=== PATIENT | female | born 1955 | race Hispanic/Latino ===

== ENCOUNTER 2017-10-07 17:26 | Emergency (ER) | payer BC ==
[2017-10-07 17:49] VITALS: BMI 22.4
[2017-10-07 17:52] VITALS: TEMP 98.2; O2SAT 97
--- NOTE | 2017-10-07 18:29 | ED PDOC ---
Arrival/HPI <Frank Tristan - Last Filed: 10/07/17 18:29> - General Historian: Patient, Spouse - History of Present Illness Time/Duration: Prior to Arrival, 1-3 hours Symptom Onset: Sudden Symptom Course: Unchanged <Aiden Mercer - Last Filed: 10/08/17 07:19> - General Chief Complaint: Trauma Time Seen by Provider: 10/07/17 17:30 - History of Present Illness Narrative History of Present Illness (Text): 10/07/17 19:22 62F presents to [facility] ED after mechanical fall x 2 secondary to ETOH intoxication. First fall she lost front tooth, completely avulsed. Second fall Hit head. Denies loss of consciousness, or incontinence. Full ROM of neck, no midline tenderness. Able to converse in full sentences. Denies taking blood thinners, or medication that increases bleeding. PMD: Dr. Mae (Aiden Mercer) Past Medical History - Infectious Disease Hx of Infectious Diseases: None - Tetanus Immunization Tetanus Immunization: Unknown - Reproductive Menopause: Yes - Past Medical History Past Medical History: No Previous - Cardiac Hx Cardiac Disorders: No - Pulmonary Hx Respiratory Disorders: No - Neurological Hx Neurological Disorder: Yes - HEENT Hx HEENT Disorder: No - Renal Hx Renal Disorder: No - Endocrine/Metabolic Hx Endocrine Disorders: No - Hematological/Oncological Hx Blood Transfusions: Yes - Integumentary Hx Dermatological Disorder: No - Musculoskeletal/Rheumatological Hx Musculoskeletal Disorders: Yes Hx Arthritis: Yes Hx Back Pain: Yes (Upper back pain) Hx Degenerative Joint Disease: Yes Hx Falls: Yes Hx Fractures: Yes (10/27 Tibial Plateu Fracture 10/29 Fractured right hip, hip replacement.) Hx Gout: No Hx Herniated Disk: Yes (T7-8 right paracentral disc protrusion, c5-6 disk bulge) Hx Osteoarthritis: Yes Hx Osteomyelitis: No Hx Osteoporosis: Yes Hx Rhabdomyolysis: No Hx Spinal Stenosis: Yes Hx Unsteady Gait: No Other/Comment: 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 - Genitourinary/Gynecological Hx Genitourinary Disorders: No - Psychiatric Hx Psychophysiologic Disorder: No Hx Substance Use: No - Surgical History Hx Amputation: No Hx Appendectomy: No Hx Cholecystectomy: No Hx Gastric Bypass Surgery: No Hx Hysterectomy: No Hx Joint Replacement: No Hx Kidney Transplant: No Hx Liver Transplant: No Hx Mastectomy: No Hx Musculoskeletal Surgery: No Hx Open Heart Surgery: No Hx Orthopedic Surgery: No Hx Splenectomy: No Hx Valve Replacement: No - Anesthesia Hx Anesthesia Reactions: No Hx Malignant Hyperthermia: No - Suicidal Assessment Feels Threatened In Home Enviroment: No <Frank Tristan Floyd - Last Filed: 10/07/17 18:29> - Provider Review Nursing Documentation Reviewed: Yes - Travel History Have you recently traveled outside [place] w/in the past 3 mons?: No - Past History Past History: Non-Contributing <Aiden Mercer - Last Filed: 10/08/17 07:19> Family/Social History Smoking Status: Light Smoker < 10 Cigarettes Daily Hx Alcohol Use: Yes Amount per day: 10 Hx Substance Use: No Hx Substance Use Treatment: No <Frank Tristan - Last Filed: 10/07/17 18:29> - Physician Review Nursing Documentation Reviewed: Yes Family/Social History: Other (non-contributory) <Aiden Mercer - Last Filed: 10/08/17 07:19> Allergies/Home Meds <Frank Tristan Floyd - Last Filed: 10/07/17 18:29> <Aiden Mercer - Last Filed: 10/08/17 07:19> Allergies/Adverse Reactions: Allergies Penicillins Allergy (Verified 10/07/17 17:33) RASH Review of Systems - Physician Review All systems were reviewed & negative as marked: Yes - Review of Systems Constitutional: absent: Fatigue, Weight Change, Fevers, Night Sweats Eyes: absent: Vision Changes, Photophobia ENT: absent: Hearing Changes, Tinnitus, TMJ Pain, Sore Throat, Rhinorrhea Respiratory: absent: SOB, Cough Cardiovascular: absent: Chest Pain, Palpitations Gastrointestinal: absent: Abdominal Pain, Stool Changes, Constipation Genitourinary Female: absent: Dysuria, Frequency Musculoskeletal: absent: Arthralgias, Back Pain Skin: absent: Rash, Pruritis Neurological: absent: Headache, Dizziness, Focal Weakness, Speech Changes Endocrine: absent: Diaphoresis <Aiden Mercer - Last Filed: 10/08/17 07:19> Physical Exam Vital Signs Reviewed: Yes Temperature: Afebrile Blood Pressure: Normal Pulse: Regular Respiratory Rate: Normal Appearance: Positive for: Well-Appearing, Non-Toxic, Comfortable Pain Distress: None Mental Status: Positive for: Alert and Oriented X 3 - Systems Exam Head: Present: Laceration (x2 over left palpebral fissure) Pupils: Present: PERRL Extroacular Muscles: Present: EOMI Mouth: Present: Moist Mucous Membranes, Other (Missing 2 teeth). No: Drooling, Trismus, Normal Teeth Respiratory/Chest: Present: Clear to Auscultation, Good Air Exchange. No: Respiratory Distress, Accessory Muscle Use Cardiovascular: Present: Regular Rate and Rhythm, Normal S1, S2. No: Murmurs, Tachycardic, Bradycardic Abdomen: No: Tenderness, Distention, Peritoneal Signs Back: Present: Normal Inspection. No: CVA Tenderness, Midline Tenderness, Paraspinal Tenderness Upper Extremity: Present: Normal Inspection, NORMAL PULSES, Neurovascularly Intact. No: Cyanosis, Edema Lower Extremity: Present: Normal Inspection, Edema, Normal ROM, Neurovascularly Intact. No: CALF TENDERNESS, Mica's Sign Neurological: Present: GCS=15, Speech Normal Skin: Present: Warm, Laceration (over left palpebral fissure). No: Rashes Psychiatric: Present: Alert, Oriented x 3 <Aiden Mercer - Last Filed: 10/08/17 07:19> Vital Signs Temp Pulse Resp BP Pulse Ox 10/07/17 21:30 69 18 132/70 97 10/07/17 17:50 98.2 F 72 22 128/74 97 Medical Decision Making <Frank Tristan - Last Filed: 10/07/17 18:29> <Aiden Mercer - Last Filed: 10/08/17 07:19> ED Course and Treatment: Seen and examined with resident. 62 y/o F p/w mechanical falls after alcohol use. On exam, laceration over L eyebrow. (Frank Tristan) CT scan of head and Maxillofacial to rule out fx Suture laceration x2 w/ 6-0 prolene w/ simple interruped and 1 vertical mattress Reval, reassess, and dispo Patient and case was discussed in detail, and was signed out to the night EM Physician (Aiden Mercer) - RAD Interpretation Radiology Orders: 10/07/17 18:23 HEAD W/O CONTRAST [CT] Stat MAXILLOFACIAL W/O CONTRAST [CT] Stat - Medication Orders Current Medication Orders: Discontinued Medications Clindamycin HCl (Cleocin) 150 mg PO STAT STA PRN Reason: Protocol Stop: 10/07/17 20:56 Last Admin: 10/07/17 21:20 Dose: 150 mg Disposition/Present on Arrival - Present on Arrival History of DVT/PE: No History of Uncontrolled Diabetes: No Urinary Catheter: No History of Decub. Ulcer: No History Surgical Site Infection Following: None <Frank Tristan - Last Filed: 10/07/17 18:29> - Present on Arrival Any Indicators Present on Arrival: No - Disposition Have Diagnosis and Disposition been Completed?: Yes Disposition Time: 19:00 <Aiden Mercer - Last Filed: 10/08/17 07:19> - Disposition Diagnosis: Facial laceration, Maxillary sinus fracture Disposition: HOME/ ROUTINE Condition: GOOD Discharge Instructions (ExitCare): Laceration Repair With Stitches (DC), Skull and Facial Fractures (DC) Additional Instructions: Take meds as prescribed/follow up with the ear/nose/throat doctor this week/ Sutures to be removed in 5-7 days by your doctor/follow up with your dentist this week as well Prescriptions: Clindamycin [Clindamycin HCl] 150 mg PO QID #28 cap Referrals: Usha Scott, [Primary Care Provider] - Follow up with primary Forms: [employer] (Tuvaluan)
--- NOTE | 2017-10-07 19:34 | PCM.PROC ---
Procedures Attestation:: I certify that I have explained the specified Operation(s) or Procedure(s), risks, benefits and reasonable alternatives to the Patient and/or other person responsible. The opportunity was given to ask questions and all questions answered - Laceration lidocaine 1% simple, single layer linear wound explored left face 6-0 local infiltration simple, interrupted Site: face Side (if applicable): left Size (cm): 5 Description: linear, clean Depth: simple, single layer Anesthesia used: lidocaine 1% Anesthesia technique: local infiltration Amount (mLs): 5 Pre-repair: wound explored, irrigated extensively, deep structures intact Skin layer closed with: other (Prolene) Size: 6-0 Number of sutures: 6 Technique: simple, interrupted (5 simple interruped, 1 vertical mattress)
--- NOTE | 2017-10-07 19:51 | ED PDOC ---
Physical Exam Vital Signs Reviewed: Yes Vital Signs Temp Pulse Resp BP Pulse Ox 10/07/17 17:50 98.2 F 72 22 128/74 97 Temperature: Afebrile Blood Pressure: Normal Pulse: Regular Respiratory Rate: Normal Appearance: Positive for: Well-Appearing, Non-Toxic, Comfortable Pain Distress: None Mental Status: Positive for: Alert and Oriented X 3 Medical Decision Making ED Course and Treatment: 10/07/17 19:48 Patient endorsed to me by Dr. Tristan and resident at 19:00, pending CT head and maxillofacial. Patient presented with trauma to face/head result of a mechanical fall. Patient sustained a laceration which was repaired earlier by resident. Patient admits to drinking alcohol today. She is accompanied by her in the emergency room. On evaluation, patient is alert and oriented. Plan is to discharge home following results of CT which were previously ordered and pending. 10/07/17 21:00 CT Head shows: Brain: Unremarkable. No hemorrhage. No significant white matter disease. No edema. Ventricles: Unremarkable. No ventriculomegaly. Bones/joints: Unremarkable. No acute fracture. Soft tissues: Unremarkable. Sinuses: Unremarkable as visualized. No acute sinusitis. Mastoid air cells: Unremarkable as visualized. No mastoid effusion. Other findings: No acute findings. IMPRESSION: No acute findings. CT Maxillofacial shows: Bones/joints: There is a fracture involving the lateral wall of the left maxillary sinus with slight opacification Soft tissues: Unremarkable. Orbits: Coronal images are not available to evaluate the inferior wall of the orbit. Sinuses: No air-fluid levels. IMPRESSION: There is a fracture involving the lateral wall of the left maxillary sinus with slight opacification. No definite evidence of left inferior orbital wall fracture. On re-evaluation, patient feels better and is in no acute distress. Pt awake, alert, and oriented x3. I have discussed the results and plan with the patient and , who are aware and express understanding. Patient in agreement with plan to be discharged home. Patient is stable for discharge. Patient was instructed to follow up with physician or return if symptoms worsen or new concerning symptoms arise. - RAD Interpretation Radiology Orders: 10/07/17 18:23 HEAD W/O CONTRAST [CT] Stat MAXILLOFACIAL W/O CONTRAST [CT] Stat - Medication Orders Current Medication Orders: Clindamycin HCl (Cleocin) 150 mg PO STAT STA PRN Reason: Protocol Stop: 10/07/17 20:56 Disposition/Present on Arrival - Present on Arrival Any Indicators Present on Arrival: No History of DVT/PE: No History of Uncontrolled Diabetes: No Urinary Catheter: No History of Decub. Ulcer: No History Surgical Site Infection Following: None - Disposition Have Diagnosis and Disposition been Completed?: Yes Diagnosis: Facial laceration, Maxillary sinus fracture Disposition: HOME/ ROUTINE Disposition Time: 20:58 Patient Plan: Discharge Condition: GOOD Discharge Instructions (ExitCare): Laceration Repair With Stitches (DC), Skull and Facial Fractures (DC) Additional Instructions: Take meds as prescribed/follow up with the ear/nose/throat doctor this week/ Sutures to be removed in 5-7 days by your doctor/follow up with your dentist this week as well Prescriptions: Clindamycin [Clindamycin HCl] 150 mg PO QID #28 cap Referrals: LoopItmelvin Scott, [Non-Staff] - Follow up with primary Forms: [employer] (Djiboutian)
[2017-10-07 23:35] VITALS: BP 132/70; PULSE 69; RESP 18
--- NOTE | 2017-10-08 09:13 | CT ---
PROCEDURE: CT HEAD WITHOUT CONTRAST. HISTORY: fall COMPARISON: CT 08/11/2013 TECHNIQUE: Axial computed tomography images were obtained through the head/brain without intravenous contrast. Radiation dose: Total exam DLP = 882 mGy-cm. This CT exam was performed using one or more of the following dose reduction techniques: Automated exposure control, adjustment of the mA and/or kV according to patient size, and/or use of iterative reconstruction technique. FINDINGS: HEMORRHAGE: No intracranial hemorrhage. BRAIN: No mass effect or edema. No atrophy or chronic microvascular ischemic changes. VENTRICLES: Unremarkable. No hydrocephalus. CALVARIUM: Unremarkable. PARANASAL SINUSES: Unremarkable as visualized. No significant inflammatory changes. MASTOID AIR CELLS: Unremarkable as visualized. No inflammatory changes. OTHER FINDINGS: None. IMPRESSION: Normal CT of the Head.
--- NOTE | 2017-10-08 09:16 | CT ---
PROCEDURE: CT MAXILLOFACIAL BONES WITHOUT CONTRAST HISTORY: fall COMPARISON: None TECHNIQUE: Contiguous axial CT images of the maxillofacial bones were obtained. Coronal and sagittal reformats were generated. Radiation dose: Total exam DLP = 778 mGy-cm. This CT exam was performed using one or more of the following dose reduction techniques: Automated exposure control, adjustment of the mA and/or kV according to patient size, and/or use of iterative reconstruction technique. FINDINGS: NASAL BONES: Unremarkable. ORBITS: Unremarkable. PARANASAL SINUSES/ MASTOIDS: Clear. MAXILLA: There is a minimally displaced fracture of the lateral wall of the left maxillary sinus MANDIBLE/ TEMPOROMANDIBULAR JOINTS: Unremarkable. SKULL BASE: Unremarkable. TEMPORAL BONES: Middle ears and mastoid grossly unremarkable. OTHER FINDINGS: The report concurs with the preliminary [facility] report IMPRESSION: Minimally displaced fracture of the lateral wall of the left maxillary sinus
== END 2017-10-07 21:30 | disposition home or self-care (01) ==
LOC: ED 17:26
DX: S01.81XA Laceration without foreign body of other part of head, initial encounter (principal); S02.40DA Maxillary fracture, left side, initial encounter for closed fracture; W19.XXXA Unspecified fall, initial encounter; F17.210 Nicotine dependence, cigarettes, uncomplicated

== ENCOUNTER 2017-10-14 10:21 | Emergency (ER) | payer BC, MEDICARE ==
[2017-10-14 10:21] VITALS: BMI 25.2
[2017-10-14 10:35] VITALS: PULSE 78; RESP 18; TEMP 98.3
--- NOTE | 2017-10-14 11:11 | ED PDOC ---
Arrival/HPI - General Chief Complaint: Suture/Staple Removal Time Seen by Provider: 10/14/17 10:30 Historian: Patient - History of Present Illness Narrative History of Present Illness (Text): 10/14/17 11:08 62yr old female presents today for suture removal from left eyebrow. pt states 7 days ago she tripped and fell injuring the left eye brow. pt states she had sutures placed. pt denies headaches, dizziness, weakness. no cp or sob. denies fever/chills. no other complaints. Past Medical History - Provider Review Nursing Documentation Reviewed: Yes - Travel History Have you recently traveled outside [place] w/in the past 3 mons?: No - Past History Past History: Non-Contributing - Infectious Disease Hx of Infectious Diseases: None - Tetanus Immunization Tetanus Immunization: Unknown - Reproductive Menopause: Yes - Past Medical History Past Medical History: No Previous - Cardiac Hx Cardiac Disorders: No - Pulmonary Hx Respiratory Disorders: No - Neurological Hx Neurological Disorder: Yes - HEENT Hx HEENT Disorder: No - Renal Hx Renal Disorder: No - Endocrine/Metabolic Hx Endocrine Disorders: No - Hematological/Oncological Hx Blood Transfusions: Yes - Integumentary Hx Dermatological Disorder: No - Musculoskeletal/Rheumatological Hx Musculoskeletal Disorders: Yes Hx Arthritis: Yes Hx Back Pain: Yes (Upper back pain) Hx Degenerative Joint Disease: Yes Hx Falls: Yes Hx Fractures: Yes (10/27 Tibial Plateu Fracture 10/29 Fractured right hip, hip replacement.) Hx Gout: No Hx Herniated Disk: Yes (T7-8 right paracentral disc protrusion, c5-6 disk bulge) Hx Osteoarthritis: Yes Hx Osteomyelitis: No Hx Osteoporosis: Yes Hx Rhabdomyolysis: No Hx Spinal Stenosis: Yes Hx Unsteady Gait: No Other/Comment: 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 - Genitourinary/Gynecological Hx Genitourinary Disorders: No - Psychiatric Hx Psychophysiologic Disorder: No Hx Substance Use: No - Surgical History Hx Amputation: No Hx Appendectomy: No Hx Cholecystectomy: No Hx Gastric Bypass Surgery: No Hx Hysterectomy: No Hx Joint Replacement: No Hx Kidney Transplant: No Hx Liver Transplant: No Hx Mastectomy: No Hx Musculoskeletal Surgery: No Hx Open Heart Surgery: No Hx Orthopedic Surgery: No Hx Splenectomy: No Hx Valve Replacement: No - Anesthesia Hx Anesthesia Reactions: No Hx Malignant Hyperthermia: No - Suicidal Assessment Feels Threatened In Home Enviroment: No Family/Social History - Physician Review Nursing Documentation Reviewed: Yes Family/Social History: Unknown Family HX Smoking Status: Light Smoker < 10 Cigarettes Daily Hx Alcohol Use: Yes Amount per day: 10 Hx Substance Use: No Hx Substance Use Treatment: No Allergies/Home Meds Allergies/Adverse Reactions: Allergies Penicillins Allergy (Verified 10/14/17 10:35) RASH Review of Systems - Review of Systems Constitutional: absent: Fatigue, Fevers Eyes: absent: Vision Changes Respiratory: absent: SOB, Cough Cardiovascular: absent: Chest Pain Gastrointestinal: absent: Abdominal Pain, Nausea, Vomiting Skin: Laceration Neurological: absent: Headache, Dizziness Physical Exam Vital Signs Reviewed: Yes Vital Signs Temp Pulse Resp BP Pulse Ox 10/14/17 10:30 98.3 F 78 18 133/79 96 Temperature: Afebrile Blood Pressure: Normal Pulse: Regular Respiratory Rate: Normal Appearance: Positive for: Well-Appearing, Non-Toxic, Comfortable Pain Distress: None Mental Status: Positive for: Alert and Oriented X 3 - Systems Exam Head: Present: Ecchymosis, Laceration (healing laceration over left eyebrow with [address] ). No: Swelling Extroacular Muscles: Present: EOMI Mouth: Present: Moist Mucous Membranes Respiratory/Chest: Present: Clear to Auscultation Cardiovascular: Present: Regular Rate and Rhythm Neurological: Present: GCS=15, Speech Normal Skin: Present: Warm, Dry Psychiatric: Present: Alert, Oriented x 3 Medical Decision Making ED Course and Treatment: 10/14/17 11:10 Patient is nontoxic well-appearing in no distress. Vital signs are stable. suture removal: 6 sutures removed Wound healing well without signs of infection I advised the patient to keep the wound clean and dry apply bacitracin twice daily and return if symptoms worsen persist or if new symptoms develop pt was advised to f/u with the plastic surgeon within the next 2 days. Patient verbalizes understanding of discharge instructions and need for immediate followup. all aspects of this case were discussed the attending of record. Impression: Wound check, suture removal Keep the wound clean and dry Follow up with the plastic surgeon within the next 2 days. Follow up with primary care physician within the next 2 days Return immediately if symptoms worsen persist or if new symptoms develop Disposition/Present on Arrival - Present on Arrival Any Indicators Present on Arrival: No History of DVT/PE: No History of Uncontrolled Diabetes: No Urinary Catheter: No History of Decub. Ulcer: No History Surgical Site Infection Following: None - Disposition Have Diagnosis and Disposition been Completed?: Yes Diagnosis: Visit for suture removal Disposition: HOME/ ROUTINE Disposition Time: 11:25 Patient Plan: Discharge Condition: GOOD Discharge Instructions (ExitCare): Stitches Removal Additional Instructions: keep the wound clean and dry Follow up with the plastic surgeon within the next 2 days. Follow up with primary care physician within the next 2 days Return immediately if symptoms worsen persist or if new symptoms develop Referrals: Zane Bass MD [Primary Care Provider] - Follow up with primary Randy Herron MD [Staff Provider] - Follow up with primary Forms: [employer] (Portuguese)
[2017-10-14 11:33] VITALS: BP 132/78; O2SAT 98
== END 2017-10-14 11:34 | disposition home or self-care (01) ==
LOC: ED 10:21
DX: Z48.02 Encounter for removal of sutures (principal)

== ENCOUNTER 2018-03-21 13:55 | Inpatient (IN) | payer BC, MEDICARE ==
--- NOTE | 2018-03-21 14:04 | ED PDOC ---
Arrival/HPI - General Chief Complaint: Weakness/Neurological Deficit Time Seen by Provider: 03/21/18 13:56 Historian: EMS EM Caveat: Acuity of Condition - Critical Care Critical Care Minutes: 60 minutes Critical Care Time: Unstable - History of Present Illness Narrative History of Present Illness (Text): 03/21/18 13:55 A 62 y/o F w/ h/o alcohol cirrhosis , esophageal varices, spinal stenosis, arthritis, degenerative joint disease, and osteoporosis, is brought in by EMS to the emergency department for altered mental status. Patient was at home when her described her as suddenly becoming unresponsive with complete body convulsions that lasted for approximately 1 minute. Afterwards, patient remained unresponsive to verbal and tactile stimuli with a prolonged post-ictal period. Per EMS, the call was received at 13:10 at the time ti. EMS arrived at patient's home at 13:15 and got patient at 13:35. Patient arrives in the ER at approximately 13:54, and immediately code stroke is called. A more complete HPI is unable to be obtained due to the patient's clinical condition PMD: Dr. Bass Time/Duration: 1/2 hour Symptom Onset: Sudden Symptom Course: Worsening Quality: Unable to Describe Context: Home Past Medical History - Provider Review Nursing Documentation Reviewed: Yes - Travel History Have you recently traveled outside [place] w/in the past 3 mons?: No - Past History Past History: Non-Contributing - Infectious Disease Hx of Infectious Diseases: None - Tetanus Immunization Tetanus Immunization: Unknown - Reproductive Menopause: Yes - Past Medical History Past Medical History: No Previous - Cardiac Hx Cardiac Disorders: No - Pulmonary Hx Respiratory Disorders: No - Neurological Hx Neurological Disorder: Yes - HEENT Hx HEENT Disorder: No - Renal Hx Renal Disorder: No - Endocrine/Metabolic Hx Endocrine Disorders: No - Hematological/Oncological Hx Blood Transfusions: Yes - Integumentary Hx Dermatological Disorder: No - Musculoskeletal/Rheumatological Hx Musculoskeletal Disorders: Yes Hx Arthritis: Yes Hx Back Pain: Yes (Upper back pain) Hx Degenerative Joint Disease: Yes Hx Falls: Yes Hx Fractures: Yes (10/27 Tibial Plateu Fracture 10/29 Fractured right hip, hip replacement.) Hx Gout: No Hx Herniated Disk: Yes (T7-8 right paracentral disc protrusion, c5-6 disk bulge) Hx Osteoarthritis: Yes Hx Osteomyelitis: No Hx Osteoporosis: Yes Hx Rhabdomyolysis: No Hx Spinal Stenosis: Yes Hx Unsteady Gait: No Other/Comment: 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 - Genitourinary/Gynecological Hx Genitourinary Disorders: No - Psychiatric Hx Psychophysiologic Disorder: No Hx Substance Use: No - Surgical History Hx Amputation: No Hx Appendectomy: No Hx Cholecystectomy: No Hx Gastric Bypass Surgery: No Hx Hysterectomy: No Hx Joint Replacement: No Hx Kidney Transplant: No Hx Liver Transplant: No Hx Mastectomy: No Hx Musculoskeletal Surgery: No Hx Open Heart Surgery: No Hx Orthopedic Surgery: No Hx Splenectomy: No Hx Valve Replacement: No - Anesthesia Hx Anesthesia Reactions: No Hx Malignant Hyperthermia: No - Suicidal Assessment Feels Threatened In Home Enviroment: No Family/Social History - Physician Review Nursing Documentation Reviewed: Yes Family/Social History: No Known Family HX Smoking Status: Light Smoker < 10 Cigarettes Daily Hx Alcohol Use: Yes Amount per day: 10 Hx Substance Use: No Hx Substance Use Treatment: No Allergies/Home Meds Allergies/Adverse Reactions: Allergies Penicillins Allergy (Verified 03/21/18 13:59) RASH Home Medications: Home Meds Medication Instructions Recorded Confirmed Omeprazole [Omeprazole] 40 mg PO DAILY 03/21/18 03/21/18 Review of Systems - Review of Systems Systems not reviewed;Unavailable: Altered Mental Status (unresponsive verbally due to possible stroke or seizure) Physical Exam - Physical Exam Physical Exam Limitations: Altered Mental Status (patient is verbally unresponsive at this time upon arrival to ER at 13:54) Vital Signs Reviewed: Yes Vital Signs Temp Pulse Resp BP Pulse Ox 03/21/18 14:30 110 H 19 115/77 100 03/21/18 14:22 112 H 19 141/76 100 03/21/18 14:15 101 H 22 169/96 H 100 03/21/18 13:56 96.0 F L 95 H 22 182/95 H 100 Blood Pressure: Hypertensive Respiratory Rate: Normal Appearance: Positive for: Other (unresponsive) Mental Status: Positive for: other (unresponsive to verbal and tactile stimuli) Finger Stick Blood Glucose: 123 - Systems Exam Pupils: Present: Sluggish, Other (3mm b/l) Respiratory/Chest: Present: Clear to Auscultation, Good Air Exchange. No: Respiratory Distress Cardiovascular: Present: Regular Rate and Rhythm, Normal S1, S2 Abdomen: Present: Normal Bowel Sounds. No: Tenderness, Distention Lower Extremity: Present: Normal Inspection. No: Edema Neurological: Present: Other (Aphasic. Rhythmic beating of the eyes b/l. Minimally responsive to noxious stimuli, no response to verbal stimuli. Moves lower extremities spontaneously) Medical Decision Making ED Course and Treatment: 03/21/18 13:59 Impression: 62 year old female with possible stroke. Differential Diagnosis included but are not limited to: CVA vs. Seizure Plan: --Labs -- EKG --Head CT --Keppra --ABG -- CXR -- Labs -- Ativan --Versed drip -- IV Fluids -- Reassess and disposition Progress Notes: 03/21/18 13:54 Code stroke called at this time upon immediate arrival to the ER. 03/21/18 14:[address] Case discussed with Dr. Nicholas, who believes it is not a stroke but rather a seizure. Requests to be updated about patient. 03/21/18 14:10 Patient arrives immediately back to the ER after CT Head, which reveals hemorrhagic posterior bleed, no midline shift upon interpretation. Awaiting full report. 03/21/18 14:15 Blood pressure is currently 182/95 here in the ER. Cardene drip will be ordered in order to maintain SBP below 140. PROCEDURE: INTUBATION Performed by the emergency provider Time: 14:19 Consent: Discussion of the risks, benefits, and alternatives to the procedure, along with informed consent was precluded by the urgency of the procedure and the patient condition. Timeout: A timeout to verify the correct patient, procedure, and site was performed. Indication: Airway Protection Pre-oxygenation: [id number] Medications: Etomidate & Rocuronium See MAR for details. ETT Size: 7.5 Confirmation: Cords directly visualized as tube passed, good bilateral breath sounds, positive CO2 detector color change, tube fogging, adequate chest rise, improving pulse oximetry reading, improved skin color, and absence of gastric sounds,. ETT Secured: The cuff was inflated and the tube was secured appropriately at a distance of 22 cm at the lip. Post-Procedure: There were no immediate complications. CXR Confirmation: Yes 03/21/2018 14:[address] FINDINGS: BRAIN: Hemorrhage is noted within the medial left occipital lobe measuring approximately 2.8 x 2.8 cm (series 4, image 33) with associated edema/necrosis. This finding exerts mass effect on the atrium of the ventricles anterior laterally. No additional hemorrhage evident. VENTRICLES: No hydrocephalus. CALVARIUM: Unremarkable. PARANASAL SINUSES: Unremarkable as visualized. No significant inflammatory changes. MASTOID AIR CELLS: Unremarkable as visualized. No inflammatory changes. OTHER FINDINGS: None. IMPRESSION: Hemorrhage is noted within the medial left occipital lobe measuring approximately 2.8 x 2.8 cm with associated edema/necrosis. This finding exerts mass effect on the atrium of the ventricles anterior laterally. Location of this hemorrhage is atypical for hypertensive hemorrhage. Considerations include atypical hypertensive hemorrhage, underlying vascular lesion, hemorrhagic tumor is considered less likely. Dictator: Roopa Carreon MD 03/21/18 14:25 Blood pressure now 141/76. Will hold off on Cardene drip for now. 03/21/18 14:[address] Nicholas(neurology), who requests to order MRI w/ and w/ out contrast. He believes bleed may have been caused by mass in the brain, given the vasogenic edema and swelling. He requests patient to receive Keppra 1.5 g given now, 500 q 12hrs. Neurosurgery and ICU have been paged. 03/21/18 14:30 Urinalysis ordered. 03/21/18 14:30 Patient placed under ventilator by respiratory therapist. 03/21/18 14:[address] Samantha Byers(ICU attending) who will come to see patient at bedside. 03/21/18 14:39 Case discussed with neurosurgeon, who states he has no acute surgical interventions available at this time. States to keep patients head elevated 30 degrees. Agrees with critical care management for the patient here in the emergency department at this time. 03/21/18 14:45 Donahue catheter insertion ordered. 03/21/18 14:59 Dr. Samantha Byers, ICU attending, arrives to evaluate patient at bedside. 03/21/18 15:07 Chest X-ray IMPRESSION: The endotracheal tube terminates approximately 3.7 cm above the zahra. Chronic interstitial markings. Patchy left lower lobe atelectasis/infiltrate. Biapical pleural thickening. Dictator: Roopa Carreon MD 03/21/18 15:13 Discussed plan of treatment of patient with Dr. Samantha Byers while here in the ER , and he agrees to accept patient for ICU admission. 03/21/18 15:17 ABG reviewed. Requested respiratory therapist to bring it down to 50% O2 level. 03/21/18 15:[address] Bass(PCP). 03/21/18 16:[address] Bass who accepts patient under his service. Dr. Nicholas at the bedside requesting Versed drip to be titrated to 5mg/hr. - Lab Interpretations Lab Results: 03/21/18 13:55 03/21/18 13:55 Lab Results 03/21/18 14:53: pCO2 35, pO2 497.0 H, HCO3 22.7, ABG pH 7.42, ABG Total CO2 23.8 , ABG O2 Saturation 100.4 H, ABG O2 Content 17.6, ABG Base Excess -1.3, ABG Hemoglobin 11.9, ABG Carboxyhemoglobin 2.2 H, POC ABG HHb (Measured) -0.4 L, ABG Methemoglobin 0.9, ABG O2 Capacity 17.5, Hgb O2 Saturation 97.2, FiO2 100.0 03/21/18 14:30: Urine Color Yellow, Urine Appearance Clear, Urine pH 6.0, Ur Specific [place] 1.025, Urine Protein 100 H, Urine Glucose (UA) Negative, Urine Ketones Negative, Urine Blood Negative, Urine Nitrate Negative, Urine Bilirubin Negative, Urine Urobilinogen 1.0 H, Ur Leukocyte Esterase Negative, Urine RBC 0 - 2, Urine WBC 1 - 3, Ur Epithelial Cells 4 - 5, Amorphous Sediment Few, Urine Bacteria Many, Hyaline Casts 0 - 2, Fine Granular Casts 0 - 2, Urine Other Uyeast 03/21/18 13:55: Blood Type O POSITIVE, Antibody Screen Negative, BBK History Checked Patient has bt 03/21/18 13:55: Sodium 142, Potassium 4.2, Chloride 107, Carbon Dioxide 22, Anion Gap 16, BUN 5 L, Creatinine 0.5 L, Est GFR ( Amer) > 60, Est GFR ( Non-Af Amer) > 60, Random Glucose 153 H, Calcium 8.6, Total Bilirubin 3.4 H, AST 92 H, ALT 32, Alkaline Phosphatase 205 H, Troponin I < 0.01, Total Protein 8.7 H, Albumin 3.7, Globulin 5.0, Albumin/Globulin Ratio 0.7 L, Triglycerides 100, Cholesterol 175, LDL Cholesterol Direct 78, HDL Cholesterol 55 03/21/18 13:55: PT 16.4 H, INR 1.43, APTT 37.5 H 03/21/18 13:55: WBC 6.7 D, RBC 4.10, Hgb 13.1, Hct 38.9, MCV 94.9, MCH 32.0, MCHC 33.7, RDW 16.0 H, Plt Count 75 L, MPV 10.4, Gran % 65.3, Lymph % (Auto) 22.3, [place] % (Auto) 9.5 H, Eos % (Auto) 2.3, Baso % (Auto) 0.6, Gran # 4.35, Lymph # (Auto) 1.5, [place] # (Auto) 0.6, Eos # (Auto) 0.2, Baso # (Auto) 0.04 I have reviewed the lab results: Yes - RAD Interpretation Radiology Orders: 03/21/18 13:59 CTA HEAD/NECK CODE STROKE [CT] Stat HEAD W/O (CODE STROKE) [CT] Stat CHEST PORTABLE [RAD] Stat - Medication Orders Current Medication Orders: Sodium Chloride (Sodium Chloride 0.9%) 1,000 mls @ 100 mls/hr IV .Q10H STEVEN Last Admin: 03/21/18 14:29 Dose: 100 mls/hr eMAR Start Stop Document 03/21/18 14:29 SRE (Rec: 03/21/18 14:29 SRE [id number]) Intravenous Solution Start Date 03/21/18 Start Time 14:29 Midazolam 100 mg/100ml in NS (Midazolam 100 Mg/100ml In Ns) 100 mg in 100 mls @ 1 mls/hr IV .Q24H PRN; Protocol; 1 MG/HR PRN Reason: Seizure activity Levetiracetam 500 mg/ Sodium (Chloride) 105 mls @ 460 mls/hr IV Q12 STEVEN Discontinued Medications Levetiracetam 1,500 mg/ Sodium (Chloride) 115 mls @ 460 mls/hr IV ONCE ONE Stop: 03/21/18 14:41 Last Admin: 03/21/18 15:18 Dose: 460 mls/hr eMAR Start Stop Document 03/21/18 15:18 SRE (Rec: 03/21/18 15:18 SRE [id number]) Intravenous Solution Start Date 03/21/18 Start Time 15:00 End Date 03/21/18 End time 16:00 Total Infusion Time 60 Dexamethasone 10 mg/ Sodium (Chloride) 52.5 mls @ 150 mls/hr IV ONCE ONE Stop: 03/21/18 14:50 Last Admin: 03/21/18 15:02 Dose: 150 mls/hr eMAR Start Stop Document 03/21/18 15:02 SRE (Rec: 03/21/18 15:03 SRE [id number]) Intravenous Solution Start Date 03/21/18 Start Time 15:00 End Date 03/21/18 End time 15:30 Total Infusion Time 30 Lorazepam (Ativan) 2 mg IVP ONCE ONE PRN Reason: Protocol Stop: 03/21/18 14:06 Last Admin: 03/21/18 14:32 Dose: Lorazepam (Ativan) 2 mg IVP ONCE ONE PRN Reason: Protocol Stop: 03/21/18 15:38 rTPA Inclusion/Exclusion - Refusal of Treatment Patient Refused Treatment: No - Inclusion Criteria for Altepase Patient is 18 years or Older: Yes The Clinical Diagnosis of Ischemic Stroke That is Causing a Potentially Disabling Neurological Deficit: No Time of Onset is Well Established to be Less Than 270 Minute Before Treatment Would Begin: Yes Risk/Benefit Discussed With Patient/Family Member Present: Yes - Exclusion Criteria for Altepase Uncontrolled Hypertension at Time of Treatment (Systolic BP above 185 or Diastolic BP above 110 mmHg): Yes Active Internal Bleeding: Yes Known Bleeding Diathesis Including but Not Limited to: Platelets Below 100,000/ mm,PTT Above 40 sec After Heparin Use, Current Use of Oral Anitcoagulant With INR Greater Than 1.7 or PT Greater Than 15 secs: No Evidence of an Intracranial Hemorrhage: Yes Evidence of Major Acute Infarct With Signs Greater Than 1/3 MCA Territory: No Suspicion of Subarachnoid Hemorrhage on Pretreatment Evaluation Even if CT Head Negative For Hemorrhage: No - Warning to TPA With Conditions Following Conditions Weighed Against Anticipated Benefit: Yes Condition: Seizure at Onset of Stroke NIHSS Stroke Scale 3 - Date/Time Evaluation Performed Date Performed: 03/21/18 Time Performed: 13:45 When Was NIHSS Performed: Code Stroke - How Severe is the Stroke Level of Consciousness: 3=Unresponsive LOC to Questions: 2=Neither correct LOC to commands: 2=Neither correct Best Gaze: 0=Normal Visual: 0=No visual loss Facial: 0=Normal Motor Arm - Left: 4=No movement Motor Arm - Right: 4=No movement Motor Leg - Left: 4=No movement Motor Leg - Right: 4=No movement Limb Ataxia: 0=Absent Sensory: 0=Normal Best Language: 2=Severe aphasia Dysarthia: 2=Severe, near unintelligible or worse Extinction & Inattention (Neglect): 2=Profound neglect(does not recognize own hand or orients to one side) Score: 29 Severity Of Stroke: 21-42 = Severe Stroke - Scribe Statement The provider has reviewed the documentation as recorded by the Luis Alberto Russell Provider Scribe Attestation: All medical record entries made by the [place] were at my direction and personally dictated by me. I have reviewed the chart and agree that the record accurately reflects my personal performance of the history, physical exam, medical decision making, and the department course for this patient. I have also personally directed, reviewed, and agree with the discharge instructions and disposition. Disposition/Present on Arrival - Present on Arrival Any Indicators Present on Arrival: No History of DVT/PE: No History of Uncontrolled Diabetes: No Urinary Catheter: No History of Decub. Ulcer: No History Surgical Site Infection Following: None - Disposition Have Diagnosis and Disposition been Completed?: Yes Diagnosis: Intracranial hemorrhage, Seizure Disposition: HOSPITALIZED Disposition Time: 15:15 Patient Plan: ICU Condition: SERIOUS Forms: [employer] (Ukrainian)
[2018-03-21 14:06] LABS: BASO # 0.04 K/mm3 (0.0-2.0); BASO % 0.6 % (0.0-3.0); EOS # 0.2 (0.0-0.7); EOS % 2.3 % (1.5-5.0); GRAN # 4.35 (1.4-6.5); GRAN % 65.3 % (50.0-68.0); HEMOGLOBIN 13.1 g/dL (12.0-16.0); LYMPH # 1.5 (1.2-3.4); LYMPH % 22.3 % (22.0-35.0); MEAN CELL VOLUME 94.9 fl (80.0-105.0); MEAN CORPUSCULAR HGB CONC 33.7 g/dl (31.0-37.0); MEAN PLATELET VOLUME 10.4 fl (7.0-11.0); MONO # 0.6 (0.1-0.6); MONO % 9.5 % (1.0-6.0); RBC 4.1 10^6/uL (3.5-6.1); WHITE BLOOD COUNT 6.7 10^3/ul (4.5-11.0)
[2018-03-21 14:15] LABS: INR 1.43; PARTIAL THROMBOPLASTIN TIME 37.5 Seconds (25.1-36.5); PROTHROMBIN TIME 16.4 SECONDS (9.4-12.5)
[2018-03-21] MEDS ORDERED: Etomidate 20 mg/10ml Inj IV ONE (14:15)
[2018-03-21] MEDS ORDERED: Rocuronium 10 mg/ml (5 ml) ONE (14:16)
[2018-03-21 14:17] LABS: ALB/GLOB RATIO 0.7 (1.1-1.8); ALBUMIN 3.7 g/dL (3.0-4.8); ALT/SGPT 32 U/L (7-56); AST/SGOT 92 U/L (14-36); BLOOD UREA NITROGEN 5 mg/dL (7-21); CALCIUM 8.6 mg/dL (8.4-10.5); GFR NON-AFRICAN AMERICAN > 60; HDL CHOLESTEROL 55 mg/dL (29-60)
--- NOTE | 2018-03-21 14:25 | CT ---
Date of service: 03/21/2018 PROCEDURE: CT HEAD WITHOUT CONTRAST. HISTORY: Code Stroke COMPARISON: Noncontrast head CT performed 10/07/17 TECHNIQUE: Axial computed tomography images were obtained through the head/brain without intravenous contrast. Radiation dose: Total exam DLP = 786.95 mGy-cm. This CT exam was performed using one or more of the following dose reduction techniques: Automated exposure control, adjustment of the mA and/or kV according to patient size, and/or use of iterative reconstruction technique. FINDINGS: BRAIN: Hemorrhage is noted within the medial left occipital lobe measuring approximately 2.8 x 2.8 cm (series 4, image 33) with associated edema/necrosis. This finding exerts mass effect on the atrium of the ventricles anterior laterally. No additional hemorrhage evident. VENTRICLES: No hydrocephalus. CALVARIUM: Unremarkable. PARANASAL SINUSES: Unremarkable as visualized. No significant inflammatory changes. MASTOID AIR CELLS: Unremarkable as visualized. No inflammatory changes. OTHER FINDINGS: None. IMPRESSION: Hemorrhage is noted within the medial left occipital lobe measuring approximately 2.8 x 2.8 cm with associated edema/necrosis. This finding exerts mass effect on the atrium of the ventricles anterior laterally. Location of this hemorrhage is atypical for hypertensive hemorrhage. Considerations include atypical hypertensive hemorrhage, underlying vascular lesion, hemorrhagic tumor is considered less likely. Case discussed with Arley Omalley on 03/21/18 at 2:21 p.m.
[2018-03-21 14:27] LABS: LDL CHOLESTEROL 78 mg/dL (0-129)
[2018-03-21] MEDS ORDERED: levETIRAcetam 1,500 MG in Sodium Chloride 0.9% 100 ML IV ONE (14:27)
[2018-03-21] MEDS ORDERED: Dexamethasone 10 MG in Sodium Chloride 0.9% 50 ML IV ONE (14:29)
[2018-03-21] MEDS: Sodium Chloride 0.9% 1,000 ML IV SCH (14:29)
[2018-03-21 14:30] LABS: TROPONIN I < 0.01 ng/mL
[2018-03-21 14:53] LABS: URINE BILIRUBIN NEGATIVE (NEGATIVE); URINE BLOOD NEGATIVE (NEGATIVE); URINE GLUCOSE (UA) NEGATIVE (NEGATIVE); URINE LEUKOCYTE ESTERASE NEGATIVE Leu/uL (NEGATIVE); URINE PROTEIN 100 mg/dL (<30 mg/dL)
[2018-03-21 14:56] LABS: URINE APPEARANCE CLEAR (CLEAR); URINE COLOR YELLOW (YELLOW)
[2018-03-21 15:08] LABS: ARTERIAL BLOOD GAS HCO3 22.7 mmol/L (21-28); ARTERIAL BLOOD GAS HEMOGLOBIN 11.9 g/dL (11.7-17.4); ARTERIAL BLOOD GAS O2 CAPACITY 17.5 mL/dl (16-24); ARTERIAL BLOOD GAS O2 CONTENT 17.6 ML/dl (15-23); ARTERIAL BLOOD GAS O2 SAT 100.4 % (95-98); ARTERIAL BLOOD GAS PCO2 35 mm/Hg (35-45); ARTERIAL BLOOD GAS PH 7.42 (7.35-7.45); ARTERIAL BLOOD GAS TCO2 23.8 mmol.L (22-28)
--- NOTE | 2018-03-21 15:08 | RAD ---
HISTORY: Code Stroke COMPARISON: Chest x-ray performed 07/14/15 TECHNIQUE: Chest, one view. FINDINGS: The endotracheal tube terminates approximately 3.7 cm above the zahra. LUNGS: Chronic interstitial markings. Patchy medial left lower lobe atelectasis/ infiltrate. Biapical pleural thickening. Please note that chest x-ray has limited sensitivity for the detection of pulmonary masses. PLEURA: No significant pleural effusion identified. No definite pneumothorax . CARDIOVASCULAR: Borderline cardiomegaly. OSSEOUS STRUCTURES: Degenerative changes. Osseous demineralization. VISUALIZED UPPER ABDOMEN: Unremarkable. OTHER FINDINGS: None. IMPRESSION: The endotracheal tube terminates approximately 3.7 cm above the zahra. Chronic interstitial markings. Patchy medial left lower lobe atelectasis/ infiltrate. Biapical pleural thickening.
[2018-03-21 15:22] LABS: URINE AMORPHOUS SEDIMENT FEW; URINE BACTERIA MANY (NEG); URINE FINE GRANULAR CAST 0 - 2 /hpf (0-2); URINE HYALINE CAST 0 - 2 /hpf; URINE RBC 0 - 2 /hpf (0-2)
--- NOTE | 2018-03-21 15:23 | CP.PCM.CON ---
<PamelaLucero - Last Filed: 03/21/18 16:32> History of Present Illness - History of Present Illness History of Present Illness: Lucero Santiago, PGY2, ICU Consult Note for Dr Samantha Byers: CC: seizure, unresponsive 62 year old female, with PMH EtOH abuse, Cirrhosis, esophageal varices ( requiring banding in 2015), thrombocytopenia, spinal stenosis, arthritis, degenerative joint disease, brought in by EMS, for unresponsiveness s/p seizure. Patient currently intubated, unresponsive. Most HPI obtained from prior records, at bedside, ED staff. As per , patient was in her usual state of health until 1:10 PM this afternoon, where she started shaking for 1 min, then became unresponsive. Patient had no fevers, nausea, vomiting, bowel incontinence, headache, cp, abdominal pain, urinary symptoms prior to the episode. No recent travel or sick contacts. As per , patient has not had a seizure episode before. Patient quit alcohol 3-4 months ago. Denies falls/ hitting head. In ED, patient was afebrile, hypertensive. CT head showed left occipital lobe hemorrhage, 2.8x2.8 cm. Given Decadron 10 mg, Keppra loading dose 1.5 gm, and ativan 2 mg. Neurology and Neurosurgery on board. No acute surgical intervention. Patient noted to have continued twitching, started on Versed drip. ROS limited as patient is intubated/AMS. PMH: EtOH abuse, Cirrhosis, esophageal varices (requiring banding in 2015), thrombocytopenia, spinal stenosis, arthritis, degenerative joint disease PSH: prior hip/orthopedic surgery All: PCN FHx unable to obtain SHx prior etoh abuse, quit 2-3 months ago. Currently smokes 2-3 cigg/day for many years. No recreational drug use. Lives with . Independent with ADLs. Review of Systems - Review of Systems Systems not reviewed;Unavailable: Altered Mental Status, Intubated Past Patient History - Infectious Disease Hx of Infectious Diseases: None - Tetanus Immunizations Tetanus Immunization: Unknown - Past Social History Smoking Status: Light Smoker < 10 Cigarettes Daily - CARDIAC Hx Cardiac Disorders: No - PULMONARY Hx Respiratory Disorders: No - NEUROLOGICAL Hx Neurological Disorder: Yes - HEENT Hx HEENT Problems: No - RENAL Hx Chronic Kidney Disease: No - ENDOCRINE/METABOLIC Hx Endocrine Disorders: No - HEMATOLOGICAL/ONCOLOGICAL Hx Blood Transfusions: Yes - INTEGUMENTARY Hx Dermatological Problems: No - MUSCULOSKELETAL/RHEUMATOLOGICAL Hx Musculoskeletal Disorders: Yes Hx Arthritis: Yes Hx Back Pain: Yes (Upper back pain) Hx Degenerative Joint Disease: Yes Hx Falls: Yes Hx Fractures: Yes (10/27 Tibial Plateu Fracture 10/29 Fractured right hip, hip replacement.) Hx Gout: No Hx Herniated Disk: Yes (T7-8 right paracentral disc protrusion, c5-6 disk bulge) Hx Osteoarthritis: Yes Hx Osteomyelitis: No Hx Osteoporosis: Yes Hx Rhabdomyolysis: No Hx Spinal Stenosis: Yes Hx Unsteady Gait: No Other/Comment: 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 - GENITOURINARY/GYNECOLOGICAL Hx Genitourinary Disorders: No - PSYCHIATRIC Hx Psychophysiologic Disorder: No Hx Substance Use: No - SURGICAL HISTORY Hx Amputation: No Hx Appendectomy: No Hx Cholecystectomy: No Hx Gastric Bypass Surgery: No Hx Hysterectomy: No Hx Joint Replacement: No Hx Kidney Transplant: No Hx Liver Transplant: No Hx Mastectomy: No Hx Musculoskeletal Surgery: No Hx Open Heart Surgery: No Hx Orthopedic Surgery: No Hx Splenectomy: No Hx Valve Replacement: No - ANESTHESIA Hx Anesthesia Reactions: No Hx Malignant Hyperthermia: No Meds Allergies/Adverse Reactions: Allergies Allergy/AdvReac Type Severity Reaction Status Date / Time Penicillins Allergy RASH Verified 03/21/18 13:59 - Medications Medications: Current Medications Sodium Chloride (Sodium Chloride 0.9%) 1,000 mls @ 100 mls/hr IV .Q10H [facility] Last Admin: 03/21/18 14:29 Dose: 100 mls/hr Midazolam 100 mg/100ml in NS (Midazolam 100 Mg/100ml In Ns) 100 mg in 100 mls @ 1 mls/hr IV .Q24H PRN; Protocol; 1 MG/HR PRN Reason: Seizure activity Physical Exam - Constitutional Appears: Toxic, Older Than Stated Age Additional comments: + b/l hands, leg twitching noted - Head Exam Head Exam: NORMOCEPHALIC - Eye Exam Additional comments: sluggish pupil reaction b/l - ENT Exam ENT Exam: Mucous Membranes Moist - Neck Exam Additional comments: intubated, difficult to assess - Respiratory Exam Respiratory Exam: Clear to Auscultation Bilateral. absent: Rhonchi, Wheezes Additional comments: intubated on PRVC - Cardiovascular Exam Cardiovascular Exam: RRR, +S1, +S2. absent: Systolic Murmur - GI/Abdominal Exam GI & Abdominal Exam: Normal Bowel Sounds, Soft. absent: Distended, Firm, Guarding, Organomegaly, Rebound, Rigid - Extremities Exam Extremities exam: Positive for: normal inspection. Negative for: calf tenderness, pedal edema - Back Exam Back exam: NORMAL INSPECTION - Neurological Exam Neurological exam: Altered - Skin Skin Exam: Dry, Normal Color, Warm Results - Vital Signs Recent Vital Signs: Last Vital Signs Temp 96.0 F L 03/21/18 13:56 Pulse 110 H 03/21/18 14:30 Resp 19 03/21/18 14:30 BP 115/77 03/21/18 14:30 Pulse Ox 100 03/21/18 14:30 - Labs Result Diagrams: 03/21/18 13:55 03/21/18 13:55 Labs: Laboratory Results - last 24 hr 03/21/18 03/21/18 03/21/18 13:55 13:55 13:55 WBC 6.7 D RBC 4.10 Hgb 13.1 Hct 38.9 MCV 94.9 MCH 32.0 MCHC 33.7 RDW 16.0 H Plt Count 75 L MPV 10.4 Gran % 65.3 Lymph % (Auto) 22.3 Dare % (Auto) 9.5 H Eos % (Auto) 2.3 Baso % (Auto) 0.6 Gran # 4.35 Lymph # (Auto) 1.5 Dare # (Auto) 0.6 Eos # (Auto) 0.2 Baso # (Auto) 0.04 PT 16.4 H INR 1.43 APTT 37.5 H pCO2 pO2 HCO3 ABG pH ABG Total CO2 ABG O2 Saturation ABG O2 Content ABG Base Excess ABG Hemoglobin ABG Carboxyhemoglobin POC ABG HHb (Measured) ABG Methemoglobin ABG O2 Capacity Hgb O2 Saturation FiO2 Sodium 142 Potassium 4.2 Chloride 107 Carbon Dioxide 22 Anion Gap 16 BUN 5 L Creatinine 0.5 L Est GFR ( Amer) > 60 Est GFR (Non-Af Amer) > 60 Random Glucose 153 H Calcium 8.6 Total Bilirubin 3.4 H AST 92 H ALT 32 Alkaline Phosphatase 205 H Troponin I < 0.01 Total Protein 8.7 H Albumin 3.7 Globulin 5.0 Albumin/Globulin Ratio 0.7 L Triglycerides 100 Cholesterol 175 LDL Cholesterol Direct 78 HDL Cholesterol 55 Urine Color Urine Appearance Urine pH Ur Specific [place] Urine Protein Urine Glucose (UA) Urine Ketones Urine Blood Urine Nitrate Urine Bilirubin Urine Urobilinogen Ur Leukocyte Esterase Urine RBC Urine WBC Ur Epithelial Cells Amorphous Sediment Urine Bacteria Hyaline Casts Fine Granular Casts Urine Other Blood Type Antibody Screen BBK History Checked 03/21/18 03/21/18 03/21/18 13:55 14:30 14:53 WBC RBC Hgb Hct MCV MCH MCHC RDW Plt Count MPV Gran % Lymph % (Auto) Dare % (Auto) Eos % (Auto) Baso % (Auto) Gran # Lymph # (Auto) Dare # (Auto) Eos # (Auto) Baso # (Auto) PT INR APTT pCO2 35 pO2 497.0 H HCO3 22.7 ABG pH 7.42 ABG Total CO2 23.8 ABG O2 Saturation 100.4 H ABG O2 Content 17.6 ABG Base Excess -1.3 ABG Hemoglobin 11.9 ABG Carboxyhemoglobin 2.2 H POC ABG HHb (Measured) -0.4 L ABG Methemoglobin 0.9 ABG O2 Capacity 17.5 Hgb O2 Saturation 97.2 FiO2 100.0 Sodium Potassium Chloride Carbon Dioxide Anion Gap BUN Creatinine Est GFR ( Amer) Est GFR (Non-Af Amer) Random Glucose Calcium Total Bilirubin AST ALT Alkaline Phosphatase Troponin I Total Protein Albumin Globulin Albumin/Globulin Ratio Triglycerides Cholesterol LDL Cholesterol Direct HDL Cholesterol Urine Color Yellow Urine Appearance Clear Urine pH 6.0 Ur Specific [place] 1.025 Urine Protein 100 H Urine Glucose (UA) Negative Urine Ketones Negative Urine Blood Negative Urine Nitrate Negative Urine Bilirubin Negative Urine Urobilinogen 1.0 H Ur Leukocyte Esterase Negative Urine RBC 0 - 2 Urine WBC 1 - 3 Ur Epithelial Cells 4 - 5 Amorphous Sediment Few Urine Bacteria Many Hyaline Casts 0 - 2 Fine Granular Casts 0 - 2 Urine Other Uyeast Blood Type O POSITIVE Antibody Screen Negative BBK History Checked Patient has bt Assessment & Plan - Assessment and Plan (Free Text) Assessment: 62 year old female with PMH cirrhosis, esophageal varices requiring banding, spinal stenosis, arthritis, alcohol abuse, presents to [facility] unresponsive after a seizure at home, requiring intubation in ED, given 1.5 g loading dose of Keppra and started on Versed drip: Neuro : Unresponsive, + twitching body movements noted. Started on Versed drip at 1 mg/ hr. Loading dose Keppra give in ED, started on keppra 500 mg IV BID as per Neuro dr Nicholas. - Seizure precautions, neuro checks. - CT head showed hemorrhage within the medial left occipital lobe measuring approximately 2.8 x 2.8 cm with associated edema/necrosis. This finding exerts mass effect on the atrium of the ventricles anterior laterally. Location of this hemorrhage is atypical for hypertensive hemorrhage. Considerations include atypical hypertensive hemorrhage, underlying vascular lesion, hemorrhagic tumor is considered less likely. - will keep BP goals: SBP 120-140/80-90. Consider cardene drip if needed. - Neurosurgery on board. No acute surgical intervention. Keep HOB>30 degrees. CV: Hypertensive initially in ED. Now BP 115/77. Keep BP goal 120-140/80-90. Hemodynamically stable. Cont to monitor. Pulm: intubated on PRVC mode. Maintain O2 sat>92-94% Continue with HOB elevation> 35 degrees, aspiration precautions. Continue with protected lung ventilation strategies with TV of 6 ml/kg of IBW, plateau pressure less than 35, head of bed elevation above 35 degrees, pulm toileting GI: NPO. Continue with Protonix. Renal : BUN/Cr 16/0.5. Replace lytes, maintain euvolemia. Continue to monitor. ID: Afebrile, no leukocytosis. - sent for blood culture, urine culture, procal, UA - CXR Chronic interstitial markings. Patchy left lower lobe atelectasis/ infiltrate. Biapical pleural thickening. - monitor Endo: Maintain euglycemia. Heme: Hgb stable. Platelets 75. Patient has a history of thrombocytopenia. Giving 2 units of platelets now. Maintain platelets>100,000. Cont to monitor. DVT ppx - SCDs in setting of brain hemorrhage GI ppx - Protonix Case seen and discussed with Dr Samantha Byers. Fiorella Santiago, PGY2 <Samantha Byers - Last Filed: 03/21/18 17:13> Meds - Medications Medications: Current Medications Sodium Chloride (Sodium Chloride 0.9%) 1,000 mls @ 100 mls/hr IV .Q10H [facility]EVEN Last Admin: 03/21/18 14:29 Dose: 100 mls/hr Midazolam 100 mg/100ml in NS (Midazolam 100 Mg/100ml In Ns) 100 mg in 100 mls @ 1 mls/hr IV .Q24H PRN; Protocol; 1 MG/HR PRN Reason: Seizure activity Last Admin: 03/21/18 16:00 Dose: 1 mg/hr, 1 mls/hr Levetiracetam 500 mg/ Sodium (Chloride) 105 mls @ 460 mls/hr IV Q12 [facility]EVEN Pantoprazole Sodium (Protonix Inj) 40 mg IVP DAILY STEVEN Results - Vital Signs Recent Vital Signs: Last Vital Signs Temp 97.4 F L 03/21/18 16:26 Pulse 72 03/21/18 16:26 Resp 20 03/21/18 16:26 BP 118/72 03/21/18 16:26 Pulse Ox 100 03/21/18 16:26 - Labs Result Diagrams: 03/21/18 13:55 03/21/18 13:55 Addendum Addendum: 03/21/18 17:12 ICU Attending Addendum: Patient seen and examined. Case reviewed on round with housestaff. Agree with resident note above with the following additions/exceptions: 62F with EtOH abuse, cirrhosis, esophageal varices (s/p banding 2014), thrombocytopenia admitted with seziures, intracranial hemorrhage now intubated. Her was with her around 1pm and said she began turning her ipad around repetitively. He kept asking her what was wrong with her ipad but she did not respond. She then shrieked and then began to shake for about a minute followed by unresponsiveness. She did not grab her head or localize to any area. She did not fall, no head trauma. EMD called, in the ED code stroke called as CT head showed left occipital lobe hemorrhage, 2.8x2.8 cm. Etiology unclear. Is not consistent with hypertensive stroke. No history of trauma. Possible underlying mass/met? May still be drinking and how having etoh w/d seizure For now will cont to provide supportive care HOB > 30 degrees Keep BP 140-120 systolic Avoid hypertension Neuro checks q hour On my exam, she was twitching and possible seizing, status? Will use versed drip, Ativan prn and load with keppra while awaiting Neuro consult Repeat CT head in 12 hours without contrast MRI/MRA in 24 hours likely EEG If still appears to be seizing, will need to upgrade antieplieptics (phenobarb) Keep intubated, on low VT ventilation ABG shows super-oxygenation, titrate down Transfuse plat with goal > 100 for ICH PPI for gi ppx and hx of esoph varicies Rest of care as noted above. Samantha Byers MD [employer] Critical care time : 40 mins
[2018-03-21] MEDS: Midazolam 100 mg/100ml in NS 100 MG/100 ML SOL IV PRN (16:00)
--- NOTE | 2018-03-21 16:28 | CP.PCM.CON ---
History of Present Illness - History of Present Illness History of Present Illness: Neurology Consultation Note: Mrs. Collado is a 62-year-old woman with no significant past medical history, who was at home with her , using her iPad, when she started to behave in a strange manner. She was noted to be spinning her iPad around and when she was asked if there was anything wrong, she did not respond. She suddenly fell to the ground, screamed loudly, and began convulsing for about 2-3 minutes. Her lips were pale. Then she stopped convulsing and was unconscious and non- responsive. EMS was called and noted that the patient's eyes were "rolled back ". She was still twitching slightly. She was brought to the ED. I was called and recommended 2-4 mg of Ativan IV and STAT CT scan of the head. The CT head showed a moderate sided left occipital lobe infarct with significant edema surrounding it and a necrotic appearing center. There was not much midline shift and no evidence of impending herniation or hydrocephalus. Neurosurgery was consulted and recommended against any surgical intervention. The patient was loaded with Keppra 1500 mg IV once and started on a Versed drip after requiring intubation for airway protection. When I saw her, she was sedated and had slight eye-lid twitching. Her was at bedside and provided the history. Review of Systems - Review of Systems Systems not reviewed;Unavailable: Intubated All systems: reviewed and no additional remarkable complaints except Past Patient History - Infectious Disease Hx of Infectious Diseases: None - Tetanus Immunizations Tetanus Immunization: Unknown - Past Social History Smoking Status: Light Smoker < 10 Cigarettes Daily - CARDIAC Hx Cardiac Disorders: No - PULMONARY Hx Respiratory Disorders: No - NEUROLOGICAL Hx Neurological Disorder: Yes - HEENT Hx HEENT Problems: No - RENAL Hx Chronic Kidney Disease: No - ENDOCRINE/METABOLIC Hx Endocrine Disorders: No - HEMATOLOGICAL/ONCOLOGICAL Hx Blood Transfusions: Yes - INTEGUMENTARY Hx Dermatological Problems: No - MUSCULOSKELETAL/RHEUMATOLOGICAL Hx Musculoskeletal Disorders: Yes Hx Arthritis: Yes Hx Back Pain: Yes (Upper back pain) Hx Degenerative Joint Disease: Yes Hx Falls: Yes Hx Fractures: Yes (10/27 Tibial Plateu Fracture 10/29 Fractured right hip, hip replacement.) Hx Gout: No Hx Herniated Disk: Yes (T7-8 right paracentral disc protrusion, c5-6 disk bulge) Hx Osteoarthritis: Yes Hx Osteomyelitis: No Hx Osteoporosis: Yes Hx Rhabdomyolysis: No Hx Spinal Stenosis: Yes Hx Unsteady Gait: No Other/Comment: 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 - GENITOURINARY/GYNECOLOGICAL Hx Genitourinary Disorders: No - PSYCHIATRIC Hx Psychophysiologic Disorder: No Hx Substance Use: No - SURGICAL HISTORY Hx Amputation: No Hx Appendectomy: No Hx Cholecystectomy: No Hx Gastric Bypass Surgery: No Hx Hysterectomy: No Hx Joint Replacement: No Hx Kidney Transplant: No Hx Liver Transplant: No Hx Mastectomy: No Hx Musculoskeletal Surgery: No Hx Open Heart Surgery: No Hx Orthopedic Surgery: No Hx Splenectomy: No Hx Valve Replacement: No - ANESTHESIA Hx Anesthesia Reactions: No Hx Malignant Hyperthermia: No Meds Allergies/Adverse Reactions: Allergies Allergy/AdvReac Type Severity Reaction Status Date / Time Penicillins Allergy RASH Verified 03/21/18 13:59 - Medications Medications: Current Medications Sodium Chloride (Sodium Chloride 0.9%) 1,000 mls @ 100 mls/hr IV .Q10H [facility] Last Admin: 03/21/18 14:29 Dose: 100 mls/hr Midazolam 100 mg/100ml in NS (Midazolam 100 Mg/100ml In Ns) 100 mg in 100 mls @ 1 mls/hr IV .Q24H PRN; Protocol; 1 MG/HR PRN Reason: Seizure activity Levetiracetam 500 mg/ Sodium (Chloride) 105 mls @ 460 mls/hr IV Q12 [facility] Physical Exam - Neurological Exam Additional comments: Intubated, sedated, pupils are reactive, corneals are positive, breathing over the ventilator. Brainstem function is intact. Does not withdraw to pain. Results - Vital Signs Recent Vital Signs: Last Vital Signs Temp 96 F L 03/21/18 16:00 Pulse 79 03/21/18 16:00 Resp 20 03/21/18 16:00 BP 126/27 L 03/21/18 16:00 Pulse Ox 100 03/21/18 16:00 - Labs Result Diagrams: 03/21/18 13:55 03/21/18 13:55 Assessment & Plan - Assessment and Plan (Free Text) Assessment: The patient is a 62-year-old woman who was in status epilepticus after left occipital lobe intracerebral hemorrhage. Plan: Admit to ICU and obtain repeat non-contrast CT head in 6 hours, and if stable, repeat scan in 24 hours. Continue Keppra 500 mg Q12. Control BP to maintain normo-tension (start Cardene ). Versed at 5 mg/hr to suppress seizure activity. She will need an EEG and an MRI of the brain with and without contrast for further evaluation of a possible underlying seizure focus and possible mass, respectively.
[2018-03-21 18:10] VITALS: BMI 23.7
[2018-03-21] MEDS ORDERED: Pneumococcal 23-Valent Vaccine IM ONE (18:10)
[2018-03-21 19:24] LABS: BARBITURATES, UR NEGATIVE (NEGATIVE); BENZODIAZEPINES, UR NEGATIVE (NEGATIVE); OPIATES, UR NEGATIVE (NEGATIVE); PHENCYCLIDINE, UR NEGATIVE (NEGATIVE)
[2018-03-21] MEDS ORDERED: levETIRAcetam 500 MG in Sodium Chloride 0.9% 100 ML IV SCH (22:00)
[2018-03-22] MEDS: Sodium Chloride 0.9% 1,000 ML IV SCH ×3 (01:00→23:15)
--- NOTE | 2018-03-22 05:09 | CARD ---
APPROVED REPORT Date of service: 03/21/2018 EKG Measurement Heart [id number] <Conclusion> Normal sinus rhythm Moderate voltage criteria for LVH, may be normal variant Nonspecific ST abnormality Prolonged QT Abnormal ECG
[2018-03-22 05:56] LABS: GRAN # 4.12 (1.4-6.5); GRAN % 89.7 % (50.0-68.0); HEMOGLOBIN 11.2 g/dL (12.0-16.0); LYMPH # 0.3 (1.2-3.4); LYMPH % 6.8 % (22.0-35.0); MEAN CELL VOLUME 91.8 fl (80.0-105.0); MEAN CORPUSCULAR HEMOGLOBIN 31.7 pg (25.0-35.0); MEAN CORPUSCULAR HGB CONC 34.6 g/dl (31.0-37.0); MEAN PLATELET VOLUME 10.1 fl (7.0-11.0); MONO # 0.2 (0.1-0.6); MONO % 3.5 % (1.0-6.0); RBC 3.53 10^6/uL (3.5-6.1); RED CELL DISTRIBUTION WIDTH 15.9 % (11.5-14.5); WHITE BLOOD COUNT 4.6 10^3/ul (4.5-11.0)
[2018-03-22 05:59] LABS: PLATELET COUNT 46 10^3/uL (120.0-450.0)
[2018-03-22 06:17] LABS: ARTERIAL BLOOD GAS HCO3 20.4 mmol/L (21-28); ARTERIAL BLOOD GAS HEMOGLOBIN 10.4 g/dL (11.7-17.4); ARTERIAL BLOOD GAS O2 CAPACITY 14.5 mL/dl (16-24); ARTERIAL BLOOD GAS O2 CONTENT 14.5 ML/dl (15-23); ARTERIAL BLOOD GAS O2 SAT 99.9 % (95-98); ARTERIAL BLOOD GAS PCO2 25 mm/Hg (35-45); ARTERIAL BLOOD GAS PH 7.52 (7.35-7.45); ARTERIAL BLOOD GAS TCO2 21.2 mmol.L (22-28)
[2018-03-22 06:45] LABS: ALB/GLOB RATIO 0.7 (1.1-1.8); ALBUMIN 3.1 g/dL (3.0-4.8); ALT/SGPT 37 U/L (7-56); AST/SGOT 75 U/L (14-36); BLOOD UREA NITROGEN 9 mg/dL (7-21); CALCIUM 8.6 mg/dL (8.4-10.5); GFR NON-AFRICAN AMERICAN > 60
[2018-03-22 08:29] LABS: PLATELET COUNT MANUAL 48 K/mm3 (120-450)
[2018-03-22] MEDS: levETIRAcetam 500mg IVPB 500 MG/100 ML BAG IVPB SCH ×2 (09:19→22:03)
--- NOTE | 2018-03-22 09:46 | CP.CCUPN ---
<Porter Allred - Last Filed: 03/22/18 14:52> CCU Subjective - Physician Review Subjective (Free Text): Porter Allred DO PGY1 - Internal Medicine [employer] - ICU PROGRESS NOTE Patient was seen and examined at bedside in ICU this AM. No overnight events reported; No seizure like activity obserced. Currently intubated and sedated. 03/22/18 14:48 Critical Care Time Spent (in minutes): 60 CCU Objective - Vital Signs / Intake & Output Vital Signs (Last 4 hours): Vital Signs Temp Pulse Resp BP Pulse Ox 03/22/18 08:40 64 100 03/22/18 08:30 65 156/78 H 100 03/22/18 08:20 73 100 03/22/18 08:15 57 L 126/63 100 03/22/18 08:10 58 L 100 03/22/18 08:00 59 L 127/70 100 03/22/18 07:50 61 100 03/22/18 07:45 63 154/78 H 100 03/22/18 07:40 65 100 03/22/18 07:30 63 140/74 100 03/22/18 07:20 62 100 03/22/18 07:15 64 139/70 100 03/22/18 07:10 64 100 03/22/18 07:00 66 146/75 100 03/22/18 06:50 65 100 03/22/18 06:45 67 147/79 100 03/22/18 06:40 75 100 03/22/18 06:30 63 140/70 100 03/22/18 06:20 63 100 03/22/18 06:15 62 132/73 100 03/22/18 06:11 64 20 100 03/22/18 06:10 64 100 03/22/18 06:07 98.1 F 03/22/18 06:03 64 03/22/18 06:00 98.1 F 63 132/69 100 03/22/18 05:50 63 100 03/22/18 05:45 66 132/68 100 Intake and Output (Last 8hrs): Intake & Output 03/21/18 03/22/18 03/22/18 22:59 06:59 14:59 Intake Total 424 1396 Output Total 210 1100 Balance 214 296 Weight 147 lb Intake: IV 222 1200 Right Hand 212 1200 Oral 0 Blood Product 202 196 Apheresis Plts Acda Lr 202 1st Con Unit [id number] Apheresis Plts Acda Lr 0 196 2nd Con Unit [id number] Output: Urine 210 1100 Urethral (Donahue) 210 1100 Other: Voiding Method Indwelling Catheter # Bowel Movements 0 0 - Physical Exam Physical Exam Limitations: Positive for: Other (Sedated) Head: Positive for: Atraumatic, Normocephalic Pupils: Positive for: PERRL, Sluggish, Other Mouth: Positive for: Other (Some oropharyngeal trauma and bleeding 2/2 intubation; ET tube in place ) Respiratory/Chest: Positive for: Clear to Auscultation, Good Air Exchange. Negative for: Respiratory Distress Cardiovascular: Positive for: Regular Rate and Rhythm, Normal S1, S2 Abdomen: Positive for: Normal Bowel Sounds. Negative for: Tenderness, Distention Lower Extremity: Positive for: Normal Inspection. Negative for: Edema Neurological: Positive for: Other - Medications Active Medications: Active Medications Generic Name Dose Route Start Last Admin Trade Name Freq PRN Reason Stop Dose Admin Sodium Chloride 1,000 mls @ 100 mls/hr 03/21/18 14:00 03/22/18 01:00 Sodium Chloride 0.9% IV 100 mls/hr .Q10H STEVEN Administration Midazolam 100 mg/100ml in NS 100 mg in 100 mls @ 1 mls/hr 03/21/18 15:20 08/07 20:00 Midazolam 100 Mg/100ml In Ns IV 2 mg/hr .Q24H PRN 2 mls/hr Seizure activity Titration Protocol 1 MG/HR Levetiracetam 500 mg in 100 mls @ 460 mls/hr 03/22/18 10:00 03/22/18 09:19 Keppra 500mg Ivpb IVPB 460 mls/hr Q12 STEVEN Administration Pantoprazole Sodium 40 mg 03/21/18 16:30 03/22/18 09:19 Protonix Inj IVP 40 mg DAILY STEVEN Administration - Patient Studies Lab Studies: Lab Studies 03/22/18 03/22/18 03/22/18 Range/Units 07:33 06:00 05:15 WBC (4.5-11.0) 10^3/ul RBC (3.5-6.1) 10^6/uL Hgb (12.0-16.0) g/dL Hct (36.0-48.0) % MCV (80.0-105.0) fl MCH (25.0-35.0) pg MCHC (31.0-37.0) g/dl RDW (11.5-14.5) % Plt Count (120.0-450.0) 10^3/uL Manual Plt Count (120-450) K/mm3 MPV (7.0-11.0) fl Gran % (50.0-68.0) % Lymph % (Auto) (22.0-35.0) % [place] % (Auto) (1.0-6.0) % Eos % (Auto) (1.5-5.0) % Baso % (Auto) (0.0-3.0) % Gran # (1.4-6.5) Lymph # (Auto) (1.2-3.4) [place] # (Auto) (0.1-0.6) Eos # (Auto) (0.0-0.7) Baso # (Auto) (0.0-2.0) K/mm3 pCO2 25 L (35-45) mm/Hg pO2 159.0 H (80-100) mm/Hg HCO3 20.4 L (21-28) mmol/L ABG pH 7.52 H (7.35-7.45) ABG Total CO2 21.2 L (22-28) mmol.L ABG O2 Saturation 99.9 H (95-98) % ABG O2 Content 14.5 L (15-23) ML/dl ABG Base Excess -1.4 (-2.0-3.0) mmol/L ABG Hemoglobin 10.4 L (11.7-17.4) g/dL ABG Carboxyhemoglobin 1.5 (0.5-1.5) % POC ABG HHb (Measured) 0.1 (0-5) % ABG Methemoglobin 1.4 (0.0-3.0) % ABG O2 Capacity 14.5 L (16-24) mL/dl Hgb O2 Saturation 97.1 (95.0-98.0) % FiO2 50.0 % Sodium 145 (132-148) mmol/L Potassium 3.3 L (3.6-5.0) mmol/L Chloride 113 H (98-107) mmol/L Carbon Dioxide 21 (21-33) mmol/L Anion Gap 14 (10-20) BUN 9 (7-21) mg/dL Creatinine 0.5 L (0.7-1.2) mg/dl Est GFR ( Amer) > 60 Est GFR (Non-Af Amer) > 60 POC Glucose (mg/dL) 130 H (65-110) mg/dL Random Glucose 133 H (70-110) mg/dL Calcium 8.6 (8.4-10.5) mg/dL Phosphorus 2.6 (2.5-4.5) mg/dL Magnesium 1.8 (1.7-2.2) mg/dL Total Bilirubin 3.7 H (0.2-1.3) mg/dL AST 75 H (14-36) U/L ALT 37 (7-56) U/L Alkaline Phosphatase 141 H D (38-126) U/L Total Protein 7.4 (5.8-8.3) g/dL Albumin 3.1 (3.0-4.8) g/dL Globulin 4.3 gm/dL Albumin/Globulin Ratio 0.7 L (1.1-1.8) Procalcitonin (0.19-0.49) NG/ML Urine Opiates Screen (NEGATIVE) Urine Methadone Screen (NEGATIVE) Ur Barbiturates Screen (NEGATIVE) Ur Phencyclidine Scrn (NEGATIVE) Ur Amphetamines Screen (NEGATIVE) U Benzodiazepines Scrn (NEGATIVE) U Oth Cocaine Metabols (NEGATIVE) U Cannabinoids Screen (NEGATIVE) Alcohol, Quantitative (0-10) mg/dL 03/22/18 03/21/18 03/21/18 Range/Units 05:15 21:40 18:57 WBC 4.6 D (4.5-11.0) 10^3/ul RBC 3.53 (3.5-6.1) 10^6/uL Hgb 11.2 L (12.0-16.0) g/dL Hct 32.4 L (36.0-48.0) % MCV 91.8 D (80.0-105.0) fl MCH 31.7 (25.0-35.0) pg MCHC 34.6 (31.0-37.0) g/dl RDW 15.9 H (11.5-14.5) % Plt Count 46 L* (120.0-450.0) 10^3/uL Manual Plt Count 48 L* (120-450) K/mm3 MPV 10.1 (7.0-11.0) fl Gran % 89.7 H (50.0-68.0) % Lymph % (Auto) 6.8 L (22.0-35.0) % [place] % (Auto) 3.5 (1.0-6.0) % Eos % (Auto) 0.0 L (1.5-5.0) % Baso % (Auto) 0.0 (0.0-3.0) % Gran # 4.12 (1.4-6.5) Lymph # (Auto) 0.3 L (1.2-3.4) [place] # (Auto) 0.2 (0.1-0.6) Eos # (Auto) 0.0 (0.0-0.7) Baso # (Auto) 0.00 (0.0-2.0) K/mm3 pCO2 (35-45) mm/Hg pO2 (80-100) mm/Hg HCO3 (21-28) mmol/L ABG pH (7.35-7.45) ABG Total CO2 (22-28) mmol.L ABG O2 Saturation (95-98) % ABG O2 Content (15-23) ML/dl ABG Base Excess (-2.0-3.0) mmol/L ABG Hemoglobin (11.7-17.4) g/dL ABG Carboxyhemoglobin (0.5-1.5) % POC ABG HHb (Measured) (0-5) % ABG Methemoglobin (0.0-3.0) % ABG O2 Capacity (16-24) mL/dl Hgb O2 Saturation (95.0-98.0) % FiO2 % Sodium (132-148) mmol/L Potassium (3.6-5.0) mmol/L Chloride (98-107) mmol/L Carbon Dioxide (21-33) mmol/L Anion Gap (10-20) BUN (7-21) mg/dL Creatinine (0.7-1.2) mg/dl Est GFR ( Amer) Est GFR (Non-Af Amer) POC Glucose (mg/dL) 151 H 126 H (65-110) mg/dL Random Glucose (70-110) mg/dL Calcium (8.4-10.5) mg/dL Phosphorus (2.5-4.5) mg/dL Magnesium (1.7-2.2) mg/dL Total Bilirubin (0.2-1.3) mg/dL AST (14-36) U/L ALT (7-56) U/L Alkaline Phosphatase (38-126) U/L Total Protein (5.8-8.3) g/dL Albumin (3.0-4.8) g/dL Globulin gm/dL Albumin/Globulin Ratio (1.1-1.8) Procalcitonin (0.19-0.49) NG/ML Urine Opiates Screen (NEGATIVE) Urine Methadone Screen (NEGATIVE) Ur Barbiturates Screen (NEGATIVE) Ur Phencyclidine Scrn (NEGATIVE) Ur Amphetamines Screen (NEGATIVE) U Benzodiazepines Scrn (NEGATIVE) U Oth Cocaine Metabols (NEGATIVE) U Cannabinoids Screen (NEGATIVE) Alcohol, Quantitative (0-10) mg/dL 03/21/18 03/21/18 03/21/18 Range/Units 18:30 18:30 17:00 WBC (4.5-11.0) 10^3/ul RBC (3.5-6.1) 10^6/uL Hgb (12.0-16.0) g/dL Hct (36.0-48.0) % MCV (80.0-105.0) fl MCH (25.0-35.0) pg MCHC (31.0-37.0) g/dl RDW (11.5-14.5) % Plt Count (120.0-450.0) 10^3/uL Manual Plt Count (120-450) K/mm3 MPV (7.0-11.0) fl Gran % (50.0-68.0) % Lymph % (Auto) (22.0-35.0) % [place] % (Auto) (1.0-6.0) % Eos % (Auto) (1.5-5.0) % Baso % (Auto) (0.0-3.0) % Gran # (1.4-6.5) Lymph # (Auto) (1.2-3.4) [place] # (Auto) (0.1-0.6) Eos # (Auto) (0.0-0.7) Baso # (Auto) (0.0-2.0) K/mm3 pCO2 (35-45) mm/Hg pO2 (80-100) mm/Hg HCO3 (21-28) mmol/L ABG pH (7.35-7.45) ABG Total CO2 (22-28) mmol.L ABG O2 Saturation (95-98) % ABG O2 Content (15-23) ML/dl ABG Base Excess (-2.0-3.0) mmol/L ABG Hemoglobin (11.7-17.4) g/dL ABG Carboxyhemoglobin (0.5-1.5) % POC ABG HHb (Measured) (0-5) % ABG Methemoglobin (0.0-3.0) % ABG O2 Capacity (16-24) mL/dl Hgb O2 Saturation (95.0-98.0) % FiO2 % Sodium (132-148) mmol/L Potassium (3.6-5.0) mmol/L Chloride (98-107) mmol/L Carbon Dioxide (21-33) mmol/L Anion Gap (10-20) BUN (7-21) mg/dL Creatinine (0.7-1.2) mg/dl Est GFR ( Amer) Est GFR (Non-Af Amer) POC Glucose (mg/dL) (65-110) mg/dL Random Glucose (70-110) mg/dL Calcium (8.4-10.5) mg/dL Phosphorus (2.5-4.5) mg/dL Magnesium (1.7-2.2) mg/dL Total Bilirubin (0.2-1.3) mg/dL AST (14-36) U/L ALT (7-56) U/L Alkaline Phosphatase (38-126) U/L Total Protein (5.8-8.3) g/dL Albumin (3.0-4.8) g/dL Globulin gm/dL Albumin/Globulin Ratio (1.1-1.8) Procalcitonin 0.13 L (0.19-0.49) NG/ML Urine Opiates Screen Negative (NEGATIVE) Urine Methadone Screen Negative (NEGATIVE) Ur Barbiturates Screen Negative (NEGATIVE) Ur Phencyclidine Scrn Negative (NEGATIVE) Ur Amphetamines Screen Negative (NEGATIVE) U Benzodiazepines Scrn Negative (NEGATIVE) U Oth Cocaine Metabols Negative (NEGATIVE) U Cannabinoids Screen Negative (NEGATIVE) Alcohol, Quantitative < 10 (0-10) mg/dL Laboratory Results - last 24 hr 03/21/18 03/21/18 03/21/18 17:00 18:30 18:30 WBC RBC Hgb Hct MCV MCH MCHC RDW Plt Count Manual Plt Count MPV Gran % Lymph % (Auto) [place] % (Auto) Eos % (Auto) Baso % (Auto) Gran # Lymph # (Auto) [place] # (Auto) Eos # (Auto) Baso # (Auto) pCO2 pO2 HCO3 ABG pH ABG Total CO2 ABG O2 Saturation ABG O2 Content ABG Base Excess ABG Hemoglobin ABG Carboxyhemoglobin POC ABG HHb (Measured) ABG Methemoglobin ABG O2 Capacity Hgb O2 Saturation FiO2 Sodium Potassium Chloride Carbon Dioxide Anion Gap BUN Creatinine Est GFR ( Amer) Est GFR (Non-Af Amer) POC Glucose (mg/dL) Random Glucose Calcium Phosphorus Magnesium Total Bilirubin AST ALT Alkaline Phosphatase Total Protein Albumin Globulin Albumin/Globulin Ratio Procalcitonin 0.13 L Urine Opiates Screen Negative Urine Methadone Screen Negative Ur Barbiturates Screen Negative Ur Phencyclidine Scrn Negative Ur Amphetamines Screen Negative U Benzodiazepines Scrn Negative U Oth Cocaine Metabols Negative U Cannabinoids Screen Negative Alcohol, Quantitative < 10 03/21/18 03/21/18 03/22/18 18:57 21:40 05:15 WBC 4.6 D RBC 3.53 Hgb 11.2 L Hct 32.4 L MCV 91.8 D MCH 31.7 MCHC 34.6 RDW 15.9 H Plt Count 46 L* Manual Plt Count 48 L* MPV 10.1 Gran % 89.7 H Lymph % (Auto) 6.8 L [place] % (Auto) 3.5 Eos % (Auto) 0.0 L Baso % (Auto) 0.0 Gran # 4.12 Lymph # (Auto) 0.3 L [place] # (Auto) 0.2 Eos # (Auto) 0.0 Baso # (Auto) 0.00 pCO2 pO2 HCO3 ABG pH ABG Total CO2 ABG O2 Saturation ABG O2 Content ABG Base Excess ABG Hemoglobin ABG Carboxyhemoglobin POC ABG HHb (Measured) ABG Methemoglobin ABG O2 Capacity Hgb O2 Saturation FiO2 Sodium Potassium Chloride Carbon Dioxide Anion Gap BUN Creatinine Est GFR ( Amer) Est GFR (Non-Af Amer) POC Glucose (mg/dL) 126 H 151 H Random Glucose Calcium Phosphorus Magnesium Total Bilirubin AST ALT Alkaline Phosphatase Total Protein Albumin Globulin Albumin/Globulin Ratio Procalcitonin Urine Opiates Screen Urine Methadone Screen Ur Barbiturates Screen Ur Phencyclidine Scrn Ur Amphetamines Screen U Benzodiazepines Scrn U Oth Cocaine Metabols U Cannabinoids Screen Alcohol, Quantitative 03/22/18 03/22/18 03/22/18 05:15 06:00 07:33 WBC RBC Hgb Hct MCV MCH MCHC RDW Plt Count Manual Plt Count MPV Gran % Lymph % (Auto) [place] % (Auto) Eos % (Auto) Baso % (Auto) Gran # Lymph # (Auto) [place] # (Auto) Eos # (Auto) Baso # (Auto) pCO2 25 L pO2 159.0 H HCO3 20.4 L ABG pH 7.52 H ABG Total CO2 21.2 L ABG O2 Saturation 99.9 H ABG O2 Content 14.5 L ABG Base Excess -1.4 ABG Hemoglobin 10.4 L ABG Carboxyhemoglobin 1.5 POC ABG HHb (Measured) 0.1 ABG Methemoglobin 1.4 ABG O2 Capacity 14.5 L Hgb O2 Saturation 97.1 FiO2 50.0 Sodium 145 Potassium 3.3 L Chloride 113 H Carbon Dioxide 21 Anion Gap 14 BUN 9 Creatinine 0.5 L Est GFR ( Amer) > 60 Est GFR (Non-Af Amer) > 60 POC Glucose (mg/dL) 130 H Random Glucose 133 H Calcium 8.6 Phosphorus 2.6 Magnesium 1.8 Total Bilirubin 3.7 H AST 75 H ALT 37 Alkaline Phosphatase 141 H D Total Protein 7.4 Albumin 3.1 Globulin 4.3 Albumin/Globulin Ratio 0.7 L Procalcitonin Urine Opiates Screen Urine Methadone Screen Ur Barbiturates Screen Ur Phencyclidine Scrn Ur Amphetamines Screen U Benzodiazepines Scrn U Oth Cocaine Metabols U Cannabinoids Screen Alcohol, Quantitative Fingerstick Blood Sugar Results: 130 Review of Systems - Review of Systems Systems not reviewed;Unavailable: Other (Sedated) Assessment/Plan - Assessment and Plan (Free Text) Assessment: 62 year old female with PMH cirrhosis, esophageal varices requiring banding, spinal stenosis, arthritis, alcohol abuse, presents to [facility] [place] unresponsive after a seizure at home, requiring intubation in ED. Found to have 2x2 CM hemorrhagic stroke which has progressed to 5x5 this AM. Currently intubated and sedated on propofol drip. Neuro : - Unresponsive, + twitching body movements noted on admission. - Prolactin on admiss - C/w keppra 500 BID - C/w Midazolam 1mg/hr - Started Propofol Drip - 250ml Hypertonic Saline 3% Bolus; Followed by Hypertonic Saline 3% @ 30cc/hr - Seizure precautions, neuro checks. - CT head showed hemorrhage within the medial left occipital lobe measuring approximately 2.8 x 2.8 cm with associated edema/necrosis. This finding exerts mass effect on the atrium of the ventricles anterior laterally. Location of this hemorrhage is atypical for hypertensive hemorrhage. Considerations include atypical hypertensive hemorrhage, underlying vascular lesion, hemorrhagic tumor is considered less likely. - 03/22 CT Head showed increasling left occipital lobe hemorrhage 5.3x3.3cm from 2.2x2.2cm. Intraventricular extension of hemorrhage involving left lateral and 3rd ventricles. Increasing dilatation of the left lateral ventricle. - Will keep BP goals: SBP 120-140/80-90. Consider cardene drip if needed. - Neurosurgery on board. No acute surgical intervention. Keep HOB>30 degrees. - Neurology Following - Discussed w/ neurosurgery use of acute steroid therapy in setting of ICH; There is no need for acute steroid therapy at this time. CV: - Keep BP goal 120-140/80-90. - Hemodynamically stable. - Cont to monitor. Pulm: - Intubated on PRVC mode. - Maintain O2 sat>92-94% - Continue with HOB elevation> 35 degrees, aspiration precautions. - Continue with protected lung ventilation strategies with TV of 6 ml/kg of IBW , plateau pressure less than 35, head of bed elevation above 35 degrees, pulm toileting GI: - NPO. Continue with Protonix. Renal : - BUN/Cr 09/0.5 - Replace lytes, maintain euvolemia. - Continue to monitor. ID: Afebrile, no leukocytosis. - sent for blood culture, urine culture, procal, UA - Procal 0.13 low - CXR Chronic interstitial markings. Patchy left lower lobe atelectasis/ infiltrate. Biapical pleural thickening. - Monitor for s/s infection - Endo: Maintain euglycemia. Heme: - Patient historically has had thrombocytopenia - PLT today is 48 from 75 day prior - Post 2U platelet transfusion yesterday - Platelet goal set for >100,000 in setting of ICH/ Hemorrhagic stroke - Will admin 4U platelet and 2U FFP today - Hematology consulted for thrombocytopenia - Hb dropped from 13 to 11 - Haptoglobin, LDH, and Direct Bili ordered DVT ppx - SCDs in setting of brain hemorrhage GI ppx - Protonix Patient was seen, examined, and case was discussed w/ attending physician Dr. Samantha Allred DO - PGY 1 Internal Medicine [employer] - Pager [phone] - Date & Time Date: 03/22/18 Time: 15:24 <Samantha Byers - Last Filed: 03/22/18 19:23> CCU Subjective - Physician Review Critical Care Time Spent (in minutes): 0 CCU Objective - Vital Signs / Intake & Output Vital Signs (Last 4 hours): Vital Signs Pulse BP Pulse Ox 03/22/18 18:43 148/75 03/22/18 18:42 76 100 03/22/18 18:40 75 100 03/22/18 18:38 75 145/77 100 03/22/18 18:36 75 148/85 100 03/22/18 18:34 76 147/80 100 03/22/18 18:32 75 154/81 H 100 03/22/18 18:30 75 150/80 100 03/22/18 18:28 76 147/74 100 03/22/18 18:26 77 152/80 H 100 03/22/18 18:24 75 153/84 H 100 03/22/18 18:22 77 152/77 H 100 03/22/18 18:20 77 149/77 100 03/22/18 18:18 76 152/79 H 100 03/22/18 18:16 73 145/79 100 03/22/18 18:14 72 150/84 100 03/22/18 18:12 72 149/79 100 03/22/18 18:10 70 155/83 H 100 03/22/18 18:08 71 155/83 H 100 03/22/18 18:06 71 155/84 H 100 03/22/18 18:04 71 154/85 H 100 03/22/18 18:02 72 152/79 H 100 03/22/18 18:00 72 157/82 H 100 03/22/18 17:58 70 160/81 H 100 03/22/18 17:56 71 157/88 H 99 03/22/18 17:54 77 149/78 100 03/22/18 17:52 74 03/22/18 16:50 68 134/75 100 03/22/18 16:45 68 133/75 100 03/22/18 16:40 68 100 03/22/18 16:30 70 137/73 100 03/22/18 16:20 68 100 03/22/18 16:15 68 134/77 100 03/22/18 16:10 68 100 03/22/18 16:00 70 135/76 100 03/22/18 15:50 71 100 03/22/18 15:45 70 141/77 03/22/18 15:42 72 145/78 100 03/22/18 15:40 72 100 03/22/18 15:30 71 144/81 100 03/22/18 15:25 70 147/77 100 Intake and Output (Last 8hrs): Intake & Output 03/22/18 03/22/18 03/22/18 06:59 14:59 22:59 Intake Total 1396 22 700 Output Total 1100 525 Balance 296 22 175 Intake: IV 1200 22 700 Right Antecubital 200 Right Hand 1200 500 Oral 0 Blood Product 196 Apheresis Plts Acda Lr 196 2nd Con Unit [id number] Output: Urine 1100 525 Urethral ([place]ahue) 1100 525 Other: # Bowel Movements 0 0 - Medications Active Medications: Active Medications Generic Name Dose Route Start Last Admin Trade Name Freq PRN Reason Stop Dose Admin Sodium Chloride 1,000 mls @ 100 mls/hr 03/21/18 14:00 03/22/18 01:00 Sodium Chloride 0.9% IV 100 mls/hr .Q10H STEVEN Administration Midazolam 100 mg/100ml in NS 100 mg in 100 mls @ 1 mls/hr 03/21/18 15:20 09/07 07:30 Midazolam 100 Mg/100ml In Ns IV 4 mg/hr .Q24H PRN 4 mls/hr Seizure activity Titration Protocol 1 MG/HR Levetiracetam 500 mg in 100 mls @ 460 mls/hr 03/22/18 10:00 03/22/18 09:19 Keppra 500mg Ivpb IVPB 460 mls/hr Q12 STEVEN Administration Propofol 1,000 mg in 100 mls @ 2 mls/hr 03/22/18 14:35 03/22/18 13:56 Diprivan IV 5 mcg/kg/min .Q24H PRN 2 mls/hr TITRATE PER MD ORDER Administration Protocol 5 MCG/KG/MIN Sodium Chloride 500 mls @ 30 mls/hr 03/22/18 15:00 03/22/18 19:14 Hypertonic Saline 3% IV 30 mls/hr .[id number] STEVEN Administration Pantoprazole Sodium 40 mg 03/21/18 16:30 03/22/18 09:19 Protonix Inj IVP 40 mg DAILY STEVEN Administration - Patient Studies Lab Studies: Microbiology Studies 03/21/18 18:30 Blood Culture - Preliminary Blood-Venous NO GROWTH AFTER 24 HOURS 03/21/18 18:00 Blood Culture - Preliminary Blood-Venous NO GROWTH AFTER 24 HOURS Lab Studies 03/22/18 03/22/18 03/22/18 Range/Units 15:54 11:02 07:33 WBC (4.5-11.0) 10^3/ul RBC (3.5-6.1) 10^6/uL Hgb (12.0-16.0) g/dL Hct (36.0-48.0) % MCV (80.0-105.0) fl MCH (25.0-35.0) pg MCHC (31.0-37.0) g/dl RDW (11.5-14.5) % Plt Count (120.0-450.0) 10^3/uL Manual Plt Count (120-450) K/mm3 MPV (7.0-11.0) fl Gran % (50.0-68.0) % Lymph % (Auto) (22.0-35.0) % [place] % (Auto) (1.0-6.0) % Eos % (Auto) (1.5-5.0) % Baso % (Auto) (0.0-3.0) % Gran # (1.4-6.5) Lymph # (Auto) (1.2-3.4) [place] # (Auto) (0.1-0.6) Eos # (Auto) (0.0-0.7) Baso # (Auto) (0.0-2.0) K/mm3 Haptoglobin (30.0-200.0) mg/dL pCO2 (35-45) mm/Hg pO2 (80-100) mm/Hg HCO3 (21-28) mmol/L ABG pH (7.35-7.45) ABG Total CO2 (22-28) mmol.L ABG O2 Saturation (95-98) % ABG O2 Content (15-23) ML/dl ABG Base Excess (-2.0-3.0) mmol/L ABG Hemoglobin (11.7-17.4) g/dL ABG Carboxyhemoglobin (0.5-1.5) % POC ABG HHb (Measured) (0-5) % ABG Methemoglobin (0.0-3.0) % ABG O2 Capacity (16-24) mL/dl Hgb O2 Saturation (95.0-98.0) % FiO2 % Sodium (132-148) mmol/L Potassium (3.6-5.0) mmol/L Chloride (98-107) mmol/L Carbon Dioxide (21-33) mmol/L Anion Gap (10-20) BUN (7-21) mg/dL Creatinine (0.7-1.2) mg/dl Est GFR ( Amer) Est GFR (Non-Af Amer) POC Glucose (mg/dL) 126 H 122 H 130 H (65-110) mg/dL Random Glucose (70-110) mg/dL Calcium (8.4-10.5) mg/dL Phosphorus (2.5-4.5) mg/dL Magnesium (1.7-2.2) mg/dL Total Bilirubin (0.2-1.3) mg/dL Direct Bilirubin (0.0-0.4) mg/dL AST (14-36) U/L ALT (7-56) U/L Alkaline Phosphatase (38-126) U/L Lactate Dehydrogenase (333-699) U/L Total Protein (5.8-8.3) g/dL Albumin (3.0-4.8) g/dL Globulin gm/dL Albumin/Globulin Ratio (1.1-1.8) Procalcitonin (0.19-0.49) NG/ML Prolactin (3.0-18.9) ng/mL Urine Opiates Screen (NEGATIVE) Ur Barbiturates Screen (NEGATIVE) Ur Phencyclidine Scrn (NEGATIVE) Ur Amphetamines Screen (NEGATIVE) U Benzodiazepines Scrn (NEGATIVE) U Oth Cocaine Metabols (NEGATIVE) U Cannabinoids Screen (NEGATIVE) 03/22/18 03/22/18 03/22/18 Range/Units 06:00 06:00 06:00 WBC (4.5-11.0) 10^3/ul RBC (3.5-6.1) 10^6/uL Hgb (12.0-16.0) g/dL Hct (36.0-48.0) % MCV (80.0-105.0) fl MCH (25.0-35.0) pg MCHC (31.0-37.0) g/dl RDW (11.5-14.5) % Plt Count (120.0-450.0) 10^3/uL Manual Plt Count (120-450) K/mm3 MPV (7.0-11.0) fl Gran % (50.0-68.0) % Lymph % (Auto) (22.0-35.0) % [place] % (Auto) (1.0-6.0) % Eos % (Auto) (1.5-5.0) % Baso % (Auto) (0.0-3.0) % Gran # (1.4-6.5) Lymph # (Auto) (1.2-3.4) [place] # (Auto) (0.1-0.6) Eos # (Auto) (0.0-0.7) Baso # (Auto) (0.0-2.0) K/mm3 Haptoglobin < 20.0 L (30.0-200.0) mg/dL pCO2 25 L (35-45) mm/Hg pO2 159.0 H (80-100) mm/Hg HCO3 20.4 L (21-28) mmol/L ABG pH 7.52 H (7.35-7.45) ABG Total CO2 21.2 L (22-28) mmol.L ABG O2 Saturation 99.9 H (95-98) % ABG O2 Content 14.5 L (15-23) ML/dl ABG Base Excess -1.4 (-2.0-3.0) mmol/L ABG Hemoglobin 10.4 L (11.7-17.4) g/dL ABG Carboxyhemoglobin 1.5 (0.5-1.5) % POC ABG HHb (Measured) 0.1 (0-5) % ABG Methemoglobin 1.4 (0.0-3.0) % ABG O2 Capacity 14.5 L (16-24) mL/dl Hgb O2 Saturation 97.1 (95.0-98.0) % FiO2 50.0 % Sodium (132-148) mmol/L Potassium (3.6-5.0) mmol/L Chloride (98-107) mmol/L Carbon Dioxide (21-33) mmol/L Anion Gap (10-20) BUN (7-21) mg/dL Creatinine (0.7-1.2) mg/dl Est GFR ( Amer) Est GFR (Non-Af Amer) POC Glucose (mg/dL) (65-110) mg/dL Random Glucose (70-110) mg/dL Calcium (8.4-10.5) mg/dL Phosphorus (2.5-4.5) mg/dL Magnesium (1.7-2.2) mg/dL Total Bilirubin (0.2-1.3) mg/dL Direct Bilirubin 1.4 H (0.0-0.4) mg/dL AST (14-36) U/L ALT (7-56) U/L Alkaline Phosphatase (38-126) U/L Lactate Dehydrogenase 617 (333-699) U/L Total Protein (5.8-8.3) g/dL Albumin (3.0-4.8) g/dL Globulin gm/dL Albumin/Globulin Ratio (1.1-1.8) Procalcitonin (0.19-0.49) NG/ML Prolactin (3.0-18.9) ng/mL Urine Opiates Screen (NEGATIVE) Ur Barbiturates Screen (NEGATIVE) Ur Phencyclidine Scrn (NEGATIVE) Ur Amphetamines Screen (NEGATIVE) U Benzodiazepines Scrn (NEGATIVE) U Oth Cocaine Metabols (NEGATIVE) U Cannabinoids Screen (NEGATIVE) 03/22/18 03/22/18 03/21/18 Range/Units 05:15 05:15 21:40 WBC 4.6 D (4.5-11.0) 10^3/ul RBC 3.53 (3.5-6.1) 10^6/uL Hgb 11.2 L (12.0-16.0) g/dL Hct 32.4 L (36.0-48.0) % MCV 91.8 D (80.0-105.0) fl MCH 31.7 (25.0-35.0) pg MCHC 34.6 (31.0-37.0) g/dl RDW 15.9 H (11.5-14.5) % Plt Count 46 L* (120.0-450.0) 10^3/uL Manual Plt Count 48 L* (120-450) K/mm3 MPV 10.1 (7.0-11.0) fl Gran % 89.7 H (50.0-68.0) % Lymph % (Auto) 6.8 L (22.0-35.0) % [place] % (Auto) 3.5 (1.0-6.0) % Eos % (Auto) 0.0 L (1.5-5.0) % Baso % (Auto) 0.0 (0.0-3.0) % Gran # 4.12 (1.4-6.5) Lymph # (Auto) 0.3 L (1.2-3.4) [place] # (Auto) 0.2 (0.1-0.6) Eos # (Auto) 0.0 (0.0-0.7) Baso # (Auto) 0.00 (0.0-2.0) K/mm3 Haptoglobin (30.0-200.0) mg/dL pCO2 (35-45) mm/Hg pO2 (80-100) mm/Hg HCO3 (21-28) mmol/L ABG pH (7.35-7.45) ABG Total CO2 (22-28) mmol.L ABG O2 Saturation (95-98) % ABG O2 Content (15-23) ML/dl ABG Base Excess (-2.0-3.0) mmol/L ABG Hemoglobin (11.7-17.4) g/dL ABG Carboxyhemoglobin (0.5-1.5) % POC ABG HHb (Measured) (0-5) % ABG Methemoglobin (0.0-3.0) % ABG O2 Capacity (16-24) mL/dl Hgb O2 Saturation (95.0-98.0) % FiO2 % Sodium 145 (132-148) mmol/L Potassium 3.3 L (3.6-5.0) mmol/L Chloride 113 H (98-107) mmol/L Carbon Dioxide 21 (21-33) mmol/L Anion Gap 14 (10-20) BUN 9 (7-21) mg/dL Creatinine 0.5 L (0.7-1.2) mg/dl Est GFR ( Amer) > 60 Est GFR (Non-Af Amer) > 60 POC Glucose (mg/dL) 151 H (65-110) mg/dL Random Glucose 133 H (70-110) mg/dL Calcium 8.6 (8.4-10.5) mg/dL Phosphorus 2.6 (2.5-4.5) mg/dL Magnesium 1.8 (1.7-2.2) mg/dL Total Bilirubin 3.7 H (0.2-1.3) mg/dL Direct Bilirubin (0.0-0.4) mg/dL AST 75 H (14-36) U/L ALT 37 (7-56) U/L Alkaline Phosphatase 141 H D (38-126) U/L Lactate Dehydrogenase (333-699) U/L Total Protein 7.4 (5.8-8.3) g/dL Albumin 3.1 (3.0-4.8) g/dL Globulin 4.3 gm/dL Albumin/Globulin Ratio 0.7 L (1.1-1.8) Procalcitonin (0.19-0.49) NG/ML Prolactin (3.0-18.9) ng/mL Urine Opiates Screen (NEGATIVE) Ur Barbiturates Screen (NEGATIVE) Ur Phencyclidine Scrn (NEGATIVE) Ur Amphetamines Screen (NEGATIVE) U Benzodiazepines Scrn (NEGATIVE) U Oth Cocaine Metabols (NEGATIVE) U Cannabinoids Screen (NEGATIVE) 03/21/18 03/21/18 03/21/18 Range/Units 18:30 18:30 17:00 WBC (4.5-11.0) 10^3/ul RBC (3.5-6.1) 10^6/uL Hgb (12.0-16.0) g/dL Hct (36.0-48.0) % MCV (80.0-105.0) fl MCH (25.0-35.0) pg MCHC (31.0-37.0) g/dl RDW (11.5-14.5) % Plt Count (120.0-450.0) 10^3/uL Manual Plt Count (120-450) K/mm3 MPV (7.0-11.0) fl Gran % (50.0-68.0) % Lymph % (Auto) (22.0-35.0) % [place] % (Auto) (1.0-6.0) % Eos % (Auto) (1.5-5.0) % Baso % (Auto) (0.0-3.0) % Gran # (1.4-6.5) Lymph # (Auto) (1.2-3.4) [place] # (Auto) (0.1-0.6) Eos # (Auto) (0.0-0.7) Baso # (Auto) (0.0-2.0) K/mm3 Haptoglobin (30.0-200.0) mg/dL pCO2 (35-45) mm/Hg pO2 (80-100) mm/Hg HCO3 (21-28) mmol/L ABG pH (7.35-7.45) ABG Total CO2 (22-28) mmol.L ABG O2 Saturation (95-98) % ABG O2 Content (15-23) ML/dl ABG Base Excess (-2.0-3.0) mmol/L ABG Hemoglobin (11.7-17.4) g/dL ABG Carboxyhemoglobin (0.5-1.5) % POC ABG HHb (Measured) (0-5) % ABG Methemoglobin (0.0-3.0) % ABG O2 Capacity (16-24) mL/dl Hgb O2 Saturation (95.0-98.0) % FiO2 % Sodium (132-148) mmol/L Potassium (3.6-5.0) mmol/L Chloride (98-107) mmol/L Carbon Dioxide (21-33) mmol/L Anion Gap (10-20) BUN (7-21) mg/dL Creatinine (0.7-1.2) mg/dl Est GFR ( Amer) Est GFR (Non-Af Amer) POC Glucose (mg/dL) (65-110) mg/dL Random Glucose (70-110) mg/dL Calcium (8.4-10.5) mg/dL Phosphorus (2.5-4.5) mg/dL Magnesium (1.7-2.2) mg/dL Total Bilirubin (0.2-1.3) mg/dL Direct Bilirubin (0.0-0.4) mg/dL AST (14-36) U/L ALT (7-56) U/L Alkaline Phosphatase (38-126) U/L Lactate Dehydrogenase (333-699) U/L Total Protein (5.8-8.3) g/dL Albumin (3.0-4.8) g/dL Globulin gm/dL Albumin/Globulin Ratio (1.1-1.8) Procalcitonin 0.13 L (0.19-0.49) NG/ML Prolactin 41.6 H (3.0-18.9) ng/mL Urine Opiates Screen Negative (NEGATIVE) Ur Barbiturates Screen Negative (NEGATIVE) Ur Phencyclidine Scrn Negative (NEGATIVE) Ur Amphetamines Screen Negative (NEGATIVE) U Benzodiazepines Scrn Negative (NEGATIVE) U Oth Cocaine Metabols Negative (NEGATIVE) U Cannabinoids Screen Negative (NEGATIVE) Laboratory Results - last 24 hr 03/21/18 03/21/18 03/21/18 17:00 18:30 18:30 WBC RBC Hgb Hct MCV MCH MCHC RDW Plt Count Manual Plt Count MPV Gran % Lymph % (Auto) [place] % (Auto) Eos % (Auto) Baso % (Auto) Gran # Lymph # (Auto) [place] # (Auto) Eos # (Auto) Baso # (Auto) Haptoglobin pCO2 pO2 HCO3 ABG pH ABG Total CO2 ABG O2 Saturation ABG O2 Content ABG Base Excess ABG Hemoglobin ABG Carboxyhemoglobin POC ABG HHb (Measured) ABG Methemoglobin ABG O2 Capacity Hgb O2 Saturation FiO2 Sodium Potassium Chloride Carbon Dioxide Anion Gap BUN Creatinine Est GFR ( Amer) Est GFR (Non-Af Amer) POC Glucose (mg/dL) Random Glucose Calcium Phosphorus Magnesium Total Bilirubin Direct Bilirubin AST ALT Alkaline Phosphatase Lactate Dehydrogenase Total Protein Albumin Globulin Albumin/Globulin Ratio Procalcitonin 0.13 L Prolactin 41.6 H Urine Opiates Screen Negative Ur Barbiturates Screen Negative Ur Phencyclidine Scrn Negative Ur Amphetamines Screen Negative U Benzodiazepines Scrn Negative U Oth Cocaine Metabols Negative U Cannabinoids Screen Negative 03/21/18 03/22/18 03/22/18 21:40 05:15 05:15 WBC 4.6 D RBC 3.53 Hgb 11.2 L Hct 32.4 L MCV 91.8 D MCH 31.7 MCHC 34.6 RDW 15.9 H Plt Count 46 L* Manual Plt Count 48 L* MPV 10.1 Gran % 89.7 H Lymph % (Auto) 6.8 L [place] % (Auto) 3.5 Eos % (Auto) 0.0 L Baso % (Auto) 0.0 Gran # 4.12 Lymph # (Auto) 0.3 L [place] # (Auto) 0.2 Eos # (Auto) 0.0 Baso # (Auto) 0.00 Haptoglobin pCO2 pO2 HCO3 ABG pH ABG Total CO2 ABG O2 Saturation ABG O2 Content ABG Base Excess ABG Hemoglobin ABG Carboxyhemoglobin POC ABG HHb (Measured) ABG Methemoglobin ABG O2 Capacity Hgb O2 Saturation FiO2 Sodium 145 Potassium 3.3 L Chloride 113 H Carbon Dioxide 21 Anion Gap 14 BUN 9 Creatinine 0.5 L Est GFR ( Amer) > 60 Est GFR (Non-Af Amer) > 60 POC Glucose (mg/dL) 151 H Random Glucose 133 H Calcium 8.6 Phosphorus 2.6 Magnesium 1.8 Total Bilirubin 3.7 H Direct Bilirubin AST 75 H ALT 37 Alkaline Phosphatase 141 H D Lactate Dehydrogenase Total Protein 7.4 Albumin 3.1 Globulin 4.3 Albumin/Globulin Ratio 0.7 L Procalcitonin Prolactin Urine Opiates Screen Ur Barbiturates Screen Ur Phencyclidine Scrn Ur Amphetamines Screen U Benzodiazepines Scrn U Oth Cocaine Metabols U Cannabinoids Screen 03/22/18 03/22/18 03/22/18 06:00 06:00 06:00 WBC RBC Hgb Hct MCV MCH MCHC RDW Plt Count Manual Plt Count MPV Gran % Lymph % (Auto) [place] % (Auto) Eos % (Auto) Baso % (Auto) Gran # Lymph # (Auto) [place] # (Auto) Eos # (Auto) Baso # (Auto) Haptoglobin < 20.0 L pCO2 25 L pO2 159.0 H HCO3 20.4 L ABG pH 7.52 H ABG Total CO2 21.2 L ABG O2 Saturation 99.9 H ABG O2 Content 14.5 L ABG Base Excess -1.4 ABG Hemoglobin 10.4 L ABG Carboxyhemoglobin 1.5 POC ABG HHb (Measured) 0.1 ABG Methemoglobin 1.4 ABG O2 Capacity 14.5 L Hgb O2 Saturation 97.1 FiO2 50.0 Sodium Potassium Chloride Carbon Dioxide Anion Gap BUN Creatinine Est GFR ( Amer) Est GFR (Non-Af Amer) POC Glucose (mg/dL) Random Glucose Calcium Phosphorus Magnesium Total Bilirubin Direct Bilirubin 1.4 H AST ALT Alkaline Phosphatase Lactate Dehydrogenase 617 Total Protein Albumin Globulin Albumin/Globulin Ratio Procalcitonin Prolactin Urine Opiates Screen Ur Barbiturates Screen Ur Phencyclidine Scrn Ur Amphetamines Screen U Benzodiazepines Scrn U Oth Cocaine Metabols U Cannabinoids Screen 03/22/18 03/22/18 03/22/18 07:33 11:02 15:54 WBC RBC Hgb Hct MCV MCH MCHC RDW Plt Count Manual Plt Count MPV Gran % Lymph % (Auto) [place] % (Auto) Eos % (Auto) Baso % (Auto) Gran # Lymph # (Auto) [place] # (Auto) Eos # (Auto) Baso # (Auto) Haptoglobin pCO2 pO2 HCO3 ABG pH ABG Total CO2 ABG O2 Saturation ABG O2 Content ABG Base Excess ABG Hemoglobin ABG Carboxyhemoglobin POC ABG HHb (Measured) ABG Methemoglobin ABG O2 Capacity Hgb O2 Saturation FiO2 Sodium Potassium Chloride Carbon Dioxide Anion Gap BUN Creatinine Est GFR ( Amer) Est GFR (Non-Af Amer) POC Glucose (mg/dL) 130 H 122 H 126 H Random Glucose Calcium Phosphorus Magnesium Total Bilirubin Direct Bilirubin AST ALT Alkaline Phosphatase Lactate Dehydrogenase Total Protein Albumin Globulin Albumin/Globulin Ratio Procalcitonin Prolactin Urine Opiates Screen Ur Barbiturates Screen Ur Phencyclidine Scrn Ur Amphetamines Screen U Benzodiazepines Scrn U Oth Cocaine Metabols U Cannabinoids Screen Addendum Addendum: 03/22/18 19:23 ICU Attending Addendum: Patient seen and examined. Case reviewed on round with housestaff. Agree with resident note above with the following additions/exceptions: 62F with EtOH abuse, cirrhosis, esophageal varices (s/p banding 2014), thrombocytopenia admitted with seizures, intracranial hemorrhage now intubated. CT head showed left occipital lobe hemorrhage, 2.8x2.[address] shows increase in L occip hemorrhage Her plat dropped despite transfusion Etiology unclear. Is not consistent with hypertensive stroke. No history of trauma. Possible underlying mass/met? May still be drinking and how having etoh w/d seizure For now will cont to provide supportive care HOB > 30 degrees Keep BP 140-120 systolic Avoid hypertension - added propfol as BP rising Will use versed drip, Ativan prn and cont with keppra Neuro checks q hour MRI/MRA eventually EEG Keep intubated, on low VT ventilation Transfuse another 4 units plat with goal > 100 for ICH If play < 100 - TRANSFUSE more plat 2 units FFP for elevated INR I considered steroids however no evidence of mass, shift or increase intracranial pressure. D/w Neurosurg who advised no benefit at this time for steroids As per my discussion with Dr. Patterson, he requested hypertonic saline which will be ordered, monitor BMP, avoid acute rise in Na+ >8meq over 12 hours. sodium goal 145-[address] TLC Pepcid instead of PPI for gi ppx and hx of esoph varicies Rest of care as noted above. Samantha Byers MD [facility] time : 40 mins
[2018-03-22 12:18] LABS: BILIRUBIN,DIRECT 1.4 mg/dL (0.0-0.4)
--- NOTE | 2018-03-22 12:31 | RAD ---
HISTORY: intubated COMPARISON: Chest x-ray performed 03/21/18 TECHNIQUE: Chest, one view. FINDINGS: Distal tip of the endotracheal tube terminates approximately 2.1 cm above the zahra. LUNGS: Moderate interstitial prominence may reflect infection or edema.Mild left lower lobe atelectasis/ infiltrate. Biapical pleural thickening. PLEURA: No significant pleural effusion identified. No definite pneumothorax . CARDIOVASCULAR: Cardiomegaly. OSSEOUS STRUCTURES: Degenerative changes. VISUALIZED UPPER ABDOMEN: Unremarkable. OTHER FINDINGS: None. IMPRESSION: Endotracheal tube terminates approximately 2.1 cm above the zahra. Moderate interstitial prominence may reflect infection or edema. Mild left lower lobe atelectasis/ infiltrate. Biapical pleural thickening.
--- NOTE | 2018-03-22 12:55 | CT ---
Date of service: 03/22/[address] Indication: Hemorrhagic stroke, re- expanding bleed? Comparison: Noncontrast head CT performed 03/21/18 Findings: Extensive streak artifact obscures evaluation of the skullbase. Within the left occipital parietal lobe there is increasing region of hemorrhage measuring approximately 5.3 x 3.3 cm, previously approximately 2.2 x 2.2 cm. Interval development of intraventricular extension of hemorrhage involving the lateral and 3rd ventricles. Increasing dilatation of the left lateral ventricle suggests a degree of CSF flow obstruction. Spleen and left occipital parietal low-attenuation consistent with edema/infarction. Mastoid air cells appear clear. Sinuses appear unremarkable. No acute osseus abnormality is detected. Interval intubation. Impression: Increasing left occipital lobe hemorrhage. Intraventricular extension of hemorrhage involving the left lateral and 3rd ventricles. The associated low-attenuation consistent with edema and/or infarction. Increasing dilatation of the left lateral ventricle. Preliminary impression was provided by virtual radiologic.
[2018-03-22] MEDS: Propofol 10 mg/ml 1,000 MG/100 ML VIAL IV PRN ×2 (13:56→21:48)
[2018-03-22] MEDS ORDERED: Sodium Chloride 3% 250 ML IV SCH (15:00)
--- NOTE | 2018-03-22 16:36 | CP.PCM.PN ---
Subjective - Date & Time of Evaluation Date of Evaluation: 03/22/18 Time of Evaluation: 16:33 - Subjective Subjective: Mrs. Collado was seen and examined today in the ICU. She is sedated on propofol and midazolam, but responds to painful stimulus and moves all extremities. Brainstem function is intact. Pupils are reactive. CT scan of the head appears to be worse with edema, increased size of bleed and intraventricular extension. There is concern that there may be an underlying mass. More history was obtained and is consistent with advanced liver disease due to chronic alcoholism. Objective - Vital Signs/Intake and Output Vital Signs (last 24 hours): Temp Pulse Resp BP Pulse Ox 98.1 F 70 20 135/76 100 03/22/18 06:07 03/22/18 16:00 03/22/18 06:11 03/22/18 16:00 03/22/18 16:00 Intake and Output: 03/22/18 03/22/18 06:59 18:59 Intake Total 1820 Output Total 1310 Balance 510 - Medications Medications: Current Medications Sodium Chloride (Sodium Chloride 0.9%) 1,000 mls @ 100 mls/hr IV .Q10H [facility] Last Admin: 03/22/18 01:00 Dose: 100 mls/hr Midazolam 100 mg/100ml in NS (Midazolam 100 Mg/100ml In Ns) 100 mg in 100 mls @ 1 mls/hr IV .Q24H PRN; Protocol; 1 MG/HR PRN Reason: Seizure activity Last Titration: 03/21/18 20:00 Dose: 2 mg/hr, 2 mls/hr Levetiracetam (Keppra 500mg Ivpb) 500 mg in 100 mls @ 460 mls/hr IVPB Q12 [facility] Last Admin: 03/22/18 09:19 Dose: 460 mls/hr Propofol (Diprivan) 1,000 mg in 100 mls @ 2 mls/hr IV .Q24H PRN; Protocol; 5 MCG/KG/MIN PRN Reason: TITRATE PER MD ORDER Last Admin: 03/22/18 13:56 Dose: 5 mcg/kg/min, 2 mls/hr Sodium Chloride (Hypertonic Saline 3%) 500 mls @ 30 mls/hr IV .[id number] [facility] Pantoprazole Sodium (Protonix Inj) 40 mg IVP DAILY [facility] Last Admin: 03/22/18 09:19 Dose: 40 mg Sodium Chloride (Hypertonic Saline 3%) 50 ml IV ONCE ONE Stop: 03/22/18 16:31 - Labs Labs: 03/22/18 05:15 03/22/18 05:15 PT 16.4 SECONDS (9.4-12.5) H 03/21/18 13:55 INR 1.43 03/21/18 13:55 APTT 37.5 Seconds (25.1-36.5) H 03/21/18 13:55 - Neurological Exam Additional comments: Intubated, sedated, pupils reactive, positive corneals and breathing over the ventilator. Assessment and Plan (1) Intracranial hemorrhage Assessment & Plan: There is extension of ICH with more edema and some herniation. Will start 3% hypertonic saline and continue strict BP control to maintain SBP 110-140 mm Hg. Keep head of bed elevated. Treat with coagulopathy per hematology and primary team. Continue propofol and midazolam. Will obtain EEG when possible. Status: Acute
--- NOTE | 2018-03-22 16:46 | US ---
HISTORY: Eelvated Alk Phos/Tbili COMPARISON: None. TECHNIQUE: Sonographic evaluation of the abdomen. FINDINGS: Examination limited due to patient condition. LIVER: Nodular hepatic contour. Measures 17.4 cm in sagittal dimension. Echogenic liver may be seen in setting of hepatic parenchymal disease or fatty infiltration. No focal hepatic mass identified. The main portal vein appears patent with normal directional flow. No intrahepatic bile duct dilatation. Small perihepatic ascites. GALLBLADDER: Unremarkable. No gallstones. No gallbladder wall thickening. Negative sonographic Burns's sign as assessed by the post form remover. COMMON BILE DUCT: Measures 5 mm. PANCREAS: Not well visualized. RIGHT KIDNEY: Measures 11.3 x 5.1 x 5.2 cm. No obstructing calculus or hydronephrosis identified. LEFT KIDNEY: Measures 10.9 x 5.2 x 5.2 cm. No obstructing calculus or hydronephrosis identified. SPLEEN: Measures approximately 14.7 cm. AORTA: Limited views appear unremarkable. IVC: Limited views appear unremarkable. OTHER FINDINGS: None. IMPRESSION: Limited study due to patient condition. Hepatomegaly. Splenomegaly. Echogenic liver may be seen in setting of hepatic parenchymal disease or fatty infiltration. Nodular hepatic contour. Correlate clinically for cirrhosis. Small ascites.
[2018-03-22] MEDS: Sodium Chloride 3% 500 ML IV SCH (19:14)
[2018-03-22 20:47] LABS: BLOOD UREA NITROGEN 10 mg/dL (7-21); CALCIUM 8.5 mg/dL (8.4-10.5); GFR NON-AFRICAN AMERICAN > 60
[2018-03-22 21:37] LABS: HEMOGLOBIN 9.5 g/dL (12.0-16.0); MEAN CORPUSCULAR HEMOGLOBIN 31.6 pg (25.0-35.0); MEAN CORPUSCULAR HGB CONC 34.3 g/dl (31.0-37.0); MEAN PLATELET VOLUME 9.3 fl (7.0-11.0); RBC 3.01 10^6/uL (3.5-6.1); RED CELL DISTRIBUTION WIDTH 16.4 % (11.5-14.5); WHITE BLOOD COUNT 9.4 10^3/ul (4.5-11.0)
[2018-03-22] MEDS: Midazolam 100 mg/100ml in NS 100 MG/100 ML SOL IV PRN (22:34)
[2018-03-23 02:26] LABS: BLOOD UREA NITROGEN 10 mg/dL (7-21); CALCIUM 8.7 mg/dL (8.4-10.5); GFR NON-AFRICAN AMERICAN > 60
[2018-03-23] MEDS: Sodium Chloride 3% 500 ML IV SCH ×2 (03:43→11:26)
[2018-03-23 06:32] LABS: GRAN # 6.78 (1.4-6.5); GRAN % 86.1 % (50.0-68.0); HEMOGLOBIN 9.9 g/dL (12.0-16.0); LYMPH # 0.5 (1.2-3.4); LYMPH % 6.1 % (22.0-35.0); MEAN CELL VOLUME 93.5 fl (80.0-105.0); MEAN CORPUSCULAR HEMOGLOBIN 31.9 pg (25.0-35.0); MEAN CORPUSCULAR HGB CONC 34.1 g/dl (31.0-37.0); MEAN PLATELET VOLUME 9.7 fl (7.0-11.0); MONO # 0.6 (0.1-0.6); MONO % 7.8 % (1.0-6.0); RBC 3.1 10^6/uL (3.5-6.1); RED CELL DISTRIBUTION WIDTH 16.8 % (11.5-14.5); WHITE BLOOD COUNT 7.9 10^3/ul (4.5-11.0)
[2018-03-23 06:43] LABS: INR 1.55; PARTIAL THROMBOPLASTIN TIME 30.4 Seconds (25.1-36.5)
[2018-03-23] MEDS: Propofol 10 mg/ml 1,000 MG/100 ML VIAL IV PRN ×3 (07:12→17:17)
[2018-03-23 07:38] LABS: BILIRUBIN,DIRECT 1.3 mg/dL (0.0-0.4)
[2018-03-23] MEDS: Sodium Chloride 0.9% 1,000 ML IV SCH (07:59)
--- NOTE | 2018-03-23 08:27 | CP.CCUPN ---
<Mary Mena - Last Filed: 03/23/18 15:47> CCU Subjective - Physician Review Subjective (Free Text): ICU Progress note for Dr. Zeeshan Mena, PGY 1 Patient seen and examined at bedside this Am. No acute events overnight per nursing. Patient is tolerating ventilation well, BP has been well controlled overnight. Assessment limited d/t intubation and sedation. No seizure activity observed overnight. 03/23/18 08:25 CCU Objective - Vital Signs / Intake & Output Vital Signs (Last 4 hours): Vital Signs Pulse BP Pulse Ox 03/23/18 06:00 71 03/23/18 05:20 70 100 03/23/18 05:10 69 100 03/23/18 05:00 71 136/76 100 03/23/18 04:50 70 100 03/23/18 04:40 69 100 03/23/18 04:30 69 100 Intake and Output (Last 8hrs): Intake & Output 03/22/18 03/23/18 03/23/18 22:59 06:59 14:59 Intake Total 848 1255 100 Output Total 525 1250 Balance 323 5 100 Weight 138 lb 12.8 oz Intake: IV 848 740 100 Left Forearm 120 Left Hand 100 Right Antecubital 200 Right Hand 500 60 Right Internal Jugular 460 Oral 0 Blood Product 515 Output: Urine 525 1250 Urethral (Donahue) 525 1250 Other: # Bowel Movements 0 0 - Physical Exam Head: Positive for: Atraumatic, Normocephalic Pupils: Positive for: PERRL, Sluggish, Other Mouth: Positive for: Other (Some oropharyngeal trauma and bleeding 2/2 intubation; ET tube in place ) Respiratory/Chest: Positive for: Clear to Auscultation, Good Air Exchange. Negative for: Respiratory Distress Cardiovascular: Positive for: Regular Rate and Rhythm, Normal S1, S2 Abdomen: Positive for: Normal Bowel Sounds. Negative for: Tenderness, Distention, Guarding Upper Extremity: Positive for: Normal Inspection, NORMAL PULSES. Negative for: Edema Lower Extremity: Positive for: Normal Inspection, NORMAL PULSES. Negative for: Edema Neurological: Positive for: Other (intubated and sedated, no twitching noted) Skin: Positive for: Warm, Dry, Normal Color - Medications Active Medications: Active Medications Generic Name Dose Route Start Last Admin Trade Name Freq PRN Reason Stop Dose Admin Famotidine 20 mg 03/23/18 10:00 Pepcid IVP DAILY STEVEN Sodium Chloride 1,000 mls @ 100 mls/hr 03/21/18 14:00 03/23/18 07:59 Sodium Chloride 0.9% IV Not Given .Q10H STEVEN Midazolam 100 mg/100ml in NS 100 mg in 100 mls @ 1 mls/hr 03/21/18 15:20 09/07 22:34 Midazolam 100 Mg/100ml In Ns IV 5 mg/hr .Q24H PRN 5 mls/hr Seizure activity Administration Protocol 1 MG/HR Levetiracetam 500 mg in 100 mls @ 460 mls/hr 03/22/18 10:00 03/22/18 22:03 Keppra 500mg Ivpb IVPB 460 mls/hr Q12 STEVEN Administration Propofol 1,000 mg in 100 mls @ 2 mls/hr 03/22/18 14:35 03/23/18 07:12 Diprivan IV 25 mcg/kg/min .Q24H PRN 10.002 mls/hr TITRATE PER MD ORDER Administration Protocol 5 MCG/KG/MIN Sodium Chloride 500 mls @ 30 mls/hr 03/22/18 15:00 03/23/18 03:43 Hypertonic Saline 3% IV 30 mls/hr .[id number] STEVEN Administration - Patient Studies Lab Studies: Microbiology Studies 03/21/18 18:30 Blood Culture - Preliminary Blood-Venous NO GROWTH AFTER 24 HOURS 03/21/18 18:00 Blood Culture - Preliminary Blood-Venous NO GROWTH AFTER 24 HOURS Lab Studies 03/23/18 03/23/18 03/23/18 Range/Units 06:00 06:00 06:00 WBC (4.5-11.0) 10^3/ul RBC (3.5-6.1) 10^6/uL Hgb (12.0-16.0) g/dL Hct (36.0-48.0) % MCV (80.0-105.0) fl MCH (25.0-35.0) pg MCHC (31.0-37.0) g/dl RDW (11.5-14.5) % Plt Count (120.0-450.0) 10^3/uL Manual Plt Count (120-450) K/mm3 MPV (7.0-11.0) fl Gran % (50.0-68.0) % Lymph % (Auto) (22.0-35.0) % Heard % (Auto) (1.0-6.0) % Eos % (Auto) (1.5-5.0) % Baso % (Auto) (0.0-3.0) % Gran # (1.4-6.5) Lymph # (Auto) (1.2-3.4) Heard # (Auto) (0.1-0.6) Eos # (Auto) (0.0-0.7) Baso # (Auto) (0.0-2.0) K/mm3 Haptoglobin (30.0-200.0) mg/dL PT 18.0 H (9.4-12.5) SECONDS INR 1.55 APTT 30.4 (25.1-36.5) Seconds Sodium (132-148) mmol/L Potassium (3.6-5.0) mmol/L Chloride (98-107) mmol/L Carbon Dioxide (21-33) mmol/L Anion Gap (10-20) BUN (7-21) mg/dL Creatinine (0.7-1.2) mg/dl Est GFR ( Amer) Est GFR (Non-Af Amer) POC Glucose (mg/dL) (65-110) mg/dL Random Glucose (70-110) mg/dL Serum Osmolality (272-300) mosm/kg Calcium (8.4-10.5) mg/dL Phosphorus 2.5 (2.5-4.5) mg/dL Magnesium 1.9 (1.7-2.2) mg/dL Direct Bilirubin 1.3 H (0.0-0.4) mg/dL Lactate Dehydrogenase (333-699) U/L TSH 3rd Generation 0.48 (0.46-4.68) mIU/mL Prolactin (3.0-18.9) ng/mL Mycoplasma pneumon IgM (NEGATIVE) WB Flow Cytometry 03/23/18 03/23/18 03/23/18 Range/Units 06:00 06:00 02:04 WBC 7.9 (4.5-11.0) 10^3/ul RBC 3.10 L (3.5-6.1) 10^6/uL Hgb 9.9 L (12.0-16.0) g/dL Hct 29.0 L (36.0-48.0) % MCV 93.5 (80.0-105.0) fl MCH 31.9 (25.0-35.0) pg MCHC 34.1 (31.0-37.0) g/dl RDW 16.8 H (11.5-14.5) % Plt Count 78 L (120.0-450.0) 10^3/uL Manual Plt Count (120-450) K/mm3 MPV 9.7 (7.0-11.0) fl Gran % 86.1 H (50.0-68.0) % Lymph % (Auto) 6.1 L (22.0-35.0) % Heard % (Auto) 7.8 H (1.0-6.0) % Eos % (Auto) 0.0 L (1.5-5.0) % Baso % (Auto) 0.0 (0.0-3.0) % Gran # 6.78 H (1.4-6.5) Lymph # (Auto) 0.5 L (1.2-3.4) Heard # (Auto) 0.6 (0.1-0.6) Eos # (Auto) 0.0 (0.0-0.7) Baso # (Auto) 0.00 (0.0-2.0) K/mm3 Haptoglobin (30.0-200.0) mg/dL PT (9.4-12.5) SECONDS INR APTT (25.1-36.5) Seconds Sodium 151 H (132-148) mmol/L Potassium 3.3 L (3.6-5.0) mmol/L Chloride 119 H (98-107) mmol/L Carbon Dioxide 22 (21-33) mmol/L Anion Gap 13 (10-20) BUN 10 (7-21) mg/dL Creatinine 0.4 L (0.7-1.2) mg/dl Est GFR ( Amer) > 60 Est GFR (Non-Af Amer) > 60 POC Glucose (mg/dL) (65-110) mg/dL Random Glucose 103 (70-110) mg/dL Serum Osmolality (272-300) mosm/kg Calcium 8.7 (8.4-10.5) mg/dL Phosphorus (2.5-4.5) mg/dL Magnesium (1.7-2.2) mg/dL Direct Bilirubin (0.0-0.4) mg/dL Lactate Dehydrogenase (333-699) U/L TSH 3rd Generation (0.46-4.68) mIU/mL Prolactin (3.0-18.9) ng/mL Mycoplasma pneumon IgM (NEGATIVE) WB Flow Cytometry Cancelled 03/22/18 03/22/18 03/22/18 Range/Units 22:23 21:28 21:28 WBC 9.4 D (4.5-11.0) 10^3/ul RBC 3.01 L (3.5-6.1) 10^6/uL Hgb 9.5 L (12.0-16.0) g/dL Hct 27.7 L (36.0-48.0) % MCV 92.0 (80.0-105.0) fl MCH 31.6 (25.0-35.0) pg MCHC 34.3 (31.0-37.0) g/dl RDW 16.4 H (11.5-14.5) % Plt Count 78 L (120.0-450.0) 10^3/uL Manual Plt Count (120-450) K/mm3 MPV 9.3 (7.0-11.0) fl Gran % (50.0-68.0) % Lymph % (Auto) (22.0-35.0) % Heard % (Auto) (1.0-6.0) % Eos % (Auto) (1.5-5.0) % Baso % (Auto) (0.0-3.0) % Gran # (1.4-6.5) Lymph # (Auto) (1.2-3.4) Heard # (Auto) (0.1-0.6) Eos # (Auto) (0.0-0.7) Baso # (Auto) (0.0-2.0) K/mm3 Haptoglobin (30.0-200.0) mg/dL PT (9.4-12.5) SECONDS INR APTT (25.1-36.5) Seconds Sodium (132-148) mmol/L Potassium (3.6-5.0) mmol/L Chloride (98-107) mmol/L Carbon Dioxide (21-33) mmol/L Anion Gap (10-20) BUN (7-21) mg/dL Creatinine (0.7-1.2) mg/dl Est GFR ( Amer) Est GFR (Non-Af Amer) POC Glucose (mg/dL) 95 (65-110) mg/dL Random Glucose (70-110) mg/dL Serum Osmolality 302 H (272-300) mosm/kg Calcium (8.4-10.5) mg/dL Phosphorus (2.5-4.5) mg/dL Magnesium (1.7-2.2) mg/dL Direct Bilirubin (0.0-0.4) mg/dL Lactate Dehydrogenase (333-699) U/L TSH 3rd Generation (0.46-4.68) mIU/mL Prolactin (3.0-18.9) ng/mL Mycoplasma pneumon IgM (NEGATIVE) WB Flow Cytometry 03/22/18 03/22/18 03/22/18 Range/Units 20:35 15:54 11:02 WBC (4.5-11.0) 10^3/ul RBC (3.5-6.1) 10^6/uL Hgb (12.0-16.0) g/dL Hct (36.0-48.0) % MCV (80.0-105.0) fl MCH (25.0-35.0) pg MCHC (31.0-37.0) g/dl RDW (11.5-14.5) % Plt Count (120.0-450.0) 10^3/uL Manual Plt Count (120-450) K/mm3 MPV (7.0-11.0) fl Gran % (50.0-68.0) % Lymph % (Auto) (22.0-35.0) % Heard % (Auto) (1.0-6.0) % Eos % (Auto) (1.5-5.0) % Baso % (Auto) (0.0-3.0) % Gran # (1.4-6.5) Lymph # (Auto) (1.2-3.4) Heard # (Auto) (0.1-0.6) Eos # (Auto) (0.0-0.7) Baso # (Auto) (0.0-2.0) K/mm3 Haptoglobin (30.0-200.0) mg/dL PT (9.4-12.5) SECONDS INR APTT (25.1-36.5) Seconds Sodium 150 H (132-148) mmol/L Potassium 3.6 (3.6-5.0) mmol/L Chloride 117 H (98-107) mmol/L Carbon Dioxide 23 (21-33) mmol/L Anion Gap 13 (10-20) BUN 10 (7-21) mg/dL Creatinine 0.5 L (0.7-1.2) mg/dl Est GFR ( Amer) > 60 Est GFR (Non-Af Amer) > 60 POC Glucose (mg/dL) 126 H 122 H (65-110) mg/dL Random Glucose 107 (70-110) mg/dL Serum Osmolality (272-300) mosm/kg Calcium 8.5 (8.4-10.5) mg/dL Phosphorus (2.5-4.5) mg/dL Magnesium (1.7-2.2) mg/dL Direct Bilirubin (0.0-0.4) mg/dL Lactate Dehydrogenase (333-699) U/L TSH 3rd Generation (0.46-4.68) mIU/mL Prolactin (3.0-18.9) ng/mL Mycoplasma pneumon IgM (NEGATIVE) WB Flow Cytometry 03/22/18 03/22/18 03/22/18 Range/Units 06:00 06:00 05:15 WBC (4.5-11.0) 10^3/ul RBC (3.5-6.1) 10^6/uL Hgb (12.0-16.0) g/dL Hct (36.0-48.0) % MCV (80.0-105.0) fl MCH (25.0-35.0) pg MCHC (31.0-37.0) g/dl RDW (11.5-14.5) % Plt Count (120.0-450.0) 10^3/uL Manual Plt Count 48 L* (120-450) K/mm3 MPV (7.0-11.0) fl Gran % (50.0-68.0) % Lymph % (Auto) (22.0-35.0) % Heard % (Auto) (1.0-6.0) % Eos % (Auto) (1.5-5.0) % Baso % (Auto) (0.0-3.0) % Gran # (1.4-6.5) Lymph # (Auto) (1.2-3.4) Heard # (Auto) (0.1-0.6) Eos # (Auto) (0.0-0.7) Baso # (Auto) (0.0-2.0) K/mm3 Haptoglobin < 20.0 L (30.0-200.0) mg/dL PT (9.4-12.5) SECONDS INR APTT (25.1-36.5) Seconds Sodium (132-148) mmol/L Potassium (3.6-5.0) mmol/L Chloride (98-107) mmol/L Carbon Dioxide (21-33) mmol/L Anion Gap (10-20) BUN (7-21) mg/dL Creatinine (0.7-1.2) mg/dl Est GFR ( Amer) Est GFR (Non-Af Amer) POC Glucose (mg/dL) (65-110) mg/dL Random Glucose (70-110) mg/dL Serum Osmolality (272-300) mosm/kg Calcium (8.4-10.5) mg/dL Phosphorus (2.5-4.5) mg/dL Magnesium (1.7-2.2) mg/dL Direct Bilirubin 1.4 H (0.0-0.4) mg/dL Lactate Dehydrogenase 617 (333-699) U/L TSH 3rd Generation (0.46-4.68) mIU/mL Prolactin (3.0-18.9) ng/mL Mycoplasma pneumon IgM (NEGATIVE) WB Flow Cytometry 03/21/18 03/21/18 Range/Units 18:30 18:30 WBC (4.5-11.0) 10^3/ul RBC (3.5-6.1) 10^6/uL Hgb (12.0-16.0) g/dL Hct (36.0-48.0) % MCV (80.0-105.0) fl MCH (25.0-35.0) pg MCHC (31.0-37.0) g/dl RDW (11.5-14.5) % Plt Count (120.0-450.0) 10^3/uL Manual Plt Count (120-450) K/mm3 MPV (7.0-11.0) fl Gran % (50.0-68.0) % Lymph % (Auto) (22.0-35.0) % Heard % (Auto) (1.0-6.0) % Eos % (Auto) (1.5-5.0) % Baso % (Auto) (0.0-3.0) % Gran # (1.4-6.5) Lymph # (Auto) (1.2-3.4) Heard # (Auto) (0.1-0.6) Eos # (Auto) (0.0-0.7) Baso # (Auto) (0.0-2.0) K/mm3 Haptoglobin (30.0-200.0) mg/dL PT (9.4-12.5) SECONDS INR APTT (25.1-36.5) Seconds Sodium (132-148) mmol/L Potassium (3.6-5.0) mmol/L Chloride (98-107) mmol/L Carbon Dioxide (21-33) mmol/L Anion Gap (10-20) BUN (7-21) mg/dL Creatinine (0.7-1.2) mg/dl Est GFR ( Amer) Est GFR (Non-Af Amer) POC Glucose (mg/dL) (65-110) mg/dL Random Glucose (70-110) mg/dL Serum Osmolality (272-300) mosm/kg Calcium (8.4-10.5) mg/dL Phosphorus (2.5-4.5) mg/dL Magnesium (1.7-2.2) mg/dL Direct Bilirubin (0.0-0.4) mg/dL Lactate Dehydrogenase (333-699) U/L TSH 3rd Generation (0.46-4.68) mIU/mL Prolactin 41.6 H (3.0-18.9) ng/mL Mycoplasma pneumon IgM Negative (NEGATIVE) WB Flow Cytometry Laboratory Results - last 24 hr 03/21/18 03/21/18 03/22/18 18:30 18:30 05:15 WBC RBC Hgb Hct MCV MCH MCHC RDW Plt Count Manual Plt Count 48 L* MPV Gran % Lymph % (Auto) Heard % (Auto) Eos % (Auto) Baso % (Auto) Gran # Lymph # (Auto) Heard # (Auto) Eos # (Auto) Baso # (Auto) Haptoglobin PT INR APTT Sodium Potassium Chloride Carbon Dioxide Anion Gap BUN Creatinine Est GFR ( Amer) Est GFR (Non-Af Amer) POC Glucose (mg/dL) Random Glucose Serum Osmolality Calcium Phosphorus Magnesium Direct Bilirubin Lactate Dehydrogenase TSH 3rd Generation Prolactin 41.6 H Mycoplasma pneumon IgM Negative WB Flow Cytometry 03/22/18 03/22/18 03/22/18 06:00 06:00 11:02 WBC RBC Hgb Hct MCV MCH MCHC RDW Plt Count Manual Plt Count MPV Gran % Lymph % (Auto) Heard % (Auto) Eos % (Auto) Baso % (Auto) Gran # Lymph # (Auto) Heard # (Auto) Eos # (Auto) Baso # (Auto) Haptoglobin < 20.0 L PT INR APTT Sodium Potassium Chloride Carbon Dioxide Anion Gap BUN Creatinine Est GFR ( Amer) Est GFR (Non-Af Amer) POC Glucose (mg/dL) 122 H Random Glucose Serum Osmolality Calcium Phosphorus Magnesium Direct Bilirubin 1.4 H Lactate Dehydrogenase 617 TSH 3rd Generation Prolactin Mycoplasma pneumon IgM WB Flow Cytometry 03/22/18 03/22/18 03/22/18 15:54 20:35 21:28 WBC 9.4 D RBC 3.01 L Hgb 9.5 L Hct 27.7 L MCV 92.0 MCH 31.6 MCHC 34.3 RDW 16.4 H Plt Count 78 L Manual Plt Count MPV 9.3 Gran % Lymph % (Auto) Heard % (Auto) Eos % (Auto) Baso % (Auto) Gran # Lymph # (Auto) Heard # (Auto) Eos # (Auto) Baso # (Auto) Haptoglobin PT INR APTT Sodium 150 H Potassium 3.6 Chloride 117 H Carbon Dioxide 23 Anion Gap 13 BUN 10 Creatinine 0.5 L Est GFR ( Amer) > 60 Est GFR (Non-Af Amer) > 60 POC Glucose (mg/dL) 126 H Random Glucose 107 Serum Osmolality Calcium 8.5 Phosphorus Magnesium Direct Bilirubin Lactate Dehydrogenase TSH 3rd Generation Prolactin Mycoplasma pneumon IgM WB Flow Cytometry 03/22/18 03/22/18 03/23/18 21:28 22:23 02:04 WBC RBC Hgb Hct MCV MCH MCHC RDW Plt Count Manual Plt Count MPV Gran % Lymph % (Auto) Heard % (Auto) Eos % (Auto) Baso % (Auto) Gran # Lymph # (Auto) Heard # (Auto) Eos # (Auto) Baso # (Auto) Haptoglobin PT INR APTT Sodium 151 H Potassium 3.3 L Chloride 119 H Carbon Dioxide 22 Anion Gap 13 BUN 10 Creatinine 0.4 L Est GFR ( Amer) > 60 Est GFR (Non-Af Amer) > 60 POC Glucose (mg/dL) 95 Random Glucose 103 Serum Osmolality 302 H Calcium 8.7 Phosphorus Magnesium Direct Bilirubin Lactate Dehydrogenase TSH 3rd Generation Prolactin Mycoplasma pneumon IgM WB Flow Cytometry 03/23/18 03/23/18 03/23/18 06:00 06:00 06:00 WBC 7.9 RBC 3.10 L Hgb 9.9 L Hct 29.0 L MCV 93.5 MCH 31.9 MCHC 34.1 RDW 16.8 H Plt Count 78 L Manual Plt Count MPV 9.7 Gran % 86.1 H Lymph % (Auto) 6.1 L Heard % (Auto) 7.8 H Eos % (Auto) 0.0 L Baso % (Auto) 0.0 Gran # 6.78 H Lymph # (Auto) 0.5 L Heard # (Auto) 0.6 Eos # (Auto) 0.0 Baso # (Auto) 0.00 Haptoglobin PT 18.0 H INR 1.55 APTT 30.4 Sodium Potassium Chloride Carbon Dioxide Anion Gap BUN Creatinine Est GFR ( Amer) Est GFR (Non-Af Amer) POC Glucose (mg/dL) Random Glucose Serum Osmolality Calcium Phosphorus Magnesium Direct Bilirubin Lactate Dehydrogenase TSH 3rd Generation Prolactin Mycoplasma pneumon IgM WB Flow Cytometry Cancelled 03/23/18 03/23/18 06:00 06:00 WBC RBC Hgb Hct MCV MCH MCHC RDW Plt Count Manual Plt Count MPV Gran % Lymph % (Auto) Heard % (Auto) Eos % (Auto) Baso % (Auto) Gran # Lymph # (Auto) Heard # (Auto) Eos # (Auto) Baso # (Auto) Haptoglobin PT INR APTT Sodium Potassium Chloride Carbon Dioxide Anion Gap BUN Creatinine Est GFR ( Amer) Est GFR (Non-Af Amer) POC Glucose (mg/dL) Random Glucose Serum Osmolality Calcium Phosphorus 2.5 Magnesium 1.9 Direct Bilirubin 1.3 H Lactate Dehydrogenase TSH 3rd Generation 0.48 Prolactin Mycoplasma pneumon IgM WB Flow Cytometry Fingerstick Blood Sugar Results: 95 Review of Systems - Review of Systems All systems: reviewed and no additional remarkable complaints except Review of Systems: as per HPI Critical Care Progress Note - Ventilator Checklist Head of Bed 30 Degrees: Yes PUD Prophalyxis: Yes DVT Prophylaxis: Yes - Vent Settings MODE:: PRVC TIDAL VOLUME:: 400 RESP RATE:: 20 FIO2:: 50 PEEP:: 5 - Extremities/Vascular Does the Patient have a Central Venous Catheter?: Yes Insertion Site: Internal Jugular Vein Does the Patient need a Central Venous Catheter?: Yes (need for PRBC/PLT) Does the Patient have a Donahue Catheter?: Yes Does the Patient need a Donahue Catheter?: Yes (unable to ambulate d/t intubation/ sedation) Catheter Insertion Criteria: Need for accurate measurement of output in critically ill patient - Prophylaxis GI Prophylaxis GI: Pepsid - Prophylaxis DVT Prophylaxis DVT: SCDs Assessment/Plan - Assessment and Plan (Free Text) Assessment: 62 year old female with PMH cirrhosis, esophageal varices requiring banding, spinal stenosis, arthritis, alcohol abuse, [place] [facility] [place], requiring intubation in ED. Found to have 2x2 CM hemorrhagic stroke which has progressed to 5x5 9/ AM. Currently intubated and sedated on propofol drip. Plan: Neuro : - Unresponsive, + twitching body movements noted on admission no longer present - C/w keppra 500 BID - wean Midazolam today - Started Propofol Drip - c/w Hypertonic Saline 3% @ 30cc/hr; monitor Na (<155) and Serum Osm (<325) - Seizure precautions, neuro checks. - CT head showed hemorrhage within the medial left occipital lobe measuring approximately 2.8 x 2.8 cm with associated edema/necrosis. This finding exerts mass effect on the atrium of the ventricles anterior laterally. Location of this hemorrhage is atypical for hypertensive hemorrhage. Considerations include atypical hypertensive hemorrhage, underlying vascular lesion, hemorrhagic tumor is considered less likely. - 03/22 CT Head showed increasing left occipital lobe hemorrhage 5.3x3.3cm from 2.2x2.2cm. Intraventricular extension of hemorrhage involving left lateral and 3rd ventricles. Increasing dilatation of the left lateral ventricle. - Will keep BP goals: SBP 120-140/80-90. Consider cardene drip if needed. - Neurosurgery on board. No acute surgical intervention. Keep HOB>30 degrees. - Neurology Following - Discussed w/ neurosurgery use of acute steroid therapy in setting of ICH; There is no need for acute steroid therapy at this time. CV: - Keep BP goal 120-140/80-90. - Hemodynamically stable. - Continue to monitor. Pulm: - Intubated on PRVC mode. - Maintain O2 sat>92-94% - Continue with HOB elevation> 35 degrees, aspiration precautions. - Continue with protected lung ventilation strategies with TV of 6 ml/kg of IBW , plateau pressure less than 35, head of bed elevation above 35 degrees, pulm toileting - Decrease respiratory rate to 16 and FiO2 to 40 GI: - NPO. Continue with Protonix. Renal : - BUN/Cr 12/0.4 - UOP appropriate - Replace lytes, maintain euvolemia. - Continue to monitor. ID: [id number], no leukocytosis. - sent for blood culture, urine culture, procal, UA - Procal 0.13 low - CXR Chronic interstitial markings. Patchy left lower lobe atelectasis/ infiltrate. Biapical pleural thickening. - Monitor for s/s infection - normal WBC 7.9, patient has been afebrile Endo: Maintain euglycemia. Heme: - Patient historically has had thrombocytopenia - PLT today is 78 from 48 day prior - Post 2U platelet transfusion 03/21, 4 U platelets and 2 FFP 03/22 (INR 1.55 03/23) - Platelet goal set for >100,000 in setting of ICH/ Hemorrhagic stroke - Hematology consulted for thrombocytopenia - Hb dropped from 11 on 03/22 in AM to 9.9 this AM - haptoglobin <20, Direct bili 1.3, total bili 2.8 - transfuse 2 u Platelets today DVT ppx - SCDs in setting of brain hemorrhage GI ppx - Protonix - Date & Time Date: 03/23/18 <Samantha Byers - Last Filed: 03/23/18 16:45> CCU Objective - Vital Signs / Intake & Output Vital Signs (Last 4 hours): Vital Signs Temp Pulse Resp BP 03/23/18 14:00 75 09/03/18 13:12 75 03/23/18 13:10 75 03/23/18 12:48 97.5 F L 76 18 126/69 Intake and Output (Last 8hrs): Intake & Output 03/23/18 03/23/18 03/23/18 06:59 14:59 22:59 Intake Total 1255 759.5 Output Total 1250 Balance 5 759.5 Weight 138 lb 12.8 oz Intake: IV 740 266.5 Left Forearm 120 Left Hand 100 Right Hand 60 Right Internal Jugular 460 Oral 0 Blood Product 515 393 Apheresis Plts Acda Lr 199 2nd Con Unit [id number] Apheresis Plts Acda Lr 194 3rd Con Unit [id number] Other 100 Apheresis Plts Acda Lr 50 2nd Con Unit [id number] Apheresis Plts Acda Lr 50 3rd Con Unit [id number] Output: Urine 1250 Urethral (Donahue) 1250 Other: # Bowel Movements 0 - Medications Active Medications: Active Medications Generic Name Dose Route Start Last Admin Trade Name Freq PRN Reason Stop Dose Admin Famotidine 20 mg 03/23/18 10:00 03/23/18 09:40 Pepcid IVP 20 mg DAILY STEVEN Administration Sodium Chloride 1,000 mls @ 100 mls/hr 03/21/18 14:00 03/23/18 07:59 Sodium Chloride 0.9% IV Not Given .Q10H STEVEN Midazolam 100 mg/100ml in NS 100 mg in 100 mls @ 1 mls/hr 03/21/18 15:20 10/05 11:57 Midazolam 100 Mg/100ml In Ns IV 4 mg/hr .Q24H PRN 4 mls/hr Seizure activity Titration Protocol 1 MG/HR Levetiracetam 500 mg in 100 mls @ 460 mls/hr 03/22/18 10:00 03/23/18 11:24 Keppra 500mg Ivpb IVPB 460 mls/hr Q12 STEVEN Administration Propofol 1,000 mg in 100 mls @ 2 mls/hr 03/22/18 14:35 03/23/18 08:00 Diprivan IV 25 mcg/kg/min .Q24H PRN 10.002 mls/hr TITRATE PER MD ORDER Administration Protocol 5 MCG/KG/MIN Sodium Chloride 500 mls @ 30 mls/hr 03/23/18 09:54 03/23/18 11:26 Hypertonic Saline 3% IV 30 mls/hr .[id number] STEVEN Administration - Patient Studies Lab Studies: Microbiology Studies 03/21/18 18:15 MRSA Culture (Admit) - Final Nose MRSA NOT DETECTED 03/21/18 18:30 Blood Culture - Preliminary Blood-Venous NO GROWTH AFTER 24 HOURS 03/21/18 18:00 Blood Culture - Preliminary Blood-Venous NO GROWTH AFTER 24 HOURS Lab Studies 03/23/18 03/23/18 03/23/18 Range/Units 13:00 11:31 09:00 WBC (4.5-11.0) 10^3/ul RBC (3.5-6.1) 10^6/uL Hgb (12.0-16.0) g/dL Hct (36.0-48.0) % MCV (80.0-105.0) fl MCH (25.0-35.0) pg MCHC (31.0-37.0) g/dl RDW (11.5-14.5) % Plt Count (120.0-450.0) 10^3/uL MPV (7.0-11.0) fl Gran % (50.0-68.0) % Lymph % (Auto) (22.0-35.0) % Heard % (Auto) (1.0-6.0) % Eos % (Auto) (1.5-5.0) % Baso % (Auto) (0.0-3.0) % Gran # (1.4-6.5) Lymph # (Auto) (1.2-3.4) Heard # (Auto) (0.1-0.6) Eos # (Auto) (0.0-0.7) Baso # (Auto) (0.0-2.0) K/mm3 PT (9.4-12.5) SECONDS INR APTT (25.1-36.5) Seconds pCO2 30 L (35-45) mm/Hg pO2 86.0 (80-100) mm/Hg HCO3 20.9 L (21-28) mmol/L ABG pH 7.45 (7.35-7.45) ABG Total CO2 21.8 L (22-28) mmol.L ABG O2 Saturation 99.0 H (95-98) % ABG O2 Content 13.4 L (15-23) ML/dl ABG Base Excess -2.4 L (-2.0-3.0) mmol/L ABG Hemoglobin 9.8 L (11.7-17.4) g/dL ABG Carboxyhemoglobin 1.8 H (0.5-1.5) % POC ABG HHb (Measured) 1.0 (0-5) % ABG Methemoglobin 0.5 (0.0-3.0) % ABG O2 Capacity 13.5 L (16-24) mL/dl Hgb O2 Saturation 96.6 (95.0-98.0) % FiO2 40.0 % Sodium (132-148) mmol/L Potassium (3.6-5.0) mmol/L Chloride (98-107) mmol/L Carbon Dioxide (21-33) mmol/L Anion Gap (10-20) BUN (7-21) mg/dL Creatinine (0.7-1.2) mg/dl Est GFR ( Amer) Est GFR (Non-Af Amer) POC Glucose (mg/dL) 87 (65-110) mg/dL Random Glucose (70-110) mg/dL Serum Osmolality 305 H (272-300) mosm/kg Calcium (8.4-10.5) mg/dL Phosphorus (2.5-4.5) mg/dL Magnesium (1.7-2.2) mg/dL Total Bilirubin (0.2-1.3) mg/dL Direct Bilirubin (0.0-0.4) mg/dL AST (14-36) U/L ALT (7-56) U/L Alkaline Phosphatase (38-126) U/L Total Protein (5.8-8.3) g/dL Albumin (3.0-4.8) g/dL Globulin gm/dL Albumin/Globulin Ratio (1.1-1.8) Vitamin B12 (239-931) pg/mL Folate ng/mL TSH 3rd Generation (0.46-4.68) mIU/mL Hepatitis A IgM Ab (NEGATIVE) Hep Bs Antigen (NEGATIVE) Hep B Core IgM Ab (NEGATIVE) Hepatitis C Antibody (NEGATIVE) HIV-1 Ab Rapid Screen (NON REAC) Mycoplasma pneumon IgM (NEGATIVE) WB Flow Cytometry 03/23/18 03/23/18 03/23/18 Range/Units 08:20 08:15 08:11 WBC (4.5-11.0) 10^3/ul RBC (3.5-6.1) 10^6/uL Hgb (12.0-16.0) g/dL Hct (36.0-48.0) % MCV (80.0-105.0) fl MCH (25.0-35.0) pg MCHC (31.0-37.0) g/dl RDW (11.5-14.5) % Plt Count (120.0-450.0) 10^3/uL MPV (7.0-11.0) fl Gran % (50.0-68.0) % Lymph % (Auto) (22.0-35.0) % Heard % (Auto) (1.0-6.0) % Eos % (Auto) (1.5-5.0) % Baso % (Auto) (0.0-3.0) % Gran # (1.4-6.5) Lymph # (Auto) (1.2-3.4) Heard # (Auto) (0.1-0.6) Eos # (Auto) (0.0-0.7) Baso # (Auto) (0.0-2.0) K/mm3 PT (9.4-12.5) SECONDS INR APTT (25.1-36.5) Seconds pCO2 26 L (35-45) mm/Hg pO2 135.0 H (80-100) mm/Hg HCO3 20.3 L (21-28) mmol/L ABG pH 7.50 H (7.35-7.45) ABG Total CO2 21.1 L (22-28) mmol.L ABG O2 Saturation 99.9 H (95-98) % ABG O2 Content 14.0 L (15-23) ML/dl ABG Base Excess -2.0 (-2.0-3.0) mmol/L ABG Hemoglobin 10.0 L (11.7-17.4) g/dL ABG Carboxyhemoglobin 1.3 (0.5-1.5) % POC ABG HHb (Measured) 0.1 (0-5) % ABG Methemoglobin 0.9 (0.0-3.0) % ABG O2 Capacity 14.0 L (16-24) mL/dl Hgb O2 Saturation 97.6 (95.0-98.0) % FiO2 50.0 % Sodium 149 H (132-148) mmol/L Potassium 3.3 L (3.6-5.0) mmol/L Chloride 119 H (98-107) mmol/L Carbon Dioxide 22 (21-33) mmol/L Anion Gap 12 (10-20) BUN 12 (7-21) mg/dL Creatinine 0.4 L (0.7-1.2) mg/dl Est GFR ( Amer) > 60 Est GFR (Non-Af Amer) > 60 POC Glucose (mg/dL) 103 (65-110) mg/dL Random Glucose 96 (70-110) mg/dL Serum Osmolality (272-300) mosm/kg Calcium 8.6 (8.4-10.5) mg/dL Phosphorus (2.5-4.5) mg/dL Magnesium (1.7-2.2) mg/dL Total Bilirubin 2.8 H (0.2-1.3) mg/dL Direct Bilirubin (0.0-0.4) mg/dL AST 60 H (14-36) U/L ALT 35 (7-56) U/L Alkaline Phosphatase 111 (38-126) U/L Total Protein 7.1 (5.8-8.3) g/dL Albumin 3.1 (3.0-4.8) g/dL Globulin 4.0 gm/dL Albumin/Globulin Ratio 0.8 L (1.1-1.8) Vitamin B12 (239-931) pg/mL Folate ng/mL TSH 3rd Generation (0.46-4.68) mIU/mL Hepatitis A IgM Ab (NEGATIVE) Hep Bs Antigen (NEGATIVE) Hep B Core IgM Ab (NEGATIVE) Hepatitis C Antibody (NEGATIVE) HIV-1 Ab Rapid Screen (NON REAC) Mycoplasma pneumon IgM (NEGATIVE) WB Flow Cytometry 03/23/18 03/23/18 03/23/18 Range/Units 06:10 06:00 06:00 WBC (4.5-11.0) 10^3/ul RBC (3.5-6.1) 10^6/uL Hgb (12.0-16.0) g/dL Hct (36.0-48.0) % MCV (80.0-105.0) fl MCH (25.0-35.0) pg MCHC (31.0-37.0) g/dl RDW (11.5-14.5) % Plt Count (120.0-450.0) 10^3/uL MPV (7.0-11.0) fl Gran % (50.0-68.0) % Lymph % (Auto) (22.0-35.0) % Heard % (Auto) (1.0-6.0) % Eos % (Auto) (1.5-5.0) % Baso % (Auto) (0.0-3.0) % Gran # (1.4-6.5) Lymph # (Auto) (1.2-3.4) Heard # (Auto) (0.1-0.6) Eos # (Auto) (0.0-0.7) Baso # (Auto) (0.0-2.0) K/mm3 PT (9.4-12.5) SECONDS INR APTT (25.1-36.5) Seconds pCO2 (35-45) mm/Hg pO2 (80-100) mm/Hg HCO3 (21-28) mmol/L ABG pH (7.35-7.45) ABG Total CO2 (22-28) mmol.L ABG O2 Saturation (95-98) % ABG O2 Content (15-23) ML/dl ABG Base Excess (-2.0-3.0) mmol/L ABG Hemoglobin (11.7-17.4) g/dL ABG Carboxyhemoglobin (0.5-1.5) % POC ABG HHb (Measured) (0-5) % ABG Methemoglobin (0.0-3.0) % ABG O2 Capacity (16-24) mL/dl Hgb O2 Saturation (95.0-98.0) % FiO2 % Sodium (132-148) mmol/L Potassium (3.6-5.0) mmol/L Chloride (98-107) mmol/L Carbon Dioxide (21-33) mmol/L Anion Gap (10-20) BUN (7-21) mg/dL Creatinine (0.7-1.2) mg/dl Est GFR ( Amer) Est GFR (Non-Af Amer) POC Glucose (mg/dL) (65-110) mg/dL Random Glucose (70-110) mg/dL Serum Osmolality (272-300) mosm/kg Calcium (8.4-10.5) mg/dL Phosphorus (2.5-4.5) mg/dL Magnesium (1.7-2.2) mg/dL Total Bilirubin (0.2-1.3) mg/dL Direct Bilirubin (0.0-0.4) mg/dL AST (14-36) U/L ALT (7-56) U/L Alkaline Phosphatase (38-126) U/L Total Protein (5.8-8.3) g/dL Albumin (3.0-4.8) g/dL Globulin gm/dL Albumin/Globulin Ratio (1.1-1.8) Vitamin B12 (239-931) pg/mL Folate ng/mL TSH 3rd Generation 0.48 (0.46-4.68) mIU/mL Hepatitis A IgM Ab Negative (NEGATIVE) Hep Bs Antigen Negative (NEGATIVE) Hep B Core IgM Ab Negative (NEGATIVE) Hepatitis C Antibody Negative (NEGATIVE) HIV-1 Ab Rapid Screen Non reactive (NON REAC) Mycoplasma pneumon IgM (NEGATIVE) WB Flow Cytometry 03/23/18 03/23/18 03/23/18 Range/Units 06:00 06:00 06:00 WBC 7.9 (4.5-11.0) 10^3/ul RBC 3.10 L (3.5-6.1) 10^6/uL Hgb 9.9 L (12.0-16.0) g/dL Hct 29.0 L (36.0-48.0) % MCV 93.5 (80.0-105.0) fl MCH 31.9 (25.0-35.0) pg MCHC 34.1 (31.0-37.0) g/dl RDW 16.8 H (11.5-14.5) % Plt Count 78 L (120.0-450.0) 10^3/uL MPV 9.7 (7.0-11.0) fl Gran % 86.1 H (50.0-68.0) % Lymph % (Auto) 6.1 L (22.0-35.0) % Heard % (Auto) 7.8 H (1.0-6.0) % Eos % (Auto) 0.0 L (1.5-5.0) % Baso % (Auto) 0.0 (0.0-3.0) % Gran # 6.78 H (1.4-6.5) Lymph # (Auto) 0.5 L (1.2-3.4) Heard # (Auto) 0.6 (0.1-0.6) Eos # (Auto) 0.0 (0.0-0.7) Baso # (Auto) 0.00 (0.0-2.0) K/mm3 PT 18.0 H (9.4-12.5) SECONDS INR 1.55 APTT 30.4 (25.1-36.5) Seconds pCO2 (35-45) mm/Hg pO2 (80-100) mm/Hg HCO3 (21-28) mmol/L ABG pH (7.35-7.45) ABG Total CO2 (22-28) mmol.L ABG O2 Saturation (95-98) % ABG O2 Content (15-23) ML/dl ABG Base Excess (-2.0-3.0) mmol/L ABG Hemoglobin (11.7-17.4) g/dL ABG Carboxyhemoglobin (0.5-1.5) % POC ABG HHb (Measured) (0-5) % ABG Methemoglobin (0.0-3.0) % ABG O2 Capacity (16-24) mL/dl Hgb O2 Saturation (95.0-98.0) % FiO2 % Sodium (132-148) mmol/L Potassium (3.6-5.0) mmol/L Chloride (98-107) mmol/L Carbon Dioxide (21-33) mmol/L Anion Gap (10-20) BUN (7-21) mg/dL Creatinine (0.7-1.2) mg/dl Est GFR ( Amer) Est GFR (Non-Af Amer) POC Glucose (mg/dL) (65-110) mg/dL Random Glucose (70-110) mg/dL Serum Osmolality (272-300) mosm/kg Calcium (8.4-10.5) mg/dL Phosphorus 2.5 (2.5-4.5) mg/dL Magnesium 1.9 (1.7-2.2) mg/dL Total Bilirubin (0.2-1.3) mg/dL Direct Bilirubin 1.3 H (0.0-0.4) mg/dL AST (14-36) U/L ALT (7-56) U/L Alkaline Phosphatase (38-126) U/L Total Protein (5.8-8.3) g/dL Albumin (3.0-4.8) g/dL Globulin gm/dL Albumin/Globulin Ratio (1.1-1.8) Vitamin B12 911 (239-931) pg/mL Folate 7.9 ng/mL TSH 3rd Generation (0.46-4.68) mIU/mL Hepatitis A IgM Ab (NEGATIVE) Hep Bs Antigen (NEGATIVE) Hep B Core IgM Ab (NEGATIVE) Hepatitis C Antibody (NEGATIVE) HIV-1 Ab Rapid Screen (NON REAC) Mycoplasma pneumon IgM (NEGATIVE) WB Flow Cytometry 03/23/18 03/23/18 03/22/18 Range/Units 06:00 02:04 22:23 WBC (4.5-11.0) 10^3/ul RBC (3.5-6.1) 10^6/uL Hgb (12.0-16.0) g/dL Hct (36.0-48.0) % MCV (80.0-105.0) fl MCH (25.0-35.0) pg MCHC (31.0-37.0) g/dl RDW (11.5-14.5) % Plt Count (120.0-450.0) 10^3/uL MPV (7.0-11.0) fl Gran % (50.0-68.0) % Lymph % (Auto) (22.0-35.0) % Heard % (Auto) (1.0-6.0) % Eos % (Auto) (1.5-5.0) % Baso % (Auto) (0.0-3.0) % Gran # (1.4-6.5) Lymph # (Auto) (1.2-3.4) Heard # (Auto) (0.1-0.6) Eos # (Auto) (0.0-0.7) Baso # (Auto) (0.0-2.0) K/mm3 PT (9.4-12.5) SECONDS INR APTT (25.1-36.5) Seconds pCO2 (35-45) mm/Hg pO2 (80-100) mm/Hg HCO3 (21-28) mmol/L ABG pH (7.35-7.45) ABG Total CO2 (22-28) mmol.L ABG O2 Saturation (95-98) % ABG O2 Content (15-23) ML/dl ABG Base Excess (-2.0-3.0) mmol/L ABG Hemoglobin (11.7-17.4) g/dL ABG Carboxyhemoglobin (0.5-1.5) % POC ABG HHb (Measured) (0-5) % ABG Methemoglobin (0.0-3.0) % ABG O2 Capacity (16-24) mL/dl Hgb O2 Saturation (95.0-98.0) % FiO2 % Sodium 151 H (132-148) mmol/L Potassium 3.3 L (3.6-5.0) mmol/L Chloride 119 H (98-107) mmol/L Carbon Dioxide 22 (21-33) mmol/L Anion Gap 13 (10-20) BUN 10 (7-21) mg/dL Creatinine 0.4 L (0.7-1.2) mg/dl Est GFR ( Amer) > 60 Est GFR (Non-Af Amer) > 60 POC Glucose (mg/dL) 95 (65-110) mg/dL Random Glucose 103 (70-110) mg/dL Serum Osmolality (272-300) mosm/kg Calcium 8.7 (8.4-10.5) mg/dL Phosphorus (2.5-4.5) mg/dL Magnesium (1.7-2.2) mg/dL Total Bilirubin (0.2-1.3) mg/dL Direct Bilirubin (0.0-0.4) mg/dL AST (14-36) U/L ALT (7-56) U/L Alkaline Phosphatase (38-126) U/L Total Protein (5.8-8.3) g/dL Albumin (3.0-4.8) g/dL Globulin gm/dL Albumin/Globulin Ratio (1.1-1.8) Vitamin B12 (239-931) pg/mL Folate ng/mL TSH 3rd Generation (0.46-4.68) mIU/mL Hepatitis A IgM Ab (NEGATIVE) Hep Bs Antigen (NEGATIVE) Hep B Core IgM Ab (NEGATIVE) Hepatitis C Antibody (NEGATIVE) HIV-1 Ab Rapid Screen (NON REAC) Mycoplasma pneumon IgM (NEGATIVE) WB Flow Cytometry Cancelled 03/22/18 03/22/18 03/22/18 Range/Units 21:28 21:28 20:35 WBC 9.4 D (4.5-11.0) 10^3/ul RBC 3.01 L (3.5-6.1) 10^6/uL Hgb 9.5 L (12.0-16.0) g/dL Hct 27.7 L (36.0-48.0) % MCV 92.0 (80.0-105.0) fl MCH 31.6 (25.0-35.0) pg MCHC 34.3 (31.0-37.0) g/dl RDW 16.4 H (11.5-14.5) % Plt Count 78 L (120.0-450.0) 10^3/uL MPV 9.3 (7.0-11.0) fl Gran % (50.0-68.0) % Lymph % (Auto) (22.0-35.0) % Heard % (Auto) (1.0-6.0) % Eos % (Auto) (1.5-5.0) % Baso % (Auto) (0.0-3.0) % Gran # (1.4-6.5) Lymph # (Auto) (1.2-3.4) Heard # (Auto) (0.1-0.6) Eos # (Auto) (0.0-0.7) Baso # (Auto) (0.0-2.0) K/mm3 PT (9.4-12.5) SECONDS INR APTT (25.1-36.5) Seconds pCO2 (35-45) mm/Hg pO2 (80-100) mm/Hg HCO3 (21-28) mmol/L ABG pH (7.35-7.45) ABG Total CO2 (22-28) mmol.L ABG O2 Saturation (95-98) % ABG O2 Content (15-23) ML/dl ABG Base Excess (-2.0-3.0) mmol/L ABG Hemoglobin (11.7-17.4) g/dL ABG Carboxyhemoglobin (0.5-1.5) % POC ABG HHb (Measured) (0-5) % ABG Methemoglobin (0.0-3.0) % ABG O2 Capacity (16-24) mL/dl Hgb O2 Saturation (95.0-98.0) % FiO2 % Sodium 150 H (132-148) mmol/L Potassium 3.6 (3.6-5.0) mmol/L Chloride 117 H (98-107) mmol/L Carbon Dioxide 23 (21-33) mmol/L Anion Gap 13 (10-20) BUN 10 (7-21) mg/dL Creatinine 0.5 L (0.7-1.2) mg/dl Est GFR ( Amer) > 60 Est GFR (Non-Af Amer) > 60 POC Glucose (mg/dL) (65-110) mg/dL Random Glucose 107 (70-110) mg/dL Serum Osmolality 302 H (272-300) mosm/kg Calcium 8.5 (8.4-10.5) mg/dL Phosphorus (2.5-4.5) mg/dL Magnesium (1.7-2.2) mg/dL Total Bilirubin (0.2-1.3) mg/dL Direct Bilirubin (0.0-0.4) mg/dL AST (14-36) U/L ALT (7-56) U/L Alkaline Phosphatase (38-126) U/L Total Protein (5.8-8.3) g/dL Albumin (3.0-4.8) g/dL Globulin gm/dL Albumin/Globulin Ratio (1.1-1.8) Vitamin B12 (239-931) pg/mL Folate ng/mL TSH 3rd Generation (0.46-4.68) mIU/mL Hepatitis A IgM Ab (NEGATIVE) Hep Bs Antigen (NEGATIVE) Hep B Core IgM Ab (NEGATIVE) Hepatitis C Antibody (NEGATIVE) HIV-1 Ab Rapid Screen (NON REAC) Mycoplasma pneumon IgM (NEGATIVE) WB Flow Cytometry 03/22/18 03/21/18 Range/Units 15:54 18:30 WBC (4.5-11.0) 10^3/ul RBC (3.5-6.1) 10^6/uL Hgb (12.0-16.0) g/dL Hct (36.0-48.0) % MCV (80.0-105.0) fl MCH (25.0-35.0) pg MCHC (31.0-37.0) g/dl RDW (11.5-14.5) % Plt Count (120.0-450.0) 10^3/uL MPV (7.0-11.0) fl Gran % (50.0-68.0) % Lymph % (Auto) (22.0-35.0) % Heard % (Auto) (1.0-6.0) % Eos % (Auto) (1.5-5.0) % Baso % (Auto) (0.0-3.0) % Gran # (1.4-6.5) Lymph # (Auto) (1.2-3.4) Heard # (Auto) (0.1-0.6) Eos # (Auto) (0.0-0.7) Baso # (Auto) (0.0-2.0) K/mm3 PT (9.4-12.5) SECONDS INR APTT (25.1-36.5) Seconds pCO2 (35-45) mm/Hg pO2 (80-100) mm/Hg HCO3 (21-28) mmol/L ABG pH (7.35-7.45) ABG Total CO2 (22-28) mmol.L ABG O2 Saturation (95-98) % ABG O2 Content (15-23) ML/dl ABG Base Excess (-2.0-3.0) mmol/L ABG Hemoglobin (11.7-17.4) g/dL ABG Carboxyhemoglobin (0.5-1.5) % POC ABG HHb (Measured) (0-5) % ABG Methemoglobin (0.0-3.0) % ABG O2 Capacity (16-24) mL/dl Hgb O2 Saturation (95.0-98.0) % FiO2 % Sodium (132-148) mmol/L Potassium (3.6-5.0) mmol/L Chloride (98-107) mmol/L Carbon Dioxide (21-33) mmol/L Anion Gap (10-20) BUN (7-21) mg/dL Creatinine (0.7-1.2) mg/dl Est GFR ( Amer) Est GFR (Non-Af Amer) POC Glucose (mg/dL) 126 H (65-110) mg/dL Random Glucose (70-110) mg/dL Serum Osmolality (272-300) mosm/kg Calcium (8.4-10.5) mg/dL Phosphorus (2.5-4.5) mg/dL Magnesium (1.7-2.2) mg/dL Total Bilirubin (0.2-1.3) mg/dL Direct Bilirubin (0.0-0.4) mg/dL AST (14-36) U/L ALT (7-56) U/L Alkaline Phosphatase (38-126) U/L Total Protein (5.8-8.3) g/dL Albumin (3.0-4.8) g/dL Globulin gm/dL Albumin/Globulin Ratio (1.1-1.8) Vitamin B12 (239-931) pg/mL Folate ng/mL TSH 3rd Generation (0.46-4.68) mIU/mL Hepatitis A IgM Ab (NEGATIVE) Hep Bs Antigen (NEGATIVE) Hep B Core IgM Ab (NEGATIVE) Hepatitis C Antibody (NEGATIVE) HIV-1 Ab Rapid Screen (NON REAC) Mycoplasma pneumon IgM Negative (NEGATIVE) WB Flow Cytometry Laboratory Results - last 24 hr 03/21/18 03/22/18 03/22/18 18:30 15:54 20:35 WBC RBC Hgb Hct MCV MCH MCHC RDW Plt Count MPV Gran % Lymph % (Auto) Heard % (Auto) Eos % (Auto) Baso % (Auto) Gran # Lymph # (Auto) Heard # (Auto) Eos # (Auto) Baso # (Auto) PT INR APTT pCO2 pO2 HCO3 ABG pH ABG Total CO2 ABG O2 Saturation ABG O2 Content ABG Base Excess ABG Hemoglobin ABG Carboxyhemoglobin POC ABG HHb (Measured) ABG Methemoglobin ABG O2 Capacity Hgb O2 Saturation FiO2 Sodium 150 H Potassium 3.6 Chloride 117 H Carbon Dioxide 23 Anion Gap 13 BUN 10 Creatinine 0.5 L Est GFR ( Amer) > 60 Est GFR (Non-Af Amer) > 60 POC Glucose (mg/dL) 126 H Random Glucose 107 Serum Osmolality Calcium 8.5 Phosphorus Magnesium Total Bilirubin Direct Bilirubin AST ALT Alkaline Phosphatase Total Protein Albumin Globulin Albumin/Globulin Ratio Vitamin B12 Folate TSH 3rd Generation Hepatitis A IgM Ab Hep Bs Antigen Hep B Core IgM Ab Hepatitis C Antibody HIV-1 Ab Rapid Screen Mycoplasma pneumon IgM Negative WB Flow Cytometry 03/22/18 03/22/18 03/22/18 21:28 21:28 22:23 WBC 9.4 D RBC 3.01 L Hgb 9.5 L Hct 27.7 L MCV 92.0 MCH 31.6 MCHC 34.3 RDW 16.4 H Plt Count 78 L MPV 9.3 Gran % Lymph % (Auto) Heard % (Auto) Eos % (Auto) Baso % (Auto) Gran # Lymph # (Auto) Heard # (Auto) Eos # (Auto) Baso # (Auto) PT INR APTT pCO2 pO2 HCO3 ABG pH ABG Total CO2 ABG O2 Saturation ABG O2 Content ABG Base Excess ABG Hemoglobin ABG Carboxyhemoglobin POC ABG HHb (Measured) ABG Methemoglobin ABG O2 Capacity Hgb O2 Saturation FiO2 Sodium Potassium Chloride Carbon Dioxide Anion Gap BUN Creatinine Est GFR ( Amer) Est GFR (Non-Af Amer) POC Glucose (mg/dL) 95 Random Glucose Serum Osmolality 302 H Calcium Phosphorus Magnesium Total Bilirubin Direct Bilirubin AST ALT Alkaline Phosphatase Total Protein Albumin Globulin Albumin/Globulin Ratio Vitamin B[address] [facility] 3rd Generation Hepatitis A IgM Ab Hep Bs Antigen Hep B Core IgM Ab Hepatitis C Antibody HIV-1 Ab Rapid Screen Mycoplasma pneumon IgM WB Flow Cytometry 03/23/18 03/23/18 03/23/18 02:04 06:00 06:00 WBC 7.9 RBC 3.10 L Hgb 9.9 L Hct 29.0 L MCV 93.5 MCH 31.9 MCHC 34.1 RDW 16.8 H Plt Count 78 L MPV 9.7 Gran % 86.1 H Lymph % (Auto) 6.1 L Heard % (Auto) 7.8 H Eos % (Auto) 0.0 L Baso % (Auto) 0.0 Gran # 6.78 H Lymph # (Auto) 0.5 L Heard # (Auto) 0.6 Eos # (Auto) 0.0 Baso # (Auto) 0.00 PT INR APTT pCO2 pO2 HCO3 ABG pH ABG Total CO2 ABG O2 Saturation ABG O2 Content ABG Base Excess ABG Hemoglobin ABG Carboxyhemoglobin POC ABG HHb (Measured) ABG Methemoglobin ABG O2 Capacity Hgb O2 Saturation FiO2 Sodium 151 H Potassium 3.3 L Chloride 119 H Carbon Dioxide 22 Anion Gap 13 BUN 10 Creatinine 0.4 L Est GFR ( Amer) > 60 Est GFR (Non-Af Amer) > 60 POC Glucose (mg/dL) Random Glucose 103 Serum Osmolality Calcium 8.7 Phosphorus Magnesium Total Bilirubin Direct Bilirubin AST ALT Alkaline Phosphatase Total Protein Albumin Globulin Albumin/Globulin Ratio Vitamin B12 Folate TSH 3rd Generation Hepatitis A IgM Ab Hep Bs Antigen Hep B Core IgM Ab Hepatitis C Antibody HIV-1 Ab Rapid Screen Mycoplasma pneumon IgM WB Flow Cytometry Cancelled 03/23/18 03/23/18 03/23/18 06:00 06:00 06:00 WBC RBC Hgb Hct MCV MCH MCHC RDW Plt Count MPV Gran % Lymph % (Auto) Heard % (Auto) Eos % (Auto) Baso % (Auto) Gran # Lymph # (Auto) Heard # (Auto) Eos # (Auto) Baso # (Auto) PT 18.0 H INR 1.55 APTT 30.4 pCO2 pO2 HCO3 ABG pH ABG Total CO2 ABG O2 Saturation ABG O2 Content ABG Base Excess ABG Hemoglobin ABG Carboxyhemoglobin POC ABG HHb (Measured) ABG Methemoglobin ABG O2 Capacity Hgb O2 Saturation FiO2 Sodium Potassium Chloride Carbon Dioxide Anion Gap BUN Creatinine Est GFR ( Amer) Est GFR (Non-Af Amer) POC Glucose (mg/dL) Random Glucose Serum Osmolality Calcium Phosphorus 2.5 Magnesium 1.9 Total Bilirubin Direct Bilirubin 1.3 H AST ALT Alkaline Phosphatase Total Protein Albumin Globulin Albumin/Globulin Ratio Vitamin B12 911 Folate 7.9 TSH 3rd Generation Hepatitis A IgM Ab Hep Bs Antigen Hep B Core IgM Ab Hepatitis C Antibody HIV-1 Ab Rapid Screen Non reactive Mycoplasma pneumon IgM WB Flow Cytometry 03/23/18 03/23/18 03/23/18 06:00 06:10 08:11 WBC RBC Hgb Hct MCV MCH MCHC RDW Plt Count MPV Gran % Lymph % (Auto) Heard % (Auto) Eos % (Auto) Baso % (Auto) Gran # Lymph # (Auto) Heard # (Auto) Eos # (Auto) Baso # (Auto) PT INR APTT pCO2 pO2 HCO3 ABG pH ABG Total CO2 ABG O2 Saturation ABG O2 Content ABG Base Excess ABG Hemoglobin ABG Carboxyhemoglobin POC ABG HHb (Measured) ABG Methemoglobin ABG O2 Capacity Hgb O2 Saturation FiO2 Sodium Potassium Chloride Carbon Dioxide Anion Gap BUN Creatinine Est GFR ( Amer) Est GFR (Non-Af Amer) POC Glucose (mg/dL) 103 Random Glucose Serum Osmolality Calcium Phosphorus Magnesium Total Bilirubin Direct Bilirubin AST ALT Alkaline Phosphatase Total Protein Albumin Globulin Albumin/Globulin Ratio Vitamin B12 Folate TSH 3rd Generation 0.48 Hepatitis A IgM Ab Negative Hep Bs Antigen Negative Hep B Core IgM Ab Negative Hepatitis C Antibody Negative HIV-1 Ab Rapid Screen Mycoplasma pneumon IgM WB Flow Cytometry 03/23/18 03/23/18 03/23/18 08:15 08:20 09:00 WBC RBC Hgb Hct MCV MCH MCHC RDW Plt Count MPV Gran % Lymph % (Auto) Heard % (Auto) Eos % (Auto) Baso % (Auto) Gran # Lymph # (Auto) Heard # (Auto) Eos # (Auto) Baso # (Auto) PT INR APTT pCO2 26 L pO2 135.0 H HCO3 20.3 L ABG pH 7.50 H ABG Total CO2 21.1 L ABG O2 Saturation 99.9 H ABG O2 Content 14.0 L ABG Base Excess -2.0 ABG Hemoglobin 10.0 L ABG Carboxyhemoglobin 1.3 POC ABG HHb (Measured) 0.1 ABG Methemoglobin 0.9 ABG O2 Capacity 14.0 L Hgb O2 Saturation 97.6 FiO2 50.0 Sodium 149 H Potassium 3.3 L Chloride 119 H Carbon Dioxide 22 Anion Gap 12 BUN 12 Creatinine 0.4 L Est GFR ( Amer) > 60 Est GFR (Non-Af Amer) > 60 POC Glucose (mg/dL) Random Glucose 96 Serum Osmolality 305 H Calcium 8.6 Phosphorus Magnesium Total Bilirubin 2.8 H Direct Bilirubin AST 60 H ALT 35 Alkaline Phosphatase 111 Total Protein 7.1 Albumin 3.1 Globulin 4.0 Albumin/Globulin Ratio 0.8 L Vitamin B12 Folate TSH 3rd Generation Hepatitis A IgM Ab Hep Bs Antigen Hep B Core IgM Ab Hepatitis C Antibody HIV-1 Ab Rapid Screen Mycoplasma pneumon IgM WB Flow Cytometry 03/23/18 03/23/18 11:31 13:00 WBC RBC Hgb Hct MCV MCH MCHC RDW Plt Count MPV Gran % Lymph % (Auto) Heard % (Auto) Eos % (Auto) Baso % (Auto) Gran # Lymph # (Auto) Heard # (Auto) Eos # (Auto) Baso # (Auto) PT INR APTT pCO2 30 L pO2 86.0 HCO3 20.9 L ABG pH 7.45 ABG Total CO2 21.8 L ABG O2 Saturation 99.0 H ABG O2 Content 13.4 L ABG Base Excess -2.4 L ABG Hemoglobin 9.8 L ABG Carboxyhemoglobin 1.8 H POC ABG HHb (Measured) 1.0 ABG Methemoglobin 0.5 ABG O2 Capacity 13.5 L Hgb O2 Saturation 96.6 FiO2 40.0 Sodium Potassium Chloride Carbon Dioxide Anion Gap BUN Creatinine Est GFR ( Amer) Est GFR (Non-Af Amer) POC Glucose (mg/dL) 87 Random Glucose Serum Osmolality Calcium Phosphorus Magnesium Total Bilirubin Direct Bilirubin AST ALT Alkaline Phosphatase Total Protein Albumin Globulin Albumin/Globulin Ratio Vitamin B12 Folate TSH 3rd Generation Hepatitis A IgM Ab Hep Bs Antigen Hep B Core IgM Ab Hepatitis C Antibody HIV-1 Ab Rapid Screen Mycoplasma pneumon IgM WB Flow Cytometry Addendum Addendum: 03/23/18 16:42 ICU Attending Addendum: Patient seen and examined. Case reviewed on round with housestaff. Agree with resident note above with the following additions/exceptions: 62F with EtOH abuse, cirrhosis, esophageal varices (s/p banding 2014), thrombocytopenia admitted with seizures, intracranial hemorrhage now intubated. CT head showed left occipital lobe hemorrhage, 2.8x2.[address] shows increase in L occip hemorrhage Her plat hve been dropping as well Etiology unclear. Is not consistent with hypertensive stroke. No history of trauma. Possible underlying mass/met? May still be drinking and how having etoh w/d seizure For now will cont to provide supportive care HOB > 30 degrees Keep BP 140-120 systolic Avoid hypertension - added propfol as BP rising Will use versed drip, Ativan prn and cont with keppra Neuro checks q 4 hours Repeat CTA today to r/o AVM MRI/MRA eventually Keep intubated, on low VT ventilation Plat improved with transfusion transfuse another 2 units today with goal > 100 for ICH If play < 100 - TRANSFUSE more plat f/u INR today, give FFP if INR elevated I considered steroids however no evidence of mass, shift or increase intracranial pressure. D/w Neurosurg who advised no benefit at this time for steroids On 3%NS, BMP q 4 hours sodium goal 145-150 serum osm goal < 320 Pepcid instead of PPI for gi ppx and hx of esoph varicies Rest of care as noted above. Samantha Byers MD [facility] Critical care time : 30 mins
[2018-03-23] MEDS ORDERED: Sodium Chloride 3% 500 ML IV SCH ×2 (08:32→08:56)
[2018-03-23 08:34] LABS: ARTERIAL BLOOD GAS HCO3 20.3 mmol/L (21-28); ARTERIAL BLOOD GAS O2 SAT 99.9 % (95-98); ARTERIAL BLOOD GAS PCO2 26 mm/Hg (35-45); ARTERIAL BLOOD GAS TCO2 21.1 mmol.L (22-28)
[2018-03-23 08:38] LABS: ALB/GLOB RATIO 0.8 (1.1-1.8); ALBUMIN 3.1 g/dL (3.0-4.8); ALT/SGPT 35 U/L (7-56); AST/SGOT 60 U/L (14-36); BLOOD UREA NITROGEN 12 mg/dL (7-21); CALCIUM 8.6 mg/dL (8.4-10.5); GFR NON-AFRICAN AMERICAN > 60
[2018-03-23] MEDS ORDERED: Iohexol 350 MG/100 ML VIAL ONE (09:13)
[2018-03-23] MEDS: levETIRAcetam 500mg IVPB 500 MG/100 ML BAG IVPB SCH ×2 (11:24→21:59)
[2018-03-23 11:29] LABS: HEPATITIS B SURFACE AG Negative (NEGATIVE)
[2018-03-23 11:35] LABS: HEPATITIS A IGM NEGATIVE (NEGATIVE); HEPATITIS B CORE AB NEGATIVE (NEGATIVE)
[2018-03-23 11:47] LABS: HEPATITIS C ANTIBODY NEGATIVE (NEGATIVE)
--- NOTE | 2018-03-23 11:56 | CT ---
Date of service: 03/23/2018 PROCEDURE: CT Angiography of the neck and head with contrast HISTORY: code stroke COMPARISON: Comparison is made to the previous CT of the head without contrast dated 03/22/[address] head study dated 03/21/2018 TECHNIQUE: Contiguous axial images of the neck were obtained from the level of the skull-base to the superior mediastinum in the arteriographic phase of enhancement. Coronal and sagittal reformats or also generated. IV contrast dose: 100 mL Omnipaque 350 Radiation Dose - DLP: 1251.74 mGy-cm This CT exam was performed using one or more of the following dose reduction techniques: Automated exposure control, adjustment of the mA and/or kV according to patient size, and/or use of iterative reconstruction technique. FINDINGS: RIGHT CAROTID ARTERIES: Common Carotid Artery: Normal. Carotid Bifurcation: No significant stenosis Internal Carotid Artery:No significant stenosis noted. External Carotid Artery (proximal branches): Normal. LEFT CAROTID ARTERIES: Common Carotid Artery: Normal. Carotid Bifurcation: No significant stenosis noted. Internal Carotid Artery:No significant stenosis noted. External Carotid Artery (proximal branches): Normal. VERTEBRAL ARTERIES: Right Vertebral Artery: The right vertebral artery is smaller than the left. Left Vertebral Artery: The left vertebral artery is dominantOther Findings CTA of the head: INTERNAL CEREBRAL ARTERIES: Unremarkable. The skull base, petrous, cavernous and supraclinoid segments are bilaterally widely patent. ANTERIOR CEREBRAL ARTERIES: Unremarkable. A1 and A2 segments are widely patent. Smaller distal branches unremarkable, as visualized. MIDDLE CEREBRAL ARTERIES: Unremarkable. M1 and M2 segments are widely patent. Perisylvian branches grossly symmetric. POSTERIOR CIRCULATION: Basilar Artery: Unremarkable. Distal Vertebral Arteries: Unremarkable. Posterior Cerebral Arteries: Unremarkable. Posterior Inferior Cerebellar Arteries: Unremarkable. ANEURYSM/ VASCULAR MALFORMATIONS: There are prominent vessels noted at the left occipital lobe around the parenchymal hemorrhage without definite CTA evidence of AVM or other vascular anomaly. Left occipital and intraventricular hemorrhage are again noted. IMPRESSION: Slightly prominent vessels in the left occipital lobe around the left occipital parenchymal hemorrhage without definite CTA evidence of AVM or other vascular anomaly. No evidence of aneurysm. No evidence of major vascular occlusion or critical stenosis.
[2018-03-23 12:04] LABS: FOLATE 7.9 ng/mL
--- NOTE | 2018-03-23 12:15 | RAD ---
Date of service: 03/23/2018 HISTORY: intubated COMPARISON: Comparison is made with 03/22/2018 FINDINGS: LUNGS: No significant interval change in the lungs noted since the previous exam. [id number] pulmonary vascular congestion is again noted. The ET tube is seen at appropriate position. PLEURA: Left pleural effusion is again noted. CARDIOVASCULAR: The cardiac silhouette is normal in size. OSSEOUS STRUCTURES: No significant abnormalities. VISUALIZED UPPER ABDOMEN: Normal. OTHER FINDINGS: Right jugular central line is seen in place. IMPRESSION: Overall no significant interval change since the previous study. Appropriate position of the support devices.
--- NOTE | 2018-03-23 12:37 | RAD ---
Date of service: 03/22/2018 HISTORY: Central line insertion COMPARISON: Comparison is made with 03/22/2018 FINDINGS: LUNGS: Interval improvement in the lungs since the previous exam. Small reticular opacities are noted more prominent at the mid left lung. The ET tube is seen at appropriate position. PLEURA: Blunting of the both costophrenic angle is again noted. CARDIOVASCULAR: The heart is normal in size. OSSEOUS STRUCTURES: No significant abnormalities. VISUALIZED UPPER ABDOMEN: Normal. OTHER FINDINGS: Right jugular central line is seen in place. IMPRESSION: Interval mild improvement in the lungs since the previous exam. Interval insertion of right jugular central line since the previous exam without evidence of pneumothorax.
--- NOTE | 2018-03-23 12:38 | CP.PCM.CON ---
<Mauramaria luisaraySushantMohamud - Last Filed: 03/23/18 12:35> History of Present Illness - History of Present Illness History of Present Illness: GI Fellow [email or web address], consult note. Denisha Collado is 62F with hx of decompensated etoh cirrhosis s/p variceal bands presenting with seizure, AMS requiring intubation. She was found to have ICH with possible herniation on brain scan. She is currently on propofol, midazolam. We were consulted for cirrhosis history. No reports of GI bleeding at this time. PMHx - see above. Unclear if she followed up with GI. PSHx - EGD with banding 2014. FMHx - unknown SocHx - EtOH use. + smoker. Unable to complete 12pt ROS due to intuabtion, AMS. Past Patient History - Infectious Disease Hx of Infectious Diseases: None - Tetanus Immunizations Tetanus Immunization: Unknown - Past Social History Smoking Status: Light Smoker < 10 Cigarettes Daily - CARDIAC Hx Cardiac Disorders: No - PULMONARY Hx Respiratory Disorders: No - NEUROLOGICAL Other/Comment: Spinal Stenosis , T7-8 Paracentral disc Protusion , C5-6 Disc Bulge , C3 Arthropy on right side - HEENT Hx HEENT Problems: No - RENAL Hx Chronic Kidney Disease: No - ENDOCRINE/METABOLIC Hx Endocrine Disorders: No - HEMATOLOGICAL/ONCOLOGICAL Hx Blood Transfusions: Yes - INTEGUMENTARY Hx Dermatological Problems: No - MUSCULOSKELETAL/RHEUMATOLOGICAL Hx Arthritis: Yes Hx Degenerative Joint Disease: Yes Hx Fractures: Yes (Tibial Plateu and Right Hip) Hx Osteoarthritis: Yes Hx Osteoporosis: Yes Hx Spinal Stenosis: Yes Other/Comment: Tibial plateu and Right Hip Fracture - GASTROINTESTINAL Other/Comment: Alcohol Cirrhosis , Esophageal Varices , Peptic Ulcer , Erosive esophagitis - GENITOURINARY/GYNECOLOGICAL Hx Genitourinary Disorders: No - PSYCHIATRIC Hx Substance Use: No - SURGICAL HISTORY Hx Musculoskeletal Surgery: Yes (Right Hip Replacement) - ANESTHESIA Hx Anesthesia Reactions: No Hx Malignant Hyperthermia: No Meds Allergies/Adverse Reactions: Allergies Allergy/AdvReac Type Severity Reaction Status Date / Time Penicillins Allergy RASH Verified 03/21/18 13:59 - Medications Medications: Current Medications Famotidine (Pepcid) 20 mg IVP DAILY [facility] Last Admin: 03/23/18 09:40 Dose: 20 mg Sodium Chloride (Sodium Chloride 0.9%) 1,000 mls @ 100 mls/hr IV .Q10H [facility] Last Admin: 03/23/18 07:59 Dose: Not Given Midazolam 100 mg/100ml in NS (Midazolam 100 Mg/100ml In Ns) 100 mg in 100 mls @ 1 mls/hr IV .Q24H PRN; Protocol; 1 MG/HR PRN Reason: Seizure activity Last Titration: 03/23/18 11:57 Dose: 4 mg/hr, 4 mls/hr Levetiracetam (Keppra 500mg Ivpb) 500 mg in 100 mls @ 460 mls/hr IVPB Q12 [facility] Last Admin: 03/23/18 11:24 Dose: 460 mls/hr Propofol (Diprivan) 1,000 mg in 100 mls @ 2 mls/hr IV .Q24H PRN; Protocol; 5 MCG/KG/MIN PRN Reason: TITRATE PER MD ORDER Last Admin: 03/23/18 08:00 Dose: 25 mcg/kg/min, 10.002 mls/hr Sodium Chloride (Hypertonic Saline 3%) 500 mls @ 30 mls/hr IV .[id number] [facility] Last Admin: 03/23/18 11:26 Dose: 30 mls/hr Physical Exam - Constitutional Appears: Chronically Ill - Head Exam Head Exam: NORMAL INSPECTION - Eye Exam Additional comments: Poor corneal reflex. + Dolls eyes. - ENT Exam ENT Exam: Mucous Membranes Moist - Respiratory Exam Additional comments: Intubated. - Cardiovascular Exam Cardiovascular Exam: REGULAR RHYTHM - GI/Abdominal Exam GI & Abdominal Exam: Normal Bowel Sounds, Soft. absent: Distended, Tenderness - Extremities Exam Extremities exam: Positive for: normal inspection - Neurological Exam Neurological exam: Altered - Skin Skin Exam: Dry Additional comments: Dusky Results - Vital Signs Recent Vital Signs: Last Vital Signs Temp 97.9 F 03/23/18 12:02 Pulse 86 03/23/18 12:02 Resp 23 03/23/18 12:02 BP 137/67 03/23/18 12:02 Pulse Ox 100 03/23/18 05:20 - Labs Result Diagrams: 03/23/18 06:00 03/23/18 08:15 Labs: Laboratory Results - last 24 hr 03/21/18 03/22/18 03/22/18 18:30 06:00 15:54 WBC RBC Hgb Hct MCV MCH MCHC RDW Plt Count MPV Gran % Lymph % (Auto) [place] % (Auto) Eos % (Auto) Baso % (Auto) Gran # Lymph # (Auto) [place] # (Auto) Eos # (Auto) Baso # (Auto) Haptoglobin < 20.0 L PT INR APTT pCO2 pO2 HCO3 ABG pH ABG Total CO2 ABG O2 Saturation ABG O2 Content ABG Base Excess ABG Hemoglobin ABG Carboxyhemoglobin POC ABG HHb (Measured) ABG Methemoglobin ABG O2 Capacity Hgb O2 Saturation FiO2 Sodium Potassium Chloride Carbon Dioxide Anion Gap BUN Creatinine Est GFR ( Amer) Est GFR (Non-Af Amer) POC Glucose (mg/dL) 126 H Random Glucose Serum Osmolality Calcium Phosphorus Magnesium Total Bilirubin Direct Bilirubin AST ALT Alkaline Phosphatase Total Protein Albumin Globulin Albumin/Globulin Ratio Vitamin B12 Folate TSH 3rd Generation Hepatitis A IgM Ab Hep Bs Antigen Hep B Core IgM Ab Hepatitis C Antibody HIV-1 Ab Rapid Screen Mycoplasma pneumon IgM Negative WB Flow Cytometry 03/22/18 03/22/18 03/22/18 20:35 21:28 21:28 WBC 9.4 D RBC 3.01 L Hgb 9.5 L Hct 27.7 L MCV 92.0 MCH 31.6 MCHC 34.3 RDW 16.4 H Plt Count 78 L MPV 9.3 Gran % Lymph % (Auto) [place] % (Auto) Eos % (Auto) Baso % (Auto) Gran # Lymph # (Auto) [place] # (Auto) Eos # (Auto) Baso # (Auto) Haptoglobin PT INR APTT pCO2 pO2 HCO3 ABG pH ABG Total CO2 ABG O2 Saturation ABG O2 Content ABG Base Excess ABG Hemoglobin ABG Carboxyhemoglobin POC ABG HHb (Measured) ABG Methemoglobin ABG O2 Capacity Hgb O2 Saturation FiO2 Sodium 150 H Potassium 3.6 Chloride 117 H Carbon Dioxide 23 Anion Gap 13 BUN 10 Creatinine 0.5 L Est GFR ( Amer) > 60 Est GFR (Non-Af Amer) > 60 POC Glucose (mg/dL) Random Glucose 107 Serum Osmolality 302 H Calcium 8.5 Phosphorus Magnesium Total Bilirubin Direct Bilirubin AST ALT Alkaline Phosphatase Total Protein Albumin Globulin Albumin/Globulin Ratio Vitamin B12 Folate TSH 3rd Generation Hepatitis A IgM Ab Hep Bs Antigen Hep B Core IgM Ab Hepatitis C Antibody HIV-1 Ab Rapid Screen Mycoplasma pneumon IgM WB Flow Cytometry 03/22/18 03/23/18 03/23/18 22:23 02:04 06:00 WBC RBC Hgb Hct MCV MCH MCHC RDW Plt Count MPV Gran % Lymph % (Auto) [place] % (Auto) Eos % (Auto) Baso % (Auto) Gran # Lymph # (Auto) [place] # (Auto) Eos # (Auto) Baso # (Auto) Haptoglobin PT INR APTT pCO2 pO2 HCO3 ABG pH ABG Total CO2 ABG O2 Saturation ABG O2 Content ABG Base Excess ABG Hemoglobin ABG Carboxyhemoglobin POC ABG HHb (Measured) ABG Methemoglobin ABG O2 Capacity Hgb O2 Saturation FiO2 Sodium 151 H Potassium 3.3 L Chloride 119 H Carbon Dioxide 22 Anion Gap 13 BUN 10 Creatinine 0.4 L Est GFR ( Amer) > 60 Est GFR (Non-Af Amer) > 60 POC Glucose (mg/dL) 95 Random Glucose 103 Serum Osmolality Calcium 8.7 Phosphorus Magnesium Total Bilirubin Direct Bilirubin AST ALT Alkaline Phosphatase Total Protein Albumin Globulin Albumin/Globulin Ratio Vitamin B12 Folate TSH 3rd Generation Hepatitis A IgM Ab Hep Bs Antigen Hep B Core IgM Ab Hepatitis C Antibody HIV-1 Ab Rapid Screen Mycoplasma pneumon IgM WB Flow Cytometry Cancelled 03/23/18 03/23/18 03/23/18 06:00 06:00 06:00 WBC 7.9 RBC 3.10 L Hgb 9.9 L Hct 29.0 L MCV 93.5 MCH 31.9 MCHC 34.1 RDW 16.8 H Plt Count 78 L MPV 9.7 Gran % 86.1 H Lymph % (Auto) 6.1 L [place] % (Auto) 7.8 H Eos % (Auto) 0.0 L Baso % (Auto) 0.0 Gran # 6.78 H Lymph # (Auto) 0.5 L [place] # (Auto) 0.6 Eos # (Auto) 0.0 Baso # (Auto) 0.00 Haptoglobin PT 18.0 H INR 1.55 APTT 30.4 pCO2 pO2 HCO3 ABG pH ABG Total CO2 ABG O2 Saturation ABG O2 Content ABG Base Excess ABG Hemoglobin ABG Carboxyhemoglobin POC ABG HHb (Measured) ABG Methemoglobin ABG O2 Capacity Hgb O2 Saturation FiO2 Sodium Potassium Chloride Carbon Dioxide Anion Gap BUN Creatinine Est GFR ( Amer) Est GFR (Non-Af Amer) POC Glucose (mg/dL) Random Glucose Serum Osmolality Calcium Phosphorus 2.5 Magnesium 1.9 Total Bilirubin Direct Bilirubin 1.3 H AST ALT Alkaline Phosphatase Total Protein Albumin Globulin Albumin/Globulin Ratio Vitamin B12 911 Folate 7.9 TSH 3rd Generation Hepatitis A IgM Ab Hep Bs Antigen Hep B Core IgM Ab Hepatitis C Antibody HIV-1 Ab Rapid Screen Mycoplasma pneumon IgM WB Flow Cytometry 03/23/18 03/23/18 03/23/18 06:00 06:00 06:10 WBC RBC Hgb Hct MCV MCH MCHC RDW Plt Count MPV Gran % Lymph % (Auto) [place] % (Auto) Eos % (Auto) Baso % (Auto) Gran # Lymph # (Auto) [place] # (Auto) Eos # (Auto) Baso # (Auto) Haptoglobin PT INR APTT pCO2 pO2 HCO3 ABG pH ABG Total CO2 ABG O2 Saturation ABG O2 Content ABG Base Excess ABG Hemoglobin ABG Carboxyhemoglobin POC ABG HHb (Measured) ABG Methemoglobin ABG O2 Capacity Hgb O2 Saturation FiO2 Sodium Potassium Chloride Carbon Dioxide Anion Gap BUN Creatinine Est GFR ( Amer) Est GFR (Non-Af Amer) POC Glucose (mg/dL) Random Glucose Serum Osmolality Calcium Phosphorus Magnesium Total Bilirubin Direct Bilirubin AST ALT Alkaline Phosphatase Total Protein Albumin Globulin Albumin/Globulin Ratio Vitamin B12 Folate TSH 3rd Generation 0.48 Hepatitis A IgM Ab Negative Hep Bs Antigen Negative Hep B Core IgM Ab Negative Hepatitis C Antibody Negative HIV-1 Ab Rapid Screen Non reactive Mycoplasma pneumon IgM WB Flow Cytometry 03/23/18 03/23/18 03/23/18 08:11 08:15 08:20 WBC RBC Hgb Hct MCV MCH MCHC RDW Plt Count MPV Gran % Lymph % (Auto) [place] % (Auto) Eos % (Auto) Baso % (Auto) Gran # Lymph # (Auto) [place] # (Auto) Eos # (Auto) Baso # (Auto) Haptoglobin PT INR APTT pCO2 26 L pO2 135.0 H HCO3 20.3 L ABG pH 7.50 H ABG Total CO2 21.1 L ABG O2 Saturation 99.9 H ABG O2 Content 14.0 L ABG Base Excess -2.0 ABG Hemoglobin 10.0 L ABG Carboxyhemoglobin 1.3 POC ABG HHb (Measured) 0.1 ABG Methemoglobin 0.9 ABG O2 Capacity 14.0 L Hgb O2 Saturation 97.6 FiO2 50.0 Sodium 149 H Potassium 3.3 L Chloride 119 H Carbon Dioxide 22 Anion Gap 12 BUN 12 Creatinine 0.4 L Est GFR ( Amer) > 60 Est GFR (Non-Af Amer) > 60 POC Glucose (mg/dL) 103 Random Glucose 96 Serum Osmolality Calcium 8.6 Phosphorus Magnesium Total Bilirubin 2.8 H Direct Bilirubin AST 60 H ALT 35 Alkaline Phosphatase 111 Total Protein 7.1 Albumin 3.1 Globulin 4.0 Albumin/Globulin Ratio 0.8 L Vitamin B12 Folate TSH 3rd Generation Hepatitis A IgM Ab Hep Bs Antigen Hep B Core IgM Ab Hepatitis C Antibody HIV-1 Ab Rapid Screen Mycoplasma pneumon IgM WB Flow Cytometry 03/23/18 09:00 WBC RBC Hgb Hct MCV MCH MCHC RDW Plt Count MPV Gran % Lymph % (Auto) [place] % (Auto) Eos % (Auto) Baso % (Auto) Gran # Lymph # (Auto) [place] # (Auto) Eos # (Auto) Baso # (Auto) Haptoglobin PT INR APTT pCO2 pO2 HCO3 ABG pH ABG Total CO2 ABG O2 Saturation ABG O2 Content ABG Base Excess ABG Hemoglobin ABG Carboxyhemoglobin POC ABG HHb (Measured) ABG Methemoglobin ABG O2 Capacity Hgb O2 Saturation FiO2 Sodium Potassium Chloride Carbon Dioxide Anion Gap BUN Creatinine Est GFR ( Amer) Est GFR (Non-Af Amer) POC Glucose (mg/dL) Random Glucose Serum Osmolality 305 H Calcium Phosphorus Magnesium Total Bilirubin Direct Bilirubin AST ALT Alkaline Phosphatase Total Protein Albumin Globulin Albumin/Globulin Ratio Vitamin B12 Folate TSH 3rd Generation Hepatitis A IgM Ab Hep Bs Antigen Hep B Core IgM Ab Hepatitis C Antibody HIV-1 Ab Rapid Screen Mycoplasma pneumon IgM WB Flow Cytometry Assessment & Plan - Assessment and Plan (Free Text) Assessment: 62F with hx variceal bands presenting with AMS, seizures and found to have ICH and some herniation, now intubated. 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 #E. Varices s/p bands 2014 #Colonic AVMs #Pancytopenia #Seizure disorder #ICH PLAN: -Replace PLT per ICU -Check Ammonia levels -Avoid NG tube for now, risk of variceal bleed. Consider dobhoff tomorrow. -If BP can tolerate, recommend carvedilol for varices when able to take PO. -PPI IV daily. -Monitor LFTs, but appear stable for now. - Date & Time Date: 03/23/18 Time: 12:40 <Jean-Claude eVrnon V - Last Filed: 03/24/18 23:57> Meds - Medications Medications: Current Medications Famotidine (Pepcid) 20 mg IVP DAILY [facility] Last Admin: 03/24/18 10:19 Dose: 20 mg Levetiracetam (Keppra 500mg Ivpb) 500 mg in 100 mls @ 460 mls/hr IVPB Q12 [facility] Last Admin: 03/24/18 21:43 Dose: 460 mls/hr Nicardipine HCl (Cardene Iv Premix) 20 mg in 200 mls @ 50 mls/hr IV .Q4H PRN; Protocol; 5 MG/HR PRN Reason: TITRATE PER MD ORDER Last Admin: 03/24/18 15:58 Dose: 1 mg/hr, 10 mls/hr Dextrose/Sodium Chloride (Dextrose 5%/0.9% Ns 1000 Ml) 1,000 mls @ 100 mls/hr IV .Q10H [facility] Last Admin: 03/24/18 15:31 Dose: 100 mls/hr Insulin Human Regular (Humulin R Low) 0 units SC Q6H [facility] PRN Reason: Protocol Last Admin: 03/24/18 22:20 Dose: Not Given Vitamin A (Vitamin A & D Oint Ud Foilpak) 1 ea TOP Q12 PRN PRN Reason: apply to dry lips Last Admin: 03/24/18 10:19 Dose: 1 ea Results - Vital Signs Recent Vital Signs: Last Vital Signs Temp 99.0 F 03/24/18 10:41 Pulse 80 03/24/18 21:33 Resp 22 03/24/18 21:33 BP 120/59 L 03/24/18 21:30 Pulse Ox 96 03/24/18 21:33 - Labs Result Diagrams: 03/24/18 17:59 03/24/18 19:53 Labs: Laboratory Results - last 24 hr 03/24/18 03/24/18 03/24/18 05:00 05:00 05:00 WBC 9.4 D RBC 3.16 L Hgb 10.1 L Hct 29.9 L MCV 94.6 MCH 32.0 MCHC 33.8 RDW 17.2 H Plt Count 102 L Manual Plt Count 124 MPV 9.3 Gran % 83.5 H Lymph % (Auto) 4.5 L [place] % (Auto) 11.6 H Eos % (Auto) 0.3 L Baso % (Auto) 0.1 Gran # 7.86 H Lymph # (Auto) 0.4 L [place] # (Auto) 1.1 H Eos # (Auto) 0.0 Baso # (Auto) 0.01 Neutrophils % (Manual) 88 H Band Neutrophils % 2 Lymphocytes % (Manual) 8 L Monocytes % (Manual) 2 Platelet Evaluation Low PT INR APTT pCO2 pO2 HCO3 ABG pH ABG Total CO2 ABG O2 Saturation ABG O2 Content ABG Base Excess ABG Hemoglobin ABG Carboxyhemoglobin POC ABG HHb (Measured) ABG Methemoglobin ABG O2 Capacity Hgb O2 Saturation FiO2 Sodium 151 H Potassium 3.4 L Chloride 119 H Carbon Dioxide 22 Anion Gap 14 BUN 11 Creatinine 0.5 L Est GFR ( Amer) > 60 Est GFR (Non-Af Amer) > 60 POC Glucose (mg/dL) Random Glucose 94 Serum Osmolality Calcium 9.0 Phosphorus 2.5 Magnesium 1.8 Total Bilirubin 3.8 H AST 63 H ALT 32 Alkaline Phosphatase 122 Total Protein 7.5 Albumin 3.5 Globulin 4.0 Albumin/Globulin Ratio 0.9 L 03/24/18 03/24/18 03/24/18 05:00 05:00 06:00 WBC RBC Hgb Hct MCV MCH MCHC RDW Plt Count Manual Plt Count MPV Gran % Lymph % (Auto) [place] % (Auto) Eos % (Auto) Baso % (Auto) Gran # Lymph # (Auto) [place] # (Auto) Eos # (Auto) Baso # (Auto) Neutrophils % (Manual) Band Neutrophils % Lymphocytes % (Manual) Monocytes % (Manual) Platelet Evaluation PT 17.6 H INR 1.52 APTT 30.9 pCO2 27 L pO2 64.0 L HCO3 21.5 ABG pH 7.51 H ABG Total CO2 22.3 ABG O2 Saturation 95.3 ABG O2 Content 17.5 ABG Base Excess -0.3 ABG Hemoglobin 13.4 ABG Carboxyhemoglobin 1.8 H POC ABG HHb (Measured) 4.6 ABG Methemoglobin 0.8 ABG O2 Capacity 18.4 Hgb O2 Saturation 92.7 L FiO2 40.0 Sodium Potassium Chloride Carbon Dioxide Anion Gap BUN Creatinine Est GFR ( Amer) Est GFR (Non-Af Amer) POC Glucose (mg/dL) Random Glucose Serum Osmolality 309 H Calcium Phosphorus Magnesium Total Bilirubin AST ALT Alkaline Phosphatase Total Protein Albumin Globulin Albumin/Globulin Ratio 03/24/18 03/24/18 03/24/18 07:43 11:19 11:20 WBC RBC Hgb Hct MCV MCH MCHC RDW Plt Count Manual Plt Count MPV Gran % Lymph % (Auto) [place] % (Auto) Eos % (Auto) Baso % (Auto) Gran # Lymph # (Auto) [place] # (Auto) Eos # (Auto) Baso # (Auto) Neutrophils % (Manual) Band Neutrophils % Lymphocytes % (Manual) Monocytes % (Manual) Platelet Evaluation PT INR APTT pCO2 24 L pO2 55.0 L HCO3 19.2 L ABG pH 7.51 H ABG Total CO2 19.9 L ABG O2 Saturation 93.3 L ABG O2 Content 13.4 L ABG Base Excess -2.6 L ABG Hemoglobin 10.6 L ABG Carboxyhemoglobin 2.3 H POC ABG HHb (Measured) 6.5 H ABG Methemoglobin 1.1 ABG O2 Capacity 14.4 L Hgb O2 Saturation 90.0 L FiO2 40.0 Sodium Potassium Chloride Carbon Dioxide Anion Gap BUN Creatinine Est GFR ( Amer) Est GFR (Non-Af Amer) POC Glucose (mg/dL) 82 104 Random Glucose Serum Osmolality Calcium Phosphorus Magnesium Total Bilirubin AST ALT Alkaline Phosphatase Total Protein Albumin Globulin Albumin/Globulin Ratio 03/24/18 03/24/18 03/24/18 11:45 11:45 17:46 WBC RBC Hgb Hct MCV MCH MCHC RDW Plt Count Manual Plt Count MPV Gran % Lymph % (Auto) [place] % (Auto) Eos % (Auto) Baso % (Auto) Gran # Lymph # (Auto) [place] # (Auto) Eos # (Auto) Baso # (Auto) Neutrophils % (Manual) Band Neutrophils % Lymphocytes % (Manual) Monocytes % (Manual) Platelet Evaluation PT INR APTT pCO2 pO2 HCO3 ABG pH ABG Total CO2 ABG O2 Saturation ABG O2 Content ABG Base Excess ABG Hemoglobin ABG Carboxyhemoglobin POC ABG HHb (Measured) ABG Methemoglobin ABG O2 Capacity Hgb O2 Saturation FiO2 Sodium 150 H Potassium 3.2 L Chloride 119 H Carbon Dioxide 21 Anion Gap 13 BUN 11 Creatinine 0.5 L Est GFR ( Amer) > 60 Est GFR (Non-Af Amer) > 60 POC Glucose (mg/dL) 129 H Random Glucose 107 Serum Osmolality 301 H Calcium 8.8 Phosphorus Magnesium Total Bilirubin AST ALT Alkaline Phosphatase Total Protein Albumin Globulin Albumin/Globulin Ratio 03/24/18 03/24/18 03/24/18 17:59 19:53 19:53 WBC 11.9 H D RBC 3.37 L Hgb 10.6 L Hct 31.6 L MCV 93.8 MCH 31.5 MCHC 33.5 RDW 17.1 H Plt Count 103 L Manual Plt Count MPV 9.3 Gran % Lymph % (Auto) [place] % (Auto) Eos % (Auto) Baso % (Auto) Gran # Lymph # (Auto) [place] # (Auto) Eos # (Auto) Baso # (Auto) Neutrophils % (Manual) Band Neutrophils % Lymphocytes % (Manual) Monocytes % (Manual) Platelet Evaluation PT INR APTT pCO2 pO2 HCO3 ABG pH ABG Total CO2 ABG O2 Saturation ABG O2 Content ABG Base Excess ABG Hemoglobin ABG Carboxyhemoglobin POC ABG HHb (Measured) ABG Methemoglobin ABG O2 Capacity Hgb O2 Saturation FiO2 Sodium 147 Potassium 3.2 L Chloride 118 H Carbon Dioxide 22 Anion Gap 10 BUN 12 Creatinine 0.5 L Est GFR ( Amer) > 60 Est GFR (Non-Af Amer) > 60 POC Glucose (mg/dL) Random Glucose 130 H Serum Osmolality 304 H Calcium 8.8 Phosphorus Magnesium Total Bilirubin AST ALT Alkaline Phosphatase Total Protein Albumin Globulin Albumin/Globulin Ratio Attending/Attestation - Attestation I have personally seen and examined this patient.: Yes I have fully participated in the care of the patient.: Yes I have reviewed all pertinent clinical information: Yes Notes (Text): This is a delayed addendum to GI consult report dictated by the GI Fellow.The patient was seen and examined earlier. Medical records, lab studies, imagings were reviewed. Last 24 hours events reviewed. Agreed with the above treatment plan as outlined in GI Fellow 's notes with the addition of the following Cirrhosis of the liver Status post CVA Thrombocytopenia status post platelet transfusn On vent We will check ammonia level Consider Dobbhoff tube feeding 03/24/18 23:56
[2018-03-23 13:07] LABS: ARTERIAL BLOOD GAS HCO3 20.9 mmol/L (21-28); ARTERIAL BLOOD GAS HEMOGLOBIN 9.8 g/dL (11.7-17.4); ARTERIAL BLOOD GAS O2 CAPACITY 13.5 mL/dl (16-24); ARTERIAL BLOOD GAS O2 CONTENT 13.4 ML/dl (15-23); ARTERIAL BLOOD GAS PCO2 30 mm/Hg (35-45); ARTERIAL BLOOD GAS PH 7.45 (7.35-7.45); ARTERIAL BLOOD GAS TCO2 21.8 mmol.L (22-28)
[2018-03-23 16:49] LABS: BLOOD UREA NITROGEN 12 mg/dL (7-21); CALCIUM 8.8 mg/dL (8.4-10.5); GFR NON-AFRICAN AMERICAN > 60
--- NOTE | 2018-03-23 20:08 | CP.PCM.CON ---
History of Present Illness - History of Present Illness History of Present Illness: Patient being seen for Dr. Decker/Lashell: 62 year old female, with PMH EtOH abuse, Cirrhosis, esophageal varices ( requiring banding in 2015), thrombocytopenia, spinal stenosis, arthritis, degenerative joint disease, brought in by EMS, for unresponsiveness s/p seizure ; found to have intracranial hemorrhage; nephrology being consulted for electrolyte abnormalities; History taken from patient records as she remains intubated/sedated; Patient was at home when her described her as suddenly becoming unresponsive with complete body convulsions that lasted for approximately 1 minute; In ED, head CT was done that showed left occipital lobe hemorrhage (2.8x2.8cm) with associated edema/necrosis; patient was given loading dose keppra, decadron and placed on versed drip for persistent seizure type activity; Repeat head CT yesterday showed worsening edema, increased size of bleed and intraventricular extension; patient was subsequently started on hypertonic saline, initially given bolus of 1L followed by 30 cc/hr which she remains on currently; patient also transfused platelets and FFP for thrombocytopenia and coagulopathy respectively; Review of Systems - Review of Systems Systems not reviewed;Unavailable: Intubated Past Patient History - Infectious Disease Hx of Infectious Diseases: None - Tetanus Immunizations Tetanus Immunization: Unknown - Past Medical History & Family History Pertinent Family History: unknown - Past Social History Smoking Status: Light Smoker < 10 Cigarettes Daily - CARDIAC Hx Cardiac Disorders: No - PULMONARY Hx Respiratory Disorders: No - NEUROLOGICAL Other/Comment: Spinal Stenosis , T7-8 Paracentral disc Protusion , C5-6 Disc Bulge , C3 Arthropy on right side - HEENT Hx HEENT Problems: No - RENAL Hx Chronic Kidney Disease: No - ENDOCRINE/METABOLIC Hx Endocrine Disorders: No - HEMATOLOGICAL/ONCOLOGICAL Hx Blood Transfusions: Yes - INTEGUMENTARY Hx Dermatological Problems: No - MUSCULOSKELETAL/RHEUMATOLOGICAL Hx Arthritis: Yes Hx Degenerative Joint Disease: Yes Hx Fractures: Yes (Tibial Plateu and Right Hip) Hx Osteoarthritis: Yes Hx Osteoporosis: Yes Hx Spinal Stenosis: Yes Other/Comment: Tibial plateu and Right Hip Fracture - GASTROINTESTINAL Other/Comment: Alcohol Cirrhosis , Esophageal Varices , Peptic Ulcer , Erosive esophagitis - GENITOURINARY/GYNECOLOGICAL Hx Genitourinary Disorders: No - PSYCHIATRIC Hx Substance Use: No - SURGICAL HISTORY Hx Musculoskeletal Surgery: Yes (Right Hip Replacement) - ANESTHESIA Hx Anesthesia Reactions: No Hx Malignant Hyperthermia: No Meds Allergies/Adverse Reactions: Allergies Allergy/AdvReac Type Severity Reaction Status Date / Time Penicillins Allergy RASH Verified 03/21/18 13:59 - Medications Medications: Current Medications Famotidine (Pepcid) 20 mg IVP DAILY [facility] Last Admin: 03/23/18 09:40 Dose: 20 mg Sodium Chloride (Sodium Chloride 0.9%) 1,000 mls @ 100 mls/hr IV .Q10H [facility] Last Admin: 03/23/18 07:59 Dose: Not Given Midazolam 100 mg/100ml in NS (Midazolam 100 Mg/100ml In Ns) 100 mg in 100 mls @ 1 mls/hr IV .Q24H PRN; Protocol; 1 MG/HR PRN Reason: Seizure activity Last Titration: 03/23/18 16:30 Dose: 2 mg/hr, 2 mls/hr Levetiracetam (Keppra 500mg Ivpb) 500 mg in 100 mls @ 460 mls/hr IVPB Q12 [facility] Last Admin: 03/23/18 11:24 Dose: 460 mls/hr Propofol (Diprivan) 1,000 mg in 100 mls @ 2 mls/hr IV .Q24H PRN; Protocol; 5 MCG/KG/MIN PRN Reason: TITRATE PER MD ORDER Last Admin: 03/23/18 17:17 Dose: 25 mcg/kg/min, 10.002 mls/hr Sodium Chloride (Hypertonic Saline 3%) 500 mls @ 30 mls/hr IV .[id number] [facility] Last Admin: 03/23/18 11:26 Dose: 30 mls/hr Vitamin A (Vitamin A & D Oint Ud Foilpak) 1 ea TOP Q12 PRN PRN Reason: apply to dry lips Physical Exam - Constitutional Appears: No Acute Distress - Eye Exam Eye Exam: Normal appearance. absent: Scleral icterus - ENT Exam ENT Exam: Mucous Membranes Moist - Respiratory Exam Respiratory Exam: Clear to Auscultation Bilateral. absent: Respiratory Distress - Cardiovascular Exam Cardiovascular Exam: RRR, +S1, +S2 - GI/Abdominal Exam GI & Abdominal Exam: Soft. absent: Distended - Exam Exam: absent: Bladder Distension Additional comments: beck in place - Extremities Exam Additional comments: no leg edema; - Neurological Exam Additional comments: sedated; not responsive to tactile stimuli - Skin Skin Exam: Normal Color, Warm Results - Vital Signs Recent Vital Signs: Last Vital Signs Temp 97.5 F L 03/23/18 12:48 Pulse 118 H 03/23/18 16:20 Resp 18 03/23/18 12:48 BP 126/69 03/23/18 12:48 Pulse Ox 100 03/23/18 05:20 - Labs Result Diagrams: 03/23/18 20:09 03/23/18 20:09 Labs: Laboratory Results - last 24 hr 03/21/18 03/22/18 03/22/18 18:30 20:35 21:28 WBC 9.4 D RBC 3.01 L Hgb 9.5 L Hct 27.7 L MCV 92.0 MCH 31.6 MCHC 34.3 RDW 16.4 H Plt Count 78 L MPV 9.3 Gran % Lymph % (Auto) [place] % (Auto) Eos % (Auto) Baso % (Auto) Gran # Lymph # (Auto) [place] # (Auto) Eos # (Auto) Baso # (Auto) PT INR APTT pCO2 pO2 HCO3 ABG pH ABG Total CO2 ABG O2 Saturation ABG O2 Content ABG Base Excess ABG Hemoglobin ABG Carboxyhemoglobin POC ABG HHb (Measured) ABG Methemoglobin ABG O2 Capacity Hgb O2 Saturation FiO2 Sodium 150 H Potassium 3.6 Chloride 117 H Carbon Dioxide 23 Anion Gap 13 BUN 10 Creatinine 0.5 L Est GFR ( Amer) > 60 Est GFR (Non-Af Amer) > 60 POC Glucose (mg/dL) Random Glucose 107 Serum Osmolality Calcium 8.5 Phosphorus Magnesium Total Bilirubin Direct Bilirubin AST ALT Alkaline Phosphatase Ammonia Total Protein Albumin Globulin Albumin/Globulin Ratio Vitamin B12 Folate TSH 3rd Generation Hepatitis A IgM Ab Hep Bs Antigen Hep B Core IgM Ab Hepatitis C Antibody HIV-1 Ab Rapid Screen Mycoplasma pneumon IgM Negative WB Flow Cytometry 03/22/18 03/22/18 03/23/18 21:28 22:23 02:04 WBC RBC Hgb Hct MCV MCH MCHC RDW Plt Count MPV Gran % Lymph % (Auto) [place] % (Auto) Eos % (Auto) Baso % (Auto) Gran # Lymph # (Auto) [place] # (Auto) Eos # (Auto) Baso # (Auto) PT INR APTT pCO2 pO2 HCO3 ABG pH ABG Total CO2 ABG O2 Saturation ABG O2 Content ABG Base Excess ABG Hemoglobin ABG Carboxyhemoglobin POC ABG HHb (Measured) ABG Methemoglobin ABG O2 Capacity Hgb O2 Saturation FiO2 Sodium 151 H Potassium 3.3 L Chloride 119 H Carbon Dioxide 22 Anion Gap 13 BUN 10 Creatinine 0.4 L Est GFR ( Amer) > 60 Est GFR (Non-Af Amer) > 60 POC Glucose (mg/dL) 95 Random Glucose 103 Serum Osmolality 302 H Calcium 8.7 Phosphorus Magnesium Total Bilirubin Direct Bilirubin AST ALT Alkaline Phosphatase Ammonia Total Protein Albumin Globulin Albumin/Globulin Ratio Vitamin B12 Folate TSH 3rd Generation Hepatitis A IgM Ab Hep Bs Antigen Hep B Core IgM Ab Hepatitis C Antibody HIV-1 Ab Rapid Screen Mycoplasma pneumon IgM WB Flow Cytometry 03/23/18 03/23/18 03/23/18 06:00 06:00 06:00 WBC 7.9 RBC 3.10 L Hgb 9.9 L Hct 29.0 L MCV 93.5 MCH 31.9 MCHC 34.1 RDW 16.8 H Plt Count 78 L MPV 9.7 Gran % 86.1 H Lymph % (Auto) 6.1 L [place] % (Auto) 7.8 H Eos % (Auto) 0.0 L Baso % (Auto) 0.0 Gran # 6.78 H Lymph # (Auto) 0.5 L [place] # (Auto) 0.6 Eos # (Auto) 0.0 Baso # (Auto) 0.00 PT 18.0 H INR 1.55 APTT 30.4 pCO2 pO2 HCO3 ABG pH ABG Total CO2 ABG O2 Saturation ABG O2 Content ABG Base Excess ABG Hemoglobin ABG Carboxyhemoglobin POC ABG HHb (Measured) ABG Methemoglobin ABG O2 Capacity Hgb O2 Saturation FiO2 Sodium Potassium Chloride Carbon Dioxide Anion Gap BUN Creatinine Est GFR ( Amer) Est GFR (Non-Af Amer) POC Glucose (mg/dL) Random Glucose Serum Osmolality Calcium Phosphorus Magnesium Total Bilirubin Direct Bilirubin AST ALT Alkaline Phosphatase Ammonia Total Protein Albumin Globulin Albumin/Globulin Ratio Vitamin B12 Folate TSH 3rd Generation Hepatitis A IgM Ab Hep Bs Antigen Hep B Core IgM Ab Hepatitis C Antibody HIV-1 Ab Rapid Screen Mycoplasma pneumon IgM WB Flow Cytometry Cancelled 03/23/18 03/23/18 03/23/18 06:00 06:00 06:00 WBC RBC Hgb Hct MCV MCH MCHC RDW Plt Count MPV Gran % Lymph % (Auto) [place] % (Auto) Eos % (Auto) Baso % (Auto) Gran # Lymph # (Auto) [place] # (Auto) Eos # (Auto) Baso # (Auto) PT INR APTT pCO2 pO2 HCO3 ABG pH ABG Total CO2 ABG O2 Saturation ABG O2 Content ABG Base Excess ABG Hemoglobin ABG Carboxyhemoglobin POC ABG HHb (Measured) ABG Methemoglobin ABG O2 Capacity Hgb O2 Saturation FiO2 Sodium Potassium Chloride Carbon Dioxide Anion Gap BUN Creatinine Est GFR ( Amer) Est GFR (Non-Af Amer) POC Glucose (mg/dL) Random Glucose Serum Osmolality Calcium Phosphorus 2.5 Magnesium 1.9 Total Bilirubin Direct Bilirubin 1.3 H AST ALT Alkaline Phosphatase Ammonia Total Protein Albumin Globulin Albumin/Globulin Ratio Vitamin B12 911 Folate 7.9 TSH 3rd Generation 0.48 Hepatitis A IgM Ab Hep Bs Antigen Hep B Core IgM Ab Hepatitis C Antibody HIV-1 Ab Rapid Screen Non reactive Mycoplasma pneumon IgM WB Flow Cytometry 03/23/18 03/23/18 03/23/18 06:10 08:11 08:15 WBC RBC Hgb Hct MCV MCH MCHC RDW Plt Count MPV Gran % Lymph % (Auto) [place] % (Auto) Eos % (Auto) Baso % (Auto) Gran # Lymph # (Auto) [place] # (Auto) Eos # (Auto) Baso # (Auto) PT INR APTT pCO2 pO2 HCO3 ABG pH ABG Total CO2 ABG O2 Saturation ABG O2 Content ABG Base Excess ABG Hemoglobin ABG Carboxyhemoglobin POC ABG HHb (Measured) ABG Methemoglobin ABG O2 Capacity Hgb O2 Saturation FiO2 Sodium 149 H Potassium 3.3 L Chloride 119 H Carbon Dioxide 22 Anion Gap 12 BUN 12 Creatinine 0.4 L Est GFR ( Amer) > 60 Est GFR (Non-Af Amer) > 60 POC Glucose (mg/dL) 103 Random Glucose 96 Serum Osmolality Calcium 8.6 Phosphorus Magnesium Total Bilirubin 2.8 H Direct Bilirubin AST 60 H ALT 35 Alkaline Phosphatase 111 Ammonia Total Protein 7.1 Albumin 3.1 Globulin 4.0 Albumin/Globulin Ratio 0.8 L Vitamin B12 Folate TSH 3rd Generation Hepatitis A IgM Ab Negative Hep Bs Antigen Negative Hep B Core IgM Ab Negative Hepatitis C Antibody Negative HIV-1 Ab Rapid Screen Mycoplasma pneumon IgM WB Flow Cytometry 09/10/0503/23/18 03/23/18 08:20 09:00 11:31 WBC RBC Hgb Hct MCV MCH MCHC RDW Plt Count MPV Gran % Lymph % (Auto) [place] % (Auto) Eos % (Auto) Baso % (Auto) Gran # Lymph # (Auto) [place] # (Auto) Eos # (Auto) Baso # (Auto) PT INR APTT pCO2 26 L pO2 135.0 H HCO3 20.3 L ABG pH 7.50 H ABG Total CO2 21.1 L ABG O2 Saturation 99.9 H ABG O2 Content 14.0 L ABG Base Excess -2.0 ABG Hemoglobin 10.0 L ABG Carboxyhemoglobin 1.3 POC ABG HHb (Measured) 0.1 ABG Methemoglobin 0.9 ABG O2 Capacity 14.0 L Hgb O2 Saturation 97.6 FiO2 50.0 Sodium Potassium Chloride Carbon Dioxide Anion Gap BUN Creatinine Est GFR ( Amer) Est GFR (Non-Af Amer) POC Glucose (mg/dL) 87 Random Glucose Serum Osmolality 305 H Calcium Phosphorus Magnesium Total Bilirubin Direct Bilirubin AST ALT Alkaline Phosphatase Ammonia Total Protein Albumin Globulin Albumin/Globulin Ratio Vitamin B12 Folate TSH 3rd Generation Hepatitis A IgM Ab Hep Bs Antigen Hep B Core IgM Ab Hepatitis C Antibody HIV-1 Ab Rapid Screen Mycoplasma pneumon IgM WB Flow Cytometry 03/23/18 03/23/18 03/23/18 13:00 16:00 16:29 WBC RBC Hgb Hct MCV MCH MCHC RDW Plt Count MPV Gran % Lymph % (Auto) [place] % (Auto) Eos % (Auto) Baso % (Auto) Gran # Lymph # (Auto) [place] # (Auto) Eos # (Auto) Baso # (Auto) PT INR APTT pCO2 30 L pO2 86.0 HCO3 20.9 L ABG pH 7.45 ABG Total CO2 21.8 L ABG O2 Saturation 99.0 H ABG O2 Content 13.4 L ABG Base Excess -2.4 L ABG Hemoglobin 9.8 L ABG Carboxyhemoglobin 1.8 H POC ABG HHb (Measured) 1.0 ABG Methemoglobin 0.5 ABG O2 Capacity 13.5 L Hgb O2 Saturation 96.6 FiO2 40.0 Sodium 151 H Potassium 3.4 L Chloride 121 H Carbon Dioxide 21 Anion Gap 13 BUN 12 Creatinine 0.5 L Est GFR ( Amer) > 60 Est GFR (Non-Af Amer) > 60 POC Glucose (mg/dL) Random Glucose 89 Serum Osmolality 307 H Calcium 8.8 Phosphorus Magnesium Total Bilirubin Direct Bilirubin AST ALT Alkaline Phosphatase Ammonia Total Protein Albumin Globulin Albumin/Globulin Ratio Vitamin B12 Folate TSH 3rd Generation Hepatitis A IgM Ab Hep Bs Antigen Hep B Core IgM Ab Hepatitis C Antibody HIV-1 Ab Rapid Screen Mycoplasma pneumon IgM WB Flow Cytometry 03/23/18 03/23/18 16:29 16:31 WBC RBC Hgb Hct MCV MCH MCHC RDW Plt Count MPV Gran % Lymph % (Auto) [place] % (Auto) Eos % (Auto) Baso % (Auto) Gran # Lymph # (Auto) [place] # (Auto) Eos # (Auto) Baso # (Auto) PT INR APTT pCO2 pO2 HCO3 ABG pH ABG Total CO2 ABG O2 Saturation ABG O2 Content ABG Base Excess ABG Hemoglobin ABG Carboxyhemoglobin POC ABG HHb (Measured) ABG Methemoglobin ABG O2 Capacity Hgb O2 Saturation FiO2 Sodium Potassium Chloride Carbon Dioxide Anion Gap BUN Creatinine Est GFR ( Amer) Est GFR (Non-Af Amer) POC Glucose (mg/dL) 92 Random Glucose Serum Osmolality Calcium Phosphorus Magnesium Total Bilirubin Direct Bilirubin AST ALT Alkaline Phosphatase Ammonia 45 H Total Protein Albumin Globulin Albumin/Globulin Ratio Vitamin B12 Folate TSH 3rd Generation Hepatitis A IgM Ab Hep Bs Antigen Hep B Core IgM Ab Hepatitis C Antibody HIV-1 Ab Rapid Screen Mycoplasma pneumon IgM WB Flow Cytometry - Imaging and Cardiology Chest x-ray Status: Image reviewed by me Additional comment: lungs clear Assessment & Plan (1) Electrolyte imbalance Assessment and Plan: Iatrogenically induced hypernatremia with hypertonic saline given to achieve serum hyperosmolality in order to decrease cerebral edema; with ensuing hypokalemia likely due to renal wasting from osmotic diuresis as well as solute drag from cells induced by hyperosmolar state; mild non-anion gap metabolic acidosis due to saline administration; -continue to replenish serum potassium aggressively (can expect ongoing K losses with hypertonic saline still running); -if metabolic acidosis worsens significantly, can give PO sodium bicarb via NG tube (not needed currently); -continue hypertonic saline per neurology recs; Status: Acute (2) Hypernatremia Status: Acute (3) Hypokalemia Status: Acute (4) Intracranial hemorrhage Status: Acute
[2018-03-23 20:12] LABS: BASO # 0.01 K/mm3 (0.0-2.0); BASO % 0.1 % (0.0-3.0); EOS % 0.3 % (1.5-5.0); GRAN # 5.93 (1.4-6.5); GRAN % 81.5 % (50.0-68.0); HEMOGLOBIN 9.9 g/dL (12.0-16.0); LYMPH # 0.6 (1.2-3.4); LYMPH % 7.8 % (22.0-35.0); MEAN CELL VOLUME 94.6 fl (80.0-105.0); MEAN CORPUSCULAR HEMOGLOBIN 31.5 pg (25.0-35.0); MEAN CORPUSCULAR HGB CONC 33.3 g/dl (31.0-37.0); MONO # 0.8 (0.1-0.6); MONO % 10.3 % (1.0-6.0); RBC 3.14 10^6/uL (3.5-6.1); RED CELL DISTRIBUTION WIDTH 17.3 % (11.5-14.5); WHITE BLOOD COUNT 7.3 10^3/ul (4.5-11.0)
[2018-03-23 20:21] LABS: INR 1.43; PARTIAL THROMBOPLASTIN TIME 28.9 Seconds (25.1-36.5); PROTHROMBIN TIME 16.4 SECONDS (9.4-12.5)
[2018-03-23 20:23] LABS: BLOOD UREA NITROGEN 12 mg/dL (7-21); GFR NON-AFRICAN AMERICAN > 60
[2018-03-24] MEDS: Midazolam 100 mg/100ml in NS 100 MG/100 ML SOL IV PRN (02:17)
[2018-03-24] MEDS: Propofol 10 mg/ml 1,000 MG/100 ML VIAL IV PRN ×2 (02:19→11:28)
[2018-03-24] MEDS: Sodium Chloride 3% 500 ML IV SCH (02:20)
--- NOTE | 2018-03-24 02:54 | PN ---
Copied To: Edward Patterson MD Attending MD: Edward Patterson MD DATE: 03/23/2018 This is [facility]' hospital visit in Intensive Care Unit. For Dr. Medellin. SUBJECTIVE: The patient is a 62-year-old female, seen lying, comatose, intubated in the Intensive Care Unit, known to have had seizure episode at home with testing resulting in a cerebral bleed, left occipital intracerebral hemorrhage. She then developed respiratory failure, was intubated and is now sedated with minimal response to verbal stimuli. She had significant thrombocytopenia, which has modestly improved after transfusion of platelets, which we will continue to do to maintain her platelet count greater than 100,000 as possible. Also 3% saline was begun for her neurologic compromise as per Dr. Nicholas, Neurology, with resultant elevation of sodium and chloride, for which Renal consult will be requested. Her total bilirubin has modestly improved from 3.7 to 2.8 with her platelet count today of 78,000. OBJECTIVE: PHYSICAL EXAMINATION: VITAL SIGNS: Stable. HEENT: The patient is unresponsive to verbal stimuli and is intubated. NECK: No nodes. HEART: Regular rate. Occasional ectopic beats. LUNGS: Clear. ABDOMEN: Soft. EXTREMITIES: No edema. SKIN: Warm and dry. NEUROLOGIC: Comatose, not arousable to verbal stimuli. LABORATORY DATA: The patient's labs were done. White blood cell count of 7.9, hemoglobin 9.9, hematocrit 29, platelet count of 78,000 up from 46,000, with a 48,000 manual count yesterday. Her sodium is 149, chloride is 119 with a potassium of 3.3, T-bili of 2.8, INR of 1.55, the patient being HIV negative as per lab results. ASSESSMENT: Left occipital lobe intracerebral hemorrhage with worsening as per second CAT scan; history of cirrhosis; EtOH abuse; gastrointestinal bleed; esophageal varices; fractured maxilla; seizure disorder; status post bleed; respiratory failure, intubation. PLAN: Plan for this patient after conversation with Dr. Medellin is to continue present medical regimen. Also, after conversation with Dr. Byers, senior backup administrator, we will continue aggressive care with steroids not given at this time as per Neurosurgery, and Dr. Nicholas of Neurology, with Renal consult for hypernatremia. We will monitor her labs with platelets to be given as indicated, and also fresh frozen plasma as indicated. The prognosis for this patient is guarded. This is a complex patient with a comprehensive medically necessary and appropriate visit carried out in excess of 40 minutes with discussion held with senior backup administrator, Dr. Byers, nursing staff, and Dr. Nicholas of Neurology. Edward Patterson MD
[2018-03-24 06:03] LABS: BASO # 0.01 K/mm3 (0.0-2.0); BASO % 0.1 % (0.0-3.0); EOS % 0.3 % (1.5-5.0); GRAN # 7.86 (1.4-6.5); GRAN % 83.5 % (50.0-68.0); HEMOGLOBIN 10.1 g/dL (12.0-16.0); LYMPH # 0.4 (1.2-3.4); LYMPH % 4.5 % (22.0-35.0); MEAN CELL VOLUME 94.6 fl (80.0-105.0); MEAN CORPUSCULAR HGB CONC 33.8 g/dl (31.0-37.0); MEAN PLATELET VOLUME 9.3 fl (7.0-11.0); MONO # 1.1 (0.1-0.6); MONO % 11.6 % (1.0-6.0); PLATELET COUNT 102 10^3/uL (120.0-450.0); RBC 3.16 10^6/uL (3.5-6.1); RED CELL DISTRIBUTION WIDTH 17.2 % (11.5-14.5); WHITE BLOOD COUNT 9.4 10^3/ul (4.5-11.0)
[2018-03-24 06:19] LABS: ALB/GLOB RATIO 0.9 (1.1-1.8); ALBUMIN 3.5 g/dL (3.0-4.8); ALT/SGPT 32 U/L (7-56); AST/SGOT 63 U/L (14-36); BLOOD UREA NITROGEN 11 mg/dL (7-21); GFR NON-AFRICAN AMERICAN > 60
[2018-03-24 06:28] LABS: ARTERIAL BLOOD GAS HCO3 21.5 mmol/L (21-28); ARTERIAL BLOOD GAS HEMOGLOBIN 13.4 g/dL (11.7-17.4); ARTERIAL BLOOD GAS O2 CAPACITY 18.4 mL/dl (16-24); ARTERIAL BLOOD GAS O2 CONTENT 17.5 ML/dl (15-23); ARTERIAL BLOOD GAS O2 SAT 95.3 % (95-98); ARTERIAL BLOOD GAS PCO2 27 mm/Hg (35-45); ARTERIAL BLOOD GAS PH 7.51 (7.35-7.45); ARTERIAL BLOOD GAS TCO2 22.3 mmol.L (22-28)
[2018-03-24 06:49] LABS: INR 1.52; PARTIAL THROMBOPLASTIN TIME 30.9 Seconds (25.1-36.5); PROTHROMBIN TIME 17.6 SECONDS (9.4-12.5)
--- NOTE | 2018-03-24 07:57 | CP.CCUPN ---
<Mary Mena - Last Filed: 03/24/18 11:42> CCU Subjective - Physician Review Subjective (Free Text): ICU Progress note for Dr. Luz Elena Mena, PGY 1 Patient seen and examined at bedside this Am. Patient is tolerating ventilation well, blood pressure was mildly elevated overnight, hydralazine given this morning for better control. Cardene drip started. Assessment limited d/t intubation and sedation. No seizure activity observed overnight. 03/24/18 07:54 03/24/18 08:44 CCU Objective - Vital Signs / Intake & Output Vital Signs (Last 4 hours): Vital Signs Temp Pulse Resp BP Pulse Ox 03/24/18 06:00 80 03/24/18 05:32 99.9 F H 80 21 163/90 H 03/24/18 04:30 99.5 F 80 24 159/78 H 03/24/18 04:00 99.9 F H 82 24 158/79 H 96 Intake and Output (Last 8hrs): Intake & Output 03/23/18 03/24/18 03/24/18 22:59 06:59 14:59 Intake Total 1762 1427 Output Total 1100 975 Balance 662 452 Weight 142 lb 3 oz Intake: IV 735 824 3% hypertonic 360 360 Propofol 120 120 Versed 46 24 potassium 100 200 Blood Product 1027 603 Apheresis Plts Acda Lr 301 2nd Con Unit [id number] Output: Urine 1100 975 Urethral ([place]) 1100 975 Stool 0 Emesis 0 - Physical Exam Head: Positive for: Atraumatic, Normocephalic Pupils: Positive for: PERRL, Sluggish Respiratory/Chest: Positive for: Clear to Auscultation, Good Air Exchange. Negative for: Respiratory Distress Cardiovascular: Positive for: Regular Rate and Rhythm, Normal S1, S2 Abdomen: Positive for: Normal Bowel Sounds. Negative for: Tenderness, Distention, Guarding Upper Extremity: Positive for: Normal Inspection, NORMAL PULSES. Negative for: Edema Lower Extremity: Positive for: Normal Inspection, NORMAL PULSES. Negative for: Edema Neurological: Positive for: Other (intubated and sedated, no twitching noted) Skin: Positive for: Warm, Dry, Normal Color - Medications Active Medications: Active Medications Generic Name Dose Route Start Last Admin Trade Name Freq PRN Reason Stop Dose Admin Famotidine 20 mg 03/23/18 10:00 03/23/18 09:40 Pepcid IVP 20 mg DAILY STEVEN Administration Hydralazine HCl 10 mg 03/24/18 07:03 Apresoline IVP ONCE PRN Systolic Blood Pressure Midazolam 100 mg/100ml in NS 100 mg in 100 mls @ 1 mls/hr 03/21/18 15:20 11/05 02:17 Midazolam 100 Mg/100ml In Ns IV 2 mg/hr .Q24H PRN 2 mls/hr Seizure activity Administration Protocol 1 MG/HR Levetiracetam 500 mg in 100 mls @ 460 mls/hr 03/22/18 10:00 03/23/18 21:59 Keppra 500mg Ivpb IVPB 460 mls/hr Q12 STEVEN Administration Propofol 1,000 mg in 100 mls @ 2 mls/hr 03/22/18 14:35 03/24/18 02:19 Diprivan IV 25 mcg/kg/min .Q24H PRN 10.002 mls/hr TITRATE PER MD ORDER Administration Protocol 5 MCG/KG/MIN Sodium Chloride 500 mls @ 30 mls/hr 03/23/18 09:54 03/24/18 02:20 Hypertonic Saline 3% IV 30 mls/hr .[id number] STEVEN Administration Potassium Chloride 20 meq in 100 mls @ 50 mls/hr 03/24/18 06:40 03/24/18 06: 53 Potassium Chloride 20 Meq/100 Ml IVPB 03/24/18 08:39 50 mls/hr ONCE ONE Administration Vitamin A 1 ea 03/23/18 17:50 Vitamin A & D Oint Ud Foilpak TOP Q12 PRN apply to dry lips - Patient Studies Lab Studies: Microbiology Studies 03/21/18 18:30 Blood Culture - Preliminary Blood-Venous NO GROWTH AFTER 48 HOURS 03/21/18 18:00 Blood Culture - Preliminary Blood-Venous NO GROWTH AFTER 48 HOURS 03/21/18 18:20 Urine Culture - Final Urine No Growth (<1,000 CFU/ML) 03/21/18 18:15 MRSA Culture (Admit) - Final Nose MRSA NOT DETECTED Lab Studies 03/24/18 03/24/18 03/24/18 Range/Units 05:00 05:00 05:00 WBC 9.4 D (4.5-11.0) 10^3/ul RBC 3.16 L (3.5-6.1) 10^6/uL Hgb 10.1 L (12.0-16.0) g/dL Hct 29.9 L (36.0-48.0) % MCV 94.6 (80.0-105.0) fl MCH 32.0 (25.0-35.0) pg MCHC 33.8 (31.0-37.0) g/dl RDW 17.2 H (11.5-14.5) % Plt Count 102 L (120.0-450.0) 10^3/uL MPV 9.3 (7.0-11.0) fl Gran % 83.5 H (50.0-68.0) % Lymph % (Auto) 4.5 L (22.0-35.0) % [place] % (Auto) 11.6 H (1.0-6.0) % Eos % (Auto) 0.3 L (1.5-5.0) % Baso % (Auto) 0.1 (0.0-3.0) % Gran # 7.86 H (1.4-6.5) Lymph # (Auto) 0.4 L (1.2-3.4) [place] # (Auto) 1.1 H (0.1-0.6) Eos # (Auto) 0.0 (0.0-0.7) Baso # (Auto) 0.01 (0.0-2.0) K/mm3 PT 17.6 H (9.4-12.5) SECONDS INR 1.52 APTT 30.9 (25.1-36.5) Seconds pCO2 (35-45) mm/Hg pO2 (80-100) mm/Hg HCO3 (21-28) mmol/L ABG pH (7.35-7.45) ABG Total CO2 (22-28) mmol.L ABG O2 Saturation (95-98) % ABG O2 Content (15-23) ML/dl ABG Base Excess (-2.0-3.0) mmol/L ABG Hemoglobin (11.7-17.4) g/dL ABG Carboxyhemoglobin (0.5-1.5) % POC ABG HHb (Measured) (0-5) % ABG Methemoglobin (0.0-3.0) % ABG O2 Capacity (16-24) mL/dl Hgb O2 Saturation (95.0-98.0) % FiO2 % Sodium 151 H (132-148) mmol/L Potassium 3.4 L (3.6-5.0) mmol/L Chloride 119 H (98-107) mmol/L Carbon Dioxide 22 (21-33) mmol/L Anion Gap 14 (10-20) BUN 11 (7-21) mg/dL Creatinine 0.5 L (0.7-1.2) mg/dl Est GFR ( Amer) > 60 Est GFR (Non-Af Amer) > 60 POC Glucose (mg/dL) (65-110) mg/dL Random Glucose 94 (70-110) mg/dL Serum Osmolality (272-300) mosm/kg Calcium 9.0 (8.4-10.5) mg/dL Phosphorus 2.5 (2.5-4.5) mg/dL Magnesium 1.8 (1.7-2.2) mg/dL Total Bilirubin 3.8 H (0.2-1.3) mg/dL AST 63 H (14-36) U/L ALT 32 (7-56) U/L Alkaline Phosphatase 122 (38-126) U/L Ammonia (9-33) umol/L Total Protein 7.5 (5.8-8.3) g/dL Albumin 3.5 (3.0-4.8) g/dL Globulin 4.0 gm/dL Albumin/Globulin Ratio 0.9 L (1.1-1.8) Vitamin B12 (239-931) pg/mL Folate ng/mL TSH 3rd Generation (0.46-4.68) mIU/mL Hepatitis A IgM Ab (NEGATIVE) Hep Bs Antigen (NEGATIVE) Hep B Core IgM Ab (NEGATIVE) Hepatitis C Antibody (NEGATIVE) HIV-1 Ab Rapid Screen (NON REAC) 03/23/18 03/23/18 03/23/18 Range/Units 21:49 20:09 20:09 WBC (4.5-11.0) 10^3/ul RBC (3.5-6.1) 10^6/uL Hgb (12.0-16.0) g/dL Hct (36.0-48.0) % MCV (80.0-105.0) fl MCH (25.0-35.0) pg MCHC (31.0-37.0) g/dl RDW (11.5-14.5) % Plt Count (120.0-450.0) 10^3/uL MPV (7.0-11.0) fl Gran % (50.0-68.0) % Lymph % (Auto) (22.0-35.0) % [place] % (Auto) (1.0-6.0) % Eos % (Auto) (1.5-5.0) % Baso % (Auto) (0.0-3.0) % Gran # (1.4-6.5) Lymph # (Auto) (1.2-3.4) [place] # (Auto) (0.1-0.6) Eos # (Auto) (0.0-0.7) Baso # (Auto) (0.0-2.0) K/mm3 PT (9.4-12.5) SECONDS INR APTT (25.1-36.5) Seconds pCO2 (35-45) mm/Hg pO2 (80-100) mm/Hg HCO3 (21-28) mmol/L ABG pH (7.35-7.45) ABG Total CO2 (22-28) mmol.L ABG O2 Saturation (95-98) % ABG O2 Content (15-23) ML/dl ABG Base Excess (-2.0-3.0) mmol/L ABG Hemoglobin (11.7-17.4) g/dL ABG Carboxyhemoglobin (0.5-1.5) % POC ABG HHb (Measured) (0-5) % ABG Methemoglobin (0.0-3.0) % ABG O2 Capacity (16-24) mL/dl Hgb O2 Saturation (95.0-98.0) % FiO2 % Sodium 150 H (132-148) mmol/L Potassium 3.2 L (3.6-5.0) mmol/L Chloride 120 H (98-107) mmol/L Carbon Dioxide 23 (21-33) mmol/L Anion Gap 12 (10-20) BUN 12 (7-21) mg/dL Creatinine 0.5 L (0.7-1.2) mg/dl Est GFR ( Amer) > 60 Est GFR (Non-Af Amer) > 60 POC Glucose (mg/dL) 85 (65-110) mg/dL Random Glucose 88 (70-110) mg/dL Serum Osmolality 305 H (272-300) mosm/kg Calcium 9.0 (8.4-10.5) mg/dL Phosphorus (2.5-4.5) mg/dL Magnesium (1.7-2.2) mg/dL Total Bilirubin (0.2-1.3) mg/dL AST (14-36) U/L ALT (7-56) U/L Alkaline Phosphatase (38-126) U/L Ammonia (9-33) umol/L Total Protein (5.8-8.3) g/dL Albumin (3.0-4.8) g/dL Globulin gm/dL Albumin/Globulin Ratio (1.1-1.8) Vitamin B12 (239-931) pg/mL Folate ng/mL TSH 3rd Generation (0.46-4.68) mIU/mL Hepatitis A IgM Ab (NEGATIVE) Hep Bs Antigen (NEGATIVE) Hep B Core IgM Ab (NEGATIVE) Hepatitis C Antibody (NEGATIVE) HIV-1 Ab Rapid Screen (NON REAC) 03/23/18 03/23/18 03/23/18 Range/Units 20:09 20:09 20:09 WBC 7.3 (4.5-11.0) 10^3/ul RBC 3.14 L (3.5-6.1) 10^6/uL Hgb 9.9 L (12.0-16.0) g/dL Hct 29.7 L (36.0-48.0) % MCV 94.6 (80.0-105.0) fl MCH 31.5 (25.0-35.0) pg MCHC 33.3 (31.0-37.0) g/dl RDW 17.3 H (11.5-14.5) % Plt Count 85 L (120.0-450.0) 10^3/uL MPV 9.0 (7.0-11.0) fl Gran % 81.5 H (50.0-68.0) % Lymph % (Auto) 7.8 L (22.0-35.0) % [place] % (Auto) 10.3 H (1.0-6.0) % Eos % (Auto) 0.3 L (1.5-5.0) % Baso % (Auto) 0.1 (0.0-3.0) % Gran # 5.93 (1.4-6.5) Lymph # (Auto) 0.6 L (1.2-3.4) [place] # (Auto) 0.8 H (0.1-0.6) Eos # (Auto) 0.0 (0.0-0.7) Baso # (Auto) 0.01 (0.0-2.0) K/mm3 PT 16.4 H (9.4-12.5) SECONDS INR 1.43 APTT 28.9 (25.1-36.5) Seconds pCO2 (35-45) mm/Hg pO2 (80-100) mm/Hg HCO3 (21-28) mmol/L ABG pH (7.35-7.45) ABG Total CO2 (22-28) mmol.L ABG O2 Saturation (95-98) % ABG O2 Content (15-23) ML/dl ABG Base Excess (-2.0-3.0) mmol/L ABG Hemoglobin (11.7-17.4) g/dL ABG Carboxyhemoglobin (0.5-1.5) % POC ABG HHb (Measured) (0-5) % ABG Methemoglobin (0.0-3.0) % ABG O2 Capacity (16-24) mL/dl Hgb O2 Saturation (95.0-98.0) % FiO2 % Sodium (132-148) mmol/L Potassium (3.6-5.0) mmol/L Chloride (98-107) mmol/L Carbon Dioxide (21-33) mmol/L Anion Gap (10-20) BUN (7-21) mg/dL Creatinine (0.7-1.2) mg/dl Est GFR ( Amer) Est GFR (Non-Af Amer) POC Glucose (mg/dL) (65-110) mg/dL Random Glucose (70-110) mg/dL Serum Osmolality (272-300) mosm/kg Calcium (8.4-10.5) mg/dL Phosphorus (2.5-4.5) mg/dL Magnesium (1.7-2.2) mg/dL Total Bilirubin (0.2-1.3) mg/dL AST (14-36) U/L ALT (7-56) U/L Alkaline Phosphatase (38-126) U/L Ammonia 39 H (9-33) umol/L Total Protein (5.8-8.3) g/dL Albumin (3.0-4.8) g/dL Globulin gm/dL Albumin/Globulin Ratio (1.1-1.8) Vitamin B12 (239-931) pg/mL Folate ng/mL TSH 3rd Generation (0.46-4.68) mIU/mL Hepatitis A IgM Ab (NEGATIVE) Hep Bs Antigen (NEGATIVE) Hep B Core IgM Ab (NEGATIVE) Hepatitis C Antibody (NEGATIVE) HIV-1 Ab Rapid Screen (NON REAC) 03/23/18 03/23/18 03/23/18 Range/Units 16:31 16:29 16:29 WBC (4.5-11.0) 10^3/ul RBC (3.5-6.1) 10^6/uL Hgb (12.0-16.0) g/dL Hct (36.0-48.0) % MCV (80.0-105.0) fl MCH (25.0-35.0) pg MCHC (31.0-37.0) g/dl RDW (11.5-14.5) % Plt Count (120.0-450.0) 10^3/uL MPV (7.0-11.0) fl Gran % (50.0-68.0) % Lymph % (Auto) (22.0-35.0) % [place] % (Auto) (1.0-6.0) % Eos % (Auto) (1.5-5.0) % Baso % (Auto) (0.0-3.0) % Gran # (1.4-6.5) Lymph # (Auto) (1.2-3.4) [place] # (Auto) (0.1-0.6) Eos # (Auto) (0.0-0.7) Baso # (Auto) (0.0-2.0) K/mm3 PT (9.4-12.5) SECONDS INR APTT (25.1-36.5) Seconds pCO2 (35-45) mm/Hg pO2 (80-100) mm/Hg HCO3 (21-28) mmol/L ABG pH (7.35-7.45) ABG Total CO2 (22-28) mmol.L ABG O2 Saturation (95-98) % ABG O2 Content (15-23) ML/dl ABG Base Excess (-2.0-3.0) mmol/L ABG Hemoglobin (11.7-17.4) g/dL ABG Carboxyhemoglobin (0.5-1.5) % POC ABG HHb (Measured) (0-5) % ABG Methemoglobin (0.0-3.0) % ABG O2 Capacity (16-24) mL/dl Hgb O2 Saturation (95.0-98.0) % FiO2 % Sodium (132-148) mmol/L Potassium (3.6-5.0) mmol/L Chloride (98-107) mmol/L Carbon Dioxide (21-33) mmol/L Anion Gap (10-20) BUN (7-21) mg/dL Creatinine (0.7-1.2) mg/dl Est GFR ( Amer) Est GFR (Non-Af Amer) POC Glucose (mg/dL) 92 (65-110) mg/dL Random Glucose (70-110) mg/dL Serum Osmolality 307 H (272-300) mosm/kg Calcium (8.4-10.5) mg/dL Phosphorus (2.5-4.5) mg/dL Magnesium (1.7-2.2) mg/dL Total Bilirubin (0.2-1.3) mg/dL AST (14-36) U/L ALT (7-56) U/L Alkaline Phosphatase (38-126) U/L Ammonia 45 H (9-33) umol/L Total Protein (5.8-8.3) g/dL Albumin (3.0-4.8) g/dL Globulin gm/dL Albumin/Globulin Ratio (1.1-1.8) Vitamin B12 (239-931) pg/mL Folate ng/mL TSH 3rd Generation (0.46-4.68) mIU/mL Hepatitis A IgM Ab (NEGATIVE) Hep Bs Antigen (NEGATIVE) Hep B Core IgM Ab (NEGATIVE) Hepatitis C Antibody (NEGATIVE) HIV-1 Ab Rapid Screen (NON REAC) 03/23/18 03/23/18 03/23/18 Range/Units 16:00 13:00 11:31 WBC (4.5-11.0) 10^3/ul RBC (3.5-6.1) 10^6/uL Hgb (12.0-16.0) g/dL Hct (36.0-48.0) % MCV (80.0-105.0) fl MCH (25.0-35.0) pg MCHC (31.0-37.0) g/dl RDW (11.5-14.5) % Plt Count (120.0-450.0) 10^3/uL MPV (7.0-11.0) fl Gran % (50.0-68.0) % Lymph % (Auto) (22.0-35.0) % [place] % (Auto) (1.0-6.0) % Eos % (Auto) (1.5-5.0) % Baso % (Auto) (0.0-3.0) % Gran # (1.4-6.5) Lymph # (Auto) (1.2-3.4) [place] # (Auto) (0.1-0.6) Eos # (Auto) (0.0-0.7) Baso # (Auto) (0.0-2.0) K/mm3 PT (9.4-12.5) SECONDS INR APTT (25.1-36.5) Seconds pCO2 30 L (35-45) mm/Hg pO2 86.0 (80-100) mm/Hg HCO3 20.9 L (21-28) mmol/L ABG pH 7.45 (7.35-7.45) ABG Total CO2 21.8 L (22-28) mmol.L ABG O2 Saturation 99.0 H (95-98) % ABG O2 Content 13.4 L (15-23) ML/dl ABG Base Excess -2.4 L (-2.0-3.0) mmol/L ABG Hemoglobin 9.8 L (11.7-17.4) g/dL ABG Carboxyhemoglobin 1.8 H (0.5-1.5) % POC ABG HHb (Measured) 1.0 (0-5) % ABG Methemoglobin 0.5 (0.0-3.0) % ABG O2 Capacity 13.5 L (16-24) mL/dl Hgb O2 Saturation 96.6 (95.0-98.0) % FiO2 40.0 % Sodium 151 H (132-148) mmol/L Potassium 3.4 L (3.6-5.0) mmol/L Chloride 121 H (98-107) mmol/L Carbon Dioxide 21 (21-33) mmol/L Anion Gap 13 (10-20) BUN 12 (7-21) mg/dL Creatinine 0.5 L (0.7-1.2) mg/dl Est GFR ( Amer) > 60 Est GFR (Non-Af Amer) > 60 POC Glucose (mg/dL) 87 (65-110) mg/dL Random Glucose 89 (70-110) mg/dL Serum Osmolality (272-300) mosm/kg Calcium 8.8 (8.4-10.5) mg/dL Phosphorus (2.5-4.5) mg/dL Magnesium (1.7-2.2) mg/dL Total Bilirubin (0.2-1.3) mg/dL AST (14-36) U/L ALT (7-56) U/L Alkaline Phosphatase (38-126) U/L Ammonia (9-33) umol/L Total Protein (5.8-8.3) g/dL Albumin (3.0-4.8) g/dL Globulin gm/dL Albumin/Globulin Ratio (1.1-1.8) Vitamin B12 (239-931) pg/mL Folate ng/mL TSH 3rd Generation (0.46-4.68) mIU/mL Hepatitis A IgM Ab (NEGATIVE) Hep Bs Antigen (NEGATIVE) Hep B Core IgM Ab (NEGATIVE) Hepatitis C Antibody (NEGATIVE) HIV-1 Ab Rapid Screen (NON REAC) 03/23/18 03/23/18 03/23/18 Range/Units 09:00 08:20 08:15 WBC (4.5-11.0) 10^3/ul RBC (3.5-6.1) 10^6/uL Hgb (12.0-16.0) g/dL Hct (36.0-48.0) % MCV (80.0-105.0) fl MCH (25.0-35.0) pg MCHC (31.0-37.0) g/dl RDW (11.5-14.5) % Plt Count (120.0-450.0) 10^3/uL MPV (7.0-11.0) fl Gran % (50.0-68.0) % Lymph % (Auto) (22.0-35.0) % [place] % (Auto) (1.0-6.0) % Eos % (Auto) (1.5-5.0) % Baso % (Auto) (0.0-3.0) % Gran # (1.4-6.5) Lymph # (Auto) (1.2-3.4) [place] # (Auto) (0.1-0.6) Eos # (Auto) (0.0-0.7) Baso # (Auto) (0.0-2.0) K/mm3 PT (9.4-12.5) SECONDS INR APTT (25.1-36.5) Seconds pCO2 26 L (35-45) mm/Hg pO2 135.0 H (80-100) mm/Hg HCO3 20.3 L (21-28) mmol/L ABG pH 7.50 H (7.35-7.45) ABG Total CO2 21.1 L (22-28) mmol.L ABG O2 Saturation 99.9 H (95-98) % ABG O2 Content 14.0 L (15-23) ML/dl ABG Base Excess -2.0 (-2.0-3.0) mmol/L ABG Hemoglobin 10.0 L (11.7-17.4) g/dL ABG Carboxyhemoglobin 1.3 (0.5-1.5) % POC ABG HHb (Measured) 0.1 (0-5) % ABG Methemoglobin 0.9 (0.0-3.0) % ABG O2 Capacity 14.0 L (16-24) mL/dl Hgb O2 Saturation 97.6 (95.0-98.0) % FiO2 50.0 % Sodium 149 H (132-148) mmol/L Potassium 3.3 L (3.6-5.0) mmol/L Chloride 119 H (98-107) mmol/L Carbon Dioxide 22 (21-33) mmol/L Anion Gap 12 (10-20) BUN 12 (7-21) mg/dL Creatinine 0.4 L (0.7-1.2) mg/dl Est GFR ( Amer) > 60 Est GFR (Non-Af Amer) > 60 POC Glucose (mg/dL) (65-110) mg/dL Random Glucose 96 (70-110) mg/dL Serum Osmolality 305 H (272-300) mosm/kg Calcium 8.6 (8.4-10.5) mg/dL Phosphorus (2.5-4.5) mg/dL Magnesium (1.7-2.2) mg/dL Total Bilirubin 2.8 H (0.2-1.3) mg/dL AST 60 H (14-36) U/L ALT 35 (7-56) U/L Alkaline Phosphatase 111 (38-126) U/L Ammonia (9-33) umol/L Total Protein 7.1 (5.8-8.3) g/dL Albumin 3.1 (3.0-4.8) g/dL Globulin 4.0 gm/dL Albumin/Globulin Ratio 0.8 L (1.1-1.8) Vitamin B12 (239-931) pg/mL Folate ng/mL TSH 3rd Generation (0.46-4.68) mIU/mL Hepatitis A IgM Ab (NEGATIVE) Hep Bs Antigen (NEGATIVE) Hep B Core IgM Ab (NEGATIVE) Hepatitis C Antibody (NEGATIVE) HIV-1 Ab Rapid Screen (NON REAC) 03/23/18 03/23/18 03/23/18 Range/Units 08:11 06:10 06:00 WBC (4.5-11.0) 10^3/ul RBC (3.5-6.1) 10^6/uL Hgb (12.0-16.0) g/dL Hct (36.0-48.0) % MCV (80.0-105.0) fl MCH (25.0-35.0) pg MCHC (31.0-37.0) g/dl RDW (11.5-14.5) % Plt Count (120.0-450.0) 10^3/uL MPV (7.0-11.0) fl Gran % (50.0-68.0) % Lymph % (Auto) (22.0-35.0) % [place] % (Auto) (1.0-6.0) % Eos % (Auto) (1.5-5.0) % Baso % (Auto) (0.0-3.0) % Gran # (1.4-6.5) Lymph # (Auto) (1.2-3.4) [place] # (Auto) (0.1-0.6) Eos # (Auto) (0.0-0.7) Baso # (Auto) (0.0-2.0) K/mm3 PT (9.4-12.5) SECONDS INR APTT (25.1-36.5) Seconds pCO2 (35-45) mm/Hg pO2 (80-100) mm/Hg HCO3 (21-28) mmol/L ABG pH (7.35-7.45) ABG Total CO2 (22-28) mmol.L ABG O2 Saturation (95-98) % ABG O2 Content (15-23) ML/dl ABG Base Excess (-2.0-3.0) mmol/L ABG Hemoglobin (11.7-17.4) g/dL ABG Carboxyhemoglobin (0.5-1.5) % POC ABG HHb (Measured) (0-5) % ABG Methemoglobin (0.0-3.0) % ABG O2 Capacity (16-24) mL/dl Hgb O2 Saturation (95.0-98.0) % FiO2 % Sodium (132-148) mmol/L Potassium (3.6-5.0) mmol/L Chloride (98-107) mmol/L Carbon Dioxide (21-33) mmol/L Anion Gap (10-20) BUN (7-21) mg/dL Creatinine (0.7-1.2) mg/dl Est GFR ( Amer) Est GFR (Non-Af Amer) POC Glucose (mg/dL) 103 (65-110) mg/dL Random Glucose (70-110) mg/dL Serum Osmolality (272-300) mosm/kg Calcium (8.4-10.5) mg/dL Phosphorus (2.5-4.5) mg/dL Magnesium (1.7-2.2) mg/dL Total Bilirubin (0.2-1.3) mg/dL AST (14-36) U/L ALT (7-56) U/L Alkaline Phosphatase (38-126) U/L Ammonia (9-33) umol/L Total Protein (5.8-8.3) g/dL Albumin (3.0-4.8) g/dL Globulin gm/dL Albumin/Globulin Ratio (1.1-1.8) Vitamin B12 (239-931) pg/mL Folate ng/mL TSH 3rd Generation 0.48 (0.46-4.68) mIU/mL Hepatitis A IgM Ab Negative (NEGATIVE) Hep Bs Antigen Negative (NEGATIVE) Hep B Core IgM Ab Negative (NEGATIVE) Hepatitis C Antibody Negative (NEGATIVE) HIV-1 Ab Rapid Screen (NON REAC) 03/23/18 03/23/18 Range/Units 06:00 06:00 WBC (4.5-11.0) 10^3/ul RBC (3.5-6.1) 10^6/uL Hgb (12.0-16.0) g/dL Hct (36.0-48.0) % MCV (80.0-105.0) fl MCH (25.0-35.0) pg MCHC (31.0-37.0) g/dl RDW (11.5-14.5) % Plt Count (120.0-450.0) 10^3/uL MPV (7.0-11.0) fl Gran % (50.0-68.0) % Lymph % (Auto) (22.0-35.0) % [place] % (Auto) (1.0-6.0) % Eos % (Auto) (1.5-5.0) % Baso % (Auto) (0.0-3.0) % Gran # (1.4-6.5) Lymph # (Auto) (1.2-3.4) Pitt # (Auto) (0.1-0.6) Eos # (Auto) (0.0-0.7) Baso # (Auto) (0.0-2.0) K/mm3 PT (9.4-12.5) SECONDS INR APTT (25.1-36.5) Seconds pCO2 (35-45) mm/Hg pO2 (80-100) mm/Hg HCO3 (21-28) mmol/L ABG pH (7.35-7.45) ABG Total CO2 (22-28) mmol.L ABG O2 Saturation (95-98) % ABG O2 Content (15-23) ML/dl ABG Base Excess (-2.0-3.0) mmol/L ABG Hemoglobin (11.7-17.4) g/dL ABG Carboxyhemoglobin (0.5-1.5) % POC ABG HHb (Measured) (0-5) % ABG Methemoglobin (0.0-3.0) % ABG O2 Capacity (16-24) mL/dl Hgb O2 Saturation (95.0-98.0) % FiO2 % Sodium (132-148) mmol/L Potassium (3.6-5.0) mmol/L Chloride (98-107) mmol/L Carbon Dioxide (21-33) mmol/L Anion Gap (10-20) BUN (7-21) mg/dL Creatinine (0.7-1.2) mg/dl Est GFR ( Amer) Est GFR (Non-Af Amer) POC Glucose (mg/dL) (65-110) mg/dL Random Glucose (70-110) mg/dL Serum Osmolality (272-300) mosm/kg Calcium (8.4-10.5) mg/dL Phosphorus (2.5-4.5) mg/dL Magnesium (1.7-2.2) mg/dL Total Bilirubin (0.2-1.3) mg/dL AST (14-36) U/L ALT (7-56) U/L Alkaline Phosphatase (38-126) U/L Ammonia (9-33) umol/L Total Protein (5.8-8.3) g/dL Albumin (3.0-4.8) g/dL Globulin gm/dL Albumin/Globulin Ratio (1.1-1.8) Vitamin B12 911 (239-931) pg/mL Folate 7.9 ng/mL TSH 3rd Generation (0.46-4.68) mIU/mL Hepatitis A IgM Ab (NEGATIVE) Hep Bs Antigen (NEGATIVE) Hep B Core IgM Ab (NEGATIVE) Hepatitis C Antibody (NEGATIVE) HIV-1 Ab Rapid Screen Non reactive (NON REAC) Laboratory Results - last 24 hr 03/23/18 03/23/18 03/23/18 06:00 06:00 06:00 WBC RBC Hgb Hct MCV MCH MCHC RDW Plt Count MPV Gran % Lymph % (Auto) Pitt % (Auto) Eos % (Auto) Baso % (Auto) Gran # Lymph # (Auto) Pitt # (Auto) Eos # (Auto) Baso # (Auto) PT INR APTT pCO2 pO2 HCO3 ABG pH ABG Total CO2 ABG O2 Saturation ABG O2 Content ABG Base Excess ABG Hemoglobin ABG Carboxyhemoglobin POC ABG HHb (Measured) ABG Methemoglobin ABG O2 Capacity Hgb O2 Saturation FiO2 Sodium Potassium Chloride Carbon Dioxide Anion Gap BUN Creatinine Est GFR ( Amer) Est GFR (Non-Af Amer) POC Glucose (mg/dL) Random Glucose Serum Osmolality Calcium Phosphorus Magnesium Total Bilirubin AST ALT Alkaline Phosphatase Ammonia Total Protein Albumin Globulin Albumin/Globulin Ratio Vitamin B12 911 Folate 7.9 TSH 3rd Generation 0.48 Hepatitis A IgM Ab Hep Bs Antigen Hep B Core IgM Ab Hepatitis C Antibody HIV-1 Ab Rapid Screen Non reactive 03/23/18 03/23/18 03/23/18 06:10 08:11 08:15 WBC RBC Hgb Hct MCV MCH MCHC RDW Plt Count MPV Gran % Lymph % (Auto) [place] % (Auto) Eos % (Auto) Baso % (Auto) Gran # Lymph # (Auto) [place] # (Auto) Eos # (Auto) Baso # (Auto) PT INR APTT pCO2 pO2 HCO3 ABG pH ABG Total CO2 ABG O2 Saturation ABG O2 Content ABG Base Excess ABG Hemoglobin ABG Carboxyhemoglobin POC ABG HHb (Measured) ABG Methemoglobin ABG O2 Capacity Hgb O2 Saturation FiO2 Sodium 149 H Potassium 3.3 L Chloride 119 H Carbon Dioxide 22 Anion Gap 12 BUN 12 Creatinine 0.4 L Est GFR ( Amer) > 60 Est GFR (Non-Af Amer) > 60 POC Glucose (mg/dL) 103 Random Glucose 96 Serum Osmolality Calcium 8.6 Phosphorus Magnesium Total Bilirubin 2.8 H AST 60 H ALT 35 Alkaline Phosphatase 111 Ammonia Total Protein 7.1 Albumin 3.1 Globulin 4.0 Albumin/Globulin Ratio 0.8 L Vitamin B12 Folate TSH 3rd Generation Hepatitis A IgM Ab Negative Hep Bs Antigen Negative Hep B Core IgM Ab Negative Hepatitis C Antibody Negative HIV-1 Ab Rapid Screen 03/23/18 03/23/18 03/23/18 08:20 09:00 11:31 WBC RBC Hgb Hct MCV MCH MCHC RDW Plt Count MPV Gran % Lymph % (Auto) [place] % (Auto) Eos % (Auto) Baso % (Auto) Gran # Lymph # (Auto) [place] # (Auto) Eos # (Auto) Baso # (Auto) PT INR APTT pCO2 26 L pO2 135.0 H HCO3 20.3 L ABG pH 7.50 H ABG Total CO2 21.1 L ABG O2 Saturation 99.9 H ABG O2 Content 14.0 L ABG Base Excess -2.0 ABG Hemoglobin 10.0 L ABG Carboxyhemoglobin 1.3 POC ABG HHb (Measured) 0.1 ABG Methemoglobin 0.9 ABG O2 Capacity 14.0 L Hgb O2 Saturation 97.6 FiO2 50.0 Sodium Potassium Chloride Carbon Dioxide Anion Gap BUN Creatinine Est GFR ( Amer) Est GFR (Non-Af Amer) POC Glucose (mg/dL) 87 Random Glucose Serum Osmolality 305 H Calcium Phosphorus Magnesium Total Bilirubin AST ALT Alkaline Phosphatase Ammonia Total Protein Albumin Globulin Albumin/Globulin Ratio Vitamin B12 Folate TSH 3rd Generation Hepatitis A IgM Ab Hep Bs Antigen Hep B Core IgM Ab Hepatitis C Antibody HIV-1 Ab Rapid Screen 03/23/18 03/23/18 03/23/18 13:00 16:00 16:29 WBC RBC Hgb Hct MCV MCH MCHC RDW Plt Count MPV Gran % Lymph % (Auto) [place] % (Auto) Eos % (Auto) Baso % (Auto) Gran # Lymph # (Auto) [place] # (Auto) Eos # (Auto) Baso # (Auto) PT INR APTT pCO2 30 L pO2 86.0 HCO3 20.9 L ABG pH 7.45 ABG Total CO2 21.8 L ABG O2 Saturation 99.0 H ABG O2 Content 13.4 L ABG Base Excess -2.4 L ABG Hemoglobin 9.8 L ABG Carboxyhemoglobin 1.8 H POC ABG HHb (Measured) 1.0 ABG Methemoglobin 0.5 ABG O2 Capacity 13.5 L Hgb O2 Saturation 96.6 FiO2 40.0 Sodium 151 H Potassium 3.4 L Chloride 121 H Carbon Dioxide 21 Anion Gap 13 BUN 12 Creatinine 0.5 L Est GFR ( Amer) > 60 Est GFR (Non-Af Amer) > 60 POC Glucose (mg/dL) Random Glucose 89 Serum Osmolality 307 H Calcium 8.8 Phosphorus Magnesium Total Bilirubin AST ALT Alkaline Phosphatase Ammonia Total Protein Albumin Globulin Albumin/Globulin Ratio Vitamin B12 Folate TSH 3rd Generation Hepatitis A IgM Ab Hep Bs Antigen Hep B Core IgM Ab Hepatitis C Antibody HIV-1 Ab Rapid Screen 03/23/18 03/23/18 03/23/18 16:29 16:31 20:09 WBC RBC Hgb Hct MCV MCH MCHC RDW Plt Count MPV Gran % Lymph % (Auto) [place] % (Auto) Eos % (Auto) Baso % (Auto) Gran # Lymph # (Auto) [place] # (Auto) Eos # (Auto) Baso # (Auto) PT 16.4 H INR 1.43 APTT 28.9 pCO2 pO2 HCO3 ABG pH ABG Total CO2 ABG O2 Saturation ABG O2 Content ABG Base Excess ABG Hemoglobin ABG Carboxyhemoglobin POC ABG HHb (Measured) ABG Methemoglobin ABG O2 Capacity Hgb O2 Saturation FiO2 Sodium Potassium Chloride Carbon Dioxide Anion Gap BUN Creatinine Est GFR ( Amer) Est GFR (Non-Af Amer) POC Glucose (mg/dL) 92 Random Glucose Serum Osmolality Calcium Phosphorus Magnesium Total Bilirubin AST ALT Alkaline Phosphatase Ammonia 45 H Total Protein Albumin Globulin Albumin/Globulin Ratio Vitamin B12 Folate TSH 3rd Generation Hepatitis A IgM Ab Hep Bs Antigen Hep B Core IgM Ab Hepatitis C Antibody HIV-1 Ab Rapid Screen 03/23/18 03/23/18 03/23/18 20:09 20:09 20:09 WBC 7.3 RBC 3.14 L Hgb 9.9 L Hct 29.7 L MCV 94.6 MCH 31.5 MCHC 33.3 RDW 17.3 H Plt Count 85 L MPV 9.0 Gran % 81.5 H Lymph % (Auto) 7.8 L [place] % (Auto) 10.3 H Eos % (Auto) 0.3 L Baso % (Auto) 0.1 Gran # 5.93 Lymph # (Auto) 0.6 L [place] # (Auto) 0.8 H Eos # (Auto) 0.0 Baso # (Auto) 0.01 PT INR APTT pCO2 pO2 HCO3 ABG pH ABG Total CO2 ABG O2 Saturation ABG O2 Content ABG Base Excess ABG Hemoglobin ABG Carboxyhemoglobin POC ABG HHb (Measured) ABG Methemoglobin ABG O2 Capacity Hgb O2 Saturation FiO2 Sodium 150 H Potassium 3.2 L Chloride 120 H Carbon Dioxide 23 Anion Gap 12 BUN 12 Creatinine 0.5 L Est GFR ( Amer) > 60 Est GFR (Non-Af Amer) > 60 POC Glucose (mg/dL) Random Glucose 88 Serum Osmolality Calcium 9.0 Phosphorus Magnesium Total Bilirubin AST ALT Alkaline Phosphatase Ammonia 39 H Total Protein Albumin Globulin Albumin/Globulin Ratio Vitamin B12 Folate TSH 3rd Generation Hepatitis A IgM Ab Hep Bs Antigen Hep B Core IgM Ab Hepatitis C Antibody HIV-1 Ab Rapid Screen 03/23/18 03/23/18 03/24/18 20:09 21:49 05:00 WBC 9.4 D RBC 3.16 L Hgb 10.1 L Hct 29.9 L MCV 94.6 MCH 32.0 MCHC 33.8 RDW 17.2 H Plt Count 102 L MPV 9.3 Gran % 83.5 H Lymph % (Auto) 4.5 L Pitt % (Auto) 11.6 H Eos % (Auto) 0.3 L Baso % (Auto) 0.1 Gran # 7.86 H Lymph # (Auto) 0.4 L Pitt # (Auto) 1.1 H Eos # (Auto) 0.0 Baso # (Auto) 0.01 PT INR APTT pCO2 pO2 HCO3 ABG pH ABG Total CO2 ABG O2 Saturation ABG O2 Content ABG Base Excess ABG Hemoglobin ABG Carboxyhemoglobin POC ABG HHb (Measured) ABG Methemoglobin ABG O2 Capacity Hgb O2 Saturation FiO2 Sodium Potassium Chloride Carbon Dioxide Anion Gap BUN Creatinine Est GFR ( Amer) Est GFR (Non-Af Amer) POC Glucose (mg/dL) 85 Random Glucose Serum Osmolality 305 H Calcium Phosphorus Magnesium Total Bilirubin AST ALT Alkaline Phosphatase Ammonia Total Protein Albumin Globulin Albumin/Globulin Ratio Vitamin B12 Folate TSH 3rd Generation Hepatitis A IgM Ab Hep Bs Antigen Hep B Core IgM Ab Hepatitis C Antibody HIV-1 Ab Rapid Screen 03/24/18 03/24/18 05:00 05:00 WBC RBC Hgb Hct MCV MCH MCHC RDW Plt Count MPV Gran % Lymph % (Auto) Pitt % (Auto) Eos % (Auto) Baso % (Auto) Gran # Lymph # (Auto) Pitt # (Auto) Eos # (Auto) Baso # (Auto) PT 17.6 H INR 1.52 APTT 30.9 pCO2 pO2 HCO3 ABG pH ABG Total CO2 ABG O2 Saturation ABG O2 Content ABG Base Excess ABG Hemoglobin ABG Carboxyhemoglobin POC ABG HHb (Measured) ABG Methemoglobin ABG O2 Capacity Hgb O2 Saturation FiO2 Sodium 151 H Potassium 3.4 L Chloride 119 H Carbon Dioxide 22 Anion Gap 14 BUN 11 Creatinine 0.5 L Est GFR ( Amer) > 60 Est GFR (Non-Af Amer) > 60 POC Glucose (mg/dL) Random Glucose 94 Serum Osmolality Calcium 9.0 Phosphorus 2.5 Magnesium 1.8 Total Bilirubin 3.8 H AST 63 H ALT 32 Alkaline Phosphatase 122 Ammonia Total Protein 7.5 Albumin 3.5 Globulin 4.0 Albumin/Globulin Ratio 0.9 L Vitamin B12 Folate TSH 3rd Generation Hepatitis A IgM Ab Hep Bs Antigen Hep B Core IgM Ab Hepatitis C Antibody HIV-1 Ab Rapid Screen Fingerstick Blood Sugar Results: 85 Review of Systems - Review of Systems Systems not reviewed;Unavailable: Intubated Critical Care Progress Note - Ventilator Checklist Head of Bed 30 Degrees: Yes PUD Prophalyxis: Yes DVT Prophylaxis: Yes - Vent Settings MODE:: PRVC TIDAL VOLUME:: 400 RESP RATE:: 16 FIO2:: 40 PEEP:: 5 - Extremities/Vascular Does the Patient have a Central Venous Catheter?: Yes Insertion Site: Internal Jugular Vein Does the Patient need a Central Venous Catheter?: Yes (need for blood products) Does the Patient have a Donahue Catheter?: Yes Does the Patient need a Donahue Catheter?: Yes (intubated) Catheter Insertion Criteria: Need for accurate measurement of output in critically ill patient - Prophylaxis GI Prophylaxis GI: Pepsid - Prophylaxis DVT Prophylaxis DVT: SCDs Assessment/Plan - Assessment and Plan (Free Text) Assessment: 62 year old female with PMH cirrhosis, esophageal varices s/p banding 2014, spinal stenosis, arthritis, alcohol abuse, [place] [facility] [place], requiring intubation in ED. Found to have 2x2 CM L occipital hemorrhagic stroke which has progressed to 5x5 9/2 AM. Currently intubated and sedated on propofol drip and Midazolam, requiring Cardene drip for BP control Plan: Neuro : -Continuous EEG monitoring - Will keep BP goals: SBP 120-140/80-90. - Unresponsive, + twitching body movements noted on admission no longer present - C/w keppra 500 BID - continue to wean Midazolam today - C/w Propofol Drip - c/w Hypertonic Saline 3% @ 30cc/hr; monitor Na (<155) and Serum Osm (<325); BMP q8hrs - Neurosurgery on board. No acute surgical intervention. Keep HOB>30 degrees. - Neurology Following - Discussed w/ neurosurgery use of acute steroid therapy in setting of ICH; no need for acute steroid therapy at this time. - Seizure precautions, neuro checks. - 03/21 CT head showed hemorrhage within the medial left occipital lobe measuring approximately 2.8 x 2.8 cm with associated edema/necrosis. This finding exerts mass effect on the atrium of the ventricles anterior laterally. Location of this hemorrhage is atypical for hypertensive hemorrhage. Considerations include atypical hypertensive hemorrhage, underlying vascular lesion, hemorrhagic tumor is considered less likely. - 03/22 CT Head showed increasing left occipital lobe hemorrhage 5.3x3.3cm from 2.2x2.2cm. Intraventricular extension of hemorrhage involving left lateral and 3rd ventricles. Increasing dilatation of the left lateral ventricle. - 03/23 CTA no AVM, no aneurysm, no stenosis or blockage, hemorrhage stable in size - 03/24 CT head no change, stable hemorrhage CV: - Keep BP goal 120-140/80-90. - Begin Cardene drip 20 mg in 200 mL at 5mg/hr. - Continue to monitor. Pulm: - Intubated on Pressure Support/ CPAP - Maintain O2 sat>92-94% - Continue with HOB elevation> 35 degrees, aspiration precautions. - Continue with protected lung ventilation strategies with TV of 6 ml/kg of IBW , plateau pressure less than 35, head of bed elevation above 35 degrees, pulm toileting - ABG 7.51/ CO2 27/ )2 64/ HCO3 27.5 - change settings back to PRVC RR 16 TV 400 PEEP 5 O2 40% GI: - NPO. Continue with Protonix. - consider beginning OG tube feeds tomorrow, will discuss with GI/nutrition Renal : - BUN/Cr 11/0.5 - UOP appropriate - Replace lytes, maintain euvolemia. - Continue to monitor. ID: Afebrile, no leukocytosis. - all cultures negative to date - CXR Chronic interstitial markings; Patchy left lower lobe atelectasis/ infiltrate; biapical pleural thickening; right lung opacity improved on CXR 03/24 - Monitor for s/s infection - normal WBC 9.4, patient has been afebrile, Tmax 99.9 Endo: Maintain euglycemia. Heme: - Patient historically has had thrombocytopenia - PLT today is 102 from 78 day prior - Post 2U platelet transfusion 03/21, 4 U platelets and 2 FFP 03/22 (INR 1.55 03/23). 2 u Platelets, 2FFP on 03/23 - Platelet goal set for >100,000 in setting of ICH/ Hemorrhagic stroke - Hematology consulted for thrombocytopenia - Hgb improved to 10.1 from 9.9 on 03/23 - Total bili 3.8 from 2.8 on 03/23 DVT ppx - SCDs in setting of brain hemorrhage GI ppx - Protonix - Date & Time Date: 03/24/18 <Champ [place]una - Last Filed: 03/24/18 17:02> CCU Objective - Vital Signs / Intake & Output Vital Signs (Last 4 hours): Vital Signs Pulse 03/24/18 14:00 83 Intake and Output (Last 8hrs): Intake & Output 03/24/18 03/24/18 03/24/18 06:59 14:59 22:59 Intake Total 1427 242.5 125 Output Total 975 200 Balance 452 42.5 125 Weight 142 lb 3 oz Intake: IV 824 242.5 125 3% hypertonic 360 90 Propofol 120 30 Versed 24 6 potassium 200 0 Oral 0 Blood Product 603 Apheresis Plts Acda Lr 301 2nd Con Unit [id number] Output: Urine 975 200 Urethral (Donahue) 975 200 Stool 0 Emesis 0 - Medications Active Medications: Active Medications Generic Name Dose Route Start Last Admin Trade Name Freq PRN Reason Stop Dose Admin Famotidine 20 mg 03/23/18 10:00 03/24/18 10:19 Pepcid IVP 20 mg DAILY STEVEN Administration Levetiracetam 500 mg in 100 mls @ 460 mls/hr 03/22/18 10:00 03/24/18 10:19 Keppra 500mg Ivpb IVPB 460 mls/hr Q12 STEVEN Administration Nicardipine HCl 20 mg in 200 mls @ 50 mls/hr 03/24/18 07:57 03/24/18 15:58 Cardene Iv Premix IV 1 mg/hr .Q4H PRN 10 mls/hr TITRATE PER MD ORDER Administration Protocol 5 MG/HR Potassium Chloride 20 meq in 100 mls @ 50 mls/hr 03/24/18 14:00 03/24/18 15: 11 Potassium Chloride 20 Meq/100 Ml IVPB 03/24/18 17:59 50 mls/hr Q2H STEVEN Administration Dextrose/Sodium Chloride 1,000 mls @ 100 mls/hr 03/24/18 15:30 03/24/18 15:31 Dextrose 5%/0.9% Ns 1000 Ml IV 100 mls/hr .Q10H STEVEN Administration Insulin Human Regular 0 units 03/24/18 14:00 03/24/18 15:30 Humulin R Low SC Not Given Q6H STEVEN Protocol Vitamin A 1 ea 03/23/18 17:50 03/24/18 10:19 Vitamin A & D Oint Ud Foilpak TOP 1 ea Q12 PRN Administration apply to dry lips - Patient Studies Lab Studies: Microbiology Studies 03/21/18 18:30 Blood Culture - Preliminary Blood-Venous NO GROWTH AFTER 48 HOURS 03/21/18 18:00 Blood Culture - Preliminary Blood-Venous NO GROWTH AFTER 48 HOURS 03/21/18 18:20 Urine Culture - Final Urine No Growth (<1,000 CFU/ML) 03/21/18 18:15 MRSA Culture (Admit) - Final Nose MRSA NOT DETECTED Lab Studies 03/24/18 03/24/18 03/24/18 Range/Units 11:45 11:45 11:20 WBC (4.5-11.0) 10^3/ul RBC (3.5-6.1) 10^6/uL Hgb (12.0-16.0) g/dL Hct (36.0-48.0) % MCV (80.0-105.0) fl MCH (25.0-35.0) pg MCHC (31.0-37.0) g/dl RDW (11.5-14.5) % Plt Count (120.0-450.0) 10^3/uL Manual Plt Count (120-450) K/mm3 MPV (7.0-11.0) fl Gran % (50.0-68.0) % Lymph % (Auto) (22.0-35.0) % Pitt % (Auto) (1.0-6.0) % Eos % (Auto) (1.5-5.0) % Baso % (Auto) (0.0-3.0) % Gran # (1.4-6.5) Lymph # (Auto) (1.2-3.4) Pitt # (Auto) (0.1-0.6) Eos # (Auto) (0.0-0.7) Baso # (Auto) (0.0-2.0) K/mm3 Neutrophils % (Manual) (50.0-70.0) % Band Neutrophils % (0-2) % Lymphocytes % (Manual) (22.0-35.0) % Monocytes % (Manual) (1.0-6.0) % Platelet Evaluation (NORMAL) PT (9.4-12.5) SECONDS INR APTT (25.1-36.5) Seconds pCO2 24 L (35-45) mm/Hg pO2 55.0 L (80-100) mm/Hg HCO3 19.2 L (21-28) mmol/L ABG pH 7.51 H (7.35-7.45) ABG Total CO2 19.9 L (22-28) mmol.L ABG O2 Saturation 93.3 L (95-98) % ABG O2 Content 13.4 L (15-23) ML/dl ABG Base Excess -2.6 L (-2.0-3.0) mmol/L ABG Hemoglobin 10.6 L (11.7-17.4) g/dL ABG Carboxyhemoglobin 2.3 H (0.5-1.5) % POC ABG HHb (Measured) 6.5 H (0-5) % ABG Methemoglobin 1.1 (0.0-3.0) % ABG O2 Capacity 14.4 L (16-24) mL/dl Hgb O2 Saturation 90.0 L (95.0-98.0) % FiO2 40.0 % Sodium 150 H (132-148) mmol/L Potassium 3.2 L (3.6-5.0) mmol/L Chloride 119 H (98-107) mmol/L Carbon Dioxide 21 (21-33) mmol/L Anion Gap 13 (10-20) BUN 11 (7-21) mg/dL Creatinine 0.5 L (0.7-1.2) mg/dl Est GFR ( Amer) > 60 Est GFR (Non-Af Amer) > 60 POC Glucose (mg/dL) (65-110) mg/dL Random Glucose 107 (70-110) mg/dL Serum Osmolality 301 H (272-300) mosm/kg Calcium 8.8 (8.4-10.5) mg/dL Phosphorus (2.5-4.5) mg/dL Magnesium (1.7-2.2) mg/dL Total Bilirubin (0.2-1.3) mg/dL AST (14-36) U/L ALT (7-56) U/L Alkaline Phosphatase (38-126) U/L Ammonia (9-33) umol/L Total Protein (5.8-8.3) g/dL Albumin (3.0-4.8) g/dL Globulin gm/dL Albumin/Globulin Ratio (1.1-1.8) 03/24/18 03/24/18 03/24/18 Range/Units 11:19 07:43 06:00 WBC (4.5-11.0) 10^3/ul RBC (3.5-6.1) 10^6/uL Hgb (12.0-16.0) g/dL Hct (36.0-48.0) % MCV (80.0-105.0) fl MCH (25.0-35.0) pg MCHC (31.0-37.0) g/dl RDW (11.5-14.5) % Plt Count (120.0-450.0) 10^3/uL Manual Plt Count (120-450) K/mm3 MPV (7.0-11.0) fl Gran % (50.0-68.0) % Lymph % (Auto) (22.0-35.0) % Pitt % (Auto) (1.0-6.0) % Eos % (Auto) (1.5-5.0) % Baso % (Auto) (0.0-3.0) % Gran # (1.4-6.5) Lymph # (Auto) (1.2-3.4) Pitt # (Auto) (0.1-0.6) Eos # (Auto) (0.0-0.7) Baso # (Auto) (0.0-2.0) K/mm3 Neutrophils % (Manual) (50.0-70.0) % Band Neutrophils % (0-2) % Lymphocytes % (Manual) (22.0-35.0) % Monocytes % (Manual) (1.0-6.0) % Platelet Evaluation (NORMAL) PT (9.4-12.5) SECONDS INR APTT (25.1-36.5) Seconds pCO2 27 L (35-45) mm/Hg pO2 64.0 L (80-100) mm/Hg HCO3 21.5 (21-28) mmol/L ABG pH 7.51 H (7.35-7.45) ABG Total CO2 22.3 (22-28) mmol.L ABG O2 Saturation 95.3 (95-98) % ABG O2 Content 17.5 (15-23) ML/dl ABG Base Excess -0.3 (-2.0-3.0) mmol/L ABG Hemoglobin 13.4 (11.7-17.4) g/dL ABG Carboxyhemoglobin 1.8 H (0.5-1.5) % POC ABG HHb (Measured) 4.6 (0-5) % ABG Methemoglobin 0.8 (0.0-3.0) % ABG O2 Capacity 18.4 (16-24) mL/dl Hgb O2 Saturation 92.7 L (95.0-98.0) % FiO2 40.0 % Sodium (132-148) mmol/L Potassium (3.6-5.0) mmol/L Chloride (98-107) mmol/L Carbon Dioxide (21-33) mmol/L Anion Gap (10-20) BUN (7-21) mg/dL Creatinine (0.7-1.2) mg/dl Est GFR ( Amer) Est GFR (Non-Af Amer) POC Glucose (mg/dL) 104 82 (65-110) mg/dL Random Glucose (70-110) mg/dL Serum Osmolality (272-300) mosm/kg Calcium (8.4-10.5) mg/dL Phosphorus (2.5-4.5) mg/dL Magnesium (1.7-2.2) mg/dL Total Bilirubin (0.2-1.3) mg/dL AST (14-36) U/L ALT (7-56) U/L Alkaline Phosphatase (38-126) U/L Ammonia (9-33) umol/L Total Protein (5.8-8.3) g/dL Albumin (3.0-4.8) g/dL Globulin gm/dL Albumin/Globulin Ratio (1.1-1.8) 03/24/18 03/24/18 03/24/18 Range/Units 05:00 05:00 05:00 WBC (4.5-11.0) 10^3/ul RBC (3.5-6.1) 10^6/uL Hgb (12.0-16.0) g/dL Hct (36.0-48.0) % MCV (80.0-105.0) fl MCH (25.0-35.0) pg MCHC (31.0-37.0) g/dl RDW (11.5-14.5) % Plt Count (120.0-450.0) 10^3/uL Manual Plt Count 124 (120-450) K/mm3 MPV (7.0-11.0) fl Gran % (50.0-68.0) % Lymph % (Auto) (22.0-35.0) % Pitt % (Auto) (1.0-6.0) % Eos % (Auto) (1.5-5.0) % Baso % (Auto) (0.0-3.0) % Gran # (1.4-6.5) Lymph # (Auto) (1.2-3.4) Pitt # (Auto) (0.1-0.6) Eos # (Auto) (0.0-0.7) Baso # (Auto) (0.0-2.0) K/mm3 Neutrophils % (Manual) (50.0-70.0) % Band Neutrophils % (0-2) % Lymphocytes % (Manual) (22.0-35.0) % Monocytes % (Manual) (1.0-6.0) % Platelet Evaluation (NORMAL) PT 17.6 H (9.4-12.5) SECONDS INR 1.52 APTT 30.9 (25.1-36.5) Seconds pCO2 (35-45) mm/Hg pO2 (80-100) mm/Hg HCO3 (21-28) mmol/L ABG pH (7.35-7.45) ABG Total CO2 (22-28) mmol.L ABG O2 Saturation (95-98) % ABG O2 Content (15-23) ML/dl ABG Base Excess (-2.0-3.0) mmol/L ABG Hemoglobin (11.7-17.4) g/dL ABG Carboxyhemoglobin (0.5-1.5) % POC ABG HHb (Measured) (0-5) % ABG Methemoglobin (0.0-3.0) % ABG O2 Capacity (16-24) mL/dl Hgb O2 Saturation (95.0-98.0) % FiO2 % Sodium (132-148) mmol/L Potassium (3.6-5.0) mmol/L Chloride (98-107) mmol/L Carbon Dioxide (21-33) mmol/L Anion Gap (10-20) BUN (7-21) mg/dL Creatinine (0.7-1.2) mg/dl Est GFR ( Amer) Est GFR (Non-Af Amer) POC Glucose (mg/dL) (65-110) mg/dL Random Glucose (70-110) mg/dL Serum Osmolality 309 H (272-300) mosm/kg Calcium (8.4-10.5) mg/dL Phosphorus (2.5-4.5) mg/dL Magnesium (1.7-2.2) mg/dL Total Bilirubin (0.2-1.3) mg/dL AST (14-36) U/L ALT (7-56) U/L Alkaline Phosphatase (38-126) U/L Ammonia (9-33) umol/L Total Protein (5.8-8.3) g/dL Albumin (3.0-4.8) g/dL Globulin gm/dL Albumin/Globulin Ratio (1.1-1.8) 03/24/18 03/24/18 03/23/18 Range/Units 05:00 05:00 21:49 WBC 9.4 D (4.5-11.0) 10^3/ul RBC 3.16 L (3.5-6.1) 10^6/uL Hgb 10.1 L (12.0-16.0) g/dL Hct 29.9 L (36.0-48.0) % MCV 94.6 (80.0-105.0) fl MCH 32.0 (25.0-35.0) pg MCHC 33.8 (31.0-37.0) g/dl RDW 17.2 H (11.5-14.5) % Plt Count 102 L (120.0-450.0) 10^3/uL Manual Plt Count (120-450) K/mm3 MPV 9.3 (7.0-11.0) fl Gran % 83.5 H (50.0-68.0) % Lymph % (Auto) 4.5 L (22.0-35.0) % Pitt % (Auto) 11.6 H (1.0-6.0) % Eos % (Auto) 0.3 L (1.5-5.0) % Baso % (Auto) 0.1 (0.0-3.0) % Gran # 7.86 H (1.4-6.5) Lymph # (Auto) 0.4 L (1.2-3.4) Pitt # (Auto) 1.1 H (0.1-0.6) Eos # (Auto) 0.0 (0.0-0.7) Baso # (Auto) 0.01 (0.0-2.0) K/mm3 Neutrophils % (Manual) 88 H (50.0-70.0) % Band Neutrophils % 2 (0-2) % Lymphocytes % (Manual) 8 L (22.0-35.0) % Monocytes % (Manual) 2 (1.0-6.0) % Platelet Evaluation Low (NORMAL) PT (9.4-12.5) SECONDS INR APTT (25.1-36.5) Seconds pCO2 (35-45) mm/Hg pO2 (80-100) mm/Hg HCO3 (21-28) mmol/L ABG pH (7.35-7.45) ABG Total CO2 (22-28) mmol.L ABG O2 Saturation (95-98) % ABG O2 Content (15-23) ML/dl ABG Base Excess (-2.0-3.0) mmol/L ABG Hemoglobin (11.7-17.4) g/dL ABG Carboxyhemoglobin (0.5-1.5) % POC ABG HHb (Measured) (0-5) % ABG Methemoglobin (0.0-3.0) % ABG O2 Capacity (16-24) mL/dl Hgb O2 Saturation (95.0-98.0) % FiO2 % Sodium 151 H (132-148) mmol/L Potassium 3.4 L (3.6-5.0) mmol/L Chloride 119 H (98-107) mmol/L Carbon Dioxide 22 (21-33) mmol/L Anion Gap 14 (10-20) BUN 11 (7-21) mg/dL Creatinine 0.5 L (0.7-1.2) mg/dl Est GFR ( Amer) > 60 Est GFR (Non-Af Amer) > 60 POC Glucose (mg/dL) 85 (65-110) mg/dL Random Glucose 94 (70-110) mg/dL Serum Osmolality (272-300) mosm/kg Calcium 9.0 (8.4-10.5) mg/dL Phosphorus 2.5 (2.5-4.5) mg/dL Magnesium 1.8 (1.7-2.2) mg/dL Total Bilirubin 3.8 H (0.2-1.3) mg/dL AST 63 H (14-36) U/L ALT 32 (7-56) U/L Alkaline Phosphatase 122 (38-126) U/L Ammonia (9-33) umol/L Total Protein 7.5 (5.8-8.3) g/dL Albumin 3.5 (3.0-4.8) g/dL Globulin 4.0 gm/dL Albumin/Globulin Ratio 0.9 L (1.1-1.8) 03/23/18 03/23/18 03/23/18 Range/Units 20:09 20:09 20:09 WBC 7.3 (4.5-11.0) 10^3/ul RBC 3.14 L (3.5-6.1) 10^6/uL Hgb 9.9 L (12.0-16.0) g/dL Hct 29.7 L (36.0-48.0) % MCV 94.6 (80.0-105.0) fl MCH 31.5 (25.0-35.0) pg MCHC 33.3 (31.0-37.0) g/dl RDW 17.3 H (11.5-14.5) % Plt Count 85 L (120.0-450.0) 10^3/uL Manual Plt Count (120-450) K/mm3 MPV 9.0 (7.0-11.0) fl Gran % 81.5 H (50.0-68.0) % Lymph % (Auto) 7.8 L (22.0-35.0) % Pitt % (Auto) 10.3 H (1.0-6.0) % Eos % (Auto) 0.3 L (1.5-5.0) % Baso % (Auto) 0.1 (0.0-3.0) % Gran # 5.93 (1.4-6.5) Lymph # (Auto) 0.6 L (1.2-3.4) Pitt # (Auto) 0.8 H (0.1-0.6) Eos # (Auto) 0.0 (0.0-0.7) Baso # (Auto) 0.01 (0.0-2.0) K/mm3 Neutrophils % (Manual) (50.0-70.0) % Band Neutrophils % (0-2) % Lymphocytes % (Manual) (22.0-35.0) % Monocytes % (Manual) (1.0-6.0) % Platelet Evaluation (NORMAL) PT (9.4-12.5) SECONDS INR APTT (25.1-36.5) Seconds pCO2 (35-45) mm/Hg pO2 (80-100) mm/Hg HCO3 (21-28) mmol/L ABG pH (7.35-7.45) ABG Total CO2 (22-28) mmol.L ABG O2 Saturation (95-98) % ABG O2 Content (15-23) ML/dl ABG Base Excess (-2.0-3.0) mmol/L ABG Hemoglobin (11.7-17.4) g/dL ABG Carboxyhemoglobin (0.5-1.5) % POC ABG HHb (Measured) (0-5) % ABG Methemoglobin (0.0-3.0) % ABG O2 Capacity (16-24) mL/dl Hgb O2 Saturation (95.0-98.0) % FiO2 % Sodium 150 H (132-148) mmol/L Potassium 3.2 L (3.6-5.0) mmol/L Chloride 120 H (98-107) mmol/L Carbon Dioxide 23 (21-33) mmol/L Anion Gap 12 (10-20) BUN 12 (7-21) mg/dL Creatinine 0.5 L (0.7-1.2) mg/dl Est GFR ( Amer) > 60 Est GFR (Non-Af Amer) > 60 POC Glucose (mg/dL) (65-110) mg/dL Random Glucose 88 (70-110) mg/dL Serum Osmolality 305 H (272-300) mosm/kg Calcium 9.0 (8.4-10.5) mg/dL Phosphorus (2.5-4.5) mg/dL Magnesium (1.7-2.2) mg/dL Total Bilirubin (0.2-1.3) mg/dL AST (14-36) U/L ALT (7-56) U/L Alkaline Phosphatase (38-126) U/L Ammonia (9-33) umol/L Total Protein (5.8-8.3) g/dL Albumin (3.0-4.8) g/dL Globulin gm/dL Albumin/Globulin Ratio (1.1-1.8) 03/23/18 03/23/18 03/23/18 Range/Units 20:09 20:09 16:31 WBC (4.5-11.0) 10^3/ul RBC (3.5-6.1) 10^6/uL Hgb (12.0-16.0) g/dL Hct (36.0-48.0) % MCV (80.0-105.0) fl MCH (25.0-35.0) pg MCHC (31.0-37.0) g/dl RDW (11.5-14.5) % Plt Count (120.0-450.0) 10^3/uL Manual Plt Count (120-450) K/mm3 MPV (7.0-11.0) fl Gran % (50.0-68.0) % Lymph % (Auto) (22.0-35.0) % Pitt % (Auto) (1.0-6.0) % Eos % (Auto) (1.5-5.0) % Baso % (Auto) (0.0-3.0) % Gran # (1.4-6.5) Lymph # (Auto) (1.2-3.4) Pitt # (Auto) (0.1-0.6) Eos # (Auto) (0.0-0.7) Baso # (Auto) (0.0-2.0) K/mm3 Neutrophils % (Manual) (50.0-70.0) % Band Neutrophils % (0-2) % Lymphocytes % (Manual) (22.0-35.0) % Monocytes % (Manual) (1.0-6.0) % Platelet Evaluation (NORMAL) PT 16.4 H (9.4-12.5) SECONDS INR 1.43 APTT 28.9 (25.1-36.5) Seconds pCO2 (35-45) mm/Hg pO2 (80-100) mm/Hg HCO3 (21-28) mmol/L ABG pH (7.35-7.45) ABG Total CO2 (22-28) mmol.L ABG O2 Saturation (95-98) % ABG O2 Content (15-23) ML/dl ABG Base Excess (-2.0-3.0) mmol/L ABG Hemoglobin (11.7-17.4) g/dL ABG Carboxyhemoglobin (0.5-1.5) % POC ABG HHb (Measured) (0-5) % ABG Methemoglobin (0.0-3.0) % ABG O2 Capacity (16-24) mL/dl Hgb O2 Saturation (95.0-98.0) % FiO2 % Sodium (132-148) mmol/L Potassium (3.6-5.0) mmol/L Chloride (98-107) mmol/L Carbon Dioxide (21-33) mmol/L Anion Gap (10-20) BUN (7-21) mg/dL Creatinine (0.7-1.2) mg/dl Est GFR ( Amer) Est GFR (Non-Af Amer) POC Glucose (mg/dL) 92 (65-110) mg/dL Random Glucose (70-110) mg/dL Serum Osmolality (272-300) mosm/kg Calcium (8.4-10.5) mg/dL Phosphorus (2.5-4.5) mg/dL Magnesium (1.7-2.2) mg/dL Total Bilirubin (0.2-1.3) mg/dL AST (14-36) U/L ALT (7-56) U/L Alkaline Phosphatase (38-126) U/L Ammonia 39 H (9-33) umol/L Total Protein (5.8-8.3) g/dL Albumin (3.0-4.8) g/dL Globulin gm/dL Albumin/Globulin Ratio (1.1-1.8) 03/23/18 Range/Units 16:29 WBC (4.5-11.0) 10^3/ul RBC (3.5-6.1) 10^6/uL Hgb (12.0-16.0) g/dL Hct (36.0-48.0) % MCV (80.0-105.0) fl MCH (25.0-35.0) pg MCHC (31.0-37.0) g/dl RDW (11.5-14.5) % Plt Count (120.0-450.0) 10^3/uL Manual Plt Count (120-450) K/mm3 MPV (7.0-11.0) fl Gran % (50.0-68.0) % Lymph % (Auto) (22.0-35.0) % Pitt % (Auto) (1.0-6.0) % Eos % (Auto) (1.5-5.0) % Baso % (Auto) (0.0-3.0) % Gran # (1.4-6.5) Lymph # (Auto) (1.2-3.4) Pitt # (Auto) (0.1-0.6) Eos # (Auto) (0.0-0.7) Baso # (Auto) (0.0-2.0) K/mm3 Neutrophils % (Manual) (50.0-70.0) % Band Neutrophils % (0-2) % Lymphocytes % (Manual) (22.0-35.0) % Monocytes % (Manual) (1.0-6.0) % Platelet Evaluation (NORMAL) PT (9.4-12.5) SECONDS INR APTT (25.1-36.5) Seconds pCO2 (35-45) mm/Hg pO2 (80-100) mm/Hg HCO3 (21-28) mmol/L ABG pH (7.35-7.45) ABG Total CO2 (22-28) mmol.L ABG O2 Saturation (95-98) % ABG O2 Content (15-23) ML/dl ABG Base Excess (-2.0-3.0) mmol/L ABG Hemoglobin (11.7-17.4) g/dL ABG Carboxyhemoglobin (0.5-1.5) % POC ABG HHb (Measured) (0-5) % ABG Methemoglobin (0.0-3.0) % ABG O2 Capacity (16-24) mL/dl Hgb O2 Saturation (95.0-98.0) % FiO2 % Sodium (132-148) mmol/L Potassium (3.6-5.0) mmol/L Chloride (98-107) mmol/L Carbon Dioxide (21-33) mmol/L Anion Gap (10-20) BUN (7-21) mg/dL Creatinine (0.7-1.2) mg/dl Est GFR ( Amer) Est GFR (Non-Af Amer) POC Glucose (mg/dL) (65-110) mg/dL Random Glucose (70-110) mg/dL Serum Osmolality 307 H (272-300) mosm/kg Calcium (8.4-10.5) mg/dL Phosphorus (2.5-4.5) mg/dL Magnesium (1.7-2.2) mg/dL Total Bilirubin (0.2-1.3) mg/dL AST (14-36) U/L ALT (7-56) U/L Alkaline Phosphatase (38-126) U/L Ammonia (9-33) umol/L Total Protein (5.8-8.3) g/dL Albumin (3.0-4.8) g/dL Globulin gm/dL Albumin/Globulin Ratio (1.1-1.8) Laboratory Results - last 24 hr 03/23/18 03/23/18 03/23/18 16:29 16:31 20:09 WBC RBC Hgb Hct MCV MCH MCHC RDW Plt Count Manual Plt Count MPV Gran % Lymph % (Auto) Pitt % (Auto) Eos % (Auto) Baso % (Auto) Gran # Lymph # (Auto) Pitt # (Auto) Eos # (Auto) Baso # (Auto) Neutrophils % (Manual) Band Neutrophils % Lymphocytes % (Manual) Monocytes % (Manual) Platelet Evaluation PT 16.4 H INR 1.43 APTT 28.9 pCO2 pO2 HCO3 ABG pH ABG Total CO2 ABG O2 Saturation ABG O2 Content ABG Base Excess ABG Hemoglobin ABG Carboxyhemoglobin POC ABG HHb (Measured) ABG Methemoglobin ABG O2 Capacity Hgb O2 Saturation FiO2 Sodium Potassium Chloride Carbon Dioxide Anion Gap BUN Creatinine Est GFR ( Amer) Est GFR (Non-Af Amer) POC Glucose (mg/dL) 92 Random Glucose Serum Osmolality 307 H Calcium Phosphorus Magnesium Total Bilirubin AST ALT Alkaline Phosphatase Ammonia Total Protein Albumin Globulin Albumin/Globulin Ratio 03/23/18 03/23/18 03/23/18 20:09 20:09 20:09 WBC 7.3 RBC 3.14 L Hgb 9.9 L Hct 29.7 L MCV 94.6 MCH 31.5 MCHC 33.3 RDW 17.3 H Plt Count 85 L Manual Plt Count MPV 9.0 Gran % 81.5 H Lymph % (Auto) 7.8 L Pitt % (Auto) 10.3 H Eos % (Auto) 0.3 L Baso % (Auto) 0.1 Gran # 5.93 Lymph # (Auto) 0.6 L Pitt # (Auto) 0.8 H Eos # (Auto) 0.0 Baso # (Auto) 0.01 Neutrophils % (Manual) Band Neutrophils % Lymphocytes % (Manual) Monocytes % (Manual) Platelet Evaluation PT INR APTT pCO2 pO2 HCO3 ABG pH ABG Total CO2 ABG O2 Saturation ABG O2 Content ABG Base Excess ABG Hemoglobin ABG Carboxyhemoglobin POC ABG HHb (Measured) ABG Methemoglobin ABG O2 Capacity Hgb O2 Saturation FiO2 Sodium 150 H Potassium 3.2 L Chloride 120 H Carbon Dioxide 23 Anion Gap 12 BUN 12 Creatinine 0.5 L Est GFR ( Amer) > 60 Est GFR (Non-Af Amer) > 60 POC Glucose (mg/dL) Random Glucose 88 Serum Osmolality Calcium 9.0 Phosphorus Magnesium Total Bilirubin AST ALT Alkaline Phosphatase Ammonia 39 H Total Protein Albumin Globulin Albumin/Globulin Ratio 03/23/18 03/23/18 03/24/18 20:09 21:49 05:00 WBC 9.4 D RBC 3.16 L Hgb 10.1 L Hct 29.9 L MCV 94.6 MCH 32.0 MCHC 33.8 RDW 17.2 H Plt Count 102 L Manual Plt Count MPV 9.3 Gran % 83.5 H Lymph % (Auto) 4.5 L Pitt % (Auto) 11.6 H Eos % (Auto) 0.3 L Baso % (Auto) 0.1 Gran # 7.86 H Lymph # (Auto) 0.4 L Pitt # (Auto) 1.1 H Eos # (Auto) 0.0 Baso # (Auto) 0.01 Neutrophils % (Manual) 88 H Band Neutrophils % 2 Lymphocytes % (Manual) 8 L Monocytes % (Manual) 2 Platelet Evaluation Low PT INR APTT pCO2 pO2 HCO3 ABG pH ABG Total CO2 ABG O2 Saturation ABG O2 Content ABG Base Excess ABG Hemoglobin ABG Carboxyhemoglobin POC ABG HHb (Measured) ABG Methemoglobin ABG O2 Capacity Hgb O2 Saturation FiO2 Sodium Potassium Chloride Carbon Dioxide Anion Gap BUN Creatinine Est GFR ( Amer) Est GFR (Non-Af Amer) POC Glucose (mg/dL) 85 Random Glucose Serum Osmolality 305 H Calcium Phosphorus Magnesium Total Bilirubin AST ALT Alkaline Phosphatase Ammonia Total Protein Albumin Globulin Albumin/Globulin Ratio 03/24/18 03/24/18 03/24/18 05:00 05:00 05:00 WBC RBC Hgb Hct MCV MCH MCHC RDW Plt Count Manual Plt Count 124 MPV Gran % Lymph % (Auto) Pitt % (Auto) Eos % (Auto) Baso % (Auto) Gran # Lymph # (Auto) Pitt # (Auto) Eos # (Auto) Baso # (Auto) Neutrophils % (Manual) Band Neutrophils % Lymphocytes % (Manual) Monocytes % (Manual) Platelet Evaluation PT 17.6 H INR 1.52 APTT 30.9 pCO2 pO2 HCO3 ABG pH ABG Total CO2 ABG O2 Saturation ABG O2 Content ABG Base Excess ABG Hemoglobin ABG Carboxyhemoglobin POC ABG HHb (Measured) ABG Methemoglobin ABG O2 Capacity Hgb O2 Saturation FiO2 Sodium 151 H Potassium 3.4 L Chloride 119 H Carbon Dioxide 22 Anion Gap 14 BUN 11 Creatinine 0.5 L Est GFR ( Amer) > 60 Est GFR (Non-Af Amer) > 60 POC Glucose (mg/dL) Random Glucose 94 Serum Osmolality Calcium 9.0 Phosphorus 2.5 Magnesium 1.8 Total Bilirubin 3.8 H AST 63 H ALT 32 Alkaline Phosphatase 122 Ammonia Total Protein 7.5 Albumin 3.5 Globulin 4.0 Albumin/Globulin Ratio 0.9 L 03/24/18 03/24/18 03/24/18 05:00 06:00 07:43 WBC RBC Hgb Hct MCV MCH MCHC RDW Plt Count Manual Plt Count MPV Gran % Lymph % (Auto) Pitt % (Auto) Eos % (Auto) Baso % (Auto) Gran # Lymph # (Auto) Pitt # (Auto) Eos # (Auto) Baso # (Auto) Neutrophils % (Manual) Band Neutrophils % Lymphocytes % (Manual) Monocytes % (Manual) Platelet Evaluation PT INR APTT pCO2 27 L pO2 64.0 L HCO3 21.5 ABG pH 7.51 H ABG Total CO2 22.3 ABG O2 Saturation 95.3 ABG O2 Content 17.5 ABG Base Excess -0.3 ABG Hemoglobin 13.4 ABG Carboxyhemoglobin 1.8 H POC ABG HHb (Measured) 4.6 ABG Methemoglobin 0.8 ABG O2 Capacity 18.4 Hgb O2 Saturation 92.7 L FiO2 40.0 Sodium Potassium Chloride Carbon Dioxide Anion Gap BUN Creatinine Est GFR ( Amer) Est GFR (Non-Af Amer) POC Glucose (mg/dL) 82 Random Glucose Serum Osmolality 309 H Calcium Phosphorus Magnesium Total Bilirubin AST ALT Alkaline Phosphatase Ammonia Total Protein Albumin Globulin Albumin/Globulin Ratio 03/24/18 03/24/18 03/24/18 11:19 11:20 11:45 WBC RBC Hgb Hct MCV MCH MCHC RDW Plt Count Manual Plt Count MPV Gran % Lymph % (Auto) Pitt % (Auto) Eos % (Auto) Baso % (Auto) Gran # Lymph # (Auto) Pitt # (Auto) Eos # (Auto) Baso # (Auto) Neutrophils % (Manual) Band Neutrophils % Lymphocytes % (Manual) Monocytes % (Manual) Platelet Evaluation PT INR APTT pCO2 24 L pO2 55.0 L HCO3 19.2 L ABG pH 7.51 H ABG Total CO2 19.9 L ABG O2 Saturation 93.3 L ABG O2 Content 13.4 L ABG Base Excess -2.6 L ABG Hemoglobin 10.6 L ABG Carboxyhemoglobin 2.3 H POC ABG HHb (Measured) 6.5 H ABG Methemoglobin 1.1 ABG O2 Capacity 14.4 L Hgb O2 Saturation 90.0 L FiO2 40.0 Sodium 150 H Potassium 3.2 L Chloride 119 H Carbon Dioxide 21 Anion Gap 13 BUN 11 Creatinine 0.5 L Est GFR ( Amer) > 60 Est GFR (Non-Af Amer) > 60 POC Glucose (mg/dL) 104 Random Glucose 107 Serum Osmolality Calcium 8.8 Phosphorus Magnesium Total Bilirubin AST ALT Alkaline Phosphatase Ammonia Total Protein Albumin Globulin Albumin/Globulin Ratio 03/24/18 11:45 WBC RBC Hgb Hct MCV MCH MCHC RDW Plt Count Manual Plt Count MPV Gran % Lymph % (Auto) Pitt % (Auto) Eos % (Auto) Baso % (Auto) Gran # Lymph # (Auto) Pitt # (Auto) Eos # (Auto) Baso # (Auto) Neutrophils % (Manual) Band Neutrophils % Lymphocytes % (Manual) Monocytes % (Manual) Platelet Evaluation PT INR APTT pCO2 pO2 HCO3 ABG pH ABG Total CO2 ABG O2 Saturation ABG O2 Content ABG Base Excess ABG Hemoglobin ABG Carboxyhemoglobin POC ABG HHb (Measured) ABG Methemoglobin ABG O2 Capacity Hgb O2 Saturation FiO2 Sodium Potassium Chloride Carbon Dioxide Anion Gap BUN Creatinine Est GFR ( Amer) Est GFR (Non-Af Amer) POC Glucose (mg/dL) Random Glucose Serum Osmolality 301 H Calcium Phosphorus Magnesium Total Bilirubin AST ALT Alkaline Phosphatase Ammonia Total Protein Albumin Globulin Albumin/Globulin Ratio EKG/Cardiology Studies: Cardiology / EKG Studies 03/24/18 13:15 EKG [ELECTROCARDIOGRAM] Routine Comment: Reason For Exam: SEIZURES Attending/Attestation - Attestation I have personally seen and examined this patient.: Yes I have fully participated in the care of the patient.: Yes I have reviewed all pertinent clinical information: Yes Notes (Text): 03/24/18 17:[address] Laguna note
--- NOTE | 2018-03-24 08:08 | CP.PCM.PN ---
<Mohamud Freeman - Last Filed: 03/24/18 17:03> Subjective - Date & Time of Evaluation Date of Evaluation: 03/24/18 Time of Evaluation: 07:59 - Subjective Subjective: GI Fellow PGY4 Patient is intubated. No acute events overnight. No signs of bleeding. Unable to complete ROS due to AMS. Objective - Vital Signs/Intake and Output Vital Signs (last 24 hours): Temp Pulse Resp BP Pulse Ox 99.9 F H 80 21 163/90 H 96 03/24/18 05:32 03/24/18 06:00 03/24/18 05:32 03/24/18 05:32 03/24/18 04:00 Intake and Output: 03/24/18 03/24/18 06:59 18:59 Intake Total 1427 Output Total 975 Balance 452 - Medications Medications: Current Medications Famotidine (Pepcid) 20 mg IVP DAILY [facility] Last Admin: 03/23/18 09:40 Dose: 20 mg Hydralazine HCl (Apresoline) 10 mg IVP ONCE PRN PRN Reason: Systolic Blood Pressure Midazolam 100 mg/100ml in NS (Midazolam 100 Mg/100ml In Ns) 100 mg in 100 mls @ 1 mls/hr IV .Q24H PRN; Protocol; 1 MG/HR PRN Reason: Seizure activity Last Admin: 03/24/18 02:17 Dose: 2 mg/hr, 2 mls/hr Levetiracetam (Keppra 500mg Ivpb) 500 mg in 100 mls @ 460 mls/hr IVPB Q12 [facility] Last Admin: 03/23/18 21:59 Dose: 460 mls/hr Propofol (Diprivan) 1,000 mg in 100 mls @ 2 mls/hr IV .Q24H PRN; Protocol; 5 MCG/KG/MIN PRN Reason: TITRATE PER MD ORDER Last Admin: 03/24/18 02:19 Dose: 25 mcg/kg/min, 10.002 mls/hr Sodium Chloride (Hypertonic Saline 3%) 500 mls @ 30 mls/hr IV .[id number] [facility] Last Admin: 03/24/18 02:20 Dose: 30 mls/hr Potassium Chloride (Potassium Chloride 20 Meq/100 Ml) 20 meq in 100 mls @ 50 mls/hr IVPB ONCE ONE Stop: 03/24/18 08:39 Last Admin: 03/24/18 06:53 Dose: 50 mls/hr Nicardipine HCl (Cardene Iv Premix) 20 mg in 200 mls @ 50 mls/hr IV .Q4H PRN; Protocol; 5 MG/HR PRN Reason: TITRATE PER MD ORDER Vitamin A (Vitamin A & D Oint Ud Foilpak) 1 ea TOP Q12 PRN PRN Reason: apply to dry lips - Labs Labs: 03/24/18 05:00 03/24/18 05:00 PT 17.6 SECONDS (9.4-12.5) H 03/24/18 05:00 INR 1.52 03/24/18 05:00 APTT 30.9 Seconds (25.1-36.5) 03/24/18 05:00 - Constitutional Appears: Chronically Ill - Eye Exam Eye Exam: PERRL Additional comments: Corneal reflex intact. - ENT Exam ENT Exam: Mucous Membranes Moist - Respiratory Exam Additional comments: Intubated - Cardiovascular Exam Cardiovascular Exam: REGULAR RHYTHM - GI/Abdominal Exam GI & Abdominal Exam: Soft, Normal Bowel Sounds - Extremities Exam Extremities Exam: Normal Inspection - Neurological Exam Neurological Exam: Altered - Psychiatric Exam Psychiatric exam: Flat Affect - Skin Skin Exam: Dry, Normal Color Assessment and Plan - Assessment and Plan (Free Text) Assessment: 62F with hx variceal bands presenting with AMS, seizures and found to have ICH and some herniation, now intubated. 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 #E. Varices s/p bands 2014 #Colonic AVMs #Pancytopenia #Seizure disorder #Acute ICH PLAN: -Replace PLT per ICU -Recommend dobhoff placed. Due to thrombocytopenia and hx of varices, family needs to informed prior to placement. -Ammonia 39. Recommend lactulose if Dobhoff tube placed. -If BP can tolerate, recommend carvedilol for varices when able to take PO. -PPI IV daily. -Monitor LFTs, but appears stable for now. -Depending on recovery and family wishes, she may need PEG placement. <Saulo,Kovil V - Last Filed: 03/24/18 23:55> Objective - Vital Signs/Intake and Output Vital Signs (last 24 hours): Temp Pulse Resp BP Pulse Ox 99.0 F 80 22 120/59 L 96 03/24/18 10:41 03/24/18 21:33 03/24/18 21:33 03/24/18 21:30 03/24/18 21:33 Intake and Output: 03/24/18 03/25/18 18:59 06:59 Intake Total 1661.5 Output Total 1800 Balance -138.5 - Medications Medications: Current Medications Famotidine (Pepcid) 20 mg IVP DAILY [facility] Last Admin: 03/24/18 10:19 Dose: 20 mg Levetiracetam (Keppra 500mg Ivpb) 500 mg in 100 mls @ 460 mls/hr IVPB Q12 [facility] Last Admin: 03/24/18 21:43 Dose: 460 mls/hr Nicardipine HCl (Cardene Iv Premix) 20 mg in 200 mls @ 50 mls/hr IV .Q4H PRN; Protocol; 5 MG/HR PRN Reason: TITRATE PER MD ORDER Last Admin: 03/24/18 15:58 Dose: 1 mg/hr, 10 mls/hr Dextrose/Sodium Chloride (Dextrose 5%/0.9% Ns 1000 Ml) 1,000 mls @ 100 mls/hr IV .Q10H [facility] Last Admin: 03/24/18 15:31 Dose: 100 mls/hr Insulin Human Regular (Humulin R Low) 0 units SC Q6H [facility] PRN Reason: Protocol Last Admin: 03/24/18 22:20 Dose: Not Given Vitamin A (Vitamin A & D Oint Ud Foilpak) 1 ea TOP Q12 PRN PRN Reason: apply to dry lips Last Admin: 03/24/18 10:19 Dose: 1 ea - Labs Labs: 03/24/18 17:59 03/24/18 19:53 PT 17.6 SECONDS (9.4-12.5) H 03/24/18 05:00 INR 1.52 03/24/18 05:00 APTT 30.9 Seconds (25.1-36.5) 03/24/18 05:00 Attending/Attestation - Attestation I have personally seen and examined this patient.: Yes I have fully participated in the care of the patient.: Yes I have reviewed all pertinent clinical information, including history, physical exam and plan: Yes Notes (Text): This is an addendum to GI progress report dictated by the GI Fellow.The patient was seen and examined earlier. Medical records, lab studies, imagings were reviewed. Last 24 hours events reviewed. Agreed with the above treatment plan as outlined in GI Fellow 's notes with the addition of the following patient remains intubated Patient has OGT Can start feeding status post CVA Mildly elevated ammonia level, cirrhosis history of portal hypertens status post variceal banding in the past, thrombocytopenia, status post platelet transfusion Discussed with the ICU resident 03/24/18 23:53
--- NOTE | 2018-03-24 08:14 | CON ---
Copied To: Edward Patterson MD Attending MD: Edward Patterson MD DATE: 03/22/2018 HOSPITAL VISIT AND INTENSIVE CARE UNIT CONSULT This is [facility] Consult on ICU. For Dr. Medellin CHIEF COMPLAINT: Cerebral bleed and thrombocytopenia. HISTORY OF PRESENT ILLNESS: The patient is a 62-year-old female seen lying, sedated, unresponsive in the Intensive Care Unit intubated with her at the bedside with a history of having had a seizure type tonic-clonic episode last night after feeling strange while using her iPad. With this she fell to the ground, scream loudly and was convulsing then became unconscious and unresponsive with her eyes having rolled back. With this, the patient was then treated in the emergency room with a CAT scan of the head being done showing hemorrhage in the medial left occipital lobe measuring 2.8 x 2.8 cm associated edema necrosis ____ mass affect on the atrium of the ventricles anterolaterally occasional; however, it is a typical hypertensive hemorrhage consideration for a typical hypertensive hemorrhage underlying vascular lesion hemorrhage, tumor was considered less likely. With this, the patient is now known to have significant thrombocytopenia with 2 bags of single-donor freeze platelets having been transfused with the platelets now being monitored with additional platelets in fresh frozen plasma to be administered. The patient had a Neurosurgery Consult which the initial reports shows that there was recommendation against any surgical intervention. She was loaded with Keppra as per Dr. Nicholas, Neurology who saw the patient yesterday with the patient initially given IV steroids one dose, which had since been not renewed with 3% saline instead now to be given after conversation with Dr. Nicholas and Dynam[employer] Repaire[employer] Dr. Byers. The patient does have history of esophageal varices for which she had significant GI bleed with a hemoglobin of 5.5 in 07/2013 also with cirrhotic changes to her liver with prophylaxis with Protonix being given for gastrointestinal system. The patient does have a significant history of alcohol abuse, having had a fall in 09/2017 with a fracture of her left maxilla. The results also having a front tooth being knocked out at that time with problem continued alcohol abuse issues as per history. The is at the bedside with other history ____from the computer records and from nursing and from Dr. Bass her primary doctor. ALLERGIES: TO PENICILLIN. MEDICATIONS: Her present medications include Ativan, Keppra, IV fluids, propofol, Protonix, and midazolam. She also now be getting 3% hypertonic saline. PAST MEDICAL HISTORY: The past medical history for this patient that is as above listed including cirrhosis of the liver, esophageal varices with banding in 07/2013 for hemoglobin of 5.[address] Everett, severe thrombocytopenia, spinal stenosis, DJD, hip surgery, fractured maxilla with front tooth enucleation in 09/2017 status post fall, osteoporosis, iron deficiency anemia. FAMILY HISTORY AND SOCIAL HISTORY: The patient reportedly quit alcohol use approximately 2-3 months ago, smokes half a pack of cigarettes a day for many years. Lives with her , unemployed. REVIEW OF SYSTEMS: The 12-point review of systems is compromised as the patient is now intubated, but otherwise negative except for above items listed in the history of present illness. OBJECTIVE PHYSICAL EXAMINATION: VITAL SIGNS: Temperature is 98.1, pulse 70, respirations on vent, blood pressure 160/84, pulse oxygen saturation is 100% on a FiO2 of 50%. HEENT: The patient is unresponsive to verbal Edward Patterson MD
--- NOTE | 2018-03-24 08:14 | CON ---
Copied To: Andrés Holman MD Attending MD: Andrés Holman MD DATE: 03/22/2018 HISTORY OF PRESENT ILLNESS: This is a rather medically compromised 62-year-old lady with a known alcoholic history who presented with a significant change in mental status, was brought to the [facility] ER, found having a left parietal occipital intracranial hemorrhage. I reviewed the CAT scan immediately after it was done while the patient was in the ER, was relatively moderate but unusual bleed emanating either from or around the left occipital horn. There was no shift. There was only minimal mass effect. The patient was admitted to the ICU. Of note is the patient presented with severe thrombocytopenia as well as coagulopathy. Today, she was noted to have an increase in the size of her bleed. She is intubated and sedated in the ICU. PAST MEDICAL HISTORY: Reviewed in the EMR, most salient as above. PHYSICAL EXAMINATION: The patient does open her eyes to voice. She does track properly. She is moving all four extremities spontaneously. She does not follow commands. She withdraws appropriately to noxious bilaterally. DIAGNOSTIC DATA: The new CT does show a moderate-sized hemorrhage occupying the medial left parietal-occipital region. There still is no midline shift. There is moderate mass effect. DATA: Today's platelet count is 45,000. Her INR is 1.4. IMPRESSION AND PLAN: At this point in time, she is certainly admitted in as a normal patient without adequate surgical extirpation; particularly in her with this degree of thrombocytopenia and coagulopathy, there is nothing to offer her surgically. I would certainly advise as he is attempting to correct her thrombocytopenia, which may not possible as well as the coagulopathy has discussions with the intensive care staff. She is said to receive more platelet transfusion as well as FFP. I would advocate probably obtaining a new CT in the morning, but once again I stress that, there is obviously nothing to offer surgically with continued thrombocytopenia and coagulopathy in any case. Andrés Holman MD
[2018-03-24] MEDS: Nicardipine 20 MG/200 ML 20 MG/200 ML BAG IV PRN ×2 (08:19→15:58)
--- NOTE | 2018-03-24 08:30 | HP ---
Copied To: Zane Bass MD Attending MD: Zane Bass MD ADMITTING HISTORY AND PHYSICAL HISTORY OF PRESENT ILLNESS: The patient is a 62-year-old female, who was admitted to the Intensive Care Unit with an intracerebral bleed. She is known to have a past medical history positive for gastritis, esophageal varices, alcoholic cirrhosis of the liver, thrombocytopenia. She has a history of EtOH abuse in the past. However, has been clean for the past several years. She is also status post hip and knee surgery. According to the patient's , she was sitting in the living room at home. She started rotating her iPad and not responding to him when he asked what was wrong, if there was anything broken about her iPad. She removed the protective cover from iPad, still continued to rotate it and then screamed with pain and started to seize. So the squad was called. She was brought to the emergency room. Diagnosis of intracranial bleed was made and the patient was admitted to the Intensive Care Unit. PAST MEDICAL HISTORY: She has a past medical history as mentioned above. REVIEW OF SYSTEMS: Otherwise unremarkable. PHYSICAL EXAMINATION: GENERAL: When seen in the ICU, the patient is intubated. She is sedated. HEENT: Her pupils are equal bilaterally. LUNGS: Clear anteriorly. HEART: Regular. ABDOMEN: Soft and nontender. EXTREMITIES: Free of cyanosis, clubbing or edema. NEUROLOGICAL: The patient is sedated. LABORATORY DATA: CAT scan of the head shows a hemorrhage within the medial left occipital lobe measuring approximately 2.8 x 2.8 cm with associated edema. There is some bleeding into the ventricle noted. It is seated in the report that the hemorrhages atypical for hypertensive hemorrhage. Hemorrhagic tumor is less likely. Her white blood cell count is 6.2, hemoglobin and hematocrit are 11.2 and 32.4, platelet count is depressed at 46. Sodium is 142, potassium of 4.2, blood urea nitrogen is 5, creatinine 0.5. Glucose is 153. Her blood pressure is 156/78, heart rate is 65. IMPRESSION: The case was discussed with the neurosurgeon, Dr. Holman. Dr. Medellin is asked to consult concerning the thrombocytopenia. The patient will be transfused platelets. She will also receive fresh frozen plasma because of elevated PT/INR of 1.4. We will continue to follow the patient closely. The case was discussed with the patient's . He is informed of her grave situation. Zane Bass MD PANCHO
[2018-03-24 08:42] LABS: BAND 2 % (0-2); LYMPHOCYTE 8 % (22.0-35.0); MONOCYTE 2 % (1.0-6.0); NEUTROPHIL 88 % (50.0-70.0); PLATELET ESTIMATE LOW (NORMAL)
--- NOTE | 2018-03-24 08:46 | PN ---
Copied To: Champ Laguna MD Attending MD: Champ Laguna MD DATE: 03/24/2018 SUBJECTIVE: The patient is seen and examined at bedside. She is on pressure support 15/5/40%. On that setting, her rapid shallow breathing index is 55. She is pulling more than 400 mL of tidal volume and her respiratory rate 23. She appears to be comfortable. PHYSICAL EXAMINATION: VITAL SIGNS: Heart rate 81, oxygen saturation 95%, respiratory rate 23-26, end-tidal CO2 on the monitor 24, temperature 99.3, blood pressure 170/87. The patient is on propofol 25 mcg/kg per minute and Versed 2 mg per hour. EEG is pending to start tapering it down and assess mental status, provided, there is no seizure activity. The patient is on 3% sodium chloride. ENT: Head and neck atraumatic. LUNGS: Clear to auscultation bilaterally. HEART: Regular rate and rhythm. S1 and S2 normal. ABDOMEN: Soft, nontender and nondistended. MUSCULOSKELETAL: Trace bilateral pedal and ankle edema. NEUROLOGIC: The patient is sedated. No spontaneous movement observed. Both pupils are constricted, the right about 1 mm, not responsive to light and the left one about 2 mm, also not responding to light. SKIN: Moist. PSYCHIATRIC: The patient is sedated. LABORATORY DATA: Sodium 151, potassium 3.4 (supplemented), chloride 119, carbon dioxide 22, BUN 11, creatinine 0.5, glucose 94, AST 63, ALT 32, total bilirubin 3.8 up from 2.8, albumin 3.5. INR 1.52. PT is 17.6. PTT is 30.9. Hepatitis profile is negative. ABG for today is pending. MEDICATIONS: Pepcid 20 mg daily, Keppra 500 mg IV every 12, Cardene drip, potassium supplementation, propofol, 3% sodium chloride, 30 mL/hour Versed drip, vitamin A and D. ASSESSMENT AND PLAN: This is a 62-year-old lady who presented with expanding intracranial hematoma in the medial occipital lobe with subsequent seizures and altered mental status. The patient was intubated for airway protection. We are controlling her blood pressure with a goal 110-140 (more than 48 hours after presentation). EEG will be done today. If no seizure activity identified, sedative drips will be weaned off with subsequent reevaluation of mental status. Neurosurgery was contacted in the very beginning of hospital course, we will request followup as 03/22 CAT scan showed some progression of the bleeding. I agree with 3% sodium chloride maintaining sodium between 150 and 160. I agree with Keppra on top of sedative drips at the present time. We will maintain pH between 7.35 and 7.45 avoiding under and over ventilation. We will maintain strict euvolemia, euglycemia, normothermia and oxygen saturation more than 90%. Head of bed elevated more than 35 degrees. Oral hygiene. Protective lung ventilation strategy. Avoiding PEEP higher then 15 cmH20. Mechanical deep venous thrombosis prophylaxis. GI prophylaxis. Addendum: Patient's ph 7.51 on PST 02/12. Unfortunately further decrease PS leads to almost immediate increase in RR. As I would avoid increase in sedation to assess her mental status-->discussed with Dr. Nicholas (neuro)-->will tolerate ph 7.51 at present time. EEG-no seizures-->will stop BZD/BZRA and cont EEG/ neuro follow up. CTH stable bleed-no progression. Neuro and neurosurgery follow up appreciated. ccm time 40 min Champ Laguna MD MTDPankaj
--- NOTE | 2018-03-24 09:17 | CP.PCM.PN ---
Subjective - Date & Time of Evaluation Date of Evaluation: 03/24/18 Time of Evaluation: 09:13 - Subjective Subjective: Heme/Onc Progress Note for Dr. Medellin -- Nate Russo DO PGY2 Patient seen and examined at bedside. Patient is currently intubated and sedated s/p status epilepticus 2/2 left occipital lobe hemorrhage. Cardene gtt restarted due to elevated BP. ROS unobtainable due to patient's current mental status. Objective - Vital Signs/Intake and Output Vital Signs (last 24 hours): Temp Pulse Resp BP Pulse Ox 99.9 F H 80 21 170/81 H 96 03/24/18 05:32 03/24/18 08:20 03/24/18 05:32 03/24/18 08:20 03/24/18 04:00 Intake and Output: 03/24/18 03/24/18 06:59 18:59 Intake Total 1427 Output Total 975 Balance 452 - Medications Medications: Current Medications Famotidine (Pepcid) 20 mg IVP DAILY [facility] Last Admin: 03/23/18 09:40 Dose: 20 mg Midazolam 100 mg/100ml in NS (Midazolam 100 Mg/100ml In Ns) 100 mg in 100 mls @ 1 mls/hr IV .Q24H PRN; Protocol; 1 MG/HR PRN Reason: Seizure activity Last Admin: 03/24/18 02:17 Dose: 2 mg/hr, 2 mls/hr Levetiracetam (Keppra 500mg Ivpb) 500 mg in 100 mls @ 460 mls/hr IVPB Q12 [facility] Last Admin: 03/23/18 21:59 Dose: 460 mls/hr Propofol (Diprivan) 1,000 mg in 100 mls @ 2 mls/hr IV .Q24H PRN; Protocol; 5 MCG/KG/MIN PRN Reason: TITRATE PER MD ORDER Last Admin: 03/24/18 02:19 Dose: 25 mcg/kg/min, 10.002 mls/hr Sodium Chloride (Hypertonic Saline 3%) 500 mls @ 30 mls/hr IV .[id number] [facility] Last Admin: 03/24/18 02:20 Dose: 30 mls/hr Nicardipine HCl (Cardene Iv Premix) 20 mg in 200 mls @ 50 mls/hr IV .Q4H PRN; Protocol; 5 MG/HR PRN Reason: TITRATE PER MD ORDER Last Admin: 03/24/18 08:19 Dose: 5 mg/hr, 50 mls/hr Vitamin A (Vitamin A & D Oint Ud Foilpak) 1 ea TOP Q12 PRN PRN Reason: apply to dry lips - Labs Labs: 03/24/18 05:00 03/24/18 05:00 PT 17.6 SECONDS (9.4-12.5) H 03/24/18 05:00 INR 1.52 03/24/18 05:00 APTT 30.9 Seconds (25.1-36.5) 03/24/18 05:00 - Constitutional Appears: Other (intubated) - Head Exam Head Exam: NORMAL INSPECTION - Eye Exam Eye Exam: Normal appearance Pupil Exam: NORMAL ACCOMODATION - ENT Exam ENT Exam: Mucous Membranes Moist Additional comments: ET tube in place - Neck Exam Neck Exam: Normal Inspection - Respiratory Exam Respiratory Exam: Clear to Ausculation Bilateral (mechanical breath sounds). absent: Rales, Rhonchi, Wheezes - Cardiovascular Exam Cardiovascular Exam: RRR, +S1, +S2. absent: Gallop, Rubs, Murmur - GI/Abdominal Exam GI & Abdominal Exam: Soft. absent: Distended, Guarding, Tenderness, Rebound - Extremities Exam Extremities Exam: Normal Inspection - Neurological Exam Neurological Exam: absent: Alert, Awake, Oriented x3 Additional comments: intubated - Skin Skin Exam: Dry, Intact, Normal Color, Warm Assessment and Plan - Assessment and Plan (Free Text) Assessment: 62 yo F with PMH of EtOH abuse, Cirrhosis, esophageal varices, thrombocytopenia , spinal stenosis, arthritis, and degenerative joint disease admitted to ICU for status epilepticus 2/ 2.8x2.8cm left occipital lobe hemorrage found on CT with subsequent expansion on follow up CT (5.3x3.3cm). Repeat CT ordered for today. Heme/onc consulted due to thrombocytopenia, which appears to be chronic on review of previous hospital visits. Plan: - Maintain platelets > 100,000 in setting of ICH - Transfused 9 units of platelets and 4 FFP overall - Manual platelet count today 124 - F/u anti-platelet antibodies, BECKY, flow cytometry - Further management per Neuro, ICU, and primary Case discussed with attending. Nate Russo DO PGY2
--- NOTE | 2018-03-24 09:35 | CP.PCM.PN ---
Subjective - Date & Time of Evaluation Date of Evaluation: 03/24/18 Time of Evaluation: 10:45 - Subjective Subjective: PGY-1 Jaimie Butler D.O. Neurology progress note for Dr. Nicholas's service: Patient is seen and examined this morning. No family is at bedside. No seizure activity reported. Patient is currently intubated and sedated with propofol and Versed. She does not respond to sternal rub or painful stimuli. Pupils are reactive. Unable to obtain ROS due to sedation. Patient is re-examined in the afternoon. She is currently being monitor with continuous video-monitored EEG. No seizure activity is observed. There is overall slowing of brain waves (L>R). Objective - Vital Signs/Intake and Output Vital Signs (last 24 hours): Temp Pulse Resp BP Pulse Ox 99.9 F H 80 21 170/81 H 96 03/24/18 05:32 03/24/18 08:20 03/24/18 05:32 03/24/18 08:20 03/24/18 04:00 Intake and Output: 03/24/18 03/24/18 06:59 18:59 Intake Total 1427 Output Total 975 Balance 452 - Medications Medications: Current Medications Famotidine (Pepcid) 20 mg IVP DAILY [facility] Last Admin: 03/23/18 09:40 Dose: 20 mg Midazolam 100 mg/100ml in NS (Midazolam 100 Mg/100ml In Ns) 100 mg in 100 mls @ 1 mls/hr IV .Q24H PRN; Protocol; 1 MG/HR PRN Reason: Seizure activity Last Admin: 03/24/18 02:17 Dose: 2 mg/hr, 2 mls/hr Levetiracetam (Keppra 500mg Ivpb) 500 mg in 100 mls @ 460 mls/hr IVPB Q12 [facility] Last Admin: 03/23/18 21:59 Dose: 460 mls/hr Propofol (Diprivan) 1,000 mg in 100 mls @ 2 mls/hr IV .Q24H PRN; Protocol; 5 MCG/KG/MIN PRN Reason: TITRATE PER MD ORDER Last Admin: 03/24/18 02:19 Dose: 25 mcg/kg/min, 10.002 mls/hr Sodium Chloride (Hypertonic Saline 3%) 500 mls @ 30 mls/hr IV .[id number] COUNT INCLUDES [facility] Last Admin: 03/24/18 02:20 Dose: 30 mls/hr Nicardipine HCl (Cardene Iv Premix) 20 mg in 200 mls @ 50 mls/hr IV .Q4H PRN; Protocol; 5 MG/HR PRN Reason: TITRATE PER MD ORDER Last Admin: 03/24/18 08:19 Dose: 5 mg/hr, 50 mls/hr Vitamin A (Vitamin A & D Oint Ud Foilpak) 1 ea TOP Q12 PRN PRN Reason: apply to dry lips - Labs Labs: 03/24/18 05:00 03/24/18 05:00 PT 17.6 SECONDS (9.4-12.5) H 03/24/18 05:00 INR 1.52 03/24/18 05:00 APTT 30.9 Seconds (25.1-36.5) 03/24/18 05:00 - Constitutional Appears: No Acute Distress - Head Exam Head Exam: ATRAUMATIC, NORMAL INSPECTION, NORMOCEPHALIC - Eye Exam Eye Exam: PERRL - ENT Exam ENT Exam: Mucous Membranes Moist - Neck Exam Additional comments: endotracheal tube and OG in place - Respiratory Exam Additional comments: on vent - Cardiovascular Exam Cardiovascular Exam: REGULAR RHYTHM, +S1, +S2 - GI/Abdominal Exam GI & Abdominal Exam: Soft - Rectal Exam Rectal Exam: Deferred - Extremities Exam Extremities Exam: Normal Capillary Refill, Normal Inspection. absent: Pedal Edema - Neurological Exam Additional comments: sedated - Skin Skin Exam: Dry, Normal Color, Warm Assessment and Plan - Assessment and Plan (Free Text) Assessment: Patient is a 62 yo female with a history of alcohol abuse who presented after witnessed seizure activity at home. CT head revealed acute L occipital hemorrhage, and repeat CT shows an increase in size with increased edema and herniation. Patient is currently intubated, sedated, and being managed in the ICU. No intervention by neurosurgery indicated at this time. Size of hemorrhage currently appears stable. Patient was given Keppra load of 1500 mg and is now receiving 500 mg BID. She is being monitored by continuous video EEG. Will attempt to wean off sedation and continue to monitor. Plan: Seizure, new onset- 2/2 intracranial hemorrhage with possible underlying mass +/ - low platelets +/- alcohol withdrawal - CT head on admission 9/1: Hemorrhage is noted within the medial left occipital lobe measuring approximately 2.8 x 2.8 cm with associated edema/necrosis. This finding exerts mass effect on the atrium of the ventricles anterior laterally. Location of this hemorrhage is atypical for hypertensive hemorrhage. Considerations include atypical hypertensive hemorrhage, underlying vascular lesion, hemorrhagic tumor is considered less likely. - Repeat CT head 03/22: Within the left occipital parietal lobe there is increasing region of hemorrhage measuring approximately 5.3 x 3.3 cm, previously approximately 2.2 x 2.2 cm. Interval development of intraventricular extension of hemorrhage involving the lateral and 3rd ventricles. Increasing dilatation of the left lateral ventricle suggests a degree of CSF flow obstruction. Spleen and left occipital parietal low-attenuation consistent with edema/infarction. - Repeat CT 03/24: Stable appearance of left parietal hemorrhage. - CTA head and neck: Slightly prominent vessels in the left occipital lobe around the left occipital parenchymal hemorrhage without definite CTA evidence of AVM or other vascular anomaly. No evidence of aneurysm. No evidence of major vascular occlusion or critical stenosis. - F/u MRI brain - Continuous EEG: overall slowing (L>R), no epileptiform waves seen - Seizure precautions - Maintain SBP 110s-140s- currently on Cardene drip - HOB elevated >30 degrees - Discontinue 3% saline - Keppra 500 mg IV BID - Attempt to wean off sedation and monitor for seizure activity - Neurosurgery consulted (Dr. Post)- no intervention at this time, no role for steroids Alcohol use disorder- h/o esophageal varices with banding, current liver pathology, potentially hemorrhage is 2/2 brain mets - Management per primary team and GI - BAL <10 - Transaminitis improving (AST 63, ALT 32) - Abd u/s: Hepatomegaly. Splenomegaly. Echogenic liver may be seen in setting of hepatic parenchymal disease or fatty infiltration. Nodular hepatic contour. Correlate clinically for cirrhosis. Small ascites. - Hepatitis panel negative - B12, folate wnl - Elevated ammonia (39) Thrombocytopenia, chronic (as low as 38 in 06/2015)- s/p 10 units platelets, 2 units FFP (46->102) - Management as per primary team and hem/onc- rec maintain >100 Case discussed with attending, Dr. Nicholas.
--- NOTE | 2018-03-24 09:56 | PN ---
Copied To: Zane Bass MD Attending MD: Zane Bass MD DATE: 03/23/2018 SUBJECTIVE: The patient is a 62-year-old female who suffered an intracranial bleed while at home. She is known to have a history of gastritis, esophageal varices, cirrhosis of the liver, thrombocytopenia and history of EtOH abuse, but has been dry for the past several years. She is also status post hip and knee replacement. She is intubated in the Intensive Care Unit. She is sedated. She was found to have O+ type blood. Today, she has received 6 units of platelets and her platelet count came up from 46 up to 78 this morning. She received 2 units of fresh frozen plasma, however, PT/INR actually moved from 1.4-1.55. Blood cultures have been negative x2. Her blood pressure is 141/79, heart rate is 73. White blood cell count is 7.9, hemoglobin and hematocrit is 9.9 and 29, platelet count is 78. Sodium is 149, potassium 3.3, blood urea nitrogen is 12, creatinine 0.4. We are continuing to follow the patient closely. A repeat CAT scan is scheduled, especially, in that her cerebral bleed was measuring 2.5 x 2.5 cm on admission and actually had increased in size yesterday to approximately 5-6 cm in diameter. Zane Bass MD
[2018-03-24] MEDS: Vitamins A & D Oint UD Foilpak TOP PRN (10:19)
[2018-03-24] MEDS: levETIRAcetam 500mg IVPB 500 MG/100 ML BAG IVPB SCH ×2 (10:19→21:43)
--- NOTE | 2018-03-24 11:29 | CT ---
Date of service: 03/24/2018 PROCEDURE: CT HEAD WITHOUT CONTRAST. HISTORY: ICH COMPARISON: 03/23/2018 TECHNIQUE: Axial computed tomography images were obtained through the head/brain without intravenous contrast. Radiation dose: Total exam DLP = 777 mGy-cm. This CT exam was performed using one or more of the following dose reduction techniques: Automated exposure control, adjustment of the mA and/or kV according to patient size, and/or use of iterative reconstruction technique. FINDINGS: HEMORRHAGE: There is no significant change in the appearance of the left parietal hemorrhage. This measures 49 mm anterior to posterior by 24 mm height by 29 mm wide. There is a moderate amount of surrounding edema. BRAIN: As above VENTRICLES: There is a small amount of blood in the occipital horns. This is unchanged. CALVARIUM: Unremarkable. PARANASAL SINUSES: Unremarkable as visualized. No significant inflammatory changes. MASTOID AIR CELLS: Unremarkable as visualized. No inflammatory changes. OTHER FINDINGS: None. IMPRESSION: Stable appearance of left parietal hemorrhage.
[2018-03-24 11:35] LABS: ARTERIAL BLOOD GAS HCO3 19.2 mmol/L (21-28); ARTERIAL BLOOD GAS HEMOGLOBIN 10.6 g/dL (11.7-17.4); ARTERIAL BLOOD GAS O2 CAPACITY 14.4 mL/dl (16-24); ARTERIAL BLOOD GAS O2 CONTENT 13.4 ML/dl (15-23); ARTERIAL BLOOD GAS O2 SAT 93.3 % (95-98); ARTERIAL BLOOD GAS PCO2 24 mm/Hg (35-45); ARTERIAL BLOOD GAS PH 7.51 (7.35-7.45); ARTERIAL BLOOD GAS TCO2 19.9 mmol.L (22-28)
--- NOTE | 2018-03-24 11:55 | CP.PCM.PN ---
Subjective - Date & Time of Evaluation Date of Evaluation: 03/24/18 Time of Evaluation: 11:55 - Subjective Subjective: stable appearance of ICH no surgical indication at this time Objective - Vital Signs/Intake and Output Vital Signs (last 24 hours): Temp Pulse Resp BP Pulse Ox 99.0 F 83 21 124/61 93 L 03/24/18 10:41 03/24/18 10:30 03/24/18 05:32 03/24/18 10:30 03/24/18 10:30 Intake and Output: 03/24/18 03/24/18 06:59 18:59 Intake Total 1427 226 Output Total 975 200 Balance 452 26 - Medications Medications: Current Medications Famotidine (Pepcid) 20 mg IVP DAILY [facility] Last Admin: 03/24/18 10:19 Dose: 20 mg Midazolam 100 mg/100ml in NS (Midazolam 100 Mg/100ml In Ns) 100 mg in 100 mls @ 1 mls/hr IV .Q24H PRN; Protocol; 1 MG/HR PRN Reason: Seizure activity Last Admin: 03/24/18 02:17 Dose: 2 mg/hr, 2 mls/hr Levetiracetam (Keppra 500mg Ivpb) 500 mg in 100 mls @ 460 mls/hr IVPB Q12 [facility] Last Admin: 03/24/18 10:19 Dose: 460 mls/hr Propofol (Diprivan) 1,000 mg in 100 mls @ 2 mls/hr IV .Q24H PRN; Protocol; 5 MCG/KG/MIN PRN Reason: TITRATE PER MD ORDER Last Admin: 03/24/18 11:28 Dose: 25 mcg/kg/min, 10.002 mls/hr Sodium Chloride (Hypertonic Saline 3%) 500 mls @ 30 mls/hr IV .[id number] [facility] Last Admin: 03/24/18 02:20 Dose: 30 mls/hr Nicardipine HCl (Cardene Iv Premix) 20 mg in 200 mls @ 50 mls/hr IV .Q4H PRN; Protocol; 5 MG/HR PRN Reason: TITRATE PER MD ORDER Last Admin: 03/24/18 08:19 Dose: 5 mg/hr, 50 mls/hr Vitamin A (Vitamin A & D Oint Ud Foilpak) 1 ea TOP Q12 PRN PRN Reason: apply to dry lips Last Admin: 03/24/18 10:19 Dose: 1 ea - Labs Labs: 03/24/18 05:00 03/24/18 05:00 PT 17.6 SECONDS (9.4-12.5) H 03/24/18 05:00 INR 1.52 03/24/18 05:00 APTT 30.9 Seconds (25.1-36.5) 03/24/18 05:00
[2018-03-24 11:59] LABS: BLOOD UREA NITROGEN 11 mg/dL (7-21); CALCIUM 8.8 mg/dL (8.4-10.5); GFR NON-AFRICAN AMERICAN > 60
--- NOTE | 2018-03-24 13:25 | RAD ---
Date of service: 03/23/2018 HISTORY: OG tube placement COMPARISON: 03/23/2018 at 8:33 a.m. FINDINGS: LUNGS: No infiltrate. PLEURA: Small to moderate right pleural effusion. No left pleural effusion. No pneumothorax. CARDIOVASCULAR: Normal heart size. Orogastric tube extends to left mid abdomen. ET tube and right triple lumen central venous catheter are unchanged. OSSEOUS STRUCTURES: No significant abnormalities. VISUALIZED UPPER ABDOMEN: Normal. OTHER FINDINGS: None. IMPRESSION: Orogastric tube extends to the left mid abdomen. Small to moderate right pleural effusion. No infiltrate.
--- NOTE | 2018-03-24 13:26 | RAD ---
Date of service: 03/24/2018 HISTORY: intubated COMPARISON: 03/23/2018 at 5:05 p.m. FINDINGS: LUNGS: Ill-defined opacity mid and lower hemithorax bilaterally. This may reflect layering dependent pleural fluid or dilip infiltrate. Followup advised. PLEURA: Small bilateral pleural effusion. CARDIOVASCULAR: Normal heart size. ET tube, orogastric tube and triple-lumen central venous catheter are all unchanged. OSSEOUS STRUCTURES: No significant abnormalities. VISUALIZED UPPER ABDOMEN: Normal. OTHER FINDINGS: None. IMPRESSION: Small bilateral pleural effusion. Opacity mid and lower lung bilaterally possibly infiltrate versus layering pleural effusion.
[2018-03-24] MEDS ORDERED: Dextrose 5%/0.45% NS 1,000 ML IV SCH (14:00)
[2018-03-24] MEDS: Insulin Reg-LOW-Coverage SC SCH ×2 (15:30→22:20)
[2018-03-24] MEDS: Dextrose 5%/0.9% NS 1,000 ML IV SCH (15:31)
--- NOTE | 2018-03-24 15:34 | PN ---
Copied To: Omega Decker MD Attending MD: Omega Decker MD DATE: 03/24/2018 SUBJECTIVE: The patient is currently seen in CCU bed 3. She remains intubated on a Cardene drip. She is off hypertonic saline. She is status post an acute left parietal bleed. MEDICATIONS: Medication list reviewed. The patient is currently on a Cardene drip titrated to systolic blood pressure 120-140, IV fluids have been discontinued, sliding scale insulin, Keppra, Pepcid, potassium chloride replacement therapy and vitamin A and D foil pack p.r.n. OBJECTIVE: INTAKE/OUTPUT: Intake is 3953, output is 2075. She is ahead 1878 mL of fluid. VITAL SIGNS: Blood pressure is currently 124/61. Earlier this morning, she was at 170/81, hence Cardene drip was started. Pulse is 83, respiratory rate is 21 with a temperature of 99. HEENT: The patient's eyes are closed. The patient is intubated. NECK: No neck vein distention. CHEST: Clear to auscultation and percussion. No rales, rhonchi or wheezing. CARDIOVASCULAR: Shows a regular rate and rhythm without audible murmurs, rubs or gallops. ABDOMEN: Soft. Bowel sounds are normal. No rebound, guarding or masses. EXTREMITIES: Show no lower extremity cyanosis, clubbing or edema. NEURO: Difficult to assess. GENITOURINARY: The patient has an indwelling Donahue catheter. LABORATORY DATA AND IMAGING: Repeat head CT scan done today shows a stable left parenchymal bleed measuring 49 mm x 24 mm x 29 mm. This appears to be stable and unchanged. She has peripheral surrounding edema. Abdominal ultrasound done 48 hours ago showed hepatomegaly, splenomegaly, echogenic liver consistent with fatty infiltration and/or cirrhosis. Small amount of ascites. Chest x-ray done earlier today showed small bilateral pleural effusions. CBC: White blood cell count 9.4, hemoglobin 10.1. Platelet count is 102,000. Coags: PT of 17.6 with an INR of 1.52 with a PTT of 30.9. Blood gas today showed a pH of 7.51, a pO2 of 55 with a pCO2 of 24. Chemistries: Sodium is 150. The patient recently was on hypertonic saline for neurosurgical purposes. Potassium level was 3.2, supplemented with two K riders. BUN and creatinine remain normal at 11 and 0.5. Glucose is 107. Calcium level is 8.8. Serum osmolality is 301 down from 309. Bilirubin is mildly elevated at 3.8. Calcium and phosphorus levels are normal. Ammonia level was mildly elevated yesterday at 39. Liver enzymes show mild elevation of her AST and again elevated bilirubin. Albumin level is 3.5. Urines from admission were unremarkable. Toxicology screen was negative. Serologies: Hepatitis B, HIV and mycoplasma were negative. Blood bank: The patient is status post 4 units of fresh frozen plasma, 5 units of leukocyte reduced pheresis platelets and 4 units of irradiated leukocytes reduced platelets for a total of 9 units of platelets. Microbiology: Blood cultures are negative at 48 hours. Urine cultures are negative. ASSESSMENT: 1. Acute intracerebral bleed with seizures. The patient remains on Keppra. She is on a video EEG. She had been on hypertonic saline. She has been on a ventilator. She is in a medically-induced coma. The patient had been evaluated by Neurosurgery and no neurosurgical procedures are planned at this point in time. 2. History of alcoholic liver disease, cirrhosis, varices. Positive splenomegaly. According to chart, the patient has not been drinking in recent times. 3. History of anemia with thrombocytopenia. Platelet count has been supplemented in light of her bleed with 9 units of platelets. Her hemoglobin remained stable in the 10-11 range. 4. Hypernatremia. This is in part secondary to a receiving hypertonic saline to decrease cerebral edema by increasing her serum osmolality. 5. Mild hypokalemia. This is being supplemented. Magnesium levels are normal. Perhaps secondary to diuresis from increased sodium administration with hypertonic saline and a kaliuresis. PLAN: 1. Close followup in the ICU/CCU. The patient is being monitored closely by Neurosurgery. 2. In light of her transient elevations of blood pressure, agree with the use of IV Cardene to keep systolics in the 120-140 range. 3. Supplement potassium aggressively. Monitor electrolytes and renal parameters on a daily basis. 4. Continue to monitor imaging studies to make certain that she is not expanding the size of her intracerebral bleed. 5. Over time attempt to withdraw sedation. 6. Continue to monitor the patient closely for seizure activity. 7. The patient is essentially stable from a renal standpoint. We will continue to monitor electrolytes with you on a close basis. We will assist in blood pressure control given the gravity of the situation. 8. Greater than 35 minutes spent in the care of this patient. Discussed with utilization specialist, discussed with CCU staff. Omega Decker MD
[2018-03-24 18:08] LABS: HEMOGLOBIN 10.6 g/dL (12.0-16.0); MEAN CELL VOLUME 93.8 fl (80.0-105.0); MEAN CORPUSCULAR HEMOGLOBIN 31.5 pg (25.0-35.0); MEAN CORPUSCULAR HGB CONC 33.5 g/dl (31.0-37.0); MEAN PLATELET VOLUME 9.3 fl (7.0-11.0); RBC 3.37 10^6/uL (3.5-6.1); RED CELL DISTRIBUTION WIDTH 17.1 % (11.5-14.5); WHITE BLOOD COUNT 11.9 10^3/ul (4.5-11.0)
[2018-03-24 20:21] LABS: BLOOD UREA NITROGEN 12 mg/dL (7-21); CALCIUM 8.8 mg/dL (8.4-10.5); GFR NON-AFRICAN AMERICAN > 60
--- NOTE | 2018-03-24 21:28 | CARD ---
APPROVED REPORT Date of service: 03/24/2018 EKG Measurement Heart [id number] <Conclusion> Sinus rhythm with premature atrial complexes Moderate voltage criteria for LVH, may be normal variant Prolonged QT Abnormal ECG
[2018-03-25] MEDS: Dextrose 5%/0.9% NS 1,000 ML IV SCH ×2 (02:16→14:33)
[2018-03-25] MEDS: Insulin Reg-LOW-Coverage SC SCH ×4 (02:30→20:30)
[2018-03-25 05:41] LABS: ARTERIAL BLOOD GAS HCO3 20.3 mmol/L (21-28); ARTERIAL BLOOD GAS HEMOGLOBIN 10.9 g/dL (11.7-17.4); ARTERIAL BLOOD GAS O2 CONTENT 14.1 ML/dl (15-23); ARTERIAL BLOOD GAS O2 SAT 94.3 % (95-98); ARTERIAL BLOOD GAS PCO2 26 mm/Hg (35-45); ARTERIAL BLOOD GAS TCO2 21.1 mmol.L (22-28)
[2018-03-25 06:19] LABS: BASO # 0.02 K/mm3 (0.0-2.0); BASO % 0.2 % (0.0-3.0); EOS # 0.1 (0.0-0.7); EOS % 0.7 % (1.5-5.0); GRAN # 9.9 (1.4-6.5); GRAN % 81.8 % (50.0-68.0); HEMOGLOBIN 11.5 g/dL (12.0-16.0); LYMPH # 0.8 (1.2-3.4); LYMPH % 6.9 % (22.0-35.0); MEAN CELL VOLUME 93.4 fl (80.0-105.0); MEAN CORPUSCULAR HEMOGLOBIN 31.9 pg (25.0-35.0); MEAN CORPUSCULAR HGB CONC 34.1 g/dl (31.0-37.0); MONO # 1.3 (0.1-0.6); MONO % 10.4 % (1.0-6.0); RBC 3.61 10^6/uL (3.5-6.1); RED CELL DISTRIBUTION WIDTH 16.9 % (11.5-14.5); WHITE BLOOD COUNT 12.1 10^3/ul (4.5-11.0)
[2018-03-25 06:20] LABS: INR 1.74; PARTIAL THROMBOPLASTIN TIME 31.5 Seconds (25.1-36.5); PROTHROMBIN TIME 20.2 SECONDS (9.4-12.5)
[2018-03-25 06:45] LABS: ALB/GLOB RATIO 0.8 (1.1-1.8); ALBUMIN 3.2 g/dL (3.0-4.8); ALT/SGPT 31 U/L (7-56); AST/SGOT 48 U/L (14-36); BLOOD UREA NITROGEN 10 mg/dL (7-21); CALCIUM 8.5 mg/dL (8.4-10.5); GFR NON-AFRICAN AMERICAN > 60
--- NOTE | 2018-03-25 07:53 | PN ---
Copied To: Abilio Bass MD Attending MD: Abilio Bass MD DATE: 03/24/2018 SUBJECTIVE: The patient was seen this Friday at [facility] in Intensive Care CCU, bed 3. Notes from admission, lab results and Radiology reports have been reviewed. The patient was admitted three days ago with intracerebral bleeding, seen by Neurology and Neurosurgery. She now is in Intensive Care Unit, intubated, sedated with feeding tube in place. With sedation, the patient is barely responsive to light touch or verbal stimuli. PLAN: We will follow the lead of neurosurgical and Neurology opinion as well as serial CT scan. The Corn Lab Technician's notes appreciated as well. Abilio Bass MD
--- NOTE | 2018-03-25 08:00 | CP.PCM.PN ---
Subjective - Date & Time of Evaluation Date of Evaluation: 03/25/18 Time of Evaluation: 09:00 - Subjective Subjective: PGY-1 Jaimie Butler D.O. Neurology progress note for Dr. Stearns's service: Patient is seen and examined this morning. No seizure activity reported. Patient has been off sedation since yesterday, but she is still with eyes closed and unresponsive. She does respond to sternal rub and painful stimuli with opening eyes and facial grimace. She is able to squeeze her hand on command. She has poor gag reflex. She has continuous video-EEG in place. She is intubated and has NGT in place. ROS unobtainable due to patient unresponsive. Objective - Vital Signs/Intake and Output Vital Signs (last 24 hours): Temp Pulse Resp BP Pulse Ox 98.8 F 85 30 H 122/60 93 L 03/25/18 00:00 03/25/18 05:30 03/25/18 00:43 03/25/18 05:30 03/25/18 05:30 - Medications Medications: Current Medications Famotidine (Pepcid) 20 mg IVP DAILY [facility] Last Admin: 03/24/18 10:19 Dose: 20 mg Levetiracetam (Keppra 500mg Ivpb) 500 mg in 100 mls @ 460 mls/hr IVPB Q12 STEVEN Last Admin: 03/24/18 21:43 Dose: 460 mls/hr Nicardipine HCl (Cardene Iv Premix) 20 mg in 200 mls @ 50 mls/hr IV .Q4H PRN; Protocol; 5 MG/HR PRN Reason: TITRATE PER MD ORDER Last Admin: 03/24/18 15:58 Dose: 1 mg/hr, 10 mls/hr Dextrose/Sodium Chloride (Dextrose 5%/0.9% Ns 1000 Ml) 1,000 mls @ 100 mls/hr IV .Q10H STEVEN Last Admin: 03/25/18 02:16 Dose: 100 mls/hr Insulin Human Regular (Humulin R Low) 0 units SC Q6H STEVEN PRN Reason: Protocol Last Admin: 03/25/18 02:30 Dose: Not Given Vitamin A (Vitamin A & D Oint Ud Foilpak) 1 ea TOP Q12 PRN PRN Reason: apply to dry lips Last Admin: 03/24/18 10:19 Dose: 1 ea - Labs Labs: 03/25/18 05:40 03/25/18 05:40 PT 20.2 SECONDS (9.4-12.5) H 03/25/18 05:40 INR 1.74 03/25/18 05:40 APTT 31.5 Seconds (25.1-36.5) 03/25/18 05:40 - Constitutional Appears: No Acute Distress - Head Exam Additional comments: EEG cap in place - Eye Exam Eye Exam: PERRL - ENT Exam ENT Exam: Mucous Membranes Moist Additional comments: endotracheal tube and NGT in place - Neck Exam Neck Exam: Normal Inspection - Respiratory Exam Additional comments: on ventilator - Cardiovascular Exam Cardiovascular Exam: REGULAR RHYTHM - GI/Abdominal Exam GI & Abdominal Exam: Soft - Rectal Exam Rectal Exam: Deferred - Neurological Exam Additional comments: responsive to painful stimuli Doll's eyes poor gag reflex corneal reflex intact PERRL squeezes hand on command - Skin Skin Exam: Dry, Intact, Normal Color, Warm Assessment and Plan - Assessment and Plan (Free Text) Assessment: Patient is a 62 yo female with a history of alcohol abuse who presented after witnessed seizure activity at home. CT head revealed acute L occipital hemorrhage with initial increase in size and edema and herniation. Subsequent CT shows stable size. Will obtain MRI. Patient is currently intubated and being managed in the ICU. No intervention by neurosurgery indicated at this time. She is being monitored by continuous video EEG. She is now off sedation and beginning to respond. No clinical seizure activity observed. Keppra dose increased today. Consider mass underlying hemorrhage- potentially mets (melanoma , breast, thyroid). No discrete liver mass visualized on u/s. No AVM/venous anomaly seen on CTA. Plan: Seizure, new onset- 2/2 intracranial L occipital hemorrhage with possible underlying mass +/- low platelets +/- alcohol withdrawal - CT head on admission 03/21: Hemorrhage is noted within the medial left occipital lobe measuring approximately 2.8 x 2.8 cm with associated edema/necrosis. This finding exerts mass effect on the atrium of the ventricles anterior laterally. Location of this hemorrhage is atypical for hypertensive hemorrhage. Considerations include atypical hypertensive hemorrhage, underlying vascular lesion, hemorrhagic tumor is considered less likely. - Repeat CT head 03/22: Within the left occipital parietal lobe there is increasing region of hemorrhage measuring approximately 5.3 x 3.3 cm, previously approximately 2.2 x 2.2 cm. Interval development of intraventricular extension of hemorrhage involving the lateral and 3rd ventricles. Increasing dilatation of the left lateral ventricle suggests a degree of CSF flow obstruction. Spleen and left occipital parietal low-attenuation consistent with edema/infarction. - Repeat CT 03/24: Stable appearance of left parietal hemorrhage. - CTA head and neck: Slightly prominent vessels in the left occipital lobe around the left occipital parenchymal hemorrhage without definite CTA evidence of AVM or other vascular anomaly. No evidence of aneurysm. No evidence of major vascular occlusion or critical stenosis. - F/u MRI brain 03/26 - Continuous EEG: Occasional bi-frontal sharps with triphaisc Morphology, Left Hemispheric slowing -->consistent with metabolic encephalopathy - Continue for a total of 48 hours - Seizure precautions - Maintain SBP 110s-140s- Cardene drip discontinued due to hypo-normotensive - HOB elevated >30 degrees - Increase Keppra to 750 mg IV BID - Continue to monitor off sedation - Neurosurgery consulted (Dr. Post)- no intervention at this time, no role for steroids Alcohol use disorder- h/o esophageal varices with banding, current liver pathology - Management per primary team and GI - Abd u/s: Hepatomegaly. Splenomegaly. Echogenic liver may be seen in setting of hepatic parenchymal disease or fatty infiltration. Nodular hepatic contour. Correlate clinically for cirrhosis. Small ascites. - BAL <10 - Transaminitis - Hepatitis panel negative - B12, folate wnl - Elevated ammonia (39)- currently on lactulose 20 mg PO BID - Recheck in AM - Coreg 3.125 mg PO BID SIRS - Management as per primary team and ID - CXR 03/25: Persistent small right pleural effusion. No definite left pleural effusion. No definite infiltrate. - HIV negative - Currently on aztreonam and vancomycin Thrombocytopenia, chronic (as low as 38 in 06/2015)- s/p 9 units platelets, 4 units FFP - Management as per primary team and hem/onc- rec maintain >100 - BECKY negative Case discussed with attending, Dr. Stearns.
[2018-03-25] MEDS: Vancomycin 1gm in NS 250ml 1 GM/250 ML BAG IVPB SCH ×2 (08:59→21:00)
[2018-03-25] MEDS: levETIRAcetam 500mg IVPB 500 MG/100 ML BAG IVPB SCH (09:03)
[2018-03-25] MEDS ORDERED: Magnesium Sulfate 1 gm in D5W 1 GM/100 ML BAG IVPB ONE (09:18)
--- NOTE | 2018-03-25 09:20 | CP.CCUPN ---
<Mary Mena - Last Filed: 03/25/18 17:21> CCU Subjective - Physician Review Subjective (Free Text): ICU Progress note for Dr. Luz Elena Mena, PGY 1 Patient seen and examined at bedside this Am. No acute events overnight per nursing. Assessment limited d/t intubation and mental status. Patient is beginning to open her eyes and move limbs but is not yet following commands. No seizure activity observed overnight. 03/25/18 09:19 03/25/18 11:55 CCU Objective - Vital Signs / Intake & Output Vital Signs (Last 4 hours): Vital Signs Pulse BP Pulse Ox 03/25/18 09:00 132/65 03/25/18 05:30 85 122/60 93 L 03/25/18 05:20 85 94 L Intake and Output (Last 8hrs): Intake & Output 03/24/18 03/25/18 03/25/18 22:59 06:59 14:59 Intake Total 1419 Output Total 1600 Balance -181 Intake: IV 1419 3% hypertonic 210 D50.9% 350 Left Hand 100 Propofol 225 Versed 9 cardene 200 potassium 200 Output: Urine 1600 Urethral ([place]) 1600 Stool 0 Emesis 0 - Physical Exam Physical Exam Limitations: Positive for: Altered Mental Status Head: Positive for: Atraumatic, Normocephalic Pupils: Positive for: PERRL, Sluggish Respiratory/Chest: Positive for: Good Air Exchange, Decreased Breath Sounds ( RLL decreased breath sounds). Negative for: Respiratory Distress Cardiovascular: Positive for: Regular Rate and Rhythm, Normal S1, S2 Abdomen: Positive for: Distention (nontympanic), Normal Bowel Sounds. Negative for: Tenderness, Guarding Upper Extremity: Positive for: Normal Inspection, NORMAL PULSES. Negative for: Edema Lower Extremity: Positive for: Normal Inspection, NORMAL PULSES. Negative for: Edema Neurological: Positive for: Other (intubated and sedated, no twitching noted) Skin: Positive for: Warm, Dry, Normal Color Psychiatric: Positive for: Lethargic - Medications Active Medications: Active Medications Generic Name Dose Route Start Last Admin Trade Name Freq PRN Reason Stop Dose Admin Famotidine 20 mg 03/23/18 10:00 03/25/18 09:01 Pepcid IVP 20 mg DAILY STEVEN Administration Levetiracetam 500 mg in 100 mls @ 460 mls/hr 03/22/18 10:00 03/25/18 09:03 Keppra 500mg Ivpb IVPB 460 mls/hr Q12 STEVEN Administration Nicardipine HCl 20 mg in 200 mls @ 50 mls/hr 03/24/18 07:57 03/24/18 15:58 Cardene Iv Premix IV 1 mg/hr .Q4H PRN 10 mls/hr TITRATE PER MD ORDER Administration Protocol 5 MG/HR Dextrose/Sodium Chloride 1,000 mls @ 100 mls/hr 03/24/18 15:30 03/25/18 02:16 Dextrose 5%/0.9% Ns 1000 Ml IV 100 mls/hr .Q10H STEVEN Administration Potassium Chloride 20 meq in 100 mls @ 50 mls/hr 03/25/18 08:45 03/25/18 08: 59 Potassium Chloride 20 Meq/100 Ml IVPB 03/25/18 12:44 50 mls/hr Q2H STEVEN Administration Acetaminophen 1,000 mg in 100 mls @ 400 mls/hr 03/25/18 08:38 03/25/18 08:49 Ofirmev IVPB 03/27/18 08:39 400 mls/hr Q6H PRN Administration t more then 99.5 Aztreonam 100 mls @ 100 mls/hr 03/25/18 09:00 Azactam 1 Gm IVPB 04/01/18 09:01 Q8 STEVEN Protocol Vancomycin HCl 1 gm in 250 mls @ 167 mls/hr 03/25/18 09:00 03/25/18 08:59 Vancomycin 1gm IVPB 167 mls/hr Q12H STEVEN Administration Protocol Magnesium Sulfate/Dextrose 1 gm in 100 mls @ 100 mls/hr 03/25/18 09:18 Magnesium Sulfate 1 Gm/100 Ml D5w IVPB 03/25/18 10:17 ONCE ONE Insulin Human Regular 0 units 03/24/18 14:00 03/25/18 02:30 Humulin R Low SC Not Given Q6H STEVEN Protocol Vitamin A 1 ea 03/23/18 17:50 03/24/18 10:19 Vitamin A & D Oint Ud Foilpak TOP 1 ea Q12 PRN Administration apply to dry lips - Patient Studies Lab Studies: Microbiology Studies 03/21/18 18:30 Blood Culture - Preliminary Blood-Venous NO GROWTH AFTER 3 DAYS 03/21/18 18:00 Blood Culture - Preliminary Blood-Venous NO GROWTH AFTER 3 DAYS Lab Studies 03/25/18 03/25/18 03/25/18 Range/Units 05:40 05:40 05:40 WBC (4.5-11.0) 10^3/ul RBC (3.5-6.1) 10^6/uL Hgb (12.0-16.0) g/dL Hct (36.0-48.0) % MCV (80.0-105.0) fl MCH (25.0-35.0) pg MCHC (31.0-37.0) g/dl RDW (11.5-14.5) % Plt Count (120.0-450.0) 10^3/uL Manual Plt Count 112 L (120-450) K/mm3 MPV (7.0-11.0) fl Gran % (50.0-68.0) % Lymph % (Auto) (22.0-35.0) % [place] % (Auto) (1.0-6.0) % Eos % (Auto) (1.5-5.0) % Baso % (Auto) (0.0-3.0) % Gran # (1.4-6.5) Lymph # (Auto) (1.2-3.4) [place] # (Auto) (0.1-0.6) Eos # (Auto) (0.0-0.7) Baso # (Auto) (0.0-2.0) K/mm3 PT 20.2 H (9.4-12.5) SECONDS INR 1.74 APTT 31.5 (25.1-36.5) Seconds pCO2 (35-45) mm/Hg pO2 (80-100) mm/Hg HCO3 (21-28) mmol/L ABG pH (7.35-7.45) ABG Total CO2 (22-28) mmol.L ABG O2 Saturation (95-98) % ABG O2 Content (15-23) ML/dl ABG Base Excess (-2.0-3.0) mmol/L ABG Hemoglobin (11.7-17.4) g/dL ABG Carboxyhemoglobin (0.5-1.5) % POC ABG HHb (Measured) (0-5) % ABG Methemoglobin (0.0-3.0) % ABG O2 Capacity (16-24) mL/dl Hgb O2 Saturation (95.0-98.0) % FiO2 % Sodium (132-148) mmol/L Potassium (3.6-5.0) mmol/L Chloride (98-107) mmol/L Carbon Dioxide (21-33) mmol/L Anion Gap (10-20) BUN (7-21) mg/dL Creatinine (0.7-1.2) mg/dl Est GFR ( Amer) Est GFR (Non-Af Amer) POC Glucose (mg/dL) (65-110) mg/dL Random Glucose (70-110) mg/dL Serum Osmolality 299 (272-300) mosm/kg Calcium (8.4-10.5) mg/dL Phosphorus (2.5-4.5) mg/dL Magnesium (1.7-2.2) mg/dL Total Bilirubin (0.2-1.3) mg/dL AST (14-36) U/L ALT (7-56) U/L Alkaline Phosphatase (38-126) U/L Total Protein (5.8-8.3) g/dL Albumin (3.0-4.8) g/dL Globulin gm/dL Albumin/Globulin Ratio (1.1-1.8) 03/25/18 03/25/18 03/25/18 Range/Units 05:40 05:40 05:30 WBC 12.1 H (4.5-11.0) 10^3/ul RBC 3.61 (3.5-6.1) 10^6/uL Hgb 11.5 L (12.0-16.0) g/dL Hct 33.7 L (36.0-48.0) % MCV 93.4 (80.0-105.0) fl MCH 31.9 (25.0-35.0) pg MCHC 34.1 (31.0-37.0) g/dl RDW 16.9 H (11.5-14.5) % Plt Count 96 L (120.0-450.0) 10^3/uL Manual Plt Count (120-450) K/mm3 MPV 10.0 (7.0-11.0) fl Gran % 81.8 H (50.0-68.0) % Lymph % (Auto) 6.9 L (22.0-35.0) % [place] % (Auto) 10.4 H (1.0-6.0) % Eos % (Auto) 0.7 L (1.5-5.0) % Baso % (Auto) 0.2 (0.0-3.0) % Gran # 9.90 H (1.4-6.5) Lymph # (Auto) 0.8 L (1.2-3.4) [place] # (Auto) 1.3 H (0.1-0.6) Eos # (Auto) 0.1 (0.0-0.7) Baso # (Auto) 0.02 (0.0-2.0) K/mm3 PT (9.4-12.5) SECONDS INR APTT (25.1-36.5) Seconds pCO2 26 L (35-45) mm/Hg pO2 56.0 L (80-100) mm/Hg HCO3 20.3 L (21-28) mmol/L ABG pH 7.50 H (7.35-7.45) ABG Total CO2 21.1 L (22-28) mmol.L ABG O2 Saturation 94.3 L (95-98) % ABG O2 Content 14.1 L (15-23) ML/dl ABG Base Excess -1.8 (-2.0-3.0) mmol/L ABG Hemoglobin 10.9 L (11.7-17.4) g/dL ABG Carboxyhemoglobin 2.2 H (0.5-1.5) % POC ABG HHb (Measured) 5.5 H (0-5) % ABG Methemoglobin 0.7 (0.0-3.0) % ABG O2 Capacity 15.0 L (16-24) mL/dl Hgb O2 Saturation 91.6 L (95.0-98.0) % FiO2 50.0 % Sodium 148 (132-148) mmol/L Potassium 3.2 L (3.6-5.0) mmol/L Chloride 120 H (98-107) mmol/L Carbon Dioxide 20 L (21-33) mmol/L Anion Gap 13 (10-20) BUN 10 (7-21) mg/dL Creatinine 0.5 L (0.7-1.2) mg/dl Est GFR ( Amer) > 60 Est GFR (Non-Af Amer) > 60 POC Glucose (mg/dL) (65-110) mg/dL Random Glucose 134 H (70-110) mg/dL Serum Osmolality (272-300) mosm/kg Calcium 8.5 (8.4-10.5) mg/dL Phosphorus 2.5 (2.5-4.5) mg/dL Magnesium 1.6 L (1.7-2.2) mg/dL Total Bilirubin 4.9 H (0.2-1.3) mg/dL AST 48 H D (14-36) U/L ALT 31 (7-56) U/L Alkaline Phosphatase 115 (38-126) U/L Total Protein 7.0 (5.8-8.3) g/dL Albumin 3.2 (3.0-4.8) g/dL Globulin 3.8 gm/dL Albumin/Globulin Ratio 0.8 L (1.1-1.8) 03/25/18 03/24/18 03/24/18 Range/Units 02:30 21:49 19:53 WBC (4.5-11.0) 10^3/ul RBC (3.5-6.1) 10^6/uL Hgb (12.0-16.0) g/dL Hct (36.0-48.0) % MCV (80.0-105.0) fl MCH (25.0-35.0) pg MCHC (31.0-37.0) g/dl RDW (11.5-14.5) % Plt Count (120.0-450.0) 10^3/uL Manual Plt Count (120-450) K/mm3 MPV (7.0-11.0) fl Gran % (50.0-68.0) % Lymph % (Auto) (22.0-35.0) % [place] % (Auto) (1.0-6.0) % Eos % (Auto) (1.5-5.0) % Baso % (Auto) (0.0-3.0) % Gran # (1.4-6.5) Lymph # (Auto) (1.2-3.4) [place] # (Auto) (0.1-0.6) Eos # (Auto) (0.0-0.7) Baso # (Auto) (0.0-2.0) K/mm3 PT (9.4-12.5) SECONDS INR APTT (25.1-36.5) Seconds pCO2 (35-45) mm/Hg pO2 (80-100) mm/Hg HCO3 (21-28) mmol/L ABG pH (7.35-7.45) ABG Total CO2 (22-28) mmol.L ABG O2 Saturation (95-98) % ABG O2 Content (15-23) ML/dl ABG Base Excess (-2.0-3.0) mmol/L ABG Hemoglobin (11.7-17.4) g/dL ABG Carboxyhemoglobin (0.5-1.5) % POC ABG HHb (Measured) (0-5) % ABG Methemoglobin (0.0-3.0) % ABG O2 Capacity (16-24) mL/dl Hgb O2 Saturation (95.0-98.0) % FiO2 % Sodium (132-148) mmol/L Potassium (3.6-5.0) mmol/L Chloride (98-107) mmol/L Carbon Dioxide (21-33) mmol/L Anion Gap (10-20) BUN (7-21) mg/dL Creatinine (0.7-1.2) mg/dl Est GFR ( Amer) Est GFR (Non-Af Amer) POC Glucose (mg/dL) 140 H 129 H (65-110) mg/dL Random Glucose (70-110) mg/dL Serum Osmolality 304 H (272-300) mosm/kg Calcium (8.4-10.5) mg/dL Phosphorus (2.5-4.5) mg/dL Magnesium (1.7-2.2) mg/dL Total Bilirubin (0.2-1.3) mg/dL AST (14-36) U/L ALT (7-56) U/L Alkaline Phosphatase (38-126) U/L Total Protein (5.8-8.3) g/dL Albumin (3.0-4.8) g/dL Globulin gm/dL Albumin/Globulin Ratio (1.1-1.8) 03/24/18 03/24/18 03/24/18 Range/Units 19:53 17:59 17:46 WBC 11.9 H D (4.5-11.0) 10^3/ul RBC 3.37 L (3.5-6.1) 10^6/uL Hgb 10.6 L (12.0-16.0) g/dL Hct 31.6 L (36.0-48.0) % MCV 93.8 (80.0-105.0) fl MCH 31.5 (25.0-35.0) pg MCHC 33.5 (31.0-37.0) g/dl RDW 17.1 H (11.5-14.5) % Plt Count 103 L (120.0-450.0) 10^3/uL Manual Plt Count (120-450) K/mm3 MPV 9.3 (7.0-11.0) fl Gran % (50.0-68.0) % Lymph % (Auto) (22.0-35.0) % [place] % (Auto) (1.0-6.0) % Eos % (Auto) (1.5-5.0) % Baso % (Auto) (0.0-3.0) % Gran # (1.4-6.5) Lymph # (Auto) (1.2-3.4) [place] # (Auto) (0.1-0.6) Eos # (Auto) (0.0-0.7) Baso # (Auto) (0.0-2.0) K/mm3 PT (9.4-12.5) SECONDS INR APTT (25.1-36.5) Seconds pCO2 (35-45) mm/Hg pO2 (80-100) mm/Hg HCO3 (21-28) mmol/L ABG pH (7.35-7.45) ABG Total CO2 (22-28) mmol.L ABG O2 Saturation (95-98) % ABG O2 Content (15-23) ML/dl ABG Base Excess (-2.0-3.0) mmol/L ABG Hemoglobin (11.7-17.4) g/dL ABG Carboxyhemoglobin (0.5-1.5) % POC ABG HHb (Measured) (0-5) % ABG Methemoglobin (0.0-3.0) % ABG O2 Capacity (16-24) mL/dl Hgb O2 Saturation (95.0-98.0) % FiO2 % Sodium 147 (132-148) mmol/L Potassium 3.2 L (3.6-5.0) mmol/L Chloride 118 H (98-107) mmol/L Carbon Dioxide 22 (21-33) mmol/L Anion Gap 10 (10-20) BUN 12 (7-21) mg/dL Creatinine 0.5 L (0.7-1.2) mg/dl Est GFR ( Amer) > 60 Est GFR (Non-Af Amer) > 60 POC Glucose (mg/dL) 129 H (65-110) mg/dL Random Glucose 130 H (70-110) mg/dL Serum Osmolality (272-300) mosm/kg Calcium 8.8 (8.4-10.5) mg/dL Phosphorus (2.5-4.5) mg/dL Magnesium (1.7-2.2) mg/dL Total Bilirubin (0.2-1.3) mg/dL AST (14-36) U/L ALT (7-56) U/L Alkaline Phosphatase (38-126) U/L Total Protein (5.8-8.3) g/dL Albumin (3.0-4.8) g/dL Globulin gm/dL Albumin/Globulin Ratio (1.1-1.8) 03/24/18 03/24/18 03/24/18 Range/Units 11:45 11:45 11:20 WBC (4.5-11.0) 10^3/ul RBC (3.5-6.1) 10^6/uL Hgb (12.0-16.0) g/dL Hct (36.0-48.0) % MCV (80.0-105.0) fl MCH (25.0-35.0) pg MCHC (31.0-37.0) g/dl RDW (11.5-14.5) % Plt Count (120.0-450.0) 10^3/uL Manual Plt Count (120-450) K/mm3 MPV (7.0-11.0) fl Gran % (50.0-68.0) % Lymph % (Auto) (22.0-35.0) % [place] % (Auto) (1.0-6.0) % Eos % (Auto) (1.5-5.0) % Baso % (Auto) (0.0-3.0) % Gran # (1.4-6.5) Lymph # (Auto) (1.2-3.4) [place] # (Auto) (0.1-0.6) Eos # (Auto) (0.0-0.7) Baso # (Auto) (0.0-2.0) K/mm3 PT (9.4-12.5) SECONDS INR APTT (25.1-36.5) Seconds pCO2 24 L (35-45) mm/Hg pO2 55.0 L (80-100) mm/Hg HCO3 19.2 L (21-28) mmol/L ABG pH 7.51 H (7.35-7.45) ABG Total CO2 19.9 L (22-28) mmol.L ABG O2 Saturation 93.3 L (95-98) % ABG O2 Content 13.4 L (15-23) ML/dl ABG Base Excess -2.6 L (-2.0-3.0) mmol/L ABG Hemoglobin 10.6 L (11.7-17.4) g/dL ABG Carboxyhemoglobin 2.3 H (0.5-1.5) % POC ABG HHb (Measured) 6.5 H (0-5) % ABG Methemoglobin 1.1 (0.0-3.0) % ABG O2 Capacity 14.4 L (16-24) mL/dl Hgb O2 Saturation 90.0 L (95.0-98.0) % FiO2 40.0 % Sodium 150 H (132-148) mmol/L Potassium 3.2 L (3.6-5.0) mmol/L Chloride 119 H (98-107) mmol/L Carbon Dioxide 21 (21-33) mmol/L Anion Gap 13 (10-20) BUN 11 (7-21) mg/dL Creatinine 0.5 L (0.7-1.2) mg/dl Est GFR ( Amer) > 60 Est GFR (Non-Af Amer) > 60 POC Glucose (mg/dL) (65-110) mg/dL Random Glucose 107 (70-110) mg/dL Serum Osmolality 301 H (272-300) mosm/kg Calcium 8.8 (8.4-10.5) mg/dL Phosphorus (2.5-4.5) mg/dL Magnesium (1.7-2.2) mg/dL Total Bilirubin (0.2-1.3) mg/dL AST (14-36) U/L ALT (7-56) U/L Alkaline Phosphatase (38-126) U/L Total Protein (5.8-8.3) g/dL Albumin (3.0-4.8) g/dL Globulin gm/dL Albumin/Globulin Ratio (1.1-1.8) 03/24/18 Range/Units 11:19 WBC (4.5-11.0) 10^3/ul RBC (3.5-6.1) 10^6/uL Hgb (12.0-16.0) g/dL Hct (36.0-48.0) % MCV (80.0-105.0) fl MCH (25.0-35.0) pg MCHC (31.0-37.0) g/dl RDW (11.5-14.5) % Plt Count (120.0-450.0) 10^3/uL Manual Plt Count (120-450) K/mm3 MPV (7.0-11.0) fl Gran % (50.0-68.0) % Lymph % (Auto) (22.0-35.0) % [place] % (Auto) (1.0-6.0) % Eos % (Auto) (1.5-5.0) % Baso % (Auto) (0.0-3.0) % Gran # (1.4-6.5) Lymph # (Auto) (1.2-3.4) [place] # (Auto) (0.1-0.6) Eos # (Auto) (0.0-0.7) Baso # (Auto) (0.0-2.0) K/mm3 PT (9.4-12.5) SECONDS INR APTT (25.1-36.5) Seconds pCO2 (35-45) mm/Hg pO2 (80-100) mm/Hg HCO3 (21-28) mmol/L ABG pH (7.35-7.45) ABG Total CO2 (22-28) mmol.L ABG O2 Saturation (95-98) % ABG O2 Content (15-23) ML/dl ABG Base Excess (-2.0-3.0) mmol/L ABG Hemoglobin (11.7-17.4) g/dL ABG Carboxyhemoglobin (0.5-1.5) % POC ABG HHb (Measured) (0-5) % ABG Methemoglobin (0.0-3.0) % ABG O2 Capacity (16-24) mL/dl Hgb O2 Saturation (95.0-98.0) % FiO2 % Sodium (132-148) mmol/L Potassium (3.6-5.0) mmol/L Chloride (98-107) mmol/L Carbon Dioxide (21-33) mmol/L Anion Gap (10-20) BUN (7-21) mg/dL Creatinine (0.7-1.2) mg/dl Est GFR ( Amer) Est GFR (Non-Af Amer) POC Glucose (mg/dL) 104 (65-110) mg/dL Random Glucose (70-110) mg/dL Serum Osmolality (272-300) mosm/kg Calcium (8.4-10.5) mg/dL Phosphorus (2.5-4.5) mg/dL Magnesium (1.7-2.2) mg/dL Total Bilirubin (0.2-1.3) mg/dL AST (14-36) U/L ALT (7-56) U/L Alkaline Phosphatase (38-126) U/L Total Protein (5.8-8.3) g/dL Albumin (3.0-4.8) g/dL Globulin gm/dL Albumin/Globulin Ratio (1.1-1.8) Laboratory Results - last 24 hr 03/24/18 03/24/18 03/24/18 11:19 11:20 11:45 WBC RBC Hgb Hct MCV MCH MCHC RDW Plt Count Manual Plt Count MPV Gran % Lymph % (Auto) [place] % (Auto) Eos % (Auto) Baso % (Auto) Gran # Lymph # (Auto) [place] # (Auto) Eos # (Auto) Baso # (Auto) PT INR APTT pCO2 24 L pO2 55.0 L HCO3 19.2 L ABG pH 7.51 H ABG Total CO2 19.9 L ABG O2 Saturation 93.3 L ABG O2 Content 13.4 L ABG Base Excess -2.6 L ABG Hemoglobin 10.6 L ABG Carboxyhemoglobin 2.3 H POC ABG HHb (Measured) 6.5 H ABG Methemoglobin 1.1 ABG O2 Capacity 14.4 L Hgb O2 Saturation 90.0 L FiO2 40.0 Sodium 150 H Potassium 3.2 L Chloride 119 H Carbon Dioxide 21 Anion Gap 13 BUN 11 Creatinine 0.5 L Est GFR ( Amer) > 60 Est GFR (Non-Af Amer) > 60 POC Glucose (mg/dL) 104 Random Glucose 107 Serum Osmolality Calcium 8.8 Phosphorus Magnesium Total Bilirubin AST ALT Alkaline Phosphatase Total Protein Albumin Globulin Albumin/Globulin Ratio 03/24/18 03/24/18 03/24/18 11:45 17:46 17:59 WBC 11.9 H D RBC 3.37 L Hgb 10.6 L Hct 31.6 L MCV 93.8 MCH 31.5 MCHC 33.5 RDW 17.1 H Plt Count 103 L Manual Plt Count MPV 9.3 Gran % Lymph % (Auto) [place] % (Auto) Eos % (Auto) Baso % (Auto) Gran # Lymph # (Auto) [place] # (Auto) Eos # (Auto) Baso # (Auto) PT INR APTT pCO2 pO2 HCO3 ABG pH ABG Total CO2 ABG O2 Saturation ABG O2 Content ABG Base Excess ABG Hemoglobin ABG Carboxyhemoglobin POC ABG HHb (Measured) ABG Methemoglobin ABG O2 Capacity Hgb O2 Saturation FiO2 Sodium Potassium Chloride Carbon Dioxide Anion Gap BUN Creatinine Est GFR ( Amer) Est GFR (Non-Af Amer) POC Glucose (mg/dL) 129 H Random Glucose Serum Osmolality 301 H Calcium Phosphorus Magnesium Total Bilirubin AST ALT Alkaline Phosphatase Total Protein Albumin Globulin Albumin/Globulin Ratio 03/24/18 03/24/18 03/24/18 19:53 19:53 21:49 WBC RBC Hgb Hct MCV MCH MCHC RDW Plt Count Manual Plt Count MPV Gran % Lymph % (Auto) [place] % (Auto) Eos % (Auto) Baso % (Auto) Gran # Lymph # (Auto) [place] # (Auto) Eos # (Auto) Baso # (Auto) PT INR APTT pCO2 pO2 HCO3 ABG pH ABG Total CO2 ABG O2 Saturation ABG O2 Content ABG Base Excess ABG Hemoglobin ABG Carboxyhemoglobin POC ABG HHb (Measured) ABG Methemoglobin ABG O2 Capacity Hgb O2 Saturation FiO2 Sodium 147 Potassium 3.2 L Chloride 118 H Carbon Dioxide 22 Anion Gap 10 BUN 12 Creatinine 0.5 L Est GFR ( Amer) > 60 Est GFR (Non-Af Amer) > 60 POC Glucose (mg/dL) 129 H Random Glucose 130 H Serum Osmolality 304 H Calcium 8.8 Phosphorus Magnesium Total Bilirubin AST ALT Alkaline Phosphatase Total Protein Albumin Globulin Albumin/Globulin Ratio 03/25/18 03/25/18 03/25/18 02:30 05:30 05:40 WBC 12.1 H RBC 3.61 Hgb 11.5 L Hct 33.7 L MCV 93.4 MCH 31.9 MCHC 34.1 RDW 16.9 H Plt Count 96 L Manual Plt Count MPV 10.0 Gran % 81.8 H Lymph % (Auto) 6.9 L [place] % (Auto) 10.4 H Eos % (Auto) 0.7 L Baso % (Auto) 0.2 Gran # 9.90 H Lymph # (Auto) 0.8 L [place] # (Auto) 1.3 H Eos # (Auto) 0.1 Baso # (Auto) 0.02 PT INR APTT pCO2 26 L pO2 56.0 L HCO3 20.3 L ABG pH 7.50 H ABG Total CO2 21.1 L ABG O2 Saturation 94.3 L ABG O2 Content 14.1 L ABG Base Excess -1.8 ABG Hemoglobin 10.9 L ABG Carboxyhemoglobin 2.2 H POC ABG HHb (Measured) 5.5 H ABG Methemoglobin 0.7 ABG O2 Capacity 15.0 L Hgb O2 Saturation 91.6 L FiO2 50.0 Sodium Potassium Chloride Carbon Dioxide Anion Gap BUN Creatinine Est GFR ( Amer) Est GFR (Non-Af Amer) POC Glucose (mg/dL) 140 H Random Glucose Serum Osmolality Calcium Phosphorus Magnesium Total Bilirubin AST ALT Alkaline Phosphatase Total Protein Albumin Globulin Albumin/Globulin Ratio 03/25/18 03/25/18 03/25/18 05:40 05:40 05:40 WBC RBC Hgb Hct MCV MCH MCHC RDW Plt Count Manual Plt Count 112 L MPV Gran % Lymph % (Auto) [place] % (Auto) Eos % (Auto) Baso % (Auto) Gran # Lymph # (Auto) [place] # (Auto) Eos # (Auto) Baso # (Auto) PT 20.2 H INR 1.74 APTT 31.5 pCO2 pO2 HCO3 ABG pH ABG Total CO2 ABG O2 Saturation ABG O2 Content ABG Base Excess ABG Hemoglobin ABG Carboxyhemoglobin POC ABG HHb (Measured) ABG Methemoglobin ABG O2 Capacity Hgb O2 Saturation FiO2 Sodium 148 Potassium 3.2 L Chloride 120 H Carbon Dioxide 20 L Anion Gap 13 BUN 10 Creatinine 0.5 L Est GFR ( Amer) > 60 Est GFR (Non-Af Amer) > 60 POC Glucose (mg/dL) Random Glucose 134 H Serum Osmolality Calcium 8.5 Phosphorus 2.5 Magnesium 1.6 L Total Bilirubin 4.9 H AST 48 H D ALT 31 Alkaline Phosphatase 115 Total Protein 7.0 Albumin 3.2 Globulin 3.8 Albumin/Globulin Ratio 0.8 L 03/25/18 05:40 WBC RBC Hgb Hct MCV MCH MCHC RDW Plt Count Manual Plt Count MPV Gran % Lymph % (Auto) [place] % (Auto) Eos % (Auto) Baso % (Auto) Gran # Lymph # (Auto) [place] # (Auto) Eos # (Auto) Baso # (Auto) PT INR APTT pCO2 pO2 HCO3 ABG pH ABG Total CO2 ABG O2 Saturation ABG O2 Content ABG Base Excess ABG Hemoglobin ABG Carboxyhemoglobin POC ABG HHb (Measured) ABG Methemoglobin ABG O2 Capacity Hgb O2 Saturation FiO2 Sodium Potassium Chloride Carbon Dioxide Anion Gap BUN Creatinine Est GFR ( Amer) Est GFR (Non-Af Amer) POC Glucose (mg/dL) Random Glucose Serum Osmolality 299 Calcium Phosphorus Magnesium Total Bilirubin AST ALT Alkaline Phosphatase Total Protein Albumin Globulin Albumin/Globulin Ratio EKG/Cardiology Studies: Cardiology / EKG Studies 03/24/18 13:15 EKG [ELECTROCARDIOGRAM] Routine Comment: Reason For Exam: SEIZURES Fingerstick Blood Sugar Results: 140 Review of Systems - Review of Systems Systems not reviewed;Unavailable: Intubated Critical Care Progress Note - Ventilator Checklist Head of Bed 30 Degrees: Yes Daily Assessment of Readiness to Wean: Yes Daily Spontaneous Breathing Trial: Yes PUD Prophalyxis: Yes DVT Prophylaxis: Yes - Vent Settings MODE:: PRESSURE SUPPORT - Extremities/Vascular Does the Patient have a Central Venous Catheter?: Yes Insertion Site: Internal Jugular Vein Does the Patient need a Central Venous Catheter?: Yes Does the Patient have a Donahue Catheter?: Yes Does the Patient need a Donahue Catheter?: Yes Catheter Insertion Criteria: Need for accurate measurement of output in critically ill patient - Prophylaxis GI Prophylaxis GI: Pepsid - Prophylaxis DVT Prophylaxis DVT: SCDs Assessment/Plan - Assessment and Plan (Free Text) Assessment: 62 year old female with PMH cirrhosis, esophageal varices s/p banding 2014, spinal stenosis, arthritis, alcohol abuse, [place] to [facility] [place] after a seizure at home, requiring intubation in ED. Found to have 2x2 CM L occipital hemorrhagic stroke which has progressed to 5x5 9/2 AM. Currently intubated and sedated on propofol drip and Midazolam, requiring Cardene drip for BP control Plan: Neuro : - Continuous EEG monitoring revealed No seizure activity, diffuse cortical disturbances and left hemisphere slowing - patient slowly becoming more awake opening eyes and moving, not following commands - Will keep BP goals: SBP 120-140/80-90. - C/w keppra 500 BID - no longer on sedatives as of yesterday - Neurosurgery on board. No acute surgical intervention. Keep HOB>30 degrees. - Neurology Following - Seizure precautions, neuro checks. - 03/21 CT head showed hemorrhage within the medial left occipital lobe measuring approximately 2.8 x 2.8 cm with associated edema/necrosis. This finding exerts mass effect on the atrium of the ventricles anterior laterally. Location of this hemorrhage is atypical for hypertensive hemorrhage. Considerations include atypical hypertensive hemorrhage, underlying vascular lesion, hemorrhagic tumor is considered less likely. - 03/22 CT Head showed increasing left occipital lobe hemorrhage 5.3x3.3cm from 2.2x2.2cm. Intraventricular extension of hemorrhage involving left lateral and 3rd ventricles. Increasing dilatation of the left lateral ventricle. - 03/23 CTA no AVM, no aneurysm, no stenosis or blockage, hemorrhage stable in size - 03/24 CT head no change, stable hemorrhage CV: - Keep BP goal 120-140/80-90. - Continue to titrate cardene drip as needed - Continue to monitor. Pulm: - Intubated on Pressure Support/ CPAP - Maintain O2 sat>92-94% - Continue with HOB elevation> 35 degrees, aspiration precautions. - Continue with protected lung ventilation strategies with TV of 6 ml/kg of IBW , plateau pressure less than 35, head of bed elevation above 35 degrees, pulm toileting - ABG 7.50/ CO2 26/ 02 56/ HCO3 20 - worsening CXR today, possible pneumonia vs neurogenic pulmonary edema GI: - NGT feeds glucerna 1.2 goal 30 - Lactulose given for elevated ammonia level Renal : - BUN/Cr 10/0.5 - UOP appropriate, lasix given to diurese pulmonary edema - Replace lytes, maintain euvolemia. - Continue to monitor. ID: - T max 102.7, WBC 11.5 - Ucx and Bcx pending - started aztreonam and vancomycin - ID consulted, recs appreciated - all previous cultures negative to date -CXR today worsening patchy lung infiltrate Endo: Maintain euglycemia. Heme: - Patient historically has had thrombocytopenia - PLT today is 112 on manual count today - Post 2U platelet transfusion 03/21, 4 U platelets and 2 FFP 03/22 (INR 1.55 03/23). 2 u Platelets, 2FFP on 03/23 - Platelet goal set for >100,000 in setting of ICH/ Hemorrhagic stroke - Hematology consulted for thrombocytopenia - Hgb improved to 11.5 - Total bili 4.9 DVT ppx - SCDs in setting of brain hemorrhage GI ppx - Protonix - Date & Time Date: 03/25/18 <[place] - Last Filed: 03/25/18 18:27> CCU Objective - Vital Signs / Intake & Output Vital Signs (Last 4 hours): Vital Signs Pulse BP 03/25/18 17:18 77 132/72 Intake and Output (Last 8hrs): Intake & Output 03/25/18 03/25/18 03/25/18 06:59 14:59 22:59 Intake Total 1420 200 Balance 1420 200 Intake: IV 1420 200 D50.9% 1300 cardene 120 - Medications Active Medications: Active Medications Generic Name Dose Route Start Last Admin Trade Name Freq PRN Reason Stop Dose Admin Carvedilol 3.125 mg 03/25/18 18:00 03/25/18 17:18 Coreg PO 3.125 mg BID STEVEN Administration Famotidine 20 mg 03/23/18 10:00 03/25/18 09:01 Pepcid IVP 20 mg DAILY STEVEN Administration Nicardipine HCl 20 mg in 200 mls @ 50 mls/hr 03/24/18 07:57 03/25/18 11:00 Cardene Iv Premix IV Infused .Q4H PRN Titration TITRATE PER MD ORDER Protocol 5 MG/HR Acetaminophen 1,000 mg in 100 mls @ 400 mls/hr 03/25/18 08:38 03/25/18 08:49 Ofirmev IVPB 03/27/18 08:39 400 mls/hr Q6H PRN Administration t more then 99.5 Aztreonam 100 mls @ 100 mls/hr 03/25/18 09:00 03/25/18 14:29 Azactam 1 Gm IVPB 04/01/18 09:01 100 mls/hr Q8 STEVEN Administration Protocol Vancomycin HCl 1 gm in 250 mls @ 167 mls/hr 03/25/18 09:00 03/25/18 08:59 Vancomycin 1gm IVPB 167 mls/hr Q12H STEVEN Administration Protocol Levetiracetam 750 mg/ Sodium 107.5 mls @ 460 mls/hr 03/25/18 22:00 Chloride IV Q12 STEVEN Potassium Chloride 20 meq/ 1,010 mls @ 100 mls/hr 03/25/18 16:15 03/25/18 17: 18 Dextrose/Sodium Chloride IV 100 mls/hr .[id number] STEVEN Administration Potassium Chloride 20 meq in 100 mls @ 50 mls/hr 03/25/18 18:30 Potassium Chloride 20 Meq/100 Ml IVPB 03/25/18 22:29 Q2H STEVEN Insulin Human Regular 0 units 03/24/18 14:00 03/25/18 14:28 Humulin R Low SC Not Given Q6H STEVEN Protocol Lactulose 20 gm 03/25/18 10:30 03/25/18 17:20 Enulose PO 20 gm BID STEVEN Administration Vitamin A 1 ea 03/23/18 17:50 03/24/18 10:19 Vitamin A & D Oint Ud Foilpak TOP 1 ea Q12 PRN Administration apply to dry lips - Patient Studies Lab Studies: Microbiology Studies 03/21/18 18:30 Blood Culture - Preliminary Blood-Venous NO GROWTH AFTER 3 DAYS 03/21/18 18:00 Blood Culture - Preliminary Blood-Venous NO GROWTH AFTER 3 DAYS Lab Studies 03/25/18 03/25/18 03/25/18 Range/Units 13:53 11:30 11:30 WBC (4.5-11.0) 10^3/ul RBC (3.5-6.1) 10^6/uL Hgb (12.0-16.0) g/dL Hct (36.0-48.0) % MCV (80.0-105.0) fl MCH (25.0-35.0) pg MCHC (31.0-37.0) g/dl RDW (11.5-14.5) % Plt Count (120.0-450.0) 10^3/uL Manual Plt Count (120-450) K/mm3 MPV (7.0-11.0) fl Gran % (50.0-68.0) % Lymph % (Auto) (22.0-35.0) % [place] % (Auto) (1.0-6.0) % Eos % (Auto) (1.5-5.0) % Baso % (Auto) (0.0-3.0) % Gran # (1.4-6.5) Lymph # (Auto) (1.2-3.4) [place] # (Auto) (0.1-0.6) Eos # (Auto) (0.0-0.7) Baso # (Auto) (0.0-2.0) K/mm3 PT (9.4-12.5) SECONDS INR APTT (25.1-36.5) Seconds pCO2 (35-45) mm/Hg pO2 (80-100) mm/Hg HCO3 (21-28) mmol/L ABG pH (7.35-7.45) ABG Total CO2 (22-28) mmol.L ABG O2 Saturation (95-98) % ABG O2 Content (15-23) ML/dl ABG Base Excess (-2.0-3.0) mmol/L ABG Hemoglobin (11.7-17.4) g/dL ABG Carboxyhemoglobin (0.5-1.5) % POC ABG HHb (Measured) (0-5) % ABG Methemoglobin (0.0-3.0) % ABG O2 Capacity (16-24) mL/dl Hgb O2 Saturation (95.0-98.0) % FiO2 % Sodium 144 (132-148) mmol/L Potassium 3.1 L (3.6-5.0) mmol/L Chloride 117 H (98-107) mmol/L Carbon Dioxide 18 L (21-33) mmol/L Anion Gap 12 (10-20) BUN 11 (7-21) mg/dL Creatinine 0.5 L (0.7-1.2) mg/dl Est GFR ( Amer) > 60 Est GFR (Non-Af Amer) > 60 POC Glucose (mg/dL) 119 H (65-110) mg/dL Random Glucose 136 H (70-110) mg/dL Serum Osmolality 297 (272-300) mosm/kg Calcium 8.5 (8.4-10.5) mg/dL Phosphorus (2.5-4.5) mg/dL Magnesium (1.7-2.2) mg/dL Total Bilirubin (0.2-1.3) mg/dL AST (14-36) U/L ALT (7-56) U/L Alkaline Phosphatase (38-126) U/L Total Protein (5.8-8.3) g/dL Albumin (3.0-4.8) g/dL Globulin gm/dL Albumin/Globulin Ratio (1.1-1.8) Procalcitonin (0.19-0.49) NG/ML BECKY 6 Profile (NEGATIVE) 03/25/18 03/25/18 03/25/18 Range/Units 09:37 09:10 08:11 WBC (4.5-11.0) 10^3/ul RBC (3.5-6.1) 10^6/uL Hgb (12.0-16.0) g/dL Hct (36.0-48.0) % MCV (80.0-105.0) fl MCH (25.0-35.0) pg MCHC (31.0-37.0) g/dl RDW (11.5-14.5) % Plt Count (120.0-450.0) 10^3/uL Manual Plt Count (120-450) K/mm3 MPV (7.0-11.0) fl Gran % (50.0-68.0) % Lymph % (Auto) (22.0-35.0) % [place] % (Auto) (1.0-6.0) % Eos % (Auto) (1.5-5.0) % Baso % (Auto) (0.0-3.0) % Gran # (1.4-6.5) Lymph # (Auto) (1.2-3.4) [place] # (Auto) (0.1-0.6) Eos # (Auto) (0.0-0.7) Baso # (Auto) (0.0-2.0) K/mm3 PT (9.4-12.5) SECONDS INR APTT (25.1-36.5) Seconds pCO2 (35-45) mm/Hg pO2 (80-100) mm/Hg HCO3 (21-28) mmol/L ABG pH (7.35-7.45) ABG Total CO2 (22-28) mmol.L ABG O2 Saturation (95-98) % ABG O2 Content (15-23) ML/dl ABG Base Excess (-2.0-3.0) mmol/L ABG Hemoglobin (11.7-17.4) g/dL ABG Carboxyhemoglobin (0.5-1.5) % POC ABG HHb (Measured) (0-5) % ABG Methemoglobin (0.0-3.0) % ABG O2 Capacity (16-24) mL/dl Hgb O2 Saturation (95.0-98.0) % FiO2 % Sodium (132-148) mmol/L Potassium (3.6-5.0) mmol/L Chloride (98-107) mmol/L Carbon Dioxide (21-33) mmol/L Anion Gap (10-20) BUN (7-21) mg/dL Creatinine (0.7-1.2) mg/dl Est GFR ( Amer) Est GFR (Non-Af Amer) POC Glucose (mg/dL) 121 H 129 H (65-110) mg/dL Random Glucose (70-110) mg/dL Serum Osmolality (272-300) mosm/kg Calcium (8.4-10.5) mg/dL Phosphorus (2.5-4.5) mg/dL Magnesium (1.7-2.2) mg/dL Total Bilirubin (0.2-1.3) mg/dL AST (14-36) U/L ALT (7-56) U/L Alkaline Phosphatase (38-126) U/L Total Protein (5.8-8.3) g/dL Albumin (3.0-4.8) g/dL Globulin gm/dL Albumin/Globulin Ratio (1.1-1.8) Procalcitonin 0.21 (0.19-0.49) NG/ML BECKY 6 Profile (NEGATIVE) 03/25/18 03/25/18 03/25/18 Range/Units 05:40 05:40 05:40 WBC (4.5-11.0) 10^3/ul RBC (3.5-6.1) 10^6/uL Hgb (12.0-16.0) g/dL Hct (36.0-48.0) % MCV (80.0-105.0) fl MCH (25.0-35.0) pg MCHC (31.0-37.0) g/dl RDW (11.5-14.5) % Plt Count (120.0-450.0) 10^3/uL Manual Plt Count 112 L (120-450) K/mm3 MPV (7.0-11.0) fl Gran % (50.0-68.0) % Lymph % (Auto) (22.0-35.0) % [place] % (Auto) (1.0-6.0) % Eos % (Auto) (1.5-5.0) % Baso % (Auto) (0.0-3.0) % Gran # (1.4-6.5) Lymph # (Auto) (1.2-3.4) [place] # (Auto) (0.1-0.6) Eos # (Auto) (0.0-0.7) Baso # (Auto) (0.0-2.0) K/mm3 PT 20.2 H (9.4-12.5) SECONDS INR 1.74 APTT 31.5 (25.1-36.5) Seconds pCO2 (35-45) mm/Hg pO2 (80-100) mm/Hg HCO3 (21-28) mmol/L ABG pH (7.35-7.45) ABG Total CO2 (22-28) mmol.L ABG O2 Saturation (95-98) % ABG O2 Content (15-23) ML/dl ABG Base Excess (-2.0-3.0) mmol/L ABG Hemoglobin (11.7-17.4) g/dL ABG Carboxyhemoglobin (0.5-1.5) % POC ABG HHb (Measured) (0-5) % ABG Methemoglobin (0.0-3.0) % ABG O2 Capacity (16-24) mL/dl Hgb O2 Saturation (95.0-98.0) % FiO2 % Sodium (132-148) mmol/L Potassium (3.6-5.0) mmol/L Chloride (98-107) mmol/L Carbon Dioxide (21-33) mmol/L Anion Gap (10-20) BUN (7-21) mg/dL Creatinine (0.7-1.2) mg/dl Est GFR ( Amer) Est GFR (Non-Af Amer) POC Glucose (mg/dL) (65-110) mg/dL Random Glucose (70-110) mg/dL Serum Osmolality 299 (272-300) mosm/kg Calcium (8.4-10.5) mg/dL Phosphorus (2.5-4.5) mg/dL Magnesium (1.7-2.2) mg/dL Total Bilirubin (0.2-1.3) mg/dL AST (14-36) U/L ALT (7-56) U/L Alkaline Phosphatase (38-126) U/L Total Protein (5.8-8.3) g/dL Albumin (3.0-4.8) g/dL Globulin gm/dL Albumin/Globulin Ratio (1.1-1.8) Procalcitonin (0.19-0.49) NG/ML BECKY 6 Profile (NEGATIVE) 03/25/18 03/25/18 03/25/18 Range/Units 05:40 05:40 05:30 WBC 12.1 H (4.5-11.0) 10^3/ul RBC 3.61 (3.5-6.1) 10^6/uL Hgb 11.5 L (12.0-16.0) g/dL Hct 33.7 L (36.0-48.0) % MCV 93.4 (80.0-105.0) fl MCH 31.9 (25.0-35.0) pg MCHC 34.1 (31.0-37.0) g/dl RDW 16.9 H (11.5-14.5) % Plt Count 96 L (120.0-450.0) 10^3/uL Manual Plt Count (120-450) K/mm3 MPV 10.0 (7.0-11.0) fl Gran % 81.8 H (50.0-68.0) % Lymph % (Auto) 6.9 L (22.0-35.0) % [place] % (Auto) 10.4 H (1.0-6.0) % Eos % (Auto) 0.7 L (1.5-5.0) % Baso % (Auto) 0.2 (0.0-3.0) % Gran # 9.90 H (1.4-6.5) Lymph # (Auto) 0.8 L (1.2-3.4) [place] # (Auto) 1.3 H (0.1-0.6) Eos # (Auto) 0.1 (0.0-0.7) Baso # (Auto) 0.02 (0.0-2.0) K/mm3 PT (9.4-12.5) SECONDS INR APTT (25.1-36.5) Seconds pCO2 26 L (35-45) mm/Hg pO2 56.0 L (80-100) mm/Hg HCO3 20.3 L (21-28) mmol/L ABG pH 7.50 H (7.35-7.45) ABG Total CO2 21.1 L (22-28) mmol.L ABG O2 Saturation 94.3 L (95-98) % ABG O2 Content 14.1 L (15-23) ML/dl ABG Base Excess -1.8 (-2.0-3.0) mmol/L ABG Hemoglobin 10.9 L (11.7-17.4) g/dL ABG Carboxyhemoglobin 2.2 H (0.5-1.5) % POC ABG HHb (Measured) 5.5 H (0-5) % ABG Methemoglobin 0.7 (0.0-3.0) % ABG O2 Capacity 15.0 L (16-24) mL/dl Hgb O2 Saturation 91.6 L (95.0-98.0) % FiO2 50.0 % Sodium 148 (132-148) mmol/L Potassium 3.2 L (3.6-5.0) mmol/L Chloride 120 H (98-107) mmol/L Carbon Dioxide 20 L (21-33) mmol/L Anion Gap 13 (10-20) BUN 10 (7-21) mg/dL Creatinine 0.5 L (0.7-1.2) mg/dl Est GFR ( Amer) > 60 Est GFR (Non-Af Amer) > 60 POC Glucose (mg/dL) (65-110) mg/dL Random Glucose 134 H (70-110) mg/dL Serum Osmolality (272-300) mosm/kg Calcium 8.5 (8.4-10.5) mg/dL Phosphorus 2.5 (2.5-4.5) mg/dL Magnesium 1.6 L (1.7-2.2) mg/dL Total Bilirubin 4.9 H (0.2-1.3) mg/dL AST 48 H D (14-36) U/L ALT 31 (7-56) U/L Alkaline Phosphatase 115 (38-126) U/L Total Protein 7.0 (5.8-8.3) g/dL Albumin 3.2 (3.0-4.8) g/dL Globulin 3.8 gm/dL Albumin/Globulin Ratio 0.8 L (1.1-1.8) Procalcitonin (0.19-0.49) NG/ML BECKY 6 Profile (NEGATIVE) 03/25/18 03/24/18 03/24/18 Range/Units 02:30 21:49 19:53 WBC (4.5-11.0) 10^3/ul RBC (3.5-6.1) 10^6/uL Hgb (12.0-16.0) g/dL Hct (36.0-48.0) % MCV (80.0-105.0) fl MCH (25.0-35.0) pg MCHC (31.0-37.0) g/dl RDW (11.5-14.5) % Plt Count (120.0-450.0) 10^3/uL Manual Plt Count (120-450) K/mm3 MPV (7.0-11.0) fl Gran % (50.0-68.0) % Lymph % (Auto) (22.0-35.0) % [place] % (Auto) (1.0-6.0) % Eos % (Auto) (1.5-5.0) % Baso % (Auto) (0.0-3.0) % Gran # (1.4-6.5) Lymph # (Auto) (1.2-3.4) [place] # (Auto) (0.1-0.6) Eos # (Auto) (0.0-0.7) Baso # (Auto) (0.0-2.0) K/mm3 PT (9.4-12.5) SECONDS INR APTT (25.1-36.5) Seconds pCO2 (35-45) mm/Hg pO2 (80-100) mm/Hg HCO3 (21-28) mmol/L ABG pH (7.35-7.45) ABG Total CO2 (22-28) mmol.L ABG O2 Saturation (95-98) % ABG O2 Content (15-23) ML/dl ABG Base Excess (-2.0-3.0) mmol/L ABG Hemoglobin (11.7-17.4) g/dL ABG Carboxyhemoglobin (0.5-1.5) % POC ABG HHb (Measured) (0-5) % ABG Methemoglobin (0.0-3.0) % ABG O2 Capacity (16-24) mL/dl Hgb O2 Saturation (95.0-98.0) % FiO2 % Sodium (132-148) mmol/L Potassium (3.6-5.0) mmol/L Chloride (98-107) mmol/L Carbon Dioxide (21-33) mmol/L Anion Gap (10-20) BUN (7-21) mg/dL Creatinine (0.7-1.2) mg/dl Est GFR ( Amer) Est GFR (Non-Af Amer) POC Glucose (mg/dL) 140 H 129 H (65-110) mg/dL Random Glucose (70-110) mg/dL Serum Osmolality 304 H (272-300) mosm/kg Calcium (8.4-10.5) mg/dL Phosphorus (2.5-4.5) mg/dL Magnesium (1.7-2.2) mg/dL Total Bilirubin (0.2-1.3) mg/dL AST (14-36) U/L ALT (7-56) U/L Alkaline Phosphatase (38-126) U/L Total Protein (5.8-8.3) g/dL Albumin (3.0-4.8) g/dL Globulin gm/dL Albumin/Globulin Ratio (1.1-1.8) Procalcitonin (0.19-0.49) NG/ML BECKY 6 Profile (NEGATIVE) 03/24/18 03/23/18 Range/Units 19:53 06:10 WBC (4.5-11.0) 10^3/ul RBC (3.5-6.1) 10^6/uL Hgb (12.0-16.0) g/dL Hct (36.0-48.0) % MCV (80.0-105.0) fl MCH (25.0-35.0) pg MCHC (31.0-37.0) g/dl RDW (11.5-14.5) % Plt Count (120.0-450.0) 10^3/uL Manual Plt Count (120-450) K/mm3 MPV (7.0-11.0) fl Gran % (50.0-68.0) % Lymph % (Auto) (22.0-35.0) % [place] % (Auto) (1.0-6.0) % Eos % (Auto) (1.5-5.0) % Baso % (Auto) (0.0-3.0) % Gran # (1.4-6.5) Lymph # (Auto) (1.2-3.4) [place] # (Auto) (0.1-0.6) Eos # (Auto) (0.0-0.7) Baso # (Auto) (0.0-2.0) K/mm3 PT (9.4-12.5) SECONDS INR APTT (25.1-36.5) Seconds pCO2 (35-45) mm/Hg pO2 (80-100) mm/Hg HCO3 (21-28) mmol/L ABG pH (7.35-7.45) ABG Total CO2 (22-28) mmol.L ABG O2 Saturation (95-98) % ABG O2 Content (15-23) ML/dl ABG Base Excess (-2.0-3.0) mmol/L ABG Hemoglobin (11.7-17.4) g/dL ABG Carboxyhemoglobin (0.5-1.5) % POC ABG HHb (Measured) (0-5) % ABG Methemoglobin (0.0-3.0) % ABG O2 Capacity (16-24) mL/dl Hgb O2 Saturation (95.0-98.0) % FiO2 % Sodium 147 (132-148) mmol/L Potassium 3.2 L (3.6-5.0) mmol/L Chloride 118 H (98-107) mmol/L Carbon Dioxide 22 (21-33) mmol/L Anion Gap 10 (10-20) BUN 12 (7-21) mg/dL Creatinine 0.5 L (0.7-1.2) mg/dl Est GFR ( Amer) > 60 Est GFR (Non-Af Amer) > 60 POC Glucose (mg/dL) (65-110) mg/dL Random Glucose 130 H (70-110) mg/dL Serum Osmolality (272-300) mosm/kg Calcium 8.8 (8.4-10.5) mg/dL Phosphorus (2.5-4.5) mg/dL Magnesium (1.7-2.2) mg/dL Total Bilirubin (0.2-1.3) mg/dL AST (14-36) U/L ALT (7-56) U/L Alkaline Phosphatase (38-126) U/L Total Protein (5.8-8.3) g/dL Albumin (3.0-4.8) g/dL Globulin gm/dL Albumin/Globulin Ratio (1.1-1.8) Procalcitonin (0.19-0.49) NG/ML BECKY 6 Profile Negative (NEGATIVE) Laboratory Results - last 24 hr 03/23/18 03/24/18 03/24/18 06:10 19:53 19:53 WBC RBC Hgb Hct MCV MCH MCHC RDW Plt Count Manual Plt Count MPV Gran % Lymph % (Auto) [place] % (Auto) Eos % (Auto) Baso % (Auto) Gran # Lymph # (Auto) [place] # (Auto) Eos # (Auto) Baso # (Auto) PT INR APTT pCO2 pO2 HCO3 ABG pH ABG Total CO2 ABG O2 Saturation ABG O2 Content ABG Base Excess ABG Hemoglobin ABG Carboxyhemoglobin POC ABG HHb (Measured) ABG Methemoglobin ABG O2 Capacity Hgb O2 Saturation FiO2 Sodium 147 Potassium 3.2 L Chloride 118 H Carbon Dioxide 22 Anion Gap 10 BUN 12 Creatinine 0.5 L Est GFR ( Amer) > 60 Est GFR (Non-Af Amer) > 60 POC Glucose (mg/dL) Random Glucose 130 H Serum Osmolality 304 H Calcium 8.8 Phosphorus Magnesium Total Bilirubin AST ALT Alkaline Phosphatase Total Protein Albumin Globulin Albumin/Globulin Ratio Procalcitonin BECKY 6 Profile Negative 03/24/18 03/25/18 03/25/18 21:49 02:30 05:30 WBC RBC Hgb Hct MCV MCH MCHC RDW Plt Count Manual Plt Count MPV Gran % Lymph % (Auto) [place] % (Auto) Eos % (Auto) Baso % (Auto) Gran # Lymph # (Auto) [place] # (Auto) Eos # (Auto) Baso # (Auto) PT INR APTT pCO2 26 L pO2 56.0 L HCO3 20.3 L ABG pH 7.50 H ABG Total CO2 21.1 L ABG O2 Saturation 94.3 L ABG O2 Content 14.1 L ABG Base Excess -1.8 ABG Hemoglobin 10.9 L ABG Carboxyhemoglobin 2.2 H POC ABG HHb (Measured) 5.5 H ABG Methemoglobin 0.7 ABG O2 Capacity 15.0 L Hgb O2 Saturation 91.6 L FiO2 50.0 Sodium Potassium Chloride Carbon Dioxide Anion Gap BUN Creatinine Est GFR ( Amer) Est GFR (Non-Af Amer) POC Glucose (mg/dL) 129 H 140 H Random Glucose Serum Osmolality Calcium Phosphorus Magnesium Total Bilirubin AST ALT Alkaline Phosphatase Total Protein Albumin Globulin Albumin/Globulin Ratio Procalcitonin BECKY 6 Profile 03/25/18 03/25/18 03/25/18 05:40 05:40 05:40 WBC 12.1 H RBC 3.61 Hgb 11.5 L Hct 33.7 L MCV 93.4 MCH 31.9 MCHC 34.1 RDW 16.9 H Plt Count 96 L Manual Plt Count 112 L MPV 10.0 Gran % 81.8 H Lymph % (Auto) 6.9 L [place] % (Auto) 10.4 H Eos % (Auto) 0.7 L Baso % (Auto) 0.2 Gran # 9.90 H Lymph # (Auto) 0.8 L [place] # (Auto) 1.3 H Eos # (Auto) 0.1 Baso # (Auto) 0.02 PT INR APTT pCO2 pO2 HCO3 ABG pH ABG Total CO2 ABG O2 Saturation ABG O2 Content ABG Base Excess ABG Hemoglobin ABG Carboxyhemoglobin POC ABG HHb (Measured) ABG Methemoglobin ABG O2 Capacity Hgb O2 Saturation FiO2 Sodium 148 Potassium 3.2 L Chloride 120 H Carbon Dioxide 20 L Anion Gap 13 BUN 10 Creatinine 0.5 L Est GFR ( Amer) > 60 Est GFR (Non-Af Amer) > 60 POC Glucose (mg/dL) Random Glucose 134 H Serum Osmolality Calcium 8.5 Phosphorus 2.5 Magnesium 1.6 L Total Bilirubin 4.9 H AST 48 H D ALT 31 Alkaline Phosphatase 115 Total Protein 7.0 Albumin 3.2 Globulin 3.8 Albumin/Globulin Ratio 0.8 L Procalcitonin BECKY 6 Profile 03/25/18 03/25/18 03/25/18 05:40 05:40 08:11 WBC RBC Hgb Hct MCV MCH MCHC RDW Plt Count Manual Plt Count MPV Gran % Lymph % (Auto) [place] % (Auto) Eos % (Auto) Baso % (Auto) Gran # Lymph # (Auto) [place] # (Auto) Eos # (Auto) Baso # (Auto) PT 20.2 H INR 1.74 APTT 31.5 pCO2 pO2 HCO3 ABG pH ABG Total CO2 ABG O2 Saturation ABG O2 Content ABG Base Excess ABG Hemoglobin ABG Carboxyhemoglobin POC ABG HHb (Measured) ABG Methemoglobin ABG O2 Capacity Hgb O2 Saturation FiO2 Sodium Potassium Chloride Carbon Dioxide Anion Gap BUN Creatinine Est GFR ( Amer) Est GFR (Non-Af Amer) POC Glucose (mg/dL) 129 H Random Glucose Serum Osmolality 299 Calcium Phosphorus Magnesium Total Bilirubin AST ALT Alkaline Phosphatase Total Protein Albumin Globulin Albumin/Globulin Ratio Procalcitonin BECKY 6 Profile 03/25/18 03/25/18 03/25/18 09:10 09:37 11:30 WBC RBC Hgb Hct MCV MCH MCHC RDW Plt Count Manual Plt Count MPV Gran % Lymph % (Auto) [place] % (Auto) Eos % (Auto) Baso % (Auto) Gran # Lymph # (Auto) [place] # (Auto) Eos # (Auto) Baso # (Auto) PT INR APTT pCO2 pO2 HCO3 ABG pH ABG Total CO2 ABG O2 Saturation ABG O2 Content ABG Base Excess ABG Hemoglobin ABG Carboxyhemoglobin POC ABG HHb (Measured) ABG Methemoglobin ABG O2 Capacity Hgb O2 Saturation FiO2 Sodium 144 Potassium 3.1 L Chloride 117 H Carbon Dioxide 18 L Anion Gap 12 BUN 11 Creatinine 0.5 L Est GFR ( Amer) > 60 Est GFR (Non-Af Amer) > 60 POC Glucose (mg/dL) 121 H Random Glucose 136 H Serum Osmolality Calcium 8.5 Phosphorus Magnesium Total Bilirubin AST ALT Alkaline Phosphatase Total Protein Albumin Globulin Albumin/Globulin Ratio Procalcitonin 0.21 BECKY 6 Profile 03/25/18 03/25/18 11:30 13:53 WBC RBC Hgb Hct MCV MCH MCHC RDW Plt Count Manual Plt Count MPV Gran % Lymph % (Auto) [place] % (Auto) Eos % (Auto) Baso % (Auto) Gran # Lymph # (Auto) [place] # (Auto) Eos # (Auto) Baso # (Auto) PT INR APTT pCO2 pO2 HCO3 ABG pH ABG Total CO2 ABG O2 Saturation ABG O2 Content ABG Base Excess ABG Hemoglobin ABG Carboxyhemoglobin POC ABG HHb (Measured) ABG Methemoglobin ABG O2 Capacity Hgb O2 Saturation FiO2 Sodium Potassium Chloride Carbon Dioxide Anion Gap BUN Creatinine Est GFR ( Amer) Est GFR (Non-Af Amer) POC Glucose (mg/dL) 119 H Random Glucose Serum Osmolality 297 Calcium Phosphorus Magnesium Total Bilirubin AST ALT Alkaline Phosphatase Total Protein Albumin Globulin Albumin/Globulin Ratio Procalcitonin BECKY 6 Profile Attending/Attestation - Attestation I have personally seen and examined this patient.: Yes I have fully participated in the care of the patient.: Yes I have reviewed all pertinent clinical information: Yes Notes (Text): 03/25/18 18:[address] Laguna's note
[2018-03-25] MEDS ORDERED: levETIRAcetam 1,000 MG in Sodium Chloride 0.9% 100 ML IV ONE (10:07)
--- NOTE | 2018-03-25 10:13 | CP.PCM.PN ---
<Mohamud Freeman - Last Filed: 03/25/18 10:08> Subjective - Date & Time of Evaluation Date of Evaluation: 03/25/18 Time of Evaluation: 10:09 - Subjective Subjective: GI Fellow PGY4 Objective - Vital Signs/Intake and Output Vital Signs (last 24 hours): Temp Pulse Resp BP Pulse Ox 101.8 F H 85 30 H 125/68 95 03/25/18 09:20 03/25/18 09:20 03/25/18 00:43 03/25/18 09:15 03/25/18 09:20 Intake and Output: 03/25/18 03/25/18 06:59 18:59 Intake Total 1420 Balance 1420 - Medications Medications: Current Medications Famotidine (Pepcid) 20 mg IVP DAILY [facility] Last Admin: 03/25/18 09:01 Dose: 20 mg Levetiracetam (Keppra 500mg Ivpb) 500 mg in 100 mls @ 460 mls/hr IVPB Q12 [facility] Last Admin: 03/25/18 09:03 Dose: 460 mls/hr Nicardipine HCl (Cardene Iv Premix) 20 mg in 200 mls @ 50 mls/hr IV .Q4H PRN; Protocol; 5 MG/HR PRN Reason: TITRATE PER MD ORDER Last Admin: 03/24/18 15:58 Dose: 1 mg/hr, 10 mls/hr Dextrose/Sodium Chloride (Dextrose 5%/0.9% Ns 1000 Ml) 1,000 mls @ 100 mls/hr IV .Q10H [facility] Last Admin: 03/25/18 02:16 Dose: 100 mls/hr Potassium Chloride (Potassium Chloride 20 Meq/100 Ml) 20 meq in 100 mls @ 50 mls/hr IVPB Q2H [facility] Stop: 03/25/18 12:44 Last Admin: 03/25/18 08:59 Dose: 50 mls/hr Acetaminophen (Ofirmev) 1,000 mg in 100 mls @ 400 mls/hr IVPB Q6H PRN PRN Reason: t more then 99.5 Stop: 03/27/18 08:39 Last Admin: 03/25/18 08:49 Dose: 400 mls/hr Aztreonam (Azactam 1 Gm) 100 mls @ 100 mls/hr IVPB Q8 [facility] PRN Reason: Protocol Stop: 04/01/18 09:01 Vancomycin HCl (Vancomycin 1gm) 1 gm in 250 mls @ 167 mls/hr IVPB Q12H [facility] PRN Reason: Protocol Last Admin: 03/25/18 08:59 Dose: 167 mls/hr Magnesium Sulfate/Dextrose (Magnesium Sulfate 1 Gm/100 Ml D5w) 1 gm in 100 mls @ 100 mls/hr IVPB ONCE ONE Stop: 03/25/18 10:17 Levetiracetam 1,000 mg/ Sodium (Chloride) 110 mls @ 440 mls/hr IV ONCE ONE Stop: 03/25/18 10:21 Insulin Human Regular (Humulin R Low) 0 units SC Q6H [facility] PRN Reason: Protocol Last Admin: 03/25/18 09:37 Dose: Not Given Vitamin A (Vitamin A & D Oint Ud Foilpak) 1 ea TOP Q12 PRN PRN Reason: apply to dry lips Last Admin: 03/24/18 10:19 Dose: 1 ea - Labs Labs: 03/25/18 05:40 03/25/18 05:40 PT 20.2 SECONDS (9.4-12.5) H 03/25/18 05:40 INR 1.74 03/25/18 05:40 APTT 31.5 Seconds (25.1-36.5) 03/25/18 05:40 - Constitutional Appears: Well, Chronically Ill - Eye Exam Eye Exam: Normal appearance - ENT Exam ENT Exam: Mucous Membranes Moist - Respiratory Exam Additional comments: Intubated - Cardiovascular Exam Cardiovascular Exam: REGULAR RHYTHM - GI/Abdominal Exam GI & Abdominal Exam: Normal Bowel Sounds - Extremities Exam Extremities Exam: Normal Inspection - Neurological Exam Neurological Exam: Altered. absent: Alert, Oriented x3 - Psychiatric Exam Psychiatric exam: Flat Affect - Skin Skin Exam: Dry, Normal Color Assessment and Plan - Assessment and Plan (Free Text) Assessment: 62F with hx variceal bands presenting with AMS, seizures and found to have ICH and some herniation, now intubated. 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 Start lactulose 20mg BID. Titrate does to TWO BMs per day. Avoid dehydration. -Start carvedilol 3.25mg BID for esophogeal varices. -PPI IV daily. -Monitor LFTs, but appears stable for now. -Depending on recovery and family wishes, she may need PEG placement. <Jean-Claude Vernon V - Last Filed: 03/25/18 21:57> Objective - Vital Signs/Intake and Output Vital Signs (last 24 hours): Temp Pulse Resp BP Pulse Ox 98.6 F 77 30 H 135/74 95 03/25/18 13:00 03/25/18 18:00 03/25/18 00:43 03/25/18 18:39 03/25/18 13:00 Intake and Output: 03/25/18 03/26/18 18:59 06:59 Intake Total 1460 Output Total 1250 Balance 210 - Medications Medications: Current Medications Carvedilol (Coreg) 3.125 mg PO BID [facility] Last Admin: 03/25/18 17:18 Dose: 3.125 mg Famotidine (Pepcid) 20 mg IVP DAILY [facility] Last Admin: 03/25/18 09:01 Dose: 20 mg Nicardipine HCl (Cardene Iv Premix) 20 mg in 200 mls @ 50 mls/hr IV .Q4H PRN; Protocol; 5 MG/HR PRN Reason: TITRATE PER MD ORDER Last Titration: 03/25/18 11:00 Dose: Infused Acetaminophen (Ofirmev) 1,000 mg in 100 mls @ 400 mls/hr IVPB Q6H PRN PRN Reason: t more then 99.5 Stop: 03/27/18 08:39 Last Admin: 03/25/18 08:49 Dose: 400 mls/hr Aztreonam (Azactam 1 Gm) 100 mls @ 100 mls/hr IVPB Q8 [facility] PRN Reason: Protocol Stop: 04/01/18 09:01 Last Admin: 03/25/18 21:17 Dose: 100 mls/hr Vancomycin HCl (Vancomycin 1gm) 1 gm in 250 mls @ 167 mls/hr IVPB Q12H [facility] PRN Reason: Protocol Last Admin: 03/25/18 21:00 Dose: 167 mls/hr Levetiracetam 750 mg/ Sodium (Chloride) 107.5 mls @ 460 mls/hr IV Q12 [facility] Last Admin: 03/25/18 21:16 Dose: 460 mls/hr Potassium Chloride 20 meq/ (Dextrose/Sodium Chloride) 1,010 mls @ 100 mls/hr IV .Q10H6M [facility] Last Admin: 03/25/18 17:18 Dose: 100 mls/hr Potassium Chloride (Potassium Chloride 20 Meq/100 Ml) 20 meq in 100 mls @ 50 mls/hr IVPB Q2H [facility] Stop: 03/25/18 22:29 Last Admin: 03/25/18 21:03 Dose: 50 mls/hr Insulin Human Regular (Humulin R Low) 0 units SC Q6H [facility] PRN Reason: Protocol Last Admin: 03/25/18 20:30 Dose: Not Given Lactulose (Enulose) 20 gm PO BID [facility] Last Admin: 03/25/18 17:20 Dose: 20 gm Vitamin A (Vitamin A & D Oint Ud Foilpak) 1 ea TOP Q12 PRN PRN Reason: apply to dry lips Last Admin: 03/24/18 10:19 Dose: 1 ea - Labs Labs: 03/25/18 05:40 03/25/18 11:30 PT 20.2 SECONDS (9.4-12.5) H 03/25/18 05:40 INR 1.74 03/25/18 05:40 APTT 31.5 Seconds (25.1-36.5) 03/25/18 05:40 Attending/Attestation - Attestation I have personally seen and examined this patient.: Yes I have fully participated in the care of the patient.: Yes I have reviewed all pertinent clinical information, including history, physical exam and plan: Yes Notes (Text): This is an addendum to GI progress report dictated by the GI Fellow.The patient was seen and examined earlier. Medical records, lab studies, imagings were reviewed. Last 24 hours events reviewed. Agreed with the above treatment plan as outlined in GI Fellow 's notes with the addition of the following patient is tolerating tube feeding Glucerna On lactulose 20 g by mouth twice a day recommend to titrate the dose to keep the bowel move less than 2 Close follow-up electrolytes platelets and hemoglobin Discussed with the nursing staff earlier today in ICU 03/25/18 21:55
--- NOTE | 2018-03-25 10:14 | RAD ---
Date of service: 03/25/2018 HISTORY: intubated COMPARISON: 03/24/2028 FINDINGS: LUNGS: No definite infiltrate. Opacity at right base may be dependent layering posterior pleural fluid. No left-sided infiltrate. PLEURA: Small right pleural effusion persists. No left pleural effusion. Probable clearing of previous small left pleural effusion. CARDIOVASCULAR: Normal heart size. ET tube, double off tube and right IJ multi lumen central venous catheter are unchanged. OSSEOUS STRUCTURES: No significant abnormalities. VISUALIZED UPPER ABDOMEN: Normal. OTHER FINDINGS: None. IMPRESSION: Persistent small right pleural effusion. No definite left pleural effusion. No definite infiltrate. Lines and tubes unchanged.
[2018-03-25] MEDS: Aztreonam 1 Gm in NS 100mL 100 ML IVPB SCH ×3 (10:20→21:17)
--- NOTE | 2018-03-25 10:20 | CP.PCM.PN ---
Subjective - Date & Time of Evaluation Date of Evaluation: 03/25/18 Time of Evaluation: 10:16 - Subjective Subjective: Heme/Onc Progress Note for Dr. Medellin -- Nate Russo DO PGY2 Patient seen and examined at bedside. Patient admitted for status epilepticus 2/ 2 intracranial hemorrhage. Patient is currently intubated and not awake, but off sedation. Patient currently being monitored via video EEG. ROS unobtainable due to patient's current mental status. Objective - Vital Signs/Intake and Output Vital Signs (last 24 hours): Temp Pulse Resp BP Pulse Ox 101.8 F H 85 30 H 125/68 95 03/25/18 09:20 03/25/18 09:20 03/25/18 00:43 03/25/18 09:15 03/25/18 09:20 Intake and Output: 03/25/18 03/25/18 06:59 18:59 Intake Total 1420 Balance 1420 - Medications Medications: Current Medications Famotidine (Pepcid) 20 mg IVP DAILY [facility] Last Admin: 03/25/18 09:01 Dose: 20 mg Nicardipine HCl (Cardene Iv Premix) 20 mg in 200 mls @ 50 mls/hr IV .Q4H PRN; Protocol; 5 MG/HR PRN Reason: TITRATE PER MD ORDER Last Admin: 03/24/18 15:58 Dose: 1 mg/hr, 10 mls/hr Dextrose/Sodium Chloride (Dextrose 5%/0.9% Ns 1000 Ml) 1,000 mls @ 100 mls/hr IV .Q10H [facility] Last Admin: 03/25/18 02:16 Dose: 100 mls/hr Potassium Chloride (Potassium Chloride 20 Meq/100 Ml) 20 meq in 100 mls @ 50 mls/hr IVPB Q2H [facility] Stop: 03/25/18 12:44 Last Admin: 03/25/18 08:59 Dose: 50 mls/hr Acetaminophen (Ofirmev) 1,000 mg in 100 mls @ 400 mls/hr IVPB Q6H PRN PRN Reason: t more then 99.5 Stop: 03/27/18 08:39 Last Admin: 03/25/18 08:49 Dose: 400 mls/hr Aztreonam (Azactam 1 Gm) 100 mls @ 100 mls/hr IVPB Q8 [facility] PRN Reason: Protocol Stop: 04/01/18 09:01 Vancomycin HCl (Vancomycin 1gm) 1 gm in 250 mls @ 167 mls/hr IVPB Q12H [facility] PRN Reason: Protocol Last Admin: 03/25/18 08:59 Dose: 167 mls/hr Magnesium Sulfate/Dextrose (Magnesium Sulfate 1 Gm/100 Ml D5w) 1 gm in 100 mls @ 100 mls/hr IVPB ONCE ONE Stop: 03/25/18 10:17 Levetiracetam 1,000 mg/ Sodium (Chloride) 110 mls @ 440 mls/hr IV ONCE ONE Stop: 03/25/18 10:21 Levetiracetam 750 mg/ Sodium (Chloride) 107.5 mls @ 460 mls/hr IV Q12 [facility] Insulin Human Regular (Humulin R Low) 0 units SC Q6H [facility] PRN Reason: Protocol Last Admin: 03/25/18 09:37 Dose: Not Given Vitamin A (Vitamin A & D Oint Ud Foilpak) 1 ea TOP Q12 PRN PRN Reason: apply to dry lips Last Admin: 03/24/18 10:19 Dose: 1 ea - Labs Labs: 03/25/18 05:40 03/25/18 05:40 PT 20.2 SECONDS (9.4-12.5) H 03/25/18 05:40 INR 1.74 03/25/18 05:40 APTT 31.5 Seconds (25.1-36.5) 03/25/18 05:40 - Constitutional Appears: Other (intubated) - Head Exam Head Exam: NORMAL INSPECTION - Eye Exam Eye Exam: Normal appearance - ENT Exam Additional comments: ET tube in place - Neck Exam Neck Exam: Normal Inspection - Cardiovascular Exam Cardiovascular Exam: RRR, +S1, +S2. absent: Gallop, Rubs, Murmur - GI/Abdominal Exam GI & Abdominal Exam: Soft. absent: Distended, Guarding, Tenderness, Rebound - Extremities Exam Extremities Exam: Normal Inspection - Back Exam Back Exam: NORMAL INSPECTION - Neurological Exam Neurological Exam: absent: Alert, Awake, Oriented x3 - Skin Skin Exam: Dry, Intact, Normal Color Assessment and Plan - Assessment and Plan (Free Text) Assessment: 62 yo F with PMH of EtOH abuse, cirrhosis, esophageal varices, thrombocytopenia , spinal stenosis, arthritis, and degenerative joint disease admitted to ICU for status epilepticus 2/2 2.8x2.8cm left occipital lobe hemorrage found on CT with subsequent expansion on follow up CT (5.3x3.3cm). Repeat CT ordered for today. Heme/onc consulted due to thrombocytopenia, which appears to be chronic likely 2/2 cirrhosis. Plan: - Maintain platelets > 100,000 in setting of ICH - Transfused 9 units of platelets and 4 FFP overall - Manual platelet count today 112 - F/u anti-platelet antibodies, BECKY, flow cytometry - Further management per Neuro, ICU, and primary Case discussed with attending. Nate Russo DO PGY2
--- NOTE | 2018-03-25 10:57 | CP.PCM.CON ---
History of Present Illness - History of Present Illness History of Present Illness: 62 year old female with PMH of ethanol abuse, liver cirrhosis with esophageal varices S/P banding in 2015, arthritis, history of spinal stenosis was brought in by family to [facility] [place], [place] because of unresponsiveness and shaking. History of present illness is taken from medical records and from ICU staff since there are no family members available currently. She w thought to have had a seizure at the time of presentation in the ED, and CT scan of the head revealed a left sided occipital intra-cranial hemorrhage. She has been in the ICU since then, intubated and on video EEG, being monitored for possible seizures. She started having low grade fevers yesterday and had a fever of 101.8 F today with leukocytosis as well. She has no vomiting currently, no diarrhea. She has had a right sided CVC on the neck placed during this admission. Infectious diseases consult is requested to further evaluate and manage. Review of Systems - Review of Systems Systems not reviewed;Unavailable: Intubated Past Patient History - Infectious Disease Hx of Infectious Diseases: None - Tetanus Immunizations Tetanus Immunization: Unknown - Past Social History Smoking Status: Light Smoker < 10 Cigarettes Daily - CARDIAC Hx Cardiac Disorders: No - PULMONARY Hx Respiratory Disorders: No - NEUROLOGICAL Other/Comment: Spinal Stenosis , T7-8 Paracentral disc Protusion , C5-6 Disc Bulge , C3 Arthropy on right side - HEENT Hx HEENT Problems: No - RENAL Hx Chronic Kidney Disease: No - ENDOCRINE/METABOLIC Hx Endocrine Disorders: No - HEMATOLOGICAL/ONCOLOGICAL Hx Blood Transfusions: Yes - INTEGUMENTARY Hx Dermatological Problems: No - MUSCULOSKELETAL/RHEUMATOLOGICAL Hx Arthritis: Yes Hx Degenerative Joint Disease: Yes Hx Fractures: Yes (Tibial Plateu and Right Hip) Hx Osteoarthritis: Yes Hx Osteoporosis: Yes Hx Spinal Stenosis: Yes Other/Comment: Tibial plateu and Right Hip Fracture - GASTROINTESTINAL Other/Comment: Alcohol Cirrhosis , Esophageal Varices , Peptic Ulcer , Erosive esophagitis - GENITOURINARY/GYNECOLOGICAL Hx Genitourinary Disorders: No - PSYCHIATRIC Hx Substance Use: No - SURGICAL HISTORY Hx Musculoskeletal Surgery: Yes (Right Hip Replacement) - ANESTHESIA Hx Anesthesia Reactions: No Hx Malignant Hyperthermia: No Meds Allergies/Adverse Reactions: Allergies Allergy/AdvReac Type Severity Reaction Status Date / Time Penicillins Allergy RASH Verified 03/21/18 13:59 - Medications Medications: Current Medications Famotidine (Pepcid) 20 mg IVP DAILY [facility] Last Admin: 03/24/18 10:19 Dose: 20 mg Levetiracetam (Keppra 500mg Ivpb) 500 mg in 100 mls @ 460 mls/hr IVPB Q12 [facility] Last Admin: 03/24/18 21:43 Dose: 460 mls/hr Nicardipine HCl (Cardene Iv Premix) 20 mg in 200 mls @ 50 mls/hr IV .Q4H PRN; Protocol; 5 MG/HR PRN Reason: TITRATE PER MD ORDER Last Admin: 03/24/18 15:58 Dose: 1 mg/hr, 10 mls/hr Dextrose/Sodium Chloride (Dextrose 5%/0.9% Ns 1000 Ml) 1,000 mls @ 100 mls/hr IV .Q10H [facility] Last Admin: 03/25/18 02:16 Dose: 100 mls/hr Potassium Chloride (Potassium Chloride 20 Meq/100 Ml) 20 meq in 100 mls @ 50 mls/hr IVPB Q2H [facility] Stop: 03/25/18 12:44 Acetaminophen (Ofirmev) 1,000 mg in 100 mls @ 400 mls/hr IVPB Q6H PRN PRN Reason: t more then 99.5 Stop: 03/27/18 08:39 Last Admin: 03/25/18 08:49 Dose: 400 mls/hr Aztreonam (Azactam 1 Gm) 100 mls @ 100 mls/hr IVPB Q8 [facility] PRN Reason: Protocol Stop: 03/25/18 14:59 Vancomycin HCl (Vancomycin 1gm) 1 gm in 250 mls @ 167 mls/hr IVPB Q12H [facility] PRN Reason: Protocol Insulin Human Regular (Humulin R Low) 0 units SC Q6H [facility] PRN Reason: Protocol Last Admin: 03/25/18 02:30 Dose: Not Given Vitamin A (Vitamin A & D Oint Ud Foilpak) 1 ea TOP Q12 PRN PRN Reason: apply to dry lips Last Admin: 03/24/18 10:19 Dose: 1 ea Physical Exam - Constitutional Appears: Other (intubated, sedated) - Head Exam Additional comments: dressings over the cranium, dry and in place - ENT Exam Additional comments: ET tube in place - Neck Exam Additional comments: right IJ TLC in place, site clean and intact - Respiratory Exam Respiratory Exam: Decreased Breath Sounds, Rhonchi (scattered) - Cardiovascular Exam Cardiovascular Exam: +S1, +S2 - GI/Abdominal Exam GI & Abdominal Exam: Soft. absent: Tenderness Results - Vital Signs Recent Vital Signs: Last Vital Signs Temp 98.8 F 03/25/18 00:00 Pulse 85 03/25/18 05:30 Resp 30 H 03/25/18 00:43 BP 122/60 03/25/18 05:30 Pulse Ox 93 L 03/25/18 05:30 - Labs Result Diagrams: 03/25/18 05:40 03/25/18 05:40 Labs: Laboratory Results - last 24 hr 03/24/18 03/24/18 03/24/18 07:43 11:19 11:20 WBC RBC Hgb Hct MCV MCH MCHC RDW Plt Count MPV Gran % Lymph % (Auto) [place] % (Auto) Eos % (Auto) Baso % (Auto) Gran # Lymph # (Auto) [place] # (Auto) Eos # (Auto) Baso # (Auto) PT INR APTT pCO2 24 L pO2 55.0 L HCO3 19.2 L ABG pH 7.51 H ABG Total CO2 19.9 L ABG O2 Saturation 93.3 L ABG O2 Content 13.4 L ABG Base Excess -2.6 L ABG Hemoglobin 10.6 L ABG Carboxyhemoglobin 2.3 H POC ABG HHb (Measured) 6.5 H ABG Methemoglobin 1.1 ABG O2 Capacity 14.4 L Hgb O2 Saturation 90.0 L FiO2 40.0 Sodium Potassium Chloride Carbon Dioxide Anion Gap BUN Creatinine Est GFR ( Amer) Est GFR (Non-Af Amer) POC Glucose (mg/dL) 82 104 Random Glucose Serum Osmolality Calcium Phosphorus Magnesium Total Bilirubin AST ALT Alkaline Phosphatase Total Protein Albumin Globulin Albumin/Globulin Ratio 03/24/18 03/24/18 03/24/18 11:45 11:45 17:46 WBC RBC Hgb Hct MCV MCH MCHC RDW Plt Count MPV Gran % Lymph % (Auto) [place] % (Auto) Eos % (Auto) Baso % (Auto) Gran # Lymph # (Auto) [place] # (Auto) Eos # (Auto) Baso # (Auto) PT INR APTT pCO2 pO2 HCO3 ABG pH ABG Total CO2 ABG O2 Saturation ABG O2 Content ABG Base Excess ABG Hemoglobin ABG Carboxyhemoglobin POC ABG HHb (Measured) ABG Methemoglobin ABG O2 Capacity Hgb O2 Saturation FiO2 Sodium 150 H Potassium 3.2 L Chloride 119 H Carbon Dioxide 21 Anion Gap 13 BUN 11 Creatinine 0.5 L Est GFR ( Amer) > 60 Est GFR (Non-Af Amer) > 60 POC Glucose (mg/dL) 129 H Random Glucose 107 Serum Osmolality 301 H Calcium 8.8 Phosphorus Magnesium Total Bilirubin AST ALT Alkaline Phosphatase Total Protein Albumin Globulin Albumin/Globulin Ratio 03/24/18 03/24/18 03/24/18 17:59 19:53 19:53 WBC 11.9 H D RBC 3.37 L Hgb 10.6 L Hct 31.6 L MCV 93.8 MCH 31.5 MCHC 33.5 RDW 17.1 H Plt Count 103 L MPV 9.3 Gran % Lymph % (Auto) [place] % (Auto) Eos % (Auto) Baso % (Auto) Gran # Lymph # (Auto) [place] # (Auto) Eos # (Auto) Baso # (Auto) PT INR APTT pCO2 pO2 HCO3 ABG pH ABG Total CO2 ABG O2 Saturation ABG O2 Content ABG Base Excess ABG Hemoglobin ABG Carboxyhemoglobin POC ABG HHb (Measured) ABG Methemoglobin ABG O2 Capacity Hgb O2 Saturation FiO2 Sodium 147 Potassium 3.2 L Chloride 118 H Carbon Dioxide 22 Anion Gap 10 BUN 12 Creatinine 0.5 L Est GFR ( Amer) > 60 Est GFR (Non-Af Amer) > 60 POC Glucose (mg/dL) Random Glucose 130 H Serum Osmolality 304 H Calcium 8.8 Phosphorus Magnesium Total Bilirubin AST ALT Alkaline Phosphatase Total Protein Albumin Globulin Albumin/Globulin Ratio 03/24/18 03/25/18 03/25/18 21:49 02:30 05:30 WBC RBC Hgb Hct MCV MCH MCHC RDW Plt Count MPV Gran % Lymph % (Auto) [place] % (Auto) Eos % (Auto) Baso % (Auto) Gran # Lymph # (Auto) [place] # (Auto) Eos # (Auto) Baso # (Auto) PT INR APTT pCO2 26 L pO2 56.0 L HCO3 20.3 L ABG pH 7.50 H ABG Total CO2 21.1 L ABG O2 Saturation 94.3 L ABG O2 Content 14.1 L ABG Base Excess -1.8 ABG Hemoglobin 10.9 L ABG Carboxyhemoglobin 2.2 H POC ABG HHb (Measured) 5.5 H ABG Methemoglobin 0.7 ABG O2 Capacity 15.0 L Hgb O2 Saturation 91.6 L FiO2 50.0 Sodium Potassium Chloride Carbon Dioxide Anion Gap BUN Creatinine Est GFR ( Amer) Est GFR (Non-Af Amer) POC Glucose (mg/dL) 129 H 140 H Random Glucose Serum Osmolality Calcium Phosphorus Magnesium Total Bilirubin AST ALT Alkaline Phosphatase Total Protein Albumin Globulin Albumin/Globulin Ratio 03/25/18 03/25/18 03/25/18 05:40 05:40 05:40 WBC 12.1 H RBC 3.61 Hgb 11.5 L Hct 33.7 L MCV 93.4 MCH 31.9 MCHC 34.1 RDW 16.9 H Plt Count 96 L MPV 10.0 Gran % 81.8 H Lymph % (Auto) 6.9 L [place] % (Auto) 10.4 H Eos % (Auto) 0.7 L Baso % (Auto) 0.2 Gran # 9.90 H Lymph # (Auto) 0.8 L [place] # (Auto) 1.3 H Eos # (Auto) 0.1 Baso # (Auto) 0.02 PT 20.2 H INR 1.74 APTT 31.5 pCO2 pO2 HCO3 ABG pH ABG Total CO2 ABG O2 Saturation ABG O2 Content ABG Base Excess ABG Hemoglobin ABG Carboxyhemoglobin POC ABG HHb (Measured) ABG Methemoglobin ABG O2 Capacity Hgb O2 Saturation FiO2 Sodium 148 Potassium 3.2 L Chloride 120 H Carbon Dioxide 20 L Anion Gap 13 BUN 10 Creatinine 0.5 L Est GFR ( Amer) > 60 Est GFR (Non-Af Amer) > 60 POC Glucose (mg/dL) Random Glucose 134 H Serum Osmolality Calcium 8.5 Phosphorus 2.5 Magnesium 1.6 L Total Bilirubin 4.9 H AST 48 H D ALT 31 Alkaline Phosphatase 115 Total Protein 7.0 Albumin 3.2 Globulin 3.8 Albumin/Globulin Ratio 0.8 L 03/25/18 05:40 WBC RBC Hgb Hct MCV MCH MCHC RDW Plt Count MPV Gran % Lymph % (Auto) [place] % (Auto) Eos % (Auto) Baso % (Auto) Gran # Lymph # (Auto) [place] # (Auto) Eos # (Auto) Baso # (Auto) PT INR APTT pCO2 pO2 HCO3 ABG pH ABG Total CO2 ABG O2 Saturation ABG O2 Content ABG Base Excess ABG Hemoglobin ABG Carboxyhemoglobin POC ABG HHb (Measured) ABG Methemoglobin ABG O2 Capacity Hgb O2 Saturation FiO2 Sodium Potassium Chloride Carbon Dioxide Anion Gap BUN Creatinine Est GFR ( Amer) Est GFR (Non-Af Amer) POC Glucose (mg/dL) Random Glucose Serum Osmolality 299 Calcium Phosphorus Magnesium Total Bilirubin AST ALT Alkaline Phosphatase Total Protein Albumin Globulin Albumin/Globulin Ratio Assessment & Plan - Assessment and Plan (Free Text) Plan: Assessment New onset systemic inflammatory response syndrome in this patient with acute left sided intra-cranial hemorrhage and ventilator-dependent respiratory failure , R/O sepsis due HCAP, R/O bacteremia (patient has central venous catheter); R/ O central fever hyperbilirubinemia probably related to chronic liver disease / liver cirrhosis ethanol abuse liver cirrhosis with esophageal varices S/P banding in 2014 arthritis history of spinal stenosis Plan Started Vancomycin and Azactam pending blood cx, urine cx, PCT, repeat CXR discussed with Dr. Laguna follow up further plans of Neurology and Neurosurgery HIV test is non-reactive
[2018-03-25 11:52] LABS: BLOOD UREA NITROGEN 11 mg/dL (7-21); CALCIUM 8.5 mg/dL (8.4-10.5); GFR NON-AFRICAN AMERICAN > 60
--- NOTE | 2018-03-25 12:34 | PCM.VEEG ---
Video EEG - Procedure Start Date: 03/24/18 Start Time: 19:45 End Date: 03/25/18 End Time: 07:20 - Interpretation Description of the study: Video EEG EEG Finding during wakefulness: Mild diffuse slowing Bi frontal slowing Not well developed PDR EEG Finding during sleep: Normal sleep not seen Interictal non-epileptiform abnormalities: Occasional bi-frontal sharps with triphaisc Morphology Left Hemispheric slowing Interictal epileptiform abnormalities: None Ictal epileptiform abnormalities: none Induction procedures: none - Impression Impression: Moderate diffuse non specific diffuse disturbance of cortical activity Left hemispheric slowing No seizures Not in status epilepticus
--- NOTE | 2018-03-25 12:59 | RAD ---
Date of service: 03/25/2018 HISTORY: OGT placement confirm COMPARISON: Earlier same day FINDINGS: LUNGS: Improving perihilar infiltrate. Endotracheal tube and right internal jugular line unchanged. PLEURA: No significant pleural effusion identified, no pneumothorax apparent. CARDIOVASCULAR: Normal. OSSEOUS STRUCTURES: No significant abnormalities. VISUALIZED UPPER ABDOMEN: Normal. OTHER FINDINGS: None. IMPRESSION: Nasogastric tube in satisfactory position
--- NOTE | 2018-03-25 15:06 | CARD ---
APPROVED REPORT Date of service: 03/25/2018 EXAM: Two-dimensional and M-mode echocardiogram with Doppler and color Doppler. INDICATION CHF 2D DIMENSIONS Left Atrium (2D)3.8 (1.6-4.0cm)IVSd1.4 (0.7-1.1cm) LVDd4.3 (3.9-5.9cm)PWd1.3 (0.7-1.1cm) LVDs2.6 (2.5-4.0cm)FS (%) 38.7 % LVEF (%)69.3 (>50%) M-Mode DIMENSIONS Aortic Root3.20 (2.2-3.7cm)Aortic Cusp Exc.2.40 (1.5-2.0cm) Aortic Valve AoV Peak Kmowueog607.0cm/Harleen Peak GR.25mmHg Mitral Valve MV E Zxssgsck23.3cm/sMV E Peak Gr.94mmHgMV A Bfkqfyrk98.1cm/s E/A ratio1.3 TDI Lateral E' Peak V14.00cm/sMedial E' Peak V7.80cm/sE/Lateral E'6.5 E/Medial E'11.6Lateral S' Peak V9.7cm/s Tricuspid Valve TR Peak [id number]/sRAP [id number] Peak Gr.36mmHg [id number] LEFT VENTRICLE The left ventricle is normal size. There is mild concentric left ventricular hypertrophy. The left ventricular function is normal. The left ventricular ejection fraction is within the normal range. There is normal LV segmental wall motion. Transmitral Doppler flow pattern is Grade II-pseudonormal filling dynamics. RIGHT VENTRICLE The right ventricle is normal size. There is normal right ventricular wall thickness. The right ventricular systolic function is normal. ATRIA The left atrium size is normal. The right atrium size is normal. AORTIC VALVE The aortic valve is moderately sclerotic. No aortic regurgitation is present. MITRAL VALVE The mitral valve is mildly thickened. There is no mitral valve regurgitation noted. There is no mitral valve stenosis. TRICUSPID VALVE The tricuspid valve is normal in structure. There is mild tricuspid regurgitation. There is mild to moderate pulmonary hypertension. GREAT VESSELS The aortic root is normal in size. <Conclusion> The left ventricle is normal size. There is mild concentric left ventricular hypertrophy. The left ventricular function is normal. The left ventricular ejection fraction is within the normal range. There is normal LV segmental wall motion. Transmitral Doppler flow pattern is Grade II-pseudonormal filling dynamics. There is mild tricuspid regurgitation. There is mild to moderate pulmonary hypertension. The aortic valve is moderately sclerotic.
--- NOTE | 2018-03-25 15:25 | PN ---
Copied To: Champ Laguna MD Attending MD: Champ Laguna MD DATE: 03/25/2018 SUBJECTIVE: The patient is seen and examined at bedside. She is off of propofol and Versed drip. She has not received any sedation overnight. She is still not responsive to painful and verbal stimuli. Her pupils on the left side is about 3 mm and reactive to light and on the right side about 4 mm and reactive to light as well. The patient appears to be comfortable. The patient is on pressure support 15/5 with FiO2 of 50%. On that setting, her oxygen saturation varies between 94% to 96%. Her respiratory rate varies between 20 and 30. She is on Cardene drip at 1 mg/hour. PHYSICAL EXAMINATION: VITAL SIGNS: Her blood pressure 137/68. End-tidal CO2 on the monitor 25. Her pCO2 is 26. Heart rate 102. ENT: Head and neck atraumatic. LUNGS: Few crackles bilaterally. HEART: Regular rate and rhythm. S1 and S2 normal. ABDOMEN: Soft, nontender and nondistended. MUSCULOSKELETAL: Trace bilateral pedal and ankle edema. NEURO: The patient was not observed moving all extremities. SKIN: Moist. PSYCH: The patient is not responsive to painful stimuli. LABORATORY DATA: ABG 7.5/; however, O2 sat is 94 on ABG. WBC 12.1, hemoglobin 11.5, platelet count 96,000. Sodium 148, potassium 3.2, chloride 120, carbon dioxide 20, BUN 10, creatinine 0.5, glucose 134, serum osmolality 299, AST 48, ALT 31, total bilirubin 4.9. MEDICATIONS: D5 normal saline at 100 mL per hour, Pepcid, regular insulin sliding scale low protocol, Keppra, nicardipine drip, potassium supplementation, aztreonam and vancomycin. ASSESSMENT AND PLAN: This is a 62-year-old lady who presented with intracranial bleed complicated by tonic-clonic seizures requiring intubation for benzodiazepines drips and airway protection. At present time, the patient is on cont EEG monitoring. She is off of benzodiazepines; however, did not show signs of improvement in mental status. 1. Neurologic: The patient is nonresponsive to painful stimuli. We are waiting for Neurology followup as to whether the patient had seizures overnight or not. The patient is on Keppra. Benzodiazepines and propofol are off. 2. Pulmonary: The patient has chest x-ray showing bilateral vascular congestion. Echocardiogram is pending. We will try to maintain euvolemia and at present time, I will hold IV fluids and give a little bit of Lasix. We will monitor urine output as well. We will continue with pressure support trial as long as the patient tolerates it well. PH is trending down to better range. We will aim at 7.35 to 7.45 range. The patient spiked fever for the first time now and we will aggressively control that, that will help with BP and HR control as well. Head of bed elevated at >35 degrees. Oral hygiene. Mechanical deep venous thrombosis prophylaxis and gastrointestinal prophylaxis as a part of ventilator-associated pneumonia bundle. 3. Cardiovascular: The patient is on Cardene drip; however, blood pressure appears to be within normal limits. Echocardiogram is pending. 4. Infectious disease: The patient spiked fever, likely central in origin, but cant rule out infection. Blood culture and urine culture will be sent. The patient is ALLERGIC TO PENICILLINS. We will start aztreonam and vancomycin. Procalcitonin will be ordered as well. ID Service will be contacted. We will aggressively control fever with Tylenol IV and cooling blankets. 5. Gastrointestinal: We will start enteral nutrition to prevent gut gui translocation into the bloodstream. We will continue with gastrointestinal prophylaxis. The patient does have underlying alcohol liver disease that would explain some transaminitis and bilirubin elevation. Abdominal ultrasound was done on 03/22/2018 and revealed echogenic liver suggesting hepatic parenchymal disease with fatty infiltration, hepatomegaly, splenomegaly; however, unremarkable gallbladder and common bile duct. 6. Hematology: The patient has somewhat rising leukocytosis; however, minimally so. It may be related to central origin or less likely infection. The patient will be covered with antibiotics. Thrombocytopenia at level of 96. Likely relates to some liver insufficiency and bone marrow suppression with chronic alcohol abuse. 7. Endocrine: We will maintain euglycemia. 8. Renal: We will maintain mean arterial pressure more than 65. Avoid hyperchloremia and nephrotoxic medication, but not at expense of treating underlying disease. Aggressive lites correction I will touch base with Neurology Service about timing for prognostication, Once this conversation took place, we will touch base with family about advance directives. Spoke with Dr. Nicholas-->cont EEG for another 24 hrs before prognostication and re -eval mental status in am ccm time 40 min Champ Laguna MD [id number]
[2018-03-25] MEDS: Potassium Chloride 20 MEQ in Dextrose 5%/0.9% NS 1,000 ML IV SCH (17:18)
--- NOTE | 2018-03-25 20:53 | PN ---
Copied To: Eleni Lobo MD Attending MD: Eleni Lobo MD DATE: 03/25/2018 SUBJECTIVE: The patient is seen lying in bed in the ICU. She is unresponsive. She is here now off sedation. Her EEG has been completed. She remains unresponsive. Her Keppra has been changed to 750 mg every 12 hours. In light of her elevated ammonia level, she has been started on lactulose 20 g b.i.d. Her echocardiogram done this morning shows normal left ventricular size, mild concentric left ventricular hypertrophy, normal ejection fraction, mild tricuspid regurg, moderate pulmonary hypertension. PHYSICAL EXAMINATION: GENERAL: Elderly lady lying in bed in the ICU, on mechanical ventilation. VITAL SIGNS: Blood pressure 116/66, heart rate 75, respiratory rate 30, temperature 98.6. HEENT: Normocephalic, atraumatic, positive pallor. NECK: Supple, no JVD. LUNGS: Bilateral equal air entry, bilateral equal expansion, no rales appreciated anteriorly. CARDIAC: S1 and S2, regular rate and rhythm, no murmur, no rub. ABDOMEN: Soft, nondistended, nontender, bowel sounds present. EXTREMITIES: No lower extremity edema. INTAKE AND OUTPUT: 3081/1800. LABORATORY DATA: WBC 12, hemoglobin 11.5, hematocrit 34, platelets 96. Sodium 144, potassium 3.1, chloride 117, CO2 of 18, anion gap 9, BUN 11, creatinine 0.5, glucose 136, calcium 8.5. Urinalysis: Yellow, clear; pH 6, specific 1.025, protein 100, glucose negative, ketones negative, leukocyte esterase negative. Hepatitis profile negative. Mycoplasma negative. Blood cultures negative. Urine culture negative. CURRENT MEDICATIONS: Azactam 1 g every 8 hours, nicardipine 5 mg per hour, Coreg 3.125 b.i.d., D5 normal saline at 100, lactulose 20 b.i.d., insulin, Keppra, Ofirmev, Pepcid, and vancomycin 1 g every 12 hours. ASSESSMENT: 1. Intracranial bleed, the patient was on hypertonic saline. Now she is off it. She still remains unresponsive. She is not receiving any sedation at this time. She had a video EEG, which did not show any seizure activity. She does have diffuse cerebral slowing. 2. History of alcoholic liver disease, cirrhosis of the liver, varices, splenomegaly. 3. Anemia, thrombocytopenia. 4. Hypernatremia, resolved. 5. Hypokalemia. 6. Hyperchloremic non-anion gap metabolic acidosis. 7. Leukocytosis. 8. On empiric antibiotics because of fever. PLAN: 1. Add potassium to IV fluids. 2. Agree with empiric antibiotics. 3. Continue Cardene drip, blood pressure is acceptable. 4. Avoid nephrotoxins. 5. Monitor daily labs. 6. Follow up repeat cultures. Case is discussed with ICU residents at bedside at length. More than 35 minutes was in the care of this critically ill patient. Eleni Lobo MD
[2018-03-26] MEDS: Insulin Reg-LOW-Coverage SC SCH ×4 (02:00→20:15)
[2018-03-26 05:20] LABS: ARTERIAL BLOOD GAS HCO3 17.8 mmol/L (21-28); ARTERIAL BLOOD GAS HEMOGLOBIN 9.8 g/dL (11.7-17.4); ARTERIAL BLOOD GAS O2 CAPACITY 13.4 mL/dl (16-24); ARTERIAL BLOOD GAS O2 CONTENT 13.4 ML/dl (15-23); ARTERIAL BLOOD GAS O2 SAT 99.8 % (95-98); ARTERIAL BLOOD GAS PCO2 25 mm/Hg (35-45); ARTERIAL BLOOD GAS PH 7.46 (7.35-7.45); ARTERIAL BLOOD GAS TCO2 18.6 mmol.L (22-28)
[2018-03-26] MEDS: Potassium Chloride 20 MEQ in Dextrose 5%/0.9% NS 1,000 ML IV SCH (05:50)
[2018-03-26] MEDS: Aztreonam 1 Gm in NS 100mL 100 ML IVPB SCH ×3 (05:55→21:41)
--- NOTE | 2018-03-26 06:44 | CP.PCM.PN ---
<Mohamud Freeman - Last Filed: 03/26/18 08:57> Subjective - Date & Time of Evaluation Date of Evaluation: 03/26/18 Time of Evaluation: 06:39 - Subjective Subjective: GI Fellow PGY4 Patient intubated, sedated. Fevers yesterday, started on IV ofirmev and aztreonam. Tolerating tube feeds. She opens her eyes to verbal stimulation. 1 BM yesterday. Objective - Vital Signs/Intake and Output Vital Signs (last 24 hours): Temp Pulse Resp BP Pulse Ox 100.6 F H 84 30 H 110/55 L 95 03/26/18 03:50 03/26/18 03:50 03/26/18 02:00 03/26/18 03:45 03/26/18 03:50 Intake and Output: 03/25/18 03/26/18 18:59 06:59 Intake Total 1460 Output Total 1250 Balance 210 - Medications Medications: Current Medications Carvedilol (Coreg) 3.125 mg PO BID [facility] Last Admin: 03/25/18 17:18 Dose: 3.125 mg Famotidine (Pepcid) 20 mg IVP DAILY [facility] Last Admin: 03/25/18 09:01 Dose: 20 mg Nicardipine HCl (Cardene Iv Premix) 20 mg in 200 mls @ 50 mls/hr IV .Q4H PRN; Protocol; 5 MG/HR PRN Reason: TITRATE PER MD ORDER Last Titration: 03/25/18 11:00 Dose: Infused Acetaminophen (Ofirmev) 1,000 mg in 100 mls @ 400 mls/hr IVPB Q6H PRN PRN Reason: t more then 99.5 Stop: 03/27/18 08:39 Last Admin: 03/26/18 01:53 Dose: 400 mls/hr Aztreonam (Azactam 1 Gm) 100 mls @ 100 mls/hr IVPB Q8 [facility] PRN Reason: Protocol Stop: 04/01/18 09:01 Last Admin: 03/25/18 21:17 Dose: 100 mls/hr Vancomycin HCl (Vancomycin 1gm) 1 gm in 250 mls @ 167 mls/hr IVPB Q12H [facility] PRN Reason: Protocol Last Admin: 03/25/18 21:00 Dose: 167 mls/hr Levetiracetam 750 mg/ Sodium (Chloride) 107.5 mls @ 460 mls/hr IV Q12 [facility] Last Admin: 03/25/18 21:16 Dose: 460 mls/hr Potassium Chloride 20 meq/ (Dextrose/Sodium Chloride) 1,010 mls @ 100 mls/hr IV .Q10H6M [facility] Last Admin: 03/25/18 17:18 Dose: 100 mls/hr Insulin Human Regular (Humulin R Low) 0 units SC Q6H [facility] PRN Reason: Protocol Last Admin: 03/26/18 02:00 Dose: Not Given Lactulose (Enulose) 20 gm PO BID [facility] Last Admin: 03/25/18 17:20 Dose: 20 gm Vitamin A (Vitamin A & D Oint Ud Foilpak) 1 ea TOP Q12 PRN PRN Reason: apply to dry lips Last Admin: 03/24/18 10:19 Dose: 1 ea - Labs Labs: 03/25/18 05:40 03/25/18 11:30 PT 20.2 SECONDS (9.4-12.5) H 03/25/18 05:40 INR 1.74 03/25/18 05:40 APTT 31.5 Seconds (25.1-36.5) 03/25/18 05:40 - Constitutional Appears: Non-toxic, No Acute Distress, Chronically Ill - Eye Exam Eye Exam: Normal appearance - Respiratory Exam Respiratory Exam: Clear to Ausculation Bilateral, NORMAL BREATHING PATTERN - Cardiovascular Exam Cardiovascular Exam: REGULAR RHYTHM, +S1, +S2 - GI/Abdominal Exam GI & Abdominal Exam: Distended, Soft, Normal Bowel Sounds. absent: Tenderness - Extremities Exam Extremities Exam: Normal Inspection - Neurological Exam Neurological Exam: Altered, Awake - Psychiatric Exam Psychiatric exam: Flat Affect - Skin Skin Exam: Dry Assessment and Plan - Assessment and Plan (Free Text) Assessment: 62F with hx variceal bands presenting with AMS, seizures and found to have ICH and some herniation, now intubated. #Decompensated etoh cirrhosis - MELD 15 on admission. #E. Varices s/p bands 2014 #Colonic AVMs #Pancytopenia #Seizure disorder #Acute ICH PLAN: -Replace PLT per ICU -Ammonia 39. Lactulose 20mg BID. Titrate dose to TWO BMs per day. Avoid dehydration. -Start carvedilol 3.25mg BID for esophogeal varices. -PPI IV daily. -Recommend discontinuing Ofirmev in setting of severe hepatic impairment. Monitor LFTs, MELD now 19. -Depending on recovery and family wishes, she may need PEG placement. <Jean-Claude Vernon V - Last Filed: 03/27/18 23:46> Objective - Vital Signs/Intake and Output Vital Signs (last 24 hours): Temp Pulse Resp BP Pulse Ox 100.4 F H 84 25 H 143/76 100 03/27/18 20:00 03/27/18 20:00 03/27/18 19:50 03/27/18 19:45 03/27/18 19:50 Intake and Output: 03/27/18 03/28/18 18:59 06:59 Intake Total 480 Output Total 900 Balance -420 - Medications Medications: Current Medications Carvedilol (Coreg) 3.125 mg PO BID [facility] Last Admin: 03/27/18 17:49 Dose: 3.125 mg Famotidine (Pepcid) 20 mg IVP DAILY [facility] Last Admin: 03/27/18 11:00 Dose: 20 mg Nicardipine HCl (Cardene Iv Premix) 20 mg in 200 mls @ 50 mls/hr IV .Q4H PRN; Protocol; 5 MG/HR PRN Reason: TITRATE PER MD ORDER Last Titration: 03/25/18 11:00 Dose: Infused Aztreonam (Azactam 1 Gm) 100 mls @ 100 mls/hr IVPB Q8 [facility] PRN Reason: Protocol Stop: 04/01/18 09:01 Last Admin: 03/27/18 21:38 Dose: 100 mls/hr Vancomycin HCl (Vancomycin 1gm) 1 gm in 250 mls @ 167 mls/hr IVPB Q12H [facility] PRN Reason: Protocol Last Admin: 03/27/18 20:47 Dose: 167 mls/hr Levetiracetam 1,000 mg/ Sodium (Chloride) 110 mls @ 460 mls/hr IV Q12 [facility] Last Admin: 03/27/18 21:55 Dose: 460 mls/hr Dexmedetomidine HCl (Precedex 400mcg/100ml) 400 mcg in 100 mls @ 3.128 mls/hr IV .Q24H PRN; Protocol; 0.2 MCG/KG/HR PRN Reason: Agitation Last Admin: 03/26/18 23:10 Dose: 0.2 mcg/kg/hr, 3.128 mls/hr Insulin Human Regular (Humulin R Low) 0 units SC Q6H [facility] PRN Reason: Protocol Last Admin: 03/27/18 19:53 Dose: Not Given Vitamin A (Vitamin A & D Oint Ud Foilpak) 1 ea TOP Q12 PRN PRN Reason: apply to dry lips Last Admin: 03/24/18 10:19 Dose: 1 ea - Labs Labs: 03/27/18 05:40 03/27/18 05:40 PT 20.2 SECONDS (9.4-12.5) H 03/25/18 05:40 INR 1.74 03/25/18 05:40 APTT 31.5 Seconds (25.1-36.5) 03/25/18 05:40 Attending/Attestation - Attestation I have personally seen and examined this patient.: Yes I have fully participated in the care of the patient.: Yes I have reviewed all pertinent clinical information, including history, physical exam and plan: Yes Notes (Text): This is an addendum to GI progress report dictated by the GI Fellow.The patient was seen and examined earlier. Medical records, lab studies, imagings were reviewed. Last 24 hours events reviewed. Agreed with the above treatment plan as outlined in GI Fellow 's notes with the addition of the following patient is being weaned off from vent On lactulose dose being titrated to bowel movements Follow-up ammonia level 03/27/18 23:20
[2018-03-26 07:02] LABS: BASO # 0.02 K/mm3 (0.0-2.0); BASO % 0.2 % (0.0-3.0); EOS # 0.2 (0.0-0.7); EOS % 1.4 % (1.5-5.0); GRAN # 9.73 (1.4-6.5); GRAN % 80.1 % (50.0-68.0); HEMOGLOBIN 9.9 g/dL (12.0-16.0); LYMPH # 0.9 (1.2-3.4); MEAN CELL VOLUME 93.6 fl (80.0-105.0); MEAN CORPUSCULAR HEMOGLOBIN 31.6 pg (25.0-35.0); MEAN CORPUSCULAR HGB CONC 33.8 g/dl (31.0-37.0); MEAN PLATELET VOLUME 10.2 fl (7.0-11.0); MONO # 1.4 (0.1-0.6); MONO % 11.3 % (1.0-6.0); RBC 3.13 10^6/uL (3.5-6.1); RED CELL DISTRIBUTION WIDTH 17.1 % (11.5-14.5); WHITE BLOOD COUNT 12.1 10^3/ul (4.5-11.0)
[2018-03-26 08:08] LABS: ALB/GLOB RATIO 0.7 (1.1-1.8); ALBUMIN 2.8 g/dL (3.0-4.8); ALT/SGPT 23 U/L (7-56); AST/SGOT 39 U/L (14-36); BLOOD UREA NITROGEN 12 mg/dL (7-21); CALCIUM 8.3 mg/dL (8.4-10.5); GFR NON-AFRICAN AMERICAN > 60
--- NOTE | 2018-03-26 08:27 | CP.PCM.PN ---
Subjective - Date & Time of Evaluation Date of Evaluation: 03/26/18 Time of Evaluation: 10:15 - Subjective Subjective: PGY-1 Jaimie Butler D.O. Neurology progress note for Dr. Stearns's service: Patient is seen and examined this morning. No clinical seizure activity reported. Patient is off sedation. She is still intubated and has an NGT in place. She is moving spontaneously and has her eyes open. She is able to follow most commands. ROS unobtainable due to patient's mental state. Objective - Vital Signs/Intake and Output Vital Signs (last 24 hours): Temp Pulse Resp BP Pulse Ox 99.5 F 83 20 133/71 97 03/26/18 06:45 03/26/18 06:45 03/26/18 07:07 03/26/18 06:45 03/26/18 07:07 Intake and Output: 03/26/18 03/26/18 06:59 18:59 Intake Total 1985 Output Total 1700 Balance 285 - Medications Medications: Current Medications Carvedilol (Coreg) 3.125 mg PO BID [facility] Last Admin: 03/25/18 17:18 Dose: 3.125 mg Famotidine (Pepcid) 20 mg IVP DAILY [facility] Last Admin: 03/25/18 09:01 Dose: 20 mg Nicardipine HCl (Cardene Iv Premix) 20 mg in 200 mls @ 50 mls/hr IV .Q4H PRN; Protocol; 5 MG/HR PRN Reason: TITRATE PER MD ORDER Last Titration: 03/25/18 11:00 Dose: Infused Acetaminophen (Ofirmev) 1,000 mg in 100 mls @ 400 mls/hr IVPB Q6H PRN PRN Reason: t more then 99.5 Stop: 03/27/18 08:39 Last Admin: 03/26/18 01:53 Dose: 400 mls/hr Aztreonam (Azactam 1 Gm) 100 mls @ 100 mls/hr IVPB Q8 [facility] PRN Reason: Protocol Stop: 04/01/18 09:01 Last Admin: 03/26/18 05:55 Dose: 100 mls/hr Vancomycin HCl (Vancomycin 1gm) 1 gm in 250 mls @ 167 mls/hr IVPB Q12H [facility] PRN Reason: Protocol Last Admin: 03/25/18 21:00 Dose: 167 mls/hr Levetiracetam 750 mg/ Sodium (Chloride) 107.5 mls @ 460 mls/hr IV Q12 [facility] Last Admin: 03/25/18 21:16 Dose: 460 mls/hr Potassium Chloride 20 meq/ (Dextrose/Sodium Chloride) 1,010 mls @ 100 mls/hr IV .Q10H6M [facility] Last Admin: 03/26/18 05:50 Dose: 100 mls/hr Insulin Human Regular (Humulin R Low) 0 units SC Q6H [facility] PRN Reason: Protocol Last Admin: 03/26/18 02:00 Dose: Not Given Lactulose (Enulose) 20 gm PO BID [facility] Last Admin: 03/25/18 17:20 Dose: 20 gm Vitamin A (Vitamin A & D Oint Ud Foilpak) 1 ea TOP Q12 PRN PRN Reason: apply to dry lips Last Admin: 03/24/18 10:19 Dose: 1 ea - Labs Labs: 03/26/18 06:00 03/26/18 06:00 PT 20.2 SECONDS (9.4-12.5) H 03/25/18 05:40 INR 1.74 03/25/18 05:40 APTT 31.5 Seconds (25.1-36.5) 03/25/18 05:40 - Constitutional Appears: No Acute Distress, Older Than Stated Age - Eye Exam Eye Exam: PERRL Additional comments: not tracking - ENT Exam ENT Exam: Mucous Membranes Moist Additional comments: endotracheal tube and NGT in place - Neck Exam Neck Exam: Normal Inspection - Respiratory Exam Additional comments: on ventilator - Cardiovascular Exam Cardiovascular Exam: REGULAR RHYTHM - GI/Abdominal Exam GI & Abdominal Exam: Soft - Rectal Exam Rectal Exam: Deferred - Extremities Exam Extremities Exam: Normal Capillary Refill, Normal Inspection - Neurological Exam Neurological Exam: Alert, Altered, Reflexes Normal. absent: Motor Sensory Deficit Additional comments: improving- much more responsive follows most commands moves all limbs on command and spontaneously - Skin Skin Exam: Dry, Intact, Normal Color, Warm Assessment and Plan - Assessment and Plan (Free Text) Assessment: Patient is a 62 yo female with a history of alcohol abuse who presented after witnessed seizure activity at home. CT head revealed acute L occipital hemorrhage with initial increase in size and edema and herniation. Subsequent CT shows stable size. Will obtain MRI. Patient is currently intubated and being managed in the ICU. No intervention by neurosurgery indicated at this time. She is being monitored by continuous video EEG. She is now off sedation and beginning to respond. No clinical seizure activity observed. Keppra dose increased today. Consider mass underlying hemorrhage- potentially mets (melanoma , breast, thyroid). No discrete liver mass visualized on u/s. No AVM/venous anomaly seen on CTA. Plan: Seizure, new onset- 2/2 intracranial L occipital hemorrhage with possible underlying mass +/- low platelets +/- alcohol withdrawal - CT head on admission 03/21: Hemorrhage is noted within the medial left occipital lobe measuring approximately 2.8 x 2.8 cm with associated edema/necrosis. This finding exerts mass effect on the atrium of the ventricles anterior laterally. Location of this hemorrhage is atypical for hypertensive hemorrhage. Considerations include atypical hypertensive hemorrhage, underlying vascular lesion, hemorrhagic tumor is considered less likely. - Repeat CT head 03/22: Within the left occipital parietal lobe there is increasing region of hemorrhage measuring approximately 5.3 x 3.3 cm, previously approximately 2.2 x 2.2 cm. Interval development of intraventricular extension of hemorrhage involving the lateral and 3rd ventricles. Increasing dilatation of the left lateral ventricle suggests a degree of CSF flow obstruction. Spleen and left occipital parietal low-attenuation consistent with edema/infarction. - Repeat CT head 03/24: Stable appearance of left parietal hemorrhage. - CTA head and neck: Slightly prominent vessels in the left occipital lobe around the left occipital parenchymal hemorrhage without definite CTA evidence of AVM or other vascular anomaly. No evidence of aneurysm. No evidence of major vascular occlusion or critical stenosis. - MRI brain 03/26: acute hemorrhage unchanged in size, moderate amount of surrounding vasogenic edema, no evidence of underlying tumor - Continuous EEG ~36 hours (03/24-03/26): Occasional bi-frontal sharps with triphaisc Morphology, Left Hemispheric slowing -->consistent with toxic metabolic encephalopathy - Seizure precautions - Maintain SBP 110s-140s- Cardene drip discontinued due to hypo-normotensive - HOB elevated >30 degrees - Increase Keppra to 1000 mg IV BID - Continue to monitor off sedation - Attempt extubation - Neurosurgery consulted (Dr. Post)- no intervention at this time, no role for steroids Alcohol use disorder- h/o esophageal varices with banding, current liver pathology - Management per primary team and GI - Abd u/s: Hepatomegaly. Splenomegaly. Echogenic liver may be seen in setting of hepatic parenchymal disease or fatty infiltration. Nodular hepatic contour. Correlate clinically for cirrhosis. Small ascites. - BAL <10 - Transaminitis - Hepatitis panel negative - B12, folate wnl - Elevated ammonia (43)- currently on lactulose 20 mg PO BID - Recommend increase of lactulose and follow-up level in AM - Coreg 3.125 mg PO BID - Recommend CT A/P SIRS - Management as per primary team and ID - CXR 03/25: Persistent small right pleural effusion. No definite left pleural effusion. No definite infiltrate. - CXR 03/26: B/l perihilar infiltrates unchanged - HIV negative - Temperature improving with IV tylenol - Currently on aztreonam and vancomycin Thrombocytopenia, chronic (as low as 38 in 06/2015)- s/p 9 units platelets, 4 units FFP - Management as per primary team and hem/onc- rec maintain >100 - BECKY negative Case discussed with attending, Dr. Stearns.
--- NOTE | 2018-03-26 09:05 | PN ---
DATE: 03/25/2018 DAILY PROGRESS NOTE SUBJECTIVE: The patient is a 62-year-old female who suffered an intracranial bleed while at home. She is known to have a history of gastritis, esophageal varices, alcoholic cirrhosis of the liver, thrombocytopenia. She claims to be alcohol free for the past several years. She is status post hip and knee replacement. When admitted, the patient was intubated and admitted to the Intensive Care Unit. She was found to have O positive type blood. She was thrombocytopenic during the hospital stay, total of 6 units of platelets were transfused. She also received fresh frozen plasma for elevated PT/INR in the 1.4-1.6 range. Her blood pressure has been monitored. The patient has been sedated. When seen today, the patient is slightly more arousable. She opens her eyes and responds to tactile stimuli. She does not however track with her eyes. The CAT scan initially showed an increase in size of the bleed to 2.5 x 2.5 cm to 5-6 cm diameter, however, a third followup CAT scan of the head showed this to be stable and no longer increasing in size. PHYSICAL EXAMINATION: VITAL SIGNS: Her blood pressure is 132/65 and heart rate is 85. LUNGS: Clear anteriorly. HEART: Regular. ABDOMEN: Soft and nontender. LABORATORY STUDIES: This morning show the white blood cell count to be 12.1, hemoglobin and hematocrit are 11.5 and 33.7 respectively, platelet count is 112. PT/INR is 1.74, total bilirubin is 4.9. Sodium is 148, potassium 3.2, blood urea nitrogen is 10, creatinine 0.5. ASSESSMENT AND PLAN: I updated the patient's , Tong as to her condition. I explained we will be attempting to wean the patient off the ventilator over the next few days, we will be hoping to avoid tracheostomy as the patient has been hospitalized and intubated for 4 days so far. The patient's head was bandaged to hold the EEG leads in place. Constant EEG monitoring is being done as the patient is followed by Neurology and Neurosurgery. Of note, I also received a call from woman named, Stephany who identified herself as the patient's daughter. She is apparently estranged from the patient and her as per the patient's . She has not talked to her mother in the past 2 years. However, the Tong gave me permission to discuss the case with the daughter, Stephany, and inform her of her mother's condition. Zane Bass MD PANCHO
[2018-03-26] MEDS: Vancomycin 1gm in NS 250ml 1 GM/250 ML BAG IVPB SCH ×2 (09:09→21:29)
[2018-03-26] MEDS ORDERED: Potassium Phosphate 3 mmol/ml Inj IV ONE (09:15)
--- NOTE | 2018-03-26 09:21 | CP.CCUPN ---
<Mary Mena - Last Filed: 03/26/18 11:46> CCU Subjective - Physician Review Subjective (Free Text): ICU Progress note for Dr. Luz Elena Mena, PGY 1 Patient seen and examined at bedside this Am. T max 101.7, ofirmev given with improvement. Assessment limited d/t intubation. Patient is arousable, following commands and moving limbs bilaterally. No seizure activity observed overnight. 03/26/18 09:18 03/26/18 11:46 CCU Objective - Vital Signs / Intake & Output Vital Signs (Last 4 hours): Vital Signs Temp Pulse Resp BP Pulse Ox 03/26/18 07:07 20 97 03/26/18 06:45 99.5 F 83 133/71 96 03/26/18 06:40 99.3 F 85 97 03/26/18 06:30 99.5 F 87 134/78 94 L 03/26/18 06:20 99.9 F H 80 98 03/26/18 06:15 136/75 03/26/18 06:14 100.0 F H 84 98 03/26/18 06:10 99.9 F H 84 96 03/26/18 06:00 100.2 F H 86 20 133/74 96 03/26/18 05:50 100.2 F H 86 96 03/26/18 05:45 100.2 F H 87 132/66 93 L 03/26/18 05:40 100.2 F H 88 96 03/26/18 05:30 100.2 F H 93 H 124/67 94 L 03/26/18 05:20 100.2 F H 88 96 Intake and Output (Last 8hrs): Intake & Output 03/25/18 03/26/18 03/26/18 22:59 06:59 14:59 Intake Total 1260 1985 Output Total 1250 1700 Balance 10 285 Weight 137 lb 14.4 oz Intake: IV 1200 0 Left Hand 1200 0 Right Antecubital 0 Oral 0 Tube Feeding 60 260 TPN/PPN 0 Blood Product 0 Lipid 0 Albumin 0 Other 1725 Output: Urine 1250 1700 Urethral ([place]) 1250 1700 Stool 0 Urine/Stool Mix 0 Emesis 0 Oral Regurgitation 0 Other 0 Other: # Voids Urethral ([place]) 0 # Bowel Movements 3 - Physical Exam Head: Positive for: Atraumatic, Normocephalic Pupils: Positive for: PERRL, Sluggish Mouth: Positive for: Other (Some oropharyngeal trauma and bleeding 2/2 intubation; ET tube in place ) Respiratory/Chest: Positive for: Good Air Exchange, Decreased Breath Sounds ( RLL decreased breath sounds). Negative for: Respiratory Distress Cardiovascular: Positive for: Regular Rate and Rhythm, Normal S1, S2 Abdomen: Positive for: Distention (nontympanic), Normal Bowel Sounds. Negative for: Tenderness, Guarding Upper Extremity: Positive for: Normal Inspection, NORMAL PULSES. Negative for: Edema Lower Extremity: Positive for: Normal Inspection, NORMAL PULSES. Negative for: Edema Neurological: Positive for: Other (intubated and sedated, no twitching noted) Skin: Positive for: Warm, Dry, Normal Color Psychiatric: Positive for: Other (arousable but otherwise somewhat lethargic) - Medications Active Medications: Active Medications Generic Name Dose Route Start Last Admin Trade Name Freq PRN Reason Stop Dose Admin Carvedilol 3.125 mg 03/25/18 18:00 03/25/18 17:18 Coreg PO 3.125 mg BID STEVEN Administration Famotidine 20 mg 03/23/18 10:00 03/25/18 09:01 Pepcid IVP 20 mg DAILY STEVEN Administration Nicardipine HCl 20 mg in 200 mls @ 50 mls/hr 03/24/18 07:57 03/25/18 11:00 Cardene Iv Premix IV Infused .Q4H PRN Titration TITRATE PER MD ORDER Protocol 5 MG/HR Acetaminophen 1,000 mg in 100 mls @ 400 mls/hr 03/25/18 08:38 03/26/18 01:53 Ofirmev IVPB 03/27/18 08:39 400 mls/hr Q6H PRN Administration t more then 99.5 Aztreonam 100 mls @ 100 mls/hr 03/25/18 09:00 03/26/18 05:55 Azactam 1 Gm IVPB 04/01/18 09:01 100 mls/hr Q8 STEVEN Administration Protocol Vancomycin HCl 1 gm in 250 mls @ 167 mls/hr 03/25/18 09:00 03/26/18 09:09 Vancomycin 1gm IVPB 167 mls/hr Q12H STEVEN Administration Protocol Levetiracetam 750 mg/ Sodium 107.5 mls @ 460 mls/hr 03/25/18 22:00 03/25/18 21:16 Chloride IV 460 mls/hr Q12 STEVEN Administration Insulin Human Regular 0 units 03/24/18 14:00 03/26/18 08:52 Humulin R Low SC Not Given Q6H STEVEN Protocol Lactulose 20 gm 03/25/18 10:30 03/25/18 17:20 Enulose PO 20 gm BID STEVEN Administration Potassium Phosphate 30 mmole 03/26/18 09:15 Potassium Phosphate IV 03/26/18 09:16 ONCE ONE Vitamin A 1 ea 03/23/18 17:50 03/24/18 10:19 Vitamin A & D Oint Ud Foilpak TOP 1 ea Q12 PRN Administration apply to dry lips - Patient Studies Lab Studies: Microbiology Studies 03/21/18 18:30 Blood Culture - Preliminary Blood-Venous NO GROWTH AFTER 4 DAYS 03/21/18 18:00 Blood Culture - Preliminary Blood-Venous NO GROWTH AFTER 4 DAYS Lab Studies 03/26/18 03/26/18 03/26/18 Range/Units 06:00 06:00 06:00 WBC 12.1 H (4.5-11.0) 10^3/ul RBC 3.13 L (3.5-6.1) 10^6/uL Hgb 9.9 L (12.0-16.0) g/dL Hct 29.3 L (36.0-48.0) % MCV 93.6 (80.0-105.0) fl MCH 31.6 (25.0-35.0) pg MCHC 33.8 (31.0-37.0) g/dl RDW 17.1 H (11.5-14.5) % Plt Count 68 L (120.0-450.0) 10^3/uL Manual Plt Count 86 L (120-450) K/mm3 MPV 10.2 (7.0-11.0) fl Gran % 80.1 H (50.0-68.0) % Lymph % (Auto) 7.0 L (22.0-35.0) % [place] % (Auto) 11.3 H (1.0-6.0) % Eos % (Auto) 1.4 L (1.5-5.0) % Baso % (Auto) 0.2 (0.0-3.0) % Gran # 9.73 H (1.4-6.5) Lymph # (Auto) 0.9 L (1.2-3.4) [place] # (Auto) 1.4 H (0.1-0.6) Eos # (Auto) 0.2 (0.0-0.7) Baso # (Auto) 0.02 (0.0-2.0) K/mm3 pCO2 (35-45) mm/Hg pO2 (80-100) mm/Hg HCO3 (21-28) mmol/L ABG pH (7.35-7.45) ABG Total CO2 (22-28) mmol.L ABG O2 Saturation (95-98) % ABG O2 Content (15-23) ML/dl ABG Base Excess (-2.0-3.0) mmol/L ABG Hemoglobin (11.7-17.4) g/dL ABG Carboxyhemoglobin (0.5-1.5) % POC ABG HHb (Measured) (0-5) % ABG Methemoglobin (0.0-3.0) % ABG O2 Capacity (16-24) mL/dl Hgb O2 Saturation (95.0-98.0) % FiO2 % Sodium 145 (132-148) mmol/L Potassium 3.1 L (3.6-5.0) mmol/L Chloride 118 H (98-107) mmol/L Carbon Dioxide 20 L (21-33) mmol/L Anion Gap 10 (10-20) BUN 12 (7-21) mg/dL Creatinine 0.5 L (0.7-1.2) mg/dl Est GFR ( Amer) > 60 Est GFR (Non-Af Amer) > 60 POC Glucose (mg/dL) (65-110) mg/dL Random Glucose 114 H (70-110) mg/dL Serum Osmolality (272-300) mosm/kg Calcium 8.3 L (8.4-10.5) mg/dL Phosphorus 2.6 (2.5-4.5) mg/dL Magnesium 1.7 (1.7-2.2) mg/dL Total Bilirubin 4.3 H (0.2-1.3) mg/dL AST 39 H (14-36) U/L ALT 23 (7-56) U/L Alkaline Phosphatase 130 H (38-126) U/L Ammonia (9-33) umol/L Total Protein 6.4 (5.8-8.3) g/dL Albumin 2.8 L (3.0-4.8) g/dL Globulin 3.7 gm/dL Albumin/Globulin Ratio 0.7 L (1.1-1.8) Procalcitonin (0.19-0.49) NG/ML BECKY 6 Profile (NEGATIVE) Direct Plt-Bound IgG Ab (NEGATIVE) 03/26/18 03/26/18 03/25/18 Range/Units 05:14 01:58 20:50 WBC (4.5-11.0) 10^3/ul RBC (3.5-6.1) 10^6/uL Hgb (12.0-16.0) g/dL Hct (36.0-48.0) % MCV (80.0-105.0) fl MCH (25.0-35.0) pg MCHC (31.0-37.0) g/dl RDW (11.5-14.5) % Plt Count (120.0-450.0) 10^3/uL Manual Plt Count (120-450) K/mm3 MPV (7.0-11.0) fl Gran % (50.0-68.0) % Lymph % (Auto) (22.0-35.0) % [place] % (Auto) (1.0-6.0) % Eos % (Auto) (1.5-5.0) % Baso % (Auto) (0.0-3.0) % Gran # (1.4-6.5) Lymph # (Auto) (1.2-3.4) [place] # (Auto) (0.1-0.6) Eos # (Auto) (0.0-0.7) Baso # (Auto) (0.0-2.0) K/mm3 pCO2 25 L (35-45) mm/Hg pO2 88.0 (80-100) mm/Hg HCO3 17.8 L (21-28) mmol/L ABG pH 7.46 H (7.35-7.45) ABG Total CO2 18.6 L (22-28) mmol.L ABG O2 Saturation 99.8 H (95-98) % ABG O2 Content 13.4 L (15-23) ML/dl ABG Base Excess -4.9 L (-2.0-3.0) mmol/L ABG Hemoglobin 9.8 L (11.7-17.4) g/dL ABG Carboxyhemoglobin 2.3 H (0.5-1.5) % POC ABG HHb (Measured) 0.2 (0-5) % ABG Methemoglobin 1.3 (0.0-3.0) % ABG O2 Capacity 13.4 L (16-24) mL/dl Hgb O2 Saturation 96.1 (95.0-98.0) % FiO2 50.0 % Sodium (132-148) mmol/L Potassium (3.6-5.0) mmol/L Chloride (98-107) mmol/L Carbon Dioxide (21-33) mmol/L Anion Gap (10-20) BUN (7-21) mg/dL Creatinine (0.7-1.2) mg/dl Est GFR ( Amer) Est GFR (Non-Af Amer) POC Glucose (mg/dL) 112 H (65-110) mg/dL Random Glucose (70-110) mg/dL Serum Osmolality (272-300) mosm/kg Calcium (8.4-10.5) mg/dL Phosphorus (2.5-4.5) mg/dL Magnesium (1.7-2.2) mg/dL Total Bilirubin (0.2-1.3) mg/dL AST (14-36) U/L ALT (7-56) U/L Alkaline Phosphatase (38-126) U/L Ammonia 43 H (9-33) umol/L Total Protein (5.8-8.3) g/dL Albumin (3.0-4.8) g/dL Globulin gm/dL Albumin/Globulin Ratio (1.1-1.8) Procalcitonin (0.19-0.49) NG/ML BECKY 6 Profile (NEGATIVE) Direct Plt-Bound IgG Ab (NEGATIVE) 03/25/18 03/25/18 03/25/18 Range/Units 20:02 13:53 11:30 WBC (4.5-11.0) 10^3/ul RBC (3.5-6.1) 10^6/uL Hgb (12.0-16.0) g/dL Hct (36.0-48.0) % MCV (80.0-105.0) fl MCH (25.0-35.0) pg MCHC (31.0-37.0) g/dl RDW (11.5-14.5) % Plt Count (120.0-450.0) 10^3/uL Manual Plt Count (120-450) K/mm3 MPV (7.0-11.0) fl Gran % (50.0-68.0) % Lymph % (Auto) (22.0-35.0) % [place] % (Auto) (1.0-6.0) % Eos % (Auto) (1.5-5.0) % Baso % (Auto) (0.0-3.0) % Gran # (1.4-6.5) Lymph # (Auto) (1.2-3.4) [place] # (Auto) (0.1-0.6) Eos # (Auto) (0.0-0.7) Baso # (Auto) (0.0-2.0) K/mm3 pCO2 (35-45) mm/Hg pO2 (80-100) mm/Hg HCO3 (21-28) mmol/L ABG pH (7.35-7.45) ABG Total CO2 (22-28) mmol.L ABG O2 Saturation (95-98) % ABG O2 Content (15-23) ML/dl ABG Base Excess (-2.0-3.0) mmol/L ABG Hemoglobin (11.7-17.4) g/dL ABG Carboxyhemoglobin (0.5-1.5) % POC ABG HHb (Measured) (0-5) % ABG Methemoglobin (0.0-3.0) % ABG O2 Capacity (16-24) mL/dl Hgb O2 Saturation (95.0-98.0) % FiO2 % Sodium (132-148) mmol/L Potassium (3.6-5.0) mmol/L Chloride (98-107) mmol/L Carbon Dioxide (21-33) mmol/L Anion Gap (10-20) BUN (7-21) mg/dL Creatinine (0.7-1.2) mg/dl Est GFR ( Amer) Est GFR (Non-Af Amer) POC Glucose (mg/dL) 126 H 119 H (65-110) mg/dL Random Glucose (70-110) mg/dL Serum Osmolality 297 (272-300) mosm/kg Calcium (8.4-10.5) mg/dL Phosphorus (2.5-4.5) mg/dL Magnesium (1.7-2.2) mg/dL Total Bilirubin (0.2-1.3) mg/dL AST (14-36) U/L ALT (7-56) U/L Alkaline Phosphatase (38-126) U/L Ammonia (9-33) umol/L Total Protein (5.8-8.3) g/dL Albumin (3.0-4.8) g/dL Globulin gm/dL Albumin/Globulin Ratio (1.1-1.8) Procalcitonin (0.19-0.49) NG/ML BECKY 6 Profile (NEGATIVE) Direct Plt-Bound IgG Ab (NEGATIVE) 03/25/18 03/25/18 03/25/18 Range/Units 11:30 09:37 09:10 WBC (4.5-11.0) 10^3/ul RBC (3.5-6.1) 10^6/uL Hgb (12.0-16.0) g/dL Hct (36.0-48.0) % MCV (80.0-105.0) fl MCH (25.0-35.0) pg MCHC (31.0-37.0) g/dl RDW (11.5-14.5) % Plt Count (120.0-450.0) 10^3/uL Manual Plt Count (120-450) K/mm3 MPV (7.0-11.0) fl Gran % (50.0-68.0) % Lymph % (Auto) (22.0-35.0) % [place] % (Auto) (1.0-6.0) % Eos % (Auto) (1.5-5.0) % Baso % (Auto) (0.0-3.0) % Gran # (1.4-6.5) Lymph # (Auto) (1.2-3.4) [place] # (Auto) (0.1-0.6) Eos # (Auto) (0.0-0.7) Baso # (Auto) (0.0-2.0) K/mm3 pCO2 (35-45) mm/Hg pO2 (80-100) mm/Hg HCO3 (21-28) mmol/L ABG pH (7.35-7.45) ABG Total CO2 (22-28) mmol.L ABG O2 Saturation (95-98) % ABG O2 Content (15-23) ML/dl ABG Base Excess (-2.0-3.0) mmol/L ABG Hemoglobin (11.7-17.4) g/dL ABG Carboxyhemoglobin (0.5-1.5) % POC ABG HHb (Measured) (0-5) % ABG Methemoglobin (0.0-3.0) % ABG O2 Capacity (16-24) mL/dl Hgb O2 Saturation (95.0-98.0) % FiO2 % Sodium 144 (132-148) mmol/L Potassium 3.1 L (3.6-5.0) mmol/L Chloride 117 H (98-107) mmol/L Carbon Dioxide 18 L (21-33) mmol/L Anion Gap 12 (10-20) BUN 11 (7-21) mg/dL Creatinine 0.5 L (0.7-1.2) mg/dl Est GFR ( Amer) > 60 Est GFR (Non-Af Amer) > 60 POC Glucose (mg/dL) 121 H (65-110) mg/dL Random Glucose 136 H (70-110) mg/dL Serum Osmolality (272-300) mosm/kg Calcium 8.5 (8.4-10.5) mg/dL Phosphorus (2.5-4.5) mg/dL Magnesium (1.7-2.2) mg/dL Total Bilirubin (0.2-1.3) mg/dL AST (14-36) U/L ALT (7-56) U/L Alkaline Phosphatase (38-126) U/L Ammonia (9-33) umol/L Total Protein (5.8-8.3) g/dL Albumin (3.0-4.8) g/dL Globulin gm/dL Albumin/Globulin Ratio (1.1-1.8) Procalcitonin 0.21 (0.19-0.49) NG/ML BECKY 6 Profile (NEGATIVE) Direct Plt-Bound IgG Ab (NEGATIVE) 03/25/18 03/23/18 03/23/18 Range/Units 08:11 06:10 06:00 WBC (4.5-11.0) 10^3/ul RBC (3.5-6.1) 10^6/uL Hgb (12.0-16.0) g/dL Hct (36.0-48.0) % MCV (80.0-105.0) fl MCH (25.0-35.0) pg MCHC (31.0-37.0) g/dl RDW (11.5-14.5) % Plt Count (120.0-450.0) 10^3/uL Manual Plt Count (120-450) K/mm3 MPV (7.0-11.0) fl Gran % (50.0-68.0) % Lymph % (Auto) (22.0-35.0) % [place] % (Auto) (1.0-6.0) % Eos % (Auto) (1.5-5.0) % Baso % (Auto) (0.0-3.0) % Gran # (1.4-6.5) Lymph # (Auto) (1.2-3.4) [place] # (Auto) (0.1-0.6) Eos # (Auto) (0.0-0.7) Baso # (Auto) (0.0-2.0) K/mm3 pCO2 (35-45) mm/Hg pO2 (80-100) mm/Hg HCO3 (21-28) mmol/L ABG pH (7.35-7.45) ABG Total CO2 (22-28) mmol.L ABG O2 Saturation (95-98) % ABG O2 Content (15-23) ML/dl ABG Base Excess (-2.0-3.0) mmol/L ABG Hemoglobin (11.7-17.4) g/dL ABG Carboxyhemoglobin (0.5-1.5) % POC ABG HHb (Measured) (0-5) % ABG Methemoglobin (0.0-3.0) % ABG O2 Capacity (16-24) mL/dl Hgb O2 Saturation (95.0-98.0) % FiO2 % Sodium (132-148) mmol/L Potassium (3.6-5.0) mmol/L Chloride (98-107) mmol/L Carbon Dioxide (21-33) mmol/L Anion Gap (10-20) BUN (7-21) mg/dL Creatinine (0.7-1.2) mg/dl Est GFR ( Amer) Est GFR (Non-Af Amer) POC Glucose (mg/dL) 129 H (65-110) mg/dL Random Glucose (70-110) mg/dL Serum Osmolality (272-300) mosm/kg Calcium (8.4-10.5) mg/dL Phosphorus (2.5-4.5) mg/dL Magnesium (1.7-2.2) mg/dL Total Bilirubin (0.2-1.3) mg/dL AST (14-36) U/L ALT (7-56) U/L Alkaline Phosphatase (38-126) U/L Ammonia (9-33) umol/L Total Protein (5.8-8.3) g/dL Albumin (3.0-4.8) g/dL Globulin gm/dL Albumin/Globulin Ratio (1.1-1.8) Procalcitonin (0.19-0.49) NG/ML BECKY 6 Profile Negative (NEGATIVE) Direct Plt-Bound IgG Ab Negative (NEGATIVE) Laboratory Results - last 24 hr 03/23/18 03/23/18 03/25/18 06:00 06:10 08:11 WBC RBC Hgb Hct MCV MCH MCHC RDW Plt Count Manual Plt Count MPV Gran % Lymph % (Auto) [place] % (Auto) Eos % (Auto) Baso % (Auto) Gran # Lymph # (Auto) [place] # (Auto) Eos # (Auto) Baso # (Auto) pCO2 pO2 HCO3 ABG pH ABG Total CO2 ABG O2 Saturation ABG O2 Content ABG Base Excess ABG Hemoglobin ABG Carboxyhemoglobin POC ABG HHb (Measured) ABG Methemoglobin ABG O2 Capacity Hgb O2 Saturation FiO2 Sodium Potassium Chloride Carbon Dioxide Anion Gap BUN Creatinine Est GFR ( Amer) Est GFR (Non-Af Amer) POC Glucose (mg/dL) 129 H Random Glucose Serum Osmolality Calcium Phosphorus Magnesium Total Bilirubin AST ALT Alkaline Phosphatase Ammonia Total Protein Albumin Globulin Albumin/Globulin Ratio Procalcitonin BECKY 6 Profile Negative Direct Plt-Bound IgG Ab Negative 03/25/18 03/25/18 03/25/18 09:10 09:37 11:30 WBC RBC Hgb Hct MCV MCH MCHC RDW Plt Count Manual Plt Count MPV Gran % Lymph % (Auto) [place] % (Auto) Eos % (Auto) Baso % (Auto) Gran # Lymph # (Auto) [place] # (Auto) Eos # (Auto) Baso # (Auto) pCO2 pO2 HCO3 ABG pH ABG Total CO2 ABG O2 Saturation ABG O2 Content ABG Base Excess ABG Hemoglobin ABG Carboxyhemoglobin POC ABG HHb (Measured) ABG Methemoglobin ABG O2 Capacity Hgb O2 Saturation FiO2 Sodium 144 Potassium 3.1 L Chloride 117 H Carbon Dioxide 18 L Anion Gap 12 BUN 11 Creatinine 0.5 L Est GFR ( Amer) > 60 Est GFR (Non-Af Amer) > 60 POC Glucose (mg/dL) 121 H Random Glucose 136 H Serum Osmolality Calcium 8.5 Phosphorus Magnesium Total Bilirubin AST ALT Alkaline Phosphatase Ammonia Total Protein Albumin Globulin Albumin/Globulin Ratio Procalcitonin 0.21 BECKY 6 Profile Direct Plt-Bound IgG Ab 03/25/18 03/25/18 03/25/18 11:30 13:53 20:02 WBC RBC Hgb Hct MCV MCH MCHC RDW Plt Count Manual Plt Count MPV Gran % Lymph % (Auto) [place] % (Auto) Eos % (Auto) Baso % (Auto) Gran # Lymph # (Auto) [place] # (Auto) Eos # (Auto) Baso # (Auto) pCO2 pO2 HCO3 ABG pH ABG Total CO2 ABG O2 Saturation ABG O2 Content ABG Base Excess ABG Hemoglobin ABG Carboxyhemoglobin POC ABG HHb (Measured) ABG Methemoglobin ABG O2 Capacity Hgb O2 Saturation FiO2 Sodium Potassium Chloride Carbon Dioxide Anion Gap BUN Creatinine Est GFR ( Amer) Est GFR (Non-Af Amer) POC Glucose (mg/dL) 119 H 126 H Random Glucose Serum Osmolality 297 Calcium Phosphorus Magnesium Total Bilirubin AST ALT Alkaline Phosphatase Ammonia Total Protein Albumin Globulin Albumin/Globulin Ratio Procalcitonin BECKY 6 Profile Direct Plt-Bound IgG Ab 0903/26/18 03/26/18 20:50 01:58 05:14 WBC RBC Hgb Hct MCV MCH MCHC RDW Plt Count Manual Plt Count MPV Gran % Lymph % (Auto) [place] % (Auto) Eos % (Auto) Baso % (Auto) Gran # Lymph # (Auto) [place] # (Auto) Eos # (Auto) Baso # (Auto) pCO2 25 L pO2 88.0 HCO3 17.8 L ABG pH 7.46 H ABG Total CO2 18.6 L ABG O2 Saturation 99.8 H ABG O2 Content 13.4 L ABG Base Excess -4.9 L ABG Hemoglobin 9.8 L ABG Carboxyhemoglobin 2.3 H POC ABG HHb (Measured) 0.2 ABG Methemoglobin 1.3 ABG O2 Capacity 13.4 L Hgb O2 Saturation 96.1 FiO2 50.0 Sodium Potassium Chloride Carbon Dioxide Anion Gap BUN Creatinine Est GFR ( Amer) Est GFR (Non-Af Amer) POC Glucose (mg/dL) 112 H Random Glucose Serum Osmolality Calcium Phosphorus Magnesium Total Bilirubin AST ALT Alkaline Phosphatase Ammonia 43 H Total Protein Albumin Globulin Albumin/Globulin Ratio Procalcitonin BECKY 6 Profile Direct Plt-Bound IgG Ab 03/26/18 03/26/18 03/26/18 06:00 06:00 06:00 WBC 12.1 H RBC 3.13 L Hgb 9.9 L Hct 29.3 L MCV 93.6 MCH 31.6 MCHC 33.8 RDW 17.1 H Plt Count 68 L Manual Plt Count 86 L MPV 10.2 Gran % 80.1 H Lymph % (Auto) 7.0 L [place] % (Auto) 11.3 H Eos % (Auto) 1.4 L Baso % (Auto) 0.2 Gran # 9.73 H Lymph # (Auto) 0.9 L [place] # (Auto) 1.4 H Eos # (Auto) 0.2 Baso # (Auto) 0.02 pCO2 pO2 HCO3 ABG pH ABG Total CO2 ABG O2 Saturation ABG O2 Content ABG Base Excess ABG Hemoglobin ABG Carboxyhemoglobin POC ABG HHb (Measured) ABG Methemoglobin ABG O2 Capacity Hgb O2 Saturation FiO2 Sodium 145 Potassium 3.1 L Chloride 118 H Carbon Dioxide 20 L Anion Gap 10 BUN 12 Creatinine 0.5 L Est GFR ( Amer) > 60 Est GFR (Non-Af Amer) > 60 POC Glucose (mg/dL) Random Glucose 114 H Serum Osmolality Calcium 8.3 L Phosphorus 2.6 Magnesium 1.7 Total Bilirubin 4.3 H AST 39 H ALT 23 Alkaline Phosphatase 130 H Ammonia Total Protein 6.4 Albumin 2.8 L Globulin 3.7 Albumin/Globulin Ratio 0.7 L Procalcitonin BECKY 6 Profile Direct Plt-Bound IgG Ab Fingerstick Blood Sugar Results: 129 Review of Systems - Review of Systems Systems not reviewed;Unavailable: Intubated Critical Care Progress Note - Ventilator Checklist Head of Bed 30 Degrees: Yes Daily Assessment of Readiness to Wean: Yes PUD Prophalyxis: Yes DVT Prophylaxis: Yes - Vent Settings MODE:: PRESSURE SUPPORT RESP RATE:: 35 FIO2:: 50 PEEP:: 5 PRESSURE SUPPORT:: 5 - Extremities/Vascular Does the Patient have a Central Venous Catheter?: Yes Insertion Site: Internal Jugular Vein Does the Patient need a Central Venous Catheter?: Yes Does the Patient have a Donahue Catheter?: Yes Does the Patient need a [place] Catheter?: Yes Catheter Insertion Criteria: Patient requires prolonged immobilization - Prophylaxis GI Prophylaxis GI: Pepsid - Prophylaxis DVT Prophylaxis DVT: SCDs Assessment/Plan - Assessment and Plan (Free Text) Plan: Neuro : - d/c EEG, patient to go for MRI brain today - patient slowly becoming more awake opening eyes and moving, following commands - Will keep BP goals: SBP 120-140/80-90. - C/w keppra 500 BID - Neurosurgery on board. No acute surgical intervention. Keep HOB>30 degrees. - Neurology Following - Seizure precautions, neuro checks. - 03/21 CT head showed hemorrhage within the medial left occipital lobe measuring approximately 2.8 x 2.8 cm with associated edema/necrosis. This finding exerts mass effect on the atrium of the ventricles anterior laterally. Location of this hemorrhage is atypical for hypertensive hemorrhage. Considerations include atypical hypertensive hemorrhage, underlying vascular lesion, hemorrhagic tumor is considered less likely. - 03/22 CT Head showed increasing left occipital lobe hemorrhage 5.3x3.3cm from 2.2x2.2cm. Intraventricular extension of hemorrhage involving left lateral and 3rd ventricles. Increasing dilatation of the left lateral ventricle. - 03/23 CTA no AVM, no aneurysm, no stenosis or blockage, hemorrhage stable in size - 03/24 CT head no change, stable hemorrhage CV: - Keep BP goal 120-140/80-90. - cardene drip available as needed - Continue to monitor. Pulm: - Intubated on Pressure Support/ CPAP PS 5 PEEP 5 - Maintain O2 sat>92-94% - Continue with HOB elevation> 35 degrees, aspiration precautions. - Continue with protected lung ventilation strategies with TV of 6 ml/kg of IBW , plateau pressure less than 35, head of bed elevation above 35 degrees, pulm toileting - ABG 7.46/ CO2 25/ 02 88/ HCO3 18 - CXR today stable bilateral patchy lung infiltrate GI: - D/c feeds in preparation for possible extubation - Ammonia 43 - GI following - continue lactulose, adjust per GI recs Renal : - BUN/Cr 12/0.5 - UOP appropriate, lasix given to diurese pulmonary edema - Replace lytes, maintain euvolemia. - Continue to monitor. ID: - T max 101.7, WBC 12.1 - Ucx and Bcx pending - c/c aztreonam and vancomycin - ID Following - all previous cultures negative to date - CXR today stable bilateral patchy lung infiltrate Endo: Maintain euglycemia. Heme: - Patient historically has had thrombocytopenia - PLT 68 - Hematology consulted for thrombocytopenia - Hgb improved to 9.9 - Total bili 4.3 DVT ppx - SCDs in setting of brain hemorrhage GI ppx - Protonix <Dylan Orosco - Last Filed: 03/26/18 13:05> CCU Objective - Vital Signs / Intake & Output Vital Signs (Last 4 hours): Vital Signs Pulse BP 03/26/18 10:28 145/73 03/26/18 09:54 91 H 140/80 Intake and Output (Last 8hrs): Intake & Output 03/25/18 03/26/18 03/26/18 22:59 06:59 14:59 Intake Total 1260 1985 Output Total 1250 1700 Balance 10 285 Weight 137 lb 14.4 oz Intake: IV 1200 0 Left Hand 1200 0 Right Antecubital 0 Oral 0 Tube Feeding 60 260 TPN/PPN 0 Blood Product 0 Lipid 0 Albumin 0 Other 1725 Output: Urine 1250 1700 Urethral ([place]) 1250 1700 Stool 0 Urine/Stool Mix 0 Emesis 0 Oral Regurgitation 0 Other 0 Other: # Voids Urethral ([place]) 0 # Bowel Movements 3 - Medications Active Medications: Active Medications Generic Name Dose Route Start Last Admin Trade Name Freq PRN Reason Stop Dose Admin Carvedilol 3.125 mg 03/25/18 18:00 03/26/18 09:54 Coreg PO 3.125 mg BID STEVEN Administration Famotidine 20 mg 03/23/18 10:00 03/26/18 09:55 Pepcid IVP 20 mg DAILY STEVEN Administration Nicardipine HCl 20 mg in 200 mls @ 50 mls/hr 03/24/18 07:57 03/25/18 11:00 Cardene Iv Premix IV Infused .Q4H PRN Titration TITRATE PER MD ORDER Protocol 5 MG/HR Aztreonam 100 mls @ 100 mls/hr 03/25/18 09:00 03/26/18 05:55 Azactam 1 Gm IVPB 04/01/18 09:01 100 mls/hr Q8 STEVEN Administration Protocol Vancomycin HCl 1 gm in 250 mls @ 167 mls/hr 03/25/18 09:00 03/26/18 09:09 Vancomycin 1gm IVPB 167 mls/hr Q12H STEVEN Administration Protocol Levetiracetam 750 mg/ Sodium 107.5 mls @ 460 mls/hr 03/25/18 22:00 03/26/18 10:25 Chloride IV 460 mls/hr Q12 STEVEN Administration Potassium Phosphate 30 mmole/ 260 mls @ 42.5 mls/hr 03/26/18 09:30 03/26/18 10:27 Sodium Chloride IVPB 03/26/18 15:37 42.5 mls/hr ONCE ONE Administration Insulin Human Regular 0 units 03/24/18 14:00 03/26/18 08:52 Humulin R Low SC Not Given Q6H STEVEN Protocol Lactulose 20 gm 03/25/18 10:30 03/26/18 09:55 Enulose PO 20 gm BID STEVEN Administration Vitamin A 1 ea 03/23/18 17:50 03/24/18 10:19 Vitamin A & D Oint Ud Foilpak TOP 1 ea Q12 PRN Administration apply to dry lips - Patient Studies Lab Studies: Microbiology Studies 03/25/18 11:15 Blood Culture - Preliminary Blood NO GROWTH AFTER 24 HOURS 03/25/18 10:45 Blood Culture - Preliminary Blood NO GROWTH AFTER 24 HOURS 03/21/18 18:30 Blood Culture - Preliminary Blood-Venous NO GROWTH AFTER 4 DAYS 03/21/18 18:00 Blood Culture - Preliminary Blood-Venous NO GROWTH AFTER 4 DAYS Lab Studies 03/26/18 03/26/18 03/26/18 Range/Units 08:14 06:00 06:00 WBC (4.5-11.0) 10^3/ul RBC (3.5-6.1) 10^6/uL Hgb (12.0-16.0) g/dL Hct (36.0-48.0) % MCV (80.0-105.0) fl MCH (25.0-35.0) pg MCHC (31.0-37.0) g/dl RDW (11.5-14.5) % Plt Count (120.0-450.0) 10^3/uL Manual Plt Count 86 L (120-450) K/mm3 MPV (7.0-11.0) fl Gran % (50.0-68.0) % Lymph % (Auto) (22.0-35.0) % [place] % (Auto) (1.0-6.0) % Eos % (Auto) (1.5-5.0) % Baso % (Auto) (0.0-3.0) % Gran # (1.4-6.5) Lymph # (Auto) (1.2-3.4) [place] # (Auto) (0.1-0.6) Eos # (Auto) (0.0-0.7) Baso # (Auto) (0.0-2.0) K/mm3 pCO2 (35-45) mm/Hg pO2 (80-100) mm/Hg HCO3 (21-28) mmol/L ABG pH (7.35-7.45) ABG Total CO2 (22-28) mmol.L ABG O2 Saturation (95-98) % ABG O2 Content (15-23) ML/dl ABG Base Excess (-2.0-3.0) mmol/L ABG Hemoglobin (11.7-17.4) g/dL ABG Carboxyhemoglobin (0.5-1.5) % POC ABG HHb (Measured) (0-5) % ABG Methemoglobin (0.0-3.0) % ABG O2 Capacity (16-24) mL/dl Hgb O2 Saturation (95.0-98.0) % FiO2 % Sodium 145 (132-148) mmol/L Potassium 3.1 L (3.6-5.0) mmol/L Chloride 118 H (98-107) mmol/L Carbon Dioxide 20 L (21-33) mmol/L Anion Gap 10 (10-20) BUN 12 (7-21) mg/dL Creatinine 0.5 L (0.7-1.2) mg/dl Est GFR ( Amer) > 60 Est GFR (Non-Af Amer) > 60 POC Glucose (mg/dL) 123 H (65-110) mg/dL Random Glucose 114 H (70-110) mg/dL Calcium 8.3 L (8.4-10.5) mg/dL Phosphorus 2.6 (2.5-4.5) mg/dL Magnesium 1.7 (1.7-2.2) mg/dL Total Bilirubin 4.3 H (0.2-1.3) mg/dL AST 39 H (14-36) U/L ALT 23 (7-56) U/L Alkaline Phosphatase 130 H (38-126) U/L Ammonia (9-33) umol/L Total Protein 6.4 (5.8-8.3) g/dL Albumin 2.8 L (3.0-4.8) g/dL Globulin 3.7 gm/dL Albumin/Globulin Ratio 0.7 L (1.1-1.8) Direct Plt-Bound IgG Ab (NEGATIVE) 03/26/18 03/26/18 03/26/18 Range/Units 06:00 05:14 01:58 WBC 12.1 H (4.5-11.0) 10^3/ul RBC 3.13 L (3.5-6.1) 10^6/uL Hgb 9.9 L (12.0-16.0) g/dL Hct 29.3 L (36.0-48.0) % MCV 93.6 (80.0-105.0) fl MCH 31.6 (25.0-35.0) pg MCHC 33.8 (31.0-37.0) g/dl RDW 17.1 H (11.5-14.5) % Plt Count 68 L (120.0-450.0) 10^3/uL Manual Plt Count (120-450) K/mm3 MPV 10.2 (7.0-11.0) fl Gran % 80.1 H (50.0-68.0) % Lymph % (Auto) 7.0 L (22.0-35.0) % [place] % (Auto) 11.3 H (1.0-6.0) % Eos % (Auto) 1.4 L (1.5-5.0) % Baso % (Auto) 0.2 (0.0-3.0) % Gran # 9.73 H (1.4-6.5) Lymph # (Auto) 0.9 L (1.2-3.4) [place] # (Auto) 1.4 H (0.1-0.6) Eos # (Auto) 0.2 (0.0-0.7) Baso # (Auto) 0.02 (0.0-2.0) K/mm3 pCO2 25 L (35-45) mm/Hg pO2 88.0 (80-100) mm/Hg HCO3 17.8 L (21-28) mmol/L ABG pH 7.46 H (7.35-7.45) ABG Total CO2 18.6 L (22-28) mmol.L ABG O2 Saturation 99.8 H (95-98) % ABG O2 Content 13.4 L (15-23) ML/dl ABG Base Excess -4.9 L (-2.0-3.0) mmol/L ABG Hemoglobin 9.8 L (11.7-17.4) g/dL ABG Carboxyhemoglobin 2.3 H (0.5-1.5) % POC ABG HHb (Measured) 0.2 (0-5) % ABG Methemoglobin 1.3 (0.0-3.0) % ABG O2 Capacity 13.4 L (16-24) mL/dl Hgb O2 Saturation 96.1 (95.0-98.0) % FiO2 50.0 % Sodium (132-148) mmol/L Potassium (3.6-5.0) mmol/L Chloride (98-107) mmol/L Carbon Dioxide (21-33) mmol/L Anion Gap (10-20) BUN (7-21) mg/dL Creatinine (0.7-1.2) mg/dl Est GFR ( Amer) Est GFR (Non-Af Amer) POC Glucose (mg/dL) 112 H (65-110) mg/dL Random Glucose (70-110) mg/dL Calcium (8.4-10.5) mg/dL Phosphorus (2.5-4.5) mg/dL Magnesium (1.7-2.2) mg/dL Total Bilirubin (0.2-1.3) mg/dL AST (14-36) U/L ALT (7-56) U/L Alkaline Phosphatase (38-126) U/L Ammonia (9-33) umol/L Total Protein (5.8-8.3) g/dL Albumin (3.0-4.8) g/dL Globulin gm/dL Albumin/Globulin Ratio (1.1-1.8) Direct Plt-Bound IgG Ab (NEGATIVE) 03/25/18 03/25/18 03/25/18 Range/Units 20:50 20:02 13:53 WBC (4.5-11.0) 10^3/ul RBC (3.5-6.1) 10^6/uL Hgb (12.0-16.0) g/dL Hct (36.0-48.0) % MCV (80.0-105.0) fl MCH (25.0-35.0) pg MCHC (31.0-37.0) g/dl RDW (11.5-14.5) % Plt Count (120.0-450.0) 10^3/uL Manual Plt Count (120-450) K/mm3 MPV (7.0-11.0) fl Gran % (50.0-68.0) % Lymph % (Auto) (22.0-35.0) % [place] % (Auto) (1.0-6.0) % Eos % (Auto) (1.5-5.0) % Baso % (Auto) (0.0-3.0) % Gran # (1.4-6.5) Lymph # (Auto) (1.2-3.4) [place] # (Auto) (0.1-0.6) Eos # (Auto) (0.0-0.7) Baso # (Auto) (0.0-2.0) K/mm3 pCO2 (35-45) mm/Hg pO2 (80-100) mm/Hg HCO3 (21-28) mmol/L ABG pH (7.35-7.45) ABG Total CO2 (22-28) mmol.L ABG O2 Saturation (95-98) % ABG O2 Content (15-23) ML/dl ABG Base Excess (-2.0-3.0) mmol/L ABG Hemoglobin (11.7-17.4) g/dL ABG Carboxyhemoglobin (0.5-1.5) % POC ABG HHb (Measured) (0-5) % ABG Methemoglobin (0.0-3.0) % ABG O2 Capacity (16-24) mL/dl Hgb O2 Saturation (95.0-98.0) % FiO2 % Sodium (132-148) mmol/L Potassium (3.6-5.0) mmol/L Chloride (98-107) mmol/L Carbon Dioxide (21-33) mmol/L Anion Gap (10-20) BUN (7-21) mg/dL Creatinine (0.7-1.2) mg/dl Est GFR ( Amer) Est GFR (Non-Af Amer) POC Glucose (mg/dL) 126 H 119 H (65-110) mg/dL Random Glucose (70-110) mg/dL Calcium (8.4-10.5) mg/dL Phosphorus (2.5-4.5) mg/dL Magnesium (1.7-2.2) mg/dL Total Bilirubin (0.2-1.3) mg/dL AST (14-36) U/L ALT (7-56) U/L Alkaline Phosphatase (38-126) U/L Ammonia 43 H (9-33) umol/L Total Protein (5.8-8.3) g/dL Albumin (3.0-4.8) g/dL Globulin gm/dL Albumin/Globulin Ratio (1.1-1.8) Direct Plt-Bound IgG Ab (NEGATIVE) 03/23/18 Range/Units 06:00 WBC (4.5-11.0) 10^3/ul RBC (3.5-6.1) 10^6/uL Hgb (12.0-16.0) g/dL Hct (36.0-48.0) % MCV (80.0-105.0) fl MCH (25.0-35.0) pg MCHC (31.0-37.0) g/dl RDW (11.5-14.5) % Plt Count (120.0-450.0) 10^3/uL Manual Plt Count (120-450) K/mm3 MPV (7.0-11.0) fl Gran % (50.0-68.0) % Lymph % (Auto) (22.0-35.0) % [place] % (Auto) (1.0-6.0) % Eos % (Auto) (1.5-5.0) % Baso % (Auto) (0.0-3.0) % Gran # (1.4-6.5) Lymph # (Auto) (1.2-3.4) [place] # (Auto) (0.1-0.6) Eos # (Auto) (0.0-0.7) Baso # (Auto) (0.0-2.0) K/mm3 pCO2 (35-45) mm/Hg pO2 (80-100) mm/Hg HCO3 (21-28) mmol/L ABG pH (7.35-7.45) ABG Total CO2 (22-28) mmol.L ABG O2 Saturation (95-98) % ABG O2 Content (15-23) ML/dl ABG Base Excess (-2.0-3.0) mmol/L ABG Hemoglobin (11.7-17.4) g/dL ABG Carboxyhemoglobin (0.5-1.5) % POC ABG HHb (Measured) (0-5) % ABG Methemoglobin (0.0-3.0) % ABG O2 Capacity (16-24) mL/dl Hgb O2 Saturation (95.0-98.0) % FiO2 % Sodium (132-148) mmol/L Potassium (3.6-5.0) mmol/L Chloride (98-107) mmol/L Carbon Dioxide (21-33) mmol/L Anion Gap (10-20) BUN (7-21) mg/dL Creatinine (0.7-1.2) mg/dl Est GFR ( Amer) Est GFR (Non-Af Amer) POC Glucose (mg/dL) (65-110) mg/dL Random Glucose (70-110) mg/dL Calcium (8.4-10.5) mg/dL Phosphorus (2.5-4.5) mg/dL Magnesium (1.7-2.2) mg/dL Total Bilirubin (0.2-1.3) mg/dL AST (14-36) U/L ALT (7-56) U/L Alkaline Phosphatase (38-126) U/L Ammonia (9-33) umol/L Total Protein (5.8-8.3) g/dL Albumin (3.0-4.8) g/dL Globulin gm/dL Albumin/Globulin Ratio (1.1-1.8) Direct Plt-Bound IgG Ab Negative (NEGATIVE) Laboratory Results - last 24 hr 03/23/18 03/25/18 03/25/18 06:00 13:53 20:02 WBC RBC Hgb Hct MCV MCH MCHC RDW Plt Count Manual Plt Count MPV Gran % Lymph % (Auto) [place] % (Auto) Eos % (Auto) Baso % (Auto) Gran # Lymph # (Auto) [place] # (Auto) Eos # (Auto) Baso # (Auto) pCO2 pO2 HCO3 ABG pH ABG Total CO2 ABG O2 Saturation ABG O2 Content ABG Base Excess ABG Hemoglobin ABG Carboxyhemoglobin POC ABG HHb (Measured) ABG Methemoglobin ABG O2 Capacity Hgb O2 Saturation FiO2 Sodium Potassium Chloride Carbon Dioxide Anion Gap BUN Creatinine Est GFR ( Amer) Est GFR (Non-Af Amer) POC Glucose (mg/dL) 119 H 126 H Random Glucose Calcium Phosphorus Magnesium Total Bilirubin AST ALT Alkaline Phosphatase Ammonia Total Protein Albumin Globulin Albumin/Globulin Ratio Direct Plt-Bound IgG Ab Negative 03/25/18 03/26/18 03/26/18 20:50 01:58 05:14 WBC RBC Hgb Hct MCV MCH MCHC RDW Plt Count Manual Plt Count MPV Gran % Lymph % (Auto) [place] % (Auto) Eos % (Auto) Baso % (Auto) Gran # Lymph # (Auto) [place] # (Auto) Eos # (Auto) Baso # (Auto) pCO2 25 L pO2 88.0 HCO3 17.8 L ABG pH 7.46 H ABG Total CO2 18.6 L ABG O2 Saturation 99.8 H ABG O2 Content 13.4 L ABG Base Excess -4.9 L ABG Hemoglobin 9.8 L ABG Carboxyhemoglobin 2.3 H POC ABG HHb (Measured) 0.2 ABG Methemoglobin 1.3 ABG O2 Capacity 13.4 L Hgb O2 Saturation 96.1 FiO2 50.0 Sodium Potassium Chloride Carbon Dioxide Anion Gap BUN Creatinine Est GFR ( Amer) Est GFR (Non-Af Amer) POC Glucose (mg/dL) 112 H Random Glucose Calcium Phosphorus Magnesium Total Bilirubin AST ALT Alkaline Phosphatase Ammonia 43 H Total Protein Albumin Globulin Albumin/Globulin Ratio Direct Plt-Bound IgG Ab 03/26/18 03/26/18 03/26/18 06:00 06:00 06:00 WBC 12.1 H RBC 3.13 L Hgb 9.9 L Hct 29.3 L MCV 93.6 MCH 31.6 MCHC 33.8 RDW 17.1 H Plt Count 68 L Manual Plt Count 86 L MPV 10.2 Gran % 80.1 H Lymph % (Auto) 7.0 L [place] % (Auto) 11.3 H Eos % (Auto) 1.4 L Baso % (Auto) 0.2 Gran # 9.73 H Lymph # (Auto) 0.9 L [place] # (Auto) 1.4 H Eos # (Auto) 0.2 Baso # (Auto) 0.02 pCO2 pO2 HCO3 ABG pH ABG Total CO2 ABG O2 Saturation ABG O2 Content ABG Base Excess ABG Hemoglobin ABG Carboxyhemoglobin POC ABG HHb (Measured) ABG Methemoglobin ABG O2 Capacity Hgb O2 Saturation FiO2 Sodium 145 Potassium 3.1 L Chloride 118 H Carbon Dioxide 20 L Anion Gap 10 BUN 12 Creatinine 0.5 L Est GFR ( Amer) > 60 Est GFR (Non-Af Amer) > 60 POC Glucose (mg/dL) Random Glucose 114 H Calcium 8.3 L Phosphorus 2.6 Magnesium 1.7 Total Bilirubin 4.3 H AST 39 H ALT 23 Alkaline Phosphatase 130 H Ammonia Total Protein 6.4 Albumin 2.8 L Globulin 3.7 Albumin/Globulin Ratio 0.7 L Direct Plt-Bound IgG Ab 03/26/18 08:14 WBC RBC Hgb Hct MCV MCH MCHC RDW Plt Count Manual Plt Count MPV Gran % Lymph % (Auto) [place] % (Auto) Eos % (Auto) Baso % (Auto) Gran # Lymph # (Auto) [place] # (Auto) Eos # (Auto) Baso # (Auto) pCO2 pO2 HCO3 ABG pH ABG Total CO2 ABG O2 Saturation ABG O2 Content ABG Base Excess ABG Hemoglobin ABG Carboxyhemoglobin POC ABG HHb (Measured) ABG Methemoglobin ABG O2 Capacity Hgb O2 Saturation FiO2 Sodium Potassium Chloride Carbon Dioxide Anion Gap BUN Creatinine Est GFR ( Amer) Est GFR (Non-Af Amer) POC Glucose (mg/dL) 123 H Random Glucose Calcium Phosphorus Magnesium Total Bilirubin AST ALT Alkaline Phosphatase Ammonia Total Protein Albumin Globulin Albumin/Globulin Ratio Direct Plt-Bound IgG Ab Assessment/Plan - Assessment and Plan (Free Text) Plan: Patient seen and examined on rounds with resident, agree with note with following additions/exceptions: Patient is 62yo female admitted with IPH, resp failure, intubated. Labs, imaging, chart reviewed. Repeat CT head with stable IPH Patient this morning placed on pressure support, CPAP, RSBI 90-100, drowsy, but follows commands. MRI brain done this morning. Neurology following. Patient with fevers, likely central fevers, cultures negative. IPH Resp failure AMS r/o Seizure Fever Recommend: - cont with vent support, low tidal vol ventilation, daily CPAP trials - cont with abx as per ID, cultures thus far negative - BP control, Cardene as needed - Feeds - FS control - Tylenol PRN - follow up neuro, VEEG - would hold off extubation today, needs better mental status, improved mechanics on CPAP - GI ppx - DVT ppx, SCDs - Monitor in MICU Critical care time 35 minutes
[2018-03-26] MEDS ORDERED: Potassium Phosphate 30 MMOLE in Sodium Chloride 0.9% 250 ML IVPB ONE (09:30)
--- NOTE | 2018-03-26 09:43 | RAD ---
Date of service: 03/26/2018 HISTORY: intubated COMPARISON: 03/25/2018 FINDINGS: LUNGS: Central lines and tubes are unchanged. Bilateral perihilar infiltrates unchanged. PLEURA: No significant pleural effusion identified, no pneumothorax apparent. CARDIOVASCULAR: Normal. OSSEOUS STRUCTURES: No significant abnormalities. VISUALIZED UPPER ABDOMEN: Normal. OTHER FINDINGS: None. IMPRESSION: Bilateral perihilar infiltrates unchanged
[2018-03-26] MEDS ORDERED: Magnesium Sulfate 1 gm in D5W 1 GM/100 ML BAG IVPB ONE (10:01)
--- NOTE | 2018-03-26 10:31 | PCM.VEEG ---
Video EEG - Procedure Start Date: 03/25/18 Start Time: 07:21 End Date: 03/26/18 End Time: 09:05 - Interpretation Description of the study: Video EEG monitoring study EEG Finding during wakefulness: During the awake state, the EEG show poor organization with the fastest frequencies being in the posterior head region were in the the 6 to 7 Hz with poor anterior to posterior organization and with poor reactivity to eye opening/closing. Normal drowsiness and sleep were not seen, when the patient was not stimulated ( eyes closed) the EEG showed diffuse bilateral slowing 4 to 5 Hz right more than left, bilateral sharp waves , and right hemisphere attenuation. EEG Finding during sleep: Normal sleep were not seen, when the patient was not stimulated (eyes closed) the EEG showed diffuse bilateral slowing 4 to 5 Hz right more than left, bilateral sharp waves , and right hemisphere attenuation Interictal non-epileptiform abnormalities: continuous left hemispheric mainly temporal slowing at 4 to 5 Hz. Interictal epileptiform abnormalities: There were occasional runs of bilateral left more than right frontal sharp waves with triphasic morphology that were more frequent seen during transition from wakefulness to sleep or vice versa, that were seen in isolation or in rhythmic runs, lasting for several minutes. NO organized seizure activity was seen. Ictal epileptiform abnormalities: none Induction procedures: none - Impression Impression: IMPRESSION: This is an abnormal video-EEG monitoring study due to the presence of 1) Moderate diffuse slowing. 2) Bifrontal sharp waves with triphasic morphology 3) Left hemispheric slowing. INTERPRETATION: These findings are consistent with a moderate to severe diffuse disturbance of cortical activity, in keeping with a diffuse lobo matter dysfunction; these findings do not support a specific etiology, however these findings are commonly seen in toxic metabolic encephalopahties. Also the findings re in keeping with a focal cortical abnormality involving the left hemisphere.
[2018-03-26] MEDS ORDERED: Gadodiamide 287 MG/ML VIAL (15ML) IV ONE (11:45)
--- NOTE | 2018-03-26 13:47 | MRI ---
Date of service: 03/26/2018 PROCEDURE: MRI BRAIN WITH AND WITHOUT CONTRAST HISTORY: bleed COMPARISON: 03/24/2018 CT TECHNIQUE: Multiplanar, multisequence MR images of the brain were obtained with and without intravenous contrast enhancement. 15 cc of Omniscan FINDINGS: HEMORRHAGE: There is an acute hemorrhage in the left parietal lobe that is unchanged in size compared to the CT scan. In the axial plane this measures 3 x 3.4 cm. There is a moderate amount of surrounding vasogenic edema. DWI: No evidence of an acute or early subacute infarction. BRAIN PARENCHYMA: No atrophy or chronic microvascular ischemic changes. ENHANCEMENT: No abnormal intracranial enhancement. VENTRICLES: Unremarkable. No hydrocephalus. CRANIUM: Unremarkable. ORBITS: Grossly unremarkable. PARANASAL SINUSES/MASTOIDS: Clear VASCULAR SYSTEM: Skull base flow voids intact. OTHER FINDINGS: None . IMPRESSION: There is an acute hemorrhage in the left parietal lobe that is unchanged in size compared to the CT scan. In the axial plane this measures 3 x 3.4 cm. There is a moderate amount of surrounding vasogenic edema. No enhancement to suggest underlying tumor
--- NOTE | 2018-03-26 16:05 | CP.PCM.PN ---
Subjective - Date & Time of Evaluation Date of Evaluation: 03/26/18 Time of Evaluation: 10:10 - Subjective Subjective: Patient is still having fevers but a little more awake today. Objective - Vital Signs/Intake and Output Vital Signs (last 24 hours): Temp Pulse Resp BP Pulse Ox 99.5 F 83 20 133/71 97 03/26/18 06:45 03/26/18 06:45 03/26/18 07:07 03/26/18 06:45 03/26/18 07:07 Intake and Output: 03/26/18 03/26/18 06:59 18:59 Intake Total 1985 Output Total 1700 Balance 285 - Medications Medications: Current Medications Carvedilol (Coreg) 3.125 mg PO BID [facility] Last Admin: 03/25/18 17:18 Dose: 3.125 mg Famotidine (Pepcid) 20 mg IVP DAILY [facility] Last Admin: 03/25/18 09:01 Dose: 20 mg Nicardipine HCl (Cardene Iv Premix) 20 mg in 200 mls @ 50 mls/hr IV .Q4H PRN; Protocol; 5 MG/HR PRN Reason: TITRATE PER MD ORDER Last Titration: 03/25/18 11:00 Dose: Infused Acetaminophen (Ofirmev) 1,000 mg in 100 mls @ 400 mls/hr IVPB Q6H PRN PRN Reason: t more then 99.5 Stop: 03/27/18 08:39 Last Admin: 03/26/18 01:53 Dose: 400 mls/hr Aztreonam (Azactam 1 Gm) 100 mls @ 100 mls/hr IVPB Q8 STEVEN PRN Reason: Protocol Stop: 04/01/18 09:01 Last Admin: 03/26/18 05:55 Dose: 100 mls/hr Vancomycin HCl (Vancomycin 1gm) 1 gm in 250 mls @ 167 mls/hr IVPB Q12H STEVEN PRN Reason: Protocol Last Admin: 03/25/18 21:00 Dose: 167 mls/hr Levetiracetam 750 mg/ Sodium (Chloride) 107.5 mls @ 460 mls/hr IV Q12 STEVEN Last Admin: 03/25/18 21:16 Dose: 460 mls/hr Potassium Chloride 20 meq/ (Dextrose/Sodium Chloride) 1,010 mls @ 100 mls/hr IV .Q10H6M [facility] Last Admin: 03/26/18 05:50 Dose: 100 mls/hr Insulin Human Regular (Humulin R Low) 0 units SC Q6H STEVEN PRN Reason: Protocol Last Admin: 03/26/18 02:00 Dose: Not Given Lactulose (Enulose) 20 gm PO BID [facility] Last Admin: 03/25/18 17:20 Dose: 20 gm Vitamin A (Vitamin A & D Oint Ud Foilpak) 1 ea TOP Q12 PRN PRN Reason: apply to dry lips Last Admin: 03/24/18 10:19 Dose: 1 ea - Labs Labs: 03/26/18 06:00 03/25/18 11:30 PT 20.2 SECONDS (9.4-12.5) H 03/25/18 05:40 INR 1.74 03/25/18 05:40 APTT 31.5 Seconds (25.1-36.5) 03/25/18 05:40 - Constitutional Appears: Chronically Ill, Other (intubated) - ENT Exam Additional comments: ET tube in place - Neck Exam Neck Exam: absent: Meningismus - Respiratory Exam Respiratory Exam: Decreased Breath Sounds - Cardiovascular Exam Cardiovascular Exam: +S1, +S2 - GI/Abdominal Exam GI & Abdominal Exam: Soft. absent: Tenderness Assessment and Plan - Assessment and Plan (Free Text) Plan: Assessment New onset systemic inflammatory response syndrome in this patient with acute left sided intra-cranial hemorrhage and ventilator-dependent respiratory failure , R/O sepsis due HCAP, R/O bacteremia (patient has central venous catheter); R/ O central fever hyperbilirubinemia probably related to chronic liver disease / liver cirrhosis ethanol abuse liver cirrhosis with esophageal varices S/P banding in 2014 arthritis history of spinal stenosis Plan continue Vancomycin and Azactam day 2 pending blood cx, urine cx; PCT is less than 0.5, repeat CXR shows improving perihilar infiltrate discussed with Dr. Laguna previously follow up further plans of Neurology and Neurosurgery HIV test is non-reactive
[2018-03-26] MEDS ORDERED: Dexmedetomidine 400mcg/100mL 400 MCG/100 ML BOTTLE IV PRN (16:36)
--- NOTE | 2018-03-26 19:20 | PN ---
DATE: 03/26/2018 SUBJECTIVE: The patient is seen in the ICU. She is on mechanical ventilation. She is arousable. She has grimacing response to pain. As per the nursing staff, patient is much more awake. She is following commands. She was on pressor support all morning. She was put back on the ventilator this afternoon because she was appearing to be tired. Currently, she does not appear to be acute appear to be in any kind of distress. PHYSICAL EXAMINATION: GENERAL: Elderly lady lying in bed in the ICU, on mechanical ventilation. VITAL SIGNS: Blood pressure 154/81, heart rate 91, respiratory rate 27, temperature 100.8. HEENT: Normocephalic, atraumatic, positive pallor, no icterus, pupils reactive to light. NECK: Supple, no JVD. LUNGS: Bilateral equal air entry, bilateral equal expansion, no rales appreciated anteriorly. CARDIAC: S1 and S2, regular rate rhythm, no murmur, no rub. ABDOMEN: Soft, nondistended, nontender, bowel sounds present. EXTREMITIES: No lower extremity edema. INTAKE AND OUTPUT: 3445/2950. LABORATORY DATA: WBC 12, hemoglobin 9.9, hematocrit 30, platelets 68, polys 80%. Sodium 145, potassium 3.1, chloride 118, CO2 of 20, BUN 12, creatinine 0.5, glucose of 114, calcium 8.3, phosphorus 2.6, magnesium 1.7. Total bili 4.3, AST 39, ALT 23, albumin 2.8. Blood cultures, no growth. Urine culture, no growth. MRI of the brain done this morning shows acute hemorrhage in the left parietal lobe which is unchanged from bed to the CT. It is 3 cm x 3.4 cm. There is moderate surrounding edema. CURRENT MEDICATIONS: Azactam 1 g every 8 hours, Cardene 5 mg per hour, Coreg 3.125 b.i.d., Enulose 20 b.i.d., Keppra, potassium phosphate 30 millimoles given this morning x2 doses, potassium chloride 20 mEq given yesterday. ASSESSMENT: 1. Acute hemorrhagic stroke/intracranial bleed. 2. Severe hypernatremia, resolving, the patient was on hypertonic saline to reduce cerebral edema. 3. Hypokalemia. 4. History of alcoholic liver disease, cirrhosis, ascites. 5. Anemia/thrombocytopenia. 6. Fever. 7. History of hypertension. 8. Byi-[id number]-ucsmnevvl diabetes mellitus. PLAN: 1.. Continue empiric antibiotics as per ID recommendations. 2. Continue antiseizure prophylaxis. 3. Continue to monitor in the ICU. 4. Supplement potassium. 5. Monitor daily labs. 6. Monitor urine output. 7. Prognosis remains guarded. Case discussed with ICU resident, case discussed with ICU nurse at length. More than 35 minutes spent in the care of this critically ill patient. Eleni Lobo MD
[2018-03-26] MEDS: levETIRAcetam 1,000 MG in Sodium Chloride 0.9% 100 ML IV SCH (21:41)
--- NOTE | 2018-03-27 00:55 | PN ---
DATE: 03/26/2018 SUBJECTIVE: Denisha remains in intensive care, Coronary Care, bed 3, this , sedated, intubated after intracerebral hemorrhage. Hospital exceptional student education aide and resident notes are rather exhausted in detail with listing medications and lab results, vital signs etc. Therefore, I will be brief. I will continue to follow the lead of the exceptional student education aide and Neurosurgery. I will need to also check with Neurology. Hopefully, weaning will proceed more smoothly and we will follow. Abilio Bass MD
[2018-03-27] MEDS: Insulin Reg-LOW-Coverage SC SCH ×4 (02:30→19:53)
--- NOTE | 2018-03-27 02:37 | PN ---
DATE: 03/26/2018 This is Denisha Collado' visit in the Intensive Care Unit. For Dr. Medellin. SUBJECTIVE: The patient is a 62-year-old female, seen lying, awake in bed, still intubated. is at the bedside, with patient having had an EEG done yesterday, which showed moderate diffuse nonspecific disturbance of cortical activity, left hemispheric slowing. She had a repeat EEG done earlier today that was read as moderate diffuse slowing, bifrontal shock waves with triphasic morphology, left hemispheric slowing, findings are consistent with [id number] diffuse disturbance in cortical activity keeping with the diffuse lobo matter dysfunction, findings did not support a specific etiology. commonly seen toxic metabolic encephalopathies, also focal cortical abnormality involving left hemisphere. MRI of the brain was also done earlier today. It was read as acute hemorrhage in left parietal lobe that is unchanged in size compared with the CAT scan in the axial plane, measures 3 x 3.4 cm, moderate amount of surrounding vasogenic edema, known to have underlying tumor. Patient otherwise appears to be resting comfortably. OBJECTIVE PHYSICAL EXAMINATION: VITAL SIGNS: Temperature 99.9, pulse 85, respirations that related with the percent saturation oxygen of 97%, blood pressure 126/69. HEENT: She is intubated with a Dobhoff feeding tube and a nasogastric tube for drainage. NECK: No nodes. HEART: Regular rate. LUNGS: Clear. ABDOMEN: Soft and nontender. EXTREMITIES: No edema. SKIN: Warm and dry. NEUROLOGIC: Opens her eyes, more arousable. LABORATORY DATA: Patient's labs from today were done including white blood cell count of 12.1, hemoglobin 9.9, hematocrit 29.3 with the platelet count of 68,000 with the manual count of 86,000. Today, the patient has been transfused 9 bags of platelets and 4 bags of fresh frozen plasma with her most recent transfusion 2 days prior. We will continue cattle sprayer's recommendations with no active bleeding; however, to keep the platelet count greater than 100,000 if possible. Thrombocytopenia, chronic, modestly improved initially and platelets manual count of 86,000 with labs withdrawn in the morning. The patient had INR yesterday of 1.74. Her chem metabolic panel was done showing a potassium of 3.1, this is to be corrected by cattle sprayer with a T bili of 4.3, AST of 39, alkaline phosphatase of 130, ammonia level of 43 with the repeat today of 18. Procalcitonin was 0.2, it done yesterday. Her direct platelet bound IgG antibody was negative. Hepatitis A, B, C testing was negative. MRI of the brain, EEG were as above. Her chest x-ray today showed bilateral perihilar infiltrates unchanged with the central lines and tubes unchanged with the patient being intubated. ASSESSMENT: For this patient is that of systemic inflammatory response syndrome; left occipital lobe intracerebral hemorrhage; respiratory failure, ventilator dependent; hyperbilirubinemia; history of cirrhosis; ethanol abuse; history of gastrointestinal bleed; esophageal varices; history of fractured maxilla; seizure disorder; status post bleed; respiratory failure, intubation with thrombocytopenia, chronic. PLAN: For this patient is to continue present medical regimen as per cattle sprayer. She also has hypokalemia, which will be corrected with her neurological status to be monitored and extubation when possible. Edward Patterson MD
[2018-03-27] MEDS: Aztreonam 1 Gm in NS 100mL 100 ML IVPB SCH ×3 (05:15→21:38)
[2018-03-27 06:46] LABS: BASO # 0.01 K/mm3 (0.0-2.0); BASO % 0.1 % (0.0-3.0); EOS # 0.2 (0.0-0.7); EOS % 2.7 % (1.5-5.0); GRAN # 5.87 (1.4-6.5); GRAN % 75.4 % (50.0-68.0); HEMOGLOBIN 9.7 g/dL (12.0-16.0); LYMPH # 0.7 (1.2-3.4); LYMPH % 8.9 % (22.0-35.0); MEAN CELL VOLUME 95.1 fl (80.0-105.0); MEAN CORPUSCULAR HEMOGLOBIN 31.7 pg (25.0-35.0); MEAN CORPUSCULAR HGB CONC 33.3 g/dl (31.0-37.0); MEAN PLATELET VOLUME 10.6 fl (7.0-11.0); MONO % 12.9 % (1.0-6.0); RBC 3.06 10^6/uL (3.5-6.1); RED CELL DISTRIBUTION WIDTH 16.8 % (11.5-14.5); WHITE BLOOD COUNT 7.8 10^3/ul (4.5-11.0)
[2018-03-27 06:53] LABS: ARTERIAL BLOOD GAS O2 CONTENT 14.7 ML/dl (15-23); ARTERIAL BLOOD GAS O2 SAT 98.3 % (95-98); ARTERIAL BLOOD GAS PCO2 31 mm/Hg (35-45); ARTERIAL BLOOD GAS PH 7.46 (7.35-7.45)
[2018-03-27 06:56] LABS: ALB/GLOB RATIO 0.7 (1.1-1.8); ALBUMIN 2.8 g/dL (3.0-4.8); ALT/SGPT 23 U/L (7-56); AST/SGOT 35 U/L (14-36); BLOOD UREA NITROGEN 18 mg/dL (7-21); CALCIUM 8.7 mg/dL (8.4-10.5); GFR NON-AFRICAN AMERICAN > 60
--- NOTE | 2018-03-27 07:37 | CP.CCUPN ---
<Mary Mena - Last Filed: 03/27/18 11:40> CCU Subjective - Physician Review Subjective (Free Text): ICU Progress note for Dr. Ana Luisa Mena, PGY 1 Patient seen and examined at bedside this Am.. Patient is arousable, following commands and moving limbs bilaterally. She denies HUNT, CP abdominal pain SOB. No seizure activity observed overnight. 03/27/18 07:36 03/27/18 11:40 CCU Objective - Vital Signs / Intake & Output Vital Signs (Last 4 hours): Vital Signs Resp Pulse Ox 03/27/18 07:27 25 H 100 Intake and Output (Last 8hrs): Intake & Output 03/26/18 03/27/18 03/27/18 22:59 06:59 14:59 Intake Total 1020 571 Output Total 2850 325 Balance -1830 246 Intake: IV 900 571 Left Hand 571 Right Internal Jugular 900 Tube Feeding 120 Output: Urine 2850 325 Urethral (Donahue) 2850 325 Other: # Bowel Movements 3 - Physical Exam Head: Positive for: Atraumatic, Normocephalic Pupils: Positive for: PERRL Mouth: Positive for: Other (Some oropharyngeal trauma and bleeding 2/2 intubation) Respiratory/Chest: Positive for: Clear to Auscultation, Good Air Exchange, Other. Negative for: Respiratory Distress Cardiovascular: Positive for: Regular Rate and Rhythm, Normal S1, S2 Abdomen: Positive for: Distention (nontympanic), Normal Bowel Sounds. Negative for: Tenderness, Guarding Upper Extremity: Positive for: Normal Inspection, NORMAL PULSES. Negative for: Edema Lower Extremity: Positive for: Normal Inspection, NORMAL PULSES. Negative for: Edema Neurological: Positive for: Motor Func Grossly Intact, Normal Sensory Function, Other (following commands alert awake ) Skin: Positive for: Warm, Dry, Normal Color Psychiatric: Positive for: Alert, Normal Affect, Normal Mood, Other - Medications Active Medications: Active Medications Generic Name Dose Route Start Last Admin Trade Name Freq PRN Reason Stop Dose Admin Carvedilol 3.125 mg 03/25/18 18:00 03/26/18 17:33 Coreg PO 3.125 mg BID STEVEN Administration Famotidine 20 mg 03/23/18 10:00 03/26/18 09:55 Pepcid IVP 20 mg DAILY STEVEN Administration Nicardipine HCl 20 mg in 200 mls @ 50 mls/hr 03/24/18 07:57 03/25/18 11:00 Cardene Iv Premix IV Infused .Q4H PRN Titration TITRATE PER MD ORDER Protocol 5 MG/HR Aztreonam 100 mls @ 100 mls/hr 03/25/18 09:00 03/27/18 05:15 Azactam 1 Gm IVPB 04/01/18 09:01 100 mls/hr Q8 STEVEN Administration Protocol Vancomycin HCl 1 gm in 250 mls @ 167 mls/hr 03/25/18 09:00 03/26/18 21:29 Vancomycin 1gm IVPB 167 mls/hr Q12H STEVEN Administration Protocol Levetiracetam 1,000 mg/ Sodium 110 mls @ 460 mls/hr 03/26/18 13:42 03/26/18 21:41 Chloride IV 460 mls/hr Q12 STEVEN Administration Dexmedetomidine HCl 400 mcg in 100 mls @ 3.128 mls/hr 03/26/18 16:36 23:10 Precedex 400mcg/100ml IV 0.2 mcg/kg/hr .Q24H PRN 3.128 mls/hr Agitation Administration Protocol 0.2 MCG/KG/HR Insulin Human Regular 0 units 03/24/18 14:00 03/27/18 02:30 Humulin R Low SC Not Given Q6H STEVEN Protocol Vitamin A 1 ea 03/23/18 17:50 03/24/18 10:19 Vitamin A & D Oint Ud Foilpak TOP 1 ea Q12 PRN Administration apply to dry lips - Patient Studies Lab Studies: Microbiology Studies 03/21/18 18:30 Blood Culture - Final Blood-Venous NO GROWTH AFTER 5 DAYS Gram Stain - Final TEST NOT PERFORMED 03/21/18 18:00 Blood Culture - Final Blood-Venous NO GROWTH AFTER 5 DAYS Gram Stain - Final TEST NOT PERFORMED 03/25/18 11:15 Blood Culture - Preliminary Blood NO GROWTH AFTER 24 HOURS 03/25/18 10:45 Blood Culture - Preliminary Blood NO GROWTH AFTER 24 HOURS Lab Studies 03/27/18 03/27/18 03/27/18 Range/Units 06:30 05:40 02:06 Manual Plt Count (120-450) K/mm3 pCO2 31 L (35-45) mm/Hg pO2 80.0 (80-100) mm/Hg HCO3 22.0 (21-28) mmol/L ABG pH 7.46 H (7.35-7.45) ABG Total CO2 23.0 (22-28) mmol.L ABG O2 Saturation 98.3 H (95-98) % ABG O2 Content 14.7 L (15-23) ML/dl ABG Base Excess -1.2 (-2.0-3.0) mmol/L ABG Hemoglobin 11.0 L (11.7-17.4) g/dL ABG Carboxyhemoglobin 2.2 H (0.5-1.5) % POC ABG HHb (Measured) 1.6 (0-5) % ABG Methemoglobin 1.7 (0.0-3.0) % ABG O2 Capacity 15.0 L (16-24) mL/dl Hgb O2 Saturation 94.5 L (95.0-98.0) % FiO2 50.0 % Sodium 145 (132-148) mmol/L Potassium 3.4 L (3.6-5.0) mmol/L Chloride 116 H (98-107) mmol/L Carbon Dioxide 23 (21-33) mmol/L Anion Gap 10 (10-20) BUN 18 (7-21) mg/dL Creatinine 0.5 L (0.7-1.2) mg/dl Est GFR ( Amer) > 60 Est GFR (Non-Af Amer) > 60 POC Glucose (mg/dL) 110 (65-110) mg/dL Random Glucose 109 (70-110) mg/dL Calcium 8.7 (8.4-10.5) mg/dL Phosphorus 3.2 (2.5-4.5) mg/dL Magnesium 1.9 (1.7-2.2) mg/dL Total Bilirubin 3.6 H (0.2-1.3) mg/dL AST 35 (14-36) U/L ALT 23 (7-56) U/L Alkaline Phosphatase 136 H (38-126) U/L Ammonia (9-33) umol/L Total Protein 6.6 (5.8-8.3) g/dL Albumin 2.8 L (3.0-4.8) g/dL Globulin 3.8 gm/dL Albumin/Globulin Ratio 0.7 L (1.1-1.8) Indir Plt-Bound IgM Ab (NEGATIVE) 03/26/18 03/26/18 03/26/18 Range/Units 21:00 16:15 14:42 Manual Plt Count (120-450) K/mm3 pCO2 (35-45) mm/Hg pO2 (80-100) mm/Hg HCO3 (21-28) mmol/L ABG pH (7.35-7.45) ABG Total CO2 (22-28) mmol.L ABG O2 Saturation (95-98) % ABG O2 Content (15-23) ML/dl ABG Base Excess (-2.0-3.0) mmol/L ABG Hemoglobin (11.7-17.4) g/dL ABG Carboxyhemoglobin (0.5-1.5) % POC ABG HHb (Measured) (0-5) % ABG Methemoglobin (0.0-3.0) % ABG O2 Capacity (16-24) mL/dl Hgb O2 Saturation (95.0-98.0) % FiO2 % Sodium (132-148) mmol/L Potassium (3.6-5.0) mmol/L Chloride (98-107) mmol/L Carbon Dioxide (21-33) mmol/L Anion Gap (10-20) BUN (7-21) mg/dL Creatinine (0.7-1.2) mg/dl Est GFR ( Amer) Est GFR (Non-Af Amer) POC Glucose (mg/dL) 112 H 96 (65-110) mg/dL Random Glucose (70-110) mg/dL Calcium (8.4-10.5) mg/dL Phosphorus (2.5-4.5) mg/dL Magnesium (1.7-2.2) mg/dL Total Bilirubin (0.2-1.3) mg/dL AST (14-36) U/L ALT (7-56) U/L Alkaline Phosphatase (38-126) U/L Ammonia 18 (9-33) umol/L Total Protein (5.8-8.3) g/dL Albumin (3.0-4.8) g/dL Globulin gm/dL Albumin/Globulin Ratio (1.1-1.8) Indir Plt-Bound IgM Ab (NEGATIVE) 03/26/18 03/26/18 03/26/18 Range/Units 08:14 06:00 06:00 Manual Plt Count 86 L (120-450) K/mm3 pCO2 (35-45) mm/Hg pO2 (80-100) mm/Hg HCO3 (21-28) mmol/L ABG pH (7.35-7.45) ABG Total CO2 (22-28) mmol.L ABG O2 Saturation (95-98) % ABG O2 Content (15-23) ML/dl ABG Base Excess (-2.0-3.0) mmol/L ABG Hemoglobin (11.7-17.4) g/dL ABG Carboxyhemoglobin (0.5-1.5) % POC ABG HHb (Measured) (0-5) % ABG Methemoglobin (0.0-3.0) % ABG O2 Capacity (16-24) mL/dl Hgb O2 Saturation (95.0-98.0) % FiO2 % Sodium 145 (132-148) mmol/L Potassium 3.1 L (3.6-5.0) mmol/L Chloride 118 H (98-107) mmol/L Carbon Dioxide 20 L (21-33) mmol/L Anion Gap 10 (10-20) BUN 12 (7-21) mg/dL Creatinine 0.5 L (0.7-1.2) mg/dl Est GFR ( Amer) > 60 Est GFR (Non-Af Amer) > 60 POC Glucose (mg/dL) 123 H (65-110) mg/dL Random Glucose 114 H (70-110) mg/dL Calcium 8.3 L (8.4-10.5) mg/dL Phosphorus 2.6 (2.5-4.5) mg/dL Magnesium 1.7 (1.7-2.2) mg/dL Total Bilirubin 4.3 H (0.2-1.3) mg/dL AST 39 H (14-36) U/L ALT 23 (7-56) U/L Alkaline Phosphatase 130 H (38-126) U/L Ammonia (9-33) umol/L Total Protein 6.4 (5.8-8.3) g/dL Albumin 2.8 L (3.0-4.8) g/dL Globulin 3.7 gm/dL Albumin/Globulin Ratio 0.7 L (1.1-1.8) Indir Plt-Bound IgM Ab (NEGATIVE) 03/23/18 Range/Units 06:00 Manual Plt Count (120-450) K/mm3 pCO2 (35-45) mm/Hg pO2 (80-100) mm/Hg HCO3 (21-28) mmol/L ABG pH (7.35-7.45) ABG Total CO2 (22-28) mmol.L ABG O2 Saturation (95-98) % ABG O2 Content (15-23) ML/dl ABG Base Excess (-2.0-3.0) mmol/L ABG Hemoglobin (11.7-17.4) g/dL ABG Carboxyhemoglobin (0.5-1.5) % POC ABG HHb (Measured) (0-5) % ABG Methemoglobin (0.0-3.0) % ABG O2 Capacity (16-24) mL/dl Hgb O2 Saturation (95.0-98.0) % FiO2 % Sodium (132-148) mmol/L Potassium (3.6-5.0) mmol/L Chloride (98-107) mmol/L Carbon Dioxide (21-33) mmol/L Anion Gap (10-20) BUN (7-21) mg/dL Creatinine (0.7-1.2) mg/dl Est GFR ( Amer) Est GFR (Non-Af Amer) POC Glucose (mg/dL) (65-110) mg/dL Random Glucose (70-110) mg/dL Calcium (8.4-10.5) mg/dL Phosphorus (2.5-4.5) mg/dL Magnesium (1.7-2.2) mg/dL Total Bilirubin (0.2-1.3) mg/dL AST (14-36) U/L ALT (7-56) U/L Alkaline Phosphatase (38-126) U/L Ammonia (9-33) umol/L Total Protein (5.8-8.3) g/dL Albumin (3.0-4.8) g/dL Globulin gm/dL Albumin/Globulin Ratio (1.1-1.8) Indir Plt-Bound IgM Ab Negative (NEGATIVE) Laboratory Results - last 24 hr 03/23/18 03/26/18 03/26/18 06:00 06:00 06:00 Manual Plt Count 86 L pCO2 pO2 HCO3 ABG pH ABG Total CO2 ABG O2 Saturation ABG O2 Content ABG Base Excess ABG Hemoglobin ABG Carboxyhemoglobin POC ABG HHb (Measured) ABG Methemoglobin ABG O2 Capacity Hgb O2 Saturation FiO2 Sodium 145 Potassium 3.1 L Chloride 118 H Carbon Dioxide 20 L Anion Gap 10 BUN 12 Creatinine 0.5 L Est GFR ( Amer) > 60 Est GFR (Non-Af Amer) > 60 POC Glucose (mg/dL) Random Glucose 114 H Calcium 8.3 L Phosphorus 2.6 Magnesium 1.7 Total Bilirubin 4.3 H AST 39 H ALT 23 Alkaline Phosphatase 130 H Ammonia Total Protein 6.4 Albumin 2.8 L Globulin 3.7 Albumin/Globulin Ratio 0.7 L Indir Plt-Bound IgM Ab Negative 03/26/18 03/26/18 03/26/18 08:14 14:42 16:15 Manual Plt Count pCO2 pO2 HCO3 ABG pH ABG Total CO2 ABG O2 Saturation ABG O2 Content ABG Base Excess ABG Hemoglobin ABG Carboxyhemoglobin POC ABG HHb (Measured) ABG Methemoglobin ABG O2 Capacity Hgb O2 Saturation FiO2 Sodium Potassium Chloride Carbon Dioxide Anion Gap BUN Creatinine Est GFR ( Amer) Est GFR (Non-Af Amer) POC Glucose (mg/dL) 123 H 96 Random Glucose Calcium Phosphorus Magnesium Total Bilirubin AST ALT Alkaline Phosphatase Ammonia 18 Total Protein Albumin Globulin Albumin/Globulin Ratio Indir Plt-Bound IgM Ab 03/26/18 03/27/18 03/27/18 21:00 02:06 05:40 Manual Plt Count pCO2 pO2 HCO3 ABG pH ABG Total CO2 ABG O2 Saturation ABG O2 Content ABG Base Excess ABG Hemoglobin ABG Carboxyhemoglobin POC ABG HHb (Measured) ABG Methemoglobin ABG O2 Capacity Hgb O2 Saturation FiO2 Sodium 145 Potassium 3.4 L Chloride 116 H Carbon Dioxide 23 Anion Gap 10 BUN 18 Creatinine 0.5 L Est GFR ( Amer) > 60 Est GFR (Non-Af Amer) > 60 POC Glucose (mg/dL) 112 H 110 Random Glucose 109 Calcium 8.7 Phosphorus 3.2 Magnesium 1.9 Total Bilirubin 3.6 H AST 35 ALT 23 Alkaline Phosphatase 136 H Ammonia Total Protein 6.6 Albumin 2.8 L Globulin 3.8 Albumin/Globulin Ratio 0.7 L Indir Plt-Bound IgM Ab 03/27/18 06:30 Manual Plt Count pCO2 31 L pO2 80.0 HCO3 22.0 ABG pH 7.46 H ABG Total CO2 23.0 ABG O2 Saturation 98.3 H ABG O2 Content 14.7 L ABG Base Excess -1.2 ABG Hemoglobin 11.0 L ABG Carboxyhemoglobin 2.2 H POC ABG HHb (Measured) 1.6 ABG Methemoglobin 1.7 ABG O2 Capacity 15.0 L Hgb O2 Saturation 94.5 L FiO2 50.0 Sodium Potassium Chloride Carbon Dioxide Anion Gap BUN Creatinine Est GFR ( Amer) Est GFR (Non-Af Amer) POC Glucose (mg/dL) Random Glucose Calcium Phosphorus Magnesium Total Bilirubin AST ALT Alkaline Phosphatase Ammonia Total Protein Albumin Globulin Albumin/Globulin Ratio Indir Plt-Bound IgM Ab Fingerstick Blood Sugar Results: 110 Review of Systems - Review of Systems All systems: reviewed and no additional remarkable complaints except Review of Systems: as per HPI Assessment/Plan - Assessment and Plan (Free Text) Assessment: 62 year old female with PMH cirrhosis, esophageal varices s/p banding 2014, spinal stenosis, arthritis, alcohol abuse, [place] [facility] after a seizure at home, requiring intubation in ED. Found to have 2x2 CM L occipital hemorrhagic stroke which progressed to 5x5 03/22 AM. Extubated this Am after meeting criteria, no fevers overnight, no longer sedated, overall neuro status improving Plan: Neuro : - patient extubated successfully this am after at least 30 min on pressure support, patient was alert moving all extremities, good cough effort and following commands prior to and after extubation - Will keep BP goals: SBP 120-140/80-90. - C/w keppra 500 BID - Neurosurgery on board. No acute surgical intervention. Keep HOB>30 degrees. - Neurology Following - Seizure precautions, neuro checks. - 03/21 CT head showed hemorrhage within the medial left occipital lobe measuring approximately 2.8 x 2.8 cm with associated edema/necrosis. This finding exerts mass effect on the atrium of the ventricles anterior laterally. Location of this hemorrhage is atypical for hypertensive hemorrhage. Considerations include atypical hypertensive hemorrhage, underlying vascular lesion, hemorrhagic tumor is considered less likely. - 03/22 CT Head showed increasing left occipital lobe hemorrhage 5.3x3.3cm from 2.2x2.2cm. Intraventricular extension of hemorrhage involving left lateral and 3rd ventricles. Increasing dilatation of the left lateral ventricle. - 03/23 CTA no AVM, no aneurysm, no stenosis or blockage, hemorrhage stable in size - 03/24 CT head no change, stable hemorrhage -03/25; MRI shows stable hemorrhage no underlying tumor CV: - Keep BP goal 120-140/80-90. - cardene drip available as needed - Continue to monitor. Pulm: - Maintain O2 sat>92-94% - extubated successfully today after >30 min on CPAP, following commands, alert , good cough - Continue with HOB elevation> 35 degrees, aspiration precautions. - ABG 7.46/ CO2 / 80/ HCO3 22 - CXR improving GI: - ammonia normal - will wait to restart feeds until swallow study completed - GI following Renal : - BUN/Cr 18/0.5 - UOP appropriate - Replace lytes, maintain euvolemia. - Continue to monitor. ID: - Tmax 99.9, wbc 7.8 - Ucx and Bcx negative to date - c/w abx per ID recs - ID Following - all previous cultures negative to date - CXR improving Endo: Maintain euglycemia. Heme: - Patient historically has had thrombocytopenia - PLT 46 - Hematology consulted for thrombocytopenia - Hgb 9.7 - Total bili 4.3 DVT ppx - SCDs in setting of brain hemorrhage GI ppx - Protonix - Date & Time Date: 03/27/18 <Dylan Orosco - Last Filed: 03/27/18 13:13> CCU Objective - Vital Signs / Intake & Output Vital Signs (Last 4 hours): Vital Signs Pulse BP 03/27/18 10:30 81 138/78 Intake and Output (Last 8hrs): Intake & Output 03/26/18 03/27/18 03/27/18 22:59 06:59 14:59 Intake Total 1020 571 Output Total 2850 325 Balance -1830 246 Intake: IV 900 571 Left Hand 571 Right Internal Jugular 900 Tube Feeding 120 Output: Urine 2850 325 Urethral (Donahue) 2850 325 Other: # Bowel Movements 3 - Medications Active Medications: Active Medications Generic Name Dose Route Start Last Admin Trade Name Freq PRN Reason Stop Dose Admin Carvedilol 3.125 mg 03/25/18 18:00 03/27/18 10:30 Coreg PO 3.125 mg BID STEVEN Administration Famotidine 20 mg 03/23/18 10:00 03/27/18 11:00 Pepcid IVP 20 mg DAILY STEVEN Administration Nicardipine HCl 20 mg in 200 mls @ 50 mls/hr 03/24/18 07:57 03/25/18 11:00 Cardene Iv Premix IV Infused .Q4H PRN Titration TITRATE PER MD ORDER Protocol 5 MG/HR Aztreonam 100 mls @ 100 mls/hr 03/25/18 09:00 03/27/18 05:15 Azactam 1 Gm IVPB 04/01/18 09:01 100 mls/hr Q8 STEVEN Administration Protocol Vancomycin HCl 1 gm in 250 mls @ 167 mls/hr 03/25/18 09:00 03/27/18 10:38 Vancomycin 1gm IVPB 167 mls/hr Q12H STEVEN Administration Protocol Levetiracetam 1,000 mg/ Sodium 110 mls @ 460 mls/hr 03/26/18 13:42 03/27/18 10:32 Chloride IV 460 mls/hr Q12 STEVEN Administration Dexmedetomidine HCl 400 mcg in 100 mls @ 3.128 mls/hr 03/26/18 16:36 23:10 Precedex 400mcg/100ml IV 0.2 mcg/kg/hr .Q24H PRN 3.128 mls/hr Agitation Administration Protocol 0.2 MCG/KG/HR Potassium Phosphate 30 mmole/ 260 mls @ 42.5 mls/hr 03/27/18 08:45 03/27/18 10:36 Sodium Chloride IVPB 03/27/18 14:52 42.5 mls/hr ONCE ONE Administration Insulin Human Regular 0 units 03/24/18 14:00 03/27/18 08:00 Humulin R Low SC Not Given Q6H STEVEN Protocol Vitamin A 1 ea 03/23/18 17:50 03/24/18 10:19 Vitamin A & D Oint Ud Foilpak TOP 1 ea Q12 PRN Administration apply to dry lips - Patient Studies Lab Studies: Microbiology Studies 03/25/18 11:15 Blood Culture - Preliminary Blood NO GROWTH AFTER 48 HOURS 03/25/18 22:30 Urine Culture - Preliminary Urine,Donahue Gram Negative Angelo 03/25/18 10:45 Blood Culture - Preliminary Blood NO GROWTH AFTER 48 HOURS 03/21/18 18:30 Blood Culture - Final Blood-Venous NO GROWTH AFTER 5 DAYS Gram Stain - Final TEST NOT PERFORMED 03/21/18 18:00 Blood Culture - Final Blood-Venous NO GROWTH AFTER 5 DAYS Gram Stain - Final TEST NOT PERFORMED Lab Studies 03/27/18 03/27/18 03/27/18 Range/Units 07:57 06:30 06:30 WBC (4.5-11.0) 10^3/ul RBC (3.5-6.1) 10^6/uL Hgb (12.0-16.0) g/dL Hct (36.0-48.0) % MCV (80.0-105.0) fl MCH (25.0-35.0) pg MCHC (31.0-37.0) g/dl RDW (11.5-14.5) % Plt Count (120.0-450.0) 10^3/uL Manual Plt Count 60 L (120-450) K/mm3 MPV (7.0-11.0) fl Gran % (50.0-68.0) % Lymph % (Auto) (22.0-35.0) % Spink % (Auto) (1.0-6.0) % Eos % (Auto) (1.5-5.0) % Baso % (Auto) (0.0-3.0) % Gran # (1.4-6.5) Lymph # (Auto) (1.2-3.4) Spink # (Auto) (0.1-0.6) Eos # (Auto) (0.0-0.7) Baso # (Auto) (0.0-2.0) K/mm3 Platelet Evaluation (NORMAL) pCO2 31 L (35-45) mm/Hg pO2 80.0 (80-100) mm/Hg HCO3 22.0 (21-28) mmol/L ABG pH 7.46 H (7.35-7.45) ABG Total CO2 23.0 (22-28) mmol.L ABG O2 Saturation 98.3 H (95-98) % ABG O2 Content 14.7 L (15-23) ML/dl ABG Base Excess -1.2 (-2.0-3.0) mmol/L ABG Hemoglobin 11.0 L (11.7-17.4) g/dL ABG Carboxyhemoglobin 2.2 H (0.5-1.5) % POC ABG HHb (Measured) 1.6 (0-5) % ABG Methemoglobin 1.7 (0.0-3.0) % ABG O2 Capacity 15.0 L (16-24) mL/dl Hgb O2 Saturation 94.5 L (95.0-98.0) % FiO2 50.0 % Sodium (132-148) mmol/L Potassium (3.6-5.0) mmol/L Chloride (98-107) mmol/L Carbon Dioxide (21-33) mmol/L Anion Gap (10-20) BUN (7-21) mg/dL Creatinine (0.7-1.2) mg/dl Est GFR ( Amer) Est GFR (Non-Af Amer) POC Glucose (mg/dL) 103 (65-110) mg/dL Random Glucose (70-110) mg/dL Calcium (8.4-10.5) mg/dL Phosphorus (2.5-4.5) mg/dL Magnesium (1.7-2.2) mg/dL Total Bilirubin (0.2-1.3) mg/dL AST (14-36) U/L ALT (7-56) U/L Alkaline Phosphatase (38-126) U/L Ammonia (9-33) umol/L Total Protein (5.8-8.3) g/dL Albumin (3.0-4.8) g/dL Globulin gm/dL Albumin/Globulin Ratio (1.1-1.8) Indir Plt-Bound IgM Ab (NEGATIVE) 03/27/18 03/27/18 03/27/18 Range/Units 05:40 05:40 02:06 WBC 7.8 D (4.5-11.0) 10^3/ul RBC 3.06 L (3.5-6.1) 10^6/uL Hgb 9.7 L (12.0-16.0) g/dL Hct 29.1 L (36.0-48.0) % MCV 95.1 (80.0-105.0) fl MCH 31.7 (25.0-35.0) pg MCHC 33.3 (31.0-37.0) g/dl RDW 16.8 H (11.5-14.5) % Plt Count 47 L* (120.0-450.0) 10^3/uL Manual Plt Count (120-450) K/mm3 MPV 10.6 (7.0-11.0) fl Gran % 75.4 H (50.0-68.0) % Lymph % (Auto) 8.9 L (22.0-35.0) % Spink % (Auto) 12.9 H (1.0-6.0) % Eos % (Auto) 2.7 (1.5-5.0) % Baso % (Auto) 0.1 (0.0-3.0) % Gran # 5.87 (1.4-6.5) Lymph # (Auto) 0.7 L (1.2-3.4) Spink # (Auto) 1.0 H (0.1-0.6) Eos # (Auto) 0.2 (0.0-0.7) Baso # (Auto) 0.01 (0.0-2.0) K/mm3 Platelet Evaluation Low (NORMAL) pCO2 (35-45) mm/Hg pO2 (80-100) mm/Hg HCO3 (21-28) mmol/L ABG pH (7.35-7.45) ABG Total CO2 (22-28) mmol.L ABG O2 Saturation (95-98) % ABG O2 Content (15-23) ML/dl ABG Base Excess (-2.0-3.0) mmol/L ABG Hemoglobin (11.7-17.4) g/dL ABG Carboxyhemoglobin (0.5-1.5) % POC ABG HHb (Measured) (0-5) % ABG Methemoglobin (0.0-3.0) % ABG O2 Capacity (16-24) mL/dl Hgb O2 Saturation (95.0-98.0) % FiO2 % Sodium 145 (132-148) mmol/L Potassium 3.4 L (3.6-5.0) mmol/L Chloride 116 H (98-107) mmol/L Carbon Dioxide 23 (21-33) mmol/L Anion Gap 10 (10-20) BUN 18 (7-21) mg/dL Creatinine 0.5 L (0.7-1.2) mg/dl Est GFR ( Amer) > 60 Est GFR (Non-Af Amer) > 60 POC Glucose (mg/dL) 110 (65-110) mg/dL Random Glucose 109 (70-110) mg/dL Calcium 8.7 (8.4-10.5) mg/dL Phosphorus 3.2 (2.5-4.5) mg/dL Magnesium 1.9 (1.7-2.2) mg/dL Total Bilirubin 3.6 H (0.2-1.3) mg/dL AST 35 (14-36) U/L ALT 23 (7-56) U/L Alkaline Phosphatase 136 H (38-126) U/L Ammonia (9-33) umol/L Total Protein 6.6 (5.8-8.3) g/dL Albumin 2.8 L (3.0-4.8) g/dL Globulin 3.8 gm/dL Albumin/Globulin Ratio 0.7 L (1.1-1.8) Indir Plt-Bound IgM Ab (NEGATIVE) 03/26/18 03/26/18 03/26/18 Range/Units 21:00 16:15 14:42 WBC (4.5-11.0) 10^3/ul RBC (3.5-6.1) 10^6/uL Hgb (12.0-16.0) g/dL Hct (36.0-48.0) % MCV (80.0-105.0) fl MCH (25.0-35.0) pg MCHC (31.0-37.0) g/dl RDW (11.5-14.5) % Plt Count (120.0-450.0) 10^3/uL Manual Plt Count (120-450) K/mm3 MPV (7.0-11.0) fl Gran % (50.0-68.0) % Lymph % (Auto) (22.0-35.0) % Spink % (Auto) (1.0-6.0) % Eos % (Auto) (1.5-5.0) % Baso % (Auto) (0.0-3.0) % Gran # (1.4-6.5) Lymph # (Auto) (1.2-3.4) Spink # (Auto) (0.1-0.6) Eos # (Auto) (0.0-0.7) Baso # (Auto) (0.0-2.0) K/mm3 Platelet Evaluation (NORMAL) pCO2 (35-45) mm/Hg pO2 (80-100) mm/Hg HCO3 (21-28) mmol/L ABG pH (7.35-7.45) ABG Total CO2 (22-28) mmol.L ABG O2 Saturation (95-98) % ABG O2 Content (15-23) ML/dl ABG Base Excess (-2.0-3.0) mmol/L ABG Hemoglobin (11.7-17.4) g/dL ABG Carboxyhemoglobin (0.5-1.5) % POC ABG HHb (Measured) (0-5) % ABG Methemoglobin (0.0-3.0) % ABG O2 Capacity (16-24) mL/dl Hgb O2 Saturation (95.0-98.0) % FiO2 % Sodium (132-148) mmol/L Potassium (3.6-5.0) mmol/L Chloride (98-107) mmol/L Carbon Dioxide (21-33) mmol/L Anion Gap (10-20) BUN (7-21) mg/dL Creatinine (0.7-1.2) mg/dl Est GFR ( Amer) Est GFR (Non-Af Amer) POC Glucose (mg/dL) 112 H 96 (65-110) mg/dL Random Glucose (70-110) mg/dL Calcium (8.4-10.5) mg/dL Phosphorus (2.5-4.5) mg/dL Magnesium (1.7-2.2) mg/dL Total Bilirubin (0.2-1.3) mg/dL AST (14-36) U/L ALT (7-56) U/L Alkaline Phosphatase (38-126) U/L Ammonia 18 (9-33) umol/L Total Protein (5.8-8.3) g/dL Albumin (3.0-4.8) g/dL Globulin gm/dL Albumin/Globulin Ratio (1.1-1.8) Indir Plt-Bound IgM Ab (NEGATIVE) 03/23/18 Range/Units 06:00 WBC (4.5-11.0) 10^3/ul RBC (3.5-6.1) 10^6/uL Hgb (12.0-16.0) g/dL Hct (36.0-48.0) % MCV (80.0-105.0) fl MCH (25.0-35.0) pg MCHC (31.0-37.0) g/dl RDW (11.5-14.5) % Plt Count (120.0-450.0) 10^3/uL Manual Plt Count (120-450) K/mm3 MPV (7.0-11.0) fl Gran % (50.0-68.0) % Lymph % (Auto) (22.0-35.0) % Spink % (Auto) (1.0-6.0) % Eos % (Auto) (1.5-5.0) % Baso % (Auto) (0.0-3.0) % Gran # (1.4-6.5) Lymph # (Auto) (1.2-3.4) Spink # (Auto) (0.1-0.6) Eos # (Auto) (0.0-0.7) Baso # (Auto) (0.0-2.0) K/mm3 Platelet Evaluation (NORMAL) pCO2 (35-45) mm/Hg pO2 (80-100) mm/Hg HCO3 (21-28) mmol/L ABG pH (7.35-7.45) ABG Total CO2 (22-28) mmol.L ABG O2 Saturation (95-98) % ABG O2 Content (15-23) ML/dl ABG Base Excess (-2.0-3.0) mmol/L ABG Hemoglobin (11.7-17.4) g/dL ABG Carboxyhemoglobin (0.5-1.5) % POC ABG HHb (Measured) (0-5) % ABG Methemoglobin (0.0-3.0) % ABG O2 Capacity (16-24) mL/dl Hgb O2 Saturation (95.0-98.0) % FiO2 % Sodium (132-148) mmol/L Potassium (3.6-5.0) mmol/L Chloride (98-107) mmol/L Carbon Dioxide (21-33) mmol/L Anion Gap (10-20) BUN (7-21) mg/dL Creatinine (0.7-1.2) mg/dl Est GFR ( Amer) Est GFR (Non-Af Amer) POC Glucose (mg/dL) (65-110) mg/dL Random Glucose (70-110) mg/dL Calcium (8.4-10.5) mg/dL Phosphorus (2.5-4.5) mg/dL Magnesium (1.7-2.2) mg/dL Total Bilirubin (0.2-1.3) mg/dL AST (14-36) U/L ALT (7-56) U/L Alkaline Phosphatase (38-126) U/L Ammonia (9-33) umol/L Total Protein (5.8-8.3) g/dL Albumin (3.0-4.8) g/dL Globulin gm/dL Albumin/Globulin Ratio (1.1-1.8) Indir Plt-Bound IgM Ab Negative (NEGATIVE) Laboratory Results - last 24 hr 03/23/18 03/26/18 03/26/18 06:00 14:42 16:15 WBC RBC Hgb Hct MCV MCH MCHC RDW Plt Count Manual Plt Count MPV Gran % Lymph % (Auto) Spink % (Auto) Eos % (Auto) Baso % (Auto) Gran # Lymph # (Auto) Spink # (Auto) Eos # (Auto) Baso # (Auto) Platelet Evaluation pCO2 pO2 HCO3 ABG pH ABG Total CO2 ABG O2 Saturation ABG O2 Content ABG Base Excess ABG Hemoglobin ABG Carboxyhemoglobin POC ABG HHb (Measured) ABG Methemoglobin ABG O2 Capacity Hgb O2 Saturation FiO2 Sodium Potassium Chloride Carbon Dioxide Anion Gap BUN Creatinine Est GFR ( Amer) Est GFR (Non-Af Amer) POC Glucose (mg/dL) 96 Random Glucose Calcium Phosphorus Magnesium Total Bilirubin AST ALT Alkaline Phosphatase Ammonia 18 Total Protein Albumin Globulin Albumin/Globulin Ratio Indir Plt-Bound IgM Ab Negative 03/26/18 03/27/18 03/27/18 21:00 02:06 05:40 WBC 7.8 D RBC 3.06 L Hgb 9.7 L Hct 29.1 L MCV 95.1 MCH 31.7 MCHC 33.3 RDW 16.8 H Plt Count 47 L* Manual Plt Count MPV 10.6 Gran % 75.4 H Lymph % (Auto) 8.9 L Spink % (Auto) 12.9 H Eos % (Auto) 2.7 Baso % (Auto) 0.1 Gran # 5.87 Lymph # (Auto) 0.7 L Spink # (Auto) 1.0 H Eos # (Auto) 0.2 Baso # (Auto) 0.01 Platelet Evaluation Low pCO2 pO2 HCO3 ABG pH ABG Total CO2 ABG O2 Saturation ABG O2 Content ABG Base Excess ABG Hemoglobin ABG Carboxyhemoglobin POC ABG HHb (Measured) ABG Methemoglobin ABG O2 Capacity Hgb O2 Saturation FiO2 Sodium Potassium Chloride Carbon Dioxide Anion Gap BUN Creatinine Est GFR ( Amer) Est GFR (Non-Af Amer) POC Glucose (mg/dL) 112 H 110 Random Glucose Calcium Phosphorus Magnesium Total Bilirubin AST ALT Alkaline Phosphatase Ammonia Total Protein Albumin Globulin Albumin/Globulin Ratio Indir Plt-Bound IgM Ab 03/27/18 03/27/18 03/27/18 05:40 06:30 06:30 WBC RBC Hgb Hct MCV MCH MCHC RDW Plt Count Manual Plt Count 60 L MPV Gran % Lymph % (Auto) Spink % (Auto) Eos % (Auto) Baso % (Auto) Gran # Lymph # (Auto) Spink # (Auto) Eos # (Auto) Baso # (Auto) Platelet Evaluation pCO2 31 L pO2 80.0 HCO3 22.0 ABG pH 7.46 H ABG Total CO2 23.0 ABG O2 Saturation 98.3 H ABG O2 Content 14.7 L ABG Base Excess -1.2 ABG Hemoglobin 11.0 L ABG Carboxyhemoglobin 2.2 H POC ABG HHb (Measured) 1.6 ABG Methemoglobin 1.7 ABG O2 Capacity 15.0 L Hgb O2 Saturation 94.5 L FiO2 50.0 Sodium 145 Potassium 3.4 L Chloride 116 H Carbon Dioxide 23 Anion Gap 10 BUN 18 Creatinine 0.5 L Est GFR ( Amer) > 60 Est GFR (Non-Af Amer) > 60 POC Glucose (mg/dL) Random Glucose 109 Calcium 8.7 Phosphorus 3.2 Magnesium 1.9 Total Bilirubin 3.6 H AST 35 ALT 23 Alkaline Phosphatase 136 H Ammonia Total Protein 6.6 Albumin 2.8 L Globulin 3.8 Albumin/Globulin Ratio 0.7 L Indir Plt-Bound IgM Ab 03/27/18 07:57 WBC RBC Hgb Hct MCV MCH MCHC RDW Plt Count Manual Plt Count MPV Gran % Lymph % (Auto) Spink % (Auto) Eos % (Auto) Baso % (Auto) Gran # Lymph # (Auto) Spink # (Auto) Eos # (Auto) Baso # (Auto) Platelet Evaluation pCO2 pO2 HCO3 ABG pH ABG Total CO2 ABG O2 Saturation ABG O2 Content ABG Base Excess ABG Hemoglobin ABG Carboxyhemoglobin POC ABG HHb (Measured) ABG Methemoglobin ABG O2 Capacity Hgb O2 Saturation FiO2 Sodium Potassium Chloride Carbon Dioxide Anion Gap BUN Creatinine Est GFR ( Amer) Est GFR (Non-Af Amer) POC Glucose (mg/dL) 103 Random Glucose Calcium Phosphorus Magnesium Total Bilirubin AST ALT Alkaline Phosphatase Ammonia Total Protein Albumin Globulin Albumin/Globulin Ratio Indir Plt-Bound IgM Ab Assessment/Plan - Assessment and Plan (Free Text) Plan: Patient seen and examined on rounds with resident, agree with note with following additions/exceptions: Patient is 62yo female admitted with IPH, resp failure. Labs, imaging, chart reviewed. Repeat CT head with stable IPH Patient this morning placed on pressure support, CPAP, RSBI 40-50,awake, alert, follows commands, subsequently extubated. Currently afebrile, BP stable, comfortable in NAD, AAOx2 Neurology following. Patient with fevers, likely central fevers, cultures negative. IPH Resp failure AMS r/o Seizure Fever Recommend: - cont with supp o2 as needed, duonebs prn - would DC abx, cultures thus far negative - BP control - speech swallow eval - FS control - Tylenol PRN - GI ppx - DVT ppx, SCDs - Monitor in MICU Critical care time 35 minutes
[2018-03-27 07:45] LABS: PLATELET COUNT 47 10^3/uL (120.0-450.0)
--- NOTE | 2018-03-27 07:52 | CP.PCM.PN ---
Subjective - Date & Time of Evaluation Date of Evaluation: 03/27/18 Time of Evaluation: 09:00 - Subjective Subjective: PGY-1 Jaimie Butler D.O. Neurology progress note for Dr. Stearns's service: Patient is seen and examined this morning. No clinical seizure activity reported. Patient is off sedation and has been successfully extubated. Patient is awake and alert. She is able to respond to questioning and follow commands. She states she wants water. She is also concerned about her front tooth that is loose. She is not able to look to the right, and seems to have some R-sided neglect of her visual field. Objective - Vital Signs/Intake and Output Vital Signs (last 24 hours): Temp Pulse Resp BP Pulse Ox 99.9 F H 96 H 25 H 126/69 100 03/26/18 19:30 03/27/18 02:00 03/27/18 07:27 03/26/18 19:30 03/27/18 07:27 Intake and Output: 03/27/18 03/27/18 06:59 18:59 Intake Total 1591 Output Total 3175 Balance -1584 - Medications Medications: Current Medications Carvedilol (Coreg) 3.125 mg PO BID [facility] Last Admin: 03/26/18 17:33 Dose: 3.125 mg Famotidine (Pepcid) 20 mg IVP DAILY [facility] Last Admin: 03/26/18 09:55 Dose: 20 mg Nicardipine HCl (Cardene Iv Premix) 20 mg in 200 mls @ 50 mls/hr IV .Q4H PRN; Protocol; 5 MG/HR PRN Reason: TITRATE PER MD ORDER Last Titration: 03/25/18 11:00 Dose: Infused Aztreonam (Azactam 1 Gm) 100 mls @ 100 mls/hr IVPB Q8 STEVEN PRN Reason: Protocol Stop: 04/01/18 09:01 Last Admin: 03/27/18 05:15 Dose: 100 mls/hr Vancomycin HCl (Vancomycin 1gm) 1 gm in 250 mls @ 167 mls/hr IVPB Q12H STEVEN PRN Reason: Protocol Last Admin: 03/26/18 21:29 Dose: 167 mls/hr Levetiracetam 1,000 mg/ Sodium (Chloride) 110 mls @ 460 mls/hr IV Q12 STEVEN Last Admin: 03/26/18 21:41 Dose: 460 mls/hr Dexmedetomidine HCl (Precedex 400mcg/100ml) 400 mcg in 100 mls @ 3.128 mls/hr IV .Q24H PRN; Protocol; 0.2 MCG/KG/HR PRN Reason: Agitation Last Admin: 03/26/18 23:10 Dose: 0.2 mcg/kg/hr, 3.128 mls/hr Insulin Human Regular (Humulin R Low) 0 units SC Q6H STEVEN PRN Reason: Protocol Last Admin: 03/27/18 02:30 Dose: Not Given Vitamin A (Vitamin A & D Oint Ud Foilpak) 1 ea TOP Q12 PRN PRN Reason: apply to dry lips Last Admin: 03/24/18 10:19 Dose: 1 ea - Labs Labs: 03/27/18 05:40 03/27/18 05:40 PT 20.2 SECONDS (9.4-12.5) H 03/25/18 05:40 INR 1.74 03/25/18 05:40 APTT 31.5 Seconds (25.1-36.5) 03/25/18 05:40 - Constitutional Appears: No Acute Distress, Older Than Stated Age - Head Exam Head Exam: ATRAUMATIC, NORMAL INSPECTION, NORMOCEPHALIC - Eye Exam Eye Exam: PERRL, Scleral icterus Additional comments: R-sided neglect - ENT Exam ENT Exam: Mucous Membranes Dry Additional comments: multiple loose and missing teeth 2/2 intubation dried blood in and around oral mucosa NGT in place with feeds running - Neck Exam Neck Exam: Normal Inspection - Respiratory Exam Respiratory Exam: NORMAL BREATHING PATTERN - Cardiovascular Exam Cardiovascular Exam: REGULAR RHYTHM - GI/Abdominal Exam GI & Abdominal Exam: Soft - Rectal Exam Rectal Exam: Deferred - Extremities Exam Extremities Exam: Normal Capillary Refill, Normal Inspection - Neurological Exam Neurological Exam: Alert, Awake, Reflexes Normal Neuro motor strength exam: Left Upper Extremity: 4, Right Upper Extremity: 4, Left Lower Extremity: 4, Right Lower Extremity: 4 Additional comments: patient can respond to questions appropriately her voice is low and hoarse 2/2 intubation patient nods when explained that she is in the hospital- appears to be oriented - Skin Skin Exam: Dry, Normal Color, Warm Assessment and Plan - Assessment and Plan (Free Text) Assessment: Patient is a 62 yo female with a history of alcohol abuse who presented after witnessed seizure activity at home. CT head revealed acute L occipital hemorrhage with initial increase in size and edema and herniation. Subsequent CT shows stable size. MRI also showed stability of bleed with vasogenic edema. No evidence of underlying mass on MRI. Patient is off sedation and was successfully extubated. No intervention by neurosurgery indicated at this time. Continuous video EEG prior to extubation was consistent with epileptiform activity and toxic metabolic encephalopathy. No clinical seizure activity observed. Keppra dose increased to 1000 bid. Patient is now alert and responsive. Consider mets underlying hemorrhage (melanoma, breast, thyroid) vs HTN. No discrete liver mass visualized on u/s- recommend CT A/P. No AVM/venous anomaly seen on CTA. Plan: Seizure, new onset- 2/2 intracranial L occipital hemorrhage with possible underlying mass +/- low platelets +/- alcohol withdrawal - CT head on admission 03/21: Hemorrhage is noted within the medial left occipital lobe measuring approximately 2.8 x 2.8 cm with associated edema/necrosis. This finding exerts mass effect on the atrium of the ventricles anterior laterally. Location of this hemorrhage is atypical for hypertensive hemorrhage. Considerations include atypical hypertensive hemorrhage, underlying vascular lesion, hemorrhagic tumor is considered less likely. - Repeat CT head 03/22: Within the left occipital parietal lobe there is increasing region of hemorrhage measuring approximately 5.3 x 3.3 cm, previously approximately 2.2 x 2.2 cm. Interval development of intraventricular extension of hemorrhage involving the lateral and 3rd ventricles. Increasing dilatation of the left lateral ventricle suggests a degree of CSF flow obstruction. Spleen and left occipital parietal low-attenuation consistent with edema/infarction. - Repeat CT head 03/24: Stable appearance of left parietal hemorrhage. - CTA head and neck: Slightly prominent vessels in the left occipital lobe around the left occipital parenchymal hemorrhage without definite CTA evidence of AVM or other vascular anomaly. No evidence of aneurysm. No evidence of major vascular occlusion or critical stenosis. - MRI brain 03/26: acute hemorrhage unchanged in size, moderate amount of surrounding vasogenic edema, no evidence of underlying tumor - Consider repeat MRI in near future - Continuous EEG ~36 hours (03/24-03/26): Occasional bi-frontal sharps with triphaisc Morphology, Left Hemispheric slowing -->consistent with epileptic focus and toxic metabolic encephalopathy - Seizure precautions - Maintain SBP 110s-140s- Cardene drip discontinued due to hypo-normotensive - HOB elevated >30 degrees - Keppra 1000 mg IV BID - Neurosurgery consulted (Dr. Post)- no intervention at this time, no role for steroids - PT/OT when patient able to participate Alcohol use disorder- h/o esophageal varices with banding, current liver pathology - Management per primary team and GI - Abd u/s: Hepatomegaly. Splenomegaly. Echogenic liver may be seen in setting of hepatic parenchymal disease or fatty infiltration. Nodular hepatic contour. Correlate clinically for cirrhosis. Small ascites. - BAL <10 - Transaminitis improved (AST 92->35, ALT 32->23) - Hepatitis panel negative - B12, folate wnl - Elevated ammonia resolved (45->18)- lactulose held - Coreg 3.125 mg PO BID - F/u CT A/P SIRS - Management as per primary team and ID - CXR 03/25: Persistent small right pleural effusion. No definite left pleural effusion. No definite infiltrate. - CXR 03/26: B/l perihilar infiltrates unchanged - HIV negative - Temperature improving with IV tylenol - Currently on aztreonam and vancomycin Thrombocytopenia, chronic (as low as 38 in 06/2015)- suspect 2/2 liver disease - Management as per primary team and hem/onc - Received total of 9 units platelets, 4 units FFP Dispo: likely LTACH Case discussed with attending, Dr. Stearns.
[2018-03-27] MEDS ORDERED: Potassium Phosphate 3 mmol/ml Inj IV ONE (08:30)
[2018-03-27] MEDS ORDERED: Potassium Phosphate 30 MMOLE in Sodium Chloride 0.9% 250 ML IVPB ONE (08:45)
[2018-03-27 09:05] LABS: PLATELET ESTIMATE LOW (NORMAL)
--- NOTE | 2018-03-27 10:29 | CP.PCM.PN ---
Subjective - Date & Time of Evaluation Date of Evaluation: 03/27/18 Time of Evaluation: 10:26 - Subjective Subjective: Heme/Onc Progress Note for Dr. Medellin -- Nate Russo DO PGY2 Patient seen and examined at bedside. Patient extubated this AM. Patient is able to answer questioning and response to commands appropriately. Patient denies CP, n/v/d, abdominal pain, fever, chills, HUNT or dizziness. Objective - Vital Signs/Intake and Output Vital Signs (last 24 hours): Temp Pulse Resp BP Pulse Ox 99.9 F H 96 H 25 H 126/69 100 03/26/18 19:30 03/27/18 02:00 03/27/18 07:27 03/26/18 19:30 03/27/18 07:27 Intake and Output: 03/27/18 03/27/18 06:59 18:59 Intake Total 1591 Output Total 3175 Balance -1584 - Medications Medications: Current Medications Carvedilol (Coreg) 3.125 mg PO BID [facility] Last Admin: 03/26/18 17:33 Dose: 3.125 mg Famotidine (Pepcid) 20 mg IVP DAILY [facility] Last Admin: 03/26/18 09:55 Dose: 20 mg Nicardipine HCl (Cardene Iv Premix) 20 mg in 200 mls @ 50 mls/hr IV .Q4H PRN; Protocol; 5 MG/HR PRN Reason: TITRATE PER MD ORDER Last Titration: 03/25/18 11:00 Dose: Infused Aztreonam (Azactam 1 Gm) 100 mls @ 100 mls/hr IVPB Q8 STEVEN PRN Reason: Protocol Stop: 04/01/18 09:01 Last Admin: 03/27/18 05:15 Dose: 100 mls/hr Vancomycin HCl (Vancomycin 1gm) 1 gm in 250 mls @ 167 mls/hr IVPB Q12H STEVEN PRN Reason: Protocol Last Admin: 03/26/18 21:29 Dose: 167 mls/hr Levetiracetam 1,000 mg/ Sodium (Chloride) 110 mls @ 460 mls/hr IV Q12 STEVEN Last Admin: 03/26/18 21:41 Dose: 460 mls/hr Dexmedetomidine HCl (Precedex 400mcg/100ml) 400 mcg in 100 mls @ 3.128 mls/hr IV .Q24H PRN; Protocol; 0.2 MCG/KG/HR PRN Reason: Agitation Last Admin: 03/26/18 23:10 Dose: 0.2 mcg/kg/hr, 3.128 mls/hr Potassium Phosphate 30 mmole/ (Sodium Chloride) 260 mls @ 42.5 mls/hr IVPB ONCE ONE Stop: 03/27/18 14:52 Insulin Human Regular (Humulin R Low) 0 units SC Q6H STEVEN PRN Reason: Protocol Last Admin: 03/27/18 02:30 Dose: Not Given Vitamin A (Vitamin A & D Oint Ud Foilpak) 1 ea TOP Q12 PRN PRN Reason: apply to dry lips Last Admin: 03/24/18 10:19 Dose: 1 ea - Labs Labs: 03/27/18 05:40 03/27/18 05:40 PT 20.2 SECONDS (9.4-12.5) H 03/25/18 05:40 INR 1.74 03/25/18 05:40 APTT 31.5 Seconds (25.1-36.5) 03/25/18 05:40 - Constitutional Appears: No Acute Distress - Head Exam Head Exam: NORMAL INSPECTION - Eye Exam Eye Exam: Normal appearance Pupil Exam: NORMAL ACCOMODATION - ENT Exam ENT Exam: Mucous Membranes Dry (dry blood noted aroudn oromucosa likely 2/2 ET tube) - Neck Exam Neck Exam: Normal Inspection - Respiratory Exam Respiratory Exam: Clear to Ausculation Bilateral. absent: Rales, Rhonchi, Wheezes - Cardiovascular Exam Cardiovascular Exam: RRR, +S1, +S2. absent: Gallop, Rubs - GI/Abdominal Exam GI & Abdominal Exam: Soft. absent: Distended, Guarding, Tenderness, Rebound - Extremities Exam Extremities Exam: Normal Inspection - Back Exam Back Exam: NORMAL INSPECTION - Neurological Exam Neurological Exam: Alert, Awake - Psychiatric Exam Psychiatric exam: Normal Mood - Skin Skin Exam: Dry, Intact, Normal Color, Warm Assessment and Plan - Assessment and Plan (Free Text) Assessment: 62 yo F with PMH of EtOH abuse, cirrhosis, esophageal varices, thrombocytopenia , spinal stenosis, arthritis, and degenerative joint disease admitted to ICU for status epilepticus 2/2 2.8x2.8cm left occipital lobe hemorrage found on CT with subsequent expansion on follow up CT (5.3x3.3cm). Repeat CT ordered for today. Heme/onc consulted due to thrombocytopenia, which appears to be chronic likely 2/2 cirrhosis. Patient is now extubated. MRI brain shows stable ICH. Plan: - Transfused 9 units of platelets and 4 FFP overall - Manual platelet count today 60, cont to monitor - Anti-platelet antibodies, BECKY negative - Further management per Neuro, ICU, and primary - Will continue to monitor Case discussed with attending. Nate Russo, DO PGY2
[2018-03-27] MEDS: levETIRAcetam 1,000 MG in Sodium Chloride 0.9% 100 ML IV SCH ×2 (10:32→21:55)
[2018-03-27] MEDS: Vancomycin 1gm in NS 250ml 1 GM/250 ML BAG IVPB SCH ×2 (10:38→20:47)
--- NOTE | 2018-03-27 11:14 | CP.PCM.PN ---
<Mohamud Fereman - Last Filed: 03/27/18 14:37> Subjective - Date & Time of Evaluation Date of Evaluation: 03/27/18 Time of Evaluation: 11:12 - Subjective Subjective: GI fellow PGY4 BM x 3 yesterday. Lactulose held. She has urine sediment in beck. Objective - Vital Signs/Intake and Output Vital Signs (last 24 hours): Temp Pulse Resp BP Pulse Ox 99.9 F H 81 25 H 138/78 100 03/26/18 19:30 03/27/18 10:30 03/27/18 07:27 03/27/18 10:30 03/27/18 07:27 Intake and Output: 03/27/18 03/27/18 06:59 18:59 Intake Total 1591 Output Total 3175 Balance -1584 - Medications Medications: Current Medications Carvedilol (Coreg) 3.125 mg PO BID [facility] Last Admin: 03/27/18 10:30 Dose: 3.125 mg Famotidine (Pepcid) 20 mg IVP DAILY [facility] Last Admin: 03/26/18 09:55 Dose: 20 mg Nicardipine HCl (Cardene Iv Premix) 20 mg in 200 mls @ 50 mls/hr IV .Q4H PRN; Protocol; 5 MG/HR PRN Reason: TITRATE PER MD ORDER Last Titration: 03/25/18 11:00 Dose: Infused Aztreonam (Azactam 1 Gm) 100 mls @ 100 mls/hr IVPB Q8 STEVEN PRN Reason: Protocol Stop: 04/01/18 09:01 Last Admin: 03/27/18 05:15 Dose: 100 mls/hr Vancomycin HCl (Vancomycin 1gm) 1 gm in 250 mls @ 167 mls/hr IVPB Q12H STEVEN PRN Reason: Protocol Last Admin: 03/27/18 10:38 Dose: 167 mls/hr Levetiracetam 1,000 mg/ Sodium (Chloride) 110 mls @ 460 mls/hr IV Q12 STEVEN Last Admin: 03/27/18 10:32 Dose: 460 mls/hr Dexmedetomidine HCl (Precedex 400mcg/100ml) 400 mcg in 100 mls @ 3.128 mls/hr IV .Q24H PRN; Protocol; 0.2 MCG/KG/HR PRN Reason: Agitation Last Admin: 03/26/18 23:10 Dose: 0.2 mcg/kg/hr, 3.128 mls/hr Potassium Phosphate 30 mmole/ (Sodium Chloride) 260 mls @ 42.5 mls/hr IVPB ONCE ONE Stop: 03/27/18 14:52 Last Admin: 03/27/18 10:36 Dose: 42.5 mls/hr Insulin Human Regular (Humulin R Low) 0 units SC Q6H STEVEN PRN Reason: Protocol Last Admin: 03/27/18 08:00 Dose: Not Given Vitamin A (Vitamin A & D Oint Ud Foilpak) 1 ea TOP Q12 PRN PRN Reason: apply to dry lips Last Admin: 03/24/18 10:19 Dose: 1 ea - Labs Labs: 03/27/18 05:40 03/27/18 05:40 PT 20.2 SECONDS (9.4-12.5) H 03/25/18 05:40 INR 1.74 03/25/18 05:40 APTT 31.5 Seconds (25.1-36.5) 03/25/18 05:40 - Constitutional Appears: Non-toxic, Chronically Ill - Head Exam Head Exam: NORMAL INSPECTION - Eye Exam Eye Exam: Normal appearance - ENT Exam Additional comments: Intubated - Respiratory Exam Respiratory Exam: Clear to Ausculation Bilateral, NORMAL BREATHING PATTERN - Cardiovascular Exam Cardiovascular Exam: REGULAR RHYTHM - GI/Abdominal Exam GI & Abdominal Exam: Soft, Normal Bowel Sounds. absent: Tenderness - Extremities Exam Extremities Exam: Normal Inspection - Neurological Exam Neurological Exam: Altered - Psychiatric Exam Additional comments: Sedated - Skin Skin Exam: Warm Assessment and Plan - Assessment and Plan (Free Text) Assessment: 62F with hx variceal bands presenting with AMS, seizures and found to have ICH and some herniation, now intubated. #Decompensated etoh cirrhosis - MELD 15 on admission. #E. Varices s/p bands 2014 #Colonic AVMs #Pancytopenia #Seizure disorder #Acute ICH PLAN: -Replace PLT per ICU -Recheck ammonia 03/30/15 in setting of sedation and intubated. Off lactulose since 03/27/18 -Start carvedilol 3.25mg BID for esophogeal varices. Titrate to HR and BP. -PPI IV daily. -Depending on recovery and family wishes, she may need PEG placement. <Jean-Claude Vernon V - Last Filed: 03/27/18 23:49> Objective - Vital Signs/Intake and Output Vital Signs (last 24 hours): Temp Pulse Resp BP Pulse Ox 100.4 F H 84 25 H 143/76 100 03/27/18 20:00 03/27/18 20:00 03/27/18 19:50 03/27/18 19:45 03/27/18 19:50 Intake and Output: 03/27/18 03/28/18 18:59 06:59 Intake Total 480 Output Total 900 Balance -420 - Medications Medications: Current Medications Carvedilol (Coreg) 3.125 mg PO BID [facility] Last Admin: 03/27/18 17:49 Dose: 3.125 mg Famotidine (Pepcid) 20 mg IVP DAILY [facility] Last Admin: 03/27/18 11:00 Dose: 20 mg Nicardipine HCl (Cardene Iv Premix) 20 mg in 200 mls @ 50 mls/hr IV .Q4H PRN; Protocol; 5 MG/HR PRN Reason: TITRATE PER MD ORDER Last Titration: 03/25/18 11:00 Dose: Infused Aztreonam (Azactam 1 Gm) 100 mls @ 100 mls/hr IVPB Q8 STEVEN PRN Reason: Protocol Stop: 04/01/18 09:01 Last Admin: 03/27/18 21:38 Dose: 100 mls/hr Vancomycin HCl (Vancomycin 1gm) 1 gm in 250 mls @ 167 mls/hr IVPB Q12H STEVEN PRN Reason: Protocol Last Admin: 03/27/18 20:47 Dose: 167 mls/hr Levetiracetam 1,000 mg/ Sodium (Chloride) 110 mls @ 460 mls/hr IV Q12 [facility] Last Admin: 03/27/18 21:55 Dose: 460 mls/hr Dexmedetomidine HCl (Precedex 400mcg/100ml) 400 mcg in 100 mls @ 3.128 mls/hr IV .Q24H PRN; Protocol; 0.2 MCG/KG/HR PRN Reason: Agitation Last Admin: 03/26/18 23:10 Dose: 0.2 mcg/kg/hr, 3.128 mls/hr Insulin Human Regular (Humulin R Low) 0 units SC Q6H STEVEN PRN Reason: Protocol Last Admin: 03/27/18 19:53 Dose: Not Given Vitamin A (Vitamin A & D Oint Ud Foilpak) 1 ea TOP Q12 PRN PRN Reason: apply to dry lips Last Admin: 03/24/18 10:19 Dose: 1 ea - Labs Labs: 03/27/18 05:40 03/27/18 05:40 PT 20.2 SECONDS (9.4-12.5) H 03/25/18 05:40 INR 1.74 03/25/18 05:40 APTT 31.5 Seconds (25.1-36.5) 03/25/18 05:40 Attending/Attestation - Attestation I have personally seen and examined this patient.: Yes I have fully participated in the care of the patient.: Yes I have reviewed all pertinent clinical information, including history, physical exam and plan: Yes Notes (Text): This is an addendum to GI progress report dictated by the GI Fellow.The patient was seen and examined earlier. Medical records, lab studies, imagings were reviewed. Last 24 hours events reviewed. Agreed with the above treatment plan as outlined in GI Fellow 's notes with the addition of the following Patient is off vent Plan to start feeding tomorrow a.m. Lactulose has been on hold for recent history of diarrhea Follow-up ammonia level Follow platelets 03/27/18 23:47
--- NOTE | 2018-03-27 12:29 | RAD ---
Date of service: 03/26/2018 HISTORY: intubated COMPARISON: Multiple serial examinations preceding the most recent study: March 26, 2018. Study performed 05:48. FINDINGS: LUNGS: Persistent pulmonary edema approximately stable. PLEURA: No significant pleural effusion identified, no pneumothorax apparent. CARDIOVASCULAR: Normal. OSSEOUS STRUCTURES: No significant abnormalities. VISUALIZED UPPER ABDOMEN: Normal. OTHER FINDINGS: Stable, satisfactory position ventilatory, vascular and nasogastric apparatus. IMPRESSION: Stable position of support apparatus including endotracheal tube. Stable pulmonary edema.
--- NOTE | 2018-03-27 12:42 | CP.PCM.PN ---
Subjective - Date & Time of Evaluation Date of Evaluation: 03/27/18 Time of Evaluation: 11:00 - Subjective Subjective: Patient was extubated this morning, no fevers this morning but still had low grade temperatures last night, tries to communicate, understands questions. Objective - Vital Signs/Intake and Output Vital Signs (last 24 hours): Temp Pulse Resp BP Pulse Ox 99.9 F H 96 H 30 H 126/69 97 03/26/18 19:30 03/27/18 02:00 03/26/18 18:44 03/26/18 19:30 03/26/18 19:30 Intake and Output: 03/26/18 03/27/18 18:59 06:59 Intake Total 1591 Output Total 3175 Balance -1584 - Medications Medications: Current Medications Carvedilol (Coreg) 3.125 mg PO BID [facility] Last Admin: 03/26/18 17:33 Dose: 3.125 mg Famotidine (Pepcid) 20 mg IVP DAILY [facility] Last Admin: 03/26/18 09:55 Dose: 20 mg Nicardipine HCl (Cardene Iv Premix) 20 mg in 200 mls @ 50 mls/hr IV .Q4H PRN; Protocol; 5 MG/HR PRN Reason: TITRATE PER MD ORDER Last Titration: 03/25/18 11:00 Dose: Infused Aztreonam (Azactam 1 Gm) 100 mls @ 100 mls/hr IVPB Q8 STEVEN PRN Reason: Protocol Stop: 04/01/18 09:01 Last Admin: 03/27/18 05:15 Dose: 100 mls/hr Vancomycin HCl (Vancomycin 1gm) 1 gm in 250 mls @ 167 mls/hr IVPB Q12H STEVEN PRN Reason: Protocol Last Admin: 03/26/18 21:29 Dose: 167 mls/hr Levetiracetam 1,000 mg/ Sodium (Chloride) 110 mls @ 460 mls/hr IV Q12 STEVEN Last Admin: 03/26/18 21:41 Dose: 460 mls/hr Dexmedetomidine HCl (Precedex 400mcg/100ml) 400 mcg in 100 mls @ 3.128 mls/hr IV .Q24H PRN; Protocol; 0.2 MCG/KG/HR PRN Reason: Agitation Last Admin: 03/26/18 23:10 Dose: 0.2 mcg/kg/hr, 3.128 mls/hr Insulin Human Regular (Humulin R Low) 0 units SC Q6H STEVEN PRN Reason: Protocol Last Admin: 03/27/18 02:30 Dose: Not Given Vitamin A (Vitamin A & D Oint Ud Foilpak) 1 ea TOP Q12 PRN PRN Reason: apply to dry lips Last Admin: 03/24/18 10:19 Dose: 1 ea - Labs Labs: 03/26/18 06:00 03/26/18 06:00 PT 20.2 SECONDS (9.4-12.5) H 03/25/18 05:40 INR 1.74 03/25/18 05:40 APTT 31.5 Seconds (25.1-36.5) 03/25/18 05:40 - Constitutional Appears: Chronically Ill - Neck Exam Neck Exam: absent: Meningismus - Respiratory Exam Respiratory Exam: Decreased Breath Sounds - Cardiovascular Exam Cardiovascular Exam: +S1, +S2 - GI/Abdominal Exam GI & Abdominal Exam: Soft. absent: Tenderness Assessment and Plan - Assessment and Plan (Free Text) Plan: Assessment New onset systemic inflammatory response syndrome in this patient with acute left sided intra-cranial hemorrhage S/P ventilator-dependent respiratory failure , R/O sepsis due HCAP, R/O central fever hyperbilirubinemia probably related to chronic liver disease / liver cirrhosis ethanol abuse liver cirrhosis with esophageal varices S/P banding in 2014 arthritis history of spinal stenosis Plan continue Vancomycin and Azactam day 3; blood cx, are negative; PCT is less than 0.5, repeat CXR shows improving perihilar infiltrate discussed with Dr. Laguna previously follow up further plans of Neurology and Neurosurgery HIV test is non-reactive
--- NOTE | 2018-03-27 12:57 | RAD ---
Date of service: 03/27/2018 HISTORY: intubated COMPARISON: Multiple serial examinations preceding the most recent study: March 26, 2018. FINDINGS: LUNGS: Stable pulmonary edema/ multifocal infiltrates. PLEURA: Small bilateral pleural effusions are more conspicuous on the current study than seen previously but without appreciable interval change. CARDIOVASCULAR: Normal. OSSEOUS STRUCTURES: No significant abnormalities. VISUALIZED UPPER ABDOMEN: Normal. OTHER FINDINGS: Stable, satisfactory position ventilatory, vascular and nasogastric apparatus. IMPRESSION: Stable pulmonary edema. Stable position of support apparatus.
[2018-03-27] MEDS ORDERED: Iohexol 350 MG/100 ML VIAL ONE (14:41)
--- NOTE | 2018-03-27 15:47 | CP.PCM.CON ---
History of Present Illness - History of Present Illness History of Present Illness: 62 y/o female admitted to [facility] for seizure and then further note of intracranial hemorrhage on ct scan. ENT has been asked to see the patient for note of loose lateral central incisor after seizure/intubation. Pt lost other teeth during this event. Icu is fearful of aspiration of the tooth. Review of Systems - Constitutional Constitutional: As Per HPI - EENT Eyes: As Per HPI Ears: As Per HPI Nose/Mouth/Throat: As Per HPI - Breasts Breasts: As Per HPI - Cardiovascular Cardiovascular: As Per HPI - Respiratory Respiratory: As Per HPI - Gastrointestinal Gastrointestinal: As Per HPI - Genitourinary Genitourinary: As Per HPI - Musculoskeletal Musculoskeletal: As Per HPI - Integumentary Integumentary: As Per HPI - Neurological Neurological: As Per HPI - Psychiatric Psychiatric: As Per HPI Past Patient History - Infectious Disease Hx of Infectious Diseases: None - Tetanus Immunizations Tetanus Immunization: Unknown - Past Social History Smoking Status: Light Smoker < 10 Cigarettes Daily - CARDIAC Hx Cardiac Disorders: No - PULMONARY Hx Respiratory Disorders: No - NEUROLOGICAL Other/Comment: Spinal Stenosis , T7-8 Paracentral disc Protusion , C5-6 Disc Bulge , C3 Arthropy on right side - HEENT Hx HEENT Problems: No - RENAL Hx Chronic Kidney Disease: No - ENDOCRINE/METABOLIC Hx Endocrine Disorders: No - HEMATOLOGICAL/ONCOLOGICAL Hx Blood Transfusions: Yes - INTEGUMENTARY Hx Dermatological Problems: No - MUSCULOSKELETAL/RHEUMATOLOGICAL Hx Arthritis: Yes Hx Degenerative Joint Disease: Yes Hx Fractures: Yes (Tibial Plateu and Right Hip) Hx Osteoarthritis: Yes Hx Osteoporosis: Yes Hx Spinal Stenosis: Yes Other/Comment: Tibial plateu and Right Hip Fracture - GASTROINTESTINAL Other/Comment: Alcohol Cirrhosis , Esophageal Varices , Peptic Ulcer , Erosive esophagitis - GENITOURINARY/GYNECOLOGICAL Hx Genitourinary Disorders: No - PSYCHIATRIC Hx Substance Use: No - SURGICAL HISTORY Hx Musculoskeletal Surgery: Yes (Right Hip Replacement) - ANESTHESIA Hx Anesthesia Reactions: No Hx Malignant Hyperthermia: No Meds Allergies/Adverse Reactions: Allergies Allergy/AdvReac Type Severity Reaction Status Date / Time Penicillins Allergy RASH Verified 03/21/18 13:59 - Medications Medications: Current Medications Carvedilol (Coreg) 3.125 mg PO BID [facility] Last Admin: 03/27/18 10:30 Dose: 3.125 mg Famotidine (Pepcid) 20 mg IVP DAILY [facility] Last Admin: 03/27/18 11:00 Dose: 20 mg Nicardipine HCl (Cardene Iv Premix) 20 mg in 200 mls @ 50 mls/hr IV .Q4H PRN; Protocol; 5 MG/HR PRN Reason: TITRATE PER MD ORDER Last Titration: 03/25/18 11:00 Dose: Infused Aztreonam (Azactam 1 Gm) 100 mls @ 100 mls/hr IVPB Q8 STEVEN PRN Reason: Protocol Stop: 04/01/18 09:01 Last Admin: 03/27/18 05:15 Dose: 100 mls/hr Vancomycin HCl (Vancomycin 1gm) 1 gm in 250 mls @ 167 mls/hr IVPB Q12H STEVEN PRN Reason: Protocol Last Admin: 03/27/18 10:38 Dose: 167 mls/hr Levetiracetam 1,000 mg/ Sodium (Chloride) 110 mls @ 460 mls/hr IV Q12 STEVEN Last Admin: 03/27/18 10:32 Dose: 460 mls/hr Dexmedetomidine HCl (Precedex 400mcg/100ml) 400 mcg in 100 mls @ 3.128 mls/hr IV .Q24H PRN; Protocol; 0.2 MCG/KG/HR PRN Reason: Agitation Last Admin: 03/26/18 23:10 Dose: 0.2 mcg/kg/hr, 3.128 mls/hr Insulin Human Regular (Humulin R Low) 0 units SC Q6H STEVEN PRN Reason: Protocol Last Admin: 03/27/18 08:00 Dose: Not Given Vitamin A (Vitamin A & D Oint Ud Foilpak) 1 ea TOP Q12 PRN PRN Reason: apply to dry lips Last Admin: 03/24/18 10:19 Dose: 1 ea Physical Exam - Constitutional Appears: Well, Non-toxic - Head Exam Head Exam: ATRAUMATIC - ENT Exam ENT Exam: Mucous Membranes Dry Additional comments: Ears; canals patent Nose: dry mucosa iza dry mucosa with decayed and extremely loose left lateral incisor that was removed with fingers easily. this was performed after verbal consent obtained from patient. The patient also had a decayed right lateral incisor that was not loose enough to be removed and therefore was maintained. Oropharynx wnl - Neck Exam Neck exam: Positive for: Full Rom Results - Vital Signs Recent Vital Signs: Last Vital Signs Temp 99.9 F H 03/26/18 19:30 Pulse 81 03/27/18 10:30 Resp 25 H 03/27/18 07:27 BP 138/78 03/27/18 10:30 Pulse Ox 100 03/27/18 07:27 - Labs Result Diagrams: 03/27/18 05:40 03/27/18 05:40 Labs: Laboratory Results - last 24 hr 03/23/18 03/26/18 03/26/18 06:00 16:15 21:00 WBC RBC Hgb Hct MCV MCH MCHC RDW Plt Count Manual Plt Count MPV Gran % Lymph % (Auto) [place] % (Auto) Eos % (Auto) Baso % (Auto) Gran # Lymph # (Auto) [place] # (Auto) Eos # (Auto) Baso # (Auto) Platelet Evaluation pCO2 pO2 HCO3 ABG pH ABG Total CO2 ABG O2 Saturation ABG O2 Content ABG Base Excess ABG Hemoglobin ABG Carboxyhemoglobin POC ABG HHb (Measured) ABG Methemoglobin ABG O2 Capacity Hgb O2 Saturation FiO2 Sodium Potassium Chloride Carbon Dioxide Anion Gap BUN Creatinine Est GFR ( Amer) Est GFR (Non-Af Amer) POC Glucose (mg/dL) 112 H Random Glucose Calcium Phosphorus Magnesium Total Bilirubin AST ALT Alkaline Phosphatase Ammonia 18 Total Protein Albumin Globulin Albumin/Globulin Ratio Indir Plt-Bound IgM Ab Negative 03/27/18 03/27/18 03/27/18 02:06 05:40 05:40 WBC 7.8 D RBC 3.06 L Hgb 9.7 L Hct 29.1 L MCV 95.1 MCH 31.7 MCHC 33.3 RDW 16.8 H Plt Count 47 L* Manual Plt Count MPV 10.6 Gran % 75.4 H Lymph % (Auto) 8.9 L [place] % (Auto) 12.9 H Eos % (Auto) 2.7 Baso % (Auto) 0.1 Gran # 5.87 Lymph # (Auto) 0.7 L [place] # (Auto) 1.0 H Eos # (Auto) 0.2 Baso # (Auto) 0.01 Platelet Evaluation Low pCO2 pO2 HCO3 ABG pH ABG Total CO2 ABG O2 Saturation ABG O2 Content ABG Base Excess ABG Hemoglobin ABG Carboxyhemoglobin POC ABG HHb (Measured) ABG Methemoglobin ABG O2 Capacity Hgb O2 Saturation FiO2 Sodium 145 Potassium 3.4 L Chloride 116 H Carbon Dioxide 23 Anion Gap 10 BUN 18 Creatinine 0.5 L Est GFR ( Amer) > 60 Est GFR (Non-Af Amer) > 60 POC Glucose (mg/dL) 110 Random Glucose 109 Calcium 8.7 Phosphorus 3.2 Magnesium 1.9 Total Bilirubin 3.6 H AST 35 ALT 23 Alkaline Phosphatase 136 H Ammonia Total Protein 6.6 Albumin 2.8 L Globulin 3.8 Albumin/Globulin Ratio 0.7 L Indir Plt-Bound IgM Ab 03/27/18 03/27/18 03/27/18 06:30 06:30 07:57 WBC RBC Hgb Hct MCV MCH MCHC RDW Plt Count Manual Plt Count 60 L MPV Gran % Lymph % (Auto) [place] % (Auto) Eos % (Auto) Baso % (Auto) Gran # Lymph # (Auto) [place] # (Auto) Eos # (Auto) Baso # (Auto) Platelet Evaluation pCO2 31 L pO2 80.0 HCO3 22.0 ABG pH 7.46 H ABG Total CO2 23.0 ABG O2 Saturation 98.3 H ABG O2 Content 14.7 L ABG Base Excess -1.2 ABG Hemoglobin 11.0 L ABG Carboxyhemoglobin 2.2 H POC ABG HHb (Measured) 1.6 ABG Methemoglobin 1.7 ABG O2 Capacity 15.0 L Hgb O2 Saturation 94.5 L FiO2 50.0 Sodium Potassium Chloride Carbon Dioxide Anion Gap BUN Creatinine Est GFR ( Amer) Est GFR (Non-Af Amer) POC Glucose (mg/dL) 103 Random Glucose Calcium Phosphorus Magnesium Total Bilirubin AST ALT Alkaline Phosphatase Ammonia Total Protein Albumin Globulin Albumin/Globulin Ratio Indir Plt-Bound IgM Ab Assessment & Plan (1) Electrolyte imbalance Status: Acute (2) Hypernatremia Status: Acute (3) Hypokalemia Status: Acute (4) Intracranial hemorrhage Status: Acute (5) Seizure Status: Acute (6) GI bleed Status: Acute (7) Loose tooth due to trauma Status: Acute - Assessment and Plan (Free Text) Plan: oral hygiene call dental if further problems - Date & Time Date: 03/27/18 Time: 15:46
--- NOTE | 2018-03-27 15:57 | CT ---
Date of service: 03/27/2018 PROCEDURE: CT Abdomen and Pelvis with contrast HISTORY: liver pathology COMPARISON: None. TECHNIQUE: Contrast dose: 100 cc of Omni 350 Radiation dose: Total exam DLP = 896 mGy-cm. This CT exam was performed using one or more of the following dose reduction techniques: Automated exposure control, adjustment of the mA and/or kV according to patient size, and/or use of iterative reconstruction technique. FINDINGS: LOWER THORAX: Moderate size bilateral pleural effusions and bibasilar consolidation. A nasogastric tube is seen in place. LIVER: The liver has an irregular contour consistent with cirrhosis. There is a small cyst in the posterior right lobe. GALLBLADDER AND BILE DUCTS: The gallbladder is contracted and contains multiple stones PANCREAS: Unremarkable. No gross lesion or ductal dilatation. SPLEEN: Moderate splenomegaly. The spleen measures 16 cm in length ADRENALS: Unremarkable. No mass. KIDNEYS AND URETERS: Unremarkable. No hydronephrosis. No solid mass. VASCULATURE: Unremarkable. No aortic aneurysm. BOWEL: Unremarkable. No obstruction. No gross mural thickening. APPENDIX: Normal appendix. PERITONEUM: There is moderate ascites LYMPH NODES: Unremarkable. No enlarged lymph nodes. BLADDER: Unremarkable. REPRODUCTIVE: Unremarkable. BONES: No acute fracture. OTHER FINDINGS: None. IMPRESSION: Cirrhosis with moderate ascites and splenomegaly.
--- NOTE | 2018-03-27 19:43 | PN ---
DATE: 03/27/2018 SUBJECTIVE: The patient is seen lying in bed. She is off the ventilator. She is awake, she is alert. Her daughter is at her bedside. The patient is responsive. He is following commands. PHYSICAL EXAMINATION: GENERAL: Elderly lady lying in bed in the ICU. VITAL SIGNS: Blood pressure 138/78, heart rate 81, respiratory rate 25, and temperature 99.9. HEENT: Normocephalic, atraumatic, positive pallor. NECK: Supple, no JVD. LUNGS: Bilateral equal air entry, bilateral equal expansion, no rales appreciated anteriorly. CARDIAC: S1 and S2, regular rate and rhythm, no murmur, no rub. ABDOMEN: Obese, distended, soft, nontender, bowel sounds present. EXTREMITIES: No lower extremity edema. INTAKE AND OUTPUT: 1591/3175 LABORATORY DATA: WBC 7.8, hemoglobin 9.7, hematocrit 29, and platelets 47. Sodium 145, potassium 3.4, chloride 116, CO2 of 23. BUN 18, creatinine 0.5. Glucose 109. Calcium 8.7, phosphorus 3.2, magnesium 1.9. Total bili 3.6. Albumin 2.8, globulin 3.8. Urine culture, Gram-negative rods. Chest x-ray small bilateral pleural effusions. CURRENT MEDICATIONS: Aztreonam 1 g every 8 hours, Coreg 3.125 b.i.d., Keppra 1000 every 12 hours, Pepcid, Precedex, vancomycin 1 g every 12 hours, potassium phosphate 30 millimoles given this morning. ASSESSMENT: 1. Acute intracranial bleed, hemorrhagic stroke. 2. Hypernatremia secondary to hypertonic saline infusion. 3. Hypokalemia. 4. Hypophosphatemia. 5. History of alcoholic cirrhosis, alcoholic liver disease, ascites. 6. Severe anemia. 7. Thrombocytopenia. 8. History of hypertension. 9. History of the-fruddnx-jvrhtnavi diabetes mellitus. 10. Fever. PLAN: 1. Continue empiric antibiotics as per ID recommendations. 2. Replace potassium and phosphate as needed. 3. Continue to monitor in the ICU. 4. Neurology followup. 5. Avoid nephrotoxins. 6. Resume diet when able. Case discussed with daughter at bedside, case discussed with ICU nurses at length. More than 35 minutes spent in the care of this critically ill patient. Eleni Lobo MD [facility] # [id number]
[2018-03-28] MEDS: Insulin Reg-LOW-Coverage SC SCH ×4 (02:00→20:00)
[2018-03-28] MEDS: Aztreonam 1 Gm in NS 100mL 100 ML IVPB SCH ×3 (05:14→21:50)
[2018-03-28 06:39] LABS: BASO # 0.06 K/mm3 (0.0-2.0); BASO % 0.7 % (0.0-3.0); EOS # 0.2 (0.0-0.7); EOS % 2.1 % (1.5-5.0); GRAN # 6.43 (1.4-6.5); GRAN % 74.6 % (50.0-68.0); HEMOGLOBIN 10.2 g/dL (12.0-16.0); LYMPH # 0.7 (1.2-3.4); LYMPH % 7.8 % (22.0-35.0); MEAN CELL VOLUME 93.7 fl (80.0-105.0); MEAN CORPUSCULAR HEMOGLOBIN 30.7 pg (25.0-35.0); MEAN CORPUSCULAR HGB CONC 32.8 g/dl (31.0-37.0); MEAN PLATELET VOLUME 9.6 fl (7.0-11.0); MONO # 1.3 (0.1-0.6); MONO % 14.8 % (1.0-6.0); RBC 3.32 10^6/uL (3.5-6.1); RED CELL DISTRIBUTION WIDTH 16.2 % (11.5-14.5); WHITE BLOOD COUNT 8.6 10^3/ul (4.5-11.0)
[2018-03-28 07:34] LABS: ALB/GLOB RATIO 0.8 (1.1-1.8); ALT/SGPT 29 U/L (7-56); AST/SGOT 48 U/L (14-36); BLOOD UREA NITROGEN 15 mg/dL (7-21); CALCIUM 8.8 mg/dL (8.4-10.5); GFR NON-AFRICAN AMERICAN > 60
[2018-03-28] MEDS: Dextrose 5%/0.45% NS 1,000 ML IV SCH (08:00)
--- NOTE | 2018-03-28 08:54 | RAD ---
Date of service: 03/28/2018 HISTORY: intubated COMPARISON: Portable chest 03/27/2018. FINDINGS: LUNGS: Right center venous line unchanged in position. Nasogastric tube apparently removed. Scattered infiltrates persist and are likely not simply changed taking differences in technique into account. PLEURA: Stable limited left pleural effusion. None on the right. No pneumothorax bilaterally. CARDIOVASCULAR: Pulmonary vascular congestion borderline improved. Cardiac silhouette stable. OSSEOUS STRUCTURES: No significant abnormalities. VISUALIZED UPPER ABDOMEN: Normal. OTHER FINDINGS: None. IMPRESSION: Slightly diminished CHF pattern. No interval change in heterogeneous infiltrates bilaterally, right greater than left. Small pleural effusion is stable. Status post removal of nasogastric tube.
[2018-03-28] MEDS: Vancomycin 1gm in NS 250ml 1 GM/250 ML BAG IVPB SCH ×2 (09:18→20:30)
[2018-03-28] MEDS: Vitamins A & D Oint UD Foilpak TOP PRN (09:19)
--- NOTE | 2018-03-28 09:59 | PN ---
DATE: 03/28/2018 WEB WEAVER NOTE SUBJECTIVE: The patient is awake, responds appropriately with O2 via nasal cannula. The patient, at this time, has no complaints of increased shortness of breath, cough or wheezing and seems to be moving all extremities. PHYSICAL EXAMINATION: VITAL SIGNS: Note that her temperature is 100.2, her pulse is 84, respirations are 35 and O2 saturation is 92%, that is with 2 liters of nasal cannula. HEENT: Head is atraumatic, normocephalic. Eyes: No change. Ears, nose and throat seemed to be within normal limits. NECK: Supple. No JVD. No thyroid enlargement or lymph nodes. HEART: Has regular rate and rhythm. Normal S1, S2. LUNGS: Reveal some mild rhonchi at the bases. ABDOMEN: Slightly distended. Positive bowel sounds. GENITALIA: Deferred. RECTAL: Deferred. MUSCULOSKELETAL: No joint deformities. EXTREMITIES: Reveal trace lower extremity edema. NEUROLOGICAL: The patient is arousable, responds appropriately and seems to be moving all extremities. DATA: As far as her laboratories, her white count is 8.6, hemoglobin is 10.2, hematocrit 31.1 with platelets of 53,000. The patient's sodium is 143, potassium 3.5, chloride 114 with a CO2 of 22 with a BUN of 15, creatinine of 0.4 and a glucose of 87. Chest x-ray for today is pending. IMPRESSION: As far as my impression, this patient had intracranial bleeding with seizure, is noted to have a left occipital hemorrhage. She has pulmonary edema with history of ethyl alcohol abuse and ethyl alcohol cirrhosis and ascites. The patient has anemia as well as thrombocytopenia. PLAN: As far as our plan, we will continue with aztreonam as well as her Coreg. The patient is getting Keppra and Cardene. We will continue with the Pepcid, vancomycin and her vitamins. We will follow closely and treat aggressively along with the other consultants and the primary care doctor. Cameron Guillory MD
--- NOTE | 2018-03-28 10:10 | CP.PCM.PN ---
<Alex Lazo - Last Filed: 03/28/18 10:03> Subjective - Date & Time of Evaluation Date of Evaluation: 03/28/18 Time of Evaluation: 10:04 - Subjective Subjective: PGY6 GI Fellow Progress Note Patient seen and examined bedside this morning. The patient opens her eyes and answers some yes/no questions. Still unaware of where she is or what has happened. Denies any pain presently. No events overnight. 12 system ROS limited given altered mentation Objective - Vital Signs/Intake and Output Vital Signs (last 24 hours): Temp Pulse Resp BP Pulse Ox 100.2 F H 82 40 H 164/87 H 91 L 03/28/18 05:43 03/28/18 09:18 03/28/18 05:30 03/28/18 09:18 03/28/18 05:43 Intake and Output: 03/28/18 03/28/18 06:59 18:59 Intake Total 550 Output Total 900 Balance -350 - Medications Medications: Current Medications Carvedilol (Coreg) 3.125 mg PO BID [facility] Last Admin: 03/28/18 09:18 Dose: 3.125 mg Famotidine (Pepcid) 20 mg IVP DAILY [facility] Last Admin: 03/28/18 09:18 Dose: 20 mg Nicardipine HCl (Cardene Iv Premix) 20 mg in 200 mls @ 50 mls/hr IV .Q4H PRN; Protocol; 5 MG/HR PRN Reason: TITRATE PER MD ORDER Last Titration: 03/25/18 11:00 Dose: Infused Aztreonam (Azactam 1 Gm) 100 mls @ 100 mls/hr IVPB Q8 STEVEN PRN Reason: Protocol Stop: 04/01/18 09:01 Last Admin: 03/28/18 05:14 Dose: 100 mls/hr Vancomycin HCl (Vancomycin 1gm) 1 gm in 250 mls @ 167 mls/hr IVPB Q12H STEVEN PRN Reason: Protocol Last Admin: 03/28/18 09:18 Dose: 167 mls/hr Levetiracetam 1,000 mg/ Sodium (Chloride) 110 mls @ 460 mls/hr IV Q12 [facility] Last Admin: 03/27/18 21:55 Dose: 460 mls/hr Dexmedetomidine HCl (Precedex 400mcg/100ml) 400 mcg in 100 mls @ 3.128 mls/hr IV .Q24H PRN; Protocol; 0.2 MCG/KG/HR PRN Reason: Agitation Last Admin: 03/26/18 23:10 Dose: 0.2 mcg/kg/hr, 3.128 mls/hr Insulin Human Regular (Humulin R Low) 0 units SC Q6H STEVEN PRN Reason: Protocol Last Admin: 03/28/18 09:19 Dose: Not Given Vitamin A (Vitamin A & D Oint Ud Foilpak) 1 ea TOP Q12 PRN PRN Reason: apply to dry lips Last Admin: 03/28/18 09:19 Dose: 1 ea - Labs Labs: 03/28/18 06:15 03/28/18 06:15 PT 20.2 SECONDS (9.4-12.5) H 03/25/18 05:40 INR 1.74 03/25/18 05:40 APTT 31.5 Seconds (25.1-36.5) 03/25/18 05:40 - Constitutional Appears: No Acute Distress, Confused, Chronically Ill - Eye Exam Eye Exam: PERRL - ENT Exam ENT Exam: Mucous Membranes Moist - Respiratory Exam Respiratory Exam: Decreased Breath Sounds, Rales. absent: Rhonchi, Wheezes - Cardiovascular Exam Cardiovascular Exam: RRR, +S1, +S2 - GI/Abdominal Exam GI & Abdominal Exam: Soft, Normal Bowel Sounds. absent: Distended, Firm, Guarding, Rigid, Tenderness, Organomegaly - Extremities Exam Extremities Exam: Normal Inspection. absent: Pedal Edema - Neurological Exam Neurological Exam: Altered, Awake - Psychiatric Exam Psychiatric exam: Flat Affect Additional comments: slow to respond - Skin Skin Exam: Dry, Warm Assessment and Plan - Assessment and Plan (Free Text) Assessment: Patient is a 62yo female with PMHx significant for decompensated EtOH cirrhosis c/b EV who presented with AMS/seizure activity and was found to have a hemorrhagic CVA with herniation. -Acute CVA - hemorrhagic with herniation -Decompensated EtOH cirrhosis with esophageal varices -Colonic AVMs -Pancytopenia Plan: -Patient has been recently extubated -Recommend formal swallow evaluation -If patient fails swallow eval, recommend placement of DHT for TFs and medications -Beta yousif ordered (Coreg) for EV bleeding prophylaxis -Moderate ascites on abdominal CT from 03/27/18 - may benefit from paracentesis if possible, consider diuretic therapy with Aldactone 100mg PO QD -Ammonia level WNL - though studies show these may not correlate with degree of encephalopathy; still believe recent ACH/herniation likely causative factor for AMS/seizure activity -Plan per ICU/neurology *MELD-Na: 19 (on 03/25/18) <Jean-Claude Vernon V - Last Filed: 03/28/18 21:57> Objective - Vital Signs/Intake and Output Vital Signs (last 24 hours): Temp Pulse Resp BP Pulse Ox 100.2 F H 78 32 H 136/71 95 03/28/18 21:20 03/28/18 21:20 03/28/18 21:20 03/28/18 21:00 03/28/18 21:20 Intake and Output: 03/28/18 03/29/18 18:59 06:59 Intake Total 1870 Output Total 675 Balance 1195 - Medications Medications: Current Medications Acetaminophen (Tylenol 325mg Tab) 650 mg PO Q6H PRN PRN Reason: Fever >100.4 F Last Admin: 03/28/18 14:38 Dose: 650 mg Carvedilol (Coreg) 3.125 mg PO BID [facility] Last Admin: 03/28/18 17:23 Dose: 3.125 mg Famotidine (Pepcid) 20 mg IVP DAILY [facility] Last Admin: 03/28/18 09:18 Dose: 20 mg Nicardipine HCl (Cardene Iv Premix) 20 mg in 200 mls @ 50 mls/hr IV .Q4H PRN; Protocol; 5 MG/HR PRN Reason: TITRATE PER MD ORDER Last Titration: 03/25/18 11:00 Dose: Infused Aztreonam (Azactam 1 Gm) 100 mls @ 100 mls/hr IVPB Q8 STEVEN PRN Reason: Protocol Stop: 04/01/18 09:01 Last Admin: 03/28/18 21:50 Dose: 100 mls/hr Vancomycin HCl (Vancomycin 1gm) 1 gm in 250 mls @ 167 mls/hr IVPB Q12H STEVEN PRN Reason: Protocol Last Admin: 03/28/18 20:30 Dose: 167 mls/hr Levetiracetam 1,000 mg/ Sodium (Chloride) 110 mls @ 460 mls/hr IV Q12 STEVEN Last Admin: 03/28/18 21:51 Dose: 460 mls/hr Dexmedetomidine HCl (Precedex 400mcg/100ml) 400 mcg in 100 mls @ 3.128 mls/hr IV .Q24H PRN; Protocol; 0.2 MCG/KG/HR PRN Reason: Agitation Last Admin: 03/26/18 23:10 Dose: 0.2 mcg/kg/hr, 3.128 mls/hr Dextrose/Sodium Chloride (Dextrose 5%/0.45% Ns 1000 Ml) 1,000 mls @ 60 mls/hr IV .[id number] STEVEN Last Admin: 03/28/18 08:00 Dose: 60 mls/hr Insulin Human Regular (Humulin R Low) 0 units SC Q6H STEVEN PRN Reason: Protocol Last Admin: 03/28/18 14:13 Dose: Not Given Vitamin A (Vitamin A & D Oint Ud Foilpak) 1 ea TOP Q12 PRN PRN Reason: apply to dry lips Last Admin: 03/28/18 09:19 Dose: 1 ea - Labs Labs: 03/28/18 06:15 03/28/18 06:15 PT 20.2 SECONDS (9.4-12.5) H 03/25/18 05:40 INR 1.74 03/25/18 05:40 APTT 31.5 Seconds (25.1-36.5) 03/25/18 05:40 Attending/Attestation - Attestation I have personally seen and examined this patient.: Yes I have fully participated in the care of the patient.: Yes I have reviewed all pertinent clinical information, including history, physical exam and plan: Yes Notes (Text): This is an addendum to GI progress report dictated by the GI Fellow.The patient was seen and examined earlier. Medical records, lab studies, imagings were reviewed. Last 24 hours events reviewed. Agreed with the above treatment plan as outlined in GI Fellow 's notes with the addition of the following Decompensated cirrhosis Status post CVA with intracerebral bleed Off the ventilator Swallowing evaluation noted Recommend Close follow-up of INR, platelets Nonselective beta-yousif Patient has ascites would start low-dose Aldactone and slowly titrate the dose up Close monitoring for aspiration precautions with the feeding 03/28/18 21:54
[2018-03-28] MEDS: levETIRAcetam 1,000 MG in Sodium Chloride 0.9% 100 ML IV SCH ×2 (10:26→21:51)
--- NOTE | 2018-03-28 11:57 | CP.PCM.PN ---
Subjective - Date & Time of Evaluation Date of Evaluation: 03/28/18 Time of Evaluation: 11:30 - Subjective Subjective: Patient is sleepy but arousable and answers simple questions, still having low grade fevers, no vomiting, no diarrhea. Objective - Vital Signs/Intake and Output Vital Signs (last 24 hours): Temp Pulse Resp BP Pulse Ox 99.9 F H 81 25 H 138/78 100 03/26/18 19:30 03/27/18 10:30 03/27/18 07:27 03/27/18 10:30 03/27/18 07:27 Intake and Output: 03/27/18 03/27/18 06:59 18:59 Intake Total 1591 Output Total 3175 Balance -1584 - Medications Medications: Current Medications Carvedilol (Coreg) 3.125 mg PO BID [facility] Last Admin: 03/27/18 10:30 Dose: 3.125 mg Famotidine (Pepcid) 20 mg IVP DAILY [facility] Last Admin: 03/27/18 11:00 Dose: 20 mg Nicardipine HCl (Cardene Iv Premix) 20 mg in 200 mls @ 50 mls/hr IV .Q4H PRN; Protocol; 5 MG/HR PRN Reason: TITRATE PER MD ORDER Last Titration: 03/25/18 11:00 Dose: Infused Aztreonam (Azactam 1 Gm) 100 mls @ 100 mls/hr IVPB Q8 [facility] PRN Reason: Protocol Stop: 04/01/18 09:01 Last Admin: 03/27/18 05:15 Dose: 100 mls/hr Vancomycin HCl (Vancomycin 1gm) 1 gm in 250 mls @ 167 mls/hr IVPB Q12H [facility] PRN Reason: Protocol Last Admin: 03/27/18 10:38 Dose: 167 mls/hr Levetiracetam 1,000 mg/ Sodium (Chloride) 110 mls @ 460 mls/hr IV Q12 [facility] Last Admin: 03/27/18 10:32 Dose: 460 mls/hr Dexmedetomidine HCl (Precedex 400mcg/100ml) 400 mcg in 100 mls @ 3.128 mls/hr IV .Q24H PRN; Protocol; 0.2 MCG/KG/HR PRN Reason: Agitation Last Admin: 03/26/18 23:10 Dose: 0.2 mcg/kg/hr, 3.128 mls/hr Potassium Phosphate 30 mmole/ (Sodium Chloride) 260 mls @ 42.5 mls/hr IVPB ONCE ONE Stop: 03/27/18 14:52 Last Admin: 03/27/18 10:36 Dose: 42.5 mls/hr Insulin Human Regular (Humulin R Low) 0 units SC Q6H [facility]EN PRN Reason: Protocol Last Admin: 03/27/18 08:00 Dose: Not Given Vitamin A (Vitamin A & D Oint Ud Foilpak) 1 ea TOP Q12 PRN PRN Reason: apply to dry lips Last Admin: 03/24/18 10:19 Dose: 1 ea - Labs Labs: 03/27/18 05:40 03/27/18 05:40 PT 20.2 SECONDS (9.4-12.5) H 03/25/18 05:40 INR 1.74 03/25/18 05:40 APTT 31.5 Seconds (25.1-36.5) 03/25/18 05:40 - Constitutional Appears: Chronically Ill - ENT Exam ENT Exam: Mucous Membranes Moist - Neck Exam Neck Exam: absent: Meningismus Additional comments: right IJ TLC in place - Respiratory Exam Respiratory Exam: Decreased Breath Sounds - Cardiovascular Exam Cardiovascular Exam: +S1, +S2 - GI/Abdominal Exam GI & Abdominal Exam: Soft. absent: Tenderness Assessment and Plan - Assessment and Plan (Free Text) Plan: Assessment New onset systemic inflammatory response syndrome in this patient with acute left sided intra-cranial hemorrhage S/P ventilator-dependent respiratory failure , R/O sepsis due HCAP, R/O UTI due to gram negative bacilli R/O central fever hyperbilirubinemia probably related to chronic liver disease / liver cirrhosis ethanol abuse liver cirrhosis with esophageal varices S/P banding in 2014 arthritis history of spinal stenosis Plan continue Vancomycin and Azactam day 4 pending identification and sensitivities of the bacteria in the urine; blood cx are negative; PCT is less than 0.5, repeat CXR shows improving perihilar infiltrate discussed with Dr. Laguna previously follow up further plans of Neurology and Neurosurgery HIV test is non-reactive
--- NOTE | 2018-03-28 12:06 | PN ---
DATE: 03/27/2018 SUBJECTIVE: The patient was seen this Friday morning in Intensive Care Unit, CCU bed 3. She was extubated earlier this morning. She is still a bit groggy. Mouth and lips are dry and crusted. She is able to recognize me and speak a few words, but again very lethargic. PHYSICAL EXAMINATION: LUNGS: Show good aeration in right and left. HEART: Regular, not tachycardic. EXTREMITIES: She is able to move all extremities; fair hand grasp, although it is weak. I spoke with the precision lens polisher, she will remain in the ICU today. Probably be ready for transfer tomorrow. Notes from the precision lens polisher, Residency staff, consultants are appreciated. Abilio Bass MD MTDPankaj
--- NOTE | 2018-03-28 12:42 | CP.PCM.PN ---
Subjective - Date & Time of Evaluation Date of Evaluation: 03/28/18 Time of Evaluation: 12:40 - Subjective Subjective: 62 y/o female seen in ICU. Patient awake and alert with at bedside. Denies throat mouth pain today Objective - Vital Signs/Intake and Output Vital Signs (last 24 hours): Temp Pulse Resp BP Pulse Ox 100.2 F H 82 40 H 164/87 H 91 L 03/28/18 05:43 03/28/18 09:18 03/28/18 05:30 03/28/18 09:18 03/28/18 05:43 Intake and Output: 03/28/18 03/28/18 06:59 18:59 Intake Total 550 Output Total 900 Balance -350 - Medications Medications: Current Medications Carvedilol (Coreg) 3.125 mg PO BID [facility] Last Admin: 03/28/18 09:18 Dose: 3.125 mg Famotidine (Pepcid) 20 mg IVP DAILY [facility] Last Admin: 03/28/18 09:18 Dose: 20 mg Nicardipine HCl (Cardene Iv Premix) 20 mg in 200 mls @ 50 mls/hr IV .Q4H PRN; Protocol; 5 MG/HR PRN Reason: TITRATE PER MD ORDER Last Titration: 03/25/18 11:00 Dose: Infused Aztreonam (Azactam 1 Gm) 100 mls @ 100 mls/hr IVPB Q8 [facility] PRN Reason: Protocol Stop: 04/01/18 09:01 Last Admin: 03/28/18 05:14 Dose: 100 mls/hr Vancomycin HCl (Vancomycin 1gm) 1 gm in 250 mls @ 167 mls/hr IVPB Q12H [facility] PRN Reason: Protocol Last Admin: 03/28/18 09:18 Dose: 167 mls/hr Levetiracetam 1,000 mg/ Sodium (Chloride) 110 mls @ 460 mls/hr IV Q12 [facility] Last Admin: 03/28/18 10:26 Dose: 460 mls/hr Dexmedetomidine HCl (Precedex 400mcg/100ml) 400 mcg in 100 mls @ 3.128 mls/hr IV .Q24H PRN; Protocol; 0.2 MCG/KG/HR PRN Reason: Agitation Last Admin: 03/26/18 23:10 Dose: 0.2 mcg/kg/hr, 3.128 mls/hr Dextrose/Sodium Chloride (Dextrose 5%/0.45% Ns 1000 Ml) 1,000 mls @ 60 mls/hr IV .[id number] [facility] Last Admin: 03/28/18 08:00 Dose: 60 mls/hr Insulin Human Regular (Humulin R Low) 0 units SC Q6H [facility] PRN Reason: Protocol Last Admin: 03/28/18 09:19 Dose: Not Given Vitamin A (Vitamin A & D Oint Ud Foilpak) 1 ea TOP Q12 PRN PRN Reason: apply to dry lips Last Admin: 03/28/18 09:19 Dose: 1 ea - Labs Labs: 03/28/18 06:15 03/28/18 06:15 PT 20.2 SECONDS (9.4-12.5) H 03/25/18 05:40 INR 1.74 03/25/18 05:40 APTT 31.5 Seconds (25.1-36.5) 03/25/18 05:40 - Constitutional Appears: Well, Non-toxic - Head Exam Head Exam: ATRAUMATIC, NORMAL INSPECTION - Eye Exam Eye Exam: Normal appearance - ENT Exam ENT Exam: Mucous Membranes Moist Additional comments: Canals patent Nose: wnl Fiona: poor dentition with caries, area where tooth dislodged not bleeding and healing over Assessment and Plan (1) Electrolyte imbalance Status: Acute (2) Hypernatremia Status: Acute (3) Hypokalemia Status: Acute (4) Intracranial hemorrhage Status: Acute (5) Seizure Status: Acute (6) GI bleed Status: Acute (7) Loose tooth due to trauma Status: Acute - Assessment and Plan (Free Text) Plan: continue oral hygiene and monitor
--- NOTE | 2018-03-28 17:58 | PN ---
DATE: 03/28/2018 SUBJECTIVE: Patient was seen this Friday morning in intensive care unit, CCU, bed 3. She is awake, extubated yesterday morning, more alert, mouth care is markedly improved. She is able to talk, although she is a little slow and groggy. I explained the events lading up to her admission including the stroke and intubation, life support, etc., for which she is grateful. I talked to her about her tobacco use. She is smoking pack a day of cigarettes prior to admission. Today is day 7 without smoking. She understands the severity of her recent illness. I read out plan including out of bed today, physical therapy, and possible rehab depending on her abilities. Speech pathologist is here to see her now for swallowing evaluation and then increased diet as the patient was quite hungry and asking for food. PHYSICAL EXAMINATION LUNGS: Show good aeration right and left with prolonged expiratory phase with COPD. HEART: Regular, but not tachycardic. EXTREMITIES: Thin without edema. IMPRESSION: 1. Status post intracranial bleed. 2. Active tobacco use. 3. Chronic obstructive pulmonary disease. PLAN: Swallowing evaluation, increased diet, out of bed, increased activity, physical therapy. Abilio Bass MD
[2018-03-29] MEDS: Insulin Reg-LOW-Coverage SC SCH ×4 (02:00→20:39)
[2018-03-29] MEDS: Dextrose 5%/0.45% NS 1,000 ML IV SCH ×2 (03:30→13:17)
[2018-03-29 05:15] LABS: ARTERIAL BLOOD GAS HCO3 21.1 mmol/L (21-28); ARTERIAL BLOOD GAS HEMOGLOBIN 10.1 g/dL (11.7-17.4); ARTERIAL BLOOD GAS O2 CAPACITY 13.7 mL/dl (16-24); ARTERIAL BLOOD GAS O2 SAT 94.8 % (95-98); ARTERIAL BLOOD GAS PCO2 29 mm/Hg (35-45); ARTERIAL BLOOD GAS PH 7.47 (7.35-7.45)
[2018-03-29 06:15] LABS: BASO # 0.02 K/mm3 (0.0-2.0); BASO % 0.3 % (0.0-3.0); EOS # 0.2 (0.0-0.7); EOS % 2.6 % (1.5-5.0); GRAN # 5.79 (1.4-6.5); GRAN % 76.1 % (50.0-68.0); HEMOGLOBIN 10.5 g/dL (12.0-16.0); LYMPH # 0.7 (1.2-3.4); LYMPH % 8.9 % (22.0-35.0); MEAN CELL VOLUME 94.1 fl (80.0-105.0); MEAN CORPUSCULAR HEMOGLOBIN 31.2 pg (25.0-35.0); MEAN CORPUSCULAR HGB CONC 33.1 g/dl (31.0-37.0); MEAN PLATELET VOLUME 10.1 fl (7.0-11.0); MONO # 0.9 (0.1-0.6); MONO % 12.1 % (1.0-6.0); RBC 3.37 10^6/uL (3.5-6.1); RED CELL DISTRIBUTION WIDTH 16.3 % (11.5-14.5); WHITE BLOOD COUNT 7.6 10^3/ul (4.5-11.0)
[2018-03-29] MEDS: Aztreonam 1 Gm in NS 100mL 100 ML IVPB SCH ×3 (06:44→21:59)
[2018-03-29 06:48] LABS: BLOOD UREA NITROGEN 13 mg/dL (7-21); CALCIUM 8.3 mg/dL (8.4-10.5); GFR NON-AFRICAN AMERICAN > 60
[2018-03-29] MEDS: Vancomycin 1gm in NS 250ml 1 GM/250 ML BAG IVPB SCH ×2 (08:19→21:59)
--- NOTE | 2018-03-29 09:19 | CP.PCM.PN ---
Subjective - Date & Time of Evaluation Date of Evaluation: 03/29/18 Time of Evaluation: 09:00 - Subjective Subjective: Patient is somewhat sleepy but answers simple questions, last low grade temperature was 9 pm last night but no fevers this morning, right IJ TLC has been removed. No diarrhea. Objective - Vital Signs/Intake and Output Vital Signs (last 24 hours): Temp Pulse Resp BP Pulse Ox 100.2 F H 82 40 H 164/87 H 91 L 03/28/18 05:43 03/28/18 09:18 03/28/18 05:30 03/28/18 09:18 03/28/18 05:43 Intake and Output: 03/28/18 03/28/18 06:59 18:59 Intake Total 550 Output Total 900 Balance -350 - Medications Medications: Current Medications Carvedilol (Coreg) 3.125 mg PO BID [facility] Last Admin: 03/28/18 09:18 Dose: 3.125 mg Famotidine (Pepcid) 20 mg IVP DAILY [facility] Last Admin: 03/28/18 09:18 Dose: 20 mg Nicardipine HCl (Cardene Iv Premix) 20 mg in 200 mls @ 50 mls/hr IV .Q4H PRN; Protocol; 5 MG/HR PRN Reason: TITRATE PER MD ORDER Last Titration: 03/25/18 11:00 Dose: Infused Aztreonam (Azactam 1 Gm) 100 mls @ 100 mls/hr IVPB Q8 [facility] PRN Reason: Protocol Stop: 04/01/18 09:01 Last Admin: 03/28/18 05:14 Dose: 100 mls/hr Vancomycin HCl (Vancomycin 1gm) 1 gm in 250 mls @ 167 mls/hr IVPB Q12H [facility]EN PRN Reason: Protocol Last Admin: 03/28/18 09:18 Dose: 167 mls/hr Levetiracetam 1,000 mg/ Sodium (Chloride) 110 mls @ 460 mls/hr IV Q12 [facility] Last Admin: 03/28/18 10:26 Dose: 460 mls/hr Dexmedetomidine HCl (Precedex 400mcg/100ml) 400 mcg in 100 mls @ 3.128 mls/hr IV .Q24H PRN; Protocol; 0.2 MCG/KG/HR PRN Reason: Agitation Last Admin: 03/26/18 23:10 Dose: 0.2 mcg/kg/hr, 3.128 mls/hr Dextrose/Sodium Chloride (Dextrose 5%/0.45% Ns 1000 Ml) 1,000 mls @ 60 mls/hr IV .[id number] [facility] Last Admin: 03/28/18 08:00 Dose: 60 mls/hr Insulin Human Regular (Humulin R Low) 0 units SC Q6H [facility]EVEN PRN Reason: Protocol Last Admin: 03/28/18 09:19 Dose: Not Given Vitamin A (Vitamin A & D Oint Ud Foilpak) 1 ea TOP Q12 PRN PRN Reason: apply to dry lips Last Admin: 03/28/18 09:19 Dose: 1 ea - Labs Labs: 03/28/18 06:15 03/28/18 06:15 PT 20.2 SECONDS (9.4-12.5) H 03/25/18 05:40 INR 1.74 03/25/18 05:40 APTT 31.5 Seconds (25.1-36.5) 03/25/18 05:40 - Constitutional Appears: No Acute Distress, Chronically Ill - ENT Exam ENT Exam: Mucous Membranes Moist - Respiratory Exam Respiratory Exam: Decreased Breath Sounds - Cardiovascular Exam Cardiovascular Exam: +S1, +S2 - GI/Abdominal Exam GI & Abdominal Exam: Soft. absent: Tenderness Assessment and Plan - Assessment and Plan (Free Text) Plan: Assessment systemic inflammatory response syndrome in this patient with acute left sided intra-cranial hemorrhage S/P ventilator-dependent respiratory failure, R/O sepsis due HCAP, R/O UTI due to gram negative bacilli R/O central fever hyperbilirubinemia probably related to chronic liver disease / liver cirrhosis ethanol abuse liver cirrhosis with esophageal varices S/P banding in 2014 arthritis history of spinal stenosis Plan continue Vancomycin and Azactam day 5 pending identification and sensitivities of the bacteria in the urine; blood cx are negative; PCT is less than 0.5, repeat CXR shows improving perihilar infiltrate discussed with Dr. Laguna previously follow up further plans of Neurology and Neurosurgery HIV test is non-reactive
--- NOTE | 2018-03-29 09:27 | PN ---
DATE: 03/29/2018 THERAPIST SPEECH NOTE LOCATION: At [facility]. SUBJECTIVE: The patient is resting in bed. No significant change this morning. No acute distress. No respiratory distress. She is on oxygen via nasal cannula. Does have occasional cough. PHYSICAL EXAMINATION: VITAL SIGNS: Her temp is 98.6, her pulse is 84, respirations are 16 and BP is 153/83. HEENT: Head is atraumatic, normocephalic. Eyes reactive to light. Ears, nose and throat seemed to be within normal limits. NECK: Supple. No JVD. No thyroid enlargement. No lymph nodes. HEART: Has a regular rate and rhythm. Normal S1, S2. LUNGS: Reveal rare rhonchi at the bases. ABDOMEN: Soft. Slightly decreased bowel sounds. GENITALIA AND RECTAL: Deferred. MUSCULOSKELETAL: No joint deformities. EXTREMITIES: Reveal trace lower extremity edema. NEUROLOGICAL: She seemed to be grossly intact. LABORATORY DATA: Laboratories reveal white count of 7.6, hemoglobin of 10.5, hematocrit 31.7 with platelets of 52,000. Sodium is 142, potassium 3.2, chloride is 112, CO2 of 23, BUN of 15, creatinine of 0.4 and a glucose of 102. The patient's chest x-ray reveals slightly diminished CHF pattern. No internal change in the heterogeneous infiltrate bilaterally, right greater than left. There is a small pleural effusion, which is stable. IMPRESSION: As far as my impression, the patient has intracranial bleed with seizure. She is noted to have left occipital hemorrhage. She has pulmonary edema and a history of alcohol abuse and cirrhosis as well as ascites. The patient has anemia as well as thrombocytopenia. PLAN: As far as our plan, we will continue with aztreonam as well as Coreg, Keppra, Cardene, Pepcid, vancomycin, vitamins. We will continue to follow close and continue with the patient's vancomycin and vitamins and Pepcid as well as her other medications and follow closely with Neurology. Cameron Guillory MD
[2018-03-29] MEDS: levETIRAcetam 1,000 MG in Sodium Chloride 0.9% 100 ML IV SCH ×2 (09:42→21:59)
--- NOTE | 2018-03-29 11:22 | CP.PCM.PN ---
<Alex Lazo - Last Filed: 03/29/18 11:18> Subjective - Date & Time of Evaluation Date of Evaluation: 03/29/18 Time of Evaluation: 11:00 - Subjective Subjective: PGY6 GI Fellow Progress Note Patient seen and examined bedside this morning. The patient is drowsy but arousable. She denies any pain, discomfort presently. Only answering with yes/ no at this time. Food tray at bedside not eaten. 12 system ROS limited given clinical condition. Objective - Vital Signs/Intake and Output Vital Signs (last 24 hours): Temp Pulse Resp BP Pulse Ox 98.6 F 84 16 171/93 H 93 L 03/29/18 04:40 03/29/18 06:00 03/29/18 04:40 03/29/18 10:44 03/29/18 04:40 Intake and Output: 03/29/18 03/29/18 06:59 18:59 Intake Total 1020 Output Total 650 Balance 370 - Medications Medications: Current Medications Acetaminophen (Tylenol 325mg Tab) 650 mg PO Q6H PRN PRN Reason: Fever >100.4 F Last Admin: 03/29/18 10:44 Dose: 650 mg Carvedilol (Coreg) 3.125 mg PO BID [facility] Last Admin: 03/29/18 09:31 Dose: Not Given Famotidine (Pepcid) 20 mg IVP DAILY [facility] Last Admin: 03/29/18 09:26 Dose: 20 mg Nicardipine HCl (Cardene Iv Premix) 20 mg in 200 mls @ 50 mls/hr IV .Q4H PRN; Protocol; 5 MG/HR PRN Reason: TITRATE PER MD ORDER Last Titration: 03/25/18 11:00 Dose: Infused Aztreonam (Azactam 1 Gm) 100 mls @ 100 mls/hr IVPB Q8 STEVEN PRN Reason: Protocol Stop: 04/01/18 09:01 Last Admin: 03/29/18 06:44 Dose: 100 mls/hr Vancomycin HCl (Vancomycin 1gm) 1 gm in 250 mls @ 167 mls/hr IVPB Q12H STEVEN PRN Reason: Protocol Last Admin: 03/29/18 08:19 Dose: 167 mls/hr Levetiracetam 1,000 mg/ Sodium (Chloride) 110 mls @ 460 mls/hr IV Q12 [facility] Last Admin: 03/29/18 09:42 Dose: 460 mls/hr Dexmedetomidine HCl (Precedex 400mcg/100ml) 400 mcg in 100 mls @ 3.128 mls/hr IV .Q24H PRN; Protocol; 0.2 MCG/KG/HR PRN Reason: Agitation Last Admin: 03/26/18 23:10 Dose: 0.2 mcg/kg/hr, 3.128 mls/hr Dextrose/Sodium Chloride (Dextrose 5%/0.45% Ns 1000 Ml) 1,000 mls @ 60 mls/hr IV .[id number] STEVEN Last Admin: 03/29/18 03:30 Dose: 60 mls/hr Insulin Human Regular (Humulin R Low) 0 units SC Q6H STEVEN PRN Reason: Protocol Last Admin: 03/29/18 07:57 Dose: Not Given Vitamin A (Vitamin A & D Oint Ud Foilpak) 1 ea TOP Q12 PRN PRN Reason: apply to dry lips Last Admin: 03/28/18 09:19 Dose: 1 ea - Labs Labs: 03/29/18 05:00 03/29/18 05:00 PT 20.2 SECONDS (9.4-12.5) H 03/25/18 05:40 INR 1.74 03/25/18 05:40 APTT 31.5 Seconds (25.1-36.5) 03/25/18 05:40 - Constitutional Appears: No Acute Distress, Confused, Chronically Ill - Eye Exam Eye Exam: PERRL - ENT Exam ENT Exam: Mucous Membranes Moist - Respiratory Exam Respiratory Exam: Decreased Breath Sounds, Rales. absent: Rhonchi, Wheezes - Cardiovascular Exam Cardiovascular Exam: RRR, +S1, +S2 - GI/Abdominal Exam GI & Abdominal Exam: Soft, Normal Bowel Sounds. absent: Distended, Firm, Guarding, Rigid, Tenderness, Organomegaly - Extremities Exam Extremities Exam: Normal Inspection. absent: Pedal Edema - Neurological Exam Neurological Exam: Altered, Awake - Psychiatric Exam Psychiatric exam: Flat Affect - Skin Skin Exam: Dry, Warm Assessment and Plan - Assessment and Plan (Free Text) Assessment: Patient is a 62yo female with PMHx significant for decompensated EtOH cirrhosis c/b EV who presented with AMS/seizure activity and was found to have a hemorrhagic CVA with herniation. -Acute CVA - hemorrhagic with herniation -Decompensated EtOH cirrhosis with esophageal varices -Colonic AVMs -Pancytopenia Plan: -ENROLLMENT NURSE recommended soft diet with thin liquid trials 3x/wk -Recommend puree diet as patient remains somnolent -Beta yousif ordered (Coreg) for EV bleeding prophylaxis -Moderate ascites on abdominal CT from 03/27/18 - recommend initiation of diuretic therapy with Aldactone 100mg PO QD as tolerated by patient -Ammonia level WNL - though studies show these may not correlate with degree of encephalopathy; still believe recent ACH/herniation likely causative factor for AMS/seizure activity -Plan per ICU/neurology *MELD-Na: 19 (on 03/25/18) <Jean-Claude Vernon V - Last Filed: 04/02/18 23:10> Objective - Vital Signs/Intake and Output Vital Signs (last 24 hours): Temp Pulse Resp BP Pulse Ox 98.4 F 75 20 108/62 93 L 04/02/18 16:57 04/02/18 17:59 04/02/18 16:57 04/02/18 17:11 04/02/18 16:57 Intake and Output: 04/02/18 04/03/18 18:59 06:59 Intake Total 1310 Output Total 2500 Balance -1190 - Medications Medications: Current Medications Acetaminophen (Tylenol 325mg Tab) 650 mg PO Q6H PRN PRN Reason: Fever >100.4 F Last Admin: 03/30/18 13:49 Dose: 650 mg Carvedilol (Coreg) 3.125 mg PO BID [facility] Last Admin: 04/02/18 17:11 Dose: 3.125 mg Famotidine (Pepcid) 20 mg PO DAILY [facility] Last Admin: 04/02/18 09:24 Dose: 20 mg Furosemide (Lasix) 20 mg IV DAILY [facility] Last Admin: 04/02/18 09:24 Dose: 20 mg Levetiracetam 1,000 mg/ Sodium (Chloride) 110 mls @ 460 mls/hr IV Q12 [facility] Last Admin: 04/02/18 21:33 Dose: 460 mls/hr Insulin Human Regular (Humulin R Low) 0 units SC Q6H STEVEN PRN Reason: Protocol Last Admin: 04/02/18 21:23 Dose: Not Given Lactulose (Enulose) 20 gm PO DAILY [facility] Last Admin: 04/02/18 09:23 Dose: 20 gm Spironolactone (Aldactone) 100 mg PO DAILY [facility] Last Admin: 04/02/18 09:24 Dose: 100 mg Trimethoprim/Sulfamethoxazole (Bactrim Ds Tab) 1 tab PO BID [facility] PRN Reason: Protocol Last Admin: 04/02/18 17:11 Dose: 1 tab Vitamin A (Vitamin A & D Oint Ud Foilpak) 1 ea TOP Q12 PRN PRN Reason: apply to dry lips Last Admin: 03/30/18 09:24 Dose: 1 ea - Labs Labs: 04/02/18 06:00 04/02/18 06:00 PT 21.6 SECONDS (9.4-12.5) H 03/31/18 06:10 INR 1.85 03/31/18 06:10 APTT 31.5 Seconds (25.1-36.5) 03/25/18 05:40 Attending/Attestation - Attestation I have personally seen and examined this patient.: Yes I have fully participated in the care of the patient.: Yes I have reviewed all pertinent clinical information, including history, physical exam and plan: Yes Notes (Text): This is an addendum to GI progress report dictated by the GI Fellow.The patient was seen and examined earlier. Medical records, lab studies, imagings were reviewed. Last 24 hours events reviewed. Agreed with the above treatment plan as outlined in GI Fellow 's notes with the addition of the following Patient drowsy abdomen soft Follow up ammonia level, platelets Discussed with product applications scientist 04/02/18 23:09
--- NOTE | 2018-03-29 15:43 | CP.PCM.PN ---
Subjective - Date & Time of Evaluation Date of Evaluation: 03/29/18 Time of Evaluation: 15:40 - Subjective Subjective: Pt seen and examined no further bleeding from mouth. Doing well speaking slightly better. Objective - Vital Signs/Intake and Output Vital Signs (last 24 hours): Temp Pulse Resp BP Pulse Ox 100.6 F H 83 27 H 136/69 93 L 03/29/18 12:18 03/29/18 12:18 03/29/18 12:18 03/29/18 12:18 03/29/18 04:40 Intake and Output: 03/29/18 03/29/18 06:59 18:59 Intake Total 1020 Output Total 650 Balance 370 - Medications Medications: Current Medications Acetaminophen (Tylenol 325mg Tab) 650 mg PO Q6H PRN PRN Reason: Fever >100.4 F Last Admin: 03/29/18 10:44 Dose: 650 mg Carvedilol (Coreg) 3.125 mg PO BID [facility] Last Admin: 03/29/18 09:31 Dose: Not Given Famotidine (Pepcid) 20 mg IVP DAILY [facility] Last Admin: 03/29/18 09:26 Dose: 20 mg Furosemide (Lasix) 20 mg IV DAILY [facility] Nicardipine HCl (Cardene Iv Premix) 20 mg in 200 mls @ 50 mls/hr IV .Q4H PRN; Protocol; 5 MG/HR PRN Reason: TITRATE PER MD ORDER Last Titration: 03/25/18 11:00 Dose: Infused Aztreonam (Azactam 1 Gm) 100 mls @ 100 mls/hr IVPB Q8 [facility] PRN Reason: Protocol Stop: 04/01/18 09:01 Last Admin: 03/29/18 13:16 Dose: 100 mls/hr Vancomycin HCl (Vancomycin 1gm) 1 gm in 250 mls @ 167 mls/hr IVPB Q12H [facility]EVEN PRN Reason: Protocol Last Admin: 03/29/18 08:19 Dose: 167 mls/hr Levetiracetam 1,000 mg/ Sodium (Chloride) 110 mls @ 460 mls/hr IV Q12 [facility] Last Admin: 03/29/18 09:42 Dose: 460 mls/hr Dexmedetomidine HCl (Precedex 400mcg/100ml) 400 mcg in 100 mls @ 3.128 mls/hr IV .Q24H PRN; Protocol; 0.2 MCG/KG/HR PRN Reason: Agitation Last Admin: 03/26/18 23:10 Dose: 0.2 mcg/kg/hr, 3.128 mls/hr Potassium Chloride (Potassium Chloride 20 Meq/100 Ml) 20 meq in 100 mls @ 50 mls/hr IVPB Q2H [facility] Stop: 03/29/18 16:59 Last Admin: 03/29/18 13:16 Dose: 50 mls/hr Dextrose/Sodium Chloride (Dextrose 5%/0.45% Ns 1000 Ml) 1,000 mls @ 40 mls/hr IV .Q24H [facility]EV[facility] Last Admin: 03/29/18 13:17 Dose: 40 mls/hr Insulin Human Regular (Humulin R Low) 0 units SC Q6H STEVEN PRN Reason: Protocol Last Admin: 03/29/18 15:10 Dose: Not Given Vitamin A (Vitamin A & D Oint Ud Foilpak) 1 ea TOP Q12 PRN PRN Reason: apply to dry lips Last Admin: 03/28/18 09:19 Dose: 1 ea - Labs Labs: 03/29/18 05:00 03/29/18 05:00 PT 20.2 SECONDS (9.4-12.5) H 03/25/18 05:40 INR 1.74 03/25/18 05:40 APTT 31.5 Seconds (25.1-36.5) 03/25/18 05:40 - Head Exam Head Exam: NORMAL INSPECTION - Eye Exam Eye Exam: EOMI - ENT Exam ENT Exam: Mucous Membranes Moist Additional comments: Ears: patent Nose: no rhinitis Throat: no bleeding from mouth , MMM - Neck Exam Neck Exam: Normal Inspection Assessment and Plan (1) Electrolyte imbalance Status: Acute (2) Hypernatremia Status: Acute (3) Hypokalemia Status: Acute (4) Intracranial hemorrhage Status: Acute (5) Seizure Status: Acute (6) GI bleed Status: Acute (7) Loose tooth due to trauma Status: Acute (8) Dysphonia Status: Acute - Assessment and Plan (Free Text) Assessment: Pt doing well no bleeding from mouth will monitor, speech improving-monitor Plan: no further bleeding from mouth, speech improving will continue to monitor
--- NOTE | 2018-03-29 15:55 | PN ---
DATE: 03/29/2018 SUBJECTIVE: The patient is seen in the ICU. She is lying in bed. She is awake. She is alert. She is responsive. She is somewhat lethargic. As per the nursing staff, she is more lethargic today. She denies any pain. She has a very wet cough. She reports that she is maybe bringing up some phlegm. She denies any fevers. She denies any chills. As per the nursing staff, the patient ate some breakfast this morning. PHYSICAL EXAMINATION: GENERAL: Elderly lady, seen in the ICU. VITAL SIGNS: Blood pressure 136/69, heart rate 83, respiratory rate 27-34, temperature 100.6. HEENT: Normocephalic, atraumatic, positive pallor. NECK: Supple, no JVD. LUNGS: Bilateral equal air entry, bilateral equal expansion, no rales appreciated anteriorly. CARDIAC: S1 and S2, regular rate and rhythm, no murmur, no rub. ABDOMEN: Distended, soft, bowel sounds present. EXTREMITIES: No lower extremity edema. SKIN: Multiple petechiae on the upper chest wall, spider angiomata. INTAKE AND OUTPUT: 2890/1325. LABORATORY DATA: WBC 7.6, hemoglobin 10.5, hematocrit 32, platelets 52. Sodium 142, potassium 3.2, chloride 112, CO2 of 23, BUN 13, creatinine 0.4, glucose 102, calcium 8.3, phosphorus was 3.2 yesterday, total bili 4.9, AST 48, ALT 29, albumin 3. Urine culture: Salmonella. CURRENT MEDICATIONS: Azactam 1 g every 8, Coreg 3.125 b.i.d., D5 half-normal saline at 60, Keppra 1000 every 12, Pepcid, KCl 20 mEq x2 ordered, Precedex, Tylenol, vancomycin 1 g every 12, Lasix 20 mg given this morning. ASSESSMENT: 1. Acute intracranial bleed, cerebral hemorrhage. 2. History of alcoholic liver disease, cirrhosis, ascites. 3. Hypernatremia secondary to hypertonic saline, resolved. 4. Persistent hypokalemia. 5. Resolved hypophosphatemia. 6. Decompensated congestive heart failure/volume overload. PLAN: 1. Replace potassium, KCl 20 mEq x2. 2. Decrease IV fluids to 40 mL/hour of maintenance. 3. Lasix 20 mg IV daily. 4. Continue antibiotics as per ID recommendations. 5. Increase p.o. intake as tolerated. 6. Monitor platelet count. 7. Case discussed at length with the ICU staff, ICU nursing staff and residents. More than 35 minutes spent in the care of this critically ill patient. Eleni Lobo MD
--- NOTE | 2018-03-29 17:45 | CP.PCM.PN ---
Subjective - Date & Time of Evaluation Date of Evaluation: 03/28/18 Time of Evaluation: 20:00 - Subjective Subjective: No acute complaints. at bedside ROS 12 ROS negative otherwise Objective - Vital Signs/Intake and Output Vital Signs (last 24 hours): Temp Pulse Resp BP Pulse Ox 100.2 F H 83 20 168/92 H 93 L 03/29/18 16:43 03/29/18 17:04 03/29/18 16:43 03/29/18 17:04 03/29/18 04:40 Intake and Output: 03/29/18 03/29/18 06:59 18:59 Intake Total 1020 Output Total 650 Balance 370 - Medications Medications: Current Medications Acetaminophen (Tylenol 325mg Tab) 650 mg PO Q6H PRN PRN Reason: Fever >100.4 F Last Admin: 03/29/18 10:44 Dose: 650 mg Carvedilol (Coreg) 3.125 mg PO BID [facility] Last Admin: 03/29/18 17:04 Dose: 3.125 mg Famotidine (Pepcid) 20 mg IVP DAILY [facility] Last Admin: 03/29/18 09:26 Dose: 20 mg Furosemide (Lasix) 20 mg IV DAILY [facility] Nicardipine HCl (Cardene Iv Premix) 20 mg in 200 mls @ 50 mls/hr IV .Q4H PRN; Protocol; 5 MG/HR PRN Reason: TITRATE PER MD ORDER Last Titration: 03/25/18 11:00 Dose: Infused Aztreonam (Azactam 1 Gm) 100 mls @ 100 mls/hr IVPB Q8 [facility]EVEN PRN Reason: Protocol Stop: 04/01/18 09:01 Last Admin: 03/29/18 13:16 Dose: 100 mls/hr Vancomycin HCl (Vancomycin 1gm) 1 gm in 250 mls @ 167 mls/hr IVPB Q12H [facility]EN PRN Reason: Protocol Last Admin: 03/29/18 08:19 Dose: 167 mls/hr Levetiracetam 1,000 mg/ Sodium (Chloride) 110 mls @ 460 mls/hr IV Q12 [facility]EV[facility] Last Admin: 03/29/18 09:42 Dose: 460 mls/hr Dexmedetomidine HCl (Precedex 400mcg/100ml) 400 mcg in 100 mls @ 3.128 mls/hr IV .Q24H PRN; Protocol; 0.2 MCG/KG/HR PRN Reason: Agitation Last Admin: 03/26/18 23:10 Dose: 0.2 mcg/kg/hr, 3.128 mls/hr Dextrose/Sodium Chloride (Dextrose 5%/0.45% Ns 1000 Ml) 1,000 mls @ 40 mls/hr IV .Q24H [facility] Last Admin: 03/29/18 13:17 Dose: 40 mls/hr Insulin Human Regular (Humulin R Low) 0 units SC Q6H STEVEN PRN Reason: Protocol Last Admin: 03/29/18 15:10 Dose: Not Given Vitamin A (Vitamin A & D Oint Ud Foilpak) 1 ea TOP Q12 PRN PRN Reason: apply to dry lips Last Admin: 03/28/18 09:19 Dose: 1 ea - Labs Labs: 03/29/18 05:00 03/29/18 05:00 PT 20.2 SECONDS (9.4-12.5) H 03/25/18 05:40 INR 1.74 03/25/18 05:40 APTT 31.5 Seconds (25.1-36.5) 03/25/18 05:40 - Constitutional Appears: Non-toxic - Respiratory Exam Respiratory Exam: Clear to Ausculation Bilateral, NORMAL BREATHING PATTERN - Cardiovascular Exam Cardiovascular Exam: REGULAR RHYTHM, +S1, +S2. absent: Murmur - Extremities Exam Extremities Exam: Full ROM, Normal Capillary Refill, Normal Inspection. absent : Joint Swelling, Pedal Edema Assessment and Plan - Assessment and Plan (Free Text) Plan: 62 yo F with PMH of EtOH abuse, cirrhosis, esophageal varices, thrombocytopenia , spinal stenosis, arthritis, and degenerative joint disease admitted to ICU for status epilepticus 2/ 2.8x2.8cm left occipital lobe hemorrage found on CT which has now stabilized on most recent imaging. Patient now extubated succesffully. Cytopenias likely related to ETOH cirrhosis. Transfuse for plts < 50 Christiano Medellin MD Hematology Service
--- NOTE | 2018-03-29 17:49 | CP.PCM.PN ---
Subjective - Date & Time of Evaluation Date of Evaluation: 03/29/18 Time of Evaluation: 21:00 - Subjective Subjective: REports of slight confusion and agitation this AM. Pulled out triple lumen catheter ROS: 12 ROS negative per patient Objective - Vital Signs/Intake and Output Vital Signs (last 24 hours): Temp Pulse Resp BP Pulse Ox 100.2 F H 83 20 168/92 H 93 L 03/29/18 16:43 03/29/18 17:04 03/29/18 16:43 03/29/18 17:04 03/29/18 04:40 Intake and Output: 03/29/18 03/29/18 06:59 18:59 Intake Total 1020 Output Total 650 Balance 370 - Medications Medications: Current Medications Acetaminophen (Tylenol 325mg Tab) 650 mg PO Q6H PRN PRN Reason: Fever >100.4 F Last Admin: 03/29/18 10:44 Dose: 650 mg Carvedilol (Coreg) 3.125 mg PO BID [facility] Last Admin: 03/29/18 17:04 Dose: 3.125 mg Famotidine (Pepcid) 20 mg IVP DAILY [facility] Last Admin: 03/29/18 09:26 Dose: 20 mg Furosemide (Lasix) 20 mg IV DAILY [facility] Nicardipine HCl (Cardene Iv Premix) 20 mg in 200 mls @ 50 mls/hr IV .Q4H PRN; Protocol; 5 MG/HR PRN Reason: TITRATE PER MD ORDER Last Titration: 03/25/18 11:00 Dose: Infused Aztreonam (Azactam 1 Gm) 100 mls @ 100 mls/hr IVPB Q8 [facility]EVEN PRN Reason: Protocol Stop: 04/01/18 09:01 Last Admin: 03/29/18 13:16 Dose: 100 mls/hr Vancomycin HCl (Vancomycin 1gm) 1 gm in 250 mls @ 167 mls/hr IVPB Q12H [facility]EVEN PRN Reason: Protocol Last Admin: 03/29/18 08:19 Dose: 167 mls/hr Levetiracetam 1,000 mg/ Sodium (Chloride) 110 mls @ 460 mls/hr IV Q12 [facility] Last Admin: 03/29/18 09:42 Dose: 460 mls/hr Dexmedetomidine HCl (Precedex 400mcg/100ml) 400 mcg in 100 mls @ 3.128 mls/hr IV .Q24H PRN; Protocol; 0.2 MCG/KG/HR PRN Reason: Agitation Last Admin: 03/26/18 23:10 Dose: 0.2 mcg/kg/hr, 3.128 mls/hr Dextrose/Sodium Chloride (Dextrose 5%/0.45% Ns 1000 Ml) 1,000 mls @ 40 mls/hr IV .Q24H [facility] Last Admin: 03/29/18 13:17 Dose: 40 mls/hr Insulin Human Regular (Humulin R Low) 0 units SC Q6H [facility]EVEN PRN Reason: Protocol Last Admin: 03/29/18 15:10 Dose: Not Given Vitamin A (Vitamin A & D Oint Ud Foilpak) 1 ea TOP Q12 PRN PRN Reason: apply to dry lips Last Admin: 03/28/18 09:19 Dose: 1 ea - Labs Labs: 03/29/18 05:00 03/29/18 05:00 PT 20.2 SECONDS (9.4-12.5) H 03/25/18 05:40 INR 1.74 03/25/18 05:40 APTT 31.5 Seconds (25.1-36.5) 03/25/18 05:40 - Constitutional Appears: Non-toxic - Respiratory Exam Respiratory Exam: Clear to Ausculation Bilateral, NORMAL BREATHING PATTERN - Cardiovascular Exam Cardiovascular Exam: REGULAR RHYTHM, +S1, +S2. absent: Murmur - Extremities Exam Extremities Exam: Full ROM, Normal Capillary Refill, Normal Inspection. absent : Joint Swelling, Pedal Edema Assessment and Plan - Assessment and Plan (Free Text) Assessment: 62 yo F with PMH of EtOH abuse, cirrhosis, esophageal varices, thrombocytopenia , spinal stenosis, arthritis, and degenerative joint disease admitted to ICU for status epilepticus 2/ 2.8x2.8cm left occipital lobe hemorrage found on CT which has now stabilized on most recent imaging. Patient now extubated succesffully. Cytopenias likely related to ETOH cirrhosis. Transfuse for plts < 50 Christiano Medellin MD Hematology Service
[2018-03-30] MEDS: Insulin Reg-LOW-Coverage SC SCH ×4 (02:00→20:21)
--- NOTE | 2018-03-30 02:16 | PN ---
DATE: 03/29/2018 SUBJECTIVE: Patient was seen this Friday morning in Intensive Care Unit, Coronary Care, bed 3. She is in bed, a bit more sleepy and groggy this morning; although, the nurse says she was up all night and was just finally getting to sleep. Chest x-ray was done showing some pulmonary congestion. The patient's breathing seems a little bit deeper, although not quite labored. PHYSICAL EXAMINATION: LUNGS: Show good aeration right and left with decreased breath sounds and prolonged expiratory phase, typical of COPD. HEART: Regular, not tachycardic. EXTREMITIES: Show no edema. IMPRESSION: 1. Status post intracranial bleed. 2. Chronic obstructive pulmonary disease. 3. Active tobacco use. 4. Mild volume overload, on chest x-ray. PLAN: We will give a dose of Lasix today and follow. If mental status remains groggy and lethargic, may opt for follow-up CT scan tomorrow. Abilio Bass MD
[2018-03-30] MEDS: Aztreonam 1 Gm in NS 100mL 100 ML IVPB SCH (06:00)
[2018-03-30] MEDS: Dextrose 5%/0.45% NS 1,000 ML IV SCH ×2 (07:59→13:57)
--- NOTE | 2018-03-30 08:19 | CP.CCUPN ---
<Mary Mena - Last Filed: 03/30/18 12:39> CCU Subjective - Physician Review Subjective (Free Text): ICU Progress note for Dr. Zeeshan Mena, PGY 1 Patient seen and examined at bedside this Am.. Patient is arousable, following commands and moving limbs bilaterally. She denies HUNT, CP abdominal pain SOB. No seizure activity observed overnight. She is oriented to person and place but not time. She believes the year is 1983. 03/30/18 08:16 CCU Objective - Vital Signs / Intake & Output Vital Signs (Last 4 hours): Vital Signs Temp Pulse Resp BP Pulse Ox 03/30/18 08:04 97.9 F 82 25 H 03/30/18 08:03 97.9 F 83 29 H 03/30/18 08:02 97.9 F 80 30 H 03/30/18 08:01 97.9 F 82 24 03/30/18 08:00 162/86 H 03/30/18 07:59 97.7 F 83 28 H 03/30/18 07:58 97.5 F L 82 21 03/30/18 07:57 97.2 F L 83 20 03/30/18 07:56 97.3 F L 88 19 03/30/18 07:55 98.1 F 88 27 H 03/30/18 07:54 97.5 F L 98 H 23 03/30/18 07:53 98.4 F 87 30 H 03/30/18 07:52 98.6 F 85 16 03/30/18 07:51 98.6 F 87 27 H 03/30/18 07:50 98.6 F 88 27 H 93 L 03/30/18 07:49 98.1 F 91 H 92 L 03/30/18 07:40 99.5 F 81 23 95 03/30/18 07:39 99.5 F 82 96 03/30/18 07:38 99.5 F 84 97 03/30/18 07:30 99.5 F 78 26 H 96 03/30/18 07:20 99.5 F 76 26 H 96 03/30/18 07:15 99.3 F 81 34 H 147/83 94 L 03/30/18 07:10 99.3 F 82 27 H 88 L 03/30/18 07:02 99.1 F 85 89 L 09/10/18 07:00 99.1 F 88 19 03/30/18 06:50 99.1 F 82 30 H 03/30/18 06:40 99.0 F 85 33 H 03/30/18 06:35 98.8 F 03/30/18 06:34 98.8 F 03/30/18 06:33 98.6 F 03/30/18 06:32 98.4 F 03/30/18 06:31 97.5 F L 03/30/18 06:30 96.8 F L 03/30/18 06:29 96.8 F L 03/30/18 06:28 95.9 F L 03/30/18 06:27 94.6 F L 03/30/18 06:26 99.5 F 03/30/18 06:25 99.7 F H 03/30/18 06:24 99.7 F H 03/30/18 06:23 99.7 F H 03/30/18 06:22 99.7 F H 03/30/18 06:21 99.7 F H 03/30/18 06:20 99.7 F H 96 H 27 H 03/30/18 06:19 99.5 F 96 H 55 H 03/30/18 06:18 99.5 F 88 21 03/30/18 06:17 99.7 F H 93 H 03/30/18 06:16 99.7 F H 85 31 H 03/30/18 06:15 99.7 F H 84 30 H 03/30/18 06:14 99.5 F 89 32 H 03/30/18 06:00 82 Intake and Output (Last 8hrs): Intake & Output 03/29/18 03/30/18 03/30/18 22:59 06:59 14:59 Intake Total 850 Output Total 725 Balance 125 Weight 136 lb Intake: IV 850 Left Hand 850 Output: Urine 725 Urethral (Donahue) 725 Stool 0 - Physical Exam Head: Positive for: Atraumatic, Normocephalic Pupils: Positive for: Pinpoint Extroacular Muscles: Positive for: Other (patient claims to be tracking figner but eyes do not move). Negative for: EOMI Mouth: Positive for: Other (Some oropharyngeal trauma and bleeding 2/2 intubation) Respiratory/Chest: Positive for: Clear to Auscultation, Good Air Exchange, Other. Negative for: Respiratory Distress Cardiovascular: Positive for: Regular Rate and Rhythm, Normal S1, S2 Abdomen: Positive for: Distention (nontympanic), Normal Bowel Sounds. Negative for: Tenderness, Guarding Upper Extremity: Positive for: Normal Inspection, NORMAL PULSES. Negative for: Edema Lower Extremity: Positive for: Normal Inspection, NORMAL PULSES. Negative for: Edema Neurological: Positive for: Motor Func Grossly Intact, Normal Sensory Function, Other (following commands alert awake ) Skin: Positive for: Warm, Dry, Normal Color Psychiatric: Positive for: Alert, Normal Mood, Other. Negative for: Normal Affect (flat affect) - Medications Active Medications: Active Medications Generic Name Dose Route Start Last Admin Trade Name Freq PRN Reason Stop Dose Admin Acetaminophen 650 mg 03/28/18 14:29 03/29/18 17:44 Tylenol 325mg Tab PO 650 mg Q6H PRN Administration Fever >100.4 F Carvedilol 3.125 mg 03/25/18 18:00 03/29/18 17:04 Coreg PO 3.125 mg BID STEVEN Administration Famotidine 20 mg 03/23/18 10:00 03/29/18 09:26 Pepcid IVP 20 mg DAILY STEVEN Administration Furosemide 20 mg 03/30/18 10:00 Lasix IV DAILY STEVEN Nicardipine HCl 20 mg in 200 mls @ 50 mls/hr 03/24/18 07:57 03/25/18 11:00 Cardene Iv Premix IV Infused .Q4H PRN Titration TITRATE PER MD ORDER Protocol 5 MG/HR Aztreonam 100 mls @ 100 mls/hr 03/25/18 09:00 03/30/18 06:00 Azactam 1 Gm IVPB 04/01/18 09:01 100 mls/hr Q8 STEVEN Administration Protocol Vancomycin HCl 1 gm in 250 mls @ 167 mls/hr 03/25/18 09:00 03/29/18 21:59 Vancomycin 1gm IVPB 167 mls/hr Q12H STEVEN Administration Protocol Levetiracetam 1,000 mg/ Sodium 110 mls @ 460 mls/hr 03/26/18 13:42 03/29/18 21:59 Chloride IV 460 mls/hr Q12 STEVEN Administration Dexmedetomidine HCl 400 mcg in 100 mls @ 3.128 mls/hr 03/26/18 16:36 23:10 Precedex 400mcg/100ml IV 0.2 mcg/kg/hr .Q24H PRN 3.128 mls/hr Agitation Administration Protocol 0.2 MCG/KG/HR Dextrose/Sodium Chloride 1,000 mls @ 40 mls/hr 03/29/18 13:02 03/30/18 07:59 Dextrose 5%/0.45% Ns 1000 Ml IV 40 mls/hr .Q24H STEVEN Administration Insulin Human Regular 0 units 03/24/18 14:00 03/30/18 02:00 Humulin R Low SC Not Given Q6H STEVEN Protocol Lactulose 20 gm 03/30/18 10:00 Enulose PO BID STEVEN Vitamin A 1 ea 03/23/18 17:50 03/28/18 09:19 Vitamin A & D Oint Ud Foilpak TOP 1 ea Q12 PRN Administration apply to dry lips - Patient Studies Lab Studies: Microbiology Studies 03/25/18 11:15 Blood Culture - Preliminary Blood NO GROWTH AFTER 4 DAYS 03/25/18 10:45 Blood Culture - Preliminary Blood NO GROWTH AFTER 4 DAYS 03/25/18 22:30 Urine Culture - Preliminary Urine,[place] Salmonella Group C Lab Studies 03/30/18 03/29/18 03/29/18 Range/Units 04:10 14:37 07:42 POC Glucose (mg/dL) 83 108 (65-110) mg/dL Ammonia 45 H (9-33) umol/L Laboratory Results - last 24 hr 03/29/18 03/29/18 03/30/18 07:42 14:37 04:10 POC Glucose (mg/dL) 108 83 Ammonia 45 H Fingerstick Blood Sugar Results: 97 Review of Systems - Review of Systems All systems: reviewed and no additional remarkable complaints except Review of Systems: as per HPI Critical Care Progress Note - Extremities/Vascular Does the Patient have a Central Venous Catheter?: No Does the Patient have a Donahue Catheter?: Yes Does the Patient need a Donahue Catheter?: Yes Catheter Insertion Criteria: Need for accurate measurement of output in critically ill patient - Prophylaxis GI Prophylaxis GI: PPI - Prophylaxis DVT Prophylaxis DVT: SCDs - Nutrition Nutrition: Nutrition Category Date Time Status Pureed [Dysphagia/Modified Consistency Diet] [DIET] Diets 03/29/18 Lunch Ordered Assessment/Plan - Assessment and Plan (Free Text) Assessment: 62 year old female with PMH cirrhosis, esophageal varices s/p banding 2014, spinal stenosis, arthritis, alcohol abuse, presented to [facility] [place] ED unresponsive after a seizure at home, requiring intubation in ED. Found to have 2x2 CM L occipital hemorrhagic stroke which progressed to 5x5 9 AM. Extubated this Am after meeting criteria, no fevers overnight, no longer sedated, overall neuro status improving, oriented only to person and place. Cleared for transfer out of ICU today. Plan: Neuro : - alert oriented to person and place, deficits in EOM, pupillary constriction consistent with prior exams - Will keep BP goals: SBP 120-140/80-90. - C/w keppra 500 BID - Neurosurgery on board. No acute surgical intervention. Keep HOB>30 degrees. - Neurology Following - Seizure precautions, neuro checks. - 03/21 CT head showed hemorrhage within the medial left occipital lobe measuring approximately 2.8 x 2.8 cm with associated edema/necrosis. This finding exerts mass effect on the atrium of the ventricles anterior laterally. Location of this hemorrhage is atypical for hypertensive hemorrhage. Considerations include atypical hypertensive hemorrhage, underlying vascular lesion, hemorrhagic tumor is considered less likely. - 03/22 CT Head showed increasing left occipital lobe hemorrhage 5.3x3.3cm from 2.2x2.2cm. Intraventricular extension of hemorrhage involving left lateral and 3rd ventricles. Increasing dilatation of the left lateral ventricle. - 03/23 CTA no AVM, no aneurysm, no stenosis or blockage, hemorrhage stable in size - 03/24 CT head no change, stable hemorrhage - 03/25 MRI shows stable hemorrhage no underlying tumor CV: - normotensive - Keep BP goal 120-140/80-90. - Continue to monitor. Pulm: - Maintain O2 sat>92-94%, on 5 L NC can wean as tolerated - Continue with HOB elevation> 35 degrees, aspiration precautions. - ABG 7.49/CO2 28/O2 69/HCO2 21.3 GI: - ammonia 45 - patient receiving lactulose - pureed diet per swallow eval - GI following Renal : - BUN/Cr 11/0.4 - UOP appropriate - Replace lytes, maintain euvolemia. - Continue to monitor. ID: - afebrile overnight, [email or web address] - Ucx and Bcx negative to date - c/w abx per ID recs - ID Following - all previous cultures negative to date - CXR improving Endo: Maintain euglycemia. Heme: - Patient historically has had thrombocytopenia - PLT 105 - Hematology consulted for thrombocytopenia - Hgb 10.3 - Total bili 4.9 DVT ppx - SCDs in setting of brain hemorrhage GI ppx - Protonix - Date & Time Date: 03/30/18 <Samantha Byers - Last Filed: 03/30/18 14:53> CCU Objective - Vital Signs / Intake & Output Vital Signs (Last 4 hours): Vital Signs Temp Pulse 03/30/18 13:49 100.4 F H 03/30/18 11:55 90 Intake and Output (Last 8hrs): Intake & Output 03/29/18 03/30/18 03/30/18 22:59 06:59 14:59 Intake Total 850 Output Total 725 Balance 125 Weight 136 lb Intake: IV 850 Left Hand 850 Output: Urine 725 Urethral (Donahue) 725 Stool 0 - Medications Active Medications: Active Medications Generic Name Dose Route Start Last Admin Trade Name Freq PRN Reason Stop Dose Admin Acetaminophen 650 mg 03/28/18 14:29 03/30/18 13:49 Tylenol 325mg Tab PO 650 mg Q6H PRN Administration Fever >100.4 F Carvedilol 3.125 mg 03/25/18 18:00 03/30/18 09:24 Coreg PO 3.125 mg BID STEVEN Administration Famotidine 20 mg 03/31/18 10:00 Pepcid PO DAILY STEVEN Furosemide 20 mg 03/30/18 10:00 03/30/18 09:24 Lasix IV 20 mg DAILY STEVEN Administration Levetiracetam 1,000 mg/ Sodium 110 mls @ 460 mls/hr 03/26/18 13:42 03/30/18 09:27 Chloride IV 460 mls/hr Q12 STEVEN Administration Dextrose/Sodium Chloride 1,000 mls @ 40 mls/hr 03/29/18 13:02 03/30/18 13:57 Dextrose 5%/0.45% Ns 1000 Ml IV Not Given .Q24H STEVEN Potassium Phosphate 30 mmole/ 260 mls @ 42.5 mls/hr 03/30/18 12:00 03/30/18 12:11 Sodium Chloride IVPB 03/30/18 18:07 42.5 mls/hr ONCE ONE Administration Insulin Human Regular 0 units 03/24/18 14:00 03/30/18 09:18 Humulin R Low SC Not Given Q6H [facility] Protocol Lactulose 20 gm 03/30/18 10:00 03/30/18 09:24 Enulose PO 20 gm BID STEVEN Administration Spironolactone 100 mg 03/30/18 10:00 03/30/18 09:27 Aldactone PO 100 mg DAILY STEVEN Administration Trimethoprim/Sulfamethoxazole 1 tab 03/30/18 18:00 Bactrim Ds Tab PO BID [facility] Protocol Vitamin A 1 ea 03/23/18 17:50 03/30/18 09:24 Vitamin A & D Oint Ud Foilpak TOP 1 ea Q12 PRN Administration apply to dry lips - Patient Studies Lab Studies: Microbiology Studies 03/25/18 11:15 Blood Culture - Final Blood NO GROWTH AFTER 5 DAYS Gram Stain - Final TEST NOT PERFORMED 03/25/18 10:45 Blood Culture - Final Blood NO GROWTH AFTER 5 DAYS Gram Stain - Final TEST NOT PERFORMED 03/25/18 22:30 Urine Culture - Final Urine,Donahue Salmonella Group C Lab Studies 03/30/18 03/30/18 03/30/18 Range/Units 08:33 08:30 08:30 WBC 10.3 D (4.5-11.0) 10^3/ul RBC 3.42 L (3.5-6.1) 10^6/uL Hgb 10.8 L (12.0-16.0) g/dL Hct 31.6 L (36.0-48.0) % MCV 92.4 (80.0-105.0) fl MCH 31.6 (25.0-35.0) pg MCHC 34.2 (31.0-37.0) g/dl RDW 15.9 H (11.5-14.5) % Plt Count 63 L (120.0-450.0) 10^3/uL MPV 9.8 (7.0-11.0) fl Gran % 77.8 H (50.0-68.0) % Lymph % (Auto) 6.7 L (22.0-35.0) % [place] % (Auto) 13.3 H (1.0-6.0) % Eos % (Auto) 1.8 (1.5-5.0) % Baso % (Auto) 0.4 (0.0-3.0) % Gran # 7.99 H (1.4-6.5) Lymph # (Auto) 0.7 L (1.2-3.4) [place] # (Auto) 1.4 H (0.1-0.6) Eos # (Auto) 0.2 (0.0-0.7) Baso # (Auto) 0.04 (0.0-2.0) K/mm3 pCO2 28 L (35-45) mm/Hg pO2 69.0 L (80-100) mm/Hg HCO3 21.3 (21-28) mmol/L ABG pH 7.49 H (7.35-7.45) ABG Total CO2 22.2 (22-28) mmol.L ABG O2 Saturation 97.7 (95-98) % ABG O2 Content 14.0 L (15-23) ML/dl ABG Base Excess -1.2 (-2.0-3.0) mmol/L ABG Hemoglobin 10.5 L (11.7-17.4) g/dL ABG Carboxyhemoglobin 2.7 H (0.5-1.5) % POC ABG HHb (Measured) 2.2 (0-5) % ABG Methemoglobin 1.0 (0.0-3.0) % ABG O2 Capacity 14.3 L (16-24) mL/dl Hgb O2 Saturation 94.1 L (95.0-98.0) % FiO2 40.0 % Sodium 140 (132-148) mmol/L Potassium 3.1 L (3.6-5.0) mmol/L Chloride 111 H (98-107) mmol/L Carbon Dioxide 22 (21-33) mmol/L Anion Gap 10 (10-20) BUN 11 (7-21) mg/dL Creatinine 0.4 L (0.7-1.2) mg/dl Est GFR ( Amer) > 60 Est GFR (Non-Af Amer) > 60 POC Glucose (mg/dL) (65-110) mg/dL Random Glucose 105 (70-110) mg/dL Calcium 8.6 (8.4-10.5) mg/dL Phosphorus 2.3 L (2.5-4.5) mg/dL Magnesium 1.8 (1.7-2.2) mg/dL Total Bilirubin 4.9 H (0.2-1.3) mg/dL AST 53 H (14-36) U/L ALT 28 (7-56) U/L Alkaline Phosphatase 126 (38-126) U/L Ammonia (9-33) umol/L Total Protein 7.1 (5.8-8.3) g/dL Albumin 3.0 (3.0-4.8) g/dL Globulin 4.1 gm/dL Albumin/Globulin Ratio 0.7 L (1.1-1.8) 03/30/18 03/30/18 03/30/18 Range/Units 07:41 04:10 02:05 WBC (4.5-11.0) 10^3/ul RBC (3.5-6.1) 10^6/uL Hgb (12.0-16.0) g/dL Hct (36.0-48.0) % MCV (80.0-105.0) fl MCH (25.0-35.0) pg MCHC (31.0-37.0) g/dl RDW (11.5-14.5) % Plt Count (120.0-450.0) 10^3/uL MPV (7.0-11.0) fl Gran % (50.0-68.0) % Lymph % (Auto) (22.0-35.0) % [place] % (Auto) (1.0-6.0) % Eos % (Auto) (1.5-5.0) % Baso % (Auto) (0.0-3.0) % Gran # (1.4-6.5) Lymph # (Auto) (1.2-3.4) [place] # (Auto) (0.1-0.6) Eos # (Auto) (0.0-0.7) Baso # (Auto) (0.0-2.0) K/mm3 pCO2 (35-45) mm/Hg pO2 (80-100) mm/Hg HCO3 (21-28) mmol/L ABG pH (7.35-7.45) ABG Total CO2 (22-28) mmol.L ABG O2 Saturation (95-98) % ABG O2 Content (15-23) ML/dl ABG Base Excess (-2.0-3.0) mmol/L ABG Hemoglobin (11.7-17.4) g/dL ABG Carboxyhemoglobin (0.5-1.5) % POC ABG HHb (Measured) (0-5) % ABG Methemoglobin (0.0-3.0) % ABG O2 Capacity (16-24) mL/dl Hgb O2 Saturation (95.0-98.0) % FiO2 % Sodium (132-148) mmol/L Potassium (3.6-5.0) mmol/L Chloride (98-107) mmol/L Carbon Dioxide (21-33) mmol/L Anion Gap (10-20) BUN (7-21) mg/dL Creatinine (0.7-1.2) mg/dl Est GFR ( Amer) Est GFR (Non-Af Amer) POC Glucose (mg/dL) 107 97 (65-110) mg/dL Random Glucose (70-110) mg/dL Calcium (8.4-10.5) mg/dL Phosphorus (2.5-4.5) mg/dL Magnesium (1.7-2.2) mg/dL Total Bilirubin (0.2-1.3) mg/dL AST (14-36) U/L ALT (7-56) U/L Alkaline Phosphatase (38-126) U/L Ammonia 45 H (9-33) umol/L Total Protein (5.8-8.3) g/dL Albumin (3.0-4.8) g/dL Globulin gm/dL Albumin/Globulin Ratio (1.1-1.8) 03/29/18 Range/Units 19:24 WBC (4.5-11.0) 10^3/ul RBC (3.5-6.1) 10^6/uL Hgb (12.0-16.0) g/dL Hct (36.0-48.0) % MCV (80.0-105.0) fl MCH (25.0-35.0) pg MCHC (31.0-37.0) g/dl RDW (11.5-14.5) % Plt Count (120.0-450.0) 10^3/uL MPV (7.0-11.0) fl Gran % (50.0-68.0) % Lymph % (Auto) (22.0-35.0) % [place] % (Auto) (1.0-6.0) % Eos % (Auto) (1.5-5.0) % Baso % (Auto) (0.0-3.0) % Gran # (1.4-6.5) Lymph # (Auto) (1.2-3.4) [place] # (Auto) (0.1-0.6) Eos # (Auto) (0.0-0.7) Baso # (Auto) (0.0-2.0) K/mm3 pCO2 (35-45) mm/Hg pO2 (80-100) mm/Hg HCO3 (21-28) mmol/L ABG pH (7.35-7.45) ABG Total CO2 (22-28) mmol.L ABG O2 Saturation (95-98) % ABG O2 Content (15-23) ML/dl ABG Base Excess (-2.0-3.0) mmol/L ABG Hemoglobin (11.7-17.4) g/dL ABG Carboxyhemoglobin (0.5-1.5) % POC ABG HHb (Measured) (0-5) % ABG Methemoglobin (0.0-3.0) % ABG O2 Capacity (16-24) mL/dl Hgb O2 Saturation (95.0-98.0) % FiO2 % Sodium (132-148) mmol/L Potassium (3.6-5.0) mmol/L Chloride (98-107) mmol/L Carbon Dioxide (21-33) mmol/L Anion Gap (10-20) BUN (7-21) mg/dL Creatinine (0.7-1.2) mg/dl Est GFR ( Amer) Est GFR (Non-Af Amer) POC Glucose (mg/dL) 102 (65-110) mg/dL Random Glucose (70-110) mg/dL Calcium (8.4-10.5) mg/dL Phosphorus (2.5-4.5) mg/dL Magnesium (1.7-2.2) mg/dL Total Bilirubin (0.2-1.3) mg/dL AST (14-36) U/L ALT (7-56) U/L Alkaline Phosphatase (38-126) U/L Ammonia (9-33) umol/L Total Protein (5.8-8.3) g/dL Albumin (3.0-4.8) g/dL Globulin gm/dL Albumin/Globulin Ratio (1.1-1.8) Laboratory Results - last 24 hr 03/29/18 03/30/18 03/30/18 19:24 02:05 04:10 WBC RBC Hgb Hct MCV MCH MCHC RDW Plt Count MPV Gran % Lymph % (Auto) [place] % (Auto) Eos % (Auto) Baso % (Auto) Gran # Lymph # (Auto) [place] # (Auto) Eos # (Auto) Baso # (Auto) pCO2 pO2 HCO3 ABG pH ABG Total CO2 ABG O2 Saturation ABG O2 Content ABG Base Excess ABG Hemoglobin ABG Carboxyhemoglobin POC ABG HHb (Measured) ABG Methemoglobin ABG O2 Capacity Hgb O2 Saturation FiO2 Sodium Potassium Chloride Carbon Dioxide Anion Gap BUN Creatinine Est GFR ( Amer) Est GFR (Non-Af Amer) POC Glucose (mg/dL) 102 97 Random Glucose Calcium Phosphorus Magnesium Total Bilirubin AST ALT Alkaline Phosphatase Ammonia 45 H Total Protein Albumin Globulin Albumin/Globulin Ratio 03/30/18 03/30/18 03/30/18 07:41 08:30 08:30 WBC 10.3 D RBC 3.42 L Hgb 10.8 L Hct 31.6 L MCV 92.4 MCH 31.6 MCHC 34.2 RDW 15.9 H Plt Count 63 L MPV 9.8 Gran % 77.8 H Lymph % (Auto) 6.7 L [place] % (Auto) 13.3 H Eos % (Auto) 1.8 Baso % (Auto) 0.4 Gran # 7.99 H Lymph # (Auto) 0.7 L [place] # (Auto) 1.4 H Eos # (Auto) 0.2 Baso # (Auto) 0.04 pCO2 pO2 HCO3 ABG pH ABG Total CO2 ABG O2 Saturation ABG O2 Content ABG Base Excess ABG Hemoglobin ABG Carboxyhemoglobin POC ABG HHb (Measured) ABG Methemoglobin ABG O2 Capacity Hgb O2 Saturation FiO2 Sodium 140 Potassium 3.1 L Chloride 111 H Carbon Dioxide 22 Anion Gap 10 BUN 11 Creatinine 0.4 L Est GFR ( Amer) > 60 Est GFR (Non-Af Amer) > 60 POC Glucose (mg/dL) 107 Random Glucose 105 Calcium 8.6 Phosphorus 2.3 L Magnesium 1.8 Total Bilirubin 4.9 H AST 53 H ALT 28 Alkaline Phosphatase 126 Ammonia Total Protein 7.1 Albumin 3.0 Globulin 4.1 Albumin/Globulin Ratio 0.7 L 03/30/18 08:33 WBC RBC Hgb Hct MCV MCH MCHC RDW Plt Count MPV Gran % Lymph % (Auto) [place] % (Auto) Eos % (Auto) Baso % (Auto) Gran # Lymph # (Auto) [place] # (Auto) Eos # (Auto) Baso # (Auto) pCO2 28 L pO2 69.0 L HCO3 21.3 ABG pH 7.49 H ABG Total CO2 22.2 ABG O2 Saturation 97.7 ABG O2 Content 14.0 L ABG Base Excess -1.2 ABG Hemoglobin 10.5 L ABG Carboxyhemoglobin 2.7 H POC ABG HHb (Measured) 2.2 ABG Methemoglobin 1.0 ABG O2 Capacity 14.3 L Hgb O2 Saturation 94.1 L FiO2 40.0 Sodium Potassium Chloride Carbon Dioxide Anion Gap BUN Creatinine Est GFR ( Amer) Est GFR (Non-Af Amer) POC Glucose (mg/dL) Random Glucose Calcium Phosphorus Magnesium Total Bilirubin AST ALT Alkaline Phosphatase Ammonia Total Protein Albumin Globulin Albumin/Globulin Ratio Critical Care Progress Note - Nutrition Nutrition: Nutrition Category Date Time Status Pureed [Dysphagia/Modified Consistency Diet] [DIET] Diets 03/29/18 Lunch Ordered Addendum Addendum: 03/30/18 14:52 ICU Attending Addendum: Patient seen and examined. Case reviewed on round with housestaff. Agree with resident note above with the following additions/exceptions: 62F with EtOH abuse, cirrhosis, esophageal varices (s/p banding 2014), thrombocytopenia admitted with seizures, intracranial hemorrhage now intubated. CT head showed left occipital lobe hemorrhage, 2.8x2.[address] initally showed increase in L occip hemorrhage as plat were dropping. Plat tranfused, MRI shows stable acute ICH, no mass seen. She was intubated on admission, extubated 3 days ago. Has cognitive dysfunctions currently, f/u Neuro recs cont keppra for seizures Has salmonella UTI which is new, may suggest structural abnormalities of the urinary tract. ID rec scan system which i am infavor of. Tx with bactrim Plat cont to stay low likely from cirrohsis; GI and Hem on board. Plat goal > 50k INR may chronically be elevated as a result of liver dysfuction currently hemodynamically stable ok for transfer out of ICU Rest of care as noted above. Samantha Byers MD [employer] Critical care time : 35 mins
[2018-03-30 08:40] LABS: BASO # 0.04 K/mm3 (0.0-2.0); BASO % 0.4 % (0.0-3.0); EOS # 0.2 (0.0-0.7); EOS % 1.8 % (1.5-5.0); GRAN # 7.99 (1.4-6.5); GRAN % 77.8 % (50.0-68.0); HEMOGLOBIN 10.8 g/dL (12.0-16.0); LYMPH # 0.7 (1.2-3.4); LYMPH % 6.7 % (22.0-35.0); MEAN CELL VOLUME 92.4 fl (80.0-105.0); MEAN CORPUSCULAR HEMOGLOBIN 31.6 pg (25.0-35.0); MEAN CORPUSCULAR HGB CONC 34.2 g/dl (31.0-37.0); MEAN PLATELET VOLUME 9.8 fl (7.0-11.0); MONO # 1.4 (0.1-0.6); MONO % 13.3 % (1.0-6.0); RBC 3.42 10^6/uL (3.5-6.1); RED CELL DISTRIBUTION WIDTH 15.9 % (11.5-14.5); WHITE BLOOD COUNT 10.3 10^3/ul (4.5-11.0)
[2018-03-30 08:53] LABS: ALB/GLOB RATIO 0.7 (1.1-1.8); ALT/SGPT 28 U/L (7-56); AST/SGOT 53 U/L (14-36); BLOOD UREA NITROGEN 11 mg/dL (7-21); CALCIUM 8.6 mg/dL (8.4-10.5); GFR NON-AFRICAN AMERICAN > 60
[2018-03-30] MEDS ORDERED: Potassium Phosphate 3 mmol/ml Inj IV ONE ×2 (09:01→11:36)
[2018-03-30] MEDS ORDERED: Potassium Phosphate 30 MMOLE in Sodium Chloride 0.9% 250 ML IVPB ONE ×2 (09:15→12:00)
[2018-03-30] MEDS: Vitamins A & D Oint UD Foilpak TOP PRN (09:24)
[2018-03-30] MEDS: levETIRAcetam 1,000 MG in Sodium Chloride 0.9% 100 ML IV SCH ×2 (09:27→21:34)
[2018-03-30 09:35] LABS: ARTERIAL BLOOD GAS HCO3 21.3 mmol/L (21-28); ARTERIAL BLOOD GAS HEMOGLOBIN 10.5 g/dL (11.7-17.4); ARTERIAL BLOOD GAS O2 CAPACITY 14.3 mL/dl (16-24); ARTERIAL BLOOD GAS O2 SAT 97.7 % (95-98); ARTERIAL BLOOD GAS PCO2 28 mm/Hg (35-45); ARTERIAL BLOOD GAS PH 7.49 (7.35-7.45); ARTERIAL BLOOD GAS TCO2 22.2 mmol.L (22-28)
[2018-03-30] MEDS: Vancomycin 1gm in NS 250ml 1 GM/250 ML BAG IVPB SCH (09:46)
--- NOTE | 2018-03-30 11:31 | CP.PCM.PN ---
<Mohamud Freeman - Last Filed: 03/30/18 11:26> Subjective - Date & Time of Evaluation Date of Evaluation: 03/30/18 Time of Evaluation: 11:26 - Subjective Subjective: GI fellow [id number] Patient is sitting up in bed with food in front of her. She has not eaten much, but she states she is hungry. She denies n/v/d/f. Patient is not fully oriented "1983" "April", believes president is "pushy [place]" Objective - Vital Signs/Intake and Output Vital Signs (last 24 hours): Temp Pulse Resp BP Pulse Ox 97.9 F 85 25 H 139/77 93 L 03/30/18 08:04 03/30/18 09:24 03/30/18 08:04 03/30/18 09:24 03/30/18 07:50 Intake and Output: 03/30/18 03/30/18 06:59 18:59 Intake Total 850 Output Total 725 Balance 125 - Medications Medications: Current Medications Acetaminophen (Tylenol 325mg Tab) 650 mg PO Q6H PRN PRN Reason: Fever >100.4 F Last Admin: 03/29/18 17:44 Dose: 650 mg Carvedilol (Coreg) 3.125 mg PO BID [facility] Last Admin: 03/30/18 09:24 Dose: 3.125 mg Famotidine (Pepcid) 20 mg IVP DAILY [facility] Last Admin: 03/30/18 09:23 Dose: 20 mg Furosemide (Lasix) 20 mg IV DAILY [facility] Last Admin: 03/30/18 09:24 Dose: 20 mg Levetiracetam 1,000 mg/ Sodium (Chloride) 110 mls @ 460 mls/hr IV Q12 [facility] Last Admin: 03/30/18 09:27 Dose: 460 mls/hr Dextrose/Sodium Chloride (Dextrose 5%/0.45% Ns 1000 Ml) 1,000 mls @ 40 mls/hr IV .Q24H [facility] Last Admin: 03/30/18 07:59 Dose: 40 mls/hr Insulin Human Regular (Humulin R Low) 0 units SC Q6H [facility] PRN Reason: Protocol Last Admin: 03/30/18 09:18 Dose: Not Given Lactulose (Enulose) 20 gm PO BID [facility] Last Admin: 03/30/18 09:24 Dose: 20 gm Spironolactone (Aldactone) 100 mg PO DAILY [facility] Last Admin: 03/30/18 09:27 Dose: 100 mg Vitamin A (Vitamin A & D Oint Ud Foilpak) 1 ea TOP Q12 PRN PRN Reason: apply to dry lips Last Admin: 03/30/18 09:24 Dose: 1 ea - Labs Labs: 03/30/18 08:30 03/30/18 08:30 PT 20.2 SECONDS (9.4-12.5) H 03/25/18 05:40 INR 1.74 03/25/18 05:40 APTT 31.5 Seconds (25.1-36.5) 03/25/18 05:40 - Constitutional Appears: Non-toxic - Head Exam Head Exam: NORMAL INSPECTION - Eye Exam Eye Exam: Normal appearance - Respiratory Exam Respiratory Exam: Clear to Ausculation Bilateral, NORMAL BREATHING PATTERN - Cardiovascular Exam Cardiovascular Exam: REGULAR RHYTHM, +S1, +S2 - GI/Abdominal Exam GI & Abdominal Exam: Soft, Normal Bowel Sounds. absent: Tenderness - Extremities Exam Extremities Exam: Normal Inspection - Psychiatric Exam Psychiatric exam: Normal Affect, Normal Mood - Skin Skin Exam: Dry, Normal Color Assessment and Plan - Assessment and Plan (Free Text) Assessment: 62F with hx variceal bands presenting with AMS, seizures and found to have ICH and some herniation, now intubated. #Decompensated etoh cirrhosis - MELD 15 on admission. #E. Varices s/p bands 2014 #Colonic AVMs #Pancytopenia #Seizure disorder #Acute ICH #Bacturia - Salmonella PLAN: -Replace PLT per ICU -Ammonia level elevated 45. Restart lactulose. Goal BMs 2 per day. Titrated as needed. -Carvedilol 3.25mg BID for esophageal varices. Titrate to HR and BP. -Continue lasix IV 20 daily and aldactone 100mg daily -Defer salmonella treatment to ID/ICU -PPI IV daily. -Puree diet -No obvious need for PEG tube at this point. <Jean-Claude Vernon V - Last Filed: 03/30/18 23:49> Objective - Vital Signs/Intake and Output Vital Signs (last 24 hours): Temp Pulse Resp BP Pulse Ox 95.7 F L 71 24 132/79 96 03/30/18 18:55 03/30/18 20:10 03/30/18 20:10 03/30/18 20:00 03/30/18 20:10 Intake and Output: 03/30/18 03/31/18 18:59 06:59 Intake Total 1270 Output Total 1101 Balance 169 - Medications Medications: Current Medications Acetaminophen (Tylenol 325mg Tab) 650 mg PO Q6H PRN PRN Reason: Fever >100.4 F Last Admin: 03/30/18 13:49 Dose: 650 mg Carvedilol (Coreg) 3.125 mg PO BID [facility] Last Admin: 03/30/18 17:49 Dose: 3.125 mg Famotidine (Pepcid) 20 mg PO DAILY [facility] Furosemide (Lasix) 20 mg IV DAILY [facility] Last Admin: 03/30/18 09:24 Dose: 20 mg Levetiracetam 1,000 mg/ Sodium (Chloride) 110 mls @ 460 mls/hr IV Q12 [facility] Last Admin: 03/30/18 21:34 Dose: 460 mls/hr Potassium Chloride 30 meq/ (Dextrose/Sodium Chloride) 1,015 mls @ 40 mls/hr IV .Q24H [facility] Last Admin: 03/30/18 17:47 Dose: 40 mls/hr Insulin Human Regular (Humulin R Low) 0 units SC Q6H [facility] PRN Reason: Protocol Last Admin: 03/30/18 20:21 Dose: Not Given Lactulose (Enulose) 20 gm PO BID [facility] Last Admin: 03/30/18 17:49 Dose: 20 gm Spironolactone (Aldactone) 100 mg PO DAILY [facility] Last Admin: 03/30/18 09:27 Dose: 100 mg Trimethoprim/Sulfamethoxazole (Bactrim Ds Tab) 1 tab PO BID [facility] PRN Reason: Protocol Last Admin: 03/30/18 17:50 Dose: 1 tab Vitamin A (Vitamin A & D Oint Ud Foilpak) 1 ea TOP Q12 PRN PRN Reason: apply to dry lips Last Admin: 03/30/18 09:24 Dose: 1 ea - Labs Labs: 03/30/18 08:30 03/30/18 08:30 PT 20.2 SECONDS (9.4-12.5) H 03/25/18 05:40 INR 1.74 03/25/18 05:40 APTT 31.5 Seconds (25.1-36.5) 03/25/18 05:40 Attending/Attestation - Attestation I have personally seen and examined this patient.: Yes I have fully participated in the care of the patient.: Yes I have reviewed all pertinent clinical information, including history, physical exam and plan: Yes Notes (Text): This is an addendum to GI followup report dictated by the GI fellow. The patient was seen and evaluated earlier. Medical records, lab studies, imagings were reviewed. Last 24 hours events reviewed. Agreed with the above treatment plan as outlined in fellow's 's notes with the addition of the following Follow-up ammonia level Titrate the dose of lactulose based on bowel movements Speech therapy evaluation noted Recommended soft diet but patient is presently on pured diet in view of fluctuating mental status 03/30/18 23:46
--- NOTE | 2018-03-30 11:44 | CP.PCM.PN ---
Subjective - Date & Time of Evaluation Date of Evaluation: 03/30/18 Time of Evaluation: 11:41 - Subjective Subjective: Heme/Onc Progress Note for Dr. Medellin -- Nate Russo DO PGY2 Patient seen and examined at bedside. No acute overnight events. Patient is awake, fully conversant, and answers questioning appropriately. Patient denied CP, SOB, n/v/d, abdominal pain, fever, chills, HUNT, or dizziness. Objective - Vital Signs/Intake and Output Vital Signs (last 24 hours): Temp Pulse Resp BP Pulse Ox 97.9 F 85 25 H 139/77 93 L 03/30/18 08:04 03/30/18 09:24 03/30/18 08:04 03/30/18 09:24 03/30/18 07:50 Intake and Output: 03/30/18 03/30/18 06:59 18:59 Intake Total 850 Output Total 725 Balance 125 - Medications Medications: Current Medications Acetaminophen (Tylenol 325mg Tab) 650 mg PO Q6H PRN PRN Reason: Fever >100.4 F Last Admin: 03/29/18 17:44 Dose: 650 mg Carvedilol (Coreg) 3.125 mg PO BID [facility] Last Admin: 03/30/18 09:24 Dose: 3.125 mg Famotidine (Pepcid) 20 mg IVP DAILY [facility] Last Admin: 03/30/18 09:23 Dose: 20 mg Furosemide (Lasix) 20 mg IV DAILY [facility] Last Admin: 03/30/18 09:24 Dose: 20 mg Levetiracetam 1,000 mg/ Sodium (Chloride) 110 mls @ 460 mls/hr IV Q12 [facility] Last Admin: 03/30/18 09:27 Dose: 460 mls/hr Dextrose/Sodium Chloride (Dextrose 5%/0.45% Ns 1000 Ml) 1,000 mls @ 40 mls/hr IV .Q24H [facility] Last Admin: 03/30/18 07:59 Dose: 40 mls/hr Potassium Phosphate 30 mmole/ (Sodium Chloride) 260 mls @ 42.5 mls/hr IVPB ONCE ONE Stop: 03/30/18 18:07 Insulin Human Regular (Humulin R Low) 0 units SC Q6H [facility] PRN Reason: Protocol Last Admin: 03/30/18 09:18 Dose: Not Given Lactulose (Enulose) 20 gm PO BID [facility] Last Admin: 03/30/18 09:24 Dose: 20 gm Spironolactone (Aldactone) 100 mg PO DAILY [facility] Last Admin: 03/30/18 09:27 Dose: 100 mg Vitamin A (Vitamin A & D Oint Ud Foilpak) 1 ea TOP Q12 PRN PRN Reason: apply to dry lips Last Admin: 03/30/18 09:24 Dose: 1 ea - Labs Labs: 03/30/18 08:30 03/30/18 08:30 PT 20.2 SECONDS (9.4-12.5) H 03/25/18 05:40 INR 1.74 03/25/18 05:40 APTT 31.5 Seconds (25.1-36.5) 03/25/18 05:40 - Constitutional Appears: No Acute Distress - Head Exam Head Exam: NORMAL INSPECTION - Eye Exam Eye Exam: Normal appearance - ENT Exam ENT Exam: Mucous Membranes Moist - Neck Exam Neck Exam: Normal Inspection - Respiratory Exam Respiratory Exam: Clear to Ausculation Bilateral. absent: Rales, Rhonchi, Wheezes - Cardiovascular Exam Cardiovascular Exam: RRR, +S1, +S2. absent: Gallop, Rubs, Murmur - GI/Abdominal Exam GI & Abdominal Exam: Soft. absent: Distended, Guarding, Tenderness, Rebound - Extremities Exam Extremities Exam: Normal Inspection - Neurological Exam Neurological Exam: Alert, Awake - Psychiatric Exam Psychiatric exam: Normal Affect, Normal Mood - Skin Skin Exam: Dry, Intact, Normal Color, Warm Assessment and Plan - Assessment and Plan (Free Text) Assessment: 62 yo F with PMH of EtOH abuse, cirrhosis, esophageal varices, thrombocytopenia , spinal stenosis, arthritis, and degenerative joint disease admitted to ICU for status epilepticus 2/2 2.8x2.8cm left occipital lobe hemorrage found on CT with subsequent expansion on follow up CT (5.3x3.3cm), however MRI brain shows stable ICH. Heme/onc consulted due to thrombocytopenia, which appears to be chronic likely 2/2 cirrhosis. Plan: - Transfuse to maintain platelets > 50 - Transfused 9 units of platelets and 4 FFP overall - Platelet count today 63, cont to monitor - Anti-platelet antibodies, BECKY negative - Further management per Neuro, ICU, and primary - Will continue to monitor Case reviewed and discussed with attending. Nate Russo, DO PGY2
--- NOTE | 2018-03-30 12:03 | CP.PCM.PN ---
Subjective - Date & Time of Evaluation Date of Evaluation: 03/30/18 Time of Evaluation: 09:25 - Subjective Subjective: Comfortable in bed, no fevers, not in distress. Still somwehat lethargic but arousable and answers questions. Objective - Vital Signs/Intake and Output Vital Signs (last 24 hours): Temp Pulse Resp BP Pulse Ox 98.6 F 84 16 153/83 H 93 L 03/29/18 04:40 03/29/18 06:00 03/29/18 04:40 03/29/18 04:20 03/29/18 04:40 Intake and Output: 03/29/18 03/29/18 06:59 18:59 Intake Total 1020 Output Total 650 Balance 370 - Medications Medications: Current Medications Acetaminophen (Tylenol 325mg Tab) 650 mg PO Q6H PRN PRN Reason: Fever >100.4 F Last Admin: 03/28/18 21:59 Dose: 650 mg Carvedilol (Coreg) 3.125 mg PO BID [facility] Last Admin: 03/28/18 17:23 Dose: 3.125 mg Famotidine (Pepcid) 20 mg IVP DAILY [facility] Last Admin: 03/28/18 09:18 Dose: 20 mg Nicardipine HCl (Cardene Iv Premix) 20 mg in 200 mls @ 50 mls/hr IV .Q4H PRN; Protocol; 5 MG/HR PRN Reason: TITRATE PER MD ORDER Last Titration: 03/25/18 11:00 Dose: Infused Aztreonam (Azactam 1 Gm) 100 mls @ 100 mls/hr IVPB Q8 [facility] PRN Reason: Protocol Stop: 04/01/18 09:01 Last Admin: 03/29/18 06:44 Dose: 100 mls/hr Vancomycin HCl (Vancomycin 1gm) 1 gm in 250 mls @ 167 mls/hr IVPB Q12H [facility] PRN Reason: Protocol Last Admin: 03/29/18 08:19 Dose: 167 mls/hr Levetiracetam 1,000 mg/ Sodium (Chloride) 110 mls @ 460 mls/hr IV Q12 [facility] Last Admin: 03/28/18 21:51 Dose: 460 mls/hr Dexmedetomidine HCl (Precedex 400mcg/100ml) 400 mcg in 100 mls @ 3.128 mls/hr IV .Q24H PRN; Protocol; 0.2 MCG/KG/HR PRN Reason: Agitation Last Admin: 03/26/18 23:10 Dose: 0.2 mcg/kg/hr, 3.128 mls/hr Dextrose/Sodium Chloride (Dextrose 5%/0.45% Ns 1000 Ml) 1,000 mls @ 60 mls/hr IV .[id number] [facility] Last Admin: 03/29/18 03:30 Dose: 60 mls/hr Insulin Human Regular (Humulin R Low) 0 units SC Q6H [facility] PRN Reason: Protocol Last Admin: 03/29/18 07:57 Dose: Not Given Vitamin A (Vitamin A & D Oint Ud Foilpak) 1 ea TOP Q12 PRN PRN Reason: apply to dry lips Last Admin: 03/28/18 09:19 Dose: 1 ea - Labs Labs: 03/29/18 05:00 03/29/18 05:00 PT 20.2 SECONDS (9.4-12.5) H 03/25/18 05:40 INR 1.74 03/25/18 05:40 APTT 31.5 Seconds (25.1-36.5) 03/25/18 05:40 - Constitutional Appears: No Acute Distress, Chronically Ill, Other (somewhat lethargic but easily arousable) - ENT Exam ENT Exam: Mucous Membranes Moist - Respiratory Exam Respiratory Exam: Decreased Breath Sounds - Cardiovascular Exam Cardiovascular Exam: +S1, +S2 - GI/Abdominal Exam GI & Abdominal Exam: Soft. absent: Tenderness Assessment and Plan - Assessment and Plan (Free Text) Plan: Assessment systemic inflammatory response syndrome in this patient with acute left sided intra-cranial hemorrhage S/P ventilator-dependent respiratory failure, R/O UTI due to Salmonella Group C R/O central fever, S/P treatment for HCAP hyperbilirubinemia probably related to chronic liver disease / liver cirrhosis ethanol abuse liver cirrhosis with esophageal varices S/P banding in 2014 arthritis history of spinal stenosis Plan completed 5 days of Vancomycin and Azactam will start Bactrim for the Salmonella in the urine since QTc is prolonged and we are unable to use Quinolones - will get renal ultrasound discussed with Dr. Laguna previously follow up further plans of Neurology and Neurosurgery HIV test is non-reactive
[2018-03-30] MEDS: Potassium Chloride 30 MEQ in Dextrose 5%/0.45% NS 1,000 ML IV SCH (17:47)
[2018-03-30] MEDS: Tmp-Smz 800 mg-160 mg DS Tab PO SCH (17:50)
--- NOTE | 2018-03-31 00:10 | PN ---
DATE: 03/30/2018 SUBJECTIVE: The patient is seen lying in bed in the ICU. She is awake, she is alert. She does not have any specific complaints at this time. She has been having loose bowel movements. She denied any chest tightness. She denies any shortness of breath. PHYSICAL EXAMINATION: GENERAL: Elderly lady lying in bed in the ICU. VITAL SIGNS: Blood pressure 127/73, heart rate 84 per minute, respiratory rate 22 per minute, temperature 99.7. HEENT: Normocephalic, atraumatic, positive pallor, no icterus. NECK: Supple, no JVD. LUNGS: Bilateral equal air entry, bilateral rhonchi, no rales. CARDIAC: S1 and S2, regular rate and rhythm, no murmur, no rub. ABDOMEN: Distended, soft, nontender, bowel sounds present. EXTREMITIES: No lower extremity edema. INTAKE AND OUTPUT: 850/725. LABORATORY DATA: WBC 10, hemoglobin 10.8, hematocrit 32, and platelets . Sodium 140, potassium 3.1, chloride 111, CO2 of 22, BUN 11, creatinine 0.4, and glucose 105. Calcium 8.6, phosphorus 2.3, magnesium 1.8, total bili 4.9. Urine culture; Salmonella. CURRENT MEDICATIONS: Aldactone 100 daily, started today; Bactrim DS 1 tab b.i.d.; Coreg 3.125 b.i.d.; lactulose 20 b.i.d.; insulin; Lasix 20 mg IV daily; Keppra 1000 every 12 hours; Pepcid 20; D5 half-normal saline with 30 mEq of KCl at 40; Tylenol; vitamin A; Azactam 1 g every 8 hours discontinued. ASSESSMENT: 1. Acute intracerebral hemorrhage. 2. Cerebral edema/altered mental status, now much improved. 3. Alcoholic liver disease, cirrhosis of the liver, ascites. 4. Severe anemia. 5. Thrombocytopenia. 6. Severe hypokalemia. 7. Resolved hypophosphatemia. 8. Spinal stenosis. 9. Degenerative joint disease. PLAN: 1. Continue potassium supplementation. 2. Monitor WBC count. Continue antibiotic as per ID recommendations. 3. Push p.o. intake. 4. Monitor H and H. 5. Avoid nephrotoxins. Eleni Lobo MD
[2018-03-31] MEDS: Insulin Reg-LOW-Coverage SC SCH ×4 (02:00→21:23)
[2018-03-31 06:59] LABS: INR 1.85; PROTHROMBIN TIME 21.6 SECONDS (9.4-12.5)
[2018-03-31 07:11] LABS: BASO # 0.08 K/mm3 (0.0-2.0); BASO % 0.9 % (0.0-3.0); EOS # 0.2 (0.0-0.7); EOS % 2.4 % (1.5-5.0); GRAN # 7.04 (1.4-6.5); GRAN % 78.2 % (50.0-68.0); HEMOGLOBIN 10.6 g/dL (12.0-16.0); LYMPH # 0.8 (1.2-3.4); LYMPH % 8.4 % (22.0-35.0); MEAN CELL VOLUME 92.6 fl (80.0-105.0); MEAN CORPUSCULAR HEMOGLOBIN 31.5 pg (25.0-35.0); MEAN CORPUSCULAR HGB CONC 34.1 g/dl (31.0-37.0); MEAN PLATELET VOLUME 10.1 fl (7.0-11.0); MONO # 0.9 (0.1-0.6); MONO % 10.1 % (1.0-6.0); RBC 3.36 10^6/uL (3.5-6.1); RED CELL DISTRIBUTION WIDTH 16.3 % (11.5-14.5)
--- NOTE | 2018-03-31 08:07 | CP.PCM.PN ---
<Mohamud Freeman - Last Filed: 03/31/18 19:05> Subjective - Date & Time of Evaluation Date of Evaluation: 03/31/18 Time of Evaluation: 08:05 - Subjective Subjective: GI Fellow PGY4, No acute events overnight. No complaints. Resting comfortable at bedside. Nursing reports 4 BMs yesterday with lactulose. Tolerating diet. 5pt ROS neg except for above. Objective - Vital Signs/Intake and Output Vital Signs (last 24 hours): Temp Pulse Resp BP Pulse Ox 95.7 F L 79 24 132/79 96 03/30/18 18:55 03/30/18 22:00 03/30/18 20:10 03/30/18 20:00 03/30/18 20:10 Intake and Output: 03/31/18 03/31/18 06:59 18:59 Intake Total 1270 Output Total 1101 Balance 169 - Medications Medications: Current Medications Acetaminophen (Tylenol 325mg Tab) 650 mg PO Q6H PRN PRN Reason: Fever >100.4 F Last Admin: 03/30/18 13:49 Dose: 650 mg Carvedilol (Coreg) 3.125 mg PO BID [facility] Last Admin: 03/30/18 17:49 Dose: 3.125 mg Famotidine (Pepcid) 20 mg PO DAILY [facility] Furosemide (Lasix) 20 mg IV DAILY [facility] Last Admin: 03/30/18 09:24 Dose: 20 mg Levetiracetam 1,000 mg/ Sodium (Chloride) 110 mls @ 460 mls/hr IV Q12 [facility] Last Admin: 03/30/18 21:34 Dose: 460 mls/hr Potassium Chloride 30 meq/ (Dextrose/Sodium Chloride) 1,015 mls @ 40 mls/hr IV .Q24H [facility] Last Admin: 03/30/18 17:47 Dose: 40 mls/hr Insulin Human Regular (Humulin R Low) 0 units SC Q6H [facility] PRN Reason: Protocol Last Admin: 03/31/18 02:00 Dose: Not Given Lactulose (Enulose) 20 gm PO BID [facility] Last Admin: 03/30/18 17:49 Dose: 20 gm Spironolactone (Aldactone) 100 mg PO DAILY [facility] Last Admin: 03/30/18 09:27 Dose: 100 mg Trimethoprim/Sulfamethoxazole (Bactrim Ds Tab) 1 tab PO BID [facility] PRN Reason: Protocol Last Admin: 03/30/18 17:50 Dose: 1 tab Vitamin A (Vitamin A & D Oint Ud Foilpak) 1 ea TOP Q12 PRN PRN Reason: apply to dry lips Last Admin: 03/30/18 09:24 Dose: 1 ea - Labs Labs: 03/31/18 06:10 03/30/18 08:30 PT 21.6 SECONDS (9.4-12.5) H 03/31/18 06:10 INR 1.85 03/31/18 06:10 APTT 31.5 Seconds (25.1-36.5) 03/25/18 05:40 - Constitutional Appears: Non-toxic, No Acute Distress, Chronically Ill - Eye Exam Eye Exam: Normal appearance - ENT Exam ENT Exam: Mucous Membranes Moist - Respiratory Exam Respiratory Exam: Clear to Ausculation Bilateral, NORMAL BREATHING PATTERN - Cardiovascular Exam Cardiovascular Exam: REGULAR RHYTHM, +S1, +S2 - GI/Abdominal Exam GI & Abdominal Exam: Soft, Normal Bowel Sounds. absent: Tenderness - Extremities Exam Extremities Exam: Normal Inspection - Neurological Exam Neurological Exam: Alert. absent: Oriented x3 - Psychiatric Exam Psychiatric exam: Normal Affect, Normal Mood - Skin Skin Exam: Dry, Normal Color Assessment and Plan - Assessment and Plan (Free Text) Assessment: 62F with hx variceal bands presenting with AMS, seizures and found to have ICH and some herniation, now intubated. #Decompensated etoh cirrhosis - MELD 15 on admission. #E. Varices s/p bands 2014 #Colonic AVMs #Pancytopenia #Seizure disorder #Acute ICH #Bacturia - Salmonella PLAN: -Replace PLT per ICU -Ammonia level elevated 45. Restart lactulose. Goal BMs 2 per day. Titrated as needed. -Carvedilol 3.25mg BID for esophageal varices. Titrate to HR and BP. -Aldactone 100mg daily -lasix IV 20 daily, okay to change to 40mg PO. Defer to Nephro. -Defer salmonella treatment to ID/ICU -Famotidine PO daily. -Puree diet -No obvious need for PEG tube at this point. <Saulo,Kovil V - Last Filed: 04/01/18 00:37> Objective - Vital Signs/Intake and Output Vital Signs (last 24 hours): Temp Pulse Resp BP Pulse Ox 99.8 F H 82 16 135/85 94 L 03/31/18 12:00 03/31/18 18:00 03/31/18 08:00 03/31/18 18:00 03/31/18 08:00 Intake and Output: 03/31/18 04/01/18 18:59 06:59 Intake Total 1060 Output Total 1721 Balance -661 - Medications Medications: Current Medications Acetaminophen (Tylenol 325mg Tab) 650 mg PO Q6H PRN PRN Reason: Fever >100.4 F Last Admin: 03/30/18 13:49 Dose: 650 mg Carvedilol (Coreg) 3.125 mg PO BID [facility] Last Admin: 03/31/18 18:00 Dose: 3.125 mg Famotidine (Pepcid) 20 mg PO DAILY [facility] Last Admin: 03/31/18 09:54 Dose: 20 mg Furosemide (Lasix) 20 mg IV DAILY [facility] Last Admin: 03/31/18 09:53 Dose: 20 mg Levetiracetam 1,000 mg/ Sodium (Chloride) 110 mls @ 460 mls/hr IV Q12 [facility] Last Admin: 03/31/18 21:39 Dose: 460 mls/hr Potassium Chloride 30 meq/ (Dextrose/Sodium Chloride) 1,015 mls @ 40 mls/hr IV .Q24H [facility] Last Admin: 03/31/18 15:46 Dose: 40 mls/hr Insulin Human Regular (Humulin R Low) 0 units SC Q6H [facility] PRN Reason: Protocol Last Admin: 03/31/18 21:23 Dose: Not Given Lactulose (Enulose) 20 gm PO DAILY [facility] Last Admin: 03/31/18 09:55 Dose: 20 gm Spironolactone (Aldactone) 100 mg PO DAILY [facility] Last Admin: 03/31/18 10:28 Dose: 100 mg Trimethoprim/Sulfamethoxazole (Bactrim Ds Tab) 1 tab PO BID [facility] PRN Reason: Protocol Last Admin: 03/31/18 18:01 Dose: 1 tab Vitamin A (Vitamin A & D Oint Ud Foilpak) 1 ea TOP Q12 PRN PRN Reason: apply to dry lips Last Admin: 03/30/18 09:24 Dose: 1 ea - Labs Labs: 03/31/18 06:10 03/30/18 08:30 PT 21.6 SECONDS (9.4-12.5) H 03/31/18 06:10 INR 1.85 03/31/18 06:10 APTT 31.5 Seconds (25.1-36.5) 03/25/18 05:40 Attending/Attestation - Attestation I have personally seen and examined this patient.: Yes I have fully participated in the care of the patient.: Yes I have reviewed all pertinent clinical information, including history, physical exam and plan: Yes Notes (Text): This is an addendum to GI progress report dictated by the GI Fellow.The patient was seen and examined earlier. Medical records, lab studies, imagings were reviewed. Last 24 hours events reviewed. Agreed with the above treatment plan as outlined in GI Fellow 's notes with the addition of the following Lactulose dose has be reduced as the patient had frent bowel movement Follow-up electrolytes had a detailed discusion with the speech therapist yestrday 04/01/18 00:35
[2018-03-31] MEDS: Tmp-Smz 800 mg-160 mg DS Tab PO SCH ×2 (09:54→18:01)
--- NOTE | 2018-03-31 10:17 | CP.PCM.PN ---
Subjective - Date & Time of Evaluation Date of Evaluation: 03/31/18 Time of Evaluation: 10:14 - Subjective Subjective: Heme/Onc Progress Note for Dr. Medellin -- Nate Russo DO PGY2 Patient seen and examined at bedside. No acute overnight events. Patient is awaiting transfer from ICU. Patient is awake and answering questions appropriately. Patient states that she feels fatigue because she is unable to rest in the ICU. Patient denies CP, SOB, n/v/d, abdominal pain, fever, chills, HUNT, or dizziness. Objective - Vital Signs/Intake and Output Vital Signs (last 24 hours): Temp Pulse Resp BP Pulse Ox 99.4 F 80 16 130/73 94 L 03/31/18 08:00 03/31/18 09:54 03/31/18 08:00 03/31/18 09:54 03/31/18 08:00 Intake and Output: 03/31/18 03/31/18 06:59 18:59 Intake Total 1270 Output Total 1101 Balance 169 - Medications Medications: Current Medications Acetaminophen (Tylenol 325mg Tab) 650 mg PO Q6H PRN PRN Reason: Fever >100.4 F Last Admin: 03/30/18 13:49 Dose: 650 mg Carvedilol (Coreg) 3.125 mg PO BID [facility] Last Admin: 03/31/18 09:54 Dose: 3.125 mg Famotidine (Pepcid) 20 mg PO DAILY [facility] Last Admin: 03/31/18 09:54 Dose: 20 mg Furosemide (Lasix) 20 mg IV DAILY [facility] Last Admin: 03/31/18 09:53 Dose: 20 mg Levetiracetam 1,000 mg/ Sodium (Chloride) 110 mls @ 460 mls/hr IV Q12 [facility] Last Admin: 03/30/18 21:34 Dose: 460 mls/hr Potassium Chloride 30 meq/ (Dextrose/Sodium Chloride) 1,015 mls @ 40 mls/hr IV .Q24H [facility] Last Admin: 03/30/18 17:47 Dose: 40 mls/hr Insulin Human Regular (Humulin R Low) 0 units SC Q6H [facility] PRN Reason: Protocol Last Admin: 03/31/18 08:18 Dose: Not Given Lactulose (Enulose) 20 gm PO DAILY [facility] Last Admin: 03/31/18 09:55 Dose: 20 gm Spironolactone (Aldactone) 100 mg PO DAILY [facility] Last Admin: 03/30/18 09:27 Dose: 100 mg Trimethoprim/Sulfamethoxazole (Bactrim Ds Tab) 1 tab PO BID [facility] PRN Reason: Protocol Last Admin: 03/31/18 09:54 Dose: 1 tab Vitamin A (Vitamin A & D Oint Ud Foilpak) 1 ea TOP Q12 PRN PRN Reason: apply to dry lips Last Admin: 03/30/18 09:24 Dose: 1 ea - Labs Labs: 03/31/18 06:10 03/30/18 08:30 PT 21.6 SECONDS (9.4-12.5) H 03/31/18 06:10 INR 1.85 03/31/18 06:10 APTT 31.5 Seconds (25.1-36.5) 03/25/18 05:40 - Constitutional Appears: No Acute Distress - Head Exam Head Exam: NORMAL INSPECTION - Eye Exam Eye Exam: Normal appearance - ENT Exam ENT Exam: Normal Exam - Neck Exam Neck Exam: Normal Inspection - Respiratory Exam Respiratory Exam: Clear to Ausculation Bilateral. absent: Rales, Rhonchi, Wheezes - Cardiovascular Exam Cardiovascular Exam: RRR, +S1, +S2. absent: Gallop, Rubs, Murmur - GI/Abdominal Exam GI & Abdominal Exam: Soft. absent: Distended, Guarding, Tenderness, Rebound - Extremities Exam Extremities Exam: Normal Inspection - Neurological Exam Neurological Exam: Alert, Awake Neuro motor strength exam: Left Upper Extremity: 5, Right Upper Extremity: 3, Left Lower Extremity: 5, Right Lower Extremity: 3 - Psychiatric Exam Psychiatric exam: Normal Affect, Normal Mood - Skin Skin Exam: Dry, Intact, Normal Color, Warm Assessment and Plan - Assessment and Plan (Free Text) Assessment: 62 yo F with PMH of EtOH abuse, cirrhosis, esophageal varices, thrombocytopenia , spinal stenosis, arthritis, and degenerative joint disease admitted to ICU for status epilepticus 2/2 2.8x2.8cm left occipital lobe hemorrage found on CT with subsequent expansion on follow up CT (5.3x3.3cm), however MRI brain shows stable ICH. Heme/onc consulted due to thrombocytopenia, which appears to be chronic likely 2/2 cirrhosis. Plan: - Transfuse to maintain platelets > 50 - Transfused 9 units of platelets and 4 FFP overall - Platelet count today 62, cont to monitor - Anti-platelet antibodies, BECKY negative - Further management per Neuro, ICU, and primary - Will continue to monitor Case reviewed and discussed with attending. Nate Russo DO PGY2
[2018-03-31] MEDS: levETIRAcetam 1,000 MG in Sodium Chloride 0.9% 100 ML IV SCH ×2 (10:27→21:39)
[2018-03-31] MEDS: Potassium Chloride 30 MEQ in Dextrose 5%/0.45% NS 1,000 ML IV SCH (15:46)
--- NOTE | 2018-03-31 17:39 | PN ---
DATE: 03/31/2018 SUBJECTIVE: The patient is in bed, in no acute distress, nontoxic. The patient is seen earlier this morning in 129, bed 3. No fevers, no chills. PHYSICAL EXAMINATION: VITAL SIGNS: Temperature 99, blood pressure 170/60, respiratory rate 18, heart rate of 89. HEENT: Unremarkable. NECK: Supple. LUNGS: Have decreased breath sounds. HEART: Normal S1, S2. ABDOMEN: Soft. LABORATORY DATA: Reveals a white count of 9000, hemoglobin of 10, platelets of 62. Coagulation is noted and chemistries reveal BUN of 11, creatinine of 0.4. Urinalysis is noted. Serology is noted. Microbiology reveals the urine with Salmonella group C. The blood cultures are negative. Review of orders reveals the patient to be on p.o. Bactrim. The patient is ALLERGIC TO PENICILLIN. ASSESSMENT AND PLAN: This is a 62-year-old female seen earlier this morning in 129, bed 3 with systemic inflammatory response syndrome, acute left-sided intracranial hemorrhage, status post ventilator-dependent respiratory failure with Salmonella urinary tract infection, group C and status post treatment for healthcare-associated pneumonia and central fever, ethanol abuse, liver cirrhosis, esophageal varices, status post banding, and completed antibiotic therapy with vancomycin and Azactam, currently on Bactrim. The patient has prolonged QTc interval and I believe his quinolones HIV test is nonreactive. We will follow with you. Overall prognosis is poor. Yunior Jasso MD
--- NOTE | 2018-03-31 22:32 | PN ---
DATE: 03/31/2018 SUBJECTIVE: The patient is seen sitting up in bed in the ICU. Family members are at bedside. She is awake. She is alert. She is trying to eat lunch. She denies any pain. She denies any shortness of breath. PHYSICAL EXAMINATION: GENERAL: Elderly lady lying in bed in the ICU. VITAL SIGNS: Blood pressure 135/85, heart rate 92, respiratory rate 18-20, temperature 99.8. HEENT: Normocephalic, atraumatic, positive pallor. NECK: Supple, no JVD. LUNGS: Bilateral equal air entry, no rales. CARDIAC: S1, S2. Regular rate and rhythm, no murmur, no rub. ABDOMEN: Distended, soft, positive ascites, bowel sounds present. EXTREMITIES: No lower extremity edema. INTAKE AND OUTPUT: 1270/1100. LABORATORY DATA: WBC 9, hemoglobin 10.6, hematocrit 31, platelet 62. No chemistry. MEDICATIONS: Aldactone 100 daily, Bactrim 1 tablet b.i.d., Coreg 3.125 b.i.d., Enulose, insulin, Lasix 20 IV daily, Keppra, Pepcid, D5 half-normal saline with 30 mEq of KCL at 40, Tylenol. ASSESSMENT AND PLAN: 1. Alcoholic liver disease, cirrhosis, ascites. 2. Status post acute intracranial bleed/seizures. 3. Hypokalemia. 4. Hypophosphatemia. 5. Status post hypernatremia. PLAN: 1. Continue IV fluids with potassium. 2. Push p.o. intake. 3. Continue lactulose. 4. Continue Aldactone and Lasix Eleni Lobo MD
[2018-04-01] MEDS: Insulin Reg-LOW-Coverage SC SCH ×4 (05:37→21:24)
[2018-04-01 07:18] LABS: BASO # 0.06 K/mm3 (0.0-2.0); BASO % 0.7 % (0.0-3.0); EOS # 0.2 (0.0-0.7); EOS % 2.5 % (1.5-5.0); GRAN # 6.59 (1.4-6.5); GRAN % 76.2 % (50.0-68.0); HEMOGLOBIN 9.7 g/dL (12.0-16.0); LYMPH # 0.7 (1.2-3.4); LYMPH % 8.3 % (22.0-35.0); MEAN CELL VOLUME 92.6 fl (80.0-105.0); MEAN CORPUSCULAR HEMOGLOBIN 31.4 pg (25.0-35.0); MEAN CORPUSCULAR HGB CONC 33.9 g/dl (31.0-37.0); MEAN PLATELET VOLUME 9.9 fl (7.0-11.0); MONO # 1.1 (0.1-0.6); MONO % 12.3 % (1.0-6.0); RBC 3.09 10^6/uL (3.5-6.1); RED CELL DISTRIBUTION WIDTH 16.5 % (11.5-14.5); WHITE BLOOD COUNT 8.7 10^3/ul (4.5-11.0)
--- NOTE | 2018-04-01 08:06 | PN ---
DATE: 03/31/2018 DAILY PROGRESS NOTE SUBJECTIVE: The patient was seen this Friday afternoon in the intensive care. She remains in ICU, coronary care bed 3. Awaiting transfer to telemetry. She is a bit more awake, although spent much of her time sitting in bed with her eyes closed. She answers appropriately. Moves all extremities. Not sure as to mental acuity and sharpness. Lungs show good aeration, right and left. Heart is regular. Extremities show no edema. PLAN: Out of bed. Transfer to telemetry. Continue to follow. Abilio Bass MD
[2018-04-01] MEDS: Tmp-Smz 800 mg-160 mg DS Tab PO SCH ×2 (09:21→17:26)
[2018-04-01] MEDS: levETIRAcetam 1,000 MG in Sodium Chloride 0.9% 100 ML IV SCH ×2 (09:48→21:24)
--- NOTE | 2018-04-01 11:21 | CP.PCM.PN ---
<Mohamud Freeman - Last Filed: 04/01/18 11:29> Subjective - Date & Time of Evaluation Date of Evaluation: 04/01/18 Time of Evaluation: 11:18 - Subjective Subjective: GI Fellow pgy4 Patient is improving. Working with PT today. Tolerating diet, able to swallow potassium pill. No BMs today. Last BM 03/30. No change in mental status. 5pt ROS neg except for above. Objective - Vital Signs/Intake and Output Vital Signs (last 24 hours): Temp Pulse Resp BP Pulse Ox 97.5 F L 85 27 H 125/69 86 L 04/01/18 06:00 04/01/18 09:21 04/01/18 09:00 04/01/18 09:22 04/01/18 09:00 Intake and Output: 04/01/18 04/01/18 06:59 18:59 Intake Total 1680 Output Total 1721 Balance -41 - Medications Medications: Current Medications Acetaminophen (Tylenol 325mg Tab) 650 mg PO Q6H PRN PRN Reason: Fever >100.4 F Last Admin: 03/30/18 13:49 Dose: 650 mg Carvedilol (Coreg) 3.125 mg PO BID [facility] Last Admin: 04/01/18 09:21 Dose: 3.125 mg Famotidine (Pepcid) 20 mg PO DAILY [facility] Last Admin: 04/01/18 09:22 Dose: 20 mg Furosemide (Lasix) 20 mg IV DAILY [facility] Last Admin: 04/01/18 09:22 Dose: 20 mg Levetiracetam 1,000 mg/ Sodium (Chloride) 110 mls @ 460 mls/hr IV Q12 [facility] Last Admin: 04/01/18 09:48 Dose: 460 mls/hr Potassium Chloride 30 meq/ (Dextrose/Sodium Chloride) 1,015 mls @ 40 mls/hr IV .Q24H [facility] Last Admin: 03/31/18 15:46 Dose: 40 mls/hr Insulin Human Regular (Humulin R Low) 0 units SC Q6H [facility] PRN Reason: Protocol Last Admin: 04/01/18 09:13 Dose: Not Given Lactulose (Enulose) 20 gm PO DAILY [facility] Last Admin: 04/01/18 09:23 Dose: 20 gm Spironolactone (Aldactone) 100 mg PO DAILY [facility] Last Admin: 04/01/18 09:21 Dose: 100 mg Trimethoprim/Sulfamethoxazole (Bactrim Ds Tab) 1 tab PO BID [facility] PRN Reason: Protocol Last Admin: 04/01/18 09:21 Dose: 1 tab Vitamin A (Vitamin A & D Oint Ud Foilpak) 1 ea TOP Q12 PRN PRN Reason: apply to dry lips Last Admin: 03/30/18 09:24 Dose: 1 ea - Labs Labs: 04/01/18 07:00 03/30/18 08:30 PT 21.6 SECONDS (9.4-12.5) H 03/31/18 06:10 INR 1.85 03/31/18 06:10 APTT 31.5 Seconds (25.1-36.5) 03/25/18 05:40 - Constitutional Appears: Non-toxic, No Acute Distress, Chronically Ill - Eye Exam Eye Exam: Normal appearance - ENT Exam ENT Exam: Mucous Membranes Moist - Respiratory Exam Respiratory Exam: Clear to Ausculation Bilateral, NORMAL BREATHING PATTERN - Cardiovascular Exam Cardiovascular Exam: REGULAR RHYTHM - GI/Abdominal Exam GI & Abdominal Exam: Soft, Normal Bowel Sounds. absent: Tenderness - Exam Exam: NORMAL INSPECTION - Extremities Exam Extremities Exam: Normal Inspection - Neurological Exam Neurological Exam: Alert, Awake, Oriented x3 - Psychiatric Exam Psychiatric exam: Normal Affect, Normal Mood - Skin Skin Exam: Dry, Normal Color Assessment and Plan - Assessment and Plan (Free Text) Assessment: 62F with hx variceal bands presenting with AMS, seizures and found to have ICH and some herniation, now intubated. #Decompensated etoh cirrhosis - MELD 15 on admission. #E. Varices s/p bands 2014 #Colonic AVMs #Pancytopenia #Seizure disorder #Acute ICH #Bacturia - Salmonella PLAN: -MELD 20, continue to monitor. -Ammonia level increases without treatment in patient with changing mental status. Lactulose scheduled. Goal BMs 2 per day. Titrated as needed. -Carvedilol 3.25mg BID for esophageal varices. Titrate to HR and BP. -Aldactone 100mg daily -lasix IV 20 daily, okay to change to 40mg PO. Defer to Nephro. -Defer salmonella treatment to ID/ICU -Famotidine PO daily. -Puree diet -No obvious need for PEG tube at this point. <SauloKovil V - Last Filed: 04/02/18 23:08> Objective - Vital Signs/Intake and Output Vital Signs (last 24 hours): Temp Pulse Resp BP Pulse Ox 98.4 F 75 20 108/62 93 L 04/02/18 16:57 04/02/18 17:59 04/02/18 16:57 04/02/18 17:11 04/02/18 16:57 Intake and Output: 04/02/18 04/03/18 18:59 06:59 Intake Total 1310 Output Total 2500 Balance -1190 - Medications Medications: Current Medications Acetaminophen (Tylenol 325mg Tab) 650 mg PO Q6H PRN PRN Reason: Fever >100.4 F Last Admin: 03/30/18 13:49 Dose: 650 mg Carvedilol (Coreg) 3.125 mg PO BID [facility] Last Admin: 04/02/18 17:11 Dose: 3.125 mg Famotidine (Pepcid) 20 mg PO DAILY [facility] Last Admin: 04/02/18 09:24 Dose: 20 mg Furosemide (Lasix) 20 mg IV DAILY [facility] Last Admin: 04/02/18 09:24 Dose: 20 mg Levetiracetam 1,000 mg/ Sodium (Chloride) 110 mls @ 460 mls/hr IV Q12 [facility] Last Admin: 04/02/18 21:33 Dose: 460 mls/hr Insulin Human Regular (Humulin R Low) 0 units SC Q6H [facility] PRN Reason: Protocol Last Admin: 04/02/18 21:23 Dose: Not Given Lactulose (Enulose) 20 gm PO DAILY [facility] Last Admin: 04/02/18 09:23 Dose: 20 gm Spironolactone (Aldactone) 100 mg PO DAILY [facility] Last Admin: 04/02/18 09:24 Dose: 100 mg Trimethoprim/Sulfamethoxazole (Bactrim Ds Tab) 1 tab PO BID [facility] PRN Reason: Protocol Last Admin: 04/02/18 17:11 Dose: 1 tab Vitamin A (Vitamin A & D Oint Ud Foilpak) 1 ea TOP Q12 PRN PRN Reason: apply to dry lips Last Admin: 03/30/18 09:24 Dose: 1 ea - Labs Labs: 04/02/18 06:00 04/02/18 06:00 PT 21.6 SECONDS (9.4-12.5) H 09/11/18 06:10 INR 1.85 03/31/18 06:10 APTT 31.5 Seconds (25.1-36.5) 03/25/18 05:40 Attending/Attestation - Attestation I have personally seen and examined this patient.: Yes I have fully participated in the care of the patient.: Yes I have reviewed all pertinent clinical information, including history, physical exam and plan: Yes Notes (Text): This is an addendum to GI progress report dictated by the GI Fellow.The patient was seen and examined earlier. Medical records, lab studies, imagings were reviewed. Last 24 hours events reviewed. Agreed with the above treatment plan as outlined in GI Fellow 's notes with the addition of the following Patient family was at bedside Patient more alert on examination abdomen soft titrate the dose of lactolose continue pepsid 04/02/18 23:05
--- NOTE | 2018-04-01 12:57 | CP.PCM.PN ---
Subjective - Date & Time of Evaluation Date of Evaluation: 04/01/18 Time of Evaluation: 12:54 - Subjective Subjective: pt seen and examined, resting comfortably in unit, nursing and progress notes reviewed, pt feels stronger from CVA, pt has not had any further bleeding from mouth Objective - Vital Signs/Intake and Output Vital Signs (last 24 hours): Temp Pulse Resp BP Pulse Ox 97.5 F L 79 24 123/72 98 04/01/18 06:00 04/01/18 11:50 04/01/18 11:50 04/01/18 11:00 04/01/18 11:50 Intake and Output: 04/01/18 04/01/18 06:59 18:59 Intake Total 1680 Output Total 1721 Balance -41 - Medications Medications: Current Medications Acetaminophen (Tylenol 325mg Tab) 650 mg PO Q6H PRN PRN Reason: Fever >100.4 F Last Admin: 03/30/18 13:49 Dose: 650 mg Carvedilol (Coreg) 3.125 mg PO BID [facility] Last Admin: 04/01/18 09:21 Dose: 3.125 mg Famotidine (Pepcid) 20 mg PO DAILY [facility] Last Admin: 04/01/18 09:22 Dose: 20 mg Furosemide (Lasix) 20 mg IV DAILY [facility] Last Admin: 04/01/18 09:22 Dose: 20 mg Levetiracetam 1,000 mg/ Sodium (Chloride) 110 mls @ 460 mls/hr IV Q12 [facility] Last Admin: 04/01/18 09:48 Dose: 460 mls/hr Potassium Chloride 30 meq/ (Dextrose/Sodium Chloride) 1,015 mls @ 40 mls/hr IV .Q24H [facility] Last Admin: 03/31/18 15:46 Dose: 40 mls/hr Insulin Human Regular (Humulin R Low) 0 units SC Q6H [facility] PRN Reason: Protocol Last Admin: 04/01/18 09:13 Dose: Not Given Lactulose (Enulose) 20 gm PO DAILY [facility] Last Admin: 04/01/18 09:23 Dose: 20 gm Spironolactone (Aldactone) 100 mg PO DAILY [facility] Last Admin: 04/01/18 09:21 Dose: 100 mg Trimethoprim/Sulfamethoxazole (Bactrim Ds Tab) 1 tab PO BID [facility] PRN Reason: Protocol Last Admin: 04/01/18 09:21 Dose: 1 tab Vitamin A (Vitamin A & D Oint Ud Foilpak) 1 ea TOP Q12 PRN PRN Reason: apply to dry lips Last Admin: 03/30/18 09:24 Dose: 1 ea - Labs Labs: 04/01/18 07:00 03/30/18 08:30 PT 21.6 SECONDS (9.4-12.5) H 03/31/18 06:10 INR 1.85 03/31/18 06:10 APTT 31.5 Seconds (25.1-36.5) 03/25/18 05:40 - Constitutional Appears: Well - Head Exam Head Exam: NORMAL INSPECTION - Eye Exam Eye Exam: EOMI Pupil Exam: NORMAL ACCOMODATION - ENT Exam ENT Exam: Mucous Membranes Moist Additional comments: poor dentition no tenderness/bleeding - Neck Exam Neck Exam: Normal Inspection - Respiratory Exam Respiratory Exam: NORMAL BREATHING PATTERN Assessment and Plan (1) Electrolyte imbalance Status: Acute (2) Hypernatremia Status: Acute (3) Hypokalemia Status: Acute (4) Intracranial hemorrhage Status: Acute (5) Seizure Status: Acute (6) GI bleed Status: Acute (7) Loose tooth due to trauma Status: Acute (8) Dysphonia Status: Acute - Assessment and Plan (Free Text) Plan: continue to monitor, work with speech therapy, follow
[2018-04-01 13:26] LABS: BLOOD UREA NITROGEN 7 mg/dL (7-21); CALCIUM 8.4 mg/dL (8.4-10.5); GFR NON-AFRICAN AMERICAN > 60
[2018-04-01] MEDS ORDERED: Magnesium Sulfate 1 gm in D5W 1 GM/100 ML BAG IVPB ONE (14:52)
[2018-04-01] MEDS: POTASSIUM PHOSPHATE IV SCH (15:32)
[2018-04-01] MEDS: DEXTROSE IV SCH (15:32)
[2018-04-01] MEDS: [UNRECOGNIZED DRUG - OTHER] IV SCH (15:32)
--- NOTE | 2018-04-01 15:34 | CP.PCM.PN ---
Subjective - Date & Time of Evaluation Date of Evaluation: 04/01/18 Time of Evaluation: 09:25 - Subjective Subjective: No fevers, comfortable in bed. Objective - Vital Signs/Intake and Output Vital Signs (last 24 hours): Temp Pulse Resp BP Pulse Ox 99.8 F H 82 16 135/85 94 L 03/31/18 12:00 03/31/18 18:00 03/31/18 08:00 03/31/18 18:00 03/31/18 08:00 - Medications Medications: Current Medications Acetaminophen (Tylenol 325mg Tab) 650 mg PO Q6H PRN PRN Reason: Fever >100.4 F Last Admin: 03/30/18 13:49 Dose: 650 mg Carvedilol (Coreg) 3.125 mg PO BID [facility] Last Admin: 03/31/18 18:00 Dose: 3.125 mg Famotidine (Pepcid) 20 mg PO DAILY [facility] Last Admin: 03/31/18 09:54 Dose: 20 mg Furosemide (Lasix) 20 mg IV DAILY [facility] Last Admin: 03/31/18 09:53 Dose: 20 mg Levetiracetam 1,000 mg/ Sodium (Chloride) 110 mls @ 460 mls/hr IV Q12 [facility] Last Admin: 03/31/18 21:39 Dose: 460 mls/hr Potassium Chloride 30 meq/ (Dextrose/Sodium Chloride) 1,015 mls @ 40 mls/hr IV .Q24H [facility] Last Admin: 03/31/18 15:46 Dose: 40 mls/hr Insulin Human Regular (Humulin R Low) 0 units SC Q6H [facility] PRN Reason: Protocol Last Admin: 04/01/18 05:37 Dose: Not Given Lactulose (Enulose) 20 gm PO DAILY [facility] Last Admin: 03/31/18 09:55 Dose: 20 gm Spironolactone (Aldactone) 100 mg PO DAILY [facility] Last Admin: 03/31/18 10:28 Dose: 100 mg Trimethoprim/Sulfamethoxazole (Bactrim Ds Tab) 1 tab PO BID [facility] PRN Reason: Protocol Last Admin: 03/31/18 18:01 Dose: 1 tab Vitamin A (Vitamin A & D Oint Ud Foilpak) 1 ea TOP Q12 PRN PRN Reason: apply to dry lips Last Admin: 03/30/18 09:24 Dose: 1 ea - Labs Labs: 03/31/18 06:10 03/30/18 08:30 PT 21.6 SECONDS (9.4-12.5) H 03/31/18 06:10 INR 1.85 03/31/18 06:10 APTT 31.5 Seconds (25.1-36.5) 03/25/18 05:40 - Constitutional Appears: Chronically Ill - Neck Exam Neck Exam: absent: Meningismus - Respiratory Exam Respiratory Exam: Decreased Breath Sounds - Cardiovascular Exam Cardiovascular Exam: +S1, +S2 - GI/Abdominal Exam GI & Abdominal Exam: Soft. absent: Tenderness Assessment and Plan - Assessment and Plan (Free Text) Plan: Assessment systemic inflammatory response syndrome in this patient with acute left sided intra-cranial hemorrhage S/P ventilator-dependent respiratory failure, R/O UTI due to Salmonella Group C R/O central fever, S/P treatment for HCAP hyperbilirubinemia probably related to chronic liver disease / liver cirrhosis ethanol abuse liver cirrhosis with esophageal varices S/P banding in 2014 arthritis history of spinal stenosis Plan completed 5 days of Vancomycin and Azactam continue Bactrim day 3 for the Salmonella in the urine since QTc is prolonged and we are unable to use Quinolones - will get renal ultrasound follow up further plans of Neurology and Neurosurgery HIV test is non-reactive
--- NOTE | 2018-04-01 15:57 | US ---
Date of service: 04/01/2018 PROCEDURE: Ultrasound of the Kidneys HISTORY: rule out hydronephrosis COMPARISON: 03/22/2018 abdominal ultrasound. TECHNIQUE: Sonogram of the kidneys. FINDINGS: RIGHT KIDNEY: Measures: 5.5 x 10.5 cm. Normal in size, contour and echogenicity. No stone, solid mass lesion or hydronephrosis visualized. LEFT KIDNEY: Measures: 4.8 x 9.3 cm. Normal in size, contour and echogenicity. No stone, solid mass lesion or hydronephrosis visualized. OTHER FINDINGS: Splenomegaly. Orthogonal measurements 5.7 x 14.7 cm IMPRESSION: No acute findings related to/accounting for the clinical presentation. Splenomegaly.
[2018-04-02] MEDS: Insulin Reg-LOW-Coverage SC SCH ×4 (05:28→21:23)
[2018-04-02 06:32] LABS: BASO # 0.07 K/mm3 (0.0-2.0); BASO % 0.9 % (0.0-3.0); EOS # 0.3 (0.0-0.7); EOS % 3.7 % (1.5-5.0); GRAN # 5.57 (1.4-6.5); GRAN % 73.4 % (50.0-68.0); LYMPH # 0.9 (1.2-3.4); LYMPH % 11.3 % (22.0-35.0); MEAN CELL VOLUME 92.1 fl (80.0-105.0); MEAN CORPUSCULAR HEMOGLOBIN 31.4 pg (25.0-35.0); MEAN CORPUSCULAR HGB CONC 34.1 g/dl (31.0-37.0); MEAN PLATELET VOLUME 10.2 fl (7.0-11.0); MONO # 0.8 (0.1-0.6); MONO % 10.7 % (1.0-6.0); RBC 3.18 10^6/uL (3.5-6.1); RED CELL DISTRIBUTION WIDTH 16.5 % (11.5-14.5); WHITE BLOOD COUNT 7.6 10^3/ul (4.5-11.0)
[2018-04-02 06:56] LABS: ALB/GLOB RATIO 0.7 (1.1-1.8); ALBUMIN 2.8 g/dL (3.0-4.8); ALT/SGPT 38 U/L (7-56); AST/SGOT 69 U/L (14-36); BLOOD UREA NITROGEN 7 mg/dL (7-21); CALCIUM 8.3 mg/dL (8.4-10.5); GFR NON-AFRICAN AMERICAN > 60
--- NOTE | 2018-04-02 07:45 | CP.PCM.PN ---
<Mohamud Freeman - Last Filed: 04/02/18 09:35> Subjective - Date & Time of Evaluation Date of Evaluation: 04/02/18 Time of Evaluation: 07:44 - Subjective Subjective: GI Fellow PGY4, Looking more alert and mobile. Tolerating diet. Patient reports BM yesterday but no nursing notes. Patient not fully reliable, she states it is 1982, and Joel is president. 5pt ROS neg except for above. Objective - Vital Signs/Intake and Output Vital Signs (last 24 hours): Temp Pulse Resp BP Pulse Ox 97.5 F L 80 17 132/76 92 L 04/01/18 06:00 04/02/18 06:00 04/01/18 14:30 04/01/18 17:25 04/01/18 16:00 Intake and Output: 04/02/18 04/02/18 06:59 18:59 Intake Total 900 Output Total 800 Balance 100 - Medications Medications: Current Medications Acetaminophen (Tylenol 325mg Tab) 650 mg PO Q6H PRN PRN Reason: Fever >100.4 F Last Admin: 03/30/18 13:49 Dose: 650 mg Carvedilol (Coreg) 3.125 mg PO BID [facility] Last Admin: 04/01/18 17:25 Dose: 3.125 mg Famotidine (Pepcid) 20 mg PO DAILY [facility] Last Admin: 04/01/18 09:22 Dose: 20 mg Furosemide (Lasix) 20 mg IV DAILY [facility] Last Admin: 04/01/18 09:22 Dose: 20 mg Levetiracetam 1,000 mg/ Sodium (Chloride) 110 mls @ 460 mls/hr IV Q12 [facility] Last Admin: 04/01/18 21:24 Dose: 460 mls/hr Potassium Phosphate 30 mmole/ (Dextrose/Sodium Chloride) 1,010 mls @ 40 mls/hr IV .Q24H [facility] Last Admin: 04/01/18 15:32 Dose: 40 mls/hr Insulin Human Regular (Humulin R Low) 0 units SC Q6H [facility] PRN Reason: Protocol Last Admin: 04/02/18 05:28 Dose: Not Given Lactulose (Enulose) 20 gm PO DAILY [facility] Last Admin: 04/01/18 09:23 Dose: 20 gm Spironolactone (Aldactone) 100 mg PO DAILY [facility] Last Admin: 04/01/18 09:21 Dose: 100 mg Trimethoprim/Sulfamethoxazole (Bactrim Ds Tab) 1 tab PO BID [facility] PRN Reason: Protocol Last Admin: 04/01/18 17:26 Dose: 1 tab Vitamin A (Vitamin A & D Oint Ud Foilpak) 1 ea TOP Q12 PRN PRN Reason: apply to dry lips Last Admin: 03/30/18 09:24 Dose: 1 ea - Labs Labs: 04/02/18 06:00 04/02/18 06:00 PT 21.6 SECONDS (9.4-12.5) H 03/31/18 06:10 INR 1.85 03/31/18 06:10 APTT 31.5 Seconds (25.1-36.5) 03/25/18 05:40 - Constitutional Appears: Non-toxic, No Acute Distress, Chronically Ill - Eye Exam Eye Exam: Normal appearance - ENT Exam ENT Exam: Mucous Membranes Moist - Respiratory Exam Respiratory Exam: Clear to Ausculation Bilateral - Cardiovascular Exam Cardiovascular Exam: REGULAR RHYTHM - GI/Abdominal Exam GI & Abdominal Exam: Soft, Normal Bowel Sounds. absent: Tenderness - Neurological Exam Neurological Exam: Alert, Awake, Oriented x3 - Psychiatric Exam Psychiatric exam: Normal Affect, Normal Mood - Skin Skin Exam: Dry, Normal Color Assessment and Plan - Assessment and Plan (Free Text) Assessment: 62F with hx variceal bands presenting with AMS, seizures and found to have ICH and some herniation, now intubated. #Decompensated etoh cirrhosis - MELD 15 on admission. #E. Varices s/p bands 2014 #Colonic AVMs #Pancytopenia #Seizure disorder #Acute ICH #Bacturia - Salmonella PLAN: -MELD 21, continue to monitor. -Ammonia level increases without treatment in patient with changing mental status. Lactulose scheduled. Goal BMs 2 per day. Titrated as needed. -Carvedilol 3.25mg BID for esophageal varices. Titrate to HR and BP. -Aldactone 100mg daily -lasix IV 20 daily, okay to change to 40mg PO. Defer to Nephro. -Defer salmonella treatment to ID/ICU -Famotidine PO daily. -Puree diet -No obvious need for PEG tube at this point. <Jean-Claude Vernon V - Last Filed: 04/02/18 23:14> Objective - Vital Signs/Intake and Output Vital Signs (last 24 hours): Temp Pulse Resp BP Pulse Ox 98.4 F 75 20 108/62 93 L 04/02/18 16:57 04/02/18 17:59 04/02/18 16:57 04/02/18 17:11 04/02/18 16:57 Intake and Output: 04/02/18 04/03/18 18:59 06:59 Intake Total 1310 Output Total 2500 Balance -1190 - Medications Medications: Current Medications Acetaminophen (Tylenol 325mg Tab) 650 mg PO Q6H PRN PRN Reason: Fever >100.4 F Last Admin: 03/30/18 13:49 Dose: 650 mg Carvedilol (Coreg) 3.125 mg PO BID [facility] Last Admin: 04/02/18 17:11 Dose: 3.125 mg Famotidine (Pepcid) 20 mg PO DAILY [facility] Last Admin: 04/02/18 09:24 Dose: 20 mg Furosemide (Lasix) 20 mg IV DAILY [facility] Last Admin: 04/02/18 09:24 Dose: 20 mg Levetiracetam 1,000 mg/ Sodium (Chloride) 110 mls @ 460 mls/hr IV Q12 [facility] Last Admin: 04/02/18 21:33 Dose: 460 mls/hr Insulin Human Regular (Humulin R Low) 0 units SC Q6H [facility] PRN Reason: Protocol Last Admin: 04/02/18 21:23 Dose: Not Given Lactulose (Enulose) 20 gm PO DAILY [facility] Last Admin: 04/02/18 09:23 Dose: 20 gm Spironolactone (Aldactone) 100 mg PO DAILY [facility] Last Admin: 04/02/18 09:24 Dose: 100 mg Trimethoprim/Sulfamethoxazole (Bactrim Ds Tab) 1 tab PO BID [facility] PRN Reason: Protocol Last Admin: 04/02/18 17:11 Dose: 1 tab Vitamin A (Vitamin A & D Oint Ud Foilpak) 1 ea TOP Q12 PRN PRN Reason: apply to dry lips Last Admin: 03/30/18 09:24 Dose: 1 ea - Labs Labs: 04/02/18 06:00 04/02/18 06:00 PT 21.6 SECONDS (9.4-12.5) H 03/31/18 06:10 INR 1.85 03/31/18 06:10 APTT 31.5 Seconds (25.1-36.5) 03/25/18 05:40 Attending/Attestation - Attestation I have personally seen and examined this patient.: Yes I have fully participated in the care of the patient.: Yes I have reviewed all pertinent clinical information, including history, physical exam and plan: Yes Notes (Text): This is an addendum to GI progress report dictated by the GI Fellow.The patient was seen and examined earlier. Medical records, lab studies, imagings were reviewed. Last 24 hours events reviewed. Agreed with the above treatment plan as outlined in GI Fellow 's notes with the addition of the following On puree diet with assistance on examination Titrate lactolose dose Nonselectve beta blockers neurological followup 04/02/18 23:12
--- NOTE | 2018-04-02 07:52 | PN ---
DATE: 04/01/2018 DAILY PROGRESS NOTE SUBJECTIVE: The patient is a 62-year-old female who is with a history of gastritis, esophageal varices, alcoholic cirrhosis, thrombocytopenia who had been alcohol free for the past several years who is status post hip and knee replacement who was admitted on 03/21/2018 with an intracranial bleed. She has been in the Intensive Care Unit, intubated and followed by the fine artist, Neurology, Pulmonology and Hematology for her thrombocytopenia, Gastroenterology because of the esophageal varices as well as Infectious Disease. Since the last I saw the patient a week ago, she is now extubated. When seen in the Intensive Care Unit, she was sitting up in a chair. She answers questions, however short and brisk answers. She voices no complaints. During the hospital stay, MRI showed her bleed to be stable at 3-3.[address] scan of the abdomen showed cirrhosis, ascites and splenomegaly. EEG was done and this was consistent with toxic metabolic encephalopathy. There was an abnormality in the left hemisphere, frontal cortical area noted. OBJECTIVE: VITAL SIGNS: She is afebrile this morning. LUNGS: Clear anteriorly and posteriorly. HEART: Heart sounds are regular ABDOMEN: Soft and nontender. DATA: PT/INR is 1.85. White blood cell count is 8.7, hemoglobin and hematocrit are 9.7 and 28.6 respectively. Platelet count is 64. She was found to have Salmonella in her urine, which is sensitive to Cipro, Bactrim and ampicillin. The patient is currently on Bactrim. We will continue to follow the patient closely. She is awaiting transfer to the medical floor; hopefully, room will become available later on today. Zane Bass MD
[2018-04-02 08:10] VITALS: RESP 20
--- NOTE | 2018-04-02 08:12 | PN ---
DATE: 04/01/2018 SUBJECTIVE: The patient is seen sitting in recliner. She is awake. She is alert. She denies any pain. PHYSICAL EXAMINATION GENERAL: Elderly lady sitting in recliner. VITAL SIGNS: Blood pressure 123/72, heart rate 80, respiratory rate 24, temperature 97.5, T-max is 99.8. HEENT: Normocephalic, atraumatic, positive pallor. NECK: Supple, no JVD. LUNGS: Bilateral equal air entry, bilateral rhonchi, no rales. CARDIAC: S1 and S2, regular rate and rhythm, no murmur, no rub. ABDOMEN: Distended, soft, nontender, bowel sounds present. EXTREMITIES: No lower extremity edema. INTAKE AND OUTPUT: 2740/3442. LABORATORY DATA: WBC 8.7, hemoglobin 9.7, hematocrit 29, platelets 64. Sodium 136, potassium 3.8, chloride 106, CO2 of 21, BUN 7, creatinine 0.6, glucose 120, calcium 8.4, phosphorus 2.4, magnesium 1.7. CURRENT MEDICATIONS: Aldactone 100, Bactrim, Coreg 3.125 b.i.d., Enulose, insulin, Lasix 20 IV daily, Keppra, Pepcid, D5 half-normal saline with 30 mEq of KCl at 40, Tylenol. ASSESSMENT: 1. Hypokalemia. 2. Hypophosphatemia. 3. Hypomagnesemia. 4. Alcoholic liver disease/cirrhosis/ascites. 5. Recent intracranial bleed/fissures. PLAN: 1. Change IV fluids to D5 half-normal saline with 30 millimoles of potassium phosphate. 2. Push p.o. intake. 3. Replace magnesium. 4. Monitor daily labs Eleni Lobo MD PANCHO
[2018-04-02] MEDS: Tmp-Smz 800 mg-160 mg DS Tab PO SCH ×2 (09:24→17:11)
[2018-04-02] MEDS: levETIRAcetam 1,000 MG in Sodium Chloride 0.9% 100 ML IV SCH ×2 (09:47→21:33)
--- NOTE | 2018-04-02 12:13 | CP.PCM.PN ---
Subjective - Date & Time of Evaluation Date of Evaluation: 04/02/18 Time of Evaluation: 12:09 - Subjective Subjective: Heme/Onc Progress Note for Dr. Medellin -- Nate Russo DO PGY2 Patient seen and examined at bedside. No acute overnight events. Patient is doing well, tolerating diet, and OOB as tolerated. Patient denied CP, SOB, n/v/d , abdominal pain, fever, chills, HUNT, or dizziness. Objective - Vital Signs/Intake and Output Vital Signs (last 24 hours): Temp Pulse Resp BP Pulse Ox 98.3 F 78 20 104/59 L 92 L 04/02/18 08:09 04/02/18 09:24 04/02/18 08:09 04/02/18 09:24 04/01/18 16:00 Intake and Output: 04/02/18 04/02/18 06:59 18:59 Intake Total 900 Output Total 800 Balance 100 - Medications Medications: Current Medications Acetaminophen (Tylenol 325mg Tab) 650 mg PO Q6H PRN PRN Reason: Fever >100.4 F Last Admin: 03/30/18 13:49 Dose: 650 mg Carvedilol (Coreg) 3.125 mg PO BID [facility] Last Admin: 04/02/18 09:24 Dose: 3.125 mg Famotidine (Pepcid) 20 mg PO DAILY [facility] Last Admin: 04/02/18 09:24 Dose: 20 mg Furosemide (Lasix) 20 mg IV DAILY [facility] Last Admin: 04/02/18 09:24 Dose: 20 mg Levetiracetam 1,000 mg/ Sodium (Chloride) 110 mls @ 460 mls/hr IV Q12 [facility] Last Admin: 04/02/18 09:47 Dose: 460 mls/hr Potassium Phosphate 30 mmole/ (Dextrose/Sodium Chloride) 1,010 mls @ 40 mls/hr IV .Q24H [facility] Last Admin: 04/01/18 15:32 Dose: 40 mls/hr Insulin Human Regular (Humulin R Low) 0 units SC Q6H [facility] PRN Reason: Protocol Last Admin: 04/02/18 08:10 Dose: Not Given Lactulose (Enulose) 20 gm PO DAILY [facility] Last Admin: 04/02/18 09:23 Dose: 20 gm Spironolactone (Aldactone) 100 mg PO DAILY [facility] Last Admin: 04/02/18 09:24 Dose: 100 mg Trimethoprim/Sulfamethoxazole (Bactrim Ds Tab) 1 tab PO BID [facility] PRN Reason: Protocol Last Admin: 04/02/18 09:24 Dose: 1 tab Vitamin A (Vitamin A & D Oint Ud Foilpak) 1 ea TOP Q12 PRN PRN Reason: apply to dry lips Last Admin: 03/30/18 09:24 Dose: 1 ea - Labs Labs: 04/02/18 06:00 04/02/18 06:00 PT 21.6 SECONDS (9.4-12.5) H 03/31/18 06:10 INR 1.85 03/31/18 06:10 APTT 31.5 Seconds (25.1-36.5) 03/25/18 05:40 - Constitutional Appears: No Acute Distress - Head Exam Head Exam: NORMAL INSPECTION - Eye Exam Eye Exam: Normal appearance Pupil Exam: NORMAL ACCOMODATION - ENT Exam ENT Exam: Mucous Membranes Moist - Neck Exam Neck Exam: Normal Inspection - Respiratory Exam Respiratory Exam: Clear to Ausculation Bilateral. absent: Rales, Rhonchi, Wheezes - Cardiovascular Exam Cardiovascular Exam: RRR. absent: Gallop, Rubs, Murmur - GI/Abdominal Exam GI & Abdominal Exam: Soft. absent: Distended, Guarding, Tenderness, Rebound - Extremities Exam Extremities Exam: Normal Inspection - Back Exam Back Exam: NORMAL INSPECTION - Neurological Exam Neurological Exam: Alert, Awake, Oriented x3 - Psychiatric Exam Psychiatric exam: Normal Affect, Normal Mood - Skin Skin Exam: Dry, Intact, Normal Color, Warm Assessment and Plan - Assessment and Plan (Free Text) Assessment: 62 yo F with PMH of EtOH abuse, cirrhosis, esophageal varices, thrombocytopenia , spinal stenosis, arthritis, and degenerative joint disease admitted to ICU for status epilepticus 2/2 2.8x2.8cm left occipital lobe hemorrage found on CT with subsequent expansion on follow up CT (5.3x3.3cm), however MRI brain shows stable ICH. Heme/onc consulted due to thrombocytopenia, which appears to be chronic likely 2/2 cirrhosis. Plan: - Transfuse to maintain platelets > 50 - Transfused 9 units of platelets and 4 FFP overall - Platelet count today 79, cont to monitor - Anti-platelet antibodies, BECKY negative - Further management per primary - Will continue to monitor Case reviewed and discussed with attending. Nate Russo, DO PGY2
[2018-04-02] MEDS: DEXTROSE IV SCH (17:13)
[2018-04-02] MEDS: [UNRECOGNIZED DRUG - OTHER] IV SCH (17:13)
[2018-04-02] MEDS: POTASSIUM PHOSPHATE IV SCH (17:13)
--- NOTE | 2018-04-02 20:00 | PN ---
DATE: 04/02/2018 SUBJECTIVE: The patient is in bed, in no acute distress, nontoxic. PHYSICAL EXAMINATION: VITAL SIGNS: Temperature is 98, blood pressure is 108/60, respiratory 20, heart rate of 80. HEENT: Unremarkable. NECK: Supple. LUNGS: Have decreased breath sounds. HEART: Normal S1, S2. ABDOMEN: Soft, nontender. LABORATORY EXAMINATION: Reveals a white count of 7.6, hemoglobin of 10, platelets of 79. Chemistries reveals a BUN of 7, creatinine of 0.7. Toxicology is negative. Immunology is reviewed. Serology is noted. Negative hepatitis profile. Negative HIV and IgM mycoplasma. Microbiology reveals Salmonella in the group C in the urine. The blood cultures are negative. The patient is on Bactrim p.o. PLAN: A 62-year-old female with sepsis with Salmonella urine culture, status post acute left-sided intracranial hemorrhage, status post ventilator-dependent respiratory failure, with Salmonella urine currently now, the patient also with liver cirrhosis, esophageal varices, arthritis, spinal stenosis, alcohol abuse, hyperbilirubinemia, chronic liver disease and liver cirrhosis. Day #4 of Bactrim. The patient initially received vancomycin and Azactam. We will follow with you. Yunior Jasso MD
--- NOTE | 2018-04-03 01:24 | PN ---
DATE: 04/02/2018 SUBJECTIVE: The patient was seen this morning in room 316, bed 1. Resting comfortably in bed. There are no visitors present at this time. In speaking with the patient as well as my conversation with her nurse at the bedside, the patient is certainly awake and alert, recognizes me, engages in conversation, but is very slow in mentation, but not clear in her thought process and baseline, obviously as a result of the stroke, there is some cognitive dysfunction. PLAN: Spoke with upper caser and physical therapy working towards acute rehab for her hemorrhagic CVA. Abilio Bass MD
[2018-04-03] MEDS: Insulin Reg-LOW-Coverage SC SCH ×2 (04:59→08:34)
--- NOTE | 2018-04-03 06:40 | CP.PCM.PN ---
Subjective - Date & Time of Evaluation Date of Evaluation: 04/03/18 Time of Evaluation: 06:36 Objective - Vital Signs/Intake and Output Vital Signs (last 24 hours): Temp Pulse Resp BP Pulse Ox 98.4 F 72 20 108/62 93 L 04/02/18 16:57 04/03/18 06:00 04/02/18 16:57 04/02/18 17:11 04/02/18 16:57 Intake and Output: 04/02/18 04/03/18 18:59 06:59 Intake Total 1310 Output Total 2500 Balance -1190 - Medications Medications: Current Medications Acetaminophen (Tylenol 325mg Tab) 650 mg PO Q6H PRN PRN Reason: Fever >100.4 F Last Admin: 03/30/18 13:49 Dose: 650 mg Carvedilol (Coreg) 3.125 mg PO BID [facility] Last Admin: 04/02/18 17:11 Dose: 3.125 mg Famotidine (Pepcid) 20 mg PO DAILY [facility] Last Admin: 04/02/18 09:24 Dose: 20 mg Furosemide (Lasix) 20 mg IV DAILY [facility] Last Admin: 04/02/18 09:24 Dose: 20 mg Levetiracetam 1,000 mg/ Sodium (Chloride) 110 mls @ 460 mls/hr IV Q12 [facility] Last Admin: 04/02/18 21:33 Dose: 460 mls/hr Insulin Human Regular (Humulin R Low) 0 units SC Q6H [facility] PRN Reason: Protocol Last Admin: 04/03/18 04:59 Dose: Not Given Lactulose (Enulose) 20 gm PO BID [facility] Spironolactone (Aldactone) 100 mg PO DAILY [facility] Last Admin: 04/02/18 09:24 Dose: 100 mg Trimethoprim/Sulfamethoxazole (Bactrim Ds Tab) 1 tab PO BID [facility] PRN Reason: Protocol Last Admin: 04/02/18 17:11 Dose: 1 tab Vitamin A (Vitamin A & D Oint Ud Foilpak) 1 ea TOP Q12 PRN PRN Reason: apply to dry lips Last Admin: 03/30/18 09:24 Dose: 1 ea - Labs Labs: 04/02/18 06:00 04/02/18 06:00 PT 21.6 SECONDS (9.4-12.5) H 03/31/18 06:10 INR 1.85 09/11/18 06:10 APTT 31.5 Seconds (25.1-36.5) 03/25/18 05:40 Assessment and Plan - Assessment and Plan (Free Text) Assessment: 62F with hx variceal bands presenting with AMS, seizures and found to have ICH and some herniation, now intubated. #Decompensated etoh cirrhosis - MELD 15 on admission. #E. Varices s/p bands 2014 #Colonic AVMs #Pancytopenia #Seizure disorder #Acute ICH #Bacturia - Salmonella PLAN: -MELD 21, continue to monitor. -Ammonia level increases without treatment in patient with changing mental status. Lactulose scheduled. Goal BMs 2 per day. Titrated as needed. -Carvedilol 3.25mg BID for esophageal varices. Titrate to HR and BP. -Aldactone 100mg daily -lasix IV 20 daily, okay to change to 40mg PO. Defer to Nephro/primary. -Famotidine PO daily. -Puree diet
[2018-04-03 07:02] LABS: BASO # 0.12 K/mm3 (0.0-2.0); BASO % 1.7 % (0.0-3.0); EOS # 0.3 (0.0-0.7); EOS % 4.6 % (1.5-5.0); GRAN # 4.92 (1.4-6.5); HEMOGLOBIN 10.7 g/dL (12.0-16.0); LYMPH # 0.9 (1.2-3.4); LYMPH % 12.4 % (22.0-35.0); MEAN CORPUSCULAR HEMOGLOBIN 31.3 pg (25.0-35.0); MEAN CORPUSCULAR HGB CONC 33.6 g/dl (31.0-37.0); MEAN PLATELET VOLUME 10.2 fl (7.0-11.0); MONO # 0.8 (0.1-0.6); MONO % 11.3 % (1.0-6.0); RBC 3.42 10^6/uL (3.5-6.1); RED CELL DISTRIBUTION WIDTH 16.9 % (11.5-14.5)
[2018-04-03 07:57] VITALS: BP 106/61; PULSE 70; TEMP 98.1; O2SAT 94
--- NOTE | 2018-04-03 08:19 | PN ---
DATE: 04/02/2018 SUBJECTIVE: The patient is seen lying in bed. She is awake, she is alert, she is comfortable. She reports she is not very hungry today. She denies any diarrhea. PHYSICAL EXAMINATION: GENERAL: Elderly lady lying in bed. VITAL SIGNS: Blood pressure 104/59, heart rate 75, respiratory rate 20, temperature 98.4. HEENT: Normocephalic, atraumatic, positive pallor. NECK: Supple, no JVD. LUNGS: Bilateral equal air entry, bilateral equal expansion. CARDIAC: S1 and S2, regular rate and rhythm, no murmur, no rub. ABDOMEN: Distended, soft, nontender, bowel sounds present. EXTREMITIES: No lower extremity edema. INTAKE AND OUTPUT: 1830/800. LABORATORY DATA: WBC .6, hemoglobin 10, hematocrit 29, platelets 79. Sodium 135, potassium 4.1, chloride 105, CO2 of 22, BUN 7, creatinine 0.6, glucose 91, calcium 8.3, phosphorus not checked. Total bili 4.6, AST 69, ALT 38, albumin 2.8. CURRENT MEDICATIONS: Aldactone 100, Bactrim, Coreg 3.125 b.i.d., Enulose, Humulin, Lasix 20 IV daily, Keppra, Pepcid, D5 half-normal saline with 30 millimoles of potassium phosphate, Tylenol. ASSESSMENT: 1. Hypokalemia, resolved. 2. Hypophosphatemia, resolved. 3. Recent intracranial bleed/seizures. 4. Alcoholic liver disease, cirrhosis of the liver, ascites. PLAN: 1. Discontinue IV fluids. 2. Push p.o. fluids. 3. Continue Aldactone. 4. Continue potassium supplementation orally. 5. Continue antiseizure medications. Eleni Lobo MD
[2018-04-03] MEDS: Tmp-Smz 800 mg-160 mg DS Tab PO SCH (09:04)
[2018-04-03] MEDS: levETIRAcetam 1,000 MG in Sodium Chloride 0.9% 100 ML IV SCH (09:50)
--- NOTE | 2018-04-03 11:33 | CP.PCM.PN ---
Subjective - Date & Time of Evaluation Date of Evaluation: 04/03/18 Time of Evaluation: 11:28 - Subjective Subjective: Heme/Onc Progress Note for Dr. Medellin -- Nate Russo DO PGY2 Patient was seen and examined at bedside. No acute overnight events. Patient Objective - Vital Signs/Intake and Output Vital Signs (last 24 hours): Temp Pulse Resp BP Pulse Ox 98.1 F 70 20 106/61 94 L 04/03/18 07:56 04/03/18 09:04 04/03/18 07:56 04/03/18 09:06 04/03/18 07:56 Intake and Output: 04/03/18 04/03/18 06:59 18:59 Intake Total 580 Output Total 300 Balance 280 - Medications Medications: Current Medications Acetaminophen (Tylenol 325mg Tab) 650 mg PO Q6H PRN PRN Reason: Fever >100.4 F Last Admin: 03/30/18 13:49 Dose: 650 mg Carvedilol (Coreg) 3.125 mg PO BID [facility] Last Admin: 04/03/18 09:04 Dose: 3.125 mg Famotidine (Pepcid) 20 mg PO DAILY [facility] Last Admin: 04/03/18 09:06 Dose: 20 mg Furosemide (Lasix) 20 mg IV DAILY [facility] Last Admin: 04/03/18 09:06 Dose: 20 mg Levetiracetam 1,000 mg/ Sodium (Chloride) 110 mls @ 460 mls/hr IV Q12 [facility] Last Admin: 04/03/18 09:50 Dose: 460 mls/hr Insulin Human Regular (Humulin R Low) 0 units SC Q6H [facility] PRN Reason: Protocol Last Admin: 04/03/18 08:34 Dose: Not Given Lactulose (Enulose) 20 gm PO BID [facility] Last Admin: 04/03/18 09:04 Dose: 20 gm Spironolactone (Aldactone) 100 mg PO DAILY [facility] Last Admin: 04/03/18 09:03 Dose: 100 mg Trimethoprim/Sulfamethoxazole (Bactrim Ds Tab) 1 tab PO BID [facility] PRN Reason: Protocol Last Admin: 04/03/18 09:04 Dose: 1 tab Vitamin A (Vitamin A & D Oint Ud Foilpak) 1 ea TOP Q12 PRN PRN Reason: apply to dry lips Last Admin: 03/30/18 09:24 Dose: 1 ea - Labs Labs: 04/03/18 06:20 04/02/18 06:00 PT 21.6 SECONDS (9.4-12.5) H 03/31/18 06:10 INR 1.85 03/31/18 06:10 APTT 31.5 Seconds (25.1-36.5) 03/25/18 05:40 - Constitutional Appears: No Acute Distress - Head Exam Head Exam: NORMAL INSPECTION - Eye Exam Eye Exam: Normal appearance Pupil Exam: NORMAL ACCOMODATION - ENT Exam ENT Exam: Mucous Membranes Moist - Respiratory Exam Respiratory Exam: Clear to Ausculation Bilateral. absent: Rales, Rhonchi, Wheezes - Cardiovascular Exam Cardiovascular Exam: RRR. absent: Gallop, Rubs, Murmur - GI/Abdominal Exam GI & Abdominal Exam: Soft. absent: Distended, Guarding, Tenderness, Rebound - Extremities Exam Extremities Exam: Normal Inspection - Back Exam Back Exam: NORMAL INSPECTION - Neurological Exam Neurological Exam: Alert, Awake, Oriented x3 - Psychiatric Exam Psychiatric exam: Normal Affect, Normal Mood - Skin Skin Exam: Dry, Intact, Normal Color, Warm Assessment and Plan - Assessment and Plan (Free Text) Assessment: 62 yo F with PMH of EtOH abuse, cirrhosis, esophageal varices, thrombocytopenia , spinal stenosis, arthritis, and degenerative joint disease admitted to ICU for status epilepticus 2/2 2.8x2.8cm left occipital lobe hemorrage found on CT with subsequent expansion on follow up CT (5.3x3.3cm), however MRI brain shows stable ICH. Heme/onc consulted due to thrombocytopenia, which appears to be chronic likely 2/2 cirrhosis. Patient awaiting transfer to [facility]. Plan: - Transfuse to maintain platelets > 50 - Transfused 9 units of platelets and 4 FFP overall - Platelet count today 96, cont to monitor - Anti-platelet antibodies, BECKY negative - Will continue to follow while in hospital Case reviewed and discussed with attending. Nate Russo, PGY2
--- NOTE | 2018-04-03 12:54 | CP.PCM.PN ---
Subjective - Date & Time of Evaluation Date of Evaluation: 04/03/18 Time of Evaluation: 11:10 - Subjective Subjective: Patient is going to rehab facility today, no fevers, no headaches, no diarrhea. Objective - Vital Signs/Intake and Output Vital Signs (last 24 hours): Temp Pulse Resp BP Pulse Ox 98.1 F 70 20 106/61 94 L 04/03/18 07:56 04/03/18 09:04 04/03/18 07:56 04/03/18 09:06 04/03/18 07:56 Intake and Output: 04/03/18 04/03/18 06:59 18:59 Intake Total 580 Output Total 300 Balance 280 - Labs Labs: 04/03/18 06:20 04/02/18 06:00 PT 21.6 SECONDS (9.4-12.5) H 03/31/18 06:10 INR 1.85 03/31/18 06:10 APTT 31.5 Seconds (25.1-36.5) 03/25/18 05:40 - Constitutional Appears: No Acute Distress, Chronically Ill - Respiratory Exam Respiratory Exam: Decreased Breath Sounds - Cardiovascular Exam Cardiovascular Exam: +S1, +S2 - GI/Abdominal Exam GI & Abdominal Exam: Soft. absent: Tenderness Assessment and Plan - Assessment and Plan (Free Text) Plan: Assessment S/P systemic inflammatory response syndrome in this patient with acute left sided intra-cranial hemorrhage S/P ventilator-dependent respiratory failure, consider UTI due to Salmonella Group C S/P treatment for HCAP hyperbilirubinemia probably related to chronic liver disease / liver cirrhosis ethanol abuse liver cirrhosis with esophageal varices S/P banding in 2014 arthritis history of spinal stenosis Plan completed 5 days of Vancomycin and Azactam continue Bactrim day 5 to complete 10-14 days for the Salmonella in the urine since QTc is prolonged and we are unable to use Quinolones HIV test is non-reactive follow up further plans of Neurosurgery and Neurology
== END 2018-04-03 12:27 | DRG 64 ==
LOC: ED 13:55 → ERH 15:34 → CCU 17:18 → 3RNO 04-01 17:39
PROVIDERS: ADMIT Internal Medicine; ATTEND Internal Medicine
PROC: 5A1955Z Respiratory Ventilation, Greater than 96 Consecutive Hours (ICD-10-PCS; principal; 2018-03-21)
PROC: 0BH17EZ Insertion of Endotracheal Airway into Trachea, Via Natural or Artificial Opening (ICD-10-PCS; 2018-03-21)
PROC: 30233K1 Transfusion of Nonautologous Frozen Plasma into Peripheral Vein, Percutaneous Approach (ICD-10-PCS; 2018-03-23)
PROC: 30233R1 Transfusion of Nonautologous Platelets into Peripheral Vein, Percutaneous Approach (ICD-10-PCS; 2018-03-23)
DX: I61.1 Nontraumatic intracerebral hemorrhage in hemisphere, cortical (principal); G93.6 Cerebral edema; J96.90 Respiratory failure, unspecified, unspecified whether with hypoxia or hypercapnia; G92 Toxic encephalopathy; I85.10 Secondary esophageal varices without bleeding; E87.2 Acidosis; E87.0 Hyperosmolality and hypernatremia; D61.818 Other pancytopenia; N39.0 Urinary tract infection, site not specified; A02.9 Salmonella infection, unspecified; D68.9 Coagulation defect, unspecified; M81.0 Age-related osteoporosis without current pathological fracture; G40.901 Epilepsy, unspecified, not intractable, with status epilepticus; R29.729 NIHSS score 29; K70.31 Alcoholic cirrhosis of liver with ascites; E87.6 Hypokalemia; R16.1 Splenomegaly, not elsewhere classified; K55.20 Angiodysplasia of colon without hemorrhage; I27.20 Pulmonary hypertension, unspecified; E11.9 Type 2 diabetes mellitus without complications; I10 Essential (primary) hypertension; E83.39 Other disorders of phosphorus metabolism; J44.9 Chronic obstructive pulmonary disease, unspecified; F17.210 Nicotine dependence, cigarettes, uncomplicated; E83.42 Hypomagnesemia; E87.70 Fluid overload, unspecified; I36.1 Nonrheumatic tricuspid (valve) insufficiency; M19.90 Unspecified osteoarthritis, unspecified site; M48.00 Spinal stenosis, site unspecified; Z79.84 Long term (current) use of oral hypoglycemic drugs; Z86.73 Personal history of transient ischemic attack (TIA), and cerebral infarction without residual deficits; Z91.81 History of falling; Z96.641 Presence of right artificial hip joint; Z88.0 Allergy status to penicillin

== ENCOUNTER 2018-05-14 15:21 | Inpatient (IN) | payer BC, MEDICARE ==
[2018-05-14 15:22] VITALS: BMI 23.7
[2018-05-14 16:32] LABS: BASO # 0.02 K/mm3 (0.0-2.0); BASO % 0.2 % (0.0-3.0); EOS % 0.1 % (1.5-5.0); GRAN # 7.39 (1.4-6.5); GRAN % 84.6 % (50.0-68.0); HEMOGLOBIN 11.6 g/dL (12.0-16.0); LYMPH % 11.5 % (22.0-35.0); MEAN CELL VOLUME 93.3 fl (80.0-105.0); MEAN CORPUSCULAR HEMOGLOBIN 32.3 pg (25.0-35.0); MEAN CORPUSCULAR HGB CONC 34.6 g/dl (31.0-37.0); MONO # 0.3 (0.1-0.6); MONO % 3.6 % (1.0-6.0); RBC 3.59 10^6/uL (3.5-6.1); RED CELL DISTRIBUTION WIDTH 16.2 % (11.5-14.5); WHITE BLOOD COUNT 8.7 10^3/uL (4.5-11.0)
--- NOTE | 2018-05-14 16:42 | ED PDOC ---
Arrival/HPI - General Chief Complaint: Trauma Time Seen by Provider: 05/14/18 15:47 Historian: Patient - History of Present Illness Narrative History of Present Illness (Text): 05/14/18 16:42 63yo female with pmhx of alcohol cirrhosis, esophageal varices, spinal stenosis, arthritis, DJD, CVA (03/22/19) seizure who was bib EMS for evaluation s/p the found her sitting on the floor, confused and with ecchymosis on her left forehead and abrasion to her left hand. The that patient came back from Rehab two weeks ago after CVA and has been doing well, until he found her today. Patient states she feels disoriented, not sure if she had a syncopal episode, seizure or trauma. She however is AAOx3. She reports headache in ED. She denies focal weakness, visual changes, chest pain, SOB, slurred speech, diaphoresis, nausea, vomiting, abdominal pain, back pain, urinary/fecal incontinence, any other complaint. 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 - HEENT Hx HEENT Disorder: No - Renal Hx Renal Disorder: No - Endocrine/Metabolic Hx Endocrine Disorders: No - Hematological/Oncological Hx Blood Transfusions: Yes - Integumentary Hx Dermatological Disorder: No - Musculoskeletal/Rheumatological Hx Arthritis: Yes - Gastrointestinal Other/Comment: Alcohol Cirrhosis , Esophageal Varices , Peptic Ulcer , Erosive esophagitis - Genitourinary/Gynecological Hx Genitourinary Disorders: No - Psychiatric Hx Psychophysiologic Disorder: No Hx Substance Use: No - Surgical History Hx Musculoskeletal Surgery: Yes (Right Hip Replacement) - Anesthesia Hx Anesthesia Reactions: No Hx Malignant Hyperthermia: No - Suicidal Assessment Feels Threatened In Home Enviroment: No Family/Social History - Physician Review Nursing Documentation Reviewed: Yes Family/Social History: Unknown Family HX Smoking Status: Light Smoker < 10 Cigarettes Daily Hx Alcohol Use: Yes (wine) Amount per day: 10 Hx Substance Use: No Hx Substance Use Treatment: No Allergies/Home Meds Allergies/Adverse Reactions: Allergies Penicillins Allergy (Verified 03/21/18 13:59) RASH Review of Systems - Physician Review All systems were reviewed & negative as marked: Yes - Review of Systems Constitutional: Normal Eyes: Normal ENT: Normal Respiratory: Normal Cardiovascular: Normal Gastrointestinal: Normal Genitourinary Female: Normal Musculoskeletal: Normal Skin: Normal Neurological: Headache. absent: Dizziness, Focal Weakness, Gait Changes, Speech Changes, Facial Droop Endocrine: Normal Hemo/Lymphatic: Normal Psychiatric: Normal Physical Exam Vital Signs Reviewed: Yes Vital Signs Temp Pulse Resp BP Pulse Ox 05/14/18 15:58 98.3 F 75 16 117/62 97 05/14/18 15:33 97.9 F 74 18 113/70 99 Temperature: Afebrile Blood Pressure: Normal Pulse: Regular Respiratory Rate: Normal Appearance: Positive for: Well-Appearing, Non-Toxic, Comfortable Pain Distress: None Mental Status: Positive for: Alert and Oriented X 3 Finger Stick Blood Glucose: 160 - Systems Exam Head: Present: Normocephalic, Contusion (Left sided forehead with overlaying ecchymosis), Ecchymosis Pupils: Present: PERRL Extroacular Muscles: Present: EOMI Conjunctiva: Present: Normal Mouth: Present: Moist Mucous Membranes Neck: Present: Normal Range of Motion Respiratory/Chest: Present: Clear to Auscultation, Good Air Exchange. No: Respiratory Distress, Accessory Muscle Use Cardiovascular: Present: Regular Rate and Rhythm, Normal S1, S2. No: Murmurs Abdomen: No: Tenderness, Distention, Peritoneal Signs Back: Present: Normal Inspection Upper Extremity: Present: Normal Inspection. No: Cyanosis, Edema Lower Extremity: Present: Normal Inspection. No: Edema Neurological: Present: GCS=15, CN II-XII Intact, Speech Normal, Motor Func Grossly Intact, Normal Sensory Function, Normal Cerebellar Funct, Norm Deep Tendon Reflexes, Memory Normal, Normal 2Pt Descrimination Skin: Present: Warm, Dry, Normal Color. No: Rashes Psychiatric: Present: Alert, Oriented x 3, Normal Insight, Normal Concentration Medical Decision Making ED Course and Treatment: 05/14/18 19:12 63yo female who present was bib EMS after the found her confused, sitting on the floor. Pt could not remember what happened. Pt will be evaluated for these differential dx Seizure Vs syncope Vs trauma Labs EKG Head CT 05/14/18 19:22 Labs was reviewed and pt was hypokalemic and it was repleted. Elevated LFT's was noted which is similar to her previous lab but worse. EKG NSR @ 72bpm with LVH; Prolonged QT and Nonspecific ST abnormality Head CT IMPRESSION: Interval almost complete resolving of the previously seen left posterior parietal occipital hematoma. Residual subcentimeter focal high attenuation noted at the left occipital lobe adjacent to the midline. Focal encephalomalacia at the region of previously noted hematoma in the left posterior parietal occipital lobe. No evidence of significant mass effect or midline shift. PT remained neurological intact and AAO x 3 in ED Pt needs admission for further evaluation to r/o cardiac or neuro etiology Case was DW Dr. Moser and pt was admitted to his service. He requested Dr. Thornton consult. Resutl and plan was DW both pt and the and they agreed - Lab Interpretations Lab Results: 05/14/18 16:28 Lab Results 05/14/18 16:28: Alcohol, Quantitative < 10 05/14/18 16:28: WBC 8.7 D, RBC 3.59, Hgb 11.6 L, Hct 33.5 L, MCV 93.3, MCH 32.3, MCHC 34.6, RDW 16.2 H, Plt Count 64 L, MPV 10.0, Gran % 84.6 H, Lymph % (Auto) 11.5 L, [place] % (Auto) 3.6, Eos % (Auto) 0.1 L, Baso % (Auto) 0.2, Gran # 7.39 H, Lymph # (Auto) 1.0 L, [place] # (Auto) 0.3, Eos # (Auto) 0.0, Baso # (Auto) 0.02 - RAD Interpretation Radiology Orders: 05/14/18 15:48 HEAD W/O CONTRAST [CT] Stat Disposition/Present on Arrival - Present on Arrival Any Indicators Present on Arrival: No History of DVT/PE: No History of Uncontrolled Diabetes: No Urinary Catheter: No History of Decub. Ulcer: No History Surgical Site Infection Following: None - Disposition Have Diagnosis and Disposition been Completed?: Yes Diagnosis: Hypokalemia, Syncopal episodes, Head trauma, Elevated LFTs Disposition: HOSPITALIZED Disposition Time: 18:10 Patient Plan: Admission Patient Problems: Current Active Problems Problem Status Onset Head trauma Acute Hypokalemia Acute Syncopal episodes Acute Condition: GUARDED
--- NOTE | 2018-05-14 17:06 | CT ---
Date of service: 05/14/2018 PROCEDURE: CT HEAD WITHOUT CONTRAST. HISTORY: s/p trauma COMPARISON: Comparison is made with 03/24/2018 TECHNIQUE: Axial computed tomography images were obtained through the head/brain without intravenous contrast. Radiation dose: Total exam DLP = 754.84 mGy-cm. This CT exam was performed using one or more of the following dose reduction techniques: Automated exposure control, adjustment of the mA and/or kV according to patient size, and/or use of iterative reconstruction technique. FINDINGS: HEMORRHAGE: Interval almost complete resolving of the previously seen parenchymal hematoma at the left posterior parietal occipital lobe. There is a residual sub centimeter high attenuation at the left occipital lobe adjacent to the midline. BRAIN: No mass effect or edema. Focal encephalomalacia at the posterior left parietal occipital lobe is noted. Otherwise no significant interval change in the brain parenchyma. VENTRICLES: Unremarkable. No hydrocephalus. CALVARIUM: Unremarkable. PARANASAL SINUSES: Unremarkable as visualized. No significant inflammatory changes. MASTOID AIR CELLS: Unremarkable as visualized. No inflammatory changes. OTHER FINDINGS: None. IMPRESSION: Interval almost complete resolving of the previously seen left posterior parietal occipital hematoma. Residual subcentimeter focal high attenuation noted at the left occipital lobe adjacent to the midline. Focal encephalomalacia at the region of previously noted hematoma in the left posterior parietal occipital lobe. No evidence of significant mass effect or midline shift.
[2018-05-14 17:14] LABS: ALB/GLOB RATIO 0.8 (1.1-1.8); ALBUMIN 3.5 g/dL (3.0-4.8); ALT/SGPT 61 U/L (7-56); AST/SGOT 105 U/L (14-36); BLOOD UREA NITROGEN 8 mg/dL (7-21); CALCIUM 8.9 mg/dL (8.4-10.5); GFR NON-AFRICAN AMERICAN > 60
[2018-05-14] MEDS ORDERED: Potassium Chloride 20 mEq ER Tab PO STA (17:15)
[2018-05-14] MEDS: Sodium Chloride 0.9% 1,000 ML IV SCH (18:25)
[2018-05-14 20:46] LABS: INR 1.79; PARTIAL THROMBOPLASTIN TIME 34.5 Seconds (25.1-36.5); PROTHROMBIN TIME 20.7 SECONDS (9.4-12.5)
[2018-05-14 20:59] LABS: TROPONIN I < 0.01 ng/mL
[2018-05-15] MEDS: Sodium Chloride 0.9% 1,000 ML IV SCH ×3 (04:25→21:35)
[2018-05-15 06:36] LABS: MEAN CELL VOLUME 93.1 fl (80.0-105.0); MEAN CORPUSCULAR HGB CONC 34.3 g/dl (31.0-37.0); MEAN PLATELET VOLUME 9.9 fl (7.0-11.0); RBC 2.91 10^6/uL (3.5-6.1); RED CELL DISTRIBUTION WIDTH 16.3 % (11.5-14.5); WHITE BLOOD COUNT 5.3 10^3/uL (4.5-11.0)
[2018-05-15 06:56] LABS: HEMOGLOBIN 9.3 g/dL (12.0-16.0)
[2018-05-15 06:57] LABS: PLATELET COUNT 37 10^3/uL (120.0-450.0)
[2018-05-15 07:34] LABS: ALB/GLOB RATIO 0.7 (1.1-1.8); ALBUMIN 2.6 g/dL (3.0-4.8); ALT/SGPT 59 U/L (7-56); AST/SGOT 79 U/L (14-36); BLOOD UREA NITROGEN 7 mg/dL (7-21); CALCIUM 8.1 mg/dL (8.4-10.5); GFR NON-AFRICAN AMERICAN > 60
[2018-05-15] MEDS ORDERED: Potassium Chloride 20 mEq ER Tab PO ONE ×2 (08:30→10:30)
--- NOTE | 2018-05-15 10:00 | RAD ---
Date of service: 05/14/2018 HISTORY: admission COMPARISON: 03/28/2018 FINDINGS: LUNGS: Interval improvement multifocal infiltrates identified previously. PLEURA: No significant pleural effusion identified, no pneumothorax apparent. CARDIOVASCULAR: No atherosclerotic calcification present No radiographic findings to suggest acute or significant cardiovascular disease. OSSEOUS STRUCTURES: No significant abnormalities. VISUALIZED UPPER ABDOMEN: Normal. OTHER FINDINGS: None. IMPRESSION: No active pulmonary disease. Resolved infiltrates.
--- NOTE | 2018-05-15 10:53 | CARD ---
APPROVED REPORT Date of service: 05/14/2018 EKG Measurement Heart [id number] 140P-4 [id number] <Conclusion> Normal sinus rhythm Voltage criteria for left ventricular hypertrophy Nonspecific ST abnormality, new Prolonged QT
[2018-05-15] MEDS ORDERED: Dextrose 5%/0.45% NS 1,000 ML IV SCH (18:45)
--- NOTE | 2018-05-15 18:47 | CON ---
DATE: 05/15/2018 CHIEF COMPLAINT: Syncope, hyperkalemia. HISTORY OF PRESENT ILLNESS: This is a 63-year-old woman with history of alcoholic cirrhosis, esophageal varices, spinal stenosis, arthritis, disk degenerative disease and history of the left posterior parietooccipital CVA, status post seizure, who came to the hospital because found on the floor confused, ecchymosis on her forehead with abrasion on the left hand. She usually came back from two weeks ago for CVA and been doing well from rehab until we found her on the floor. I am not sure if she passed out or not. She is A and O x3, following commands, mild residual right-sided weakness from underlying CVA. She has scalp hematoma on the left frontal area, otherwise encephalomalacia on the left posterior parietooccipital area indicating old CVA on the CAT scan. MRI of the brain has been ordered. She is on Keppra for seizure prophylaxis, which I agree with. She also has low systolic and diastolic blood pressure for which she is on IV fluids. PAST MEDICAL HISTORY: Above. SOCIAL HISTORY: Currently, no illicit drug use, smoking or EtOH abuse. ALLERGIES: PENICILLIN. FAMILY HISTORY: Noncontributory. MEDICATIONS: Reviewed by nurses' reconciliation sheet. REVIEW OF SYSTEMS: Fourteen-point review of systems is negative except as per the HPI. LABORATORY DATA: Platelet count of 37, sodium is 138, potassium 3, chloride 104, carbon dioxide 28, BUN of 7, creatinine of 0.7, random glucose of 86, and has elevated LFTs. PHYSICAL EXAMINATION: VITAL SIGNS: Temperature of 98.7, pulse rate 81, blood pressure 97/61, respiratory rate 20, oxygen saturation 98% on room air. GENERAL: The patient is sitting up in bed, in no acute distress. HEENT: Normocephalic. PERRLA. Extraocular muscles intact. NECK: Supple. No JVD. No adenopathy noted. LUNGS: Clear to auscultation. No adventitious sounds. HEART: S1 and S2, normal rate and rhythm. No murmurs, rubs or gallops. ABDOMEN: Soft, nontender and nondistended. Bowel sounds present. EXTREMITIES: No clubbing. No cyanosis. Peripheral pulses 2+ felt bilaterally. NEUROLOGIC: The patient has left scalp bruising on the forehead from fall. The patient is alert and oriented to person, place and year. Recall after 5 minutes is 0/3. Poor attention span. Slow thought process. Cranial nerves II through XII intact. Motor: Moves all extremities equally. Slight right-sided weakness compared to the left. Toes are downgoing bilaterally. Sensory: Light touch and pinprick decreased at the calves bilaterally. Decreased vibration of the toes. DTRs are 2+ throughout and 1 at both knees and ankles. Coordination: [id number] intact. No dysmetria noted. Gait is deferred for now. ASSESSMENT AND PLAN: This is a 63-year-old woman with history of alcoholic cirrhosis, esophageal varices, spinal stenosis, arthritis, disk degenerative disease, left parietooccipital infarct/hemorrhage, status post rehabilitation, was brought in found on the floor and was disoriented. I am sure she had a syncopal episode or seizure. She had a low systolic and diastolic blood pressures indicating that she could have a vasovagal syncope verus seizure event. At this time, we will recommend: 1. Intravenous fluids. She has low systolic and diastolic blood pressure. Keep her blood pressure between 130s to 140 systolic and diastolic 70 to 80s. 2. Keppra continue 100 mg p.o. every 12 hours for seizure prophylaxis. 3. Gastroenterology consult for worsening liver function tests and physical therapy/occupational therapy today. MRI of the brain has been ordered. Thank you for this consult. Nguyễn Thornton MD
[2018-05-15 19:41] LABS: PH,URINE 6.5 (4.7-8.0); URINE BILIRUBIN SMALL (NEGATIVE); URINE BLOOD NEGATIVE (NEGATIVE); URINE GLUCOSE (UA) NEGATIVE (NEGATIVE); URINE LEUKOCYTE ESTERASE TRACE Leu/uL (NEGATIVE); URINE PROTEIN NEGATIVE mg/dL (<30 mg/dL); URINE UROBILINOGEN >=8.0 E.U./dL (<1 E.U./dL)
[2018-05-15 19:42] LABS: URINE APPEARANCE SLIGHT-CLOUDY (CLEAR); URINE COLOR DARK YELLOW (YELLOW)
[2018-05-15 19:47] LABS: URINE BACTERIA FEW (NEG); URINE RBC NEGATIVE /hpf (0-2); URINE WBC 0 - 2 /hpf (0-6)
[2018-05-16] MEDS: Sodium Chloride 0.9% 1,000 ML IV SCH ×2 (06:05→17:36)
--- NOTE | 2018-05-16 11:14 | MRI ---
Date of service: 05/15/2018 PROCEDURE: MRI BRAIN WITHOUT CONTRAST HISTORY: syncope COMPARISON: None available. TECHNIQUE: Multiplanar, multisequence MR images of the brain were obtained without intravenous contrast enhancement. FINDINGS: HEMORRHAGE: There is a 2.8 x 2.5 x 5.2 cm T1 and T2 hyperintense hematoma with central hypointensity on T1 weighted images in the left parieto-occipital lobe with mild surrounding vasogenic edema without midline shift or herniation. There is an additional 0.7 x 1.8 cm T1 and T2 hyperintense hematoma posterior to the larger hematoma in the left occipital lobe. DWI: No evidence of an acute or early subacute infarction. BRAIN PARENCHYMA: There is a small T1 hypointense and T2 hypointense round focus with mild surrounding T2 hyperintensity in the left anterior centrum semiovale with corresponding increased magnetic susceptibility. There is also includes jimmy weeks susceptibility in the left parieto-occipital lobe. VENTRICLES: There is mild age-related global parenchymal volume loss and proportionate enlargement of the ventricles and cortical sulci. CRANIUM: There is normal bone marrow signal pattern. ORBITS: Grossly unremarkable. PARANASAL SINUSES/MASTOIDS: There is mild polypoid mucosal thickening in the left maxillary sinus. The remaining included paranasal sinuses are clear. The mastoid air cells are clear. VASCULAR SYSTEM: There are normal signal voids in the larger intracranial arteries. OTHER FINDINGS: None. IMPRESSION: 1. Resolving large late subacute hematoma in the left parieto-occipital lobe with mild surrounding vasogenic edema now measuring 2.8 x 2.5 x 5.2 cm. Smaller 0.7 x 1.8 cm subacute hematoma in the left occipital lobe. 2. Small area of petechial hemorrhage in the left anterior centrum semiovale.
--- NOTE | 2018-05-16 14:11 | HP ---
HISTORY OF PRESENT ILLNESS: The patient is a 63-year-old female who was brought to the emergency room via squad when she was found on the floor of the kitchen by her . The patient does not recall the events surrounding her falling. She denies any chest pain, palpitations, weakness, lightheadedness.. The patient's does note that her underwear was down around her lower legs when found in the kitchen, which he could not explain why. It is possible that the patient had been in the bathroom when she initially fell and crawled to the kitchen before being found. The patient suffered an abrasion to the left frontal periorbital area as well as the right humerus, lateral side. PAST MEDICAL HISTORY: The patient is known to have a past medical history positive for T7-T8 and C5-C6 discopathy. She has a history of alcoholic cirrhosis, esophageal varices, peptic ulcer disease. She is status post right hip replacement. She had not been drinking for the past several months; however, she may have had a glass of wine occasionally with dinner. She suffered intracerebral bleed involving the left posterior parietal and occipital area within the past month. She did well at physical therapy and a subacute rehab facility. She was brought home, her stayed with her for 5 days and she was doing well. Therefore, he felt it was safe to return to work and leave her alone. SOCIAL HISTORY: The patient continues to smoke half a pack a day. ALLERGIES: SHE IS KNOWN TO BE ALLERGIC TO PENICILLIN WHICH CAUSED RASHES IN THE PAST. MEDICATIONS: Include Coreg 3.125 twice a day, Pepcid 20 mg daily, Lasix 20 mg daily, lactulose 20 mg twice a day, Keppra 1000 mg twice a day prophylactically. REVIEW OF SYSTEMS: Otherwise unremarkable. PHYSICAL EXAMINATION: VITAL SIGNS: Her blood pressure is 113/70, heart rate is 74 and she is afebrile. Examination of the head, eyes, ears, nose and throat shows the abrasion, ecchymosis over the left brow and periorbital area. GENERAL: The patient is awake, alert, talkative. She is oriented. She simply cannot remember events surrounding her fall at home. NECK: Supple with no lymphadenopathy. No goiter. LUNGS: Clear to auscultation and percussion. HEART: Regular. No murmurs are appreciated. ABDOMEN: Soft and nontender with no organomegaly. EXTREMITIES: Free of cyanosis, clubbing or edema. Range of motion of the upper or lower extremities appeared to be normal. The patient is moving all extremities. NEUROLOGICAL: She is awake, alert and oriented with no focal neurological signs. Of note, associated with her above presentation, there was no lip biting, tongue biting, incontinence of stool nor incontinence of urine. LABORATORY STUDIES: Show the white blood cell count to be 8.7, hemoglobin and hematocrit 11.6 and 33.5 respectively, platelet count is 64. Sodium is 136, potassium is markedly depressed at 2.1, chloride is 96, carbon dioxide is 28, blood urea nitrogen is 8, creatinine is 0.8, nonfasting glucose is 141. Total bilirubin is elevated at 5.0, AST is 105, ALT is 61, alkaline phosphatase is 151. There is a trace amount of leukocyte esterase in the urine along with trace amount of urinary ketones and a small amount of urinary bilirubin. Her alcohol level on toxicology scan is less than 10. So the patient is admitted with severe hypokalemia; syncope, rule out vasovagal syncope, rule out seizure. Zane Bass MD MTDD
--- NOTE | 2018-05-16 16:44 | PN ---
DATE: 05/15/2018 SUBJECTIVE: The patient is a 63-year-old female with a past medical history of alcoholic cirrhosis, esophageal varices, peptic ulcer disease, erosive gastritis, discopathy of T7 through T8 and C5 through C6, status post right hip replacement. She suffered a right posterior parietal occipital bleed about one month ago from which she did well. She was moving all extremities and she returned from subacute care facility to home. She was doing well at home; however, on the day of admission, she was found on the floor of the kitchen by her . It is unclear if the patient suffered a vasovagal syncope in the bathroom, hitting her head and right upper extremity after which she was able to crawl to the kitchen where she was found by her as he returned home from work. The other possibility she had a breakthrough seizure beside being on Keppra 1000 mg twice a day because she is status post intracerebral bleed. It would appear that the patient suffered a concussion in the fall and she cannot remember any events surrounding her fall at home. She was not incontinent of urine or stool. She did not bite her lip or tongue. She does not complain of myalgias or arthralgias. When seen the day following her admission, she appeared awake, alert. She was denying any muscular pain or arthralgias. Morning laboratory shows that her hypokalemia had been somewhat supplemented. LABORATORY DATA: This morning the potassium is 3, BUN and creatinine are 7 and 0.7 respectively. OBJECTIVE: VITAL SIGNS: Blood pressure is 104/54. ASSESSMENT AND PLAN: We will continue supplementing her potassium. We will begin physical therapy for ambulation. Consultation from Dr. Thornton, the neurologist, is appreciated. Zane Bass MD
[2018-05-16 16:53] LABS: BASO # 0.02 K/mm3 (0.0-2.0); BASO % 0.5 % (0.0-3.0); EOS # 0.1 (0.0-0.7); EOS % 1.6 % (1.5-5.0); GRAN # 2.82 (1.4-6.5); GRAN % 73.2 % (50.0-68.0); HEMOGLOBIN 9.7 g/dL (12.0-16.0); LYMPH # 0.6 (1.2-3.4); LYMPH % 15.1 % (22.0-35.0); MEAN CELL VOLUME 95.5 fl (80.0-105.0); MEAN CORPUSCULAR HEMOGLOBIN 31.4 pg (25.0-35.0); MEAN CORPUSCULAR HGB CONC 32.9 g/dl (31.0-37.0); MEAN PLATELET VOLUME 10.5 fl (7.0-11.0); MONO # 0.4 (0.1-0.6); MONO % 9.6 % (1.0-6.0); RBC 3.09 10^6/uL (3.5-6.1); RED CELL DISTRIBUTION WIDTH 16.8 % (11.5-14.5); WHITE BLOOD COUNT 3.9 10^3/uL (4.5-11.0)
[2018-05-16 16:59] LABS: INR 1.85; PARTIAL THROMBOPLASTIN TIME 35.6 Seconds (25.1-36.5); PROTHROMBIN TIME 21.4 SECONDS (9.4-12.5)
[2018-05-16 17:01] LABS: PLATELET COUNT 33 10^3/uL (120.0-450.0)
--- NOTE | 2018-05-16 17:01 | CP.PCM.PCO ---
Addendum entered and electronically signed by Javed Amos DO 05/16/18 17:03: NIHSS scale was done as soon as notification of MRI findings were relayed. Thanks. Original Note: NIHSS Scale ([place]) Time Performed: 17:01 - How Severe is the [place] Baseline Level of Consciousness: 0=Alert LOC to Questions: 0=Both comments correct LOC to commands: 0=Obeys both correctly Best Gaze: 0=Normal Visual: 0=No visual loss Facial: 0=Normal Motor Arm - Left: 0=No drift Motor Arm - Right: 0=No drift Motor Leg - Left: 0=No drift Motor Leg - Right: 0=No drift Limb Ataxia: 0=Absent Sensory: 0=Normal Best Language: 0=No aphasia Dysarthia: 0=Normal articulation Extinction & Inattention (Neglect): 0=Normal, no object Score: 0 Risk Level: No Stroke Risk
--- NOTE | 2018-05-16 17:02 | CON ---
[facility] CONSULT NOTE DATE OF CONSULTATION: 05/16/2018 REQUESTING PHYSICIAN: Abilio Bass MD CHIEF COMPLAINT: The patient presented to the emergency room and found unresponsive on the floor. HISTORY OF PRESENT ILLNESS: The patient is a 63-year-old female who was brought to the emergency room via the ambulance squad and stated that she was found on the floor by her . The patient had no memory of falling and at this time there are bruises on the left side of her face. 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 She has no residual weakness from that. The patient also carries a diagnosis of cirrhosis, EtOH abuse, esophageal varices, arthritis of cervical spine, orthopedic disease, seizure disorder. The patient presented to the emergency room this time, felt to have had a fall with trauma to the face. Initially, CAT scan of the head did not show any obvious abnormality, but MRI revealed a small frontal lobe hemorrhage. The patient was evaluated by intensive care team on the floor and transferred to the ICU for closer observation. No fever, chills, no nausea or vomiting, no abdominal pain, no chest pain, no diarrhea, no short shortness of breath, cough or wheezing. PAST MEDICAL HISTORY: As above. FAMILY HISTORY: Noncontributory. SOCIAL HISTORY: She continues to be a smoker. She does have a history of EtOH abuse, but no drug abuse. CURRENT MEDICATIONS: Can be evaluated as per the nurse's intake form. ALLERGIES: NO KNOWN ALLERGIES. REVIEW OF SYSTEMS: CONSTITUTIONAL: All negative. HEENT: Does have bruising on the left side of her face from the fall. RESPIRATORY: All negative. CARDIOVASCULAR: All negative. GASTROINTESTINAL: All negative. : All negative. MUSCULOSKELETAL: All negative. NEUROPSYCHIATRIC: The patient is moving all extremities and oriented x3. No obvious neuro deficits. HEMATOLOGIC: All negative. IMMUNOLOGIC: All negative. INTEGUMENTARY: All negative. PHYSICAL EXAMINATION: Her temperature is 99.3, her pulse is 101, respirations are 18, and BP is 121/75. Skin is warm and dry. Head, trauma to the left side of her face from the fall with ecchymotic areas around the left eye and cheek. There is some mild swelling. Eyes within normal limits. Ears, nose and throat seem to be within normal limits. Her neck is supple. No JVD. No thyroid enlargement or lymph nodes. Heart has a regular rate and rhythm. Normal S1, S2. Lungs reveal good breath sounds bilaterally. Abdomen is soft, mildly distended. No organomegaly noted. Genitalia and rectal deferred. Musculoskeletal, no joint deformities. Extremities reveal trace lower extremity edema. Neurologically, she seems to be grossly intact. LABORATORY DATA: White count is 5.3, hemoglobin is 9.3, hematocrit is 27.1 with platelets of 37,000. The patient's sodium is 138, potassium 3.0, chloride 104, CO2 of 28 with a BUN of 7, creatinine of 0.7, and a glucose of 86. As far as her brain MRI, it reveals a resolving large late subacute hematoma in the left laure-occipital lobe with surrounding vasogenic edema. A small area of petechial hemorrhage in the left anterior centrum semiovale. Chest x-ray reveals no active disease, resolved infiltrates. IMPRESSION: This patient has a new petechial hemorrhage in the left anterior centrum semiovale and status post resolving large subacute hematoma in the laure-occipital lobe.. The patient has a small cerebral hemorrhage and old subdural hematoma. She has anemia as well as thrombocytopenia. The patient has a history of EtOH abuse and liver cirrhosis, esophageal varices, arthritis C-spine, disk degeneration, seizure disorder, and history of falls. PLAN: The patient has been transferred to the intensive care unit for closer observation. She is getting Keppra as well as Lasix, Pepcid and IV fluids of normal saline as well as Tylenol p.r.n. for any pain. We will continue to follow closely and treat aggressively along with the other consultants and the primary care doctor. Cameron Guillory MD
[2018-05-16 17:11] LABS: ALB/GLOB RATIO 0.7 (1.1-1.8); ALBUMIN 2.8 g/dL (3.0-4.8); ALT/SGPT 58 U/L (7-56); AST/SGOT 86 U/L (14-36); BLOOD UREA NITROGEN 6 mg/dL (7-21); CALCIUM 8.3 mg/dL (8.4-10.5); GFR NON-AFRICAN AMERICAN > 60
[2018-05-16] MEDS ORDERED: Simethicone 80 mg Chewtab PO PRN (19:55)
[2018-05-17] MEDS: Sodium Chloride 0.9% 1,000 ML IV SCH ×2 (04:00→17:03)
[2018-05-17 06:43] LABS: BASO # 0.02 K/mm3 (0.0-2.0); BASO % 0.4 % (0.0-3.0); EOS # 0.1 (0.0-0.7); EOS % 1.6 % (1.5-5.0); GRAN # 3.71 (1.4-6.5); GRAN % 73.1 % (50.0-68.0); HEMOGLOBIN 9.9 g/dL (12.0-16.0); LYMPH # 0.7 (1.2-3.4); LYMPH % 14.4 % (22.0-35.0); MEAN CELL VOLUME 95.9 fl (80.0-105.0); MEAN CORPUSCULAR HEMOGLOBIN 31.5 pg (25.0-35.0); MEAN CORPUSCULAR HGB CONC 32.9 g/dl (31.0-37.0); MEAN PLATELET VOLUME 10.1 fl (7.0-11.0); MONO # 0.5 (0.1-0.6); MONO % 10.5 % (1.0-6.0); RBC 3.14 10^6/uL (3.5-6.1); RED CELL DISTRIBUTION WIDTH 16.6 % (11.5-14.5); WHITE BLOOD COUNT 5.1 10^3/uL (4.5-11.0)
[2018-05-17 06:48] LABS: PLATELET COUNT 34 10^3/uL (120.0-450.0)
[2018-05-17 06:55] LABS: ALB/GLOB RATIO 0.7 (1.1-1.8); ALBUMIN 2.6 g/dL (3.0-4.8); ALT/SGPT 53 U/L (7-56); AST/SGOT 78 U/L (14-36); BLOOD UREA NITROGEN 7 mg/dL (7-21); CALCIUM 8.1 mg/dL (8.4-10.5); GFR NON-AFRICAN AMERICAN > 60
[2018-05-17 08:37] LABS: PLATELET COUNT MANUAL 39 K/mm3 (120-450); PLATELET ESTIMATE LOW (NORMAL)
[2018-05-17] MEDS ORDERED: Magnesium Sulfate 1 gm in D5W 1 GM/100 ML BAG IVPB ONE (13:13)
[2018-05-17] MEDS: Potassium & Sodium Phosphate PO SCH ×2 (13:38→17:01)
--- NOTE | 2018-05-17 14:11 | PN ---
DATE: 05/17/2018 COMMAND AND CONTROL SPECIALIST NOTE SUBJECTIVE: The patient is resting in bed. No complaints of shortness of breath, cough, wheezing, or chest congestion. No complaints of dizziness, but does have a mild headache this morning. No fever, chills, nausea or vomiting. PHYSICAL EXAMINATION: VITAL SIGNS: Her temperature is 98.5, pulse is 101, respirations of 22 and BP is 128/71. SKIN: Warm and dry. HEENT: Head: Atraumatic, normocephalic. Eyes: Reactive to light. Ear, nose and throat: Seemed to be within normal limits. Note that her face is still has significant ecchymotic area on the left eye and cheek. LUNGS: Reveal good breath sounds bilaterally. HEART: Regular rate and rhythm. Normal S1, S2. ABDOMEN: Soft, nontender. Normal bowel sounds. No organomegaly noted. GENITALIA: Deferred. RECTAL: Deferred. MUSCULOSKELETAL: No joint deformities. EXTREMITIES: Reveal no edema. NEUROLOGICAL: She seemed to be gross intact. LABORATORY DATA: The patient's white count is 5.1, hemoglobin is 9.9, hematocrit 30.1 with platelets of 95,000. Sodium is 138, potassium is 4.2, chloride 108, CO2 of 24 with a BUN of 10, creatinine of 0.6, glucose of 88. IMPRESSION: This patient has petechial hemorrhage in the left anterior centrum semiovale and status post resolving large subacute hematoma in the perioccipital lobe. The patient has small cerebral hemorrhage and old subdural hematoma. She has anemia as well as thrombocytopenia and a history of ethyl alcohol abuse, liver cirrhosis, esophageal varices, arthritis of the cervical spine as well as seizure disorder and history of falls. PLAN: We will continue to observe her in the ICU. She is on Keppra as well as Lasix, Pepcid and Tylenol for pain. We will continue to treat aggressively along with the other consultants and the primary care doctor. Cameron Guillory MD
--- NOTE | 2018-05-17 14:28 | PN ---
DATE: 05/17/2018 NEUROLOGY FOLLOWUP CHIEF COMPLAINT: Followup for syncope, status post intracranial bleed. SUBJECTIVE: The patient was seen and examined at bedside, doing much better, following commands, A and O x3. Still has a low platelet count of 39 and INR is 1.84, but no active bleeding. The patient is currently in the ICU, being monitored. Her MRI of the brain showed resolving large late subacute hematoma in the left parietal lobe with mild surrounding vasogenic edema measuring 2.8 x 2.5 x 5.2 cm and a small subacute hematoma in the left occipital lobe with small petechial hemorrhage in the left anterior centrum semiovale. She is on Keppra 1000 mg p.o. every 12 for seizure prophylaxis. She did sustain a concussion. PAST MEDICAL HISTORY: History of alcohol cirrhosis, esophageal varices, spinal stenosis, arthritis, disk degenerative disease, history of left posterior parietal lobe CVA in the past, status post seizure. ALLERGIES: ALLERGIC TO PENICILLIN. FAMILY HISTORY: Noncontributory. MEDICATIONS: Reviewed by nurses' reconciliation sheet. REVIEW OF SYSTEMS: Fourteen-point review of systems is negative except as per the HPI. LABORATORY DATA: Sodium is 138, potassium 4.2, chloride 108, carbon dioxide of 24, BUN of 7, creatinine of 0.6, random glucose of 88, platelet count of 39. PHYSICAL EXAMINATION: VITAL SIGNS: Temperature afebrile, pulse rate of 101, blood pressure 128/71, respiratory rate of 20, oxygen saturation 92% by nasal cannula. GENERAL: The patient is lying in bed, in no acute distress. HEENT: Atraumatic, normocephalic. PERRLA. Extraocular muscles intact. Has ecchymosis on the forehead in the eyes. NECK: Supple. No JVD, no adenopathy noted. LUNGS: Clear to auscultation. No adventitious sounds. HEART: S1, S2. Normal rhythm, tachycardic. No murmurs, rubs or gallops. ABDOMEN: Soft, nontender and nondistended. Bowel sounds are present. EXTREMITIES: No clubbing. No cyanosis. Peripheral pulses 2+ felt bilaterally. NEUROLOGIC: The patient has a left scalp bruising on the forehead from a fall. The patient is alert and oriented to person, place and year. Recall after 5 minutes is 0/3. Poor attention span. Slow thought process. Cranial nerves II through XII are intact. Motor exam: Moves all extremities equally. No pronator drifts seen except for mild right-sided weakness compared to the left from prior CVA. Toes are downgoing bilaterally. Sensory exam: Light touch, pinprick are decreased up to the calves bilaterally. Decreased vibration of the toes. Proprioception is intact bilaterally. DTRs are 2+ throughout and 1 at both knees and ankles. Coordination: [id number] intact. No dysmetria noted. Gait is deferred for now. ASSESSMENT AND PLAN: This is a 63-year-old woman with a history of alcoholic cirrhosis, esophageal varices, spinal stenosis, arthritis, disk degenerative disease, history of left parietooccipital infarct/hemorrhage in the past, status post rehabilitation as well as seizure in the past, on Keppra, who had a syncopal episode and also had mild concussion, had low systolic and diastolic blood pressures, which could have caused the syncope versus breakthrough seizure from underlying intracranial hematomas. MRI of the brain showed resolving large left subacute hematoma in the left parietooccipital lobe with mild vasogenic edema measuring 2.8 x 2.5 x 5.2, smaller 1.7 x 1.8 subacute hematoma on the left occipital lobe with small petechial hemorrhage in the left anterior semiovale. At this time, we will recommend, 1. Continue to keep blood pressure between 130s-140s systolic and diastolic 70-80s. 2. Continue with Keppra 1000 mg IV every 12 for seizure prophylaxis. 3. Continue to monitor her INR, PTT as well as her platelet count as still has thrombocytopenia. I am going to recommend to follow up with GI given that she has worsening liver function tests. At this time, will need physical therapy/occupational therapy and also acute rehabilitation. Thank you for this consult. Nguyễn Thornton MD PANCHO
[2018-05-17] MEDS ORDERED: Mupirocin 2% Ointment 15 GM TUBE NS SCH ×2 (18:00)
--- NOTE | 2018-05-18 02:49 | CON ---
DATE: 05/17/2018 CHIEF COMPLAINT: Loss of consciousness? HISTORY OF PRESENT ILLNESS: The patient is a 63-year-old female with known cirrhosis due to alcohol abuse, history of esophageal varices, recently status post hospitalization for cerebral bleed, left occipital intracerebral hemorrhage on 03/21 with known seizure disorder, status post respiratory failure, intubation, now admitted via the emergency room after found sitting on the floor with the patient confused, question status post a fall with contusion ecchymotic changes on the left orbit, left side of her face. The patient does not recall what had happened prior to this event, possible syncopal episode, seizure with trauma. At present, she is weak, resting in intensive care unit, in no apparent distress at this time. She has come back from rehab two weeks prior after the events as noted above. ALLERGIES: TO PENICILLIN. MEDICATIONS: Included Coreg, Pepcid, Lasix, lactulose, and Keppra. PAST MEDICAL HISTORY: Also includes cirrhosis of the liver, esophageal varices status post banding in 2013 with a hemoglobin of 5.5, severe thrombocytopenia, spinal stenosis, DJD, hip surgery, fracture of maxilla with front tooth enucleation, status post a fall in 09/2017, osteoporosis, and iron-deficiency anemia. SOCIAL HISTORY: The patient quit alcohol use approximately 2 to 3 months prior, smokes half a pack of cigarettes a day, lives with her , is unemployed. REVIEW OF SYSTEMS: Her 12-point review of systems essentially negative to question except for items mentioned in the history of present illness. OBJECTIVE/PHYSICAL EXAMINATION VITAL SIGNS: Temperature 98.7, pulse 97, respirations 22, blood pressure 120/71, and pulse ox 92%. HEENT: She has ecchymosis over the left periorbital area on left side of her face. Tongue is moist and midline. NECK: Supple. No nodes. HEART: Regular rate. LUNGS: Clear. ABDOMEN: Soft and nontender. EXTREMITIES: Minimal weakness to sampler first, no edema. NEUROLOGIC: Awake and alert. LABORATORY DATA: The patient's labs were done. White blood cell count of 5.1, hemoglobin 9.9, hematocrit 30.1 with a platelet count of 34,000 with a manual count of 39,000. Her INR was 1.85 today, it was 1.79 two days prior with a metabolic panel showing a calcium of 8.1, phosphorus of 2.4, magnesium 1.2, total bili of 4.9, AST of 78, total protein of 6.4 with an albumin of 2.6. Alcohol was less than 10. Urine showed small amount of bilirubin and trace ketones. The patient did have an EKG done three days prior on admission showing normal sinus rhythm, LVH, nonspecific ST abnormality, and prolonged QT. A CAT scan of her head was done on 05/14/2018, it showed interval, almost complete resolving of the previously seen left posterior parietal occipital hematoma, residual subcentimeter focal high attenuation noted in the left occipital lobe adjacent to the midline, focal encephalomalacia at the region previously noted hematoma in left posterior parietal occipital lobe. No evidence of mass effect or midline shift. However, an MRI of the brain was done the next day which showed resolving large late subacute hematoma of the left frontal, parietal occipital lobe with mild surrounding vasogenic edema, now measuring 2.8 x 2.5 x 5.2 cm, small 0.7 x 1.8 cm subacute hematoma in the left occipital lobe, small area of petechial hemorrhage in the left anterior centrum semiovale. A chest x-ray was done three days prior. It was read as no active pulmonary disease, resolved infiltrates. ASSESSMENT: Syncope, loss of consciousness, questionable seizure activity, status post parietooccipital infarct/hemorrhage. New questionable hemorrhage in the brain, thrombocytopenia, esophageal varices, alcoholic cirrhosis, ethanol, history of abuse, smoker, degenerative joint disease, seizure prophylaxis, and history of respiratory failure. Also anemia and elevated bilirubin, elevated INR. PLAN: The plan for this patient after conversation with Dr. Medellin and Dr. Guillory and Dr. Thornton is to maintain her platelet count greater than 50,000. We will transfuse one bag of single-donor freezed platelets after premedication with Tylenol, Benadryl, Solu-Cortef as per Dr. Medellin's protocols with rechecking labs in the morning. We will watch the INR with consideration for treatment as indicated. There is no active bleeding at present except for items mentioned above. We will continue present medical regimen as per consultants. Recommendations with manual platelet count and INR to be checked daily for the next three days with her other medications to continue. This is a complex patient with a comprehensive medically necessary and appropriate visit carried out in excess of 90 minutes with the patient's questions answered to her satisfaction. We will also ask for consult with Dr. Vernon, gastrointestinal pmo consultant, for her abnormal INR and cirrhotic changes. Edward Patterson MD
[2018-05-18] MEDS: Sodium Chloride 0.9% 1,000 ML IV SCH ×2 (05:48→12:32)
[2018-05-18 07:19] LABS: EOS % 0.2 % (1.5-5.0); GRAN # 3.73 (1.4-6.5); GRAN % 89.3 % (50.0-68.0); HEMOGLOBIN 10.1 g/dL (12.0-16.0); LYMPH # 0.3 (1.2-3.4); LYMPH % 6.9 % (22.0-35.0); MEAN CELL VOLUME 94.7 fl (80.0-105.0); MEAN CORPUSCULAR HEMOGLOBIN 31.4 pg (25.0-35.0); MEAN CORPUSCULAR HGB CONC 33.1 g/dl (31.0-37.0); MONO # 0.2 (0.1-0.6); MONO % 3.6 % (1.0-6.0); RBC 3.22 10^6/uL (3.5-6.1); RED CELL DISTRIBUTION WIDTH 16.4 % (11.5-14.5); WHITE BLOOD COUNT 4.2 10^3/uL (4.5-11.0)
[2018-05-18 07:32] LABS: BLOOD UREA NITROGEN 7 mg/dL (7-21); GFR NON-AFRICAN AMERICAN > 60
[2018-05-18 07:33] LABS: ALB/GLOB RATIO 0.7 (1.1-1.8); ALBUMIN 2.7 g/dL (3.0-4.8); ALT/SGPT 53 U/L (7-56); AST/SGOT 65 U/L (14-36); CALCIUM 8.3 mg/dL (8.4-10.5)
[2018-05-18 07:36] LABS: PLATELET COUNT 30 10^3/uL (120.0-450.0)
[2018-05-18 07:55] LABS: INR 1.88; PROTHROMBIN TIME 21.9 SECONDS (9.4-12.5)
[2018-05-18 08:24] LABS: PLATELET COUNT MANUAL 36 K/mm3 (120-450)
--- NOTE | 2018-05-18 08:29 | CP.PCM.CON ---
<AvivaTa Magaly - Last Filed: 05/18/18 11:39> History of Present Illness - History of Present Illness History of Present Illness: PGY-2 GI consult note for Dr Vernon. 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 The that patient came back from Rehab two weeks ago after CVA and has been doing well, until he found her today. Patient states she feels disoriented, not sure if she had a syncopal episode, seizure or trauma. She however is AAOx3. She reports headache in ED. She denies focal weakness, visual changes, chest pain, SOB, slurred speech, diaphoresis, nausea, vomiting, abdominal pain, back pain, urinary/fecal incontinence, any other complaint. 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, seizure, peptic ulcer disease, osteoporosis PSHx: right hip replacement, banding of esophageal varicies in 2013 Allergies: PCN - rash SocialHx: smokes half a pack per day, quit drinking a few months ago - heavy drinker prior to that, lives at home with , denies illicit drugs Review of Systems - Constitutional Constitutional: absent: Chills, Fever - EENT Eyes: absent: Change in Vision - Cardiovascular Cardiovascular: absent: Chest Pain - Respiratory Respiratory: absent: Cough - Gastrointestinal Gastrointestinal: absent: Abdominal Pain, Bloating - Genitourinary Genitourinary: absent: Dysuria - Musculoskeletal Musculoskeletal: Back Pain - Integumentary Integumentary: absent: Bleeding Lesions - Hematologic/Lymphatic Hematologic: absent: Easy Bleeding Past Patient History - Infectious Disease Hx of Infectious Diseases: None - Tetanus Immunizations Tetanus Immunization: Unknown - Past Social History Smoking Status: Never Smoked - CARDIAC Hx Cardiac Disorders: No - PULMONARY Hx Respiratory Disorders: Yes Hx Sleep Apnea: Yes - NEUROLOGICAL Hx Neurological Disorder: Yes HX Cerebrovascular Accident: Yes (03/2018) Other/Comment: Spinal Stenosis , T7-8 Paracentral disc Protusion , C5-6 Disc Bulge , C3 Arthropy on right side - HEENT Hx HEENT Problems: No - RENAL Hx Chronic Kidney Disease: No - ENDOCRINE/METABOLIC Hx Endocrine Disorders: No - HEMATOLOGICAL/ONCOLOGICAL Hx Blood Disorders: Yes Hx AIDS: No Hx Anemia: Yes Hx Cancer: No Hx Chemotherapy: No Hx Cirrhosis: Yes (2013 dx Cirrhosis of the liver) Hx Hepatitis A: No Hx Hepatitis B: No Hx Hepatitis C: No Hx Human Immunodeficiency Virus (HIV): No Hx Metastesis: No Hx Shingles: No Other/Comment: Hx of peptic ulcers, Esophageal varices, erosive Esophagitis. - INTEGUMENTARY Hx Dermatological Problems: No - MUSCULOSKELETAL/RHEUMATOLOGICAL Hx Musculoskeletal Disorders: Yes Hx Arthritis: Yes Hx Degenerative Joint Disease: Yes Hx Falls: Yes Hx Herniated Disk: Yes Hx Osteoarthritis: Yes Hx Spinal Stenosis: Yes - GASTROINTESTINAL Hx Gastrointestinal Disorders: Yes Other/Comment: Alcohol Cirrhosis , Esophageal Varices , Peptic Ulcer , Erosive esophagitis - GENITOURINARY/GYNECOLOGICAL Hx Genitourinary Disorders: No - PSYCHIATRIC Hx Psychophysiologic Disorder: No - SURGICAL HISTORY Hx Surgeries: Yes Hx Musculoskeletal Surgery: Yes (right hip replacement) - ANESTHESIA Hx Anesthesia Reactions: No Hx Malignant Hyperthermia: No Meds Allergies/Adverse Reactions: Allergies Allergy/AdvReac Type Severity Reaction Status Date / Time Penicillins Allergy RASH Verified 03/21/18 13:59 - Medications Medications: Current Medications Acetaminophen (Tylenol 325mg Tab) 650 mg PO Q6H PRN PRN Reason: Pain, Mild (1-3) Acetaminophen (Tylenol 325mg Tab) 650 mg PO Q6H PRN PRN Reason: Fever >100.4 F Carvedilol (Coreg) 3.125 mg PO BID [facility] Last Admin: 05/15/18 18:02 Dose: Not Given Famotidine (Pepcid) 20 mg PO DAILY [facility] Last Admin: 05/17/18 09:58 Dose: Not Given Furosemide (Lasix) 20 mg PO DAILY [facility] Last Admin: 05/17/18 09:54 Dose: 20 mg Sodium Chloride (Sodium Chloride 0.9%) 1,000 mls @ 100 mls/hr IV .Q10H [facility] Last Admin: 10/29/18 05:48 Dose: 100 mls/hr Lactulose (Enulose) 20 gm PO BID [facility] Last Admin: 05/17/18 17:01 Dose: 20 gm Levetiracetam (Keppra) 1,000 mg PO Q12 [facility] Last Admin: 05/17/18 22:25 Dose: 1,000 mg Mupirocin (Bactroban Ointment) 0 gm NS BID [facility] Stop: 05/22/18 10:01 Potassium Phos/Sodium Phos (Neutra-Phos) 1 pkt PO TID [facility] Last Admin: 05/17/18 17:01 Dose: 1 pkt Simethicone (Mylicon Chew Tab) 80 mg PO PCHS PRN PRN Reason: GI distress Last Admin: 05/16/18 20:19 Dose: 80 mg Tramadol HCl (Ultram) 50 mg PO TID PRN PRN Reason: Pain, moderate (4-7) Last Admin: 05/17/18 10:33 Dose: 50 mg Physical Exam - Constitutional Appears: Well, Toxic - Head Exam Head Exam: absent: ATRAUMATIC, NORMAL INSPECTION Additional comments: + scalp hematoma left frontal area - Eye Exam Eye Exam: EOMI, Normal appearance, PERRL. absent: Scleral icterus - ENT Exam ENT Exam: Mucous Membranes Moist - Neck Exam Neck exam: Positive for: Normal Inspection. Negative for: Tenderness - Respiratory Exam Respiratory Exam: Clear to Auscultation Bilateral. absent: Rales, Rhonchi, Wheezes - Cardiovascular Exam Cardiovascular Exam: Tachycardia, REGULAR RHYTHM, +S1, +S2, Systolic Murmur. absent: JVD - GI/Abdominal Exam GI & Abdominal Exam: Normal Bowel Sounds. absent: Distended, Firm, Guarding, Rebound, Tenderness - Extremities Exam Extremities exam: Positive for: normal capillary refill, normal inspection. Negative for: calf tenderness - Neurological Exam Neurological exam: Alert, Oriented x3 Additional comments: slow though process, motor strength 5/5 on left side, motor strength 4/5 on right side, negative babinski - Skin Skin Exam: Normal Color, Warm Results - Vital Signs Recent Vital Signs: Last Vital Signs Temp 97.7 F 05/18/18 04:00 Pulse 97 H 05/18/18 06:00 Resp 24 05/18/18 06:00 BP 124/79 05/18/18 06:00 Pulse Ox 89 L 05/18/18 06:00 - Labs Result Diagrams: 05/18/18 05:40 05/18/18 05:40 Labs: Laboratory Results - last 24 hr 05/17/18 05/17/18 05/18/18 06:00 16:47 05:40 WBC 4.2 L RBC 3.22 L Hgb 10.1 L Hct 30.5 L MCV 94.7 MCH 31.4 MCHC 33.1 RDW 16.4 H Plt Count 30 L* Manual Plt Count 39 L* MPV 10.0 Gran % 89.3 H Lymph % (Auto) 6.9 L [place] % (Auto) 3.6 Eos % (Auto) 0.2 L Baso % (Auto) 0.0 Gran # 3.73 Lymph # (Auto) 0.3 L [place] # (Auto) 0.2 Eos # (Auto) 0.0 Baso # (Auto) 0.00 Platelet Evaluation Low PT INR Sodium Potassium Chloride Carbon Dioxide Anion Gap BUN Creatinine Est GFR ( Amer) Est GFR (Non-Af Amer) Random Glucose Calcium Total Bilirubin AST ALT Alkaline Phosphatase Total Protein Albumin Globulin Albumin/Globulin Ratio Blood Type O POSITIVE Antibody Screen Negative BBK History Checked Patient has bt 05/18/18 05/18/18 05:40 05:40 WBC RBC Hgb Hct MCV MCH MCHC RDW Plt Count Manual Plt Count MPV Gran % Lymph % (Auto) [place] % (Auto) Eos % (Auto) Baso % (Auto) Gran # Lymph # (Auto) [place] # (Auto) Eos # (Auto) Baso # (Auto) Platelet Evaluation PT 21.9 H INR 1.88 Sodium 137 Potassium 3.7 Chloride 110 H Carbon Dioxide 22 Anion Gap 9 L BUN 7 Creatinine 0.5 L Est GFR ( Amer) > 60 Est GFR (Non-Af Amer) > 60 Random Glucose 133 H Calcium 8.3 L Total Bilirubin 4.8 H AST 65 H ALT 53 Alkaline Phosphatase 111 Total Protein 6.5 Albumin 2.7 L Globulin 3.8 Albumin/Globulin Ratio 0.7 L Blood Type Antibody Screen BBK History Checked Assessment & Plan - Assessment and Plan (Free Text) Plan: Mrs Collado is a 63 year old female with PMHx of alcohol cirrhosis, esophageal varices, thrombocytopenia, spinal stenosis, arthritis, DJD, 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 GI has been consulted for cirrhosis and elevated INR: Cirrhosis -Meld score 19 -AST/ALT 105/61 on admission - downtrending -hep panel 03/2018 negative and hiv 03/2018 negative -thrombocytopenia likely 2/2 cirrhosis - heme/onc transfused 1 bag platelets 05/17 * Anti-platelet antibodies, BECKY negative were both negative on previous admission -CT abd/pelvis w/ iv contrast from 03/2018: * Cirrhosis with moderate ascites and splenomegaly -continue lactulose 20mg po bid and lasix 20mg po qd -coreg and pepcid are currently being held -f/u AFP marker -f/u ammonia level Elevated INR -no active bleeding Esophageal Varices -status post bands 2014 Colonic AVMs -colonoscopy 06/2015: single non-bleeding colonic angiodysplastic lesion in cecum, one 7mm polyp sigmoid colon, diverticulosis in sigmoid colon, internal hemorrhoids Previous GI procedures: -EGD 06/2015: large esophageal varices (banded), salmon-colored mucose suspicious for martinez's esophagus -colonoscopy 06/2015: single non-bleeding colonic angiodysplastic lesion in cecum, one 7mm polyp sigmoid colon, diverticulosis in sigmoid colon, internal hemorrhoids Case discussed with Dr Vernon. <Jean-Claude Vernon V - Last Filed: 05/18/18 22:30> Meds - Medications Medications: Current Medications Acetaminophen (Tylenol 325mg Tab) 650 mg PO Q6H PRN PRN Reason: Pain, Mild (1-3) Carvedilol (Coreg) 3.125 mg PO BID [facility] Last Admin: 05/15/18 18:02 Dose: Not Given Famotidine (Pepcid) 20 mg PO DAILY [facility] Last Admin: 05/17/18 09:58 Dose: Not Given Furosemide (Lasix) 20 mg PO DAILY [facility] Last Admin: 05/18/18 10:00 Dose: 20 mg Sodium Chloride (Sodium Chloride 0.9%) 1,000 mls @ 100 mls/hr IV .Q10H [facility] Last Admin: 05/18/18 12:32 Dose: 100 mls/hr Lactulose (Enulose) 20 gm PO BID [facility] Last Admin: 05/18/18 17:28 Dose: 20 gm Levetiracetam (Keppra) 1,000 mg PO Q12 [facility] Last Admin: 05/18/18 21:55 Dose: 1,000 mg Mupirocin (Bactroban Ointment) 0 gm NS BID [facility] Stop: 05/22/18 10:01 Last Admin: 05/18/18 17:28 Dose: 2 m.u. Potassium Phos/Sodium Phos (Neutra-Phos) 1 pkt PO TID [facility] Last Admin: 05/18/18 17:29 Dose: 1 pkt Simethicone (Mylicon Chew Tab) 80 mg PO PCHS PRN PRN Reason: GI distress Last Admin: 05/16/18 20:19 Dose: 80 mg Tramadol HCl (Ultram) 50 mg PO TID PRN PRN Reason: Pain, moderate (4-7) Last Admin: 05/18/18 21:54 Dose: 50 mg Results - Vital Signs Recent Vital Signs: Last Vital Signs Temp 98.6 F 05/18/18 18:21 Pulse 88 05/18/18 18:00 Resp 21 05/18/18 18:00 BP 131/70 05/18/18 18:00 Pulse Ox 96 05/18/18 18:00 - Labs Result Diagrams: 05/18/18 05:40 05/18/18 05:40 Labs: Laboratory Results - last 24 hr 05/18/18 05/18/18 05/18/18 05:40 05:40 05:40 WBC 4.2 L RBC 3.22 L Hgb 10.1 L Hct 30.5 L MCV 94.7 MCH 31.4 MCHC 33.1 RDW 16.4 H Plt Count 30 L* Manual Plt Count 36 L* MPV 10.0 Gran % 89.3 H Lymph % (Auto) 6.9 L [place] % (Auto) 3.6 Eos % (Auto) 0.2 L Baso % (Auto) 0.0 Gran # 3.73 Lymph # (Auto) 0.3 L [place] # (Auto) 0.2 Eos # (Auto) 0.0 Baso # (Auto) 0.00 PT 21.9 H INR 1.88 Sodium 137 Potassium 3.7 Chloride 110 H Carbon Dioxide 22 Anion Gap 9 L BUN 7 Creatinine 0.5 L Est GFR ( Amer) > 60 Est GFR (Non-Af Amer) > 60 Random Glucose 133 H Calcium 8.3 L Total Bilirubin 4.8 H AST 65 H ALT 53 Alkaline Phosphatase 111 Ammonia Total Protein 6.5 Albumin 2.7 L Globulin 3.8 Albumin/Globulin Ratio 0.7 L Alpha Fetoprotein 05/18/18 05/18/18 12:00 12:00 WBC RBC Hgb Hct MCV MCH MCHC RDW Plt Count Manual Plt Count MPV Gran % Lymph % (Auto) [place] % (Auto) Eos % (Auto) Baso % (Auto) Gran # Lymph # (Auto) [place] # (Auto) Eos # (Auto) Baso # (Auto) PT INR Sodium Potassium Chloride Carbon Dioxide Anion Gap BUN Creatinine Est GFR ( Amer) Est GFR (Non-Af Amer) Random Glucose Calcium Total Bilirubin AST ALT Alkaline Phosphatase Ammonia 21 Total Protein Albumin Globulin Albumin/Globulin Ratio Alpha Fetoprotein 6.3 Attending/Attestation - Attestation I have personally seen and examined this patient.: Yes I have fully participated in the care of the patient.: Yes I have reviewed all pertinent clinical information: Yes Notes (Text): This is an addendum to GI consult report dictated by the Drupal Programmer.The patient was seen and evaluated earlier. Medical records, lab studies, imagings were reviewed. Last 24 hours events reviewed. 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
--- NOTE | 2018-05-18 11:26 | CP.CCUPN ---
<Renard Lobo - Last Filed: 05/18/18 12:22> CCU Subjective - Physician Review Subjective (Free Text): CRITICAL CARE PROGRESS NOTE FOR DR. DANICA Lobo PGY-1 Pt seen and examined at bedside this am. No acute complaints. Pt is s/p 1u platelet transfusion. She is sitting up comfortably with no acute complaints. She has some edema in the R upper extremity. She denies numbness, tingling, visual changes, dysarthria. 12 point ROS is negative CCU Objective - Vital Signs / Intake & Output Intake and Output (Last 8hrs): Intake & Output 05/17/18 05/18/18 05/18/18 22:59 06:59 14:59 Intake Total 1920 1270 Output Total 400 300 Balance 1520 970 Weight 137 lb 6.4 oz Intake: IV 1200 1050 IVF 1200 1050 Oral 720 220 Output: Urine 400 300 Urine, Voided 400 300 Other: # Voids Urine, Voided 2 # Bowel Movements 2 1 - Physical Exam Head: Positive for: Normocephalic, Contusion (Left sided forehead with overlaying ecchymosis), Ecchymosis Pupils: Positive for: PERRL Extroacular Muscles: Positive for: EOMI Conjunctiva: Positive for: Normal Mouth: Positive for: Moist Mucous Membranes Neck: Positive for: Normal Range of Motion Respiratory/Chest: Positive for: Clear to Auscultation, Good Air Exchange. Negative for: Respiratory Distress, Accessory Muscle Use Cardiovascular: Positive for: Regular Rate and Rhythm, Normal S1, S2. Negative for: Murmurs Abdomen: Negative for: Tenderness, Distention, Peritoneal Signs Back: Positive for: Normal Inspection Upper Extremity: Positive for: Normal Inspection, Edema (RUE). Negative for: Cyanosis Lower Extremity: Positive for: Normal Inspection. Negative for: Edema Neurological: Positive for: GCS=15, CN II-XII Intact, Speech Normal, Motor Func Grossly Intact, Normal Sensory Function, Normal Cerebellar Funct, Norm Deep Te ndon Reflexes, Memory Normal, Normal 2Pt Descrimination Skin: Positive for: Warm, Dry, Normal Color. Negative for: Rashes Psychiatric: Positive for: Alert, Oriented x 3, Normal Insight, Normal Concentration - Medications Active Medications: Active Medications Generic Name Dose Route Start Last Admin Trade Name Freq PRN Reason Stop Dose Admin Acetaminophen 650 mg 05/14/18 22:51 Tylenol 325mg Tab PO Q6H PRN Pain, Mild (1-3) Carvedilol 3.125 mg 05/15/18 10:00 05/15/18 18:02 Coreg PO Not Given BID STEVEN Famotidine 20 mg 05/15/18 10:00 05/17/18 09:58 Pepcid PO Not Given DAILY STEVEN Furosemide 20 mg 05/15/18 10:00 05/17/18 09:54 Lasix PO 20 mg DAILY STEVEN Administration Sodium Chloride 1,000 mls @ 100 mls/hr 05/15/18 19:03 05/18/18 05:48 Sodium Chloride 0.9% IV 100 mls/hr .Q10H STEVEN Administration Lactulose 20 gm 05/15/18 10:00 05/17/18 17:01 Enulose PO 20 gm BID STEVEN Administration Levetiracetam 1,000 mg 05/14/18 23:00 05/17/18 22:25 Keppra PO 1,000 mg Q12 STEVEN Administration Mupirocin 0 gm 05/18/18 10:00 Bactroban Ointment NS 05/22/18 10:01 BID STEVEN Potassium Phos/Sodium Phos 1 pkt 05/17/18 14:00 05/17/18 17:01 Neutra-Phos PO 1 pkt TID STEVEN Administration Simethicone 80 mg 05/16/18 19:55 05/16/18 20:19 Mylicon Chew Tab PO 80 mg PCHS PRN Administration GI distress Tramadol HCl 50 mg 05/17/18 10:17 05/17/18 10:33 Ultram PO 50 mg TID PRN Administration Pain, moderate (4-7) - Patient Studies Lab Studies: Microbiology Studies 05/16/18 13:30 MRSA Culture (Admit) - Final Naris MRSA DETECTED Lab Studies 05/18/18 05/18/18 05/18/18 Range/Units 05:40 05:40 05:40 WBC 4.2 L (4.5-11.0) 10^3/uL RBC 3.22 L (3.5-6.1) 10^6/uL Hgb 10.1 L (12.0-16.0) g/dL Hct 30.5 L (36.0-48.0) % MCV 94.7 (80.0-105.0) fl MCH 31.4 (25.0-35.0) pg MCHC 33.1 (31.0-37.0) g/dl RDW 16.4 H (11.5-14.5) % Plt Count 30 L* (120.0-450.0) 10^3/uL Manual Plt Count 36 L* (120-450) K/mm3 MPV 10.0 (7.0-11.0) fl Gran % 89.3 H (50.0-68.0) % Lymph % (Auto) 6.9 L (22.0-35.0) % [place] % (Auto) 3.6 (1.0-6.0) % Eos % (Auto) 0.2 L (1.5-5.0) % Baso % (Auto) 0.0 (0.0-3.0) % Gran # 3.73 (1.4-6.5) Lymph # (Auto) 0.3 L (1.2-3.4) [place] # (Auto) 0.2 (0.1-0.6) Eos # (Auto) 0.0 (0.0-0.7) Baso # (Auto) 0.00 (0.0-2.0) K/mm3 PT 21.9 H (9.4-12.5) SECONDS INR 1.88 Sodium 137 (132-148) mmol/L Potassium 3.7 (3.6-5.0) mmol/L Chloride 110 H (98-107) mmol/L Carbon Dioxide 22 (21-33) mmol/L Anion Gap 9 L (10-20) BUN 7 (7-21) mg/dL Creatinine 0.5 L (0.7-1.2) mg/dl Est GFR ( Amer) > 60 Est GFR (Non-Af Amer) > 60 Random Glucose 133 H (70-110) mg/dL Calcium 8.3 L (8.4-10.5) mg/dL Total Bilirubin 4.8 H (0.2-1.3) mg/dL AST 65 H (14-36) U/L ALT 53 (7-56) U/L Alkaline Phosphatase 111 (38-126) U/L Total Protein 6.5 (5.8-8.3) g/dL Albumin 2.7 L (3.0-4.8) g/dL Globulin 3.8 gm/dL Albumin/Globulin Ratio 0.7 L (1.1-1.8) Blood Type Antibody Screen BBK History Checked 05/17/18 Range/Units 16:47 WBC (4.5-11.0) 10^3/uL RBC (3.5-6.1) 10^6/uL Hgb (12.0-16.0) g/dL Hct (36.0-48.0) % MCV (80.0-105.0) fl MCH (25.0-35.0) pg MCHC (31.0-37.0) g/dl RDW (11.5-14.5) % Plt Count (120.0-450.0) 10^3/uL Manual Plt Count (120-450) K/mm3 MPV (7.0-11.0) fl Gran % (50.0-68.0) % Lymph % (Auto) (22.0-35.0) % [place] % (Auto) (1.0-6.0) % Eos % (Auto) (1.5-5.0) % Baso % (Auto) (0.0-3.0) % Gran # (1.4-6.5) Lymph # (Auto) (1.2-3.4) [place] # (Auto) (0.1-0.6) Eos # (Auto) (0.0-0.7) Baso # (Auto) (0.0-2.0) K/mm3 PT (9.4-12.5) SECONDS INR Sodium (132-148) mmol/L Potassium (3.6-5.0) mmol/L Chloride (98-107) mmol/L Carbon Dioxide (21-33) mmol/L Anion Gap (10-20) BUN (7-21) mg/dL Creatinine (0.7-1.2) mg/dl Est GFR ( Amer) Est GFR (Non-Af Amer) Random Glucose (70-110) mg/dL Calcium (8.4-10.5) mg/dL Total Bilirubin (0.2-1.3) mg/dL AST (14-36) U/L ALT (7-56) U/L Alkaline Phosphatase (38-126) U/L Total Protein (5.8-8.3) g/dL Albumin (3.0-4.8) g/dL Globulin gm/dL Albumin/Globulin Ratio (1.1-1.8) Blood Type O POSITIVE Antibody Screen Negative BBK History Checked Patient has bt Laboratory Results - last 24 hr 05/17/18 05/18/18 05/18/18 16:47 05:40 05:40 WBC 4.2 L RBC 3.22 L Hgb 10.1 L Hct 30.5 L MCV 94.7 MCH 31.4 MCHC 33.1 RDW 16.4 H Plt Count 30 L* Manual Plt Count 36 L* MPV 10.0 Gran % 89.3 H Lymph % (Auto) 6.9 L [place] % (Auto) 3.6 Eos % (Auto) 0.2 L Baso % (Auto) 0.0 Gran # 3.73 Lymph # (Auto) 0.3 L [place] # (Auto) 0.2 Eos # (Auto) 0.0 Baso # (Auto) 0.00 PT INR Sodium 137 Potassium 3.7 Chloride 110 H Carbon Dioxide 22 Anion Gap 9 L BUN 7 Creatinine 0.5 L Est GFR ( Amer) > 60 Est GFR (Non-Af Amer) > 60 Random Glucose 133 H Calcium 8.3 L Total Bilirubin 4.8 H AST 65 H ALT 53 Alkaline Phosphatase 111 Total Protein 6.5 Albumin 2.7 L Globulin 3.8 Albumin/Globulin Ratio 0.7 L Blood Type O POSITIVE Antibody Screen Negative BBK History Checked Patient has bt 05/18/18 05:40 WBC RBC Hgb Hct MCV MCH MCHC RDW Plt Count Manual Plt Count MPV Gran % Lymph % (Auto) [place] % (Auto) Eos % (Auto) Baso % (Auto) Gran # Lymph # (Auto) [place] # (Auto) Eos # (Auto) Baso # (Auto) PT 21.9 H INR 1.88 Sodium Potassium Chloride Carbon Dioxide Anion Gap BUN Creatinine Est GFR ( Amer) Est GFR (Non-Af Amer) Random Glucose Calcium Total Bilirubin AST ALT Alkaline Phosphatase Total Protein Albumin Globulin Albumin/Globulin Ratio Blood Type Antibody Screen BBK History Checked Fingerstick Blood Sugar Results: 160 Review of Systems - Review of Systems Review of Systems: per HPI Critical Care Progress Note - Nutrition Nutrition: Nutrition Category Date Time Status Regular Diet [DIET] Diets 05/15/18 Breakfast Ordered Assessment/Plan - Assessment and Plan (Free Text) Assessment: 63 y/o F with PMHx of ETOH abuse, cirrhosis, esophageal varices, cervical arthritis, seizure disorder presented to ED after she was found by after a fall. CT done in ER revealed resolving parieto-occipital hematoma. Follow-up MRI confirmed the findings along with a smaller hematoma in the L occipital lobe. She has a history of thrombocytopenia, and was transfused 1u of platelets. She Plan: Neuro: AxO x 3 No FND CN 2-12 intact Syncopal episode w/ mild concussion maintain BP 130-140s/70-80s Hx of seizure disorder continue keppra 1000mg IV 12h for seizure prophylaxis Hx of cirrhosis monitor INR/PTT platelets. CT head at the time revealed interval almost complete resolving of the previously seen left posterior parietal occipital hematoma. No evidence of significant mass effect or midline shift. Brain MRI revealed 2.8 x 2.5 x 5.2cm resolving large late subacute hematoma in the L parieto-occipital lobe with mild surrounding vasogenic edema. A smaller 0.7 x 1.8cm subacute was noted in the L occipital lobe. Small area of hemorrhage in the L anterior centrum semiovale Cardio: Tachycardic RR Normotensive maintain BP in 130s-140s/70-80 Maintain MAP >65 Pulm: CTA Saturating well on RA GI: chronic thrombocytopenia cirrhosis lactulose daily hx of esophageal varices carvedilol bid GI ppx: famotidine Regular diet f/u afp/ammonia : lasix daily Heme: Thrombocytopenia plt: 30 transfuse 1 u plt H/H stable coags stable ID: Afebrile tachycardic MRSA nares (+) DVT/GI Ppx: pepcid Dispo: Transfer to telemetry Case seen, examined and discussed with attending physician, Dr. Orosco <Dylan Orosco - Last Filed: 05/18/18 13:04> CCU Objective - Vital Signs / Intake & Output Vital Signs (Last 4 hours): Vital Signs Temp BP 05/18/18 12:26 99.1 F 05/18/18 10:00 124/79 Intake and Output (Last 8hrs): Intake & Output 05/17/18 05/18/18 05/18/18 22:59 06:59 14:59 Intake Total 1920 1270 Output Total 400 300 Balance 1520 970 Weight 137 lb 6.4 oz Intake: IV 1200 1050 IVF 1200 1050 Oral 720 220 Output: Urine 400 300 Urine, Voided 400 300 Other: # Voids Urine, Voided 2 # Bowel Movements 2 1 - Medications Active Medications: Active Medications Generic Name Dose Route Start Last Admin Trade Name Freq PRN Reason Stop Dose Admin Acetaminophen 650 mg 05/14/18 22:51 Tylenol 325mg Tab PO Q6H PRN Pain, Mild (1-3) Carvedilol 3.125 mg 05/15/18 10:00 05/15/18 18:02 Coreg PO Not Given BID STEVEN Famotidine 20 mg 05/15/18 10:00 05/17/18 09:58 Pepcid PO Not Given DAILY STEVEN Furosemide 20 mg 05/15/18 10:00 05/18/18 10:00 Lasix PO 20 mg DAILY STEVEN Administration Sodium Chloride 1,000 mls @ 100 mls/hr 05/15/18 19:03 05/18/18 12:32 Sodium Chloride 0.9% IV 100 mls/hr .Q10H STEVEN Administration Lactulose 20 gm 05/15/18 10:00 05/18/18 12:32 Enulose PO 20 gm BID STEVEN Administration Levetiracetam 1,000 mg 05/14/18 23:00 05/18/18 10:00 Keppra PO 1,000 mg Q12 STEVEN Administration Mupirocin 0 gm 05/18/18 10:00 05/18/18 12:25 Bactroban Ointment NS 05/22/18 10:01 2 m.u. BID STEVEN Administration Potassium Phos/Sodium Phos 1 pkt 05/17/18 14:00 05/18/18 12:32 Neutra-Phos PO 1 pkt TID STEVEN Administration Simethicone 80 mg 05/16/18 19:55 05/16/18 20:19 Mylicon Chew Tab PO 80 mg PCHS PRN Administration GI distress Tramadol HCl 50 mg 05/17/18 10:17 05/17/18 10:33 Ultram PO 50 mg TID PRN Administration Pain, moderate (4-7) - Patient Studies Lab Studies: Microbiology Studies 05/16/18 13:30 MRSA Culture (Admit) - Final Naris MRSA DETECTED Lab Studies 05/18/18 05/18/18 05/18/18 Range/Units 12:00 05:40 05:40 WBC (4.5-11.0) 10^3/uL RBC (3.5-6.1) 10^6/uL Hgb (12.0-16.0) g/dL Hct (36.0-48.0) % MCV (80.0-105.0) fl MCH (25.0-35.0) pg MCHC (31.0-37.0) g/dl RDW (11.5-14.5) % Plt Count (120.0-450.0) 10^3/uL Manual Plt Count (120-450) K/mm3 MPV (7.0-11.0) fl Gran % (50.0-68.0) % Lymph % (Auto) (22.0-35.0) % [place] % (Auto) (1.0-6.0) % Eos % (Auto) (1.5-5.0) % Baso % (Auto) (0.0-3.0) % Gran # (1.4-6.5) Lymph # (Auto) (1.2-3.4) [place] # (Auto) (0.1-0.6) Eos # (Auto) (0.0-0.7) Baso # (Auto) (0.0-2.0) K/mm3 PT 21.9 H (9.4-12.5) SECONDS INR 1.88 Sodium 137 (132-148) mmol/L Potassium 3.7 (3.6-5.0) mmol/L Chloride 110 H (98-107) mmol/L Carbon Dioxide 22 (21-33) mmol/L Anion Gap 9 L (10-20) BUN 7 (7-21) mg/dL Creatinine 0.5 L (0.7-1.2) mg/dl Est GFR ( Amer) > 60 Est GFR (Non-Af Amer) > 60 Random Glucose 133 H (70-110) mg/dL Calcium 8.3 L (8.4-10.5) mg/dL Total Bilirubin 4.8 H (0.2-1.3) mg/dL AST 65 H (14-36) U/L ALT 53 (7-56) U/L Alkaline Phosphatase 111 (38-126) U/L Ammonia 21 (9-33) umol/L Total Protein 6.5 (5.8-8.3) g/dL Albumin 2.7 L (3.0-4.8) g/dL Globulin 3.8 gm/dL Albumin/Globulin Ratio 0.7 L (1.1-1.8) Blood Type Antibody Screen BBK History Checked 05/18/18 05/17/18 Range/Units 05:40 16:47 WBC 4.2 L (4.5-11.0) 10^3/uL RBC 3.22 L (3.5-6.1) 10^6/uL Hgb 10.1 L (12.0-16.0) g/dL Hct 30.5 L (36.0-48.0) % MCV 94.7 (80.0-105.0) fl MCH 31.4 (25.0-35.0) pg MCHC 33.1 (31.0-37.0) g/dl RDW 16.4 H (11.5-14.5) % Plt Count 30 L* (120.0-450.0) 10^3/uL Manual Plt Count 36 L* (120-450) K/mm3 MPV 10.0 (7.0-11.0) fl Gran % 89.3 H (50.0-68.0) % Lymph % (Auto) 6.9 L (22.0-35.0) % [place] % (Auto) 3.6 (1.0-6.0) % Eos % (Auto) 0.2 L (1.5-5.0) % Baso % (Auto) 0.0 (0.0-3.0) % Gran # 3.73 (1.4-6.5) Lymph # (Auto) 0.3 L (1.2-3.4) [place] # (Auto) 0.2 (0.1-0.6) Eos # (Auto) 0.0 (0.0-0.7) Baso # (Auto) 0.00 (0.0-2.0) K/mm3 PT (9.4-12.5) SECONDS INR Sodium (132-148) mmol/L Potassium (3.6-5.0) mmol/L Chloride (98-107) mmol/L Carbon Dioxide (21-33) mmol/L Anion Gap (10-20) BUN (7-21) mg/dL Creatinine (0.7-1.2) mg/dl Est GFR ( Amer) Est GFR (Non-Af Amer) Random Glucose (70-110) mg/dL Calcium (8.4-10.5) mg/dL Total Bilirubin (0.2-1.3) mg/dL AST (14-36) U/L ALT (7-56) U/L Alkaline Phosphatase (38-126) U/L Ammonia (9-33) umol/L Total Protein (5.8-8.3) g/dL Albumin (3.0-4.8) g/dL Globulin gm/dL Albumin/Globulin Ratio (1.1-1.8) Blood Type O POSITIVE Antibody Screen Negative BBK History Checked Patient has bt Laboratory Results - last 24 hr 05/17/18 05/18/18 05/18/18 16:47 05:40 05:40 WBC 4.2 L RBC 3.22 L Hgb 10.1 L Hct 30.5 L MCV 94.7 MCH 31.4 MCHC 33.1 RDW 16.4 H Plt Count 30 L* Manual Plt Count 36 L* MPV 10.0 Gran % 89.3 H Lymph % (Auto) 6.9 L [place] % (Auto) 3.6 Eos % (Auto) 0.2 L Baso % (Auto) 0.0 Gran # 3.73 Lymph # (Auto) 0.3 L [place] # (Auto) 0.2 Eos # (Auto) 0.0 Baso # (Auto) 0.00 PT INR Sodium 137 Potassium 3.7 Chloride 110 H Carbon Dioxide 22 Anion Gap 9 L BUN 7 Creatinine 0.5 L Est GFR ( Amer) > 60 Est GFR (Non-Af Amer) > 60 Random Glucose 133 H Calcium 8.3 L Total Bilirubin 4.8 H AST 65 H ALT 53 Alkaline Phosphatase 111 Ammonia Total Protein 6.5 Albumin 2.7 L Globulin 3.8 Albumin/Globulin Ratio 0.7 L Blood Type O POSITIVE Antibody Screen Negative BBK History Checked Patient has bt 05/18/18 05/18/18 05:40 12:00 WBC RBC Hgb Hct MCV MCH MCHC RDW Plt Count Manual Plt Count MPV Gran % Lymph % (Auto) [place] % (Auto) Eos % (Auto) Baso % (Auto) Gran # Lymph # (Auto) [place] # (Auto) Eos # (Auto) Baso # (Auto) PT 21.9 H INR 1.88 Sodium Potassium Chloride Carbon Dioxide Anion Gap BUN Creatinine Est GFR ( Amer) Est GFR (Non-Af Amer) Random Glucose Calcium Total Bilirubin AST ALT Alkaline Phosphatase Ammonia 21 Total Protein Albumin Globulin Albumin/Globulin Ratio Blood Type Antibody Screen BBK History Checked Critical Care Progress Note - Nutrition Nutrition: Nutrition Category Date Time Status Regular Diet [DIET] Diets 05/15/18 Breakfast Ordered Assessment/Plan - Assessment and Plan (Free Text) Plan: Patient seen and examined on rounds, with resident, agree with note with following additions/exceptions: Patient is 63yo female with PMHx of ETOH abuse, cirrhosis, esophageal varices, cervical arthritis, seizure disorder presented to ED after she was found by after a fall, CT done in ER revealed resolving parieto-occipital hematoma Currently afebrile, BP stable, comfortable in NAD, AAOx3 Labs, imaging, chart reviewed Non focal neuro exam Has been monitored in ICU for >48h ESLD CIrrhosis Thrombocytopenia Parietal occipital hematoma, resolving Recommend: - supp o2 as needed, duonebs PRN, IS, oob to chair - NO ID issues - Monitor platelets - monitor LFTs - Lactulose, Rifaximin - follow up GI - Follow up neurology - Keppra 750mg PO BID - ECHO - GI ppx - DVT Ppx, SCDs - Transfer to telemetry
--- NOTE | 2018-05-18 11:41 | US ---
PROCEDURE: Right upper extremity venous US CLINICAL HISTORY: Arm pain and swelling Evaluate for deep venous thrombosis. PHYSICIAN(S): Matt Wong M.D FINDINGS: The visualized rightinternal jugular vein is sonographically normal and compressible. No evidence of obstruction or thrombus is seen. The visualized segments of the right subclavian vein are patent with normal waveforms. No sonographic evidence of obstruction or thrombosis is seen. The visualized deep venous system of the proximal right upper extremity is sonographically normal and compressible. IMPRESSION: 1. No sonographic evidence for deep venous thrombosis in the visualized segments of the right upper extremity.
[2018-05-18] MEDS: Mupirocin 2% Ointment 15 GM TUBE NS SCH ×2 (12:25→17:28)
[2018-05-18] MEDS: Potassium & Sodium Phosphate PO SCH ×3 (12:32→17:29)
--- NOTE | 2018-05-18 14:24 | CP.PCM.PN ---
Subjective - Date & Time of Evaluation Date of Evaluation: 05/18/18 Time of Evaluation: 14:20 - Subjective Subjective: Hematology/Oncology Progress Note (Dr. Medellin's Service) Patient seen and assessed at bedside in ICU. No acute events noted overnight. Patient denies any complaints at this time including fevers, chills, headache, chest pain, SOB, abdominal pain, N/V/D/C, changes in urine output, skin changes or any numbness/tingling of any extremity. Objective - Vital Signs/Intake and Output Vital Signs (last 24 hours): Temp Pulse Resp BP Pulse Ox 99.1 F 97 H 24 124/79 89 L 05/18/18 12:26 05/18/18 06:00 05/18/18 06:00 05/18/18 10:00 05/18/18 06:00 Intake and Output: 05/18/18 05/18/18 06:59 18:59 Intake Total 1270 Output Total 300 Balance 970 - Medications Medications: Current Medications Acetaminophen (Tylenol 325mg Tab) 650 mg PO Q6H PRN PRN Reason: Pain, Mild (1-3) Carvedilol (Coreg) 3.125 mg PO BID [facility] Last Admin: 05/15/18 18:02 Dose: Not Given Famotidine (Pepcid) 20 mg PO DAILY [facility] Last Admin: 05/17/18 09:58 Dose: Not Given Furosemide (Lasix) 20 mg PO DAILY [facility] Last Admin: 05/18/18 10:00 Dose: 20 mg Sodium Chloride (Sodium Chloride 0.9%) 1,000 mls @ 100 mls/hr IV .Q10H [facility] Last Admin: 05/18/18 12:32 Dose: 100 mls/hr Lactulose (Enulose) 20 gm PO BID [facility] Last Admin: 05/18/18 12:32 Dose: 20 gm Levetiracetam (Keppra) 1,000 mg PO Q12 [facility] Last Admin: 05/18/18 10:00 Dose: 1,000 mg Mupirocin (Bactroban Ointment) 0 gm NS BID [facility] Stop: 05/22/18 10:01 Last Admin: 05/18/18 12:25 Dose: 2 m.u. Potassium Phos/Sodium Phos (Neutra-Phos) 1 pkt PO TID [facility] Last Admin: 05/18/18 12:32 Dose: 1 pkt Simethicone (Mylicon Chew Tab) 80 mg PO PCHS PRN PRN Reason: GI distress Last Admin: 05/16/18 20:19 Dose: 80 mg Tramadol HCl (Ultram) 50 mg PO TID PRN PRN Reason: Pain, moderate (4-7) Last Admin: 05/17/18 10:33 Dose: 50 mg - Labs Labs: 05/18/18 05:40 05/18/18 05:40 PT 21.9 SECONDS (9.4-12.5) H 05/18/18 05:40 INR 1.88 05/18/18 05:40 APTT 35.6 Seconds (25.1-36.5) 05/16/18 16:45 - Constitutional Appears: Non-toxic, No Acute Distress - Head Exam Head Exam: absent: ATRAUMATIC (Bruising noted over right orbit) - Eye Exam Eye Exam: EOMI, Normal appearance Pupil Exam: NORMAL ACCOMODATION - ENT Exam ENT Exam: Mucous Membranes Moist - Neck Exam Neck Exam: Full ROM. absent: Lymphadenopathy - Respiratory Exam Respiratory Exam: Clear to Ausculation Bilateral, NORMAL BREATHING PATTERN. absent: Accessory Muscle Use, Decreased Breath Sounds, Rales, Rhonchi, Wheezes, Respiratory Distress - Cardiovascular Exam Cardiovascular Exam: REGULAR RHYTHM, RRR, +S1, +S2 - GI/Abdominal Exam GI & Abdominal Exam: Soft, Normal Bowel Sounds. absent: Tenderness - Extremities Exam Extremities Exam: Full ROM, Normal Capillary Refill, Normal Inspection. absent: Calf Tenderness, Joint Swelling, Pedal Edema, Tenderness - Neurological Exam Neurological Exam: Alert, Awake, Oriented x3 - Psychiatric Exam Psychiatric exam: Normal Affect, Normal Mood - Skin Skin Exam: Dry, Intact, Normal Color, Warm. absent: Petechiae Assessment and Plan - Assessment and Plan (Free Text) Assessment: 63 year old female with a past medical history significant for alcohol abuse with cirrhosis and esophageal varices, cervical arthritis, and unspecified seizure disorder who presented after she was found by after a fall. CT Head showed resolving parieto-occipital hematoma. A follow-up MRI confirmed the findings along with a smaller hematoma in the L occipital lobe. She has a history of thrombocytopenia, and has been transfused one units of platelets without appropriate response in manual platelet count. She was also found to have an elevated INR and will receive one unit of FFP. Plan: -Manual platelet count (05/18): 36 -S/P one unit of platelets -INR (05/18): 1.88 -Will give one additional unit of platelets as well as one unit of FFP -Tylenol, Benadryl and Solu-Cortef to be given prior to infusion as ordered -Daily CBC with differential, manual platelet count and coagulation profiles -Further recommendations as per Dr. Medellin. Patient seen and case discussed with attending, Dr. Medellin. Javed Amos PGY2
[2018-05-19] MEDS: Sodium Chloride 0.9% 1,000 ML IV SCH ×2 (03:15→13:00)
[2018-05-19 06:43] LABS: INR 1.7; PROTHROMBIN TIME 19.8 SECONDS (9.4-12.5)
[2018-05-19 06:50] LABS: ALB/GLOB RATIO 0.7 (1.1-1.8); ALBUMIN 2.8 g/dL (3.0-4.8); ALT/SGPT 47 U/L (7-56); AST/SGOT 60 U/L (14-36); BLOOD UREA NITROGEN 8 mg/dL (7-21); CALCIUM 8.6 mg/dL (8.4-10.5); GFR NON-AFRICAN AMERICAN > 60
[2018-05-19 06:52] LABS: EOS # 0.1 (0.0-0.7); EOS % 0.7 % (1.5-5.0); GRAN # 5.89 (1.4-6.5); HEMOGLOBIN 9.5 g/dL (12.0-16.0); LYMPH # 0.7 (1.2-3.4); LYMPH % 9.6 % (22.0-35.0); MEAN CELL VOLUME 95.6 fl (80.0-105.0); MEAN CORPUSCULAR HEMOGLOBIN 32.2 pg (25.0-35.0); MEAN CORPUSCULAR HGB CONC 33.7 g/dl (31.0-37.0); MEAN PLATELET VOLUME 10.4 fl (7.0-11.0); MONO # 0.6 (0.1-0.6); MONO % 7.7 % (1.0-6.0); RBC 2.95 10^6/uL (3.5-6.1); RED CELL DISTRIBUTION WIDTH 16.7 % (11.5-14.5); WHITE BLOOD COUNT 7.2 10^3/uL (4.5-11.0)
[2018-05-19 07:06] LABS: PLATELET COUNT 35 10^3/uL (120.0-450.0)
[2018-05-19] MEDS ORDERED: Potassium Chloride 20 mEq ER Tab PO STA (08:09)
[2018-05-19] MEDS ORDERED: Magnesium Sulfate 2 GM in Sodium Chloride 0.9% 100 ML IVPB ONE (08:10)
[2018-05-19] MEDS ORDERED: Magnesium Sulfate 2 gm/50 ml 2 GM/50 ML BAG IVPB ONE (08:19)
--- NOTE | 2018-05-19 09:04 | US ---
PROCEDURE: Portal vein duplex ultrasound. CLINICAL HISTORY: Cirrhosis. Deteriorating liver function. Evaluate for portal vein thrombosis. PHYSICIAN(S): Matt Wong M.D. FINDINGS: The liver parenchyma is heterogeneous with a nodular contour, consistent with cirrhosis. No obvious mass is identified on these limited images. The extrahepatic portal vein is patent with hepatopetal flow. The hepatic artery is prominent and patent. Limited imaging of the central patent veins are patent. The spleen is enlarged. There is a small amount of ascites in the upper abdomen IMPRESSION: 1. Patent portal vein with hepatopetal flow.
[2018-05-19 09:32] LABS: PLATELET COUNT MANUAL 36 K/mm3 (120-450)
--- NOTE | 2018-05-19 09:38 | CP.PCM.PN ---
<Ta Chicas - Last Filed: 05/19/18 11:08> Subjective - Date & Time of Evaluation Date of Evaluation: 05/19/18 Time of Evaluation: 09:32 - Subjective Subjective: PGY-2 GI progress note for Dr Vernon. No acute events noted overnight. Patient appeared comfortable in bed. Denied any abdominal discomfort or pain. Stated she had left upper quadrant pain yesterday but this had resolved. Objective - Vital Signs/Intake and Output Vital Signs (last 24 hours): Temp Pulse Resp BP Pulse Ox 98.5 F 84 20 132/71 94 L 05/19/18 00:00 05/19/18 06:00 05/19/18 00:00 05/19/18 00:00 05/19/18 00:00 Intake and Output: 05/19/18 05/19/18 06:59 18:59 Intake Total 1500 Balance 1500 - Medications Medications: Current Medications Acetaminophen (Tylenol 325mg Tab) 650 mg PO Q6H PRN PRN Reason: Pain, Mild (1-3) Carvedilol (Coreg) 3.125 mg PO BID [facility] Last Admin: 05/15/18 18:02 Dose: Not Given Famotidine (Pepcid) 20 mg PO DAILY [facility] Last Admin: 05/17/18 09:58 Dose: Not Given Furosemide (Lasix) 20 mg PO DAILY [facility] Last Admin: 05/18/18 10:00 Dose: 20 mg Sodium Chloride (Sodium Chloride 0.9%) 1,000 mls @ 100 mls/hr IV .Q10H [facility] Last Admin: 05/19/18 03:15 Dose: Not Given Lactulose (Enulose) 20 gm PO BID [facility] Last Admin: 05/18/18 17:28 Dose: 20 gm Levetiracetam (Keppra) 1,000 mg PO Q12 [facility] Last Admin: 05/18/18 21:55 Dose: 1,000 mg Mupirocin (Bactroban Ointment) 0 gm NS BID [facility] Stop: 05/22/18 10:01 Last Admin: 05/18/18 17:28 Dose: 2 m.u. Potassium Phos/Sodium Phos (Neutra-Phos) 1 pkt PO TID [facility] Last Admin: 05/18/18 17:29 Dose: 1 pkt Simethicone (Mylicon Chew Tab) 80 mg PO PCHS PRN PRN Reason: GI distress Last Admin: 05/16/18 20:19 Dose: 80 mg Tramadol HCl (Ultram) 50 mg PO TID PRN PRN Reason: Pain, moderate (4-7) Last Admin: 05/18/18 21:54 Dose: 50 mg - Labs Labs: 05/19/18 05:40 05/19/18 05:40 PT 19.8 SECONDS (9.4-12.5) H 05/19/18 05:40 INR 1.70 05/19/18 05:40 APTT 35.6 Seconds (25.1-36.5) 05/16/18 16:45 - Additional Findings Additional findings: - Constitutional Appears: Well, Toxic - Head Exam Head Exam: absent: ATRAUMATIC, NORMAL INSPECTION Additional comments: + scalp hematoma left frontal area - Eye Exam Eye Exam: EOMI, Normal appearance, PERRL. absent: Scleral icterus - ENT Exam ENT Exam: Mucous Membranes Moist - Neck Exam Neck exam: Positive for: Normal Inspection. Negative for: Tenderness - Respiratory Exam Respiratory Exam: Clear to Auscultation Bilateral. absent: Rales, Rhonchi, Wheezes - Cardiovascular Exam Cardiovascular Exam: Tachycardia, REGULAR RHYTHM, +S1, +S2, Systolic Murmur. absent: JVD - GI/Abdominal Exam GI & Abdominal Exam: Normal Bowel Sounds. absent: Distended, Firm, Guarding, Rebound, Tenderness - Extremities Exam Extremities exam: Positive for: normal capillary refill, normal inspection. 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 GI has been consulted for cirrhosis and elevated INR: Cirrhosis Ascites -Meld score 19 -AST/ALT 105/61 on admission - downtrending -hep panel 03/2018 negative and hiv 03/2018 negative -thrombocytopenia likely 2/2 cirrhosis - heme/onc transfused 2 bags platelets and 1 bag FFP * Anti-platelet antibodies, BECKY negative were both negative on previous admission -CT abd/pelvis w/ iv contrast from 03/2018: * Cirrhosis with moderate ascites and splenomegaly -continue lactulose 20mg po bid -discontinue lasix 20mg po qd and instead start aldactone 50mg po qd to treat ascites -start carafate 1g po bid to treat gerd -coreg and pepcid are currently being held -AFP marker normal -ammonia level normal -Portal vein duplex ultrasound 05/19 showed patent portal vein; liver parechyma consistent with cirrhosis, small ascites in upper abdomen Elevated INR -no active bleeding Esophageal Varices -status post bands 2014 Colonic AVMs -colonoscopy 06/2015: single non-bleeding colonic angiodysplastic lesion in cecum, one 7mm polyp sigmoid colon, diverticulosis in sigmoid colon, internal hemorrhoids Previous GI procedures: -EGD 06/2015: large esophageal varices (banded), salmon-colored mucose suspicious for martinez's esophagus -colonoscopy 06/2015: single non-bleeding colonic angiodysplastic lesion in cecum, one 7mm polyp sigmoid colon, diverticulosis in sigmoid colon, internal hemorrhoids Case discussed with Dr Vernon. <Jean-Claude Vernon V - Last Filed: 05/19/18 23:34> Objective - Vital Signs/Intake and Output Vital Signs (last 24 hours): Temp Pulse Resp BP Pulse Ox 98.5 F 126 H 20 127/70 94 L 05/19/18 00:00 05/19/18 15:00 05/19/18 00:00 05/19/18 19:10 05/19/18 00:00 Intake and Output: 05/19/18 05/20/18 18:59 06:59 Intake Total 1560 Balance 1560 - Medications Medications: Current Medications Acetaminophen (Tylenol 325mg Tab) 650 mg PO Q6H PRN PRN Reason: Pain, Mild (1-3) Last Admin: 05/19/18 22:12 Dose: 650 mg Carvedilol (Coreg) 3.125 mg PO BID [facility] Last Admin: 05/15/18 18:02 Dose: Not Given Famotidine (Pepcid) 20 mg PO DAILY [facility] Last Admin: 05/17/18 09:58 Dose: Not Given Sodium Chloride (Sodium Chloride 0.9%) 1,000 mls @ 100 mls/hr IV .Q10H [facility] Last Admin: 05/19/18 13:00 Dose: Not Given Lactulose (Enulose) 20 gm PO BID [facility] Last Admin: 05/19/18 17:11 Dose: 20 gm Levalbuterol HCl (Xopenex) 0.63 mg IH [id number] PRN PRN Reason: Shortness of Breath Levetiracetam (Keppra) 1,000 mg PO Q12 [facility] Last Admin: 05/19/18 22:09 Dose: 1,000 mg Mupirocin (Bactroban Ointment) 0 gm NS BID [facility] Stop: 05/22/18 10:01 Last Admin: 05/19/18 17:12 Dose: 2 m.u. Potassium Phos/Sodium Phos (Neutra-Phos) 1 pkt PO TID [facility] Last Admin: 05/19/18 17:11 Dose: 1 pkt Simethicone (Mylicon Chew Tab) 80 mg PO HS PRN PRN Reason: GI distress Last Admin: 05/16/18 20:19 Dose: 80 mg Spironolactone (Aldactone) 50 mg PO DAILY [facility] Sucralfate (Carafate Oral Susp) 1 gm PO 0600,1600 [facility] Last Admin: 05/19/18 17:11 Dose: 1 gm Tramadol HCl (Ultram) 50 mg PO TID PRN PRN Reason: Pain, moderate (4-7) Last Admin: 05/18/18 21:54 Dose: 50 mg - Labs Labs: 05/19/18 05:40 05/19/18 05:40 PT 19.8 SECONDS (9.4-12.5) H 05/19/18 05:40 INR 1.70 05/19/18 05:40 APTT 35.6 Seconds (25.1-36.5) 05/16/18 16:45 Attending/Attestation - Attestation I have personally seen and examined this patient.: Yes I have fully participated in the care of the patient.: Yes I have reviewed all pertinent clinical information, including history, physical exam and plan: Yes Notes (Text): This is an addendum to GI followup report dictated by the Parent Partner. The patient was seen and evaluated earlier. Medical records, lab studies, imagings were reviewed. Last 24 hours events reviewed. Agreed with the above treatment plan as outlined in Parent Partner 's notes with the addition of the following Patient received additional platelet transfusion Neurology and Dr. Bass note reviewed No melena or BRPR On examination abdomen softly distended Mild tenderness right upper quadrant Would consider changing Lasix maintenance dose of 20 mg to aldactone 50 mg PO daily Patient did receive additional dose of Lasix for PVC today 05/19/18 23:22
[2018-05-19] MEDS: Mupirocin 2% Ointment 15 GM TUBE NS SCH ×2 (09:44→17:12)
[2018-05-19] MEDS: Potassium & Sodium Phosphate PO SCH ×3 (09:45→17:11)
--- NOTE | 2018-05-19 12:43 | PN ---
DATE: 05/18/2018 SUBJECTIVE: The patient is a 63-year-old female who presented to the emergency room after being found on the floor of the kitchen by her . She has a past medical history positive for alcoholic cirrhosis, esophageal varices, peptic ulcer disease, erosive gastritis, discopathy of T7-T8 and C5-C6. She is status post right hip replacement. She suffered a posterior parietal occipital bleed about 1 month ago from which she did well. She was released from acute rehab facility, was home and doing well. However, the patient's returned to work, however, upon returning home, found the patient on the floor. There is ecchymosis over the left eyebrow and orbit. The patient do not recall the events surrounding her falling. I believe the patient suffered a vasovagal syncope in the bathroom, striking her head and arm and from there crawled into the kitchen, however, the possibility of her having a breakthrough seizure status post intracerebral bleed 1 month ago remains a possibility. The patient has been taking Keppra 1000 mg twice a day and as per the patient and her , she has been very compliant with her medication. The patient did not drink alcohol for the past several years. When seen today, the patient is lying in bed. She is awake, alert and oriented. She is very talkative and focused. She is complaining of some achy soreness on the right upper quadrant of the abdomen wrapping around to the back. She says it is rather a dull ache, possibly a pulled muscle or sore muscle from her fall. PHYSICAL EXAMINATION: LUNGS: Clear. HEART: Sounds are regular. ABDOMEN: Soft and nontender. LABORATORY DATA: This morning laboratory studies show the white blood cell count to be 4.2, hemoglobin and hematocrit are 10.1 and 30.5 respectively. Sodium is 137, potassium 3.7, blood urea nitrogen 71, creatinine 0.5, glucose is 133. ASSESSMENT AND PLAN: The patient swab of the nares tested positive for MRSA. She is being treated with nasal antibiotics for that. The patient had an MRI which showed a small new intracerebral bleed in the left frontal area. She has received a unit of fresh frozen plasma and at least 2 units of platelets during her hospital stay. This morning's platelet count was 30,000. Dr. Medellin, the oncologist/surgical coordinator was asked to consult on the patient. So clinically the patient is doing well. However, her thrombocytopenia needs to be corrected in view of her intracerebral bleed. Zane Bass MD
--- NOTE | 2018-05-19 14:59 | CP.PCM.PN ---
Subjective - Date & Time of Evaluation Date of Evaluation: 05/19/18 Time of Evaluation: 12:50 - Subjective Subjective: DATE: 05/19/2018 NEUROLOGY FOLLOWUP CHIEF COMPLAINT: Followup for syncope, status post intracranial bleed. SUBJECTIVE: She is on Keppra 1000 mg p.o. every 12 for seizure prophylaxis. She did sustain a concussion. Her platelet count needs to be corrected given her intracranial abnormalities. PAST MEDICAL HISTORY: History of alcohol cirrhosis, esophageal varices, spinal stenosis, arthritis, disk degenerative disease, history of left posterior parietal lobe CVA in the past, status post seizure. ALLERGIES: ALLERGIC TO PENICILLIN. FAMILY HISTORY: Noncontributory. MEDICATIONS: Reviewed by nurses' reconciliation sheet. REVIEW OF SYSTEMS: Fourteen-point review of systems is negative except as per the HPI. LABORATORY DATA: Sodium is 138, potassium 4.2, chloride 108, carbon dioxide of 24, BUN of 7, creatinine of 0.6, random glucose of 88, platelet count of 39. PHYSICAL EXAMINATION: VITAL SIGNS: Temperature afebrile, pulse rate of 101, blood pressure 128/71, respiratory rate of 20, oxygen saturation 92% by nasal cannula. GENERAL: The patient is lying in bed, in no acute distress. HEENT: Atraumatic, normocephalic. PERRLA. Extraocular muscles intact. Has ecchymosis on the forehead in the eyes. NECK: Supple. No JVD, no adenopathy noted. LUNGS: Clear to auscultation. No adventitious sounds. HEART: S1, S2. Normal rhythm, tachycardic. No murmurs, rubs or gallops. ABDOMEN: Soft, nontender and nondistended. Bowel sounds are present. EXTREMITIES: No clubbing. No cyanosis. Peripheral pulses 2+ felt bilaterally. NEUROLOGIC: The patient has a left scalp bruising on the forehead from a fall. The patient is alert and oriented to person, place and year. Recall after 5 minutes is 0/3. Poor attention span. Slow thought process. Cranial nerves II through XII are intact. Motor exam: Moves all extremities equally. No pronator drifts seen except for mild right-sided weakness compared to the left from prior CVA. Toes are downgoing bilaterally. Sensory exam: Light touch, pinprick are decreased up to the calves bilaterally. Decreased vibration of the toes. Proprioception is intact bilaterally. DTRs are 2+ throughout and 1 at both knees and ankles. Coordination: [id number] intact. No dysmetria noted. Gait is deferred for now. ASSESSMENT AND PLAN: This is a 63-year-old woman with a history of alcoholic cirrhosis, esophageal varices, spinal stenosis, arthritis, disk degenerative disease, history of left parietooccipital infarct/hemorrhage in the past, status post rehabilitation as well as seizure in the past, on Keppra, who had a syncopal episode and also had mild concussion, had low systolic and diastolic blood pressures, which could have caused the syncope versus breakthrough seizure from underlying intracranial hematomas. MRI of the brain showed resolving large left subacute hematoma in the left parietooccipital lobe with mild vasogenic edema measuring 2.8 x 2.5 x 5.2, smaller 1.7 x 1.8 subacute hematoma on the left occipital lobe with small petechial hemorrhage in the left anterior semiovale. At this time, we will recommend, 1. Continue to keep blood pressure between 130s-140s systolic and diastolic 70-80s. 2. Continue with Keppra 1000 mg po every bid for seizure prophylaxis. 3. Continue to monitor her INR, PTT as well as her platelet count as still has thrombocytopenia. Hematology follow up since platelets are falling. 4. physical therapy/occupational therapy and also acute rehabilitation. Thank you Nguyễn Thornton MD Objective - Vital Signs/Intake and Output Vital Signs (last 24 hours): Temp Pulse Resp BP Pulse Ox 98.5 F 87 20 135/77 94 L 05/19/18 00:00 05/19/18 10:00 05/19/18 00:00 05/19/18 09:45 05/19/18 00:00 Intake and Output: 05/19/18 05/19/18 06:59 18:59 Intake Total 1500 Balance 1500 - Medications Medications: Current Medications Acetaminophen (Tylenol 325mg Tab) 650 mg PO Q6H PRN PRN Reason: Pain, Mild (1-3) Carvedilol (Coreg) 3.125 mg PO BID [facility] Last Admin: 05/15/18 18:02 Dose: Not Given Famotidine (Pepcid) 20 mg PO DAILY [facility] Last Admin: 05/17/18 09:58 Dose: Not Given Sodium Chloride (Sodium Chloride 0.9%) 1,000 mls @ 100 mls/hr IV .Q10H [facility] Last Admin: 05/19/18 03:15 Dose: Not Given Lactulose (Enulose) 20 gm PO BID [facility] Last Admin: 05/19/18 09:44 Dose: 20 gm Levetiracetam (Keppra) 1,000 mg PO Q12 [facility] Last Admin: 05/19/18 09:44 Dose: 1,000 mg Mupirocin (Bactroban Ointment) 0 gm NS BID [facility] Stop: 05/22/18 10:01 Last Admin: 05/19/18 09:44 Dose: 2 m.u. Potassium Phos/Sodium Phos (Neutra-Phos) 1 pkt PO TID [facility] Last Admin: 05/19/18 14:13 Dose: 1 pkt Simethicone (Mylicon Chew Tab) 80 mg PO [facility] PRN PRN Reason: GI distress Last Admin: 05/16/18 20:19 Dose: 80 mg Spironolactone (Aldactone) 50 mg PO DAILY [facility] Sucralfate (Carafate Oral Susp) 1 gm PO 0600,1600 [facility] Tramadol HCl (Ultram) 50 mg PO TID PRN PRN Reason: Pain, moderate (4-7) Last Admin: 05/18/18 21:54 Dose: 50 mg - Labs Labs: 05/19/18 05:40 05/19/18 05:40 PT 19.8 SECONDS (9.4-12.5) H 05/19/18 05:40 INR 1.70 05/19/18 05:40 APTT 35.6 Seconds (25.1-36.5) 05/16/18 16:45
--- NOTE | 2018-05-19 15:27 | US ---
Date of service: 05/19/2018 HISTORY: Cirrhosis/esophageal varices COMPARISON: Abdomen and pelvis CT with contrast 04/06/2018. TECHNIQUE: Sonographic evaluation of the abdomen. FINDINGS: LIVER: Measures 16.3 cm. The liver exhibits peripheral nodularity compatible the patient's known history of cirrhosis and concordant with the appearance on CT no exam noted above. No definitive intrahepatic biliary dilatation or hepatic mass identified.. GALLBLADDER: Go is completely contracted. Deflected sludge is not excluded from the lumen. Questionable limited cholelithiasis in the lumen as well. COMMON BILE DUCT: Measures 6.0 mm. No stones. No dilatation. PANCREAS: Pancreas completely obscured by overlying bowel gas. RIGHT KIDNEY: Measures 11.7cm. Normal echogenicity. No calculus, mass, or hydronephrosis. LEFT KIDNEY: Measures 12.0cm. Normal echogenicity. No calculus, mass, or hydronephrosis. SPLEEN: The spleen is enlarged to 14.4 cm without focal mass appreciable. AORTA: No aneurysmal dilatation. IVC: Unremarkable. OTHER FINDINGS: Incidental ascites and bilateral pleural effusions are encountered. IMPRESSION: Cirrhotic liver reiterated with mild abdominal ascites appreciated. Sludge is seen within a contracted gallbladder with borderline cholelithiasis in the lumen as well. Pancreas is completely obscured by overlying bowel gas and splenomegaly is reiterated. No discrete splenic mass identified.
[2018-05-19] MEDS: Sucralfate 1 gm/10 ml Oral Susp UD PO SCH (17:11)
[2018-05-19] MEDS ORDERED: Levalbuterol 0.63 MG/3 ML Inhal Soln UD IH PRN (17:25)
--- NOTE | 2018-05-19 17:31 | CP.PCM.PN ---
Subjective - Date & Time of Evaluation Date of Evaluation: 05/19/18 Time of Evaluation: 17:31 - Subjective Subjective: Hematology/Oncology Progress Note (Dr. Medellin's Service) Patient seen and assessed at bedside in ICU. No acute events noted overnight. Patient endorsing right sided abdominal pain that has been intermittent for the past few days. Patient denies any further complaints at this time including fevers, chills, headache, chest pain, SOB, N/V/D/C, changes in urine output, skin changes or any numbness/tingling of any extremity. Objective - Vital Signs/Intake and Output Vital Signs (last 24 hours): Temp Pulse Resp BP Pulse Ox 98.5 F 87 20 135/77 94 L 05/19/18 00:00 05/19/18 10:00 05/19/18 00:00 05/19/18 09:45 05/19/18 00:00 Intake and Output: 05/19/18 05/19/18 06:59 18:59 Intake Total 1500 Balance 1500 - Medications Medications: Current Medications Acetaminophen (Tylenol 325mg Tab) 650 mg PO Q6H PRN PRN Reason: Pain, Mild (1-3) Carvedilol (Coreg) 3.125 mg PO BID [facility] Last Admin: 05/15/18 18:02 Dose: Not Given Famotidine (Pepcid) 20 mg PO DAILY [facility] Last Admin: 05/17/18 09:58 Dose: Not Given Sodium Chloride (Sodium Chloride 0.9%) 1,000 mls @ 100 mls/hr IV .Q10H [facility] Last Admin: 05/19/18 13:00 Dose: Not Given Lactulose (Enulose) 20 gm PO BID [facility] Last Admin: 05/19/18 17:11 Dose: 20 gm Levalbuterol HCl (Xopenex) 0.63 mg IH [id number] PRN PRN Reason: Shortness of Breath Levetiracetam (Keppra) 1,000 mg PO Q12 [facility] Last Admin: 05/19/18 09:44 Dose: 1,000 mg Mupirocin (Bactroban Ointment) 0 gm NS BID [facility] Stop: 05/22/18 10:01 Last Admin: 05/19/18 17:12 Dose: 2 m.u. Potassium Phos/Sodium Phos (Neutra-Phos) 1 pkt PO TID [facility] Last Admin: 05/19/18 17:11 Dose: 1 pkt Simethicone (Mylicon Chew Tab) 80 mg PO [facility] PRN PRN Reason: GI distress Last Admin: 05/16/18 20:19 Dose: 80 mg Spironolactone (Aldactone) 50 mg PO DAILY [facility] Sucralfate (Carafate Oral Susp) 1 gm PO 0600,1600 [facility] Last Admin: 05/19/18 17:11 Dose: 1 gm Tramadol HCl (Ultram) 50 mg PO TID PRN PRN Reason: Pain, moderate (4-7) Last Admin: 05/18/18 21:54 Dose: 50 mg - Labs Labs: 05/19/18 05:40 05/19/18 05:40 PT 19.8 SECONDS (9.4-12.5) H 05/19/18 05:40 INR 1.70 05/19/18 05:40 APTT 35.6 Seconds (25.1-36.5) 05/16/18 16:45 - Additional Findings Additional findings: - Constitutional Appears: Non-toxic, No Acute Distress - Head Exam Head Exam: absent: ATRAUMATIC (Bruising noted over right orbit) - Eye Exam Eye Exam: EOMI, Normal appearance Pupil Exam: NORMAL ACCOMODATION - ENT Exam ENT Exam: Mucous Membranes Moist - Neck Exam Neck Exam: Full ROM. absent: Lymphadenopathy - Respiratory Exam Respiratory Exam: Clear to Ausculation Bilateral, NORMAL BREATHING PATTERN. absent: Accessory Muscle Use, Decreased Breath Sounds, Rales, Rhonchi, Wheezes, Respiratory Distress - Cardiovascular Exam Cardiovascular Exam: REGULAR RHYTHM, RRR, +S1, +S2 - GI/Abdominal Exam GI & Abdominal Exam: Soft, Normal Bowel Sounds, Tenderness (right sided to deep palpation) - Extremities Exam Extremities Exam: Full ROM, Normal Capillary Refill, Normal Inspection. absent: Calf Tenderness, Joint Swelling, Pedal Edema, Tenderness - Neurological Exam Neurological Exam: Alert, Awake, Oriented x3 - Psychiatric Exam Psychiatric exam: Normal Affect, Normal Mood - Skin Skin Exam: Dry, Intact, Normal Color, Warm. absent: Petechiae Assessment and Plan - Assessment and Plan (Free Text) Assessment: 63 year old female with a past medical history significant for alcohol abuse with cirrhosis and esophageal varices, cervical arthritis, and unspecified seiz ure disorder who presented after she was found by after a fall. CT Head showed resolving parieto-occipital hematoma. A follow-up MRI confirmed the findings along with a smaller hematoma in the L occipital lobe. She has a history of thrombocytopenia, and has been transfused two units of platelets without appropriate response in manual platelet count. Plan: -Manual platelet count (05/19): 36 -S/P two unit of platelets -INR (05/19): 1.70 -Will give one additional unit of platelets -Tylenol, Benadryl and Solu-Cortef to be given prior to infusion as ordered -Daily CBC with differential, manual platelet count and coagulation profiles -Further recommendations as per Dr. Medellin. Patient seen and case discussed with attending, Dr. Medellin. Javed Amos PGY2
--- NOTE | 2018-05-19 17:55 | RAD ---
Date of service: 05/19/2018 HISTORY: SOB COMPARISON: Chest radiograph dated 05/14/2018. FINDINGS: LUNGS: Pulmonary vascular congestion. Bibasilar atelectasis PLEURA: Questionable small left pleural effusion. No appreciable pneumothorax. CARDIOVASCULAR: Aortic atherosclerotic calcification. Cardiomediastinal silhouette stably enlarged OSSEOUS STRUCTURES: Unchanged. VISUALIZED UPPER ABDOMEN: Normal. OTHER FINDINGS: None. IMPRESSION: Worsening pulmonary vascular congestion. Bibasilar atelectasis. Questionable small pleural effusion.
[2018-05-20 06:41] LABS: INR 1.64
[2018-05-20 06:51] LABS: ALB/GLOB RATIO 0.8 (1.1-1.8); ALBUMIN 2.9 g/dL (3.0-4.8); ALT/SGPT 53 U/L (7-56); AST/SGOT 77 U/L (14-36); BLOOD UREA NITROGEN 10 mg/dL (7-21); CALCIUM 8.7 mg/dL (8.4-10.5); GFR NON-AFRICAN AMERICAN > 60
[2018-05-20 07:22] LABS: BASO # 0.01 K/mm3 (0.0-2.0); BASO % 0.3 % (0.0-3.0); EOS # 0.1 (0.0-0.7); GRAN # 3.21 (1.4-6.5); GRAN % 81.7 % (50.0-68.0); HEMOGLOBIN 9.1 g/dL (12.0-16.0); LYMPH # 0.4 (1.2-3.4); LYMPH % 10.4 % (22.0-35.0); MEAN CELL VOLUME 95.4 fl (80.0-105.0); MEAN CORPUSCULAR HEMOGLOBIN 32.2 pg (25.0-35.0); MEAN CORPUSCULAR HGB CONC 33.7 g/dl (31.0-37.0); MEAN PLATELET VOLUME 9.5 fl (7.0-11.0); MONO # 0.2 (0.1-0.6); MONO % 5.6 % (1.0-6.0); RBC 2.83 10^6/uL (3.5-6.1); RED CELL DISTRIBUTION WIDTH 16.9 % (11.5-14.5); WHITE BLOOD COUNT 3.9 10^3/uL (4.5-11.0)
[2018-05-20 07:50] LABS: PLATELET COUNT 44 10^3/uL (120.0-450.0)
[2018-05-20 08:02] LABS: PLATELET COUNT MANUAL 60 K/mm3 (120-450)
[2018-05-20] MEDS ORDERED: Potassium Chloride 20 mEq ER Tab PO STA (08:02)
--- NOTE | 2018-05-20 08:11 | CP.PCM.PN ---
<Ta Chicas - Last Filed: 05/20/18 10:08> Subjective - Date & Time of Evaluation Date of Evaluation: 05/20/18 Time of Evaluation: 08:07 - Subjective Subjective: PGY-2 GI progress note for Dr Vernon. No acute events noted overnight. Patient appeared comfortable in bed. Denied any abdominal discomfort or pain to me - stated she had right abdominal pain before but not currently. Denied melena or BRBPR. Stated occasional nausea. Had 3 bowel movements yesterday. Stated occasional shortness of breath (received lasix overnight for shortness of breath). Objective - Vital Signs/Intake and Output Vital Signs (last 24 hours): Temp Pulse Resp BP Pulse Ox 98.2 F 90 18 145/83 92 L 05/20/18 07:53 05/20/18 07:00 05/20/18 07:00 05/20/18 07:00 05/20/18 07:00 Intake and Output: 05/20/18 05/20/18 06:59 18:59 Intake Total 300 Output Total 1700 Balance -1400 - Medications Medications: Current Medications Acetaminophen (Tylenol 325mg Tab) 650 mg PO Q6H PRN PRN Reason: Pain, Mild (1-3) Last Admin: 05/19/18 22:12 Dose: 650 mg Carvedilol (Coreg) 3.125 mg PO BID [facility] Last Admin: 05/15/18 18:02 Dose: Not Given Famotidine (Pepcid) 20 mg PO DAILY [facility] Last Admin: 05/17/18 09:58 Dose: Not Given Lactulose (Enulose) 20 gm PO BID [facility] Last Admin: 05/19/18 17:11 Dose: 20 gm Levalbuterol HCl (Xopenex) 0.63 mg IH [id number] PRN PRN Reason: Shortness of Breath Levetiracetam (Keppra) 1,000 mg PO Q12 [facility] Last Admin: 05/19/18 22:09 Dose: 1,000 mg Mupirocin (Bactroban Ointment) 0 gm NS BID [facility] Stop: 05/22/18 10:01 Last Admin: 05/19/18 17:12 Dose: 2 m.u. Potassium Chloride (K-Dur 20 Meq Er Tab) 40 meq PO STAT [facility] Stop: 05/20/18 08:03 Potassium Phos/Sodium Phos (Neutra-Phos) 1 pkt PO TID [facility] Last Admin: 05/19/18 17:11 Dose: 1 pkt Simethicone (Mylicon Chew Tab) 80 mg PO PCHS PRN PRN Reason: GI distress Last Admin: 05/16/18 20:19 Dose: 80 mg Spironolactone (Aldactone) 50 mg PO DAILY [facility] Sucralfate (Carafate Oral Susp) 1 gm PO 0600,1600 [facility] Last Admin: 05/19/18 17:11 Dose: 1 gm Tramadol HCl (Ultram) 50 mg PO TID PRN PRN Reason: Pain, moderate (4-7) Last Admin: 05/18/18 21:54 Dose: 50 mg - Labs Labs: 05/20/18 06:15 05/20/18 06:15 PT 19.0 SECONDS (9.4-12.5) H 05/20/18 06:15 INR 1.64 05/20/18 06:15 APTT 35.6 Seconds (25.1-36.5) 05/16/18 16:45 - Additional Findings Additional findings: - Head Exam Head Exam: absent: ATRAUMATIC, NORMAL INSPECTION Additional comments: + scalp hematoma left frontal area - Eye Exam Eye Exam: EOMI, Normal appearance, PERRL. absent: Scleral icterus - ENT Exam ENT Exam: Mucous Membranes Moist - Neck Exam Neck exam: Positive for: Normal Inspection. Negative for: Tenderness - Respiratory Exam Respiratory Exam: Clear to Auscultation Bilateral. absent: Rales, Rhonchi, Wheezes - Cardiovascular Exam Cardiovascular Exam: Tachycardia, REGULAR RHYTHM, +S1, +S2, Systolic Murmur. absent: JVD - GI/Abdominal Exam GI & Abdominal Exam: Normal Bowel Sounds. absent: Distended, Firm, Guarding, Rebound, Tenderness - Extremities Exam Extremities exam: Positive for: normal capillary refill, normal inspection. 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 GI has been consulted for cirrhosis and elevated INR: Cirrhosis Ascites -Meld score 17 -AST/ALT 105/61 on admission - downtrending -hep panel 03/2018 negative and hiv 03/2018 negative -thrombocytopenia likely 2/2 cirrhosis - heme/onc transfused 2 bags platelets and 1 bag FFP * Anti-platelet antibodies, BECKY negative were both negative on previous admission -CT abd/pelvis w/ iv contrast from 03/2018: * Cirrhosis with moderate ascites and splenomegaly -continue lactulose 20mg po bid -discontinue lasix 20mg po qd and instead started aldactone 50mg po qd to treat ascites -start carafate 1g po bid to treat gerd -pepcid currently being held for thrombocytopenia -AFP marker normal -ammonia level normal -Portal vein duplex ultrasound 05/19 showed patent portal vein; liver parechyma consistent with cirrhosis, small ascites in upper abdomen Elevated INR -no active bleeding Esophageal Varices -status post 2014 Colonic AVMs -colonoscopy 06/2015: single non-bleeding colonic angiodysplastic lesion in cecum, one 7mm polyp sigmoid colon, diverticulosis in sigmoid colon, internal hemorrhoids Previous GI procedures: -EGD 06/2015: large esophageal varices (banded), salmon-colored mucose suspicious for martinez's esophagus -colonoscopy 06/2015: single non-bleeding colonic angiodysplastic lesion in cecum, one 7mm polyp sigmoid colon, diverticulosis in sigmoid colon, internal hemorrhoids Case discussed with Dr Vernon. <Jean-Claude Vernon V - Last Filed: 05/21/18 01:17> Objective - Vital Signs/Intake and Output Vital Signs (last 24 hours): Temp Pulse Resp BP Pulse Ox 99 F 103 H 21 129/70 95 05/20/18 20:00 05/20/18 23:00 05/20/18 23:00 05/20/18 22:00 05/20/18 19:00 Intake and Output: 05/20/18 05/21/18 18:59 06:59 Intake Total 1050 Output Total 851 Balance 199 - Medications Medications: Current Medications Acetaminophen (Tylenol 325mg Tab) 650 mg PO Q6H PRN PRN Reason: Pain, Mild (1-3) Last Admin: 05/19/18 22:12 Dose: 650 mg Carvedilol (Coreg) 3.125 mg PO BID [facility] Last Admin: 05/15/18 18:02 Dose: Not Given Famotidine (Pepcid) 20 mg PO DAILY [facility] Last Admin: 05/17/18 09:58 Dose: Not Given Folic Acid (Folic Acid) 1 mg PO DAILY [facility] Lactulose (Enulose) 20 gm PO BID [facility] Last Admin: 05/20/18 18:24 Dose: 20 gm Levalbuterol HCl (Xopenex) 0.63 mg IH [id number] PRN PRN Reason: Shortness of Breath Levetiracetam (Keppra) 1,000 mg PO Q12 [facility] Last Admin: 05/20/18 22:00 Dose: 1,000 mg Multivitamins/Minerals (Therapeutic-M Tab) 1 tab PO 0800 [facility] Mupirocin (Bactroban Ointment) 0 gm NS BID [facility] Stop: 05/22/18 10:01 Last Admin: 05/20/18 18:36 Dose: 1 m.u. Potassium Phos/Sodium Phos (Neutra-Phos) 1 pkt PO TID [facility] Last Admin: 05/20/18 18:35 Dose: 1 pkt Simethicone (Mylicon Chew Tab) 80 mg PO PCHS PRN PRN Reason: GI distress Last Admin: 05/16/18 20:19 Dose: 80 mg Spironolactone (Aldactone) 50 mg PO DAILY [facility] Last Admin: 05/20/18 09:43 Dose: 50 mg Sucralfate (Carafate Oral Susp) 1 gm PO 0600,1600 [facility] Last Admin: 05/20/18 18:25 Dose: 1 gm Tramadol HCl (Ultram) 50 mg PO TID PRN PRN Reason: Pain, moderate (4-7) Last Admin: 05/18/18 21:54 Dose: 50 mg - Labs Labs: 05/20/18 06:15 05/20/18 06:15 PT 19.0 SECONDS (9.4-12.5) H 05/20/18 06:15 INR 1.64 05/20/18 06:15 APTT 35.6 Seconds (25.1-36.5) 05/16/18 16:45 Attending/Attestation - Attestation I have personally seen and examined this patient.: Yes I have fully participated in the care of the patient.: Yes I have reviewed all pertinent clinical information, including history, physical exam and plan: Yes
[2018-05-20] MEDS: Sucralfate 1 gm/10 ml Oral Susp UD PO SCH ×2 (09:43→18:25)
[2018-05-20] MEDS: Potassium & Sodium Phosphate PO SCH ×3 (09:44→18:35)
[2018-05-20] MEDS: Mupirocin 2% Ointment 15 GM TUBE NS SCH ×2 (09:45→18:36)
--- NOTE | 2018-05-20 13:38 | CP.PCM.PN ---
Subjective - Date & Time of Evaluation Date of Evaluation: 05/20/18 Time of Evaluation: 13:23 - Subjective Subjective: Hematology/Oncology Progress Note (Dr. Medellin's Service) Patient seen and assessed at bedside in ICU. No acute events noted overnight. Patient reports that her SOB and abdominal pain have both improved since yesterday. Patient denies any further complaints at this time including fevers, chills, headache, chest pain, N/V/D/C, changes in urine output, skin changes or any numbness/tingling of any extremity. Objective - Vital Signs/Intake and Output Vital Signs (last 24 hours): Temp Pulse Resp BP Pulse Ox 98.2 F 90 18 145/83 92 L 05/20/18 07:53 05/20/18 10:00 05/20/18 07:00 05/20/18 07:00 05/20/18 07:00 Intake and Output: 05/20/18 05/20/18 06:59 18:59 Intake Total 300 Output Total 1700 Balance -1400 - Medications Medications: Current Medications Acetaminophen (Tylenol 325mg Tab) 650 mg PO Q6H PRN PRN Reason: Pain, Mild (1-3) Last Admin: 05/19/18 22:12 Dose: 650 mg Carvedilol (Coreg) 3.125 mg PO BID [facility] Last Admin: 05/15/18 18:02 Dose: Not Given Famotidine (Pepcid) 20 mg PO DAILY [facility] Last Admin: 05/17/18 09:58 Dose: Not Given Lactulose (Enulose) 20 gm PO BID [facility] Last Admin: 05/20/18 09:43 Dose: 20 gm Levalbuterol HCl (Xopenex) 0.63 mg IH [id number] PRN PRN Reason: Shortness of Breath Levetiracetam (Keppra) 1,000 mg PO Q12 [facility] Last Admin: 05/20/18 09:43 Dose: 1,000 mg Mupirocin (Bactroban Ointment) 0 gm NS BID [facility] Stop: 05/22/18 10:01 Last Admin: 05/20/18 09:45 Dose: 1 m.u. Potassium Phos/Sodium Phos (Neutra-Phos) 1 pkt PO TID [facility] Last Admin: 05/20/18 09:44 Dose: 1 pkt Simethicone (Mylicon Chew Tab) 80 mg PO PCHS PRN PRN Reason: GI distress Last Admin: 05/16/18 20:19 Dose: 80 mg Spironolactone (Aldactone) 50 mg PO DAILY [facility] Last Admin: 05/20/18 09:43 Dose: 50 mg Sucralfate (Carafate Oral Susp) 1 gm PO 0600,1600 [facility] Last Admin: 05/20/18 09:43 Dose: 1 gm Tramadol HCl (Ultram) 50 mg PO TID PRN PRN Reason: Pain, moderate (4-7) Last Admin: 05/18/18 21:54 Dose: 50 mg - Labs Labs: 05/20/18 06:15 05/20/18 06:15 PT 19.0 SECONDS (9.4-12.5) H 05/20/18 06:15 INR 1.64 05/20/18 06:15 APTT 35.6 Seconds (25.1-36.5) 05/16/18 16:45 - Additional Findings Additional findings: - Constitutional Appears: Non-toxic, No Acute Distress - Head Exam Head Exam: absent: ATRAUMATIC (Bruising noted over right orbit; Interval improvement noted) - Eye Exam Eye Exam: EOMI, Normal appearance Pupil Exam: NORMAL ACCOMODATION - ENT Exam ENT Exam: Mucous Membranes Moist - Neck Exam Neck Exam: Full ROM. absent: Lymphadenopathy - Respiratory Exam Respiratory Exam: Clear to Ausculation Bilateral, NORMAL BREATHING PATTERN. absent: Accessory Muscle Use, Decreased Breath Sounds, Rales, Rhonchi, Wheezes, Respiratory Distress - Cardiovascular Exam Cardiovascular Exam: REGULAR RHYTHM, RRR, +S1, +S2 - GI/Abdominal Exam GI & Abdominal Exam: Soft, Normal Bowel Sounds, Tenderness (right sided to deep palpation; Interval improvement noted) - Extremities Exam Extremities Exam: Full ROM, Normal Capillary Refill, Normal Inspection. absent: Calf Tenderness, Joint Swelling, Pedal Edema, Tenderness - Neurological Exam Neurological Exam: Alert, Awake, Oriented x3 - Psychiatric Exam Psychiatric exam: Normal Affect, Normal Mood - Skin Skin Exam: Dry, Intact, Normal Color, Warm. absent: Petechiae Assessment and Plan - Assessment and Plan (Free Text) Assessment: 63 year old female with a past medical history significant for alcohol abuse with cirrhosis and esophageal varices, cervical arthritis, and unspecified seizure disorder who presented after she was found by after a fall. CT Head showed resolving parieto-occipital hematoma. A follow-up MRI confirmed the findings along with a smaller hematoma in the left occipital lobe. She has a history of thrombocytopenia, and has been transfused three units of platelets. Plan: -Manual platelet count (05/20): 60 -S/P three unit of platelets -INR (05/20): 1.66 -S/P one unit of FFP -Will start patient on daily Multivitamin and Folic Acid supplementation -Daily CBC with differential, manual platelet count and coagulation profiles -Further recommendations as per Dr. Medellin. Disposition: Will discuss with neurology team whether or not there is continued bleeding in the brain and if repeat scans are needed. Our goal is to have the patient on Promacta as an outpatient for her thrombocytopenia. Patient seen and case discussed with attending, Dr. Medellin. Javed Amos PGY2
[2018-05-21] MEDS: Sucralfate 1 gm/10 ml Oral Susp UD PO SCH ×2 (05:58→17:30)
[2018-05-21 06:11] LABS: BASO # 0.02 K/mm3 (0.0-2.0); BASO % 0.4 % (0.0-3.0); EOS # 0.2 (0.0-0.7); GRAN % 63.3 % (50.0-68.0); HEMOGLOBIN 9.6 g/dL (12.0-16.0); LYMPH # 1.1 (1.2-3.4); LYMPH % 20.4 % (22.0-35.0); MEAN CELL VOLUME 95.7 fl (80.0-105.0); MEAN CORPUSCULAR HEMOGLOBIN 32.1 pg (25.0-35.0); MEAN CORPUSCULAR HGB CONC 33.6 g/dl (31.0-37.0); MEAN PLATELET VOLUME 9.5 fl (7.0-11.0); MONO # 0.7 (0.1-0.6); MONO % 11.9 % (1.0-6.0); RBC 2.99 10^6/uL (3.5-6.1); RED CELL DISTRIBUTION WIDTH 17.2 % (11.5-14.5); WHITE BLOOD COUNT 5.5 10^3/uL (4.5-11.0)
[2018-05-21 06:25] LABS: PLATELET COUNT 45 10^3/uL (120.0-450.0)
[2018-05-21 06:28] LABS: ALB/GLOB RATIO 0.7 (1.1-1.8); ALBUMIN 2.8 g/dL (3.0-4.8); ALT/SGPT 56 U/L (7-56); AST/SGOT 74 U/L (14-36); BLOOD UREA NITROGEN 10 mg/dL (7-21); CALCIUM 8.6 mg/dL (8.4-10.5); GFR NON-AFRICAN AMERICAN > 60
[2018-05-21] MEDS ORDERED: Magnesium Sulfate 2 GM in Sodium Chloride 0.9% 100 ML IVPB ONE (08:16)
[2018-05-21 08:47] LABS: PLATELET ESTIMATE LOW (NORMAL)
--- NOTE | 2018-05-21 09:12 | CP.PCM.PN ---
<Ta Chicas - Last Filed: 05/21/18 10:23> Subjective - Date & Time of Evaluation Date of Evaluation: 05/21/18 Time of Evaluation: 09:11 - Subjective Subjective: PGY-2 GI progress note for Dr Vernon. No acute events noted overnight (only headache - was given ultram). Patient appeared comfortable in bed. Denied any abdominal discomfort or pain to me. Denied melena or BRBPR. Stated occasional nausea. Having bowel movements. Objective - Vital Signs/Intake and Output Vital Signs (last 24 hours): Temp Pulse Resp BP Pulse Ox 99.2 F 93 H 15 118/71 96 05/21/18 04:00 05/21/18 06:00 05/21/18 06:00 05/21/18 06:00 05/21/18 06:00 Intake and Output: 05/21/18 05/21/18 06:59 18:59 Intake Total 300 Output Total 400 Balance -100 - Medications Medications: Current Medications Acetaminophen (Tylenol 325mg Tab) 650 mg PO Q6H PRN PRN Reason: Pain, Mild (1-3) Last Admin: 05/19/18 22:12 Dose: 650 mg Carvedilol (Coreg) 3.125 mg PO BID [facility] Last Admin: 05/15/18 18:02 Dose: Not Given Famotidine (Pepcid) 20 mg PO DAILY [facility] Last Admin: 05/17/18 09:58 Dose: Not Given Folic Acid (Folic Acid) 1 mg PO DAILY [facility] Magnesium Sulfate 2 gm/ Sodium (Chloride) 104 mls @ 102 mls/hr IVPB ONCE ONE Stop: 05/21/18 09:17 Lactulose (Enulose) 20 gm PO BID [facility] Last Admin: 05/20/18 18:24 Dose: 20 gm Levalbuterol HCl (Xopenex) 0.63 mg IH [id number] PRN PRN Reason: Shortness of Breath Levetiracetam (Keppra) 1,000 mg PO Q12 [facility] Last Admin: 05/20/18 22:00 Dose: 1,000 mg Multivitamins/Minerals (Therapeutic-M Tab) 1 tab PO 0800 [facility] Mupirocin (Bactroban Ointment) 0 gm NS BID [facility] Stop: 05/22/18 10:01 Last Admin: 05/20/18 18:36 Dose: 1 m.u. Potassium Phos/Sodium Phos (Neutra-Phos) 1 pkt PO TID [facility] Last Admin: 05/20/18 18:35 Dose: 1 pkt Simethicone (Mylicon Chew Tab) 80 mg PO HS PRN PRN Reason: GI distress Last Admin: 05/16/18 20:19 Dose: 80 mg Spironolactone (Aldactone) 50 mg PO DAILY [facility] Last Admin: 05/20/18 09:43 Dose: 50 mg Sucralfate (Carafate Oral Susp) 1 gm PO 0600,1600 [facility] Last Admin: 05/21/18 05:58 Dose: 1 gm Tramadol HCl (Ultram) 50 mg PO TID PRN PRN Reason: Pain, moderate (4-7) Last Admin: 05/21/18 03:28 Dose: 50 mg - Labs Labs: 05/21/18 05:25 05/21/18 05:25 PT 19.0 SECONDS (9.4-12.5) H 05/20/18 06:15 INR 1.64 05/20/18 06:15 APTT 35.6 Seconds (25.1-36.5) 05/16/18 16:45 - Additional Findings Additional findings: - Head Exam Head Exam: absent: ATRAUMATIC, NORMAL INSPECTION Additional comments: + scalp hematoma left frontal area - Eye Exam Eye Exam: EOMI, Normal appearance, PERRL. absent: Scleral icterus - ENT Exam ENT Exam: Mucous Membranes Moist - Neck Exam Neck exam: Positive for: Normal Inspection. Negative for: Tenderness - Respiratory Exam Respiratory Exam: Clear to Auscultation Bilateral. absent: Rales, Rhonchi, Wheezes - Cardiovascular Exam Cardiovascular Exam: Tachycardia, REGULAR RHYTHM, +S1, +S2, Systolic Murmur. absent: JVD - GI/Abdominal Exam GI & Abdominal Exam: Normal Bowel Sounds. absent: Distended, Firm, Guarding, Rebound, Tenderness - Extremities Exam Extremities exam: Positive for: normal capillary refill, normal inspection. 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 GI has been consulted for cirrhosis and elevated INR: Cirrhosis Ascites -Meld score 17 -AST/ALT 105/61 on admission - downtrending -hep panel 03/2018 negative and hiv 03/2018 negative -thrombocytopenia likely 2/2 cirrhosis - heme/onc transfused 2 bags platelets and 1 bag FFP * Anti-platelet antibodies, BECKY negative were both negative on previous admission -CT abd/pelvis w/ iv contrast from 03/2018: * Cirrhosis with moderate ascites and splenomegaly -continue lactulose 20mg po bid -discontinue lasix 20mg po qd and instead started aldactone 50mg po qd to treat ascites -start carafate 1g po bid to treat gerd -pepcid currently being held for thrombocytopenia -AFP marker normal -ammonia level normal -Portal vein duplex ultrasound 05/19 showed patent portal vein; liver parechyma consistent with cirrhosis, small ascites in upper abdomen Elevated INR -no active bleeding Esophageal Varices -status post 2014 Colonic AVMs -colonoscopy 06/2015: single non-bleeding colonic angiodysplastic lesion in cecum, one 7mm polyp sigmoid colon, diverticulosis in sigmoid colon, internal hemorrhoids Previous GI procedures: -EGD 06/2015: large esophageal varices (banded), salmon-colored mucose suspicious for martinez's esophagus -colonoscopy 06/2015: single non-bleeding colonic angiodysplastic lesion in cecum, one 7mm polyp sigmoid colon, diverticulosis in sigmoid colon, internal hemorrhoids Seen and discussed with Dr Vernon. <Jean-Claude Vernon V - Last Filed: 05/22/18 00:05> Objective - Vital Signs/Intake and Output Vital Signs (last 24 hours): Temp Pulse Resp BP Pulse Ox 97.9 F 103 H 20 136/84 88 L 05/21/18 08:00 05/21/18 17:00 05/21/18 17:00 05/21/18 14:13 05/21/18 14:00 Intake and Output: 05/21/18 05/22/18 18:59 06:59 Intake Total 800 Output Total 500 Balance 300 - Medications Medications: Current Medications Acetaminophen (Tylenol 325mg Tab) 650 mg PO Q6H PRN PRN Reason: Pain, Mild (1-3) Last Admin: 05/19/18 22:12 Dose: 650 mg Carvedilol (Coreg) 3.125 mg PO BID [facility] Last Admin: 05/15/18 18:02 Dose: Not Given Famotidine (Pepcid) 20 mg PO DAILY [facility] Last Admin: 05/17/18 09:58 Dose: Not Given Folic Acid (Folic Acid) 1 mg PO DAILY [facility] Last Admin: 05/21/18 10:39 Dose: 1 mg Lactulose (Enulose) 20 gm PO BID [facility] Last Admin: 05/21/18 17:29 Dose: 20 gm Levalbuterol HCl (Xopenex) 0.63 mg IH [id number] PRN PRN Reason: Shortness of Breath Levetiracetam (Keppra) 1,000 mg PO Q12 [facility] Last Admin: 05/21/18 21:35 Dose: 1,000 mg Multivitamins/Minerals (Therapeutic-M Tab) 1 tab PO 0800 [facility] Last Admin: 05/21/18 10:39 Dose: 1 tab Mupirocin (Bactroban Ointment) 0 gm NS BID [facility] Stop: 05/22/18 10:01 Last Admin: 05/21/18 17:30 Dose: 1 m.u. Potassium Phos/Sodium Phos (Neutra-Phos) 1 pkt PO TID [facility] Last Admin: 05/21/18 17:30 Dose: 1 pkt Simethicone (Mylicon Chew Tab) 80 mg PO PCHS PRN PRN Reason: GI distress Last Admin: 05/16/18 20:19 Dose: 80 mg Spironolactone (Aldactone) 50 mg PO DAILY [facility] Last Admin: 05/21/18 10:39 Dose: 50 mg Sucralfate (Carafate Oral Susp) 1 gm PO 0600,1600 [facility] Last Admin: 05/21/18 17:30 Dose: 1 gm Tramadol HCl (Ultram) 50 mg PO TID PRN PRN Reason: Pain, moderate (4-7) Last Admin: 05/21/18 17:37 Dose: 50 mg - Labs Labs: 05/21/18 05:25 05/21/18 05:25 PT 18.2 SECONDS (9.4-12.5) H 05/21/18 08:55 INR 1.57 05/21/18 08:55 APTT 32.7 Seconds (25.1-36.5) 05/21/18 08:55 Attending/Attestation - Attestation I have personally seen and examined this patient.: Yes I have fully participated in the care of the patient.: Yes I have reviewed all pertinent clinical information, including history, physical exam and plan: Yes
[2018-05-21 09:18] LABS: INR 1.57; PARTIAL THROMBOPLASTIN TIME 32.7 Seconds (25.1-36.5); PROTHROMBIN TIME 18.2 SECONDS (9.4-12.5)
--- NOTE | 2018-05-21 10:18 | PN ---
DATE: 05/20/2018 DAILY PROGRESS NOTE SUBJECTIVE: The patient is a 63-year-old female, who presented to the emergency room after being found on the floor of the kitchen by her . 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 She is status post right hip replacement. She suffered a posterior parietal occipital bleed about a month ago from which she did well. She was able to move all her extremities after acute rehab at [facility]. She was doing well at home for several days; however, it appears probable that the patient suffered a syncopal episode in the bathroom striking her head on the fixture there leaving her with a large ecchymosis over the left braw and orbit. Afterwards, she crawled to the kitchen and was found by her as he returned from work. I cannot rule out the possibility of her suffering the seizure, although the patient had been taking Keppra 1000 mg twice a day, which was started because of her recent intracerebral bleed. During that hospital stay, a followup MRI showed a new bleed in the left frontal area. The patient's liver enzymes had been elevated. She had thrombocytopenia. She received a total of 3 units of platelets today plus 1 unit of fresh frozen plasma. When seen today, she was also being visited by Dr. Medellin, her sales and management trainee. We are continuing to follow the platelets closely as it is essential for her clotting. The patient was found to be O positive type blood. Ultrasound of the abdomen showed splenomegaly with cirrhosis of the liver. There was a small amount of ascites and bilateral pleural effusions. We are continuing to follow the patient closely. Zane Bass MD PAN[facility]
--- NOTE | 2018-05-21 10:31 | CP.PCM.PN ---
Subjective - Date & Time of Evaluation Date of Evaluation: 05/21/18 Time of Evaluation: 10:30 - Subjective Subjective: Hematology/Oncology Progress Note (Dr. Medellin's Service) Patient seen and assessed at bedside in ICU. No acute events noted overnight. Patient reports that she no longer has any SOB but does endorse that she is having trouble sleeping at night. Patient denies any further complaints at this time including fevers, chills, headache, chest pain, SOB, N/V/D/C, changes in urine output, skin changes or any numbness/tingling of any extremity. Objective - Vital Signs/Intake and Output Vital Signs (last 24 hours): Temp Pulse Resp BP Pulse Ox 99.2 F 93 H 15 118/71 96 05/21/18 04:00 05/21/18 06:00 05/21/18 06:00 05/21/18 06:00 05/21/18 06:00 Intake and Output: 05/21/18 05/21/18 06:59 18:59 Intake Total 300 Output Total 400 Balance -100 - Medications Medications: Current Medications Acetaminophen (Tylenol 325mg Tab) 650 mg PO Q6H PRN PRN Reason: Pain, Mild (1-3) Last Admin: 05/19/18 22:12 Dose: 650 mg Carvedilol (Coreg) 3.125 mg PO BID [facility] Last Admin: 05/15/18 18:02 Dose: Not Given Famotidine (Pepcid) 20 mg PO DAILY [facility] Last Admin: 05/17/18 09:58 Dose: Not Given Folic Acid (Folic Acid) 1 mg PO DAILY [facility] Lactulose (Enulose) 20 gm PO BID [facility] Last Admin: 05/20/18 18:24 Dose: 20 gm Levalbuterol HCl (Xopenex) 0.63 mg IH [id number] PRN PRN Reason: Shortness of Breath Levetiracetam (Keppra) 1,000 mg PO Q12 [facility] Last Admin: 05/20/18 22:00 Dose: 1,000 mg Multivitamins/Minerals (Therapeutic-M Tab) 1 tab PO 0800 [facility] Mupirocin (Bactroban Ointment) 0 gm NS BID [facility] Stop: 05/22/18 10:01 Last Admin: 05/20/18 18:36 Dose: 1 m.u. Potassium Phos/Sodium Phos (Neutra-Phos) 1 pkt PO TID [facility] Last Admin: 05/20/18 18:35 Dose: 1 pkt Simethicone (Mylicon Chew Tab) 80 mg PO [facility] PRN PRN Reason: GI distress Last Admin: 05/16/18 20:19 Dose: 80 mg Spironolactone (Aldactone) 50 mg PO DAILY [facility] Last Admin: 05/20/18 09:43 Dose: 50 mg Sucralfate (Carafate Oral Susp) 1 gm PO 0600,1600 [facility] Last Admin: 05/21/18 05:58 Dose: 1 gm Tramadol HCl (Ultram) 50 mg PO TID PRN PRN Reason: Pain, moderate (4-7) Last Admin: 05/21/18 03:28 Dose: 50 mg - Labs Labs: 05/21/18 05:25 05/21/18 05:25 PT 18.2 SECONDS (9.4-12.5) H 05/21/18 08:55 INR 1.57 05/21/18 08:55 APTT 32.7 Seconds (25.1-36.5) 05/21/18 08:55 - Constitutional Appears: Non-toxic, No Acute Distress - Head Exam Head Exam: absent: ATRAUMATIC (Healing ecchymosis to left orbit/supraorbit; Healing) - Eye Exam Eye Exam: EOMI, Normal appearance - ENT Exam ENT Exam: Mucous Membranes Moist - Neck Exam Neck Exam: Full ROM, Normal Inspection - Respiratory Exam Respiratory Exam: Clear to Ausculation Bilateral, NORMAL BREATHING PATTERN. absent: Accessory Muscle Use, Rales, Rhonchi, Wheezes, Respiratory Distress - Cardiovascular Exam Cardiovascular Exam: Tachycardia, REGULAR RHYTHM, +S1, +S2 - GI/Abdominal Exam GI & Abdominal Exam: Soft, Normal Bowel Sounds. absent: Tenderness - Extremities Exam Extremities Exam: Full ROM, Normal Capillary Refill, Normal Inspection. absent: Calf Tenderness, Joint Swelling, Pedal Edema, Tenderness - Neurological Exam Neurological Exam: Alert, Awake, Oriented x3 - Psychiatric Exam Psychiatric exam: Normal Affect, Normal Mood - Skin Skin Exam: Dry, Intact, Warm Assessment and Plan - Assessment and Plan (Free Text) Assessment: 63 year old female with a past medical history significant for alcohol abuse with cirrhosis and esophageal varices, cervical arthritis, and unspecified seizure disorder who presented after she was found by after a fall. CT Head showed resolving parieto-occipital hematoma. A follow-up MRI confirmed the findings along with a smaller hematoma in the left occipital lobe. She has a history of thrombocytopenia, and has been transfused three units of platelets. Plan: -Manual platelet count (05/21): 60 -S/P three unit of platelets -INR (05/21): 1.57 -S/P one unit of FFP -Continue daily Multivitamin and Folic Acid supplementation -Daily CBC with differential, manual platelet count and coagulation profiles -Continue further treatment per GI, Neurology and Primary team's -Further recommendations as per Dr. Medellin. Disposition: Our goal is to have the patient on Promacta as an outpatient for her thrombocytopenia. This was discussed with primary team. Patient will be evaluated for TCU placement upon discharge. We will continue to follow patient closely with you. Patient seen and case discussed with attending, Dr. Medellin. Javed Amos PGY2
[2018-05-21] MEDS: Potassium & Sodium Phosphate PO SCH ×3 (10:39→17:30)
[2018-05-21] MEDS: Multivitamin With Minerals Tab PO SCH (10:39)
[2018-05-21] MEDS: Mupirocin 2% Ointment 15 GM TUBE NS SCH ×2 (10:42→17:30)
[2018-05-21 17:11] VITALS: TEMP 97.9
--- NOTE | 2018-05-21 22:06 | PN ---
DATE: 05/21/2018 SUBJECTIVE: The patient was seen this morning in intensive care, bed 5. She is awake, alert and answering questions appropriately, waiting for transfer out of ICU. PHYSICAL EXAMINATION GENERAL: She is awake, alert and clear. LUNGS: Show good aeration right and left with decreased breath sounds of severe COPD. HEART: Regular, but not tachycardic. ABDOMEN: Bit distended with cirrhosis. Skin turgor and color was poor because of underlying liver disease. EXTREMITIES: Thin and frail with no edema. PLAN: The patient will transfer out of intensive care since she had been monitored over the last few last days, no further need for telemetry monitoring. We will go through med [facility] with plan of been going to transitional care unit for additional physical therapy, conditioning, exercise prior to discharge to home. I spoke with the hematology resident working with Dr. Medellin about her platelet issues which they will continue to follow and treat. Abilio Bass MD
[2018-05-22] MEDS: Sucralfate 1 gm/10 ml Oral Susp UD PO SCH (05:41)
[2018-05-22 07:26] LABS: BASO # 0.03 K/mm3 (0.0-2.0); BASO % 0.7 % (0.0-3.0); EOS # 0.2 (0.0-0.7); EOS % 4.2 % (1.5-5.0); GRAN # 2.55 (1.4-6.5); GRAN % 59.2 % (50.0-68.0); HEMOGLOBIN 9.3 g/dL (12.0-16.0); LYMPH # 0.9 (1.2-3.4); LYMPH % 21.9 % (22.0-35.0); MEAN CORPUSCULAR HEMOGLOBIN 31.2 pg (25.0-35.0); MEAN CORPUSCULAR HGB CONC 32.5 g/dl (31.0-37.0); MEAN PLATELET VOLUME 9.2 fl (7.0-11.0); MONO # 0.6 (0.1-0.6); RBC 2.98 10^6/uL (3.5-6.1); RED CELL DISTRIBUTION WIDTH 17.5 % (11.5-14.5); WHITE BLOOD COUNT 4.3 10^3/uL (4.5-11.0)
[2018-05-22 07:33] LABS: PLATELET COUNT 47 10^3/uL (120.0-450.0)
[2018-05-22 07:36] LABS: INR 1.54; PARTIAL THROMBOPLASTIN TIME 35.1 Seconds (25.1-36.5); PROTHROMBIN TIME 17.9 SECONDS (9.4-12.5)
[2018-05-22 07:39] LABS: ALB/GLOB RATIO 0.7 (1.1-1.8); ALBUMIN 2.9 g/dL (3.0-4.8); ALT/SGPT 57 U/L (7-56); AST/SGOT 82 U/L (14-36); BLOOD UREA NITROGEN 7 mg/dL (7-21); GFR NON-AFRICAN AMERICAN > 60
[2018-05-22 08:41] VITALS: BP 120/80; PULSE 100; RESP 18; O2SAT 96
[2018-05-22 08:44] LABS: PLATELET COUNT MANUAL 57 K/mm3 (120-450)
[2018-05-22] MEDS: Potassium & Sodium Phosphate PO SCH ×2 (09:24→14:12)
[2018-05-22] MEDS: Mupirocin 2% Ointment 15 GM TUBE NS SCH (09:27)
[2018-05-22] MEDS: Multivitamin With Minerals Tab PO SCH (09:27)
--- NOTE | 2018-05-22 11:19 | CP.PCM.PN ---
Subjective - Date & Time of Evaluation Date of Evaluation: 05/22/18 Time of Evaluation: 11:17 - Subjective Subjective: PGY-2 GI progress note for Dr Vernon. No acute events noted overnight. Patient transferred out of ICU to med/surg. Patient appeared comfortable in bed. Denied any abdominal discomfort or pain to me. Denied melena or BRBPR. Stated occasional nausea. Having bowel movements. Objective - Vital Signs/Intake and Output Vital Signs (last 24 hours): Temp Pulse Resp BP Pulse Ox 97.9 F 100 H 18 120/80 96 05/22/18 08:40 05/22/18 10:01 05/22/18 08:40 05/22/18 10:01 05/22/18 08:40 - Medications Medications: Current Medications Acetaminophen (Tylenol 325mg Tab) 650 mg PO Q6H PRN PRN Reason: Pain, Mild (1-3) Last Admin: 05/22/18 10:00 Dose: 650 mg Famotidine (Pepcid) 20 mg PO DAILY [facility] Last Admin: 05/17/18 09:58 Dose: Not Given Folic Acid (Folic Acid) 1 mg PO DAILY [facility] Last Admin: 05/22/18 09:24 Dose: 1 mg Furosemide (Lasix) 20 mg PO DAILY [facility] Last Admin: 05/22/18 10:01 Dose: 20 mg Lactulose (Enulose) 20 gm PO BID [facility] Last Admin: 05/22/18 09:24 Dose: 20 gm Levalbuterol HCl (Xopenex) 0.63 mg IH [id number] PRN PRN Reason: Shortness of Breath Levetiracetam (Keppra) 1,000 mg PO Q12 [facility] Last Admin: 05/22/18 09:24 Dose: 1,000 mg Multivitamins/Minerals (Therapeutic-M Tab) 1 tab PO 0800 [facility] Last Admin: 05/22/18 09:27 Dose: 1 tab Potassium Phos/Sodium Phos (Neutra-Phos) 1 pkt PO TID [facility] Last Admin: 05/22/18 09:24 Dose: 1 pkt Propranolol HCl (Inderal) 10 mg PO TID [facility] Last Admin: 05/22/18 10:01 Dose: 10 mg Simethicone (Mylicon Chew Tab) 80 mg PO [facility] PRN PRN Reason: GI distress Last Admin: 05/16/18 20:19 Dose: 80 mg Spironolactone (Aldactone) 50 mg PO DAILY [facility] Last Admin: 05/22/18 09:24 Dose: 50 mg Sucralfate (Carafate Oral Susp) 1 gm PO 0600,1600 [facility] Last Admin: 05/22/18 05:41 Dose: 1 gm Tramadol HCl (Ultram) 50 mg PO TID PRN PRN Reason: Pain, moderate (4-7) Last Admin: 05/21/18 17:37 Dose: 50 mg - Labs Labs: 05/22/18 07:00 05/22/18 07:00 PT 17.9 SECONDS (9.4-12.5) H 05/22/18 07:00 INR 1.54 05/22/18 07:00 APTT 35.1 Seconds (25.1-36.5) 05/22/18 07:00 - Additional Findings Additional findings: - Head Exam Head Exam: absent: ATRAUMATIC, NORMAL INSPECTION Additional comments: + scalp hematoma left frontal area - Eye Exam Eye Exam: EOMI, Normal appearance, PERRL. absent: Scleral icterus - ENT Exam ENT Exam: Mucous Membranes Moist - Neck Exam Neck exam: Positive for: Normal Inspection. Negative for: Tenderness - Respiratory Exam Respiratory Exam: Clear to Auscultation Bilateral. absent: Rales, Rhonchi, Wheezes - Cardiovascular Exam Cardiovascular Exam: Tachycardia, REGULAR RHYTHM, +S1, +S2, Systolic Murmur. absent: JVD - GI/Abdominal Exam GI & Abdominal Exam: Normal Bowel Sounds. absent: Distended, Firm, Guarding, Rebound, Tenderness - Extremities Exam Extremities exam: Positive for: normal capillary refill, normal inspection. 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 GI has been consulted for cirrhosis and elevated INR: Cirrhosis Ascites -Meld score 17 -AST/ALT 105/61 on admission - downtrending -hep panel 03/2018 negative and hiv 03/2018 negative -thrombocytopenia likely 2/2 cirrhosis - heme/onc transfused 2 bags platelets and 1 bag FFP * Anti-platelet antibodies, BECKY negative were both negative on previous admission -CT abd/pelvis w/ iv contrast from 03/2018: * Cirrhosis with moderate ascites and splenomegaly -continue lactulose 20mg po bid -discontinue lasix 20mg po qd and instead started aldactone 50mg po qd to treat ascites -start carafate 1g po bid to treat gerd -pepcid currently being held for thrombocytopenia -AFP marker normal -ammonia level normal -Portal vein duplex ultrasound 05/19 showed patent portal vein; liver parechyma consistent with cirrhosis, small ascites in upper abdomen Elevated INR -no active bleeding Esophageal Varices -status post 2014 Colonic AVMs -colonoscopy 06/2015: single non-bleeding colonic angiodysplastic lesion in cecum, one 7mm polyp sigmoid colon, diverticulosis in sigmoid colon, internal hemorrhoids Previous GI procedures: -EGD 06/2015: large esophageal varices (banded), salmon-colored mucose suspicious for martinez's esophagus -colonoscopy 06/2015: single non-bleeding colonic angiodysplastic lesion in cecum, one 7mm polyp sigmoid colon, diverticulosis in sigmoid colon, internal hemorrhoids Seen and discussed with Dr Vernon.
--- NOTE | 2018-05-22 18:29 | CP.PCM.PN ---
Subjective - Date & Time of Evaluation Date of Evaluation: 05/22/18 Time of Evaluation: 18:29 - Subjective Subjective: Hematology/Oncology Progress Note (Dr. Medellin's Service) Patient seen and assessed at bedside. No acute events noted overnight. Patient denies any further complaints at this time including fevers, chills, headache, chest pain, SOB, abdominal pain, N/V/D/C, changes in urine output, skin changes or any numbness/tingling of any extremity. Objective - Vital Signs/Intake and Output Vital Signs (last 24 hours): Temp Pulse Resp BP Pulse Ox 97.9 F 100 H 18 120/80 96 05/22/18 08:40 05/22/18 10:01 05/22/18 08:40 05/22/18 10:01 05/22/18 08:40 - Labs Labs: 05/22/18 07:00 05/22/18 07:00 PT 17.9 SECONDS (9.4-12.5) H 05/22/18 07:00 INR 1.54 05/22/18 07:00 APTT 35.1 Seconds (25.1-36.5) 05/22/18 07:00 - Additional Findings Additional findings: - Constitutional Appears: Non-toxic, No Acute Distress - Head Exam Head Exam: absent: ATRAUMATIC (Healing ecchymosis to left orbit/supraorbital reg ion) - Eye Exam Eye Exam: EOMI, Normal appearance - ENT Exam ENT Exam: Mucous Membranes Moist - Neck Exam Neck Exam: Full ROM, Normal Inspection - Respiratory Exam Respiratory Exam: Clear to Ausculation Bilateral, NORMAL BREATHING PATTERN. abs ent: Accessory Muscle Use, Rales, Rhonchi, Wheezes, Respiratory Distress - Cardiovascular Exam Cardiovascular Exam: Tachycardia, REGULAR RHYTHM, +S1, +S2 - GI/Abdominal Exam GI & Abdominal Exam: Soft, Normal Bowel Sounds. absent: Tenderness - Extremities Exam Extremities Exam: Full ROM, Normal Capillary Refill, Normal Inspection. absent: Calf Tenderness, Joint Swelling, Pedal Edema, Tenderness - Neurological Exam Neurological Exam: Alert, Awake, Oriented x3 - Psychiatric Exam Psychiatric exam: Normal Affect, Normal Mood - Skin Skin Exam: Dry, Intact, Warm Assessment and Plan - Assessment and Plan (Free Text) Assessment: 63 year old female with a past medical history significant for alcohol abuse with cirrhosis and esophageal varices, cervical arthritis, and unspecified seizure disorder who presented after she was found by after a fall. CT Head showed resolving parieto-occipital hematoma. A follow-up MRI confirmed the findings along with a smaller hematoma in the left occipital lobe. She has a history of thrombocytopenia, and has been transfused three units of platelets. Plan: -Manual platelet count (05/22): 57 -S/P three unit of platelets -INR (05/22): 1.54 -S/P one unit of FFP -Continue daily Multivitamin and Folic Acid supplementation -Daily CBC with differential, manual platelet count and coagulation profiles -Continue further treatment per GI, Neurology and Primary team's -Further recommendations as per Dr. Medellin. Disposition: Our goal is to have the patient on Promacta as an outpatient for her thrombocytopenia. Patient to be transferred to the TCU. Patient seen and case discussed with attending, Dr. Medellin. Javed Amos PGY2
--- NOTE | 2018-05-24 06:04 | DS ---
HISTORY OF PRESENT ILLNESS: This is a 63-year-old woman, who was brought to the emergency room by ambulance and found on the floor by her . She did not recall the events surrounding the fall. Deny any chest pain, palpitations, or lightheadedness. Her clothes were quite a bit disheveled when her found her. She may have fallen in bathroom and crawled to the kitchen. There were abrasions to the left frontal and periorbital area as well as the right humerus on the lateral side. PAST MEDICAL HISTORY: The patient has history of thrombocytopenia, alcoholic cirrhosis, esophageal varices, and peptic ulcer. She had cervical spine surgery in the past. She is status post right hip replacement. She has not been drinking for the past several months, although is reported that she has an occasional glass of wine with dinner. Past history is significant for intracerebral hemorrhage in the left posterior parietal area in approximately 1 month ago. She did well with physical therapy at the rehab facility and was home for only 5 days before this fall and admission. SOCIAL HISTORY: The patient continues to smoke a half a pack a day. ALLERGIES: SHE IS KNOWN TO BE ALLERGIC TO PENICILLIN WHICH CAUSED A RASH IN THE PAST. MEDICATIONS: Include Coreg 3.125 twice a day, Pepcid 20 daily, Lasix 20 mg daily, lactulose 20 mg daily, and Keppra 1000 mg twice a day. COURSE OF HOSPITAL STAY: The patient was admitted to the intensive care unit. She was followed by fabricator assembler metal products as well as the hospital appliance parts counter clerk. There was a great concern because of the severity of her thrombocytopenia. Other than the ecchymosis on the arm there was no further bleeding episodes. The patient became more awake and alert and clear. Did well and was ready for discharge to transitional care unit for additional physical therapy and conditioning. On the date of discharge, 11/19/2017, the patient was seen, was quite comfortable, some generalized volume overload, was noted with swelling in the lower extremities; therefore Lasix will be ordered and continued when she goes to the transitional care unit. I may adjust her beta yousif as well and use some Tylenol for arthritis pain. Case was discussed with Hematology fellow in view of her thrombocytopenia, felt to be related to her cirrhosis and long history of alcohol suppressed marrow. The patient will leave the medical floor today for transitional care unit as a bed is available. DISCHARGE DIAGNOSES: 1. Fall at home with loss of consciousness and retrograde amnesia. 2. Severe thrombocytopenia. 3. Alcohol suppressed bone marrow. 4. Cirrhosis. 5. Ascites. 6. Volume overload. 7. Electrolyte abnormalities and hypokalemia. Abilio Bass MD
== END 2018-05-22 15:18 | DRG 82 ==
LOC: ED 15:21 → ERH 18:09 → 2RSO 21:48 → OBSVTOIN 05-16 10:47 → ICU 05-16 13:24 → 5RNO 05-21 18:10
PROVIDERS: ADMIT Internal Medicine; ATTEND Internal Medicine
PROC: 6A550Z2 Pheresis of Platelets, Single (ICD-10-PCS; principal; 2018-05-17)
PROC: 6A550Z2 Pheresis of Platelets, Single (ICD-10-PCS; 2018-05-18)
PROC: 30233K1 Transfusion of Nonautologous Frozen Plasma into Peripheral Vein, Percutaneous Approach (ICD-10-PCS; 2018-05-18)
PROC: 6A550Z2 Pheresis of Platelets, Single (ICD-10-PCS; 2018-05-20)
DX: S06.369A Traumatic hemorrhage of cerebrum, unspecified, with loss of consciousness of unspecified duration, initial encounter (principal); G93.6 Cerebral edema; I69.351 Hemiplegia and hemiparesis following cerebral infarction affecting right dominant side; I85.10 Secondary esophageal varices without bleeding; J90 Pleural effusion, not elsewhere classified; W19.XXXA Unspecified fall, initial encounter; R41.2 Retrograde amnesia; D69.6 Thrombocytopenia, unspecified; E87.5 Hyperkalemia; E87.6 Hypokalemia; E87.70 Fluid overload, unspecified; D64.9 Anemia, unspecified; F10.10 Alcohol abuse, uncomplicated; F17.210 Nicotine dependence, cigarettes, uncomplicated; G40.909 Epilepsy, unspecified, not intractable, without status epilepticus; G47.30 Sleep apnea, unspecified; G93.89 Other specified disorders of brain; I49.3 Ventricular premature depolarization; K22.70 Barrett's esophagus without dysplasia; K57.90 Diverticulosis of intestine, part unspecified, without perforation or abscess without bleeding; K70.31 Alcoholic cirrhosis of liver with ascites; M46.92 Unspecified inflammatory spondylopathy, cervical region; M81.0 Age-related osteoporosis without current pathological fracture; R79.1 Abnormal coagulation profile; S60.512A Abrasion of left hand, initial encounter; Y92.009 Unspecified place in unspecified non-institutional (private) residence as the place of occurrence of the external cause; Z87.11 Personal history of peptic ulcer disease; Z87.19 Personal history of other diseases of the digestive system; Z91.81 History of falling; Z96.641 Presence of right artificial hip joint

== ENCOUNTER 2018-05-22 15:18 | Inpatient (IN) | payer BC, OTHER ==
[2018-05-22 15:50] VITALS: BMI 22.9
[2018-05-22] MEDS ORDERED: Levalbuterol 0.63 MG/3 ML Inhal Soln UD IH PRN (16:03)
[2018-05-22] MEDS ORDERED: Simethicone 80 mg Chewtab PO PRN (16:03)
[2018-05-22] MEDS: Potassium & Sodium Phosphate PO SCH (17:57)
[2018-05-23] MEDS: Sucralfate 1 gm/10 ml Oral Susp UD PO SCH ×2 (05:29→16:55)
[2018-05-23 07:20] LABS: BASO # 0.03 K/mm3 (0.0-2.0); BASO % 0.8 % (0.0-3.0); EOS # 0.2 (0.0-0.7); EOS % 4.5 % (1.5-5.0); GRAN # 2.01 (1.4-6.5); GRAN % 53.5 % (50.0-68.0); HEMOGLOBIN 9.9 g/dL (12.0-16.0); LYMPH # 0.8 (1.2-3.4); LYMPH % 21.5 % (22.0-35.0); MEAN CELL VOLUME 95.8 fl (80.0-105.0); MEAN CORPUSCULAR HEMOGLOBIN 31.7 pg (25.0-35.0); MEAN CORPUSCULAR HGB CONC 33.1 g/dl (31.0-37.0); MEAN PLATELET VOLUME 9.9 fl (7.0-11.0); MONO # 0.7 (0.1-0.6); MONO % 19.7 % (1.0-6.0); RBC 3.12 10^6/uL (3.5-6.1); RED CELL DISTRIBUTION WIDTH 17.7 % (11.5-14.5); WHITE BLOOD COUNT 3.8 10^3/uL (4.5-11.0)
[2018-05-23 07:36] LABS: PLATELET COUNT 48 10^3/uL (120.0-450.0)
[2018-05-23 08:25] LABS: PLATELET COUNT MANUAL 50 K/mm3 (120-450)
[2018-05-23] MEDS: Multivitamin Therapeutic Tab PO SCH (08:55)
[2018-05-23] MEDS: Potassium & Sodium Phosphate PO SCH ×3 (09:55→17:40)
--- NOTE | 2018-05-23 10:01 | CP.PCM.CON ---
<Mohamud Freeman - Last Filed: 05/23/18 09:58> History of Present Illness - History of Present Illness History of Present Illness: GI Fellow PGY4, consult note. Patient has been seen for the last several days in the inpatient setting after fall at home. She has etoh cirrhosis, decompensated. We are managing cirrhosis relatated medications. Today, she complains of frequent BMs, several per day. She is making good urine and able to tolerate a diet. 12pt ROS completed and negative except for above. Past Patient History - Infectious Disease Hx of Infectious Diseases: None - Tetanus Immunizations Tetanus Immunization: Unknown - Past Social History Smoking Status: Never Smoked - CARDIAC Hx Cardiac Disorders: No - PULMONARY Hx Respiratory Disorders: Yes Hx Sleep Apnea: Yes - NEUROLOGICAL Hx Neurological Disorder: Yes HX Cerebrovascular Accident: Yes (03/2018) Other/Comment: Spinal Stenosis , T7-8 Paracentral disc Protusion , C5-6 Disc Bulge , C3 Arthropy on right side - HEENT Hx HEENT Problems: No - RENAL Hx Chronic Kidney Disease: No - ENDOCRINE/METABOLIC Hx Endocrine Disorders: No - HEMATOLOGICAL/ONCOLOGICAL Hx Blood Disorders: Yes Hx AIDS: No Hx Anemia: Yes Hx Cancer: No Hx Chemotherapy: No Hx Cirrhosis: Yes (2014 dx Cirrhosis of the liver) Hx Hepatitis A: No Hx Hepatitis B: No Hx Hepatitis C: No Hx Human Immunodeficiency Virus (HIV): No Hx Metastesis: No Hx Shingles: No Other/Comment: Hx of peptic ulcers, Esophageal varices, erosive Esophagitis. - INTEGUMENTARY Hx Dermatological Problems: No - MUSCULOSKELETAL/RHEUMATOLOGICAL Hx Falls: Yes - GASTROINTESTINAL Hx Gastrointestinal Disorders: Yes - GENITOURINARY/GYNECOLOGICAL Hx Genitourinary Disorders: No Hx Reproductive Disorders: No - PSYCHIATRIC Hx Psychophysiologic Disorder: No - SURGICAL HISTORY Hx Surgeries: Yes Hx Musculoskeletal Surgery: Yes (right hip replacement) - ANESTHESIA Hx Anesthesia Reactions: No Hx Malignant Hyperthermia: No Meds Allergies/Adverse Reactions: Allergies Allergy/AdvReac Type Severity Reaction Status Date / Time Penicillins Allergy RASH Verified 03/21/18 13:59 - Medications Medications: Current Medications Acetaminophen (Tylenol 325mg Tab) 650 mg PO Q6H PRN; Protocol PRN Reason: Pain, Mild (1-3) Famotidine (Pepcid) 20 mg PO HS [facility]; Protocol Last Admin: 11/02/18 21:13 Dose: 20 mg Folic Acid (Folic Acid) 1 mg PO DAILY [facility]; Protocol Furosemide (Lasix) 20 mg PO 0600 [facility]; Protocol Last Admin: 05/23/18 05:30 Dose: 20 mg Lactulose (Enulose) 20 gm PO BID [facility]; Protocol Last Admin: 05/22/18 17:56 Dose: 20 gm Levalbuterol HCl (Xopenex) 0.63 mg IH [id number] PRN; Protocol PRN Reason: Shortness of Breath Levetiracetam (Keppra) 1,000 mg PO Q12 [facility]; Protocol Last Admin: 05/22/18 21:13 Dose: 1,000 mg Multivitamins (Thera Tab) 1 tab PO 0800 [facility]; Protocol Potassium Phos/Sodium Phos (Neutra-Phos) 1 pkt PO TID [facility]; Protocol Last Admin: 05/22/18 17:57 Dose: 1 pkt Propranolol HCl (Inderal) 10 mg PO TID [facility]; Protocol Last Admin: 05/22/18 17:57 Dose: 10 mg Simethicone (Mylicon Chew Tab) 80 mg PO HS PRN; Protocol PRN Reason: GI distress Spironolactone (Aldactone) 50 mg PO DAILY [facility]; Protocol Sucralfate (Carafate Oral Susp) 1 gm PO 0600,1600 [facility]; Protocol Last Admin: 05/23/18 05:29 Dose: 1 gm Tramadol HCl (Ultram) 50 mg PO TID PRN; Protocol PRN Reason: Pain, moderate (4-7) Physical Exam - Constitutional Appears: Well, No Acute Distress, Chronically Ill - Head Exam Head Exam: NORMAL INSPECTION - Eye Exam Eye Exam: Normal appearance - ENT Exam ENT Exam: Mucous Membranes Moist - Respiratory Exam Respiratory Exam: Clear to Auscultation Bilateral, NORMAL BREATHING PATTERN - Cardiovascular Exam Cardiovascular Exam: REGULAR RHYTHM, +S1, +S2 - GI/Abdominal Exam GI & Abdominal Exam: Normal Bowel Sounds, Soft. absent: Tenderness - Extremities Exam Extremities exam: Positive for: normal inspection - Neurological Exam Neurological exam: Alert, Oriented x3 - Psychiatric Exam Psychiatric exam: Normal Affect, Normal Mood - Skin Skin Exam: Dry, Normal Color Results - Vital Signs Recent Vital Signs: Last Vital Signs Temp Pulse 70 05/22/18 17:57 Resp BP 126/76 05/23/18 05:30 Pulse Ox - Labs Result Diagrams: 05/23/18 05:15 Labs: Laboratory Results - last 24 hr 05/23/18 05:15 WBC 3.8 L RBC 3.12 L Hgb 9.9 L Hct 29.9 L MCV 95.8 MCH 31.7 MCHC 33.1 RDW 17.7 H Plt Count 48 L* Manual Plt Count 50 L MPV 9.9 Gran % 53.5 Lymph % (Auto) 21.5 L Jackson % (Auto) 19.7 H Eos % (Auto) 4.5 Baso % (Auto) 0.8 Gran # 2.01 Lymph # (Auto) 0.8 L Jackson # (Auto) 0.7 H Eos # (Auto) 0.2 Baso # (Auto) 0.03 Assessment & Plan - Assessment and Plan (Free Text) Assessment: Mrs Collado is a 63 year old female with PMHx of alcohol cirrhosis, esophageal varices, thrombocytopenia, spinal stenosis, arthritis, DJD, 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 GI has been consulted for cirrhosis and elevated INR: Cirrhosis Ascites -Meld score 18 -hep panel 03/2018 negative and hiv 03/2018 negative -thrombocytopenia likely 2/2 cirrhosis - heme/onc transfused 2 bags platelets a nd 1 bag FFP * Anti-platelet antibodies, BECKY negative were both negative on previous admission -CT abd/pelvis w/ iv contrast from 03/2018: * Cirrhosis with moderate ascites and splenomegaly -continue lactulose 20mg po daily. Goal of 2 soft BMs daily. Titrate as needed. -discontinue lasix 20mg po qd and instead started aldactone 50mg po qd to treat ascites. Patient had fall on admission, and concern lasix may have contributed. -start carafate 1g po bid to treat gerd -pepcid currently being held for thrombocytopenia -AFP marker normal -ammonia level normal -Portal vein duplex ultrasound 05/19 showed patent portal vein; liver parechyma consistent with cirrhosis, small ascites in upper abdomen Esophageal Varices -status post bands 2014 Colonic AVMs -colonoscopy 06/2015: single non-bleeding colonic angiodysplastic lesion in cecum, one 7mm polyp sigmoid colon, diverticulosis in sigmoid colon, internal hemorrhoids Previous GI procedures: -EGD 06/2015: large esophageal varices (banded), salmon-colored mucose suspiciou s for martinez's esophagus -colonoscopy 06/2015: single non-bleeding colonic angiodysplastic lesion in cecum, one 7mm polyp sigmoid colon, diverticulosis in sigmoid colon, internal hemorrhoids - Date & Time Date: 05/23/18 Time: 10:01 <Saulo,Kovil V - Last Filed: 05/23/18 20:14> Meds - Medications Medications: Current Medications Acetaminophen (Tylenol 325mg Tab) 650 mg PO Q6H PRN; Protocol PRN Reason: Pain, Mild (1-3) Last Admin: 05/23/18 18:34 Dose: 650 mg Famotidine (Pepcid) 20 mg PO HS [facility]; Protocol Last Admin: 05/22/18 21:13 Dose: 20 mg Folic Acid (Folic Acid) 1 mg PO DAILY [facility]; Protocol Last Admin: 05/23/18 10:55 Dose: 1 mg Lactulose (Enulose) 20 gm PO DAILY [facility]; Protocol Levalbuterol HCl (Xopenex) 0.63 mg IH [id number] PRN; Protocol PRN Reason: Shortness of Breath Levetiracetam (Keppra) 1,000 mg PO Q12 [facility]; Protocol Last Admin: 05/23/18 10:55 Dose: 1,000 mg Multivitamins (Thera Tab) 1 tab PO 0800 [facility]; Protocol Last Admin: 05/23/18 08:55 Dose: 1 tab Potassium Phos/Sodium Phos (Neutra-Phos) 1 pkt PO TID [facility]; Protocol Last Admin: 05/23/18 17:40 Dose: 1 pkt Propranolol HCl (Inderal) 10 mg PO TID [facility]; Protocol Last Admin: 05/23/18 17:40 Dose: 10 mg Simethicone (Mylicon Chew Tab) 80 mg PO [facility] PRN; Protocol PRN Reason: GI distress Spironolactone (Aldactone) 50 mg PO DAILY [facility]; Protocol Last Admin: 05/23/18 10:55 Dose: 50 mg Sucralfate (Carafate Oral Susp) 1 gm PO 0600,1600 [facility]; Protocol Last Admin: 05/23/18 16:55 Dose: 1 gm Tramadol HCl (Ultram) 50 mg PO TID PRN; Protocol PRN Reason: Pain, moderate (4-7) Last Admin: 05/23/18 18:34 Dose: 50 mg Results - Vital Signs Recent Vital Signs: Last Vital Signs Temp 97.6 F 05/23/18 16:00 Pulse 77 05/23/18 17:40 Resp 18 05/23/18 16:00 BP 101/60 05/23/18 17:40 Pulse Ox 98 05/23/18 16:00 - Labs Result Diagrams: 05/23/18 05:15 Labs: Laboratory Results - last 24 hr 05/23/18 05:15 WBC 3.8 L RBC 3.12 L Hgb 9.9 L Hct 29.9 L MCV 95.8 MCH 31.7 MCHC 33.1 RDW 17.7 H Plt Count 48 L* Manual Plt Count 50 L MPV 9.9 Gran % 53.5 Lymph % (Auto) 21.5 L Jackson % (Auto) 19.7 H Eos % (Auto) 4.5 Baso % (Auto) 0.8 Gran # 2.01 Lymph # (Auto) 0.8 L Jackson # (Auto) 0.7 H Eos # (Auto) 0.2 Baso # (Auto) 0.03 Attending/Attestation - Attestation I have personally seen and examined this patient.: Yes I have fully participated in the care of the patient.: Yes I have reviewed all pertinent clinical information: Yes Notes (Text): This is an addendum to GI progress report dictated by the GI Fellow.The patient was seen and examined earlier. Medical records, lab studies, imagings were reviewed. Last 24 hours events reviewed. Agreed with the above treatment plan as outlined in GI Fellow 's notes with the addition of the following feels better Abdominal discomfort has improved Continue the diuretics Follow-up electrolytes Follow-up hemoglobin and platelets 05/23/18 20:13
--- NOTE | 2018-05-24 00:57 | PN ---
DATE: 05/23/2018 DAILY PROGRESS NOTE SUBJECTIVE: The patient seen this Friday morning in Transitional Care Unit in room 322, bed 2. She is awake, alert and clear and in good spirits and feeling markedly improved after moderate diuresis after her Lasix was resumed. I explained to her that some of the volume overload noted yesterday upon her transfer from the medical floor to the Transitional Care Unit, was related to IV fluids, IV medications, intravenous medicines given, etc. We will continue the Lasix and spironolactone both and follow closely. I explained to her that this will be ongoing monitored process after a close medical followup. I encouraged her to engage in the activities in the unit, physical therapy, exercise condition and strengthening as well as rehab from her recent hemorrhagic CVA only a month or so ago. Abilio Bass MD
[2018-05-24] MEDS: Sucralfate 1 gm/10 ml Oral Susp UD PO SCH ×2 (05:30→17:38)
--- NOTE | 2018-05-24 07:06 | HP ---
DATE OF EXAM: CHIEF COMPLAINT: Deconditioning as per recent hospital stay. The patient comes to transitional care unit for additional physical therapy, conditioning, and monitoring of ongoing medical issues. HISTORY OF PRESENT ILLNESS: This is a [id number] who looks older than her stated age, who came to the emergency room after found on the floor at her home by her . She did not recall the events surrounding the fall or how she got into the kitchen. The last recall was being in the bathroom. Admitted after a stay in intensive care. The patient was hemodynamically stable, severe thrombocytopenia persisted, but she was out of bed and ready to increase her ambulation activity, and then she will comes to the transitional care unit for additional physical therapy and conditioning. PAST MEDICAL HISTORY: Significant for, cervical disk surgery. There is also history of alcoholic cirrhosis, esophageal varices and peptic ulcer. She is status post right hip replacement. She had not period of time for several months, when she has not been drinking, although recently she may have been having an occasionally wine with dinner. She suffered intracerebral bleed of the left posterior parietal and occipital areas approximately one month ago and was at a subacute rehab facility until 5 days ago when she returned home. SOCIAL HISTORY: The patient continues to smoke half a pack of cigarettes a day. ALLERGIES: SHE IS KNOWN TO BE ALLERGIC TO PENICILLIN WHICH CAUSED A RASH IN THE PAST. MEDICATIONS: Include Coreg 3.125 b.i.d, Pepcid 20 mg daily, Lasix 20 mg daily, lactulose daily, and Keppra 1000 mg b.i.d. REVIEW OF SYSTEMS: Significant for aches and pains after the fall with bruises on the arm that she complains of. PHYSICAL EXAMINATION: GENERAL: The patient was seen this Friday on the floor prior to departure over transitional care. There is some degree of volume overload noted in the extremities and the abdomen. HEENT: Other than that, head and neck are unremarkable. Conjunctivae pink. Sclerae are muddy and possibly icteric. LUNGS: Show good aeration, right and left. HEART: Regular, not tachycardic with murmurs present. ABDOMEN: Protuberant somewhat tense with anasarca, ascites and edema present in the skin. EXTREMITIES: Show +1 to +2 soft edema. PLAN: The patient is admitted to transitional care unit. We will start Lasix and continue and we will monitor her closely on TCU. Abilio Bass MD PANCHO
[2018-05-24 07:32] LABS: BASO # 0.02 K/mm3 (0.0-2.0); BASO % 0.5 % (0.0-3.0); EOS # 0.2 (0.0-0.7); EOS % 4.3 % (1.5-5.0); GRAN # 2.21 (1.4-6.5); GRAN % 52.9 % (50.0-68.0); HEMOGLOBIN 9.7 g/dL (12.0-16.0); LYMPH # 1.1 (1.2-3.4); LYMPH % 26.3 % (22.0-35.0); MEAN CELL VOLUME 96.7 fl (80.0-105.0); MEAN CORPUSCULAR HEMOGLOBIN 31.8 pg (25.0-35.0); MEAN CORPUSCULAR HGB CONC 32.9 g/dl (31.0-37.0); MONO # 0.7 (0.1-0.6); RBC 3.05 10^6/uL (3.5-6.1); RED CELL DISTRIBUTION WIDTH 17.8 % (11.5-14.5); WHITE BLOOD COUNT 4.2 10^3/uL (4.5-11.0)
[2018-05-24] MEDS: Multivitamin Therapeutic Tab PO SCH (08:14)
[2018-05-24] MEDS: Potassium & Sodium Phosphate PO SCH ×3 (09:54→17:38)
--- NOTE | 2018-05-24 18:48 | CP.PCM.PN ---
Subjective - Date & Time of Evaluation Date of Evaluation: 05/23/18 Time of Evaluation: 19:00 - Subjective Subjective: No acute events ROS: 12 ROS negative Objective - Vital Signs/Intake and Output Vital Signs (last 24 hours): Temp Pulse Resp BP Pulse Ox 97.6 F 72 18 126/85 98 05/23/18 16:00 05/24/18 13:24 05/23/18 16:00 05/24/18 10:34 05/23/18 16:00 - Medications Medications: Current Medications Acetaminophen (Tylenol 325mg Tab) 650 mg PO Q6H PRN; Protocol PRN Reason: Pain, Mild (1-3) Last Admin: 05/23/18 18:34 Dose: 650 mg Famotidine (Pepcid) 20 mg PO HS [facility]; Protocol Last Admin: 05/23/18 21:22 Dose: 20 mg Folic Acid (Folic Acid) 1 mg PO DAILY [facility]; Protocol Last Admin: 05/24/18 09:53 Dose: 1 mg Furosemide (Lasix) 20 mg PO DAILY [facility] Last Admin: 05/24/18 10:34 Dose: 20 mg Lactulose (Enulose) 20 gm PO DAILY [facility]; Protocol Last Admin: 05/24/18 09:52 Dose: 20 gm Levalbuterol HCl (Xopenex) 0.63 mg IH [id number] PRN; Protocol PRN Reason: Shortness of Breath Levetiracetam (Keppra) 1,000 mg PO Q12 [facility]; Protocol Last Admin: 05/24/18 09:53 Dose: 1,000 mg Multivitamins (Thera Tab) 1 tab PO 0800 [facility]; Protocol Last Admin: 05/24/18 08:14 Dose: 1 tab Potassium Phos/Sodium Phos (Neutra-Phos) 1 pkt PO TID [facility]; Protocol Last Admin: 05/24/18 17:38 Dose: 1 pkt Propranolol HCl (Inderal) 10 mg PO TID [facility]; Protocol Last Admin: 05/24/18 17:38 Dose: 10 mg Simethicone (Mylicon Chew Tab) 80 mg PO PCHS PRN; Protocol PRN Reason: GI distress Spironolactone (Aldactone) 50 mg PO DAILY [facility]; Protocol Last Admin: 05/24/18 09:52 Dose: 50 mg Sucralfate (Carafate Oral Susp) 1 gm PO 0600,1600 [facility]; Protocol Last Admin: 05/24/18 17:38 Dose: 1 gm Tramadol HCl (Ultram) 50 mg PO TID PRN; Protocol PRN Reason: Pain, moderate (4-7) Last Admin: 05/24/18 17:43 Dose: 50 mg - Labs Labs: 05/24/18 07:24 - Constitutional Appears: Well - Eye Exam Eye Exam: EOMI, Normal appearance, PERRL - ENT Exam ENT Exam: Mucous Membranes Moist, Normal Exam - Respiratory Exam Respiratory Exam: Clear to Ausculation Bilateral, NORMAL BREATHING PATTERN - Cardiovascular Exam Cardiovascular Exam: Bradycardia - GI/Abdominal Exam GI & Abdominal Exam: Soft, Normal Bowel Sounds. absent: Tenderness - Extremities Exam Extremities Exam: Full ROM, Normal Capillary Refill, Normal Inspection. absent: Joint Swelling, Pedal Edema Assessment and Plan - Assessment and Plan (Free Text) Assessment: Ms. Collado is a 63 y/o woman with a pmhx signfiicant for ETOH cirrohsis c/b esophageal varices, spinal stenosis, arthritis, disk degenerative disease, left parietoccpital infarct/hemorrhage, s/p rehab who presented after having been found down on the floor in unclear curcumstances. For now plt threshold is to transfus for less than 50. Thrombocytopenia is long standing and multifactorial but likely due to liver disease and historic ETOH abuse.
--- NOTE | 2018-05-24 18:49 | CP.PCM.PN ---
Subjective - Date & Time of Evaluation Date of Evaluation: 05/24/18 Time of Evaluation: 19:00 - Subjective Subjective: No acute events ROS: 12 ROS negative otherwise Objective - Vital Signs/Intake and Output Vital Signs (last 24 hours): Temp Pulse Resp BP Pulse Ox 97.6 F 72 18 126/85 98 05/23/18 16:00 05/24/18 13:24 05/23/18 16:00 05/24/18 10:34 05/23/18 16:00 - Medications Medications: Current Medications Acetaminophen (Tylenol 325mg Tab) 650 mg PO Q6H PRN; Protocol PRN Reason: Pain, Mild (1-3) Last Admin: 05/23/18 18:34 Dose: 650 mg Famotidine (Pepcid) 20 mg PO HS [facility]; Protocol Last Admin: 05/23/18 21:22 Dose: 20 mg Folic Acid (Folic Acid) 1 mg PO DAILY [facility]; Protocol Last Admin: 05/24/18 09:53 Dose: 1 mg Furosemide (Lasix) 20 mg PO DAILY [facility] Last Admin: 05/24/18 10:34 Dose: 20 mg Lactulose (Enulose) 20 gm PO DAILY [facility]; Protocol Last Admin: 05/24/18 09:52 Dose: 20 gm Levalbuterol HCl (Xopenex) 0.63 mg IH [id number] PRN; Protocol PRN Reason: Shortness of Breath Levetiracetam (Keppra) 1,000 mg PO Q12 [facility]; Protocol Last Admin: 05/24/18 09:53 Dose: 1,000 mg Multivitamins (Thera Tab) 1 tab PO 0800 [facility]; Protocol Last Admin: 05/24/18 08:14 Dose: 1 tab Potassium Phos/Sodium Phos (Neutra-Phos) 1 pkt PO TID [facility]; Protocol Last Admin: 05/24/18 17:38 Dose: 1 pkt Propranolol HCl (Inderal) 10 mg PO TID [facility]; Protocol Last Admin: 05/24/18 17:38 Dose: 10 mg Simethicone (Mylicon Chew Tab) 80 mg PO PCHS PRN; Protocol PRN Reason: GI distress Spironolactone (Aldactone) 50 mg PO DAILY [facility]; Protocol Last Admin: 05/24/18 09:52 Dose: 50 mg Sucralfate (Carafate Oral Susp) 1 gm PO 0600,1600 [facility]; Protocol Last Admin: 05/24/18 17:38 Dose: 1 gm Tramadol HCl (Ultram) 50 mg PO TID PRN; Protocol PRN Reason: Pain, moderate (4-7) Last Admin: 05/24/18 17:43 Dose: 50 mg - Labs Labs: 05/24/18 07:24 - Constitutional Appears: Well - Respiratory Exam Respiratory Exam: Clear to Ausculation Bilateral, NORMAL BREATHING PATTERN - Cardiovascular Exam Cardiovascular Exam: REGULAR RHYTHM, +S1, +S2. absent: Murmur - Skin Skin Exam: Dry, Intact, Normal Color, Warm Assessment and Plan - Assessment and Plan (Free Text) Assessment: Ms. Collado is a 63 y/o woman with a pmhx signfiicant for ETOH cirrohsis c/b esophageal varices, spinal stenosis, arthritis, disk degenerative disease, left parietoccpital infarct/hemorrhage, s/p rehab who presented after having been found down on the floor in unclear curcumstances. For now plt threshold is to transfus for less than 50. Thrombocytopenia is long standing and multifactorial but likely due to liver disease and historic ETOH abuse.
--- NOTE | 2018-05-24 21:10 | PN ---
DATE: 05/24/2018 SUBJECTIVE: The patient was seen this Friday morning in room 322, bed 2, as she was getting out of bed. She is feeling much improved. Small dose of Lasix seemed to have worked wonders in reducing the peripheral edema. There is some question as to whether she was on Lasix at home prior to this admission. The patient does not recall that medication; however, review of her prescription pharmacy record shows that it was prescribed a few days ago, probably when she left the rehab facility. Therefore, we will continue Lasix 20 mg daily along with spironolactone for her cirrhosis and ascites. The patient is in good spirits and able to ambulate, looking forward to more physical therapy as we follow with Hematology regarding her severe thrombocytopenia. Physical exam in unremarkable. We will continue physical therapy in [place]. Abilio Bass MD
[2018-05-25] MEDS: Sucralfate 1 gm/10 ml Oral Susp UD PO SCH ×2 (05:29→17:00)
[2018-05-25 06:50] LABS: ALB/GLOB RATIO 0.7 (1.1-1.8); ALBUMIN 2.7 g/dL (3.0-4.8); ALT/SGPT 47 U/L (7-56); AST/SGOT 61 U/L (14-36); BLOOD UREA NITROGEN 9 mg/dL (7-21); GFR NON-AFRICAN AMERICAN > 60
[2018-05-25 07:00] LABS: BASO # 0.02 K/mm3 (0.0-2.0); BASO % 0.5 % (0.0-3.0); EOS # 0.2 (0.0-0.7); EOS % 5.3 % (1.5-5.0); GRAN # 2.07 (1.4-6.5); GRAN % 49.7 % (50.0-68.0); HEMOGLOBIN 9.8 g/dL (12.0-16.0); LYMPH # 1.2 (1.2-3.4); LYMPH % 28.6 % (22.0-35.0); MEAN CELL VOLUME 96.4 fl (80.0-105.0); MEAN CORPUSCULAR HEMOGLOBIN 31.9 pg (25.0-35.0); MEAN CORPUSCULAR HGB CONC 33.1 g/dl (31.0-37.0); MEAN PLATELET VOLUME 9.3 fl (7.0-11.0); MONO # 0.7 (0.1-0.6); MONO % 15.9 % (1.0-6.0); RBC 3.07 10^6/uL (3.5-6.1); RED CELL DISTRIBUTION WIDTH 17.9 % (11.5-14.5); WHITE BLOOD COUNT 4.2 10^3/uL (4.5-11.0)
[2018-05-25] MEDS: Multivitamin Therapeutic Tab PO SCH (08:30)
--- NOTE | 2018-05-25 08:41 | CON ---
DATE: 05/23/2018 AGE: A 63-year-old woman. CHIEF COMPLAINT: Recent syncopal event and seizure. 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 She came to the hospital because her had found her on the floor, but it was syncope versus a seizure, and had low platelet count. Her repeat MRI of the brain on the medical side showed resolving large left subacute hematoma in the left parietal-occipital lobe with mild vasogenic edema measuring 2.8 x 2.5 x 5,2 with small 1.7 x 1.8 subacute hematoma on the left occipital lobe with small petechial hemorrhage in the left centrum semiovale. Not on any antiplatelet drugs. She is currently in [facility] for rehabilitation. Her platelet count has apparently come up. Her syncopal episode at that time was likely secondary to transient cerebral hypoperfusion and a possible breakthrough seizure from underlying encephalomalacia on the left parietooccipital area. At this time, she is doing much better, moving all extremities. GI is on board for underlying cirrhosis with moderate ascites and splenomegaly. The patient is on Aldactone 50 mg daily for ascites. Ammonia level is normal. PAST MEDICAL HISTORY: As above. SOCIAL HISTORY: History of former EtOH abuse and Illicit drug use. Currently, not at all right now. ALLERGIES: TO PENICILLIN. FAMILY HISTORY: Noncontributory. MEDICATIONS: Reviewed by nurse per reconciliation sheet. REVIEW OF SYSTEMS: A 14-point review of systems is negative except as per the HPI. CURRENT LABORATORIES: WBC is 3.8, hemoglobin 9.9, hematocrit 29.9, platelet count of 48, sodium is 137, potassium 4.7, chloride 105, carbon dioxide 28, BUN of 8, creatinine 0.6, and random glucose 92. PHYSICAL EXAMINATION: VITAL SIGNS: Temperature 97.6, pulse rate 77, blood pressure 101/60, respiratory rate 18, oxygen saturation 98% on room air. GENERAL: The patient is sitting up in bed, in no acute distress. HEENT: Atraumatic, normocephalic. PERRLA. Extraocular muscles intact. NECK: Supple. No JVD. No adenopathy noted. LUNGS: Clear to auscultation. No adventitious sounds. HEART: S1, S2. Normal rate and rhythm. No murmurs, rubs, or gallops. ABDOMEN: Soft, nontender, and nondistended. Bowel sounds are present. EXTREMITIES: No clubbing. No cyanosis. Peripheral pulses 2+ felt bilaterally. NEUROLOGIC: The patient has a left scalp bruising on the forehead, which is healing. She is A and O x 3. Recall after five minutes is 0/3. Poor attention span. Slow thought process. Cranial nerves II through XII are intact. Motor exam: Moves all extremities equally. No pronator drift seen except for mild right-sided weakness from prior CVA. Toes are downgoing bilaterally. Sensory examination: Light touch and pinprick are decreased up to the calves bilaterally. Decreased vibration of the toes. Proprioception is intact bilaterally. DTRs are 2+ throughout and 1 at both knees and ankles. Coordination: [id number] intact. No dysmetria noted. Gait is deferred for now. ASSESSMENT AND PLAN: A 63-year-old woman with history of alcoholic cirrhosis, history of esophageal varices, spinal stenosis, osteoarthritis, disc degenerative disease with history of left parieto-occipital infarcts/hemorrhage in the past, status post rehabilitation as well as seizure in the past, on Keppra, had a syncopal episode and a mild concussion, had low systolic and diastolic blood pressures, which could cause syncope versus breakthrough seizure from intracranial hematoma. The MRI of the brain showed resolving left subacute hematoma, left parieto-occipital lobe mild vasogenic edema, measuring 2.8 x 2.5 x 5.2 and a smaller 1.7 x 1.8 subacute, on the left occipital lobe, small petechial hemorrhage in the left anterior centrum semiovale. RECOMMENDATIONS: At this time, we recommend: 1. Continue to keep the blood pressures at 130s to 140s systolic and diastolic 70s to 80s. 2. Continue with Keppra 1000 mg p.o. b.i.d. for seizure prophylaxis. 3. Continue to monitor INR, PTT as well as platelet counts for underlying thrombocytopenia. Hematology followup as needed. 4. Continue with GI management for underlying alcoholic cirrhosis and ascites, on Aldactone. Continue with PT, OT and further rehabilitation. Thank you for this consult. Nguyễn Thornton MD
--- NOTE | 2018-05-25 09:59 | CP.PCM.PN ---
<Ta Chicas - Last Filed: 05/25/18 09:56> Subjective - Date & Time of Evaluation Date of Evaluation: 05/25/18 Time of Evaluation: 09:56 - Subjective Subjective: PGY-2 GI progress note for Dr Vernon. No acute events noted overnight. Patient seen in TCU. Patient appeared comfortable in bed. Denied any abdominal discomfort or pain to me. Denied melena or BRBPR. Stated occasional nausea. Having bowel movements. Making good urine. Objective - Vital Signs/Intake and Output Vital Signs (last 24 hours): Temp Pulse Resp BP Pulse Ox 97.6 F 72 18 126/85 98 05/23/18 16:00 05/24/18 13:24 05/23/18 16:00 05/24/18 10:34 05/23/18 16:00 - Medications Medications: Current Medications Acetaminophen (Tylenol 325mg Tab) 650 mg PO Q6H PRN; Protocol PRN Reason: Pain, Mild (1-3) Last Admin: 05/23/18 18:34 Dose: 650 mg Famotidine (Pepcid) 20 mg PO HS STEVEN; Protocol Last Admin: 05/24/18 21:08 Dose: 20 mg Folic Acid (Folic Acid) 1 mg PO DAILY STEVEN; Protocol Last Admin: 05/24/18 09:53 Dose: 1 mg Furosemide (Lasix) 20 mg PO DAILY STEVEN Last Admin: 05/24/18 10:34 Dose: 20 mg Lactulose (Enulose) 20 gm PO DAILY STEVEN; Protocol Last Admin: 05/24/18 09:52 Dose: 20 gm Levalbuterol HCl (Xopenex) 0.63 mg IH [id number] PRN; Protocol PRN Reason: Shortness of Breath Levetiracetam (Keppra) 1,000 mg PO Q12 STEVEN; Protocol Last Admin: 05/24/18 21:08 Dose: 1,000 mg Multivitamins (Thera Tab) 1 tab PO 0800 STEVEN; Protocol Last Admin: 05/25/18 08:30 Dose: 1 tab Potassium Phos/Sodium Phos (Neutra-Phos) 1 pkt PO TID STEVEN; Protocol Last Admin: 05/24/18 17:38 Dose: 1 pkt Propranolol HCl (Inderal) 10 mg PO TID STEVEN; Protocol Last Admin: 05/24/18 17:38 Dose: 10 mg Simethicone (Mylicon Chew Tab) 80 mg PO PCHS PRN; Protocol PRN Reason: GI distress Spironolactone (Aldactone) 50 mg PO DAILY [facility]; Protocol Last Admin: 05/24/18 09:52 Dose: 50 mg Sucralfate (Carafate Oral Susp) 1 gm PO 0600,1600 [facility]; Protocol Last Admin: 05/25/18 05:29 Dose: 1 gm Tramadol HCl (Ultram) 50 mg PO TID PRN; Protocol PRN Reason: Pain, moderate (4-7) Last Admin: 05/24/18 17:43 Dose: 50 mg - Labs Labs: 05/25/18 06:15 05/25/18 06:15 - Additional Findings Additional findings: Head Exam: absent: ATRAUMATIC, NORMAL INSPECTION Additional comments: + scalp hematoma left frontal area - Eye Exam Eye Exam: EOMI, Normal appearance, PERRL. absent: Scleral icterus - ENT Exam ENT Exam: Mucous Membranes Moist - Neck Exam Neck exam: Positive for: Normal Inspection. Negative for: Tenderness - Respiratory Exam Respiratory Exam: Clear to Auscultation Bilateral. absent: Rales, Rhonchi, Wheezes - Cardiovascular Exam Cardiovascular Exam: Tachycardia, REGULAR RHYTHM, +S1, +S2, Systolic Murmur. absent: JVD - GI/Abdominal Exam GI & Abdominal Exam: Normal Bowel Sounds. absent: Distended, Firm, Guarding, Rebound, Tenderness - Extremities Exam Extremities exam: Positive for: normal capillary refill, normal inspection. 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 GI has been consulted for cirrhosis and elevated INR: Cirrhosis Ascites -Meld score 18 -hep panel 03/2018 negative and hiv 03/2018 negative -thrombocytopenia likely 2/2 cirrhosis - heme/onc transfused 2 bags platelets and 1 bag FFP * Anti-platelet antibodies, BECKY negative were both negative on previous admission -CT abd/pelvis w/ iv contrast from 03/2018: * Cirrhosis with moderate ascites and splenomegaly -continue lactulose 20mg po daily. Goal of 2 soft BMs daily. Titrate as needed. -lasix 20mg po qd initially discontinued (Patient had fall on admission, and concern lasix may have contributed) however lasix now resumed by primary -continue spironolactone 50mg po qd to treat ascites -start carafate 1g po bid to treat gerd -pepcid currently being held for thrombocytopenia -AFP marker normal -ammonia level normal -Portal vein duplex ultrasound 05/19 showed patent portal vein; liver parechyma consistent with cirrhosis, small ascites in upper abdomen Esophageal Varices -status post bands 2014 Colonic AVMs -colonoscopy 06/2015: single non-bleeding colonic angiodysplastic lesion in cecum, one 7mm polyp sigmoid colon, diverticulosis in sigmoid colon, internal hemorrhoids Previous GI procedures: -EGD 06/2015: large esophageal varices (banded), salmon-colored mucose suspicious for martinez's esophagus -colonoscopy 06/2015: single non-bleeding colonic angiodysplastic lesion in cecum, one 7mm polyp sigmoid colon, diverticulosis in sigmoid colon, internal hemorrhoids <Saulo,Kovil V - Last Filed: 05/25/18 23:51> Objective - Vital Signs/Intake and Output Vital Signs (last 24 hours): Temp Pulse Resp BP Pulse Ox 98.2 F 69 18 110/63 94 L 05/25/18 16:00 05/25/18 17:13 05/25/18 16:00 05/25/18 17:13 05/25/18 16:00 - Medications Medications: Current Medications Acetaminophen (Tylenol 325mg Tab) 650 mg PO Q6H PRN; Protocol PRN Reason: Pain, Mild (1-3) Last Admin: 05/23/18 18:34 Dose: 650 mg Famotidine (Pepcid) 20 mg PO HS [facility]; Protocol Last Admin: 05/25/18 21:38 Dose: 20 mg Folic Acid (Folic Acid) 1 mg PO DAILY [facility]; Protocol Last Admin: 05/25/18 10:11 Dose: 1 mg Furosemide (Lasix) 20 mg PO DAILY [facility] Last Admin: 05/25/18 10:10 Dose: 20 mg Lactulose (Enulose) 20 gm PO DAILY [facility]; Protocol Last Admin: 05/25/18 10:09 Dose: 20 gm Levalbuterol HCl (Xopenex) 0.63 mg IH [id number] PRN; Protocol PRN Reason: Shortness of Breath Levetiracetam (Keppra) 1,000 mg PO Q12 [facility]; Protocol Last Admin: 05/25/18 21:38 Dose: 1,000 mg Multivitamins (Thera Tab) 1 tab PO 0800 [facility]; Protocol Last Admin: 05/25/18 08:30 Dose: 1 tab Potassium Phos/Sodium Phos (Neutra-Phos) 1 pkt PO TID [facility]; Protocol Last Admin: 05/25/18 17:13 Dose: 1 pkt Propranolol HCl (Inderal) 10 mg PO TID [facility]; Protocol Last Admin: 05/25/18 17:13 Dose: 10 mg Simethicone (Mylicon Chew Tab) 80 mg PO PCHS PRN; Protocol PRN Reason: GI distress Spironolactone (Aldactone) 50 mg PO DAILY [facility]; Protocol Last Admin: 05/25/18 10:10 Dose: 50 mg Sucralfate (Carafate Oral Susp) 1 gm PO 0600,1600 [facility]; Protocol Last Admin: 05/25/18 17:00 Dose: 1 gm Tramadol HCl (Ultram) 50 mg PO TID PRN; Protocol PRN Reason: Pain, moderate (4-7) Last Admin: 05/25/18 20:10 Dose: 50 mg - Labs Labs: 05/25/18 06:15 05/25/18 06:15 Attending/Attestation - Attestation I have personally seen and examined this patient.: Yes I have fully participated in the care of the patient.: Yes I have reviewed all pertinent clinical information, including history, physical exam and plan: Yes
[2018-05-25] MEDS: Potassium & Sodium Phosphate PO SCH ×3 (10:10→17:13)
[2018-05-26] MEDS: Sucralfate 1 gm/10 ml Oral Susp UD PO SCH ×2 (05:48→17:24)
[2018-05-26 07:02] LABS: BASO # 0.04 K/mm3 (0.0-2.0); BASO % 0.8 % (0.0-3.0); EOS # 0.2 (0.0-0.7); EOS % 4.1 % (1.5-5.0); GRAN # 2.59 (1.4-6.5); GRAN % 52.9 % (50.0-68.0); HEMOGLOBIN 9.2 g/dL (12.0-16.0); LYMPH # 1.3 (1.2-3.4); LYMPH % 26.9 % (22.0-35.0); MEAN CELL VOLUME 96.8 fl (80.0-105.0); MEAN CORPUSCULAR HEMOGLOBIN 32.3 pg (25.0-35.0); MEAN CORPUSCULAR HGB CONC 33.3 g/dl (31.0-37.0); MEAN PLATELET VOLUME 9.5 fl (7.0-11.0); MONO # 0.8 (0.1-0.6); MONO % 15.3 % (1.0-6.0); RBC 2.85 10^6/uL (3.5-6.1); WHITE BLOOD COUNT 4.9 10^3/uL (4.5-11.0)
[2018-05-26] MEDS: Multivitamin Therapeutic Tab PO SCH (07:54)
[2018-05-26] MEDS: Potassium & Sodium Phosphate PO SCH ×3 (10:11→17:25)
--- NOTE | 2018-05-26 10:53 | CP.PCM.PN ---
<Ta Chicas - Last Filed: 05/26/18 10:50> Subjective - Date & Time of Evaluation Date of Evaluation: 05/26/18 Time of Evaluation: 10:50 - Subjective Subjective: PGY-2 GI progress note for Dr Vernon. No acute events noted overnight. Patient seen in TCU. Patient appeared comfortable in bed. Denied any abdominal discomfort or pain to me. Denied melena or BRBPR. Stated occasional nausea. Having 2-3 bowel movements per day. Making good urine. Objective - Vital Signs/Intake and Output Vital Signs (last 24 hours): Temp Pulse Resp BP Pulse Ox 97 F L 70 16 99/59 L 93 L 05/26/18 10:00 05/26/18 10:00 05/26/18 10:00 05/26/18 10:12 05/26/18 10:00 - Medications Medications: Current Medications Acetaminophen (Tylenol 325mg Tab) 650 mg PO Q6H PRN; Protocol PRN Reason: Pain, Mild (1-3) Last Admin: 05/23/18 18:34 Dose: 650 mg Famotidine (Pepcid) 20 mg PO HS STEVEN; Protocol Last Admin: 05/25/18 21:38 Dose: 20 mg Folic Acid (Folic Acid) 1 mg PO DAILY STEVEN; Protocol Last Admin: 05/26/18 10:08 Dose: 1 mg Furosemide (Lasix) 20 mg PO DAILY STEVEN Last Admin: 05/26/18 10:12 Dose: 20 mg Lactulose (Enulose) 20 gm PO DAILY STEVEN; Protocol Last Admin: 05/26/18 10:07 Dose: 20 gm Levalbuterol HCl (Xopenex) 0.63 mg IH [id number] PRN; Protocol PRN Reason: Shortness of Breath Levetiracetam (Keppra) 1,000 mg PO Q12 STEVEN; Protocol Last Admin: 05/26/18 10:10 Dose: 1,000 mg Multivitamins (Thera Tab) 1 tab PO 0800 STEVEN; Protocol Last Admin: 05/26/18 07:54 Dose: 1 tab Potassium Phos/Sodium Phos (Neutra-Phos) 1 pkt PO TID STEVEN; Protocol Last Admin: 05/26/18 10:11 Dose: 1 pkt Propranolol HCl (Inderal) 10 mg PO TID STEVEN; Protocol Last Admin: 05/26/18 10:08 Dose: Not Given Simethicone (Mylicon Chew Tab) 80 mg PO PCHS PRN; Protocol PRN Reason: GI distress Spironolactone (Aldactone) 50 mg PO DAILY [facility]; Protocol Last Admin: 05/25/18 10:10 Dose: 50 mg Sucralfate (Carafate Oral Susp) 1 gm PO 0600,1600 [facility]; Protocol Last Admin: 05/26/18 05:48 Dose: 1 gm Tramadol HCl (Ultram) 50 mg PO TID PRN; Protocol PRN Reason: Pain, moderate (4-7) Last Admin: 05/26/18 04:13 Dose: 50 mg - Labs Labs: 05/26/18 06:00 05/25/18 06:15 - Additional Findings Additional findings: Head Exam: absent: ATRAUMATIC, NORMAL INSPECTION Additional comments: + scalp hematoma left frontal area - Eye Exam Eye Exam: EOMI, Normal appearance, PERRL. absent: Scleral icterus - ENT Exam ENT Exam: Mucous Membranes Moist - Neck Exam Neck exam: Positive for: Normal Inspection. Negative for: Tenderness - Respiratory Exam Respiratory Exam: Clear to Auscultation Bilateral. absent: Rales, Rhonchi, Wheezes - Cardiovascular Exam Cardiovascular Exam: Tachycardia, REGULAR RHYTHM, +S1, +S2, Systolic Murmur. absent: JVD - GI/Abdominal Exam GI & Abdominal Exam: Normal Bowel Sounds. absent: Distended, Firm, Guarding, Rebound, Tenderness - Extremities Exam Extremities exam: Positive for: normal capillary refill, normal inspection. 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 GI has been consulted for cirrhosis and elevated INR: EtOH Cirrhosis Ascites -Meld score 18 -hep panel 03/2018 negative and hiv 03/2018 negative -thrombocytopenia likely 2/2 cirrhosis - heme/onc transfused 2 bags platelets and 1 bag FFP * Anti-platelet antibodies, BECKY negative were both negative on previous admission -CT abd/pelvis w/ iv contrast from 03/2018: * Cirrhosis with moderate ascites and splenomegaly -discontinue lactulose as can predispose to syncope from low volume - start on rifaxamin 500mg po bid -lasix 20mg po qd initially discontinued (Patient had fall on admission, and concern lasix may have contributed) however lasix now resumed by primary -continue spironolactone 50mg po qd to treat ascites -start carafate 1g po bid to treat gerd -pepcid currently being held for thrombocytopenia -AFP marker normal -ammonia level normal -Portal vein duplex ultrasound 05/19 showed patent portal vein; liver parechyma consistent with cirrhosis, small ascites in upper abdomen Esophageal Varices -status post bands 2015 Colonic AVMs -colonoscopy 06/2015: single non-bleeding colonic angiodysplastic lesion in cecum, one 7mm polyp sigmoid colon, diverticulosis in sigmoid colon, internal hemorrhoids Previous GI procedures: -EGD 06/2015: large esophageal varices (banded), salmon-colored mucose suspicious for martinez's esophagus -colonoscopy 06/2015: single non-bleeding colonic angiodysplastic lesion in cecum, one 7mm polyp sigmoid colon, diverticulosis in sigmoid colon, internal hemorrhoids Seen and discussed with Dr Vernon <Jean-Claude Vernon V - Last Filed: 05/26/18 19:12> Objective - Vital Signs/Intake and Output Vital Signs (last 24 hours): Temp Pulse Resp BP Pulse Ox 97.6 F 58 L 18 97/56 L 98 05/26/18 16:00 05/26/18 17:24 05/26/18 16:00 05/26/18 17:24 05/26/18 16:00 - Medications Medications: Current Medications Acetaminophen (Tylenol 325mg Tab) 650 mg PO Q6H PRN; Protocol PRN Reason: Pain, Mild (1-3) Last Admin: 05/23/18 18:34 Dose: 650 mg Famotidine (Pepcid) 20 mg PO HS STEVEN; Protocol Last Admin: 05/25/18 21:38 Dose: 20 mg Folic Acid (Folic Acid) 1 mg PO DAILY STEVEN; Protocol Last Admin: 05/26/18 10:08 Dose: 1 mg Furosemide (Lasix) 20 mg PO DAILY [facility] Last Admin: 05/26/18 10:12 Dose: 20 mg Levalbuterol HCl (Xopenex) 0.63 mg IH [id number] PRN; Protocol PRN Reason: Shortness of Breath Levetiracetam (Keppra) 1,000 mg PO Q12 STEVEN; Protocol Last Admin: 05/26/18 10:10 Dose: 1,000 mg Multivitamins (Thera Tab) 1 tab PO 0800 STEVEN; Protocol Last Admin: 05/26/18 07:54 Dose: 1 tab Potassium Phos/Sodium Phos (Neutra-Phos) 1 pkt PO TID STEVEN; Protocol Last Admin: 05/26/18 17:25 Dose: 1 pkt Propranolol HCl (Inderal) 10 mg PO TID STEVEN; Protocol Last Admin: 05/26/18 17:24 Dose: Not Given Rifaximin (Xifaxan) 550 mg PO BID STEVEN; Protocol Last Admin: 05/26/18 17:25 Dose: 550 mg Simethicone (Mylicon Chew Tab) 80 mg PO PCHS PRN; Protocol PRN Reason: GI distress Spironolactone (Aldactone) 50 mg PO DAILY STEVEN; Protocol Last Admin: 05/26/18 12:11 Dose: Not Given Sucralfate (Carafate Oral Susp) 1 gm PO 0600,1600 [facility]; Protocol Last Admin: 05/26/18 17:24 Dose: 1 gm Tramadol HCl (Ultram) 50 mg PO TID PRN; Protocol PRN Reason: Pain, moderate (4-7) Last Admin: 05/26/18 04:13 Dose: 50 mg - Labs Labs: 05/26/18 06:00 05/25/18 06:15 Attending/Attestation - Attestation I have personally seen and examined this patient.: Yes I have fully participated in the care of the patient.: Yes I have reviewed all pertinent clinical information, including history, physical exam and plan: Yes Notes (Text): This is an addendum to GI followup report dictated by the Hyperbaric Welder Diver. The patient was seen and evaluated earlier. Medical records, lab studies, imagings were reviewed. Last 24 hours events reviewed. Agreed with the above treatment plan as outlined in Hyperbaric Welder Diver 's notes with the addition of the following Patient complains of loose bowl movements Patient is on lactulose Patient is on ascitis and lasix 20mg and aldactone 50 mg daily Followup electrolytes Will DC lactulose Start Xifaxan 550mg twice daily 05/26/18 19:10
[2018-05-26 16:37] VITALS: RESP 18; TEMP 97.6; O2SAT 98
[2018-05-27] MEDS: Sucralfate 1 gm/10 ml Oral Susp UD PO SCH (05:47)
--- NOTE | 2018-05-27 06:17 | CON ---
DATE: 05/26/2018 LOCATION: The patient is in [facility] [id number], bed 1. REASON FOR CONSULTATION: We are following the patient for borderline sequestration thrombocytopenia due to underlying cirrhosis of the liver. The patient was admitted to the hospital with an acute GI bleed after a fall at home. This bleed was in addition to the old bleed that she had in the occipital lobe and for this patient required several units of platelets. Bleeding has stabilized. The patient was having issues with orthostasis and things are gradually improving and she has been transferred to the [facility] for deconditioning. SUBJECTIVE: The patient has no acute events overnight. The patient appeared to be comfortable, denied any abdominal pain. Denied any history of melena, bright red blood per rectum, occasional nausea, and no other significant complaints such as fever, night sweats, or any signs and symptoms of orthostasis. OBJECTIVE: VITAL SIGNS: Stable. T-max is 98.4, pulse is 70, respirations 16, blood pressure is 99/59, pulse ox is 93%. HEENT: Head is normocephalic and atraumatic. Previously noted ecchymosis in the left frontal area appear to be receding slowly. Conjunctivae pale. Sclerae anicteric. Pupils are equally reactive to light and accommodation. Examination of oropharynx, there are no oropharyngeal lesions. NECK: Supple. There is no adenopathy. No jugular venous distention noted. LUNGS: Clear to percussion and auscultation. HEART: Reveals S1 and S2 to be normal. No gallop or murmurs heard. ABDOMEN: Soft and nontender. No rebound, rigidity, or guarding is noted. Bowel sounds are present. EXTREMITIES: There is no cyanosis, clubbing, or edema. No calf tenderness is noted. NEUROLOGIC: Higher functions are normal. No focal deficits are noted. SKIN: Turgor is normal. No skin lesions are noted except for the prior hematoma. MEDICATIONS: Reviewed. She is on Tylenol, famotidine, folic acid, furosemide, lactulose, levalbuterol and Xopenex inhalations, Keppra 1000 mg every 12 hours, multivitamins, potassium/sodium phosphate, Neutra-Phos one packet t.i.d., Inderal 10 mg t.i.d., Mylicon 80 mg at bedtime, she is on spironolactone 50 mg daily, sucralfate 1 g p.o. a.c. and at bedtime, and tramadol p.r.n. LABORATORY DATA: Reviewed. The patient's blood count to be stable at this point. White count is 4.9, hemoglobin 9.2, hematocrit 27.6, and platelet count is 65,000. Sodium is 137, K is 4.5, chloride 108, CO2 is 25, BUN is 9, and creatinine is 0.7. ASSESSMENT, NOTES, AND PLAN: The patient has ethanol cirrhosis with QUEVEDO score of 18 with sequestration thrombocytopenia. Patient has had 2 units of platelets and 1 unit of fresh frozen plasma. Antiplatelet antibodies have been negative on prior exam. CAT scan of the abdomen and pelvis shows moderate ascites and splenomegaly. The patient has been on appropriate treatment for cirrhosis under the supervision of the Gastroenterology group. Patient had a AFP and ammonia levels done, which are normal and portal vein duplex ultrasound showed patent portal vein and liver parenchyma consistent with cirrhosis. RECOMMENDATIONS: We will continue to monitor the patient and I made recommendations that the patient could be maintained on the medications such as Promacta to keep the count above 50 and to prevent any future problems while the patient is in outpatient setting. Promacta will have to be ordered through the insurance company and that may take a few weeks. I have discussed these findings in detail with Dr. Abilio Bass as well. We will continue to monitor the labs and make appropriate recommendations. Bijal Medellin MD
[2018-05-27 06:58] LABS: BASO # 0.04 K/mm3 (0.0-2.0); EOS # 0.1 (0.0-0.7); EOS % 3.3 % (1.5-5.0); GRAN # 2.17 (1.4-6.5); GRAN % 54.3 % (50.0-68.0); HEMOGLOBIN 9.1 g/dL (12.0-16.0); LYMPH # 1.1 (1.2-3.4); LYMPH % 27.1 % (22.0-35.0); MEAN CELL VOLUME 96.8 fl (80.0-105.0); MEAN CORPUSCULAR HGB CONC 33.1 g/dl (31.0-37.0); MEAN PLATELET VOLUME 9.3 fl (7.0-11.0); MONO # 0.6 (0.1-0.6); MONO % 14.3 % (1.0-6.0); RBC 2.84 10^6/uL (3.5-6.1); RED CELL DISTRIBUTION WIDTH 18.2 % (11.5-14.5)
[2018-05-27] MEDS: Multivitamin Therapeutic Tab PO SCH (08:02)
[2018-05-27 08:34] LABS: ALB/GLOB RATIO 0.7 (1.1-1.8); ALBUMIN 2.7 g/dL (3.0-4.8); ALT/SGPT 51 U/L (7-56); AST/SGOT 56 U/L (14-36); BLOOD UREA NITROGEN 9 mg/dL (7-21); CALCIUM 8.7 mg/dL (8.4-10.5); GFR NON-AFRICAN AMERICAN > 60
--- NOTE | 2018-05-27 09:31 | CP.PCM.PN ---
<Ta Chicas - Last Filed: 05/27/18 09:29> Subjective - Date & Time of Evaluation Date of Evaluation: 05/27/18 Time of Evaluation: 09:29 - Subjective Subjective: PGY-2 GI progress note for Dr Vernon. No acute events noted overnight. Patient seen in TCU. Patient appeared comfortable in bed. Denied any abdominal discomfort or pain to me. Denied melena or BRBPR. Stated occasional nausea. Having 2-3 bowel movements per day - stated appeared normal/soft. Making good urine. Objective - Vital Signs/Intake and Output Vital Signs (last 24 hours): Temp Pulse Resp BP Pulse Ox 97.6 F 58 L 18 97/56 L 98 05/26/18 16:00 05/26/18 17:24 05/26/18 16:00 05/26/18 17:24 05/26/18 16:00 - Medications Medications: Current Medications Acetaminophen (Tylenol 325mg Tab) 650 mg PO Q6H PRN; Protocol PRN Reason: Pain, Mild (1-3) Last Admin: 05/23/18 18:34 Dose: 650 mg Famotidine (Pepcid) 20 mg PO HS STEVEN; Protocol Last Admin: 05/26/18 21:21 Dose: 20 mg Folic Acid (Folic Acid) 1 mg PO DAILY STEVEN; Protocol Last Admin: 05/26/18 10:08 Dose: 1 mg Furosemide (Lasix) 20 mg PO DAILY STEVEN Last Admin: 05/26/18 10:12 Dose: 20 mg Levalbuterol HCl (Xopenex) 0.63 mg IH [id number] PRN; Protocol PRN Reason: Shortness of Breath Levetiracetam (Keppra) 1,000 mg PO Q12 STEVEN; Protocol Last Admin: 05/26/18 21:21 Dose: 1,000 mg Multivitamins (Thera Tab) 1 tab PO 0800 STEVEN; Protocol Last Admin: 05/27/18 08:02 Dose: 1 tab Potassium Phos/Sodium Phos (Neutra-Phos) 1 pkt PO TID STEVEN; Protocol Last Admin: 05/26/18 17:25 Dose: 1 pkt Propranolol HCl (Inderal) 10 mg PO TID STEVEN; Protocol Last Admin: 05/26/18 17:24 Dose: Not Given Rifaximin (Xifaxan) 550 mg PO BID [facility]; Protocol Last Admin: 05/26/18 17:25 Dose: 550 mg Simethicone (Mylicon Chew Tab) 80 mg PO PCHS PRN; Protocol PRN Reason: GI distress Spironolactone (Aldactone) 50 mg PO DAILY [facility]; Protocol Last Admin: 05/26/18 12:11 Dose: Not Given Sucralfate (Carafate Oral Susp) 1 gm PO 0600,1600 [facility]; Protocol Last Admin: 05/27/18 05:47 Dose: 1 gm Tramadol HCl (Ultram) 50 mg PO TID PRN; Protocol PRN Reason: Pain, moderate (4-7) Last Admin: 05/26/18 23:22 Dose: 50 mg - Labs Labs: 05/27/18 05:20 05/27/18 06:00 - Additional Findings Additional findings: Head Exam: absent: ATRAUMATIC, NORMAL INSPECTION Additional comments: + scalp hematoma left frontal area - Eye Exam Eye Exam: EOMI, Normal appearance, PERRL. absent: Scleral icterus - ENT Exam ENT Exam: Mucous Membranes Moist - Neck Exam Neck exam: Positive for: Normal Inspection. Negative for: Tenderness - Respiratory Exam Respiratory Exam: Clear to Auscultation Bilateral. absent: Rales, Rhonchi, Wheezes - Cardiovascular Exam Cardiovascular Exam: Tachycardia, REGULAR RHYTHM, +S1, +S2, Systolic Murmur. ab sent: JVD - GI/Abdominal Exam GI & Abdominal Exam: Normal Bowel Sounds. absent: Distended, Firm, Guarding, Rebound, Tenderness - Extremities Exam Extremities exam: Positive for: normal capillary refill, normal inspection. 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 GI has been consulted for cirrhosis and elevated INR: EtOH Cirrhosis Ascites -Meld score 17 -hep panel 03/2018 negative and hiv 03/2018 negative -thrombocytopenia likely 2/2 cirrhosis - heme/onc transfused 2 bags platelets and 1 bag FFP * Anti-platelet antibodies, BECKY negative were both negative on previous admission -CT abd/pelvis w/ iv contrast from 03/2018: * Cirrhosis with moderate ascites and splenomegaly -discontinue lactulose as can predispose to syncope from low volume - start on rifaxamin 500mg po bid -lasix 20mg po qd initially discontinued (Patient had fall on admission, and concern lasix may have contributed) however lasix now resumed by primary -continue spironolactone 50mg po qd to treat ascites -start carafate 1g po bid to treat gerd -pepcid currently being held for thrombocytopenia -AFP marker normal -ammonia level normal -Portal vein duplex ultrasound 05/19 showed patent portal vein; liver parechyma consistent with cirrhosis, small ascites in upper abdomen Esophageal Varices -status post bands 2014 Colonic AVMs -colonoscopy 06/2015: single non-bleeding colonic angiodysplastic lesion in cecum, one 7mm polyp sigmoid colon, diverticulosis in sigmoid colon, internal hemorrhoids Previous GI procedures: -EGD 06/2015: large esophageal varices (banded), salmon-colored mucose suspicious for martinez's esophagus -colonoscopy 06/2015: single non-bleeding colonic angiodysplastic lesion in cecum, one 7mm polyp sigmoid colon, diverticulosis in sigmoid colon, internal hemorrhoids Seen and discussed with Dr Vernon <Jean-Claude Vernon V - Last Filed: 05/29/18 00:14> Objective - Vital Signs/Intake and Output Vital Signs (last 24 hours): Temp Pulse Resp BP Pulse Ox 97.6 F 68 18 83/49 L 98 05/26/18 16:00 05/27/18 10:20 05/26/18 16:00 05/27/18 10:21 05/26/18 16:00 - Labs Labs: 05/27/18 05:20 05/27/18 06:00 Attending/Attestation - Attestation I have personally seen and examined this patient.: Yes I have fully participated in the care of the patient.: Yes I have reviewed all pertinent clinical information, including history, physical exam and plan: Yes Notes (Text): This is adelayed addendum to GI followup report dictated by the Import Customer Service Manager. The patient was seen and evaluated earlier. Medical records, lab studies, imagings were reviewed. Last 24 hours events reviewed. Agreed with the above treatment plan as outlined in Import Customer Service Manager 's notes with the addition of the following 05/29/18 00:14
[2018-05-27] MEDS: Potassium & Sodium Phosphate PO SCH (10:21)
[2018-05-27 10:30] VITALS: BP 83/49; PULSE 68
== END 2018-05-27 14:08 | disposition home or self-care (01) | DRG 82 ==
LOC: TRCU 15:18
PROVIDERS: ADMIT Internal Medicine; ATTEND Internal Medicine
PROC: F07Z9FZ Gait Training/Functional Ambulation Treatment using Assistive, Adaptive, Supportive or Protective Equipment (ICD-10-PCS; principal; 2018-05-23)
PROC: F07M6ZZ Therapeutic Exercise Treatment of Musculoskeletal System - Whole Body (ICD-10-PCS; 2018-05-23)
PROC: F08Z2ZZ Grooming/Personal Hygiene Treatment (ICD-10-PCS; 2018-05-24)
PROC: F08Z0ZZ Bathing/Showering Techniques Treatment (ICD-10-PCS; 2018-05-24)
DX: S06.369A Traumatic hemorrhage of cerebrum, unspecified, with loss of consciousness of unspecified duration, initial encounter (principal); G93.6 Cerebral edema; I85.00 Esophageal varices without bleeding; K92.2 Gastrointestinal hemorrhage, unspecified; D69.6 Thrombocytopenia, unspecified; E87.70 Fluid overload, unspecified; F10.10 Alcohol abuse, uncomplicated; F17.210 Nicotine dependence, cigarettes, uncomplicated; G47.30 Sleep apnea, unspecified; K21.9 Gastro-esophageal reflux disease without esophagitis; K55.20 Angiodysplasia of colon without hemorrhage; K57.30 Diverticulosis of large intestine without perforation or abscess without bleeding; K70.31 Alcoholic cirrhosis of liver with ascites; M81.0 Age-related osteoporosis without current pathological fracture; W19.XXXA Unspecified fall, initial encounter; Y92.009 Unspecified place in unspecified non-institutional (private) residence as the place of occurrence of the external cause; Z87.11 Personal history of peptic ulcer disease; Z87.19 Personal history of other diseases of the digestive system; Z96.641 Presence of right artificial hip joint; Z88.0 Allergy status to penicillin; M48.02 Spinal stenosis, cervical region; D64.9 Anemia, unspecified; M19.90 Unspecified osteoarthritis, unspecified site; R56.9 Unspecified convulsions; G93.89 Other specified disorders of brain

== ENCOUNTER 2018-07-28 15:04 | Inpatient (IN) | payer BC, MEDICARE ==
[2018-07-28 15:33] VITALS: BMI 20.9
--- NOTE | 2018-07-28 15:55 | ED PDOC ---
Arrival/HPI - General Chief Complaint: Dizziness/Lightheaded Time Seen by Provider: 07/28/18 15:05 Historian: Patient - Critical Care Critical Care Minutes: 30 minutes - History of Present Illness Narrative History of Present Illness (Text): 07/28/18 15:51 63 year old female whose past medical history includes alcohol cirrhosis, esophageal varices, spinal stenosis, arthritis, DJD, and CVA (03/22/19), presents to the emergency department complaining of dizziness and blood in urine earlier today. She describes her urine with a dark blood clot. She also reports associated tenderness to the right side of her abdomen.Patient denies fevers, chills, headache, chest pain, shortness of breath, dyspnea on exertion, cough, nausea, vomiting, diarrhea, back pain, neck pain, or any other complaint. PMD: Marc Time/Duration: 4-6 hours Symptom Onset: Sudden Symptom Course: Unchanged Activities at Onset: Light Context: Home Past Medical History - Provider Review Nursing Documentation Reviewed: Yes - Past History Past History: Non-Contributing - Infectious Disease Hx of Infectious Diseases: None - Tetanus Immunization Tetanus Immunization: Unknown - Past Medical History Past Medical History: No Previous - Cardiac Hx Cardiac Disorders: No - Pulmonary Hx Respiratory Disorders: Yes Hx Sleep Apnea: Yes - Neurological Hx Neurological Disorder: Yes HX Cerebrovascular Accident: Yes (03/2018 x2) Other/Comment: Spinal Stenosis , T7-8 Paracentral disc Protusion , C5-6 Disc Bulge , 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 - Integumentary Hx Dermatological Disorder: No - Musculoskeletal/Rheumatological Hx Arthritis: Yes - Gastrointestinal Hx Gastrointestinal Disorders: Yes - Genitourinary/Gynecological Hx Genitourinary Disorders: No - Psychiatric Hx Psychophysiologic Disorder: No Hx Substance Use: No - Surgical History Hx Musculoskeletal Surgery: Yes (right hip replacement) Hx Orthopedic Surgery: Yes (left knee surgery) - Anesthesia Hx Anesthesia: Yes Hx Anesthesia Reactions: No Hx Malignant Hyperthermia: No - Suicidal Assessment Feels Threatened In Home Enviroment: No Family/Social History - Physician Review Nursing Documentation Reviewed: Yes Family/Social History: No Known Family HX Smoking Status: Never Smoked Hx Alcohol Use: Yes (past) Amount per day: 10 Hx Substance Use: No Hx Substance Use Treatment: No Allergies/Home Meds Allergies/Adverse Reactions: Allergies Penicillins Allergy (Verified 07/28/18 15:26) RASH Home Medications: Home Meds Medication Instructions Recorded Confirmed Metoprolol Succinate [Toprol Xl] 25 mg PO DAILY 07/28/18 07/28/18 Omeprazole 20 mg PO DAILY 07/28/18 07/28/18 Tramadol HCl [Ultram] 50 mg PO DAILY 07/28/18 07/28/18 Review of Systems - Physician Review All systems were reviewed & negative as marked: Yes - Review of Systems Constitutional: absent: Fevers Respiratory: absent: Cough Cardiovascular: absent: Chest Pain Gastrointestinal: Abdominal Pain. absent: Nausea, Vomiting Genitourinary Female: Hematuria Musculoskeletal: absent: Back Pain, Neck Pain Neurological: absent: Headache, Dizziness Physical Exam Vital Signs Reviewed: Yes Vital Signs Temp Pulse Resp BP Pulse Ox 07/28/18 15:27 98.9 F 90 18 92/56 L 98 Temperature: Afebrile Blood Pressure: Hypotensive Pulse: Regular Respiratory Rate: Normal Appearance: Positive for: Well-Appearing, Non-Toxic, Comfortable Pain Distress: None Mental Status: Positive for: Alert and Oriented X 3 - Systems Exam Head: Present: Atraumatic, Normocephalic Pupils: Present: PERRL Extroacular Muscles: Present: EOMI Conjunctiva: Present: Normal Mouth: Present: Moist Mucous Membranes. No: Normal Teeth (poor dentition) Neck: Present: Normal Range of Motion Respiratory/Chest: Present: Clear to Auscultation, Good Air Exchange. No: Respiratory Distress, Accessory Muscle Use Cardiovascular: Present: Regular Rate and Rhythm, Normal S1, S2. No: Murmurs Abdomen: Present: Tenderness (slight tenderness to the right lower quadrant). No: Distention, Peritoneal Signs Rectal: Present: Occult Blood (heme occult positive w/ dilip blood on finger ), Hemorrhoids (external nonthrombosed hemmrhoids, internal hemprrhoids palpated, ). No: Rectal Tenderness (no pain w/ insertion of finger) Back: Present: Normal Inspection Upper Extremity: Present: Normal Inspection. No: Cyanosis, Edema Lower Extremity: Present: Normal Inspection. No: Edema Neurological: Present: GCS=15, CN II-XII Intact, Speech Normal Skin: Present: Warm, Dry, Normal Color. No: Rashes Psychiatric: Present: Alert, Oriented x 3, Normal Insight, Normal Concentration Medical Decision Making ED Course and Treatment: 07/28/18 15:58 Impression: 63 year old female who presents to the emergency department complaining of diz ziness and blood in urine. Differential Diagnosis included but are not limited to: GI bleed external hemorrhoids Plan: -- Head CT w/o contrast -- Labs -- Chest X-ray -- Urinalysis --GI consult --pRBCs -- Reassess and disposition Prior Visits: Notes and results from previous visits were reviewed. Progress Notes: 07/28/18 16:55 Labs reviewed with Hgb noted to be 8.5. Call placed to ICU. Blood consent obtained. Case discussed with Dr. Tran who accepts patient and requests Dr. Vernon for consult. - Lab Interpretations Lab Results: 07/28/18 16:00 07/28/18 16:00 Lab Results 07/28/18 16:00: Levetiracetam 59.2 07/28/18 16:00: Sodium 139, Potassium 4.3, Chloride 104, Carbon Dioxide 27, Anion Gap 12, BUN 18, Creatinine 0.8, Est GFR ( Amer) > 60, Est GFR (Non- Af Amer) > 60, Random Glucose 108, Calcium 9.2, Magnesium 1.7, Total Bilirubin 4.6 H, AST 68 H D, ALT 32, Alkaline Phosphatase 82, Troponin I 0.02 D, Total Protein 6.7, Albumin 2.9 L, Globulin 3.8, Albumin/Globulin Ratio 0.8 L 07/28/18 16:00: WBC 10.8 D, RBC 2.88 L, Hgb 8.5 L, Hct 25.9 L, MCV 89.9 D, MCH 29.5, MCHC 32.8, RDW 15.8 H, Plt Count 89 L, MPV 10.2, Gran % 79.3 H, Lymph % (Auto) 12.6 L, [place] % (Auto) 7.4 H, Eos % (Auto) 0.4 L, Baso % (Auto) 0.3, Gran # 8.59 H, Lymph # (Auto) 1.4, [place] # (Auto) 0.8 H, Eos # (Auto) 0.0, Baso # (Auto) 0.03 I have reviewed the lab results: Yes - RAD Interpretation Narrative RAD Interpretations (Text): 07/28/18 16:[address] w/o contrast reviewed, shows: IMPRESSION: no acute intracranial abnormality. 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 Radiology Orders: 07/28/18 15:36 HEAD W/O CONTRAST [CT] Stat 07/28/18 15:38 CHEST PORTABLE [RAD] Stat Java Security Engineer: Radiologist - EKG Interpretation EKG Interpretation (Text): 07/28/18 17:56 EKG done at 17:24 reviewed, shows: NSR at 95 bpm with prolonged QT interval, no ST elevations. Type: 12 lead EKG - Scribe Statement The provider has reviewed the documentation as recorded by the Luis Alberto Cordero Provider Scribe Attestation: All medical record entries made by the Scribe were at my direction and personally dictated by me. I have reviewed the chart and agree that the record accurately reflects my personal performance of the history, physical exam, medical decision making, and the department course for this patient. I have also personally directed, reviewed, and agree with the discharge instructions and disposition. Disposition/Present on Arrival - Present on Arrival Any Indicators Present on Arrival: No History of DVT/PE: No History of Uncontrolled Diabetes: No Urinary Catheter: No History of Decub. Ulcer: No History Surgical Site Infection Following: None - Disposition Have Diagnosis and Disposition been Completed?: Yes Diagnosis: Symptomatic anemia Disposition: HOSPITALIZED Disposition Time: 16:55 Patient Plan: Admission Patient Problems: Current Active Problems Problem Status Onset Symptomatic anemia Acute Condition: GUARDED
[2018-07-28 16:20] LABS: BASO # 0.03 K/mm3 (0.0-2.0); BASO % 0.3 % (0.0-3.0); EOS % 0.4 % (1.5-5.0); GRAN # 8.59 (1.4-6.5); GRAN % 79.3 % (50.0-68.0); HEMOGLOBIN 8.5 g/dL (12.0-16.0); LYMPH # 1.4 (1.2-3.4); LYMPH % 12.6 % (22.0-35.0); MEAN CELL VOLUME 89.9 fl (80.0-105.0); MEAN CORPUSCULAR HEMOGLOBIN 29.5 pg (25.0-35.0); MEAN CORPUSCULAR HGB CONC 32.8 g/dl (31.0-37.0); MEAN PLATELET VOLUME 10.2 fl (7.0-11.0); MONO # 0.8 (0.1-0.6); MONO % 7.4 % (1.0-6.0); RBC 2.88 10^6/uL (3.5-6.1); RED CELL DISTRIBUTION WIDTH 15.8 % (11.5-14.5); WHITE BLOOD COUNT 10.8 10^3/uL (4.5-11.0)
[2018-07-28 16:22] LABS: ALB/GLOB RATIO 0.8 (1.1-1.8); ALBUMIN 2.9 g/dL (3.0-4.8); ALT/SGPT 32 U/L (7-56); AST/SGOT 68 U/L (14-36); BLOOD UREA NITROGEN 18 mg/dL (7-21); CALCIUM 9.2 mg/dL (8.4-10.5); GFR NON-AFRICAN AMERICAN > 60
[2018-07-28 16:33] LABS: TROPONIN I 0.02 ng/mL
--- NOTE | 2018-07-28 16:49 | CT ---
Date of service: 07/28/2018 PROCEDURE: CT HEAD WITHOUT CONTRAST. HISTORY: Dizzy w/ h/o seizure COMPARISON: 05/14/2018. TECHNIQUE: Axial computed tomography images were obtained through the head/brain without intravenous contrast. Radiation dose: Total exam DLP = 899.98 mGy-cm. This CT exam was performed using one or more of the following dose reduction techniques: Automated exposure control, adjustment of the mA and/or kV according to patient size, and/or use of iterative reconstruction technique. FINDINGS: HEMORRHAGE: No intracranial hemorrhage. BRAIN: There is redemonstration of cystic encephalomalacia in the left posterior parietal and anterior occipital lobe. There is no mass, mass effect or abnormal extra-axial fluid collection. There is no territorial infarction. The midline sagittal structures are normal. VENTRICLES: There is mild age-related global parenchymal volume loss and proportionate enlargement of the ventricles and cortical sulci. CALVARIUM: There is no calvarial fracture or extracranial soft tissue swelling. PARANASAL SINUSES: There is mild polypoid mucosal thickening in the left maxillary sinus. The remaining included paranasal sinuses are clear. MASTOID AIR CELLS: Predominantly clear. OTHER FINDINGS: None. IMPRESSION: No acute intracranial abnormality. Cystic encephalomalacia in the left posterior parietal and anterior occipital lobe, a sequela of remote insult.
[2018-07-29] MEDS ORDERED: Sodium Chloride 0.9% 1,000 ML IV STA ×2 (05:27→11:16)
[2018-07-29 08:23] LABS: MEAN CELL VOLUME 89.5 fl (80.0-105.0); MEAN CORPUSCULAR HEMOGLOBIN 29.3 pg (25.0-35.0); MEAN CORPUSCULAR HGB CONC 32.7 g/dl (31.0-37.0); MEAN PLATELET VOLUME 9.5 fl (7.0-11.0); RBC 1.81 10^6/uL (3.5-6.1); RED CELL DISTRIBUTION WIDTH 16.1 % (11.5-14.5); WHITE BLOOD COUNT 8.7 10^3/uL (4.5-11.0)
[2018-07-29 08:27] LABS: HEMOGLOBIN 5.3 g/dL (12.0-16.0)
[2018-07-29 08:37] LABS: ALB/GLOB RATIO 0.7 (1.1-1.8); ALBUMIN 1.9 g/dL (3.0-4.8); ALT/SGPT 35 U/L (7-56); AST/SGOT 45 U/L (14-36); BLOOD UREA NITROGEN 27 mg/dL (7-21); CALCIUM 8.1 mg/dL (8.4-10.5); GFR NON-AFRICAN AMERICAN > 60
--- NOTE | 2018-07-29 09:14 | CP.PCM.CON ---
<Mehul Campbell - Last Filed: 07/29/18 14:57> History of Present Illness - History of Present Illness History of Present Illness: Mehul Campbell, PGY-1 Consult Note for ICU CC: Severe anemia HPI: Ms. Collado is a 63 year old female with PMHx of alcohol cirrhosis, esophageal varices, PUD, spinal stenosis, arthritis, DJD, CVA, seizure, osteoporosis who was admitted to [facility] for two episodes of rectal bleeding yesterday. Patient states that she noticed, on two separate episodes, a burgundy-colored blood clot mixed with stool. She reports feeling pressure on right side of her abdomen which then progressed to left sided abdominal pain worsened with movement. Patient admits to taking 2 Advils once a week with last taken last week. She denied any associated abdominal pain, nausea, vomiting, hematemesis, hemoptysis, fever, chills, focal weakness, visual changes, CP, SOB, slurred speech, diaphoresis, back pain, urinary/fecal incontinence. 12 point ROS reviewed with pertinent positives as above. PMHx: alcoholic cirrhosis, esophageal varices, PUD, spinal stenosis, arthritis, DJD, left posterior parieto-occipital CVA, osteoporosis PSHx: right hip replacement, banding of esophageal varicies in 2014 Meds: as per EMR Allergies: PCN - rash SocialHx: smokes half a pack per day, quit drinking a few months ago - heavy drinker prior to that, lives at home with , denies illicit drugs Review of Systems - Review of Systems Review of Systems: 12 point ROS completed and negative except as described in HPI. 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 - INTEGUMENTARY Hx Dermatological Problems: No - MUSCULOSKELETAL/RHEUMATOLOGICAL Hx Arthritis: Yes Hx Falls: No - GASTROINTESTINAL Hx Gastrointestinal Disorders: Yes - GENITOURINARY/GYNECOLOGICAL Hx Genitourinary Disorders: No - PSYCHIATRIC Hx Psychophysiologic Disorder: No Hx Substance Use: No - SURGICAL HISTORY Hx Musculoskeletal Surgery: Yes (right hip replacement) Hx Orthopedic Surgery: Yes (left knee surgery) - ANESTHESIA Hx Anesthesia: Yes Hx Anesthesia Reactions: No Hx Malignant Hyperthermia: No Meds Allergies/Adverse Reactions: Allergies Allergy/AdvReac Type Severity Reaction Status Date / Time Penicillins Allergy RASH Verified 07/28/18 15:26 - Medications Medications: Current Medications Acetaminophen (Tylenol 325mg Tab) 650 mg PO Q4H PRN PRN Reason: pain/headache Last Admin: 07/29/18 07:50 Dose: 650 mg Physical Exam - Additional Findings Additional findings: - Constitutional Appears: Well, No Acute Distress - Head Exam Head Exam: ATRAUMATIC, NORMAL INSPECTION, NORMOCEPHALIC - Eye Exam Eye Exam: PERRL. absent: Scleral icterus Pupil Exam: NORMAL ACCOMODATION Additional comments: conjunctival pallor - ENT Exam ENT Exam: Mucous Membranes Moist, Normal Exam - Neck Exam Neck exam: Positive for: Normal Inspection - Respiratory Exam Respiratory Exam: Clear to Auscultation Bilateral, NORMAL BREATHING PATTERN - Cardiovascular Exam Cardiovascular Exam: REGULAR RHYTHM, Systolic Murmur. absent: Gallop, Rubs - GI/Abdominal Exam GI & Abdominal Exam: Distended, Normal Bowel Sounds, Organomegaly, Soft. absent: Guarding, Tenderness - Extremities Exam Extremities exam: Positive for: normal capillary refill, normal inspection, peda l pulses present - Back Exam Back exam: NORMAL INSPECTION - Neurological Exam Neurological exam: Alert, Oriented x3 Additional comments: motor strength 5/5 on left side, motor strength 4/5 on right side, negative babinski - Psychiatric Exam Psychiatric exam: Normal Affect, Normal Mood - Skin Skin Exam: Dry, Intact, Pallor, Warm Results - Vital Signs Recent Vital Signs: Last Vital Signs Temp 98.7 F 07/29/18 08:56 Pulse 112 H 07/29/18 08:56 Resp 18 07/29/18 08:56 BP 77/46 L 07/29/18 08:56 Pulse Ox 93 L 07/29/18 08:56 - Labs Result Diagrams: 07/29/18 10:30 07/29/18 10:30 Labs: Laboratory Results - last 24 hr 07/28/18 07/28/18 07/29/18 16:00 16:00 08:00 WBC 10.8 D 8.7 RBC 2.88 L 1.81 L Hgb 8.5 L 5.3 L* D Hct 25.9 L 16.2 L* MCV 89.9 D 89.5 MCH 29.5 29.3 MCHC 32.8 32.7 RDW 15.8 H 16.1 H Plt Count 89 L 65 L MPV 10.2 9.5 Gran % 79.3 H Lymph % (Auto) 12.6 L Liberty % (Auto) 7.4 H Eos % (Auto) 0.4 L Baso % (Auto) 0.3 Gran # 8.59 H Lymph # (Auto) 1.4 [place] # (Auto) 0.8 H Eos # (Auto) 0.0 Baso # (Auto) 0.03 Sodium 139 Potassium 4.3 Chloride 104 Carbon Dioxide 27 Anion Gap 12 BUN 18 Creatinine 0.8 Est GFR ( Amer) > 60 Est GFR (Non-Af Amer) > 60 Random Glucose 108 Calcium 9.2 Magnesium 1.7 Total Bilirubin 4.6 H AST 68 H D ALT 32 Alkaline Phosphatase 82 Troponin I 0.02 D Total Protein 6.7 Albumin 2.9 L Globulin 3.8 Albumin/Globulin Ratio 0.8 L 07/29/18 08:00 WBC RBC Hgb Hct MCV MCH MCHC RDW Plt Count MPV Gran % Lymph % (Auto) [place] % (Auto) Eos % (Auto) Baso % (Auto) Gran # Lymph # (Auto) [place] # (Auto) Eos # (Auto) Baso # (Auto) Sodium 138 Potassium 4.2 Chloride 106 Carbon Dioxide 28 Anion Gap 8 L BUN 27 H Creatinine 0.8 Est GFR ( Amer) > 60 Est GFR (Non-Af Amer) > 60 Random Glucose 95 Calcium 8.1 L Magnesium Total Bilirubin 4.3 H AST 45 H D ALT 35 Alkaline Phosphatase 55 Troponin I Total Protein 4.6 L Albumin 1.9 L Globulin 2.7 Albumin/Globulin Ratio 0.7 L Assessment & Plan - Assessment and Plan (Free Text) Assessment: 63 year old female with PMHx of alcohol cirrhosis, esophageal varices, thrombocytopenia, spinal stenosis, arthritis, DJD, 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, seizure, peptic ulcer disease, osteoporosis presented with dizziness and blood in urine earlier today. She describes her urine with a dark blood clot. She also reports associated tenderness to the right side of her abdomen. Patient denies fevers, chills, headache, chest pain, shortness of breath, dyspnea on exertion, cough, nausea, vomiting, diarrhea, back pain, neck pain, or any other complaint. S/p 2 L NS. Plan t transfuse 2 units PRBC and 2 units FFP Neuro: - 07/28/[address] w/o contrast: no acute intracranial abnormality. 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 - Ke[place] 1000 BID - AAOx3, no FND, moving extremities past midline. - Monitor neuro status. - Reorient patient as necessary. Heme/Onc: Aplastic anemia - H/H unstable at5.3, 8.5 yesterday - RBC 1.78 Thrmbocytopenia - Manual PLT ct 90 - F/u INR s/p 2 units FFP and 1 cryoprecipitate - F/u CBC after 2 units PRBC - Continue monitoring H/H - Hem/Onc consulted - Dr. Medellin - recs appreciated. Add 1 unit of cryoprecipitate in advance of GI procedure Sustained hypotension - Central line placed - Hypotensive 75/46, tachy at 112 on presentation. After 2nd fluid bolus, 96/51. - Will begin Levophed at 3mcg/min Cardio: - EKG done on admission shows: NSR at 95 bpm with prolonged QT interval, no ST elevations. - Trop 0.02 - Maintain MAP>65. - Monitor for S/S, HD compromise. Pulm: - No signs of respiratory distress. CTA B/L, 93% on RA - Patient is satting well on room air. - Maintain O2 saturation>92%. - O2 NC PRN Vent: protective lung ventilation strategy, aspiration precautions - 07/28/18 CXR:vascular markings but no consolidations - Elevate bed to 30 degrees GI: Dr. Vernon consulted - recs appreciated - melenotic BM - Octreotide drip 50 mcg/hr Hx of EtOH Cirrhosis, Ascites, colonic AVMs, esophageal varices banded in 2015 - NPO - Protonix /Nephro: - BUN/Cr stable - F/U UA - Good urine output - Continue monitoring. Pseudohypocalcemia - Replete electrolytes as needed. - Maintaineuvolemia. Endocrinology: - Random glucose:108, 95 - Maintain euglycemia 140-180. ID: - Afebrile, no leukocytosis - Monitor for signs and symptoms of infection. DVT prophylaxis:SCDS, holding pharm prophylaxis in light of melena GI prophylaxis:Protonix 40 IVP BID Patient seen, case reviewed and plan approved by Dr. Anu Byers. Mehul Campbell, PGY-1 <Samantha Byers - Last Filed: 07/29/18 18:06> Meds - Medications Medications: Current Medications Octreotide Acetate 1,250 mcg/ (Sodium Chloride) 252.5 mls @ 10.1 mls/hr IV .Q24H STEVEN; Protocol Last Admin: 07/29/18 12:45 Dose: 50 mcg/hr, 10.1 mls/hr NOREPINEPHRINE BIT/0.9 % NACL (Levophed 4 Mg/ 250 Ml Ns Premixed) 4 mg in 250 mls @ 11.25 mls/hr IV .[id number] PRN; Protocol PRN Reason: TITRATE PER MD ORDER Last Admin: 07/29/18 15:52 Dose: 3 mcg/min, 11.25 mls/hr Levetiracetam (Keppra) 1,000 mg PO Q12 STEVEN Last Admin: 07/29/18 15:51 Dose: Not Given Metoprolol Succinate (Toprol Xl) 25 mg PO DAILY STEVEN Last Admin: 07/29/18 12:41 Dose: Not Given Pantoprazole Sodium (Protonix Inj) 40 mg IVP Q12 STEVEN Results - Vital Signs Recent Vital Signs: Last Vital Signs Temp 98.7 F 07/29/18 08:56 Pulse 95 H 07/29/18 13:10 Resp 17 07/29/18 13:10 BP 76/34 L 07/29/18 13:00 Pulse Ox 98 07/29/18 13:10 - Labs Result Diagrams: 07/29/18 17:00 07/29/18 10:30 Labs: Laboratory Results - last 24 hr 07/29/18 07/29/18 07/29/18 08:00 08:00 10:30 WBC 8.7 10.7 D RBC 1.81 L 1.78 L Hgb 5.3 L* D 5.3 L* Hct 16.2 L* 16.2 L* MCV 89.5 91.0 MCH 29.3 29.8 MCHC 32.7 32.7 RDW 16.1 H 16.2 H Plt Count 65 L 78 L Manual Plt Count MPV 9.5 10.4 Gran % 71.7 H Lymph % (Auto) 19.1 L Liberty % (Auto) 8.2 H Eos % (Auto) 0.7 L Baso % (Auto) 0.3 Gran # 7.67 H Lymph # (Auto) 2.0 [place] # (Auto) 0.9 H Eos # (Auto) 0.1 Baso # (Auto) 0.03 PT INR APTT Sodium 138 Potassium 4.2 Chloride 106 Carbon Dioxide 28 Anion Gap 8 L BUN 27 H Creatinine 0.8 Est GFR ( Amer) > 60 Est GFR (Non-Af Amer) > 60 Random Glucose 95 Calcium 8.1 L Phosphorus Magnesium Total Bilirubin 4.3 H AST 45 H D ALT 35 Alkaline Phosphatase 55 Total Protein 4.6 L Albumin 1.9 L Globulin 2.7 Albumin/Globulin Ratio 0.7 L Blood Type Antibody Screen Crossmatch BBK History Checked 07/29/18 07/29/18 07/29/18 10:30 10:30 10:30 WBC RBC Hgb Hct MCV MCH MCHC RDW Plt Count Manual Plt Count MPV Gran % Lymph % (Auto) Liberty % (Auto) Eos % (Auto) Baso % (Auto) Gran # Lymph # (Auto) [place] # (Auto) Eos # (Auto) Baso # (Auto) PT 32.3 H INR 2.75 APTT 48.3 H Sodium 138 Potassium 4.2 Chloride 107 Carbon Dioxide 25 Anion Gap 9 L BUN 29 H Creatinine 0.8 Est GFR ( Amer) > 60 Est GFR (Non-Af Amer) > 60 Random Glucose 92 Calcium 8.1 L Phosphorus 2.9 Magnesium 1.5 L Total Bilirubin 4.4 H AST 44 H ALT 37 Alkaline Phosphatase 57 Total Protein 4.7 L Albumin 1.9 L Globulin 2.8 Albumin/Globulin Ratio 0.7 L Blood Type O POSITIVE Antibody Screen Negative Crossmatch See Detail BBK History Checked Patient has bt 07/29/18 07/29/18 07/29/18 11:50 17:00 17:00 WBC 8.4 D RBC 2.67 L Hgb 8.0 L D Hct 23.8 L MCV 89.1 MCH 30.0 MCHC 33.6 RDW 15.0 H Plt Count 52 L Manual Plt Count 90 L MPV 11.1 H Gran % 75.2 H Lymph % (Auto) 16.0 L Liberty % (Auto) 8.1 H Eos % (Auto) 0.5 L Baso % (Auto) 0.2 Gran # 6.29 Lymph # (Auto) 1.3 [place] # (Auto) 0.7 H Eos # (Auto) 0.0 Baso # (Auto) 0.02 PT 23.9 H INR 2.07 APTT Sodium Potassium Chloride Carbon Dioxide Anion Gap BUN Creatinine Est GFR ( Amer) Est GFR (Non-Af Amer) Random Glucose Calcium Phosphorus Magnesium Total Bilirubin AST ALT Alkaline Phosphatase Total Protein Albumin Globulin Albumin/Globulin Ratio Blood Type Antibody Screen Crossmatch BBK History Checked Addendum Addendum: 07/29/18 18:06 ICU Attending Addendum Patient seen and examined. Case reviewed on round with housestaff. Agree with resident note above with the following additions/exceptions: 63 year old female with PMHx of alcohol cirrhosis, esophageal varices, thrombocytopenia, spinal stenosis, arthritis, DJD, 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, seizure, peptic ulcer disease, osteoporosis presented with dizziness having clot in in stool liekly lower gi bleed vs UGIb high risk given esoph varix HB signif drop transfer to ICU 2 unit PRBS 2 units FFP repeat cbc and INR hem on board gi consulted for EGD TLC placed right IJ start levophed if needs MAP goal 60 Rest of care as above Samantha Byers MD Pulmonary Critical Care and Sleep Medicine CC Time: 39 mins
--- NOTE | 2018-07-29 09:49 | CP.PCM.CON ---
<John Hodges - Last Filed: 07/29/18 17:05> History of Present Illness - History of Present Illness History of Present Illness: John Hodges DO, PGY1. GI consult note for Dr Saulo Brock: rectal bleeding 63 year old female with PMHx of alcohol cirrhosis, esophageal varices, PUD, spinal stenosis, arthritis, DJD, CVA, seizure, osteoporosis admitted to [facility] [place] for one episode of rectal bleeding yesterday. Patient states that she noticed a burgundy-colored blood mixed with stool. She reports feeling pressure of left side of her abdomen. He admits to occasionally taking NSAID/tylenol. She denied any associated abdominal pain, nausea, vomiting, hematemesis, hemoptysis. She denies fever, chills, focal weakness, visual changes, CP, SOB, slurred speech, diaphoresis, back pain, urinary/fecal incontinence. 12 point ROS reviewed with pertinent positives as above. PMHx: alcohol cirrhosis, esophageal varices, PUD, spinal stenosis, arthritis, DJD, left posterior parieto-occipital CVA, osteoporosis PSHx: right hip replacement, banding of esophageal varicies in 2013 Meds: as per EMR Allergies: PCN - rash SocialHx: smokes half a pack per day, quit drinking a few months ago - heavy drinker prior to that, lives at home with , denies illicit drugs Past Patient History - Infectious Disease Hx of Infectious Diseases: None - Tetanus Immunizations Tetanus Immunization: Unknown - Past Social History Smoking Status: Former Smoker - CARDIAC Hx Cardiac Disorders: No - PULMONARY Hx Respiratory Disorders: Yes Hx Sleep Apnea: Yes - NEUROLOGICAL Hx Neurological Disorder: Yes HX Cerebrovascular Accident: Yes (03/2018 x2) Other/Comment: Spinal Stenosis , T7-8 Paracentral disc Protusion , C5-6 Disc Bulge , 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 - INTEGUMENTARY Hx Dermatological Problems: No - MUSCULOSKELETAL/RHEUMATOLOGICAL Hx Arthritis: Yes Hx Falls: No - GASTROINTESTINAL Hx Gastrointestinal Disorders: Yes - GENITOURINARY/GYNECOLOGICAL Hx Genitourinary Disorders: No - PSYCHIATRIC Hx Psychophysiologic Disorder: No Hx Substance Use: No - SURGICAL HISTORY Hx Musculoskeletal Surgery: Yes (right hip replacement) Hx Orthopedic Surgery: Yes (left knee surgery) - ANESTHESIA Hx Anesthesia: Yes Hx Anesthesia Reactions: No Hx Malignant Hyperthermia: No Meds Allergies/Adverse Reactions: Allergies Allergy/AdvReac Type Severity Reaction Status Date / Time Penicillins Allergy RASH Verified 07/28/18 15:26 - Medications Medications: Current Medications Acetaminophen (Tylenol 325mg Tab) 650 mg PO Q4H PRN PRN Reason: pain/headache Last Admin: 07/29/18 07:50 Dose: 650 mg Physical Exam - Constitutional Appears: Well, No Acute Distress - Head Exam Head Exam: ATRAUMATIC, NORMAL INSPECTION, NORMOCEPHALIC - Eye Exam Eye Exam: PERRL. absent: Scleral icterus Pupil Exam: NORMAL ACCOMODATION Additional comments: conjunctival pallor - ENT Exam ENT Exam: Mucous Membranes Moist, Normal Exam - Neck Exam Neck exam: Positive for: Normal Inspection - Respiratory Exam Respiratory Exam: Clear to Auscultation Bilateral, NORMAL BREATHING PATTERN - Cardiovascular Exam Cardiovascular Exam: REGULAR RHYTHM, Systolic Murmur. absent: Gallop, Rubs - GI/Abdominal Exam GI & Abdominal Exam: Distended, Normal Bowel Sounds, Organomegaly, Soft. absent: Guarding, Tenderness - Extremities Exam Extremities exam: Positive for: normal capillary refill, normal inspection, pedal pulses present - Back Exam Back exam: NORMAL INSPECTION - Neurological Exam Neurological exam: Alert, Oriented x3 Additional comments: motor strength 5/5 on left side, motor strength 4/5 on right side, negative babinski - Psychiatric Exam Psychiatric exam: Normal Affect, Normal Mood - Skin Skin Exam: Dry, Intact, Pallor, Warm Results - Vital Signs Recent Vital Signs: Last Vital Signs Temp 98.7 F 07/29/18 08:56 Pulse 112 H 07/29/18 08:56 Resp 18 07/29/18 08:56 BP 77/46 L 07/29/18 08:56 Pulse Ox 93 L 07/29/18 08:56 - Labs Result Diagrams: 07/29/18 10:30 07/29/18 10:30 Labs: Laboratory Results - last 24 hr 07/28/18 07/28/18 07/29/18 16:00 16:00 08:00 WBC 10.8 D 8.7 RBC 2.88 L 1.81 L Hgb 8.5 L 5.3 L* D Hct 25.9 L 16.2 L* MCV 89.9 D 89.5 MCH 29.5 29.3 MCHC 32.8 32.7 RDW 15.8 H 16.1 H Plt Count 89 L 65 L MPV 10.2 9.5 Gran % 79.3 H Lymph % (Auto) 12.6 L [place] % (Auto) 7.4 H Eos % (Auto) 0.4 L Baso % (Auto) 0.3 Gran # 8.59 H Lymph # (Auto) 1.4 [place] # (Auto) 0.8 H Eos # (Auto) 0.0 Baso # (Auto) 0.03 Sodium 139 Potassium 4.3 Chloride 104 Carbon Dioxide 27 Anion Gap 12 BUN 18 Creatinine 0.8 Est GFR ( Amer) > 60 Est GFR (Non-Af Amer) > 60 Random Glucose 108 Calcium 9.2 Magnesium 1.7 Total Bilirubin 4.6 H AST 68 H D ALT 32 Alkaline Phosphatase 82 Troponin I 0.02 D Total Protein 6.7 Albumin 2.9 L Globulin 3.8 Albumin/Globulin Ratio 0.8 L 07/29/18 08:00 WBC RBC Hgb Hct MCV MCH MCHC RDW Plt Count MPV Gran % Lymph % (Auto) [place] % (Auto) Eos % (Auto) Baso % (Auto) Gran # Lymph # (Auto) [place] # (Auto) Eos # (Auto) Baso # (Auto) Sodium 138 Potassium 4.2 Chloride 106 Carbon Dioxide 28 Anion Gap 8 L BUN 27 H Creatinine 0.8 Est GFR ( Amer) > 60 Est GFR (Non-Af Amer) > 60 Random Glucose 95 Calcium 8.1 L Magnesium Total Bilirubin 4.3 H AST 45 H D ALT 35 Alkaline Phosphatase 55 Troponin I Total Protein 4.6 L Albumin 1.9 L Globulin 2.7 Albumin/Globulin Ratio 0.7 L Assessment & Plan - Assessment and Plan (Free Text) Assessment: 63 y/o female with decompensated alcoholic cirrhosis, PUD admitted for rectal bleeding History of esophageal varices s/p band ligation Colonic AVM Diverticulosis s/p CVA seizure Previous GI procedures: -EGD 06/2015: large esophageal varices (banded), salmon-colored mucose suspicious for martinez's esophagus -colonoscopy 06/2015: single non-bleeding colonic angiodysplastic lesion in cec um, one 7mm polyp sigmoid colon, diverticulosis in sigmoid colon, internal hemorrhoids Plan: -H/H dropped from 8.5 to 5.3 since yesterday. patient asymptomatic. repeat CBC confirmed the initial reading -INR 2.75 -MELD score 24 -LFT: slightly elevated AST -2u PRBCs ordered as per ICU team, patient transferred to ICU -1u FFP ordered -plan to do EGY/CSPY today to evaluate for blood loss -cipro 400 q12 for SBP ppx -started octreotide -continue PPI 40mg IVP BID -CT A/P 04/07: Cirrhosis with moderate ascites and splenomegaly Case reviewed and plan discussed with attending Dr Saulo Hodges, DO <Jean-Claude Vernon V - Last Filed: 07/29/18 18:22> Meds - Medications Medications: Current Medications Octreotide Acetate 1,250 mcg/ (Sodium Chloride) 252.5 mls @ 10.1 mls/hr IV .Q24H STEVEN; Protocol Last Admin: 07/29/18 12:45 Dose: 50 mcg/hr, 10.1 mls/hr NOREPINEPHRINE BIT/0.9 % NACL (Levophed 4 Mg/ 250 Ml Ns Premixed) 4 mg in 250 mls @ 11.25 mls/hr IV .[id number] PRN; Protocol PRN Reason: TITRATE PER MD ORDER Last Admin: 07/29/18 15:52 Dose: 3 mcg/min, 11.25 mls/hr Levetiracetam (Keppra) 1,000 mg PO Q12 STEVEN Last Admin: 07/29/18 15:51 Dose: Not Given Metoprolol Succinate (Toprol Xl) 25 mg PO DAILY STEVEN Last Admin: 07/29/18 12:41 Dose: Not Given Pantoprazole Sodium (Protonix Inj) 40 mg IVP Q12 STEVEN Results - Vital Signs Recent Vital Signs: Last Vital Signs Temp 98.7 F 07/29/18 08:56 Pulse 95 H 07/29/18 13:10 Resp 17 07/29/18 13:10 BP 76/34 L 01/09/19 13:00 Pulse Ox 98 07/29/18 13:10 - Labs Result Diagrams: 07/29/18 17:00 07/29/18 10:30 Labs: Laboratory Results - last 24 hr 07/29/18 07/29/18 07/29/18 08:00 08:00 10:30 WBC 8.7 10.7 D RBC 1.81 L 1.78 L Hgb 5.3 L* D 5.3 L* Hct 16.2 L* 16.2 L* MCV 89.5 91.0 MCH 29.3 29.8 MCHC 32.7 32.7 RDW 16.1 H 16.2 H Plt Count 65 L 78 L Manual Plt Count MPV 9.5 10.4 Gran % 71.7 H Lymph % (Auto) 19.1 L [place] % (Auto) 8.2 H Eos % (Auto) 0.7 L Baso % (Auto) 0.3 Gran # 7.67 H Lymph # (Auto) 2.0 [place] # (Auto) 0.9 H Eos # (Auto) 0.1 Baso # (Auto) 0.03 PT INR APTT Sodium 138 Potassium 4.2 Chloride 106 Carbon Dioxide 28 Anion Gap 8 L BUN 27 H Creatinine 0.8 Est GFR ( Amer) > 60 Est GFR (Non-Af Amer) > 60 Random Glucose 95 Calcium 8.1 L Phosphorus Magnesium Total Bilirubin 4.3 H AST 45 H D ALT 35 Alkaline Phosphatase 55 Total Protein 4.6 L Albumin 1.9 L Globulin 2.7 Albumin/Globulin Ratio 0.7 L Blood Type Antibody Screen Crossmatch BBK History Checked 07/29/18 07/29/18 07/29/18 10:30 10:30 10:30 WBC RBC Hgb Hct MCV MCH MCHC RDW Plt Count Manual Plt Count MPV Gran % Lymph % (Auto) [place] % (Auto) Eos % (Auto) Baso % (Auto) Gran # Lymph # (Auto) [place] # (Auto) Eos # (Auto) Baso # (Auto) PT 32.3 H INR 2.75 APTT 48.3 H Sodium 138 Potassium 4.2 Chloride 107 Carbon Dioxide 25 Anion Gap 9 L BUN 29 H Creatinine 0.8 Est GFR ( Amer) > 60 Est GFR (Non-Af Amer) > 60 Random Glucose 92 Calcium 8.1 L Phosphorus 2.9 Magnesium 1.5 L Total Bilirubin 4.4 H AST 44 H ALT 37 Alkaline Phosphatase 57 Total Protein 4.7 L Albumin 1.9 L Globulin 2.8 Albumin/Globulin Ratio 0.7 L Blood Type O POSITIVE Antibody Screen Negative Crossmatch See Detail BBK History Checked Patient has bt 07/29/18 07/29/18 07/29/18 11:50 17:00 17:00 WBC 8.4 D RBC 2.67 L Hgb 8.0 L D Hct 23.8 L MCV 89.1 MCH 30.0 MCHC 33.6 RDW 15.0 H Plt Count 52 L Manual Plt Count 90 L MPV 11.1 H Gran % 75.2 H Lymph % (Auto) 16.0 L [place] % (Auto) 8.1 H Eos % (Auto) 0.5 L Baso % (Auto) 0.2 Gran # 6.29 Lymph # (Auto) 1.3 [place] # (Auto) 0.7 H Eos # (Auto) 0.0 Baso # (Auto) 0.02 PT 23.9 H INR 2.07 APTT Sodium Potassium Chloride Carbon Dioxide Anion Gap BUN Creatinine Est GFR ( Amer) Est GFR (Non-Af Amer) Random Glucose Calcium Phosphorus Magnesium Total Bilirubin AST ALT Alkaline Phosphatase Total Protein Albumin Globulin Albumin/Globulin Ratio Blood Type Antibody Screen Crossmatch BBK History Checked Attending/Attestation - Attestation I have personally seen and examined this patient.: Yes I have fully participated in the care of the patient.: Yes I have reviewed all pertinent clinical information: Yes Notes (Text): This is an addendum to GI consult report dictated by the Bus Van Driver. The patient was seen and evaluated earlier. Medical records, lab studies, imagings were reviewed. Last 24 hours events reviewed. Agreed with the above treatment plan as outlined in Bus Van Driver 's notes with the addition of the following previous admission notes reviewed this 63-year-old patient with cirrhosis secondary to EtOH status post CVA Discussed with Dr. Medellin regarding coagulopathy correction Patient did receive 2 units of packed RBC and 1 unit of fresh frozen plasma. Patient is due to get one cryoprecipitate Patient's INR was 2.75 Planned for EGD History of esophageal varices status post band ligation in 2014, history of: AVM and polyps Patient did have a history of hematuria and episodes of bright red/maroon blood per rectum On octreotide and PPI Manual platelet count was checked 07/29/18 18:19
[2018-07-29] MEDS ORDERED: Octreotide 1,250 MCG in Dextrose 5% In Water 250 ML IV SCH (10:30)
[2018-07-29] MEDS ORDERED: cefTRIAXone 1 gm 1 GM/100 ML BAG IVPB SCH (10:30)
[2018-07-29 10:43] LABS: BASO # 0.03 K/mm3 (0.0-2.0); BASO % 0.3 % (0.0-3.0); EOS # 0.1 (0.0-0.7); EOS % 0.7 % (1.5-5.0); GRAN # 7.67 (1.4-6.5); GRAN % 71.7 % (50.0-68.0); LYMPH % 19.1 % (22.0-35.0); MEAN CORPUSCULAR HEMOGLOBIN 29.8 pg (25.0-35.0); MEAN CORPUSCULAR HGB CONC 32.7 g/dl (31.0-37.0); MEAN PLATELET VOLUME 10.4 fl (7.0-11.0); MONO # 0.9 (0.1-0.6); MONO % 8.2 % (1.0-6.0); RBC 1.78 10^6/uL (3.5-6.1); RED CELL DISTRIBUTION WIDTH 16.2 % (11.5-14.5); WHITE BLOOD COUNT 10.7 10^3/uL (4.5-11.0)
[2018-07-29 10:49] LABS: HEMOGLOBIN 5.3 g/dL (12.0-16.0)
[2018-07-29 10:51] LABS: ALB/GLOB RATIO 0.7 (1.1-1.8); ALBUMIN 1.9 g/dL (3.0-4.8); ALT/SGPT 37 U/L (7-56); AST/SGOT 44 U/L (14-36); BLOOD UREA NITROGEN 29 mg/dL (7-21); CALCIUM 8.1 mg/dL (8.4-10.5); GFR NON-AFRICAN AMERICAN > 60
[2018-07-29 10:58] LABS: INR 2.75; PARTIAL THROMBOPLASTIN TIME 48.3 Seconds (25.1-36.5); PROTHROMBIN TIME 32.3 SECONDS (9.4-12.5)
[2018-07-29] MEDS ORDERED: Ciprofloxacin 400mg/200ml D5W 400 MG/200 ML BAG IVPB SCH (11:00)
[2018-07-29] MEDS ORDERED: Metoprolol Succinate 25 mg XL Tab PO SCH (11:00)
[2018-07-29] MEDS ORDERED: Pantoprazole 40 mg EC Tab PO SCH (11:10)
--- NOTE | 2018-07-29 11:40 | RAD ---
Date of service: 07/28/2018 PROCEDURE: CHEST RADIOGRAPH, 1 VIEW HISTORY: sob COMPARISON: 05/19/2018. FINDINGS: LUNGS: Clear. PLEURA: No pneumothorax or pleural fluid seen. CARDIOVASCULAR: No aortic atherosclerotic calcification present. Normal. OSSEOUS STRUCTURES: No significant abnormalities. VISUALIZED UPPER ABDOMEN: Normal. OTHER FINDINGS: None. IMPRESSION: No active disease. Resolution of infiltrates and effusions identified previously.
--- NOTE | 2018-07-29 13:42 | PCM.PROC ---
Addendum Addendum: 07/29/18 13:39 Central Venous Catheter (CVC, Central Line) Placement 07/29/2018 Indication: Hemodynamic instability/Intravenous access Resident: Dr. Campbell Attending: Dr Saji Byers A time-out was completed verifying correct patient, procedure, site, positioning. The patient was placed in a dependent position appropriate for cent ral line placement based on the vein to be cannulated. The patients right neck was prepped and draped in sterile fashion. 1% Lidocaine was used to anesthetize the surrounding skin area. A triple lumen 9-German Cordis catheter was introduced into the internal jugular vein using the Seldinger technique and under ultrasound guidance. The catheter was threaded smoothly over the guide wire and appropriate blood return was obtained. Each lumen of the catheter was evacuated of air and flushed with sterile saline. The catheter was then sutured in place to the skin and a sterile dressing applied. Perfusion to the extremity distal to the point of catheter insertion was checked and found to be adequate. I was was present for the entire procedure. Estimated Blood Loss: minimal The patient tolerated the procedure well and there were no complications. CXR ordered.
--- NOTE | 2018-07-29 14:03 | RAD ---
Date of service: 07/29/2018 HISTORY: central line COMPARISON: No prior. FINDINGS: LUNGS: Right IJ line terminates at the junction of the SVC and right atrium. No pneumothorax. PLEURA: No significant pleural effusion identified, no pneumothorax apparent. CARDIOVASCULAR: No aortic atherosclerotic calcification present. Normal cardiac size. No pulmonary vascular congestion. OSSEOUS STRUCTURES: No significant abnormalities. VISUALIZED UPPER ABDOMEN: Normal. OTHER FINDINGS: None. IMPRESSION: Right IJ line terminates at the junction of the SVC and right atrium. No pneumothorax
[2018-07-29] MEDS ORDERED: NOREPINEPHRINE BIT/0.9 % NACL 4 MG/250 ML BAG IV PRN (14:05)
[2018-07-29] MEDS ORDERED: Magnesium Sulfate 1 gm in D5W 1 GM/100 ML BAG IVPB ONE (16:06)
[2018-07-29 17:17] LABS: BASO # 0.02 K/mm3 (0.0-2.0); BASO % 0.2 % (0.0-3.0); EOS % 0.5 % (1.5-5.0); GRAN # 6.29 (1.4-6.5); GRAN % 75.2 % (50.0-68.0); LYMPH # 1.3 (1.2-3.4); MEAN CELL VOLUME 89.1 fl (80.0-105.0); MEAN CORPUSCULAR HGB CONC 33.6 g/dl (31.0-37.0); MEAN PLATELET VOLUME 11.1 fl (7.0-11.0); MONO # 0.7 (0.1-0.6); MONO % 8.1 % (1.0-6.0); RBC 2.67 10^6/uL (3.5-6.1); WHITE BLOOD COUNT 8.4 10^3/uL (4.5-11.0)
[2018-07-29] MEDS ORDERED: Etomidate 20 mg/10ml Inj IV ONE (17:21)
[2018-07-29] MEDS ORDERED: Benzocaine/Butamben/Tetracai 14-2-2% TOP Spray TOP ONE (17:21)
[2018-07-29] MEDS ORDERED: Midazolam 2 MG/2 ML VIAL ONE (17:21)
[2018-07-29 17:25] LABS: INR 2.07; PROTHROMBIN TIME 23.9 SECONDS (9.4-12.5)
[2018-07-29] MEDS ORDERED: Succinylcholine 200 mg/10 ml Inj IV ONE (17:31)
--- NOTE | 2018-07-29 18:32 | CARD ---
APPROVED REPORT Date of service: 07/28/2018 EKG Measurement Heart [id number] <Conclusion> Normal sinus rhythm Prolonged QT Abnormal ECG
[2018-07-29 21:56] LABS: INR 1.97; PROTHROMBIN TIME 22.8 SECONDS (9.4-12.5)
[2018-07-30 00:29] LABS: HEMOGLOBIN 7.3 g/dL (12.0-16.0); MEAN CELL VOLUME 88.6 fl (80.0-105.0); MEAN CORPUSCULAR HEMOGLOBIN 30.8 pg (25.0-35.0); MEAN CORPUSCULAR HGB CONC 34.8 g/dl (31.0-37.0); MEAN PLATELET VOLUME 9.6 fl (7.0-11.0); RBC 2.37 10^6/uL (3.5-6.1); RED CELL DISTRIBUTION WIDTH 15.6 % (11.5-14.5); WHITE BLOOD COUNT 8.5 10^3/uL (4.5-11.0)
--- NOTE | 2018-07-30 00:50 | CON ---
DATE: 07/28/2018 HEMATOLOGY AND ONCOLOGY CONSULTATION LOCATION: The patient is in CCU, bed 3. REASON FOR CONSULTATION: Severe anemia with background history of thrombocytopenia. HISTORY OF PRESENT ILLNESS: The patient is known to me from prior visits. This is a 63-year-old female with past medical history of alcohol related cirrhosis, esophageal varices, peptic ulcer disease, spinal stenosis, arthritis, DJD, CVA with history of subarachnoid bleed, seizure, osteoporosis, admitted to [facility] after 2 episodes of rectal bleeding yesterday. The patient noticed that she had two separate episodes of burgundy-colored stools mixed with stool. She reported feeling pressure on the right side of the abdomen, which then progressed to the left side of the abdominal pain worsened with movement. The patient admits to having taking two Advil once a week with the last one taking last week. The patient denies any history of abdominal pain, nausea, vomiting, hematemesis, hemoptysis, fevers, chills, focal weakness, visual changes, shortness of breath, slurred speech, diaphoresis, back pain, or urinary or fecal incontinence. PAST MEDICAL HISTORY: Significant for alcoholic cirrhosis with esophageal varices in the past that was banded in 2014, peptic ulcer disease, spinal stenosis, arthritis, DJD, left parietal occipital CVA, and osteoporosis. PAST SURGICAL HISTORY: Significant for right hip replacement and banding of esophageal varices in 2014. ALLERGIES: THE PATIENT HAS ALLERGIES TO PENICILLIN. THE PATIENT TELLS THAT SHE HAD A RASH WITH PENICILLIN IN THE PAST. SOCIAL HISTORY: The patient smokes half a pack a day, quit drinking a few months ago. Denies any illicit drugs. REVIEW OF SYSTEMS: A 12-point review of systems was negative except for what is mentioned in the HPI. PHYSICAL EXAMINATION: GENERAL: Reveals the patient to be in no acute distress. VITAL SIGNS: The patient's vital signs were reviewed. T-max is 98.7, pulse is 112, respirations are 18, blood pressure is 77/66 with pulse ox of 93%. HEENT: Head is normocephalic and atraumatic. Conjunctivae pale. Sclerae anicteric. Pupils are equally reactive to light and accommodation. Examination of the oropharynx reveals no oropharyngeal lesions. NECK: Supple. There is no adenopathy. LUNGS: Clear to percussion and auscultation. CARDIOVASCULAR: Reveals S1 and S2 to be normal. No gallop or murmurs heard. ABDOMEN: Soft and distended. Organomegaly is noted of the liver. There is no rebound, rigidity, or guarding noted. EXTREMITIES: Positive for normal capillary refills. Pedal pulses are felt. BACK: Unremarkable. NEUROLOGIC: Reveals no focal deficits. PSYCHIATRIC: The patient has normal affect. Normal mood. SKIN: Dry and intact. Pallor is noted. LABORATORY DATA: Admission labs showed hemoglobin of 5.3 with a hematocrit of 16.2, white count of 10.7, and platelet count of 78,000. Chemistries at that time were normal. Chemistry revealed sodium of 138, K is 4.2, chloride 107, CO2 of 25, BUN 29, and creatinine 0.8. Blood sugar is 92. ASSESSMENT, NOTES AND PLAN: This is a patient who has coagulopathy probably related to marginal liver function. INR done earlier today was reported to be greater than 2. The patient's hemoglobin is down to 7 unchanged. The patient will require blood transfusion. She is also going to require blood products in order for us to neutralize the coagulopathy. The to do so would be to give fresh frozen plasma or cryoprecipitate. If cryoprecipitate is available that will be the first choice, otherwise giving fresh frozen plasma is not a major contraindication. If portal pressures are high, we want to give less volume and in that case cryoprecipitate will be more appropriate. One cryoprecipitate unit will give about 4 or 5 units of pooled plasma and since it is rich in fibrinogen, it will correct the bleeding rather dramatically. Recommended that the patient get the cryoprecipitate before she goes for a planned endoscopy. If the patient is noted to have any specific sites of bleeding, we can then discuss at that point in time with GI whether what needs to be done. The patient's medications were reviewed and she has been on octreotide drip at this time to prevent the bleeding. She is on Keppra I believe neurologic prophylaxis. She is on pantoprazole 20 mg IV daily. She is on metoprolol succinate and Toprol-XL 25 mg p.o. daily. We will follow the patient with you to make appropriate recommendations depending on further blood counts. I have told the resident to repeat the blood work especially the coagulopathy blood work to rule out disseminated intravascular coagulation to do repeat fibrinogen, fibrin split products and follow with CBC every 6 to 12 hours. If the PT/INR does not correct, it usually cannot bad outcome as that tells us liver functions have deteriorated rather dramatically. Endoscopically, we will tell us if bleeding is from varicose veins that may need to be banded at this time. Overall prognosis is guarded at this time. We will follow the patient with you and critically make recommendations over the next several days if she continues to be in the unit. Please make a note, this is a complex patient with multiple comorbid medical issues. Bijal Medellin MD
[2018-07-30 04:37] LABS: HEMOGLOBIN 7.2 g/dL (12.0-16.0); INR 1.97; MEAN CORPUSCULAR HEMOGLOBIN 30.8 pg (25.0-35.0); MEAN PLATELET VOLUME 9.8 fl (7.0-11.0); PARTIAL THROMBOPLASTIN TIME 40.6 Seconds (25.1-36.5); PROTHROMBIN TIME 22.8 SECONDS (9.4-12.5); RBC 2.34 10^6/uL (3.5-6.1); RED CELL DISTRIBUTION WIDTH 15.5 % (11.5-14.5)
[2018-07-30 04:55] LABS: ALB/GLOB RATIO 0.7 (1.1-1.8)
[2018-07-30 05:18] LABS: ALBUMIN 2.1 g/dL (3.0-4.8); ALT/SGPT 38 U/L (7-56); AST/SGOT 50 U/L (14-36); BLOOD UREA NITROGEN 30 mg/dL (7-21); CALCIUM 8.1 mg/dL (8.4-10.5); GFR NON-AFRICAN AMERICAN > 60
--- NOTE | 2018-07-30 07:48 | CP.CCUPN ---
<Mehul Campbell - Last Filed: 07/30/18 11:59> CCU Subjective - Physician Review Subjective (Free Text): Mehul Campbell PGY-1 Progress Note for ICU Patient seen and evaluated at bedside. No acute events reported overnight. Tolerated endoscopy late yesterday afternoon. Complains of headache this morning as well as nonproductive cough but denies chest pain, shortness of breath, blurry vision, abdominal pain, hemoptysis, melena. Fatigue has improved. CCU Objective - Vital Signs / Intake & Output Vital Signs (Last 4 hours): Vital Signs Pulse Resp BP Pulse Ox 07/30/18 06:45 93 H 17 111/58 L 94 L 07/30/18 06:30 94 H 18 106/60 92 L 07/30/18 06:15 97 H 18 110/55 L 91 L 07/30/18 06:00 97 H 20 128/63 94 L 07/30/18 05:45 100 H 17 97/52 L 92 L 07/30/18 05:30 103 H 17 95/48 L 89 L 07/30/18 05:15 101 H 17 94/48 L 89 L 07/30/18 05:10 95 H 17 98/51 L 90 L 07/30/18 04:45 94 H 16 102/48 L 90 L 07/30/18 04:30 96 H 18 107/55 L 92 L 07/30/18 04:15 97 H 18 104/55 L 89 L 07/30/18 04:00 96 H 18 107/53 L 92 L 07/30/18 03:45 90 36 H 107/51 L 95 Intake and Output (Last 8hrs): Intake & Output 07/29/18 07/30/18 07/30/18 22:59 06:59 14:59 Intake Total 3819 750 Output Total 500 500 Balance 3319 250 Weight 60.328 kg Intake: IV 3088 350 Left Hand 2357 Right Antecubital 731 Right Internal Jugular 350 Oral 400 Blood Product 731 Output: Urine 500 Urine, Voided 500 Stool 500 Other: # Voids Urine, Voided 0 - Physical Exam Head: Positive for: Atraumatic, Normocephalic Pupils: Positive for: PERRL Extroacular Muscles: Positive for: EOMI Conjunctiva: Positive for: Normal Mouth: Positive for: Moist Mucous Membranes. Negative for: Normal Teeth (poor dentition) Neck: Positive for: Normal Range of Motion Respiratory/Chest: Positive for: Clear to Auscultation, Good Air Exchange. Negative for: Respiratory Distress, Accessory Muscle Use Cardiovascular: Positive for: Regular Rate and Rhythm, Normal S1, S2. Negative for: Murmurs Abdomen: Positive for: Tenderness (slight tenderness to the right lower quadrant). Negative for: Distention, Peritoneal Signs Rectal: Positive for: Occult Blood (heme occult positive w/ dilip blood on finger ), Gross Blood, Hemorrhoids (external nonthrombosed hemmrhoids, internal hemorrhoids palpated). Negative for: Rectal Tenderness (no pain w/ insertion of finger) Back: Positive for: Normal Inspection Upper Extremity: Positive for: Normal Inspection. Negative for: Cyanosis, Edema Lower Extremity: Positive for: Normal Inspection. Negative for: Edema Neurological: Positive for: GCS=15, CN II-XII Intact, Speech Normal Skin: Positive for: Warm, Dry, Normal Color. Negative for: Rashes Psychiatric: Positive for: Alert, Oriented x 3, Normal Insight, Normal Concentration - Medications Active Medications: Active Medications Generic Name Dose Route Start Last Admin Trade Name Freq PRN Reason Stop Dose Admin Octreotide Acetate 1,250 mcg/ 252.5 mls @ 10.1 mls/hr 07/29/18 11:00 07/29/18 12:45 Sodium Chloride IV 50 mcg/hr .Q24H STEVEN 10.1 mls/hr Administration Protocol 50 MCG/HR NOREPINEPHRINE BIT/0.9 % NACL 4 mg in 250 mls @ 11.25 mls/hr 07/29/18 14:05 07/29/18 15:52 Levophed 4 Mg/ 250 Ml Ns Premixed IV 3 mcg/min .[id number] PRN 11.25 mls/hr TITRATE PER MD ORDER Administration Protocol 3 MCG/MIN Levetiracetam 1,000 mg 07/29/18 11:00 07/29/18 22:00 Keppra PO 1,000 mg Q12 STEVEN Administration Metoprolol Succinate 25 mg 07/29/18 11:00 07/29/18 12:41 Toprol Xl PO Not Given DAILY STEVEN Pantoprazole Sodium 20 mg 07/30/18 10:00 Protonix Inj IVP DAILY STEVEN - Patient Studies Lab Studies: Lab Studies 07/30/18 07/30/18 07/30/18 Range/Units 05:00 04:10 04:10 WBC 8.0 (4.5-11.0) 10^3/uL RBC 2.34 L (3.5-6.1) 10^6/uL Hgb 7.2 L (12.0-16.0) g/dL Hct 20.6 L* (36.0-48.0) % MCV 88.0 (80.0-105.0) fl MCH 30.8 (25.0-35.0) pg MCHC 35.0 (31.0-37.0) g/dl RDW 15.5 H (11.5-14.5) % Plt Count 64 L (120.0-450.0) 10^3/uL Manual Plt Count (120-450) K/mm3 MPV 9.8 (7.0-11.0) fl Gran % (50.0-68.0) % Lymph % (Auto) (22.0-35.0) % [place] % (Auto) (1.0-6.0) % Eos % (Auto) (1.5-5.0) % Baso % (Auto) (0.0-3.0) % Gran # (1.4-6.5) Lymph # (Auto) (1.2-3.4) [place] # (Auto) (0.1-0.6) Eos # (Auto) (0.0-0.7) Baso # (Auto) (0.0-2.0) K/mm3 PT 22.8 H (9.4-12.5) SECONDS INR 1.97 APTT 40.6 H (25.1-36.5) Seconds Fibrinogen 130 L (200-400) mg/dl Fibrin Degrad Products >10 <40 ug/ml (< 10 ug/mL) Sodium (132-148) mmol/L Potassium (3.6-5.0) mmol/L Chloride (98-107) mmol/L Carbon Dioxide (21-33) mmol/L Anion Gap (10-20) BUN (7-21) mg/dL Creatinine (0.7-1.2) mg/dl Est GFR ( Amer) Est GFR (Non-Af Amer) Random Glucose (70-110) mg/dL Calcium (8.4-10.5) mg/dL Phosphorus (2.5-4.5) mg/dL Magnesium (1.7-2.2) mg/dL Total Bilirubin (0.2-1.3) mg/dL AST (14-36) U/L ALT (7-56) U/L Alkaline Phosphatase (38-126) U/L Total Protein (5.8-8.3) g/dL Albumin (3.0-4.8) g/dL Globulin gm/dL Albumin/Globulin Ratio (1.1-1.8) Blood Type Antibody Screen Crossmatch BBK History Checked 07/30/18 07/29/18 07/29/18 Range/Units 04:10 23:58 21:05 WBC 8.5 (4.5-11.0) 10^3/uL RBC 2.37 L (3.5-6.1) 10^6/uL Hgb 7.3 L (12.0-16.0) g/dL Hct 21.0 L (36.0-48.0) % MCV 88.6 (80.0-105.0) fl MCH 30.8 (25.0-35.0) pg MCHC 34.8 (31.0-37.0) g/dl RDW 15.6 H (11.5-14.5) % Plt Count 59 L (120.0-450.0) 10^3/uL Manual Plt Count (120-450) K/mm3 MPV 9.6 (7.0-11.0) fl Gran % (50.0-68.0) % Lymph % (Auto) (22.0-35.0) % [place] % (Auto) (1.0-6.0) % Eos % (Auto) (1.5-5.0) % Baso % (Auto) (0.0-3.0) % Gran # (1.4-6.5) Lymph # (Auto) (1.2-3.4) [place] # (Auto) (0.1-0.6) Eos # (Auto) (0.0-0.7) Baso # (Auto) (0.0-2.0) K/mm3 PT 22.8 H (9.4-12.5) SECONDS INR 1.97 APTT (25.1-36.5) Seconds Fibrinogen (200-400) mg/dl Fibrin Degrad Products (< 10 ug/mL) Sodium 139 (132-148) mmol/L Potassium 4.2 (3.6-5.0) mmol/L Chloride 110 H (98-107) mmol/L Carbon Dioxide 26 (21-33) mmol/L Anion Gap 8 L (10-20) BUN 30 H (7-21) mg/dL Creatinine 0.8 (0.7-1.2) mg/dl Est GFR ( Amer) > 60 Est GFR (Non-Af Amer) > 60 Random Glucose 101 (70-110) mg/dL Calcium 8.1 L (8.4-10.5) mg/dL Phosphorus (2.5-4.5) mg/dL Magnesium (1.7-2.2) mg/dL Total Bilirubin 5.4 H (0.2-1.3) mg/dL AST 50 H (14-36) U/L ALT 38 (7-56) U/L Alkaline Phosphatase 58 (38-126) U/L Total Protein 4.9 L (5.8-8.3) g/dL Albumin 2.1 L (3.0-4.8) g/dL Globulin 2.8 gm/dL Albumin/Globulin Ratio 0.7 L (1.1-1.8) Blood Type Antibody Screen Crossmatch BBK History Checked 07/29/18 07/29/18 07/29/18 Range/Units 17:00 17:00 11:50 WBC 8.4 D (4.5-11.0) 10^3/uL RBC 2.67 L (3.5-6.1) 10^6/uL Hgb 8.0 L D (12.0-16.0) g/dL Hct 23.8 L (36.0-48.0) % MCV 89.1 (80.0-105.0) fl MCH 30.0 (25.0-35.0) pg MCHC 33.6 (31.0-37.0) g/dl RDW 15.0 H (11.5-14.5) % Plt Count 52 L (120.0-450.0) 10^3/uL Manual Plt Count 90 L (120-450) K/mm3 MPV 11.1 H (7.0-11.0) fl Gran % 75.2 H (50.0-68.0) % Lymph % (Auto) 16.0 L (22.0-35.0) % [place] % (Auto) 8.1 H (1.0-6.0) % Eos % (Auto) 0.5 L (1.5-5.0) % Baso % (Auto) 0.2 (0.0-3.0) % Gran # 6.29 (1.4-6.5) Lymph # (Auto) 1.3 (1.2-3.4) [place] # (Auto) 0.7 H (0.1-0.6) Eos # (Auto) 0.0 (0.0-0.7) Baso # (Auto) 0.02 (0.0-2.0) K/mm3 PT 23.9 H (9.4-12.5) SECONDS INR 2.07 APTT (25.1-36.5) Seconds Fibrinogen (200-400) mg/dl Fibrin Degrad Products (< 10 ug/mL) Sodium (132-148) mmol/L Potassium (3.6-5.0) mmol/L Chloride (98-107) mmol/L Carbon Dioxide (21-33) mmol/L Anion Gap (10-20) BUN (7-21) mg/dL Creatinine (0.7-1.2) mg/dl Est GFR ( Amer) Est GFR (Non-Af Amer) Random Glucose (70-110) mg/dL Calcium (8.4-10.5) mg/dL Phosphorus (2.5-4.5) mg/dL Magnesium (1.7-2.2) mg/dL Total Bilirubin (0.2-1.3) mg/dL AST (14-36) U/L ALT (7-56) U/L Alkaline Phosphatase (38-126) U/L Total Protein (5.8-8.3) g/dL Albumin (3.0-4.8) g/dL Globulin gm/dL Albumin/Globulin Ratio (1.1-1.8) Blood Type Antibody Screen Crossmatch BBK History Checked 01/09/19 01/09/19 01/09/19 Range/Units 10:30 10:30 10:30 WBC (4.5-11.0) 10^3/uL RBC (3.5-6.1) 10^6/uL Hgb (12.0-16.0) g/dL Hct (36.0-48.0) % MCV (80.0-105.0) fl MCH (25.0-35.0) pg MCHC (31.0-37.0) g/dl RDW (11.5-14.5) % Plt Count (120.0-450.0) 10^3/uL Manual Plt Count (120-450) K/mm3 MPV (7.0-11.0) fl Gran % (50.0-68.0) % Lymph % (Auto) (22.0-35.0) % [place] % (Auto) (1.0-6.0) % Eos % (Auto) (1.5-5.0) % Baso % (Auto) (0.0-3.0) % Gran # (1.4-6.5) Lymph # (Auto) (1.2-3.4) [place] # (Auto) (0.1-0.6) Eos # (Auto) (0.0-0.7) Baso # (Auto) (0.0-2.0) K/mm3 PT 32.3 H (9.4-12.5) SECONDS INR 2.75 APTT 48.3 H (25.1-36.5) Seconds Fibrinogen (200-400) mg/dl Fibrin Degrad Products (< 10 ug/mL) Sodium 138 (132-148) mmol/L Potassium 4.2 (3.6-5.0) mmol/L Chloride 107 (98-107) mmol/L Carbon Dioxide 25 (21-33) mmol/L Anion Gap 9 L (10-20) BUN 29 H (7-21) mg/dL Creatinine 0.8 (0.7-1.2) mg/dl Est GFR ( Amer) > 60 Est GFR (Non-Af Amer) > 60 Random Glucose 92 (70-110) mg/dL Calcium 8.1 L (8.4-10.5) mg/dL Phosphorus 2.9 (2.5-4.5) mg/dL Magnesium 1.5 L (1.7-2.2) mg/dL Total Bilirubin 4.4 H (0.2-1.3) mg/dL AST 44 H (14-36) U/L ALT 37 (7-56) U/L Alkaline Phosphatase 57 (38-126) U/L Total Protein 4.7 L (5.8-8.3) g/dL Albumin 1.9 L (3.0-4.8) g/dL Globulin 2.8 gm/dL Albumin/Globulin Ratio 0.7 L (1.1-1.8) Blood Type O POSITIVE Antibody Screen Negative Crossmatch See Detail BBK History Checked Patient has bt 07/29/18 07/29/18 07/29/18 Range/Units 10:30 08:00 08:00 WBC 10.7 D 8.7 (4.5-11.0) 10^3/uL RBC 1.78 L 1.81 L (3.5-6.1) 10^6/uL Hgb 5.3 L* 5.3 L* D (12.0-16.0) g/dL Hct 16.2 L* 16.2 L* (36.0-48.0) % MCV 91.0 89.5 (80.0-105.0) fl MCH 29.8 29.3 (25.0-35.0) pg MCHC 32.7 32.7 (31.0-37.0) g/dl RDW 16.2 H 16.1 H (11.5-14.5) % Plt Count 78 L 65 L (120.0-450.0) 10^3/uL Manual Plt Count (120-450) K/mm3 MPV 10.4 9.5 (7.0-11.0) fl Gran % 71.7 H (50.0-68.0) % Lymph % (Auto) 19.1 L (22.0-35.0) % [place] % (Auto) 8.2 H (1.0-6.0) % Eos % (Auto) 0.7 L (1.5-5.0) % Baso % (Auto) 0.3 (0.0-3.0) % Gran # 7.67 H (1.4-6.5) Lymph # (Auto) 2.0 (1.2-3.4) [place] # (Auto) 0.9 H (0.1-0.6) Eos # (Auto) 0.1 (0.0-0.7) Baso # (Auto) 0.03 (0.0-2.0) K/mm3 PT (9.4-12.5) SECONDS INR APTT (25.1-36.5) Seconds Fibrinogen (200-400) mg/dl Fibrin Degrad Products (< 10 ug/mL) Sodium 138 (132-148) mmol/L Potassium 4.2 (3.6-5.0) mmol/L Chloride 106 (98-107) mmol/L Carbon Dioxide 28 (21-33) mmol/L Anion Gap 8 L (10-20) BUN 27 H (7-21) mg/dL Creatinine 0.8 (0.7-1.2) mg/dl Est GFR ( Amer) > 60 Est GFR (Non-Af Amer) > 60 Random Glucose 95 (70-110) mg/dL Calcium 8.1 L (8.4-10.5) mg/dL Phosphorus (2.5-4.5) mg/dL Magnesium (1.7-2.2) mg/dL Total Bilirubin 4.3 H (0.2-1.3) mg/dL AST 45 H D (14-36) U/L ALT 35 (7-56) U/L Alkaline Phosphatase 55 (38-126) U/L Total Protein 4.6 L (5.8-8.3) g/dL Albumin 1.9 L (3.0-4.8) g/dL Globulin 2.7 gm/dL Albumin/Globulin Ratio 0.7 L (1.1-1.8) Blood Type Antibody Screen Crossmatch BBK History Checked Laboratory Results - last 24 hr 07/29/18 07/29/18 07/29/18 08:00 08:00 10:30 WBC 8.7 10.7 D RBC 1.81 L 1.78 L Hgb 5.3 L* D 5.3 L* Hct 16.2 L* 16.2 L* MCV 89.5 91.0 MCH 29.3 29.8 MCHC 32.7 32.7 RDW 16.1 H 16.2 H Plt Count 65 L 78 L Manual Plt Count MPV 9.5 10.4 Gran % 71.7 H Lymph % (Auto) 19.1 L [place] % (Auto) 8.2 H Eos % (Auto) 0.7 L Baso % (Auto) 0.3 Gran # 7.67 H Lymph # (Auto) 2.0 [place] # (Auto) 0.9 H Eos # (Auto) 0.1 Baso # (Auto) 0.03 PT INR APTT Fibrinogen Fibrin Degrad Products Sodium 138 Potassium 4.2 Chloride 106 Carbon Dioxide 28 Anion Gap 8 L BUN 27 H Creatinine 0.8 Est GFR ( Amer) > 60 Est GFR (Non-Af Amer) > 60 Random Glucose 95 Calcium 8.1 L Phosphorus Magnesium Total Bilirubin 4.3 H AST 45 H D ALT 35 Alkaline Phosphatase 55 Total Protein 4.6 L Albumin 1.9 L Globulin 2.7 Albumin/Globulin Ratio 0.7 L Blood Type Antibody Screen Crossmatch BBK History Checked 07/29/18 07/29/18 07/29/18 10:30 10:30 10:30 WBC RBC Hgb Hct MCV MCH MCHC RDW Plt Count Manual Plt Count MPV Gran % Lymph % (Auto) [place] % (Auto) Eos % (Auto) Baso % (Auto) Gran # Lymph # (Auto) [place] # (Auto) Eos # (Auto) Baso # (Auto) PT 32.3 H INR 2.75 APTT 48.3 H Fibrinogen Fibrin Degrad Products Sodium 138 Potassium 4.2 Chloride 107 Carbon Dioxide 25 Anion Gap 9 L BUN 29 H Creatinine 0.8 Est GFR ( Amer) > 60 Est GFR (Non-Af Amer) > 60 Random Glucose 92 Calcium 8.1 L Phosphorus 2.9 Magnesium 1.5 L Total Bilirubin 4.4 H AST 44 H ALT 37 Alkaline Phosphatase 57 Total Protein 4.7 L Albumin 1.9 L Globulin 2.8 Albumin/Globulin Ratio 0.7 L Blood Type O POSITIVE Antibody Screen Negative Crossmatch See Detail BBK History Checked Patient has bt 07/29/18 07/29/18 07/29/18 11:50 17:00 17:00 WBC 8.4 D RBC 2.67 L Hgb 8.0 L D Hct 23.8 L MCV 89.1 MCH 30.0 MCHC 33.6 RDW 15.0 H Plt Count 52 L Manual Plt Count 90 L MPV 11.1 H Gran % 75.2 H Lymph % (Auto) 16.0 L [place] % (Auto) 8.1 H Eos % (Auto) 0.5 L Baso % (Auto) 0.2 Gran # 6.29 Lymph # (Auto) 1.3 [place] # (Auto) 0.7 H Eos # (Auto) 0.0 Baso # (Auto) 0.02 PT 23.9 H INR 2.07 APTT Fibrinogen Fibrin Degrad Products Sodium Potassium Chloride Carbon Dioxide Anion Gap BUN Creatinine Est GFR ( Amer) Est GFR (Non-Af Amer) Random Glucose Calcium Phosphorus Magnesium Total Bilirubin AST ALT Alkaline Phosphatase Total Protein Albumin Globulin Albumin/Globulin Ratio Blood Type Antibody Screen Crossmatch BBK History Checked 07/29/18 07/29/18 07/30/18 21:05 23:58 04:10 WBC 8.5 RBC 2.37 L Hgb 7.3 L Hct 21.0 L MCV 88.6 MCH 30.8 MCHC 34.8 RDW 15.6 H Plt Count 59 L Manual Plt Count MPV 9.6 Gran % Lymph % (Auto) [place] % (Auto) Eos % (Auto) Baso % (Auto) Gran # Lymph # (Auto) [place] # (Auto) Eos # (Auto) Baso # (Auto) PT 22.8 H INR 1.97 APTT Fibrinogen Fibrin Degrad Products Sodium 139 Potassium 4.2 Chloride 110 H Carbon Dioxide 26 Anion Gap 8 L BUN 30 H Creatinine 0.8 Est GFR ( Amer) > 60 Est GFR (Non-Af Amer) > 60 Random Glucose 101 Calcium 8.1 L Phosphorus Magnesium Total Bilirubin 5.4 H AST 50 H ALT 38 Alkaline Phosphatase 58 Total Protein 4.9 L Albumin 2.1 L Globulin 2.8 Albumin/Globulin Ratio 0.7 L Blood Type Antibody Screen Crossmatch BBK History Checked 07/30/18 07/30/18 07/30/18 04:10 04:10 05:00 WBC 8.0 RBC 2.34 L Hgb 7.2 L Hct 20.6 L* MCV 88.0 MCH 30.8 MCHC 35.0 RDW 15.5 H Plt Count 64 L Manual Plt Count MPV 9.8 Gran % Lymph % (Auto) [place] % (Auto) Eos % (Auto) Baso % (Auto) Gran # Lymph # (Auto) [place] # (Auto) Eos # (Auto) Baso # (Auto) PT 22.8 H INR 1.97 APTT 40.6 H Fibrinogen 130 L Fibrin Degrad Products >10 <40 ug/ml Sodium Potassium Chloride Carbon Dioxide Anion Gap BUN Creatinine Est GFR ( Amer) Est GFR (Non-Af Amer) Random Glucose Calcium Phosphorus Magnesium Total Bilirubin AST ALT Alkaline Phosphatase Total Protein Albumin Globulin Albumin/Globulin Ratio Blood Type Antibody Screen Crossmatch BBK History Checked Radiology Impressions: Radiology Impressions Chest X-Ray 07/28/18 15:38 IMPRESSION: No active disease. Resolution of infiltrates and effusions identified previously. Chest X-Ray 07/29/18 13:24 IMPRESSION: Right IJ line terminates at the junction of the SVC and right atrium. 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 S/p 2 L NS, 2 units PRBC and 1 unit FFP, 1 cryoprecipitate. Neuro: - 07/28/[address] w/o contrast: no acute intracranial abnormality. 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 - Keppra 1000 BID for seizure history - AAOx3, no FND, moving extremities past midline. - Monitor neuro status. - Reorient patient as necessary. Heme/Onc: Aplastic anemia - H/H improved to 8.0 s/p 2 units PRBC , 1 FFP, 1 cryoprecipitate 7.2 overnight, down to 6.1. Plan to tranfuse 2 unit PRBC, 1 additional cryoprecipitate - RBC 1.78 Thrmbocytopenia - Manual PLT ct pending, PLT count 46 - F/u PT/INR s/p transfusions 22.8/1.97 - Continue monitoring H/H - Hem/Onc consulted - Dr. Medellin - further recs appreciated. Sustained hypotension - Central line placed - Hypotensive yesterday, improved yesterday and stable overnight - Discontinue Levophed at 3mcg/min Cardio: - EKG done on admission shows: NSR at 95 bpm with prolonged QT interval, no ST elevations. - Trop 0.02 - Maintain MAP > 60. - Monitor for S/S, HD compromise. Pulm: - No signs of respiratory distress. CTA B/L, 93% on RA - Patient is satting well on room air. - Maintain O2 saturation>92%. - O2 NC PRN Vent: protective lung ventilation strategy, aspiration precautions - 07/28/18 CXR:vascular markings but no consolidations - Elevate bed to 30 degrees GI: Dr. Vernon consulted - recs appreciated. Will consider ordering bleeding scan. Colonoscopy planned once clinically stable. - melenotic BM - Continue Octreotide drip 50 mcg/hr Hx of EtOH Cirrhosis, Ascites, colonic AVMs, esophageal varices banded in 201407/29/18 Endoscopy showed moderate portal hypertensive gastropathy. 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 Grade 1 varices. - colonoscopy planned for 07/31/18 - Begin Cipro 400 BID V x 7 days - CLD - Protonix /Nephro: - BUN/Cr stable - F/U UA - Good urine output - Continue monitoring. Pseudohypocalcemia - Replete electrolytes as needed. - Maintaineuvolemia. Endocrinology: - Random glucose:92, 101 - Maintain euglycemia 140-180. ID: - ID consulted - Dr. Perez, ABx coverage and recs appreciated - Afebrile, no leukocytosis - Monitor for signs and symptoms of infection. DVT prophylaxis:SCDS, holding pharm prophylaxis in light of melena GI prophylaxis:Protonix 20 IVP daily per GI recs s/p endoscopy Patient seen, case reviewed, and plan approved by Dr. Anu Byers. Mehul Campbell, PGY-1 <Samantha Byers - Last Filed: 07/30/18 17:09> CCU Objective - Vital Signs / Intake & Output Vital Signs (Last 4 hours): Vital Signs Temp Pulse Resp BP Pulse Ox 07/30/18 16:10 99.2 F 94 H 22 99/57 L 07/30/18 16:00 94 H 19 99/57 L 93 L 07/30/18 15:52 91 H 15 95/46 L 94 L 07/30/18 15:35 78 23 82/44 L 94 L 07/30/18 15:34 84 78/30 L 95 07/30/18 15:08 99 F 89 24 81/38 L 07/30/18 15:00 84 25 H 81/38 L 93 L 07/30/18 14:53 99.2 F 85 25 H 94/49 L 07/30/18 14:36 91 H 25 H 94/49 L 92 L 07/30/18 14:32 99.2 F 07/30/18 14:00 98 H 24 91/47 L 93 L 07/30/18 13:35 102 H 22 85/47 L 92 L 07/30/18 13:30 101 H 20 92/46 L 93 L 07/30/18 13:15 101 H 24 92/47 L 91 L Intake and Output (Last 8hrs): Intake & Output 07/30/18 07/30/18 07/30/18 06:59 14:59 22:59 Intake Total 750 630.5 Output Total 500 Balance 250 630.5 Weight 60.328 kg Intake: IV 350 302.5 Right Internal Jugular 350 Oral 400 Blood Product 278 Apheresis Rbc Cp2d As3 Lr 278 1st Unit [id number] Red Blood Cells Cpd As1 0 Lr Unit [id number] Other 50 Apheresis Rbc Cp2d As3 Lr 50 1st Unit [id number] Output: Urine 500 Urine, Voided 500 Other: # Voids Urine, Voided 0 - Medications Active Medications: Active Medications Generic Name Dose Route Start Last Admin Trade Name Amauriq PRN Reason Stop Dose Admin Acetaminophen 650 mg 07/30/18 09:02 07/30/18 14:32 Tylenol 325mg Tab PO 650 mg Q6H PRN Administration Headache Guaifenesin/Dextromethorphan 5 ml 07/30/18 09:04 Robitussin Dm PO Q4H PRN Cough Octreotide Acetate 1,250 mcg/ 252.5 mls @ 10.1 mls/hr 07/29/18 11:00 07/30/18 14:10 Sodium Chloride IV 50 mcg/hr .Q24H STEVEN 10.1 mls/hr Administration Protocol 50 MCG/HR NOREPINEPHRINE BIT/0.9 % NACL 4 mg in 250 mls @ 11.25 mls/hr 07/29/18 14:05 07/30/18 10:15 Levophed 4 Mg/ 250 Ml Ns Premixed IV 0 mcg/min .[id number] PRN 0 mls/hr TITRATE PER MD ORDER Titration Protocol 3 MCG/MIN Meropenem 1 gm in 50 mls @ 100 mls/hr 07/30/18 11:16 07/30/18 14:15 Merrem Iv 1 Gm Premix IVPB 08/08/18 11:17 100 mls/hr Q8 STEVEN Administration Protocol Levetiracetam 1,000 mg 07/29/18 11:00 07/30/18 09:35 Keppra PO 1,000 mg Q12 STEVEN Administration Metoprolol Succinate 25 mg 07/29/18 11:00 07/29/18 12:41 Toprol Xl PO Not Given DAILY STEVEN Pantoprazole Sodium 20 mg 07/30/18 10:00 07/30/18 09:35 Protonix Inj IVP 20 mg DAILY STEVEN Administration - Patient Studies Lab Studies: Lab Studies 07/30/18 07/30/18 07/30/18 Range/Units 08:40 08:23 05:00 WBC 6.5 (4.5-11.0) 10^3/uL RBC 2.02 L (3.5-6.1) 10^6/uL Hgb 6.1 L* (12.0-16.0) g/dL Hct 18.1 L* (36.0-48.0) % MCV 89.6 (80.0-105.0) fl MCH 30.2 (25.0-35.0) pg MCHC 33.7 (31.0-37.0) g/dl RDW 15.7 H (11.5-14.5) % Plt Count 46 L* (120.0-450.0) 10^3/uL MPV 9.5 (7.0-11.0) fl Gran % (50.0-68.0) % Lymph % (Auto) (22.0-35.0) % [place] % (Auto) (1.0-6.0) % Eos % (Auto) (1.5-5.0) % Baso % (Auto) (0.0-3.0) % Gran # (1.4-6.5) Lymph # (Auto) (1.2-3.4) [place] # (Auto) (0.1-0.6) Eos # (Auto) (0.0-0.7) Baso # (Auto) (0.0-2.0) K/mm3 PT (9.4-12.5) SECONDS INR APTT (25.1-36.5) Seconds Fibrinogen (200-400) mg/dl Fibrin Degrad Products >10 <40 ug/ml (< 10 ug/mL) Sodium (132-148) mmol/L Potassium (3.6-5.0) mmol/L Chloride (98-107) mmol/L Carbon Dioxide (21-33) mmol/L Anion Gap (10-20) BUN (7-21) mg/dL Creatinine (0.7-1.2) mg/dl Est GFR ( Amer) Est GFR (Non-Af Amer) Random Glucose (70-110) mg/dL Calcium (8.4-10.5) mg/dL Phosphorus 3.3 (2.5-4.5) mg/dL Magnesium 1.7 (1.7-2.2) mg/dL Total Bilirubin (0.2-1.3) mg/dL AST (14-36) U/L ALT (7-56) U/L Alkaline Phosphatase (38-126) U/L Total Protein (5.8-8.3) g/dL Albumin (3.0-4.8) g/dL Globulin gm/dL Albumin/Globulin Ratio (1.1-1.8) Blood Type Antibody Screen Crossmatch BBK History Checked 07/30/18 07/30/18 07/30/18 Range/Units 04:10 04:10 04:10 WBC 8.0 (4.5-11.0) 10^3/uL RBC 2.34 L (3.5-6.1) 10^6/uL Hgb 7.2 L (12.0-16.0) g/dL Hct 20.6 L* (36.0-48.0) % MCV 88.0 (80.0-105.0) fl MCH 30.8 (25.0-35.0) pg MCHC 35.0 (31.0-37.0) g/dl RDW 15.5 H (11.5-14.5) % Plt Count 64 L (120.0-450.0) 10^3/uL MPV 9.8 (7.0-11.0) fl Gran % (50.0-68.0) % Lymph % (Auto) (22.0-35.0) % [place] % (Auto) (1.0-6.0) % Eos % (Auto) (1.5-5.0) % Baso % (Auto) (0.0-3.0) % Gran # (1.4-6.5) Lymph # (Auto) (1.2-3.4) [place] # (Auto) (0.1-0.6) Eos # (Auto) (0.0-0.7) Baso # (Auto) (0.0-2.0) K/mm3 PT 22.8 H (9.4-12.5) SECONDS INR 1.97 APTT 40.6 H (25.1-36.5) Seconds Fibrinogen 130 L (200-400) mg/dl Fibrin Degrad Products (< 10 ug/mL) Sodium 139 (132-148) mmol/L Potassium 4.2 (3.6-5.0) mmol/L Chloride 110 H (98-107) mmol/L Carbon Dioxide 26 (21-33) mmol/L Anion Gap 8 L (10-20) BUN 30 H (7-21) mg/dL Creatinine 0.8 (0.7-1.2) mg/dl Est GFR ( Amer) > 60 Est GFR (Non-Af Amer) > 60 Random Glucose 101 (70-110) mg/dL Calcium 8.1 L (8.4-10.5) mg/dL Phosphorus (2.5-4.5) mg/dL Magnesium (1.7-2.2) mg/dL Total Bilirubin 5.4 H (0.2-1.3) mg/dL AST 50 H (14-36) U/L ALT 38 (7-56) U/L Alkaline Phosphatase 58 (38-126) U/L Total Protein 4.9 L (5.8-8.3) g/dL Albumin 2.1 L (3.0-4.8) g/dL Globulin 2.8 gm/dL Albumin/Globulin Ratio 0.7 L (1.1-1.8) Blood Type Antibody Screen Crossmatch BBK History Checked 07/29/18 07/29/18 07/29/18 Range/Units 23:58 21:05 17:00 WBC 8.5 8.4 D (4.5-11.0) 10^3/uL RBC 2.37 L 2.67 L (3.5-6.1) 10^6/uL Hgb 7.3 L 8.0 L D (12.0-16.0) g/dL Hct 21.0 L 23.8 L (36.0-48.0) % MCV 88.6 89.1 (80.0-105.0) fl MCH 30.8 30.0 (25.0-35.0) pg MCHC 34.8 33.6 (31.0-37.0) g/dl RDW 15.6 H 15.0 H (11.5-14.5) % Plt Count 59 L 52 L (120.0-450.0) 10^3/uL MPV 9.6 11.1 H (7.0-11.0) fl Gran % 75.2 H (50.0-68.0) % Lymph % (Auto) 16.0 L (22.0-35.0) % [place] % (Auto) 8.1 H (1.0-6.0) % Eos % (Auto) 0.5 L (1.5-5.0) % Baso % (Auto) 0.2 (0.0-3.0) % Gran # 6.29 (1.4-6.5) Lymph # (Auto) 1.3 (1.2-3.4) [place] # (Auto) 0.7 H (0.1-0.6) Eos # (Auto) 0.0 (0.0-0.7) Baso # (Auto) 0.02 (0.0-2.0) K/mm3 PT 22.8 H (9.4-12.5) SECONDS INR 1.97 APTT (25.1-36.5) Seconds Fibrinogen (200-400) mg/dl Fibrin Degrad Products (< 10 ug/mL) Sodium (132-148) mmol/L Potassium (3.6-5.0) mmol/L Chloride (98-107) mmol/L Carbon Dioxide (21-33) mmol/L Anion Gap (10-20) BUN (7-21) mg/dL Creatinine (0.7-1.2) mg/dl Est GFR ( Amer) Est GFR (Non-Af Amer) Random Glucose (70-110) mg/dL Calcium (8.4-10.5) mg/dL Phosphorus (2.5-4.5) mg/dL Magnesium (1.7-2.2) mg/dL Total Bilirubin (0.2-1.3) mg/dL AST (14-36) U/L ALT (7-56) U/L Alkaline Phosphatase (38-126) U/L Total Protein (5.8-8.3) g/dL Albumin (3.0-4.8) g/dL Globulin gm/dL Albumin/Globulin Ratio (1.1-1.8) Blood Type Antibody Screen Crossmatch BBK History Checked 07/29/18 07/29/18 Range/Units 17:00 10:30 WBC (4.5-11.0) 10^3/uL RBC (3.5-6.1) 10^6/uL Hgb (12.0-16.0) g/dL Hct (36.0-48.0) % MCV (80.0-105.0) fl MCH (25.0-35.0) pg MCHC (31.0-37.0) g/dl RDW (11.5-14.5) % Plt Count (120.0-450.0) 10^3/uL MPV (7.0-11.0) fl Gran % (50.0-68.0) % Lymph % (Auto) (22.0-35.0) % [place] % (Auto) (1.0-6.0) % Eos % (Auto) (1.5-5.0) % Baso % (Auto) (0.0-3.0) % Gran # (1.4-6.5) Lymph # (Auto) (1.2-3.4) [place] # (Auto) (0.1-0.6) Eos # (Auto) (0.0-0.7) Baso # (Auto) (0.0-2.0) K/mm3 PT 23.9 H (9.4-12.5) SECONDS INR 2.07 APTT (25.1-36.5) Seconds Fibrinogen (200-400) mg/dl Fibrin Degrad Products (< 10 ug/mL) Sodium (132-148) mmol/L Potassium (3.6-5.0) mmol/L Chloride (98-107) mmol/L Carbon Dioxide (21-33) mmol/L Anion Gap (10-20) BUN (7-21) mg/dL Creatinine (0.7-1.2) mg/dl Est GFR ( Amer) Est GFR (Non-Af Amer) Random Glucose (70-110) mg/dL Calcium (8.4-10.5) mg/dL Phosphorus (2.5-4.5) mg/dL Magnesium (1.7-2.2) mg/dL Total Bilirubin (0.2-1.3) mg/dL AST (14-36) U/L ALT (7-56) U/L Alkaline Phosphatase (38-126) U/L Total Protein (5.8-8.3) g/dL Albumin (3.0-4.8) g/dL Globulin gm/dL Albumin/Globulin Ratio (1.1-1.8) Blood Type O POSITIVE Antibody Screen Negative Crossmatch See Detail BBK History Checked Patient has bt Laboratory Results - last 24 hr 07/29/18 07/29/18 07/29/18 10:30 17:00 17:00 WBC 8.4 D RBC 2.67 L Hgb 8.0 L D Hct 23.8 L MCV 89.1 MCH 30.0 MCHC 33.6 RDW 15.0 H Plt Count 52 L MPV 11.1 H Gran % 75.2 H Lymph % (Auto) 16.0 L [place] % (Auto) 8.1 H Eos % (Auto) 0.5 L Baso % (Auto) 0.2 Gran # 6.29 Lymph # (Auto) 1.3 [place] # (Auto) 0.7 H Eos # (Auto) 0.0 Baso # (Auto) 0.02 PT 23.9 H INR 2.07 APTT Fibrinogen Fibrin Degrad Products Sodium Potassium Chloride Carbon Dioxide Anion Gap BUN Creatinine Est GFR ( Amer) Est GFR (Non-Af Amer) Random Glucose Calcium Phosphorus Magnesium Total Bilirubin AST ALT Alkaline Phosphatase Total Protein Albumin Globulin Albumin/Globulin Ratio Blood Type O POSITIVE Antibody Screen Negative Crossmatch See Detail BBK History Checked Patient has bt 07/29/18 07/29/18 07/30/18 21:05 23:58 04:10 WBC 8.5 RBC 2.37 L Hgb 7.3 L Hct 21.0 L MCV 88.6 MCH 30.8 MCHC 34.8 RDW 15.6 H Plt Count 59 L MPV 9.6 Gran % Lymph % (Auto) [place] % (Auto) Eos % (Auto) Baso % (Auto) Gran # Lymph # (Auto) [place] # (Auto) Eos # (Auto) Baso # (Auto) PT 22.8 H INR 1.97 APTT Fibrinogen Fibrin Degrad Products Sodium 139 Potassium 4.2 Chloride 110 H Carbon Dioxide 26 Anion Gap 8 L BUN 30 H Creatinine 0.8 Est GFR ( Amer) > 60 Est GFR (Non-Af Amer) > 60 Random Glucose 101 Calcium 8.1 L Phosphorus Magnesium Total Bilirubin 5.4 H AST 50 H ALT 38 Alkaline Phosphatase 58 Total Protein 4.9 L Albumin 2.1 L Globulin 2.8 Albumin/Globulin Ratio 0.7 L Blood Type Antibody Screen Crossmatch BBK History Checked 07/30/18 07/30/18 07/30/18 04:10 04:10 05:00 WBC 8.0 RBC 2.34 L Hgb 7.2 L Hct 20.6 L* MCV 88.0 MCH 30.8 MCHC 35.0 RDW 15.5 H Plt Count 64 L MPV 9.8 Gran % Lymph % (Auto) [place] % (Auto) Eos % (Auto) Baso % (Auto) Gran # Lymph # (Auto) [place] # (Auto) Eos # (Auto) Baso # (Auto) PT 22.8 H INR 1.97 APTT 40.6 H Fibrinogen 130 L Fibrin Degrad Products >10 <40 ug/ml Sodium Potassium Chloride Carbon Dioxide Anion Gap BUN Creatinine Est GFR ( Amer) Est GFR (Non-Af Amer) Random Glucose Calcium Phosphorus Magnesium Total Bilirubin AST ALT Alkaline Phosphatase Total Protein Albumin Globulin Albumin/Globulin Ratio Blood Type Antibody Screen Crossmatch BBK History Checked 07/30/18 07/30/18 08:23 08:40 WBC 6.5 RBC 2.02 L Hgb 6.1 L* Hct 18.1 L* MCV 89.6 MCH 30.2 MCHC 33.7 RDW 15.7 H Plt Count 46 L* MPV 9.5 Gran % Lymph % (Auto) [place] % (Auto) Eos % (Auto) Baso % (Auto) Gran # Lymph # (Auto) [place] # (Auto) Eos # (Auto) Baso # (Auto) PT INR APTT Fibrinogen Fibrin Degrad Products Sodium Potassium Chloride Carbon Dioxide Anion Gap BUN Creatinine Est GFR ( Amer) Est GFR (Non-Af Amer) Random Glucose Calcium Phosphorus 3.3 Magnesium 1.7 Total Bilirubin AST ALT Alkaline Phosphatase Total Protein Albumin Globulin Albumin/Globulin Ratio Blood Type Antibody Screen Crossmatch BBK History Checked Critical Care Progress Note - Nutrition Nutrition: Nutrition Category Date Time Status Liquid Diet [DIET] Diets 07/29/18 Dinner Ordered Addendum Addendum: 07/30/18 17:07 ICU Attending Addendum Patient seen and examined. Case reviewed on round with housestaff. 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
[2018-07-30 08:47] LABS: MEAN CELL VOLUME 89.6 fl (80.0-105.0); MEAN CORPUSCULAR HEMOGLOBIN 30.2 pg (25.0-35.0); MEAN CORPUSCULAR HGB CONC 33.7 g/dl (31.0-37.0); MEAN PLATELET VOLUME 9.5 fl (7.0-11.0); RBC 2.02 10^6/uL (3.5-6.1); RED CELL DISTRIBUTION WIDTH 15.7 % (11.5-14.5); WHITE BLOOD COUNT 6.5 10^3/uL (4.5-11.0)
[2018-07-30 09:24] LABS: HEMOGLOBIN 6.1 g/dL (12.0-16.0)
[2018-07-30 09:25] LABS: PLATELET COUNT 46 10^3/uL (120.0-450.0)
[2018-07-30] MEDS ORDERED: Ciprofloxacin 400mg/200ml D5W 400 MG/200 ML BAG IVPB SCH (10:00)
--- NOTE | 2018-07-30 10:56 | CP.PCM.PN ---
<JennychinkayBrunoflor - Last Filed: 07/30/18 11:11> Subjective - Date & Time of Evaluation Date of Evaluation: 07/30/18 Time of Evaluation: 10:05 - Subjective Subjective: PGY-4 GI Fellow Prog Note Pt lying in bed when seen this AM. No events reported overnight, including no bleeding reported. No BMs, denied abd pain. Still on some pressor support. 5 point ROS negative other than stated above Objective - Vital Signs/Intake and Output Vital Signs (last 24 hours): Temp Pulse Resp BP Pulse Ox 99 F 105 H 52 H 105/52 L 94 L 07/30/18 10:48 07/30/18 10:44 07/30/18 10:44 07/30/18 10:45 07/30/18 10:44 Intake and Output: 07/30/18 07/30/18 06:59 18:59 Intake Total 4569 0 Output Total 1000 Balance 3569 0 - Medications Medications: Current Medications Acetaminophen (Tylenol 325mg Tab) 650 mg PO Q6H PRN PRN Reason: Headache Guaifenesin/Dextromethorphan (Robitussin Dm) 5 ml PO Q4H PRN PRN Reason: Cough Octreotide Acetate 1,250 mcg/ (Sodium Chloride) 252.5 mls @ 10.1 mls/hr IV .Q24H [facility]; Protocol Last Admin: 07/29/18 12:45 Dose: 50 mcg/hr, 10.1 mls/hr NOREPINEPHRINE BIT/0.9 % NACL (Levophed 4 Mg/ 250 Ml Ns Premixed) 4 mg in 250 mls @ 11.25 mls/hr IV .[id number] PRN; Protocol PRN Reason: TITRATE PER MD ORDER Last Admin: 07/29/18 15:52 Dose: 3 mcg/min, 11.25 mls/hr Levetiracetam (Keppra) 1,000 mg PO Q12 [facility] Last Admin: 07/30/18 09:35 Dose: 1,000 mg Metoprolol Succinate (Toprol Xl) 25 mg PO DAILY [facility] Last Admin: 07/29/18 12:41 Dose: Not Given Pantoprazole Sodium (Protonix Inj) 20 mg IVP DAILY [facility]EV[facility] Last Admin: 07/30/18 09:35 Dose: 20 mg - Labs Labs: 07/30/18 08:40 07/30/18 04:10 PT 22.8 SECONDS (9.4-12.5) H 07/30/18 04:10 INR 1.97 07/30/18 04:10 APTT 40.6 Seconds (25.1-36.5) H 07/30/18 04:10 - Constitutional Appears: No Acute Distress, Chronically Ill - Head Exam Head Exam: ATRAUMATIC, NORMAL INSPECTION - Eye Exam Eye Exam: EOMI, Scleral icterus - ENT Exam ENT Exam: Mucous Membranes Dry. absent: Mucous Membranes Moist - Respiratory Exam Respiratory Exam: NORMAL BREATHING PATTERN. absent: Accessory Muscle Use, Respiratory Distress - GI/Abdominal Exam GI & Abdominal Exam: Distended (mild), Soft, Normal Bowel Sounds. absent: Bruit, Firm, Guarding, Rigid, Tenderness, Mass, Pulsatile Mass, Rebound Additional comments: + flank fullness Assessment and Plan - Assessment and Plan (Free Text) Assessment: 63 y/o female with alcoholic cirrhosis, PUD admitted for rectal bleeding. # Hematochezia, acute blood loss anemia: Int pain. Dark red reported. Given unstable vitals, increase BUN, and h/o cirrhosis, upper source investigated emergently on 07/29/18 with EGD without signs of active nor recent bleed. Therefore, suspect related to lower source, possibly R sided pathology given dark red. Hgb improved post 2 units PRBC, but downtrended overnight but no signs of bleeding; therefore, suspect dilutional compenent in the absence of ongoing bleeding. # Decompensated EtOH Cirrhosis: MELD-Na 24 on admission. Sober at least 3 months since CVA. 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 No biopsies taken due to coagulopathy/h emodynamic instability. 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 No signs of bleeding. Needs outpatient EUS. # H/o Colonic AVM, Diverticulosis # H/o CVA, seizure -EGD 06/2015: large esophageal varices (banded), salmon-colored mucose suspicious for martinez's esophagus -Last CSPY 06/2015: single non-bleeding colonic angiodysplastic lesion in cecum, one 7mm polyp sigmoid colon, diverticulosis in sigmoid colon, internal hemorrhoids Plan: - Cont to monitor CBC q 8 hrs until stable - Monitor CMP, INR - Cont Octreotide x 72 hrs - Cont Cipro 400 q12 for SBP ppx - PPI IV QD - Clear Liq Diet - If rebleeds, performed tagged RBC scan - Once clinically improved/stable, would benefit from CSPY - Fractionate bilirubin - Hold diuretics and BP meds due to hypotension/GIB - Will need outpatient EGD+EUS to evaluate Martinez's and possible duodenal varix Pt seen and examined with Dr. Vernon; please see attestation for further recs/changes. <Jean-Claude Vernon V - Last Filed: 07/30/18 21:50> Objective - Vital Signs/Intake and Output Vital Signs (last 24 hours): Temp Pulse Resp BP Pulse Ox 98.9 F 98 H 17 97/42 L 94 L 07/30/18 17:21 07/30/18 20:00 07/30/18 20:00 07/30/18 20:00 07/30/18 20:00 Intake and Output: 07/30/18 07/31/18 18:59 06:59 Intake Total 2375.5 Output Total 375 Balance 2000.5 - Medications Medications: Current Medications Acetaminophen (Tylenol 325mg Tab) 650 mg PO Q6H PRN PRN Reason: Headache Last Admin: 07/30/18 14:32 Dose: 650 mg Guaifenesin/Dextromethorphan (Robitussin Dm) 5 ml PO Q4H PRN PRN Reason: Cough Octreotide Acetate 1,250 mcg/ (Sodium Chloride) 252.5 mls @ 10.1 mls/hr IV .Q24H [facility]; Protocol Last Admin: 07/30/18 14:10 Dose: 50 mcg/hr, 10.1 mls/hr NOREPINEPHRINE BIT/0.9 % NACL (Levophed 4 Mg/ 250 Ml Ns Premixed) 4 mg in 250 mls @ 11.25 mls/hr IV .[id number] PRN; Protocol PRN Reason: TITRATE PER MD ORDER Last Titration: 07/30/18 10:15 Dose: 0 mcg/min, 0 mls/hr Meropenem (Merrem Iv 1 Gm Premix) 1 gm in 50 mls @ 100 mls/hr IVPB Q8 [facility]; Protocol Stop: 08/08/18 11:17 Last Admin: 07/30/18 21:02 Dose: 100 mls/hr Levetiracetam (Keppra) 1,000 mg PO Q12 [facility] Last Admin: 07/30/18 21:01 Dose: 1,000 mg Metoprolol Succinate (Toprol Xl) 25 mg PO DAILY [facility] Last Admin: 07/29/18 12:41 Dose: Not Given Pantoprazole Sodium (Protonix Inj) 20 mg IVP DAILY [facility] Last Admin: 07/30/18 09:35 Dose: 20 mg - Labs Labs: 07/30/18 18:45 07/30/18 04:10 PT 25.2 SECONDS (9.4-12.5) H 07/30/18 18:45 INR 2.18 07/30/18 18:45 APTT 39.7 Seconds (25.1-36.5) H 07/30/18 18:45 Attending/Attestation - Attestation I have personally seen and examined this patient.: Yes I have fully participated in the care of the patient.: Yes I have reviewed all pertinent clinical information, including history, physical exam and plan: Yes Notes (Text): This is an addendum to GI progress report dictated by the GI Fellow. The patient was seen and examined earlier. Medical records, lab studies, imagings were reviewed. Last 24 hours events reviewed. Agreed with the above treatment plan as outlined in GI Fellow 's notes with the addition of the following There is slight drop in blood count Obvious bleeding per rectum or melena Probably secondary to hydration Relate to stable hemoglobin could be due to blood product transfusions Patient was on vasopressors at the time of examination Patient need to be more optimized before preparing for any colonoscopy evaluation if needed If any recurrence of bleeding, would recommend bleeding scan Timing of colonoscopy will be based on patients clinical course 07/30/18 21:18
[2018-07-30] MEDS: Meropenem IV 1 gm in NS 1 GM/50 ML BAG IVPB SCH ×2 (14:15→21:02)
[2018-07-30 18:51] LABS: BASO # 0.03 K/mm3 (0.0-2.0); BASO % 0.5 % (0.0-3.0); EOS # 0.1 (0.0-0.7); EOS % 1.8 % (1.5-5.0); GRAN # 4.65 (1.4-6.5); GRAN % 69.9 % (50.0-68.0); HEMOGLOBIN 7.7 g/dL (12.0-16.0); LYMPH # 1.2 (1.2-3.4); LYMPH % 18.5 % (22.0-35.0); MEAN CORPUSCULAR HEMOGLOBIN 30.8 pg (25.0-35.0); MEAN PLATELET VOLUME 10.6 fl (7.0-11.0); MONO # 0.6 (0.1-0.6); MONO % 9.3 % (1.0-6.0); RED CELL DISTRIBUTION WIDTH 14.5 % (11.5-14.5); WHITE BLOOD COUNT 6.7 10^3/uL (4.5-11.0)
[2018-07-30 19:06] LABS: PLATELET COUNT 41 10^3/uL (120.0-450.0)
[2018-07-30 19:07] LABS: INR 2.18; PARTIAL THROMBOPLASTIN TIME 39.7 Seconds (25.1-36.5); PROTHROMBIN TIME 25.2 SECONDS (9.4-12.5)
--- NOTE | 2018-07-30 19:42 | CON ---
DATE: 07/30/2018 LOCATION: The patient is seen in the ICU. CHIEF COMPLAINT: Weakness times several days. HISTORY OF PRESENT ILLNESS: This is a 63-year-old female with history of alcoholic liver disease, esophageal varices, cirrhosis, peptic ulcer disease, erosive esophagitis, osteoarthritis, cerebrovascular accident; who was admitted and found to have gastrointestinal bleeding. REVIEW OF SYSTEMS: Reveals the patient is weak, short of breath, and the patient is having abdominal pain on and off, but not at this time. Review of system reveals a 12-point review of systems is performed. PAST MEDICAL HISTORY: Significant for esophageal varices, alcoholic liver cirrhosis, peptic ulcer disease, erosive esophagitis, osteoarthritis, cerebrovascular accident, spinal stenosis, tobacco use, sleep apnea, and anemia. PAST SURGICAL HISTORY: Significant for spinal stenosis surgery, right hip surgery, and left knee surgery. ALLERGIES: THE PATIENT IS ALLERGIC TO PENICILLIN, THE TYPE OF ALLERGY IS NOT CLEAR AND POSSIBLY A RASH. MEDICATIONS AT HOME: Include tramadol, Lasix, omeprazole, Keppra, and Toprol. PHYSICAL EXAMINATION: GENERAL: On exam, the patient is in bed, appearing much older than stated age. VITAL SIGNS: Temperature of 99, heart rate of 104, respiratory rate of 18, blood pressure is 105/52. HEENT: Examination of HEENT is unremarkable. NECK: Supple. LUNGS: Have decreased breath sounds. HEART: Normal S1, S2. ABDOMEN: Soft, mild tenderness. No rebound or guarding. LABORATORY DATA: Laboratory examination reveals a white count of 10,000, hemoglobin of 5, and platelets of 78. Coagulation is noted. Chemistries are noted. The patient had a CT of the abdomen GI bleed. ASSESSMENT AND PLAN: This is a 63-year-old with systemic inflammatory response syndrome with acute gastrointestinal bleed where the patient has esophageal varices, liver cirrhosis, alcoholic liver disease, and WAS ALLERGIC TO PENICILLIN, and erosive esophagitis. We will treat the patient with meropenem. We will also order blood cultures, urine cultures, and MRSA screen. The patient has had an HIV test in the past, which is negative, and we will follow with you. Yunior Jasso MD
[2018-07-30 22:40] LABS: HEMOGLOBIN 7.5 g/dL (12.0-16.0); RBC 2.37 10^6/uL (3.5-6.1); WHITE BLOOD COUNT 6.7 10^3/uL (4.5-11.0)
[2018-07-30 22:41] LABS: MEAN CELL VOLUME 88.6 fl (80.0-105.0); MEAN CORPUSCULAR HEMOGLOBIN 31.6 pg (25.0-35.0); MEAN CORPUSCULAR HGB CONC 35.7 g/dl (31.0-37.0); MEAN PLATELET VOLUME 10.2 fl (7.0-11.0); RED CELL DISTRIBUTION WIDTH 14.9 % (11.5-14.5)
[2018-07-30 22:42] LABS: BASO # 0.04 K/mm3 (0.0-2.0); BASO % 0.6 % (0.0-3.0); EOS # 0.1 (0.0-0.7); EOS % 1.6 % (1.5-5.0); GRAN # 4.59 (1.4-6.5); GRAN % 68.1 % (50.0-68.0); LYMPH # 1.3 (1.2-3.4); MONO # 0.7 (0.1-0.6); MONO % 10.7 % (1.0-6.0)
[2018-07-30 22:45] LABS: PLATELET COUNT 39 10^3/uL (120.0-450.0)
[2018-07-31 01:30] LABS: BASO # 0.02 K/mm3 (0.0-2.0); BASO % 0.3 % (0.0-3.0); EOS # 0.2 (0.0-0.7); EOS % 2.6 % (1.5-5.0); GRAN # 4.04 (1.4-6.5); GRAN % 62.5 % (50.0-68.0); HEMOGLOBIN 7.3 g/dL (12.0-16.0); LYMPH # 1.4 (1.2-3.4); LYMPH % 22.1 % (22.0-35.0); MEAN CELL VOLUME 88.1 fl (80.0-105.0); MEAN CORPUSCULAR HEMOGLOBIN 30.9 pg (25.0-35.0); MEAN CORPUSCULAR HGB CONC 35.1 g/dl (31.0-37.0); MEAN PLATELET VOLUME 10.3 fl (7.0-11.0); MONO # 0.8 (0.1-0.6); MONO % 12.5 % (1.0-6.0); RBC 2.36 10^6/uL (3.5-6.1); WHITE BLOOD COUNT 6.5 10^3/uL (4.5-11.0)
[2018-07-31 01:46] LABS: PLATELET COUNT 43 10^3/uL (120.0-450.0)
--- NOTE | 2018-07-31 02:53 | PN ---
DATE: 07/30/2018 SUBJECTIVE: The patient was seen this morning in the intensive care, coronary care bed 3. She is resting comfortably in bed. No additional units of blood have been transfused today. I spoke with the patient, she denies a history of prior GI bleeds, was never told of diverticula, angiodysplasia or AVM. She understands her condition and need for transfusion. PHYSICAL EXAMINATION: GENERAL: She is awake, alert, and clear, answer and respond appropriately. Mental status is at baseline. LUNGS: Show good aeration, right and left. HEART: Regular, not tachycardic. ABDOMEN: Soft. EXTREMITIES: Show no edema. PLAN: Continue transfusion today. Follow serial H and H. GI workup for source of bleeding. Abilio Bass MD
--- NOTE | 2018-07-31 03:02 | PN ---
DATE: 07/30/2018 LOCATION: The patient is in CCU, bed 3. SUBJECTIVE: The patient is seen and evaluated at the bedside. No acute events reported overnight. Tolerated upper endoscopy after being given epi and blood along with plasma. Complaints of headache this morning with evidence of nonproductive cough. Denies any shortness of breath, chest pain, abdominal pain, hemoptysis or melena. Fatigue has improved. PHYSICAL EXAMINATION: VITAL SIGNS: Objectively, vital signs are stable. Blood pressure is 105/51, respirations 36 per minute, pulse is 90 per minute, and pulse ox is 95%. HEENT: Head is normocephalic and atraumatic. Conjunctivae pale. Sclerae anicteric. Pupils are equally reactive to light and accommodation. Examination of the oropharynx reveals no oropharyngeal lesions. NECK: Supple. There is adenopathy. LUNGS: Reveal to be clear to percussion and auscultation. HEART: Reveals PMI to be in the fifth intercostal space, inside the midclavicular line. S1 and S2 are normal. No gallop or murmur is heard. ABDOMEN: Soft. The patient had tenderness in the right lower quadrant. No rebound, rigidity, or guarding is noted. RECTAL: Hemoccult positive. The patient has external hemorrhoids and internal hemorrhoids. BACK: Normal for inspection and palpation. EXTREMITIES: Both upper and lower extremities reveals no cyanosis, clubbing or edema. NEUROLOGIC: Reveals higher functions to be normal. No focal deficits are noted. SKIN: Skin turgor is normal. No skin lesions are noted. PSYCHIATRIC: The patient is awake, alert, and oriented, has a has normal affect and concentration. MEDICATIONS: Reviewed. The patient is on octreotide infusion at this time along with Levophed to titrate her blood pressure. The patient is on Keppra 1000 mg every 12 hours. She is on Metoprolol 25 mg p.o. daily and Protonix 20 mg IV daily. LABORATORY DATA: Reveals a white count of 8, hemoglobin 7.2, hematocrit 26, platelet count is 64,000. INR is 1.97 with PT of 22.4, PTT of 40.6, fibrinogen of 130. ASSESSMENT, NOTES, AND PLAN: The patient has coagulopathy related to her underlying liver dysfunction and bleeding from the stomach, unclear what the site of bleeding could be at this time. The patient does have history of alcoholic cirrhosis with esophageal varices that was banded in 2014, sequestration thrombocytopenia, spinal stenosis, arthritis, degenerative joint disease, left posterior parietal occipital cerebrovascular accident on 03/22/2018 with mild right-sided residual weakness, seizure, peptic ulcer disease, osteoporosis, presented with dizziness and blood in the urine with dark blood stool or maroon-colored stools. The patient is status post IV infusion of normal saline, two units of packed cells, one unit of fresh frozen plasma and one unit of cryoprecipitate. PLAN: The patient is going to get two more units of blood today and a unit of cryoprecipitate, and we will watch the counts carefully. Thrombocytopenia is also being monitored, and we will make appropriate recommendations depending on the platelet count. We will follow the patient with you as she is currently critically ill. We will continue with GI and DVT prophylaxis as well. Please make a note, this is a complex patient with multiple comorbid medical issues. Bijal Medellin MD
[2018-07-31 05:49] LABS: BASO # 0.03 K/mm3 (0.0-2.0); BASO % 0.4 % (0.0-3.0); EOS # 0.1 (0.0-0.7); EOS % 1.7 % (1.5-5.0); GRAN # 5.72 (1.4-6.5); GRAN % 68.9 % (50.0-68.0); HEMOGLOBIN 7.7 g/dL (12.0-16.0); LYMPH # 1.7 (1.2-3.4); LYMPH % 20.4 % (22.0-35.0); MEAN CELL VOLUME 88.3 fl (80.0-105.0); MEAN CORPUSCULAR HEMOGLOBIN 31.2 pg (25.0-35.0); MEAN CORPUSCULAR HGB CONC 35.3 g/dl (31.0-37.0); MEAN PLATELET VOLUME 10.2 fl (7.0-11.0); MONO # 0.7 (0.1-0.6); MONO % 8.6 % (1.0-6.0); RBC 2.47 10^6/uL (3.5-6.1); RED CELL DISTRIBUTION WIDTH 15.1 % (11.5-14.5); WHITE BLOOD COUNT 8.3 10^3/uL (4.5-11.0)
[2018-07-31] MEDS: Meropenem IV 1 gm in NS 1 GM/50 ML BAG IVPB SCH ×3 (06:09→22:29)
[2018-07-31 06:12] LABS: ALB/GLOB RATIO 0.7 (1.1-1.8); ALT/SGPT 40 U/L (7-56); AST/SGOT 50 U/L (14-36); BLOOD UREA NITROGEN 32 mg/dL (7-21); GFR NON-AFRICAN AMERICAN > 60
[2018-07-31 06:46] LABS: INR 2.12; PARTIAL THROMBOPLASTIN TIME 41.5 Seconds (25.1-36.5); PROTHROMBIN TIME 24.8 SECONDS (9.4-12.5)
--- NOTE | 2018-07-31 07:28 | CP.CCUPN ---
<Meuhl Campbell - Last Filed: 07/31/18 10:59> CCU Subjective - Physician Review Subjective (Free Text): Mehul Campbell PGY-1 Progress Note for ICU Patient seen and evaluated at bedside. Multiple bloody bowel movements overnight. Patient nods in response when asked if she knows her name and where she is but is unable to orally respond and follow commands. Further ROS unable to be obtained due to clinical condition. CCU Objective - Vital Signs / Intake & Output Vital Signs (Last 4 hours): Vital Signs Temp Pulse Resp BP Pulse Ox 07/31/18 06:00 113 H 21 107/67 95 07/31/18 05:54 112 H 21 107/60 95 07/31/18 05:52 99 F 07/31/18 05:00 116 H 22 119/62 93 L 07/31/18 04:00 110 H 19 102/57 L 93 L 07/31/18 03:57 120 H 21 07/31/18 03:05 103 H Intake and Output (Last 8hrs): Intake & Output 07/30/18 07/31/18 07/31/18 22:59 06:59 14:59 Intake Total 1745 470 Output Total 375 900 Balance 1370 -430 Weight 63.503 kg Intake: IV 120 120 Right Internal Jugular 120 120 Oral 500 350 Blood Product 1075 Red Blood Cells Cpd As1 325 Lr Unit [id number] Other 50 Red Blood Cells Cpd As1 50 Lr Unit [id number] Output: Urine 375 400 Urethral (Donahue) 375 400 Stool 500 Other: # Voids Urine, Voided 0 - Physical Exam Head: Positive for: Atraumatic, Normocephalic Pupils: Positive for: PERRL, Sluggish Conjunctiva: Positive for: Icteric Mouth: Positive for: Moist Mucous Membranes, Dry. Negative for: Normal Teeth (poor dentition) Neck: Positive for: Normal Range of Motion Respiratory/Chest: Positive for: Clear to Auscultation, Good Air Exchange. Negative for: Respiratory Distress, Accessory Muscle Use Cardiovascular: Positive for: Normal S1, S2, Tachycardic. Negative for: Murmurs Abdomen: Positive for: Tenderness (slight tenderness to the right lower quadrant). Negative for: Distention, Peritoneal Signs Rectal: Positive for: Occult Blood (heme occult positive), Gross Blood, Hemorrhoids (external nonthrombosed hemmrhoids) Back: Positive for: Normal Inspection Upper Extremity: Positive for: Normal Inspection. Negative for: Cyanosis, Edema Lower Extremity: Positive for: Normal Inspection. Negative for: Edema Neurological: Positive for: Speech Normal. Negative for: GCS=15, CN II-XII Intact Skin: Positive for: Warm, Dry, Pale. Negative for: Rashes, Normal Color Psychiatric: Positive for: Alert. Negative for: Oriented x 3, Normal Insight, Normal Concentration - Medications Active Medications: Active Medications Generic Name Dose Route Start Last Admin Trade Name Freq PRN Reason Stop Dose Admin Acetaminophen 650 mg 07/30/18 09:02 07/30/18 14:32 Tylenol 325mg Tab PO 650 mg Q6H PRN Administration Headache Guaifenesin/Dextromethorphan 5 ml 07/30/18 09:04 Robitussin Dm PO Q4H PRN Cough Octreotide Acetate 1,250 mcg/ 252.5 mls @ 10.1 mls/hr 07/29/18 11:00 07/30/18 14:10 Sodium Chloride IV 50 mcg/hr .Q24H STEVEN 10.1 mls/hr Administration Protocol 50 MCG/HR NOREPINEPHRINE BIT/0.9 % NACL 4 mg in 250 mls @ 11.25 mls/hr 07/29/18 14:05 07/30/18 10:15 Levophed 4 Mg/ 250 Ml Ns Premixed IV 0 mcg/min .[id number] PRN 0 mls/hr TITRATE PER MD ORDER Titration Protocol 3 MCG/MIN Meropenem 1 gm in 50 mls @ 100 mls/hr 07/30/18 11:16 07/31/18 06:09 Merrem Iv 1 Gm Premix IVPB 08/08/18 11:17 100 mls/hr Q8 STEVEN Administration Protocol Levetiracetam 1,000 mg 07/29/18 11:00 07/30/18 21:01 Keppra PO 1,000 mg Q12 STEVEN Administration Metoprolol Succinate 25 mg 07/29/18 11:00 07/29/18 12:41 Toprol Xl PO Not Given DAILY STEVEN Pantoprazole Sodium 20 mg 07/30/18 10:00 07/30/18 09:35 Protonix Inj IVP 20 mg DAILY STEVEN Administration - Patient Studies Lab Studies: Microbiology Studies 07/29/18 10:20 MRSA Culture (Admit) - Final Naris MRSA NOT DETECTED Lab Studies 07/31/18 07/31/18 07/31/18 Range/Units 05:30 05:30 05:00 WBC 8.3 D (4.5-11.0) 10^3/uL RBC 2.47 L (3.5-6.1) 10^6/uL Hgb 7.7 L (12.0-16.0) g/dL Hct 21.8 L (36.0-48.0) % MCV 88.3 (80.0-105.0) fl MCH 31.2 (25.0-35.0) pg MCHC 35.3 (31.0-37.0) g/dl RDW 15.1 H (11.5-14.5) % Plt Count 56 L (120.0-450.0) 10^3/uL MPV 10.2 (7.0-11.0) fl Gran % 68.9 H (50.0-68.0) % Lymph % (Auto) 20.4 L (22.0-35.0) % Lea % (Auto) 8.6 H (1.0-6.0) % Eos % (Auto) 1.7 (1.5-5.0) % Baso % (Auto) 0.4 (0.0-3.0) % Gran # 5.72 (1.4-6.5) Lymph # (Auto) 1.7 (1.2-3.4) Lea # (Auto) 0.7 H (0.1-0.6) Eos # (Auto) 0.1 (0.0-0.7) Baso # (Auto) 0.03 (0.0-2.0) K/mm3 PT 24.8 H (9.4-12.5) SECONDS INR 2.12 APTT 41.5 H (25.1-36.5) Seconds Sodium 138 (132-148) mmol/L Potassium 3.7 (3.6-5.0) mmol/L Chloride 111 H (98-107) mmol/L Carbon Dioxide 24 (21-33) mmol/L Anion Gap 6 L (10-20) BUN 32 H (7-21) mg/dL Creatinine 0.7 (0.7-1.2) mg/dl Est GFR ( Amer) > 60 Est GFR (Non-Af Amer) > 60 Random Glucose 106 (70-110) mg/dL Calcium 8.0 L (8.4-10.5) mg/dL Phosphorus (2.5-4.5) mg/dL Magnesium (1.7-2.2) mg/dL Total Bilirubin 4.9 H (0.2-1.3) mg/dL AST 50 H (14-36) U/L ALT 40 (7-56) U/L Alkaline Phosphatase 66 (38-126) U/L Total Protein 4.7 L (5.8-8.3) g/dL Albumin 2.0 L (3.0-4.8) g/dL Globulin 2.7 gm/dL Albumin/Globulin Ratio 0.7 L (1.1-1.8) Blood Type Antibody Screen Crossmatch BBK History Checked 07/31/18 07/30/18 07/30/18 Range/Units 01:12 21:26 18:45 WBC 6.5 6.7 6.7 (4.5-11.0) 10^3/uL RBC 2.36 L 2.37 L 2.50 L (3.5-6.1) 10^6/uL Hgb 7.3 L 7.5 L 7.7 L (12.0-16.0) g/dL Hct 20.8 L* 21.0 L 22.0 L (36.0-48.0) % MCV 88.1 88.6 88.0 (80.0-105.0) fl MCH 30.9 31.6 30.8 (25.0-35.0) pg MCHC 35.1 35.7 35.0 (31.0-37.0) g/dl RDW 15.0 H 14.9 H 14.5 (11.5-14.5) % Plt Count 43 L* 39 L* 41 L* (120.0-450.0) 10^3/uL MPV 10.3 10.2 10.6 (7.0-11.0) fl Gran % 62.5 68.1 H 69.9 H (50.0-68.0) % Lymph % (Auto) 22.1 19.0 L 18.5 L (22.0-35.0) % Lea % (Auto) 12.5 H 10.7 H 9.3 H (1.0-6.0) % Eos % (Auto) 2.6 1.6 1.8 (1.5-5.0) % Baso % (Auto) 0.3 0.6 0.5 (0.0-3.0) % Gran # 4.04 4.59 4.65 (1.4-6.5) Lymph # (Auto) 1.4 1.3 1.2 (1.2-3.4) Lea # (Auto) 0.8 H 0.7 H 0.6 (0.1-0.6) Eos # (Auto) 0.2 0.1 0.1 (0.0-0.7) Baso # (Auto) 0.02 0.04 0.03 (0.0-2.0) K/mm3 PT (9.4-12.5) SECONDS INR APTT (25.1-36.5) Seconds Sodium (132-148) mmol/L Potassium (3.6-5.0) mmol/L Chloride (98-107) mmol/L Carbon Dioxide (21-33) mmol/L Anion Gap (10-20) BUN (7-21) mg/dL Creatinine (0.7-1.2) mg/dl Est GFR ( Amer) Est GFR (Non-Af Amer) Random Glucose (70-110) mg/dL Calcium (8.4-10.5) mg/dL Phosphorus (2.5-4.5) mg/dL Magnesium (1.7-2.2) mg/dL Total Bilirubin (0.2-1.3) mg/dL AST (14-36) U/L ALT (7-56) U/L Alkaline Phosphatase (38-126) U/L Total Protein (5.8-8.3) g/dL Albumin (3.0-4.8) g/dL Globulin gm/dL Albumin/Globulin Ratio (1.1-1.8) Blood Type Antibody Screen Crossmatch BBK History Checked 07/30/18 07/30/18 07/30/18 Range/Units 18:45 08:40 08:23 WBC 6.5 (4.5-11.0) 10^3/uL RBC 2.02 L (3.5-6.1) 10^6/uL Hgb 6.1 L* (12.0-16.0) g/dL Hct 18.1 L* (36.0-48.0) % MCV 89.6 (80.0-105.0) fl MCH 30.2 (25.0-35.0) pg MCHC 33.7 (31.0-37.0) g/dl RDW 15.7 H (11.5-14.5) % Plt Count 46 L* (120.0-450.0) 10^3/uL MPV 9.5 (7.0-11.0) fl Gran % (50.0-68.0) % Lymph % (Auto) (22.0-35.0) % Lea % (Auto) (1.0-6.0) % Eos % (Auto) (1.5-5.0) % Baso % (Auto) (0.0-3.0) % Gran # (1.4-6.5) Lymph # (Auto) (1.2-3.4) Lea # (Auto) (0.1-0.6) Eos # (Auto) (0.0-0.7) Baso # (Auto) (0.0-2.0) K/mm3 PT 25.2 H (9.4-12.5) SECONDS INR 2.18 APTT 39.7 H (25.1-36.5) Seconds Sodium (132-148) mmol/L Potassium (3.6-5.0) mmol/L Chloride (98-107) mmol/L Carbon Dioxide (21-33) mmol/L Anion Gap (10-20) BUN (7-21) mg/dL Creatinine (0.7-1.2) mg/dl Est GFR ( Amer) Est GFR (Non-Af Amer) Random Glucose (70-110) mg/dL Calcium (8.4-10.5) mg/dL Phosphorus 3.3 (2.5-4.5) mg/dL Magnesium 1.7 (1.7-2.2) mg/dL Total Bilirubin (0.2-1.3) mg/dL AST (14-36) U/L ALT (7-56) U/L Alkaline Phosphatase (38-126) U/L Total Protein (5.8-8.3) g/dL Albumin (3.0-4.8) g/dL Globulin gm/dL Albumin/Globulin Ratio (1.1-1.8) Blood Type Antibody Screen Crossmatch BBK History Checked 07/29/18 Range/Units 10:30 WBC (4.5-11.0) 10^3/uL RBC (3.5-6.1) 10^6/uL Hgb (12.0-16.0) g/dL Hct (36.0-48.0) % MCV (80.0-105.0) fl MCH (25.0-35.0) pg MCHC (31.0-37.0) g/dl RDW (11.5-14.5) % Plt Count (120.0-450.0) 10^3/uL MPV (7.0-11.0) fl Gran % (50.0-68.0) % Lymph % (Auto) (22.0-35.0) % Lea % (Auto) (1.0-6.0) % Eos % (Auto) (1.5-5.0) % Baso % (Auto) (0.0-3.0) % Gran # (1.4-6.5) Lymph # (Auto) (1.2-3.4) Lea # (Auto) (0.1-0.6) Eos # (Auto) (0.0-0.7) Baso # (Auto) (0.0-2.0) K/mm3 PT (9.4-12.5) SECONDS INR APTT (25.1-36.5) Seconds Sodium (132-148) mmol/L Potassium (3.6-5.0) mmol/L Chloride (98-107) mmol/L Carbon Dioxide (21-33) mmol/L Anion Gap (10-20) BUN (7-21) mg/dL Creatinine (0.7-1.2) mg/dl Est GFR ( Amer) Est GFR (Non-Af Amer) Random Glucose (70-110) mg/dL Calcium (8.4-10.5) mg/dL Phosphorus (2.5-4.5) mg/dL Magnesium (1.7-2.2) mg/dL Total Bilirubin (0.2-1.3) mg/dL AST (14-36) U/L ALT (7-56) U/L Alkaline Phosphatase (38-126) U/L Total Protein (5.8-8.3) g/dL Albumin (3.0-4.8) g/dL Globulin gm/dL Albumin/Globulin Ratio (1.1-1.8) Blood Type O POSITIVE Antibody Screen Negative Crossmatch See Detail BBK History Checked Patient has bt Laboratory Results - last 24 hr 07/29/18 07/30/18 07/30/18 10:30 08:23 08:40 WBC 6.5 RBC 2.02 L Hgb 6.1 L* Hct 18.1 L* MCV 89.6 MCH 30.2 MCHC 33.7 RDW 15.7 H Plt Count 46 L* MPV 9.5 Gran % Lymph % (Auto) Lea % (Auto) Eos % (Auto) Baso % (Auto) Gran # Lymph # (Auto) Lea # (Auto) Eos # (Auto) Baso # (Auto) PT INR APTT Sodium Potassium Chloride Carbon Dioxide Anion Gap BUN Creatinine Est GFR ( Amer) Est GFR (Non-Af Amer) Random Glucose Calcium Phosphorus 3.3 Magnesium 1.7 Total Bilirubin AST ALT Alkaline Phosphatase Total Protein Albumin Globulin Albumin/Globulin Ratio Blood Type O POSITIVE Antibody Screen Negative Crossmatch See Detail BBK History Checked Patient has bt 07/30/18 07/30/18 07/30/18 18:45 18:45 21:26 WBC 6.7 6.7 RBC 2.50 L 2.37 L Hgb 7.7 L 7.5 L Hct 22.0 L 21.0 L MCV 88.0 88.6 MCH 30.8 31.6 MCHC 35.0 35.7 RDW 14.5 14.9 H Plt Count 41 L* 39 L* MPV 10.6 10.2 Gran % 69.9 H 68.1 H Lymph % (Auto) 18.5 L 19.0 L Lea % (Auto) 9.3 H 10.7 H Eos % (Auto) 1.8 1.6 Baso % (Auto) 0.5 0.6 Gran # 4.65 4.59 Lymph # (Auto) 1.2 1.3 Lea # (Auto) 0.6 0.7 H Eos # (Auto) 0.1 0.1 Baso # (Auto) 0.03 0.04 PT 25.2 H INR 2.18 APTT 39.7 H Sodium Potassium Chloride Carbon Dioxide Anion Gap BUN Creatinine Est GFR ( Amer) Est GFR (Non-Af Amer) Random Glucose Calcium Phosphorus Magnesium Total Bilirubin AST ALT Alkaline Phosphatase Total Protein Albumin Globulin Albumin/Globulin Ratio Blood Type Antibody Screen Crossmatch BBK History Checked 07/31/18 07/31/18 07/31/18 01:12 05:00 05:30 WBC 6.5 RBC 2.36 L Hgb 7.3 L Hct 20.8 L* MCV 88.1 MCH 30.9 MCHC 35.1 RDW 15.0 H Plt Count 43 L* MPV 10.3 Gran % 62.5 Lymph % (Auto) 22.1 Lea % (Auto) 12.5 H Eos % (Auto) 2.6 Baso % (Auto) 0.3 Gran # 4.04 Lymph # (Auto) 1.4 Lea # (Auto) 0.8 H Eos # (Auto) 0.2 Baso # (Auto) 0.02 PT 24.8 H INR 2.12 APTT 41.5 H Sodium 138 Potassium 3.7 Chloride 111 H Carbon Dioxide 24 Anion Gap 6 L BUN 32 H Creatinine 0.7 Est GFR ( Amer) > 60 Est GFR (Non-Af Amer) > 60 Random Glucose 106 Calcium 8.0 L Phosphorus Magnesium Total Bilirubin 4.9 H AST 50 H ALT 40 Alkaline Phosphatase 66 Total Protein 4.7 L Albumin 2.0 L Globulin 2.7 Albumin/Globulin Ratio 0.7 L Blood Type Antibody Screen Crossmatch BBK History Checked 07/31/18 05:30 WBC 8.3 D RBC 2.47 L Hgb 7.7 L Hct 21.8 L MCV 88.3 MCH 31.2 MCHC 35.3 RDW 15.1 H Plt Count 56 L MPV 10.2 Gran % 68.9 H Lymph % (Auto) 20.4 L Lea % (Auto) 8.6 H Eos % (Auto) 1.7 Baso % (Auto) 0.4 Gran # 5.72 Lymph # (Auto) 1.7 Lea # (Auto) 0.7 H Eos # (Auto) 0.1 Baso # (Auto) 0.03 PT INR APTT Sodium Potassium Chloride Carbon Dioxide Anion Gap BUN Creatinine Est GFR ( Amer) Est GFR (Non-Af Amer) Random Glucose Calcium Phosphorus Magnesium Total Bilirubin AST ALT Alkaline Phosphatase Total Protein Albumin Globulin Albumin/Globulin Ratio Blood Type Antibody Screen Crossmatch BBK History Checked Review of Systems - Review of Systems Systems not reviewed;Unavailable: Uncooperative Review of Systems: 12 point ROS unable to be ascertained due to clinical condition. 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 S/p 2 L NS, 2 units PRBC and 1 unit FFP, 1 cryoprecipitate. Neuro: - 07/28/[address] w/o contrast: no acute intracranial abnormality. 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 - Repeat CT head ordered due to acute change in neuro function - Keppra 1000 BID for seizure history, level pending - Ammonia level pending - AAOx0, doesn't follow commands - Monitor neuro status. - Reorient patient as necessary. Heme/Onc: Aplastic anemia - H/H improved to 8.0 s/p 4 units PRBC , 1 FFP, 2 cryoprecipitate, repeat 7.7 overnight - RBC 1.78 - CBC q6h Thrmbocytopenia - PLT count 56 - PT/INR s/p transfusions 24.8/2.12, 1 FFP to be transfused today, f/u repeat PT/INR this afternoon - Continue monitoring H/Hq4h - Hem/Onc consulted - Dr. Medellin - further recs appreciated. Sustained hypotension- improved - R-IJ Central line placed - BP stable overnight GI: Dr. Vernon consulted - further recs appreciated. Colonoscopy planned once clinically stable. Hx of EtOH Cirrhosis, Ascites, colonic AVMs, esophageal varices banded in 2015 - melenotic BMs overnight - Continue Octreotide drip 50 mcg/hr - 07/31/18 Bleeding scan ordered, f/u report - f/u ammonia level, encephalopathic likely 2/2 ETOH cirrhosis. 07/29/18 Endoscopy showed moderate portal hypertensive gastropathy. 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 Grade 1 varices. - colonoscopy planned - Cipro discontinued, continue Merrem 1 g q8 day #2 - CLD, but not currently - Protonix Cardio: - EKG done on admission shows: NSR at 95 bpm with prolonged QT interval, no ST elevations. - Trop 0.02 - Maintain MAP > 60. - Monitor for S/S, HD compromise. Pulm: - No signs of respiratory distress. CTA B/L, 93% on RA - Patient is satting well on room air. - Maintain O2 saturation >92%. - O2 NC PRN Vent: protective lung ventilation strategy, aspiration precautions - 07/28/18 CXR:vascular markings but no consolidations - Elevate bed to 30 degrees /Nephro: - BUN/Cr stable - F/U UA - Good urine output - Continue monitoring. Pseudohypocalcemia - Replete electrolytes as needed. - Maintaineuvolemia. Endocrinology: - Random glucose:92, 101 - Maintain euglycemia 140-180. ID: - ID consulted - Dr. Perez, ABx coverage and recs appreciated - Afebrile, no leukocytosis - F/u ID - Monitor for signs and symptoms of infection. DVT prophylaxis:SCDS, holding pharm prophylaxis in light of melena GI prophylaxis:Protonix 40 IVP daily Patient seen, case reviewed and plan approved by Dr. Restrepo. Mehul Campbell, PGY-1 <Mikael Restrepo - Last Filed: 07/31/18 11:27> CCU Objective - Vital Signs / Intake & Output Vital Signs (Last 4 hours): Vital Signs Temp Pulse Resp BP Pulse Ox 07/31/18 11:15 98.7 F 07/31/18 11:00 121 H 22 96 07/31/18 10:19 128 H 20 109/65 96 07/31/18 10:18 135 H 25 H 96/62 L 97 07/31/18 10:13 127 H 19 95 07/31/18 08:00 118 H 19 100/61 97 07/31/18 07:38 97.4 F L Intake and Output (Last 8hrs): Intake & Output 07/30/18 07/31/18 07/31/18 22:59 06:59 14:59 Intake Total 1745 470 Output Total 375 900 Balance 1370 -430 Weight 140 lb Intake: IV 120 120 Right Internal Jugular 120 120 Oral 500 350 Blood Product 1075 Red Blood Cells Cpd As1 325 Lr Unit [id number] Other 50 Red Blood Cells Cpd As1 50 Lr Unit [id number] Output: Urine 375 400 Urethral (Donahue) 375 400 Stool 500 Other: # Voids Urine, Voided 0 - Medications Active Medications: Active Medications Generic Name Dose Route Start Last Admin Trade Name Freq PRN Reason Stop Dose Admin Acetaminophen 650 mg 07/30/18 09:02 07/30/18 14:32 Tylenol 325mg Tab PO 650 mg Q6H PRN Administration Headache Guaifenesin/Dextromethorphan 5 ml 07/30/18 09:04 Robitussin Dm PO Q4H PRN Cough Octreotide Acetate 1,250 mcg/ 252.5 mls @ 10.1 mls/hr 07/29/18 11:00 07/30/18 14:10 Sodium Chloride IV 50 mcg/hr .Q24H STEVEN 10.1 mls/hr Administration Protocol 50 MCG/HR Meropenem 1 gm in 50 mls @ 100 mls/hr 07/30/18 11:16 07/31/18 06:09 Merrem Iv 1 Gm Premix IVPB 08/08/18 11:17 100 mls/hr Q8 STEVEN Administration Protocol Sodium Chloride 1,000 mls @ 999 mls/hr 07/31/18 10:45 07/31/18 11:02 Sodium Chloride 0.9% IV 07/31/18 11:45 999 mls/hr .Q1H1M STA Administration Levetiracetam 100 mls @ 460 mls/hr 07/31/18 11:00 07/31/18 11:02 Keppra 1000mg/100ml Ns IV 460 mls/hr Q12 STEVEN Administration Metoprolol Succinate 25 mg 07/29/18 11:00 07/29/18 12:41 Toprol Xl PO Not Given DAILY STEVEN Pantoprazole Sodium 40 mg 07/31/18 10:47 Protonix Inj IVP DAILY STEVEN - Patient Studies Lab Studies: Microbiology Studies 07/30/18 12:00 Urine Culture - Final Urine Random No Growth (<1,000 CFU/ML) 07/29/18 10:20 MRSA Culture (Admit) - Final Naris MRSA NOT DETECTED Lab Studies 07/31/18 07/31/18 07/31/18 Range/Units 10:30 10:30 10:30 WBC 10.7 D (4.5-11.0) 10^3/uL RBC 2.40 L (3.5-6.1) 10^6/uL Hgb 7.4 L (12.0-16.0) g/dL Hct 21.6 L (36.0-48.0) % MCV 90.0 (80.0-105.0) fl MCH 30.8 (25.0-35.0) pg MCHC 34.3 (31.0-37.0) g/dl RDW 15.4 H (11.5-14.5) % Plt Count 71 L (120.0-450.0) 10^3/uL MPV 10.2 (7.0-11.0) fl Gran % 81.7 H (50.0-68.0) % Lymph % (Auto) 9.9 L (22.0-35.0) % Lea % (Auto) 6.5 H (1.0-6.0) % Eos % (Auto) 1.5 (1.5-5.0) % Baso % (Auto) 0.4 (0.0-3.0) % Gran # 8.71 H (1.4-6.5) Lymph # (Auto) 1.1 L (1.2-3.4) Lea # (Auto) 0.7 H (0.1-0.6) Eos # (Auto) 0.2 (0.0-0.7) Baso # (Auto) 0.04 (0.0-2.0) K/mm3 PT (9.4-12.5) SECONDS INR APTT (25.1-36.5) Seconds Sodium (132-148) mmol/L Potassium (3.6-5.0) mmol/L Chloride (98-107) mmol/L Carbon Dioxide (21-33) mmol/L Anion Gap (10-20) BUN (7-21) mg/dL Creatinine (0.7-1.2) mg/dl Est GFR ( Amer) Est GFR (Non-Af Amer) Random Glucose (70-110) mg/dL Calcium (8.4-10.5) mg/dL Total Bilirubin (0.2-1.3) mg/dL Direct Bilirubin 2.0 H (0.0-0.4) mg/dL AST (14-36) U/L ALT (7-56) U/L Alkaline Phosphatase (38-126) U/L Ammonia 93 H (9-33) umol/L Total Protein (5.8-8.3) g/dL Albumin (3.0-4.8) g/dL Globulin gm/dL Albumin/Globulin Ratio (1.1-1.8) Blood Type Antibody Screen Crossmatch BBK History Checked 07/31/18 07/31/18 07/31/18 Range/Units 05:30 05:30 05:00 WBC 8.3 D (4.5-11.0) 10^3/uL RBC 2.47 L (3.5-6.1) 10^6/uL Hgb 7.7 L (12.0-16.0) g/dL Hct 21.8 L (36.0-48.0) % MCV 88.3 (80.0-105.0) fl MCH 31.2 (25.0-35.0) pg MCHC 35.3 (31.0-37.0) g/dl RDW 15.1 H (11.5-14.5) % Plt Count 56 L (120.0-450.0) 10^3/uL MPV 10.2 (7.0-11.0) fl Gran % 68.9 H (50.0-68.0) % Lymph % (Auto) 20.4 L (22.0-35.0) % Lea % (Auto) 8.6 H (1.0-6.0) % Eos % (Auto) 1.7 (1.5-5.0) % Baso % (Auto) 0.4 (0.0-3.0) % Gran # 5.72 (1.4-6.5) Lymph # (Auto) 1.7 (1.2-3.4) Lea # (Auto) 0.7 H (0.1-0.6) Eos # (Auto) 0.1 (0.0-0.7) Baso # (Auto) 0.03 (0.0-2.0) K/mm3 PT 24.8 H (9.4-12.5) SECONDS INR 2.12 APTT 41.5 H (25.1-36.5) Seconds Sodium 138 (132-148) mmol/L Potassium 3.7 (3.6-5.0) mmol/L Chloride 111 H (98-107) mmol/L Carbon Dioxide 24 (21-33) mmol/L Anion Gap 6 L (10-20) BUN 32 H (7-21) mg/dL Creatinine 0.7 (0.7-1.2) mg/dl Est GFR ( Amer) > 60 Est GFR (Non-Af Amer) > 60 Random Glucose 106 (70-110) mg/dL Calcium 8.0 L (8.4-10.5) mg/dL Total Bilirubin 4.9 H (0.2-1.3) mg/dL Direct Bilirubin (0.0-0.4) mg/dL AST 50 H (14-36) U/L ALT 40 (7-56) U/L Alkaline Phosphatase 66 (38-126) U/L Ammonia (9-33) umol/L Total Protein 4.7 L (5.8-8.3) g/dL Albumin 2.0 L (3.0-4.8) g/dL Globulin 2.7 gm/dL Albumin/Globulin Ratio 0.7 L (1.1-1.8) Blood Type Antibody Screen Crossmatch BBK History Checked 07/31/18 07/30/18 07/30/18 Range/Units 01:12 21:26 18:45 WBC 6.5 6.7 6.7 (4.5-11.0) 10^3/uL RBC 2.36 L 2.37 L 2.50 L (3.5-6.1) 10^6/uL Hgb 7.3 L 7.5 L 7.7 L (12.0-16.0) g/dL Hct 20.8 L* 21.0 L 22.0 L (36.0-48.0) % MCV 88.1 88.6 88.0 (80.0-105.0) fl MCH 30.9 31.6 30.8 (25.0-35.0) pg MCHC 35.1 35.7 35.0 (31.0-37.0) g/dl RDW 15.0 H 14.9 H 14.5 (11.5-14.5) % Plt Count 43 L* 39 L* 41 L* (120.0-450.0) 10^3/uL MPV 10.3 10.2 10.6 (7.0-11.0) fl Gran % 62.5 68.1 H 69.9 H (50.0-68.0) % Lymph % (Auto) 22.1 19.0 L 18.5 L (22.0-35.0) % Lea % (Auto) 12.5 H 10.7 H 9.3 H (1.0-6.0) % Eos % (Auto) 2.6 1.6 1.8 (1.5-5.0) % Baso % (Auto) 0.3 0.6 0.5 (0.0-3.0) % Gran # 4.04 4.59 4.65 (1.4-6.5) Lymph # (Auto) 1.4 1.3 1.2 (1.2-3.4) Lea # (Auto) 0.8 H 0.7 H 0.6 (0.1-0.6) Eos # (Auto) 0.2 0.1 0.1 (0.0-0.7) Baso # (Auto) 0.02 0.04 0.03 (0.0-2.0) K/mm3 PT (9.4-12.5) SECONDS INR APTT (25.1-36.5) Seconds Sodium (132-148) mmol/L Potassium (3.6-5.0) mmol/L Chloride (98-107) mmol/L Carbon Dioxide (21-33) mmol/L Anion Gap (10-20) BUN (7-21) mg/dL Creatinine (0.7-1.2) mg/dl Est GFR ( Amer) Est GFR (Non-Af Amer) Random Glucose (70-110) mg/dL Calcium (8.4-10.5) mg/dL Total Bilirubin (0.2-1.3) mg/dL Direct Bilirubin (0.0-0.4) mg/dL AST (14-36) U/L ALT (7-56) U/L Alkaline Phosphatase (38-126) U/L Ammonia (9-33) umol/L Total Protein (5.8-8.3) g/dL Albumin (3.0-4.8) g/dL Globulin gm/dL Albumin/Globulin Ratio (1.1-1.8) Blood Type Antibody Screen Crossmatch BBK History Checked 07/30/18 07/29/18 Range/Units 18:45 10:30 WBC (4.5-11.0) 10^3/uL RBC (3.5-6.1) 10^6/uL Hgb (12.0-16.0) g/dL Hct (36.0-48.0) % MCV (80.0-105.0) fl MCH (25.0-35.0) pg MCHC (31.0-37.0) g/dl RDW (11.5-14.5) % Plt Count (120.0-450.0) 10^3/uL MPV (7.0-11.0) fl Gran % (50.0-68.0) % Lymph % (Auto) (22.0-35.0) % Lea % (Auto) (1.0-6.0) % Eos % (Auto) (1.5-5.0) % Baso % (Auto) (0.0-3.0) % Gran # (1.4-6.5) Lymph # (Auto) (1.2-3.4) Lea # (Auto) (0.1-0.6) Eos # (Auto) (0.0-0.7) Baso # (Auto) (0.0-2.0) K/mm3 PT 25.2 H (9.4-12.5) SECONDS INR 2.18 APTT 39.7 H (25.1-36.5) Seconds Sodium (132-148) mmol/L Potassium (3.6-5.0) mmol/L Chloride (98-107) mmol/L Carbon Dioxide (21-33) mmol/L Anion Gap (10-20) BUN (7-21) mg/dL Creatinine (0.7-1.2) mg/dl Est GFR ( Amer) Est GFR (Non-Af Amer) Random Glucose (70-110) mg/dL Calcium (8.4-10.5) mg/dL Total Bilirubin (0.2-1.3) mg/dL Direct Bilirubin (0.0-0.4) mg/dL AST (14-36) U/L ALT (7-56) U/L Alkaline Phosphatase (38-126) U/L Ammonia (9-33) umol/L Total Protein (5.8-8.3) g/dL Albumin (3.0-4.8) g/dL Globulin gm/dL Albumin/Globulin Ratio (1.1-1.8) Blood Type O POSITIVE Antibody Screen Negative Crossmatch See Detail BBK History Checked Patient has bt Laboratory Results - last 24 hr 07/29/18 07/30/18 07/30/18 10:30 18:45 18:45 WBC 6.7 RBC 2.50 L Hgb 7.7 L Hct 22.0 L MCV 88.0 MCH 30.8 MCHC 35.0 RDW 14.5 Plt Count 41 L* MPV 10.6 Gran % 69.9 H Lymph % (Auto) 18.5 L Lea % (Auto) 9.3 H Eos % (Auto) 1.8 Baso % (Auto) 0.5 Gran # 4.65 Lymph # (Auto) 1.2 Lea # (Auto) 0.6 Eos # (Auto) 0.1 Baso # (Auto) 0.03 PT 25.2 H INR 2.18 APTT 39.7 H Sodium Potassium Chloride Carbon Dioxide Anion Gap BUN Creatinine Est GFR ( Amer) Est GFR (Non-Af Amer) Random Glucose Calcium Total Bilirubin Direct Bilirubin AST ALT Alkaline Phosphatase Ammonia Total Protein Albumin Globulin Albumin/Globulin Ratio Blood Type O POSITIVE Antibody Screen Negative Crossmatch See Detail BBK History Checked Patient has bt 07/30/18 07/31/18 07/31/18 21:26 01:12 05:00 WBC 6.7 6.5 RBC 2.37 L 2.36 L Hgb 7.5 L 7.3 L Hct 21.0 L 20.8 L* MCV 88.6 88.1 MCH 31.6 30.9 MCHC 35.7 35.1 RDW 14.9 H 15.0 H Plt Count 39 L* 43 L* MPV 10.2 10.3 Gran % 68.1 H 62.5 Lymph % (Auto) 19.0 L 22.1 Lea % (Auto) 10.7 H 12.5 H Eos % (Auto) 1.6 2.6 Baso % (Auto) 0.6 0.3 Gran # 4.59 4.04 Lymph # (Auto) 1.3 1.4 Lea # (Auto) 0.7 H 0.8 H Eos # (Auto) 0.1 0.2 Baso # (Auto) 0.04 0.02 PT 24.8 H INR 2.12 APTT 41.5 H Sodium Potassium Chloride Carbon Dioxide Anion Gap BUN Creatinine Est GFR ( Amer) Est GFR (Non-Af Amer) Random Glucose Calcium Total Bilirubin Direct Bilirubin AST ALT Alkaline Phosphatase Ammonia Total Protein Albumin Globulin Albumin/Globulin Ratio Blood Type Antibody Screen Crossmatch BBK History Checked 07/31/18 07/31/18 07/31/18 05:30 05:30 10:30 WBC 8.3 D 10.7 D RBC 2.47 L 2.40 L Hgb 7.7 L 7.4 L Hct 21.8 L 21.6 L MCV 88.3 90.0 MCH 31.2 30.8 MCHC 35.3 34.3 RDW 15.1 H 15.4 H Plt Count 56 L 71 L MPV 10.2 10.2 Gran % 68.9 H 81.7 H Lymph % (Auto) 20.4 L 9.9 L [place] % (Auto) 8.6 H 6.5 H Eos % (Auto) 1.7 1.5 Baso % (Auto) 0.4 0.4 Gran # 5.72 8.71 H Lymph # (Auto) 1.7 1.1 L [place] # (Auto) 0.7 H 0.7 H Eos # (Auto) 0.1 0.2 Baso # (Auto) 0.03 0.04 PT INR APTT Sodium 138 Potassium 3.7 Chloride 111 H Carbon Dioxide 24 Anion Gap 6 L BUN 32 H Creatinine 0.7 Est GFR ( Amer) > 60 Est GFR (Non-Af Amer) > 60 Random Glucose 106 Calcium 8.0 L Total Bilirubin 4.9 H Direct Bilirubin AST 50 H ALT 40 Alkaline Phosphatase 66 Ammonia Total Protein 4.7 L Albumin 2.0 L Globulin 2.7 Albumin/Globulin Ratio 0.7 L Blood Type Antibody Screen Crossmatch BBK History Checked 07/31/18 07/31/18 10:30 10:30 WBC RBC Hgb Hct MCV MCH MCHC RDW Plt Count MPV Gran % Lymph % (Auto) [place] % (Auto) Eos % (Auto) Baso % (Auto) Gran # Lymph # (Auto) [place] # (Auto) Eos # (Auto) Baso # (Auto) PT INR APTT Sodium Potassium Chloride Carbon Dioxide Anion Gap BUN Creatinine Est GFR ( Amer) Est GFR (Non-Af Amer) Random Glucose Calcium Total Bilirubin Direct Bilirubin 2.0 H AST ALT Alkaline Phosphatase Ammonia 93 H Total Protein Albumin Globulin Albumin/Globulin Ratio Blood Type Antibody Screen Crossmatch BBK History Checked Radiology Impressions: Radiology Impressions GI Bleed Scan Nuclear Medicine 07/31/18 06:02 IMPRESSION: Active GI bleed most likely originating in the a patent flexure of the colon Head CT 07/31/18 07:38 IMPRESSION: Cystic encephalomalacia, left parietal occipital lobe. Nonspecific white matter changes. Generalized atrophy. Critical Care Progress Note - Nutrition Nutrition: Nutrition Category Date Time Status NPO Diet [DIET] Diets 07/31/18 Breakfast Ordered Attending/Attestation - Attestation I have personally seen and examined this patient.: Yes I have fully participated in the care of the patient.: Yes I have reviewed all pertinent clinical information: Yes Notes (Text): 07/31/18 11:22 The patient was seen and examined at the bedside. Patient care was discussed with resident Medical records, lab studies, and imaging were reviewed and management issues were discussed and formulated. Agree with above treatment plans as outlined in 's note with addition of the following: GI bleed \ Blood loss anemia \ Liver Cirrhosis \ Thrombocytopenia \ Coagulopathy \ Hepatic Encephalopathy -hemodynamic monitoring to maintain MAP>65 -o2 supplementation to maintain Spo2>90 Pao2>60; currently comfortable on NC -monitor airway closely -f\u Bun\Cr and U\o -GI team f\u ; s\p EGD yesterday which shows no active bleed -bleeding scan positive for possible colonic flexure bleed -consider IR and surgical eval -continue PPi IV and octreotide as per GI team -f\u serial H\H; transfuse blood products as per heme\onc team -INR 2 today; will give Vit K and FFP -NPO diet and aspiration precautions -start Lactulose when OK by GI team -monitor serial CBC and for bleed -DVT \ PUD prophylaxis CCM time 34min
--- NOTE | 2018-07-31 08:50 | CT ---
Date of service: 07/31/2018 PROCEDURE: CT HEAD WITHOUT CONTRAST. HISTORY: AMS COMPARISON: Noncontrast head CT performed 07/28/18 TECHNIQUE: Axial computed tomography images were obtained through the head/brain without intravenous contrast. Radiation dose: Total exam DLP = 756.56 mGy-cm. This CT exam was performed using one or more of the following dose reduction techniques: Automated exposure control, adjustment of the mA and/or kV according to patient size, and/or use of iterative reconstruction technique. FINDINGS: Streak artifact obscures evaluation of the skull base. HEMORRHAGE: No intracranial hemorrhage. BRAIN: Diffuse atrophy with prominence of the ventricles and sulci noted. No mass effect or edema. Dense intracranial atherosclerosis. Re-identified cystic encephalomalacia, left parietal occipital lobe. Scattered periventricular and subcortical white matter hypodensities, which are nonspecific, but often seen with chronic microvascular ischemic disease. Please note that MRI with diffusion imaging is more sensitive in the detection of acute ischemic event. VENTRICLES: No hydrocephalus. CALVARIUM: Unremarkable. PARANASAL SINUSES: Unremarkable as visualized. No significant inflammatory changes. MASTOID AIR CELLS: Unremarkable as visualized. No inflammatory changes. OTHER FINDINGS: None. IMPRESSION: Cystic encephalomalacia, left parietal occipital lobe. Nonspecific white matter changes. Generalized atrophy.
[2018-07-31] MEDS ORDERED: Lactulose 10 gm/15 ml (Rectal Use) PR ONE (10:42)
[2018-07-31] MEDS ORDERED: Sodium Chloride 0.9% 1,000 ML IV STA (10:45)
[2018-07-31 10:56] LABS: BASO # 0.04 K/mm3 (0.0-2.0); BASO % 0.4 % (0.0-3.0); EOS # 0.2 (0.0-0.7); EOS % 1.5 % (1.5-5.0); GRAN # 8.71 (1.4-6.5); GRAN % 81.7 % (50.0-68.0); HEMOGLOBIN 7.4 g/dL (12.0-16.0); LYMPH # 1.1 (1.2-3.4); LYMPH % 9.9 % (22.0-35.0); MEAN CORPUSCULAR HEMOGLOBIN 30.8 pg (25.0-35.0); MEAN CORPUSCULAR HGB CONC 34.3 g/dl (31.0-37.0); MEAN PLATELET VOLUME 10.2 fl (7.0-11.0); MONO # 0.7 (0.1-0.6); MONO % 6.5 % (1.0-6.0); RBC 2.4 10^6/uL (3.5-6.1); RED CELL DISTRIBUTION WIDTH 15.4 % (11.5-14.5); WHITE BLOOD COUNT 10.7 10^3/uL (4.5-11.0)
[2018-07-31] MEDS: levETIRAcetam 1000mg/100ml NS 100 ML IV SCH ×2 (11:02→22:30)
--- NOTE | 2018-07-31 11:14 | NM ---
Date of service: 07/31/2018 PROCEDURE: Nuclear medicine gastrointestinal bleeding scan. HISTORY: 2 bloody BM overnight; s/p EGD w/ no bleed COMPARISON: CT scan 03/27/2018 TECHNIQUE: 4ccof patient blood was withdrawn and mixed with 26.4mCi of technetium ultra tagged. Images of the abdomen and pelvis were obtained in the anterior projection at 1 min intervals over a period of 45 min. FINDINGS: There is abnormal accumulation of radionuclide in the left upper quadrant most likely originating within the hepatic flexure of the colon. There is some reflux into the transverse colon as well as extension into the descending colon. IMPRESSION: Active GI bleed most likely originating in the a patent flexure of the colon
[2018-07-31] MEDS ORDERED: Phytonadione 10 MG in Sodium Chloride 0.9% 50 ML IV ONE (11:31)
--- NOTE | 2018-07-31 12:12 | CP.PCM.CON ---
History of Present Illness - History of Present Illness History of Present Illness: Surgery Consult Note- Dr. Brown Reason for consult: GI Bleed 63F pmhx significant for ETOH liver cirrohsis, PUD, Esophageal varicies, initially presented to [facility] [place] with large amount of blood per rectum. She was moved to the ICU due to being hemodyniamcally unstable. During her stay in the ICU patient has been on and off pressors, mental status has been declining, had and EGD performed by GI which showed no active bleeding. She has been transfused 4 PRBC and 1 FFP w/o appropriate response. In addition pt had bleeding scan + for blood at the splenic flexture. PMH: alcoholic cirrhosis, esophageal varices, PUD, spinal stenosis, arthritis, DJD, left posterior parieto-occipital CVA, osteoporosis PSH: right hip replacement, banding of esophageal varicies in 2014 SocialHx: smokes half a pack per day, quit drinking a few months ago - heavy drinker prior to that, lives at home with , denies illicit drugs ALL: PCN - rash FH: non-contributory Child-Freitas:Class C MELD: 22 Review of Systems - Review of Systems All systems: reviewed and no additional remarkable complaints except - Constitutional Constitutional: As Per HPI Past Patient History - Infectious Disease Hx of Infectious Diseases: None - Tetanus Immunizations Tetanus Immunization: Unknown - Past Social History Smoking Status: Former Smoker - CARDIAC Hx Cardiac Disorders: No - PULMONARY Hx Respiratory Disorders: Yes Hx Sleep Apnea: Yes - NEUROLOGICAL Hx Neurological Disorder: Yes HX Cerebrovascular Accident: Yes (03/2018 x2) Other/Comment: Spinal Stenosis , T7-8 Paracentral disc Protusion , C5-6 Disc Bulge , 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 - INTEGUMENTARY Hx Dermatological Problems: No - MUSCULOSKELETAL/RHEUMATOLOGICAL Hx Arthritis: Yes Hx Falls: No - GASTROINTESTINAL Hx Gastrointestinal Disorders: Yes - GENITOURINARY/GYNECOLOGICAL Hx Genitourinary Disorders: No - PSYCHIATRIC Hx Psychophysiologic Disorder: No Hx Substance Use: No - SURGICAL HISTORY Hx Musculoskeletal Surgery: Yes (right hip replacement) Hx Orthopedic Surgery: Yes (left knee surgery) - ANESTHESIA Hx Anesthesia: Yes Hx Anesthesia Reactions: No Hx Malignant Hyperthermia: No Meds Allergies/Adverse Reactions: Allergies Allergy/AdvReac Type Severity Reaction Status Date / Time Penicillins Allergy RASH Verified 07/28/18 15:26 - Medications Medications: Current Medications Acetaminophen (Tylenol 325mg Tab) 650 mg PO Q6H PRN PRN Reason: Headache Last Admin: 07/30/18 14:32 Dose: 650 mg Guaifenesin/Dextromethorphan (Robitussin Dm) 5 ml PO Q4H PRN PRN Reason: Cough Octreotide Acetate 1,250 mcg/ (Sodium Chloride) 252.5 mls @ 10.1 mls/hr IV .Q24H STEVEN; Protocol Last Admin: 07/30/18 14:10 Dose: 50 mcg/hr, 10.1 mls/hr Meropenem (Merrem Iv 1 Gm Premix) 1 gm in 50 mls @ 100 mls/hr IVPB Q8 STEVEN; Protocol Stop: 08/08/18 11:17 Last Admin: 07/31/18 06:09 Dose: 100 mls/hr Levetiracetam (Keppra 1000mg/100ml Ns) 100 mls @ 460 mls/hr IV Q12 STEVEN Last Admin: 07/31/18 11:02 Dose: 460 mls/hr Metoprolol Succinate (Toprol Xl) 25 mg PO DAILY [facility] Last Admin: 07/29/18 12:41 Dose: Not Given Pantoprazole Sodium (Protonix Inj) 40 mg IVP DAILY [facility] Physical Exam - Constitutional Appears: Non-toxic, Chronically Ill - Head Exam Head Exam: ATRAUMATIC - Eye Exam Eye Exam: Scleral icterus - ENT Exam ENT Exam: Mucous Membranes Moist - Respiratory Exam Respiratory Exam: NORMAL BREATHING PATTERN. absent: Accessory Muscle Use, Respiratory Distress - Cardiovascular Exam Cardiovascular Exam: Tachycardia, REGULAR RHYTHM. absent: Bradycardia - GI/Abdominal Exam GI & Abdominal Exam: Distended, Soft. absent: Firm, Guarding, Hernia, Tenderness - Rectal Exam Additional comments: Good rectal tone Dark dilip blood active bloody BM at the time of examination - Extremities Exam Extremities exam: Negative for: calf tenderness - Neurological Exam Neurological exam: Altered - Psychiatric Exam Psychiatric exam: Agitated - Skin Skin Exam: Intact, Warm Results - Vital Signs Recent Vital Signs: Last Vital Signs Temp 98.7 F 07/31/18 11:15 Pulse 121 H 07/31/18 11:00 Resp 22 07/31/18 11:00 BP 109/65 07/31/18 10:19 Pulse Ox 96 07/31/18 11:00 - Labs Result Diagrams: 07/31/18 10:30 07/31/18 05:30 Labs: Laboratory Results - last 24 hr 07/29/18 07/30/18 07/30/18 10:30 18:45 18:45 WBC 6.7 RBC 2.50 L Hgb 7.7 L Hct 22.0 L MCV 88.0 MCH 30.8 MCHC 35.0 RDW 14.5 Plt Count 41 L* MPV 10.6 Gran % 69.9 H Lymph % (Auto) 18.5 L [place] % (Auto) 9.3 H Eos % (Auto) 1.8 Baso % (Auto) 0.5 Gran # 4.65 Lymph # (Auto) 1.2 [place] # (Auto) 0.6 Eos # (Auto) 0.1 Baso # (Auto) 0.03 PT 25.2 H INR 2.18 APTT 39.7 H Sodium Potassium Chloride Carbon Dioxide Anion Gap BUN Creatinine Est GFR ( Amer) Est GFR (Non-Af Amer) Random Glucose Calcium Total Bilirubin Direct Bilirubin AST ALT Alkaline Phosphatase Ammonia Total Protein Albumin Globulin Albumin/Globulin Ratio Blood Type O POSITIVE Antibody Screen Negative Crossmatch See Detail BBK History Checked Patient has bt 07/30/18 07/31/18 07/31/18 21:26 01:12 05:00 WBC 6.7 6.5 RBC 2.37 L 2.36 L Hgb 7.5 L 7.3 L Hct 21.0 L 20.8 L* MCV 88.6 88.1 MCH 31.6 30.9 MCHC 35.7 35.1 RDW 14.9 H 15.0 H Plt Count 39 L* 43 L* MPV 10.2 10.3 Gran % 68.1 H 62.5 Lymph % (Auto) 19.0 L 22.1 [place] % (Auto) 10.7 H 12.5 H Eos % (Auto) 1.6 2.6 Baso % (Auto) 0.6 0.3 Gran # 4.59 4.04 Lymph # (Auto) 1.3 1.4 [place] # (Auto) 0.7 H 0.8 H Eos # (Auto) 0.1 0.2 Baso # (Auto) 0.04 0.02 PT 24.8 H INR 2.12 APTT 41.5 H Sodium Potassium Chloride Carbon Dioxide Anion Gap BUN Creatinine Est GFR ( Amer) Est GFR (Non-Af Amer) Random Glucose Calcium Total Bilirubin Direct Bilirubin AST ALT Alkaline Phosphatase Ammonia Total Protein Albumin Globulin Albumin/Globulin Ratio Blood Type Antibody Screen Crossmatch BBK History Checked 07/31/18 07/31/18 07/31/18 05:30 05:30 10:30 WBC 8.3 D 10.7 D RBC 2.47 L 2.40 L Hgb 7.7 L 7.4 L Hct 21.8 L 21.6 L MCV 88.3 90.0 MCH 31.2 30.8 MCHC 35.3 34.3 RDW 15.1 H 15.4 H Plt Count 56 L 71 L MPV 10.2 10.2 Gran % 68.9 H 81.7 H Lymph % (Auto) 20.4 L 9.9 L [place] % (Auto) 8.6 H 6.5 H Eos % (Auto) 1.7 1.5 Baso % (Auto) 0.4 0.4 Gran # 5.72 8.71 H Lymph # (Auto) 1.7 1.1 L [place] # (Auto) 0.7 H 0.7 H Eos # (Auto) 0.1 0.2 Baso # (Auto) 0.03 0.04 PT INR APTT Sodium 138 Potassium 3.7 Chloride 111 H Carbon Dioxide 24 Anion Gap 6 L BUN 32 H Creatinine 0.7 Est GFR ( Amer) > 60 Est GFR (Non-Af Amer) > 60 Random Glucose 106 Calcium 8.0 L Total Bilirubin 4.9 H Direct Bilirubin AST 50 H ALT 40 Alkaline Phosphatase 66 Ammonia Total Protein 4.7 L Albumin 2.0 L Globulin 2.7 Albumin/Globulin Ratio 0.7 L Blood Type Antibody Screen Crossmatch BBK History Checked 07/31/18 07/31/18 10:30 10:30 WBC RBC Hgb Hct MCV MCH MCHC RDW Plt Count MPV Gran % Lymph % (Auto) [place] % (Auto) Eos % (Auto) Baso % (Auto) Gran # Lymph # (Auto) [place] # (Auto) Eos # (Auto) Baso # (Auto) PT INR APTT Sodium Potassium Chloride Carbon Dioxide Anion Gap BUN Creatinine Est GFR ( Amer) Est GFR (Non-Af Amer) Random Glucose Calcium Total Bilirubin Direct Bilirubin 2.0 H AST ALT Alkaline Phosphatase Ammonia 93 H Total Protein Albumin Globulin Albumin/Globulin Ratio Blood Type Antibody Screen Crossmatch BBK History Checked Assessment & Plan - Assessment and Plan (Free Text) Assessment: 63F w/ GI bleed Child-Freitas:Class C MELD: 22 Plan: - Recommend Colonoscopy - Monitor H/H - Transfuse PRN - Monitor hourly urine output - Strict I/O - hold all AC - will continue to follow - further recs per Dr. Brown surgical attending
[2018-07-31] MEDS ORDERED: Phenylephrine 10 mg/ml Inj ONE (13:42)
[2018-07-31] MEDS ORDERED: Etomidate 20 mg/10ml Inj IV ONE ×2 (13:42→15:08)
[2018-07-31] MEDS ORDERED: Propofol 10 mg/ml Inj (20 ML) ONE (13:42)
[2018-07-31] MEDS ORDERED: ePHEDrine 50 mg/ml Inj ONE (13:42)
--- NOTE | 2018-07-31 15:02 | CP.PCM.PN ---
Subjective - Date & Time of Evaluation Date of Evaluation: 07/31/18 Time of Evaluation: 14:10 - Subjective Subjective: Patient to be undergoing EGD, no fevers. Objective - Vital Signs/Intake and Output Vital Signs (last 24 hours): Temp Pulse Resp BP Pulse Ox 98.7 F 125 H 22 109/65 96 07/31/18 11:15 07/31/18 11:49 07/31/18 11:00 07/31/18 10:19 07/31/18 11:00 Intake and Output: 07/31/18 07/31/18 06:59 18:59 Intake Total 470 Output Total 900 Balance -430 - Medications Medications: Current Medications Acetaminophen (Tylenol 325mg Tab) 650 mg PO Q6H PRN PRN Reason: Headache Last Admin: 07/30/18 14:32 Dose: 650 mg Guaifenesin/Dextromethorphan (Robitussin Dm) 5 ml PO Q4H PRN PRN Reason: Cough Octreotide Acetate 1,250 mcg/ (Sodium Chloride) 252.5 mls @ 10.1 mls/hr IV .Q24H STEVEN; Protocol Last Admin: 07/30/18 14:10 Dose: 50 mcg/hr, 10.1 mls/hr Meropenem (Merrem Iv 1 Gm Premix) 1 gm in 50 mls @ 100 mls/hr IVPB Q8 STEVEN; Protocol Stop: 08/08/18 11:17 Last Admin: 07/31/18 13:38 Dose: 100 mls/hr Levetiracetam (Keppra 1000mg/100ml Ns) 100 mls @ 460 mls/hr IV Q12 STEVEN Last Admin: 07/31/18 11:02 Dose: 460 mls/hr Metoprolol Succinate (Toprol Xl) 25 mg PO DAILY STEVEN Last Admin: 07/29/18 12:41 Dose: Not Given Pantoprazole Sodium (Protonix Inj) 40 mg IVP DAILY STEVEN - Labs Labs: 07/31/18 10:30 07/31/18 05:30 PT 24.8 SECONDS (9.4-12.5) H 07/31/18 05:00 INR 2.12 07/31/18 05:00 APTT 41.5 Seconds (25.1-36.5) H 07/31/18 05:00 - Constitutional Appears: Chronically Ill - Head Exam Head Exam: NORMAL INSPECTION Assessment and Plan - Assessment and Plan (Free Text) Plan: Assessment SIRS due to acute GI bleed with esophageal varices in this patient with liver cirrhosis from alcohol abuse history of systemic inflammatory response syndrome in this patient with acute left sided intra-cranial hemorrhage S/P ventilator-dependent respiratory failure, consider UTI due to Salmonella Group C history of treatment for HCAP hyperbilirubinemia probably related to chronic liver disease / liver cirrhosis ethanol abuse liver cirrhosis with esophageal varices S/P banding in 2014 arthritis history of spinal stenosis Plan continue Merrem since we cannot rule out bleeding esophageal varices - will follow up EGD results and blood cultures will monitor clinically
[2018-07-31] MEDS ORDERED: Propofol 10 mg/ml Inj (20 ML) IVP ONE ×2 (15:08→15:31)
[2018-07-31] MEDS ORDERED: Rocuronium 10 mg/ml (5 ml) ONE (15:08)
[2018-07-31] MEDS ORDERED: Propofol 10 mg/ml 500 MG/50 ML VIAL IV PRN (15:21)
[2018-07-31] MEDS: Propofol 10 mg/ml 1,000 MG/100 ML VIAL IV PRN ×2 (15:38→22:27)
--- NOTE | 2018-07-31 15:49 | RAD ---
Date of service: 07/31/2018 HISTORY: sputum production in setting of fever COMPARISON: 07/29/2018 FINDINGS: LUNGS: Moderate vascular congestion. The endotracheal tube and nasogastric tube are in satisfactory position. PLEURA: No significant pleural effusion identified, no pneumothorax apparent. CARDIOVASCULAR: No aortic atherosclerotic calcification present. Normal cardiac size. Moderate vascular congestion OSSEOUS STRUCTURES: No significant abnormalities. VISUALIZED UPPER ABDOMEN: Normal. OTHER FINDINGS: Right IJ line in satisfactory position IMPRESSION: Moderate vascular congestion. The endotracheal tube and nasogastric tube are in satisfactory position.
--- NOTE | 2018-07-31 16:02 | CP.PCM.PN ---
Subjective - Date & Time of Evaluation Date of Evaluation: 07/31/18 Time of Evaluation: 09:00 - Subjective Subjective: PGY-4 GI Fellow Prog Note Pt lying in bed when seen this AM. Confused and mumbling. More blood BMs, Tagged RBC scan ordered. Off pressors, but tachycardic. Unable to obtain ROS due to clinical condition Objective - Vital Signs/Intake and Output Vital Signs (last 24 hours): Temp Pulse Resp BP Pulse Ox 98.6 F 135 H 17 101/54 L 99 07/31/18 14:01 07/31/18 14:01 07/31/18 15:26 07/31/18 14:01 07/31/18 15:26 Intake and Output: 07/31/18 07/31/18 06:59 18:59 Intake Total 470 Output Total 900 Balance -430 - Medications Medications: Current Medications Acetaminophen (Tylenol 325mg Tab) 650 mg PO Q6H PRN PRN Reason: Headache Last Admin: 07/30/18 14:32 Dose: 650 mg Guaifenesin/Dextromethorphan (Robitussin Dm) 5 ml PO Q4H PRN PRN Reason: Cough Octreotide Acetate 1,250 mcg/ (Sodium Chloride) 252.5 mls @ 10.1 mls/hr IV .Q24H STEVEN; Protocol Last Admin: 07/30/18 14:10 Dose: 50 mcg/hr, 10.1 mls/hr Meropenem (Merrem Iv 1 Gm Premix) 1 gm in 50 mls @ 100 mls/hr IVPB Q8 STEVEN; Protocol Stop: 08/08/18 11:17 Last Admin: 07/31/18 13:38 Dose: 100 mls/hr Levetiracetam (Keppra 1000mg/100ml Ns) 100 mls @ 460 mls/hr IV Q12 STEVEN Last Admin: 07/31/18 11:02 Dose: 460 mls/hr Propofol (Diprivan) 1,000 mg in 100 mls @ 1.905 mls/hr IV .Q24H PRN; Protocol PRN Reason: TITRATE PER MD ORDER Last Admin: 07/31/18 15:38 Dose: 5 mcg/kg/min, 1.905 mls/hr Metoprolol Succinate (Toprol Xl) 25 mg PO DAILY STEVEN Last Admin: 07/29/18 12:41 Dose: Not Given Pantoprazole Sodium (Protonix Inj) 40 mg IVP DAILY STEVEN - Labs Labs: 07/31/18 10:30 07/31/18 05:30 PT 24.8 SECONDS (9.4-12.5) H 07/31/18 05:00 INR 2.12 07/31/18 05:00 APTT 41.5 Seconds (25.1-36.5) H 07/31/18 05:00 - Constitutional Appears: In Acute Distress, Confused, Chronically Ill - Eye Exam Eye Exam: EOMI, Scleral icterus - ENT Exam ENT Exam: Mucous Membranes Dry. absent: Mucous Membranes Moist - Cardiovascular Exam Cardiovascular Exam: Tachycardia, REGULAR RHYTHM - GI/Abdominal Exam GI & Abdominal Exam: Distended (mildly), Soft, Normal Bowel Sounds. absent: Bruit, Firm, Guarding, Rigid, Mass, Pulsatile Mass Additional comments: +flank fullness Assessment and Plan - Assessment and Plan (Free Text) Assessment: 63 y/o female with alcoholic cirrhosis, PUD admitted for rectal bleeding. # Hematochezia, acute blood loss anemia: Given unstable vitals, increase BUN, and h/o cirrhosis, upper source investigated emergently on 07/29/18 with EGD without signs of active nor recent bleed. Therefore, suspect related to lower source, possibly R sided pathology given dark red. Ongoing bleeding with positive bleeding scan with bleeding since in RUQ and possible through transverse flexure. # Decompensated EtOH Cirrhosis: MELD-Na 24 on admission. Sober at least 3 months since CVA. 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 No biopsies taken due to coagulopathy/hemodynamic instability. 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 No signs of bleeding. Needs outpatient EUS. # H/o Colonic AVM, Diverticulosis # H/o CVA, seizure -EGD 06/2015: large esophageal varices (banded), salmon-colored mucose susp icious for martinez's esophagus -Last CSPY 06/2015: single non-bleeding colonic angiodysplastic lesion in cecum, one 7mm polyp sigmoid colon, diverticulosis in sigmoid colon, internal hemorrhoids Plan: - Colonoscopy today to about 110 cm with blood throughout limiting view and unable to locate specific source of bleed. Ultimately, perhaps related to diverticular as many seen but all were full of blood - Recommened IR consult, possible CTA with embolization - Gen Surgery consulted - Cont to monitor CBC q 8 hrs until stable - Monitor CMP, INR - Cont Octreotide x 72 hrs total - On Meropenem per ID, agree for bactermia in cirrhotic with GI bleed - PPI IV QD - Hold diuretics and BP meds due to hypotension/GIB - Will need outpatient EGD+EUS to evaluate Martinez's and possible duodenal varix should she improve clinically - Pt critically ill Pt seen and examined with Dr. Vernon; please see attestation for further recs/changes.
[2018-07-31] MEDS ORDERED: Morphine 2 mg/ml ISec IVP STA (16:08)
[2018-07-31] MEDS ORDERED: Morphine 2 mg/ml ISec IVP PRN (16:08)
[2018-07-31] MEDS ORDERED: Lidocaine 2% Inj (20ml) ONE (16:11)
[2018-07-31] MEDS ORDERED: Iodixanol 320 mg/ml 150 ml Bottle IV ONE (16:11)
[2018-07-31] MEDS ORDERED: Nitroglycerin 50mg in D5W 50 MG/250 ML BOTTLE IV ONE (16:11)
[2018-07-31] MEDS ORDERED: Iodixanol 320 MG/ML 200 ML BOTTLE IV ONE (16:11)
[2018-07-31 16:26] LABS: ARTERIAL BLOOD GAS HCO3 21.9 mmol/L (21-28); ARTERIAL BLOOD GAS HEMOGLOBIN 8.7 g/dL (11.7-17.4); ARTERIAL BLOOD GAS O2 SAT 99.8 % (95-98); ARTERIAL BLOOD GAS PCO2 33 mm/Hg (35-45); ARTERIAL BLOOD GAS PH 7.43 (7.35-7.45); ARTERIAL BLOOD GAS TCO2 22.9 mmol.L (22-28)
[2018-07-31] MEDS ORDERED: Iodixanol 320 MG/ML 100 ML BOTTLE IV ONE (17:11)
--- NOTE | 2018-07-31 18:29 | VASCULAR ---
Date of service: 07/31/2018 PROCEDURE: 1. SMA arteriogram. 2. Celiac arteriogram. 3. POOJA arteriogram HISTORY: Cirrhosis. Lower GI bleeding. Positive bleeding scan. Post endoscopy PHYSICIAN(S): Matt Wong M.D. TECHNIQUE: The relative risks and indications of the procedure were explained to the patient's family and consent obtained. The patient was brought emergently to the arteriography suite and placed on the arteriography table. The right groin was prepped and draped usual sterile fashion. 1 percent xylocaine was used to anesthetize skin soft tissues. Via a right common femoral artery approach, a 5 Danish sheath was placed in the right groin. Through the sheath and over a guidewire, a 5 Danish C1 catheter was placed in the proximal SMA. Two DSA SMA arteriograms were performed. The catheter was then placed selectively in the proximal celiac axis. Celiac axis arteriograms were performed. The catheter was advanced selectively into a branch leading to the hepatic flexure. Additional sub selective imaging of the celiac axis was performed. Exchange is made for a Sos 3 catheter. The catheter was placed the origin of the POOJA. Two DSA POOJA arteriograms were performed. The catheter was removed hemostasis obtained with a Perclose device. The patient tolerated the procedure well. FINDINGS: The SMA arteriogram is normal. No extravasation or site of arterial bleeding is appreciated. The SMV and portal phases are normal. The celiac axis injection demonstrates a branch extending towards the splenic flexure. No extravasation is seen though the splenic flexure appears to be hyperemic with possible early draining veins. Selective images fail to demonstrate extravasation. The POOJA is patent and normal. No extravasation is seen. IMPRESSION: 1.No active extravasation present. 2. A prominent branch off the celiac axis appears to supply a hyperemic area in the splenic flexure. No extravasation was appreciated. This area corresponds with the area of activity on the recent bleeding scan.
--- NOTE | 2018-07-31 19:40 | PN ---
DATE: 07/31/2018 This is [facility]'s [facility] visit to Intensive Care Unit. SUBJECTIVE: The patient is a 63-year-old female seen lying in the Intensive Care Unit, nonverbal with reported positive bleeding scan earlier today for procedure as per surgical team with transfusion of blood and blood products recommended as listed below. The patient has a coagulopathy related underlying liver disease with history of alcoholic cirrhosis with esophageal varices with sequestration thrombocytopenia along with history of CVA. A discussion was held with Dr. Restrepo, wood grinder operator and with gastrointestinal law firm consultant regarding further recommendations for this patient. PHYSICAL EXAMINATION: VITAL SIGNS: Temperature 98.6, pulse 135, respirations 17, blood pressure 101/54, pulse ox 99%. HEENT: Unremarkable. NECK: Supple. HEART: Tachy rate, regular rhythm. LUNGS: Clear. ABDOMEN: Soft, nontender. EXTREMITIES: No edema. SKIN: Warm and dry. NEUROLOGIC: The patient is somnolent/lethargic, nonverbal. LABORATORY DATA: The patient's labs were done. White blood cell count 10.17, hemoglobin 7.4, hematocrit [place] 21.6, [place] [address] with a metabolic panel showing a BUN of 32, creatinine of 0.7, calcium of 8.0, total bilirubin of 4.9, AST of 50, ammonia level of 93. INR of 2.1 with PTT of 41.5. It should be noted that the patient did have 4 units of blood transfused with 1 unit presently being transfused with a total 11 on order. One unit of fresh frozen plasma transfused along with cryoprecipitate also. Two units being given with the third being planned to be given as per wood grinder operator recommendations along with surgeon's recommendations/gastrointestinal Dr. Vernon. The patient had a chest x-ray done earlier today, was read as moderate vascular congestion, endotracheal tube and nasogastric tubes in satisfactory position. CAT scan of her head was done earlier today, it was read as cystic encephalomalacia, left parietal occipital lobe, nonspecific white matter changes, generalized atrophy. A GI bleed scan nuclear was done earlier today. It was read as active GI bleed, most likely originating in the patent flexure of the colon. 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 Plans to this patient is as per consultants recommendations with intervention to address the patient's positive bleeding scan with blood to be transfused along with blood products as per intensivists and gastrointestinal consultants/surgeons recommendations on an emergent basis. Prognosis for this patient is guarded. This is a complex patient with a comprehensive medically necessary and appropriate visit carried out in excess of 40 minutes with consultants and nursing staff spoken to regarding patient's care. Edward Patterson MD
--- NOTE | 2018-07-31 19:48 | CARD ---
APPROVED REPORT Date of service: 07/31/2018 EKG Measurement Heart [id number] <Conclusion> Sinus tachycardia Nonspecific ST and T wave abnormality Abnormal ECG
[2018-07-31 20:26] LABS: BASO # 0.02 K/mm3 (0.0-2.0); BASO % 0.2 % (0.0-3.0); EOS # 0.1 (0.0-0.7); EOS % 0.5 % (1.5-5.0); GRAN # 9.01 (1.4-6.5); GRAN % 88.7 % (50.0-68.0); HEMOGLOBIN 7.9 g/dL (12.0-16.0); LYMPH # 0.6 (1.2-3.4); LYMPH % 5.5 % (22.0-35.0); MEAN CELL VOLUME 89.8 fl (80.0-105.0); MEAN CORPUSCULAR HGB CONC 34.5 g/dl (31.0-37.0); MEAN PLATELET VOLUME 10.4 fl (7.0-11.0); MONO # 0.5 (0.1-0.6); MONO % 5.1 % (1.0-6.0); RBC 2.55 10^6/uL (3.5-6.1); RED CELL DISTRIBUTION WIDTH 14.8 % (11.5-14.5); WHITE BLOOD COUNT 10.2 10^3/uL (4.5-11.0)
[2018-07-31 21:15] LABS: INR 1.75; PARTIAL THROMBOPLASTIN TIME 33.5 Seconds (25.1-36.5); PROTHROMBIN TIME 20.2 SECONDS (9.4-12.5)
[2018-08-01 00:32] LABS: BASO # 0.02 K/mm3 (0.0-2.0); BASO % 0.2 % (0.0-3.0); EOS # 0.1 (0.0-0.7); GRAN # 8.01 (1.4-6.5); GRAN % 83.1 % (50.0-68.0); HEMOGLOBIN 7.4 g/dL (12.0-16.0); LYMPH # 0.8 (1.2-3.4); LYMPH % 8.4 % (22.0-35.0); MEAN CELL VOLUME 89.8 fl (80.0-105.0); MEAN CORPUSCULAR HEMOGLOBIN 31.5 pg (25.0-35.0); MEAN CORPUSCULAR HGB CONC 35.1 g/dl (31.0-37.0); MEAN PLATELET VOLUME 9.5 fl (7.0-11.0); MONO # 0.7 (0.1-0.6); MONO % 7.3 % (1.0-6.0); RBC 2.35 10^6/uL (3.5-6.1); RED CELL DISTRIBUTION WIDTH 14.9 % (11.5-14.5); WHITE BLOOD COUNT 9.6 10^3/uL (4.5-11.0)
[2018-08-01 00:50] LABS: PLATELET COUNT 46 10^3/uL (120.0-450.0)
[2018-08-01 04:44] LABS: INR 1.92; PROTHROMBIN TIME 22.2 SECONDS (9.4-12.5)
[2018-08-01 04:47] LABS: ALB/GLOB RATIO 0.8 (1.1-1.8); ALT/SGPT 39 U/L (7-56); AST/SGOT 58 U/L (14-36); BLOOD UREA NITROGEN 34 mg/dL (7-21); GFR NON-AFRICAN AMERICAN > 60
[2018-08-01 05:18] LABS: BASO # 0.03 K/mm3 (0.0-2.0); BASO % 0.3 % (0.0-3.0); EOS # 0.1 (0.0-0.7); GRAN # 7.05 (1.4-6.5); GRAN % 80.4 % (50.0-68.0); LYMPH # 0.9 (1.2-3.4); LYMPH % 10.3 % (22.0-35.0); MEAN CELL VOLUME 90.5 fl (80.0-105.0); MEAN CORPUSCULAR HEMOGLOBIN 31.2 pg (25.0-35.0); MEAN CORPUSCULAR HGB CONC 34.5 g/dl (31.0-37.0); MEAN PLATELET VOLUME 10.6 fl (7.0-11.0); MONO # 0.7 (0.1-0.6); RBC 2.21 10^6/uL (3.5-6.1); RED CELL DISTRIBUTION WIDTH 15.1 % (11.5-14.5); WHITE BLOOD COUNT 8.8 10^3/uL (4.5-11.0)
[2018-08-01 05:41] LABS: HEMOGLOBIN 6.9 g/dL (12.0-16.0)
[2018-08-01 05:42] LABS: PLATELET COUNT 46 10^3/uL (120.0-450.0)
[2018-08-01] MEDS: Meropenem IV 1 gm in NS 1 GM/50 ML BAG IVPB SCH ×3 (06:30→22:10)
[2018-08-01 06:45] LABS: ARTERIAL BLOOD GAS HCO3 22.2 mmol/L (21-28); ARTERIAL BLOOD GAS HEMOGLOBIN 7.8 g/dL (11.7-17.4); ARTERIAL BLOOD GAS O2 CAPACITY 10.8 mL/dl (16-24); ARTERIAL BLOOD GAS O2 CONTENT 10.7 ML/dl (15-23); ARTERIAL BLOOD GAS O2 SAT 99.3 % (95-98); ARTERIAL BLOOD GAS PCO2 26 mm/Hg (35-45); ARTERIAL BLOOD GAS PH 7.54 (7.35-7.45)
[2018-08-01] MEDS: Propofol 10 mg/ml 1,000 MG/100 ML VIAL IV PRN ×3 (06:53→21:35)
[2018-08-01] MEDS ORDERED: Potassium Chloride 40 mEq/30 ml LIQ UD PO STA (08:04)
--- NOTE | 2018-08-01 08:15 | CP.CCUPN ---
<Mehul Campbell - Last Filed: 08/01/18 14:32> CCU Subjective - Physician Review Subjective (Free Text): Mehul Campbell PGY-1 Progress Note for ICU Patient seen and evaluated at bedside. Two bloody bowel movements reported overnight. Patient unresponsive to verbal or painful stimuli. Further ROS unable to be obtained due to clinical condition. CCU Objective - Vital Signs / Intake & Output Vital Signs (Last 4 hours): Vital Signs Temp Pulse BP Pulse Ox 08/01/18 06:00 99.7 F H 99 H 119/67 99 08/01/18 05:30 99.9 F H 103 H 122/68 99 08/01/18 05:00 100.0 F H 104 H 133/66 98 08/01/18 04:30 100.0 F H 106 H 116/60 98 Intake and Output (Last 8hrs): Intake & Output 07/31/18 08/01/18 08/01/18 22:59 06:59 14:59 Intake Total 1444.5 100 Output Total 1810 50 Balance -365.5 50 Intake: IV 1444.5 100 Right Internal Jugular 1092 Blood Product 0 Apheresis Rbc Cp2d As3 Lr 0 2nd Unit [id number] Output: Urine 610 50 Urethral ([place]) 610 50 Stool 1200 Other: # Bowel Movements 4 - Physical Exam Head: Positive for: Atraumatic, Normocephalic Pupils: Positive for: PERRL, Sluggish Extroacular Muscles: Positive for: EOMI Conjunctiva: Positive for: Icteric Mouth: Positive for: Moist Mucous Membranes, Dry. Negative for: Normal Teeth (poor dentition) Neck: Positive for: Normal Range of Motion Respiratory/Chest: Positive for: Clear to Auscultation, Good Air Exchange. Negative for: Respiratory Distress, Accessory Muscle Use Cardiovascular: Positive for: Normal S1, S2, Tachycardic. Negative for: Murmurs Abdomen: Negative for: Tenderness (unable to be ascertained), Distention, Peritoneal Signs Rectal: Positive for: Gross Blood, Hemorrhoids (external nonthrombosed hemmorhoids) Back: Positive for: Normal Inspection Upper Extremity: Positive for: Normal Inspection. Negative for: Cyanosis, Edema Lower Extremity: Positive for: Normal Inspection, Swelling (trace pedal edema). Negative for: Edema, Mica's Sign, Tenderness Neurological: Negative for: GCS=15, CN II-XII Intact, Speech Normal Skin: Positive for: Warm, Dry, Pale. Negative for: Rashes, Normal Color Psychiatric: Positive for: Alert. Negative for: Oriented x 3, Normal Insight, Normal Concentration - Medications Active Medications: Active Medications Generic Name Dose Route Start Last Admin Trade Name Freq PRN Reason Stop Dose Admin Acetaminophen 650 mg 07/30/18 09:02 07/30/18 14:32 Tylenol 325mg Tab PO 650 mg Q6H PRN Administration Headache Guaifenesin/Dextromethorphan 5 ml 07/30/18 09:04 Robitussin Dm PO Q4H PRN Cough Octreotide Acetate 1,250 mcg/ 252.5 mls @ 10.1 mls/hr 07/29/18 11:00 07/31/18 15:30 Sodium Chloride IV 50 mcg/hr .Q24H STEVEN 10.1 mls/hr Administration Protocol 50 MCG/HR Meropenem 1 gm in 50 mls @ 100 mls/hr 07/30/18 11:16 08/01/18 06:30 Merrem Iv 1 Gm Premix IVPB 08/08/18 11:17 100 mls/hr Q8 STEVEN Administration Protocol Levetiracetam 100 mls @ 460 mls/hr 07/31/18 11:00 07/31/18 22:30 Keppra 1000mg/100ml Ns IV 460 mls/hr Q12 STEVEN Administration Propofol 1,000 mg in 100 mls @ 1.905 mls/hr 07/31/18 15:25 08/01/18 06:53 Diprivan IV 30 mcg/kg/min .Q24H PRN 11.431 mls/hr TITRATE PER MD ORDER Administration Protocol 5 MCG/KG/MIN Lactulose 20 gm 07/31/18 18:15 08/01/18 04:18 Enulose PO 20 gm Q8H STEVEN Administration Metoprolol Succinate 25 mg 07/29/18 11:00 07/29/18 12:41 Toprol Xl PO Not Given DAILY STEVEN Morphine Sulfate 2 mg 07/31/18 16:08 Morphine IVP Q3H PRN Pain, severe (8-10) Pantoprazole Sodium 40 mg 07/31/18 10:47 Protonix Inj IVP DAILY STEVEN - Patient Studies Lab Studies: Microbiology Studies 07/30/18 17:31 Blood Culture - Preliminary Blood NO GROWTH AFTER 24 HOURS 07/30/18 17:31 Blood Culture - Preliminary Blood NO GROWTH AFTER 24 HOURS 07/30/18 12:00 Urine Culture - Final Urine Random No Growth (<1,000 CFU/ML) Lab Studies 08/01/18 08/01/18 08/01/18 Range/Units 06:30 04:05 04:05 WBC 8.8 (4.5-11.0) 10^3/uL RBC 2.21 L (3.5-6.1) 10^6/uL Hgb 6.9 L* (12.0-16.0) g/dL Hct 20.0 L* (36.0-48.0) % MCV 90.5 (80.0-105.0) fl MCH 31.2 (25.0-35.0) pg MCHC 34.5 (31.0-37.0) g/dl RDW 15.1 H (11.5-14.5) % Plt Count 46 L* (120.0-450.0) 10^3/uL MPV 10.6 (7.0-11.0) fl Gran % 80.4 H (50.0-68.0) % Lymph % (Auto) 10.3 L (22.0-35.0) % [place] % (Auto) 8.0 H (1.0-6.0) % Eos % (Auto) 1.0 L (1.5-5.0) % Baso % (Auto) 0.3 (0.0-3.0) % Gran # 7.05 H (1.4-6.5) Lymph # (Auto) 0.9 L (1.2-3.4) [place] # (Auto) 0.7 H (0.1-0.6) Eos # (Auto) 0.1 (0.0-0.7) Baso # (Auto) 0.03 (0.0-2.0) K/mm3 PT 22.2 H (9.4-12.5) SECONDS INR 1.92 APTT (25.1-36.5) Seconds pCO2 26 L (35-45) mm/Hg pO2 105.0 H (80-100) mm/Hg HCO3 22.2 (21-28) mmol/L ABG pH 7.54 H (7.35-7.45) ABG Total CO2 23.0 (22-28) mmol.L ABG O2 Saturation 99.3 H (95-98) % ABG O2 Content 10.7 L (15-23) ML/dl ABG Base Excess 0.0 (-2.0-3.0) mmol/L ABG Hemoglobin 7.8 L (11.7-17.4) g/dL ABG Carboxyhemoglobin 1.9 H (0.5-1.5) % POC ABG HHb (Measured) 0.7 (0-5) % ABG Methemoglobin 1.3 (0.0-3.0) % ABG O2 Capacity 10.8 L (16-24) mL/dl Hgb O2 Saturation 96.1 (95.0-98.0) % FiO2 40.0 % Sodium (132-148) mmol/L Potassium (3.6-5.0) mmol/L Chloride (98-107) mmol/L Carbon Dioxide (21-33) mmol/L Anion Gap (10-20) BUN (7-21) mg/dL Creatinine (0.7-1.2) mg/dl Est GFR ( Amer) Est GFR (Non-Af Amer) Random Glucose (70-110) mg/dL Calcium (8.4-10.5) mg/dL Total Bilirubin (0.2-1.3) mg/dL Direct Bilirubin (0.0-0.4) mg/dL AST (14-36) U/L ALT (7-56) U/L Alkaline Phosphatase (38-126) U/L Ammonia (9-33) umol/L Total Protein (5.8-8.3) g/dL Albumin (3.0-4.8) g/dL Globulin gm/dL Albumin/Globulin Ratio (1.1-1.8) Levetiracetam mcg/mL Blood Type Antibody Screen Crossmatch BBK History Checked 08/01/18 08/01/18 07/31/18 Range/Units 04:05 00:10 20:10 WBC 9.6 10.2 (4.5-11.0) 10^3/uL RBC 2.35 L 2.55 L (3.5-6.1) 10^6/uL Hgb 7.4 L 7.9 L (12.0-16.0) g/dL Hct 21.1 L 22.9 L (36.0-48.0) % MCV 89.8 89.8 (80.0-105.0) fl MCH 31.5 31.0 (25.0-35.0) pg MCHC 35.1 34.5 (31.0-37.0) g/dl RDW 14.9 H 14.8 H (11.5-14.5) % Plt Count 46 L* 57 L (120.0-450.0) 10^3/uL MPV 9.5 10.4 (7.0-11.0) fl Gran % 83.1 H 88.7 H (50.0-68.0) % Lymph % (Auto) 8.4 L 5.5 L (22.0-35.0) % [place] % (Auto) 7.3 H 5.1 (1.0-6.0) % Eos % (Auto) 1.0 L 0.5 L (1.5-5.0) % Baso % (Auto) 0.2 0.2 (0.0-3.0) % Gran # 8.01 H 9.01 H (1.4-6.5) Lymph # (Auto) 0.8 L 0.6 L (1.2-3.4) [place] # (Auto) 0.7 H 0.5 (0.1-0.6) Eos # (Auto) 0.1 0.1 (0.0-0.7) Baso # (Auto) 0.02 0.02 (0.0-2.0) K/mm3 PT (9.4-12.5) SECONDS INR APTT (25.1-36.5) Seconds pCO2 (35-45) mm/Hg pO2 (80-100) mm/Hg HCO3 (21-28) mmol/L ABG pH (7.35-7.45) ABG Total CO2 (22-28) mmol.L ABG O2 Saturation (95-98) % ABG O2 Content (15-23) ML/dl ABG Base Excess (-2.0-3.0) mmol/L ABG Hemoglobin (11.7-17.4) g/dL ABG Carboxyhemoglobin (0.5-1.5) % POC ABG HHb (Measured) (0-5) % ABG Methemoglobin (0.0-3.0) % ABG O2 Capacity (16-24) mL/dl Hgb O2 Saturation (95.0-98.0) % FiO2 % Sodium 141 (132-148) mmol/L Potassium 3.4 L (3.6-5.0) mmol/L Chloride 114 H (98-107) mmol/L Carbon Dioxide 24 (21-33) mmol/L Anion Gap 5 L (10-20) BUN 34 H (7-21) mg/dL Creatinine 0.7 (0.7-1.2) mg/dl Est GFR ( Amer) > 60 Est GFR (Non-Af Amer) > 60 Random Glucose 109 (70-110) mg/dL Calcium 8.0 L (8.4-10.5) mg/dL Total Bilirubin 5.3 H (0.2-1.3) mg/dL Direct Bilirubin (0.0-0.4) mg/dL AST 58 H (14-36) U/L ALT 39 (7-56) U/L Alkaline Phosphatase 57 (38-126) U/L Ammonia (9-33) umol/L Total Protein 4.6 L (5.8-8.3) g/dL Albumin 2.0 L (3.0-4.8) g/dL Globulin 2.6 gm/dL Albumin/Globulin Ratio 0.8 L (1.1-1.8) Levetiracetam mcg/mL Blood Type Antibody Screen Crossmatch BBK History Checked 07/31/18 07/31/18 07/31/18 Range/Units 20:10 16:21 10:30 WBC (4.5-11.0) 10^3/uL RBC (3.5-6.1) 10^6/uL Hgb (12.0-16.0) g/dL Hct (36.0-48.0) % MCV (80.0-105.0) fl MCH (25.0-35.0) pg MCHC (31.0-37.0) g/dl RDW (11.5-14.5) % Plt Count (120.0-450.0) 10^3/uL MPV (7.0-11.0) fl Gran % (50.0-68.0) % Lymph % (Auto) (22.0-35.0) % [place] % (Auto) (1.0-6.0) % Eos % (Auto) (1.5-5.0) % Baso % (Auto) (0.0-3.0) % Gran # (1.4-6.5) Lymph # (Auto) (1.2-3.4) [place] # (Auto) (0.1-0.6) Eos # (Auto) (0.0-0.7) Baso # (Auto) (0.0-2.0) K/mm3 PT 20.2 H (9.4-12.5) SECONDS INR 1.75 APTT 33.5 (25.1-36.5) Seconds pCO2 33 L (35-45) mm/Hg pO2 92.0 (80-100) mm/Hg HCO3 21.9 (21-28) mmol/L ABG pH 7.43 (7.35-7.45) ABG Total CO2 22.9 (22-28) mmol.L ABG O2 Saturation 99.8 H (95-98) % ABG O2 Content 12.0 L (15-23) ML/dl ABG Base Excess -2.0 (-2.0-3.0) mmol/L ABG Hemoglobin 8.7 L (11.7-17.4) g/dL ABG Carboxyhemoglobin 2.5 H (0.5-1.5) % POC ABG HHb (Measured) 0.2 (0-5) % ABG Methemoglobin 0.4 (0.0-3.0) % ABG O2 Capacity 12.0 L (16-24) mL/dl Hgb O2 Saturation 96.9 (95.0-98.0) % FiO2 40.0 % Sodium (132-148) mmol/L Potassium (3.6-5.0) mmol/L Chloride (98-107) mmol/L Carbon Dioxide (21-33) mmol/L Anion Gap (10-20) BUN (7-21) mg/dL Creatinine (0.7-1.2) mg/dl Est GFR ( Amer) Est GFR (Non-Af Amer) Random Glucose (70-110) mg/dL Calcium (8.4-10.5) mg/dL Total Bilirubin (0.2-1.3) mg/dL Direct Bilirubin (0.0-0.4) mg/dL AST (14-36) U/L ALT (7-56) U/L Alkaline Phosphatase (38-126) U/L Ammonia 93 H (9-33) umol/L Total Protein (5.8-8.3) g/dL Albumin (3.0-4.8) g/dL Globulin gm/dL Albumin/Globulin Ratio (1.1-1.8) Levetiracetam mcg/mL Blood Type Antibody Screen Crossmatch BBK History Checked 07/31/18 07/31/18 07/29/18 Range/Units 10:30 10:30 10:30 WBC 10.7 D (4.5-11.0) 10^3/uL RBC 2.40 L (3.5-6.1) 10^6/uL Hgb 7.4 L (12.0-16.0) g/dL Hct 21.6 L (36.0-48.0) % MCV 90.0 (80.0-105.0) fl MCH 30.8 (25.0-35.0) pg MCHC 34.3 (31.0-37.0) g/dl RDW 15.4 H (11.5-14.5) % Plt Count 71 L (120.0-450.0) 10^3/uL MPV 10.2 (7.0-11.0) fl Gran % 81.7 H (50.0-68.0) % Lymph % (Auto) 9.9 L (22.0-35.0) % [place] % (Auto) 6.5 H (1.0-6.0) % Eos % (Auto) 1.5 (1.5-5.0) % Baso % (Auto) 0.4 (0.0-3.0) % Gran # 8.71 H (1.4-6.5) Lymph # (Auto) 1.1 L (1.2-3.4) [place] # (Auto) 0.7 H (0.1-0.6) Eos # (Auto) 0.2 (0.0-0.7) Baso # (Auto) 0.04 (0.0-2.0) K/mm3 PT (9.4-12.5) SECONDS INR APTT (25.1-36.5) Seconds pCO2 (35-45) mm/Hg pO2 (80-100) mm/Hg HCO3 (21-28) mmol/L ABG pH (7.35-7.45) ABG Total CO2 (22-28) mmol.L ABG O2 Saturation (95-98) % ABG O2 Content (15-23) ML/dl ABG Base Excess (-2.0-3.0) mmol/L ABG Hemoglobin (11.7-17.4) g/dL ABG Carboxyhemoglobin (0.5-1.5) % POC ABG HHb (Measured) (0-5) % ABG Methemoglobin (0.0-3.0) % ABG O2 Capacity (16-24) mL/dl Hgb O2 Saturation (95.0-98.0) % FiO2 % Sodium (132-148) mmol/L Potassium (3.6-5.0) mmol/L Chloride (98-107) mmol/L Carbon Dioxide (21-33) mmol/L Anion Gap (10-20) BUN (7-21) mg/dL Creatinine (0.7-1.2) mg/dl Est GFR ( Amer) Est GFR (Non-Af Amer) Random Glucose (70-110) mg/dL Calcium (8.4-10.5) mg/dL Total Bilirubin (0.2-1.3) mg/dL Direct Bilirubin 2.0 H (0.0-0.4) mg/dL AST (14-36) U/L ALT (7-56) U/L Alkaline Phosphatase (38-126) U/L Ammonia (9-33) umol/L Total Protein (5.8-8.3) g/dL Albumin (3.0-4.8) g/dL Globulin gm/dL Albumin/Globulin Ratio (1.1-1.8) Levetiracetam mcg/mL Blood Type O POSITIVE Antibody Screen Negative Crossmatch See Detail BBK History Checked Patient has bt 07/28/18 Range/Units 16:00 WBC (4.5-11.0) 10^3/uL RBC (3.5-6.1) 10^6/uL Hgb (12.0-16.0) g/dL Hct (36.0-48.0) % MCV (80.0-105.0) fl MCH (25.0-35.0) pg MCHC (31.0-37.0) g/dl RDW (11.5-14.5) % Plt Count (120.0-450.0) 10^3/uL MPV (7.0-11.0) fl Gran % (50.0-68.0) % Lymph % (Auto) (22.0-35.0) % [place] % (Auto) (1.0-6.0) % Eos % (Auto) (1.5-5.0) % Baso % (Auto) (0.0-3.0) % Gran # (1.4-6.5) Lymph # (Auto) (1.2-3.4) [place] # (Auto) (0.1-0.6) Eos # (Auto) (0.0-0.7) Baso # (Auto) (0.0-2.0) K/mm3 PT (9.4-12.5) SECONDS INR APTT (25.1-36.5) Seconds pCO2 (35-45) mm/Hg pO2 (80-100) mm/Hg HCO3 (21-28) mmol/L ABG pH (7.35-7.45) ABG Total CO2 (22-28) mmol.L ABG O2 Saturation (95-98) % ABG O2 Content (15-23) ML/dl ABG Base Excess (-2.0-3.0) mmol/L ABG Hemoglobin (11.7-17.4) g/dL ABG Carboxyhemoglobin (0.5-1.5) % POC ABG HHb (Measured) (0-5) % ABG Methemoglobin (0.0-3.0) % ABG O2 Capacity (16-24) mL/dl Hgb O2 Saturation (95.0-98.0) % FiO2 % Sodium (132-148) mmol/L Potassium (3.6-5.0) mmol/L Chloride (98-107) mmol/L Carbon Dioxide (21-33) mmol/L Anion Gap (10-20) BUN (7-21) mg/dL Creatinine (0.7-1.2) mg/dl Est GFR ( Amer) Est GFR (Non-Af Amer) Random Glucose (70-110) mg/dL Calcium (8.4-10.5) mg/dL Total Bilirubin (0.2-1.3) mg/dL Direct Bilirubin (0.0-0.4) mg/dL AST (14-36) U/L ALT (7-56) U/L Alkaline Phosphatase (38-126) U/L Ammonia (9-33) umol/L Total Protein (5.8-8.3) g/dL Albumin (3.0-4.8) g/dL Globulin gm/dL Albumin/Globulin Ratio (1.1-1.8) Levetiracetam 59.2 mcg/mL Blood Type Antibody Screen Crossmatch BBK History Checked Laboratory Results - last 24 hr 07/28/18 07/29/18 07/31/18 16:00 10:30 10:30 WBC 10.7 D RBC 2.40 L Hgb 7.4 L Hct 21.6 L MCV 90.0 MCH 30.8 MCHC 34.3 RDW 15.4 H Plt Count 71 L MPV 10.2 Gran % 81.7 H Lymph % (Auto) 9.9 L [place] % (Auto) 6.5 H Eos % (Auto) 1.5 Baso % (Auto) 0.4 Gran # 8.71 H Lymph # (Auto) 1.1 L [place] # (Auto) 0.7 H Eos # (Auto) 0.2 Baso # (Auto) 0.04 PT INR APTT pCO2 pO2 HCO3 ABG pH ABG Total CO2 ABG O2 Saturation ABG O2 Content ABG Base Excess ABG Hemoglobin ABG Carboxyhemoglobin POC ABG HHb (Measured) ABG Methemoglobin ABG O2 Capacity Hgb O2 Saturation FiO2 Sodium Potassium Chloride Carbon Dioxide Anion Gap BUN Creatinine Est GFR ( Amer) Est GFR (Non-Af Amer) Random Glucose Calcium Total Bilirubin Direct Bilirubin AST ALT Alkaline Phosphatase Ammonia Total Protein Albumin Globulin Albumin/Globulin Ratio Levetiracetam 59.2 Blood Type O POSITIVE Antibody Screen Negative Crossmatch See Detail BBK History Checked Patient has bt 07/31/18 07/31/18 07/31/18 10:30 10:30 16:21 WBC RBC Hgb Hct MCV MCH MCHC RDW Plt Count MPV Gran % Lymph % (Auto) [place] % (Auto) Eos % (Auto) Baso % (Auto) Gran # Lymph # (Auto) [place] # (Auto) Eos # (Auto) Baso # (Auto) PT INR APTT pCO2 33 L pO2 92.0 HCO3 21.9 ABG pH 7.43 ABG Total CO2 22.9 ABG O2 Saturation 99.8 H ABG O2 Content 12.0 L ABG Base Excess -2.0 ABG Hemoglobin 8.7 L ABG Carboxyhemoglobin 2.5 H POC ABG HHb (Measured) 0.2 ABG Methemoglobin 0.4 ABG O2 Capacity 12.0 L Hgb O2 Saturation 96.9 FiO2 40.0 Sodium Potassium Chloride Carbon Dioxide Anion Gap BUN Creatinine Est GFR ( Amer) Est GFR (Non-Af Amer) Random Glucose Calcium Total Bilirubin Direct Bilirubin 2.0 H AST ALT Alkaline Phosphatase Ammonia 93 H Total Protein Albumin Globulin Albumin/Globulin Ratio Levetiracetam Blood Type Antibody Screen Crossmatch BBK History Checked 07/31/18 07/31/18 08/01/18 20:10 20:10 00:10 WBC 10.2 9.6 RBC 2.55 L 2.35 L Hgb 7.9 L 7.4 L Hct 22.9 L 21.1 L MCV 89.8 89.8 MCH 31.0 31.5 MCHC 34.5 35.1 RDW 14.8 H 14.9 H Plt Count 57 L 46 L* MPV 10.4 9.5 Gran % 88.7 H 83.1 H Lymph % (Auto) 5.5 L 8.4 L [place] % (Auto) 5.1 7.3 H Eos % (Auto) 0.5 L 1.0 L Baso % (Auto) 0.2 0.2 Gran # 9.01 H 8.01 H Lymph # (Auto) 0.6 L 0.8 L [place] # (Auto) 0.5 0.7 H Eos # (Auto) 0.1 0.1 Baso # (Auto) 0.02 0.02 PT 20.2 H INR 1.75 APTT 33.5 pCO2 pO2 HCO3 ABG pH ABG Total CO2 ABG O2 Saturation ABG O2 Content ABG Base Excess ABG Hemoglobin ABG Carboxyhemoglobin POC ABG HHb (Measured) ABG Methemoglobin ABG O2 Capacity Hgb O2 Saturation FiO2 Sodium Potassium Chloride Carbon Dioxide Anion Gap BUN Creatinine Est GFR ( Amer) Est GFR (Non-Af Amer) Random Glucose Calcium Total Bilirubin Direct Bilirubin AST ALT Alkaline Phosphatase Ammonia Total Protein Albumin Globulin Albumin/Globulin Ratio Levetiracetam Blood Type Antibody Screen Crossmatch BBK History Checked 08/01/18 08/01/18 08/01/18 04:05 04:05 04:05 WBC 8.8 RBC 2.21 L Hgb 6.9 L* Hct 20.0 L* MCV 90.5 MCH 31.2 MCHC 34.5 RDW 15.1 H Plt Count 46 L* MPV 10.6 Gran % 80.4 H Lymph % (Auto) 10.3 L [place] % (Auto) 8.0 H Eos % (Auto) 1.0 L Baso % (Auto) 0.3 Gran # 7.05 H Lymph # (Auto) 0.9 L [place] # (Auto) 0.7 H Eos # (Auto) 0.1 Baso # (Auto) 0.03 PT 22.2 H INR 1.92 APTT pCO2 pO2 HCO3 ABG pH ABG Total CO2 ABG O2 Saturation ABG O2 Content ABG Base Excess ABG Hemoglobin ABG Carboxyhemoglobin POC ABG HHb (Measured) ABG Methemoglobin ABG O2 Capacity Hgb O2 Saturation FiO2 Sodium 141 Potassium 3.4 L Chloride 114 H Carbon Dioxide 24 Anion Gap 5 L BUN 34 H Creatinine 0.7 Est GFR ( Amer) > 60 Est GFR (Non-Af Amer) > 60 Random Glucose 109 Calcium 8.0 L Total Bilirubin 5.3 H Direct Bilirubin AST 58 H ALT 39 Alkaline Phosphatase 57 Ammonia Total Protein 4.6 L Albumin 2.0 L Globulin 2.6 Albumin/Globulin Ratio 0.8 L Levetiracetam Blood Type Antibody Screen Crossmatch BBK History Checked 08/01/18 06:30 WBC RBC Hgb Hct MCV MCH MCHC RDW Plt Count MPV Gran % Lymph % (Auto) [place] % (Auto) Eos % (Auto) Baso % (Auto) Gran # Lymph # (Auto) [place] # (Auto) Eos # (Auto) Baso # (Auto) PT INR APTT pCO2 26 L pO2 105.0 H HCO3 22.2 ABG pH 7.54 H ABG Total CO2 23.0 ABG O2 Saturation 99.3 H ABG O2 Content 10.7 L ABG Base Excess 0.0 ABG Hemoglobin 7.8 L ABG Carboxyhemoglobin 1.9 H POC ABG HHb (Measured) 0.7 ABG Methemoglobin 1.3 ABG O2 Capacity 10.8 L Hgb O2 Saturation 96.1 FiO2 40.0 Sodium Potassium Chloride Carbon Dioxide Anion Gap BUN Creatinine Est GFR ( Amer) Est GFR (Non-Af Amer) Random Glucose Calcium Total Bilirubin Direct Bilirubin AST ALT Alkaline Phosphatase Ammonia Total Protein Albumin Globulin Albumin/Globulin Ratio Levetiracetam Blood Type Antibody Screen Crossmatch BBK History Checked Radiology Impressions: Radiology Impressions GI Bleed Scan Nuclear Medicine 07/31/18 06:02 IMPRESSION: Active GI bleed most likely originating in the a patent flexure of the colon Head CT 07/31/18 07:38 IMPRESSION: Cystic encephalomalacia, left parietal occipital lobe. Nonspecific white matter changes. Generalized atrophy. Chest X-Ray 07/31/18 15:16 IMPRESSION: Moderate vascular congestion. The endotracheal tube and nasogastric tube are in satisfactory position. Interventional Vascular Procedure 07/31/18 15:24 IMPRESSION: 1.No active extravasation present. 2. A prominent branch off the celiac axis appears to supply a hyperemic area in the splenic flexure. No extravasation was appreciated. This area corresponds with the area of activity on the recent bleeding scan. 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 S/p 2 L NS, 2 units PRBC and 1 unit FFP, 1 cryoprecipitate. Neuro: - Nonresponsive to painful or verbal stimuli, likely hepatic encephalopathic likely 2/2 ETOH cirrhosis. - 07/28/[address] w/o contrast: no acute intracranial abnormality. 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 - 07/31/[address] head ordered due to acute change in neuro function- unchanged - Keppra 1000 BID for seizure history, elevated random level at 59.2 - Ammonia level improved to 33, yesterday was 93 - AAOx0, doesn't follow commands - Monitor neuro status. - Reorient patient as necessary. Heme/Onc: Aplastic anemia - H/H improved to 7.4 overnight s/p 4 units PRBC , 2 FFP, 2 cryoprecipitate. Repeat INR 1.92. Hgb 6.9 this AM. Plan to transfuse another unit PRBC (as well as PLT) to then be followed up with CBC - RBC 1.78 - CBC q6h Thrmbocytopenia - PLT count 46, manual pending - Plan to transfuse 1 unit PLT today - PT/INR 22.2/1.92 - Continue monitoring H/H - Hem/Onc consulted - Dr. Medellin - further recs appreciated. Sustained hypotension- improved - R-IJ Central line placed - BP stable overnight GI: Dr. Vernon consulted - further recs appreciated. Colonoscopy planned once clinically stable. Hx of EtOH Cirrhosis, Ascites, colonic AVMs, esophageal varices banded in 2014 - melenotic BMs overnight - Lactuose 20 mg Q8H - Discontinue Octreotide drip today since after 72 hours per GI recs - 07/31/18 Bleeding scan shows collection in LUQ, likely active bleeding - 07/31/18 Flex Sig showed diffuse blood without obvious source - IR consulted - Dr. Wong- for Celiac, SMA and POOJA arteriograms. Prominent branch off celiac appeas to supply hyperemic area in splenic flexure. No extravasation. 07/29/18 Endoscopy showed moderate portal hypertensive gastropathy. 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 Grade 1 varices. - Continue Merrem 1 g q8 day #4 - CLD, but not currently - Protonix Cardio: - EKG done on admission shows: NSR at 95 bpm with prolonged QT interval, no ST elevations. - Trop 0.02 - Begin NS @ 100 cc/hr - Maintain MAP > 60. - Monitor for S/S, HD compromise. Pulm: - Pt unresponsive following sigmoidoscopy yesterday. Pt intubated by respiratory team with anesthesia at bedside. - Maintain O2 saturation >92%. - O2 NC PRN Vent: protective lung ventilation strategy, aspiration precautions - 07/28/18 CXR:vascular markings but no consolidations - Elevate bed to 30 degrees /Nephro: - BUN/Cr stable - F/U UA - Good urine output - Continue monitoring. Pseudohypocalcemia - Replete electrolytes as needed. - Maintaineuvolemia. Endocrinology: - Random glucose:92, 101 - Maintain euglycemia 140-180. ID: - ID consulted - Dr. Perez, ABx coverage and recs appreciated - Afebrile, no leukocytosis - F/u ID recs - Monitor for signs and symptoms of infection. DVT prophylaxis:SCDS, holding pharm prophylaxis in light of melena GI prophylaxis:Protonix 40 IVP daily Patient seen, case reviewed and plan approved by Dr. Orosco. Mehul Campbell, PGY-1 <Dylan Orosco - Last Filed: 08/01/18 16:22> CCU Objective - Vital Signs / Intake & Output Intake and Output (Last 8hrs): Intake & Output 08/01/18 08/01/18 08/01/18 06:59 14:59 22:59 Intake Total 100 100 Output Total 50 Balance 50 100 Intake: IV 100 100 Output: Urine 50 Urethral (Donahue) 50 - Medications Active Medications: Active Medications Generic Name Dose Route Start Last Admin Trade Name Freq PRN Reason Stop Dose Admin Acetaminophen 650 mg 07/30/18 09:02 07/30/18 14:32 Tylenol 325mg Tab PO 650 mg Q6H PRN Administration Headache Guaifenesin/Dextromethorphan 5 ml 07/30/18 09:04 Robitussin Dm PO Q4H PRN Cough Meropenem 1 gm in 50 mls @ 100 mls/hr 07/30/18 11:16 08/01/18 14:20 Merrem Iv 1 Gm Premix IVPB 08/08/18 11:17 100 mls/hr Q8 STEVEN Administration Protocol Levetiracetam 100 mls @ 460 mls/hr 07/31/18 11:00 08/01/18 09:39 Keppra 1000mg/100ml Ns IV 460 mls/hr Q12 STEVEN Administration Propofol 1,000 mg in 100 mls @ 1.905 mls/hr 07/31/18 15:25 08/01/18 14:08 Diprivan IV 30 mcg/kg/min .Q24H PRN 11.431 mls/hr TITRATE PER MD ORDER Administration Protocol 5 MCG/KG/MIN Sodium Chloride 1,000 mls @ 100 mls/hr 08/01/18 10:45 08/01/18 11:26 Sodium Chloride 0.9% IV 100 mls/hr .Q10H STEVEN Administration Lactulose 20 gm 07/31/18 18:15 08/01/18 11:28 Enulose PO 20 gm Q8H STEVEN Administration Metoprolol Succinate 25 mg 07/29/18 11:00 07/29/18 12:41 Toprol Xl PO Not Given DAILY STEVEN Morphine Sulfate 2 mg 07/31/18 16:08 Morphine IVP Q3H PRN Pain, severe (8-10) Pantoprazole Sodium 40 mg 07/31/18 10:47 08/01/18 09:38 Protonix Inj IVP 40 mg DAILY STEVEN Administration - Patient Studies Lab Studies: Microbiology Studies 07/30/18 17:31 Blood Culture - Preliminary Blood NO GROWTH AFTER 24 HOURS 07/30/18 17:31 Blood Culture - Preliminary Blood NO GROWTH AFTER 24 HOURS Lab Studies 08/01/18 08/01/18 08/01/18 Range/Units 15:46 07:45 07:45 WBC 5.8 D (4.5-11.0) 10^3/uL RBC 2.33 L (3.5-6.1) 10^6/uL Hgb 7.2 L (12.0-16.0) g/dL Hct 21.1 L (36.0-48.0) % MCV 90.6 (80.0-105.0) fl MCH 30.9 (25.0-35.0) pg MCHC 34.1 (31.0-37.0) g/dl RDW 15.1 H (11.5-14.5) % Plt Count 48 L* (120.0-450.0) 10^3/uL MPV 9.8 (7.0-11.0) fl Gran % 76.2 H (50.0-68.0) % Lymph % (Auto) 13.2 L (22.0-35.0) % [place] % (Auto) 8.7 H (1.0-6.0) % Eos % (Auto) 1.4 L (1.5-5.0) % Baso % (Auto) 0.5 (0.0-3.0) % Gran # 4.39 (1.4-6.5) Lymph # (Auto) 0.8 L (1.2-3.4) [place] # (Auto) 0.5 (0.1-0.6) Eos # (Auto) 0.1 (0.0-0.7) Baso # (Auto) 0.03 (0.0-2.0) K/mm3 PT (9.4-12.5) SECONDS INR APTT (25.1-36.5) Seconds pCO2 (35-45) mm/Hg pO2 (80-100) mm/Hg HCO3 (21-28) mmol/L ABG pH (7.35-7.45) ABG Total CO2 (22-28) mmol.L ABG O2 Saturation (95-98) % ABG O2 Content (15-23) ML/dl ABG Base Excess (-2.0-3.0) mmol/L ABG Hemoglobin (11.7-17.4) g/dL ABG Carboxyhemoglobin (0.5-1.5) % POC ABG HHb (Measured) (0-5) % ABG Methemoglobin (0.0-3.0) % ABG O2 Capacity (16-24) mL/dl Hgb O2 Saturation (95.0-98.0) % FiO2 % Sodium (132-148) mmol/L Potassium (3.6-5.0) mmol/L Chloride (98-107) mmol/L Carbon Dioxide (21-33) mmol/L Anion Gap (10-20) BUN (7-21) mg/dL Creatinine (0.7-1.2) mg/dl Est GFR ( Amer) Est GFR (Non-Af Amer) Random Glucose (70-110) mg/dL Calcium (8.4-10.5) mg/dL Total Bilirubin (0.2-1.3) mg/dL AST (14-36) U/L ALT (7-56) U/L Alkaline Phosphatase (38-126) U/L Ammonia 33 (9-33) umol/L Total Protein (5.8-8.3) g/dL Albumin (3.0-4.8) g/dL Globulin gm/dL Albumin/Globulin Ratio (1.1-1.8) Blood Type O POSITIVE Antibody Screen Negative Crossmatch See Detail BBK History Checked Patient has bt 08/01/18 08/01/18 08/01/18 Range/Units 06:30 04:05 04:05 WBC 8.8 (4.5-11.0) 10^3/uL RBC 2.21 L (3.5-6.1) 10^6/uL Hgb 6.9 L* (12.0-16.0) g/dL Hct 20.0 L* (36.0-48.0) % MCV 90.5 (80.0-105.0) fl MCH 31.2 (25.0-35.0) pg MCHC 34.5 (31.0-37.0) g/dl RDW 15.1 H (11.5-14.5) % Plt Count 46 L* (120.0-450.0) 10^3/uL MPV 10.6 (7.0-11.0) fl Gran % 80.4 H (50.0-68.0) % Lymph % (Auto) 10.3 L (22.0-35.0) % [place] % (Auto) 8.0 H (1.0-6.0) % Eos % (Auto) 1.0 L (1.5-5.0) % Baso % (Auto) 0.3 (0.0-3.0) % Gran # 7.05 H (1.4-6.5) Lymph # (Auto) 0.9 L (1.2-3.4) [place] # (Auto) 0.7 H (0.1-0.6) Eos # (Auto) 0.1 (0.0-0.7) Baso # (Auto) 0.03 (0.0-2.0) K/mm3 PT 22.2 H (9.4-12.5) SECONDS INR 1.92 APTT (25.1-36.5) Seconds pCO2 26 L (35-45) mm/Hg pO2 105.0 H (80-100) mm/Hg HCO3 22.2 (21-28) mmol/L ABG pH 7.54 H (7.35-7.45) ABG Total CO2 23.0 (22-28) mmol.L ABG O2 Saturation 99.3 H (95-98) % ABG O2 Content 10.7 L (15-23) ML/dl ABG Base Excess 0.0 (-2.0-3.0) mmol/L ABG Hemoglobin 7.8 L (11.7-17.4) g/dL ABG Carboxyhemoglobin 1.9 H (0.5-1.5) % POC ABG HHb (Measured) 0.7 (0-5) % ABG Methemoglobin 1.3 (0.0-3.0) % ABG O2 Capacity 10.8 L (16-24) mL/dl Hgb O2 Saturation 96.1 (95.0-98.0) % FiO2 40.0 % Sodium (132-148) mmol/L Potassium (3.6-5.0) mmol/L Chloride (98-107) mmol/L Carbon Dioxide (21-33) mmol/L Anion Gap (10-20) BUN (7-21) mg/dL Creatinine (0.7-1.2) mg/dl Est GFR ( Amer) Est GFR (Non-Af Amer) Random Glucose (70-110) mg/dL Calcium (8.4-10.5) mg/dL Total Bilirubin (0.2-1.3) mg/dL AST (14-36) U/L ALT (7-56) U/L Alkaline Phosphatase (38-126) U/L Ammonia (9-33) umol/L Total Protein (5.8-8.3) g/dL Albumin (3.0-4.8) g/dL Globulin gm/dL Albumin/Globulin Ratio (1.1-1.8) Blood Type Antibody Screen Crossmatch BBK History Checked 08/01/18 08/01/18 07/31/18 Range/Units 04:05 00:10 20:10 WBC 9.6 10.2 (4.5-11.0) 10^3/uL RBC 2.35 L 2.55 L (3.5-6.1) 10^6/uL Hgb 7.4 L 7.9 L (12.0-16.0) g/dL Hct 21.1 L 22.9 L (36.0-48.0) % MCV 89.8 89.8 (80.0-105.0) fl MCH 31.5 31.0 (25.0-35.0) pg MCHC 35.1 34.5 (31.0-37.0) g/dl RDW 14.9 H 14.8 H (11.5-14.5) % Plt Count 46 L* 57 L (120.0-450.0) 10^3/uL MPV 9.5 10.4 (7.0-11.0) fl Gran % 83.1 H 88.7 H (50.0-68.0) % Lymph % (Auto) 8.4 L 5.5 L (22.0-35.0) % [place] % (Auto) 7.3 H 5.1 (1.0-6.0) % Eos % (Auto) 1.0 L 0.5 L (1.5-5.0) % Baso % (Auto) 0.2 0.2 (0.0-3.0) % Gran # 8.01 H 9.01 H (1.4-6.5) Lymph # (Auto) 0.8 L 0.6 L (1.2-3.4) [place] # (Auto) 0.7 H 0.5 (0.1-0.6) Eos # (Auto) 0.1 0.1 (0.0-0.7) Baso # (Auto) 0.02 0.02 (0.0-2.0) K/mm3 PT (9.4-12.5) SECONDS INR APTT (25.1-36.5) Seconds pCO2 (35-45) mm/Hg pO2 (80-100) mm/Hg HCO3 (21-28) mmol/L ABG pH (7.35-7.45) ABG Total CO2 (22-28) mmol.L ABG O2 Saturation (95-98) % ABG O2 Content (15-23) ML/dl ABG Base Excess (-2.0-3.0) mmol/L ABG Hemoglobin (11.7-17.4) g/dL ABG Carboxyhemoglobin (0.5-1.5) % POC ABG HHb (Measured) (0-5) % ABG Methemoglobin (0.0-3.0) % ABG O2 Capacity (16-24) mL/dl Hgb O2 Saturation (95.0-98.0) % FiO2 % Sodium 141 (132-148) mmol/L Potassium 3.4 L (3.6-5.0) mmol/L Chloride 114 H (98-107) mmol/L Carbon Dioxide 24 (21-33) mmol/L Anion Gap 5 L (10-20) BUN 34 H (7-21) mg/dL Creatinine 0.7 (0.7-1.2) mg/dl Est GFR ( Amer) > 60 Est GFR (Non-Af Amer) > 60 Random Glucose 109 (70-110) mg/dL Calcium 8.0 L (8.4-10.5) mg/dL Total Bilirubin 5.3 H (0.2-1.3) mg/dL AST 58 H (14-36) U/L ALT 39 (7-56) U/L Alkaline Phosphatase 57 (38-126) U/L Ammonia (9-33) umol/L Total Protein 4.6 L (5.8-8.3) g/dL Albumin 2.0 L (3.0-4.8) g/dL Globulin 2.6 gm/dL Albumin/Globulin Ratio 0.8 L (1.1-1.8) Blood Type Antibody Screen Crossmatch BBK History Checked 07/31/18 07/31/18 07/29/18 Range/Units 20:10 16:21 10:30 WBC (4.5-11.0) 10^3/uL RBC (3.5-6.1) 10^6/uL Hgb (12.0-16.0) g/dL Hct (36.0-48.0) % MCV (80.0-105.0) fl MCH (25.0-35.0) pg MCHC (31.0-37.0) g/dl RDW (11.5-14.5) % Plt Count (120.0-450.0) 10^3/uL MPV (7.0-11.0) fl Gran % (50.0-68.0) % Lymph % (Auto) (22.0-35.0) % [place] % (Auto) (1.0-6.0) % Eos % (Auto) (1.5-5.0) % Baso % (Auto) (0.0-3.0) % Gran # (1.4-6.5) Lymph # (Auto) (1.2-3.4) [place] # (Auto) (0.1-0.6) Eos # (Auto) (0.0-0.7) Baso # (Auto) (0.0-2.0) K/mm3 PT 20.2 H (9.4-12.5) SECONDS INR 1.75 APTT 33.5 (25.1-36.5) Seconds pCO2 33 L (35-45) mm/Hg pO2 92.0 (80-100) mm/Hg HCO3 21.9 (21-28) mmol/L ABG pH 7.43 (7.35-7.45) ABG Total CO2 22.9 (22-28) mmol.L ABG O2 Saturation 99.8 H (95-98) % ABG O2 Content 12.0 L (15-23) ML/dl ABG Base Excess -2.0 (-2.0-3.0) mmol/L ABG Hemoglobin 8.7 L (11.7-17.4) g/dL ABG Carboxyhemoglobin 2.5 H (0.5-1.5) % POC ABG HHb (Measured) 0.2 (0-5) % ABG Methemoglobin 0.4 (0.0-3.0) % ABG O2 Capacity 12.0 L (16-24) mL/dl Hgb O2 Saturation 96.9 (95.0-98.0) % FiO2 40.0 % Sodium (132-148) mmol/L Potassium (3.6-5.0) mmol/L Chloride (98-107) mmol/L Carbon Dioxide (21-33) mmol/L Anion Gap (10-20) BUN (7-21) mg/dL Creatinine (0.7-1.2) mg/dl Est GFR ( Amer) Est GFR (Non-Af Amer) Random Glucose (70-110) mg/dL Calcium (8.4-10.5) mg/dL Total Bilirubin (0.2-1.3) mg/dL AST (14-36) U/L ALT (7-56) U/L Alkaline Phosphatase (38-126) U/L Ammonia (9-33) umol/L Total Protein (5.8-8.3) g/dL Albumin (3.0-4.8) g/dL Globulin gm/dL Albumin/Globulin Ratio (1.1-1.8) Blood Type O POSITIVE Antibody Screen Negative Crossmatch See Detail BBK History Checked Patient has bt Laboratory Results - last 24 hr 07/29/18 07/31/18 07/31/18 10:30 16:21 20:10 WBC RBC Hgb Hct MCV MCH MCHC RDW Plt Count MPV Gran % Lymph % (Auto) [place] % (Auto) Eos % (Auto) Baso % (Auto) Gran # Lymph # (Auto) [place] # (Auto) Eos # (Auto) Baso # (Auto) PT 20.2 H INR 1.75 APTT 33.5 pCO2 33 L pO2 92.0 HCO3 21.9 ABG pH 7.43 ABG Total CO2 22.9 ABG O2 Saturation 99.8 H ABG O2 Content 12.0 L ABG Base Excess -2.0 ABG Hemoglobin 8.7 L ABG Carboxyhemoglobin 2.5 H POC ABG HHb (Measured) 0.2 ABG Methemoglobin 0.4 ABG O2 Capacity 12.0 L Hgb O2 Saturation 96.9 FiO2 40.0 Sodium Potassium Chloride Carbon Dioxide Anion Gap BUN Creatinine Est GFR ( Amer) Est GFR (Non-Af Amer) Random Glucose Calcium Total Bilirubin AST ALT Alkaline Phosphatase Ammonia Total Protein Albumin Globulin Albumin/Globulin Ratio Blood Type O POSITIVE Antibody Screen Negative Crossmatch See Detail BBK History Checked Patient has bt 07/31/18 08/01/18 08/01/18 20:10 00:10 04:05 WBC 10.2 9.6 RBC 2.55 L 2.35 L Hgb 7.9 L 7.4 L Hct 22.9 L 21.1 L MCV 89.8 89.8 MCH 31.0 31.5 MCHC 34.5 35.1 RDW 14.8 H 14.9 H Plt Count 57 L 46 L* MPV 10.4 9.5 Gran % 88.7 H 83.1 H Lymph % (Auto) 5.5 L 8.4 L [place] % (Auto) 5.1 7.3 H Eos % (Auto) 0.5 L 1.0 L Baso % (Auto) 0.2 0.2 Gran # 9.01 H 8.01 H Lymph # (Auto) 0.6 L 0.8 L [place] # (Auto) 0.5 0.7 H Eos # (Auto) 0.1 0.1 Baso # (Auto) 0.02 0.02 PT INR APTT pCO2 pO2 HCO3 ABG pH ABG Total CO2 ABG O2 Saturation ABG O2 Content ABG Base Excess ABG Hemoglobin ABG Carboxyhemoglobin POC ABG HHb (Measured) ABG Methemoglobin ABG O2 Capacity Hgb O2 Saturation FiO2 Sodium 141 Potassium 3.4 L Chloride 114 H Carbon Dioxide 24 Anion Gap 5 L BUN 34 H Creatinine 0.7 Est GFR ( Amer) > 60 Est GFR (Non-Af Amer) > 60 Random Glucose 109 Calcium 8.0 L Total Bilirubin 5.3 H AST 58 H ALT 39 Alkaline Phosphatase 57 Ammonia Total Protein 4.6 L Albumin 2.0 L Globulin 2.6 Albumin/Globulin Ratio 0.8 L Blood Type Antibody Screen Crossmatch BBK History Checked 08/01/18 08/01/18 08/01/18 04:05 04:05 06:30 WBC 8.8 RBC 2.21 L Hgb 6.9 L* Hct 20.0 L* MCV 90.5 MCH 31.2 MCHC 34.5 RDW 15.1 H Plt Count 46 L* MPV 10.6 Gran % 80.4 H Lymph % (Auto) 10.3 L [place] % (Auto) 8.0 H Eos % (Auto) 1.0 L Baso % (Auto) 0.3 Gran # 7.05 H Lymph # (Auto) 0.9 L [place] # (Auto) 0.7 H Eos # (Auto) 0.1 Baso # (Auto) 0.03 PT 22.2 H INR 1.92 APTT pCO2 26 L pO2 105.0 H HCO3 22.2 ABG pH 7.54 H ABG Total CO2 23.0 ABG O2 Saturation 99.3 H ABG O2 Content 10.7 L ABG Base Excess 0.0 ABG Hemoglobin 7.8 L ABG Carboxyhemoglobin 1.9 H POC ABG HHb (Measured) 0.7 ABG Methemoglobin 1.3 ABG O2 Capacity 10.8 L Hgb O2 Saturation 96.1 FiO2 40.0 Sodium Potassium Chloride Carbon Dioxide Anion Gap BUN Creatinine Est GFR ( Amer) Est GFR (Non-Af Amer) Random Glucose Calcium Total Bilirubin AST ALT Alkaline Phosphatase Ammonia Total Protein Albumin Globulin Albumin/Globulin Ratio Blood Type Antibody Screen Crossmatch BBK History Checked 08/01/18 08/01/18 08/01/18 07:45 07:45 15:46 WBC 5.8 D RBC 2.33 L Hgb 7.2 L Hct 21.1 L MCV 90.6 MCH 30.9 MCHC 34.1 RDW 15.1 H Plt Count 48 L* MPV 9.8 Gran % 76.2 H Lymph % (Auto) 13.2 L [place] % (Auto) 8.7 H Eos % (Auto) 1.4 L Baso % (Auto) 0.5 Gran # 4.39 Lymph # (Auto) 0.8 L [place] # (Auto) 0.5 Eos # (Auto) 0.1 Baso # (Auto) 0.03 PT INR APTT pCO2 pO2 HCO3 ABG pH ABG Total CO2 ABG O2 Saturation ABG O2 Content ABG Base Excess ABG Hemoglobin ABG Carboxyhemoglobin POC ABG HHb (Measured) ABG Methemoglobin ABG O2 Capacity Hgb O2 Saturation FiO2 Sodium Potassium Chloride Carbon Dioxide Anion Gap BUN Creatinine Est GFR ( Amer) Est GFR (Non-Af Amer) Random Glucose Calcium Total Bilirubin AST ALT Alkaline Phosphatase Ammonia 33 Total Protein Albumin Globulin Albumin/Globulin Ratio Blood Type O POSITIVE Antibody Screen Negative Crossmatch See Detail BBK History Checked Patient has bt Radiology Impressions: Radiology Impressions Interventional Vascular Procedure 07/31/18 15:24 IMPRESSION: 1.No active extravasation present. 2. A prominent branch off the celiac axis appears to supply a hyperemic area in the splenic flexure. No extravasation was appreciated. This area corresponds with the area of activity on the recent bleeding scan. 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, seizure, peptic ulcer disease, admitted with GIB, likely lower GIB Patient underwent EGD (no active bleeding), and flex sig (active bleeding noted) Pt also went unsuccessful IR angiography, no active extravasation noted, no embolization Currently afebrile, HD stable, NOT on Vasopressor support, comfortable in NAD, intubated, sedated GI and surgery following HH 6.9 today, plts 46, to receive 1u PRBC, and 1u Plts Acute GIB Cirrhosis EtOH abuse Thrombocytopenia Hx CVA Liver disease Coagulopathy Recommend: - cont with vent support, low tidal vol ventilation, daily sedation vacation CPAP trials - Abx as per ID - IVF - transfuse 1u PRBC, 1u PLts - CBC q6hr - PPI IV BID - DC OCtreotide - Vit K IV 5mg x 1 - Lactulose, titrate to 2 BMs per day - GI ppx - DVT ppx - Monitor in MICU Patient remains critical, with guarded prognosis Full Code Critical care time 35 minutes
[2018-08-01] MEDS: levETIRAcetam 1000mg/100ml NS 100 ML IV SCH ×2 (09:39→22:11)
[2018-08-01] MEDS ORDERED: Phytonadione 5 MG in Sodium Chloride 0.9% 50 ML IV ONE (10:49)
[2018-08-01] MEDS: Sodium Chloride 0.9% 1,000 ML IV SCH ×2 (11:26→22:12)
--- NOTE | 2018-08-01 11:31 | PN ---
DATE: 08/01/[address] Vernon, Dr. Camargo covering. SUBJECTIVE: The patient remains in ICU. She is currently intubated and sedated. She had apparently one bloody bowel movement overnight. PHYSICAL EXAMINATION: VITAL SIGNS: Reveal temperature of 99.1, heart rate of 94 and blood pressure 161/64. HEENT: Reveal sclerae to be pale. Sclerae to be white. Conjunctivae pale. She has an endotracheal tube in her mouth. NECK: Supple. CHEST: Reveal distant breath sounds. HEART: Reveals a regular rate and rhythm. ABDOMEN: Soft and nontender. EXTREMITIES: Show no edema. LABORATORY DATA: Reveal white blood cell count of 8.8, hemoglobin 6.9 and platelet count of 46,000. Chemistries reveal BUN 34 and creatinine 0.7. Total bilirubin 5.3, AST 58 and albumin of 2.0. Serum ammonia 33. IMPRESSION: A 63-year-old female with alcohol-induced cirrhosis of the liver with lower gastrointestinal bleed, anemia, coagulopathy and thrombocytopenia. The bleeding apparently stems from the splenic flexure possibly from a arteriovenous malformation, mesenteric angiography confirmed this finding. Her prognosis is guarded. RECOMMENDATIONS: We will transfuse two more units of packed red blood cells as well as a unit of platelets. Cory Camargo MD
--- NOTE | 2018-08-01 14:13 | CP.PCM.PN ---
Subjective - Date & Time of Evaluation Date of Evaluation: 08/01/18 Time of Evaluation: 14:08 - Subjective Subjective: General Surgery Progress Note for Dr. Brown This patient was seen and examined this AM at bedside. Yesterday after her colonoscopy she was intubated. In the IR suite there was no active bleeding. She is currently still intubated with a soft abdomen. Objective - Vital Signs/Intake and Output Vital Signs (last 24 hours): Temp Pulse Resp BP Pulse Ox 99.1 F 96 H 16 117/67 99 08/01/18 11:15 08/01/18 11:15 07/31/18 18:33 08/01/18 11:15 08/01/18 11:15 Intake and Output: 08/01/18 08/01/18 06:59 18:59 Intake Total 175 Output Total 160 Balance 15 - Medications Medications: Current Medications Acetaminophen (Tylenol 325mg Tab) 650 mg PO Q6H PRN PRN Reason: Headache Last Admin: 07/30/18 14:32 Dose: 650 mg Guaifenesin/Dextromethorphan (Robitussin Dm) 5 ml PO Q4H PRN PRN Reason: Cough Meropenem (Merrem Iv 1 Gm Premix) 1 gm in 50 mls @ 100 mls/hr IVPB Q8 STEVEN; Protocol Stop: 08/08/18 11:17 Last Admin: 08/01/18 06:30 Dose: 100 mls/hr Levetiracetam (Keppra 1000mg/100ml Ns) 100 mls @ 460 mls/hr IV Q12 STEVEN Last Admin: 08/01/18 09:39 Dose: 460 mls/hr Propofol (Diprivan) 1,000 mg in 100 mls @ 1.905 mls/hr IV .Q24H PRN; Protocol PRN Reason: TITRATE PER MD ORDER Last Admin: 08/01/18 06:53 Dose: 30 mcg/kg/min, 11.431 mls/hr Sodium Chloride (Sodium Chloride 0.9%) 1,000 mls @ 100 mls/hr IV .Q10H STEVEN Last Admin: 08/01/18 11:26 Dose: 100 mls/hr Lactulose (Enulose) 20 gm PO Q8H STEVEN Last Admin: 08/01/18 11:28 Dose: 20 gm Metoprolol Succinate (Toprol Xl) 25 mg PO DAILY [facility] Last Admin: 07/29/18 12:41 Dose: Not Given Morphine Sulfate (Morphine) 2 mg IVP Q3H PRN PRN Reason: Pain, severe (8-10) Pantoprazole Sodium (Protonix Inj) 40 mg IVP DAILY [facility] Last Admin: 08/01/18 09:38 Dose: 40 mg - Labs Labs: 08/01/18 04:05 08/01/18 04:05 PT 22.2 SECONDS (9.4-12.5) H 08/01/18 04:05 INR 1.92 08/01/18 04:05 APTT 33.5 Seconds (25.1-36.5) 07/31/18 20:10 - Constitutional Appears: Chronically Ill - Respiratory Exam Additional comments: intubated - Cardiovascular Exam Cardiovascular Exam: REGULAR RHYTHM, +S1, +S2. absent: Tachycardia - GI/Abdominal Exam GI & Abdominal Exam: Distended, Soft. absent: Rigid - Skin Skin Exam: Dry, Intact Assessment and Plan - Assessment and Plan (Free Text) Assessment: 63F with GI bleed Continue medical manage per primary team Continue to transfuse as needed. Correct coagulopathy Will continue to follow D/W Dr. Kevin Bar PGY3
[2018-08-01 16:06] LABS: BASO # 0.03 K/mm3 (0.0-2.0); BASO % 0.5 % (0.0-3.0); EOS # 0.1 (0.0-0.7); EOS % 1.4 % (1.5-5.0); GRAN # 4.39 (1.4-6.5); GRAN % 76.2 % (50.0-68.0); HEMOGLOBIN 7.2 g/dL (12.0-16.0); LYMPH # 0.8 (1.2-3.4); LYMPH % 13.2 % (22.0-35.0); MEAN CELL VOLUME 90.6 fl (80.0-105.0); MEAN CORPUSCULAR HEMOGLOBIN 30.9 pg (25.0-35.0); MEAN CORPUSCULAR HGB CONC 34.1 g/dl (31.0-37.0); MEAN PLATELET VOLUME 9.8 fl (7.0-11.0); MONO # 0.5 (0.1-0.6); MONO % 8.7 % (1.0-6.0); RBC 2.33 10^6/uL (3.5-6.1); RED CELL DISTRIBUTION WIDTH 15.1 % (11.5-14.5); WHITE BLOOD COUNT 5.8 10^3/uL (4.5-11.0)
[2018-08-01 16:10] LABS: PLATELET COUNT 48 10^3/uL (120.0-450.0)
--- NOTE | 2018-08-01 18:23 | PN ---
DATE: 08/01/2018 SUBJECTIVE: The patient was seen this Friday morning in intensive care unit in CCU bed 3. She is in bed sedated with an intravenous drip. She is intubated and sedated, no spontaneous movements at this time, receiving the transfusion of packed red cells. PHYSICAL EXAMINATION: LUNGS: Show good aeration right and left. HEART: Regular, not tachycardic. EXTREMITIES: Show trace edema. PLAN: Case was discussed with her nurse at the bedside. Later in the day, I spoke with the patient's , bring him up-to-date on her condition. I explained the intubation, sedation, and her lack of response when he comes to see her. We will follow serial H&H, also spontaneously and we will pursue a source at that time. Abilio Bass MD
--- NOTE | 2018-08-01 19:11 | PN ---
DATE: 08/01/2018 SUBJECTIVE: Patient is in bed, in no changes. Patient was seen earlier this morning. As of this morning, the patient was intubated on the ventilator. PHYSICAL EXAMINATION VITAL SIGNS: T-max is 99, blood pressure is 117/60, respiratory rate is noted, and heart rate of 98. HEENT: Unremarkable. ET tube is in place. NECK: Supple. LUNGS: Decreased breath sounds. HEART: Normal S1 and S2. ABDOMEN: Soft and nontender. LABORATORY DATA: White count of 5.8, hemoglobin of 7, and platelets of 48. BUN of 34 and creatinine of 0.7. Review of orders reveals the patient to be on meropenem. Microbiology reveals the blood cultures are negative. Urine cultures are negative. ASSESSMENT AND PLAN: This is a 63-year-old female with systemic inflammatory response syndrome due to acute gastrointestinal bleed, esophageal varices, and liver cirrhosis from alcohol abuse. We will continue the meropenem day #3. We will complete 7 days of antibiotics in a patient who is ALLERGIC TO PENICILLIN. Currently, with respiratory failure, intubated on a ventilator as of this morning. We will follow. Yunior Jasso MD
[2018-08-01 23:38] LABS: BASO # 0.03 K/mm3 (0.0-2.0); BASO % 0.6 % (0.0-3.0); EOS # 0.1 (0.0-0.7); GRAN # 3.22 (1.4-6.5); LYMPH # 0.7 (1.2-3.4); MEAN CELL VOLUME 91.9 fl (80.0-105.0); MEAN CORPUSCULAR HEMOGLOBIN 31.4 pg (25.0-35.0); MEAN CORPUSCULAR HGB CONC 34.1 g/dl (31.0-37.0); MEAN PLATELET VOLUME 9.7 fl (7.0-11.0); MONO # 0.6 (0.1-0.6); MONO % 12.4 % (1.0-6.0); RBC 2.23 10^6/uL (3.5-6.1); RED CELL DISTRIBUTION WIDTH 15.8 % (11.5-14.5); WHITE BLOOD COUNT 4.7 10^3/uL (4.5-11.0)
[2018-08-01 23:42] LABS: PLATELET COUNT 35 10^3/uL (120.0-450.0)
[2018-08-02] MEDS: Propofol 10 mg/ml 1,000 MG/100 ML VIAL IV PRN ×3 (03:26→17:26)
[2018-08-02 05:05] LABS: ARTERIAL BLOOD GAS HCO3 21.3 mmol/L (21-28); ARTERIAL BLOOD GAS HEMOGLOBIN 8.3 g/dL (11.7-17.4); ARTERIAL BLOOD GAS O2 CAPACITY 11.6 mL/dl (16-24); ARTERIAL BLOOD GAS O2 CONTENT 11.6 ML/dl (15-23); ARTERIAL BLOOD GAS O2 SAT 99.8 % (95-98); ARTERIAL BLOOD GAS PCO2 30 mm/Hg (35-45); ARTERIAL BLOOD GAS PH 7.46 (7.35-7.45); ARTERIAL BLOOD GAS TCO2 22.2 mmol.L (22-28)
[2018-08-02] MEDS: Meropenem IV 1 gm in NS 1 GM/50 ML BAG IVPB SCH ×3 (07:05→21:09)
[2018-08-02] MEDS: Sodium Chloride 0.9% 1,000 ML IV SCH (07:06)
--- NOTE | 2018-08-02 07:26 | CP.PCM.PN ---
Subjective - Date & Time of Evaluation Date of Evaluation: 08/02/18 Time of Evaluation: 07:22 - Subjective Subjective: Surgery Progress note- Dr. Brown Patient seen and examined at bedside. Intubated and sedated on propofol. on PRVC 400 14 50 5. had two dark bloody BM last night. Transfused 1uPRBC and 1uPLT yesterday. Remains HD normal not on any pressors at this time. Objective - Vital Signs/Intake and Output Vital Signs (last 24 hours): Temp Pulse Resp BP Pulse Ox 98.4 F 91 H 16 103/59 L 100 08/02/18 02:45 08/02/18 04:50 07/31/18 18:33 08/02/18 02:45 08/02/18 02:45 Intake and Output: 08/02/18 08/02/18 06:59 18:59 Intake Total 200 Balance 200 - Medications Medications: Current Medications Acetaminophen (Tylenol 325mg Tab) 650 mg PO Q6H PRN PRN Reason: Headache Last Admin: 07/30/18 14:32 Dose: 650 mg Guaifenesin/Dextromethorphan (Robitussin Dm) 5 ml PO Q4H PRN PRN Reason: Cough Meropenem (Merrem Iv 1 Gm Premix) 1 gm in 50 mls @ 100 mls/hr IVPB Q8 STEVEN; Pr otocol Stop: 08/08/18 11:17 Last Admin: 08/02/18 07:05 Dose: 100 mls/hr Levetiracetam (Keppra 1000mg/100ml Ns) 100 mls @ 460 mls/hr IV Q12 STEVEN Last Admin: 08/01/18 22:11 Dose: 460 mls/hr Propofol (Diprivan) 1,000 mg in 100 mls @ 1.905 mls/hr IV .Q24H PRN; Protocol PRN Reason: TITRATE PER MD ORDER Last Admin: 08/02/18 03:26 Dose: 30 mcg/kg/min, 11.431 mls/hr Sodium Chloride (Sodium Chloride 0.9%) 1,000 mls @ 100 mls/hr IV .Q10H STEVEN Last Admin: 08/02/18 07:06 Dose: 100 mls/hr Lactulose (Enulose) 20 gm PO Q8H STEVEN Last Admin: 08/02/18 03:25 Dose: 20 gm Metoprolol Succinate (Toprol Xl) 25 mg PO DAILY [facility] Last Admin: 07/29/18 12:41 Dose: Not Given Morphine Sulfate (Morphine) 2 mg IVP Q3H PRN PRN Reason: Pain, severe (8-10) Pantoprazole Sodium (Protonix Inj) 40 mg IVP DAILY [facility] Last Admin: 08/01/18 09:38 Dose: 40 mg - Labs Labs: 08/01/18 23:00 08/01/18 04:05 PT 22.2 SECONDS (9.4-12.5) H 08/01/18 04:05 INR 1.92 08/01/18 04:05 APTT 33.5 Seconds (25.1-36.5) 07/31/18 20:10 - Constitutional Appears: No Acute Distress, Chronically Ill - Head Exam Head Exam: ATRAUMATIC - Eye Exam Eye Exam: EOMI - ENT Exam ENT Exam: Mucous Membranes Moist - Respiratory Exam Respiratory Exam: NORMAL BREATHING PATTERN. absent: Accessory Muscle Use, Re spiratory Distress - GI/Abdominal Exam GI & Abdominal Exam: Distended, Soft. absent: Firm, Guarding, Rigid, Tenderness - Extremities Exam Extremities Exam: absent: Calf Tenderness - Neurological Exam Neurological Exam: Alert, Awake Additional comments: intubated at sedated - Skin Skin Exam: Intact, Warm Assessment and Plan - Assessment and Plan (Free Text) Assessment: 63F w/ GIB IR intervention no active bleeding seen Plan: - Monitor H/H - Transfuse PRN - recommend repeat colonoscopy - will continue to follow - further recs per Dr. Kevin Mercer PGY2
[2018-08-02 07:29] LABS: BASO # 0.03 K/mm3 (0.0-2.0); BASO % 0.8 % (0.0-3.0); EOS # 0.2 (0.0-0.7); EOS % 4.5 % (1.5-5.0); GRAN # 2.21 (1.4-6.5); GRAN % 62.3 % (50.0-68.0); HEMOGLOBIN 7.1 g/dL (12.0-16.0); LYMPH # 0.7 (1.2-3.4); LYMPH % 18.6 % (22.0-35.0); MEAN CELL VOLUME 92.9 fl (80.0-105.0); MEAN CORPUSCULAR HEMOGLOBIN 31.7 pg (25.0-35.0); MEAN CORPUSCULAR HGB CONC 34.1 g/dl (31.0-37.0); MONO # 0.5 (0.1-0.6); MONO % 13.8 % (1.0-6.0); RBC 2.24 10^6/uL (3.5-6.1); RED CELL DISTRIBUTION WIDTH 16.3 % (11.5-14.5); WHITE BLOOD COUNT 3.6 10^3/uL (4.5-11.0)
[2018-08-02 07:52] LABS: INR 1.63; PARTIAL THROMBOPLASTIN TIME 34.7 Seconds (25.1-36.5); PROTHROMBIN TIME 18.9 SECONDS (9.4-12.5)
[2018-08-02 07:57] LABS: ALB/GLOB RATIO 0.8 (1.1-1.8); ALBUMIN 1.9 g/dL (3.0-4.8); ALT/SGPT 48 U/L (7-56); AST/SGOT 85 U/L (14-36); BLOOD UREA NITROGEN 27 mg/dL (7-21); CALCIUM 7.9 mg/dL (8.4-10.5); GFR NON-AFRICAN AMERICAN > 60
[2018-08-02 08:00] LABS: PLATELET COUNT 30 10^3/uL (120.0-450.0)
--- NOTE | 2018-08-02 09:27 | CP.CCUPN ---
<Mehul Campbell - Last Filed: 08/02/18 11:10> CCU Subjective - Physician Review Subjective (Free Text): Mehul Campbell PGY-1 Progress Note for ICU Patient seen and evaluated at bedside. Two bloody bowel movements reported overnight. Patient mechanically ventilated and unresponsive to verbal or painful stimuli. Currently sedated on Propofol. Further ROS unable to be obtained due to clinical condition. CCU Objective - Vital Signs / Intake & Output Intake and Output (Last 8hrs): Intake & Output 08/01/18 08/02/18 08/02/18 22:59 06:59 14:59 Intake Total 1296 1658 Output Total 370 325 Balance 926 1333 Weight 67.404 kg Intake: IV 1296 1658 Right Internal Jugular 1196 1558 Output: Urine 320 325 Urethral (Donahue) 320 325 Stool 50 Other: # Bowel Movements 1 2 - Physical Exam Head: Positive for: Atraumatic, Normocephalic Pupils: Positive for: Sluggish, Other (Reactive equally bilaterally). Negative for: Pinpoint (Miotic) Extroacular Muscles: Positive for: EOMI Conjunctiva: Positive for: Icteric Mouth: Positive for: Moist Mucous Membranes, Dry. Negative for: Normal Teeth (poor dentition) Neck: Positive for: Normal Range of Motion Respiratory/Chest: Positive for: Clear to Auscultation, Good Air Exchange. Negative for: Respiratory Distress, Accessory Muscle Use Cardiovascular: Positive for: Normal S1, S2, Tachycardic. Negative for: Murmurs Abdomen: Positive for: Distention. Negative for: Tenderness (unable to be ascertained), Peritoneal Signs Rectal: Positive for: Gross Blood, Melena, Hemorrhoids (external nonthrombosed hemmorhoids) Back: Positive for: Normal Inspection Upper Extremity: Positive for: Normal Inspection. Negative for: Cyanosis, Edema Lower Extremity: Positive for: Normal Inspection, Swelling (trace pedal edema). Negative for: Edema, Mica's Sign, Tenderness Neurological: Negative for: GCS=15, CN II-XII Intact, Speech Normal Skin: Positive for: Warm, Dry, Pale. Negative for: Rashes, Normal Color Psychiatric: Negative for: Alert, Oriented x 3, Normal Insight, Normal Concentration - Medications Active Medications: Active Medications Generic Name Dose Route Start Last Admin Trade Name Freq PRN Reason Stop Dose Admin Acetaminophen 650 mg 07/30/18 09:02 07/30/18 14:32 Tylenol 325mg Tab PO 650 mg Q6H PRN Administration Headache Guaifenesin/Dextromethorphan 5 ml 07/30/18 09:04 Robitussin Dm PO Q4H PRN Cough Meropenem 1 gm in 50 mls @ 100 mls/hr 07/30/18 11:16 08/02/18 07:05 Merrem Iv 1 Gm Premix IVPB 08/08/18 11:17 100 mls/hr Q8 STEVEN Administration Protocol Levetiracetam 100 mls @ 460 mls/hr 07/31/18 11:00 08/01/18 22:11 Keppra 1000mg/100ml Ns IV 460 mls/hr Q12 STEVEN Administration Propofol 1,000 mg in 100 mls @ 1.905 mls/hr 07/31/18 15:25 08/02/18 03:26 Diprivan IV 30 mcg/kg/min .Q24H PRN 11.431 mls/hr TITRATE PER MD ORDER Administration Protocol 5 MCG/KG/MIN Sodium Chloride 1,000 mls @ 100 mls/hr 08/01/18 10:45 08/02/18 07:06 Sodium Chloride 0.9% IV 100 mls/hr .Q10H STEVEN Administration Lactulose 20 gm 07/31/18 18:15 08/02/18 03:25 Enulose PO 20 gm Q8H STEVEN Administration Metoprolol Succinate 25 mg 07/29/18 11:00 07/29/18 12:41 Toprol Xl PO Not Given DAILY STEVEN Morphine Sulfate 2 mg 07/31/18 16:08 Morphine IVP Q3H PRN Pain, severe (8-10) Pantoprazole Sodium 40 mg 07/31/18 10:47 08/01/18 09:38 Protonix Inj IVP 40 mg DAILY STEVEN Administration - Patient Studies Lab Studies: Microbiology Studies 07/30/18 17:31 Blood Culture - Preliminary Blood NO GROWTH AFTER 48 HOURS 07/30/18 17:31 Blood Culture - Preliminary Blood NO GROWTH AFTER 48 HOURS Lab Studies 08/02/18 08/02/18 08/02/18 Range/Units 07:00 07:00 07:00 WBC 3.6 L D (4.5-11.0) 10^3/uL RBC 2.24 L (3.5-6.1) 10^6/uL Hgb 7.1 L (12.0-16.0) g/dL Hct 20.8 L* (36.0-48.0) % MCV 92.9 (80.0-105.0) fl MCH 31.7 (25.0-35.0) pg MCHC 34.1 (31.0-37.0) g/dl RDW 16.3 H (11.5-14.5) % Plt Count 30 L* (120.0-450.0) 10^3/uL MPV 10.0 (7.0-11.0) fl Gran % 62.3 (50.0-68.0) % Lymph % (Auto) 18.6 L (22.0-35.0) % Mcpherson % (Auto) 13.8 H (1.0-6.0) % Eos % (Auto) 4.5 (1.5-5.0) % Baso % (Auto) 0.8 (0.0-3.0) % Gran # 2.21 (1.4-6.5) Lymph # (Auto) 0.7 L (1.2-3.4) Mcpherson # (Auto) 0.5 (0.1-0.6) Eos # (Auto) 0.2 (0.0-0.7) Baso # (Auto) 0.03 (0.0-2.0) K/mm3 PT 18.9 H (9.4-12.5) SECONDS INR 1.63 APTT 34.7 (25.1-36.5) Seconds Fibrinogen 135 L (200-400) mg/dl D-Dimer, Quantitative 1364 H (0-243) ng/mlDDU pCO2 (35-45) mm/Hg pO2 (80-100) mm/Hg HCO3 (21-28) mmol/L ABG pH (7.35-7.45) ABG Total CO2 (22-28) mmol.L ABG O2 Saturation (95-98) % ABG O2 Content (15-23) ML/dl ABG Base Excess (-2.0-3.0) mmol/L ABG Hemoglobin (11.7-17.4) g/dL ABG Carboxyhemoglobin (0.5-1.5) % POC ABG HHb (Measured) (0-5) % ABG Methemoglobin (0.0-3.0) % ABG O2 Capacity (16-24) mL/dl Hgb O2 Saturation (95.0-98.0) % FiO2 % Sodium 144 (132-148) mmol/L Potassium 3.1 L (3.6-5.0) mmol/L Chloride 120 H (98-107) mmol/L Carbon Dioxide 24 (21-33) mmol/L Anion Gap 3 L (10-20) BUN 27 H (7-21) mg/dL Creatinine 0.7 (0.7-1.2) mg/dl Est GFR ( Amer) > 60 Est GFR (Non-Af Amer) > 60 Random Glucose 110 (70-110) mg/dL Calcium 7.9 L (8.4-10.5) mg/dL Total Bilirubin 3.7 H (0.2-1.3) mg/dL AST 85 H D (14-36) U/L ALT 48 (7-56) U/L Alkaline Phosphatase 61 (38-126) U/L Total Protein 4.3 L (5.8-8.3) g/dL Albumin 1.9 L (3.0-4.8) g/dL Globulin 2.4 gm/dL Albumin/Globulin Ratio 0.8 L (1.1-1.8) Blood Type Antibody Screen Crossmatch BBK History Checked 08/02/18 08/01/18 08/01/18 Range/Units 05:00 23:00 15:46 WBC 4.7 5.8 D (4.5-11.0) 10^3/uL RBC 2.23 L 2.33 L (3.5-6.1) 10^6/uL Hgb 7.0 L 7.2 L (12.0-16.0) g/dL Hct 20.5 L* 21.1 L (36.0-48.0) % MCV 91.9 90.6 (80.0-105.0) fl MCH 31.4 30.9 (25.0-35.0) pg MCHC 34.1 34.1 (31.0-37.0) g/dl RDW 15.8 H 15.1 H (11.5-14.5) % Plt Count 35 L* 48 L* (120.0-450.0) 10^3/uL MPV 9.7 9.8 (7.0-11.0) fl Gran % 69.0 H 76.2 H (50.0-68.0) % Lymph % (Auto) 15.0 L 13.2 L (22.0-35.0) % Mcpherson % (Auto) 12.4 H 8.7 H (1.0-6.0) % Eos % (Auto) 3.0 1.4 L (1.5-5.0) % Baso % (Auto) 0.6 0.5 (0.0-3.0) % Gran # 3.22 4.39 (1.4-6.5) Lymph # (Auto) 0.7 L 0.8 L (1.2-3.4) Mcpherson # (Auto) 0.6 0.5 (0.1-0.6) Eos # (Auto) 0.1 0.1 (0.0-0.7) Baso # (Auto) 0.03 0.03 (0.0-2.0) K/mm3 PT (9.4-12.5) SECONDS INR APTT (25.1-36.5) Seconds Fibrinogen (200-400) mg/dl D-Dimer, Quantitative (0-243) ng/mlDDU pCO2 30 L (35-45) mm/Hg pO2 153.0 H (80-100) mm/Hg HCO3 21.3 (21-28) mmol/L ABG pH 7.46 H (7.35-7.45) ABG Total CO2 22.2 (22-28) mmol.L ABG O2 Saturation 99.8 H (95-98) % ABG O2 Content 11.6 L (15-23) ML/dl ABG Base Excess -2.1 L (-2.0-3.0) mmol/L ABG Hemoglobin 8.3 L (11.7-17.4) g/dL ABG Carboxyhemoglobin 2.1 H (0.5-1.5) % POC ABG HHb (Measured) 0.2 (0-5) % ABG Methemoglobin 1.2 (0.0-3.0) % ABG O2 Capacity 11.6 L (16-24) mL/dl Hgb O2 Saturation 96.6 (95.0-98.0) % FiO2 40.0 % Sodium (132-148) mmol/L Potassium (3.6-5.0) mmol/L Chloride (98-107) mmol/L Carbon Dioxide (21-33) mmol/L Anion Gap (10-20) BUN (7-21) mg/dL Creatinine (0.7-1.2) mg/dl Est GFR ( Amer) Est GFR (Non-Af Amer) Random Glucose (70-110) mg/dL Calcium (8.4-10.5) mg/dL Total Bilirubin (0.2-1.3) mg/dL AST (14-36) U/L ALT (7-56) U/L Alkaline Phosphatase (38-126) U/L Total Protein (5.8-8.3) g/dL Albumin (3.0-4.8) g/dL Globulin gm/dL Albumin/Globulin Ratio (1.1-1.8) Blood Type Antibody Screen Crossmatch BBK History Checked 08/01/18 Range/Units 07:45 WBC (4.5-11.0) 10^3/uL RBC (3.5-6.1) 10^6/uL Hgb (12.0-16.0) g/dL Hct (36.0-48.0) % MCV (80.0-105.0) fl MCH (25.0-35.0) pg MCHC (31.0-37.0) g/dl RDW (11.5-14.5) % Plt Count (120.0-450.0) 10^3/uL MPV (7.0-11.0) fl Gran % (50.0-68.0) % Lymph % (Auto) (22.0-35.0) % Mcpherson % (Auto) (1.0-6.0) % Eos % (Auto) (1.5-5.0) % Baso % (Auto) (0.0-3.0) % Gran # (1.4-6.5) Lymph # (Auto) (1.2-3.4) Mcpherson # (Auto) (0.1-0.6) Eos # (Auto) (0.0-0.7) Baso # (Auto) (0.0-2.0) K/mm3 PT (9.4-12.5) SECONDS INR APTT (25.1-36.5) Seconds Fibrinogen (200-400) mg/dl D-Dimer, Quantitative (0-243) ng/mlDDU pCO2 (35-45) mm/Hg pO2 (80-100) mm/Hg HCO3 (21-28) mmol/L ABG pH (7.35-7.45) ABG Total CO2 (22-28) mmol.L ABG O2 Saturation (95-98) % ABG O2 Content (15-23) ML/dl ABG Base Excess (-2.0-3.0) mmol/L ABG Hemoglobin (11.7-17.4) g/dL ABG Carboxyhemoglobin (0.5-1.5) % POC ABG HHb (Measured) (0-5) % ABG Methemoglobin (0.0-3.0) % ABG O2 Capacity (16-24) mL/dl Hgb O2 Saturation (95.0-98.0) % FiO2 % Sodium (132-148) mmol/L Potassium (3.6-5.0) mmol/L Chloride (98-107) mmol/L Carbon Dioxide (21-33) mmol/L Anion Gap (10-20) BUN (7-21) mg/dL Creatinine (0.7-1.2) mg/dl Est GFR ( Amer) Est GFR (Non-Af Amer) Random Glucose (70-110) mg/dL Calcium (8.4-10.5) mg/dL Total Bilirubin (0.2-1.3) mg/dL AST (14-36) U/L ALT (7-56) U/L Alkaline Phosphatase (38-126) U/L Total Protein (5.8-8.3) g/dL Albumin (3.0-4.8) g/dL Globulin gm/dL Albumin/Globulin Ratio (1.1-1.8) Blood Type O POSITIVE Antibody Screen Negative Crossmatch See Detail BBK History Checked Patient has bt Laboratory Results - last 24 hr 08/01/18 08/01/18 08/01/18 07:45 15:46 23:00 WBC 5.8 D 4.7 RBC 2.33 L 2.23 L Hgb 7.2 L 7.0 L Hct 21.1 L 20.5 L* MCV 90.6 91.9 MCH 30.9 31.4 MCHC 34.1 34.1 RDW 15.1 H 15.8 H Plt Count 48 L* 35 L* MPV 9.8 9.7 Gran % 76.2 H 69.0 H Lymph % (Auto) 13.2 L 15.0 L Mcpherson % (Auto) 8.7 H 12.4 H Eos % (Auto) 1.4 L 3.0 Baso % (Auto) 0.5 0.6 Gran # 4.39 3.22 Lymph # (Auto) 0.8 L 0.7 L Mcpherson # (Auto) 0.5 0.6 Eos # (Auto) 0.1 0.1 Baso # (Auto) 0.03 0.03 PT INR APTT Fibrinogen D-Dimer, Quantitative pCO2 pO2 HCO3 ABG pH ABG Total CO2 ABG O2 Saturation ABG O2 Content ABG Base Excess ABG Hemoglobin ABG Carboxyhemoglobin POC ABG HHb (Measured) ABG Methemoglobin ABG O2 Capacity Hgb O2 Saturation FiO2 Sodium Potassium Chloride Carbon Dioxide Anion Gap BUN Creatinine Est GFR ( Amer) Est GFR (Non-Af Amer) Random Glucose Calcium Total Bilirubin AST ALT Alkaline Phosphatase Total Protein Albumin Globulin Albumin/Globulin Ratio Blood Type O POSITIVE Antibody Screen Negative Crossmatch See Detail BBK History Checked Patient has bt 08/02/18 08/02/18 08/02/18 05:00 07:00 07:00 WBC 3.6 L D RBC 2.24 L Hgb 7.1 L Hct 20.8 L* MCV 92.9 MCH 31.7 MCHC 34.1 RDW 16.3 H Plt Count 30 L* MPV 10.0 Gran % 62.3 Lymph % (Auto) 18.6 L Mcpherson % (Auto) 13.8 H Eos % (Auto) 4.5 Baso % (Auto) 0.8 Gran # 2.21 Lymph # (Auto) 0.7 L Mcpherson # (Auto) 0.5 Eos # (Auto) 0.2 Baso # (Auto) 0.03 PT INR APTT Fibrinogen D-Dimer, Quantitative pCO2 30 L pO2 153.0 H HCO3 21.3 ABG pH 7.46 H ABG Total CO2 22.2 ABG O2 Saturation 99.8 H ABG O2 Content 11.6 L ABG Base Excess -2.1 L ABG Hemoglobin 8.3 L ABG Carboxyhemoglobin 2.1 H POC ABG HHb (Measured) 0.2 ABG Methemoglobin 1.2 ABG O2 Capacity 11.6 L Hgb O2 Saturation 96.6 FiO2 40.0 Sodium 144 Potassium 3.1 L Chloride 120 H Carbon Dioxide 24 Anion Gap 3 L BUN 27 H Creatinine 0.7 Est GFR ( Amer) > 60 Est GFR (Non-Af Amer) > 60 Random Glucose 110 Calcium 7.9 L Total Bilirubin 3.7 H AST 85 H D ALT 48 Alkaline Phosphatase 61 Total Protein 4.3 L Albumin 1.9 L Globulin 2.4 Albumin/Globulin Ratio 0.8 L Blood Type Antibody Screen Crossmatch BBK History Checked 08/02/18 07:00 WBC RBC Hgb Hct MCV MCH MCHC RDW Plt Count MPV Gran % Lymph % (Auto) Mcpherson % (Auto) Eos % (Auto) Baso % (Auto) Gran # Lymph # (Auto) Mcpherson # (Auto) Eos # (Auto) Baso # (Auto) PT 18.9 H INR 1.63 APTT 34.7 Fibrinogen 135 L D-Dimer, Quantitative 1364 H pCO2 pO2 HCO3 ABG pH ABG Total CO2 ABG O2 Saturation ABG O2 Content ABG Base Excess ABG Hemoglobin ABG Carboxyhemoglobin POC ABG HHb (Measured) ABG Methemoglobin ABG O2 Capacity Hgb O2 Saturation FiO2 Sodium Potassium Chloride Carbon Dioxide Anion Gap BUN Creatinine Est GFR ( Amer) Est GFR (Non-Af Amer) Random Glucose Calcium Total Bilirubin AST ALT Alkaline Phosphatase Total Protein Albumin Globulin Albumin/Globulin Ratio Blood Type Antibody Screen Crossmatch BBK History Checked Review of Systems - Review of Systems Review of Systems: 12 point ROS unable to be obtained due to sedation. 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 S/p 2 units PRBC and 1 unit PLT yesterday. Plan to transfuse 2 units PRBC, 1 FFP, and 1 PLT today. Neuro: - Nonresponsive to painful or verbal stimuli, likely hepatic encephalopathic likely 2/2 ETOH cirrhosis. - 07/28/[address] w/o contrast: no acute intracranial abnormality. 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 - 07/31/[address] head ordered due to acute change in neuro function- unchanged - Keppra 1000 BID for seizure history, elevated random level at 59.2 - Ammonia level improved to 33, previously 93 - AAOx0, doesn't follow commands - Monitor neuro status. - Reorient patient as necessary. Heme/Onc: Aplastic anemia - H/H improved to 7.1 overnight. Plan to transfuse 2 units PRBC , f/u repeat CBC - RBC 2.24 - CBC q6h Thrombocytopenia - PLT count 30, Fibrinogen 135, D- dimer 1364 - Plan to transfuse 1 unit PLT today per Dr. Medellin recs verbally transmitted yesterday - PT/INR 18.9/1.63 - Plan to give 5 mg Vitamin K as well as 1 unit FFP today - Continue monitoring H/H CBC q6h - Hem/Onc consulted - Dr. Medellin - further recs appreciated. Sustained hypotension- improved - R-IJ Central line placed - BP stable overnight, off pressors GI: Dr. Vernon consulted - further recs appreciated. Colonoscopy planned once clinically stable. Hx of EtOH Cirrhosis, Ascites, colonic AVMs, esophageal varices banded in 2014 - Multiple tarry black BMs overnight - Lactuose dose decreased to 20 mg daily due tp 4 melanotic BMs in last 24 hours - S/p Octreotide drip x 72 hours per GI recs - 07/31/18 Bleeding scan shows collection in LUQ, likely active bleeding - 07/31/18 Flex Sig showed diffuse blood without obvious source - IR consulted - Dr. Wong- for Celiac, SMA and POOJA arteriograms. Prominent branch off celiac appeas to supply hyperemic area in splenic flexure. No extravasation. 07/29/18 Endoscopy showed moderate portal hypertensive gastropathy. 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 Grade 1 varices. - Continue Merrem 1 g q8 day #4 for 7 day course per ID - NPO - Protonix Cardio: - EKG done on admission shows: NSR at 95 bpm with prolonged QT interval, no ST elevations. - Trop 0.02 - Continue NS @ 100 cc/hr - Maintain MAP > 60. - Monitor for S/S, HD compromise. Pulm: - Pt unresponsive following sigmoidoscopy. Pt intubated by respiratory team with anesthesia at bedside. - Maintain O2 saturation >92%. - Vent settings: 40/5/14/400 Vent: protective lung ventilation strategy, aspiration precautions - 07/28/18 CXR:vascular markings but no consolidations - Elevate bed to 30 degrees /Nephro: Hypokalemia - repleted with 20 mEq x2 K-ryders, f/u repeat BMP - BUN/Cr stable - F/U UA - Good urine output - Continue monitoring. Pseudohypocalcemia - Replete electrolytes as needed. - Maintaineuvolemia. Endocrinology: - Random glucose:92, 101 - Maintain euglycemia 140-180. ID: - ID consulted - Dr. Perez, ABx coverage and recs appreciated - Afebrile, no leukocytosis - F/u ID recs - Monitor for signs and symptoms of infection. DVT prophylaxis:SCDS, holding pharm prophylaxis in light of melena GI prophylaxis:Protonix 40 IVP daily Patient seen, case reviewed and plan approved by Dr. Orosco. Mehul Campbell, PGY-1 <Dylan Orosco - Last Filed: 08/02/18 12:00> CCU Objective - Vital Signs / Intake & Output Vital Signs (Last 4 hours): Vital Signs Temp Pulse Resp BP Pulse Ox 08/02/18 10:45 97.5 F L 79 108/65 100 08/02/18 10:35 97.5 F L 78 14 108/65 08/02/18 10:30 97.9 F 79 102/64 100 08/02/18 10:15 97.7 F 82 107/60 100 08/02/18 10:00 97.7 F 82 105/60 100 08/02/18 09:50 97.7 F 77 14 103/58 L 08/02/18 09:45 97.7 F 81 103/58 L 100 08/02/18 09:32 97.7 F 81 14 108/61 08/02/18 09:30 97.7 F 82 108/61 100 08/02/18 09:15 97.5 F L 82 110/61 100 08/02/18 09:00 97.5 F L 82 107/61 99 08/02/18 08:45 97.5 F L 84 100/57 L 98 08/02/18 08:30 97.5 F L 84 99/57 L 98 08/02/18 08:15 97.5 F L 82 102/55 L 98 08/02/18 08:00 97.5 F L 81 105/57 L 98 Intake and Output (Last 8hrs): Intake & Output 08/01/18 08/02/18 08/02/18 22:59 06:59 14:59 Intake Total 1296 1658 100 Output Total 370 325 Balance 926 1333 100 Weight 148 lb 9.6 oz Intake: IV 1296 1658 100 Right Internal Jugular 1196 1558 Blood Product 0 Apheresis Lrbc As-3 Unit 0 [id number] Output: Urine 320 325 Urethral (Donahue) 320 325 Stool 50 Other: # Bowel Movements 1 2 - Medications Active Medications: Active Medications Generic Name Dose Route Start Last Admin Trade Name Freq PRN Reason Stop Dose Admin Acetaminophen 650 mg 07/30/18 09:02 07/30/18 14:32 Tylenol 325mg Tab PO 650 mg Q6H PRN Administration Headache Guaifenesin/Dextromethorphan 5 ml 07/30/18 09:04 Robitussin Dm PO Q4H PRN Cough Meropenem 1 gm in 50 mls @ 100 mls/hr 07/30/18 11:16 08/02/18 07:05 Merrem Iv 1 Gm Premix IVPB 08/08/18 11:17 100 mls/hr Q8 STEVEN Administration Protocol Levetiracetam 100 mls @ 460 mls/hr 07/31/18 11:00 08/02/18 10:40 Keppra 1000mg/100ml Ns IV 460 mls/hr Q12 STEVEN Administration Propofol 1,000 mg in 100 mls @ 1.905 mls/hr 07/31/18 15:25 08/02/18 11:17 Diprivan IV 30 mcg/kg/min .Q24H PRN 11.431 mls/hr TITRATE PER MD ORDER Administration Protocol 5 MCG/KG/MIN Sodium Chloride 1,000 mls @ 100 mls/hr 08/01/18 10:45 08/02/18 07:06 Sodium Chloride 0.9% IV 100 mls/hr .Q10H STEVEN Administration Potassium Chloride 20 meq in 100 mls @ 50 mls/hr 08/02/18 10:15 08/02/18 10:42 Potassium Chloride 20 Meq/100 Ml IVPB 08/02/18 14:14 50 mls/hr Q2H STEVEN Administration Lactulose 20 gm 08/03/18 10:00 Enulose PO DAILY STEVEN Metoprolol Succinate 25 mg 07/29/18 11:00 07/29/18 12:41 Toprol Xl PO Not Given DAILY STEVEN Morphine Sulfate 2 mg 07/31/18 16:08 Morphine IVP Q3H PRN Pain, severe (8-10) Pantoprazole Sodium 40 mg 07/31/18 10:47 08/02/18 10:40 Protonix Inj IVP 40 mg DAILY STEVEN Administration - Patient Studies Lab Studies: Microbiology Studies 07/30/18 17:31 Blood Culture - Preliminary Blood NO GROWTH AFTER 48 HOURS 07/30/18 17:31 Blood Culture - Preliminary Blood NO GROWTH AFTER 48 HOURS Lab Studies 08/02/18 08/02/18 08/02/18 Range/Units 07:00 07:00 07:00 WBC 3.6 L D (4.5-11.0) 10^3/uL RBC 2.24 L (3.5-6.1) 10^6/uL Hgb 7.1 L (12.0-16.0) g/dL Hct 20.8 L* (36.0-48.0) % MCV 92.9 (80.0-105.0) fl MCH 31.7 (25.0-35.0) pg MCHC 34.1 (31.0-37.0) g/dl RDW 16.3 H (11.5-14.5) % Plt Count 30 L* (120.0-450.0) 10^3/uL MPV 10.0 (7.0-11.0) fl Gran % 62.3 (50.0-68.0) % Lymph % (Auto) 18.6 L (22.0-35.0) % Mcpherson % (Auto) 13.8 H (1.0-6.0) % Eos % (Auto) 4.5 (1.5-5.0) % Baso % (Auto) 0.8 (0.0-3.0) % Gran # 2.21 (1.4-6.5) Lymph # (Auto) 0.7 L (1.2-3.4) Mcpherson # (Auto) 0.5 (0.1-0.6) Eos # (Auto) 0.2 (0.0-0.7) Baso # (Auto) 0.03 (0.0-2.0) K/mm3 Platelet Evaluation Low (NORMAL) PT 18.9 H (9.4-12.5) SECONDS INR 1.63 APTT 34.7 (25.1-36.5) Seconds Fibrinogen 135 L (200-400) mg/dl D-Dimer, Quantitative 1364 H (0-243) ng/mlDDU pCO2 (35-45) mm/Hg pO2 (80-100) mm/Hg HCO3 (21-28) mmol/L ABG pH (7.35-7.45) ABG Total CO2 (22-28) mmol.L ABG O2 Saturation (95-98) % ABG O2 Content (15-23) ML/dl ABG Base Excess (-2.0-3.0) mmol/L ABG Hemoglobin (11.7-17.4) g/dL ABG Carboxyhemoglobin (0.5-1.5) % POC ABG HHb (Measured) (0-5) % ABG Methemoglobin (0.0-3.0) % ABG O2 Capacity (16-24) mL/dl Hgb O2 Saturation (95.0-98.0) % FiO2 % Sodium 144 (132-148) mmol/L Potassium 3.1 L (3.6-5.0) mmol/L Chloride 120 H (98-107) mmol/L Carbon Dioxide 24 (21-33) mmol/L Anion Gap 3 L (10-20) BUN 27 H (7-21) mg/dL Creatinine 0.7 (0.7-1.2) mg/dl Est GFR ( Amer) > 60 Est GFR (Non-Af Amer) > 60 Random Glucose 110 (70-110) mg/dL Calcium 7.9 L (8.4-10.5) mg/dL Total Bilirubin 3.7 H (0.2-1.3) mg/dL AST 85 H D (14-36) U/L ALT 48 (7-56) U/L Alkaline Phosphatase 61 (38-126) U/L Total Protein 4.3 L (5.8-8.3) g/dL Albumin 1.9 L (3.0-4.8) g/dL Globulin 2.4 gm/dL Albumin/Globulin Ratio 0.8 L (1.1-1.8) Blood Type Antibody Screen Crossmatch BBK History Checked 08/02/18 08/01/18 08/01/18 Range/Units 05:00 23:00 15:46 WBC 4.7 5.8 D (4.5-11.0) 10^3/uL RBC 2.23 L 2.33 L (3.5-6.1) 10^6/uL Hgb 7.0 L 7.2 L (12.0-16.0) g/dL Hct 20.5 L* 21.1 L (36.0-48.0) % MCV 91.9 90.6 (80.0-105.0) fl MCH 31.4 30.9 (25.0-35.0) pg MCHC 34.1 34.1 (31.0-37.0) g/dl RDW 15.8 H 15.1 H (11.5-14.5) % Plt Count 35 L* 48 L* (120.0-450.0) 10^3/uL MPV 9.7 9.8 (7.0-11.0) fl Gran % 69.0 H 76.2 H (50.0-68.0) % Lymph % (Auto) 15.0 L 13.2 L (22.0-35.0) % Mcpherson % (Auto) 12.4 H 8.7 H (1.0-6.0) % Eos % (Auto) 3.0 1.4 L (1.5-5.0) % Baso % (Auto) 0.6 0.5 (0.0-3.0) % Gran # 3.22 4.39 (1.4-6.5) Lymph # (Auto) 0.7 L 0.8 L (1.2-3.4) Mcpherson # (Auto) 0.6 0.5 (0.1-0.6) Eos # (Auto) 0.1 0.1 (0.0-0.7) Baso # (Auto) 0.03 0.03 (0.0-2.0) K/mm3 Platelet Evaluation (NORMAL) PT (9.4-12.5) SECONDS INR APTT (25.1-36.5) Seconds Fibrinogen (200-400) mg/dl D-Dimer, Quantitative (0-243) ng/mlDDU pCO2 30 L (35-45) mm/Hg pO2 153.0 H (80-100) mm/Hg HCO3 21.3 (21-28) mmol/L ABG pH 7.46 H (7.35-7.45) ABG Total CO2 22.2 (22-28) mmol.L ABG O2 Saturation 99.8 H (95-98) % ABG O2 Content 11.6 L (15-23) ML/dl ABG Base Excess -2.1 L (-2.0-3.0) mmol/L ABG Hemoglobin 8.3 L (11.7-17.4) g/dL ABG Carboxyhemoglobin 2.1 H (0.5-1.5) % POC ABG HHb (Measured) 0.2 (0-5) % ABG Methemoglobin 1.2 (0.0-3.0) % ABG O2 Capacity 11.6 L (16-24) mL/dl Hgb O2 Saturation 96.6 (95.0-98.0) % FiO2 40.0 % Sodium (132-148) mmol/L Potassium (3.6-5.0) mmol/L Chloride (98-107) mmol/L Carbon Dioxide (21-33) mmol/L Anion Gap (10-20) BUN (7-21) mg/dL Creatinine (0.7-1.2) mg/dl Est GFR ( Amer) Est GFR (Non-Af Amer) Random Glucose (70-110) mg/dL Calcium (8.4-10.5) mg/dL Total Bilirubin (0.2-1.3) mg/dL AST (14-36) U/L ALT (7-56) U/L Alkaline Phosphatase (38-126) U/L Total Protein (5.8-8.3) g/dL Albumin (3.0-4.8) g/dL Globulin gm/dL Albumin/Globulin Ratio (1.1-1.8) Blood Type Antibody Screen Crossmatch BBK History Checked 08/01/18 07/29/18 Range/Units 07:45 10:30 WBC (4.5-11.0) 10^3/uL RBC (3.5-6.1) 10^6/uL Hgb (12.0-16.0) g/dL Hct (36.0-48.0) % MCV (80.0-105.0) fl MCH (25.0-35.0) pg MCHC (31.0-37.0) g/dl RDW (11.5-14.5) % Plt Count (120.0-450.0) 10^3/uL MPV (7.0-11.0) fl Gran % (50.0-68.0) % Lymph % (Auto) (22.0-35.0) % Mcpherson % (Auto) (1.0-6.0) % Eos % (Auto) (1.5-5.0) % Baso % (Auto) (0.0-3.0) % Gran # (1.4-6.5) Lymph # (Auto) (1.2-3.4) Mcpherson # (Auto) (0.1-0.6) Eos # (Auto) (0.0-0.7) Baso # (Auto) (0.0-2.0) K/mm3 Platelet Evaluation (NORMAL) PT (9.4-12.5) SECONDS INR APTT (25.1-36.5) Seconds Fibrinogen (200-400) mg/dl D-Dimer, Quantitative (0-243) ng/mlDDU pCO2 (35-45) mm/Hg pO2 (80-100) mm/Hg HCO3 (21-28) mmol/L ABG pH (7.35-7.45) ABG Total CO2 (22-28) mmol.L ABG O2 Saturation (95-98) % ABG O2 Content (15-23) ML/dl ABG Base Excess (-2.0-3.0) mmol/L ABG Hemoglobin (11.7-17.4) g/dL ABG Carboxyhemoglobin (0.5-1.5) % POC ABG HHb (Measured) (0-5) % ABG Methemoglobin (0.0-3.0) % ABG O2 Capacity (16-24) mL/dl Hgb O2 Saturation (95.0-98.0) % FiO2 % Sodium (132-148) mmol/L Potassium (3.6-5.0) mmol/L Chloride (98-107) mmol/L Carbon Dioxide (21-33) mmol/L Anion Gap (10-20) BUN (7-21) mg/dL Creatinine (0.7-1.2) mg/dl Est GFR ( Amer) Est GFR (Non-Af Amer) Random Glucose (70-110) mg/dL Calcium (8.4-10.5) mg/dL Total Bilirubin (0.2-1.3) mg/dL AST (14-36) U/L ALT (7-56) U/L Alkaline Phosphatase (38-126) U/L Total Protein (5.8-8.3) g/dL Albumin (3.0-4.8) g/dL Globulin gm/dL Albumin/Globulin Ratio (1.1-1.8) Blood Type O POSITIVE Antibody Screen Negative Crossmatch See Detail See Detail BBK History Checked Patient has bt Laboratory Results - last 24 hr 07/29/18 08/01/18 08/01/18 10:30 07:45 15:46 WBC 5.8 D RBC 2.33 L Hgb 7.2 L Hct 21.1 L MCV 90.6 MCH 30.9 MCHC 34.1 RDW 15.1 H Plt Count 48 L* MPV 9.8 Gran % 76.2 H Lymph % (Auto) 13.2 L Mcpherson % (Auto) 8.7 H Eos % (Auto) 1.4 L Baso % (Auto) 0.5 Gran # 4.39 Lymph # (Auto) 0.8 L Mcpherson # (Auto) 0.5 Eos # (Auto) 0.1 Baso # (Auto) 0.03 Platelet Evaluation PT INR APTT Fibrinogen D-Dimer, Quantitative pCO2 pO2 HCO3 ABG pH ABG Total CO2 ABG O2 Saturation ABG O2 Content ABG Base Excess ABG Hemoglobin ABG Carboxyhemoglobin POC ABG HHb (Measured) ABG Methemoglobin ABG O2 Capacity Hgb O2 Saturation FiO2 Sodium Potassium Chloride Carbon Dioxide Anion Gap BUN Creatinine Est GFR ( Amer) Est GFR (Non-Af Amer) Random Glucose Calcium Total Bilirubin AST ALT Alkaline Phosphatase Total Protein Albumin Globulin Albumin/Globulin Ratio Blood Type O POSITIVE Antibody Screen Negative Crossmatch See Detail See Detail BBK History Checked Patient has bt 08/01/18 08/02/18 08/02/18 23:00 05:00 07:00 WBC 4.7 RBC 2.23 L Hgb 7.0 L Hct 20.5 L* MCV 91.9 MCH 31.4 MCHC 34.1 RDW 15.8 H Plt Count 35 L* MPV 9.7 Gran % 69.0 H Lymph % (Auto) 15.0 L Mcpherson % (Auto) 12.4 H Eos % (Auto) 3.0 Baso % (Auto) 0.6 Gran # 3.22 Lymph # (Auto) 0.7 L Mcpherson # (Auto) 0.6 Eos # (Auto) 0.1 Baso # (Auto) 0.03 Platelet Evaluation PT INR APTT Fibrinogen D-Dimer, Quantitative pCO2 30 L pO2 153.0 H HCO3 21.3 ABG pH 7.46 H ABG Total CO2 22.2 ABG O2 Saturation 99.8 H ABG O2 Content 11.6 L ABG Base Excess -2.1 L ABG Hemoglobin 8.3 L ABG Carboxyhemoglobin 2.1 H POC ABG HHb (Measured) 0.2 ABG Methemoglobin 1.2 ABG O2 Capacity 11.6 L Hgb O2 Saturation 96.6 FiO2 40.0 Sodium 144 Potassium 3.1 L Chloride 120 H Carbon Dioxide 24 Anion Gap 3 L BUN 27 H Creatinine 0.7 Est GFR ( Amer) > 60 Est GFR (Non-Af Amer) > 60 Random Glucose 110 Calcium 7.9 L Total Bilirubin 3.7 H AST 85 H D ALT 48 Alkaline Phosphatase 61 Total Protein 4.3 L Albumin 1.9 L Globulin 2.4 Albumin/Globulin Ratio 0.8 L Blood Type Antibody Screen Crossmatch BBK History Checked 08/02/18 08/02/18 07:00 07:00 WBC 3.6 L D RBC 2.24 L Hgb 7.1 L Hct 20.8 L* MCV 92.9 MCH 31.7 MCHC 34.1 RDW 16.3 H Plt Count 30 L* MPV 10.0 Gran % 62.3 Lymph % (Auto) 18.6 L Mcpherson % (Auto) 13.8 H Eos % (Auto) 4.5 Baso % (Auto) 0.8 Gran # 2.21 Lymph # (Auto) 0.7 L Mcpherson # (Auto) 0.5 Eos # (Auto) 0.2 Baso # (Auto) 0.03 Platelet Evaluation Low PT 18.9 H INR 1.63 APTT 34.7 Fibrinogen 135 L D-Dimer, Quantitative 1364 H pCO2 pO2 HCO3 ABG pH ABG Total CO2 ABG O2 Saturation ABG O2 Content ABG Base Excess ABG Hemoglobin ABG Carboxyhemoglobin POC ABG HHb (Measured) ABG Methemoglobin ABG O2 Capacity Hgb O2 Saturation FiO2 Sodium Potassium Chloride Carbon Dioxide Anion Gap BUN Creatinine Est GFR ( Amer) Est GFR (Non-Af Amer) Random Glucose Calcium Total Bilirubin AST ALT Alkaline Phosphatase Total Protein Albumin Globulin Albumin/Globulin Ratio Blood Type Antibody Screen Crossmatch BBK History Checked Critical Care Progress Note - Nutrition Nutrition: Nutrition Category Date Time Status NPO Diet [DIET] Diets 07/31/18 Breakfast Ordered Assessment/Plan - Assessment and Plan (Free Text) Assessment: Patient seen and examined on rounds, with resident, agree with note with following additions/exceptions: Patient is 63yo female with PMHx of alcohol cirrhosis, esophageal varices, thrombocytopenia, spinal stenosis, arthritis, DJD, 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, seizure, peptic ulcer disease, admitted with GIB, likely lower GIB Patient underwent EGD (no active bleeding), and flex sig (active bleeding noted) Pt also went unsuccessful IR angiography, no active extravasation noted, no embolization Currently afebrile, HD stable, NOT on Vasopressor support, comfortable in NAD, intubated, sedated GI and surgery following HH 7.0 today, plts 30, to receive 2u PRBC, and 1u Plts, 1u FFP, Vit K IV 5mg x 1 Acute GIB Cirrhosis EtOH abuse Thrombocytopenia Hx CVA Liver disease Coagulopathy Recommend: - cont with vent support, low tidal vol ventilation, daily sedation vacation CPAP trials - Abx as per ID - IVF - transfuse 2u PRBC, 1u PLts, 1u FFP, - CBC q6hr - PPI IV BID - Vit K IV 5mg x 1 - Lactulose, titrate to 2 BMs per day - GI ppx - DVT ppx - Monitor in MICU Patient remains critical, guarded prognosis Full Code Critical care time 30 minutes
[2018-08-02] MEDS ORDERED: Phytonadione 5 MG in Sodium Chloride 0.9% 50 ML IV ONE (10:28)
[2018-08-02] MEDS: levETIRAcetam 1000mg/100ml NS 100 ML IV SCH ×2 (10:40→21:08)
--- NOTE | 2018-08-02 11:11 | PN ---
DATE: 08/02/2018 This visit is for Dr. Vernon, Dr. Camargo covering. SUBJECTIVE: The patient remains in bed, intubated, sedated on propofol. She had several bloody bowel movements overnight. PHYSICAL EXAMINATION: VITAL SIGNS: Reveal temperature of 98.4, blood pressure 103/59, heart rate 91. HEENT: Sclerae to be white. Conjunctivae pale. NECK: Supple. She has an endotracheal tube in her mouth. CHEST: Distant breath sounds. HEART: Regular rate and rhythm. ABDOMEN: Soft, nontender. EXTREMITIES: Show no edema. LABORATORY DATA: Hemoglobin of 7.1, white blood cell count 3.6, platelet count 30,000, potassium 3.1, BUN 27, creatinine 0.7. 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 She is pancytopenic including a low platelet count. She is also coagulopathic. Her prognosis is extremely poor. RECOMMENDATIONS: 1. We will transfuse two more units of packed red blood cells. 2. The patient will probably need another colonoscopy for therapeutic purposes. 3. Dr. Vernon is to resume care of this patient in the morning. Cory Camargo MD
[2018-08-02 11:20] LABS: PLATELET ESTIMATE LOW (NORMAL)
--- NOTE | 2018-08-02 12:26 | PN ---
DATE: 08/02/2018 SUBJECTIVE: The patient is seen early this morning in 129, bed 3, remains intubated on a ventilator and overall poor condition. PHYSICAL EXAMINATION: VITAL SIGNS: Temperature is 97, blood pressure is 103/59, respiratory rate on the vent, heart rate of 91. HEENT: ET tube to be in place. NECK: Supple. LUNGS: Decreased breath sounds. HEART: Normal, S1 and S2. ABDOMEN: Soft, nontender. LABORATORY DATA: Examination reveals white count of 3.6, hemoglobin of 7, and platelets of 330. Chemistries reveal BUN of 27, creatinine is 0.7. Microbiology reveals the blood cultures are negative, urine cultures are negative. Nares are not detected. ASSESSMENT AND PLAN: A 63-year-old white female with systemic inflammatory response syndrome due to acute gastrointestinal bleeding, esophageal varices, liver cirrhosis, alcohol abuse with respiratory failure, intubated on a ventilator who is ALLERGIC TO PENICILLIN. Currently on meropenem with acute gastrointestinal bleed day #4, would complete seven days of meropenem, today is day #4 of seven days. Thus far, the cultures have reported to be negative, blood, urine, and nasal. Methicillin-resistant Staphylococcus aureus screen is negative. We will follow with you. Yunior Jasso MD
[2018-08-02 16:56] LABS: BASO # 0.01 K/mm3 (0.0-2.0); BASO % 0.2 % (0.0-3.0); EOS # 0.1 (0.0-0.7); EOS % 2.1 % (1.5-5.0); GRAN # 3.51 (1.4-6.5); GRAN % 81.8 % (50.0-68.0); HEMOGLOBIN 9.6 g/dL (12.0-16.0); LYMPH # 0.4 (1.2-3.4); LYMPH % 8.2 % (22.0-35.0); MEAN CORPUSCULAR HEMOGLOBIN 30.9 pg (25.0-35.0); MEAN CORPUSCULAR HGB CONC 33.9 g/dl (31.0-37.0); MEAN PLATELET VOLUME 9.4 fl (7.0-11.0); MONO # 0.3 (0.1-0.6); MONO % 7.7 % (1.0-6.0); RBC 3.11 10^6/uL (3.5-6.1); RED CELL DISTRIBUTION WIDTH 17.2 % (11.5-14.5); WHITE BLOOD COUNT 4.3 10^3/uL (4.5-11.0)
[2018-08-02 16:59] LABS: PLATELET COUNT 39 10^3/uL (120.0-450.0)
[2018-08-02 17:08] LABS: BLOOD UREA NITROGEN 27 mg/dL (7-21); CALCIUM 8.2 mg/dL (8.4-10.5); GFR NON-AFRICAN AMERICAN > 60; HDL CHOLESTEROL 30 mg/dL (29-60)
[2018-08-02 17:19] LABS: LDL CHOLESTEROL 48 mg/dL (0-129)
[2018-08-02] MEDS ORDERED: Potassium Chloride 40 mEq/30 ml LIQ UD PO STA (18:50)
--- NOTE | 2018-08-02 20:48 | PN ---
DATE: 08/02/2018 DAILY PROGRESS NOTE SUBJECTIVE: The patient was seen this Friday morning in intensive care, CCU bed 3. She is in bed, intubated and sedated with blood being transfused once again. Case was discussed with her nurse and with the ICU resident. She has been intubated now some approximately 48 hours since after sigmoidoscopy. Upper endoscopy was nonrevealing. Sigmoidoscopy showed blood in the descending colon. Bleeding scan which showed a blood in the splenic flexure and Interventional Radiology was not able to identify bleeding source to be embolized. We will continue to follow serial H and H. The patient has now received 7 units of packed red cells. Surgical team is on consult as well as GI and IR. Abilio Bass MD
--- NOTE | 2018-08-02 22:59 | CP.PCM.PN ---
Subjective - Date & Time of Evaluation Date of Evaluation: 08/01/18 Time of Evaluation: 20:00 - Subjective Subjective: No acute changes ROS: unable to assess Objective - Vital Signs/Intake and Output Vital Signs (last 24 hours): Temp Pulse Resp BP Pulse Ox 98.4 F 79 14 121/73 99 08/02/18 18:15 08/02/18 18:15 08/02/18 11:15 08/02/18 18:15 08/02/18 18:15 Intake and Output: 08/02/18 08/03/18 18:59 06:59 Intake Total 1928 Output Total 400 Balance 1528 - Medications Medications: Current Medications Acetaminophen (Tylenol 325mg Tab) 650 mg PO Q6H PRN PRN Reason: Headache Last Admin: 07/30/18 14:32 Dose: 650 mg Guaifenesin/Dextromethorphan (Robitussin Dm) 5 ml PO Q4H PRN PRN Reason: Cough Meropenem (Merrem Iv 1 Gm Premix) 1 gm in 50 mls @ 100 mls/hr IVPB Q8 [facility]; Protocol Stop: 08/08/18 11:17 Last Admin: 08/02/18 21:09 Dose: 100 mls/hr Levetiracetam (Keppra 1000mg/100ml Ns) 100 mls @ 460 mls/hr IV Q12 [facility] Last Admin: 08/02/18 21:08 Dose: 460 mls/hr Propofol (Diprivan) 1,000 mg in 100 mls @ 1.905 mls/hr IV .Q24H PRN; Protocol PRN Reason: TITRATE PER MD ORDER Last Admin: 08/02/18 17:26 Dose: 30 mcg/kg/min, 11.431 mls/hr Sodium Chloride (Sodium Chloride 0.9%) 1,000 mls @ 100 mls/hr IV .Q10H [facility] Last Admin: 08/02/18 07:06 Dose: 100 mls/hr Metoprolol Succinate (Toprol Xl) 25 mg PO DAILY [facility] Last Admin: 07/29/18 12:41 Dose: Not Given Morphine Sulfate (Morphine) 2 mg IVP Q3H PRN PRN Reason: Pain, severe (8-10) Pantoprazole Sodium (Protonix Inj) 40 mg IVP DAILY [facility] Last Admin: 08/02/18 10:40 Dose: 40 mg - Labs Labs: 08/02/18 16:52 08/02/18 16:52 PT 18.9 SECONDS (9.4-12.5) H 08/02/18 07:00 INR 1.63 08/02/18 07:00 APTT 34.7 Seconds (25.1-36.5) 08/02/18 07:00 - Constitutional Appears: Cachectic, Chronically Ill, Other (intubated) - Respiratory Exam Respiratory Exam: absent: Accessory Muscle Use - Cardiovascular Exam Cardiovascular Exam: REGULAR RHYTHM, +S1, +S2. absent: Murmur - GI/Abdominal Exam GI & Abdominal Exam: Soft, Normal Bowel Sounds. absent: Tenderness - Extremities Exam Extremities Exam: Full ROM, Normal Capillary Refill, Normal Inspection. absent: Joint Swelling, Pedal Edema Assessment and Plan - Assessment and Plan (Free Text) Assessment: Ms. Collado jose juan 63 y/o woman with pmhx significant for ETOH induced cirhosis, esophageal varices, thrombocytopenia, DJD s/p left posterior CVA (03/2019) with right sided weakness; who presented with dizziness, hematuria. If evidence of bleeding would transfuse for plts <30. Repeat fibrinogen levels
--- NOTE | 2018-08-02 23:00 | CP.PCM.PN ---
Subjective - Date & Time of Evaluation Date of Evaluation: 08/02/18 Time of Evaluation: 18:00 - Subjective Subjective: No acute changes ROS: not able to assess Objective - Vital Signs/Intake and Output Vital Signs (last 24 hours): Temp Pulse Resp BP Pulse Ox 98.4 F 79 14 121/73 99 08/02/18 18:15 08/02/18 18:15 08/02/18 11:15 08/02/18 18:15 08/02/18 18:15 Intake and Output: 08/02/18 08/03/18 18:59 06:59 Intake Total 1928 Output Total 400 Balance 1528 - Medications Medications: Current Medications Acetaminophen (Tylenol 325mg Tab) 650 mg PO Q6H PRN PRN Reason: Headache Last Admin: 07/30/18 14:32 Dose: 650 mg Guaifenesin/Dextromethorphan (Robitussin Dm) 5 ml PO Q4H PRN PRN Reason: Cough Meropenem (Merrem Iv 1 Gm Premix) 1 gm in 50 mls @ 100 mls/hr IVPB Q8 [facility]; Protocol Stop: 08/08/18 11:17 Last Admin: 08/02/18 21:09 Dose: 100 mls/hr Levetiracetam (Keppra 1000mg/100ml Ns) 100 mls @ 460 mls/hr IV Q12 [facility] Last Admin: 08/02/18 21:08 Dose: 460 mls/hr Propofol (Diprivan) 1,000 mg in 100 mls @ 1.905 mls/hr IV .Q24H PRN; Protocol PRN Reason: TITRATE PER MD ORDER Last Admin: 08/02/18 17:26 Dose: 30 mcg/kg/min, 11.431 mls/hr Sodium Chloride (Sodium Chloride 0.9%) 1,000 mls @ 100 mls/hr IV .Q10H [facility] Last Admin: 08/02/18 07:06 Dose: 100 mls/hr Metoprolol Succinate (Toprol Xl) 25 mg PO DAILY [facility] Last Admin: 07/29/18 12:41 Dose: Not Given Morphine Sulfate (Morphine) 2 mg IVP Q3H PRN PRN Reason: Pain, severe (8-10) Pantoprazole Sodium (Protonix Inj) 40 mg IVP DAILY [facility] Last Admin: 08/02/18 10:40 Dose: 40 mg - Labs Labs: 08/02/18 16:52 08/02/18 16:52 PT 18.9 SECONDS (9.4-12.5) H 08/02/18 07:00 INR 1.63 08/02/18 07:00 APTT 34.7 Seconds (25.1-36.5) 08/02/18 07:00 - Constitutional Appears: Cachectic, Chronically Ill, Other (intubated) - Cardiovascular Exam Cardiovascular Exam: REGULAR RHYTHM, +S1, +S2. absent: Murmur - GI/Abdominal Exam GI & Abdominal Exam: Soft, Normal Bowel Sounds. absent: Tenderness - Extremities Exam Extremities Exam: Full ROM, Normal Capillary Refill, Normal Inspection. absent: Joint Swelling, Pedal Edema Assessment and Plan - Assessment and Plan (Free Text) Assessment: Ms. Collado jose juan 63 y/o woman with pmhx significant for ETOH induced cirhosis, esophageal varices, thrombocytopenia, DJD s/p left posterior CVA (03/2019) with right sided weakness; who presented with dizziness, hematuria. Patient's labs c/w possible chronic DIC If evidence of bleeding would transfuse for plts <30. consider transfusin 1-2 units of cyro and would repeat fibrinogen following day
[2018-08-03] MEDS: Propofol 10 mg/ml 1,000 MG/100 ML VIAL IV PRN ×2 (01:11→07:56)
[2018-08-03] MEDS: Sodium Chloride 0.9% 1,000 ML IV SCH ×3 (01:12→21:11)
[2018-08-03 01:21] LABS: BASO # 0.03 K/mm3 (0.0-2.0); BASO % 0.9 % (0.0-3.0); EOS # 0.1 (0.0-0.7); EOS % 2.8 % (1.5-5.0); GRAN # 2.23 (1.4-6.5); GRAN % 70.7 % (50.0-68.0); LYMPH # 0.4 (1.2-3.4); LYMPH % 12.3 % (22.0-35.0); MEAN CELL VOLUME 91.1 fl (80.0-105.0); MEAN CORPUSCULAR HEMOGLOBIN 30.9 pg (25.0-35.0); MEAN PLATELET VOLUME 9.9 fl (7.0-11.0); MONO # 0.4 (0.1-0.6); MONO % 13.3 % (1.0-6.0); RBC 2.91 10^6/uL (3.5-6.1); RED CELL DISTRIBUTION WIDTH 18.2 % (11.5-14.5); WHITE BLOOD COUNT 3.2 10^3/uL (4.5-11.0)
[2018-08-03 01:28] LABS: PLATELET COUNT 31 10^3/uL (120.0-450.0)
[2018-08-03 05:22] LABS: ARTERIAL BLOOD GAS HCO3 19.2 mmol/L (21-28); ARTERIAL BLOOD GAS HEMOGLOBIN 8.6 g/dL (11.7-17.4); ARTERIAL BLOOD GAS O2 CAPACITY 12.1 mL/dl (16-24); ARTERIAL BLOOD GAS O2 CONTENT 12.1 ML/dl (15-23); ARTERIAL BLOOD GAS O2 SAT 99.9 % (95-98); ARTERIAL BLOOD GAS PCO2 29 mm/Hg (35-45); ARTERIAL BLOOD GAS PH 7.43 (7.35-7.45); ARTERIAL BLOOD GAS TCO2 20.1 mmol.L (22-28)
[2018-08-03] MEDS: Meropenem IV 1 gm in NS 1 GM/50 ML BAG IVPB SCH ×3 (05:37→21:10)
[2018-08-03 06:35] LABS: INR 1.39; PROTHROMBIN TIME 16.1 SECONDS (9.4-12.5)
[2018-08-03 06:40] LABS: PLATELET ESTIMATE LOW (NORMAL)
[2018-08-03 07:20] LABS: BASO # 0.01 K/mm3 (0.0-2.0); BASO % 0.4 % (0.0-3.0); EOS # 0.1 (0.0-0.7); EOS % 3.9 % (1.5-5.0); GRAN # 1.91 (1.4-6.5); GRAN % 67.2 % (50.0-68.0); HEMOGLOBIN 9.1 g/dL (12.0-16.0); LYMPH # 0.5 (1.2-3.4); LYMPH % 17.6 % (22.0-35.0); MEAN CELL VOLUME 91.2 fl (80.0-105.0); MEAN CORPUSCULAR HEMOGLOBIN 30.7 pg (25.0-35.0); MEAN CORPUSCULAR HGB CONC 33.7 g/dl (31.0-37.0); MEAN PLATELET VOLUME 10.2 fl (7.0-11.0); MONO # 0.3 (0.1-0.6); MONO % 10.9 % (1.0-6.0); RBC 2.96 10^6/uL (3.5-6.1); RED CELL DISTRIBUTION WIDTH 18.8 % (11.5-14.5); WHITE BLOOD COUNT 2.8 10^3/uL (4.5-11.0)
[2018-08-03 07:36] LABS: PLATELET COUNT 32 10^3/uL (120.0-450.0)
[2018-08-03 08:19] LABS: ALB/GLOB RATIO 0.8 (1.1-1.8); ALBUMIN 2.2 g/dL (3.0-4.8); ALT/SGPT 58 U/L (7-56); AST/SGOT 134 U/L (14-36); BLOOD UREA NITROGEN 24 mg/dL (7-21); CALCIUM 8.3 mg/dL (8.4-10.5); GFR NON-AFRICAN AMERICAN > 60
--- NOTE | 2018-08-03 08:35 | CP.PCM.PN ---
<Sp Li - Last Filed: 08/03/18 17:58> Subjective - Date & Time of Evaluation Date of Evaluation: 08/03/18 Time of Evaluation: 08:00 - Subjective Subjective: PGY-4 GI Fellow Prog Note Pt lying in bed, sedated on vent when seen this AM. Small amount of dark stool in bag. Unable to obtain ROS due to clinical condition Objective - Vital Signs/Intake and Output Vital Signs (last 24 hours): Temp Pulse Resp BP Pulse Ox 96.8 F L 74 14 118/67 100 08/03/18 04:30 08/03/18 04:30 08/02/18 11:15 08/03/18 04:30 08/03/18 04:30 Intake and Output: 08/03/18 08/03/18 06:59 18:59 Intake Total 1658 100 Output Total 425 Balance 1233 100 - Medications Medications: Current Medications Acetaminophen (Tylenol 325mg Tab) 650 mg PO Q6H PRN PRN Reason: Headache Last Admin: 07/30/18 14:32 Dose: 650 mg Guaifenesin/Dextromethorphan (Robitussin Dm) 5 ml PO Q4H PRN PRN Reason: Cough Meropenem (Merrem Iv 1 Gm Premix) 1 gm in 50 mls @ 100 mls/hr IVPB Q8 [facility]EV[facility]; Protocol Stop: 08/08/18 11:17 Last Admin: 08/03/18 05:37 Dose: 100 mls/hr Levetiracetam (Keppra 1000mg/100ml Ns) 100 mls @ 460 mls/hr IV Q12 [facility] Last Admin: 08/02/18 21:08 Dose: 460 mls/hr Propofol (Diprivan) 1,000 mg in 100 mls @ 1.905 mls/hr IV .Q24H PRN; Protocol PRN Reason: TITRATE PER MD ORDER Last Admin: 08/03/18 07:56 Dose: 30 mcg/kg/min, 11.431 mls/hr Sodium Chloride (Sodium Chloride 0.9%) 1,000 mls @ 100 mls/hr IV .Q10H [facility] Last Admin: 08/03/18 01:12 Dose: 100 mls/hr Metoprolol Succinate (Toprol Xl) 25 mg PO DAILY [facility] Last Admin: 07/29/18 12:41 Dose: Not Given Morphine Sulfate (Morphine) 2 mg IVP Q3H PRN PRN Reason: Pain, severe (8-10) Pantoprazole Sodium (Protonix Inj) 40 mg IVP DAILY [facility] Last Admin: 08/02/18 10:40 Dose: 40 mg - Labs Labs: 08/03/18 07:00 08/03/18 06:14 PT 16.1 SECONDS (9.4-12.5) H 08/03/18 06:14 INR 1.39 08/03/18 06:14 APTT 34.7 Seconds (25.1-36.5) 08/02/18 07:00 - Constitutional Appears: Cachectic, Chronically Ill - Eye Exam Eye Exam: Conjunctival injection, Scleral icterus - ENT Exam ENT Exam: Mucous Membranes Dry. absent: Mucous Membranes Moist Additional comments: OG, ET tube in place - Respiratory Exam Respiratory Exam: absent: Accessory Muscle Use, Respiratory Distress Additional comments: Intubated on vent - GI/Abdominal Exam GI & Abdominal Exam: Distended, Soft, Normal Bowel Sounds. absent: Bruit, Firm, Guarding, Rigid, Tenderness Additional comments: Moderate distension limiting exam Assessment and Plan - Assessment and Plan (Free Text) Assessment: 63 y/o female with alcoholic cirrhosis, PUD admitted for rectal bleeding. # Hematochezia, acute blood loss anemia: Given unstable vitals, increase BUN, and h/o cirrhosis, upper source investigated emergently on 07/29/18 with EGD without signs of active nor recent bleed. Therefore, suspect related to lower source, possibly R sided pathology given dark red. Ongoing bleeding with positive bleeding scan with bleeding pooled in LUQ, CSPY to 110 without clear source but diffuse blood limiting view. # Decompensated EtOH Cirrhosis: MELD-Na 24 on admission. Sober at least 3 months since CVA. - EV, PHG: Seen on EGD in 2014 s/p banding, small EV and PHG on 07/29/18 - Ascites: Once vitals improve rec abd US, hold diuretics and BP meds due to hypotension/GIB - HE: Worse due to active GI Bleed, lactulose PO or MA - HCC: Overdue for screening # Chronic DIC: Hematology following. 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 No biopsies taken due to coagulopathy/hemodynamic instability. 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 No signs of bleeding. Needs outpatient EUS. # H/o Colonic AVM, Diverticulosis # H/o CVA, seizure -EGD 06/2015: large esophageal varices (banded), salmon-colored mucose suspicious for martinez's esophagus -Last CSPY 06/2015: single non-bleeding colonic angiodysplastic lesion in cecum, one 7mm polyp sigmoid colon, diverticulosis in sigmoid colon, internal hemorrhoids Plan: - Colonoscopy 07/31/18 to about 110 cm with blood throughout limiting view and unable to locate specific source of bleed. Ultimately, perhaps related to diverticular as many seen but all were full of blood - IR consulted, Angio w/o active bleed - Gen Surgery consulted - Chronic DIC? Hematology following - On Meropenem per ID, agree for bacteremia in cirrhotic with GI bleed - PPI IV BID - Hold diuretics and BP meds due to hypotension/GIB - Will need outpatient EGD+EUS to evaluate Martinez's and possible duodenal varix should she improve clinically - Consider Colonoscopy on 08/05/18 Pt seen and examined with Dr. Vernon; please see attestation for further recs/changes. <Jean-Claude Vernon V - Last Filed: 08/03/18 23:57> Objective - Vital Signs/Intake and Output Vital Signs (last 24 hours): Temp Pulse Resp BP Pulse Ox 97.2 F L 76 17 107/63 96 08/03/18 18:19 08/03/18 18:19 08/03/18 18:15 08/03/18 18:15 08/03/18 18:19 Intake and Output: 08/03/18 08/04/18 18:59 06:59 Intake Total 1303 Output Total 650 Balance 653 - Medications Medications: Current Medications Guaifenesin/Dextromethorphan (Robitussin Dm) 5 ml PO Q4H PRN PRN Reason: Cough Meropenem (Merrem Iv 1 Gm Premix) 1 gm in 50 mls @ 100 mls/hr IVPB Q8 [facility]; Protocol Stop: 08/08/18 11:17 Last Admin: 08/03/18 21:10 Dose: 100 mls/hr Levetiracetam (Keppra 1000mg/100ml Ns) 100 mls @ 460 mls/hr IV Q12 [facility] Last Admin: 08/03/18 09:12 Dose: 460 mls/hr Sodium Chloride (Sodium Chloride 0.9%) 1,000 mls @ 100 mls/hr IV .Q10H [facility] Last Admin: 08/03/18 21:11 Dose: 100 mls/hr Lactulose (Enulose) 20 gm NG BID [facility] Last Admin: 08/03/18 18:11 Dose: 20 gm Metoprolol Succinate (Toprol Xl) 25 mg PO DAILY [facility] Last Admin: 07/29/18 12:41 Dose: Not Given Morphine Sulfate (Morphine) 2 mg IVP Q3H PRN PRN Reason: Pain, severe (8-10) Pantoprazole Sodium (Protonix Inj) 40 mg IVP DAILY [facility] Last Admin: 08/03/18 09:12 Dose: 40 mg - Labs Labs: 08/03/18 07:00 08/03/18 06:14 PT 16.1 SECONDS (9.4-12.5) H 08/03/18 06:14 INR 1.39 08/03/18 06:14 APTT 34.7 Seconds (25.1-36.5) 08/02/18 07:00 Attending/Attestation - Attestation I have personally seen and examined this patient.: Yes I have fully participated in the care of the patient.: Yes I have reviewed all pertinent clinical information, including history, physical exam and plan: Yes Notes (Text): This is an addendum to GI progress report dictated by the GI Fellow. The patient was seen and examined earlier. Medical records, lab studies, imagings were reviewed. Last 24 hours events reviewed. Agreed with the above treatment plan as outlined in GI Fellow 's notes with the addition of the following 08/03/18 23:57
--- NOTE | 2018-08-03 09:04 | CP.PCM.PN ---
Subjective - Date & Time of Evaluation Date of Evaluation: 08/03/18 Time of Evaluation: 09:01 - Subjective Subjective: Alma Abbott, PGY-1, ICU Progress Note for Dr. Orosco Patient seen and evaluated at bedside. Patient had no significant overnight e vents. Patient is currently intubated and on the mechanical ventilator with settings of TV: 400, RR: 14, PEEP: 5, and FiO2 of 40%. Patient is currently on IV NS at 100 cc/hr and propofol at 34.56 mcg/kg/min. 12-point ROS could not be evaluated due to patient's intubated status. Objective - Vital Signs/Intake and Output Vital Signs (last 24 hours): Temp Pulse Resp BP Pulse Ox 96.8 F L 74 14 118/67 100 08/03/18 04:30 08/03/18 04:30 08/02/18 11:15 08/03/18 04:30 08/03/18 04:30 Intake and Output: 08/03/18 08/03/18 06:59 18:59 Intake Total 1658 100 Output Total 425 Balance 1233 100 - Medications Medications: Current Medications Acetaminophen (Tylenol 325mg Tab) 650 mg PO Q6H PRN PRN Reason: Headache Last Admin: 07/30/18 14:32 Dose: 650 mg Guaifenesin/Dextromethorphan (Robitussin Dm) 5 ml PO Q4H PRN PRN Reason: Cough Meropenem (Merrem Iv 1 Gm Premix) 1 gm in 50 mls @ 100 mls/hr IVPB Q8 [facility]; Protocol Stop: 08/08/18 11:17 Last Admin: 08/03/18 05:37 Dose: 100 mls/hr Levetiracetam (Keppra 1000mg/100ml Ns) 100 mls @ 460 mls/hr IV Q12 [facility] Last Admin: 08/02/18 21:08 Dose: 460 mls/hr Propofol (Diprivan) 1,000 mg in 100 mls @ 1.905 mls/hr IV .Q24H PRN; Protocol PRN Reason: TITRATE PER MD ORDER Last Admin: 08/03/18 07:56 Dose: 30 mcg/kg/min, 11.431 mls/hr Sodium Chloride (Sodium Chloride 0.9%) 1,000 mls @ 100 mls/hr IV .Q10H [facility] Last Admin: 08/03/18 01:12 Dose: 100 mls/hr Metoprolol Succinate (Toprol Xl) 25 mg PO DAILY [facility] Last Admin: 07/29/18 12:41 Dose: Not Given Morphine Sulfate (Morphine) 2 mg IVP Q3H PRN PRN Reason: Pain, severe (8-10) Pantoprazole Sodium (Protonix Inj) 40 mg IVP DAILY [facility] Last Admin: 08/02/18 10:40 Dose: 40 mg - Labs Labs: 08/03/18 07:00 08/03/18 06:14 PT 16.1 SECONDS (9.4-12.5) H 08/03/18 06:14 INR 1.39 08/03/18 06:14 APTT 34.7 Seconds (25.1-36.5) 08/02/18 07:00 - Constitutional Appears: Well, Non-toxic, No Acute Distress, Other (intubated) - Head Exam Head Exam: ATRAUMATIC, NORMAL INSPECTION, NORMOCEPHALIC - Eye Exam Eye Exam: PERRL - ENT Exam ENT Exam: Mucous Membranes Moist Additional comments: dentition poor - Respiratory Exam Respiratory Exam: Clear to Ausculation Bilateral, NORMAL BREATHING PATTERN Additional comments: currently intubated. ET tube secured and in place - Cardiovascular Exam Cardiovascular Exam: REGULAR RHYTHM, RRR - GI/Abdominal Exam GI & Abdominal Exam: Distended (mild), Soft, Hypoactive Bowel Sounds - Extremities Exam Extremities Exam: Normal Capillary Refill, Normal Inspection, Pedal Edema (+1/2) - Neurological Exam Additional comments: AAOx0 currently. unresponsive as patient is on propofol sedation - Skin Skin Exam: Dry, Intact, Normal Color Assessment and Plan - Assessment and Plan (Free Text) Assessment: 63 year old female with past medical history of alcoholic cirrhosis, esophageal varices, PUD, spinal stenosis, arthritis, DJD, CVA, seizure, and osteoporosis presents with multiple episodes of bloody bowel movements. As per bleeding scan and Vascular procedure, bleed is likely from celiac axis at patent splenic flexure of colon. GI Bleed of unknown source Hypoxic respiratory failure Alcoholic Cirrhosis DJD History of CVA History of seizure Osteoporosis Plan: Neuro: -AAOx3, no FND, moving extremities past midline. -Monitor neuro status. -Reorient patient as necessary. Cardio: -RRR, normotensive, no signs of HD compromise -Maintain MAP>65. -Monitor for S/S, HD compromise. Pulm: -No signs of respiratory distress. CTA B/L -Patient is stating well on room air. -Maintain O2 saturation>95%. -O2 NC PRN Vent: protective lung ventilation strategy, aspiration precautions -CXR: -Elevate bed to 30 degrees GI: -Tolerating diet well. -Protonix or pepcid /Nephro: -BUN/Cr stable at -UA -Good urine output -Continue monitoring. -Replete electrolytes as needed. -Maintain euvolemia. Endocrinology: -Random glucose: -Maintain euglycemia. Heme/Onc: -H/H stable at -No signs of HD compromise. -Continue monitoring H/H ID: -Afebrile, no leukocytosis -Follow up BCx, UCx, Procalcitonin, Lactate -Monitor for signs and symptoms of infection. DVT prophylaxis: GI prophylaxis: Patient seen and examined with Dr. Orosco.
[2018-08-03] MEDS: levETIRAcetam 1000mg/100ml NS 100 ML IV SCH (09:12)
--- NOTE | 2018-08-03 09:20 | CP.CCUPN ---
<Alma Abbott - Last Filed: 08/03/18 13:02> CCU Subjective - Physician Review Subjective (Free Text): Alma Abbott, PGY-1, ICU Progress Note for Dr. Orosco CC: multiple bloody bowel movements Patient seen and evaluated at bedside. Patient had no significant overnight events. 12-point ROS could not be evaluated due to patient's intubated status. Critical Care Time Spent (in minutes): 30 CCU Objective - Vital Signs / Intake & Output Intake and Output (Last 8hrs): Intake & Output 08/02/18 08/03/18 08/03/18 22:59 06:59 14:59 Intake Total 1550 1658 100 Output Total 500 325 Balance 1050 1333 100 Weight 153 lb Intake: IV 1550 1658 100 Right Internal Jugular 1550 1558 Output: Urine 100 225 Urethral (Donahue) 100 225 Stool 400 100 Other: # Voids Urethral (Donahue) 300 - Physical Exam Head: Positive for: Atraumatic, Normocephalic Pupils: Positive for: Sluggish, Other (Reactive equally bilaterally). Negative for: Pinpoint (Miotic) Extroacular Muscles: Positive for: EOMI Conjunctiva: Positive for: Icteric Mouth: Positive for: Moist Mucous Membranes, Dry. Negative for: Normal Teeth (poor dentition) Neck: Positive for: Normal Range of Motion Respiratory/Chest: Positive for: Clear to Auscultation, Good Air Exchange. Negative for: Respiratory Distress, Accessory Muscle Use Cardiovascular: Positive for: Normal S1, S2, Tachycardic. Negative for: Murmurs Abdomen: Positive for: Distention. Negative for: Tenderness (unable to be ascertained), Peritoneal Signs Rectal: Positive for: Gross Blood, Melena, Hemorrhoids (external nonthrombosed hemmorhoids) Back: Positive for: Normal Inspection Upper Extremity: Positive for: Normal Inspection. Negative for: Cyanosis, Edema Lower Extremity: Positive for: Normal Inspection, Swelling (trace pedal edema). Negative for: Edema, Mica's Sign, Tenderness Neurological: Negative for: GCS=15, CN II-XII Intact, Speech Normal Skin: Positive for: Warm, Dry, Pale. Negative for: Rashes, Normal Color Psychiatric: Negative for: Alert, Oriented x 3, Normal Insight, Normal Concentration - Medications Active Medications: Active Medications Generic Name Dose Route Start Last Admin Trade Name Freq PRN Reason Stop Dose Admin Acetaminophen 650 mg 07/30/18 09:02 07/30/18 14:32 Tylenol 325mg Tab PO 650 mg Q6H PRN Administration Headache Guaifenesin/Dextromethorphan 5 ml 07/30/18 09:04 Robitussin Dm PO Q4H PRN Cough Meropenem 1 gm in 50 mls @ 100 mls/hr 07/30/18 11:16 08/03/18 05:37 Merrem Iv 1 Gm Premix IVPB 08/08/18 11:17 100 mls/hr Q8 STEVEN Administration Protocol Levetiracetam 100 mls @ 460 mls/hr 07/31/18 11:00 08/02/18 21:08 Keppra 1000mg/100ml Ns IV 460 mls/hr Q12 STEVEN Administration Propofol 1,000 mg in 100 mls @ 1.905 mls/hr 07/31/18 15:25 08/03/18 07:56 Diprivan IV 30 mcg/kg/min .Q24H PRN 11.431 mls/hr TITRATE PER MD ORDER Administration Protocol 5 MCG/KG/MIN Sodium Chloride 1,000 mls @ 100 mls/hr 08/01/18 10:45 08/03/18 01:12 Sodium Chloride 0.9% IV 100 mls/hr .Q10H STEVEN Administration Metoprolol Succinate 25 mg 07/29/18 11:00 07/29/18 12:41 Toprol Xl PO Not Given DAILY STEVEN Morphine Sulfate 2 mg 07/31/18 16:08 Morphine IVP Q3H PRN Pain, severe (8-10) Pantoprazole Sodium 40 mg 07/31/18 10:47 08/02/18 10:40 Protonix Inj IVP 40 mg DAILY STEVEN Administration - Patient Studies Lab Studies: Microbiology Studies 07/30/18 17:31 Blood Culture - Preliminary Blood NO GROWTH AFTER 3 DAYS 07/30/18 17:31 Blood Culture - Preliminary Blood NO GROWTH AFTER 3 DAYS Lab Studies 08/03/18 08/03/18 08/03/18 Range/Units 07:00 06:14 06:14 WBC 2.8 L (4.5-11.0) 10^3/uL RBC 2.96 L (3.5-6.1) 10^6/uL Hgb 9.1 L (12.0-16.0) g/dL Hct 27.0 L (36.0-48.0) % MCV 91.2 (80.0-105.0) fl MCH 30.7 (25.0-35.0) pg MCHC 33.7 (31.0-37.0) g/dl RDW 18.8 H (11.5-14.5) % Plt Count 32 L* (120.0-450.0) 10^3/uL MPV 10.2 (7.0-11.0) fl Gran % 67.2 (50.0-68.0) % Lymph % (Auto) 17.6 L (22.0-35.0) % [place] % (Auto) 10.9 H (1.0-6.0) % Eos % (Auto) 3.9 (1.5-5.0) % Baso % (Auto) 0.4 (0.0-3.0) % Gran # 1.91 (1.4-6.5) Lymph # (Auto) 0.5 L (1.2-3.4) [place] # (Auto) 0.3 (0.1-0.6) Eos # (Auto) 0.1 (0.0-0.7) Baso # (Auto) 0.01 (0.0-2.0) K/mm3 Platelet Evaluation (NORMAL) PT 16.1 H (9.4-12.5) SECONDS INR 1.39 pCO2 (35-45) mm/Hg pO2 (80-100) mm/Hg HCO3 (21-28) mmol/L ABG pH (7.35-7.45) ABG Total CO2 (22-28) mmol.L ABG O2 Saturation (95-98) % ABG O2 Content (15-23) ML/dl ABG Base Excess (-2.0-3.0) mmol/L ABG Hemoglobin (11.7-17.4) g/dL ABG Carboxyhemoglobin (0.5-1.5) % POC ABG HHb (Measured) (0-5) % ABG Methemoglobin (0.0-3.0) % ABG O2 Capacity (16-24) mL/dl Hgb O2 Saturation (95.0-98.0) % FiO2 % Sodium (132-148) mmol/L Potassium (3.6-5.0) mmol/L Chloride (98-107) mmol/L Carbon Dioxide (21-33) mmol/L Anion Gap (10-20) BUN (7-21) mg/dL Creatinine (0.7-1.2) mg/dl Est GFR ( Amer) Est GFR (Non-Af Amer) Random Glucose (70-110) mg/dL Calcium (8.4-10.5) mg/dL Total Bilirubin (0.2-1.3) mg/dL AST (14-36) U/L ALT (7-56) U/L Alkaline Phosphatase (38-126) U/L Ammonia 43 H (9-33) umol/L Total Protein (5.8-8.3) g/dL Albumin (3.0-4.8) g/dL Globulin gm/dL Albumin/Globulin Ratio (1.1-1.8) Triglycerides (35-160) mg/dL Cholesterol (130-200) mg/dL LDL Cholesterol Direct (0-129) mg/dL HDL Cholesterol (29-60) mg/dL Blood Type Antibody Screen Crossmatch BBK History Checked 08/03/18 08/03/18 08/03/18 Range/Units 06:14 05:15 01:05 WBC 3.2 L D (4.5-11.0) 10^3/uL RBC 2.91 L (3.5-6.1) 10^6/uL Hgb 9.0 L (12.0-16.0) g/dL Hct 26.5 L (36.0-48.0) % MCV 91.1 (80.0-105.0) fl MCH 30.9 (25.0-35.0) pg MCHC 34.0 (31.0-37.0) g/dl RDW 18.2 H (11.5-14.5) % Plt Count 31 L* (120.0-450.0) 10^3/uL MPV 9.9 (7.0-11.0) fl Gran % 70.7 H (50.0-68.0) % Lymph % (Auto) 12.3 L (22.0-35.0) % [place] % (Auto) 13.3 H (1.0-6.0) % Eos % (Auto) 2.8 (1.5-5.0) % Baso % (Auto) 0.9 (0.0-3.0) % Gran # 2.23 (1.4-6.5) Lymph # (Auto) 0.4 L (1.2-3.4) [place] # (Auto) 0.4 (0.1-0.6) Eos # (Auto) 0.1 (0.0-0.7) Baso # (Auto) 0.03 (0.0-2.0) K/mm3 Platelet Evaluation Low (NORMAL) PT (9.4-12.5) SECONDS INR pCO2 29 L (35-45) mm/Hg pO2 144.0 H (80-100) mm/Hg HCO3 19.2 L (21-28) mmol/L ABG pH 7.43 (7.35-7.45) ABG Total CO2 20.1 L (22-28) mmol.L ABG O2 Saturation 99.9 H (95-98) % ABG O2 Content 12.1 L (15-23) ML/dl ABG Base Excess -4.4 L (-2.0-3.0) mmol/L ABG Hemoglobin 8.6 L (11.7-17.4) g/dL ABG Carboxyhemoglobin 2.0 H (0.5-1.5) % POC ABG HHb (Measured) 0.1 (0-5) % ABG Methemoglobin 0.8 (0.0-3.0) % ABG O2 Capacity 12.1 L (16-24) mL/dl Hgb O2 Saturation 97.1 (95.0-98.0) % FiO2 40.0 % Sodium 145 (132-148) mmol/L Potassium 3.8 (3.6-5.0) mmol/L Chloride 122 H (98-107) mmol/L Carbon Dioxide 22 (21-33) mmol/L Anion Gap 5 L (10-20) BUN 24 H (7-21) mg/dL Creatinine 0.6 L (0.7-1.2) mg/dl Est GFR ( Amer) > 60 Est GFR (Non-Af Amer) > 60 Random Glucose 101 (70-110) mg/dL Calcium 8.3 L (8.4-10.5) mg/dL Total Bilirubin 3.6 H (0.2-1.3) mg/dL AST 134 H D (14-36) U/L ALT 58 H (7-56) U/L Alkaline Phosphatase 75 (38-126) U/L Ammonia (9-33) umol/L Total Protein 5.0 L (5.8-8.3) g/dL Albumin 2.2 L (3.0-4.8) g/dL Globulin 2.8 gm/dL Albumin/Globulin Ratio 0.8 L (1.1-1.8) Triglycerides (35-160) mg/dL Cholesterol (130-200) mg/dL LDL Cholesterol Direct (0-129) mg/dL HDL Cholesterol (29-60) mg/dL Blood Type Antibody Screen Crossmatch BBK History Checked 08/02/18 08/02/18 08/02/18 Range/Units 16:52 16:52 07:00 WBC 4.3 L (4.5-11.0) 10^3/uL RBC 3.11 L (3.5-6.1) 10^6/uL Hgb 9.6 L D (12.0-16.0) g/dL Hct 28.3 L (36.0-48.0) % MCV 91.0 (80.0-105.0) fl MCH 30.9 (25.0-35.0) pg MCHC 33.9 (31.0-37.0) g/dl RDW 17.2 H (11.5-14.5) % Plt Count 39 L* (120.0-450.0) 10^3/uL MPV 9.4 (7.0-11.0) fl Gran % 81.8 H (50.0-68.0) % Lymph % (Auto) 8.2 L (22.0-35.0) % [place] % (Auto) 7.7 H (1.0-6.0) % Eos % (Auto) 2.1 (1.5-5.0) % Baso % (Auto) 0.2 (0.0-3.0) % Gran # 3.51 (1.4-6.5) Lymph # (Auto) 0.4 L (1.2-3.4) [place] # (Auto) 0.3 (0.1-0.6) Eos # (Auto) 0.1 (0.0-0.7) Baso # (Auto) 0.01 (0.0-2.0) K/mm3 Platelet Evaluation Low (NORMAL) PT (9.4-12.5) SECONDS INR pCO2 (35-45) mm/Hg pO2 (80-100) mm/Hg HCO3 (21-28) mmol/L ABG pH (7.35-7.45) ABG Total CO2 (22-28) mmol.L ABG O2 Saturation (95-98) % ABG O2 Content (15-23) ML/dl ABG Base Excess (-2.0-3.0) mmol/L ABG Hemoglobin (11.7-17.4) g/dL ABG Carboxyhemoglobin (0.5-1.5) % POC ABG HHb (Measured) (0-5) % ABG Methemoglobin (0.0-3.0) % ABG O2 Capacity (16-24) mL/dl Hgb O2 Saturation (95.0-98.0) % FiO2 % Sodium 145 (132-148) mmol/L Potassium 3.4 L (3.6-5.0) mmol/L Chloride 119 H (98-107) mmol/L Carbon Dioxide 22 (21-33) mmol/L Anion Gap 6 L (10-20) BUN 27 H (7-21) mg/dL Creatinine 0.6 L (0.7-1.2) mg/dl Est GFR ( Amer) > 60 Est GFR (Non-Af Amer) > 60 Random Glucose 110 (70-110) mg/dL Calcium 8.2 L (8.4-10.5) mg/dL Total Bilirubin (0.2-1.3) mg/dL AST (14-36) U/L ALT (7-56) U/L Alkaline Phosphatase (38-126) U/L Ammonia (9-33) umol/L Total Protein (5.8-8.3) g/dL Albumin (3.0-4.8) g/dL Globulin gm/dL Albumin/Globulin Ratio (1.1-1.8) Triglycerides 121 (35-160) mg/dL Cholesterol 102 L (130-200) mg/dL LDL Cholesterol Direct 48 (0-129) mg/dL HDL Cholesterol 30 (29-60) mg/dL Blood Type Antibody Screen Crossmatch BBK History Checked 08/01/18 07/29/18 Range/Units 07:45 10:30 WBC (4.5-11.0) 10^3/uL RBC (3.5-6.1) 10^6/uL Hgb (12.0-16.0) g/dL Hct (36.0-48.0) % MCV (80.0-105.0) fl MCH (25.0-35.0) pg MCHC (31.0-37.0) g/dl RDW (11.5-14.5) % Plt Count (120.0-450.0) 10^3/uL MPV (7.0-11.0) fl Gran % (50.0-68.0) % Lymph % (Auto) (22.0-35.0) % [place] % (Auto) (1.0-6.0) % Eos % (Auto) (1.5-5.0) % Baso % (Auto) (0.0-3.0) % Gran # (1.4-6.5) Lymph # (Auto) (1.2-3.4) [place] # (Auto) (0.1-0.6) Eos # (Auto) (0.0-0.7) Baso # (Auto) (0.0-2.0) K/mm3 Platelet Evaluation (NORMAL) PT (9.4-12.5) SECONDS INR pCO2 (35-45) mm/Hg pO2 (80-100) mm/Hg HCO3 (21-28) mmol/L ABG pH (7.35-7.45) ABG Total CO2 (22-28) mmol.L ABG O2 Saturation (95-98) % ABG O2 Content (15-23) ML/dl ABG Base Excess (-2.0-3.0) mmol/L ABG Hemoglobin (11.7-17.4) g/dL ABG Carboxyhemoglobin (0.5-1.5) % POC ABG HHb (Measured) (0-5) % ABG Methemoglobin (0.0-3.0) % ABG O2 Capacity (16-24) mL/dl Hgb O2 Saturation (95.0-98.0) % FiO2 % Sodium (132-148) mmol/L Potassium (3.6-5.0) mmol/L Chloride (98-107) mmol/L Carbon Dioxide (21-33) mmol/L Anion Gap (10-20) BUN (7-21) mg/dL Creatinine (0.7-1.2) mg/dl Est GFR ( Amer) Est GFR (Non-Af Amer) Random Glucose (70-110) mg/dL Calcium (8.4-10.5) mg/dL Total Bilirubin (0.2-1.3) mg/dL AST (14-36) U/L ALT (7-56) U/L Alkaline Phosphatase (38-126) U/L Ammonia (9-33) umol/L Total Protein (5.8-8.3) g/dL Albumin (3.0-4.8) g/dL Globulin gm/dL Albumin/Globulin Ratio (1.1-1.8) Triglycerides (35-160) mg/dL Cholesterol (130-200) mg/dL LDL Cholesterol Direct (0-129) mg/dL HDL Cholesterol (29-60) mg/dL Blood Type O POSITIVE Antibody Screen Negative Crossmatch See Detail See Detail BBK History Checked Patient has bt Laboratory Results - last 24 hr 07/29/18 08/01/18 08/02/18 10:30 07:45 07:00 WBC RBC Hgb Hct MCV MCH MCHC RDW Plt Count MPV Gran % Lymph % (Auto) [place] % (Auto) Eos % (Auto) Baso % (Auto) Gran # Lymph # (Auto) [place] # (Auto) Eos # (Auto) Baso # (Auto) Platelet Evaluation Low PT INR pCO2 pO2 HCO3 ABG pH ABG Total CO2 ABG O2 Saturation ABG O2 Content ABG Base Excess ABG Hemoglobin ABG Carboxyhemoglobin POC ABG HHb (Measured) ABG Methemoglobin ABG O2 Capacity Hgb O2 Saturation FiO2 Sodium Potassium Chloride Carbon Dioxide Anion Gap BUN Creatinine Est GFR ( Amer) Est GFR (Non-Af Amer) Random Glucose Calcium Total Bilirubin AST ALT Alkaline Phosphatase Ammonia Total Protein Albumin Globulin Albumin/Globulin Ratio Triglycerides Cholesterol LDL Cholesterol Direct HDL Cholesterol Blood Type O POSITIVE Antibody Screen Negative Crossmatch See Detail See Detail BBK History Checked Patient has bt 08/02/18 08/02/18 08/03/18 16:52 16:52 01:05 WBC 4.3 L 3.2 L D RBC 3.11 L 2.91 L Hgb 9.6 L D 9.0 L Hct 28.3 L 26.5 L MCV 91.0 91.1 MCH 30.9 30.9 MCHC 33.9 34.0 RDW 17.2 H 18.2 H Plt Count 39 L* 31 L* MPV 9.4 9.9 Gran % 81.8 H 70.7 H Lymph % (Auto) 8.2 L 12.3 L [place] % (Auto) 7.7 H 13.3 H Eos % (Auto) 2.1 2.8 Baso % (Auto) 0.2 0.9 Gran # 3.51 2.23 Lymph # (Auto) 0.4 L 0.4 L [place] # (Auto) 0.3 0.4 Eos # (Auto) 0.1 0.1 Baso # (Auto) 0.01 0.03 Platelet Evaluation Low PT INR pCO2 pO2 HCO3 ABG pH ABG Total CO2 ABG O2 Saturation ABG O2 Content ABG Base Excess ABG Hemoglobin ABG Carboxyhemoglobin POC ABG HHb (Measured) ABG Methemoglobin ABG O2 Capacity Hgb O2 Saturation FiO2 Sodium 145 Potassium 3.4 L Chloride 119 H Carbon Dioxide 22 Anion Gap 6 L BUN 27 H Creatinine 0.6 L Est GFR ( Amer) > 60 Est GFR (Non-Af Amer) > 60 Random Glucose 110 Calcium 8.2 L Total Bilirubin AST ALT Alkaline Phosphatase Ammonia Total Protein Albumin Globulin Albumin/Globulin Ratio Triglycerides 121 Cholesterol 102 L LDL Cholesterol Direct 48 HDL Cholesterol 30 Blood Type Antibody Screen Crossmatch BBK History Checked 08/03/18 08/03/18 08/03/18 05:15 06:14 06:14 WBC RBC Hgb Hct MCV MCH MCHC RDW Plt Count MPV Gran % Lymph % (Auto) [place] % (Auto) Eos % (Auto) Baso % (Auto) Gran # Lymph # (Auto) [place] # (Auto) Eos # (Auto) Baso # (Auto) Platelet Evaluation PT 16.1 H INR 1.39 pCO2 29 L pO2 144.0 H HCO3 19.2 L ABG pH 7.43 ABG Total CO2 20.1 L ABG O2 Saturation 99.9 H ABG O2 Content 12.1 L ABG Base Excess -4.4 L ABG Hemoglobin 8.6 L ABG Carboxyhemoglobin 2.0 H POC ABG HHb (Measured) 0.1 ABG Methemoglobin 0.8 ABG O2 Capacity 12.1 L Hgb O2 Saturation 97.1 FiO2 40.0 Sodium 145 Potassium 3.8 Chloride 122 H Carbon Dioxide 22 Anion Gap 5 L BUN 24 H Creatinine 0.6 L Est GFR ( Amer) > 60 Est GFR (Non-Af Amer) > 60 Random Glucose 101 Calcium 8.3 L Total Bilirubin 3.6 H AST 134 H D ALT 58 H Alkaline Phosphatase 75 Ammonia Total Protein 5.0 L Albumin 2.2 L Globulin 2.8 Albumin/Globulin Ratio 0.8 L Triglycerides Cholesterol LDL Cholesterol Direct HDL Cholesterol Blood Type Antibody Screen Crossmatch BBK History Checked 08/03/18 08/03/18 06:14 07:00 WBC 2.8 L RBC 2.96 L Hgb 9.1 L Hct 27.0 L MCV 91.2 MCH 30.7 MCHC 33.7 RDW 18.8 H Plt Count 32 L* MPV 10.2 Gran % 67.2 Lymph % (Auto) 17.6 L [place] % (Auto) 10.9 H Eos % (Auto) 3.9 Baso % (Auto) 0.4 Gran # 1.91 Lymph # (Auto) 0.5 L [place] # (Auto) 0.3 Eos # (Auto) 0.1 Baso # (Auto) 0.01 Platelet Evaluation PT INR pCO2 pO2 HCO3 ABG pH ABG Total CO2 ABG O2 Saturation ABG O2 Content ABG Base Excess ABG Hemoglobin ABG Carboxyhemoglobin POC ABG HHb (Measured) ABG Methemoglobin ABG O2 Capacity Hgb O2 Saturation FiO2 Sodium Potassium Chloride Carbon Dioxide Anion Gap BUN Creatinine Est GFR ( Amer) Est GFR (Non-Af Amer) Random Glucose Calcium Total Bilirubin AST ALT Alkaline Phosphatase Ammonia 43 H Total Protein Albumin Globulin Albumin/Globulin Ratio Triglycerides Cholesterol LDL Cholesterol Direct HDL Cholesterol Blood Type Antibody Screen Crossmatch BBK History Checked Review of Systems - Review of Systems Systems not reviewed;Unavailable: Intubated Critical Care Progress Note - Ventilator Checklist Head of Bed 30 Degrees: Yes PUD Prophalyxis: Yes DVT Prophylaxis: Yes - Vent Settings MODE:: PRVC TIDAL VOLUME:: 400 RESP RATE:: 14 FIO2:: 40 PEEP:: 5 - Extremities/Vascular Does the Patient have a Central Venous Catheter?: Yes - Nutrition Nutrition: Nutrition Category Date Time Status NPO Diet [DIET] Diets 07/31/18 Breakfast Ordered Assessment/Plan - Assessment and Plan (Free Text) Assessment: 63 year old female with past medical history of alcoholic cirrhosis, esophageal varices, PUD, spinal stenosis, arthritis, DJD, CVA, seizure, and osteoporosis presents with multiple episodes of bloody bowel movements. As per bleeding scan and Vascular procedure, bleed is likely from celiac axis at patent splenic flexure of colon. GI Bleed of unknown source Hypoxic respiratory failure Alcoholic Cirrhosis DJD History of CVA History of seizure Osteoporosis Plan: Neuro: Status post intubation -AAOx0, intubated, currently on sedated on propofol at 5 mcg/kg/min, no FND -Daily weaning trials Seizure history -Patient has history of seizures -Keppra level on 07/28: elevated at 59.2 -Keppra held until blood level normalizes. -Recheck keppra level daily. -Monitor neuro status. -Reorient patient as necessary. Cardio: Hypotension 2/2 to hypovolemia -RRR, hypotensive at 95/55 from 118/67 -EKG from 07/31: sinus tachycardia with HR of 153 -Patient is currently off of any vasopressors -Continue IV NS at 100 cc/hr -Metoprolol Succinate currently held. -Maintain MAP>65. -Monitor for S/S, HD compromise. Pulm: Respiratory failure s/p unresponsiveness after endoscopy -Vent settings: TV: 400, RR: 14, PEEP: 5, FiO2: 40% -CXR 08/03: ET tube currently in place 1 cm from zahra, moderate vascular congestion -ABG 08/03: pH: 7.43, pCO2: 29, pO2: 144, FiO2: 40% -Maintain O2 saturation>95%. -Continue low to intermediate tidal volume -Weaning trial daily -Head of bed 30 degrees -Conservative fluid management -Protective oral hygiene GI: Multiple bloody bowel movements with unknown source of bleed -Patient has history of colonic AVMs, alcohol cirrhosis, esophageal varices, and peptic ulcer disease. -Hemoglobin has been stable at 9.1 on 08/03. -Patient is status post 9 U PRBCs, 4 U FFP, and 2 U of platelet pharesis -Endoscopy on 07/29 showed moderate portal hypertensive gastropathy, Sanchez's esophagus in lower 1/3 of esophagus, varix in 2nd part of the duodenum, and grade 1 varix in middle 1/3 of esophagus -Nuclear Bleed Scan on 07/31: showed likely bleed in splenic flexure -Celiac, SMA, and POOJA arteriogram on 07/31: showed likely bleed from celiax axis supporting evidence of bleed from splenic flexure -Flexible sigmoidoscopy on 07/31: up to 110 cm, but bloody throughout limiting view and unable to locate specific source of bleed. -Start Lactulose 20 gm OG BID for elevated ammonia -As per Dr. Vernon, GI, plan is to do colonoscopy today or Friday once hemodynamically stable to locate and possibly treat source of bleed -Continue to follow recommendations by Dr. Vernon Diet -Currently intubated, so NPO diet at this time. Patient currently has OG tube for oral medication GI prophylaxis -Continue with Protonix 40 mg IV daily /Nephro: -BUN/Cr stable at 24/0.6. -Continue with NS at 100cc/hr -Donahue intact and urine output with dark, bindu urine -Continue monitoring. -Replete electrolytes as needed. -Maintain euvolemia. Endocrinology: -Random glucose: 101 -Maintain euglycemia. Heme/Onc: Chronic DIC -H/H stable at 9.1/27 on 08/03. Last 2 hemoglobin values have been stable around 9. -WBC decreased to 2.8 from 3.2. HIV Ab from 03/2018 was negative. -Platelet count 32 from 39 from 08/01 -D-dimer 08/02: 1364 -Status post 9 U PRBCs, 4 U FFP, and 2 U of platelet pharesis -Transfuse PRBCs if Hgb<7 -Continue monitoring H/H -As per Dr. Medellin, Heme/Onc, patient should be transfused platelets if platelet level falls below 30 -As per Dr. Medellin, patient should be treated as if patient has chronic DIC. -Chronic DIC 2/2 to cirrhosis vs. multiple transfusions vs. malignancy. Doubt infectious or obstetric causes. -Continue to follow recommendations of Dr. Vignesh, Heme/Onc ID: SIRS with unknown source of infection -Afebrile, leukopenic -Prior HIV Ab from 03/2018 was negative -BCx day 3, UCx, MRSA negative. -Continue Merrem 1 g Q8 day 5 of 7 as per ID for SIRS with unknown source of infection. -Monitor for signs and symptoms of infection. Patient seen and examined with Dr. Orosco. - Date & Time Date: 08/03/18 Time: 09:20 <Dylan Orosco - Last Filed: 08/03/18 13:17> CCU Objective - Vital Signs / Intake & Output Vital Signs (Last 4 hours): Vital Signs Temp Pulse BP Pulse Ox 08/03/18 11:15 72 08/03/18 10:00 96.1 F L 72 97/60 L 98 08/03/18 09:45 96.1 F L 71 96/56 L 97 08/03/18 09:30 96.3 F L 72 96/57 L 97 Intake and Output (Last 8hrs): Intake & Output 08/02/18 08/03/18 08/03/18 22:59 06:59 14:59 Intake Total 1550 1658 552 Output Total 500 325 Balance 1050 1333 552 Weight 153 lb Intake: IV 1550 1658 552 Right Internal Jugular 1550 1558 452 Output: Urine 100 225 Urethral (Donahue) 100 225 Stool 400 100 Other: # Voids Urethral ([place]) 300 - Medications Active Medications: Active Medications Generic Name Dose Route Start Last Admin Trade Name Freq PRN Reason Stop Dose Admin Guaifenesin/Dextromethorphan 5 ml 07/30/18 09:04 Robitussin Dm PO Q4H PRN Cough Meropenem 1 gm in 50 mls @ 100 mls/hr 07/30/18 11:16 08/03/18 05:37 Merrem Iv 1 Gm Premix IVPB 08/08/18 11:17 100 mls/hr Q8 STEVEN Administration Protocol Levetiracetam 100 mls @ 460 mls/hr 07/31/18 11:00 08/03/18 09:12 Keppra 1000mg/100ml Ns IV 460 mls/hr Q12 STEVEN Administration Sodium Chloride 1,000 mls @ 100 mls/hr 08/01/18 10:45 08/03/18 09:21 Sodium Chloride 0.9% IV 100 mls/hr .Q10H STEVEN Administration Lactulose 20 gm 08/03/18 18:00 Enulose NG BID STEVEN Metoprolol Succinate 25 mg 07/29/18 11:00 07/29/18 12:41 Toprol Xl PO Not Given DAILY STEVEN Morphine Sulfate 2 mg 07/31/18 16:08 Morphine IVP Q3H PRN Pain, severe (8-10) Pantoprazole Sodium 40 mg 07/31/18 10:47 08/03/18 09:12 Protonix Inj IVP 40 mg DAILY STEVEN Administration - Patient Studies Lab Studies: Microbiology Studies 07/30/18 17:31 Blood Culture - Preliminary Blood NO GROWTH AFTER 3 DAYS 07/30/18 17:31 Blood Culture - Preliminary Blood NO GROWTH AFTER 3 DAYS Lab Studies 08/03/18 08/03/18 08/03/18 Range/Units 09:00 07:00 06:14 WBC 2.8 L (4.5-11.0) 10^3/uL RBC 2.96 L (3.5-6.1) 10^6/uL Hgb 9.1 L (12.0-16.0) g/dL Hct 27.0 L (36.0-48.0) % MCV 91.2 (80.0-105.0) fl MCH 30.7 (25.0-35.0) pg MCHC 33.7 (31.0-37.0) g/dl RDW 18.8 H (11.5-14.5) % Plt Count 32 L* (120.0-450.0) 10^3/uL Manual Plt Count 34 L* (120-450) K/mm3 MPV 10.2 (7.0-11.0) fl Gran % 67.2 (50.0-68.0) % Lymph % (Auto) 17.6 L (22.0-35.0) % [place] % (Auto) 10.9 H (1.0-6.0) % Eos % (Auto) 3.9 (1.5-5.0) % Baso % (Auto) 0.4 (0.0-3.0) % Gran # 1.91 (1.4-6.5) Lymph # (Auto) 0.5 L (1.2-3.4) [place] # (Auto) 0.3 (0.1-0.6) Eos # (Auto) 0.1 (0.0-0.7) Baso # (Auto) 0.01 (0.0-2.0) K/mm3 Platelet Evaluation (NORMAL) PT (9.4-12.5) SECONDS INR pCO2 (35-45) mm/Hg pO2 (80-100) mm/Hg HCO3 (21-28) mmol/L ABG pH (7.35-7.45) ABG Total CO2 (22-28) mmol.L ABG O2 Saturation (95-98) % ABG O2 Content (15-23) ML/dl ABG Base Excess (-2.0-3.0) mmol/L ABG Hemoglobin (11.7-17.4) g/dL ABG Carboxyhemoglobin (0.5-1.5) % POC ABG HHb (Measured) (0-5) % ABG Methemoglobin (0.0-3.0) % ABG O2 Capacity (16-24) mL/dl Hgb O2 Saturation (95.0-98.0) % FiO2 % Sodium (132-148) mmol/L Potassium (3.6-5.0) mmol/L Chloride (98-107) mmol/L Carbon Dioxide (21-33) mmol/L Anion Gap (10-20) BUN (7-21) mg/dL Creatinine (0.7-1.2) mg/dl Est GFR ( Amer) Est GFR (Non-Af Amer) Random Glucose (70-110) mg/dL Calcium (8.4-10.5) mg/dL Total Bilirubin (0.2-1.3) mg/dL AST (14-36) U/L ALT (7-56) U/L Alkaline Phosphatase (38-126) U/L Ammonia 43 H (9-33) umol/L Total Protein (5.8-8.3) g/dL Albumin (3.0-4.8) g/dL Globulin gm/dL Albumin/Globulin Ratio (1.1-1.8) Triglycerides (35-160) mg/dL Cholesterol (130-200) mg/dL LDL Cholesterol Direct (0-129) mg/dL HDL Cholesterol (29-60) mg/dL Blood Type Antibody Screen Crossmatch BBK History Checked 08/03/18 08/03/18 08/03/18 Range/Units 06:14 06:14 05:15 WBC (4.5-11.0) 10^3/uL RBC (3.5-6.1) 10^6/uL Hgb (12.0-16.0) g/dL Hct (36.0-48.0) % MCV (80.0-105.0) fl MCH (25.0-35.0) pg MCHC (31.0-37.0) g/dl RDW (11.5-14.5) % Plt Count (120.0-450.0) 10^3/uL Manual Plt Count (120-450) K/mm3 MPV (7.0-11.0) fl Gran % (50.0-68.0) % Lymph % (Auto) (22.0-35.0) % [place] % (Auto) (1.0-6.0) % Eos % (Auto) (1.5-5.0) % Baso % (Auto) (0.0-3.0) % Gran # (1.4-6.5) Lymph # (Auto) (1.2-3.4) [place] # (Auto) (0.1-0.6) Eos # (Auto) (0.0-0.7) Baso # (Auto) (0.0-2.0) K/mm3 Platelet Evaluation (NORMAL) PT 16.1 H (9.4-12.5) SECONDS INR 1.39 pCO2 29 L (35-45) mm/Hg pO2 144.0 H (80-100) mm/Hg HCO3 19.2 L (21-28) mmol/L ABG pH 7.43 (7.35-7.45) ABG Total CO2 20.1 L (22-28) mmol.L ABG O2 Saturation 99.9 H (95-98) % ABG O2 Content 12.1 L (15-23) ML/dl ABG Base Excess -4.4 L (-2.0-3.0) mmol/L ABG Hemoglobin 8.6 L (11.7-17.4) g/dL ABG Carboxyhemoglobin 2.0 H (0.5-1.5) % POC ABG HHb (Measured) 0.1 (0-5) % ABG Methemoglobin 0.8 (0.0-3.0) % ABG O2 Capacity 12.1 L (16-24) mL/dl Hgb O2 Saturation 97.1 (95.0-98.0) % FiO2 40.0 % Sodium 145 (132-148) mmol/L Potassium 3.8 (3.6-5.0) mmol/L Chloride 122 H (98-107) mmol/L Carbon Dioxide 22 (21-33) mmol/L Anion Gap 5 L (10-20) BUN 24 H (7-21) mg/dL Creatinine 0.6 L (0.7-1.2) mg/dl Est GFR ( Amer) > 60 Est GFR (Non-Af Amer) > 60 Random Glucose 101 (70-110) mg/dL Calcium 8.3 L (8.4-10.5) mg/dL Total Bilirubin 3.6 H (0.2-1.3) mg/dL AST 134 H D (14-36) U/L ALT 58 H (7-56) U/L Alkaline Phosphatase 75 (38-126) U/L Ammonia (9-33) umol/L Total Protein 5.0 L (5.8-8.3) g/dL Albumin 2.2 L (3.0-4.8) g/dL Globulin 2.8 gm/dL Albumin/Globulin Ratio 0.8 L (1.1-1.8) Triglycerides (35-160) mg/dL Cholesterol (130-200) mg/dL LDL Cholesterol Direct (0-129) mg/dL HDL Cholesterol (29-60) mg/dL Blood Type Antibody Screen Crossmatch BBK History Checked 08/03/18 08/02/18 08/02/18 Range/Units 01:05 16:52 16:52 WBC 3.2 L D 4.3 L (4.5-11.0) 10^3/uL RBC 2.91 L 3.11 L (3.5-6.1) 10^6/uL Hgb 9.0 L 9.6 L D (12.0-16.0) g/dL Hct 26.5 L 28.3 L (36.0-48.0) % MCV 91.1 91.0 (80.0-105.0) fl MCH 30.9 30.9 (25.0-35.0) pg MCHC 34.0 33.9 (31.0-37.0) g/dl RDW 18.2 H 17.2 H (11.5-14.5) % Plt Count 31 L* 39 L* (120.0-450.0) 10^3/uL Manual Plt Count (120-450) K/mm3 MPV 9.9 9.4 (7.0-11.0) fl Gran % 70.7 H 81.8 H (50.0-68.0) % Lymph % (Auto) 12.3 L 8.2 L (22.0-35.0) % [place] % (Auto) 13.3 H 7.7 H (1.0-6.0) % Eos % (Auto) 2.8 2.1 (1.5-5.0) % Baso % (Auto) 0.9 0.2 (0.0-3.0) % Gran # 2.23 3.51 (1.4-6.5) Lymph # (Auto) 0.4 L 0.4 L (1.2-3.4) [place] # (Auto) 0.4 0.3 (0.1-0.6) Eos # (Auto) 0.1 0.1 (0.0-0.7) Baso # (Auto) 0.03 0.01 (0.0-2.0) K/mm3 Platelet Evaluation Low (NORMAL) PT (9.4-12.5) SECONDS INR pCO2 (35-45) mm/Hg pO2 (80-100) mm/Hg HCO3 (21-28) mmol/L ABG pH (7.35-7.45) ABG Total CO2 (22-28) mmol.L ABG O2 Saturation (95-98) % ABG O2 Content (15-23) ML/dl ABG Base Excess (-2.0-3.0) mmol/L ABG Hemoglobin (11.7-17.4) g/dL ABG Carboxyhemoglobin (0.5-1.5) % POC ABG HHb (Measured) (0-5) % ABG Methemoglobin (0.0-3.0) % ABG O2 Capacity (16-24) mL/dl Hgb O2 Saturation (95.0-98.0) % FiO2 % Sodium 145 (132-148) mmol/L Potassium 3.4 L (3.6-5.0) mmol/L Chloride 119 H (98-107) mmol/L Carbon Dioxide 22 (21-33) mmol/L Anion Gap 6 L (10-20) BUN 27 H (7-21) mg/dL Creatinine 0.6 L (0.7-1.2) mg/dl Est GFR ( Amer) > 60 Est GFR (Non-Af Amer) > 60 Random Glucose 110 (70-110) mg/dL Calcium 8.2 L (8.4-10.5) mg/dL Total Bilirubin (0.2-1.3) mg/dL AST (14-36) U/L ALT (7-56) U/L Alkaline Phosphatase (38-126) U/L Ammonia (9-33) umol/L Total Protein (5.8-8.3) g/dL Albumin (3.0-4.8) g/dL Globulin gm/dL Albumin/Globulin Ratio (1.1-1.8) Triglycerides 121 (35-160) mg/dL Cholesterol 102 L (130-200) mg/dL LDL Cholesterol Direct 48 (0-129) mg/dL HDL Cholesterol 30 (29-60) mg/dL Blood Type Antibody Screen Crossmatch BBK History Checked 08/01/18 07/29/18 Range/Units 07:45 10:30 WBC (4.5-11.0) 10^3/uL RBC (3.5-6.1) 10^6/uL Hgb (12.0-16.0) g/dL Hct (36.0-48.0) % MCV (80.0-105.0) fl MCH (25.0-35.0) pg MCHC (31.0-37.0) g/dl RDW (11.5-14.5) % Plt Count (120.0-450.0) 10^3/uL Manual Plt Count (120-450) K/mm3 MPV (7.0-11.0) fl Gran % (50.0-68.0) % Lymph % (Auto) (22.0-35.0) % [place] % (Auto) (1.0-6.0) % Eos % (Auto) (1.5-5.0) % Baso % (Auto) (0.0-3.0) % Gran # (1.4-6.5) Lymph # (Auto) (1.2-3.4) [place] # (Auto) (0.1-0.6) Eos # (Auto) (0.0-0.7) Baso # (Auto) (0.0-2.0) K/mm3 Platelet Evaluation (NORMAL) PT (9.4-12.5) SECONDS INR pCO2 (35-45) mm/Hg pO2 (80-100) mm/Hg HCO3 (21-28) mmol/L ABG pH (7.35-7.45) ABG Total CO2 (22-28) mmol.L ABG O2 Saturation (95-98) % ABG O2 Content (15-23) ML/dl ABG Base Excess (-2.0-3.0) mmol/L ABG Hemoglobin (11.7-17.4) g/dL ABG Carboxyhemoglobin (0.5-1.5) % POC ABG HHb (Measured) (0-5) % ABG Methemoglobin (0.0-3.0) % ABG O2 Capacity (16-24) mL/dl Hgb O2 Saturation (95.0-98.0) % FiO2 % Sodium (132-148) mmol/L Potassium (3.6-5.0) mmol/L Chloride (98-107) mmol/L Carbon Dioxide (21-33) mmol/L Anion Gap (10-20) BUN (7-21) mg/dL Creatinine (0.7-1.2) mg/dl Est GFR ( Amer) Est GFR (Non-Af Amer) Random Glucose (70-110) mg/dL Calcium (8.4-10.5) mg/dL Total Bilirubin (0.2-1.3) mg/dL AST (14-36) U/L ALT (7-56) U/L Alkaline Phosphatase (38-126) U/L Ammonia (9-33) umol/L Total Protein (5.8-8.3) g/dL Albumin (3.0-4.8) g/dL Globulin gm/dL Albumin/Globulin Ratio (1.1-1.8) Triglycerides (35-160) mg/dL Cholesterol (130-200) mg/dL LDL Cholesterol Direct (0-129) mg/dL HDL Cholesterol (29-60) mg/dL Blood Type O POSITIVE Antibody Screen Negative Crossmatch See Detail See Detail BBK History Checked Patient has bt Laboratory Results - last 24 hr 07/29/18 08/01/18 08/02/18 10:30 07:45 16:52 WBC 4.3 L RBC 3.11 L Hgb 9.6 L D Hct 28.3 L MCV 91.0 MCH 30.9 MCHC 33.9 RDW 17.2 H Plt Count 39 L* Manual Plt Count MPV 9.4 Gran % 81.8 H Lymph % (Auto) 8.2 L [place] % (Auto) 7.7 H Eos % (Auto) 2.1 Baso % (Auto) 0.2 Gran # 3.51 Lymph # (Auto) 0.4 L [place] # (Auto) 0.3 Eos # (Auto) 0.1 Baso # (Auto) 0.01 Platelet Evaluation PT INR pCO2 pO2 HCO3 ABG pH ABG Total CO2 ABG O2 Saturation ABG O2 Content ABG Base Excess ABG Hemoglobin ABG Carboxyhemoglobin POC ABG HHb (Measured) ABG Methemoglobin ABG O2 Capacity Hgb O2 Saturation FiO2 Sodium Potassium Chloride Carbon Dioxide Anion Gap BUN Creatinine Est GFR ( Amer) Est GFR (Non-Af Amer) Random Glucose Calcium Total Bilirubin AST ALT Alkaline Phosphatase Ammonia Total Protein Albumin Globulin Albumin/Globulin Ratio Triglycerides Cholesterol LDL Cholesterol Direct HDL Cholesterol Blood Type O POSITIVE Antibody Screen Negative Crossmatch See Detail See Detail BBK History Checked Patient has bt 08/02/18 08/03/18 08/03/18 16:52 01:05 05:15 WBC 3.2 L D RBC 2.91 L Hgb 9.0 L Hct 26.5 L MCV 91.1 MCH 30.9 MCHC 34.0 RDW 18.2 H Plt Count 31 L* Manual Plt Count MPV 9.9 Gran % 70.7 H Lymph % (Auto) 12.3 L [place] % (Auto) 13.3 H Eos % (Auto) 2.8 Baso % (Auto) 0.9 Gran # 2.23 Lymph # (Auto) 0.4 L [place] # (Auto) 0.4 Eos # (Auto) 0.1 Baso # (Auto) 0.03 Platelet Evaluation Low PT INR pCO2 29 L pO2 144.0 H HCO3 19.2 L ABG pH 7.43 ABG Total CO2 20.1 L ABG O2 Saturation 99.9 H ABG O2 Content 12.1 L ABG Base Excess -4.4 L ABG Hemoglobin 8.6 L ABG Carboxyhemoglobin 2.0 H POC ABG HHb (Measured) 0.1 ABG Methemoglobin 0.8 ABG O2 Capacity 12.1 L Hgb O2 Saturation 97.1 FiO2 40.0 Sodium 145 Potassium 3.4 L Chloride 119 H Carbon Dioxide 22 Anion Gap 6 L BUN 27 H Creatinine 0.6 L Est GFR ( Amer) > 60 Est GFR (Non-Af Amer) > 60 Random Glucose 110 Calcium 8.2 L Total Bilirubin AST ALT Alkaline Phosphatase Ammonia Total Protein Albumin Globulin Albumin/Globulin Ratio Triglycerides 121 Cholesterol 102 L LDL Cholesterol Direct 48 HDL Cholesterol 30 Blood Type Antibody Screen Crossmatch BBK History Checked 08/03/18 08/03/18 08/03/18 06:14 06:14 06:14 WBC RBC Hgb Hct MCV MCH MCHC RDW Plt Count Manual Plt Count MPV Gran % Lymph % (Auto) [place] % (Auto) Eos % (Auto) Baso % (Auto) Gran # Lymph # (Auto) [place] # (Auto) Eos # (Auto) Baso # (Auto) Platelet Evaluation PT 16.1 H INR 1.39 pCO2 pO2 HCO3 ABG pH ABG Total CO2 ABG O2 Saturation ABG O2 Content ABG Base Excess ABG Hemoglobin ABG Carboxyhemoglobin POC ABG HHb (Measured) ABG Methemoglobin ABG O2 Capacity Hgb O2 Saturation FiO2 Sodium 145 Potassium 3.8 Chloride 122 H Carbon Dioxide 22 Anion Gap 5 L BUN 24 H Creatinine 0.6 L Est GFR ( Amer) > 60 Est GFR (Non-Af Amer) > 60 Random Glucose 101 Calcium 8.3 L Total Bilirubin 3.6 H AST 134 H D ALT 58 H Alkaline Phosphatase 75 Ammonia 43 H Total Protein 5.0 L Albumin 2.2 L Globulin 2.8 Albumin/Globulin Ratio 0.8 L Triglycerides Cholesterol LDL Cholesterol Direct HDL Cholesterol Blood Type Antibody Screen Crossmatch BBK History Checked 08/03/18 08/03/18 07:00 09:00 WBC 2.8 L RBC 2.96 L Hgb 9.1 L Hct 27.0 L MCV 91.2 MCH 30.7 MCHC 33.7 RDW 18.8 H Plt Count 32 L* Manual Plt Count 34 L* MPV 10.2 Gran % 67.2 Lymph % (Auto) 17.6 L [place] % (Auto) 10.9 H Eos % (Auto) 3.9 Baso % (Auto) 0.4 Gran # 1.91 Lymph # (Auto) 0.5 L [place] # (Auto) 0.3 Eos # (Auto) 0.1 Baso # (Auto) 0.01 Platelet Evaluation PT INR pCO2 pO2 HCO3 ABG pH ABG Total CO2 ABG O2 Saturation ABG O2 Content ABG Base Excess ABG Hemoglobin ABG Carboxyhemoglobin POC ABG HHb (Measured) ABG Methemoglobin ABG O2 Capacity Hgb O2 Saturation FiO2 Sodium Potassium Chloride Carbon Dioxide Anion Gap BUN Creatinine Est GFR ( Amer) Est GFR (Non-Af Amer) Random Glucose Calcium Total Bilirubin AST ALT Alkaline Phosphatase Ammonia Total Protein Albumin Globulin Albumin/Globulin Ratio Triglycerides Cholesterol LDL Cholesterol Direct HDL Cholesterol Blood Type Antibody Screen Crossmatch BBK History Checked Radiology Impressions: Radiology Impressions Chest X-Ray 08/03/18 07:00 IMPRESSION: Moderate vascular congestion. 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, seizure, peptic ulcer disease, admitted with GIB, likely lower GIB Patient underwent EGD (no active bleeding), and flex sig (active bleeding noted) Pt also went unsuccessful IR angiography, no active extravasation noted, no embolization Currently afebrile, HD stable, NOT on Vasopressor support, comfortable in NAD, intubated, sedated GI and surgery following HH 9.0 today, INR 1.4 GI planning for colonoscopy on Fri Acute GIB Cirrhosis EtOH abuse Thrombocytopenia Hx CVA Liver disease Coagulopathy Recommend: - cont with vent support, low tidal vol ventilation, daily sedation vacation CPAP trials, plan to extubated today - Abx as per ID - IVF - CBC q6hr - PPI IV BID - Lactulose, titrate to 2 BMs per day - GI ppx - DVT ppx - Monitor in MICU Patient remains critical, guarded prognosis Full Code Critical care time 35 minutes
--- NOTE | 2018-08-03 10:13 | RAD ---
Date of service: 08/03/2018 HISTORY: Intubated COMPARISON: 07/31/2018 FINDINGS: LUNGS: Moderate vascular congestion. Central lines and tubes unchanged in position PLEURA: No significant pleural effusion identified, no pneumothorax apparent. CARDIOVASCULAR: No aortic atherosclerotic calcification present. Normal cardiac size. No pulmonary vascular congestion. OSSEOUS STRUCTURES: No significant abnormalities. VISUALIZED UPPER ABDOMEN: Normal. OTHER FINDINGS: None. IMPRESSION: Moderate vascular congestion. Central lines and tubes unchanged in position
[2018-08-03] MEDS ORDERED: Lactulose 10 gm/15 ml (Rectal Use) PR ONE (10:25)
--- NOTE | 2018-08-03 12:12 | CP.PCM.PN ---
Subjective - Date & Time of Evaluation Date of Evaluation: 08/03/18 Time of Evaluation: 12:08 - Subjective Subjective: Surgery: Dr. Brown Pt seen and examined. Received 2PRBC 1FFP and 1Plts yesterday. Remains intubated. No pressors. Objective - Vital Signs/Intake and Output Vital Signs (last 24 hours): Temp Pulse Resp BP Pulse Ox 96.1 F L 72 14 97/60 L 98 08/03/18 10:00 08/03/18 11:15 08/02/18 11:15 08/03/18 10:00 08/03/18 10:00 Intake and Output: 08/03/18 08/03/18 06:59 18:59 Intake Total 1658 552 Output Total 425 Balance 1233 552 - Medications Medications: Current Medications Guaifenesin/Dextromethorphan (Robitussin Dm) 5 ml PO Q4H PRN PRN Reason: Cough Meropenem (Merrem Iv 1 Gm Premix) 1 gm in 50 mls @ 100 mls/hr IVPB Q8 [facility]; Protocol Stop: 08/08/18 11:17 Last Admin: 08/03/18 05:37 Dose: 100 mls/hr Levetiracetam (Keppra 1000mg/100ml Ns) 100 mls @ 460 mls/hr IV Q12 [facility] Last Admin: 08/03/18 09:12 Dose: 460 mls/hr Propofol (Diprivan) 1,000 mg in 100 mls @ 1.905 mls/hr IV .Q24H PRN; Protocol PRN Reason: TITRATE PER MD ORDER Last Admin: 08/03/18 07:56 Dose: 30 mcg/kg/min, 11.431 mls/hr Sodium Chloride (Sodium Chloride 0.9%) 1,000 mls @ 100 mls/hr IV .Q10H [facility] Last Admin: 08/03/18 09:21 Dose: 100 mls/hr Lactulose (Enulose) 20 gm NG BID [facility] Metoprolol Succinate (Toprol Xl) 25 mg PO DAILY [facility] Last Admin: 07/29/18 12:41 Dose: Not Given Morphine Sulfate (Morphine) 2 mg IVP Q3H PRN PRN Reason: Pain, severe (8-10) Pantoprazole Sodium (Protonix Inj) 40 mg IVP DAILY [facility] Last Admin: 08/03/18 09:12 Dose: 40 mg - Labs Labs: 08/03/18 07:00 08/03/18 06:14 PT 16.1 SECONDS (9.4-12.5) H 08/03/18 06:14 INR 1.39 08/03/18 06:14 APTT 34.7 Seconds (25.1-36.5) 08/02/18 07:00 - Constitutional Appears: Non-toxic, No Acute Distress - Head Exam Head Exam: ATRAUMATIC, NORMOCEPHALIC - ENT Exam ENT Exam: Mucous Membranes Moist - Respiratory Exam Additional comments: Intubated PRVC - GI/Abdominal Exam GI & Abdominal Exam: Soft. absent: Distended, Firm, Guarding, Rigid, Tenderness, Rebound - Rectal Exam Additional comments: Rectal tube in place - Extremities Exam Extremities Exam: absent: Calf Tenderness - Neurological Exam Neurological Exam: absent: Alert, Awake, Oriented x3 Assessment and Plan - Assessment and Plan (Free Text) Assessment: 63F w. cirrhosis / hepatic encephalopathy presenting w. LGI bleed Plan: -c/w serial CBC -Recommend transfuse prn, maintain Hgb >7, plts >50, INR<1.5 -GI planning for repeat C-scope, will f/u results -will continue to follow, no plans for surgical intervention at this time -d/w attending Christine PGY4
--- NOTE | 2018-08-03 13:07 | CP.PCM.PN ---
Subjective - Date & Time of Evaluation Date of Evaluation: 08/03/18 Time of Evaluation: 09:00 - Subjective Subjective: PGY-2 heme/onc progress note for Dr Christiano Medellin No acute events noted overnight. Per nursing note, liquid black stool was noted during fecal management. Patient is intubated and sedated - ROS not obtainable. Objective - Vital Signs/Intake and Output Vital Signs (last 24 hours): Temp Pulse Resp BP Pulse Ox 96.1 F L 72 14 97/60 L 98 08/03/18 10:00 08/03/18 11:15 08/02/18 11:15 08/03/18 10:00 08/03/18 10:00 Intake and Output: 08/03/18 08/03/18 06:59 18:59 Intake Total 1658 552 Output Total 425 Balance 1233 552 - Medications Medications: Current Medications Guaifenesin/Dextromethorphan (Robitussin Dm) 5 ml PO Q4H PRN PRN Reason: Cough Meropenem (Merrem Iv 1 Gm Premix) 1 gm in 50 mls @ 100 mls/hr IVPB Q8 [facility]; Protocol Stop: 08/08/18 11:17 Last Admin: 08/03/18 05:37 Dose: 100 mls/hr Levetiracetam (Keppra 1000mg/100ml Ns) 100 mls @ 460 mls/hr IV Q12 [facility] Last Admin: 08/03/18 09:12 Dose: 460 mls/hr Sodium Chloride (Sodium Chloride 0.9%) 1,000 mls @ 100 mls/hr IV .Q10H [facility] Last Admin: 08/03/18 09:21 Dose: 100 mls/hr Lactulose (Enulose) 20 gm NG BID [facility] Metoprolol Succinate (Toprol Xl) 25 mg PO DAILY [facility] Last Admin: 07/29/18 12:41 Dose: Not Given Morphine Sulfate (Morphine) 2 mg IVP Q3H PRN PRN Reason: Pain, severe (8-10) Pantoprazole Sodium (Protonix Inj) 40 mg IVP DAILY [facility] Last Admin: 08/03/18 09:12 Dose: 40 mg - Labs Labs: 08/03/18 07:00 08/03/18 06:14 PT 16.1 SECONDS (9.4-12.5) H 08/03/18 06:14 INR 1.39 08/03/18 06:14 APTT 34.7 Seconds (25.1-36.5) 08/02/18 07:00 - Additional Findings Additional findings: - Constitutional Appears: Well, Non-toxic, No Acute Distress, Other (intubated) - Head Exam Head Exam: ATRAUMATIC, NORMAL INSPECTION, NORMOCEPHALIC - Eye Exam Eye Exam: PERRL - ENT Exam ENT Exam: Mucous Membranes Moist Additional comments: dentition poor - Respiratory Exam Respiratory Exam: Clear to Ausculation Bilateral, NORMAL BREATHING PATTERN Additional comments: currently intubated. ET tube secured and in place - Cardiovascular Exam Cardiovascular Exam: REGULAR RHYTHM, RRR - GI/Abdominal Exam GI & Abdominal Exam: Distended (mild), Soft, Hypoactive Bowel Sounds - Extremities Exam Extremities Exam: Normal Capillary Refill, Normal Inspection, Pedal Edema (+1/2) - Neurological Exam Additional comments: AAOx0 currently. unresponsive as patient is on propofol sedation - Skin Skin Exam: Dry, Intact, Normal Color Assessment and Plan - Assessment and Plan (Free Text) Plan: 63 year old female with past medical history of alcoholic cirrhosis, esophageal varices, PUD, spinal stenosis, arthritis, DJD, CVA, seizure, and osteoporosis presents with multiple episodes of bloody bowel movements. Pancytopenia -Patient's labs c/w possible chronic DIC -If evidence of bleeding would transfuse for plts <30. -transfuse 2 units of cyroprecipitate - spoke to nurse Crowe about this being a special order in [facility] * cryoprecipitate would be a better choice due to higher levels of fibrinogen -Repeat DIC panel -f/u fibrinogen level Case discussed with Dr Medellin
--- NOTE | 2018-08-03 17:00 | CP.PCM.PN ---
Subjective - Date & Time of Evaluation Date of Evaluation: 08/03/18 Time of Evaluation: 11:30 - Subjective Subjective: Still on the vent, no fevers overnight. Objective - Vital Signs/Intake and Output Vital Signs (last 24 hours): Temp Pulse Resp BP Pulse Ox 98.4 F 79 14 121/73 99 08/02/18 18:15 08/02/18 18:15 08/02/18 11:15 08/02/18 18:15 08/02/18 18:15 Intake and Output: 08/02/18 08/03/18 18:59 06:59 Intake Total 1928 Output Total 400 Balance 1528 - Medications Medications: Current Medications Acetaminophen (Tylenol 325mg Tab) 650 mg PO Q6H PRN PRN Reason: Headache Last Admin: 07/30/18 14:32 Dose: 650 mg Guaifenesin/Dextromethorphan (Robitussin Dm) 5 ml PO Q4H PRN PRN Reason: Cough Meropenem (Merrem Iv 1 Gm Premix) 1 gm in 50 mls @ 100 mls/hr IVPB Q8 [facility]; Protocol Stop: 08/08/18 11:17 Last Admin: 08/02/18 21:09 Dose: 100 mls/hr Levetiracetam (Keppra 1000mg/100ml Ns) 100 mls @ 460 mls/hr IV Q12 [facility] Last Admin: 08/02/18 21:08 Dose: 460 mls/hr Propofol (Diprivan) 1,000 mg in 100 mls @ 1.905 mls/hr IV .Q24H PRN; Protocol PRN Reason: TITRATE PER MD ORDER Last Admin: 08/02/18 17:26 Dose: 30 mcg/kg/min, 11.431 mls/hr Sodium Chloride (Sodium Chloride 0.9%) 1,000 mls @ 100 mls/hr IV .Q10H [facility] Last Admin: 08/02/18 07:06 Dose: 100 mls/hr Metoprolol Succinate (Toprol Xl) 25 mg PO DAILY [facility] Last Admin: 07/29/18 12:41 Dose: Not Given Morphine Sulfate (Morphine) 2 mg IVP Q3H PRN PRN Reason: Pain, severe (8-10) Pantoprazole Sodium (Protonix Inj) 40 mg IVP DAILY [facility] Last Admin: 08/02/18 10:40 Dose: 40 mg - Labs Labs: 08/02/18 16:52 08/02/18 16:52 PT 18.9 SECONDS (9.4-12.5) H 08/02/18 07:00 INR 1.63 08/02/18 07:00 APTT 34.7 Seconds (25.1-36.5) 08/02/18 07:00 - Constitutional Appears: Chronically Ill, Other (intubated) - Head Exam Head Exam: NORMAL INSPECTION - ENT Exam Additional comments: Et tube in place - Respiratory Exam Respiratory Exam: Decreased Breath Sounds - Cardiovascular Exam Cardiovascular Exam: +S1, +S2 - GI/Abdominal Exam GI & Abdominal Exam: Soft. absent: Tenderness Assessment and Plan - Assessment and Plan (Free Text) Plan: Assessment SIRS with VDRF due to acute GI bleed with esophageal varices in this patient with liver cirrhosis from alcohol abuse history of systemic inflammatory response syndrome in this patient with acute left sided intra-cranial hemorrhage S/P ventilator-dependent respiratory failure, consider UTI due to Salmonella Group C history of treatment for HCAP hyperbilirubinemia probably related to chronic liver disease / liver cirrhosis ethanol abuse liver cirrhosis with esophageal varices S/P banding in 2014 arthritis history of spinal stenosis Plan continue Merrem day 5 of 7 days will continue to monitor clinically
--- NOTE | 2018-08-03 18:36 | RAD ---
Date of service: 08/03/2018 HISTORY: Confirm NG tube placement COMPARISON: 08/03/2018 FINDINGS: Nasogastric tube terminates in the stomach. The right IJV line terminates at the cavoatrial junction. LUNGS: The right lung is clear. There is mild pulmonary venous congestion. There is airspace disease in the left lower lobe. PLEURA: No right pleural effusion or pneumothorax. The left costophrenic angle is obscured by multiple leads and wires. CARDIOVASCULAR: The heart is normal in size. No aortic atherosclerotic calcifications present. OSSEOUS STRUCTURES: Within normal limits for the patient's age. VISUALIZED UPPER ABDOMEN: Normal. OTHER FINDINGS: None. IMPRESSION: Nasogastric tube terminates in the stomach. Question of left lower lobe atelectasis/pneumonia.
[2018-08-04] MEDS ORDERED: Vitamin A/D oint 60G TP PRN (03:12)
[2018-08-04] MEDS: Meropenem IV 1 gm in NS 1 GM/50 ML BAG IVPB SCH ×4 (05:16→22:19)
[2018-08-04 05:24] LABS: ARTERIAL BLOOD GAS HCO3 18.6 mmol/L (21-28); ARTERIAL BLOOD GAS HEMOGLOBIN 9.4 g/dL (11.7-17.4); ARTERIAL BLOOD GAS O2 CAPACITY 12.9 mL/dl (16-24); ARTERIAL BLOOD GAS O2 CONTENT 12.7 ML/dl (15-23); ARTERIAL BLOOD GAS O2 SAT 98.2 % (95-98); ARTERIAL BLOOD GAS PCO2 28 mm/Hg (35-45); ARTERIAL BLOOD GAS PH 7.43 (7.35-7.45); ARTERIAL BLOOD GAS TCO2 19.5 mmol.L (22-28)
[2018-08-04 06:54] LABS: BASO # 0.03 K/mm3 (0.0-2.0); EOS # 0.1 (0.0-0.7); EOS % 3.5 % (1.5-5.0); GRAN # 1.75 (1.4-6.5); GRAN % 56.4 % (50.0-68.0); HEMOGLOBIN 9.3 g/dL (12.0-16.0); LYMPH # 0.7 (1.2-3.4); LYMPH % 22.6 % (22.0-35.0); MEAN CELL VOLUME 92.4 fl (80.0-105.0); MEAN CORPUSCULAR HEMOGLOBIN 30.8 pg (25.0-35.0); MEAN CORPUSCULAR HGB CONC 33.3 g/dl (31.0-37.0); MEAN PLATELET VOLUME 10.4 fl (7.0-11.0); MONO # 0.5 (0.1-0.6); MONO % 16.5 % (1.0-6.0); RBC 3.02 10^6/uL (3.5-6.1); RED CELL DISTRIBUTION WIDTH 19.5 % (11.5-14.5); WHITE BLOOD COUNT 3.1 10^3/uL (4.5-11.0)
[2018-08-04 07:11] LABS: INR 1.39; PARTIAL THROMBOPLASTIN TIME 29.1 Seconds (25.1-36.5); PROTHROMBIN TIME 16.1 SECONDS (9.4-12.5)
[2018-08-04 07:29] LABS: PLATELET COUNT 28 10^3/uL (120.0-450.0)
[2018-08-04 07:36] LABS: ALB/GLOB RATIO 0.7 (1.1-1.8); ALBUMIN 2.2 g/dL (3.0-4.8); ALT/SGPT 53 U/L (7-56); AST/SGOT 133 U/L (14-36); BLOOD UREA NITROGEN 22 mg/dL (7-21); CALCIUM 8.6 mg/dL (8.4-10.5); GFR NON-AFRICAN AMERICAN > 60
--- NOTE | 2018-08-04 07:39 | CP.CCUPN ---
<Alma Abbott - Last Filed: 08/04/18 11:06> CCU Subjective - Physician Review Subjective (Free Text): Alma Abbott, PGY-1, ICU Progress Note for Dr. Orosco CC: multiple bloody bowel movements Patient seen and evaluated at bedside. Patient had no significant overnight events. Patient was AAOx2 at bedside, oriented to person and place but not year. Patient was however, able to correctly identify the president. Patient is currently altered and had delusions regarding physicians and nurses. Patient currently has no acute complaints but continues to comment on how her family is not here. 12-point ROS was unreliable due to patient's mental status. CCU Objective - Vital Signs / Intake & Output Intake and Output (Last 8hrs): Intake & Output 08/03/18 08/04/18 08/04/18 22:59 06:59 14:59 Intake Total 538 Output Total 650 Balance -112 Intake: IV 538 Right Internal Jugular 538 Output: Urine 550 Urethral (Donahue) 550 Stool 100 - Physical Exam Head: Positive for: Atraumatic, Normocephalic Pupils: Positive for: PERRL, Other (Reactive equally bilaterally). Negative for: Pinpoint (Miotic) Extroacular Muscles: Positive for: EOMI Mouth: Positive for: Moist Mucous Membranes, Dry, Other (poor dentition). Negative for: Normal Teeth (poor dentition) Neck: Positive for: Normal Range of Motion Respiratory/Chest: Positive for: Clear to Auscultation, Good Air Exchange. Negative for: Respiratory Distress, Accessory Muscle Use Cardiovascular: Positive for: Normal S1, S2, Tachycardic. Negative for: Murmurs Abdomen: Positive for: Distention. Negative for: Tenderness (unable to be ascertained), Peritoneal Signs Rectal: Positive for: Gross Blood, Melena (stool has started to lighten and is more green), Hemorrhoids (external nonthrombosed hemmorhoids), Other (rectal tube intact) Back: Positive for: Normal Inspection Upper Extremity: Positive for: Normal Inspection, NORMAL PULSES. Negative for: Cyanosis, Edema Lower Extremity: Positive for: Normal Inspection, NORMAL PULSES, Swelling (trace pedal edema). Negative for: Edema, Mica's Sign, Tenderness Neurological: Positive for: GCS=15, CN II-XII Intact, Speech Normal, Motor Func Grossly Intact Skin: Positive for: Warm, Dry, Pale. Negative for: Rashes, Normal Color Psychiatric: Positive for: Alert, Oriented x 3. Negative for: Normal Insight, Normal Concentration - Medications Active Medications: Active Medications Generic Name Dose Route Start Last Admin Trade Name Freq PRN Reason Stop Dose Admin Guaifenesin/Dextromethorphan 5 ml 07/30/18 09:04 Robitussin Dm PO Q4H PRN Cough Meropenem 1 gm in 50 mls @ 100 mls/hr 07/30/18 11:16 08/04/18 05:16 Merrem Iv 1 Gm Premix IVPB 08/08/18 11:17 100 mls/hr Q8 STEVEN Administration Protocol Levetiracetam 100 mls @ 460 mls/hr 07/31/18 11:00 08/03/18 09:12 Keppra 1000mg/100ml Ns IV 460 mls/hr Q12 STEVEN Administration Sodium Chloride 1,000 mls @ 100 mls/hr 08/01/18 10:45 08/03/18 21:11 Sodium Chloride 0.9% IV 100 mls/hr .Q10H STEVEN Administration Lactulose 20 gm 08/03/18 18:00 08/03/18 18:11 Enulose NG 20 gm BID STEVEN Administration Metoprolol Succinate 25 mg 07/29/18 11:00 07/29/18 12:41 Toprol Xl PO Not Given DAILY STEVEN Morphine Sulfate 2 mg 07/31/18 16:08 Morphine IVP Q3H PRN Pain, severe (8-10) Pantoprazole Sodium 40 mg 07/31/18 10:47 08/03/18 09:12 Protonix Inj IVP 40 mg DAILY STEVEN Administration Vitamin A 1 applic 08/04/18 03:12 Vitamin A&D TP Q8 PRN Dry skin - Patient Studies Lab Studies: Microbiology Studies 07/30/18 17:31 Blood Culture - Preliminary Blood NO GROWTH AFTER 4 DAYS 07/30/18 17:31 Blood Culture - Preliminary Blood NO GROWTH AFTER 4 DAYS Lab Studies 08/04/18 08/04/18 08/04/18 Range/Units 06:35 06:35 05:05 WBC 3.1 L (4.5-11.0) 10^3/uL RBC 3.02 L (3.5-6.1) 10^6/uL Hgb 9.3 L (12.0-16.0) g/dL Hct 27.9 L (36.0-48.0) % MCV 92.4 (80.0-105.0) fl MCH 30.8 (25.0-35.0) pg MCHC 33.3 (31.0-37.0) g/dl RDW 19.5 H (11.5-14.5) % Plt Count 28 L* (120.0-450.0) 10^3/uL Manual Plt Count (120-450) K/mm3 MPV 10.4 (7.0-11.0) fl Gran % 56.4 (50.0-68.0) % Lymph % (Auto) 22.6 (22.0-35.0) % [place] % (Auto) 16.5 H (1.0-6.0) % Eos % (Auto) 3.5 (1.5-5.0) % Baso % (Auto) 1.0 (0.0-3.0) % Gran # 1.75 (1.4-6.5) Lymph # (Auto) 0.7 L (1.2-3.4) [place] # (Auto) 0.5 (0.1-0.6) Eos # (Auto) 0.1 (0.0-0.7) Baso # (Auto) 0.03 (0.0-2.0) K/mm3 PT 16.1 H (9.4-12.5) SECONDS INR 1.39 APTT 29.1 (25.1-36.5) Seconds D-Dimer, Quantitative 4145 H (0-243) ng/mlDDU pCO2 28 L (35-45) mm/Hg pO2 74.0 L (80-100) mm/Hg HCO3 18.6 L (21-28) mmol/L ABG pH 7.43 (7.35-7.45) ABG Total CO2 19.5 L (22-28) mmol.L ABG O2 Saturation 98.2 H (95-98) % ABG O2 Content 12.7 L (15-23) ML/dl ABG Base Excess -4.8 L (-2.0-3.0) mmol/L ABG Hemoglobin 9.4 L (11.7-17.4) g/dL ABG Carboxyhemoglobin 2.4 H (0.5-1.5) % POC ABG HHb (Measured) 1.7 (0-5) % ABG Methemoglobin 0.8 (0.0-3.0) % ABG O2 Capacity 12.9 L (16-24) mL/dl Hgb O2 Saturation 95.2 (95.0-98.0) % FiO2 36.0 % Sodium (132-148) mmol/L Potassium (3.6-5.0) mmol/L Chloride (98-107) mmol/L Carbon Dioxide (21-33) mmol/L Anion Gap (10-20) BUN (7-21) mg/dL Creatinine (0.7-1.2) mg/dl Est GFR ( Amer) Est GFR (Non-Af Amer) Random Glucose (70-110) mg/dL Calcium (8.4-10.5) mg/dL Total Bilirubin (0.2-1.3) mg/dL AST (14-36) U/L ALT (7-56) U/L Alkaline Phosphatase (38-126) U/L Total Protein (5.8-8.3) g/dL Albumin (3.0-4.8) g/dL Globulin gm/dL Albumin/Globulin Ratio (1.1-1.8) Crossmatch 08/03/18 08/03/18 08/03/18 Range/Units 09:00 07:00 06:14 WBC 2.8 L (4.5-11.0) 10^3/uL RBC 2.96 L (3.5-6.1) 10^6/uL Hgb 9.1 L (12.0-16.0) g/dL Hct 27.0 L (36.0-48.0) % MCV 91.2 (80.0-105.0) fl MCH 30.7 (25.0-35.0) pg MCHC 33.7 (31.0-37.0) g/dl RDW 18.8 H (11.5-14.5) % Plt Count 32 L* (120.0-450.0) 10^3/uL Manual Plt Count 34 L* (120-450) K/mm3 MPV 10.2 (7.0-11.0) fl Gran % 67.2 (50.0-68.0) % Lymph % (Auto) 17.6 L (22.0-35.0) % [place] % (Auto) 10.9 H (1.0-6.0) % Eos % (Auto) 3.9 (1.5-5.0) % Baso % (Auto) 0.4 (0.0-3.0) % Gran # 1.91 (1.4-6.5) Lymph # (Auto) 0.5 L (1.2-3.4) [place] # (Auto) 0.3 (0.1-0.6) Eos # (Auto) 0.1 (0.0-0.7) Baso # (Auto) 0.01 (0.0-2.0) K/mm3 PT (9.4-12.5) SECONDS INR APTT (25.1-36.5) Seconds D-Dimer, Quantitative (0-243) ng/mlDDU pCO2 (35-45) mm/Hg pO2 (80-100) mm/Hg HCO3 (21-28) mmol/L ABG pH (7.35-7.45) ABG Total CO2 (22-28) mmol.L ABG O2 Saturation (95-98) % ABG O2 Content (15-23) ML/dl ABG Base Excess (-2.0-3.0) mmol/L ABG Hemoglobin (11.7-17.4) g/dL ABG Carboxyhemoglobin (0.5-1.5) % POC ABG HHb (Measured) (0-5) % ABG Methemoglobin (0.0-3.0) % ABG O2 Capacity (16-24) mL/dl Hgb O2 Saturation (95.0-98.0) % FiO2 % Sodium 145 (132-148) mmol/L Potassium 3.8 (3.6-5.0) mmol/L Chloride 122 H (98-107) mmol/L Carbon Dioxide 22 (21-33) mmol/L Anion Gap 5 L (10-20) BUN 24 H (7-21) mg/dL Creatinine 0.6 L (0.7-1.2) mg/dl Est GFR ( Amer) > 60 Est GFR (Non-Af Amer) > 60 Random Glucose 101 (70-110) mg/dL Calcium 8.3 L (8.4-10.5) mg/dL Total Bilirubin 3.6 H (0.2-1.3) mg/dL AST 134 H D (14-36) U/L ALT 58 H (7-56) U/L Alkaline Phosphatase 75 (38-126) U/L Total Protein 5.0 L (5.8-8.3) g/dL Albumin 2.2 L (3.0-4.8) g/dL Globulin 2.8 gm/dL Albumin/Globulin Ratio 0.8 L (1.1-1.8) Crossmatch 08/01/18 07/29/18 Range/Units 07:45 10:30 WBC (4.5-11.0) 10^3/uL RBC (3.5-6.1) 10^6/uL Hgb (12.0-16.0) g/dL Hct (36.0-48.0) % MCV (80.0-105.0) fl MCH (25.0-35.0) pg MCHC (31.0-37.0) g/dl RDW (11.5-14.5) % Plt Count (120.0-450.0) 10^3/uL Manual Plt Count (120-450) K/mm3 MPV (7.0-11.0) fl Gran % (50.0-68.0) % Lymph % (Auto) (22.0-35.0) % [place] % (Auto) (1.0-6.0) % Eos % (Auto) (1.5-5.0) % Baso % (Auto) (0.0-3.0) % Gran # (1.4-6.5) Lymph # (Auto) (1.2-3.4) [place] # (Auto) (0.1-0.6) Eos # (Auto) (0.0-0.7) Baso # (Auto) (0.0-2.0) K/mm3 PT (9.4-12.5) SECONDS INR APTT (25.1-36.5) Seconds D-Dimer, Quantitative (0-243) ng/mlDDU pCO2 (35-45) mm/Hg pO2 (80-100) mm/Hg HCO3 (21-28) mmol/L ABG pH (7.35-7.45) ABG Total CO2 (22-28) mmol.L ABG O2 Saturation (95-98) % ABG O2 Content (15-23) ML/dl ABG Base Excess (-2.0-3.0) mmol/L ABG Hemoglobin (11.7-17.4) g/dL ABG Carboxyhemoglobin (0.5-1.5) % POC ABG HHb (Measured) (0-5) % ABG Methemoglobin (0.0-3.0) % ABG O2 Capacity (16-24) mL/dl Hgb O2 Saturation (95.0-98.0) % FiO2 % Sodium (132-148) mmol/L Potassium (3.6-5.0) mmol/L Chloride (98-107) mmol/L Carbon Dioxide (21-33) mmol/L Anion Gap (10-20) BUN (7-21) mg/dL Creatinine (0.7-1.2) mg/dl Est GFR ( Amer) Est GFR (Non-Af Amer) Random Glucose (70-110) mg/dL Calcium (8.4-10.5) mg/dL Total Bilirubin (0.2-1.3) mg/dL AST (14-36) U/L ALT (7-56) U/L Alkaline Phosphatase (38-126) U/L Total Protein (5.8-8.3) g/dL Albumin (3.0-4.8) g/dL Globulin gm/dL Albumin/Globulin Ratio (1.1-1.8) Crossmatch See Detail See Detail Laboratory Results - last 24 hr 07/29/18 08/01/18 08/03/18 10:30 07:45 06:14 WBC RBC Hgb Hct MCV MCH MCHC RDW Plt Count Manual Plt Count MPV Gran % Lymph % (Auto) [place] % (Auto) Eos % (Auto) Baso % (Auto) Gran # Lymph # (Auto) [place] # (Auto) Eos # (Auto) Baso # (Auto) PT INR APTT D-Dimer, Quantitative pCO2 pO2 HCO3 ABG pH ABG Total CO2 ABG O2 Saturation ABG O2 Content ABG Base Excess ABG Hemoglobin ABG Carboxyhemoglobin POC ABG HHb (Measured) ABG Methemoglobin ABG O2 Capacity Hgb O2 Saturation FiO2 Sodium 145 Potassium 3.8 Chloride 122 H Carbon Dioxide 22 Anion Gap 5 L BUN 24 H Creatinine 0.6 L Est GFR ( Amer) > 60 Est GFR (Non-Af Amer) > 60 Random Glucose 101 Calcium 8.3 L Total Bilirubin 3.6 H AST 134 H D ALT 58 H Alkaline Phosphatase 75 Total Protein 5.0 L Albumin 2.2 L Globulin 2.8 Albumin/Globulin Ratio 0.8 L Crossmatch See Detail See Detail 08/03/18 08/03/18 08/04/18 07:00 09:00 05:05 WBC 2.8 L RBC 2.96 L Hgb 9.1 L Hct 27.0 L MCV 91.2 MCH 30.7 MCHC 33.7 RDW 18.8 H Plt Count 32 L* Manual Plt Count 34 L* MPV 10.2 Gran % 67.2 Lymph % (Auto) 17.6 L [place] % (Auto) 10.9 H Eos % (Auto) 3.9 Baso % (Auto) 0.4 Gran # 1.91 Lymph # (Auto) 0.5 L [place] # (Auto) 0.3 Eos # (Auto) 0.1 Baso # (Auto) 0.01 PT INR APTT D-Dimer, Quantitative pCO2 28 L pO2 74.0 L HCO3 18.6 L ABG pH 7.43 ABG Total CO2 19.5 L ABG O2 Saturation 98.2 H ABG O2 Content 12.7 L ABG Base Excess -4.8 L ABG Hemoglobin 9.4 L ABG Carboxyhemoglobin 2.4 H POC ABG HHb (Measured) 1.7 ABG Methemoglobin 0.8 ABG O2 Capacity 12.9 L Hgb O2 Saturation 95.2 FiO2 36.0 Sodium Potassium Chloride Carbon Dioxide Anion Gap BUN Creatinine Est GFR ( Amer) Est GFR (Non-Af Amer) Random Glucose Calcium Total Bilirubin AST ALT Alkaline Phosphatase Total Protein Albumin Globulin Albumin/Globulin Ratio Crossmatch 08/04/18 08/04/18 06:35 06:35 WBC 3.1 L RBC 3.02 L Hgb 9.3 L Hct 27.9 L MCV 92.4 MCH 30.8 MCHC 33.3 RDW 19.5 H Plt Count 28 L* Manual Plt Count MPV 10.4 Gran % 56.4 Lymph % (Auto) 22.6 [place] % (Auto) 16.5 H Eos % (Auto) 3.5 Baso % (Auto) 1.0 Gran # 1.75 Lymph # (Auto) 0.7 L [place] # (Auto) 0.5 Eos # (Auto) 0.1 Baso # (Auto) 0.03 PT 16.1 H INR 1.39 APTT 29.1 D-Dimer, Quantitative 4145 H pCO2 pO2 HCO3 ABG pH ABG Total CO2 ABG O2 Saturation ABG O2 Content ABG Base Excess ABG Hemoglobin ABG Carboxyhemoglobin POC ABG HHb (Measured) ABG Methemoglobin ABG O2 Capacity Hgb O2 Saturation FiO2 Sodium Potassium Chloride Carbon Dioxide Anion Gap BUN Creatinine Est GFR ( Amer) Est GFR (Non-Af Amer) Random Glucose Calcium Total Bilirubin AST ALT Alkaline Phosphatase Total Protein Albumin Globulin Albumin/Globulin Ratio Crossmatch Radiology Impressions: Radiology Impressions Chest X-Ray 08/03/18 07:00 IMPRESSION: Moderate vascular congestion. Central lines and tubes unchanged in position Chest X-Ray 08/03/18 17:50 IMPRESSION: Nasogastric tube terminates in the stomach. Question of left lower lobe atelectasis/pneumonia. Review of Systems - Review of Systems Systems not reviewed;Unavailable: Altered Mental Status Critical Care Progress Note - Ventilator Checklist Head of Bed 30 Degrees: Yes PUD Prophalyxis: Yes DVT Prophylaxis: Yes - Extremities/Vascular Does the Patient have a Central Venous Catheter?: Yes - Nutrition Nutrition: Nutrition Category Date Time Status NPO Diet [DIET] Diets 07/31/18 Breakfast Ordered Assessment/Plan - Assessment and Plan (Free Text) Assessment: 63 year old female with past medical history of alcoholic cirrhosis, esophageal varices, PUD, spinal stenosis, arthritis, DJD, CVA, seizure, and osteoporosis presents with multiple episodes of bloody bowel movements. As per Bleeding scan and Vascular procedure, bleed is likely from celiac axis at patent splenic flexure of colon. GI Bleed of unknown source Hypoxic respiratory failure Alcoholic Cirrhosis DJD History of CVA History of seizure Osteoporosis Plan: Neuro: Altered mental status -AAOx2, extubated, no FND, moving extremities past midline -Follow up ammonia level to evaluate for hepatic encephalopathy. Seizure history -Patient has history of seizures -Keppra level on 07/28: elevated at 59.2 -Keppra held until blood level normalizes. -Recheck keppra level daily. -Monitor neuro status. -Reorient patient as necessary. Cardio: Hypotension 2/2 to hypovolemia -RRR, currently normotensive -EKG from 07/31: sinus tachycardia with HR of 153 -Patient is currently off of any vasopressors -Continue IV NS at 100 cc/hr -Metoprolol Succinate currently held. -Maintain MAP>65. -Monitor for S/S, HD compromise. Pulm: History of Respiratory failure s/p unresponsiveness after endoscopy -Currently extubated -CXR 08/04: NG tube currently coiled in stomach, moderate vascular congestion -ABG 08/04: pH: 7.43, pCO2: 28, pO2: 74, FiO2: 40% -Maintain O2 saturation>95%. -NG tube was removed. -Head of bed 30 degrees -Conservative fluid management -Protective oral hygiene GI: Multiple bloody bowel movements with unknown source of bleed -Patient has history of colonic AVMs, alcohol cirrhosis, esophageal varices, and peptic ulcer disease. -Hemoglobin has been stable at 9.3 on 08/04. -Patient is status post 9 U PRBCs, 4 U FFP, and 2 U of platelet pharesis, 2 U of cryoprecipitate -Endoscopy on 07/29 showed moderate portal hypertensive gastropathy, Sanchez's esophagus in lower 1/3 of esophagus, varix in 2nd part of the duodenum, and grade 1 varix in middle 1/3 of esophagus -Nuclear Bleed Scan on 07/31: showed likely bleed in splenic flexure -Celiac, SMA, and POOJA arteriogram on 07/31: showed likely bleed from celiax axis supporting evidence of bleed from splenic flexure -Flexible sigmoidoscopy on 07/31: up to 110 cm, but bloody throughout limiting view and unable to locate specific source of bleed. -Ammonia level 08/04: normal at 25 -Continue Lactulose 20 gm PO BID for elevated ammonia -As per Dr. Vernon, GI, plan is to do colonoscopy Friday once hemodynamically stable to locate and possibly treat source of bleed -Continue to follow recommendations by Dr. Vernon History of cirrhosis -Start spironolactone 25 mg PO BID, lasix 40 mg IV daily Diet -NPO diet at this time. Patient currently has NG tube for oral medication. GI prophylaxis -Continue with Protonix 40 mg IV daily /Nephro: -BUN/Cr stable at 22/0.5. -Continue with NS at 100cc/hr -Donahue intact and urine output with yellow, clear urine. -Continue monitoring. -Replete electrolytes as needed. -Maintain euvolemia. Endocrinology: -Random glucose: 81 -Maintain euglycemia. Heme/Onc: Chronic DIC -H/H stable at 9.3/27.9 on 08/04. Last 3 hemoglobin values have been stable around 9. -WBC increased to 3.1 from 2.8. HIV Ab from 03/2018 was negative. -Platelet count 28 from 32 on 08/03. Manual count on 08/04 is 36 however. -D-dimer 08/04: increased to 4145 -Status post 9 U PRBCs, 4 U FFP, and 2 U of platelet pharesis, 2 U of cryoprecipitate -Transfuse PRBCs if Hgb<7 -Continue monitoring H/H. Follow up CBC at 18:00 -As per Jimenez Patel/Gem, patient should be transfused platelets if platelet level falls below 30. -As per Dr. Medellin, patient should be treated as if patient has chronic DIC. -Chronic DIC 2/2 to cirrhosis vs. multiple transfusions vs. malignancy. Doubt infectious or obstetric causes. -Continue to follow recommendations of Jimenez Patel/Onc ID: SIRS with unknown source of infection -Afebrile, leukopenic -Prior HIV Ab from 03/2018 was negative -BCx day 4, UCx, MRSA negative. -Continue Merrem 1 g Q8 day 6 of 7 as per ID for SIRS with unknown source of infection. -Monitor for signs and symptoms of infection. Patient seen and examined with Dr. Orosco. - Date & Time Date: 08/04/18 Time: 07:42 <Dylan Orosco - Last Filed: 08/04/18 14:52> CCU Objective - Vital Signs / Intake & Output Vital Signs (Last 4 hours): Vital Signs Temp Pulse Resp BP Pulse Ox 08/04/18 11:45 97.2 F L 93 H 24 107/62 96 08/04/18 11:31 97.2 F L 87 22 114/64 100 08/04/18 11:15 97.0 F L 88 22 108/66 99 08/04/18 11:00 97.0 F L 95 H 23 109/64 98 Intake and Output (Last 8hrs): Intake & Output 08/03/18 08/04/18 08/04/18 22:59 06:59 14:59 Intake Total 538 2775 Output Total 650 1100 Balance -112 1675 Intake: IV 538 2125 Right Internal Jugular 538 2125 Oral 650 Output: Urine 550 550 Urethral (Donahue) 550 550 Stool 100 550 - Medications Active Medications: Active Medications Generic Name Dose Route Start Last Admin Trade Name Freq PRN Reason Stop Dose Admin Furosemide 40 mg 08/04/18 10:15 08/04/18 10:42 Lasix IVP 40 mg DAILY STEVEN Administration Guaifenesin/Dextromethorphan 5 ml 07/30/18 09:04 Robitussin Dm PO Q4H PRN Cough Meropenem 1 gm in 50 mls @ 100 mls/hr 07/30/18 11:16 08/04/18 05:16 Merrem Iv 1 Gm Premix IVPB 08/08/18 11:17 100 mls/hr Q8 STEVEN Administration Protocol Levetiracetam 100 mls @ 460 mls/hr 07/31/18 11:00 08/03/18 09:12 Keppra 1000mg/100ml Ns IV 460 mls/hr Q12 STEVEN Administration Sodium Chloride 1,000 mls @ 100 mls/hr 08/01/18 10:45 08/04/18 09:08 Sodium Chloride 0.9% IV 100 mls/hr .Q10H STEVEN Administration Lactulose 20 gm 08/03/18 18:00 08/04/18 09:08 Enulose NG 20 gm BID STEVEN Administration Metoprolol Succinate 25 mg 07/29/18 11:00 07/29/18 12:41 Toprol Xl PO Not Given DAILY STEVEN Morphine Sulfate 2 mg 07/31/18 16:08 Morphine IVP Q3H PRN Pain, severe (8-10) Pantoprazole Sodium 40 mg 08/04/18 18:00 Protonix Inj IVP BID STEVEN Spironolactone 25 mg 08/04/18 10:15 08/04/18 10:42 Aldactone PO 25 mg BID STEVEN Administration Vitamin A 1 applic 08/04/18 03:12 Vitamin A&D TP Q8 PRN Dry skin - Patient Studies Lab Studies: Microbiology Studies 07/30/18 17:31 Blood Culture - Preliminary Blood NO GROWTH AFTER 4 DAYS 07/30/18 17:31 Blood Culture - Preliminary Blood NO GROWTH AFTER 4 DAYS Lab Studies 08/04/18 08/04/18 08/04/18 Range/Units 09:10 07:45 07:45 WBC (4.5-11.0) 10^3/uL RBC (3.5-6.1) 10^6/uL Hgb (12.0-16.0) g/dL Hct (36.0-48.0) % MCV (80.0-105.0) fl MCH (25.0-35.0) pg MCHC (31.0-37.0) g/dl RDW (11.5-14.5) % Plt Count (120.0-450.0) 10^3/uL Manual Plt Count 36 L* (120-450) K/mm3 MPV (7.0-11.0) fl Gran % (50.0-68.0) % Lymph % (Auto) (22.0-35.0) % [place] % (Auto) (1.0-6.0) % Eos % (Auto) (1.5-5.0) % Baso % (Auto) (0.0-3.0) % Gran # (1.4-6.5) Lymph # (Auto) (1.2-3.4) [place] # (Auto) (0.1-0.6) Eos # (Auto) (0.0-0.7) Baso # (Auto) (0.0-2.0) K/mm3 PT (9.4-12.5) SECONDS INR APTT (25.1-36.5) Seconds Fibrinogen 178 L (200-400) mg/dl Fibrin Degrad Products >40 ug/ml (< 10 ug/mL) D-Dimer, Quantitative (0-243) ng/mlDDU pCO2 (35-45) mm/Hg pO2 (80-100) mm/Hg HCO3 (21-28) mmol/L ABG pH (7.35-7.45) ABG Total CO2 (22-28) mmol.L ABG O2 Saturation (95-98) % ABG O2 Content (15-23) ML/dl ABG Base Excess (-2.0-3.0) mmol/L ABG Hemoglobin (11.7-17.4) g/dL ABG Carboxyhemoglobin (0.5-1.5) % POC ABG HHb (Measured) (0-5) % ABG Methemoglobin (0.0-3.0) % ABG O2 Capacity (16-24) mL/dl Hgb O2 Saturation (95.0-98.0) % FiO2 % Sodium (132-148) mmol/L Potassium (3.6-5.0) mmol/L Chloride (98-107) mmol/L Carbon Dioxide (21-33) mmol/L Anion Gap (10-20) BUN (7-21) mg/dL Creatinine (0.7-1.2) mg/dl Est GFR ( Amer) Est GFR (Non-Af Amer) Random Glucose (70-110) mg/dL Calcium (8.4-10.5) mg/dL Total Bilirubin (0.2-1.3) mg/dL AST (14-36) U/L ALT (7-56) U/L Alkaline Phosphatase (38-126) U/L Ammonia (9-33) umol/L Total Protein (5.8-8.3) g/dL Albumin (3.0-4.8) g/dL Globulin gm/dL Albumin/Globulin Ratio (1.1-1.8) 08/04/18 08/04/18 08/04/18 Range/Units 07:45 06:35 06:35 WBC 3.1 L (4.5-11.0) 10^3/uL RBC 3.02 L (3.5-6.1) 10^6/uL Hgb 9.3 L (12.0-16.0) g/dL Hct 27.9 L (36.0-48.0) % MCV 92.4 (80.0-105.0) fl MCH 30.8 (25.0-35.0) pg MCHC 33.3 (31.0-37.0) g/dl RDW 19.5 H (11.5-14.5) % Plt Count 28 L* (120.0-450.0) 10^3/uL Manual Plt Count (120-450) K/mm3 MPV 10.4 (7.0-11.0) fl Gran % 56.4 (50.0-68.0) % Lymph % (Auto) 22.6 (22.0-35.0) % [place] % (Auto) 16.5 H (1.0-6.0) % Eos % (Auto) 3.5 (1.5-5.0) % Baso % (Auto) 1.0 (0.0-3.0) % Gran # 1.75 (1.4-6.5) Lymph # (Auto) 0.7 L (1.2-3.4) [place] # (Auto) 0.5 (0.1-0.6) Eos # (Auto) 0.1 (0.0-0.7) Baso # (Auto) 0.03 (0.0-2.0) K/mm3 PT 16.1 H (9.4-12.5) SECONDS INR 1.39 APTT 29.1 (25.1-36.5) Seconds Fibrinogen (200-400) mg/dl Fibrin Degrad Products (< 10 ug/mL) D-Dimer, Quantitative 4145 H (0-243) ng/mlDDU pCO2 (35-45) mm/Hg pO2 (80-100) mm/Hg HCO3 (21-28) mmol/L ABG pH (7.35-7.45) ABG Total CO2 (22-28) mmol.L ABG O2 Saturation (95-98) % ABG O2 Content (15-23) ML/dl ABG Base Excess (-2.0-3.0) mmol/L ABG Hemoglobin (11.7-17.4) g/dL ABG Carboxyhemoglobin (0.5-1.5) % POC ABG HHb (Measured) (0-5) % ABG Methemoglobin (0.0-3.0) % ABG O2 Capacity (16-24) mL/dl Hgb O2 Saturation (95.0-98.0) % FiO2 % Sodium (132-148) mmol/L Potassium (3.6-5.0) mmol/L Chloride (98-107) mmol/L Carbon Dioxide (21-33) mmol/L Anion Gap (10-20) BUN (7-21) mg/dL Creatinine (0.7-1.2) mg/dl Est GFR ( Amer) Est GFR (Non-Af Amer) Random Glucose (70-110) mg/dL Calcium (8.4-10.5) mg/dL Total Bilirubin (0.2-1.3) mg/dL AST (14-36) U/L ALT (7-56) U/L Alkaline Phosphatase (38-126) U/L Ammonia 25 (9-33) umol/L Total Protein (5.8-8.3) g/dL Albumin (3.0-4.8) g/dL Globulin gm/dL Albumin/Globulin Ratio (1.1-1.8) 08/04/18 08/04/18 Range/Units 06:35 05:05 WBC (4.5-11.0) 10^3/uL RBC (3.5-6.1) 10^6/uL Hgb (12.0-16.0) g/dL Hct (36.0-48.0) % MCV (80.0-105.0) fl MCH (25.0-35.0) pg MCHC (31.0-37.0) g/dl RDW (11.5-14.5) % Plt Count (120.0-450.0) 10^3/uL Manual Plt Count (120-450) K/mm3 MPV (7.0-11.0) fl Gran % (50.0-68.0) % Lymph % (Auto) (22.0-35.0) % [place] % (Auto) (1.0-6.0) % Eos % (Auto) (1.5-5.0) % Baso % (Auto) (0.0-3.0) % Gran # (1.4-6.5) Lymph # (Auto) (1.2-3.4) [place] # (Auto) (0.1-0.6) Eos # (Auto) (0.0-0.7) Baso # (Auto) (0.0-2.0) K/mm3 PT (9.4-12.5) SECONDS INR APTT (25.1-36.5) Seconds Fibrinogen (200-400) mg/dl Fibrin Degrad Products (< 10 ug/mL) D-Dimer, Quantitative (0-243) ng/mlDDU pCO2 28 L (35-45) mm/Hg pO2 74.0 L (80-100) mm/Hg HCO3 18.6 L (21-28) mmol/L ABG pH 7.43 (7.35-7.45) ABG Total CO2 19.5 L (22-28) mmol.L ABG O2 Saturation 98.2 H (95-98) % ABG O2 Content 12.7 L (15-23) ML/dl ABG Base Excess -4.8 L (-2.0-3.0) mmol/L ABG Hemoglobin 9.4 L (11.7-17.4) g/dL ABG Carboxyhemoglobin 2.4 H (0.5-1.5) % POC ABG HHb (Measured) 1.7 (0-5) % ABG Methemoglobin 0.8 (0.0-3.0) % ABG O2 Capacity 12.9 L (16-24) mL/dl Hgb O2 Saturation 95.2 (95.0-98.0) % FiO2 36.0 % Sodium 144 (132-148) mmol/L Potassium 3.3 L (3.6-5.0) mmol/L Chloride 123 H (98-107) mmol/L Carbon Dioxide 21 (21-33) mmol/L Anion Gap 3 L (10-20) BUN 22 H (7-21) mg/dL Creatinine 0.5 L (0.7-1.2) mg/dl Est GFR ( Amer) > 60 Est GFR (Non-Af Amer) > 60 Random Glucose 81 (70-110) mg/dL Calcium 8.6 (8.4-10.5) mg/dL Total Bilirubin 3.0 H (0.2-1.3) mg/dL AST 133 H (14-36) U/L ALT 53 (7-56) U/L Alkaline Phosphatase 83 (38-126) U/L Ammonia (9-33) umol/L Total Protein 5.1 L (5.8-8.3) g/dL Albumin 2.2 L (3.0-4.8) g/dL Globulin 2.9 gm/dL Albumin/Globulin Ratio 0.7 L (1.1-1.8) Laboratory Results - last 24 hr 08/04/18 08/04/18 08/04/18 05:05 06:35 06:35 WBC 3.1 L RBC 3.02 L Hgb 9.3 L Hct 27.9 L MCV 92.4 MCH 30.8 MCHC 33.3 RDW 19.5 H Plt Count 28 L* Manual Plt Count MPV 10.4 Gran % 56.4 Lymph % (Auto) 22.6 [place] % (Auto) 16.5 H Eos % (Auto) 3.5 Baso % (Auto) 1.0 Gran # 1.75 Lymph # (Auto) 0.7 L [place] # (Auto) 0.5 Eos # (Auto) 0.1 Baso # (Auto) 0.03 PT INR APTT Fibrinogen Fibrin Degrad Products D-Dimer, Quantitative pCO2 28 L pO2 74.0 L HCO3 18.6 L ABG pH 7.43 ABG Total CO2 19.5 L ABG O2 Saturation 98.2 H ABG O2 Content 12.7 L ABG Base Excess -4.8 L ABG Hemoglobin 9.4 L ABG Carboxyhemoglobin 2.4 H POC ABG HHb (Measured) 1.7 ABG Methemoglobin 0.8 ABG O2 Capacity 12.9 L Hgb O2 Saturation 95.2 FiO2 36.0 Sodium 144 Potassium 3.3 L Chloride 123 H Carbon Dioxide 21 Anion Gap 3 L BUN 22 H Creatinine 0.5 L Est GFR ( Amer) > 60 Est GFR (Non-Af Amer) > 60 Random Glucose 81 Calcium 8.6 Total Bilirubin 3.0 H AST 133 H ALT 53 Alkaline Phosphatase 83 Ammonia Total Protein 5.1 L Albumin 2.2 L Globulin 2.9 Albumin/Globulin Ratio 0.7 L 08/04/18 08/04/18 08/04/18 06:35 07:45 07:45 WBC RBC Hgb Hct MCV MCH MCHC RDW Plt Count Manual Plt Count MPV Gran % Lymph % (Auto) [place] % (Auto) Eos % (Auto) Baso % (Auto) Gran # Lymph # (Auto) [place] # (Auto) Eos # (Auto) Baso # (Auto) PT 16.1 H INR 1.39 APTT 29.1 Fibrinogen 178 L Fibrin Degrad Products D-Dimer, Quantitative 4145 H pCO2 pO2 HCO3 ABG pH ABG Total CO2 ABG O2 Saturation ABG O2 Content ABG Base Excess ABG Hemoglobin ABG Carboxyhemoglobin POC ABG HHb (Measured) ABG Methemoglobin ABG O2 Capacity Hgb O2 Saturation FiO2 Sodium Potassium Chloride Carbon Dioxide Anion Gap BUN Creatinine Est GFR ( Amer) Est GFR (Non-Af Amer) Random Glucose Calcium Total Bilirubin AST ALT Alkaline Phosphatase Ammonia 25 Total Protein Albumin Globulin Albumin/Globulin Ratio 08/04/18 08/04/18 07:45 09:10 WBC RBC Hgb Hct MCV MCH MCHC RDW Plt Count Manual Plt Count 36 L* MPV Gran % Lymph % (Auto) [place] % (Auto) Eos % (Auto) Baso % (Auto) Gran # Lymph # (Auto) [place] # (Auto) Eos # (Auto) Baso # (Auto) PT INR APTT Fibrinogen Fibrin Degrad Products >40 ug/ml D-Dimer, Quantitative pCO2 pO2 HCO3 ABG pH ABG Total CO2 ABG O2 Saturation ABG O2 Content ABG Base Excess ABG Hemoglobin ABG Carboxyhemoglobin POC ABG HHb (Measured) ABG Methemoglobin ABG O2 Capacity Hgb O2 Saturation FiO2 Sodium Potassium Chloride Carbon Dioxide Anion Gap BUN Creatinine Est GFR ( Amer) Est GFR (Non-Af Amer) Random Glucose Calcium Total Bilirubin AST ALT Alkaline Phosphatase Ammonia Total Protein Albumin Globulin Albumin/Globulin Ratio Radiology Impressions: Radiology Impressions Chest X-Ray 08/03/18 17:50 IMPRESSION: Nasogastric tube terminates in the stomach. Question of left lower lobe atelectasis/pneumonia. Chest X-Ray 08/04/18 07:03 IMPRESSION: Nasogastric tube terminates in the mid esophagus. Repositioning is recommended. Worsening bilateral lower lobe airspace disease and pleural effusions. 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, seizure, peptic ulcer disease, admitted with GIB, likely lower GIB Patient underwent EGD (no active bleeding), and flex sig (active bleeding noted) Pt also went unsuccessful IR angiography, no active extravasation noted, no embolization Currently afebrile, HD stable, NOT on Vasopressor support, comfortable in NAD, extubated, on 2LNC, sat 98%, awake, but confused GI and surgery following HH and INR STABLE CXR with worsening congestion Coagulation profile and platelets likely consisting with chronic liver disease, rule out ??chronic DIC Acute GIB Cirrhosis EtOH abuse Thrombocytopenia Hx CVA Liver disease Coagulopathy Recommend: - cont with supp O2, goal sat 90%, Duonebs PRN - Abx as per ID - DC IVF - CBC q12hr - PPI IV BID - Lactulose, titrate to 2 BMs per day - Start Lasix 40mg IV BID - Spironolactone - GI ppx - DVT ppx - Monitor in MICU Full Code Critical care time 30 minutes
--- NOTE | 2018-08-04 07:41 | CP.PCM.PN ---
<Bruno Liflor - Last Filed: 08/04/18 09:51> Subjective - Date & Time of Evaluation Date of Evaluation: 08/04/18 Time of Evaluation: 08:15 - Subjective Subjective: PGY-4 GI Fellow Prog Note Pt lying in bed when seen this AM. Successfully liberated from vent this AM. Slow speaking but denied any complaints. 5 point ROS negative other than stated above. Objective - Vital Signs/Intake and Output Vital Signs (last 24 hours): Temp Pulse Resp BP Pulse Ox 97.2 F L 79 17 107/63 96 08/03/18 18:19 08/03/18 19:00 08/03/18 18:15 08/03/18 18:15 08/03/18 18:19 - Medications Medications: Current Medications Guaifenesin/Dextromethorphan (Robitussin Dm) 5 ml PO Q4H PRN PRN Reason: Cough Meropenem (Merrem Iv 1 Gm Premix) 1 gm in 50 mls @ 100 mls/hr IVPB Q8 [facility]; Protocol Stop: 08/08/18 11:17 Last Admin: 08/04/18 05:16 Dose: 100 mls/hr Levetiracetam (Keppra 1000mg/100ml Ns) 100 mls @ 460 mls/hr IV Q12 [facility] Last Admin: 08/03/18 09:12 Dose: 460 mls/hr Sodium Chloride (Sodium Chloride 0.9%) 1,000 mls @ 100 mls/hr IV .Q10H [facility] Last Admin: 08/03/18 21:11 Dose: 100 mls/hr Lactulose (Enulose) 20 gm NG BID [facility] Last Admin: 08/03/18 18:11 Dose: 20 gm Metoprolol Succinate (Toprol Xl) 25 mg PO DAILY [facility] Last Admin: 07/29/18 12:41 Dose: Not Given Morphine Sulfate (Morphine) 2 mg IVP Q3H PRN PRN Reason: Pain, severe (8-10) Pantoprazole Sodium (Protonix Inj) 40 mg IVP DAILY [facility] Last Admin: 08/03/18 09:12 Dose: 40 mg Vitamin A (Vitamin A&D) 1 applic TP Q8 PRN PRN Reason: Dry skin - Labs Labs: 08/04/18 06:35 08/04/18 06:35 PT 16.1 SECONDS (9.4-12.5) H 08/04/18 06:35 INR 1.39 08/04/18 06:35 APTT 29.1 Seconds (25.1-36.5) 08/04/18 06:35 - Constitutional Appears: Confused, Chronically Ill - Head Exam Head Exam: ATRAUMATIC, NORMAL INSPECTION - Eye Exam Eye Exam: EOMI, Scleral icterus - ENT Exam ENT Exam: Mucous Membranes Dry. absent: Mucous Membranes Moist - Respiratory Exam Respiratory Exam: NORMAL BREATHING PATTERN. absent: Accessory Muscle Use, Respiratory Distress - GI/Abdominal Exam GI & Abdominal Exam: Distended, Soft, Normal Bowel Sounds. absent: Bruit, Firm, Guarding, Rigid, Tenderness, Mass, Organomegaly, Pulsatile Mass Assessment and Plan - Assessment and Plan (Free Text) Assessment: 63 y/o female with alcoholic cirrhosis, PUD admitted for rectal bleeding. # Hematochezia, acute blood loss anemia: Given unstable vitals, increase BUN, and h/o cirrhosis, upper source investigated emergently on 07/29/18 with EGD without signs of active nor recent bleed. Therefore, suspect related to lower source, possibly R sided pathology given dark red. Ongoing bleeding with positive bleeding scan with bleeding pooled in LUQ, CSPY on 07/31/18 to 110 without clear source but diffuse blood limiting view. IR consulted, Angio w/o active bleed # Decompensated EtOH Cirrhosis: MELD-Na 24 on admission. Sober at least 3 months since CVA. - EV, PHG: Seen on EGD in 2014 s/p banding, small EV and PHG on 07/29/18 - Ascites: Once vitals improve rec abd US, hold diuretics and BP meds due to hypotension/GIB - HE: Worse due to active GI Bleed, lactulose PO or AK - HCC: Overdue for screening # Chronic DIC: Hematology following. 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 No biopsies taken due to coagulopathy/hemodynamic instability. 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 No signs of bleeding. Needs outpatient EUS. # H/o Colonic AVM, Diverticulosis # H/o CVA, seizure -EGD 06/2015: large esophageal varices (banded), salmon-colored mucose suspicious for martinez's esophagus -Last CSPY 06/2015: single non-bleeding colonic angiodysplastic lesion in cecum, one 7mm polyp sigmoid colon, diverticulosis in sigmoid colon, internal hemorrhoids Plan: - After discussion with Hematology, prefer to optimize from a DIC standpoint and reassess; will consider CSPY on 08/07/18 pending course - Gen Surgery consulted - On Meropenem per ID, agree for bacteremia in cirrhotic with GI bleed - PPI IV - Hold diuretics and BP meds due to hypotension/GIB - Will need outpatient EGD+EUS to evaluate Martinez's and possible duodenal varix should she improve clinically - Monitor CMP, CBC, INR Pt seen and examined with Dr. Vernon; please see attestation for further recs/changes. <Jean-Claude Vernon V - Last Filed: 08/05/18 00:05> Objective - Vital Signs/Intake and Output Vital Signs (last 24 hours): Temp Pulse Resp BP Pulse Ox 97.0 F L 84 18 107/58 L 94 L 08/04/18 17:45 08/04/18 19:00 08/04/18 17:45 08/04/18 17:45 08/04/18 17:45 Intake and Output: 08/04/18 08/05/18 18:59 06:59 Intake Total 3655 Output Total 2125 Balance 1530 - Medications Medications: Current Medications Furosemide (Lasix) 40 mg IVP DAILY [facility] Last Admin: 08/04/18 10:42 Dose: 40 mg Guaifenesin/Dextromethorphan (Robitussin Dm) 5 ml PO Q4H PRN PRN Reason: Cough Meropenem (Merrem Iv 1 Gm Premix) 1 gm in 50 mls @ 100 mls/hr IVPB Q8 [facility]; Protocol Stop: 08/08/18 11:17 Last Admin: 08/04/18 22:19 Dose: 100 mls/hr Levetiracetam (Keppra 1000mg/100ml Ns) 100 mls @ 460 mls/hr IV Q12 [facility] Last Admin: 08/03/18 09:12 Dose: 460 mls/hr Sodium Chloride (Sodium Chloride 0.9%) 1,000 mls @ 100 mls/hr IV .Q10H [facility] Last Admin: 08/04/18 09:08 Dose: 100 mls/hr Lactulose (Enulose) 20 gm NG BID [facility] Last Admin: 08/04/18 17:07 Dose: 20 gm Metoprolol Succinate (Toprol Xl) 25 mg PO DAILY [facility] Last Admin: 07/29/18 12:41 Dose: Not Given Morphine Sulfate (Morphine) 2 mg IVP Q3H PRN PRN Reason: Pain, severe (8-10) Pantoprazole Sodium (Protonix Inj) 40 mg IVP BID [facility] Last Admin: 08/04/18 17:07 Dose: 40 mg Spironolactone (Aldactone) 25 mg PO BID [facility] Last Admin: 08/04/18 17:06 Dose: 25 mg Vitamin A (Vitamin A&D) 1 applic TP Q8 PRN PRN Reason: Dry skin - Labs Labs: 08/04/18 18:10 08/04/18 06:35 PT 16.1 SECONDS (9.4-12.5) H 08/04/18 06:35 INR 1.39 08/04/18 06:35 APTT 29.1 Seconds (25.1-36.5) 08/04/18 06:35 Attending/Attestation - Attestation I have personally seen and examined this patient.: Yes I have fully participated in the care of the patient.: Yes I have reviewed all pertinent clinical information, including history, physical exam and plan: Yes Notes (Text): This is an addendum to GI progress report dictated by the GI Fellow.The patient was seen and examined earlier. Medical records, lab studies, imagings were reviewed. Last 24 hours events reviewed. Agreed with the above treatment plan as outlined in GI Fellow 's notes with the addition of the following 08/05/18 00:05
--- NOTE | 2018-08-04 08:44 | RAD ---
Date of service: 08/04/2018 HISTORY: evaluation COMPARISON: 08/03/2018. FINDINGS: The right IJV line terminates at the cavoatrial junction. The nasogastric tube terminates in the mid esophagus. LUNGS: The lungs are well inflated. There is moderate pulmonary venous congestion. There is airspace disease in both lower lobes. PLEURA: Suspect layering effusions. No pneumothorax. CARDIOVASCULAR: The heart is normal in size. No aortic atherosclerotic calcifications present. OSSEOUS STRUCTURES: Within normal limits for the patient's age. VISUALIZED UPPER ABDOMEN: Normal. OTHER FINDINGS: None. IMPRESSION: Nasogastric tube terminates in the mid esophagus. Repositioning is recommended. Worsening bilateral lower lobe airspace disease and pleural effusions.
[2018-08-04] MEDS: Sodium Chloride 0.9% 1,000 ML IV SCH (09:08)
--- NOTE | 2018-08-04 09:12 | CP.PCM.PN ---
Subjective - Date & Time of Evaluation Date of Evaluation: 08/04/18 Time of Evaluation: 09:04 - Subjective Subjective: PGY-2 heme/onc progress note for Dr Christiano Medellin No acute events overnight. Patient was extubated yesterday evening. Today she denied being in pain. She was AAOx2 (not oriented to year - believes it was 1981). Rectal tube with black output. Per nurse, patient has been incoherent throughout the night. Objective - Vital Signs/Intake and Output Vital Signs (last 24 hours): Temp Pulse Resp BP Pulse Ox 97.2 F L 63 17 107/63 96 08/03/18 18:19 08/04/18 07:00 08/03/18 18:15 08/03/18 18:15 08/03/18 18:19 Intake and Output: 08/04/18 08/04/18 06:59 18:59 Intake Total 1500 Output Total 550 Balance 950 - Medications Medications: Current Medications Guaifenesin/Dextromethorphan (Robitussin Dm) 5 ml PO Q4H PRN PRN Reason: Cough Meropenem (Merrem Iv 1 Gm Premix) 1 gm in 50 mls @ 100 mls/hr IVPB Q8 [facility]; Protocol Stop: 08/08/18 11:17 Last Admin: 08/04/18 05:16 Dose: 100 mls/hr Levetiracetam (Keppra 1000mg/100ml Ns) 100 mls @ 460 mls/hr IV Q12 [facility] Last Admin: 08/03/18 09:12 Dose: 460 mls/hr Sodium Chloride (Sodium Chloride 0.9%) 1,000 mls @ 100 mls/hr IV .Q10H [facility] Last Admin: 08/03/18 21:11 Dose: 100 mls/hr Potassium Chloride (Potassium Chloride 20 Meq/100 Ml) 20 meq in 100 mls @ 50 mls/hr IVPB Q2H [facility] Stop: 08/04/18 12:14 Lactulose (Enulose) 20 gm NG BID [facility] Last Admin: 08/03/18 18:11 Dose: 20 gm Metoprolol Succinate (Toprol Xl) 25 mg PO DAILY [facility] Last Admin: 07/29/18 12:41 Dose: Not Given Morphine Sulfate (Morphine) 2 mg IVP Q3H PRN PRN Reason: Pain, severe (8-10) Pantoprazole Sodium (Protonix Inj) 40 mg IVP DAILY [facility] Last Admin: 08/03/18 09:12 Dose: 40 mg Vitamin A (Vitamin A&D) 1 applic TP Q8 PRN PRN Reason: Dry skin - Labs Labs: 08/04/18 06:35 08/04/18 06:35 PT 16.1 SECONDS (9.4-12.5) H 08/04/18 06:35 INR 1.39 08/04/18 06:35 APTT 29.1 Seconds (25.1-36.5) 08/04/18 06:35 - Additional Findings Additional findings: - Constitutional Appears: Well, Non-toxic, No Acute Distress, - Head Exam Head Exam: ATRAUMATIC, NORMAL INSPECTION, NORMOCEPHALIC - Eye Exam Eye Exam: PERRL - ENT Exam ENT Exam: Mucous Membranes Moist Additional comments: dentition poor - Respiratory Exam Respiratory Exam: + rhonchi b/l, NORMAL BREATHING PATTERN Additional comments: - Cardiovascular Exam Cardiovascular Exam: REGULAR RHYTHM, RRR - GI/Abdominal Exam GI & Abdominal Exam: Distended (mild), Soft, Hypoactive Bowel Sounds - Extremities Exam Extremities Exam: Normal Capillary Refill, Normal Inspection, Pedal Edema (+1/2) - Neurological Exam Additional comments: AAOx2 currently. - Skin Skin Exam: Dry, Intact, Normal Color Assessment and Plan - Assessment and Plan (Free Text) Plan: 63 year old female with past medical history of alcoholic cirrhosis, esophageal varices, PUD, spinal stenosis, arthritis, DJD, CVA, seizure, and osteoporosis presents with multiple episodes of bloody bowel movements. Pancytopenia -Patient's labs c/w possible chronic DIC -If evidence of bleeding would transfuse for plts <30 -Received 5 units pooled cryoprecipitate 08/03/18 -Repeat DIC panel * uptrending d-dimer, fibrinogen level and fibrin degradation productions -we will transfuse 1 bag platelets today 08/04/18 and collect cbc 1 hour after to see response Case discussed with Dr Christiano Medellin
--- NOTE | 2018-08-04 09:27 | CP.PCM.PN ---
Subjective - Date & Time of Evaluation Date of Evaluation: 08/04/18 Time of Evaluation: 08:10 - Subjective Subjective: Surgery progress note, Dr. Brown Patient seen and examined at bedside. Extubated, awake but disoriented x2 with incoherent speech. She denied abdominal pain, N/V. Objective - Vital Signs/Intake and Output Vital Signs (last 24 hours): Temp Pulse Resp BP Pulse Ox 97.2 F L 63 17 107/63 96 08/03/18 18:19 08/04/18 07:00 08/03/18 18:15 08/03/18 18:15 08/03/18 18:19 Intake and Output: 08/04/18 08/04/18 06:59 18:59 Intake Total 1500 Output Total 550 Balance 950 - Medications Medications: Current Medications Guaifenesin/Dextromethorphan (Robitussin Dm) 5 ml PO Q4H PRN PRN Reason: Cough Meropenem (Merrem Iv 1 Gm Premix) 1 gm in 50 mls @ 100 mls/hr IVPB Q8 [facility]; Protocol Stop: 08/08/18 11:17 Last Admin: 08/04/18 05:16 Dose: 100 mls/hr Levetiracetam (Keppra 1000mg/100ml Ns) 100 mls @ 460 mls/hr IV Q12 [facility] Last Admin: 08/03/18 09:12 Dose: 460 mls/hr Sodium Chloride (Sodium Chloride 0.9%) 1,000 mls @ 100 mls/hr IV .Q10H [facility] Last Admin: 08/04/18 09:08 Dose: 100 mls/hr Potassium Chloride (Potassium Chloride 20 Meq/100 Ml) 20 meq in 100 mls @ 50 mls/hr IVPB Q2H [facility] Stop: 08/04/18 12:14 Last Admin: 08/04/18 09:07 Dose: 50 mls/hr Lactulose (Enulose) 20 gm NG BID [facility] Last Admin: 08/04/18 09:08 Dose: 20 gm Metoprolol Succinate (Toprol Xl) 25 mg PO DAILY [facility] Last Admin: 07/29/18 12:41 Dose: Not Given Morphine Sulfate (Morphine) 2 mg IVP Q3H PRN PRN Reason: Pain, severe (8-10) Pantoprazole Sodium (Protonix Inj) 40 mg IVP DAILY [facility] Last Admin: 08/04/18 09:07 Dose: 40 mg Vitamin A (Vitamin A&D) 1 applic TP Q8 PRN PRN Reason: Dry skin - Labs Labs: 08/04/18 06:35 08/04/18 06:35 PT 16.1 SECONDS (9.4-12.5) H 08/04/18 06:35 INR 1.39 08/04/18 06:35 APTT 29.1 Seconds (25.1-36.5) 08/04/18 06:35 - Constitutional Appears: No Acute Distress, Confused, Chronically Ill - Head Exam Head Exam: ATRAUMATIC, NORMAL INSPECTION, NORMOCEPHALIC - Eye Exam Eye Exam: EOMI, Normal appearance, PERRL Pupil Exam: NORMAL ACCOMODATION, PERRL - ENT Exam ENT Exam: Mucous Membranes Moist, Normal Exam - Respiratory Exam Respiratory Exam: Clear to Ausculation Bilateral, NORMAL BREATHING PATTERN - Cardiovascular Exam Cardiovascular Exam: REGULAR RHYTHM, +S1, +S2. absent: Murmur - GI/Abdominal Exam GI & Abdominal Exam: Soft, Normal Bowel Sounds. absent: Tenderness, Mass, Organomegaly - Rectal Exam Additional comments: Rectal tube in place - Extremities Exam Extremities Exam: Full ROM, Normal Capillary Refill, Normal Inspection. absent: Joint Swelling, Pedal Edema - Neurological Exam Neurological Exam: Altered, Awake - Psychiatric Exam Psychiatric exam: Anxious - Skin Skin Exam: Dry, Intact, Normal Color, Warm Assessment and Plan - Assessment and Plan (Free Text) Assessment: 63 y/o female with decompensated alcoholic cirrhosis, PUD admitted for rectal bleeding History of esophageal varices s/p band ligation Colonic AVM Chronic DIC Diverticulosis s/p CVA seizure Plan: -continue monitoring CBC -transfuse prn, maintain Hgb >7, plts >50, INR<1.5 -As per GI, repeat CSPY on 08/07/18 -no plans for surgical intervention at this time -additional recs as per Dr Kevin Hodges, DO
--- NOTE | 2018-08-04 12:47 | CP.PCM.PN ---
Subjective - Date & Time of Evaluation Date of Evaluation: 08/04/18 Time of Evaluation: 10:40 - Subjective Subjective: Patient remains extubated, awake and not in distress. Objective - Vital Signs/Intake and Output Vital Signs (last 24 hours): Temp Pulse Resp BP Pulse Ox 96.8 F L 72 14 103/62 100 08/03/18 15:28 08/03/18 15:28 08/02/18 11:15 08/03/18 15:30 08/03/18 15:28 Intake and Output: 08/03/18 08/03/18 06:59 18:59 Intake Total 1658 965 Output Total 425 Balance 1233 965 - Medications Medications: Current Medications Guaifenesin/Dextromethorphan (Robitussin Dm) 5 ml PO Q4H PRN PRN Reason: Cough Meropenem (Merrem Iv 1 Gm Premix) 1 gm in 50 mls @ 100 mls/hr IVPB Q8 [facility]; Protocol Stop: 08/08/18 11:17 Last Admin: 08/03/18 05:37 Dose: 100 mls/hr Levetiracetam (Keppra 1000mg/100ml Ns) 100 mls @ 460 mls/hr IV Q12 [facility] Last Admin: 08/03/18 09:12 Dose: 460 mls/hr Sodium Chloride (Sodium Chloride 0.9%) 1,000 mls @ 100 mls/hr IV .Q10H [facility] Last Admin: 08/03/18 09:21 Dose: 100 mls/hr Lactulose (Enulose) 20 gm NG BID [facility] Metoprolol Succinate (Toprol Xl) 25 mg PO DAILY [facility] Last Admin: 07/29/18 12:41 Dose: Not Given Morphine Sulfate (Morphine) 2 mg IVP Q3H PRN PRN Reason: Pain, severe (8-10) Pantoprazole Sodium (Protonix Inj) 40 mg IVP DAILY [facility] Last Admin: 08/03/18 09:12 Dose: 40 mg - Labs Labs: 08/03/18 07:00 08/03/18 06:14 PT 16.1 SECONDS (9.4-12.5) H 08/03/18 06:14 INR 1.39 08/03/18 06:14 APTT 34.7 Seconds (25.1-36.5) 08/02/18 07:00 - Constitutional Appears: Chronically Ill - Head Exam Head Exam: NORMAL INSPECTION - Neck Exam Neck Exam: absent: Meningismus - Respiratory Exam Respiratory Exam: Decreased Breath Sounds - Cardiovascular Exam Cardiovascular Exam: +S1, +S2 - GI/Abdominal Exam GI & Abdominal Exam: Soft. absent: Tenderness Assessment and Plan - Assessment and Plan (Free Text) Plan: Assessment SIRS with VDRF due to acute GI bleed with esophageal varices in this patient with liver cirrhosis from alcohol abuse history of systemic inflammatory response syndrome in this patient with acute left sided intra-cranial hemorrhage S/P ventilator-dependent respiratory failure, consider UTI due to Salmonella Group C history of treatment for HCAP hyperbilirubinemia probably related to chronic liver disease / liver cirrhosis ethanol abuse liver cirrhosis with esophageal varices S/P banding in 2014 arthritis history of spinal stenosis Plan continue Merrem day 6 of 7 days will continue to monitor clinically
[2018-08-04 18:26] LABS: BASO # 0.04 K/mm3 (0.0-2.0); BASO % 0.9 % (0.0-3.0); EOS # 0.1 (0.0-0.7); EOS % 2.5 % (1.5-5.0); GRAN # 2.51 (1.4-6.5); GRAN % 57.9 % (50.0-68.0); HEMOGLOBIN 9.3 g/dL (12.0-16.0); LYMPH # 0.9 (1.2-3.4); LYMPH % 20.5 % (22.0-35.0); MEAN CELL VOLUME 92.8 fl (80.0-105.0); MEAN CORPUSCULAR HEMOGLOBIN 30.6 pg (25.0-35.0); MEAN PLATELET VOLUME 10.2 fl (7.0-11.0); MONO # 0.8 (0.1-0.6); MONO % 18.2 % (1.0-6.0); RBC 3.04 10^6/uL (3.5-6.1); RED CELL DISTRIBUTION WIDTH 19.9 % (11.5-14.5); WHITE BLOOD COUNT 4.3 10^3/uL (4.5-11.0)
[2018-08-04 18:31] LABS: PLATELET COUNT 36 10^3/uL (120.0-450.0)
--- NOTE | 2018-08-04 21:26 | PN ---
DATE: 08/04/2018 SUBJECTIVE: The patient was seen this Friday morning in intensive care, CCU, bed 3. She is extubated, awake, still little groggy from her several days on IV Diprivan, which I would expect giving her degree of cirrhosis/hepatic insufficiency. There has been no further bleeding. Hemoglobin has remained stable. PLAN: She is scheduled for colonoscopy or sigmoidoscopy tomorrow. We will continue ICU and serial H and H, await gastrointestinal evaluation. Abilio Bass MD
[2018-08-05] MEDS: Meropenem IV 1 gm in NS 1 GM/50 ML BAG IVPB SCH ×3 (05:17→22:02)
[2018-08-05 06:56] LABS: BASO # 0.03 K/mm3 (0.0-2.0); BASO % 0.7 % (0.0-3.0); EOS # 0.1 (0.0-0.7); EOS % 2.1 % (1.5-5.0); GRAN # 2.78 (1.4-6.5); GRAN % 65.3 % (50.0-68.0); HEMOGLOBIN 9.1 g/dL (12.0-16.0); LYMPH # 0.8 (1.2-3.4); MEAN CELL VOLUME 93.8 fl (80.0-105.0); MEAN CORPUSCULAR HEMOGLOBIN 31.3 pg (25.0-35.0); MEAN CORPUSCULAR HGB CONC 33.3 g/dl (31.0-37.0); MEAN PLATELET VOLUME 9.4 fl (7.0-11.0); MONO # 0.6 (0.1-0.6); MONO % 12.9 % (1.0-6.0); RBC 2.91 10^6/uL (3.5-6.1); RED CELL DISTRIBUTION WIDTH 20.2 % (11.5-14.5); WHITE BLOOD COUNT 4.3 10^3/uL (4.5-11.0)
[2018-08-05 06:59] LABS: INR 1.46; PROTHROMBIN TIME 16.9 SECONDS (9.4-12.5)
[2018-08-05 07:26] LABS: ALB/GLOB RATIO 0.7 (1.1-1.8); ALT/SGPT 58 U/L (7-56); AST/SGOT 115 U/L (14-36); BLOOD UREA NITROGEN 20 mg/dL (7-21); CALCIUM 8.3 mg/dL (8.4-10.5); GFR NON-AFRICAN AMERICAN > 60; PLATELET COUNT 27 10^3/uL (120.0-450.0)
[2018-08-05 08:32] LABS: ARTERIAL BLOOD GAS HCO3 17.2 mmol/L (21-28); ARTERIAL BLOOD GAS HEMOGLOBIN 8.1 g/dL (11.7-17.4); ARTERIAL BLOOD GAS O2 CAPACITY 11.4 mL/dl (16-24); ARTERIAL BLOOD GAS O2 CONTENT 11.4 ML/dl (15-23); ARTERIAL BLOOD GAS PCO2 29 mm/Hg (35-45); ARTERIAL BLOOD GAS PH 7.38 (7.35-7.45); ARTERIAL BLOOD GAS TCO2 18.1 mmol.L (22-28)
--- NOTE | 2018-08-05 09:40 | CP.PCM.PN ---
<Sp Li - Last Filed: 08/05/18 17:38> Subjective - Date & Time of Evaluation Date of Evaluation: 08/05/18 Time of Evaluation: 07:30 - Subjective Subjective: PGY-4 GI Fellow Prog Note Pt lying in bed when seen this AM. Slow speaking but able to state location and thought date was FridayJuly 2017. Overall improved, denied abd pain or difficulty with diet. 5 point ROS negative other than stated above Objective - Vital Signs/Intake and Output Vital Signs (last 24 hours): Temp Pulse Resp BP Pulse Ox 97.6 F 91 H 28 H 109/63 94 L 08/05/18 04:00 08/05/18 07:00 08/05/18 04:00 08/05/18 09:01 08/04/18 17:45 - Medications Medications: Current Medications Furosemide (Lasix) 40 mg IVP DAILY [facility] Last Admin: 08/05/18 09:01 Dose: 40 mg Guaifenesin/Dextromethorphan (Robitussin Dm) 5 ml PO Q4H PRN PRN Reason: Cough Meropenem (Merrem Iv 1 Gm Premix) 1 gm in 50 mls @ 100 mls/hr IVPB Q8 [facility]; Protocol Stop: 08/08/18 11:17 Last Admin: 08/05/18 05:17 Dose: 100 mls/hr Levetiracetam (Keppra 1000mg/100ml Ns) 100 mls @ 460 mls/hr IV Q12 [facility] Last Admin: 08/03/18 09:12 Dose: 460 mls/hr Sodium Chloride (Sodium Chloride 0.9%) 1,000 mls @ 100 mls/hr IV .Q10H [facility] Last Admin: 08/04/18 09:08 Dose: 100 mls/hr Lactulose (Enulose) 20 gm NG BID [facility] Last Admin: 08/05/18 09:01 Dose: 20 gm Metoprolol Succinate (Toprol Xl) 25 mg PO DAILY [facility] Last Admin: 07/29/18 12:41 Dose: Not Given Morphine Sulfate (Morphine) 2 mg IVP Q3H PRN PRN Reason: Pain, severe (8-10) Pantoprazole Sodium (Protonix Inj) 40 mg IVP BID [facility] Last Admin: 08/05/18 09:01 Dose: 40 mg Spironolactone (Aldactone) 25 mg PO BID [facility] Last Admin: 08/05/18 09:00 Dose: 25 mg Vitamin A (Vitamin A&D) 1 applic TP Q8 PRN PRN Reason: Dry skin - Labs Labs: 08/05/18 06:30 08/05/18 06:30 PT 16.9 SECONDS (9.4-12.5) H 08/05/18 06:30 INR 1.46 08/05/18 06:30 APTT 29.1 Seconds (25.1-36.5) 08/04/18 06:35 - Constitutional Appears: No Acute Distress, Chronically Ill - Head Exam Head Exam: ATRAUMATIC, NORMAL INSPECTION - Eye Exam Eye Exam: EOMI, Scleral icterus - ENT Exam ENT Exam: Mucous Membranes Dry. absent: Mucous Membranes Moist - Respiratory Exam Respiratory Exam: NORMAL BREATHING PATTERN. absent: Accessory Muscle Use, Respiratory Distress - GI/Abdominal Exam GI & Abdominal Exam: Distended, Soft, Normal Bowel Sounds. absent: Bruit, Firm, Guarding, Rigid, Tenderness, Mass, Organomegaly, Pulsatile Mass Assessment and Plan - Assessment and Plan (Free Text) Assessment: 63 y/o female with alcoholic cirrhosis, PUD admitted for rectal bleeding. # Hematochezia, acute blood loss anemia: Given unstable vitals, increase BUN, and h/o cirrhosis, upper source investigated emergently on 07/29/18 with EGD without signs of active nor recent bleed. Therefore, suspect related to lower source, possibly R sided pathology given dark red. Ongoing bleeding with positive bleeding scan with bleeding pooled in LUQ, CSPY on 07/31/18 to 110 without clear source but diffuse blood limiting view. IR consulted, Angio w/o active bleed # Decompensated EtOH Cirrhosis: MELD-Na 24 on admission. Sober at least 3 months since CVA. - EV, PHG: Seen on EGD in 2014 s/p banding, small EV and PHG on 07/29/18 - Ascites: Plan to restart diuretics - HE: Lactulose - HCC: Overdue for screening # Chronic DIC: Hematology following. 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 No biopsies taken due to coagulopathy/hemodynamic instability. 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 No signs of bleeding. Needs outpatient EUS. # H/o Colonic AVM, Diverticulosis # H/o CVA, seizure -EGD 06/2015: large esophageal varices (banded), salmon-colored mucose suspicious for martinez's esophagus -Last CSPY 06/2015: single non-bleeding colonic angiodysplastic lesion in cecum, one 7mm polyp sigmoid colon, diverticulosis in sigmoid colon, internal hemorrhoids Plan: - Plan for CSPY on 08/07/18 - Clear Liq Diet - Prep in PM of 08/06 - Goal plts > 50, INR < 2, Hgb > 7 for CSPY - Check Abd US+Doppler eval ascites and PVT - Restart diuretics at Spironolactone 50 mg, Furosemide 20 mg PO QD - On metoprolol, discuss switching to non-selective BB for variceal ppx - Gen Surgery consulted - On Meropenem per ID, agree for bacteremia in cirrhotic with GI bleed - PPI IV QD - Will need outpatient EGD+EUS to evaluate Martinez's and possible duodenal varix should she improve clinically - Monitor CMP, CBC, INR Pt seen and examined with Dr. Vernon; please see attestation for further recs/changes. <Jean-Claude Vernon V - Last Filed: 08/05/18 23:51> Objective - Vital Signs/Intake and Output Vital Signs (last 24 hours): Temp Pulse Resp BP Pulse Ox 96.8 F L 78 23 127/85 94 L 08/05/18 16:49 08/05/18 19:00 08/05/18 16:45 08/05/18 16:45 08/05/18 16:00 Intake and Output: 08/05/18 08/06/18 18:59 06:59 Intake Total 1318 Output Total 1150 Balance 168 - Medications Medications: Current Medications Furosemide (Lasix) 20 mg PO DAILY [facility] Guaifenesin/Dextromethorphan (Robitussin Dm) 5 ml PO Q4H PRN PRN Reason: Cough Meropenem (Merrem Iv 1 Gm Premix) 1 gm in 50 mls @ 100 mls/hr IVPB Q8 [facility]; Protocol Stop: 08/08/18 11:17 Last Admin: 08/05/18 22:02 Dose: 100 mls/hr Levetiracetam (Keppra 1000mg/100ml Ns) 100 mls @ 460 mls/hr IV Q12 [facility] Last Admin: 08/03/18 09:12 Dose: 460 mls/hr Sodium Chloride (Sodium Chloride 0.9%) 1,000 mls @ 100 mls/hr IV .Q10H [facility] Last Admin: 08/05/18 15:25 Dose: 100 mls/hr Lactulose (Enulose) 20 gm NG BID [facility] Last Admin: 08/05/18 17:13 Dose: 20 gm Metoprolol Succinate (Toprol Xl) 25 mg PO DAILY [facility] Last Admin: 07/29/18 12:41 Dose: Not Given Morphine Sulfate (Morphine) 2 mg IVP Q3H PRN PRN Reason: Pain, severe (8-10) Pantoprazole Sodium (Protonix Inj) 40 mg IVP DAILY [facility] Spironolactone (Aldactone) 50 mg PO DAILY [facility] Vitamin A (Vitamin A&D) 1 applic TP Q8 PRN PRN Reason: Dry skin - Labs Labs: 08/05/18 06:30 08/05/18 06:30 PT 16.9 SECONDS (9.4-12.5) H 08/05/18 06:30 INR 1.46 08/05/18 06:30 APTT 29.1 Seconds (25.1-36.5) 08/04/18 06:35 Attending/Attestation - Attestation I have personally seen and examined this patient.: Yes I have fully participated in the care of the patient.: Yes I have reviewed all pertinent clinical information, including history, physical exam and plan: Yes Notes (Text): This is an addendum to GI progress report dictated by the GI Fellow. The patient was seen and examined earlier. Medical records, lab studies, imagings were reviewed. Last 24 hours events reviewed. Agreed with the above treatment plan as outlined in GI Fellow 's notes with the addition of the following 08/05/18 23:50
--- NOTE | 2018-08-05 11:37 | CP.PCM.PN ---
Subjective - Date & Time of Evaluation Date of Evaluation: 08/05/18 Time of Evaluation: 10:25 - Subjective Subjective: Surgery progress note, Dr. Brown Patient seen and examined at bedside. She awake but disoriented x2. She is feeling better, speaking in full sentences. She denied abdominal pain, N/V. Objective - Vital Signs/Intake and Output Vital Signs (last 24 hours): Temp Pulse Resp BP Pulse Ox 97.6 F 87 28 H 109/63 94 L 08/05/18 04:00 08/05/18 11:00 08/05/18 04:00 08/05/18 09:01 08/04/18 17:45 - Medications Medications: Current Medications Furosemide (Lasix) 40 mg IVP DAILY [facility] Last Admin: 08/05/18 09:01 Dose: 40 mg Guaifenesin/Dextromethorphan (Robitussin Dm) 5 ml PO Q4H PRN PRN Reason: Cough Meropenem (Merrem Iv 1 Gm Premix) 1 gm in 50 mls @ 100 mls/hr IVPB Q8 [facility]; Protocol Stop: 08/08/18 11:17 Last Admin: 08/05/18 05:17 Dose: 100 mls/hr Levetiracetam (Keppra 1000mg/100ml Ns) 100 mls @ 460 mls/hr IV Q12 [facility] Last Admin: 08/03/18 09:12 Dose: 460 mls/hr Sodium Chloride (Sodium Chloride 0.9%) 1,000 mls @ 100 mls/hr IV .Q10H [facility] Last Admin: 08/04/18 09:08 Dose: 100 mls/hr Lactulose (Enulose) 20 gm NG BID [facility] Last Admin: 08/05/18 09:01 Dose: 20 gm Metoprolol Succinate (Toprol Xl) 25 mg PO DAILY [facility] Last Admin: 07/29/18 12:41 Dose: Not Given Morphine Sulfate (Morphine) 2 mg IVP Q3H PRN PRN Reason: Pain, severe (8-10) Pantoprazole Sodium (Protonix Inj) 40 mg IVP BID [facility] Last Admin: 08/05/18 09:01 Dose: 40 mg Spironolactone (Aldactone) 25 mg PO BID [facility] Last Admin: 08/05/18 09:00 Dose: 25 mg Vitamin A (Vitamin A&D) 1 applic TP Q8 PRN PRN Reason: Dry skin - Labs Labs: 08/05/18 06:30 08/05/18 06:30 PT 16.9 SECONDS (9.4-12.5) H 08/05/18 06:30 INR 1.46 08/05/18 06:30 APTT 29.1 Seconds (25.1-36.5) 08/04/18 06:35 - Additional Findings Additional findings: - Constitutional Appears: No Acute Distress, Confused, Chronically Ill - Head Exam Head Exam: ATRAUMATIC, NORMAL INSPECTION, NORMOCEPHALIC - Eye Exam Eye Exam: EOMI, Normal appearance, PERRL Pupil Exam: NORMAL ACCOMODATION, PERRL - ENT Exam ENT Exam: Mucous Membranes Moist, Normal Exam - Respiratory Exam Respiratory Exam: Clear to Ausculation Bilateral, NORMAL BREATHING PATTERN - Cardiovascular Exam Cardiovascular Exam: REGULAR RHYTHM, +S1, +S2. absent: Murmur - GI/Abdominal Exam GI & Abdominal Exam: Soft, Normal Bowel Sounds. absent: Tenderness, Mass, Organomegaly - Rectal Exam Additional comments: Rectal tube in place - Extremities Exam Extremities Exam: Full ROM, Normal Capillary Refill, Normal Inspection. absent: Joint Swelling, Pedal Edema - Neurological Exam Neurological Exam: Altered, Awake - Psychiatric Exam Psychiatric exam: Anxious - Skin Skin Exam: Dry, Intact, Normal Color, Warm Assessment and Plan - Assessment and Plan (Free Text) Assessment: 63 y/o female with decompensated alcoholic cirrhosis, PUD admitted for rectal bleeding History of esophageal varices s/p band ligation Colonic AVM Chronic DIC Diverticulosis s/p CVA seizure Plan: -H/H stable, continue monitoring CBC, CMP -transfuse prn, maintain Hgb >7, plts >50, INR<1.5 -As per GI, repeat CSPY on 08/07/18 -no plans for surgical intervention at this time -additional recs as per surgical attending Dr. Kevin Hodges, DO
[2018-08-05] MEDS: Sodium Chloride 0.9% 1,000 ML IV SCH (15:25)
--- NOTE | 2018-08-05 18:16 | CP.PCM.PN ---
Subjective - Date & Time of Evaluation Date of Evaluation: 08/05/18 Time of Evaluation: 10:20 - Subjective Subjective: Comfortable in bed, no fevers. Objective - Vital Signs/Intake and Output Vital Signs (last 24 hours): Temp Pulse Resp BP Pulse Ox 97.2 F L 93 H 24 107/62 96 08/04/18 11:45 08/04/18 11:45 08/04/18 11:45 08/04/18 11:45 08/04/18 11:45 Intake and Output: 08/04/18 08/04/18 06:59 18:59 Intake Total 2225 Output Total 1100 Balance 1125 - Medications Medications: Current Medications Furosemide (Lasix) 40 mg IVP DAILY [facility] Last Admin: 08/04/18 10:42 Dose: 40 mg Guaifenesin/Dextromethorphan (Robitussin Dm) 5 ml PO Q4H PRN PRN Reason: Cough Meropenem (Merrem Iv 1 Gm Premix) 1 gm in 50 mls @ 100 mls/hr IVPB Q8 [facility]; Protocol Stop: 08/08/18 11:17 Last Admin: 08/04/18 05:16 Dose: 100 mls/hr Levetiracetam (Keppra 1000mg/100ml Ns) 100 mls @ 460 mls/hr IV Q12 [facility] Last Admin: 08/03/18 09:12 Dose: 460 mls/hr Sodium Chloride (Sodium Chloride 0.9%) 1,000 mls @ 100 mls/hr IV .Q10H [facility] Last Admin: 08/04/18 09:08 Dose: 100 mls/hr Lactulose (Enulose) 20 gm NG BID [facility] Last Admin: 08/04/18 09:08 Dose: 20 gm Metoprolol Succinate (Toprol Xl) 25 mg PO DAILY [facility] Last Admin: 07/29/18 12:41 Dose: Not Given Morphine Sulfate (Morphine) 2 mg IVP Q3H PRN PRN Reason: Pain, severe (8-10) Pantoprazole Sodium (Protonix Inj) 40 mg IVP BID [facility] Spironolactone (Aldactone) 25 mg PO BID [facility] Last Admin: 08/04/18 10:42 Dose: 25 mg Vitamin A (Vitamin A&D) 1 applic TP Q8 PRN PRN Reason: Dry skin - Labs Labs: 08/04/18 06:35 08/04/18 06:35 PT 16.1 SECONDS (9.4-12.5) H 08/04/18 06:35 INR 1.39 08/04/18 06:35 APTT 29.1 Seconds (25.1-36.5) 08/04/18 06:35 - Constitutional Appears: Chronically Ill - Head Exam Head Exam: NORMAL INSPECTION - Neck Exam Neck Exam: absent: Meningismus - Respiratory Exam Respiratory Exam: Decreased Breath Sounds - Cardiovascular Exam Cardiovascular Exam: +S1, +S2 - GI/Abdominal Exam GI & Abdominal Exam: Soft. absent: Tenderness Assessment and Plan - Assessment and Plan (Free Text) Plan: Assessment SIRS with VDRF due to acute GI bleed with esophageal varices in this patient with liver cirrhosis from alcohol abuse history of systemic inflammatory response syndrome in this patient with acute left sided intra-cranial hemorrhage S/P ventilator-dependent respiratory failure, consider UTI due to Salmonella Group C history of treatment for HCAP hyperbilirubinemia probably related to chronic liver disease / liver cirrhosis ethanol abuse liver cirrhosis with esophageal varices S/P banding in 2014 arthritis history of spinal stenosis Plan continue Merrem day 7 of 7 days will continue to monitor clinically
[2018-08-06] MEDS: Meropenem IV 1 gm in NS 1 GM/50 ML BAG IVPB SCH (06:29)
[2018-08-06 07:05] LABS: INR 1.44; PROTHROMBIN TIME 16.7 SECONDS (9.4-12.5)
[2018-08-06 07:10] LABS: BASO # 0.03 K/mm3 (0.0-2.0); BASO % 0.5 % (0.0-3.0); EOS # 0.1 (0.0-0.7); EOS % 1.9 % (1.5-5.0); HEMOGLOBIN 9.4 g/dL (12.0-16.0); LYMPH # 0.9 (1.2-3.4); LYMPH % 13.9 % (22.0-35.0); MEAN CELL VOLUME 92.9 fl (80.0-105.0); MEAN CORPUSCULAR HEMOGLOBIN 30.5 pg (25.0-35.0); MEAN CORPUSCULAR HGB CONC 32.9 g/dl (31.0-37.0); MEAN PLATELET VOLUME 9.8 fl (7.0-11.0); MONO # 0.7 (0.1-0.6); MONO % 11.7 % (1.0-6.0); RBC 3.08 10^6/uL (3.5-6.1); RED CELL DISTRIBUTION WIDTH 20.3 % (11.5-14.5); WHITE BLOOD COUNT 6.3 10^3/uL (4.5-11.0)
[2018-08-06 08:13] LABS: PLATELET COUNT 35 10^3/uL (120.0-450.0)
--- NOTE | 2018-08-06 09:30 | CP.PCM.PN ---
Subjective - Date & Time of Evaluation Date of Evaluation: 08/06/18 Time of Evaluation: 09:27 - Subjective Subjective: PGY-2 heme/onc progress note No acute events overnight. AAOx1. States she is feeling OK. Unable to obtained full ROS due to clinical condition. Objective - Vital Signs/Intake and Output Vital Signs (last 24 hours): Temp Pulse Resp BP Pulse Ox 98.9 F 84 18 121/77 95 08/06/18 06:00 08/06/18 06:00 08/06/18 06:00 08/06/18 06:00 08/06/18 06:00 Intake and Output: 08/06/18 08/06/18 06:59 18:59 Intake Total 500 Output Total 200 Balance 300 - Medications Medications: Current Medications Furosemide (Lasix) 20 mg PO DAILY [facility] Guaifenesin/Dextromethorphan (Robitussin Dm) 5 ml PO Q4H PRN PRN Reason: Cough Meropenem (Merrem Iv 1 Gm Premix) 1 gm in 50 mls @ 100 mls/hr IVPB Q8 [facility]; Protocol Stop: 08/08/18 11:17 Last Admin: 08/06/18 06:29 Dose: 100 mls/hr Levetiracetam (Keppra 1000mg/100ml Ns) 100 mls @ 460 mls/hr IV Q12 [facility] Last Admin: 08/03/18 09:12 Dose: 460 mls/hr Sodium Chloride (Sodium Chloride 0.9%) 1,000 mls @ 100 mls/hr IV .Q10H [facility] Last Admin: 08/05/18 15:25 Dose: 100 mls/hr Lactulose (Enulose) 20 gm NG BID [facility] Last Admin: 08/05/18 17:13 Dose: 20 gm Metoprolol Succinate (Toprol Xl) 25 mg PO DAILY [facility] Last Admin: 07/29/18 12:41 Dose: Not Given Morphine Sulfate (Morphine) 2 mg IVP Q3H PRN PRN Reason: Pain, severe (8-10) Pantoprazole Sodium (Protonix Inj) 40 mg IVP DAILY [facility] Spironolactone (Aldactone) 50 mg PO DAILY [facility] Vitamin A (Vitamin A&D) 1 applic TP Q8 PRN PRN Reason: Dry skin - Labs Labs: 08/06/18 06:15 08/05/18 06:30 PT 16.7 SECONDS (9.4-12.5) H 08/06/18 06:15 INR 1.44 08/06/18 06:15 APTT 29.1 Seconds (25.1-36.5) 08/04/18 06:35 - Additional Findings Additional findings: - Constitutional Appears: Well, Non-toxic, No Acute Distress, - Head Exam Head Exam: ATRAUMATIC, NORMAL INSPECTION, NORMOCEPHALIC - Eye Exam Eye Exam: PERRL - ENT Exam ENT Exam: Mucous Membranes Moist Additional comments: dentition poor - Respiratory Exam Respiratory Exam: + rhonchi b/l, NORMAL BREATHING PATTERN Additional comments: - Cardiovascular Exam Cardiovascular Exam: REGULAR RHYTHM, RRR - GI/Abdominal Exam GI & Abdominal Exam: Distended (mild), Soft, Hypoactive Bowel Sounds - Extremities Exam Extremities Exam: Normal Capillary Refill, Normal Inspection, Pedal Edema (+1/2) - Neurological Exam Additional comments: AAOx2 currently. - Skin Skin Exam: Dry, Intact, Normal Color Assessment and Plan - Assessment and Plan (Free Text) Plan: 63 year old female with past medical history of alcoholic cirrhosis, esophageal varices, PUD, spinal stenosis, arthritis, DJD, CVA, seizure, and osteoporosis presents with multiple episodes of bloody bowel movements. Pancytopenia -Patient's labs c/w possible chronic DIC -If evidence of bleeding would transfuse for plts <30 -Received 5 units pooled cryoprecipitate 08/03/18 and 08/05/18 -Repeat DIC panel * uptrending d-dimer, fibrinogen level and fibrin degradation productions -we will transfuse 1 bag platelets today 08/04/18 and collect cbc 1 hour after to see response * platelets improved from 28 to 26 after receiving 1 bag -we will transfuse 1 bag platelets today 08/06/18 and collect cbc 1 hour after to see response -Plan for CSPY on 08/07/18 * Goal plts > 50, INR < 2, Hgb > 7 for CSPY Case discussed with Dr Christiano Medellin
--- NOTE | 2018-08-06 12:03 | CP.PCM.PN ---
<Sp Li - Last Filed: 08/06/18 12:10> Subjective - Date & Time of Evaluation Date of Evaluation: 08/06/18 Time of Evaluation: 07:50 - Subjective Subjective: PGY-4 GI Fellow Prog Note Pt lying in bed when seen this AM. States she is feeling OK. States location is [place] and year -something. Unable to obtained full ROS due to clinical condition Objective - Vital Signs/Intake and Output Vital Signs (last 24 hours): Temp Pulse Resp BP Pulse Ox 98.9 F 84 18 121/77 95 08/06/18 06:00 08/06/18 06:00 08/06/18 06:00 08/06/18 06:00 08/06/18 06:00 Intake and Output: 08/06/18 08/06/18 06:59 18:59 Intake Total 500 Output Total 200 Balance 300 - Medications Medications: Current Medications Bisacodyl (Dulcolax) 10 mg PO ONCE ONE Stop: 08/06/18 16:01 Furosemide (Lasix) 20 mg PO DAILY [facility] Guaifenesin/Dextromethorphan (Robitussin Dm) 5 ml PO Q4H PRN PRN Reason: Cough Meropenem (Merrem Iv 1 Gm Premix) 1 gm in 50 mls @ 100 mls/hr IVPB Q8 [facility]; Protocol Stop: 08/08/18 11:17 Last Admin: 08/06/18 06:29 Dose: 100 mls/hr Levetiracetam (Keppra 1000mg/100ml Ns) 100 mls @ 460 mls/hr IV Q12 [facility] Last Admin: 08/03/18 09:12 Dose: 460 mls/hr Sodium Chloride (Sodium Chloride 0.9%) 1,000 mls @ 100 mls/hr IV .Q10H [facility] Last Admin: 08/05/18 15:25 Dose: 100 mls/hr Lactulose (Enulose) 20 gm NG BID [facility] Last Admin: 08/05/18 17:13 Dose: 20 gm Metoprolol Succinate (Toprol Xl) 25 mg PO DAILY [facility] Last Admin: 07/29/18 12:41 Dose: Not Given Morphine Sulfate (Morphine) 2 mg IVP Q3H PRN PRN Reason: Pain, severe (8-10) Pantoprazole Sodium (Protonix Inj) 40 mg IVP DAILY [facility] Polyethylene Glycol/Electrolytes (Golytely) 4,000 ml PO ONCE ONE Stop: 08/06/18 16:01 Spironolactone (Aldactone) 50 mg PO BID [facility] Vitamin A (Vitamin A&D) 1 applic TP Q8 PRN PRN Reason: Dry skin - Labs Labs: 08/06/18 06:15 08/05/18 06:30 PT 16.7 SECONDS (9.4-12.5) H 08/06/18 06:15 INR 1.44 08/06/18 06:15 APTT 29.1 Seconds (25.1-36.5) 08/04/18 06:35 - Constitutional Appears: No Acute Distress, Confused, Chronically Ill - Head Exam Head Exam: ATRAUMATIC, NORMAL INSPECTION - Eye Exam Eye Exam: EOMI, Scleral icterus - ENT Exam ENT Exam: Mucous Membranes Dry. absent: Mucous Membranes Moist - Respiratory Exam Respiratory Exam: NORMAL BREATHING PATTERN. absent: Accessory Muscle Use, Respiratory Distress - GI/Abdominal Exam GI & Abdominal Exam: Distended, Soft, Normal Bowel Sounds. absent: Bruit, Firm, Guarding, Rigid, Tenderness, Mass, Organomegaly, Pulsatile Mass Assessment and Plan - Assessment and Plan (Free Text) Assessment: 63 y/o female with alcoholic cirrhosis, PUD admitted for rectal bleeding. # Hematochezia, acute blood loss anemia: Given unstable vitals, increase BUN, and h/o cirrhosis, upper source investigated emergently on 07/29/18 with EGD without signs of active nor recent bleed. Therefore, suspect related to lower source, possibly R sided pathology given dark red. Ongoing bleeding with positive bleeding scan with bleeding pooled in LUQ, CSPY on 07/31/18 to 110 without clear source but diffuse blood limiting view. IR consulted, Angio w/o active bleed # Decompensated EtOH Cirrhosis: MELD-Na 24 on admission. Sober at least 3 months since CVA. - EV, PHG: Seen on EGD in 2014 s/p banding, small EV and PHG on 07/29/18 - Ascites: Plan to restart diuretics - HE: Lactulose - HCC: Overdue for screening # Chronic DIC: Hematology following. 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 No biopsies taken due to coagulopathy/hemodynamic instability. 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 No signs of bleeding. Needs outpatient EUS. # H/o Colonic AVM, Diverticulosis # H/o CVA, seizure -EGD 06/2015: large esophageal varices (banded), salmon-colored mucose mcgill spicious for martinez's esophagus -Last CSPY 06/2015: single non-bleeding colonic angiodysplastic lesion in cecum, one 7mm polyp sigmoid colon, diverticulosis in sigmoid colon, internal hemorrhoids Plan: - Plan for CSPY on 08/07/18 - Clear Liq Diet today then NPO at NM - Prep of Mag Citrate and bisacodyl tonight in AM given anticipated difficulty of taking GoLytely prep - Goal plts > 50, INR < 2, Hgb > 7 for CSPY - Abd US+Doppler eval ascites and PVT pending - Cont diuretics at Spironolactone 50 mg, Furosemide 20 mg PO QD - Switch metoprolol to nadolol - Gen Surgery consulted - On Meropenem per ID, agree for bacteremia in cirrhotic with GI bleed - PPI IV QD - Will need outpatient EGD+EUS to evaluate Martinez's and possible duodenal varix should she improve clinically - Monitor CMP, CBC, INR Pt seen and examined with Dr. Vernon; please see attestation for further recs/changes. <Jean-Claude Vernon V - Last Filed: 08/06/18 23:37> Objective - Vital Signs/Intake and Output Vital Signs (last 24 hours): Temp Pulse Resp BP Pulse Ox 98.1 F 83 18 125/63 93 L 08/06/18 19:48 08/06/18 19:48 08/06/18 19:48 08/06/18 19:48 08/06/18 14:00 Intake and Output: 08/06/18 08/07/18 18:59 06:59 Intake Total 250 0 Output Total 650 Balance -400 0 - Medications Medications: Current Medications Bisacodyl (Dulcolax) 10 mg PO ONCE ONE Stop: 08/07/18 06:01 Furosemide (Lasix) 20 mg PO DAILY [facility] Last Admin: 08/06/18 10:32 Dose: 20 mg Guaifenesin/Dextromethorphan (Robitussin Dm) 5 ml PO Q4H PRN PRN Reason: Cough Levetiracetam (Keppra 1000mg/100ml Ns) 100 mls @ 460 mls/hr IV Q12 [facility] Last Admin: 08/03/18 09:12 Dose: 460 mls/hr Sodium Chloride (Sodium Chloride 0.9%) 1,000 mls @ 100 mls/hr IV .Q10H [facility] Last Admin: 08/06/18 19:51 Dose: 100 mls/hr Lactulose (Enulose) 20 gm NG BID [facility] Last Admin: 08/06/18 17:46 Dose: 20 gm Magnesium Citrate (Citrate Of Mag) 300 ml PO ONCE ONE Stop: 08/07/18 06:01 Nadolol (Corgard) 20 mg PO DAILY [facility] Pantoprazole Sodium (Protonix Inj) 40 mg IVP DAILY [facility] Last Admin: 08/06/18 10:31 Dose: 40 mg Spironolactone (Aldactone) 50 mg PO BID [facility] Last Admin: 08/06/18 17:46 Dose: 50 mg Vitamin A (Vitamin A&D) 1 applic TP Q8 PRN PRN Reason: Dry skin - Labs Labs: 08/06/18 21:37 08/05/18 06:30 PT 16.7 SECONDS (9.4-12.5) H 08/06/18 06:15 INR 1.44 08/06/18 06:15 APTT 29.1 Seconds (25.1-36.5) 08/04/18 06:35 Attending/Attestation - Attestation I have personally seen and examined this patient.: Yes I have fully participated in the care of the patient.: Yes I have reviewed all pertinent clinical information, including history, physical exam and plan: Yes Notes (Text): This is an addendum to GI followup report dictated by the Retread [employer] Operator. The patient was seen and evaluated earlier. Medical records, lab studies, imagings were reviewed. Last 24 hours events reviewed. Agreed with the above treatment plan as outlined in Retread [employer] Operator 's notes with the addition of the following Plan for colonoscopy tomorrow Hematology recommendations were note Follow-up hemoglobin Patient does have sigant ascites Continue antibiotics as per ID 08/06/18 23:35
--- NOTE | 2018-08-06 12:08 | PN ---
DATE: 08/06/2018 SUBJECTIVE: The patient was seen this morning in room 571, bed 2, resting comfortably in bed. Donahue catheter and rectal tube are in place. PHYSICAL EXAMINATION: HEENT: Head and neck are unremarkable. There is some temporalis wasting typical of her degree of cirrhosis, ascites. HEART: Regular, not tachycardic. LUNGS: Show good aeration, right and left. ABDOMEN: Quite distended, tympanitic, on exam appears to be massive ascites. EXTREMITIES: Without edema. LABORATORY DATA: Labs show H and H to be acceptable this morning, but platelet count is chronically low. ASSESSMENT AND PLAN: The patient is scheduled for abdominal ultrasound later today. We will consult GI about the possibility of paracentesis as to whether this would be of relief or would it just recur ever so quickly. In the past, the patient was on spironolactone and Lasix as well as lactulose. We will continue to follow and discuss with GI. Abilio Bass MD
--- NOTE | 2018-08-06 12:16 | US ---
PROCEDURE: Portal vein duplex ultrasound. CLINICAL HISTORY: Cirrhosis. Deteriorating liver function. Evaluate for portal vein thrombosis. PHYSICIAN(S): Matt Wong M.D. FINDINGS: The liver is nodular in appearance and heterogeneous, consistent with a cirrhosis. No obvious mass is appreciated in the liver on these limited images. The extrahepatic portal vein is patent with hepatopetal flow. The hepatic artery is patent. Limited imaging of the central hepatic veins are patent. The spleen is not enlarged. A moderate amount of ascites is noted in the upper abdomen IMPRESSION: 1. Patent portal vein with hepatopetal flow.
[2018-08-06] MEDS: Sodium Chloride 0.9% 1,000 ML IV SCH ×2 (12:35→19:51)
[2018-08-06] MEDS ORDERED: Peg-Electrolyte Oral Soln 4L (Golytely) PO ONE (16:00)
[2018-08-06] MEDS ORDERED: Bisacodyl 5mg EC Tab PO ONE (16:00)
[2018-08-06] MEDS ORDERED: Magnesium Citrate Oral SOL (300 ml) PO ONE (16:00)
--- NOTE | 2018-08-06 16:05 | CP.PCM.PN ---
Subjective - Date & Time of Evaluation Date of Evaluation: 08/06/18 Time of Evaluation: 09:30 - Subjective Subjective: Comfortable, no vomiting, no abdominal pain, no diarrhea. Objective - Vital Signs/Intake and Output Vital Signs (last 24 hours): Temp Pulse Resp BP Pulse Ox 96.8 F L 80 23 127/85 94 L 08/05/18 16:49 08/05/18 16:49 08/05/18 16:45 08/05/18 16:45 08/05/18 16:00 - Medications Medications: Current Medications Furosemide (Lasix) 20 mg PO DAILY [facility] Guaifenesin/Dextromethorphan (Robitussin Dm) 5 ml PO Q4H PRN PRN Reason: Cough Meropenem (Merrem Iv 1 Gm Premix) 1 gm in 50 mls @ 100 mls/hr IVPB Q8 [facility]; P rotocol Stop: 08/08/18 11:17 Last Admin: 08/05/18 13:07 Dose: 100 mls/hr Levetiracetam (Keppra 1000mg/100ml Ns) 100 mls @ 460 mls/hr IV Q12 [facility] Last Admin: 08/03/18 09:12 Dose: 460 mls/hr Sodium Chloride (Sodium Chloride 0.9%) 1,000 mls @ 100 mls/hr IV .Q10H [facility] Last Admin: 08/05/18 15:25 Dose: 100 mls/hr Lactulose (Enulose) 20 gm NG BID [facility] Last Admin: 08/05/18 17:13 Dose: 20 gm Metoprolol Succinate (Toprol Xl) 25 mg PO DAILY [facility] Last Admin: 07/29/18 12:41 Dose: Not Given Morphine Sulfate (Morphine) 2 mg IVP Q3H PRN PRN Reason: Pain, severe (8-10) Pantoprazole Sodium (Protonix Inj) 40 mg IVP DAILY [facility] Spironolactone (Aldactone) 50 mg PO DAILY [facility] Vitamin A (Vitamin A&D) 1 applic TP Q8 PRN PRN Reason: Dry skin - Labs Labs: 08/05/18 06:30 08/05/18 06:30 PT 16.9 SECONDS (9.4-12.5) H 08/05/18 06:30 INR 1.46 08/05/18 06:30 APTT 29.1 Seconds (25.1-36.5) 08/04/18 06:35 - Constitutional Appears: Chronically Ill - Head Exam Head Exam: NORMAL INSPECTION - Neck Exam Neck Exam: absent: Meningismus - Respiratory Exam Respiratory Exam: Decreased Breath Sounds - Cardiovascular Exam Cardiovascular Exam: +S1, +S2 - GI/Abdominal Exam GI & Abdominal Exam: Soft. absent: Tenderness Assessment and Plan - Assessment and Plan (Free Text) Plan: Assessment SIRS S/P VDRF due to acute GI bleed with esophageal varices in this patient with liver cirrhosis from alcohol abuse history of systemic inflammatory response syndrome in this patient with acute left sided intra-cranial hemorrhage S/P ventilator-dependent respiratory fa ilure, consider UTI due to Salmonella Group C history of treatment for HCAP hyperbilirubinemia probably related to chronic liver disease / liver cirrhosis ethanol abuse liver cirrhosis with esophageal varices S/P banding in 2014 arthritis history of spinal stenosis Plan will d/c Merrem (completed 7 days) and will monitor clinically
[2018-08-06 21:42] LABS: BASO # 0.05 K/mm3 (0.0-2.0); BASO % 0.6 % (0.0-3.0); EOS # 0.1 (0.0-0.7); EOS % 1.6 % (1.5-5.0); GRAN # 6.21 (1.4-6.5); GRAN % 75.3 % (50.0-68.0); LYMPH # 0.9 (1.2-3.4); LYMPH % 10.8 % (22.0-35.0); MEAN CORPUSCULAR HEMOGLOBIN 30.4 pg (25.0-35.0); MEAN CORPUSCULAR HGB CONC 32.7 g/dl (31.0-37.0); MEAN PLATELET VOLUME 10.2 fl (7.0-11.0); MONO % 11.7 % (1.0-6.0); RBC 3.29 10^6/uL (3.5-6.1); RED CELL DISTRIBUTION WIDTH 20.3 % (11.5-14.5); WHITE BLOOD COUNT 8.2 10^3/uL (4.5-11.0)
[2018-08-06 21:47] LABS: PLATELET COUNT 40 10^3/uL (120.0-450.0)
[2018-08-07] MEDS: Sodium Chloride 0.9% 1,000 ML IV SCH (05:54)
[2018-08-07] MEDS ORDERED: Magnesium Citrate Oral SOL (300 ml) PO ONE (06:00)
[2018-08-07] MEDS ORDERED: Bisacodyl 5mg EC Tab PO ONE (06:00)
[2018-08-07 07:27] LABS: BASO # 0.04 K/mm3 (0.0-2.0); BASO % 0.7 % (0.0-3.0); EOS # 0.2 (0.0-0.7); EOS % 2.9 % (1.5-5.0); GRAN # 4.04 (1.4-6.5); GRAN % 68.5 % (50.0-68.0); HEMOGLOBIN 9.5 g/dL (12.0-16.0); LYMPH % 17.7 % (22.0-35.0); MEAN CELL VOLUME 93.3 fl (80.0-105.0); MEAN CORPUSCULAR HEMOGLOBIN 30.4 pg (25.0-35.0); MEAN CORPUSCULAR HGB CONC 32.6 g/dl (31.0-37.0); MEAN PLATELET VOLUME 10.1 fl (7.0-11.0); MONO # 0.6 (0.1-0.6); MONO % 10.2 % (1.0-6.0); RBC 3.12 10^6/uL (3.5-6.1); RED CELL DISTRIBUTION WIDTH 20.5 % (11.5-14.5); WHITE BLOOD COUNT 5.9 10^3/uL (4.5-11.0)
[2018-08-07 07:35] LABS: INR 1.43; PROTHROMBIN TIME 16.6 SECONDS (9.4-12.5)
[2018-08-07 07:36] LABS: PLATELET COUNT 44 10^3/uL (120.0-450.0)
[2018-08-07 07:47] LABS: ALB/GLOB RATIO 0.7 (1.1-1.8); ALBUMIN 2.5 g/dL (3.0-4.8); ALT/SGPT 59 U/L (7-56); AST/SGOT 117 U/L (14-36); BLOOD UREA NITROGEN 15 mg/dL (7-21); CALCIUM 8.8 mg/dL (8.4-10.5); GFR NON-AFRICAN AMERICAN > 60
--- NOTE | 2018-08-07 09:11 | CP.PCM.PN ---
Subjective - Date & Time of Evaluation Date of Evaluation: 08/07/18 Time of Evaluation: 09:08 - Subjective Subjective: PGY-2 heme/onc progress note No acute events noted overnight. AAOx2 today. Denied pain. Stated she felt weak. Understood she was slated for colonoscopy later today. Objective - Vital Signs/Intake and Output Vital Signs (last 24 hours): Temp Pulse Resp BP Pulse Ox 98.9 F 78 19 127/74 95 08/07/18 06:00 08/07/18 06:00 08/07/18 06:00 08/07/18 06:00 08/07/18 06:00 Intake and Output: 08/07/18 08/07/18 06:59 18:59 Intake Total 0 Balance 0 - Medications Medications: Current Medications Furosemide (Lasix) 20 mg PO DAILY [facility] Last Admin: 08/06/18 10:32 Dose: 20 mg Guaifenesin/Dextromethorphan (Robitussin Dm) 5 ml PO Q4H PRN PRN Reason: Cough Levetiracetam (Keppra 1000mg/100ml Ns) 100 mls @ 460 mls/hr IV Q12 [facility] Last Admin: 08/03/18 09:12 Dose: 460 mls/hr Sodium Chloride (Sodium Chloride 0.9%) 1,000 mls @ 100 mls/hr IV .Q10H [facility] Last Admin: 08/07/18 05:54 Dose: 100 mls/hr Lactulose (Enulose) 20 gm NG BID [facility] Last Admin: 08/06/18 17:46 Dose: 20 gm Nadolol (Corgard) 20 mg PO DAILY [facility] Pantoprazole Sodium (Protonix Inj) 40 mg IVP DAILY [facility] Last Admin: 08/06/18 10:31 Dose: 40 mg Spironolactone (Aldactone) 50 mg PO BID [facility] Last Admin: 08/06/18 17:46 Dose: 50 mg Vitamin A (Vitamin A&D) 1 applic TP Q8 PRN PRN Reason: Dry skin - Labs Labs: 08/07/18 07:00 08/07/18 07:00 PT 16.6 SECONDS (9.4-12.5) H 08/07/18 07:00 INR 1.43 08/07/18 07:00 APTT 29.1 Seconds (25.1-36.5) 08/04/18 06:35 - Additional Findings Additional findings: - Constitutional Appears: Well, Non-toxic, No Acute Distress, - Head Exam Head Exam: ATRAUMATIC, NORMAL INSPECTION, NORMOCEPHALIC - Eye Exam Eye Exam: PERRL - ENT Exam ENT Exam: Mucous Membranes Moist Additional comments: dentition poor - Respiratory Exam Respiratory Exam: + rhonchi b/l, NORMAL BREATHING PATTERN Additional comments: - Cardiovascular Exam Cardiovascular Exam: REGULAR RHYTHM, RRR - GI/Abdominal Exam GI & Abdominal Exam: Distended (mild), Soft, Hypoactive Bowel Sounds - Extremities Exam Extremities Exam: Normal Capillary Refill, Normal Inspection, Pedal Edema (+1/2) - Neurological Exam Additional comments: AAOx2 currently. - Skin Skin Exam: Dry, Intact, Normal Color Assessment and Plan - Assessment and Plan (Free Text) Plan: 63 year old female with past medical history of alcoholic cirrhosis, esophageal varices, PUD, spinal stenosis, arthritis, DJD, CVA, seizure, and osteoporosis presents with multiple episodes of bloody bowel movements. Pancytopenia -Patient's labs c/w possible chronic DIC -If evidence of bleeding would transfuse for plts <30 -Received 5 units pooled cryoprecipitate 08/03/18 and 08/05/18 -Repeat DIC panel * uptrending d-dimer, fibrinogen level and fibrin degradation productions -we will transfuse 1 bag platelets today 08/04/18 and collect cbc 1 hour after to see response * platelets improved from 28 to 26 after receiving 1 bag -we will transfuse 1 bag platelets today 08/06/18 and collect cbc 1 hour after to see response -Plan for CSPY on 08/07/18 * Goal plts > 50, INR < 2, Hgb > 7 for CSPY * order for 2 bags plts and cryoprecipitate 08/07/[address] Christiano Medellin
[2018-08-07 09:53] LABS: PLATELET COUNT MANUAL 53 K/mm3 (120-450)
--- NOTE | 2018-08-07 16:47 | CP.PCM.PN ---
Subjective - Date & Time of Evaluation Date of Evaluation: 08/07/18 Time of Evaluation: 15:15 - Subjective Subjective: Not in distress, no vomiting, no abdominal pain, no fevers. Objective - Vital Signs/Intake and Output Vital Signs (last 24 hours): Temp Pulse Resp BP Pulse Ox 98.2 F 86 20 112/65 93 L 08/06/18 14:00 08/06/18 14:00 08/06/18 14:00 08/06/18 14:00 08/06/18 14:00 Intake and Output: 08/06/18 08/06/18 06:59 18:59 Intake Total 500 250 Output Total 200 650 Balance 300 -400 - Medications Medications: Current Medications Bisacodyl (Dulcolax) 10 mg PO ONCE ONE Stop: 08/07/18 06:01 Furosemide (Lasix) 20 mg PO DAILY [facility] [place] Last Admin: 08/06/18 10:32 Dose: 20 mg Guaifenesin/Dextromethorphan (Robitussin Dm) 5 ml PO Q4H PRN PRN Reason: Cough Levetiracetam (Keppra 1000mg/100ml Ns) 100 mls @ 460 mls/hr IV Q12 [facility] [place] Last Admin: 08/03/18 09:12 Dose: 460 mls/hr Sodium Chloride (Sodium Chloride 0.9%) 1,000 mls @ 100 mls/hr IV .Q10H [facility] [place] Last Admin: 08/06/18 12:35 Dose: 100 mls/hr Lactulose (Enulose) 20 gm NG BID [facility] [place] Last Admin: 08/06/18 10:32 Dose: 20 gm Magnesium Citrate (Citrate Of Mag) 300 ml PO ONCE ONE Stop: 08/07/18 06:01 Morphine Sulfate (Morphine) 2 mg IVP Q3H PRN PRN Reason: Pain, severe (8-10) Nadolol (Corgard) 20 mg PO DAILY [facility] Pantoprazole Sodium (Protonix Inj) 40 mg IVP DAILY [facility] [place] Last Admin: 08/06/18 10:31 Dose: 40 mg Spironolactone (Aldactone) 50 mg PO BID [facility] [place] Vitamin A (Vitamin A&D) 1 applic TP Q8 PRN PRN Reason: Dry skin - Labs Labs: 08/06/18 06:15 08/05/18 06:30 PT 16.7 SECONDS (9.4-12.5) H 08/06/18 06:15 INR 1.44 08/06/18 06:15 APTT 29.1 Seconds (25.1-36.5) 08/04/18 06:35 - Constitutional Appears: Chronically Ill - Head Exam Head Exam: NORMAL INSPECTION - Respiratory Exam Respiratory Exam: Decreased Breath Sounds - Cardiovascular Exam Cardiovascular Exam: +S1, +S2 - GI/Abdominal Exam GI & Abdominal Exam: Soft. absent: Tenderness Assessment and Plan - Assessment and Plan (Free Text) Plan: Assessment S/P SIRS S/P VDRF due to acute GI bleed with esophageal varices in this patient with liver cirrhosis from alcohol abuse history of systemic inflammatory response syndrome in this patient with acute left sided intra-cranial hemorrhage S/P ventilator-dependent respiratory failure, consider UTI due to Salmonella Group C history of treatment for HCAP hyperbilirubinemia probably related to chronic liver disease / liver cirrhosis ethanol abuse liver cirrhosis with esophageal varices S/P banding in 2014 arthritis history of spinal stenosis Plan completed course of Merrem and will continue to monitor clinically off antibiotics since she is at risk for nosocomial infections
[2018-08-07] MEDS ORDERED: Ciprofloxacin 400mg/200ml D5W 400 MG/200 ML BAG IVPB ONE (17:34)
[2018-08-07] MEDS ORDERED: Ciprofloxacin 400mg/200ml D5W IVPB ONE (17:42)
[2018-08-07] MEDS ORDERED: Etomidate 20 mg/10ml Inj IV ONE (17:51)
[2018-08-07] MEDS ORDERED: Sodium Chloride 0.9% 1,000 ML IV SCH (18:30)
[2018-08-08 08:09] LABS: ALB/GLOB RATIO 0.7 (1.1-1.8); ALBUMIN 2.5 g/dL (3.0-4.8); ALT/SGPT 55 U/L (7-56); AST/SGOT 85 U/L (14-36); BLOOD UREA NITROGEN 14 mg/dL (7-21); CALCIUM 8.8 mg/dL (8.4-10.5); GFR NON-AFRICAN AMERICAN > 60
[2018-08-08] MEDS: Sodium Chloride 0.9% 1,000 ML IV SCH ×2 (09:28→17:18)
[2018-08-08] MEDS: Potassium Chloride 20 mEq/15 ml LIQ UD PO SCH ×2 (11:37→17:18)
[2018-08-08] MEDS: metOLazone 5 MG TAB PO SCH ×2 (11:37→17:18)
--- NOTE | 2018-08-08 11:48 | CP.PCM.PN ---
Subjective - Date & Time of Evaluation Date of Evaluation: 08/08/18 Time of Evaluation: 09:50 - Subjective Subjective: Afebrile, comfortable. Objective - Vital Signs/Intake and Output Vital Signs (last 24 hours): Temp Pulse Resp BP Pulse Ox 98 F 92 H 18 119/86 96 08/07/18 16:23 08/07/18 16:23 08/07/18 16:23 08/07/18 16:23 08/07/18 16:23 Intake and Output: 08/07/18 08/07/18 06:59 18:59 Intake Total 0 1171 Balance 0 1171 - Medications Medications: Current Medications Furosemide (Lasix) 40 mg PO DAILY [facility] Guaifenesin/Dextromethorphan (Robitussin Dm) 5 ml PO Q4H PRN PRN Reason: Cough Levetiracetam (Keppra 1000mg/100ml Ns) 100 mls @ 460 mls/hr IV Q12 [facility] Last Admin: 08/03/18 09:12 Dose: 460 mls/hr Sodium Chloride (Sodium Chloride 0.9%) 1,000 mls @ 100 mls/hr IV .Q10H [facility] Last Admin: 08/07/18 05:54 Dose: 100 mls/hr Lactulose (Enulose) 20 gm NG BID [facility] Last Admin: 08/06/18 17:46 Dose: 20 gm Nadolol (Corgard) 20 mg PO DAILY [facility] Pantoprazole Sodium (Protonix Inj) 40 mg IVP DAILY [facility] Last Admin: 08/06/18 10:31 Dose: 40 mg Spironolactone (Aldactone) 100 mg PO DAILY [facility] Vitamin A (Vitamin A&D) 1 applic TP Q8 PRN PRN Reason: Dry skin - Labs Labs: 08/07/18 07:00 08/07/18 07:00 PT 16.6 SECONDS (9.4-12.5) H 08/07/18 07:00 INR 1.43 08/07/18 07:00 APTT 29.1 Seconds (25.1-36.5) 08/04/18 06:35 - Constitutional Appears: Chronically Ill - Head Exam Head Exam: NORMAL INSPECTION - Neck Exam Neck Exam: absent: Meningismus - Respiratory Exam Respiratory Exam: Decreased Breath Sounds - Cardiovascular Exam Cardiovascular Exam: +S1, +S2 - GI/Abdominal Exam GI & Abdominal Exam: Soft. absent: Tenderness Assessment and Plan - Assessment and Plan (Free Text) Plan: Assessment S/P SIRS S/P VDRF due to acute GI bleed with esophageal varices in this patient with liver cirrhosis from alcohol abuse history of systemic inflammatory response syndrome in this patient with acute left sided intra-cranial hemorrhage S/P ventilator-dependent respiratory failure, consider UTI due to Salmonella Group C history of treatment for HCAP hyperbilirubinemia probably related to chronic liver disease / liver cirrhosis ethanol abuse liver cirrhosis with esophageal varices S/P banding in 2014 arthritis history of spinal stenosis Plan completed course of Merrem and will continue to monitor clinically off antibiotics since she is at risk for hospital-acquired infections
[2018-08-08 12:41] LABS: BASO # 0.04 K/mm3 (0.0-2.0); BASO % 0.6 % (0.0-3.0); EOS # 0.2 (0.0-0.7); EOS % 2.4 % (1.5-5.0); GRAN # 4.79 (1.4-6.5); HEMOGLOBIN 8.8 g/dL (12.0-16.0); LYMPH # 1.3 (1.2-3.4); LYMPH % 20.2 % (22.0-35.0); MEAN CELL VOLUME 95.1 fl (80.0-105.0); MEAN CORPUSCULAR HEMOGLOBIN 30.6 pg (25.0-35.0); MEAN CORPUSCULAR HGB CONC 32.1 g/dl (31.0-37.0); MEAN PLATELET VOLUME 9.4 fl (7.0-11.0); MONO # 0.3 (0.1-0.6); MONO % 4.8 % (1.0-6.0); RBC 2.88 10^6/uL (3.5-6.1); RED CELL DISTRIBUTION WIDTH 20.5 % (11.5-14.5); WHITE BLOOD COUNT 6.7 10^3/uL (4.5-11.0)
--- NOTE | 2018-08-08 14:36 | CP.PCM.PN ---
<Anaya Turcios - Last Filed: 08/08/18 14:30> Subjective - Date & Time of Evaluation Date of Evaluation: 08/08/18 Time of Evaluation: 14:31 - Subjective Subjective: Gastroenterology Fellow/PGY6 Progress Note Patient oriented to self and place. Tolerating liquid diet. Admits to abdominal discomfort with abdominal distension. Notes bowel movement yesterday. A 12-point review of systems negative except for as above. Objective - Vital Signs/Intake and Output Vital Signs (last 24 hours): Temp Pulse Resp BP Pulse Ox 98.2 F 93 H 20 120/88 95 08/08/18 07:30 08/08/18 07:30 08/08/18 07:30 08/08/18 09:28 08/08/18 07:30 Intake and Output: 08/08/18 08/08/18 06:59 18:59 Intake Total 2550 Balance 2550 - Medications Medications: Current Medications Furosemide (Lasix) 40 mg PO BID [facility] Guaifenesin/Dextromethorphan (Robitussin Dm) 5 ml PO Q4H PRN PRN Reason: Cough Levetiracetam (Keppra 1000mg/100ml Ns) 100 mls @ 460 mls/hr IV Q12 [facility] Last Admin: 08/03/18 09:12 Dose: 460 mls/hr Sodium Chloride (Sodium Chloride 0.9%) 1,000 mls @ 100 mls/hr IV .Q10H [facility] Last Admin: 08/08/18 09:28 Dose: 100 mls/hr Lactulose (Enulose) 20 gm NG BID [facility] Last Admin: 08/08/18 09:27 Dose: 20 gm Metolazone (Zaroxolyn) 5 mg PO BID [facility] Last Admin: 08/08/18 11:37 Dose: 5 mg Nadolol (Corgard) 20 mg PO DAILY [facility] Last Admin: 08/08/18 09:28 Dose: 20 mg Pantoprazole Sodium (Protonix Inj) 40 mg IVP DAILY [facility] Last Admin: 08/08/18 09:28 Dose: 40 mg Potassium Chloride (Potassium Chloride Oral Soln) 20 meq PO BID [facility] Last Admin: 08/08/18 11:37 Dose: 20 meq Spironolactone (Aldactone) 100 mg PO DAILY [facility] Last Admin: 08/08/18 09:28 Dose: 100 mg Vitamin A (Vitamin A&D) 1 applic TP Q8 PRN PRN Reason: Dry skin - Labs Labs: 08/08/18 12:30 08/08/18 06:00 PT 16.6 SECONDS (9.4-12.5) H 08/07/18 07:00 INR 1.43 08/07/18 07:00 APTT 29.1 Seconds (25.1-36.5) 08/04/18 06:35 - Constitutional Appears: Non-toxic, No Acute Distress - Head Exam Head Exam: ATRAUMATIC, NORMOCEPHALIC - Eye Exam Eye Exam: EOMI, PERRL. absent: Scleral icterus Pupil Exam: PERRL. absent: Miosis, Mydriatic - ENT Exam ENT Exam: Mucous Membranes Moist, Normal Oropharynx - Neck Exam Neck Exam: Full ROM, Normal Inspection - Respiratory Exam Respiratory Exam: Clear to Ausculation Bilateral. absent: Rales, Rhonchi, Wheezes - Cardiovascular Exam Cardiovascular Exam: RRR, +S1, +S2. absent: Gallop, Rubs - GI/Abdominal Exam GI & Abdominal Exam: Distended, Soft, Tenderness, Normal Bowel Sounds. absent: Firm, Guarding, Rigid, Organomegaly Additional comments: fluid wave present - Extremities Exam Additional comments: 3+ B/L LE pitting edema, B/L UE edema - Neurological Exam Neurological Exam: Alert, Awake Additional comments: no asterixis - Psychiatric Exam Psychiatric exam: Normal Affect, Normal Mood - Skin Skin Exam: Dry, Intact, Normal Color, Warm Assessment and Plan - Assessment and Plan (Free Text) Assessment: 63 year old female with PMH of alcoholic cirrhosis, PUD, and CVA presenting with rectal bleeding. 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 -EGD 06/2015: large esophageal varices (banded), salmon-colored mucose suspicious for martinez's esophagus -colonoscopy 06/2015: single non-bleeding colonic angiodysplastic lesion in cecum, one 7mm polyp sigmoid colon, diverticulosis in sigmoid colon, internal hemorrhoids Plan: -monitor H/H -advance diet as tolerated to low sodium diet -Duplex U/S- no portal vein thrombosis -continue Lasix 40mg BID and spironolactone 100mg daily -continue Lactulose , titrate to 2-3 BMs daily -on nadolol 20mg daily -on meropenem to cover for SBP PPx in setting of GI bleed -will consider therapeutic /diagnostic paracentesis with IR friday if diuresis does not improve in next 48 hours -will follow clinical course <Jean-Claude Vernon V - Last Filed: 08/09/18 00:06> Objective - Vital Signs/Intake and Output Vital Signs (last 24 hours): Temp Pulse Resp BP Pulse Ox 99 F 88 18 112/72 97 08/08/18 21:27 08/08/18 21:27 08/08/18 21:27 08/08/18 21:27 08/08/18 21:27 - Medications Medications: Current Medications Furosemide (Lasix) 40 mg PO BID [facility] Last Admin: 08/08/18 17:18 Dose: 40 mg Guaifenesin/Dextromethorphan (Robitussin Dm) 5 ml PO Q4H PRN PRN Reason: Cough Levetiracetam (Keppra 1000mg/100ml Ns) 100 mls @ 460 mls/hr IV Q12 [facility] Last Admin: 08/03/18 09:12 Dose: 460 mls/hr Sodium Chloride (Sodium Chloride 0.9%) 1,000 mls @ 100 mls/hr IV .Q10H [facility] Last Admin: 08/08/18 17:18 Dose: Not Given Lactulose (Enulose) 20 gm NG BID [facility] Last Admin: 08/08/18 17:18 Dose: 20 gm Metolazone (Zaroxolyn) 5 mg PO BID [facility] Last Admin: 08/08/18 17:18 Dose: 5 mg Nadolol (Corgard) 20 mg PO DAILY [facility] Last Admin: 08/08/18 09:28 Dose: 20 mg Pantoprazole Sodium (Protonix Inj) 40 mg IVP DAILY [facility] Last Admin: 08/08/18 09:28 Dose: 40 mg Potassium Chloride (Potassium Chloride Oral Soln) 20 meq PO BID [facility] Last Admin: 08/08/18 17:18 Dose: 20 meq Spironolactone (Aldactone) 100 mg PO DAILY [facility] Last Admin: 08/08/18 09:28 Dose: 100 mg Vitamin A (Vitamin A&D) 1 applic TP Q8 PRN PRN Reason: Dry skin - Labs Labs: 08/08/18 12:30 08/08/18 06:00 PT 16.6 SECONDS (9.4-12.5) H 08/07/18 07:00 INR 1.43 08/07/18 07:00 APTT 29.1 Seconds (25.1-36.5) 08/04/18 06:35 Attending/Attestation - Attestation I have personally seen and examined this patient.: Yes I have fully participated in the care of the patient.: Yes I have reviewed all pertinent clinical information, including history, physical exam and plan: Yes Notes (Text): sudha 08/09/18 00:05
--- NOTE | 2018-08-08 22:38 | PN ---
DATE: 08/08/2018 This is [facility] visit on the medical floor. For Dr. Medellin. SUBJECTIVE: The patient is a 63-year-old female who looks older than her stated age. Seen sitting up in a chair now. Status post colonoscopy yesterday after blood products were given at the time of procedure including platelets and cryoprecipitate as per Dr. Vernon. Postoperative diagnoses are diverticulosis and hemorrhoids. The patient is known to suffer from esophageal varices, alcoholic cirrhosis with questionable possible chronic DIC with her platelets now improved to 61,000 manual count. She is otherwise resting comfortably in no acute distress. PHYSICAL EXAMINATION: VITAL SIGNS: Temperature 98.4, pulse 84, respirations 20, blood pressure 132/71, and pulse ox 96%. HEENT: Sclerae mildly icteric. NECK: Supple. HEART: Regular rate. LUNGS: Occasional rhonchi. ABDOMEN: Soft, nontender. EXTREMITIES: +1 edema of the feet bilaterally. NEUROLOGIC: Somnolent, but awake and alert to questioning. SKIN: Warm and dry with anicteric tinge. LABORATORY DATA: The patient's labs were done. White blood cell count of 6.7, hemoglobin of 8.8, hematocrit of 27.4, and platelet count of 61,000. Metabolic panel showed a potassium of 3.2, chloride of 116 with a total bilirubin of 3.5, AST of 85, INR of 1.43 yesterday. ASSESSMENT: Assessment for this patient is that of sepsis, systemic inflammatory response syndrome, gastrointestinal bleed with significant anemia and thrombocytopenia, esophageal varices, history of liver cirrhosis, ethyl alcohol abuse, status post respiratory failure with extubation, diverticulosis and hemorrhoids, questionable chronic disseminated intravascular coagulation, and anemia of chronic disease. PLAN: Plan at this patient is to monitor clinically with labs with further recommendations as per clinical findings. Since 07/29/2018, the patient has had 8 units of packed red blood cells and 4 units of fresh frozen plasma along with cryoprecipitate. This is a complex patient with a comprehensive medically necessary and appropriate visit carried out in excess of 25 minutes. Edward Patterson MD
[2018-08-09] MEDS: Sodium Chloride 0.9% 1,000 ML IV SCH ×2 (05:12→09:22)
--- NOTE | 2018-08-09 06:12 | CARD ---
APPROVED REPORT Date of service: 08/08/2018 EKG Measurement Heart [id number] <Conclusion> Normal sinus rhythm Nonspecific T wave abnormality Prolonged QT Abnormal ECG
[2018-08-09 09:07] LABS: BASO # 0.05 K/mm3 (0.0-2.0); BASO % 0.9 % (0.0-3.0); EOS # 0.2 (0.0-0.7); EOS % 3.4 % (1.5-5.0); GRAN # 4.17 (1.4-6.5); GRAN % 70.9 % (50.0-68.0); HEMOGLOBIN 8.6 g/dL (12.0-16.0); LYMPH # 0.6 (1.2-3.4); LYMPH % 9.5 % (22.0-35.0); MEAN CELL VOLUME 93.6 fl (80.0-105.0); MEAN CORPUSCULAR HEMOGLOBIN 30.4 pg (25.0-35.0); MEAN CORPUSCULAR HGB CONC 32.5 g/dl (31.0-37.0); MEAN PLATELET VOLUME 9.8 fl (7.0-11.0); MONO # 0.9 (0.1-0.6); MONO % 15.3 % (1.0-6.0); RBC 2.83 10^6/uL (3.5-6.1); RED CELL DISTRIBUTION WIDTH 20.4 % (11.5-14.5); WHITE BLOOD COUNT 5.9 10^3/uL (4.5-11.0)
[2018-08-09] MEDS: Potassium Chloride 20 mEq/15 ml LIQ UD PO SCH ×2 (09:22→17:12)
[2018-08-09] MEDS: metOLazone 5 MG TAB PO SCH ×2 (09:22→18:41)
[2018-08-09 09:29] LABS: ALB/GLOB RATIO 0.7 (1.1-1.8); ALBUMIN 2.3 g/dL (3.0-4.8); ALT/SGPT 56 U/L (7-56); AST/SGOT 87 U/L (14-36); BLOOD UREA NITROGEN 11 mg/dL (7-21); CALCIUM 8.6 mg/dL (8.4-10.5); GFR NON-AFRICAN AMERICAN > 60
[2018-08-09 10:50] LABS: INR 1.72
--- NOTE | 2018-08-09 12:21 | RAD ---
Date of service: 08/08/2018 HISTORY: Ascites, anasarca COMPARISON: None available. FINDINGS: BOWEL: No abnormally dilated bowel. Scattered air-fluid levels. Possible adynamic ileus. No evidence of pneumoperitoneum. No hepatic or splenic enlargement. No masses or abnormal intra-abdominal calcifications. BONES: Status post ORIF right femoral neck fracture. OTHER FINDINGS: None. IMPRESSION: No active disease.
--- NOTE | 2018-08-09 12:28 | RAD ---
Date of service: 08/08/2018 HISTORY: CHF, Anasarca COMPARISON: 08/04/2018 TECHNIQUE: Chest PA and lateral FINDINGS: LUNGS: Linear scar/atelectasis at left base. PLEURA: Small bilateral pleural effusion, left greater than right. No pneumothorax. CARDIOVASCULAR: There is atherosclerotic calcification of the aortic arch. Normal cardiac size. No pulmonary vascular congestion. OSSEOUS STRUCTURES: No significant abnormalities. VISUALIZED UPPER ABDOMEN: Normal. OTHER FINDINGS: None. IMPRESSION: Small bilateral pleural effusion.
[2018-08-09] MEDS ORDERED: Sodium Chloride 0.9% 1,000 ML IV SCH (13:07)
--- NOTE | 2018-08-09 13:38 | CP.PCM.PN ---
Subjective - Date & Time of Evaluation Date of Evaluation: 08/09/18 Time of Evaluation: 12:10 - Subjective Subjective: No fevers, not in distress. Objective - Vital Signs/Intake and Output Vital Signs (last 24 hours): Temp Pulse Resp BP Pulse Ox 98.2 F 93 H 20 120/88 95 08/08/18 07:30 08/08/18 07:30 08/08/18 07:30 08/08/18 09:28 08/08/18 07:30 Intake and Output: 08/08/18 08/08/18 06:59 18:59 Intake Total 2550 Balance 2550 - Medications Medications: Current Medications Furosemide (Lasix) 40 mg PO BID [facility] Guaifenesin/Dextromethorphan (Robitussin Dm) 5 ml PO Q4H PRN PRN Reason: Cough Levetiracetam (Keppra 1000mg/100ml Ns) 100 mls @ 460 mls/hr IV Q12 [facility] Last Admin: 08/03/18 09:12 Dose: 460 mls/hr Sodium Chloride (Sodium Chloride 0.9%) 1,000 mls @ 100 mls/hr IV .Q10H [facility] Last Admin: 08/08/18 09:28 Dose: 100 mls/hr Lactulose (Enulose) 20 gm NG BID [facility] Last Admin: 08/08/18 09:27 Dose: 20 gm Metolazone (Zaroxolyn) 5 mg PO BID [facility] Last Admin: 08/08/18 11:37 Dose: 5 mg Nadolol (Corgard) 20 mg PO DAILY [facility] Last Admin: 08/08/18 09:28 Dose: 20 mg Pantoprazole Sodium (Protonix Inj) 40 mg IVP DAILY [facility] Last Admin: 08/08/18 09:28 Dose: 40 mg Potassium Chloride (Potassium Chloride Oral Soln) 20 meq PO BID [facility] Last Admin: 08/08/18 11:37 Dose: 20 meq Spironolactone (Aldactone) 100 mg PO DAILY [facility] Last Admin: 08/08/18 09:28 Dose: 100 mg Vitamin A (Vitamin A&D) 1 applic TP Q8 PRN PRN Reason: Dry skin - Labs Labs: 08/07/18 07:00 08/08/18 06:00 PT 16.6 SECONDS (9.4-12.5) H 08/07/18 07:00 INR 1.43 08/07/18 07:00 APTT 29.1 Seconds (25.1-36.5) 08/04/18 06:35 - Constitutional Appears: Chronically Ill - Head Exam Head Exam: NORMAL INSPECTION - Respiratory Exam Respiratory Exam: Decreased Breath Sounds - Cardiovascular Exam Cardiovascular Exam: +S1, +S2 - GI/Abdominal Exam GI & Abdominal Exam: Soft. absent: Tenderness Assessment and Plan - Assessment and Plan (Free Text) Plan: Assessment S/P SIRS S/P VDRF due to acute GI bleed with esophageal varices in this patient with liver cirrhosis from alcohol abuse history of systemic inflammatory response syndrome in this patient with acute left sided intra-cranial hemorrhage S/P ventilator-dependent respiratory failure, consider UTI due to Salmonella Group C history of treatment for HCAP hyperbilirubinemia probably related to chronic liver disease / liver cirrhosis ethanol abuse liver cirrhosis with esophageal varices S/P banding in 2014 arthritis history of spinal stenosis Plan completed course of Merrem and will continue to monitor clinically off antibiotics since she is at risk for healthcare-associated infections
[2018-08-09] MEDS ORDERED: Phytonadione 10 MG in Sodium Chloride 0.9% 50 ML IV ONE (14:27)
--- NOTE | 2018-08-09 14:35 | CP.PCM.PN ---
<Anaya Turcios - Last Filed: 08/09/18 14:37> Subjective - Date & Time of Evaluation Date of Evaluation: 08/09/18 Time of Evaluation: 14:29 - Subjective Subjective: Gastroenterology Fellow/PGY6 Progress Note Patient oriented to self and place. Tolerating liquid diet. Admits to abdominal discomfort with abdominal distension. Notes one bowel movement yesterday. A 12- point review of systems negative except for as above. Objective - Vital Signs/Intake and Output Vital Signs (last 24 hours): Temp Pulse Resp BP Pulse Ox 98.5 F 77 20 80/55 L 97 08/09/18 08:06 08/09/18 08:06 08/09/18 08:06 08/09/18 12:31 08/09/18 08:06 - Medications Medications: Current Medications Furosemide (Lasix) 40 mg PO BID [facility] Last Admin: 08/09/18 12:31 Dose: 40 mg Guaifenesin/Dextromethorphan (Robitussin Dm) 5 ml PO Q4H PRN PRN Reason: Cough Levetiracetam (Keppra 1000mg/100ml Ns) 100 mls @ 460 mls/hr IV Q12 [facility] Last Admin: 08/03/18 09:12 Dose: 460 mls/hr Potassium Chloride (Potassium Chloride 10 Meq/100 Ml) 10 meq in 100 mls @ 50 mls/hr IVPB Q2H [facility] Stop: 08/09/18 15:44 Last Admin: 08/09/18 13:04 Dose: 50 mls/hr Phytonadione 10 mg/ Sodium (Chloride) 51 mls @ 100 mls/hr IV ONCE ONE Stop: 08/09/18 14:57 Lactulose (Enulose) 20 gm NG BID [facility] Last Admin: 08/09/18 09:22 Dose: 20 gm Metolazone (Zaroxolyn) 5 mg PO BID [facility] Last Admin: 08/09/18 09:22 Dose: Not Given Nadolol (Corgard) 20 mg PO DAILY [facility] Last Admin: 08/09/18 09:22 Dose: Not Given Pantoprazole Sodium (Protonix Inj) 40 mg IVP DAILY [facility] Last Admin: 08/09/18 09:22 Dose: 40 mg Potassium Chloride (Potassium Chloride Oral Soln) 20 meq PO BID [facility] Last Admin: 08/09/18 09:22 Dose: 20 meq Spironolactone (Aldactone) 100 mg PO DAILY [facility] Last Admin: 08/09/18 09:22 Dose: Not Given Vitamin A (Vitamin A&D) 1 applic TP Q8 PRN PRN Reason: Dry skin - Labs Labs: 08/09/18 08:57 08/09/18 08:57 PT 20.0 SECONDS (9.4-12.5) H 08/09/18 10:00 INR 1.72 08/09/18 10:00 APTT 29.1 Seconds (25.1-36.5) 08/04/18 06:35 - Constitutional Appears: Non-toxic, No Acute Distress - Head Exam Head Exam: ATRAUMATIC, NORMOCEPHALIC - Eye Exam Eye Exam: EOMI, PERRL. absent: Scleral icterus Pupil Exam: PERRL. absent: Miosis, Mydriatic - ENT Exam ENT Exam: Mucous Membranes Moist, Normal Oropharynx - Neck Exam Neck Exam: Full ROM, Normal Inspection - Respiratory Exam Respiratory Exam: Clear to Ausculation Bilateral. absent: Rales, Rhonchi, Whee zes - Cardiovascular Exam Cardiovascular Exam: RRR, +S1, +S2. absent: Gallop, Rubs - GI/Abdominal Exam GI & Abdominal Exam: Distended, Soft, Tenderness, Hypoactive Bowel Sounds. absent: Guarding, Rigid, Organomegaly, Rebound Additional comments: fluid wave present - Extremities Exam Extremities Exam: Normal Inspection. absent: Pedal Edema - Neurological Exam Neurological Exam: Alert, Awake - Psychiatric Exam Psychiatric exam: Normal Affect, Normal Mood - Skin Skin Exam: Dry, Intact, Normal Color, Warm Assessment and Plan - Assessment and Plan (Free Text) Assessment: 63 year old female with PMH of alcoholic cirrhosis, PUD, and CVA presenting with rectal bleeding. 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 -EGD 06/2015: large esophageal varices (banded), salmon-colored mucose suspicious for martinez's esophagus -colonoscopy 06/2015: single non-bleeding colonic angiodysplastic lesion in cecum, one 7mm polyp sigmoid colon, diverticulosis in sigmoid colon, internal hemorrhoids Plan: -08/09/18 MELD-Na 19 -ordered for therapeutic /diagnostic paracentesis with IR tomorrow -ordered 2 FFP and vitamin K 10mg once to correct coagulopathy -follow up on morning INR to re-assess -will hold Lasix 40mg BID and spironolactone 100mg daily tomorrow for paracentesis -Duplex U/S- no portal vein thrombosis -completed meropenem today for SBP PPx in initial setting o f GI bleed and cirrhosis -follow up paracentesis fluid analysis -continue nadolol 20mg daily -continue Lactulose, titrate to 2-3 BMs daily -low sodium diet -will follow clinical course <Jean-Claude Vernon V - Last Filed: 08/10/18 00:31> Objective - Vital Signs/Intake and Output Vital Signs (last 24 hours): Temp Pulse Resp BP Pulse Ox 99.6 F 96 H 18 116/73 94 L 08/09/18 22:00 08/09/18 22:00 08/09/18 22:00 08/09/18 22:00 08/09/18 22:00 - Medications Medications: Current Medications Furosemide (Lasix) 40 mg PO BID [facility] Last Admin: 08/09/18 17:19 Dose: 40 mg Guaifenesin/Dextromethorphan (Robitussin Dm) 5 ml PO Q4H PRN PRN Reason: Cough Last Admin: 08/09/18 17:20 Dose: 5 ml Levetiracetam (Keppra 1000mg/100ml Ns) 100 mls @ 460 mls/hr IV Q12 [facility] Last Admin: 08/03/18 09:12 Dose: 460 mls/hr Lactulose (Enulose) 20 gm NG BID [facility] Last Admin: 08/09/18 17:20 Dose: 20 gm Metolazone (Zaroxolyn) 5 mg PO BID [facility] Last Admin: 08/09/18 18:41 Dose: 5 mg Nadolol (Corgard) 20 mg PO DAILY [facility] Last Admin: 08/09/18 09:22 Dose: Not Given Pantoprazole Sodium (Protonix Inj) 40 mg IVP DAILY [facility] Last Admin: 08/09/18 09:22 Dose: 40 mg Potassium Chloride (Potassium Chloride Oral Soln) 20 meq PO BID [facility] Last Admin: 08/09/18 17:12 Dose: Not Given Spironolactone (Aldactone) 100 mg PO DAILY [facility] Last Admin: 08/09/18 09:22 Dose: Not Given Vitamin A (Vitamin A&D) 1 applic TP Q8 PRN PRN Reason: Dry skin - Labs Labs: 08/09/18 08:57 08/09/18 08:57 PT 20.0 SECONDS (9.4-12.5) H 08/09/18 10:00 INR 1.72 08/09/18 10:00 APTT 29.1 Seconds (25.1-36.5) 08/04/18 06:35 Attending/Attestation - Attestation I have personally seen and examined this patient.: Yes I have fully participated in the care of the patient.: Yes I have reviewed all pertinent clinical information, including history, physical exam and plan: Yes Notes (Text): This is an addendum to GI progress report dictated by the GI Fellow.The patient was seen and examined earlier. Medical records, lab studies, imagings were reviewed. Last 24 hours events reviewed. Agreed with the above treatment plan as outlined in GI Fellow 's notes with the addition of the following 08/10/18 00:30
[2018-08-09] MEDS: guaiFENesin DM 100 mg-10 mg/5 ml UD PO PRN (17:20)
--- NOTE | 2018-08-09 19:36 | PN ---
DATE: 08/09/2018 This is [facility] visit on the medical floor. For Dr. Medellin. SUBJECTIVE: The patient is a 63-year-old female looks older than her stated age, sitting up in the chair with family member at the bedside reporting that she is very swollen with the patient now status post colonoscopy as per Dr. Vernon with platelets and cryoprecipitate given in orders for the procedure to be completed. The patient suffers from esophageal varices, alcoholic cirrhosis with possible chronic DIC with the platelets continuing to improve with value of 67,000 earlier today. Upon review of her fluids, the patient's on a clear liquid diet, which was recommended to be advanced by gastroenterology fellow; however, orders were not placed to this effect with the patient's IV fluid was also noted 300 mL an hour of normal saline with a potassium rider being given with additional 20 mL an hour for a 1220 mL an hour. This was modified and corrected. Otherwise, the patient in no acute distress. PHYSICAL EXAMINATION VITAL SIGNS: Temperature of 98.5, pulse 77, respirations 20, blood pressure 88/51, and pulse ox 97%. HEENT: Mildly icteric sclerae. NECK: Supple. HEART: Regular rate, occasional ectopic beat. LUNGS: Minimal decreased breath sounds at the bases. ABDOMEN: Distended. Nontender. EXTREMITIES: +2 edema of the feet bilaterally. NEUROLOGIC: The patient is awake and alert. SKIN: Mild icteric tinge. LABORATORY DATA: White cell count of 5.9, hemoglobin of 8.6, positive due to hemodilution, hematocrit of 26.5, and platelet count of 67,000 with manual count of 82,000. The patient's metabolic panel showed a potassium of 3.0, which is now being replenished, nonfasting glucose of 124, total bilirubin of 4.2, AST of 87, T. bili of 5.6. Her INR is 1.72. The patient is not taking anticoagulation with gastroenterology fellow, now giving vitamin K for possible paracentesis tomorrow. ASSESSMENT: Assessment for this patient is that of sepsis, systemic inflammatory response syndrome, gastrointestinal bleed with significant anemia, thrombocytopenia, esophageal varices, abnormal INR, history of liver cirrhosis, ethanol abuse, status post respiratory failure with extubation, diverticulosis, hemorrhoids, questionable chronic DIC, anemia of chronic disease with pedal edema. PLAN: The plan for this patient is to continue present medical regimen. We will monitor clinically with labs with iron studies to be ordered for and continuation of present medical regimen with consideration for transfusion should be indicated. Also correction of her hypokaliemia. Her diet was advanced as per primary doctor along with discontinuation of her fluids. This is a complex patient with a comprehensive medically necessary and appropriate visit carried out in excess of 40 minutes with the patient's questions answered to her satisfaction. Edward Patterson MD
[2018-08-10 07:17] LABS: BASO # 0.04 K/mm3 (0.0-2.0); BASO % 0.8 % (0.0-3.0); EOS # 0.1 (0.0-0.7); EOS % 2.2 % (1.5-5.0); GRAN # 3.41 (1.4-6.5); HEMOGLOBIN 7.7 g/dL (12.0-16.0); LYMPH # 0.8 (1.2-3.4); LYMPH % 16.1 % (22.0-35.0); MEAN CELL VOLUME 93.8 fl (80.0-105.0); MEAN PLATELET VOLUME 9.9 fl (7.0-11.0); MONO # 0.7 (0.1-0.6); MONO % 12.9 % (1.0-6.0); RBC 2.57 10^6/uL (3.5-6.1); RED CELL DISTRIBUTION WIDTH 20.5 % (11.5-14.5)
[2018-08-10 07:34] LABS: INR 1.52; PROTHROMBIN TIME 17.6 SECONDS (9.4-12.5)
[2018-08-10 07:36] LABS: ALB/GLOB RATIO 0.7 (1.1-1.8); ALBUMIN 2.5 g/dL (3.0-4.8); ALT/SGPT 58 U/L (7-56); AST/SGOT 90 U/L (14-36); BLOOD UREA NITROGEN 11 mg/dL (7-21); CALCIUM 8.9 mg/dL (8.4-10.5); GFR NON-AFRICAN AMERICAN > 60
[2018-08-10] MEDS: metOLazone 5 MG TAB PO SCH ×2 (10:19→19:23)
[2018-08-10] MEDS: Potassium Chloride 20 mEq/15 ml LIQ UD PO SCH ×2 (10:19→19:23)
[2018-08-10] MEDS: guaiFENesin DM 100 mg-10 mg/5 ml UD PO PRN (10:33)
--- NOTE | 2018-08-10 11:57 | CP.PCM.PN ---
<Sp Li - Last Filed: 08/10/18 20:46> Subjective - Date & Time of Evaluation Date of Evaluation: 08/10/18 Time of Evaluation: 09:00 - Subjective Subjective: PGY-4 GI Fellow Prog Note Pt sitting up in bed eating breakfast when seen this AM. More alert than prior as able to state date other than the year. Eager for paracentesis later today. 5 point ROS negative other than stated above Objective - Vital Signs/Intake and Output Vital Signs (last 24 hours): Temp Pulse Resp BP Pulse Ox 98.6 F 84 18 98/59 L 96 08/10/18 07:00 08/10/18 10:20 08/10/18 07:00 08/10/18 10:20 08/10/18 07:00 - Medications Medications: Current Medications Furosemide (Lasix) 40 mg PO BID [facility] Last Admin: 08/10/18 10:20 Dose: 40 mg Guaifenesin/Dextromethorphan (Robitussin Dm) 5 ml PO Q4H PRN PRN Reason: Cough Last Admin: 08/10/18 10:33 Dose: 5 ml Levetiracetam (Keppra 1000mg/100ml Ns) 100 mls @ 460 mls/hr IV Q12 [facility] Last Admin: 08/03/18 09:12 Dose: 460 mls/hr Lactulose (Enulose) 20 gm NG BID [facility] Last Admin: 08/10/18 10:19 Dose: 20 gm Metolazone (Zaroxolyn) 5 mg PO BID [facility] Last Admin: 08/10/18 10:19 Dose: 5 mg Nadolol (Corgard) 20 mg PO DAILY [facility] Last Admin: 08/10/18 10:20 Dose: 20 mg Pantoprazole Sodium (Protonix Inj) 40 mg IVP DAILY [facility] Last Admin: 08/10/18 10:19 Dose: 40 mg Potassium Chloride (Potassium Chloride Oral Soln) 20 meq PO BID [facility] Last Admin: 08/10/18 10:19 Dose: 20 meq Spironolactone (Aldactone) 100 mg PO DAILY [facility] Last Admin: 08/10/18 10:20 Dose: 100 mg Vitamin A (Vitamin A&D) 1 applic TP Q8 PRN PRN Reason: Dry skin - Labs Labs: 08/10/18 07:00 08/10/18 07:00 PT 17.6 SECONDS (9.4-12.5) H 08/10/18 07:00 INR 1.52 08/10/18 07:00 APTT 29.1 Seconds (25.1-36.5) 08/04/18 06:35 - Constitutional Appears: No Acute Distress, Chronically Ill - Head Exam Head Exam: ATRAUMATIC, NORMAL INSPECTION - Eye Exam Eye Exam: EOMI, Scleral icterus - ENT Exam ENT Exam: Mucous Membranes Moist. absent: Mucous Membranes Dry - Respiratory Exam Respiratory Exam: NORMAL BREATHING PATTERN. absent: Accessory Muscle Use, Respiratory Distress - GI/Abdominal Exam GI & Abdominal Exam: Distended, Soft, Normal Bowel Sounds. absent: Bruit, Firm, Guarding, Rigid, Tenderness, Mass, Organomegaly, Pulsatile Mass, Rebound Additional comments: exam limited due to large vol ascites - Extremities Exam Extremities Exam: Pedal Edema. absent: Normal Inspection, Tenderness Assessment and Plan - Assessment and Plan (Free Text) Assessment: 63 y/o female with alcoholic cirrhosis, PUD admitted for rectal bleeding. # Hematochezia, acute blood loss anemia: Given unstable vitals, increase BUN, and h/o cirrhosis, upper source investigated emergently on 07/29/18 with EGD without signs of active nor recent bleed. Therefore, suspect related to lower source, possibly R sided pathology given dark red. Ongoing bleeding with positive bleeding scan with bleeding pooled in LUQ, CSPY on 07/31/18 to 110 without clear source but diffuse blood limiting view. IR consulted, Angio w/o active bleed # Decompensated EtOH Cirrhosis: MELD-Na 24 on admission. Sober at least 3 mon ths since CVA. - EV, PHG: Seen on EGD in 2014 s/p banding, small EV and PHG on 07/29/18 - Ascites: Plan to restart diuretics - HE: Lactulose - HCC: Overdue for screening # Chronic DIC: Hematology following. 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 No biopsies taken due to coagulopathy/hemodynamic instability. 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 No signs of bleeding. Needs outpatient EUS. # H/o Colonic AVM, Diverticulosis # H/o CVA, seizure -EGD 06/2015: large esophageal varices (banded), salmon-colored mucose suspicious for martinez's esophagus -Last CSPY 06/2015: single non-bleeding colonic angiodysplastic lesion in cecum, one 7mm polyp sigmoid colon, diverticulosis in sigmoid colon, internal hemorrhoids Plan: - Para today - Abd US+Doppler eval ascites and PVT negative - Cont diuretics - Cont nadolol - s/p abx for SBP ppx - PPI QD - Will need outpatient EGD+EUS to evaluate Martinez's and possible duodenal varix - Monitor CMP, CBC, INR - Low Na 2 g diet Pt seen and examined with Dr. Vernon; please see attestation for further recs/changes. <Jean-Claude Vernon V - Last Filed: 08/11/18 00:03> Objective - Vital Signs/Intake and Output Vital Signs (last 24 hours): Temp Pulse Resp BP Pulse Ox 98.7 F 77 18 90/48 L 96 08/10/18 22:44 08/10/18 22:44 08/10/18 22:44 08/10/18 22:44 08/10/18 22:44 Intake and Output: 08/10/18 08/11/18 18:59 06:59 Intake Total 540 Output Total 950 Balance -410 - Medications Medications: Current Medications Furosemide (Lasix) 40 mg PO BID [facility] Last Admin: 08/10/18 19:29 Dose: Not Given Guaifenesin/Dextromethorphan (Robitussin Dm) 5 ml PO Q4H PRN PRN Reason: Cough Last Admin: 08/10/18 10:33 Dose: 5 ml Levetiracetam (Keppra 1000mg/100ml Ns) 100 mls @ 460 mls/hr IV Q12 [facility] Last Admin: 08/03/18 09:12 Dose: 460 mls/hr Lactulose (Enulose) 20 gm NG BID [facility] Last Admin: 08/10/18 19:23 Dose: 20 gm Metolazone (Zaroxolyn) 5 mg PO BID [facility] Last Admin: 08/10/18 19:23 Dose: Not Given Nadolol (Corgard) 20 mg PO DAILY [facility] Last Admin: 08/10/18 10:20 Dose: 20 mg Pantoprazole Sodium (Protonix Inj) 40 mg IVP DAILY [facility] Last Admin: 08/10/18 10:19 Dose: 40 mg Potassium Chloride (Potassium Chloride Oral Soln) 20 meq PO BID [facility] Last Admin: 08/10/18 19:23 Dose: 20 meq Spironolactone (Aldactone) 100 mg PO DAILY [facility] Last Admin: 08/10/18 10:20 Dose: 100 mg Vitamin A (Vitamin A&D) 1 applic TP Q8 PRN PRN Reason: Dry skin - Labs Labs: 08/10/18 07:00 08/10/18 07:00 PT 17.6 SECONDS (9.4-12.5) H 08/10/18 07:00 INR 1.52 08/10/18 07:00 APTT 29.1 Seconds (25.1-36.5) 08/04/18 06:35
--- NOTE | 2018-08-10 12:45 | CP.PCM.PN ---
Subjective - Date & Time of Evaluation Date of Evaluation: 08/10/18 Time of Evaluation: 09:20 - Subjective Subjective: Comfortable, afebrile. For paracentesis today. Objective - Vital Signs/Intake and Output Vital Signs (last 24 hours): Temp Pulse Resp BP Pulse Ox 98.5 F 77 20 80/55 L 97 08/09/18 08:06 08/09/18 08:06 08/09/18 08:06 08/09/18 12:31 08/09/18 08:06 - Medications Medications: Current Medications Furosemide (Lasix) 40 mg PO BID [facility] Last Admin: 08/09/18 12:31 Dose: 40 mg Guaifenesin/Dextromethorphan (Robitussin Dm) 5 ml PO Q4H PRN PRN Reason: Cough Levetiracetam (Keppra 1000mg/100ml Ns) 100 mls @ 460 mls/hr IV Q12 [facility] Last Admin: 08/03/18 09:12 Dose: 460 mls/hr Potassium Chloride (Potassium Chloride 10 Meq/100 Ml) 10 meq in 100 mls @ 50 mls/hr IVPB Q2H [facility] Stop: 08/09/18 15:44 Last Admin: 08/09/18 13:04 Dose: 50 mls/hr Sodium Chloride (Sodium Chloride 0.9%) 1,000 mls @ 25 mls/hr IV .Q24H [facility] Last Admin: 08/09/18 13:19 Dose: 25 mls/hr Lactulose (Enulose) 20 gm NG BID [facility] Last Admin: 08/09/18 09:22 Dose: 20 gm Metolazone (Zaroxolyn) 5 mg PO BID [facility] Last Admin: 08/09/18 09:22 Dose: Not Given Nadolol (Corgard) 20 mg PO DAILY [facility] Last Admin: 08/09/18 09:22 Dose: Not Given Pantoprazole Sodium (Protonix Inj) 40 mg IVP DAILY [facility] Last Admin: 08/09/18 09:22 Dose: 40 mg Potassium Chloride (Potassium Chloride Oral Soln) 20 meq PO BID [facility] Last Admin: 08/09/18 09:22 Dose: 20 meq Spironolactone (Aldactone) 100 mg PO DAILY [facility] Last Admin: 08/09/18 09:22 Dose: Not Given Vitamin A (Vitamin A&D) 1 applic TP Q8 PRN PRN Reason: Dry skin - Labs Labs: 08/09/18 08:57 08/09/18 08:57 PT 20.0 SECONDS (9.4-12.5) H 08/09/18 10:00 INR 1.72 08/09/18 10:00 APTT 29.1 Seconds (25.1-36.5) 08/04/18 06:35 - Constitutional Appears: Chronically Ill - Head Exam Head Exam: NORMAL INSPECTION - Respiratory Exam Respiratory Exam: Decreased Breath Sounds - Cardiovascular Exam Cardiovascular Exam: +S1, +S2 - GI/Abdominal Exam GI & Abdominal Exam: Soft. absent: Tenderness Assessment and Plan - Assessment and Plan (Free Text) Plan: Assessment S/P SIRS S/P VDRF due to acute GI bleed with esophageal varices in this patient with liver cirrhosis from alcohol abuse history of systemic inflammatory response syndrome in this patient with acute left sided intra-cranial hemorrhage S/P ventilator-dependent respiratory failure, consider UTI due to Salmonella Group C history of treatment for HCAP hyperbilirubinemia probably related to chronic liver disease / liver cirrhosis ethanol abuse liver cirrhosis with esophageal varices S/P banding in 2014 arthritis history of spinal stenosis Plan completed course of Merrem and will continue to monitor clinically off antibiotics since she is at risk for nosocomial infections follow up findings on paracentesis
[2018-08-10 18:45] LABS: BODY FLUID TYPE PERITONEAL/ASCITES
--- NOTE | 2018-08-10 18:52 | US ---
PROCEDURE: Ultrasound guided paracentesis. HISTORY: Alcoholic cirrhosis new onset ascites with abdominal pain and distension. Needs diagnostic and therapeutic paracenteses PHYSICIAN(S): Matt Wong MD. TECHNIQUE: The relative risks and indications for the procedure were explained to the patient and informed written consent obtained. Sonography of the abdomen was performed in a supine position. This revealed a moderate amount of non-loculated ascites, greatest in the right lower quadrant. A puncture site was selected and the area was prepped and draped in the usual sterile fashion. 1% Xylocaine was used to anesthetize the skin and soft tissues. A 7 Sami paracentesis catheter was trocared into the right lower quadrantand 4500 cc of clear, straw-colored fluid aspirated. The appropriate labs were sent IMPRESSION: Ultrasound-guided paracentesis in the right lower quadrant. 4500 cc of clear straw-colored fluid was aspirated. Labs were sent
[2018-08-10 19:46] LABS: BF GROSS APPEARANCE CLEAR (CLEAR)
[2018-08-10 19:47] LABS: BODY FLUID TOTAL COUNT 100 (0-0)
[2018-08-11] MEDS: guaiFENesin DM 100 mg-10 mg/5 ml UD PO PRN ×2 (04:36→17:21)
[2018-08-11] MEDS: Potassium Chloride 20 mEq/15 ml LIQ UD PO SCH ×2 (09:13→17:17)
[2018-08-11] MEDS: metOLazone 5 MG TAB PO SCH ×2 (09:13→17:11)
--- NOTE | 2018-08-11 10:18 | CP.PCM.PN ---
Subjective - Date & Time of Evaluation Date of Evaluation: 08/11/18 Time of Evaluation: 10:06 - Subjective Subjective: PGY-2 heme/onc progress note for Dr Medellin Patient had paracentesis yesterday evening with 3500cc removed. Patient much more conversational today - stated she felt better after the paracentesis. Denied any further bleeding. Stated she felt weak but better than before. Stated she was taking ibuprofen prior to admission to treat headaches - stated she had a severe headache 2 days ago. Objective - Vital Signs/Intake and Output Vital Signs (last 24 hours): Temp Pulse Resp BP Pulse Ox 99 F 54 L 20 100/60 95 08/11/18 06:00 08/11/18 06:00 08/11/18 06:00 08/11/18 09:14 08/11/18 06:00 - Medications Medications: Current Medications Furosemide (Lasix) 40 mg PO BID [facility] Last Admin: 08/11/18 09:14 Dose: 40 mg Guaifenesin/Dextromethorphan (Robitussin Dm) 5 ml PO Q4H PRN PRN Reason: Cough Last Admin: 08/11/18 04:36 Dose: 5 ml Levetiracetam (Keppra 1000mg/100ml Ns) 100 mls @ 460 mls/hr IV Q12 [facility] Last Admin: 08/03/18 09:12 Dose: 460 mls/hr Lactulose (Enulose) 20 gm NG BID [facility] Last Admin: 08/10/18 19:23 Dose: 20 gm Metolazone (Zaroxolyn) 5 mg PO BID [facility] Last Admin: 08/11/18 09:13 Dose: Not Given Nadolol (Corgard) 20 mg PO DAILY [facility] Last Admin: 08/10/18 10:20 Dose: 20 mg Pantoprazole Sodium (Protonix Inj) 40 mg IVP DAILY [facility] Last Admin: 08/11/18 09:13 Dose: 40 mg Potassium Chloride (Potassium Chloride Oral Soln) 20 meq PO BID [facility] Last Admin: 08/11/18 09:13 Dose: 20 meq Spironolactone (Aldactone) 100 mg PO DAILY [facility] Last Admin: 08/11/18 09:13 Dose: 100 mg Vitamin A (Vitamin A&D) 1 applic TP Q8 PRN PRN Reason: Dry skin - Labs Labs: 08/10/18 07:00 08/10/18 07:00 PT 17.6 SECONDS (9.4-12.5) H 08/10/18 07:00 INR 1.52 08/10/18 07:00 APTT 29.1 Seconds (25.1-36.5) 08/04/18 06:35 - Additional Findings Additional findings: - Constitutional Appears: Well, Non-toxic, No Acute Distress, - Head Exam Head Exam: ATRAUMATIC, NORMAL INSPECTION, NORMOCEPHALIC - Eye Exam Eye Exam: PERRL - ENT Exam ENT Exam: Mucous Membranes Moist Additional comments: dentition poor - Respiratory Exam Respiratory Exam: + rhonchi b/l, NORMAL BREATHING PATTERN Additional comments: - Cardiovascular Exam Cardiovascular Exam: REGULAR RHYTHM, RRR - GI/Abdominal Exam GI & Abdominal Exam: Distended (mild), Soft, Hypoactive Bowel Sounds - Extremities Exam Extremities Exam: Normal Capillary Refill, Normal Inspection, Pedal Edema (+1/2) - Neurological Exam Additional comments: AAOx2 currently. - Skin Skin Exam: Dry, Intact, Normal Color Assessment and Plan - Assessment and Plan (Free Text) Plan: 63 year old female with past medical history of alcoholic cirrhosis, esophageal varices, PUD, spinal stenosis, arthritis, DJD, CVA, seizure, and osteoporosis presents with multiple episodes of bloody bowel movements. Pancytopenia -Patient's labs c/w possible chronic DIC -If evidence of bleeding would transfuse for plts <30 -Received 5 units pooled cryoprecipitate 08/03/18 and 08/05/18 -Repeat DIC panel * uptrending d-dimer, fibrinogen level and fibrin degradation productions -we will transfuse 1 bag platelets today 08/04/18 and collect cbc 1 hour after to see response * platelets improved from 28 to 26 after receiving 1 bag -we will transfuse 1 bag platelets today 08/06/18 and collect cbc 1 hour after to see response -Plan for CSPY on 08/07/18 * Goal plts > 50, INR < 2, Hgb > 7 for CSPY * order for 2 bags plts and cryoprecipitate 08/07/18 * results: dverticulosis in sigmoid colon and descending colon, internal hemorrhoids, exam was otherwise normal, no specimens collected GI Bleed -GI on board, Dr Saulo -upper source investigated emergently on 07/29/18 with EGD without signs of active nor recent bleed -Ongoing bleeding with positive bleeding scan with bleeding pooled in LUQ, CSPY on 07/31/18 to 110 without clear source but diffuse blood limiting view -Will need outpatient EGD+EUS to evaluate Sanchez's and possible duodenal varix -stated she was taking ibuprofen to treat her headaches for a few weeks prior to admission - spoke to PMD Dr Bass and recommended a neurologist consultation to recommend a good medication to treat her headache that won't affect her liver Ascites -s/p paracentesis 08/10/18 with 3500cc removed * wbc 35, rbc 19, total cell count 100, mono 89, poly 10, fluid yellow -s/p abx for SBP ppx Case discussed with Dr Christiano Medellin
--- NOTE | 2018-08-11 11:36 | HP ---
DATE OF EXAM: 08/11/2018 HISTORY OF PRESENT ILLNESS: The patient is a 63-year-old female who was admitted to the [facility] with bright red blood per rectum. The patient apparently went to the bathroom, noticed massive bloody bowel movement and therefore presented to the emergency room for evaluation. PAST MEDICAL HISTORY: The patient is known to have a past medical history positive for T7-T8 and C5-C6 discopathy she has alcoholic cirrhosis, esophageal varices, peptic ulcer disease. She is status post right hip replacement. She suffered intracerebral bleed x2 within the past 3 months. She did well at the subacute rehab facility after the above intracerebral bleed and had been doing well at home up until this episode. REVIEW OF SYSTEMS: She denies any abdominal pain, cramping. She denies any nausea or vomiting. SOCIAL HISTORY: She is . She never smoked. She has not had alcohol in the past several months. ALLERGIES: SHE IS KNOWN TO BE ALLERGIC TO PENICILLIN. MEDICATIONS: At the time of admission, she was taking metoprolol 25 mg daily, omeprazole 20 mg daily and tramadol 50 mg as needed for pain. PHYSICAL EXAMINATION: VITAL SIGNS: Her blood pressure is 92/56, heart rate is 90. She is afebrile. Examination of the head, eyes, ears, nose and throat: Are unremarkable. NECK: Supple with no lymphadenopathy. No goiter. LUNGS: Clear to auscultation and percussion. HEART: Regular. No murmurs are appreciated. ABDOMEN: Shows slight tenderness in the lower quadrants. Bowel sounds appear to be normal. RECTAL: Positive for dilip blood. EXTREMITIES: Free of cyanosis, clubbing or edema. NEUROLOGIC: The patient is awake, alert and oriented with no focal neurological signs. Her EKG shows normal sinus rhythm with prolonged QT interval. Chest x-ray shows no active disease. CT scan of the head shows no acute intracranial abnormalities. There is some cystic encephalomalacia in the left posterior parietal and anterior occipital lobe which is a sequelae of remote insults. Laboratory studies show the white blood cell count to be 10.8, hemoglobin and hematocrit is initially 8.5/25.9. This dropped to 5.3 and 16.0 by the following morning, platelet count is 89. The patient is known to have a history of alcoholic pancytopenia. Her serum chemistries are unremarkable. Sodium is 139, potassium 4.3, blood urea nitrogen 18, creatinine 0.8, glucose is 108, total bilirubin is 4.6, AST is 68, ALT is 32. So the patient is admitted with anemia, bright red blood per rectum, acute GI bleed and Dr. Vernon, the civilian jail officer and Dr. Brown, the general surgeon is called to consult. The patient will be reevaluated in the morning. Zane Bass MD
--- NOTE | 2018-08-11 11:43 | CP.PCM.PN ---
<Sp Li - Last Filed: 08/11/18 11:43> Subjective - Date & Time of Evaluation Date of Evaluation: 08/11/18 Time of Evaluation: 08:55 - Subjective Subjective: PGY-4 GI Fellow Prog Note Pt lying in bed when seen this AM. States she is feeling a little better after paracentesis yesterday. Tolerating diet and stooling without signs of bleeding. 5 point ROS negative other than stated above Objective - Vital Signs/Intake and Output Vital Signs (last 24 hours): Temp Pulse Resp BP Pulse Ox 99 F 54 L 20 100/60 95 08/11/18 06:00 08/11/18 06:00 08/11/18 06:00 08/11/18 09:14 08/11/18 06:00 - Medications Medications: Current Medications Furosemide (Lasix) 40 mg PO BID [facility] Last Admin: 08/11/18 09:14 Dose: 40 mg Guaifenesin/Dextromethorphan (Robitussin Dm) 5 ml PO Q4H PRN PRN Reason: Cough Last Admin: 08/11/18 04:36 Dose: 5 ml Levetiracetam (Keppra 1000mg/100ml Ns) 100 mls @ 460 mls/hr IV Q12 [facility] Last Admin: 08/03/18 09:12 Dose: 460 mls/hr Lactulose (Enulose) 20 gm NG BID [facility] Last Admin: 08/10/18 19:23 Dose: 20 gm Metolazone (Zaroxolyn) 5 mg PO BID [facility] Last Admin: 08/11/18 09:13 Dose: Not Given Nadolol (Corgard) 20 mg PO DAILY [facility] Last Admin: 08/10/18 10:20 Dose: 20 mg Pantoprazole Sodium (Protonix Inj) 40 mg IVP DAILY [facility] Last Admin: 08/11/18 09:13 Dose: 40 mg Potassium Chloride (Potassium Chloride Oral Soln) 20 meq PO BID [facility] Last Admin: 08/11/18 09:13 Dose: 20 meq Spironolactone (Aldactone) 100 mg PO DAILY [facility] Last Admin: 08/11/18 09:13 Dose: 100 mg Vitamin A (Vitamin A&D) 1 applic TP Q8 PRN PRN Reason: Dry skin - Labs Labs: 08/10/18 07:00 08/10/18 07:00 PT 17.6 SECONDS (9.4-12.5) H 08/10/18 07:00 INR 1.52 08/10/18 07:00 APTT 29.1 Seconds (25.1-36.5) 08/04/18 06:35 - Constitutional Appears: No Acute Distress, Chronically Ill - Head Exam Head Exam: ATRAUMATIC, NORMAL INSPECTION - ENT Exam ENT Exam: Mucous Membranes Dry. absent: Mucous Membranes Moist - Respiratory Exam Respiratory Exam: NORMAL BREATHING PATTERN. absent: Accessory Muscle Use, Respiratory Distress - GI/Abdominal Exam GI & Abdominal Exam: Distended, Soft, Normal Bowel Sounds. absent: Bruit, Firm, Guarding, Rigid, Tenderness, Mass, Organomegaly, Pulsatile Mass Assessment and Plan - Assessment and Plan (Free Text) Assessment: 63 y/o female with alcoholic cirrhosis, PUD admitted for rectal bleeding. # Hematochezia, acute blood loss anemia: Given unstable vitals, increase BUN, and h/o cirrhosis, upper source investigated emergently on 07/29/18 with EGD without signs of active nor recent bleed. Therefore, suspect related to lower source, possibly R sided pathology given dark red. Ongoing bleeding with positive bleeding scan with bleeding pooled in LUQ, CSPY on 07/31/18 to 110 without clear source but diffuse blood limiting view. IR consulted, Angio w/o active bleed # Decompensated EtOH Cirrhosis: MELD-Na 24 on admission. Sober at least 3 mon ths since CVA. - EV, PHG: Seen on EGD in 2014 s/p banding, small EV and PHG on 07/29/18 - Ascites: Plan to restart diuretics - HE: Lactulose - HCC: Overdue for screening # Chronic DIC: Hematology following. 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 No biopsies taken due to coagulopathy/hemodynamic instability. 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 No signs of bleeding. Needs outpatient EUS. # H/o Colonic AVM, Diverticulosis # H/o CVA, seizure -EGD 06/2015: large esophageal varices (banded), salmon-colored mucose suspicious for martinez's esophagus -Last CSPY 06/2015: single non-bleeding colonic angiodysplastic lesion in cecum, one 7mm polyp sigmoid colon, diverticulosis in sigmoid colon, internal hemorrhoids Plan: - Para 08/10 iwth 4.5 L removed, SBP negative - Abd US+Doppler eval ascites and PVT negative - Cont diuretics - Cont nadolol - s/p abx for SBP ppx - PPI QD - Will need outpatient EGD+EUS to evaluate Martinez's and possible duodenal varix - Monitor CMP, CBC, INR - Low Na 2 g diet Pt discussed with Dr. Vernon; please see attestation for further recs/changes. <Jean-Claude Vernon V - Last Filed: 08/11/18 23:08> Objective - Vital Signs/Intake and Output Vital Signs (last 24 hours): Temp Pulse Resp BP Pulse Ox 98.2 F 64 20 98/50 L 94 L 08/11/18 22:32 08/11/18 22:32 08/11/18 22:32 08/11/18 22:32 08/11/18 22:32 Intake and Output: 08/11/18 08/12/18 18:59 06:59 Intake Total 880 Output Total 800 Balance 80 - Medications Medications: Current Medications Furosemide (Lasix) 40 mg PO BID [facility] Last Admin: 08/11/18 17:12 Dose: Not Given Guaifenesin/Dextromethorphan (Robitussin Dm) 5 ml PO Q4H PRN PRN Reason: Cough Last Admin: 08/11/18 17:21 Dose: 5 ml Levetiracetam (Keppra 1000mg/100ml Ns) 100 mls @ 460 mls/hr IV Q12 [facility] Last Admin: 08/03/18 09:12 Dose: 460 mls/hr Lactulose (Enulose) 20 gm NG BID [facility] Last Admin: 08/11/18 17:18 Dose: 20 gm Metolazone (Zaroxolyn) 5 mg PO BID [facility] Last Admin: 08/11/18 17:11 Dose: Not Given Nadolol (Corgard) 20 mg PO DAILY [facility] Last Admin: 08/11/18 13:08 Dose: Not Given Pantoprazole Sodium (Protonix Inj) 40 mg IVP DAILY [facility] Last Admin: 08/11/18 09:13 Dose: 40 mg Potassium Chloride (Potassium Chloride Oral Soln) 20 meq PO BID [facility] Last Admin: 08/11/18 17:17 Dose: 20 meq Spironolactone (Aldactone) 100 mg PO DAILY [facility] Last Admin: 08/11/18 09:13 Dose: 100 mg Vitamin A (Vitamin A&D) 1 applic TP Q8 PRN PRN Reason: Dry skin - Labs Labs: 08/10/18 07:00 08/10/18 07:00 PT 17.6 SECONDS (9.4-12.5) H 08/10/18 07:00 INR 1.52 08/10/18 07:00 APTT 29.1 Seconds (25.1-36.5) 08/04/18 06:35 Attending/Attestation - Attestation I have personally seen and examined this patient.: Yes I have fully participated in the care of the patient.: Yes I have reviewed all pertinent clinical information, including history, physical exam and plan: Yes Notes (Text): This is an addendum to GI progress report dictated by the GI Fellow.The patient was seen and examined earlier. Medical records, lab studies, imagings were reviewed. Last 24 hours events reviewed. Agreed with the above treatment plan as outlined in GI Fellow 's notes with the addition of the follow sp large volume paracentesis Abdomen is still softly distended Restart the diuretics with close monitoring of electrolytes 08/11/18 23:08
--- NOTE | 2018-08-11 11:56 | PN ---
DATE: 08/10/2018 SUBJECTIVE: The patient is a 63-year-old female who was admitted on 07/28/2018 with acute GI bleed, bright red blood per rectum. She is known to have a history of esophageal varices, cirrhosis, alcoholic cirrhosis of the liver, alcoholic bone marrow suppression with pancytopenia. She is status post intracerebral bleed approximately 2-3 months ago. During her hospital stay, the patient has been followed by Dr. Goss and Dr. Jasso, the Infectious Disease specialist; Dr. Patterson and Dr. Medellin, the radiation oncology therapist; Dr. Vernon, the prescription benefit specialist; Dr. Brown, the general surgeon. To date, the patient received a total of 9 units of packed red blood cells, 6 units of fresh frozen plasma and 5 units of platelets. She underwent EGD earlier in her hospital stay. This was negative for bleeding. She decompensated in the recovery or decompensated during that procedure and was intubated for a few days in the Intensive Care Unit. She has since been extubated. She underwent colonoscopy, which showed diverticulosis throughout the colon. There is blood throughout the entire colon. The initial examination of the large intestine had to be canceled because of too much blood. The study was then repeated a few days later where no obvious source of bleeding was found. At this point, the patient is comfortable. She is; however, after her most recent colonoscopy, she suffered marked anasarca overnight, there was +2 edema of the arms and legs. There is also markedly distended abdomen with ascites. The patient was uncomfortable from this and the patient underwent paracentesis with Dr. Matt Wong today. This morning's laboratory showed the white blood cell count to be 5.0, hemoglobin and hematocrit are 7.7 and 24.1 respectively, platelet count is 60. Her total bilirubin is 3.2, AST and ALT are 90 and 58. This is been stable over the past several days, 136 is her sodium, potassium is 3.5, blood urea nitrogen is 11, creatinine 0.8. She is afebrile. The blood pressure is 98/59. The heart rate 84. She is known to have O+ type blood. The patient is to be continued to be followed closely. She will be reevaluated after her paracentesis. Zane Bass MD [facility] # [id number]
--- NOTE | 2018-08-11 14:18 | CP.PCM.PN ---
Subjective - Date & Time of Evaluation Date of Evaluation: 08/11/18 Time of Evaluation: 09:20 - Subjective Subjective: No fevers, not in distress. Objective - Vital Signs/Intake and Output Vital Signs (last 24 hours): Temp Pulse Resp BP Pulse Ox 98.6 F 84 18 98/59 L 96 08/10/18 07:00 08/10/18 10:20 08/10/18 07:00 08/10/18 10:20 08/10/18 07:00 - Medications Medications: Current Medications Furosemide (Lasix) 40 mg PO BID [facility] Last Admin: 08/10/18 10:20 Dose: 40 mg Guaifenesin/Dextromethorphan (Robitussin Dm) 5 ml PO Q4H PRN PRN Reason: Cough Last Admin: 08/10/18 10:33 Dose: 5 ml Levetiracetam (Keppra 1000mg/100ml Ns) 100 mls @ 460 mls/hr IV Q12 [facility] Last Admin: 08/03/18 09:12 Dose: 460 mls/hr Lactulose (Enulose) 20 gm NG BID [facility] Last Admin: 08/10/18 10:19 Dose: 20 gm Metolazone (Zaroxolyn) 5 mg PO BID [facility] Last Admin: 08/10/18 10:19 Dose: 5 mg Nadolol (Corgard) 20 mg PO DAILY [facility] Last Admin: 08/10/18 10:20 Dose: 20 mg Pantoprazole Sodium (Protonix Inj) 40 mg IVP DAILY [facility] Last Admin: 08/10/18 10:19 Dose: 40 mg Potassium Chloride (Potassium Chloride Oral Soln) 20 meq PO BID [facility] Last Admin: 08/10/18 10:19 Dose: 20 meq Spironolactone (Aldactone) 100 mg PO DAILY [facility] Last Admin: 08/10/18 10:20 Dose: 100 mg Vitamin A (Vitamin A&D) 1 applic TP Q8 PRN PRN Reason: Dry skin - Labs Labs: 08/10/18 07:00 08/10/18 07:00 PT 17.6 SECONDS (9.4-12.5) H 08/10/18 07:00 INR 1.52 08/10/18 07:00 APTT 29.1 Seconds (25.1-36.5) 08/04/18 06:35 - Constitutional Appears: Chronically Ill - Head Exam Head Exam: NORMAL INSPECTION - ENT Exam ENT Exam: Mucous Membranes Moist - Respiratory Exam Respiratory Exam: Decreased Breath Sounds - Cardiovascular Exam Cardiovascular Exam: +S1, +S2 - GI/Abdominal Exam GI & Abdominal Exam: Soft. absent: Tenderness Assessment and Plan - Assessment and Plan (Free Text) Plan: Assessment S/P SIRS S/P VDRF due to acute GI bleed with esophageal varices in this patient with liver cirrhosis from alcohol abuse history of systemic inflammatory response syndrome in this patient with acute left sided intra-cranial hemorrhage S/P ventilator-dependent respiratory failure, consider UTI due to Salmonella Group C history of treatment for HCAP hyperbilirubinemia probably related to chronic liver disease / liver cirrhosis ethanol abuse liver cirrhosis with esophageal varices S/P banding in 2014 arthritis history of spinal stenosis Plan completed course of Merrem and will continue to monitor clinically off antibiotics since she is at risk for hospital-acquired infections follow up findings on paracentesis
--- NOTE | 2018-08-11 23:35 | PN ---
DATE: 08/11/2018 SUBJECTIVE: The patient was seen this Friday, in room 571, bed 2. Resting comfortably in bed. Paracentesis was done yesterday from which the patient feels improvement. No discomfort. No abdominal pain. PHYSICAL EXAMINATION: GENERAL: She is awake, alert, clear and good spirits. Mental status is sharp and at baseline. LUNGS: Show good aeration, right and left. HEART: Not tachycardiac. ABDOMEN: Softer than reported before the paracentesis. Abdomen shows large ascites. It is quite protuberant. EXTREMITIES: Thin with significant muscle wasting of advanced liver disease. Has +4 soft pitting edema. PLAN: I have gatched the foot of the bed upward. Continue the diuretics. Tolerate a low blood pressure in view of the ongoing diuresis. Follow labs closely. Consider transitional care for additional physical therapy, but the patient is hoping for discharge to home soon. Abilio Bass MD [email or web address]
[2018-08-12] MEDS: guaiFENesin DM 100 mg-10 mg/5 ml UD PO PRN ×2 (05:46→09:30)
[2018-08-12 08:10] LABS: BASO # 0.03 K/mm3 (0.0-2.0); BASO % 0.5 % (0.0-3.0); EOS # 0.2 (0.0-0.7); EOS % 3.5 % (1.5-5.0); GRAN # 4.51 (1.4-6.5); GRAN % 69.3 % (50.0-68.0); HEMOGLOBIN 8.1 g/dL (12.0-16.0); LYMPH % 15.2 % (22.0-35.0); MEAN CELL VOLUME 93.8 fl (80.0-105.0); MEAN CORPUSCULAR HEMOGLOBIN 31.2 pg (25.0-35.0); MEAN CORPUSCULAR HGB CONC 33.2 g/dl (31.0-37.0); MEAN PLATELET VOLUME 9.8 fl (7.0-11.0); MONO # 0.8 (0.1-0.6); MONO % 11.5 % (1.0-6.0); RBC 2.6 10^6/uL (3.5-6.1); RED CELL DISTRIBUTION WIDTH 20.6 % (11.5-14.5); WHITE BLOOD COUNT 6.5 10^3/uL (4.5-11.0)
[2018-08-12 08:26] LABS: ALB/GLOB RATIO 0.7 (1.1-1.8); ALBUMIN 2.3 g/dL (3.0-4.8); ALT/SGPT 58 U/L (7-56); AST/SGOT 88 U/L (14-36); BLOOD UREA NITROGEN 10 mg/dL (7-21); CALCIUM 8.3 mg/dL (8.4-10.5); GFR NON-AFRICAN AMERICAN > 60
[2018-08-12] MEDS: Potassium Chloride 20 mEq/15 ml LIQ UD PO SCH ×2 (09:28→17:22)
[2018-08-12] MEDS: metOLazone 5 MG TAB PO SCH ×2 (09:29→17:23)
--- NOTE | 2018-08-12 14:19 | CP.PCM.PN ---
Subjective - Date & Time of Evaluation Date of Evaluation: 08/12/18 Time of Evaluation: 08:50 - Subjective Subjective: PGY-4 GI Fellow Prog Note Pt lying in bed when seen this AM. States she is doing well. Tolerating diet and reporting BMs. Eager for possible DC soon. 5 point ROS negative other than stated above Objective - Vital Signs/Intake and Output Vital Signs (last 24 hours): Temp Pulse Resp BP Pulse Ox 98.2 F 81 16 103/61 94 L 08/12/18 06:00 08/12/18 09:29 08/12/18 06:00 08/12/18 09:29 08/12/18 06:00 Intake and Output: 08/12/18 08/12/18 06:59 18:59 Intake Total 120 Balance 120 - Medications Medications: Current Medications Furosemide (Lasix) 40 mg PO BID [facility] Last Admin: 08/12/18 09:27 Dose: 40 mg Guaifenesin/Dextromethorphan (Robitussin Dm) 5 ml PO Q4H PRN PRN Reason: Cough Last Admin: 08/12/18 09:30 Dose: 5 ml Levetiracetam (Keppra 1000mg/100ml Ns) 100 mls @ 460 mls/hr IV Q12 [facility] Last Admin: 08/03/18 09:12 Dose: 460 mls/hr Lactulose (Enulose) 20 gm NG BID [facility] Last Admin: 08/12/18 09:27 Dose: 20 gm Metolazone (Zaroxolyn) 5 mg PO BID [facility] Last Admin: 08/12/18 09:29 Dose: 5 mg Nadolol (Corgard) 20 mg PO DAILY [facility] Last Admin: 08/12/18 09:29 Dose: 20 mg Pantoprazole Sodium (Protonix Inj) 40 mg IVP DAILY [facility] Last Admin: 08/12/18 09:28 Dose: 40 mg Potassium Chloride (Potassium Chloride Oral Soln) 20 meq PO BID [facility] Last Admin: 08/12/18 09:28 Dose: 20 meq Spironolactone (Aldactone) 100 mg PO DAILY [facility] Last Admin: 08/12/18 09:27 Dose: 100 mg Vitamin A (Vitamin A&D) 1 applic TP Q8 PRN PRN Reason: Dry skin - Labs Labs: 08/12/18 08:00 08/12/18 08:00 PT 17.6 SECONDS (9.4-12.5) H 08/10/18 07:00 INR 1.52 08/10/18 07:00 APTT 29.1 Seconds (25.1-36.5) 08/04/18 06:35 - Constitutional Appears: No Acute Distress, Chronically Ill - ENT Exam ENT Exam: Mucous Membranes Moist. absent: Mucous Membranes Dry - Respiratory Exam Respiratory Exam: NORMAL BREATHING PATTERN. absent: Accessory Muscle Use, Respiratory Distress - GI/Abdominal Exam GI & Abdominal Exam: Distended (mildly), Firm, Soft, Normal Bowel Sounds. absent: Bruit, Guarding, Rigid, Tenderness, Mass, Organomegaly, Pulsatile Mass Assessment and Plan - Assessment and Plan (Free Text) Assessment: 63 y/o female with alcoholic cirrhosis, PUD admitted for rectal bleeding. # Hematochezia, acute blood loss anemia: Given unstable vitals, increase BUN, and h/o cirrhosis, upper source investigated emergently on 07/29/18 with EGD without signs of active nor recent bleed. Therefore, suspect related to lower source, possibly R sided pathology given dark red. Ongoing bleeding with positive bleeding scan with bleeding pooled in LUQ, CSPY on 07/31/18 to 110 without clear source but diffuse blood limiting view. IR consulted, Angio w/o active bleed # Decompensated EtOH Cirrhosis: MELD-Na 24 on admission. Sober at least 3 months since CVA. - EV, PHG: Seen on EGD in 2014 s/p banding, small EV and PHG on 07/29/18 - Ascites: Plan to restart diuretics - HE: Lactulose - HCC: Overdue for screening # Chronic DIC: Hematology following. 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 No biopsies taken due to coa gulopathy/hemodynamic instability. 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 No signs of bleeding. Needs outpatient EUS. # H/o Colonic AVM, Diverticulosis # H/o CVA, seizure -EGD 06/2015: large esophageal varices (banded), salmon-colored mucose suspicious for martinez's esophagus -Last CSPY 06/2015: single non-bleeding colonic angiodysplastic lesion in cecum, one 7mm polyp sigmoid colon, diverticulosis in sigmoid colon, internal hemorrhoids Plan: - Para 08/10 iwth 4.5 L removed, SBP negative - Abd US+Doppler eval ascites and PVT negative - Cont diuretics - Cont nadolol - s/p abx for SBP ppx - PPI QD - Will need outpatient EGD+EUS to evaluate Martinez's and possible duodenal varix - Monitor CMP, CBC, INR - Low Na 2 g diet Pt discussed with Dr. Vernon; please see attestation for further recs/changes.
--- NOTE | 2018-08-12 16:58 | CP.PCM.PN ---
Subjective - Date & Time of Evaluation Date of Evaluation: 08/12/18 Time of Evaluation: 09:10 - Subjective Subjective: Comfortable, no fevers. Objective - Vital Signs/Intake and Output Vital Signs (last 24 hours): Temp Pulse Resp BP Pulse Ox 99 F 54 L 20 100/60 95 08/11/18 06:00 08/11/18 06:00 08/11/18 06:00 08/11/18 09:14 08/11/18 06:00 - Medications Medications: Current Medications Furosemide (Lasix) 40 mg PO BID [facility] Last Admin: 08/11/18 09:14 Dose: 40 mg Guaifenesin/Dextromethorphan (Robitussin Dm) 5 ml PO Q4H PRN PRN Reason: Cough Last Admin: 08/11/18 04:36 Dose: 5 ml Levetiracetam (Keppra 1000mg/100ml Ns) 100 mls @ 460 mls/hr IV Q12 [facility] Last Admin: 08/03/18 09:12 Dose: 460 mls/hr Lactulose (Enulose) 20 gm NG BID [facility] Last Admin: 08/10/18 19:23 Dose: 20 gm Metolazone (Zaroxolyn) 5 mg PO BID [facility] Last Admin: 08/11/18 09:13 Dose: Not Given Nadolol (Corgard) 20 mg PO DAILY [facility] Last Admin: 08/11/18 13:08 Dose: Not Given Pantoprazole Sodium (Protonix Inj) 40 mg IVP DAILY [facility] Last Admin: 08/11/18 09:13 Dose: 40 mg Potassium Chloride (Potassium Chloride Oral Soln) 20 meq PO BID [facility] Last Admin: 08/11/18 09:13 Dose: 20 meq Spironolactone (Aldactone) 100 mg PO DAILY [facility] Last Admin: 08/11/18 09:13 Dose: 100 mg Vitamin A (Vitamin A&D) 1 applic TP Q8 PRN PRN Reason: Dry skin - Labs Labs: 08/10/18 07:00 08/10/18 07:00 PT 17.6 SECONDS (9.4-12.5) H 08/10/18 07:00 INR 1.52 08/10/18 07:00 APTT 29.1 Seconds (25.1-36.5) 08/04/18 06:35 - Constitutional Appears: Chronically Ill - Head Exam Head Exam: NORMAL INSPECTION - Respiratory Exam Respiratory Exam: Decreased Breath Sounds - Cardiovascular Exam Cardiovascular Exam: +S1, +S2 - GI/Abdominal Exam GI & Abdominal Exam: Soft. absent: Tenderness Assessment and Plan - Assessment and Plan (Free Text) Plan: Assessment S/P SIRS S/P VDRF due to acute GI bleed with esophageal varices in this patient with liver cirrhosis from alcohol abuse history of systemic inflammatory response syndrome in this patient with acute left sided intra-cranial hemorrhage S/P ventilator-dependent respiratory failure, consider UTI due to Salmonella Group C history of treatment for HCAP hyperbilirubinemia probably related to chronic liver disease / liver cirrhosis ethanol abuse liver cirrhosis with esophageal varices S/P banding in 2015 arthritis history of spinal stenosis Plan completed course of Merrem and will continue to monitor clinically off antibiotics since she is at risk for healthcare-associated infections ascitic fluid cultures are negative
[2018-08-13] MEDS: Potassium Chloride 20 mEq/15 ml LIQ UD PO SCH ×2 (09:47→17:54)
[2018-08-13] MEDS: metOLazone 5 MG TAB PO SCH ×2 (09:47→17:54)
[2018-08-13] MEDS: guaiFENesin DM 100 mg-10 mg/5 ml UD PO PRN ×2 (09:47→18:31)
--- NOTE | 2018-08-13 14:40 | CP.PCM.PN ---
Subjective - Date & Time of Evaluation Date of Evaluation: 08/13/18 Time of Evaluation: 09:20 - Subjective Subjective: PGY-4 GI Fellow Prog Note Pt sleeping in bed when seen this AM. Woke to voice and stated she is doing well. Tolerating diet and stooling without signs of bleeding. 5 point ROS negative other than stated above Objective - Vital Signs/Intake and Output Vital Signs (last 24 hours): Temp Pulse Resp BP Pulse Ox 98.3 F 89 19 101/63 94 L 08/13/18 06:00 08/13/18 06:00 08/13/18 06:00 08/13/18 09:53 08/13/18 06:00 Intake and Output: 08/13/18 08/13/18 06:59 18:59 Intake Total 120 Output Total 200 Balance -80 - Medications Medications: Current Medications Furosemide (Lasix) 40 mg PO BID [facility] Last Admin: 08/13/18 09:53 Dose: 40 mg Guaifenesin/Dextromethorphan (Robitussin Dm) 5 ml PO Q4H PRN PRN Reason: Cough Last Admin: 08/13/18 09:47 Dose: 5 ml Levetiracetam (Keppra 1000mg/100ml Ns) 100 mls @ 460 mls/hr IV Q12 [facility] Last Admin: 08/03/18 09:12 Dose: 460 mls/hr Lactulose (Enulose) 20 gm NG BID [facility] Last Admin: 08/13/18 09:47 Dose: 20 gm Metolazone (Zaroxolyn) 5 mg PO BID [facility] Last Admin: 08/13/18 09:47 Dose: 5 mg Nadolol (Corgard) 20 mg PO DAILY [facility] Last Admin: 08/13/18 09:47 Dose: 20 mg Pantoprazole Sodium (Protonix Inj) 40 mg IVP DAILY [facility] Last Admin: 08/13/18 09:47 Dose: 40 mg Potassium Chloride (Potassium Chloride Oral Soln) 20 meq PO BID [facility] Last Admin: 08/13/18 09:47 Dose: 20 meq Spironolactone (Aldactone) 100 mg PO DAILY [facility] Last Admin: 08/13/18 09:47 Dose: 100 mg Vitamin A (Vitamin A&D) 1 applic TP Q8 PRN PRN Reason: Dry skin - Labs Labs: 08/12/18 08:00 08/12/18 08:00 PT 17.6 SECONDS (9.4-12.5) H 08/10/18 07:00 INR 1.52 08/10/18 07:00 APTT 29.1 Seconds (25.1-36.5) 08/04/18 06:35 - Constitutional Appears: Well, No Acute Distress, Chronically Ill - Head Exam Head Exam: ATRAUMATIC, NORMAL INSPECTION - ENT Exam ENT Exam: Mucous Membranes Moist. absent: Mucous Membranes Dry - Respiratory Exam Respiratory Exam: NORMAL BREATHING PATTERN. absent: Accessory Muscle Use, Respiratory Distress - GI/Abdominal Exam GI & Abdominal Exam: Distended, Soft, Normal Bowel Sounds. absent: Bruit, Firm, Guarding, Rigid, Tenderness, Mass, Organomegaly, Pulsatile Mass, Rebound Assessment and Plan - Assessment and Plan (Free Text) Assessment: 63 y/o female with alcoholic cirrhosis, PUD admitted for rectal bleeding. # Hematochezia, acute blood loss anemia: Given unstable vitals, increase BUN, and h/o cirrhosis, upper source investigated emergently on 07/29/18 with EGD without signs of active nor recent bleed. Therefore, suspect related to lower source, possibly R sided pathology given dark red. Ongoing bleeding with positive bleeding scan with bleeding pooled in LUQ, CSPY on 07/31/18 to 110 without clear source but diffuse blood limiting view. IR consulted, Angio w/o active bleed # Decompensated EtOH Cirrhosis: MELD-Na 24 on admission. Sober at least 3 months since CVA. - EV, PHG: Seen on EGD in 2014 s/p banding, small EV and PHG on 07/29/18 - Ascites: diuretics - HE: Lactulose - HCC: Overdue for screening # Chronic DIC: Hematology following. 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 No biopsies taken due to coagulopathy/hemodynamic instability. 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 No signs of bleeding. Needs outpatient EUS. # H/o Colonic AVM, Diverticulosis # H/o CVA, seizure -EGD 06/2015: large esophageal varices (banded), salmon-colored mucose suspicious for martinez's esophagus -Last CSPY 06/2015: single non-bleeding colonic angiodysplastic lesion in cecum, one 7mm polyp sigmoid colon, diverticulosis in sigmoid colon, internal hemorrhoids Plan: - Para 08/10 iwth 4.5 L removed, SBP negative - Abd US+Doppler eval ascites and PVT negative - Cont diuretics - Cont nadolol - s/p abx for SBP ppx - PPI QD - Will need outpatient EGD+EUS to evaluate Martinez's and possible duodenal varix - Monitor CMP, CBC, INR - Low Na 2 g diet Pt discussed with Dr. Vernon; please see attestation for further recs/changes.
--- NOTE | 2018-08-13 14:47 | CP.PCM.PN ---
Subjective - Date & Time of Evaluation Date of Evaluation: 08/13/18 Time of Evaluation: 10:05 - Subjective Subjective: Comfortable in bed, no fevers. Objective - Vital Signs/Intake and Output Vital Signs (last 24 hours): Temp Pulse Resp BP Pulse Ox 98.2 F 81 16 103/61 94 L 08/12/18 06:00 08/12/18 09:29 08/12/18 06:00 08/12/18 09:29 08/12/18 06:00 Intake and Output: 08/12/18 08/12/18 06:59 18:59 Intake Total 120 Balance 120 - Medications Medications: Current Medications Furosemide (Lasix) 40 mg PO BID [facility] Last Admin: 08/12/18 09:27 Dose: 40 mg Guaifenesin/Dextromethorphan (Robitussin Dm) 5 ml PO Q4H PRN PRN Reason: Cough Last Admin: 08/12/18 09:30 Dose: 5 ml Levetiracetam (Keppra 1000mg/100ml Ns) 100 mls @ 460 mls/hr IV Q12 [facility] Last Admin: 08/03/18 09:12 Dose: 460 mls/hr Lactulose (Enulose) 20 gm NG BID [facility] Last Admin: 08/12/18 09:27 Dose: 20 gm Metolazone (Zaroxolyn) 5 mg PO BID [facility] Last Admin: 08/12/18 09:29 Dose: 5 mg Nadolol (Corgard) 20 mg PO DAILY [facility] Last Admin: 08/12/18 09:29 Dose: 20 mg Pantoprazole Sodium (Protonix Inj) 40 mg IVP DAILY [facility] Last Admin: 08/12/18 09:28 Dose: 40 mg Potassium Chloride (Potassium Chloride Oral Soln) 20 meq PO BID [facility] Last Admin: 08/12/18 09:28 Dose: 20 meq Spironolactone (Aldactone) 100 mg PO DAILY [facility] Last Admin: 08/12/18 09:27 Dose: 100 mg Vitamin A (Vitamin A&D) 1 applic TP Q8 PRN PRN Reason: Dry skin - Labs Labs: 08/12/18 08:00 08/12/18 08:00 PT 17.6 SECONDS (9.4-12.5) H 08/10/18 07:00 INR 1.52 08/10/18 07:00 APTT 29.1 Seconds (25.1-36.5) 08/04/18 06:35 - Constitutional Appears: Chronically Ill - Head Exam Head Exam: NORMAL INSPECTION - Respiratory Exam Respiratory Exam: Decreased Breath Sounds - Cardiovascular Exam Cardiovascular Exam: +S1, +S2 - GI/Abdominal Exam GI & Abdominal Exam: Soft. absent: Tenderness Assessment and Plan - Assessment and Plan (Free Text) Plan: Assessment S/P SIRS S/P VDRF due to acute GI bleed with esophageal varices in this patient with liver cirrhosis from alcohol abuse history of systemic inflammatory response syndrome in this patient with acute left sided intra-cranial hemorrhage S/P ventilator-dependent respiratory failure, consider UTI due to Salmonella Group C history of treatment for HCAP hyperbilirubinemia probably related to chronic liver disease / liver cirrhosis ethanol abuse liver cirrhosis with esophageal varices S/P banding in 2014 arthritis history of spinal stenosis Plan completed course of Merrem and will continue to monitor clinically off antibiotics since she is at risk for nosocomial infections ascitic fluid cultures are negative
--- NOTE | 2018-08-13 15:07 | CP.PCM.PN ---
Subjective - Date & Time of Evaluation Date of Evaluation: 08/13/18 Time of Evaluation: 15:03 - Subjective Subjective: PGY-2 heme/onc progress note for Dr Medellin No acute events noted overnight. Patient complained of a headache after her colonoscopy - she stated that was her last headache. She denied any bleeding. She stated her BM's are still loose. Tolerating diet. Denied any pain, sob, abd pain, n/v. Objective - Vital Signs/Intake and Output Vital Signs (last 24 hours): Temp Pulse Resp BP Pulse Ox 98.3 F 89 19 101/63 94 L 08/13/18 06:00 08/13/18 06:00 08/13/18 06:00 08/13/18 09:53 08/13/18 06:00 Intake and Output: 08/13/18 08/13/18 06:59 18:59 Intake Total 120 Output Total 200 Balance -80 - Medications Medications: Current Medications Furosemide (Lasix) 40 mg PO BID [facility] Last Admin: 08/13/18 09:53 Dose: 40 mg Guaifenesin/Dextromethorphan (Robitussin Dm) 5 ml PO Q4H PRN PRN Reason: Cough Last Admin: 08/13/18 09:47 Dose: 5 ml Levetiracetam (Keppra 1000mg/100ml Ns) 100 mls @ 460 mls/hr IV Q12 [facility] Last Admin: 08/03/18 09:12 Dose: 460 mls/hr Lactulose (Enulose) 20 gm NG BID [facility] Last Admin: 08/13/18 09:47 Dose: 20 gm Metolazone (Zaroxolyn) 5 mg PO BID [facility] Last Admin: 08/13/18 09:47 Dose: 5 mg Nadolol (Corgard) 20 mg PO DAILY [facility] Last Admin: 08/13/18 09:47 Dose: 20 mg Pantoprazole Sodium (Protonix Inj) 40 mg IVP DAILY [facility] Last Admin: 08/13/18 09:47 Dose: 40 mg Potassium Chloride (Potassium Chloride Oral Soln) 20 meq PO BID [facility] Last Admin: 08/13/18 09:47 Dose: 20 meq Spironolactone (Aldactone) 100 mg PO DAILY [facility] Last Admin: 08/13/18 09:47 Dose: 100 mg Vitamin A (Vitamin A&D) 1 applic TP Q8 PRN PRN Reason: Dry skin - Labs Labs: 08/12/18 08:00 08/12/18 08:00 PT 17.6 SECONDS (9.4-12.5) H 08/10/18 07:00 INR 1.52 08/10/18 07:00 APTT 29.1 Seconds (25.1-36.5) 08/04/18 06:35 - Additional Findings Additional findings: - Constitutional Appears: Well, Non-toxic, No Acute Distress, - Head Exam Head Exam: ATRAUMATIC, NORMAL INSPECTION, NORMOCEPHALIC - Eye Exam Eye Exam: PERRL - ENT Exam ENT Exam: Mucous Membranes Moist Additional comments: dentition poor - Respiratory Exam Respiratory Exam: + rhonchi b/l, NORMAL BREATHING PATTERN Additional comments: - Cardiovascular Exam Cardiovascular Exam: REGULAR RHYTHM, RRR - GI/Abdominal Exam GI & Abdominal Exam: Distended (mild), Soft, Hypoactive Bowel Sounds - Extremities Exam Extremities Exam: Normal Capillary Refill, Normal Inspection, Pedal Edema (+1/2) - Neurological Exam Additional comments: AAOx3 currently. - Skin Skin Exam: Dry, Intact, Normal Color Assessment and Plan - Assessment and Plan (Free Text) Plan: 63 year old female with past medical history of alcoholic cirrhosis, esophageal varices, PUD, spinal stenosis, arthritis, DJD, CVA, seizure, and osteoporosis presents with multiple episodes of bloody bowel movements. Pancytopenia -Patient's labs c/w possible chronic DIC -If evidence of bleeding would transfuse for plts <30 -Received 5 units pooled cryoprecipitate 08/03/18 and 08/05/18 -Repeat DIC panel * uptrending d-dimer, fibrinogen level and fibrin degradation productions -we will transfuse 1 bag platelets today 08/04/18 and collect cbc 1 hour after to see response * platelets improved from 28 to 26 after receiving 1 bag -we will transfuse 1 bag platelets today 08/06/18 and collect cbc 1 hour after to see response -Plan for CSPY on 08/07/18 * Goal plts > 50, INR < 2, Hgb > 7 for CSPY * order for 2 bags plts and cryoprecipitate 08/07/18 * results: dverticulosis in sigmoid colon and descending colon, internal hemorrhoids, exam was otherwise normal, no specimens collected GI Bleed -GI on board, Dr Vernon -upper source investigated emergently on 07/29/18 with EGD without signs of active nor recent bleed -Ongoing bleeding with positive bleeding scan with bleeding pooled in LUQ, CSPY on 07/31/18 to 110 without clear source but diffuse blood limiting view -Will need outpatient EGD+EUS to evaluate Sanchez's and possible duodenal varix -stated she was taking ibuprofen to treat her headaches for a few weeks prior to admission - spoke to PMD Dr Bass and recommended a neurologist consultation to recommend a good medication to treat her headache that won't affect her liver Ascites -s/p paracentesis 08/10/18 with 3500cc removed * wbc 35, rbc 19, total cell count 100, mono 89, poly 10, fluid yellow -s/p abx for SBP ppx Recommendations: Patient to follow-up with Dr Medellin outpatient in 2 weeks and follow-up with GI Dr Vernon outpatient. It was reiterated to patient that she avoid NSAIDs at all costs going forward to treat her headaches - she was advised to take fiorcet. She acknowledged this. Case discussed with Dr Christiano Medellin
--- NOTE | 2018-08-13 15:56 | PN ---
DATE: 08/13/2018 HEMATOLOGY/ONCOLOGY PROGRESS NOTE LOCATION: The patient is in room 575, bed 1. SUBJECTIVE: The patient is being followed for sequestration thrombocytopenia related to her decompensated liver disease and splenomegaly along with liver dysfunction requiring multiple units of blood and platelets in the recent past related to GI bleeding. Subjectively, the patient is seen lying in bed. She is doing well, tolerating diet, and reporting bowel movements. REVIEW OF SYSTEMS: The patient denied any history of fevers, chills, nausea, vomiting, or diarrhea. PHYSICAL EXAMINATION: VITAL SIGNS: Stable. T-max is 98.2, pulse 81, respirations 16, blood pressure 103/61, pulse ox is 94%. GENERAL: The patient appears to be chronically ill. No significant distress. HEENT: Exam to the oropharynx revealed no oropharyngeal lesions. LUNGS: Clear to percussion and auscultation. ABDOMEN: Mildly distended, soft, nontender. No rebound, rigidity, or guarding is noted. No significant masses are felt. MEDICATIONS: The patient's medications were reviewed and she is on multiple medicines for her cirrhosis of liver including lactulose, nadolol, pantoprazole, spironolactone. LABORATORY DATA: Currently, her blood work seems to be holding. White count is 6.5, hemoglobin 8.1, hematocrit 24, and platelet count is 52,000. Electrolytes are within normal limits. PT/INR reveals an INR of 1.52, whole lot better than when she initially presented to the hospital. ASSESSMENT, NOTES, AND PLAN: A 63-year-old female with cirrhosis of the liver with liver dysfunction, recently admitted to the hospital with significant gastrointestinal bleed, hypofibrinogenemia requiring cryoprecipitate, platelet transfusion and significantly improved since then. There was a question whether the patient could have bleeding within the duodenum for which further testing was recommended, but the patient since then has stabilized. The patient's MELD (Model of End-stage Liver Disease) score is 24 on admission and has been stable now for the last week or so. The patient has not had any recent alcohol intake, especially since her subarachnoid hemorrhage that she had in 03/2018. The patient is on diuretics for her ascites and she is also on lactulose as well. The patient has chronic disseminated intravascular coagulation, probably related to her advanced cirrhosis of the liver, which is stable at this point. I had a detailed discussion with the patient, spoken to her family doctor as well in order to keep the platelet count up. One of the thoughts we had was to start the patient on a pill called Promacta when she gets stabilized as an outpatient. The patient may have ectopic bleeding from the duodenum for which she may need outpatient workup with endoscopic ultrasound as per GI, to continue to follow the patient and help her symptomatically. I will discuss my findings in detail with the patient as well. It may be possible that the patient has taken lot of non-steroidals in the form of ibuprofen because of headaches related to her prior central nervous system bleed and I made a recommendation to the patient that probably getting Neurology again on board to see a pill that has non-narcotic, non-steroidal medication may be of some value, if not trying a pill like Fioricet may not be an unreasonable option at this time. Routine post exam instructions have been given to the patient. Bijal Medellin MD
[2018-08-14] MEDS: guaiFENesin DM 100 mg-10 mg/5 ml UD PO PRN (06:28)
[2018-08-14 07:37] LABS: BASO # 0.04 K/mm3 (0.0-2.0); BASO % 0.8 % (0.0-3.0); EOS # 0.3 (0.0-0.7); EOS % 6.3 % (1.5-5.0); GRAN # 2.69 (1.4-6.5); GRAN % 52.5 % (50.0-68.0); LYMPH # 1.3 (1.2-3.4); LYMPH % 25.6 % (22.0-35.0); MEAN CELL VOLUME 93.1 fl (80.0-105.0); MEAN CORPUSCULAR HEMOGLOBIN 30.9 pg (25.0-35.0); MEAN CORPUSCULAR HGB CONC 33.2 g/dl (31.0-37.0); MEAN PLATELET VOLUME 9.4 fl (7.0-11.0); MONO # 0.8 (0.1-0.6); MONO % 14.8 % (1.0-6.0); RBC 2.59 10^6/uL (3.5-6.1); RED CELL DISTRIBUTION WIDTH 20.5 % (11.5-14.5); WHITE BLOOD COUNT 5.1 10^3/uL (4.5-11.0)
[2018-08-14 07:42] LABS: PLATELET COUNT 49 10^3/uL (120.0-450.0)
[2018-08-14 07:52] LABS: ALB/GLOB RATIO 0.6 (1.1-1.8); ALBUMIN 2.4 g/dL (3.0-4.8); ALT/SGPT 60 U/L (7-56); AST/SGOT 82 U/L (14-36); BLOOD UREA NITROGEN 12 mg/dL (7-21); CALCIUM 8.2 mg/dL (8.4-10.5); GFR NON-AFRICAN AMERICAN > 60
[2018-08-14 08:05] LABS: TOTAL PROTEIN PERITONEAL FLUID <3.0 g/dL
--- NOTE | 2018-08-14 08:10 | CP.PCM.PN ---
Subjective - Date & Time of Evaluation Date of Evaluation: 08/14/18 Time of Evaluation: 08:09 - Subjective Subjective: PGY-2 heme/onc progress note for Dr Medellin No acute events noted overnight. Patient AAOx3. Denies pain, cp, sob, abd pain, bleeding. Stated she is eager to go home. Objective - Vital Signs/Intake and Output Vital Signs (last 24 hours): Temp Pulse Resp BP Pulse Ox 98.9 F 71 18 91/50 L 94 L 08/14/18 06:00 08/14/18 06:00 08/14/18 06:00 08/14/18 06:00 08/14/18 06:00 Intake and Output: 08/14/18 08/14/18 06:59 18:59 Intake Total 240 Output Total 300 Balance -60 - Medications Medications: Current Medications Furosemide (Lasix) 40 mg PO BID [facility] Last Admin: 08/13/18 18:12 Dose: Not Given Guaifenesin/Dextromethorphan (Robitussin Dm) 5 ml PO Q4H PRN PRN Reason: Cough Last Admin: 08/14/18 06:28 Dose: 5 ml Levetiracetam (Keppra 1000mg/100ml Ns) 100 mls @ 460 mls/hr IV Q12 [facility] Last Admin: 08/03/18 09:12 Dose: 460 mls/hr Lactulose (Enulose) 20 gm NG BID [facility] Last Admin: 08/13/18 17:54 Dose: 20 gm Metolazone (Zaroxolyn) 5 mg PO BID [facility] Last Admin: 08/13/18 17:54 Dose: 5 mg Nadolol (Corgard) 20 mg PO DAILY [facility] Last Admin: 08/13/18 09:47 Dose: 20 mg Pantoprazole Sodium (Protonix Inj) 40 mg IVP DAILY [facility] Last Admin: 08/13/18 09:47 Dose: 40 mg Potassium Chloride (Potassium Chloride Oral Soln) 20 meq PO BID [facility] Last Admin: 08/13/18 17:54 Dose: 20 meq Spironolactone (Aldactone) 100 mg PO DAILY [facility] Last Admin: 08/13/18 09:47 Dose: 100 mg Vitamin A (Vitamin A&D) 1 applic TP Q8 PRN PRN Reason: Dry skin - Labs Labs: 08/14/18 07:20 08/14/18 07:20 PT 17.6 SECONDS (9.4-12.5) H 08/10/18 07:00 INR 1.52 08/10/18 07:00 APTT 29.1 Seconds (25.1-36.5) 08/04/18 06:35 - Additional Findings Additional findings: - Constitutional Appears: Well, Non-toxic, No Acute Distress, - Head Exam Head Exam: ATRAUMATIC, NORMAL INSPECTION, NORMOCEPHALIC - Eye Exam Eye Exam: PERRL - ENT Exam ENT Exam: Mucous Membranes Moist Additional comments: dentition poor - Respiratory Exam Respiratory Exam: + rhonchi b/l, NORMAL BREATHING PATTERN Additional comments: - Cardiovascular Exam Cardiovascular Exam: REGULAR RHYTHM, RRR - GI/Abdominal Exam GI & Abdominal Exam: Distended (mild), Soft, Hypoactive Bowel Sounds - Extremities Exam Extremities Exam: Normal Capillary Refill, Normal Inspection, Pedal Edema (+1/2) - Neurological Exam Additional comments: AAOx3 currently. - Skin Skin Exam: Dry, Intact, Normal Color Assessment and Plan - Assessment and Plan (Free Text) Plan: 63 year old female with past medical history of alcoholic cirrhosis, esophageal varices, PUD, spinal stenosis, arthritis, DJD, CVA, seizure, and osteoporosis presents with multiple episodes of bloody bowel movements. Pancytopenia -Patient's labs c/w possible chronic DIC -If evidence of bleeding would transfuse for plts <30 -Received 5 units pooled cryoprecipitate 08/03/18 and 08/05/18 -Repeat DIC panel * uptrending d-dimer, fibrinogen level and fibrin degradation productions -we will transfuse 1 bag platelets today 08/04/18 and collect cbc 1 hour after to see response * platelets improved from 28 to 26 after receiving 1 bag -we will transfuse 1 bag platelets today 08/06/18 and collect cbc 1 hour after to see response -Plan for CSPY on 08/07/18 * Goal plts > 50, INR < 2, Hgb > 7 for CSPY * order for 2 bags plts and cryoprecipitate 08/07/18 * results: dverticulosis in sigmoid colon and descending colon, internal hemorrhoids, exam was otherwise normal, no specimens collected GI Bleed -GI on board, Dr Vernon -upper source investigated emergently on 07/29/18 with EGD without signs of active nor recent bleed -Ongoing bleeding with positive bleeding scan with bleeding pooled in LUQ, CSPY on 07/31/18 to 110 without clear source but diffuse blood limiting view -Will need outpatient EGD+EUS to evaluate Sanchez's and possible duodenal varix -stated she was taking ibuprofen to treat her headaches for a few weeks prior to admission - spoke to PMD Dr Bass and recommended a neurologist consultation to recommend a good medication to treat her headache that won't affect her liver Ascites -s/p paracentesis 08/10/18 with 3500cc removed * wbc 35, rbc 19, total cell count 100, mono 89, poly 10, fluid yellow -s/p abx for SBP ppx Recommendations: Patient to follow-up with Dr Medellin outpatient in 2 weeks and follow-up with GI Dr Vernon outpatient. It was reiterated to patient that she avoid NSAIDs at all costs going forward to treat her headaches - she was advised to take fiorcet. She acknowledged this. Seen and discussed with Jany
[2018-08-14 08:15] LABS: PLATELET COUNT MANUAL 83 K/mm3 (120-450)
[2018-08-14] MEDS: Potassium Chloride 20 mEq/15 ml LIQ UD PO SCH ×2 (10:51→17:25)
[2018-08-14] MEDS: metOLazone 5 MG TAB PO SCH ×2 (10:51→11:01)
--- NOTE | 2018-08-14 14:08 | CP.PCM.PN ---
Subjective - Date & Time of Evaluation Date of Evaluation: 08/14/18 Time of Evaluation: 10:40 - Subjective Subjective: Comfortable, no fevers, not in distress. Objective - Vital Signs/Intake and Output Vital Signs (last 24 hours): Temp Pulse Resp BP Pulse Ox 98.3 F 89 19 101/63 94 L 08/13/18 06:00 08/13/18 06:00 08/13/18 06:00 08/13/18 09:53 08/13/18 06:00 Intake and Output: 08/13/18 08/13/18 06:59 18:59 Intake Total 120 Output Total 200 Balance -80 - Medications Medications: Current Medications Furosemide (Lasix) 40 mg PO BID [facility] Last Admin: 08/13/18 09:53 Dose: 40 mg Guaifenesin/Dextromethorphan (Robitussin Dm) 5 ml PO Q4H PRN PRN Reason: Cough Last Admin: 08/13/18 09:47 Dose: 5 ml Levetiracetam (Keppra 1000mg/100ml Ns) 100 mls @ 460 mls/hr IV Q12 [facility] Last Admin: 08/03/18 09:12 Dose: 460 mls/hr Lactulose (Enulose) 20 gm NG BID [facility] Last Admin: 08/13/18 09:47 Dose: 20 gm Metolazone (Zaroxolyn) 5 mg PO BID [facility] Last Admin: 08/13/18 09:47 Dose: 5 mg Nadolol (Corgard) 20 mg PO DAILY [facility] Last Admin: 08/13/18 09:47 Dose: 20 mg Pantoprazole Sodium (Protonix Inj) 40 mg IVP DAILY [facility] Last Admin: 08/13/18 09:47 Dose: 40 mg Potassium Chloride (Potassium Chloride Oral Soln) 20 meq PO BID [facility] Last Admin: 08/13/18 09:47 Dose: 20 meq Spironolactone (Aldactone) 100 mg PO DAILY [facility] Last Admin: 08/13/18 09:47 Dose: 100 mg Vitamin A (Vitamin A&D) 1 applic TP Q8 PRN PRN Reason: Dry skin - Labs Labs: 08/12/18 08:00 08/12/18 08:00 PT 17.6 SECONDS (9.4-12.5) H 08/10/18 07:00 INR 1.52 08/10/18 07:00 APTT 29.1 Seconds (25.1-36.5) 08/04/18 06:35 - Constitutional Appears: Chronically Ill - Head Exam Head Exam: NORMAL INSPECTION - Respiratory Exam Respiratory Exam: Decreased Breath Sounds - Cardiovascular Exam Cardiovascular Exam: +S1, +S2 - GI/Abdominal Exam GI & Abdominal Exam: Soft. absent: Tenderness Assessment and Plan - Assessment and Plan (Free Text) Plan: Assessment S/P SIRS S/P VDRF due to acute GI bleed with esophageal varices in this patient with liver cirrhosis from alcohol abuse history of systemic inflammatory response syndrome in this patient with acute left sided intra-cranial hemorrhage S/P ventilator-dependent respiratory failure, consider UTI due to Salmonella Group C history of treatment for HCAP hyperbilirubinemia probably related to chronic liver disease / liver cirrhosis ethanol abuse liver cirrhosis with esophageal varices S/P banding in 2014 arthritis history of spinal stenosis Plan completed course of Merrem and will continue to monitor clinically off antibiotics since she is at risk for hospital-acquired infections ascitic fluid cultures are negative
--- NOTE | 2018-08-14 15:40 | CP.PCM.PN ---
<Sp Li - Last Filed: 08/14/18 15:41> Subjective - Date & Time of Evaluation Date of Evaluation: 08/14/18 Time of Evaluation: 09:15 - Subjective Subjective: PGY-4 GI Fellow Prog Note Pt lying in bed when seen this AM. States she is doing well. Eating and stooling without signs of bleeding. Eager for possible DC. 5 point ROS negative other than stated above Objective - Vital Signs/Intake and Output Vital Signs (last 24 hours): Temp Pulse Resp BP Pulse Ox 98.9 F 86 18 88/54 L 99 08/14/18 14:00 08/14/18 14:00 08/14/18 14:00 08/14/18 14:00 08/14/18 14:00 Intake and Output: 08/14/18 08/14/18 06:59 18:59 Intake Total 240 Output Total 300 Balance -60 - Medications Medications: Current Medications Furosemide (Lasix) 40 mg PO BID [facility] Last Admin: 08/14/18 10:58 Dose: Not Given Levetiracetam (Keppra 1000mg/100ml Ns) 100 mls @ 460 mls/hr IV Q12 [facility] Last Admin: 08/03/18 09:12 Dose: 460 mls/hr Lactulose (Enulose) 20 gm NG BID [facility] Last Admin: 08/14/18 10:51 Dose: 20 gm Metolazone (Zaroxolyn) 5 mg PO BID [facility] Last Admin: 08/14/18 11:01 Dose: Not Given Nadolol (Corgard) 20 mg PO DAILY [facility] Last Admin: 08/14/18 10:58 Dose: Not Given Pantoprazole Sodium (Protonix Inj) 40 mg IVP DAILY [facility] Last Admin: 08/14/18 10:58 Dose: 40 mg Potassium Chloride (Potassium Chloride Oral Soln) 20 meq PO BID [facility] Last Admin: 08/14/18 10:51 Dose: 20 meq Spironolactone (Aldactone) 100 mg PO DAILY [facility] Last Admin: 08/14/18 10:59 Dose: Not Given Vitamin A (Vitamin A&D) 1 applic TP Q8 PRN PRN Reason: Dry skin - Labs Labs: 08/14/18 07:20 08/14/18 07:20 PT 17.6 SECONDS (9.4-12.5) H 08/10/18 07:00 INR 1.52 08/10/18 07:00 APTT 29.1 Seconds (25.1-36.5) 08/04/18 06:35 - Constitutional Appears: No Acute Distress, Chronically Ill - Head Exam Head Exam: ATRAUMATIC, NORMAL INSPECTION - Eye Exam Eye Exam: EOMI. absent: Scleral icterus - ENT Exam ENT Exam: Mucous Membranes Moist. absent: Mucous Membranes Dry - Respiratory Exam Respiratory Exam: NORMAL BREATHING PATTERN. absent: Accessory Muscle Use, Respiratory Distress - GI/Abdominal Exam GI & Abdominal Exam: Distended (mildly), Soft, Normal Bowel Sounds. absent: Bruit, Firm, Guarding, Rigid, Tenderness, Mass, Organomegaly Assessment and Plan - Assessment and Plan (Free Text) Assessment: 63 y/o female with alcoholic cirrhosis, PUD admitted for rectal bleeding. # Hematochezia, acute blood loss anemia: Given unstable vitals, increase BUN, and h/o cirrhosis, upper source investigated emergently on 07/29/18 with EGD without signs of active nor recent bleed. Therefore, suspect related to lower source, possibly R sided pathology given dark red. Ongoing bleeding with positive bleeding scan with bleeding pooled in LUQ, CSPY on 07/31/18 to 110 without clear source but diffuse blood limiting view. IR consulted, Angio w/o active bleed. # Decompensated EtOH Cirrhosis: MELD-Na 24 on admission. Sober at least 3 months since CVA. - EV, PHG: Seen on EGD in 2014 s/p banding, small EV and PHG on 07/29/18 - Ascites: diuretics. Para 08/10 with 4.5 L removed, SBP negative. Abd US+Doppler eval ascites and PVT negative - HE: Lactulose - HCC: Overdue for screening # Chronic DIC: Hematology following. 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 No biopsies taken due to coagulopathy/hemodynamic instability. 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 No signs of bleeding. Needs outpatient EUS. # H/o Colonic AVM, Diverticulosis # H/o CVA, seizure -EGD 06/2015: large esophageal varices (banded), salmon-colored mucose suspicious for martinez's esophagus -Last CSPY 06/2015: single non-bleeding colonic angiodysplastic lesion in cecum, one 7mm polyp sigmoid colon, diverticulosis in sigmoid colon, internal hemorrhoids Plan: - Cont diuretics, plan to titrate as OP - Cont nadolol - s/p Abx for SBP ppx - PPI QD - Will need outpatient EGD+EUS to evaluate Martinez's and possible duodenal varix - Monitor CMP, CBC, INR - Low Na 2 g diet Pt discussed with Dr. Vernon; please see attestation for further recs/changes. <Jean-Claude Vernon V - Last Filed: 08/14/18 22:35> Objective - Vital Signs/Intake and Output Vital Signs (last 24 hours): Temp Pulse Resp BP Pulse Ox 98.4 F 84 20 92/53 L 99 08/14/18 20:29 08/14/18 20:29 08/14/18 20:29 08/14/18 20:29 08/14/18 14:00 Intake and Output: 08/14/18 08/15/18 18:59 06:59 Intake Total 0 325 Balance 0 325 - Medications Medications: Current Medications Furosemide (Lasix) 40 mg PO BID [facility] Last Admin: 08/14/18 10:58 Dose: Not Given Levetiracetam (Keppra 1000mg/100ml Ns) 100 mls @ 460 mls/hr IV Q12 [facility] Last Admin: 08/03/18 09:12 Dose: 460 mls/hr Lactulose (Enulose) 20 gm NG BID [facility] Last Admin: 08/14/18 17:25 Dose: 20 gm Metolazone (Zaroxolyn) 5 mg PO BID [facility] Last Admin: 08/14/18 11:01 Dose: Not Given Nadolol (Corgard) 20 mg PO DAILY [facility] Last Admin: 08/14/18 10:58 Dose: Not Given Pantoprazole Sodium (Protonix Inj) 40 mg IVP DAILY [facility] Last Admin: 08/14/18 10:58 Dose: 40 mg Potassium Chloride (Potassium Chloride Oral Soln) 20 meq PO BID [facility] Last Admin: 08/14/18 17:25 Dose: 20 meq Spironolactone (Aldactone) 100 mg PO DAILY [facility] Last Admin: 08/14/18 10:59 Dose: Not Given Vitamin A (Vitamin A&D) 1 applic TP Q8 PRN PRN Reason: Dry skin - Labs Labs: 08/14/18 07:20 08/14/18 07:20 PT 17.6 SECONDS (9.4-12.5) H 08/10/18 07:00 INR 1.52 08/10/18 07:00 APTT 29.1 Seconds (25.1-36.5) 08/04/18 06:35 Attending/Attestation - Attestation I have personally seen and examined this patient.: Yes I have fully participated in the care of the patient.: Yes I have reviewed all pertinent clinical information, including history, physical exam and plan: Yes Notes (Text): This is an addendum to GI progress report dictated by the GI Fellow.The patient was seen and examined earlier. Medical records, lab studies, imagings were reviewed. Last 24 hours events reviewed. Agreed with the above treatment plan as outlined in GI Fellow 's notes with the addition of the following 08/14/18 22:35
--- NOTE | 2018-08-14 23:12 | PN ---
DATE: 08/14/2018 SUBJECTIVE: The patient was seen this Friday morning in room 575, bed 1. Resting comfortably in bed, in no acute distress. She said she is in out of bed, walking, ambulating with the physical therapist without difficulty. Her appetite has improved and her p.o. intake has improved after the paracentesis earlier this week. She continues on diuresis. PHYSICAL EXAMINATION: ABDOMEN: Large ascites remains. EXTREMITIES: With +1 to +2 soft pitting edema in both lower extremities up to the knees. ASSESSMENT AND PLAN: I spoke with the patient at length reviewing her condition and the severity of her liver disease, cirrhosis and large ascites. She understands although within several months when she has had a drink of alcohol, she wishes it has been longer and not been in this predicament. She seems to understand the seriousness and the gravity of the prognosis, so hoping to discharge home soon and early. Unfortunately, her hemoglobin this morning was 8, therefore we will transfuse 1 unit of packed red cells today. This will certainly help with oncotic pressure and reduce the edema as well. I will check the complete blood cell count tomorrow morning, and hopefully she will be ready for discharge to home then. Abilio Bass MD
[2018-08-15 08:03] LABS: BASO # 0.04 K/mm3 (0.0-2.0); BASO % 0.9 % (0.0-3.0); EOS # 0.3 (0.0-0.7); HEMOGLOBIN 9.1 g/dL (12.0-16.0); LYMPH # 1.1 (1.2-3.4); LYMPH % 23.9 % (22.0-35.0); MEAN CORPUSCULAR HEMOGLOBIN 30.3 pg (25.0-35.0); MEAN PLATELET VOLUME 9.7 fl (7.0-11.0); MONO # 0.8 (0.1-0.6); MONO % 16.2 % (1.0-6.0); RED CELL DISTRIBUTION WIDTH 19.2 % (11.5-14.5); WHITE BLOOD COUNT 4.6 10^3/uL (4.5-11.0)
[2018-08-15 08:09] VITALS: PULSE 90; RESP 18; TEMP 98.5; O2SAT 92
[2018-08-15 08:27] LABS: ALB/GLOB RATIO 0.6 (1.1-1.8); ALBUMIN 2.4 g/dL (3.0-4.8); ALT/SGPT 56 U/L (7-56); AST/SGOT 79 U/L (14-36); BLOOD UREA NITROGEN 13 mg/dL (7-21); GFR NON-AFRICAN AMERICAN > 60
[2018-08-15] MEDS: Potassium Chloride 20 mEq/15 ml LIQ UD PO SCH (11:15)
[2018-08-15 11:24] VITALS: BP 93/58
[2018-08-15] MEDS: metOLazone 5 MG TAB PO SCH (11:24)
--- NOTE | 2018-08-15 16:52 | PN ---
DATE: 08/15/2018 SUBJECTIVE: The patient is in bed in no acute distress, answering questions. OBJECTIVE: VITAL SIGNS: Temperature of 98, blood pressure is 94/50, respiratory rate of 18, heart rate of 84. HEENT: Unremarkable. NECK: Supple. LUNGS: Have decreased breath sounds. HEART: Normal S1, S2. ABDOMEN: Soft. LABORATORY EXAMINATION: Reveals a white count of 4.6, hemoglobin of 9. Chemistries reveals a BUN of 13, creatinine of 0.7. Microbiology is noted. ASSESSMENT AND PLAN: This is a 63-year-old with status post systemic inflammatory response syndrome status post vent dependent respiratory failure due to acute gastrointestinal bleed, esophageal varices and patient with liver cirrhosis, alcohol abuse and has completed a course of meropenem, currently off of antibiotics and the patient is at risk for developing nosocomial infections. Yunior Jasso MD
== END 2018-08-15 12:56 | disposition home or self-care (01) | DRG 377 ==
LOC: ED 15:04 → ERH 16:55 → 5RNO 21:43 → CCU 07-29 10:58 → 5RSO 08-06 01:44
PROVIDERS: ADMIT Internal Medicine; ATTEND Internal Medicine
PROC: 0DJ08ZZ Inspection of Upper Intestinal Tract, Via Natural or Artificial Opening Endoscopic (ICD-10-PCS; 2018-07-29)
PROC: 05HM33Z Insertion of Infusion Device into Right Internal Jugular Vein, Percutaneous Approach (ICD-10-PCS; 2018-07-29)
PROC: B543ZZA Ultrasonography of Right Jugular Veins, Guidance (ICD-10-PCS; 2018-07-29)
PROC: 30233K1 Transfusion of Nonautologous Frozen Plasma into Peripheral Vein, Percutaneous Approach (ICD-10-PCS; 2018-07-29)
PROC: 30233N1 Transfusion of Nonautologous Red Blood Cells into Peripheral Vein, Percutaneous Approach (ICD-10-PCS; 2018-07-29)
PROC: 30233M1 Transfusion of Nonautologous Plasma Cryoprecipitate into Peripheral Vein, Percutaneous Approach (ICD-10-PCS; 2018-07-29)
PROC: 0BH17EZ Insertion of Endotracheal Airway into Trachea, Via Natural or Artificial Opening (ICD-10-PCS; 2018-07-31)
PROC: 0DJD8ZZ Inspection of Lower Intestinal Tract, Via Natural or Artificial Opening Endoscopic (ICD-10-PCS; 2018-07-31)
PROC: B415YZZ Fluoroscopy of Inferior Mesenteric Artery using Other Contrast (ICD-10-PCS; 2018-07-31)
PROC: B414YZZ Fluoroscopy of Superior Mesenteric Artery using Other Contrast (ICD-10-PCS; 2018-07-31)
PROC: 5A1945Z Respiratory Ventilation, 24-96 Consecutive Hours (ICD-10-PCS; principal; 2018-07-31 13:45)
PROC: 30233R1 Transfusion of Nonautologous Platelets into Peripheral Vein, Percutaneous Approach (ICD-10-PCS; 2018-08-01)
PROC: 0DJD8ZZ Inspection of Lower Intestinal Tract, Via Natural or Artificial Opening Endoscopic (ICD-10-PCS; 2018-08-07)
PROC: 0W9G3ZX Drainage of Peritoneal Cavity, Percutaneous Approach, Diagnostic (ICD-10-PCS; 2018-08-10)
DX: K92.1 Melena (principal); J96.91 Respiratory failure, unspecified with hypoxia; D65 Disseminated intravascular coagulation [defibrination syndrome]; D62 Acute posthemorrhagic anemia; K76.6 Portal hypertension; D68.4 Acquired coagulation factor deficiency; D61.818 Other pancytopenia; R65.10 Systemic inflammatory response syndrome (SIRS) of non-infectious origin without acute organ dysfunction; I69.351 Hemiplegia and hemiparesis following cerebral infarction affecting right dominant side; K70.31 Alcoholic cirrhosis of liver with ascites; I85.10 Secondary esophageal varices without bleeding; K22.70 Barrett's esophagus without dysplasia; K31.89 Other diseases of stomach and duodenum; K44.9 Diaphragmatic hernia without obstruction or gangrene; I86.8 Varicose veins of other specified sites; K72.90 Hepatic failure, unspecified without coma; K57.30 Diverticulosis of large intestine without perforation or abscess without bleeding; K64.8 Other hemorrhoids; E87.6 Hypokalemia; F10.10 Alcohol abuse, uncomplicated; K55.20 Angiodysplasia of colon without hemorrhage; G40.909 Epilepsy, unspecified, not intractable, without status epilepticus; M81.0 Age-related osteoporosis without current pathological fracture; K64.4 Residual hemorrhoidal skin tags; Z96.641 Presence of right artificial hip joint; M19.90 Unspecified osteoarthritis, unspecified site; Z87.891 Personal history of nicotine dependence; Z88.0 Allergy status to penicillin; Z87.11 Personal history of peptic ulcer disease